=== PATIENT | female | born 1955 | race Caucasian/White ===

== ENCOUNTER 2019-11-19 15:23 | Inpatient (IN) | payer BC, OTHER ==
--- OUTSIDE RECORDS SUMMARY | 2019-11-19 16:09 | XMS REPORT | Continuity of Care Document ---
:1955 Author Organization [facility] Care Team Providers Name Role Phone [facility] Unavailable Un available Problems Problem Status Onset Classification Date Comments Sourc e Date Reported Unilateral primary 04/11/2019 [facility] osteoarthritis, left 019 knee Other enthesopathy of 05/19/2017 [facility] right foot 017 Type 2 diabetes Active Problem 01/11/2019 NE Primary mellitus without Car [facility]oc complications Depressive disorder, Active Problem 01/11/2019 NE Primary not elsewhere Care A ssoc classified Chronic obstructive Active Problem 01/11/2019 NE Primary pulmonary disease, C are Assoc unspecified Female stress Active Problem 01/11/2019 NE Pr imary incontinence Care As soc Anxiety disorder, Active Problem 01/11/2019 N E Primary unspecified Care Ass oc Vitamin D deficiency Active Problem 01/11/2019 NE Primary [facility] Major depressive Active Problem 01/11/2019 NE Primary disorder, single Car e Assoc episode, unspecified Adjustment disorder Active Problem 01/11/2019 NE Primary with depressed mood Care Assoc Morbid (severe) Active Problem 01/11/2019 NE Primary obesity due to excess Care Assoc calories Essential (primary) Active Problem 01/11/2019 NE Primary hypertension Care [facility] Neuropathy Active Problem 01/11/2019 NE Prima ry Care Assoc Esophageal reflux Active Problem 01/11/2019 N E Primary Care [facility] Mixed hyperlipidemia Active Problem 01/11/2019 NE Primary [facility] Hypothyroidism, Active Problem 01/11/2019 NE Primary unspecified Care Ass oc Hypothyroidism Active Problem 01/11/2019 NE P rimary Care Assoc Stress incontinence in Active Problem 01/11/2019 NE Primary female Care Assoc OA (osteoarthritis) Active Problem 01/11/2019 NE Primary [facility] Obesity, unspecified Active Problem 01/11/2019 NE Primary obesity severity, Ca re Assoc unspecified obesity type Morbid obesity due to Active Problem 01/11/2019 NE Primary excess calories Care Assoc Morbid obesity Active Problem 01/11/2019 NE P rimary Care [facility]oc Ischemic heart disease Active Problem 01/11/2019 NE Primary [facility] Type II or unspecified Active Problem 01/11/2019 NE Primary type diabetes mellitus Care Assoc without mention of complication, not stated as uncontrolled Benign essential Active Problem 01/11/2019 NE Primary hypertension Care [facility] Polyosteoarthritis, Active Problem 01/11/2019 NE Primary unspecified Care Ass oc Gastro-esophageal Active Problem 01/11/2019 N E Primary reflux disease without Care Assoc esophagitis Other specified Active Problem 01/11/2019 NE Primary hypothyroidism Care Assoc Constipation, Active Problem 01/11/2019 NE Pr imary unspecified Care Ass oc Other specified Active Problem 01/11/2019 NE Primary diabetes mellitus Ca re Assoc without complications Mixed incontinence Active Problem 01/11/2019 NE Primary urge and stress Care Assoc Age-related Active Problem 01/11/2019 NE Prim rekha osteoporosis without Care Assoc current pathological fracture Anxiety Active Problem 01/11/2019 NE Primar y Care Assoc Chronic obstructive Active Problem 01/11/2019 NE Primary pulmonary disease, C are Assoc unspecified COPD type Chronic constipation Active Problem 01/11/2019 NE Primary [facility] Other chronic pain Active Problem 01/11/2019 NE Primary Care [facility] Simple chronic Active Problem 01/11/2019 NE P rimary bronchitis [facility] As[facility] Allergic rhinitis due Active Problem 01/11/2019 NE Primary to pollen Care Assoc Chronic idiopathic Active Problem 01/11/2019 NE Primary constipation Care As soc Pure Active Problem 01/11/2019 NE Primar y hypercholesterolemia, Care Assoc unspecified Vitamin D deficiency, Active Problem 01/11/2019 NE Primary unspecified Care Ass [facility] Venous insufficiency Active Problem 01/11/2019 NE Primary [facility] Screening for Active Diagnosis 03/18/2017 NE Pr imary osteoporosis Care As soc Breast cancer Active Diagnosis 03/18/2017 NE Pr imary screening Care Assoc Dysuria Active Diagnosis 10/02/2018 NE Primar y Care [facility]oc Osteopenia of spine Active Diagnosis 07/07/2017 NE Primary [facility] Familial Active Problem 01/11/2019 NE Primar y hypercholesterolemia Care Assoc Disorder of bone, Active Diagnosis 03/18/2017 N E Primary unspecified Care Ass oc Osteoarthritis of both Active Problem 01/11/2019 NE Primary knees, unspecified C are Assoc osteoarthritis type Drug-induced Active Diagnosis 10/02/2018 NE Dori roberto constipation Care As [facility] Pain in left knee Active Diagnosis 12/29/2017 N E Primary Care [facility] Right foot pain Active Diagnosis 06/08/2017 NE Primary [facility] Need for shingles Active Diagnosis 05/15/2017 N E Primary vaccine Care Assoc Low back pain Active Diagnosis 05/06/2017 NE Pr imary Care Assoc Coronary artery Active Problem 01/11/2019 NE Primary disease involving Ca re Assoc [place] coronary artery of [place] heart without angina pectoris Slow transit Active Problem 01/11/2019 NE Dori roberto constipation Care [facility] Other secondary Active Diagnosis 11/22/2017 NE Primary osteoarthritis of both Care Assoc knees Osteopenia of lumbar Active Diagnosis 10/02/2018 NE Primary spine Care [facility] Suicide attempt Active Diagnosis 12/08/2017 NE Primary [facility] Aspiration pneumonia Active Diagnosis 11/22/2017 NE Primary due to vomit, Care A ssoc unspecified laterality, unspecified part of lung Adjustment insomnia Active Diagnosis 02/11/2018 NE Primary [facility] Gastroesophageal Active Problem 01/11/2019 NE Primary reflux disease without Care [facility] esophagitis Other constipation Active Diagnosis 11/22/2017 NE Primary [facility] Urge incontinence of Active Problem 01/11/2019 NE Primary urine Care [facility] PAD (peripheral artery Active Problem 01/11/2019 NE Primary disease) Care [facility] Acquired Active Problem 01/11/2019 NE Primar y hypothyroidism Care Assoc Urge incontinence Active Diagnosis 01/11/2019 N E Primary [facility] Pain in right knee Active Diagnosis 12/29/2017 NE Primary [facility] Hand, foot and mouth Active Diagnosis 09/26/2017 NE Primary disease Care Assoc NERY (obstructive sleep Active Problem 01/11/2019 NE Primary apnea) Care Assoc Spondylosis of Active Diagnosis 02/23/2018 NE P rimary lumbosacral region C are Assoc without myelopathy or radiculopathy Unspecified vitamin D Active Problem 06/30/2015 NE Primary deficiency [facility] As[facility] c Mixed hyperlipidemia Active Problem 06/30/2015 NE Primary Care [facility] Unspecified Active Problem 06/30/2015 NE Prim rekha hypothyroidism Care Assoc Depressive disorder, Active Problem 06/30/2015 NE Primary not elsewhere Care A ssoc classified incontinence Female Active Problem 06/30/2015 NE Primary stress Care Assoc Pure Active Problem 06/30/2015 NE Primar y hypercholesterolemia Care Assoc Diabetes mellitus Active Problem 06/30/2015 N E Primary without mention of C are Assoc complication, type II or unspecified type, uncontrolled Diabetes mellitus Active Problem 06/30/2015 N E Primary without mention of C are Assoc complication, type II or unspecified type, not stated as uncontrolled Esophageal reflux Active Problem 06/30/2015 N E Primary Care [facility] Morbid obesity Active Problem 06/30/2015 NE P rimary Care Assoc Hypertension benign Active Problem 06/30/2015 NE Primary [facility] Anxiety state, Active Diagnosis 10/24/2013 NE P rimary unspecified Care Ass oc Unspecified Active Diagnosis 10/24/2013 NE Prim rekha constipation Care As soc Urge incontinence Active Diagnosis 07/24/2014 N E Primary Care [facility] Obesity, unspecified Active Diagnosis 10/24/2013 NE Primary [facility] Other specified Active Diagnosis 02/18/2015 NE Primary acquired Care [facility] hypothyroidism Hypercholesterolemia Active Diagnosis 12/02/2013 NE Primary [facility] Reflux esophagitis Active Diagnosis 12/31/2013 NE Primary [facility] Obesity (BMI Active Diagnosis 01/21/2015 NE Dori mejia 30.0-34.9) Care Asso c Allergic rhinitis due Active Diagnosis 12/31/2013 NE Primary to pollen Care Assoc HTN (hypertension), Active Diagnosis 12/02/2013 NE Primary benign Care [facility]oc Depressed Active Diagnosis 12/31/2013 NE Primar y Care Assoc Depression Active Diagnosis 02/18/2015 NE Prima ry Care [facility]oc Anxiety Active Diagnosis 03/31/2014 NE Primar y Care Assoc Diabetes Active Diagnosis 01/15/2014 NE Primar y Care [facility] Benign hypertension Active Diagnosis 01/15/2014 NE Primary [facility] Cervicalgia Active Diagnosis 01/21/2015 NE Prim rekha Care Assoc GERD (gastroesophageal Active Diagnosis 02/18/2015 NE Primary reflux disease) Care Assoc Osteopenia Active Diagnosis 02/18/2015 NE Prima ry Care [facility]oc Urinary frequency Active Diagnosis 05/23/2014 N E Primary Care [facility]oc Obesity Active Diagnosis 10/10/2014 NE Primar y Care Assoc Immunization Active Diagnosis 03/31/2014 NE Dori mejia counseling Care Asso c Flu vaccine need Active Diagnosis 03/31/2014 NE Primary [facility] COPD (chronic Active Diagnosis 01/21/2015 NE Pr imary obstructive pulmonary Care Ass[facility] disease) Diabetes mellitus Active Diagnosis 02/18/2015 N E Primary Care [facility] Autonomic neuropathy Active Diagnosis 01/21/2015 NE Primary [facility] Bad odor of urine Active Diagnosis 07/24/2014 N E Primary Care [facility] Geniculate herpes Active Diagnosis 10/10/2014 N E Primary zoster infection Car e Assoc Acute bronchitis Active Diagnosis 08/03/2014 NE Primary [facility] Obesity (BMI 30-39.9) Active Diagnosis 02/18/2015 NE Primary [facility] Neuropathy Active Diagnosis 02/18/2015 NE Prima ry Care Assoc Cervicalgia Active Diagnosis 06/30/2015 NE Prim rekha Care Assoc Insomnia Active Diagnosis 06/30/2015 NE Primar y Care Assoc Other disorders of Active Diagnosis 06/30/2015 NE Primary autonomic nervous Ca re Assoc system Disorder of bone Active Diagnosis 03/30/2016 NE Primary density and structure, Care Assoc unspecified Encounter for Active Diagnosis 03/30/2016 NE Pr imary immunization Care As soc Fatigue Active Diagnosis 07/08/2015 NE Primar y Care Assoc Osteopenia Active Diagnosis 07/08/2015 NE Prima ry Care Assoc Breast screening Active Diagnosis 07/08/2015 NE Primary Care [facility] Immunization Active Diagnosis 07/08/2015 NE Dori mejia counseling Care Asso c Shoulder pain, left Active Diagnosis 07/08/2015 NE Primary Care [facility] Left anterior Active Diagnosis 03/23/2016 NE Pr imary fascicular block Car e Assoc Localized edema Active Diagnosis 03/30/2016 NE Primary Care [facility] Stress incontinence Active Diagnosis 03/30/2016 NE Primary (female) (male) Care Assoc Obstructive sleep Active Diagnosis 03/30/2016 N E Primary apnea (adult) Care A ssoc (pediatric) Herpes zoster without Active Diagnosis 05/04/2016 NE Primary complication Care As soc Memory change Active Problem 01/11/2019 NE Pr imary Care Assoc Bipolar 1 disorder Active Problem 01/11/2019 NE Primary Care [facility] Urinary tract Active Diagnosis 05/28/2018 NE Pr imary infection without Ca re Assoc hematuria, site unspecified Encounter for Active Diagnosis 04/13/2018 NE Pr imary gynecological Care A ssoc examination without abnormal finding Breast screening Active Diagnosis 04/13/2018 NE Primary [facility] acid replux Active Problem 09/27/2013 [facility] DIABETES MELLITUS Active Problem 09/27/2013 [facility] right foot pain Active Problem 09/27/2013 [facility] Acid reflux (finding) Active Problem 04/11/2019 [facility] Depressive disorder Active Problem 04/11/2019 [facility] (disorder) [facility] Diabetes mellitus Resolved Problem 04/11/2019 hgb A1c [facility] (disorder) came down and doctors took her off of meds Essential hypertension Active Problem 04/11/2019 [facility] (disorder) [facility] Hyperlipidemia Active Problem 04/11/2019 [facility] (disorder) [facility] Hypothyroidism Active Problem 04/11/2019 [facility] (disorder) [facility] right foot Active Problem 04/11/2019 [facility] pain(Confirmed) Sleep apnea (finding) Active Problem 04/11/2019 [facility] Type B viral hepatitis Active Problem 04/11/2019 [facility] (disorder) Medications Medication Details Route Status Patient Ordering Order Source Instructions Provider Date Cephalexin 500 mg = 2 No Longer caps, Cap, Active 2018 Oral, QID, first dose 04/08/19 21:00:00 CDT, Urinary Tract Infection multivitamin 1 tabs, No Longer with minerals Tab, Oral, Active 2018 Daily, first dose 04/08/19 9:00:00 CDT Vitamin C 500 mg = 1 No Longer tabs, Tab, Active 2018 Oral, Daily, first dose 04/08/19 9:00:00 CDT Xarelto 10 mg = 1 No Longer tabs, Tab, Active 2018 Oral, Daily, first dose 04/08/19 9:00:00 CDT myrbetriq 50 mg, No Longer Misc, Oral, Active 2018 Daily, first dose 04/08/19 9:00:00 CDT, Patient's Own Meds duloxetine 60 mg = 1 No Longer caps, Active 2018 Cap-DR, Oral, Daily, first dose 04/08/19 9:00:00 CDT, Patient's Own Meds rexulti 1 mg, Misc, No Longer Oral, Active 2018 Daily, first dose 04/08/19 9:00:00 CDT, Patient's Own Meds Omeprazole 20 mg = 1 No Longer caps, Active 2019 Cap-EC, Oral, Daily, first dose 04/08/19 9:00:00 CDT Vancomycin MRSA [id number] 10/08/ [facility] colonizatio 2019 n or infection, 1 gm, IV Piggyback, q12hr, infuse over 60 minutes, first dose 04/07/19 22:00:00 CDT, stop date 04/08/19 13:08:00 CDT Pravastatin 20 mg = 1 No Longer tabs, Tab, Active 2019 Oral, qHS, first dose 04/07/19 21:00:00 CDT, Patient's Own Meds Hydroxyzine 25 mg = 1 No Longer tabs, Tab, Active 2019 Oral, qPM PRN for anxiety, first dose 04/07/19 21:00:00 CDT, Patient's Own Meds Lisinopril 20 mg = 1 No Longer tabs, Tab, Active 2018 Oral, BID, first dose 04/07/19 21:00:00 CDT, Patient's Own Meds ferrous sulfate 325 mg = 1 No Longer I tabs, Tab, Active 2018 Oral, BIDPC, first dose 04/07/19 20:00:00 CDT Cefazolin 1 gm, IV [id number] Piggyback, 2019 q8hr, infuse over 30 minutes, first dose 04/07/19 19:00:00 CDT, stop date 04/08/19 13:08:00 CDT, Prophylaxis Buspirone 30 mg, Tab, No Longer Oral, BID, Active 2018 first dose 04/07/19 17:00:00 CDT, Patient's Own Meds Ketorolac 15 mg = 1 No Longer mL, Active 2019 Injection, IV Push, q8hr PRN for breakthroug h pain, first dose 04/07/19 14:47:00 CDT, stop date 04/12/19 14:30:00 CDT Hydroxyzine 25 mg = 1 Inactive tabs, Tab, 2019 Oral, QID PRN for anxiety, first dose 04/07/19 14:47:00 CDT, Patient's Own Meds Acetaminophen Notes: Max No Longer 325 MG / 4gm Active 2019 Hydrocodone acetaminoph Bitartrate 10 en in 24 MG Oral Tablet hours [[place] 325] Acetaminophen Notes: Max No Longer 325 MG / 4gm Active 2018 Hydrocodone acetaminoph Bitartrate 7.5 en in 24 MG Oral Tablet hours [[place] 7.5/325] Naloxone 0.4 mg = 1 No Longer mL, Active 2018 Injection, IV Push, q2min PRN for other (see comment), first dose 04/07/19 14:43:00 CDT Benadryl 25 mg = 0.5 No Longer mL, 2018 Injection, IM, q6hr PRN for itching, first dose 04/07/19 14:43:00 CDT Morphine 30 mL, [employer] Inactive Dose (mg): 2018 1, Lockout Interval (min): 5, Limit Amount (mg): 5, Limit Period (hr): 1, Continuous Rate (mg/hr): 0, Loading Dose (mg): 2, RN Adm Bolus (mg): 1, Bolus Dose Lockout (hr): 1, IV, [employer], start date 04/07/19 14:43:00 CDT Zofran ODT 4 mg = 1 No Longer tabs, Active 2018 Tab-Dis, Oral, q6hr PRN for nausea/vomi ting, first dose 04/07/19 14:43:00 CDT Bisacodyl 10 mg = 1 No Longer supp, Supp, Active 2018 PA, Daily PRN for constipatio n, first dose 04/07/19 14:43:00 CDT promethazine 12.5 mg, IV No Longer IVPB Piggyback, Active 2018 q4hr PRN for nausea/vomi ting, infuse over 15 minutes, first dose 04/07/19 14:43:00 CDT Temazepam 15 mg = 1 No Longer caps, Cap, Active 2018 Oral, Once a day (at bedtime) PRN for sleep, first dose 04/07/19 14:43:00 CDT Fleet Enema 133 mL, No Longer Enema, PA, Active 2018 Once PRN for constipatio n, first dose 04/07/19 14:43:00 CDT Milk of 30 mL, No Longer I Magnesia Susp, Oral, Active 2019 qHS PRN for constipatio n, first dose 04/07/19 14:43:00 CDT Acetaminophen Notes: Max No Longer [facility] 4gm Active 2018 acetaminoph en in 24 hours Saline Lock 10 mL, No Longer I Flush Soln, IV Active 2019 Push, As Indicated, first dose 04/07/19 14:43:00 CDT LR 1,000 mL 1,000 mL, No Longer [facility] IV, 60 Active 2019 mL/hr, start date 04/07/19 14:43:00 CDT, Change rate to 45ml/hr if using [employer] or convert to Saline Lock Demerol HCl 12.5 mg = Inactive [facility] 0.5 mL, 2019 Injection, IV Push, q5min PRN for shivers, order duration: 4 doses, first dose 04/07/19 13:17:00 CDT, stop date Limited # of times Fentanyl 50 mcg = 1 Inactive [facility]2018 Injection, IV Push, q5min PRN for Pain Mild (1-3), order duration: 2 doses, first dose 04/07/19 13:17:00 CDT, stop date Limited # of times promethazine 12.5 mg, IV Inactive [facility] IVPB Piggyback, 2019 Once PRN for nausea/vomi ting, infuse over 15 minutes, first dose 04/07/19 13:17:00 CDT Morphine 1 mg, IV Inactive [facility] Push, q5min 2019 PRN for Pain Moderate (4-6), order duration: 5 doses, first dose 04/07/19 13:17:00 CDT, stop date Limited # of times Misc Medication 900 mL, Inactive [facility] Soln-IV, 2019 IV, Once, first dose 04/07/19 13:06:00 CDT, stop date 04/07/19 13:06:00 CDT neostigmine 3 mg = 3 Inactive [facility] mL, 2019 Injection, IV, Once, first dose 04/07/19 12:38:00 CDT, stop date 04/07/19 12:38:00 CDT glycopyrrolate 0.2 mg = 1 Inactive 04/07/ [facility] mL, 2019 Injection, IV, Once, first dose 04/07/19 12:38:00 CDT, stop date 04/07/19 12:38:00 CDT propofol 50 mg = 5 Inactive 04/07/ [facility] mL, 2018 Emulsion, IV, Once, first dose 04/07/19 12:34:00 CDT, stop date 04/07/19 12:34:00 CDT glycopyrrolate 0.2 mg = 1 Inactive 04/07/ [facility] mL, 2018 Injection, IV, Once, first dose 04/07/19 12:15:00 CDT, stop date 04/07/19 12:15:00 CDT glycopyrrolate 0.2 mg = 1 Inactive [facility] mL, 2018 Injection, IV, Once, first dose 04/07/19 11:43:00 CDT, stop date 04/07/19 11:43:00 CDT vancomycin 1 gm, Inactive [facility] Powder-Inj, 2019 IV, Once, first dose 04/07/19 11:15:00 CDT, stop date 04/07/19 11:15:00 CDT rocuronium 40 mg = 4 Inactive [facility] mL, 2018 Injection, IV, Once, first dose 04/07/19 11:10:00 CDT, stop date 04/07/19 11:10:00 CDT ondansetron 4 mg = 2 Inactive [facility] mL, 2018 Injection, IV, Once, first dose 04/07/19 11:00:00 CDT, stop date 04/07/19 11:00:00 CDT dexamethasone 4 mg = 1 Inactive 04/07/ [facility] mL, 2019 Injection, IV, Once, first dose 04/07/19 11:00:00 CDT, stop date 04/07/19 11:00:00 CDT propofol 150 mg = 15 Inactive [facility] mL, 2018 Emulsion, IV, Once, first dose 04/07/19 10:58:00 CDT, stop date 04/07/19 10:58:00 CDT rocuronium 10 mg = 1 Inactive [facility] mL, 2019 Injection, IV, Once, first dose 04/07/19 10:58:00 CDT, stop date 04/07/19 10:58:00 CDT succinylcholine 100 mg = 5 Inactive [facility] mL, 2018 Injection, IV, Once, first dose 04/07/19 10:58:00 CDT, stop date 04/07/19 10:58:00 CDT fentaNYL 100 mcg = 2 Inactive [facility] mL, 2018 Injection, IV, Once, first dose 04/07/19 10:58:00 CDT, stop date 04/07/19 10:58:00 CDT lidocaine 100 gm = 5 Inactive [facility], 2018 Injection, IV, Once, first dose 04/07/19 10:58:00 CDT, stop date 04/07/19 10:58:00 CDT ceFAZolin 2 gm, Inactive Powder-Inj, 2019 IV, Once, first dose 04/07/19 10:58:00 CDT, stop date 04/07/19 10:58:00 CDT ropivacaine 275 mg = 55 Inactive [facility]2018 Injection, Nerve Block, Once, first dose 04/07/19 10:44:00 CDT, stop date 04/07/19 10:44:00 CDT fentaNYL 100 mcg = 2 Inactive [facility]2018 Injection, IV, Once, first dose 04/07/19 10:31:00 CDT, stop date 04/07/19 10:31:00 CDT midazolam 2 mg = 2 Inactive [facility], 2018 Injection, IV, Once, first dose 04/07/19 10:30:00 CDT, stop date 04/07/19 10:30:00 CDT Ciprofloxacin 500 mg = 1 Active 500 MG Oral tabs, Oral, 2019 Tablet [Cipro] q12hr, 0 Refill(s) Vancomycin Increased Inactive MRSA rate 2019 (facility/p rocedure), 1 gm, IV Piggyback, Once, infuse over 60 minutes, first dose 04/07/19 10:00:00 CDT, stop date 04/07/19 10:00:00 CDT Cefazolin 2 gm, IV Inactive 10/07/ [facility] Piggyback, 2019 Once, infuse over 30 minutes, first dose 04/07/19 10:00:00 CDT, stop date 04/07/19 10:00:00 CDT, Prophylaxis Pain Ease 1 sprays, Inactive topical spray [place], [facility], 2019 Once, first dose 04/07/19 10:00:00 CDT, stop date 04/07/19 10:00:00 CDT, Apply topically for 4 - 10 seconds from a distance of 3 - 7 inches from the procedure site LR 1,000 mL 1,000 mL, Inactive IV, 100 2019 mL/hr, start date 04/07/19 9:18:00 CDT, For Adults Aspirin 81 mg, Active [facility] Oral, 2019 Daily, stopping 03/31, 0 Refill(s) Rexulti 1 mg, Oral, Active I Daily, 0 2019 Refill(s) Prednisone 20 mg, Active [facility] Oral, 2018 Daily, 0 Refill(s) Pravastatin 20 mg, Active [facility] Oral, qHS, 2018 0 Refill(s) Omeprazole 20 mg, Active [facility] Oral, 2019 Daily, 0 Refill(s) Myrbetriq 50 mg, Active [facility] Oral, 2018 Daily, 0 Refill(s) Lisinopril 20 mg, Active [facility] Oral, BID, 2018 0 Refill(s) Linzess 72 mcg, Active [facility] Oral, qHS, 2018 0 Refill(s) Hydroxyzine 25 mg, Active [facility] Oral, BID, 2018 0 Refill(s) duloxetine 60 mg, Active [facility] Oral, BID, 2018 0 Refill(s) Buspirone 30 mg, Active [facility] Oral, BID, 2018 0 Refill(s) Levothyroxine 1 tablet on Orally Active 88 MCG Orally [place] 10/22 Sodium an empty Once a day 2018 Primary stomach in Care the morning Assoc Levaquin 1 tablet Orally Active 500 mg Orally [place] Once a day 2018 Primary [facility] [place] Thyroid 1 tablet on Orally Active 90 MG Orally [place] 10/17 NE an empty Once a day 2019 Primary stomach Care Assoc Levaquin 1 tablet Orally Active 500 mg Orally [place] 07/19/ NE Once a day 2019 Primary Care Assoc Prolia 60mg/ml Subcutane Active 60 MG/ML [place] 07/19/ NE ous Subcutaneous 2019 Primary every 6 months Care Assoc Omeprazole 1 capsule Orally Active 20 mg Orally [place] 07/19/ NE Once a day 2019 Primary Care [facility]oc Gabapentin 2 capsule Orally Active 400 MG Orally [place] 07/12/ NE twice a day 2019 Primary (bid) Care Assoc Macrobid 1 capsule Orally Active 100 mg Orally [place] NE with food every 12 hrs 2019 Primary Care Assoc Cephalexin 1 tablet Orally Active 500 mg Orally [place] 05/20/ NE every 12 hrs 2018 Primary Care [facility] Prolia as directed Subcutane Active 60 MG/ML [place] NE ous Subcutaneous 2018 Primary everry 6 Care months Assoc Lomaira 1 tablet Orally Active 8 MG Orally [place] 02/20/ NE before Three times a 2018 Primary meals day Care Assoc Levaquin 1 tablet Orally Active 500 mg Orally [place] 02/06/ NE Once a day 2018 Primary [facility] Uribel 1 capsule Orally Active 118 MG Orally [place] 01/24/ NE three times a 2018 Primary day (tid) Care Assoc disabled as directed n/a Active n/a n/a daily [place] NE placard 2018 Primary Care [facility] Macrobid 1 capsule Orally Active 100 mg Orally [place] NE with food every 12 hrs 2018 Primary Care [facility] Saxenda 3.0mg Subcutane Active 18 MG/3ML [place] 12/27/ NE ous Subcutaneous 2018 Primary daily Care Assoc NovoFine as directed SQ Active 32G X 6 MM SQ [place] 12/27/ NE daily 2018 Primary [facility] Linzess 1 capsule orally Active 72 mcg orally [place] 11/21/ NE Daily 2018 Primary Care [facility]oc Restoril 1 capsule Orally Active 15 MG Orally [place] 11/21/ NE at bedtime Once a day 2018 Primary as needed Care Assoc Levaquin 1 tablet Orally Active 750 MG Orally [place] 11/21/ NE Once a day 2017 Primary Care [facility] Folic Acid 1 tablet Orally Active 800 MCG Orally [place] 10/16/ NE Once a day 2017 Primary [facility] [employer] Thyroid 1 tablet on Orally Active 120 MG Orally [place] 09/10/ NE an empty Once a day 2017 Primary stomach Care Assoc Lisinopril 1 tablet [facility] twice a day 2017 Primary (bid) Care Assoc [employer] Thyroid 1 tablet on Orally Active 90 MG [facility] E an empty Once a day 2017 Primary stomach Care Assoc Myrbetriq 1 tablet Orally Active 50 mg Orally [place] NE Once a day 2017 Primary Care [facility]oc morphine 1 mg = 0.1 Inactive 05/17/ [facility] mL, 2016 Injection, IV Push, q5min PRN for Pain Moderate (4-6), order duration: 5 doses, first dose 05/17/17 11:30:00 [employer], stop date Limited # of times Demerol HCl 12.5 mg = Inactive 05/17/ [facility] 0.5 mL, 2016 Injection, IV Push, q5min PRN for Pain Mild (1-3), order duration: 4 doses, first dose 05/17/17 11:30:00 ASS[employer], stop date Limited # of times promethazine 12.5 mg, IV Inactive 05/17/ [facility] IVPB Piggyback, 2016 Once PRN for nausea/vomi ting, infuse over 15 minutes, first dose 05/17/17 11:30:00 ASSISTANT PROFESS[employer] Misc Medication 600 mL, Inactive 05/17/ [facility] Soln-IV, 2016 IV, Once, first dose 05/17/17 11:26:00 ASSISTANT PROF[employer], stop date 05/17/17 11:26:00 ASSISTANT PROF[employer] propofol 550 mg = 55 Inactive 05/17/ [facility] mL, 2016 Emulsion, IV, Once, first dose 05/17/17 11:22:00 ASSISTANT PROF[employer] THE[employer], stop date 05/17/17 11:22:00 ASSISTANT PROF[employer] THEATER ondansetron 4 mg = 2 Inactive 05/17/ [facility] mL, 2016 Injection, IV, Once, first dose 05/17/17 10:48:00 ASSISTANT PROF[employer], stop date 05/17/17 10:48:00 ASSISTANT PROF[employer] THEATER ceFAZolin 2 gm, Inactive [facility] Powder-Inj, 2016 IV, Once, first dose 05/17/17 10:42:00 ASSISTANT PROF[employer], stop date 05/17/17 10:42:00 ASSISTANT PROFESSOR [employer] THEATER dexamethasone 4 mg = 1 Inactive [facility] mL, 2016 Injection, IV, Once, first dose 05/17/17 10:37:00 ASSISTANT PROFESS[employer] THE[employer], stop date 05/17/17 10:37:00 ASSISTANT PROFESSOR [employer] THEATER fentaNYL 50 mcg = 1 Inactive [facility] mL, 2016 Injection, IV, Once, first dose 05/17/17 10:37:00 ASSISTANT PROFESSOR [employer] THE[employer], stop date 05/17/17 10:37:00 ASSISTANT PROFESSOR [employer] THEATER fentaNYL 50 mcg = 1 Inactive 05/17/ [facility] mL, 2016 Injection, IV, Once, first dose 05/17/17 10:31:00 ASSISTANT PROFESS[employer] THE[employer], stop date 05/17/17 10:31:00 ASSISTANT PROF[employer]OR [employer] THEATER midazolam 2 mg = 2 Inactive [facility] mL, 2016 Injection, IV, Once, first dose 05/17/17 10:25:00 ASSISTANT PROF[employer] THE[employer], stop date 05/17/17 10:25:00 ASSISTANT PROF[employer] THEATER Cefazolin 2 gm, Inactive [facility] Soln-IV, IV 2016 Piggyback, Once, infuse over 30 minutes, first dose 05/17/17 10:00:00 ASSISTANT PROF[employer]OR [employer], stop date 05/17/17 10:00:00 ASSISTANT PROF[employer], Prophylaxis Pain Ease 1 sprays, Inactive [facility] topical spray [place], TOP, 2016 Once, first dose 05/17/17 10:00:00 ASSISTANT PROFESSOR [employer] THEATER, stop date 05/17/17 10:00:00 ASSISTANT PROFESSOR [employer] THEATER, Apply topically for 4 - 10 seconds from a distance of 3 - 7 inches from the procedure site LR 1,000 mL 1,000 mL, Inactive [facility] IV, 100 2017 mL/hr, start date 05/17/17 9:13:00 ASSISTANT PROFESSOR [employer] THEATER, For Adults Zostavax as directed Subcutane Active Jesus 05/11/ ous UNT/0.65ML 2017 Primary Subcutaneous Care one time Assoc cognium cognium, No Longer [facility] 100mg Active 2016 daily, 0 Refill(s) simvastatin 10 10 mg = 1 Active [facility] mg oral tablet tabs, Oral, 2017 qHS, # 30 tabs, 0 Refill(s) simvastatin 10 10 mg = 1 No Longer mg oral tablet tabs, Oral, Active 2016 qHS, # 30 tabs, 0 Refill(s) Misc Medication min and No Longer multivitami Active 2016 n supplement, 0 Refill(s) 5-HTP 5-HTP, No Longer 100mg Active 2016 daily, 0 Refill(s) allergy relief allergy No Longer relief, Active 2016 25mg daily, 0 Refill(s) Cranberry 1 tab, No Longer Oral, Active 2016 Daily, 0 Refill(s) Vitamin D 1 tabs, No Longer chewable 5000 Oral, BID, 2016 units # 30 tabs, 0 Refill(s) Esomeprazole 20 1 tabs, No Longer MG / Naproxen Oral, BID, 2016 500 MG Enteric # 60 tabs, Coated Tablet 0 Refill(s) [Vimovo 500/20] Symbicort 80 2 puffs, Active mcg-4.5 mcg/inh INH, BID, 2016 inhalation 6.9 gm, 0 aerosol Refill(s) Linzess 145 mcg 145 mcg = 1 Active oral capsule caps, Oral, 2016 Daily, 0 Refill(s) linaclotide 145 mcg = 1 No Longer 0.145 MG Oral caps, Oral, Active 2016 Capsule Daily, 0 [Linzess] Refill(s) azilsartan 40 mg = 1 No Longer medoxomil 40 MG tabs, Oral, Active 2016 Oral Tablet BID, 0 [Edarbi] Refill(s) Alprazolam 0.5 0.5 mg = 1 Active MG Oral Tablet tabs, Oral, 2016 [Xanax] QID, PRN for anxiety, 0 Refill(s) Alprazolam 0.5 0.5 mg = 1 No Longer MG Oral Tablet tabs, Oral, 2016 [Xanax] QID, PRN for anxiety, 0 Refill(s) levothyroxine 125 mcg, Active Oral, 2016 Daily, 0 Refill(s) Levemir FlexPen 35 units, No Longer Subcutaneou Active 2016 s, BID, 0 Refill(s) clopidogrel 75 75 mg = 1 Active [facility] mg oral tablet tabs, Oral, 2017 Daily, # 30 tabs, 0 Refill(s) Thyroxine 88 mcg, Active [facility] Oral, 2016 Daily, 0 Refill(s) clopidogrel 75 75 mg = 1 Active [facility] mg oral tablet tabs, Oral, 2016 qHS, stopping 03/31, # 30 tabs, 0 Refill(s) alendronate 70 70 mg = 1 Active [facility] mg oral tablet tabs, Oral, 2017 qMonday, # 4 tabs, 0 Refill(s) Alendronic acid 70 mg = 1 Active [facility] 70 MG Oral tabs, Oral, 2017 Tablet qMonday, # 4 tabs, 0 Refill(s) Viibryd 1 tablet Orally Active 20 mg Orally [place] [place] with food Once a day 2017 [facility] Viibryd 1 tablet Orally Active 10 mg Orally [place] with food Once a day 2017 [facility] Levaquin 1 tablet Orally Active 500 mg Orally [place] Once a day 2017 [facility] Macrobid 1 capsule Orally Active 100 mg Orally [place] NE with food twice a day 2017 [facility] (bid[facility] Prolia as directed Subcutane Active 60 MG/ML [facility] 02/14/ NE ous Subcutaneous 2017 Primary every 6 months [facility] Prolia as directed Subcutane Active 60 MG/ML [place] 02/14/ NE ous Subcutaneous 2017 Primary every 6 months [facility] Contour Next as directed as Active n/a as [place] Lancets directed directed BID 2017 [facility] Contour Next as directed as Active n/a as [place] [facility] Test Strips directed directed BID 2016 [facility] Trulicity once a week sq Active 0.75mg/0.5ml [place] as directed sq once a week 2017 [facility] Macrobid 1 capsule Orally Active 100 MG Orally [place] // NE with food every 12 hrs 2017 [facility] Bactrim DS 1 tablet Orally Active 800-160 MG [place] 01/31/ NE Orally Twice a 2017 [facility] day [facility] Trulicity once a week sq Active 0.75mg/0.5ml [place] 01/31/ NE as directed sq every 2 wks 2016 [facility] Bactrim DS 1 tablet Orally Active 800-160 MG [place] 01/31/ NE Orally Twice a 2017 [facility] day [facility] Macrobid 1 capsule Orally Active 100 MG Orally [place] 01/31/ NE with food every 12 hrs 2016 [facility] BuPROPion HCl 1 tablet Orally Active 75 MG Orally [place] 09/18/ N E daily 2016 [facility] BuPROPion HCl 1 tablet Orally Active 75 MG Orally [place] 09/18/ N E daily 2016 [facility] [place] as directed SQ Active 31G X 8 MM SQ [facility] 08/16/ NE 5/16" twice a day 2016 [facility] (bid[facility] [place] as directed SQ Active 31G X 8 MM SQ [facility] 08/16/ NE 5/16" twice a day 2016 [facility] ([facility] VESIcare 1 tablet Orally Active 10 MG Orally [place] 06/01/ NE Once a day 2016 [facility] Macrobid 1 capsule Orally Active 100 MG Orally [place] 06/01/ NE with food twice a day 2016 [facility] ([facility] Macrobid 1 capsule Orally Active 100 MG Orally [place] 06/01/ NE with food twice a day 2016 [facility] (bid[facility] VESIcare 1 tablet Orally Active 10 MG Orally [place] 06/01/ NE Once a day 2016 [facility] Vimovo 1 tablet Orally Active 500-20 MG [facility] 03/21/ NE before Orally Twice a 2016 Primary meals day [facility] Edarbi 1 tablet Orally Active 40 MG Orally [place] 03/21/ NE twice a day 2016 [facility] (bid[facility] Edarbi 1 tablet Orally Active 40 mg Orally [place] 03/21/ NE twice a day 2016 [facility] (bid[facility] Vimovo 1 tablet Orally Active 500-20 MG [place] 03/21/ NE before Orally Twice a 2016 Primary meals day [facility] Omeprazole 1 tablet by mouth Active 20MG by mouth [place] once a day 2016 [facility] Omeprazole 1 tablet by mouth Active 20MG by mouth [place] once a day 2016 [facility] Adipex-P 1 tablet Orally Active 37.5 MG Orally [place] NE Once a day 2015 [facility] Adipex-P 1 tablet Orally Active 37.5 MG Orally [place] NE Once a day 2014 [facility] Ultram 1 tablet as Orally Active 50 mg Orally [place] NE needed twice a day 2014 [facility] (bid[facility] Acyclovir 1 tablet Orally Active 400 MG Orally [place] NE Three times a 2015 [facility] Neurontin 1 tablet Orally Active 600 MG Orally [place] NE Three times a 2015 [facility] Ultram 1 tablet as Orally Active 50 mg Orally [place] NE needed twice a day 2015 [facility] (bid[facility] Neurontin 1 tablet Orally Active 600 MG Orally [place] NE Three times a 2014 [facility] day [facility] Acyclovir 1 tablet Orally Active 400 MG Orally [place] NE Three times a 2014 [facility] day [facility] [place] 1 tablet as Orally Active 5-325 MG [facility] NE needed Orally three 2014 Primary times a day Care (tid) Assoc [place] 1 tablet as Orally Active 5-325 MG [place] NE needed Orally three 2014 Primary times a day Care (tid) Assoc Valtrex 1 tablet Orally Active 1 GM Orally [place] NE three times a 2014 Primary day (tid) Care [facility] Neurontin 1 capsule Orally Active 300 MG Orally [place] NE twice a day 2014 [facility] (bid[facility] Symbicort 2 puffs Inhalatio Active 80-4.5 MCG/ACT [facility] NE n Inhalation 2014 Primary Twice a day [facility] Symbicort 2 puffs Inhalatio Active 80-4.5 MCG/ACT [facility] 07/24/ NE n Inhalation 2015 Primary Twice a day [facility] Zithromax Z-Ezequiel 2 tablets Orally Active 250 MG Orally [place] 07/24 NE on the Once a day 2015 Primary first day, Care then 1 Assoc tablet daily for 4 days Levemir as directed subcutane Active 100 unit/ml [place] 07/08/ NE FlexTouch ous subcutaneous 2015 Primary 30u bid Care [facility] Victoza 1.8 Subcutane Active 18 MG/3ML [facility] 06/27/ NE ous Subcutaneous 2014 Primary Once a day [facility] Victoza 0.2 ml Subcutane Active 18 MG/3ML [place] 06/20/ NE ous Subcutaneous 2013 Primary Once a day [facility] Victoza 1.8 Subcutane Active 18 MG/3ML [facility] 06/08/ NE ous Subcutaneous 2014 Primary Once a day [facility] Fosamax 1 tablet Orally Active 70 MG Orally [place] 04/16/ NE weekly 2013 [facility] Macrobid 1 capsule Orally Active 100 mg Orally [place] NE with food twice a day 2013 [facility] (bid[facility] BD Pen as directed SQ Active 31.156 SQ [facility] 01/08/ NE three times a 2013 Primary day (tid) Care [facility] BD Pen as directed SQ Active 31........5.16 [facility] 01/08/ NE SQ three times 2014 Primary a day (tid) Care [facility] BD Pen as directed SQ Active 31.156 SQ [place] 01/08/ NE three times a 2013 Primary day (tid) Care [facility] Medrol (Ezequiel) as directed Orally Active 4 mg Orally as [place] 12/05 NE directed 2013 [facility] Flonase 1 spray in Nasally Active 50 MCG/ACT [place] 12/01/ NE each Nasally twice 2014 Primary nostril a day (bid) Care [facility] Jolie Allergy 1 tablet Orally Active 180 MG Orally [place] 11/28/ NE Once a day 2013 [facility] Nasonex 2 sprays in Nasally Active 50 MCG/ACT [place] 11/28/ NE each Nasally twice 2014 Primary nostril a day (bid) Care [facility]oc Linzess 1 capsule by mouth Active 145 MCG by Jesus NE mouth Once a 2013 [facility] day [facility] Xanax 1 tablet by mouth Active 0.5 MG by Jesus NE mouth four 2013 Primary times a day Care (qid) as Assoc needed (prn) Demerol HCl 12.5 mg = Inactive Abdirahmanoctenzin 0.5 mL, 2013 Surgical Injection, Hospital IV Push, [place] q5min PRN for Pain Mild (1-3), order duration: 4 doses, first dose 09/25/13 9:18:00 CDT, stop date Limited # of times morphine 2 mg = 0.2 Inactive [facility] mL, 2013 Surgical Injection, Hospital IV Push, [place] q5min PRN for pain severe (7-10), order duration: 5 doses, first dose 09/25/13 9:18:00 CDT, stop date Limited # of times promethazine 12.5 mg, IV Inactive [facility] IVPB Piggyback, 2013 Surgical Once PRN [facility] nausea/vomi ting, infuse over 15 minutes, first dose 09/25/13 9:18:00 CDT Misc Medication 250 mL, Inactive Deb Soln-IV, 2013 Surgical IV, Once, Hospital first dose [place] 09/25/13 8:48:00 CDT, stop date 09/25/13 8:48:00 CDT propofol 50 mg = 5 Inactive Deb mL, 2013 Surgical Emulsion, Hospital IV, Once, [place] first dose 09/25/13 8:41:00 CDT, stop date 09/25/13 8:41:00 CDT propofol 50 mg = 5 Inactive [facility], 2013 Surgical Emulsion, Hospital IV, Once, [place] first dose 09/25/13 8:37:00 CDT, stop date 09/25/13 8:37:00 CDT propofol 100 mg = 10 Inactive Deb mL, 2013 Surgical Emulsion, Hospital IV, Once, [place] first dose 09/25/13 8:32:00 CDT, stop date 09/25/13 8:32:00 CDT propofol 50 mg = 5 Inactive Deb mL, 2013 Surgical Emulsion, Hospital IV, Once, [place] first dose 09/25/13 8:28:00 CDT, stop date 09/25/13 8:28:00 CDT propofol 100 mg = 10 Inactive Deb mL, 2013 Surgical Emulsion, Hospital IV, Once, [place] first dose 09/25/13 8:23:00 CDT, stop date 09/25/13 8:23:00 CDT propofol 100 mg = 10 Inactive Deb mL, 2013 Surgical Emulsion, Hospital IV, Once, [place] first dose 09/25/13 8:17:00 CDT, stop date 09/25/13 8:17:00 CDT lidocaine 3 mL, Inactive Deb Injection, 2013 Surgical IV, Once, Hospital first dose [place] 09/25/13 8:15:00 CDT, stop date 09/25/13 8:15:00 CDT fentanyl 100 mcg = 2 Inactive Deb mL, 2013 Surgical Injection, Hospital IV, Once, [place] first dose 09/25/13 8:14:00 CDT, stop date 09/25/13 8:14:00 CDT midazolam 2 mg = 2 Inactive Deb mL, 2013 Surgical Implant, Hospital IV, Once, [place] first dose 09/25/13 8:14:00 CDT, stop date 09/25/13 8:14:00 CDT cefazolin 1 gm, Inactive [place] Soln-IV, IV 2013 Surgical Piggyback, [facility] Once, [place] infuse over 30 minutes, first dose 09/25/13 7:00:00 CDT, stop date 09/25/13 7:00:00 CDT ethyl chloride 1 sprays, Inactive [facility] topical spray [place], TOP, 2014 Surgic al Once, first Hospital dose [place] 09/25/13 7:00:00 CDT, stop date 09/25/13 7:00:00 CDT Sodium Chloride 250 mL, IV, Inactive [facility] 0.9% 250 mL 25 mL/hr, 2013 Surgical start date [facility] 09/25/13 [place] 6:54:00 CDT Naprosyn 1 tablet as by mouth Active 500 mg by Jesus needed mouth twice a 2013 Primary day (bid) [facility] Soma 1 tablet as by mouth Active 350 MG by Jesus needed mouth twice a 2013 Primary day (bid) Care [facility] Xanax 1 tablet by mouth No Longer 0.25 MG by Jesus Active mouth twice a 2013 Primary day (bid) Care [facility]oc clonazepam 0.5 0.25 mg = Active mg oral tablet 0.5 tabs, 2013 Surgica l Oral, BID, Hospital 0 Refill(s) [place] clonazepam 0.5 0.25 mg = No Longer 09/19/ [facility] mg oral tablet 0.5 tabs, Active 2013 Oral, BID, 0 Refill(s) clonazepam 0.5 0.25 mg = No Longer 09/19/ [facility] mg oral tablet 0.5 tabs, Active 2013 Oral, BID, 0 Refill(s) Seroquel 50 mg 50 mg = 1 Active oral tablet tabs, Oral, 2013 Surgical Daily, 0 Hospital Refill(s) [place] Seroquel 50 mg 50 mg = 1 No Longer 09/19/ [facility] oral tablet tabs, Oral, Active 2013 Daily, 0 Refill(s) quetiapine 50 50 mg = 1 No Longer 09/19/ [facility] MG Oral Tablet tabs, Oral, Active 2013 [Seroquel] Daily, 0 Refill(s) Milk Thistle 2, Oral, Active Daily, 0 2013 Surgical Refill(s) [facility] Flintstones 1 tabs, Active with Iron oral Chewed, 2013 Surgical tablet, Daily, 0 Hospital chewable Refill(s) [place] Milk Thistle 2, Oral, No Longer 09/19/ [facility] Daily, 0 Active 2013 Refill(s) Flintstones 1 tabs, No Longer 09/19/ [facility] with Iron oral Chewed, Active 2013 tablet, Daily, 0 chewable Refill(s) lisinopril 40 40 mg = 1 Active mg oral tablet tabs, Oral, 2013 Surgi pooja Daily, 0 Hospital Refill(s) [place] Vitamin D 1 tabs, No Longer 03/21/ [facility] chewable 5000 Oral, Active 2013 Surgical units Daily, # 30 Hospital tabs, 0 [place], Refill(s) [facility] lisinopril 40 40 mg = 1 No Longer 09/19/ [facility] mg oral tablet tabs, Oral, Active 2013 Daily, 0 Refill(s) Victoza 18 mg/3 1.8 mg, Active 09/19/ [facility] mL subcutaneous Subcutaneou 2013 Surg ical solution s, Daily, 0 Hospital Refill(s) [place] lovastatin 40 40 mg = 1 Active 09/19/ [facility] mg oral tablet tabs, Oral, 2013 Surgi pooja Daily, 0 Hospital Refill(s) [place] omeprazole 20 20 mg = 1 Active 09/19/ [facility] mg oral delayed tabs, Oral, 2013 Surg ical release tablet Daily, 0 Hospital Refill(s) [place] 3 ML 1.8 mg, No Longer 09/19/ [facility] liraglutide 6 Subcutaneou Active 2013 MG/ML Prefilled s, Daily, 0 Syringe Refill(s) [Victoza] Lovastatin 40 40 mg = 1 No Longer 09/19/ [facility] MG Oral Tablet tabs, Oral, Active 2013 Daily, 0 Refill(s) Omeprazole 20 20 mg = 1 No Longer 09/19/ [facility] MG Enteric tabs, Oral, 2013 Coated Tablet Daily, 0 Refill(s) Viibryd 40 mg 40 mg = 1 Active 09/19/ [facility] oral tablet tabs, Oral, 2013 Surgical Daily, 0 Hospital Refill(s) [place] Levemir FlexPen 30 units, Active [facility] Subcutaneou 2013 Surgical s, BID, 0 Hospital Refill(s) [place] Sanctura 20 mg 20 mg = 1 Active [facility] oral tablet tabs, Oral, 2013 Surgical BID, 0 Hospital Refill(s) [place] vilazodone 40 mg = 1 No Longer 09/19/ [facility] hydrochloride tabs, Oral, Active 2013 40 MG Oral Daily, 0 Tablet Refill(s) [Viibryd] Levemir FlexPen 30 units, No Longer 09/19/ [facility] Subcutaneou Active 2013 s, BID, 0 Refill(s) trospium 20 mg = 1 No Longer 09/19/ [facility] chloride 20 MG tabs, Oral, Active 2013 Oral Tablet BID, 0 [Sanctura] Refill(s) Sanctura 20 mg 20 mg = 1 No Longer 09/19/ [facility] oral tablet tabs, Oral, Active 2013 BID, 0 Refill(s) [place] 1 tablet by mouth Active 20 mg by mouth [place] Once a day 2013 [facility] [place] 1 tablet by mouth Active 20 mg by mouth [place] NE Once a day 2013 [facility] Sanct[place] 1 tablet by mouth Active 20 mg by mouth [place] Once a day 2013 [facility] Victoza 1.8 mg SQ Active 6MG/ML SQ [place] NE daily [facility] Levemir Flexpen 35 units Subcutane Active 100 UNIT/ML [place] NE ous Subcutaneous Primary twice a day Care (bid) Assoc Fish Oil 1 capsule Orally Active 1000 MG Orally [place] NE Once a day [facility] Potassimin 1 tablet Orally Active 75 MG Orally [place] NE Once a day [facility] Linzess 1 capsule Orally Active 145 MCG Orally [place] NE Once a day [facility] Osteo Bi-Flex not defined Orally Active - Orally [place] Triple Strength [facility] Calcium + D 2 tablet Orally Active 600-200 [place] NE with food MG-UNIT Orally Primary twice a day Care (bid) Assoc Fosamax 1 tablet Orally Active 70 MG Orally [place] NE weekly [facility] Tumeric not defined NA Active [place] [facility] Levothyroxine 1 tablet orally Active 125MCG orally [place] NE Sodium daily [facility] Darifenacin 2 tablet Orally Active 15 MG Orally [place] NE Hydrobromide ER with liquid Once a day [facility] Allergy Relief 1 tablet as Orally Active 25 MG Orally [place] NE needed every 8 hrs [facility] Flintstones 1 tablet Orally Active Multivitamin [place] NE Plus Iron Orally Once a Primary day Care [facility] [place] not defined Orally Active 450 MG Orally [place] NE [facility] Naproxen 1 tablet Orally Active 500MG Orally [place] NE twice a day Primary (bid) [facility] [place] BD ultra as directed intraderm Active 4mm x 32g [place] NE fine pen ally intradermally Primary needles three times a Care day (tid) Assoc Folic Acid 1 tablet Orally Active 800 MCG Orally [place] NE Once a day [facility] Diabetes not defined Orally Active THERAPY PACK [place] NE Support Orally [facility] CoQ-10 1 capsule Orally Active 30 MG Orally [place] NE with a meal Once a day [facility] Multi-betic not defined Orally Active - Orally [place] NE Diabetes [facility] Cinnamon not defined Orally Active 500 MG Orally [place] [facility] Vitamin B-12 1 tablet by mouth Active 1000 MCG by [place] NE mouth Once a Primary day [facility] Acidophilus not defined Orally Active - Orally [place] [facility] Viibryd 1 tablet Orally Active 40MG Orally [place] NE daily [facility] Niacin 1 tablet Orally Active 250 MG Orally [place] NE Once a day [facility] Xanax 1 tablet PO Active 0.5 MG PO four [place] NE times a day Primary (qid) Care [facility] Levemir Flexpen 35 units Subcutane Active 100 UNIT/ML [place] NE ous Subcutaneous Primary twice a day Care (bid) Assoc One Touch use as Active as directed [place] Glucometer with directed bid Primary test strips and Care lancets Assoc Diabetes not defined Orally Active THERAPY PACK [place] NE Support Orally [facility] Acidophilus not defined Orally Active - Orally [place] [facility] Folic Acid 1 tablet Orally Active 800 MCG Orally [place] NE Once a day [facility] Osteo Bi-Flex not defined Orally Active - Orally [place] NE Triple Strength [facility] Nocatee 3 1 capsule Orally Active 1000 MG Orally [place] NE Once a day [facility] Xanax 1 tablet PO Active 0.5 MG PO four [place] NE times a day Primary (qid) Care [facility]oc Multi-betic not defined Orally Active - Orally [place] NE Diabetes [facility] Benadryl 1 tablet as Orally Active 25 MG Orally [place] NE Allergy needed once every Primary night [facility] [place] not defined Orally Active 450 MG Orally [place] [facility] Fish Oil 1 capsule Orally Active 1000 MG Orally [place] NE Once a day [facility] Calcium + D 2 tablet Orally Active 600-200 [place] NE with food MG-UNIT Orally Primary twice a day Care (bid) Assoc Fosamax 1 tablet Orally Active 70 MG Orally [place] NE weekly [facility] Potassimin 1 tablet Orally Active 75 MG Orally [place] NE Once a day [facility] Vitamin B-12 1 tablet by mouth Active 1000 MCG by [place] NE mouth Once a Primary day [facility] Flintstones 1 tablet Orally Active Multivitamin [place] NE Plus Iron Orally Once a Primary day Care [facility] Allergy Relief 1 tablet as Orally Active 25 MG Orally [place] NE needed every 8 hrs [facility] Cinnamon not defined Orally Active 500 MG Orally [place] NE [facility] Clopidogrel 1 tablet Orally Active 75 mg Orally [place] NE Bisulfate Once a day [facility] Linzess 1 capsule Orally Active 145 MCG Orally [place] NE Once a day [facility] Darifenacin 2 tablet Orally Active 15 MG Orally [place] NE Hydrobromide ER with liquid Once a day [facility] Niacin 1 tablet Orally Active 250 MG Orally [place] NE Once a day [facility] Vitamin D 5 tablets Orally Active 2000 UNIT [place] NE Orally Once a Primary day [facility] CoQ-10 1 capsule Orally Active 30 MG Orally [place] NE with a meal Once a day [facility] Benadryl 1 tablet as Orally Active 25 MG Orally [place] NE Allergy needed once every Primary night [facility] Fosfree not defined Orally Active - Orally [place] NE [facility] Pravastatin 1 tablet Orally Active 20 mg Orally [place] NE Sodium once every Primary night [facility] Lisinopril 1 tablet Orally Active 20 mg Orally [place] NE twice a day Primary (bid) Care [facility]oc AZO Bladder not defined Orally Active - Orally [place] NE Control/Go-Less [facility] Cymbalta 1 capsule Orally Active 20 mg Orally [place] NE Once a day [facility] Aspir-81 1 tablet Orally Active 81 MG Orally [place] NE Once a day [facility] Pentazocine-Nal not defined Oral Active 50-0.5 MG Oral [facility] NE oxone HCl [facility] Viibryd 1 tablet Orally Active 10 mg Orally [place] NE with food Once a day [facility] Pravastatin 1 tablet Orally Active 20 mg Orally [place] NE Sodium once every Primary night [facility] Fosfree 2 tablet Orally Active - Orally once [place] NE every night [facility] One A Day Multi as directed by mouth Active by mouth once [place] NE Vitamin a day [facility] Cymbalta 1 capsule Orally Active 60 MG Orally [place] NE Once a day [facility] HydrOXYzine HCl TAKE 1 Oral Active 25 MG Oral [place] NE TABLET BY Primary MOUTH EVERY Care DAY Assoc NEEDED BusPIRone HCl TAKE 1 Oral Active 15 MG Oral [place] NE TABLET BY Primary MOUTH TWICE Care A DAY Assoc Aripiprazole TAKE 1 Oral Active 10 MG Oral [place] NE TABLET BY Primary MOUTH EVERY Care DAY Assoc Cymbalta 1 capsule Orally Active 30 MG Orally [place] NE Once a day [facility] BusPIRone HCl TAKE 1 Orally Active 30 MG Orally [place] NE TABLET BY bid Primary MOUTH TWICE Care A DAY Assoc Viibryd take 1 by mouth Active 40MG by mouth [place] NE tablet once a day Primary daily Care Assoc Vitamin D 1 capsule Orally Active 1000 UNIT [facility] NE [facility] Lovastatin TAKE 1 NA Active 40MG [facility] TABLET [facility] Lisinopril 1 tablet Orally Active 20 mg Orally [place] Once a day [facility] Omeprazole 1 tablet by mouth Active 20MG by mouth [place] once a day [facility] Levothyroxine 1 po qd NA Active 125MCG [place] Sodium [facility] Victoza 1.8 Subcutane Active 18 MG/3ML [place] [facility] ous Subcutaneous Primary [facility] day [facility] Levemir Flexpen inject 30 Subcutane Active 30 mg [place] [facility] E units sq ous Subcutaneous Primary twice a day twice a day Care (bid) [facility] Flonase 1 spray in Nasally Active 50 MCG/ACT [place] each Nasally twice Primary nostril a day (bid) [facility] Naproxen TAKE 1 NA Active 500 MG [facility] TABLET BY Primary MOUTH TWICE Care A DAY [facility] NEEDED Naproxen TAKE 1 NA Active 500 mg [place] TABLET BY Primary MOUTH TWICE Care A DAY [facility] NEEDED Levothyroxine 1 tablet orally Active 125MCG orally [place] Sodium daily [facility] Omeprazole 1 tablet by mouth Active 20MG by mouth [place] once a day [facility] Marycarmen BD ultra as directed intraderm Active 4mm x 32g [place] fine pen ally intradermally Primary needles three times a Care day (tid) Assoc Omeprazole 1 tablet by mouth Active 20MG by mouth [place] once a day [facility] Cephalexin 1 tablet Orally Active 500 mg Orally [place] four times a Primary day (qid) [facility] Lisinopril 1 tablet Orally Active 20 mg Orally [place] twice a day Primary (bid[facility] Sleep Aid 1 tablet at Orally Active 25 MG Orally [place] bedtime as Once a day [facility] needed [facility] Duloxetine HCl 1 capsule Orally Active 30 MG Orally [place] Once a day [facility] Naproxen 1 tablet Orally Active 375 MG Orally [place] with food every 12 hrs Primary or milk as Care needed Assoc Omeprazole 1 capsule Orally Active 20 mg Orally [place] Once a day [facility] Linzess 1 capsule orally Active 72 mcg orally [place] Daily [facility] Meloxicam 1 tablet Orally Active 15 MG Orally [place] Once a day [facility] Cephalexin 1 tablet Orally Active 500 mg Orally [place] four times a Primary day (qid) [facility] Allergies, Adverse Reactions, Alerts Substance Category Reaction Severity Reaction Status Date Comments S ource type Reported sulfa Adverse Info Not Adverse Active NE Reaction Available Reaction 8 [facility] Bactrim Assertion Drug Active [facility] allergy sulfamethoxazo Assertion Drug Active [facility] le allergy sulfa drugs Assertion Drug Active [facility] allergy Immunizations Immunization Date Given Site Status Last Updated Comments [facility] Influenza (use 03/21/2016 completed [facility] rim[facility] Influenza (use 07/05/2015 completed [facility] Pneumococcal 23 07/05/2015 completed [facility] (commerical) [facility] Influenza 03/16/2014 completed NE Primar y (correct) [facility] Results Order Name Results Value Reference Date Interpretation Comments Lily rce Range LABORATORY Anion Gap - 14 6 - 17 04/07 LABORATORY BUN - POC 22 8 - 26 04/07 LABORATORY Creatinine - 0.9 0.6 - 1.3 04/07 LABORATORY Hematocrit - 38 35 - 48 04/07 LABORATORY Hemoglobin - 12.9 12 - 16 04/07 LABORATORY Sodium - POC 142 138 - 144 04/07 LABORATORY TCO2 - POC 29 22 - 32 04/07 LABORATORY Ionized Ca - 1.22 1.12 - 04/07 POC 1.32 LABORATORY Glucose - POC 129 74 - 118 04/07 LABORATORY Chloride - 104 101 - 111 04/07 LABORATORY Potassium - 4.4 3.6 - 5.1 04/07 LABORATORY Basophil # 0.1 0.0 - 0.2 03/26 LABORATORY Eosinophil % 0.2 0.0 - 0.5 03/26 LABORATORY Basophil % 0.7 0.0 - 1.0 03/26 LABORATORY Neutrophil # 5.6 1.5 - 8.1 03/26 LABORATORY Lymphocyte # 1.5 1.0 - 5.5 03/26 LABORATORY Monocyte # 0.8 0.0 - 0.8 03/26 LABORATORY Eosinophil # 1.9 0.0 - 4.0 03/26 LABORATORY Lymphocyte % 18.7 20.0 - 03/26 [facility] 40.0 2019 LAB[facility]ATORY Neutrophil % 68.9 45.0 - 03/26 [facility] 75.0 2019 LAB[facility]ORY Monocyte % 9.8 2.0 - 12.0 03/26 LABORATORY RDW 13.8 11.5 - 03/26 [facility] 14.5 LABORATORY Hematocrit 36.4 36.0 - 03/26I 48.0 LABORATORY MCV 96.8 80.0 - 03/26 [facility] 98.0 /2018 LABORATORY MCH 32.2 27.0 - 03/26 [facility] 31.0 LABORATORY MCHC 33.3 32.0 - 03/26I 36.0 /2018 LABORATORY White Blood 8.2 3.7 - 10.4 03/26 Count /2018 LABORATORY Red Blood 3.76 4.20 - 03/26 Cell Count 5.40 /2018 LABORATORY Hemoglobin 12.1 12.0 - 03/26 16.0 LABORATORY Platelet 210 133 - 450 03/26 LABORATORY MPV 8.4 7.4 - 10.4 03/26 LABORATORY Results Reported 03/26 (03/26/19 12:26 PM) LABORATORY UA Squam Few Few 03/26 Epithelial LABORATORY UA Mucous Few None Seen 03/26 LABORATORY UA Bacteria Occasional None Seen 03/26 LABORATORY UA WBC 52 0 - 5 03/26 LABORATORY UA RBC 4 0 - 2 03/26 LABORATORY UA Hyaline 1 0 - 2 03/26 Casts LABORATORY UA Glucose Negative Negative 03/26 LABORATORY UA Protein Negative Negative 03/26 LABORATORY UA pH 5.0 5.0 - 8.0 03/26 LABORATORY UA Spec Grav 1.019 <=1.030 03/26 LABORATORY UA Nitrite Positive Negative 03/26 LABORATORY UA <=1.0 0.1 - 1.0 03/26 Urobilinogen LABORATORY UA Blood Negative Negative 03/26 LABORATORY UA Bili Negative Negative 03/26 LABORATORY UA Ketones Negative Negative 03/26 LABORATORY UA Leuk Est Moderate Negative 03/26 LABORATORY UA Turbidity Slight Clear 03/26 LABORATORY UA Color Yellow Yellow 03/26 LABORATORY MRSA Nasal Positive 03/26 Result Swab Comment: "Significant Findings called to Macrina Johnson at 03/27/2019 10:32 by bf. Read
Back OK."
Inte rpretive Data: The Merlene LightCycler MRSA assay is a qualitative test for
the direct detection of nasal colonization with methicillin-r esistant
Staphylococcu s aureus (MRSA) to aid in the prevention and control of MRSA
infe ctions in healthcare settings. A positive result does not indicate an
infect ion or require treatment. A negative result does not exclude colonization< br/>or infection.
The polymerase chain reaction (PCR) assay detects a proprietary sequence
indicative of the integration of the SCCmec cassette into the Staphylococcu s
aureus chromosome, indicating the presence of MRSA DNA. The assay utilizes FDA
clear ed IVD reagents. Performance characteristi cs have been verified by the
[facility] within the [facility]. The
[facility] is authorized under the Clinical Laboratory
Improvement Amendment of 1988 (CLIA-88) to perform high complexity testing. LABORATORY Alk Phos 82 39 - 136 03/26 Result Comment: The pediatric reference ranges for this test represent a CLSI-based
transferenc e of the CALIPER database of pediatric reference intervals to the
[employer] [place] analyzer (Clinical Biochemistry 46 (2012): 2583-8067). [facility] has not internally validated these reference<br/ >ranges and therefore they should be used only in the context of a thorough
clinical assessment. LABORATORY Calcium Level 9.1 8.5 - 10.5 03/26 LABORATORY ALT 30 0 - 65 03/26 LABORATORY AST 20 0 - 37 03/26 LABORATORY Bilirubin 0.3 0.2 - 1.3 03/26I LABORATORY eGFR 62 03/26 Result Comment: The eGFR is calculated using the CKD-EPI formula. In most young, healthy
i ndividuals the eGFR will be >90 mL/min/1.73m2 . The eGFR declines with age. An
eGFR of 60-89 may be normal in some populations, particularly the elderly, for
whom the CKD-EPI formula has not been extensively validated. Use of the eGFR is
not recommended in the following populations:< br/>Individua ls with unstable creatinine concentration s, including
patients and those with serious co-morbid conditions.<b r/>Patients with extremes in muscle mass or diet.
The data above are obtained from the National Kidney Disease Education Program
( NKDEP) which additionally recommends that when the eGFR is used in patients<br/& gt;with extremes of body mass index for purposes of drug dosing, the eGFR should
be multiplied by the estimated BMI. LABORATORY Alb/Glob 1.2 0.7 - 1.6 03/26 [facility] Ratio LABORATORY Protein Total 7.1 6.4 - 8.4 03/26 [facility] /2018 LABORATORY Albumin Lvl 3.8 3.5 - 5.0 03/26 [facility] /2018 LABORATORY Globulin 3.3 2.7 - 4.2 03/26 [facility] LABORATORY Glucose Lvl 94 70 - 99 03/26 Result [facility] Comment: Adult reference range values reflect the clinical guidelines
of the [place] [employer]. LABORATORY BUN 25 7 - 22 03/26 [facility] LABORATORY Creatinine 0.97 0.50 - 03/26 [facility] 1.40 LABORATORY AGAP 12.3 10.0 - 03/26 [facility] 20.0 LABORATORY Carbon 30 24 - 32 03/26 [facility] Dioxide Level /2019 LABORATORY Sodium Level 143 135 - 145 03/26 [facility] LABORATORY Chloride 106 95 - 109 03/26 [facility] Level /2019 LABORATORY Potassium 5.3 3.5 - 5.1 03/26 [facility] Level /2019 LABORATORY PTT 28.5 22.9 - 03/26 Result [facility] 35.8 Comment: Heparin Therapeutic Range: 67 - 87 Seconds LABORATORY PT 12.6 12.0 - 03/26 [facility] 14.7 LABORATORY INR 0.96 0.85 - 03/26 Result [facility] 1.17 Comment: RECOMMENDED RANGES FOR PROTIME INR:
2.0-3.0 for most medical and surgical thromboemboli c states.
2.5-3.5 for artificial heart valves and recurrent embolism.<br/ >INR SHOULD BE USED ONLY FOR PATIENTS ON STABLE ANTICOAGULANT THERAPY. LABORATORY PTT 28.6 22.9 - 05/10 Result [facility] 35.8 Comment: Heparin Therapeutic Range: 57 - 92 Seconds LABORATORY eGFR 82 05/10 Result [facility] Comment: The eGFR is calculated using the CKD-EPI formula. In most young, healthy
i ndividuals the eGFR will be >90 mL/min/1.73m2 . The eGFR declines with age. An
eGFR of 60-89 may be normal in some populations, particularly the elderly, for
whom the CKD-EPI formula has not been extensively validated. Use of the eGFR is
not recommended in the following populations:< br/>Individua ls with unstable creatinine concentration s, including
patients and those with serious co-morbid conditions.<b r/>Patients with extremes in muscle mass or diet.
The data above are obtained from the National Kidney Disease Education Program
( NKDEP) which additionally recommends that when the eGFR is used in patients<br/& gt;with extremes of body mass index for purposes of drug dosing, the eGFR should
be multiplied by the estimated BMI. LABORATORY BUN 23 7 - 22 05/10 [facility] /2017 LABORATORY Creatinine 0.78 0.50 - 05/10 [facility] 1.40 /2017 LABORATORY Glucose Lvl 85 70 - 99 05/10 Result [facility] /2017 Comment: Adult reference range values reflect the clinical guidelines
of the [place] [employer]. LABORATORY Chloride 104 95 - 109 05/10 [facility] Level /2017 LABORATORY Potassium 4.8 3.5 - 5.1 05/10 [facility] Level /2017 LABORATORY Sodium Level 140 135 - 145 05/10 [facility] 2017 LABORATORY Calcium Level 9.1 8.5 - 10.5 05/10 [facility] /2017 LABORATORY AGAP 10.8 10.0 - 05/10 [facility] 20.0 2017 LABORATORY Carbon 30 24 - 32 05/10 [facility] Dioxide Level /2017 LABORATORY PT 13.2 12.0 - 05/10 [facility] 14.7 2017 LABORATORY INR 1.00 0.85 - 05/10 Result [facility] 1.17 Comment: RECOMMENDED RANGES FOR PROTIME INR:
2.0-3.0 for most medical and surgical thromboemboli c states.
2.5-3.5 for artificial heart valves and recurrent embolism.<br/ >INR SHOULD BE USED ONLY FOR PATIENTS ON STABLE ANTICOAGULANT THERAPY. LABORATORY Hematocrit 37.8 36.0 - 05/10 [facility] 48.0 /2017 LABORATORY Hemoglobin 12.5 12.0 - 05/10 [facility] 16.0 2017 LABORATORY Magnesium 2.1 1.8 - 2.4 05/10 [facility] 2017 Pathology Reports No Data Provided for This Section Diagnostic Reports No Data Provided for This Section Consultation Notes No Data Provided for This Section Discharge Summaries No Data Provided for This Section History and Physicals No Data Provided for This Section Vital Signs Vital Sign Value Date Comments Source Systolic (mm Hg) 112 04/09/2019 [facility] Diastolic (mm Hg) 75 04/09/2019 [facility] Respitory Rate 18 04/09/2019 [facility] Heart Rate 82 04/09/2019 [facility] Systolic (mm Hg) 153 04/09/2019 [facility] Diastolic (mm Hg) 78 04/09/2019 [facility] Heart Rate 82 04/09/2019 [facility] Respitory Rate 16 04/09/2019 [facility] Heart Rate 89 04/09/2019 [facility] Systolic (mm Hg) 147 04/09/2019 [facility] Diastolic (mm Hg) 67 04/09/2019 [facility] Respitory Rate 16 04/09/2019 [facility] Temperature Oral (F) 37.5 Marjorie 04/09/2019 [facility] Temperature Oral (F) 37.3 Marjorie 04/09/2019 [facility] Temperature Oral (F) 38.0 Marjorie 04/08/2019 [facility] Temperature Oral (F) 36.1 Marjorie 04/07/2019 [facility] Temperature Oral (F) 36.4 Marjorie 04/07/2019 [facility] Peripheral Pulse Rate 74 04/07/2019 [facility] Peripheral Pulse Rate 77 04/07/2019 [facility] Temperature Oral (F) 36.9 Marjorie 04/07/2019 [facility] Weight Measured 127 04/07/2019 [facility] Height 162.54 cm 04/07/2019 [facility] Peripheral Pulse Rate 82 03/26/2019 [facility] Height 162.54 cm 03/26/2019 [facility] Weight Measured 127.5 03/26/2019 [facility] Weight 262.4 10/01/2018 [facility] Height 64 10/01/2018 [facility] Temperature Oral (F) 98.7 F 10/01/2018 NE [facility] Heart Rate 92 10/01/2018 [facility] Diastolic (mm Hg) 73 10/01/2018 [facility] Systolic (mm Hg) 134 10/01/2018 [facility] Weight 260.2 09/24/2018 [facility] Height 64 09/24/2018 [facility] Temperature Oral (F) 98.6 F 09/24/2018 NE [facility] Heart Rate 82 09/24/2018 [facility] Diastolic (mm Hg) 70 09/24/2018 [facility] Systolic (mm Hg) 124 09/24/2018 [facility] Weight 275.0 07/19/2018 [facility] Height 64 07/19/2018 [facility] Temperature Oral (F) 99.1 F 07/19/2018 NE [facility] Heart Rate 90 07/19/2018 [facility] Diastolic (mm Hg) 70 07/19/2018 [facility] Systolic (mm Hg) 118 07/19/2018 [facility] Weight 265.8 07/11/2018 [facility] Height 64 07/11/2018 [facility] Temperature Oral (F) 98.4 F 07/11/2018 NE [facility] Heart Rate 100 07/11/2018 [facility] Diastolic (mm Hg) 80 07/11/2018 [facility] Systolic (mm Hg) 128 07/11/2018 [facility] Weight 259.5 05/20/2018 [facility] Height 64 05/20/2018 [facility] Temperature Oral (F) 98.5 F 05/20/2018 NE [facility] Heart Rate 77 05/20/2018 [facility] Diastolic (mm Hg) 77 05/20/2018 [facility] Systolic (mm Hg) 131 05/20/2018 [facility] Weight 252.0 04/11/2018 [facility] Height 64 04/11/2018 [facility] Temperature Oral (F) 98.2 F 04/11/2018 NE [facility] Heart Rate 98 04/11/2018 [facility] Diastolic (mm Hg) 68 04/11/2018 [facility] Systolic (mm Hg) 100 04/11/2018 [facility] Weight 238 02/20/2018 [facility] Height 64 02/20/2018 [facility] Temperature Oral (F) 98.0 F 02/20/2018 [facility] Heart Rate 93 02/20/2018 [facility] Diastolic (mm Hg) 68 02/20/2018 [facility] Systolic (mm Hg) 108 02/20/2018 [facility] Weight 237 02/06/2018 [facility] Height 64 02/06/2018 [facility] Temperature Oral (F) 98.8 F 02/06/2018 [facility] Heart Rate 83 02/06/2018 [facility] Diastolic (mm Hg) 90 02/06/2018 [facility] Systolic (mm Hg) 107 02/06/2018 [facility] Weight 238.2 01/24/2018 [facility] Height 64 01/24/2018 [facility] Temperature Oral (F) 98.6 F 01/24/2018 [facility] Heart Rate 90 01/24/2018 [facility] Diastolic (mm Hg) 59 01/24/2018 [facility] Systolic (mm Hg) 149 01/24/2018 [facility] Weight 244.0 01/10/2018 [facility] Height 64 01/10/2018 [facility] Temperature Oral (F) 98.0 F 01/10/2018 [facility] Heart Rate 88 01/10/2018 [facility] Diastolic (mm Hg) 50 01/10/2018 [facility] Systolic (mm Hg) 149 01/10/2018 [facility] Weight 251.8 12/27/2017 [facility] Height 64 12/27/2017 [facility] Temperature Oral (F) 98.6 F 12/27/2017 [facility] Heart Rate 85 12/27/2017 [facility] Diastolic (mm Hg) 60 12/27/2017 [facility] Systolic (mm Hg) 122 12/27/2017 [facility] Weight 249.4 12/14/2017 [facility] Height 64 12/14/2017 [facility] Temperature Oral (F) 98.9 F 12/14/2017 [facility] Heart Rate 81 12/14/2017 [facility] Diastolic (mm Hg) 68 12/14/2017 [facility] Systolic (mm Hg) 141 12/14/2017 [facility] Weight 249.0 12/13/2017 [facility] Height 64 12/13/2017 [facility] Temperature Oral (F) 98.7 F 12/13/2017 [facility] Heart Rate 76 12/13/2017 [facility] Diastolic (mm Hg) 53 12/13/2017 [facility] Systolic (mm Hg) 114 12/13/2017 [facility] Weight 251.0 12/06/2017 [facility] Height 64 12/06/2017 [facility] Temperature Oral (F) 87 F 12/06/2017 [facility] Heart Rate 98.1 12/06/2017 [facility] Diastolic (mm Hg) 55 12/06/2017 [facility] Systolic (mm Hg) 102 12/06/2017 [facility] Weight 248.8 11/29/2017 [facility] Height 64 11/29/2017 [facility] Temperature Oral (F) 99.2 F 11/29/2017 [facility] Heart Rate 83 11/29/2017 [facility] Diastolic (mm Hg) 68 11/29/2017 [facility] Systolic (mm Hg) 125 11/29/2017 [facility] Weight 248 11/21/2017 [facility] Height 64 11/21/2017 [facility] Temperature Oral (F) 99.3 F 11/21/2017 [facility] Heart Rate 81 11/21/2017 [facility] Diastolic (mm Hg) 89 11/21/2017 [facility] Systolic (mm Hg) 139 11/21/2017 [facility] Weight 260.4 10/16/2017 [facility] Height 64 10/16/2017 [facility] Temperature Oral (F) 99.0 F 10/16/2017 [facility] Heart Rate 92 10/16/2017 [facility] Diastolic (mm Hg) 62 10/16/2017 [facility] Systolic (mm Hg) 132 10/16/2017 [facility] Weight 263 09/24/2017 [facility] Height 64 09/24/2017 [facility] Temperature Oral (F) 98.9 F 09/24/2017 [facility] Heart Rate 76 09/24/2017 [facility] Diastolic (mm Hg) 56 09/24/2017 [facility] Systolic (mm Hg) 135 09/24/2017 [facility] Weight 269 09/10/2017 [facility] Height 64 09/10/2017 [facility] Temperature Oral (F) 97.5 F 09/10/2017 [facility] Heart Rate 90 09/10/2017 [facility] Diastolic (mm Hg) 93 09/10/2017 [facility] Systolic (mm Hg) 152 09/10/2017 [facility] Weight 265.8 08/17/2017 [facility] Height 64 08/17/2017 [facility] Temperature Oral (F) 98.6 F 08/17/2017 [facility] Heart Rate 75 08/17/2017 [facility] Diastolic (mm Hg) 86 08/17/2017 [facility] Systolic (mm Hg) 134 08/17/2017 [facility] Weight 267.6 07/05/2017 [facility] Height 64 07/05/2017 [facility] Temperature Oral (F) 98.7 F 07/05/2017 [facility] Heart Rate 73 07/05/2017 [facility] Diastolic (mm Hg) 80 07/05/2017 [facility] Systolic (mm Hg) 142 07/05/2017 [facility] Weight 272.6 06/06/2017 [facility] Height 64 06/06/2017 [facility] Temperature Oral (F) 98.3 F 06/06/2017 [facility] Heart Rate 74 06/06/2017 [facility] Diastolic (mm Hg) 73 06/06/2017 [facility] Systolic (mm Hg) 136 06/06/2017 [facility] Systolic (mm Hg) 133 05/17/2017 [facility] Diastolic (mm Hg) 58 05/17/2017 [facility] Heart Rate 69 05/17/2017 [facility] Respitory Rate 12 05/17/2017 [facility] Systolic (mm Hg) 119 05/17/2017 [facility] Diastolic (mm Hg) 62 05/17/2017 [facility] Heart Rate 71 05/17/2017 [facility] Respitory Rate 15 05/17/2017 [facility] Systolic (mm Hg) 133 05/17/2017 [facility] Diastolic (mm Hg) 58 05/17/2017 [facility] Temperature Oral (F) 36.5 Marjorie 05/17/2017 [facility] Heart Rate 72 05/17/2017 [facility] Weight Measured 123.38 05/17/2017 [facility] Height 165.10 cm 05/17/2017 [facility] Peripheral Pulse Rate 71 05/17/2017 [facility] Temperature Oral (F) 36.8 Marjorie 05/17/2017 [facility] Weight 275.4 05/11/2017 [facility] Height 64 05/11/2017 [facility] Temperature Oral (F) 98.5 F 05/11/2017 [facility] Heart Rate 71 05/11/2017 [facility] Diastolic (mm Hg) 81 05/11/2017 [facility] Systolic (mm Hg) 132 05/11/2017 [facility] Temperature Oral (F) 36.7 Marjorie 05/10/2017 [facility] Peripheral Pulse Rate 70 05/10/2017 [facility] Height 165.10 cm 05/10/2017 [facility] Weight Measured 123.7 05/10/2017 [facility] Weight 278.6 05/03/2017 [facility] Height 64 05/03/2017 [facility] Temperature Oral (F) 98.5 F 05/03/2017 [facility] Diastolic (mm Hg) 83 05/03/2017 [facility] Systolic (mm Hg) 150 05/03/2017 [facility] Weight 279.2 04/26/2017 [facility] Height 64 04/26/2017 [facility] Temperature Oral (F) 98.5 F 04/26/2017 [facility] Heart Rate 74 04/26/2017 [facility] Diastolic (mm Hg) 68 04/26/2017 [facility] Systolic (mm Hg) 122 04/26/2017 [facility] Weight 281.0 02/14/2017 [facility] Height 64 02/14/2017 [facility] Temperature Oral (F) 99.4 F 02/14/2017 [facility] Heart Rate 87 02/14/2017 [facility] Diastolic (mm Hg) 96 02/14/2017 [facility] Systolic (mm Hg) 106 02/14/2017 [facility] Weight 281.4 01/31/2017 [facility] Height 64 01/31/2017 [facility] Temperature Oral (F) 98.0 F 01/31/2017 [facility] Heart Rate 81 01/31/2017 [facility] Diastolic (mm Hg) 80 01/31/2017 [facility] Systolic (mm Hg) 108 01/31/2017 [facility] Weight 284.6 11/30/2016 [facility] Height 64 11/30/2016 [facility] Temperature Oral (F) 98.6 F 11/30/2016 [facility] Heart Rate 78 11/30/2016 [facility] Diastolic (mm Hg) 71 11/30/2016 [facility] Systolic (mm Hg) 133 11/30/2016 [facility] Weight 307.6 09/15/2016 [facility] Height 64 09/15/2016 [facility] Temperature Oral (F) 98.5 F 09/15/2016 [facility] Heart Rate 76 09/15/2016 [facility] Diastolic (mm Hg) 55 09/15/2016 [facility] Systolic (mm Hg) 102 09/15/2016 [facility] Weight 312.0 06/01/2016 [facility] Height 64 06/01/2016 [facility] Temperature Oral (F) 98.6 F 06/01/2016 [facility] Heart Rate 90 06/01/2016 [facility] Diastolic (mm Hg) 89 06/01/2016 [facility] Systolic (mm Hg) 122 06/01/2016 [facility] Weight 317.6 04/20/2016 [facility] Height 64 04/20/2016 [facility] Temperature Oral (F) 98.8 F 04/20/2016 [facility] Heart Rate 80 04/20/2016 [facility] Diastolic (mm Hg) 103 04/20/2016 [facility] Systolic (mm Hg) 135 04/20/2016 [facility] Weight 311.4 03/21/2016 [facility] Height 64 03/21/2016 [facility] Temperature Oral (F) 98.8 F 03/21/2016 [facility] Diastolic (mm Hg) 82 03/21/2016 [facility] Systolic (mm Hg) 152 03/21/2016 [facility] Weight 307.8 02/09/2016 [facility] Height 64 02/09/2016 [facility] Temperature Oral (F) 99.0 F 02/09/2016 [facility] Heart Rate 86 02/09/2016 [facility] Diastolic (mm Hg) 84 02/09/2016 [facility] Systolic (mm Hg) 159 02/09/2016 [facility] Weight 295.4 07/05/2015 [facility] Height 64 07/05/2015 [facility] Temperature Oral (F) 98.6 F 07/05/2015 [facility] Heart Rate 102 07/05/2015 [facility] Diastolic (mm Hg) 77 07/05/2015 [facility] Systolic (mm Hg) 118 07/05/2015 [facility] Weight 301.4 06/04/2015 [facility] Height 64 06/04/2015 [facility] Temperature Oral (F) 97.6 F 06/04/2015 [facility] Heart Rate 83 06/04/2015 [facility] Diastolic (mm Hg) 76 06/04/2015 [facility] Systolic (mm Hg) 174 06/04/2015 [facility] Weight 287.4 02/15/2015 [facility] Height 64 02/15/2015 [facility] Temperature Oral (F) 98.7 F 02/15/2015 [facility] [facility] Heart Rate 86 02[facility]15[facility]2015 [facility] Diastolic (mm Hg) 58 02/15/2015 [facility] Systolic (mm Hg) 134 02/15/2015 [facility] Weight 284 01/15/2015 [facility] Height 64 01/15/2015 [facility] Temperature Oral (F) 99.1 F 01/15/2015 [facility] Heart Rate 89 01/15/2015 [facility] Diastolic (mm Hg) 78 01/15/2015 [facility] Systolic (mm Hg) 129 01/15/2015 [facility] Weight 281.0 09/28/2014 [facility] Height 64 09/28/2014 [facility] Temperature Oral (F) 99.0 F 09/28/2014 [facility] Heart Rate 85 09/28/2014 [facility] Diastolic (mm Hg) 60 09/28/2014 [facility] Systolic (mm Hg) 125 09/28/2014 [facility] Weight 278.0 07/24/2014 [facility] Height 64 07/24/2014 [facility] Temperature Oral (F) 99.2 F 07/24/2014 [facility] Heart Rate 74 07/24/2014 [facility] Diastolic (mm Hg) 69 07/24/2014 [facility] Systolic (mm Hg) 111 07/24/2014 [facility] Weight 278.6 07/17/2014 [facility] Height 64 07/17/2014 [facility] Temperature Oral (F) 99.7 F 07/17/2014 [facility] Heart Rate 86 07/17/2014 [facility] Diastolic (mm Hg) 61 07/17/2014 [facility] Systolic (mm Hg) 105 07/17/2014 [facility] Weight 264.6 04/16/2014 [facility] Height 64 04/16/2014 [facility] Temperature Oral (F) 98.0 F 04/16/2014 [facility] Heart Rate 83 04/16/2014 [facility] Diastolic (mm Hg) 54 04/16/2014 [facility] Systolic (mm Hg) 112 04/16/2014 [facility] Weight 260.8 03/16/2014 [facility] Height 64 03/16/2014 [facility] Temperature Oral (F) 98.3 F 03/16/2014 [facility] Heart Rate 81 03/16/2014 [facility] Diastolic (mm Hg) 68 03/16/2014 [facility] Systolic (mm Hg) 121 03/16/2014 [facility] Weight 267.2 12/22/2013 [facility] Height 64 12/22/2013 [facility] Temperature Oral (F) 98.5 F 12/22/2013 [facility] Heart Rate 76 12/22/2013 [facility] Diastolic (mm Hg) 70 12/22/2013 [facility] Systolic (mm Hg) 113 12/22/2013 [facility] Weight 262 12/05/2013 [facility] Height 64 12/05/2013 [facility] Temperature Oral (F) 98.3 F 12/05/2013 [facility] Heart Rate 70 12/05/2013 [facility] Diastolic (mm Hg) 61 12/05/2013 [facility] Systolic (mm Hg) 115 12/05/2013 [facility] Weight 263.2 11/28/2013 [facility] Height 64 11/28/2013 [facility] Temperature Oral (F) 98.1 F 11/28/2013 [facility] Heart Rate 82 11/28/2013 [facility] Diastolic (mm Hg) 59 11/28/2013 [facility] Systolic (mm Hg) 112 11/28/2013 [facility] Weight 272.8 10/15/2013 [facility] Height 64 10/15/2013 [facility] Temperature Oral (F) 98.3 F 10/15/2013 [facility] Heart Rate 85 10/15/2013 [facility] Diastolic (mm Hg) 47 10/15/2013 [facility] Systolic (mm Hg) 105 10/15/2013 [facility] Weight 273.8 10/01/2013 [facility] Temperature Oral (F) 97.9 F 10/01/2013 [facility] Heart Rate 83 10/01/2013 [facility] Diastolic (mm Hg) 42 10/01/2013 [facility] Systolic (mm Hg) 106 10/01/2013 [facility] Diastolic (mm Hg) 81 09/25/2013 [facility] od Respitory Rate 9 09/25/2013 [facility] od Systolic (mm Hg) 119 09/25/2013 [facility] od Heart Rate 72 09/25/2013 [facility] od Diastolic (mm Hg) 87 09/25/2013 [facility] od Respitory Rate 11 09/25/[address] [facility] od Systolic (mm Hg) 129 09/25/[address] [facility] od Heart Rate 71 09/25/[address] [facility] od Respitory Rate 13 09/25/[address] [facility] od Diastolic (mm Hg) 82 09/25/2013 [facility] od Systolic (mm Hg) 123 09/25/[address] [facility] od Heart Rate 74 09/25/[address] [facility] od Heart Rate 77 09/25/[address] [facility] od Temperature Oral (F) 36.9 Marjorie 09/25/2013 [facility] od Temperature Oral (F) 37.0 Marjorie 09/19/2013 [facility] od Weight 122.8 09/19/[address] [facility] od Body Mass Index 46.22 09/19/[address] [facility] od Height 163 cm 09/19/[address] [facility] od Weight 267.2 09/15/2013 [facility] Height 64 09/15/2013 [facility] Temperature Oral (F) 98.4 F 09/15/2013 [facility] Heart Rate 95 09/15/2013 [facility] Diastolic (mm Hg) 82 09/15/2013 [facility] Systolic (mm Hg) 119 09/15/2013 [facility] Encounters Location Location Encounter Encounter Reason Attending ADM DC Stat us Source Details Type Number For Provider Date Date Visit [facility] Unknown [id number] 09/24 09/24 [facility] [id number] /[id number] [place] [facility] [id number] 09/24 09/24 [facility] n67-8i60-8 /2013 [facility] 72a-63b03c [facility] [id number] [facility] [id number] 09/24 09/24 [facility] aa7-4a61-a /2013 [facility] a[facility]-86vklh [facility] [id number] [facility] [id number] 09/24 09/24 [facility] 7bb-40ba-8 /2013 [facility] 57f-8d3cde [facility] [id number] [facility] [id number] 09/24 09/24 [facility] 95d-4e6b-a /2013 [facility] v90-01805r [facility] ce3b3f [facility] [id number] 09/24 09/24 [facility] 785-4ab6-9 /2013 [facility] 5dd-329e37 [facility] [id number] [facility] [id number] 09/24 09/24 [facility] ad9-45a4-b /2013 [facility] 9fd-b11d2f [facility] [id number] [facility] [id number] 09/24 09/24 [facility] y90-7580-v /2013 [facility] 5h8-p879t3 [facility] [id number] [facility] [id number] 09/24 09/24 [facility] bd3-4d7a-b /2013 [facility] 90f-783eae [facility] [id number] [facility] [id number] 09/24 09/24 [facility] 357-4d35-b /2013 [facility] 5f7-4n18dn [facility] [id number] [facility] [id number] 09/24 09/24 [facility] 9eb-41e9-b /2013 [facility] 889-2i028v [facility] [id number] [facility] [id number] 09/24 09/24 [facility] o8t-8492-2 /2013 [facility] 90e-322fd3 [facility] [id number] [facility] [id number] 09/24 09/24 [facility] i07-231p-4 /2013 [facility] [id number] [facility] [id number] [facility] [id number] 09/24 09/24 [facility] 29b-4243-b /2013 [facility] 5m3-96r823 [facility] [id number] [facility] [id number] 09/24 09/24 [facility] 470-4f13-b /2013 [facility] [id number] [facility] [id number] [facility] [id number] 09/24 09/24 [facility] 65c-4966-8 /2013 [facility] [id number] [facility] [id number] [facility] [id number] 09/24 09/24 [facility] 52f-4a58-b /2013 [facility] [id number] [facility] [id number] [facility] [id number] 09/24 09/24 [facility] 92b-43dd-8 /2013 [facility] fc0-461d76 [facility] [id number] [facility] [id number] 09/24 09/24 [facility] o12-6rk2-3 /2013 [facility] 573-b805d2 [facility] [id number] [facility] [id number] 09/24 09/24 [facility] 3r0-47v0-6 /2013 [facility] 042-c4f88d [facility] [id number] [facility] [id number] 09/24 09/24 [facility] 3a1-9f16-e /2013 [facility] p83-80j7mw [facility] acff8c [facility] [id number] 09/24 09/24 [facility] ebf-4739-b /2013 [facility] 7ce-5ac5b5 [facility] [id number] [facility] [id number] 09/24 09/24 [facility] 525-4ae2-b /2013 [facility] l44-g11298 [facility] [id number] [facility] [id number] 09/24 09/24 [facility] h47-8003-6 /2013 [facility] 722-s79357 [facility] [id number] [facility] [id number] 09/24 09/24 [facility] 095-4285-a /2013 [facility] d27-4780q5 [facility] [id number] [facility] [id number] 09/24 09/24 [facility] 9w1-1f55-4 /2013 [facility] 8z8-0k3pfd [facility] [id number] [facility] [id number] 09/24 09/24 [facility] 3fa-46b3-b /2013 [facility] 760-2bb93d [facility] [id number] [facility] [id number] 09/24 09/24 [facility] 482-478a-b /2013 [facility] [id number] [facility] [id number] [facility] [id number] 09/24 09/24 [facility] 5i5-0ky0-l /2013 [facility] 752-34dd63 [facility] [id number] [facility] [id number] 09/24 09/24 [facility] 61e-4ecd-a /2013 [facility] 1db-c21a94 [facility] [id number] [facility] [id number] 09/24 09/24 [facility] cef-491c-b /2013 [facility] 668-a7a3dd [facility] [id number] [facility] [id number] 09/24 09/24 [facility] 584-477d-8 [facility] ba3-6bce1a [facility] 26dfda [facility] [id number] 09/24 09/24 [facility] 3fb-4d24-9 /[address] machine runner-306844 [facility] [id number] [facility] [place] [facility] [id number] 09/24 09/24 [facility] 3m2-3wuv-7 /2013 [facility] dc0-fda08c [facility] [id number] [facility] [id number] 09/24 09/24 [facility] 7b1-2smd-t /2013 [facility] 0ec-0i631n [facility] [id number] [facility] [id number] 09/24 09/24 [facility] j84-52dx-2 /2013 [facility] [id number] [facility] [id number] [place] [place] [facility] [id number] 09/24 09/24 [facility] 410-4b2a-b /2013 [facility] i88-8e4vt9 [facility] [id number] [place] [place] [facility] [id number] 09/24 09/24 [facility] 000-4602-9 /2013 [facility] 188-6th264 [facility] [id number] [place] [place] [facility] Unknown [id number] 09/24 09/24 [facility] a1j-86y9-r /2013 [facility] 7i3-3c4x65 [facility] ccaf18 , [place] [facility] Unknown [id number] 09/24 09/24 [facility] 76d-4efd-9 [facility] 032-da7750 [facility] [id number] [place] [place] [facility] Outpatient [id number] [facility] 09/25 09/25 Discharge [facility] /2013 [facility] Followup 1 [id number] 10/01 10/01 [facility] week 9w1-4uzo-t /2013 [facility] 127-c0f00d [facility] 2x0023 [facility] [place] [facility] Followup 1 [id number] 10/01 10/01 [facility] week 5q9-2k0a-b /2013 [facility] 13e-7dc0c1 [facility] [id number] [place] [facility] [place] [facility] Followup 1 [id number] 10/01 10/01 [facility] week 55e-4ca3-b /2013 [facility] 8df-w90422 [facility] [id number] [place] [place] [facility] Followup 1 [id number] 10/01 10/01 [facility] week 5a7-2348-e /2013 [facility] 7f9-zrl1m1 [facility] 06deef [facility] [place] [facility] Follow[facility] 1 [id number] 10/01 10/01 [facility] week 657-47b6-b /2013 [facility] de2-180026 [facility] [id number] [facility] [place] [facility] Followup 1 [id number] 10/01 10/01 [facility] week 63c-4c7a-8 /2013 [facility] q74-p7r5c0 [facility] [id number] , [facility] Followup 1 [id number] 10/01 10/01 [facility] week 2h5-3s69-8 /2013 [facility] bbf-65w424 [facility] [id number] , [place] [facility] Followup 1 [id number] 10/01 10/01 [facility] week 26f-47ab-a /2013 [facility] 17d-9561c1 [facility] 966cda , [facility] Followup 1 [id number] 10/01 10/01 [facility] aa2-43f6-b /2013 [facility] 610-c92dea [facility] da11aa , [facility] Followup 1 [id number] 10/01 10/01 [facility] e76-7707-5 [facility] 47b-6868f0 [facility] [id number] , [place] [facility] Followup 1 [id number] 10/01 10/01 [facility] ae1-42e9-a /2013 [facility] 007-7af1e9 [facility] [id number] , [place] [facility] Followup 1 [id number] 10/01 10/01 [facility] 996-4ddc-a /2013 [facility] 2fa-e6dbd4 [facility] 4deaa5 , [place] [facility] Followup 1 [id number] 10/01 10/01 [facility] week 26a-40c5-b /2013 [facility] 895-1vh000 [facility] cac1c0 [place] [place] [facility] Followup 1 [id number] 10/01 10/01 [facility] 33b-4c94-a /2013 [facility] 151-25bb67 [facility] 4620aa , [place] [facility] Followup 1 [id number] 10/01 10/01 [facility] dde-49f8-b /2013 [facility] 64c-f18b8f [facility] [id number] [place] [place] [facility] Followup 1 [id number] 10/01 10/01 [facility] v64-64n2-a /2013 [facility] 66e-04727v [facility] [id number] [facility] Followup 1 [id number] 10/01 10/01 [facility] week 48c-4dfa-8 [facility] e3f-92ts9l [facility] 2dbcac [facility] Followup 1 [id number] 10/01 10/01 [facility] week 53f-4ae1-9 [facility] 8dc-xe040p [facility] a89e0d [facility] Followup 1 [id number] 10/01 10/01 [facility] week 8fd-47b7-8 [facility] f42-y7668c [facility] [id number] [facility] Followup 1 [id number] 10/01 10/01 [facility] week fcc-4f2f-b /2013 [facility] h39-c30j8m [facility] [id number] [facility] Followup 1 [id number] 10/01 10/01 [facility] 92b-40d6-9 [facility] k3r-lh478n [facility] [id number] [facility] Followup 1 [id number] 10/01 10/01 [facility] week 515-4810-8 [facility] 536-310fce [facility] ce99d8 [facility] Followup 1 [id number] 10/01 10/01 [facility] week 1t6-6r74-k /2013 [facility] 8w0-19f9dx [facility] [id number] [facility] Followup 1 [id number] 10/01 10/01 [facility] week 857-4347-b /2013 [facility] 4ca-4669a0 [facility] [id number] [facility] Followup 1 [id number] 10/01 10/01 [facility] week 571-4f40-8 [facility] cd7-0d8f3e [facility] ecc7f0 [facility] , [facility] Followup 1 [id number]-j 10/01 10/01 [facility] week 1p9-18v0-z /2013 [facility] 7dc-67560z [facility] [id number] [facility] Followup 1 [id number] 10/01 10/01 [facility] week 6dc-4258-8 /2013 [facility] 621-5n226a [facility] 2760bc [facility] Followup 1 [id number] 10/01 10/01 [facility] week 921-44c2-b /2013 [facility] 86b-991dd9 [facility] ic941w [facility] Followup 1 [id number] 10/01 10/01 [facility] week 3j0-59k7-4 /2013 [facility] ff8-5f4585 [facility] [id number] [place] [place] [facility] Followup 1 [id number] 10/01 10/01 [facility] week 334-4b8f-9 [facility] 5y2-iknj06 [facility] 65f52f [facility]up 1 [id number] 10/01 10/01 [facility] week ba3-4d56-a /2013 [facility] l96-544887 [facility] [id number] [facility] Followup 1 [id number] 10/01 10/01 [facility] week z68-29o0-6 /2013 [facility] 44d-6f2b12 [facility] 4ae4bc [facility] Followup 1 [id number] 10/01 10/01 [facility] week 239-4e49-a /2013 [facility] 345-0u6487 [facility] [id number] [facility] Followup 1 [id number] 10/01 10/01 [facility] week 201-44f3-a /2013 [facility] p8f-y26q0g [facility] [id number] [facility] Followup 1 [id number] 10/01 10/01 [facility] week 1ac-42a0-b /2013 [facility] j2u-y9ven7 [facility] [id number] [facility] Followup 1 [id number] 10/01 10/01 [facility] week 3k1-5qx2-d /2013 [facility] 40e-239eac [facility] [id number] [facility] Followup 1 [id number] 10/01 10/01 [facility] week cb8-493a- [facility] 0q3-1p2h2l [facility] [id number] [facility] Followup 1 [id number] 10/01 10/01 [facility] week bbb-429f- [facility] e[facility]f-79dtnk [facility] cb19ad [facility] Followup 1 [id number] 10/01 10/01 [facility] week 3fc-4654-a /2013 [facility] 21e-5o2520 [facility] 3a6f3a [place] [place] [facility] Follow-Up 2 [id number] 10/15 10/15 [facility] weeks a82-0509-d /2013 [facility] 6s3-x058c0 [facility] [id number] [facility] , [facility] Follow-Up 2 [id number] 10/15 10/15 [facility] weeks m94-325c-z /2013 [facility] 6i4-359l0z [facility] [id number] [facility] , [facility] Follow-Up 2 [id number] 10/15 10/15 [facility] weeks b16-3xad-0 [facility] 811-a60fb6 [facility] 7caa5a [facility] , [facility] Follow-Up 2 [id number] 10/15 10/15 [facility] weeks l40-46c4-b /2013 [facility] 7i1-27qkws [facility] cdb5c3 [facility] , [facility] Follow-Up 2 [id number]-g 10/15 10/15 [facility] weeks 496-4b1d-9 [facility] r3c-32vr94 [facility] [id number] [facility] , [facility] Follow-Up 2 [id number] 10/15 10/15 [facility] weeks z0i-48jy-0 [facility] h0z-855o42 [facility] b7ddb5 [facility] , [facility] Follow-Up 2 [id number] 10/15 10/15 [facility] weeks w5m-3ii1-x /2013 [facility] 135-829777 [facility] fa7d30 [facility] Follow-Up 2 [id number] 10/15 10/15 [facility] weeks 495-4ce8-a /2013 [facility] ccc-eb26aa [facility] [id number] [facility] Follow-Up 2 [id number] 10/15 10/15 [facility] weeks 49e-4281-9 /2013 [facility] 80d-7188f8 [facility] [id number] [facility] Follow-Up 2 [id number]-j 10/15 10/15 [facility] weeks f26-16b6-0 [facility] 63a-64ff9d [facility] [id number] [facility] , [facility] Follow-Up 2 [id number] 10/15 10/15 [facility] weeks 67e-420b-8 [facility] 671-87h601 [facility] ebd07c [facility] , [facility] Follow-Up 2 [id number] 10/15 10/15 [facility] weeks cb8-41b3-a /2013 [facility] 574-yd8502 [facility] [id number] [facility] Follow-Up 2 [id number] 10/15 10/15 [facility] weeks 711-4085-8 /2013 [facility] 89b-54c8a6 [facility] f3cc04 [facility] , [facility] Follow-Up 2 [id number] 10/15 10/15 [facility] weeks n2d-0955-y /2013 [facility] 8cc-fd9c58 [facility] ae2a65 [facility] , [facility] Follow-Up 2 [id number] 10/15 10/15 [facility] weeks 95d-484c-b /2013 [facility] i05-o3ck7i [facility] d9ecee [facility] Follow-Up 2 [id number] 10/15 10/15 [facility] Primary weeks m3x-0725-2 /2013 [facility] 79b-d0572p [facility] cab93f [facility] Follow-Up 2 [id number] 10/15 10/15 [facility] weeks t10-2w67-7 /2013 [facility] [phone] [facility] [id number] [facility] Follow-Up 2 [id number] 10/15 10/15 [facility] Primary weeks bc8-4986-9 /2013 [facility] q28-5gol07 [facility] b814e4 [facility] Follow-Up 2 [id number] 10/15 10/15 [facility] Primary weeks ffb-44a1-a /2013 [facility] u2x-00w32p [facility] 8d83b0 [facility] , [facility] Follow-Up 2 [id number]-q 10/15 10/15 [facility] Primary weeks 264-41e9-b /2013 [facility] 9ef-95fcdf [facility] [id number] [facility] , [facility] Follow-Up 2 [id number] 10/15 10/15 [facility] Primary weeks 747-428e-b /2013 [facility] dd4-403232 [facility] e9a4d3 [facility] , [facility] Follow-Up 2 [id number] 10/15 10/15 [facility] Primary weeks 3ea-4575-a /2013 [facility] 1p5-01b4g4 [facility] 3cf7fe [facility] , [facility] Follow-Up 2 [id number] 10/15 10/15 [facility] Primary weeks 74e-4876-a /2013 [facility] 66a-389135 [facility] [id number] [facility] , [facility] Follow-Up 2 [id number]-u 10/15 10/15 [facility] Primary weeks 33a-4004-b /2013 [facility] ff4-87n840 [facility] [id number] [facility] Follow-Up 2 30x9f8xq-2 10/15 10/15 [facility] weeks 0j1-99tx-d /2013 [facility] b6y-73iazd [facility] c10b93 [facility] Follow-Up 2 [id number]-9 10/15 10/15 [facility] Primary weeks 6ee-4902-a /2013 [facility] 646-4c084s [facility] b64c99 [facility] Follow-Up 2 [id number] 10/15 10/15 [facility] Primary weeks 277-4dd0-9 [facility] l81-t9qp8f [facility] 1bcf97 [facility] Follow-Up 2 e6o7ac45-k 10/15 10/15 [facility] Primary weeks 1y3-8055-5 [facility] 811-15008r [facility] c056be [facility] Follow-Up 2 [id number]-j 10/15 10/15 [facility] Primary weeks y2g-66l2-0 [facility] 8g7-452l22 [facility] [id number] [facility] , [facility] Follow-Up 2 [id number] 10/15 10/15 [facility] Primary weeks p0o-1229-a [facility] 7ad-23h222 [facility] 89f1db [facility] , [facility] Follow-Up 2 [id number]-[id number] 10/15 10/15 [facility] Primary weeks 8dd-42f2-a [facility] 6ee-bd1b16 [facility] ab76f7 [facility] , [facility] Follow-Up 2 ip41a408-g 10/15 10/15 [facility] Primary weeks 9l7-9676-u [facility] eea-o06123 [facility] e091fa [facility] , [facility] Follow-Up 2 [id number] 10/15 10/15 [facility] Primary weeks 8da-403a-a /2013 [facility] 2da-986304 [facility] 7ac2cd [facility] Follow-Up 2 95i519q0-q 10/15 10/15 [facility] Primary weeks a08-9fn4-3 [facility] 185-a0b5a6 [facility] 40b7c1 [facility] Follow-Up 2 [id number] 10/15 10/15 [facility] Primary weeks ca1-4c59-b /2013 [facility] 580-a2aabb [facility] e20a53 [facility] , [facility] Follow-Up 2 [id number] 10/15 10/15 [facility] Primary weeks 78b-486a-b /2013 [facility] c49-3tl46z [facility] [id number] [facility] , [facility] Follow-Up 2 [id number]-z 10/15 10/15 [facility] Primary weeks 3bc-4b7e-b /2013 [facility] fb8-a3a2bc [facility] [id number] [place] [facility] [place] [facility] Follow-Up 2 [id number] 10/15 10/15 [facility] Primary weeks s70-9h14-h /2013 [facility] d18-6x7301 [facility] f49a8f [facility] , [facility] Follow-Up 2 [id number] 10/15 10/15 [facility] Primary weeks 2a0-306v-m /2013 [facility] 4a3-112226 [facility] c0a2f8 [facility] Poss sinus 5s9v5zs7-2 11/28 11/28 [facility] inf 800-4566- [facility] 9c3-9t52e0 [facility] 3fbc42 [facility] , [facility] Poss sinus 47504csr-7 11/28 11/28 [facility] inf s7k-6253-2 [facility] 88d-axb250 [facility] 47ad04 [facility] , [facility] Poss sinus 52l5n67e-d 11/28 11/28 [facility] Primary inf 060-40a3- /2013 [facility] 1v0-8soq85 [facility] [id number] [facility] , [facility] Poss sinus [id number] 11/28 11/28 [facility] inf 726-4aff-a /2013 [facility] 775-163be6 [facility] [id number] [facility] , [facility] Poss sinus [id number] 11/28 11/28 [facility] Primary inf 3h9-538h-h /2013 [facility] 8s0-xk0928 [facility] [id number] [place] , [facility] Poss sinus 3t359otn-e 11/28 11/28 [facility] Primary inf 584-4fae- [facility] 868-prp292 [facility] 97aac1 [place] , [facility] Poss sinus [id number] 11/28 11/28 [facility] inf y65-997n-5 [facility] eb8-d49b38 [facility] 7b014m [facility] , [facility] Poss sinus [id number]-r 11/28 11/28 [facility] inf 78a-455d-8 /2013 [facility] 327-507a34 [facility] [id number] [facility] , [facility] Poss sinus o08np4b2-5 11/28 11/28 [facility] Primary inf k3d-928m-9 /2013 [facility] 085-51l334 [facility] cf1b2b [facility] , [facility] Poss sinus [id number] 11/28 11/28 [facility] [id number] /2013 [facility] [phone] [facility] [id number] [facility] [place] [facility] [id number] 11/28 11/28 [facility] [id number] /2013 [facility] [id number] [facility] [id number] [facility] [place] [facility] [id number] 11/28 11/28 [facility] [id number] /2013 [facility] [phone] [facility] [id number] [facility] [place] [facility] [id number] 11/28 11/28 [facility] [id number] /2013 [facility] [id number] [facility] [id number] [facility] [place] [facility] [id number] 11/28 11/28 [facility] [id number] /2013 [facility] [id number] [facility] [id number] [facility] [place] [facility] [id number] 11/28 11/28 [facility] [id number] /2013 [facility] [phone] [facility] [id number] [facility] [place] [facility] [id number] 11/28 11/28 [facility] [id number] /2013 [facility] [phone] [facility] [id number] [facility] [place] [facility] [id number] 11/28 11/28 [facility] u19-2852-0 /[id number] [place] [facility] 08g22tma-a 11/28 11/28 [facility] 802-4ffd-8 /2013 [facility] 6eb-32f8d7 [facility] 836[facility]06 [facility] 1vj03h41-6 11/28 11/28 [facility] inf 146-49df-8 /2013 [facility] 342-17c82c [facility] [id number] [facility] 205q3qz8-3 11/28 11/28 [facility] inf 54a-4e8a-b /2013 [facility] 3ef-8c0109 [facility] f4a2bc [facility] [place] [facility] 7o0fe538-8 11/28 11/28 [facility] 153-4f32-b /2013 [facility] q63-893fx9 [facility] 25cc62 [facility] [place] [facility] 98224910-v 11/28 11/28 [facility] 6j3-048e-3 /2013 [facility] 45e-4f5195 [facility] 13l066 [facility] [place] [facility] 4kgr1j66-c 11/28 11/28 [facility] 9k9-3rkb-q /2013 [facility] 172-5e3412 [facility] 4cf6fd [facility] z91x1z21-7 11/28 11/28 [facility] ea5-40ad-a /2013 [facility] 0i9-38o135 [facility] f33d94 [facility] 04ke936e-v 11/28 11/28 [facility] c85-16lh-y /2013 [facility] e22-697f5d [facility] 027eb4 [facility] [place] [facility] 42459oc5-a 11/28 11/28 [facility] 8ab-40ce-b /2013 [facility] 1b7-284pi0 [facility] 8ed[facility]c [facility] [place] [facility] 285sqx5k-6 11/28 11/28 [facility] 371-4abf-8 /2013 [facility] b8w-e7k244 [facility] 392e0e [facility] [place] [facility] h9837it7-q 11/28 11/28 [facility] 2g5-7p2h-1 /2013 [facility] 6v4-293c46 [facility] 2f1e4e [facility] [place] [facility] 760240zy-q 11/28 11/28 [facility] 033-4d5f-a /2013 [facility] 904-9o1002 [facility] [id number] [facility] [place] [facility] 85a33m57-3 11/28 11/28 [facility] w44-354a-7 [facility] 3e8-7q2dws [facility] 26bc89 [facility] [place] [facility] oq641f6x-3 11/28 11/28 [facility] ae2-4eb9- [facility] 027-26dd70 [facility] de71d2 [facility] [place] [facility] 3g5u2nxu-t 11/28 11/28 [facility] 105-4877-a /2013 [facility] h0v-75u03s [facility] 763f1d [facility] [place] [facility] h4p7g610-j 11/28 11/28 [facility] dfa-4373-9 [facility] 023-398d4c [facility] 7c2e6a [facility] [place] [facility] 0716qdu3-2 11/28 11/28 [facility] s2n-936o-6 [facility] 2cf-a5a4b1 [facility] adcff3 [facility] [place] [facility] 34904m9j-8 11/28 11/28 [facility] 782-4b11-a /2013 [facility] cc7-z0160b [facility] 473ca5 [facility] [place] [facility] [id number]-j 11/28 11/28 [facility] aa4-492d-8 [facility] 3b6-6236e9 [facility] 1423f0 [facility] [place] [facility] 2yz76n43-7 11/28 11/28 [facility] belle-4e86-9 [facility] q98-0d35k5 [facility] 6ccbc7 [facility] req [id number] 12/01 12/01 [facility] so db8-4f39- [facility] changed to e6g-19859f [facility] 651f42 [facility] Nasonex req [id number] 12/01 12/01 [facility] so 91e-4b4b- [facility] changed to 647-4c1a44 [facility] 08y127 [facility] Nasonex req [id number] 12/01 12/01 [facility] so 7ca-4805- [facility] changed to 3z3-8n6878 [facility] e4fc6c [facility] Nas[facility] req [id number] 12/01 12/01 [facility] so 573-4398- [facility] changed to 7g9-18a757 [facility] 0a7e4d [facility] Nasonex req [id number] 12/01 12/01 [facility] so z46-85ep-x /2013 [facility] changed to 60b-0ef36e [facility] 6bcbe8 [facility] Nasonex req [id number] 12/01 12/01 [facility] so 3ca-44dd- [facility] changed to d2y-9653d1 [facility] 330b80 [facility] Nasonex req [id number] 12/01 12/01 [facility] so 4t3-42n0-4 [facility] changed to t92-6w3909 [facility] 62e5ee [facility] Nas[facility] req [id number] 12/01 12/01 [facility] so v2q-6i27-3 [facility] changed to 79c-d80cd3 [facility] 7q063p [facility] Nas[facility]x req [id number] 12/01 12/01 [facility] so b72-74i8-2 [facility] changed to l59-4jmn68 [facility] 068da4 [facility] [place] [facility] [id number] 12/01 12/01 [facility] so 0c0-29s7-4 [facility] changed to 45b-d53dec [facility] c28bf0 [facility] [place] [facility] req [id number] 12/01 12/01 [facility] so 009-4cfc-b /2013 [facility] changed to 88e-47b59d [facility] 28bd0b [facility] [place] [facility] req [id number] 12/01 12/01 [facility] so v66-8230-q [facility] changed to 6dc-e9bc3c [facility] [id number] [facility] [place] [facility] req [id number] 12/01 12/01 [facility] so 2bd-459d-a [facility] changed to 3p5-04xx33 [facility] [id number] [facility] [place] [facility] req [id number] 12/01 12/01 [facility] so 212-4946- [facility] changed to 39f-8c16fe [facility] 510cce [facility] [place] [facility] req [id number] 12/01 12/01 [facility] so e0w-6zj9-9 [facility] changed to g06-549z29 [facility] [id number] [facility] [place] [facility] req [id number] 12/01 12/01 [facility] so a82-6751-4 [facility] changed to fb0-402c1a [facility] fcde7d [facility] [place] [facility] req [id number] 12/01 12/01 [facility] so baf-45b0-b /2013 [facility] changed to n1a-409f16 [facility] 398c85 [facility] [place] [facility] [id number] 12/01 12/01 [facility] so 830-4203- [facility] changed to 2ab-afad13 [facility] b5db9c [facility] Nas[facility] req [id number] 12/01 12/01 [facility] so 02d-4a10-a /2013 [facility] changed to 94d-bda8d0 [facility] ff25a0 [facility] req [id number] 12/01 12/01 [facility] so 63b-4844- [facility] changed to u8w-3g0233 [facility] [id number] [facility] Nas[facility]x req [id number] 12/01 12/01 [facility] so 7fb-4ca9- [facility] changed to 221-95de7a [facility] 34edc6 [facility] req [id number] 12/01 12/01 [facility] so 1fb-4063-a [facility] changed to w83-171fms [facility] 234d93 [facility] req [id number] 12/01 12/01 [facility] so 6fa-4c0d- [facility] changed to 05b-h3483g [facility] 796af0 [facility] req [id number] 12/01 12/01 [facility] so 30c-45db- [facility] changed to bef-i6744g [facility] a239d3 [facility] [place] [facility] req [id number] 12/01 12/01 [facility] so def-40b0-a [facility] changed to 150-0qf694 [facility] e0s229 [facility] Nasonex req [id number] 12/01 12/01 [facility] so u74-148j-u /2013 [facility] changed to 70f-a0f1ea [facility] 16a9bf [facility] [place] [facility] req [id number] 12/01 12/01 [facility] so q03-63nw-5 [facility] changed to 023-5528fe [facility] 686e90 [facility] [place] [facility] req [id number] 12/01 12/01 [facility] so 96a-4861- [facility] changed to ca8-f7dee9 [facility] 7b3d91 [facility] [place] [facility] req [id number] 12/01 12/01 [facility] so 2db-456e-9 [facility] changed to ee8-y5p429 [facility] 4ef56a [facility] req [id number] 12/01 12/01 [facility] so 4g2-81v8-2 [facility] changed to 250-f109bd [facility] e11f51 [facility] [place] [facility] req [id number] 12/01 12/01 [facility] so k03-6h6j-2 [facility] changed to 714-d650ea [facility] 608c4d [facility] req [id number] 12/01 12/01 [facility] so 68b-456b-b /2013 [facility] changed to 2fb-crh396 [facility] 98bc5c [facility] [place] [facility] req [id number] 12/01 12/01 [facility] so 353-4fd4-b /2013 [facility] changed to w0l-454q82 [facility] 4s979k [facility] [place] [facility] req [id number] 12/01 12/01 [facility] so 8df-4766- [facility] changed to 6u9-3wt129 [facility] fddb56 [facility] req [id number] 12/01 12/01 [facility] so b85-7uyx-o /2013 [facility] changed to a17-7e6884 [facility] ru0189 [facility] req [id number] 12/01 12/01 [facility] so bfe-45f0-b /2013 [facility] changed to 999-9af15f [facility] 63fa01 [facility] , [facility] req [id number] 12/01 12/01 [facility] Primary [facility] so fde-4273-a /2013 [facility] changed to 635-mhg871 [facility] db0df2 [facility] , [facility] allergies mmlc076t-j 12/05 12/05 NE Primary not any 98b-46dc-a /2013 [facility] better from fc7-edafca [facility] visit e82dc5 [facility] , [facility] allergies a2749469-0 12/05 12/05 NE Primary not any 9l9-0m27-5 [facility] better from dc2-28f34b [facility] visit s59325 [facility] , [facility] allergies bp6714ht-7 12/05 12/05 NE Primary not any 796-4de1-b [facility] better from 32c-i0q089 [facility] visit ccc62b [facility] , [facility] allergies u1n0240a-7 12/05 12/05 NE Primary not any 382-4045- [facility] better from 3w7-x05g3n [facility] visit 37f267 [facility] , [facility] allergies 999r5861-1 12/05 12/05 NE Primary not any 343-44b5- [facility] better from l30-2235j6 [facility] visit dbdd12 [facility] , [facility] allergies f80805k8-3 12/05 12/05 NE Primary not any 327-4be4- [facility] better from 489-4w0140 [facility] 32c1b1 [facility] [place] [facility] 9881ukk3-c 12/05 12/05 NE Primary not any fbb-4422-b [facility] better from 0x2-69y3lk [facility] visit a206dd [facility] [place] [facility] 2av75859-d 12/05 12/05 NE Primary not any 01f-4935-b [facility] better from aeb-721e76 [facility] visit a9caef [facility] [place] [facility] z40h8o47-b 12/05 12/05 NE Primary not any 9ec-4370-b /2013 [facility] better from ab9-g1418n [facility] visit d852d5 [facility] [place] [facility] 123138d4-2 12/05 12/05 NE Primary not any f8w-67v9-2 [facility] better from 762-619cb5 [facility] visit [id number] [facility] [place] [facility] p9904yak-5 12/05 12/05 NE Primary not any 774-4dc0- [facility] better from bb6-0g4934 [facility] 8f26ab [facility] [place] [facility] hb336577-2 12/05 12/05 NE Primary not any 49f-4e37- [facility] better from 0w3-6278e1 [facility] visit s9386i [facility] [place] [facility] zw1finut-2 12/05 12/05 NE Primary not any cb5-4fe2- [facility] better from 6fd-94b0b1 [facility] visit [id number] [facility] [place] [facility] 3urq163s-b 12/05 12/05 NE Primary not any 3u0-2k19-b [facility] better from 171-01175p [facility] visit 78e715 [facility] [place] [facility] 7e51x5kf-6 12/05 12/05 NE Primary not any g34-715g-4 [facility] better from 2l6-1m0g5l [facility] visit 122a0f [facility] [place] [facility] 1z4w8g01-c 12/05 12/05 NE Primary not any 56c-4576-b /2013 [facility] better from 8p5-m2m8g3 [facility] visit 79da50 [facility] , [facility] allergies 98679hk2-7 12/05 12/05 NE Primary not any 5c1-438d-4 [facility] better from 05c-19cac5 [facility] visit c7bfe5 [facility] , [facility] allergies 0749c467-8 12/05 12/05 NE Primary not any ac0-439e-a /2013 [facility] better from 0ca-ecbbdd [facility] last visit 73441j [facility] , [facility] allergies bfn7679r-6 12/05 12/05 NE Primary not any u64-5907-7 [facility] better from 493-y0h854 [facility] last visit d5d47a [facility] , [facility] allergies -z 12/05 12/05 NE Primary not any 481-4b59- [facility] better from 982-c1c5fa [facility] visit 3932fa [facility] , [facility] allergies 7426m437-h 12/05 12/05 NE Primary not any edb-4fd9- [facility] better from q15-fvg8v8 [facility] visit [id number] [facility] , [facility] allergies 3z8b3761-4 12/05 12/05 NE Primary not any l67-88j2-p [facility] better from o56-4y5464 [facility] visit c67574 [facility] , [facility] allergies 8nbszu06-k 12/05 12/05 NE Primary not any 5g3-9y99-y [facility] better from 40d-xes312 [facility] visit 6f4cd7 [facility] , [facility] allergies p21s92v4-1 12/05 12/05 NE Primary not any 2g8-1b34-5 [facility] better from 111-b6fd09 [facility] last visit 263b0a [facility] , [facility] allergies 10069030-8 12/05 12/05 NE Primary not any 54d-4255- [facility] better from s9h-1sp420 [facility] visit 3fafa0 [facility] [place] [facility] f3i14048-d 12/05 12/05 NE Primary not any 45c-4cea- [facility] better from 16f-w8e642 [facility] visit f63124 [facility] [place] [facility] 48p8g292-t 12/05 12/05 NE Primary not any u41-794p-0 [facility] better from 382-h8d290 [facility] visit 2o4399 [facility] [place] [facility] p9v2944h-t 12/05 12/05 NE Primary not any c18-6b52-e [facility] better from a70-489c44 [facility] visit 6c8c2c [facility] [place] [facility] metc7u45-u 12/05 12/05 NE Primary not any 1e2-261n-k [facility] better from 15d-h6q225 [facility] visit 2ez088 [facility] [place] [facility] 721i0307-8 12/05 12/05 NE Primary not any de4-4e63- [facility] better from ef4-b90fd0 [facility] visit dd4b60 [facility] [place] [facility] 8j431cae-0 12/05 12/05 NE Primary not any 505-4508- [facility] better from b8p-732b2s [facility] visit 3a91ef [facility] , [place] [facility] 6oi839h1-2 12/05 12/05 NE Primary not any 6bb-4bd2- [facility] better from 876-vas127 [facility] visit 800d01 [facility] [place] [facility] xa79i1uw-4 12/05 12/05 NE Primary not any 4z4-0o78-9 [facility] better from 251-ad1eac [facility] visit 146dc6 [facility] [place] [facility] 51u77a11-4 12/05 12/05 NE Primary not any cc7-4b19-a [facility] better from y73-3lwu34 [facility] visit 0wh939 [facility] [place] [facility] i11un2f6-g 12/05 12/05 NE Primary not any cd0-4163-9 [facility] better from 112-533ecf [facility] last visit 05772t [facility] , [facility] 82ip5e06-g 12/22 12/22 NE Primary med refill 371-45c0-a /2013 [facility]-z18982 [facility] 9on761 [facility] u795a2fh-1 12/22 12/22 [facility] Primary med refill z2t-7360-4 [facility] r4t-va3e98 [facility] a6ee6c [facility] e03lcc1x-5 12/22 12/22 [facility] Primary med refill a6c-54op-a /2013 [facility] 2c6-i8yoa2 [facility] dbf5fc [facility] ku23z615-0 12/22 12/22 [facility] Primary med refill h67-6404-r /2013 [facility] fc8-808074 [facility] 7395d7 [facility] jr62384r-0 12/22 12/22 [facility] Primary med refill 569-455e-b /2013 [facility] 29a-365405 [facility] aadfb2 [facility] f65429fp-4 12/22 12/22 [facility] Primary med refill fe8-4604- [facility] dfe-e36268 [facility] 7d1f83 [facility] n7t099n8-5 12/22 12/22 NE Primary med refill 295-4f89-b /2013 [facility] s8n-nqwym0 [facility] 5a5afb [facility] hrz86jjh-2 12/22 12/22 [facility] Primary med refill 583-4f63-9 [facility] da3-uwu341 [facility] 711fe4 [facility] qeepz5zy-3 12/22 12/22 [facility] Primary med refill 668-4933-8 /2013 [facility] cc3-3366c7 [facility] 744f07 [facility] d52w3538-9 12/22 12/22 NE Primary med refill 009-4126-9 /2013 [facility] fa4-a5ea62 [facility] 00ae78 [facility] 84mjr36k-6 12/22 12/22 [facility] Primary med refill 3i5-2i37-c /2013 [facility] f74-07dy8n [facility] a65ee6 [facility] t6celznc-3 12/22 12/22 [facility] Primary med refill 8ef-44dd-b /2013 [facility] 136-bff5c2 [facility] [id number] [facility] v9b3i31z-2 12/22 12/22 [facility] Primary med refill 143-4305-b /2013 [facility] 87a-7u7892 [facility] 1383eb [facility] e0wc3s6s-3 12/22 12/22 NE Primary med refill p89-7g3b-s /2013 [facility] r96-8038b2 [facility] 1a1dd2 [facility] l4a828i2-d 12/22 12/22 [facility] Primary med refill 6ba-49d9-8 /2013 [facility] 25b-54123r [facility] 3710ef [facility] 308sf7ok-m 12/22 12/22 [facility] Primary med refill 515-40c8-b /2013 [facility] 149-c648b9 [facility] t5z197 [facility] e0p3746z-9 12/22 12/22 [facility] Primary med refill 1fb-49e3-b /2013 [facility] aaf-325ba2 [facility] c4bb9c [facility] 793m6452-7 12/22 12/22 [facility] Primary med refill i23-3328-l /2013 [facility] fa8-c9a6b3 [facility] 61222h [facility] 17ob28ug-o 12/22 12/22 [facility] Primary med refill fe2-48c0-b /2013 [facility] 69e-imp705 [facility] 3a9fc5 [facility] 692s10xi-5 12/22 12/22 NE Primary med refill t0a-1h1d-6 [facility] 972-m6954p [facility] a83b2a [facility] t7472g07-1 12/22 12/22 NE Primary med refill 81a-435c-a /2013 [facility] 8z4-8174y5 [facility] 59e30d [facility] 3qs8rf82-h 12/22 12/22 [facility] Primary med refill 863-4215-9 [facility] l8g-w13no1 [facility] 859f6f [facility] [id number] 12/22 12/22 NE Primary med refill 71c-4879-9 [facility] f91-994379 [facility] b1935r [facility] e73m53k0-0 12/22 12/22 NE Primary med refill d30-74av-a /2013 [facility] 10b-5a5da1 [facility] 7r5299 Asslet[facility] , [place] [facility] 307k62e4-9 12/22 12/22 NE Primary med refill 199-44bb-a /2013 [facility] [id number] [facility] 051f0c [facility] 4406j60g-x 12/22 12/22 [facility] Primary med refill h93-4453-0 /2013 [facility] 332-500c6b [facility] bbf65d [facility] htfv9m3h-3 12/22 12/22 NE Primary med refill 549-43eb-a /2013 [facility] 864-90d2fd [facility] 62b8a2 [facility] 0o6wn5u2-5 12/22 12/22 [facility] Primary med refill fe8-486b- [facility] 196-u4j156 [facility] c8a59c [facility] 335y67h8-1 12/22 12/22 NE Primary med refill c64-0kua-7 [facility] i3o-3166hm [facility] a2f4e7 [facility] , [facility] 29623g05-l 12/22 12/22 NE Primary med refill 17a-498b- [facility] 6v5-tx4983 [facility] 6d8a28 [facility] n300o57a-0 12/22 12/22 NE Primary med refill 4d0-3113-1 [facility] 882-29060j [facility] 92c273 [facility] 7shq0e3t-1 12/22 12/22 NE Primary med refill 51e-46b8- [facility] 459-his411 [facility] c1a1fb [facility] 2632w689-5 12/22 12/22 NE Primary med refill ebd-4ac8- [facility] 15d-21805u [facility] 05c6d6 [facility] must 707837t7-2 12/29 12/29 NE Primary go through 6q5-9368-9 [facility] eef-63c77b [facility] e2cefc [facility] [place] [facility] Ref[facility] must 5972d5fr-3 12/29 12/29 NE Primary go through 38c-4efe- [facility] fb0-db5f9d [facility] f6a49a [facility] [place] [facility] must 24w3se0q-8 12/29 12/29 NE Primary go through ce4-40ef-b [facility] 858-e305b0 [facility] 7d31b6 [facility] [place] [facility] must 4q605p42-2 12/29 12/29 NE Primary go through arlene-443e-a [facility] 5k7-392431 [facility] 6d37e0 [facility] [place] [facility] Ref[facility] must 5f7ns311-1 12/29 12/29 NE Primary go through 1cb-41a0-b [facility] 8j5-rd34b3 [facility] 66be72 [facility] [place] [facility] must 18hk1a6w-s 12/29 12/29 NE Primary go through e8e-9rh7-v [facility] m7x-d505m8 [facility] cac46d [facility] [place] [facility] must [id number] 12/29 12/29 NE Primary go through 207-4ec7-8 [facility] 1u2-583094 [facility] ff55ef [facility] [place] [facility] must b7y650kh-2 12/29 12/29 NE Primary go through 318-4ead-8 [facility] 0q1-9a3v80 [facility] u9f455 [facility] [place] [facility] must 922bzb78-9 12/29 12/29 NE Primary go through a5c-53q7-3 [facility] 491-c76f3b [facility] ae6b49 [facility] , [place] [facility] must [id number]-[id number] 12/29 12/29 NE Primary go through 744-439e-9 [facility] 7m9-181443 [facility] 7959aa [facility] [place] [facility] must 32a4172f-4 12/29 12/29 NE Primary go through 618-441c-b [facility] 06a-nl6924 [facility] qd091b [facility] [place] [facility] must 78xbiz25-4 12/29 12/29 NE Primary go through 2u7-5n6l-e [facility] 837-4f9c6d [facility] 104c0d [facility] [place] [facility] must 80e4801a-p 12/29 12/29 NE Primary go through q5r-0075-d [facility] z25-4k747v [facility] fbf78b [facility] [place] [facility] must 2626wz7o-1 12/29 12/29 NE Primary go through 507-4916-9 [facility] r87-094157 [facility] 14dd0d [facility] [place] [facility] must 566vyz86-0 12/29 12/29 NE Primary go through 603-464b-b /2013 [facility] 3de-q12782 [facility] 2d1ac4 [facility] [place] [facility] must [id number]-z 12/29 12/29 NE Primary go through e70-2qt3-x /2013 [facility] 25e-l8i922 [facility] [id number] [facility] [place] [facility] must 7706p8n6-a 12/29 12/29 NE Primary go through 0j9-9718-3 [facility] 07f-830d2f [facility] 13ae1d [facility] [place] [facility] must 10d05w8w-5 12/29 12/29 NE Primary go through 21b-4e20- [facility] 4ff-8118f6 [facility] 334cff [facility] [place] [facility] must 9bc8m864-1 12/29 12/29 NE Primary go through u7o-379u-8 [facility] [id number] [facility] 5abd1f [facility] must hd7u3577-4 12/29 12/29 NE Primary go through cb8-4c7e-b [facility] b05-ak3wr6 [facility] 8d4ada [facility] must 330w4561-f 12/29 12/29 NE Primary go through 533-4080-8 [facility] b00-8g0238 [facility] c9c0ee [facility] must hxhxih62-0 12/29 12/29 NE Primary go through 9da-4804- [facility] x8d-0y3760 [facility] c3b5d3 [facility] , [facility] must 695m9o39-c 12/29 12/29 [facility] [id number] /2013 [facility] [phone] [id number] [id number] 12/29 12/29 [facility] [id number] /2013 [facility] [id number] [facility] [id number] [facility] [id number] 12/29 12/29 [facility] [id number] [facility] [id number] [facility] [id number] [facility] [id number] 12/29 12/29 [facility] [id number] [facility] [id number] Care [facility] [id number] [place] [facility] [id number] 12/29 12/29 [facility] go through 420-456f-9 [facility] 2dd-4b1f04 [facility] [id number] [facility] [place] [facility] [id number] 12/29 12/29 [facility] go through 2r5-80t7-h /2013 [facility] [id number] [facility] [id number] [facility] [place] [facility] [id number]-f 12/29 12/29 [facility] go through b83-3351-i /2013 [facility] [id number] [facility] [id number] [facility] [place] [facility] 57b1vcz9-h 12/29 12/29 [facility] go through dc9-4e77-a /2013 [facility] [id number] [facility] [id number] [facility] [place] [facility] 3l5d27y6-3 12/29 12/29 [facility] go through 37e-4b4c-a /2013 [facility] [id number] [facility] [id number] [facility] [place] [facility] [id number] 12/29 12/29 [facility] go through 704-4049-b /2013 [facility] [id number]-8zg776 [facility] [id number] [facility] [place] [facility] [id number] 12/29 12/29 [facility] go through 50b-40c2-8 /2013 [facility] [id number] [facility] [id number] [facility] [place] [facility] q32hv81u-6 12/29 12/29 [facility] go through 725-40e7- [facility] 3f6-27bi53 [facility] [id number] [facility] [place] [facility] 589v2847-1 12/29 12/29 [facility] go through 879-443b-9 [facility] 879-f1b62f [facility] [id number] [facility] [place] Pen needles [id number]-z 01/08 01/08 [facility] refill o3e-7007-t /2013 [facility] [id number] [facility] 653d87 [facility] [place] [facility] [id number] 01/08 01/08 [facility] refill 2ea-49b9-b /2013 [facility] [id number]-[id number] [facility] a7cba0 [facility] [place] [facility] [id number]-a 01/08 01/08 [facility] refill 8ab-4795-8 /2013 [facility] [id number] [facility] [id number] [facility] [place] [facility] 3vjq08m1-7 01/08 01/08 [facility] refill q18-9h3t-t /2013 [facility] [phone] [facility] 5ae3e3 [facility] [place] [facility] 9am7p198-w 01/08 01/08 [facility] refill 369-4d85-a /2013 [facility] [id number] [facility] [id number] [facility] [place] [facility] 97wvh760-1 01/08 01/08 [facility] refill 4cb-4a18-b /2013 [facility] [id number] [facility] [id number] [facility] [place] [facility] e272bfn0-3 01/08 01/08 [facility] refill 903-48e6-a /2013 [facility] [id number] [facility] [id number] [facility] [place] [facility] [id number]-u 01/08 01/08 [facility] refill ba3-4c6e-a /2013 [facility] die [id number]-[id number] [facility] c73f7f [facility] [place] [facility] 308o13wk-h 01/08 01/08 [facility] refill 9v5-404t-p /2013 [facility] [id number] [facility] 2ebf2f [facility] [place] [facility] [id number] 01/08 01/08 [facility] refill 66a-487b-b /2013 [facility] [id number] [facility] b33ce2 [facility] [place] [facility] q33bg4dq-9 01/08 01/08 [facility] refill 7fa-4d01-b /2013 [facility] [id number] [facility] [id number] [facility] [place] [facility] [id number] 01/08 01/08 [facility] refill 9m3-4ch0-6 /2013 [facility] [id number]-[id number] [facility] f78d77 [facility] [place] [facility] 85j2xhse-u 01/08 01/08 [facility] refill q13-8h8j-w /2013 [facility] [id number]-36fcf3 [facility] b9k406 [facility] [place] [facility] es5a2i9l-1 01/08 01/08 [facility] refill 847-431e-8 /2013 [facility] [id number] [facility] [id number] [facility] [place] [facility] 5a35k6gl-z 01/08 01/08 [facility] refill 897-461d-b /2013 [facility] [id number] [facility] 463a8b [facility] [place] [facility] [id number]-5 01/08 01/08 [facility] refill 58c-4c89-b /2013 [facility] [id number] [facility] 6d0ff0 [facility] [place] [facility] [id number] 01/08 01/08 [facility] refill 036-4d16-a /2013 [facility] [id number] [facility] 4c8ddf [facility] [place] [facility] [id number] 01/08 01/08 [facility] refill fbe-487c-8 /2013 [facility] [id number]-[id number] [facility] [id number] [facility] [place] [facility] [id number]-v 01/08 01/08 [facility] refill t39-7u06-2 /2013 [facility] [id number] [facility] [id number] [facility] [place] [facility] [id number]-[id number] 01/08 01/08 [facility] refill p5l-3227-2 /2013 [facility] [id number] [facility] [id number] [facility] [place] [facility] [id number]-m 01/08 01/08 [facility] refill m77-6c36-n /2013 [facility] [id number] [facility] 4bc04e [facility] [place] [facility] [id number] 01/08 01/08 [facility] refill q71-644j-l /2013 [facility] [id number] [facility] [id number] [facility] [place] [facility] [id number] 01/08 01/08 [facility] refill 4b9-55tk-d /2013 [facility] [id number] [facility] 5b93c7 [facility] [place] [facility] 21o652nk-r 01/08 01/08 [facility] refill q7x-5699-6 /2013 [facility] [id number] [facility] [id number] [facility] [place] [facility] [id number]-a 01/08 01/08 NE [facility] refill 997-41ab-b /2013 [facility] [id number] [facility] [id number] [facility] [place] [facility] [id number] 01/08 01/08 [facility] refill eb1-4a8e-b /2013 [facility] [id number]-eb0a09 [facility] [id number] [facility] [place] [facility] [id number]-9 01/08 01/08 [facility] refill 3r9-202w-2 /2013 [facility] [id number]-[id number] [facility] [id number] [facility] [place] [facility] [id number]-5 01/08 01/08 [facility] refill 1aa-42a2- /2013 [facility] [id number] [facility] 4b11a6 [facility] [place] [facility] 7038xo9e-n 01/08 01/08 [facility] refill g8k-8539-p /2013 [facility] [id number] [facility] [id number] [facility] [place] [facility] [id number]-w 01/08 01/08 [facility] refill 01e-4c94-b /2013 [facility] [id number]-23bb2d [facility] b55ffb [facility] [place] [facility] [id number] 01/08 01/08 [facility] refill ca5-441e-b /2013 [facility] [id number] [facility] ca92e4 [facility] [place] [facility] 60tv268o-2 01/08 01/08 [facility] refill 53d-48ea- /2013 [facility] [id number] [facility] 5yb669 [facility] [place] [facility] 0537v0is-8 01/08 01/08 [facility] Primary refill 1da-43d2-b /2013 [facility] [id number] [facility] 0f41af [facility] Unknown [id number] 01/08 01/08 NE [facility] eb5-419c-9 /2013 [facility] p0i-97yu26 [facility] [id number] [facility] [place] [facility] Unknown 28099rdw-4 01/08 01/08 [facility] 2ed-40d7-b /2013 [facility] r4g-t10k48 [facility] 1777a3 [facility] [place] [facility] [id number]-6 01/08 01/08 [facility] 1y1-9999-o /2013 [facility] y69-3s4n50 [facility] [id number] [facility] [place] [facility] [id number] 01/08 01/08 [facility] 818-44ce-a /2013 [facility] 68f-a8y400 [facility] [id number] [facility] [place] [facility] [id number] 01/08 01/08 [facility] 6t5-1r16-e /2013 [facility] 719-180c3a [facility] 8ef9db [facility] [place] [facility] [id number] 01/08 01/08 [facility] s3z-1z08-z /2013 [facility] 6s9-fkucdm [facility] 778c7b [facility] [place] [facility] [id number]-5 01/08 01/08 [facility] 010-4a65- [facility] 759-7yg946 [facility] 726c45 [facility] [place] [facility] Unknown 601hyp63-1 01/08 01/08 [facility] 46e-491a- [facility] 853-f05c6c [facility] 90b9ca [facility] [place] [facility] 7zyho991-1 01/08 01/08 [facility] 5ed-472b- [facility] 910-4cc3a1 [facility] e48ec3 [facility] [place] [facility] [id number] 01/08 01/08 [facility] 34a-4f57- [facility] s07-84b16n [facility] 5t216t [facility] [place] [facility] [id number]-5 01/08 01/08 [facility] h02-4s45-0 [facility] b39-f8199x [facility] ae09e3 [facility] [place] [facility] 1g094icj-3 01/08 01/08 [facility] 908-4a87- [facility] 3ab-bqi506 [facility] [id number] [facility] [place] [facility] lnhuf409-p 01/08 01/08 [facility] 54b-43ce-b /2013 [facility] [phone] [facility] [id number] [facility] [place] [facility] [id number]-y 01/08 01/08 [facility] p1p-0rbm-3 /2013 [facility] fb5-065d76 [facility] a365b2 [facility] [place] [facility] Unknown [id number] 01/08 01/08 NE [facility] 002-44fd-8 /2013 [facility] 494-1f68f3 [facility] 338a05 [facility] [place] [facility] alv22di9-l 01/08 01/08 [facility] ae9-4f3c-b /2013 [facility] 15d-5886ea [facility] 3cdb3a [facility] [place] [facility] [id number]-n 01/08 01/08 NE [facility] cc6-4dcf-a /2013 [facility] p9p-3p985s [facility] b7ac2b [facility] [place] [facility] Unknown [id number] 01/08 01/08 NE Primary 557-40b6- [facility] t3k-rpx269 [facility] d8f72e [facility] [place] [facility] Unknown [id number] 01/08 01/08 [facility] p60-3h2h-9 [facility] 3dc-21ae1c [facility] [id number] [facility] [place] [facility] [id number] 01/08 01/08 NE [facility] 19b-4463-9 /2013 [facility] ee2-438c81 [facility] [id number] [facility] [place] [facility] 0051zu4w-5 01/08 01/08 NE Primary 39f-412a- [facility] be0-594da3 [facility] [id number] [facility] [place] [facility] p5p8y27j-l 01/08 01/08 NE Primary 0cb-43f3-b /2013 [facility] 3i7-0r18r9 [facility] 5e81ba [facility] [place] [facility] Unknown [id number]-a 01/08 01/08 NE Primary 030-4708- /2013 [facility] q7j-kc738c [facility] [id number] [facility] [place] [facility] kid7k587-7 01/08 01/08 NE Primary 2bd-42c5-b /2013 [facility] 4a1-d7cq1y [facility] 2c3b73 [facility] [place] [facility] Unknown [id number]-o 01/08 01/08 [facility] 8h3-719r-5 /2013 [facility] 556-9397f9 [facility] cceb44 [facility] [place] [facility] Unknown ab04xg1r-4 01/08 01/08 NE Primary bd3-4e9d- /2013 [facility] 772-6459fe [facility] 546b3b [facility] [place] [facility] Unknown 85668h7p-o 01/08 01/08 NE Primary 6p4-294w-s /2013 [facility] 29f-ca36e7 [facility] 8e3c46 [facility] [place] [facility] [id number]-2 01/08 01/08 NE Primary bd9-4177- /2013 [facility] 6cf-9985fe [facility] 3df0a3 [facility] [place] [facility] Unknown [id number]-p 01/08 01/08 NE Primary 5a1-42oi-7 /2013 [facility] 85f-3e98cd [facility] ed98e5 [facility] [place] [facility] Unknown 7l044t1j-4 01/08 01/08 NE Primary 6d1-3g06-o /2013 [facility] 4p0-11lgry [facility] c427b8 [facility] [place] [facility] Unknown [id number]-9 01/08 01/08 NE Primary l7v-3838-z /2013 [facility] 827-e86dba [facility] 0b19ec [facility] [place] [facility] Unknown [id number] 01/08 01/08 NE Primary 063-4475-a /2013 [facility] ffe-sa434s [facility] u6w835 [facility] [place] [facility] Unknown [id number] 01/08 01/08 NE Primary 876-4cf4-b /2013 [facility] 6n7-685704 [facility] f8bac1 [facility]-Up cd1w002j-k 03/16 03/16 NE Primary medication 34f-4d68-b /2013 [facility] 186-19ad5b [facility] [id number] [facility] [place] [facility]-Up e55fn0hj-3 03/16 03/16 NE Primary medication 759-4ccb-b /2013 [facility] 120-846f89 [facility] [id number] [facility] Follow-Up 97zp9722-6 03/16 03/16 NE Primary medication 045-4d5f- [facility] 6ae-6c4f19 [facility] [id number] [facility] Follow-Up 863f4zv6-d 03/16 03/16 NE Primary medication de0-42d6- [facility] p27-ffis65 [facility] bab6f1 [facility] Follow-Up rk00i513-7 03/16 03/16 NE Primary medication 326-42c3-a /2013 [facility] dcf-9zb333 [facility] [id number] [facility] Follow-Up [id number]-t 03/16 03/16 NE Primary medication 568-49ce- [facility] 316-98c6ad [facility] 027c12 [facility] Follow-Up p6cs3394-w 03/16 03/16 NE Primary medication 562-47c9- [facility] 608-97acb1 [facility] 6h411g [facility] Follow-Up 1yq3czd7-8 03/16 03/16 NE Primary medication 9ff-4005-a /2013 [facility] 43d-c61f9d [facility] 82f24c [facility] Follow-Up 4x7g36s0-i 03/16 03/16 NE Primary medication 68a-4552- [facility] 0bf-079883 [facility] c58e54 [facility] Follow-Up l27ib6w9-6 03/16 03/16 NE Primary medication fb6-4664-a /2013 [facility] ccd-70cd80 [facility] [id number] [facility] Follow-Up p6e871s2-4 03/16 03/16 NE Primary medication 90b-43e1-a /2013 [facility] 8z5-3528v5 [facility] 2f89a9 [facility] Follow-Up p7p3260p-7 03/16 03/16 NE Primary medication 0y3-8a13-i /2013 [facility] 92d-1cl461 [facility] dcd34b [facility] Follow-Up a50zcny5-6 03/16 03/16 NE Primary medication 230-4982-b /2013 [facility] 38e-t0655d [facility] [id number] [facility] Follow-Up 32d546v5-c 03/16 03/16 NE Primary medication 437-47d3-a /2013 [facility] bb2-xk4533 [facility] 8ca86b [facility] Follow-Up e84e3nrr-6 03/16 03/16 NE Primary medication 397-4741-8 /2013 [facility] m75-1x65i8 [facility] d8bedb [facility] Follow-Up iwkm9p86-n 03/16 03/16 NE Primary medication fb6-4797- [facility] 6g0-947r6r [facility] 63bca5 [facility] Follow-Up [id number] 03/16 03/16 NE Primary medication b1s-6y5b-y /2013 [facility] 6db-7945ac [facility] 0c4f03 [facility] Follow-Up 81oni03x-9 03/16 03/16 NE Primary medication 2e0-4f4n-7 [facility] d02-0q8208 [facility] [id number] [facility] Follow-Up h110nxq1-r 03/16 03/16 NE Primary medication c5l-341o-2 [facility] z86-5z6280 [facility] f9de5e [facility] Follow-Up 2f6yymnk-8 03/16 03/16 NE Primary medication b3y-844g-9 [facility] 56e-e817b1 [facility] [id number] [facility] Follow-Up [id number] 03/16 03/16 NE Primary medication 819-4964-a [facility] 2df-6ca27d [facility] 9f1beb [facility] Follow-Up b8jwomt7-7 03/16 03/16 NE Primary medication c8z-27hg-4 /2013 [facility] 01b-020eac [facility] ae3e79 [facility] Follow-Up 76i16w67-m 03/16 03/16 NE Primary medication e27-0a3i-7 [facility] aee-f3ee33 [facility] af7ec6 [facility] Follow-Up 5727nq69-9 03/16 03/16 NE Primary [facility] faa[facility]4da7- [facility]7-8otsk7 [facility] 0dfbba [facility] [place] [facility] Follow-Up 599z3bf2-9 03/16 03/16 NE Primary medication 4dc-4c6b-b [facility] 0a6-nlo7i5 [facility] 93c58f [facility] [place] [facility] Follow-Up 941fq359-2 03/16 03/16 NE Primary medication 07d-4c20- P [facility] j30-694l0q [facility] ua3150 [facility] Follow-Up [id number] 03/16 03/16 NE Primary medication r2k-2ma0-1 [facility] 0[facility]-f2b89b [facility] 29efab [facility] [place] [facility] Follow-Up 6q93xxr2-4 03/16 03/16 NE Primary medication x89-274d-f /2013 [facility] y05-631a77 [facility] r1l489 [facility] Follow-Up [id number]-d 03/16 03/16 NE Primary medication 2p2-9871-x /2013 [facility] 411-3c4013 [facility] 94u173 [facility] Follow-Up 9b137qu3-r 03/16 03/16 NE Primary medication u27-73u3-z /2013 [facility] 117-554c8b [facility] [id number] [facility] [place] ref[place] 1ovcp9m2-b 03/18 03/18 NE Primary Naproxen 1ac-474c-a /2013 [facility] 627-fcf74b [facility] 72d71c [facility] [place] ref[place] 2lpd73e2-o 03/18 03/18 NE Primary Naproxen x82-83tj-g /2013 [facility] 607-0eaf69 [facility] 911c6a [facility] [place] ref[place] on 124v0bt5-5 03/18 03/18 NE Primary Naproxen 615-4cfb-b /2013 [facility] c77-8k604d [facility] d8d2fd [facility] [place] [facility] ref[facility] on 999y697e-l 03/18 03/18 NE Primary Naproxen ded-407f-9 /2013 [facility] 1af-f4b0fb [facility] 4f1b54 [facility] [place] [facility] ref[facility] on 56c5544g-p 03/18 03/18 NE Primary Naproxen 8l1-99no-a /2013 [facility] 95b-e07a22 [facility] 6b6d77 [facility] [place] [facility] ref[facility] on 64614450-3 03/18 03/18 NE Primary Naproxen 444-4561- [facility] 35b-bd3bcf [facility] 61383q [facility] [place] ref[facility] [place] 2b80ar46-8 03/18 03/18 NE Primary Naproxen u74-9a44-w /2013 [facility] 3db-df3da4 [facility] 5d7fad [facility] [place] [facility] ref[facility] on r7x0rim8-k 03/18 03/18 NE Primary Naproxen c65-3978-f /2013 [facility] x2d-e4fh1p [facility] x4293d [facility] [place] ref[facility] on tn6n07a8-5 03/18 03/18 NE Primary Naproxen kalyani-499a-9 /2013 [facility] g95-505z41 [facility] [id number] [facility] [place] ref[place] on 739488pr-8 03/18 03/18 NE Primary Naproxen fb5-4186-a /2013 [facility] db7-5bfa66 [facility] 19d4f1 [facility] [place] [facility] ref[facility] on 6tax729s-6 03/18 03/18 NE Primary Naproxen u79-7296-k /2013 [facility] bf9-585712 [facility] 5031d4 [facility] [place] [facility] ref[facility] on 98o988md-g 03/18 03/18 NE Primary Naproxen p9v-0edz-5 /2013 [facility] 29b-5y904a [facility] 9324e0 [facility] [place] [facility] ref[facility] on 27su95hw-7 03/18 03/18 NE Primary Naproxen 194-4d93-9 [facility] 4aa-6dd8f1 [facility] a6q713 [facility] [place] [facility] ref[facility] on 795090f3-4 03/18 03/18 NE Primary Naproxen 185-41e7-b /2013 [facility] v33-yll97w [facility] 3342a4 [facility] [place] [facility] ref[facility] on 8364b912-h 03/18 03/18 NE Primary Naproxen 0x3-90u5-9 [facility] f3k-65138b [facility] swu346 [facility] [place] [facility] ref[facility] on 2tzt2550-l 03/18 03/18 NE Primary Naproxen 6fc-42ce-b /2013 [facility] 61d-23m480 [facility] d39beb [facility] [place] [facility] ref[facility] on ueu8ti0g-x 03/18 03/18 NE Primary Naproxen 230-4934-a /2013 [facility] 209-c42464 [facility] b21d38 [facility] [place] [facility] ref[facility] on 634359fw-1 03/18 03/18 NE Primary Naproxen 768-4dc6-8 /2013 [facility] 5bc-7a27f1 [facility] 9100c7 [facility] [place] [facility] ref[facility] on goc8u0sf-8 03/18 03/18 NE Primary Naproxen y8m-9zh4-5 /2013 [facility] e86-p8i58s [facility] 2dc11c [facility] [place] [facility] ref[facility] on 2xp4t723-4 03/18 03/18 NE Primary Naproxen 294-4e73-b /2013 [facility] v04-51b74r [facility] 07278e [facility] [place] ref[facility] 84f76xo6-7 03/18 03/18 NE Primary Naproxen 7p0-41x2-8 /2013 [facility] 42a-8o857m [facility] iu6844 [facility] [place] [facility] ref[facility] 3soc6byh-6 03/18 03/18 NE Primary Naproxen 6v5-4cp8-3 /2013 [facility] 1d1-93q685 [facility] 0712bf [facility] [place] [facility] ref[facility] on z9ls7440-5 03/18 03/18 NE Primary Naproxen 64e-4452-b /2013 [facility] r97-55z7um [facility] 1398ca [facility] [place] [facility] ref[facility] [place] 13qen3zx-l 03/18 03/18 NE Primary Naproxen 1ae-44be-8 /2013 [facility] 96a-d22b63 [facility] aebb0d [facility] [place] [facility] ref[facility] c3013s5x-9 03/18 03/18 NE Primary Naproxen m16-77mz-f /2013 [facility] 867-rg1884 [facility] u21466 [facility] [place] [facility] ref[facility] on 7p4885c2-q 03/18 03/18 NE Primary Naproxen ce0-47bc-8 [facility] 729-v8k528 [facility] 3ae9ab [facility] [place] [facility] ref[facility] on 4be0f3g0-6 03/18 03/18 NE Primary Naproxen 0da-4390-9 /2013 [facility] i40-22z37r [facility] ab79d6 [facility] [place] [facility] ref[facility] on 3890tg35-5 03/18 03/18 NE Primary Naproxen 09c-4760-8 /2013 [facility] 689-d9f03e [facility] f22f7d [facility] [place] [facility] on 47810209-1 03/18 03/18 NE Primary Naproxen v0b-1310-4 [facility] 323-9e20a4 [facility] b192fa [facility] [place] [facility] ref[facility] f5k784zs-7 03/18 03/18 NE Primary Naproxen 018-4472-8 /2013 [facility] 9b8-o2d5pa [facility] [id number] [facility] [place] [facility] poss UTI 4390ba2u-3 04/16 04/16 N E Primary 9de-4d11-b /2013 [facility] 684-v7m082 [facility] 3291d0 [facility] [place] [facility] poss UTI 850m4td8-c 04/16 04/16 N E Primary 193-4087-b /2013 [facility] t03-a65d50 [facility] 013b23 [facility] [place] [facility] poss UTI [id number] 04/16 04/16 N E Primary 289-4625- /2013 [facility] 13f-99b51b [facility] 77895q [facility] [place] [facility] poss UTI 8a3xtf24-d 04/16 04/16 N E Primary cf5-47d9-b /2013 [facility] e7k-296814 [facility] b9ad30 [facility] [place] [facility] poss UTI wj5629ji-1 04/16 04/16 N E Primary e59-190y-1 [facility] 84d-31j119 [facility] poss UTI 25ey64z2-3 04/16 04/16 N E Primary 479-4e13- [facility] 521-5q764j [facility] 93684x [facility] [place] [facility] poss UTI qu89rl7g-c 04/16 04/16 N E Primary 7ce-4f95-8 /2013 [facility] w82-74je65 [facility] f72b74 [facility] [place] [facility] poss UTI [id number] 04/16 04/16 N E Primary 2cc-4cb4- [facility] q79-576504 [facility] 91d97a [facility] [place] [facility] poss UTI 5fyeki3n-5 04/16 04/16 N E Primary 933-48b5-b /2013 [facility] 00d-397273 [facility] 223ffb [facility] [place] [facility] poss UTI 5ny985b0-7 04/16 04/16 N E Primary 721-41f4- [facility] 58c-0c38dd [facility] 35f3a5 [facility] [place] [facility] poss UTI 7mg7s4bx-5 04/16 04/16 N E Primary fbd-475f-a /2013 [facility] s00-996337 [facility] c2add7 [facility] [place] [facility] poss UTI 65sge206-e 04/16 04/16 N E Primary 103-43b1-8 /2013 [facility] u51-7339se [facility] 5983c3 [facility] [place] [facility] poss UTI [id number] 04/16 04/16 N E Primary x8q-820l-d /2013 [facility] 921-7f36c7 [facility] 17fd66 [facility] [place] [facility] poss UTI [id number] 04/16 04/16 N E Primary 43b-498e-b /2013 [facility] 2p8-m1e672 [facility] 7a26f6 [facility] [place] [facility] poss UTI [id number] 04/16 04/16 N E Primary 60b-4e2e-a /2013 [facility] bb3-9afa05 [facility] zu393f [facility] poss UTI [id number]-w 04/16 04/16 N E Primary 68a-4783-a /2013 [facility] eb8-450ede [facility] ec05d0 [facility] poss UTI [id number] 04/16 04/16 N E Primary ae3-43a0-a /2013 [facility] 091-66a82d [facility] 914fa2 [facility] poss UTI [id number] 04/16 04/16 N E Primary g64-3096-6 [facility] 53d-58ba65 [facility] 52459g [facility] UTI [id number] 04/16 04/16 N E Primary 645-41f0- [facility] 327-c5ba57 [facility] 0b65ab [facility] [place] [facility] poss UTI [id number]-7 04/16 04/16 N E Primary 354-4fd2- [facility] 569-ym3857 [facility] d4cb0a [facility] poss UTI [id number] 04/16 04/16 N E Primary ff3-421e- [facility] fc6-9k4809 [facility] 299de2 [facility] poss UTI [id number] 04/16 04/16 N E Primary 75b-427b- /2013 [facility] 29f-dc58ad [facility] [id number] [facility] [id number] 04/16 04/16 N [facility] [id number] /2013 [facility] [id number] [facility] [id number] [facility] [id number] 04/16 04/16 N [facility] [id number] /2013 [facility] [id number] [facility] [id number] [facility] [place] [facility] [id number] 04/16 04/16 [facility] [id number]- [facility] [id number] [facility] [id number] [facility] [id number] 04/16 04/16 [facility] 97b-[id number]- [facility] [id number] [facility] [id number] [facility] [id number] 04/16 04/16 [facility] [id number] /2013 [facility] [id number] [facility] [id number] [facility] [id number] 04/16 04/16 N [facility] [id number] /2013 [facility] [id number] [facility] [id number] [place] [facility] [id number] 06/08 06/08 [facility] fosamax 83e-[id number]- [facility] [id number] [facility] [id number] [facility] [id number] 06/08 06/08 [facility] fosamax [id number] [facility] [id number] [facility] [id number] [facility] [id number] 06/08 06/08 [facility] fosamax [id number] [facility] [id number] [facility] [id number] [facility] [id number] 06/08 06/08 [facility] fosamax [id number] /2013 [facility] [id number] [facility] [id number] [facility] [id number] 06/08 06/08 [facility] fosamax [id number] /2013 [facility] [id number] [facility] [id number] [facility] [place] [facility] [id number] 06/08 06/08 [facility] fosamax 58d-4066-a /2013 [facility] [place] [id number] 06/08 06/08 [facility] fosamax 103-416f-a /2013 [facility] 05a-b5c47a [facility] 7bd6a9 [facility] [place] 898750wl-a 06/08 06/08 [facility] fosamax u6w-2t1d-2 /2013 [facility] [id number] [facility] [id number] [facility] [place] [facility] 66hx464q-2 06/08 06/08 [facility] fosamax ae0-4a50-9 /2013 [facility] ce3-90p433 [facility] 562c1a [facility] [place] [facility] 58tjinj9-o 06/08 06/08 [facility] fosamax 8u9-9z67-e /2013 [facility] 2t4-d1p38g [facility] 03b1b2 [facility] [place] [facility] [place] o4vx3150-4 06/08 06/08 [facility] fosamax 3ac-4a0f-a /2013 [facility] u93-693g3m [facility] 98fb0a [facility] [place] [facility] [place] 67obm666-8 06/08 06/08 [facility] fosamax db5-4397-b /2013 [facility] 344-7b4abb [facility] e5j830 [facility] [place] [facility] 1813p5u8-3 06/08 06/08 [facility]osamax 2e7-37p1-f /2013 [facility] 7o5-842jz5 [facility] 3cb38f [facility] [place] [facility] [place] 979jqpd3-d 06/08 06/08 [facility]osam[facility] 2t7-143c-0 /2013 [facility] 527-53122g [facility] a407ee [facility] [place] [facility] [place] 72u455l1-t 06/08 06/08 [facility] fosamax 88e-405c-a /2013 [facility] fc2-5feb40 [facility] 621db8 [facility] [place] [facility] [place] 3a4790hz-c 06/08 06/08 [facility] 329-4978-9 /2013 [facility] 4bd-5gr446 [facility] db30a9 [facility] [place] [facility] [place] 5e632259-2 06/08 06/08 [facility] 8cf-42d1- [facility] 74c-d1e8d9 [facility] 464d0c [facility] [place] [facility] [place] e0v570r8-d 06/08 06/08 [facility] 6r2-52as-6 /2013 [facility] m51-rzk3iq [facility] a5d07d [facility] [place] [facility] [place] by4811ua-2 06/08 06/08 [facility] 8j6-7x43-v /2013 [facility] 32d-9a32a5 [facility] 0363e7 [facility] [place] [facility] 27m07003-p 06/08 06/08 [facility]am[facility] 0u9-3759-1 /2013 [facility] 59f-102ac0 [facility] [id number] [facility] [place] [facility] [place] ws5fx709-1 06/08 06/08 [facility]osamax kalyani-4641-8 /2013 [facility] e74-na452i [facility] d276f3 [facility] [place] [facility] [place] 4m6jb505-g 06/08 06/08 [facility] 26d-410c-b /2013 [facility] z9f-4yl141 [facility] c4f5ec [facility] [place] [facility] [place] 45u1at6w-d 06/08 06/08 [facility] def-4b53-9 /2013 [facility] 3bb-e04dbf [facility] 96fe06 [facility] [place] [facility] no8w0iaq-8 06/08 06/08 [facility] 3x7-317k-b /2013 [facility] u58-det891 [facility] 2ddc0f [facility] [place] [facility] 042l6j6q-0 06/08 06/08 [facility] ef4-4c05-8 /2013 [facility] 89c-4p4154 [facility] [id number] [facility] [place] [facility] ru3760ia-r 06/08 06/08 [facility] ef7-4cdb-a /2013 [facility] 96d-219b46 [facility] r9620l [facility] [place] [facility] 639w044f-8 06/08 06/08 [facility] b04-3r3p-r /2013 [facility] caa-276bde [facility] fff97a [facility] [place] [facility] 83qql63h-q 07/13 07/13 [facility] 4ba-420a-a /2014 [facility] d30-035968 [facility] [id number] [facility] [place] [facility] 417ha5ga-1 07/13 07/13 [facility] 8k2-4hi8-f /2014 [facility] 1g0-cjhh49 [facility] [id number] [facility] [place] [facility] x43x03n8-i 07/13 07/13 [facility] ddd-4370-8 /2014 [facility] 1af-ppw983 [facility] 83e9a2 [facility] [place] [facility] cy34m311-8 07/13 07/13 [facility] 169-4b1c-9 /2014 [facility] k27-r1493d [facility] a913bb [facility] [place] [facility] ho6u7075-4 07/13 07/13 [facility] 815-46df-a /2014 [facility] 6u0-a23gl6 [facility] 7a1c6f [facility] [place] [facility] [id number]-8 07/13 07/13 [facility] 15d-4eac-9 /2014 [facility] 54d-8e50d4 [facility] b08ecd [facility] [place] [facility] 908jyyl9-5 07/13 07/13 [facility] 855-477e-8 [facility] 71f-dyc785 [facility] 9b68df [facility] [place] [facility] k6280j18-[id number] 07/13 07/13 [facility] m72-78p0-n /2014 [facility] 8h6-o45384 [facility] cefe87 [facility] [place] [facility] [id number] 07/13 07/13 [facility] q54-9cn0-e /2014 [facility] 74e-b5ccec [facility] [id number] [facility] [place] [facility] 2i35hb1n-2 07/13 07/13 [facility] x10-0jr9-3 [facility] afb-03q352 [facility] 7m140q [facility] [place] [facility] 74os6f39-d 07/13 07/13 [facility] 4h4-8jj6-5 [facility] s2a-41r099 [facility] c918f9 [facility] [place] [facility] f4xqc11e-r 07/13 07/13 [facility] e75-877o-b /2014 [facility] 636-b74e6f [facility] 29d03a [facility] [place] [facility] 83i84092-8 07/13 07/13 [facility] 325-4720-b /2014 [facility] 04e-fba3e4 [facility] 737287 [facility] [place] [facility] h21t3f71-7 07/13 07/13 [facility] cd0-4179-9 /2014 [facility] 5n6-572737 [facility] 49y499 [facility] [place] [facility] 6wa3df26-b 07/13 07/13 [facility] 2k3-4iy0-t /2014 [facility] cc5-kja936 [facility] d06e84 [facility] [place] [facility] 660i87g6-n 07/13 07/13 [facility] x80-0p8d-4 [facility] 8b4-11eobl [facility] 777125 [facility] [place] [facility] 23jw8p6i-1 07/13 07/13 [facility] eb7-4744-b /2014 [facility] a6p-630k61 [facility] 5bc6b8 [facility] [place] [facility] 92y16res-q 07/13 07/13 [facility] 355-4252-a /2014 [facility] d9y-032574 [facility] 9da6a1 [facility] [place] [facility] g57f1225-7 07/13 07/13 [facility] t36-2dju-r /2014 [facility] 77c-61b8c1 [facility] 0ef7f1 [facility] [place] [facility] 1197j52m-3 07/13 07/13 [facility] 061-48a7-a /2014 [facility] 052-8d5a82 [facility] [id number] [facility] [place] [facility] en5o9355-z 07/13 07/13 [facility] 863-49f5-8 /2014 [facility] 468-0bn787 [facility] 556b15 [facility] [place] Unknown 896493si-7 07/13 07/13 [facility] w30-0078-p /2014 [facility] m80-pfjwxl [facility] d3f9b5 [facility] [place] [facility] z1av2763-5 07/13 07/13 [facility] 6n3-3q62-1 [facility] 96c-b7da7c [facility] oo4824 [facility] [place] [facility] vbav8283-9 07/13 07/13 [facility] t3x-7b39-4 /2014 [facility] p4v-7v4s88 [facility] bf9ded [facility] [place] [facility] 8ygg24i4-m 07/13 07/13 [facility] cdc-47a3-9 /2014 [facility] 4i9-dsp9u3 [facility] 3f7f8a [facility] [place] [facility] 579p2m67-0 07/13 07/13 [facility] r8i-2zi3-v /2014 [facility] 586-558188 [facility] 92n990 [facility] [place] cold 8iyzj4xu-7 07/17 07/17 [facility] 53c-490e-b /2014 [facility] 28f-80b2e1 [facility] 22017o [facility] [place] [facility] cold [id number] 07/17 07/17 [facility] 85b-48aa-8 /2014 [facility] ae5-ae5f99 [facility] 01c50a [facility] [place] [facility] cold cyq07218-2 07/17 07/17 NE [facility] 40b-467e-8 /2014 [facility] r7w-x7099p [facility] fa9a86 [facility] [place] [facility] cold 3k92m9p2-9 07/17 07/17 [facility] s36-685x-0 /2014 [facility] 3o4-72q304 [facility] 9a5eff [facility] [place] [facility] 616f0txm-4 07/17 07/17 NE [facility] 4db-4ca8-9 /2014 [facility] 6dc-7004bb [facility] 08499o [facility] a30km326-z 07/17 07/17 NE Primary 9ec-40dc-b /2014 [facility] 2j7-60x4yv [facility] 81f4ad [facility] v3919206-7 07/17 07/17 NE Primary r52-01g1-5 /2014 [facility] x10-9ma7nr [facility] 18dee1 [facility] [id number] 07/17 07/17 NE [facility] z5f-492d-3 /2014 [facility] 9fd-aa6cd9 [facility] 016e6e [facility] [place] [facility] cold l20l3574-2 07/17 07/17 NE Primary e57-3u06-9 /2014 [facility] 526-38f4b4 [facility] [id number] [facility] [place] [facility] cold 82788v29-4 07/17 07/17 NE Primary 327-40b6-b /2014 [facility] 2x0-348249 [facility] [id number] [facility] [place] [facility] cold 4e08rg0e-k 07/17 07/17 NE Primary 3t5-6827-z /2014 [facility] 050-f393fa [facility] 0d70aa [facility] [place] [facility] j80a2kvp-0 07/17 07/17 NE Primary 504-4a7c-8 /2014 [facility] aab-c179ea [facility] 404a26 [facility] [place] cold 0h68hrnv-l 07/17 07/17 NE Primary 9dc-44cd-a /2014 [facility] 6j0-p43n9z [facility] 970437 [facility] [place] cold 8934x35l-1 07/17 07/17 NE Primary fcc-49bc-a /2014 [facility] 870-43675k [facility] 7414b2 [facility] [place] cold 036qp910-6 07/17 07/17 NE Primary k0z-0ka5-1 /2014 [facility] e60-ah5sjo [facility] [id number] [facility] [place] [facility] cold 8gp3m9n9-9 07/17 07/17 NE Primary w75-9512-p /2014 [facility] 311-f1f48d [facility] [id number] [facility] [place] cold q6m69609-5 07/17 07/17 NE Primary 2df-44c7-8 /2014 [facility] dd1-6jx114 [facility] 9f3c51 [facility] [place] cold j1y990g7-2 07/17 07/17 NE Primary 98d-45d1-a /2014 [facility] 2b8-627723 [facility] 2900b2 [facility] [place] cold mcg270tg-g 07/17 07/17 NE Primary 627-4dfd-b /2014 [facility] 7ec-76c08e [facility] 6n7473 [facility] [place] cold 52j3729s-9 07/17 07/17 NE Primary fe9-43b9-8 /2014 [facility] m68-8e3a74 [facility] [id number] [facility] [place] cold 06465059-8 07/17 07/17 NE Primary w96-6043-4 /2014 [facility] 3dc-679a04 [facility] 2e32c4 [facility] [place] cold 9i48v64u-4 07/17 07/17 NE Primary bcf-4482-9 /2014 [facility] 9ef-m5n471 [facility] e82d86 [facility] [place] cold 531m9dr2-5 07/17 07/17 NE Primary t05-6386-6 /2014 [facility] 4bc-6a34c7 [facility] c92c6b [facility] [place] cold 21951v59-5 07/17 07/17 NE Primary 9s0-264h-w /2014 [facility] m4d-46u9kl [facility] 9fb5ac [facility] [place] cold vci1n8i0-3 07/17 07/17 NE Primary q37-2yzf-i /2014 [facility] 928-4dd39d [facility] 477cbd [facility] [place] cough 6r794b62-n 07/24 07/24 NE Primary j7w-50s4-1 /2014 [facility] 41a-7dfa1b [facility] 2g7772 [facility] [place] cough ddl24364-4 07/24 07/24 [facility] Primary 345-48f7-b /2014 [facility] 8r4-25a56h [facility] 12u957 [facility] [place] cough 1q93v7a2-a 07/24 07/24 NE Primary dc6-42ce-a /2014 [facility] 49a-4w1318 [facility] uj5269 [facility] [place] cough 2p7880pt-4 07/24 07/24 NE Primary 3s1-9093-7 /2014 [facility] i97-l3d05z [facility] 830fca [facility] [place] cough 7d71577p-b 07/24 07/24 NE Primary m14-4524-0 /2014 [facility] 839-8to373 [facility] 9e3a0a [facility] [place] cough v60mxq4s-9 07/24 07/24 NE Primary 811-4402-b /2014 [facility] v8w-nb3147 [facility] f66b30 [facility] [place] cough j3csu3v8-q 07/24 07/24 NE Primary 731-415c-8 /2014 [facility] 9ea-3858bc [facility] 845e6d [facility] [place] cough w631osb7-8 07/24 07/24 NE Primary 75a-45f1-b /2014 [facility] 263-35u463 [facility] 4a7f03 [facility] [place] cough 490agr19-9 07/24 07/24 NE Primary 211-4474-9 /2014 [facility] bf5-53f8fb [facility] 467671 [facility] [place] cough 4tddfr36-l 07/24 07/24 [facility] Primary 780-49eb-9 /2014 [facility] 6g6-18085i [facility] 4b2a18 [facility] [place] cough 1671325s-i 07/24 07/24 [facility] Primary 2g4-178q-0 /2014 [facility] 27c-v9u733 [facility] 29cdb1 [facility] [place] cough x54447p1-5 07/24 07/24 NE Primary 697-41c5-8 /2014 [facility] 237-415349 [facility] ceaea3 [facility] [place] cough vf3879hx-u 07/24 07/24 NE Primary cdb-4286-8 /2014 [facility] 9cd-e569d0 [facility] 41072c [facility] [place] cough 0brr1662-9 07/24 07/24 NE Primary 7fb-412b-8 /2014 [facility] 603-o40051 [facility] bf64fe [facility] [place] cough 150760k4-9 07/24 07/24 NE Primary 236-4729-8 /2014 [facility] a0o-57qq63 [facility] 0e6c93 [facility] [place] cough [id number] 07/24 07/24 NE Primary 79e-40a4-9 /2014 [facility] 88e-6a8d8c [facility] 887c08 [facility] [place] cough q980w34b-4 07/24 07/24 NE Primary j5f-8036-d /2014 [facility] l77-v1098h [facility] 07c219 [facility] [place] cough rb1p2407-9 07/24 07/24 NE Primary 865-48cf-a /2014 [facility] 4x2-0q2hk9 [facility] 387c23 [facility] [place] cough 7totre7m-9 07/24 07/24 NE Primary w42-9bv0-9 /2014 [facility] 237-57cca5 [facility] 8918dd [facility] [place] cough 21h6102v-4 07/24 07/24 NE Primary 7h4-548n-6 /2014 [facility] 526-53d6ee [facility] fca9c0 [facility] [place] cough q1j12v72-0 07/24 07/24 NE Primary 6o1-9t5b-g /2014 [facility] 92d-24f611 [facility] 810458 [facility] [place] cough 8786763p-w 07/24 07/24 NE Primary 0t1-21k8-o /2014 [facility] 670-52e6f9 [facility] d0ec67 [facility] [place] cough 94bcfv46-6 07/24 07/24 NE Primary 23f-4f05-a /2014 [facility] 7fd-5df2ad [facility] bbbc2b [facility] [place] cough uyp36odg-6 07/24 07/24 NE Primary 298-41a9-8 /2014 [facility] 4f1-89683t [facility] 441b85 [facility] [place] 48679qc6-e 08/11 08/11 NE Primary xanax 988-44d1-8 /2014 [facility] 3cb-5c3392 [facility] 9804b4 [facility] [place] [facility] z8913wvc-5 08/11 08/11 NE Primary xanax dd6-4e5d-8 /2014 [facility] bdf-466128 [facility] cf2a80 [facility] [place] [facility] [place] a4j74a33-s 08/11 08/11 NE Primary xanax 2p4-3p65-q /2014 [facility] 8b5-ffr1w8 [facility] 0y6132 [facility] [place] [facility] 5i9hz800-g 08/11 08/11 NE Primary xanax 267-426d-b /2014 [facility] cd5-102b8e [facility] 40092e [facility] [place] ref[place] 47565j96-4 08/11 08/11 NE Primary xanax 08d-409a-9 /2014 [facility] eee-006535 [facility] b13e06 [facility] [place] ref[place] 81773sz3-4 08/11 08/11 NE Primary xanax 1k1-6h42-8 /2014 [facility] afe-ae4c7e [facility] f918b7 [facility] [place] [facility] g0pmvc81-9 08/11 08/11 NE Primary xanax w70-6g71-k /2014 [facility] 80c-f8aa25 [facility] ff4d67 [facility] [place] ref[place] w97zq3jl-9 08/11 08/11 NE Primary xanax dbb-4418-a /2014 [facility] 434-619ab3 [facility] h77124 [facility] [place] [facility] 5u09oc8d-0 08/11 08/11 NE Primary xanax i21-138q-7 /2014 [facility] 1h1-ds0n55 [facility] 286367 [facility] [place] [facility] 4ns7b4f0-7 08/11 08/11 NE Primary xanax 2y2-2o16-o /2014 [facility] 9r1-rn536n [facility] q09877 [facility] [place] [facility] 60r67r5i-4 08/11 08/11 NE Primary xanax 518-44fa-a /2014 [facility] 987-ee57a1 [facility] y6635m [facility] [place] [facility] 375h81fz-5 08/11 08/11 NE Primary xanax 223-41d2-a /2014 [facility] 4a5-1558a7 [facility] 3460bd [facility] [place] [facility] 1gji5146-5 08/11 08/11 NE Primary xanax 974-4e36- /2014 [facility] n67-f28244 [facility] 8c1204 [facility] [place] [facility] ky68l4xd-1 08/11 08/11 NE Primary xanax 45b-445f- /2014 [facility] 8cd-723dfb [facility] f261bf [facility] [place] [facility] n89p325b-8 08/11 08/11 NE Primary xanax 439-418f-9 /2014 [facility] bfb-0e3fde [facility] 1h0366 [facility] [place] [facility] [place] 4b1pss53-8 08/11 08/11 NE Primary xanax ac8-4611-b /2014 [facility] g4a-a7bm0p [facility] b726f3 [facility] [place] [facility] [place] 581l6k58-2 08/11 08/11 NE Primary xanax 0be-4f61-8 /2014 [facility] f3z-c4i41h [facility] pn335i [facility] [place] [facility] [place] i76o1w71-1 08/11 08/11 NE Primary xanax dcd-4a28-b /2014 [facility] f22-k6o7c9 [facility] aee1bb [facility] [place] [facility] 4wdf354m-8 08/11 08/11 NE Primary xanax 723-4d33-a /2014 [facility] h76-29o65v [facility] [id number] [facility] [place] [facility] 8583xmx8-2 08/11 08/11 NE Primary xanax fc3-40ee-b /2014 [facility] 0ac-487151 [facility] 0f801j [facility] [place] [facility] 042az71f-2 08/11 08/11 NE Primary xanax 76a-4a5f-a /2014 [facility] m3x-0k5374 [facility] 9c78e4 [facility] [place] [facility] [place] 5gjo52n2-2 08/11 08/11 NE Primary xanax 6fb-465f-b /2014 [facility] 1db-960f14 [facility] [id number] [facility] [place] [facility] 436c73is-w 08/11 08/11 NE Primary xanax 250-45c7-b /2014 [facility] 70a-346169 [facility] 030ff7 [facility] [place] [facility] 6338d5b8-6 08/28 08/28 NE Primary medications 702-4d33-b /2014 [facility] m56-426bp1 [facility] ef3f63 [facility] [place] ref[facility] 145i8m22-5 08/28 08/28 NE Primary medications a25-84x5-1 /2014 [facility] 4w1-860i36 [facility] c0bddd [facility] [place] [place] ref[facility] 8as678s6-7 08/28 08/28 NE Primary medications q61-87q0-9 /2014 [facility] efa-1c03d8 [facility] [id number] [facility] [place] 945002w0-f 08/28 08/28 NE Primary medications be5-4bb9-8 /2014 [facility] 3b5-k369uc [facility] 882bdd [facility] [place] [place] ref[facility] hqu0w484-5 08/28 08/28 NE Primary medications 593-489c-8 /2014 [facility] 11b-01l903 [facility] 20r378 [facility] [place] [place] [facility] s8kc5l8m-9 08/28 08/28 NE Primary medications 7m1-88m4-2 /2014 [facility] 0a6-yw2249 [facility] [id number] [facility] [place] [facility] rvf941sz-j 08/28 08/28 NE Primary medications ed8-438e-8 /2014 [facility] 65d-24f0b1 [facility] 9650ae [facility] [place] 0c66l9r6-3 08/28 08/28 NE Primary medications 11a-4c22-8 /2014 [facility] db8-545677 [facility] 18b5c8 [facility] [place] ref[facility] b586680m-5 08/28 08/28 NE Primary medications 0fb-43e5-b /2014 [facility] 74b-860545 [facility] 84z799 [facility] [place] 89428278-0 08/28 08/28 NE Primary medications 30e-42b0-9 /2014 [facility] x29-164nu0 [facility] 7694dd [facility] [place] 1965src9-o 08/28 08/28 NE Primary medications 9ed-42ae-9 /2014 [facility] 138-b5e7b8 [facility] fc83c1 [facility] [place] [facility] b328383p-3 08/28 08/28 NE Primary medications 684-44a4-a /2014 [facility] 496-0b1e1c [facility] bri551 [place] [place] [facility] l691b4j7-a 08/28 08/28 NE Primary medications ea7-4e5e-b /2014 [facility] fe7-fc3de1 [facility] 8x9342 [facility] [place] [facility] g1746k6a-9 08/28 08/28 NE Primary medications 2q4-27i4-w /2014 [facility] r88-49i5eo [facility] 568fba [place] [place] [facility] 820d058r-1 08/28 08/28 NE Primary medications w17-7d93-d /2014 [facility] 1t3-670371 [facility] 255a9f [facility] [place] [facility] 27p8g798-2 08/28 08/28 NE Primary medications a4n-3j97-5 /2014 [facility] e91-a1ik49 [facility] 5fed12 [facility] [place] [facility] x26co0p2-5 08/28 08/28 NE Primary medications k78-1ti6-g /2014 [facility] 97f-f95ff0 [facility] 26cbc0 [facility] [place] [facility] i804ieq2-8 08/28 08/28 NE Primary medications z09-5y11-9 /2014 [facility] 26a-1da99a [facility] a328af [facility] [place] [facility] i80a22f2-8 08/28 08/28 NE Primary medications 835-4c1b-9 /2014 [facility] 3p4-2zz1t7 [facility] 76bf03 [facility] [place] [facility] j926mv79-4 08/28 08/28 NE Primary medications 62c-484f-b /2014 [facility] 22b-69df17 [facility] 190eca [place] [facility] [place] [facility] 31136v53-9 08/28 08/28 NE Primary medications 1cb-4d0e-a /2014 [facility] 389-e0n586 [facility] 00c7d9 [facility] [place] [facility] 19el20i5-p 08/28 08/28 NE Primary medications 940-49d6-9 /2014 [facility] b5v-gven07 [facility] 02bed4 [facility] [place] [facility] 47o351g5-k 08/28 08/28 NE Primary medications 5m9-001v-r /2014 [facility] p99-549329 [facility] e465c3 [facility] [place] [facility] [place] 730f890l-1 09/04 09/04 NE [facility] fosamax 43f-4576-9 /2014 [facility] x46-6odm27 [facility] e188f4 [facility] [place] ref[place] on 61668a1k-5 09/04 09/04 NE Primary fosamax 262-463e-a /2014 [facility] 5bd-e780cc [facility] [id number] [facility] [place] [facility] [place] 76r75854-0 09/04 09/04 NE Primary fosamax j3o-874w-v /2014 [facility] 4k7-y30c8g [facility] 632a6f [facility] [place] ref[facility] [place] 057mq9z4-9 09/04 09/04 NE Primary fosamax 0f4-281r-v /2014 [facility] 310-e5d9e7 [facility] [id number] [facility] [place] [facility] [place] 3jx80bsa-3 09/04 09/04 NE Primary fosamax x02-54w3-3 /2014 [facility] 7m8-vx3y97 [facility] 8c6fe5 [facility] [place] ref[place] 20147ki6-6 09/04 09/04 NE Primary fosamax 5f0-0er5-0 /2014 [facility] 780-26402u [facility] a036f7 [facility] [place] [facility] [place] c8h13330-g 09/04 09/04 NE [facility] fosamax n4r-36lx-a /2014 [facility] i13-f420jr [facility] 64012d [facility] [place] [facility] [place] 3s8529r8-8 09/04 09/04 NE Primary fosamax 95a-4b61-b /2014 [facility] 673-030bc0 [facility] [id number] [facility] [place] [facility] [place] 1c7j9878-g 09/04 09/04 NE Primary fosamax 266-488a-9 /2014 [facility] fdb-879303 [facility] 16841w [facility] [place] [facility] [place] 4217v236-z 09/04 09/04 NE Primary fosamax 634-477d-b /2014 [facility] 1v6-a7iuy0 [facility] [id number] [facility] [place] [facility] [place] e247h0ja-2 09/04 09/04 NE Primary fosamax t8q-5q7p-m /2014 [facility] 594-c394fd [facility] 0b96b7 [facility] [place] [facility] [place] 289hy560-r 09/04 09/04 NE Primary fosamax fff-444a-8 /2014 [facility] 003-a9f03e [facility] 70dd7f [facility] [place] [facility] [place] f569059l-1 09/04 09/04 NE Primary fosamax 7fb-461b-b /2014 [facility] af3-38bbba [facility] fc0eea [facility] [place] [facility] [place] 0r017n33-8 09/04 09/04 NE Primary fosamax m26-8n47-6 /2014 [facility] y77-99x07l [facility] cf3efc [facility] [place] [facility] [place] 5be276oa-c 09/04 09/04 NE Primary fosamax aad-4745-9 /2014 [facility] m27-9g93d5 [facility] kd153x [facility] [place] [facility] 8a2o9044-0 09/04 09/04 NE Primary fosamax 7v3-5z24-8 /2014 [facility] 5l8-660ku7 [facility] rcg802 [facility] [place] [facility] 091984y9-m 09/04 09/04 NE [facility] fosamax i97-66ld-g /2014 [facility] 7fd-33s832 [facility] [id number] [facility] [place] [facility] 8y4mbw2b-g 09/04 09/04 NE Primary fosamax ac2-46df-8 /2014 [facility] [id number] [id number] [place] [id number] 09/04 09/04 [facility] fosamax [id number]-i /2014 [facility] [id number] [facility] [id number] [facility] [place] [facility] [place] [id number] 09/04 09/04 [facility]os[facility] [id number]-a /2014 [facility] [id number] [facility] [id number] [facility] [place] [facility] [place] [id number] 09/04 09/04 [facility]os[facility] [id number]-i /2014 [facility] [id number]-[id number] [facility] [id number] [facility] [place] [facility] [place] [id number] 09/04 09/04 [facility]osam[facility] 4df-4db9-b /2014 [facility] [id number] [facility] [id number] [facility] [place] [facility] [place] [id number] 09/04 09/04 [facility]os[facility] [id number]-y /2014 [facility] [id number] [facility] [id number] [facility] [place] [facility] [id number] 09/08 09/08 [facility] [id number]-m /2014 [facility] [id number] [facility] [id number] [facility] [place] [facility] [id number] 09/08 09/08 [facility] ef0-49a7-9 /2014 [facility] [id number] [facility] [id number] [facility] [place] [facility] [id number] 09/08 09/08 [facility] [id number]-4586-a /2014 [facility] [id number] [facility] [id number] [facility] [place] [facility] [id number] 09/08 09/08 [facility] [id number]-a /2014 [facility] [id number] [facility] [id number] [facility] [id number] 03/10 03/10 [facility] 89d-4027-a /2014 [facility] [id number] [facility] [id number] [facility] [id number] 09/08 09/08 [facility] 839-4006-9 /2014 [facility] [id number] [facility] [id number] [facility] [id number] 09/08 09/08 [facility] 220-4cc5-9 /2014 [facility] [id number] [facility] [id number] [id number] 09/08 09/08 [facility] [id number]-l /2014 [facility] [id number] [facility] [id number] [facility] [place] [facility] [id number] 09/08 09/08 [facility] [id number]-k /2014 [facility] [id number] [facility] [id number] [facility] [place] [facility] [id number] 09/08 09/08 [facility] 2i4-30a1-6 /2014 [facility] [id number] [facility] [id number] [facility] [place] [facility] [id number] 09/08 09/08 [facility] [id number]-k /2014 [facility] [id number]-[id number] [facility] [id number] [facility] [id number] 09/08 09/08 [facility] r10-4205-w /2014 [facility] [id number] [facility] [id number] [facility] [place] [facility] [id number] 09/08 09/08 [facility] [id number] /2014 [facility] [id number] [facility] [id number] [facility] [place] [facility] [id number] 09/08 09/08 [facility] 3q1-3354-8 /[facility] [id number] [facility] [place] [facility] [id number] 09/08 09/08 [facility] e9g-3684-l /2014 [facility] 022-0h619f [facility] [id number] [facility] [place] [facility] [id number] 09/08 09/08 [facility] e27-66ne-o /2014 [facility] 435-96634g [facility] b7bb72 [place] [place] [facility] [id number] 09/08 09/08 [facility] 8d8-4875-a /2014 [facility] 8u1-184ed3 [facility] [id number] [place] [facility] [place] [facility] [id number] 09/08 09/08 [facility] t0d-78f5-v /2014 [facility] n06-ya18x0 [facility] 79202p [facility] [place] [facility] [id number]-q 09/08 09/08 [facility] 762-4862-b /2014 [facility] w5n-67i9pu [facility] [id number] [place] [facility] [place] [facility] [id number] 09/08 09/08 [facility] fa6-49d7-9 /2014 [facility] 8fb-aa3b5c [facility] [id number] [facility] [place] [facility] [id number]-9 09/08 09/08 [facility] 00f-4f84-9 /2014 [facility] 223-66ffcb [facility] 4e400p [place] [facility] [place] [facility] [id number] 09/08 09/08 [facility] 386-4acc-8 /2014 [facility] 308-i62326 [facility] 11544h [place] [facility] [place] [facility] [id number] 09/08 09/08 [facility] 82b-4735-9 /2014 [facility] 055-3978c3 [facility] [id number] [facility] [place] poss [id number] 09/28 09/28 [facility] shingles 404-4955-b /2014 [facility] p4t-0wmp22 [facility] 23h362 [facility] [place] poss [id number] 09/28 09/28 [facility] shingles 7ca-4875-8 /2014 [facility] j62-y75734 [facility] 39f3e7 [place] [facility] [place] poss [id number] 09/28 09/28 [facility] shingles 94c-4372-a /2014 [facility] 1l2-64884j [facility] f10d01 [facility] [place] [facility] [id number] 09/28 09/28 [facility] shingles 9m4-4118-2 /2014 [facility] 763-248a82 [facility] 3f98be [place] [facility] [place] poss [id number] 09/28 09/28 [facility] shingles n46-0h50-3 /2014 [facility] m89-42l75h [facility] 3d6e49 [facility] [place] poss [id number] 09/28 09/28 [facility] shingles 53b-456f-8 /2014 [facility] 49c-1x316f [facility] hp762m [facility] [place] [facility] [id number] 09/28 09/28 [facility] sh[facility] m1k-1469-3 /2014 [facility] 079-17eb04 [facility] [id number] [facility] [place] [facility] [id number]-1 09/28 09/28 [facility] shingles x02-2zs5-i /2014 [facility] 2a4-7y6o38 [facility] [id number] [facility] [place] poss [id number] 09/28 09/28 [facility] shingles 8f3-3uf9-9 /2014 [facility] 462-5bfb21 [facility] da15ea [place] [place] [facility] [id number] 09/28 09/28 [facility] shingles 6ee-4fd8-9 /2014 [facility] 807-fc1bfa [facility] 736007 [facility] [place] poss [id number]-[id number] 09/28 09/28 [facility] shingles 19c-4d24-8 /2014 [facility] ff2-745349 [facility] ca9e1e [facility] [place] [facility] [id number] 09/28 09/28 [facility] shingles sánchez-4e6a-a /2014 [facility] 730-8a9960 [facility] [id number] [facility] [place] [facility] [id number] 09/28 09/28 [facility] shingles 731-4c0a-a /2014 [facility] 4u9-5y1a35 [facility] [id number] [facility] [place] [id number] 09/28 09/28 [facility] shingles 26c-4e71-8 /2014 [facility] 9ba-39812r [facility] b1c7b7 [facility] [place] poss [id number] 09/28 09/28 [facility] shingles h9k-6151-1 /2014 [facility] 9fb-58w374 [facility] bdc2e4 [facility] [place] poss [id number] 09/28 09/28 [facility] sh[facility]les l6f-0h80-v /2014 [facility] fe4-d543a9 [facility] 6x260v [facility] [place] poss [id number] 09/28 09/28 [facility] shingles 57f-4d4f-8 /2014 [facility] 722-575757 [facility] [id number] [facility] poss [id number] 09/28 09/28 [facility] Primary shingles 2cd-4023-a /2014 [facility] p13-a3ii9p [facility] f522e9 [facility] [place] poss [id number] 09/28 09/28 [facility] shingles 8fe-41cd-b /2014 [facility] 69a-46w066 [facility] [id number] [facility] [place] [facility] [id number] 09/28 09/28 [facility] shingles ebe-4568-9 /2014 [facility] 42b-49574h [facility] 6l925p [facility] [place] [facility] [id number] 09/28 09/28 [facility] shingles 660-41f2-9 /2014 [facility] [id number] [facility] eba2a3 [facility] [place] [facility] [id number] 09/28 09/28 [facility] shingles 686-47e6-8 /2014 [facility] 38c-28g794 [facility] 00d51f [facility] [place] poss [id number] 09/28 09/28 [facility] shingles 7m1-48pv-1 /2014 [facility] 54b-b2515j [facility] e62a0a [facility] [place] [facility] [id number]-[id number] 10/08 10/08 [facility] 14a-40c6-a /2014 [facility] o3z-828wlf [facility] [id number] [facility] [place] [facility] [id number] 10/08 10/08 [facility] 23c-41af-b /2014 [facility] 56a-9f6d1d [facility] 832d3d [facility] [place] [facility] [id number] 10/08 10/08 [facility] 633-41a3-a /2014 [facility] 7m5-s742ov [facility] 427a14 [facility] [place] [facility] [id number] 10/08 10/08 [facility] 165-4bff-8 /2014 [facility] r51-5buuj1 [facility] [id number] [facility] [place] [facility] [id number] 10/08 10/08 [facility] 043-4af5-9 [facility] x78-eer221 [facility] [id number] [facility] [place] [facility] [id number] 10/08 10/08 [facility] i50-844e-l /2014 [facility] e7o-98z01l [facility] 74c0a0 [facility] [place] [facility] [id number]-6 10/08 10/08 [facility] 394-4ecd-8 /2014 [facility] 7e9-1fp7xl [facility] 12fa90 [facility] [place] [facility] [id number] 10/08 10/08 [facility] 646-4c34-8 /2014 [facility] 327-67db8c [facility] 74d42c [facility] [place] [facility] [id number] 10/08 10/08 [facility] 567-4c7c-9 [facility] 682-198beb [facility] [id number] [facility] [place] [facility] [id number]-l 10/08 10/08 [facility] 6n1-41r2-5 /2014 [facility] x65-9sa3hb [facility] 780d3c [facility] [place] [facility] [id number] 10/08 10/08 [facility] fcb-4b96-9 /2014 [facility] 6o5-yobbj2 [facility] ae6054 [facility] [place] [facility] [id number] 10/08 10/08 [facility] z54-621z-v /2014 [facility] af2-9fad5d [facility] d00dc5 [facility] [place] [facility] [id number] 10/08 10/08 [facility] 7j1-2v35-a /2014 [facility] ef9-91d62b [facility] 3cedac [facility] [place] [facility] [id number] 10/08 10/08 [facility] 514-46ab-9 /2014 [facility] 3g4-0ohv1t [facility] 75d33a [facility] [place] [facility] [id number] 10/08 10/08 [facility] ef4-4ceb-8 /2014 [facility] 45e-8eb8fb [facility] 280a76 [facility] [place] [facility] [id number]-8 10/08 10/08 [facility] 5da-4763-b /2014 [facility] df7-wn5949 [facility] b3680e [facility] [place] [facility] [id number] 10/08 10/08 [facility] 38f-44c5-8 /2014 [facility] t22-2n6jad [facility] 107d53 [facility] [place] [facility] 502bafee-c 10/08 10/08 [facility] ca8-4dda-b /2014 [facility] 19e-95fc82 [facility] c1d1c7 [facility] [place] [facility] [id number] 10/08 10/08 [facility] 63b-4067-b /2014 [facility] 5n5-86967l [facility] b43d30 [facility] [place] [facility] [id number] 10/08 10/08 [facility] 8v3-7a5x-s /2014 [facility] 0f9-mgme33 [facility] [id number] [facility] [place] [facility] [id number] 10/08 10/08 [facility] v97-0n66-d /2014 [facility] 66f-8829fb [facility] zv383t [facility] [place] [facility] [id number] 10/08 10/08 [facility] w20-44n9-6 /2014 [facility] 6e1-q9121a [facility] u30785 [facility] [place] [facility] Unknown [id number] 10/08 10/08 [facility] ab7-4474-a /2014 [facility] cbd-04b0c0 [facility] 7id523 [facility] re-evaluate [id number]-k 10/19 10/19 [facility] u36-2155-i /2014 [facility] bd8-cef5d3 [facility] bf7a50 [facility] re-evaluate [id number]-j 10/19 10/19 [facility] ef3-4afb-9 /2014 [facility] 1d9-80c3yr [facility] 7fe06b [facility] re-evaluate s887o19c-6 10/19 10/19 [facility] 5fe-40ae-b /2014 [facility] i82-5977zx [facility] efbecb [facility] re-evaluate al500980-m 10/19 10/19 [facility] 85f-44db-a /2014 [facility] bd7-e5o510 [facility] [id number] [facility] re-evaluate [id number] 10/19 10/19 [facility] 4ff-4507-a /2014 [facility] dc2-9da2de [facility] c84f01 [facility] re-evaluate [id number] 10/19 10/19 [facility] 0f6-392u-n /2014 [facility] 6cc-t78194 [facility] a1209b [facility] re-evaluate [id number] 10/19 10/19 [facility] 930-4848-9 /2014 [facility] 6s8-5n9q0b [facility] 5932cf [facility] re-evaluate [id number]-t 10/19 10/19 [facility] 239-4f01-a /2014 [facility] 3aa-a3ffcc [facility] 3955eb [facility] re-evaluate tvsen182-1 10/19 10/19 [facility] i00-0961-2 /2014 [facility] af5-1b1ad0 [facility] [id number] [facility] re-evaluate st76af74-n 10/19 10/19 [facility] f3w-2v5e-q /2014 [facility] 358-fm7040 [facility] 4a2cef [facility] re-evaluate 9218a02v-p 10/19 10/19 [facility] 13b-407c-a /2014 [facility] 371-33c61e [facility] e77ce1 [facility] re-evaluate [id number]-6 10/19 10/19 [facility] dff-4eec-9 /2014 [facility] 101-bcaa14 [facility] e62b88 [facility] re-evaluate uvat27ni-w 10/19 10/19 [facility] e5c-7164-h /2014 [facility] alf-c72d76 [facility] f32b71 [facility] re-evaluate bsfykh4u-l 10/19 10/19 [facility] Primary 9fb-4648-b /2014 [facility] ed1-4eb9a8 [facility] 8ba94b [facility] re-evaluate [id number]-q 10/19 10/19 [facility] x6m-1k07-7 /2014 [facility] 8h3-vcrsa2 [facility] b9a5da [facility] re-evaluate 2iwvc7m9-9 10/19 10/19 [facility] 162-4f90-a /2014 [facility] 8w6-6855x9 [facility] 98b7ae [facility] re-evaluate [id number] 10/19 10/19 [facility] t94-1xj1-1 /2014 [facility] l5h-7540lf [facility] 7g4758 [facility] re-evaluate [id number]-q 10/19 10/19 [facility] Primary 51c-4c6c-b /2014 [facility] ae0-4e4e5a [facility] 1bafb6 [facility] re-evaluate [id number] 10/19 10/19 [facility] x6c-493b-8 /2014 [facility] 3fb-12e63a [facility] 8dbab5 [facility] [place] re-evaluate [id number]-b 10/19 10/19 [facility] 991-4607-a /2014 [facility] i3s-8h134y [facility] 01470s [facility] re-evaluate [id number] 10/19 10/19 [facility] 366-46e8-8 /2014 [facility] 454-88dbaf [facility] 2aade5 [facility] re-evaluate [id number]-n 10/19 10/19 [facility] v43-77j4-6 /2014 [facility] d98-1pnl39 [facility] [id number] [facility] [place] [facility] [id number] 11/02 11/02 [facility] i37-0684-6 /2014 [facility] 9h7-014607 [facility] [id number] [facility] [place] [facility] [id number]-4 11/02 11/02 [facility] 94f-4077-b /2014 [facility] 659-3t737s [facility] e53a07 [facility] [place] [facility] 260rl8wq-u 11/02 11/02 [facility] i21-5521-8 /2014 [facility] 9b1-svm43q [facility] e873bd [facility] [place] [facility] [id number]-n 11/02 11/02 [facility] 4fc-4700-a /2014 [facility] q8l-664j6p [facility] ytj740 [facility] [place] [facility] a343io2b-t 11/02 11/02 [facility] 97f-449b-a /2014 [facility] 481-1k0230 [facility] 55460g [facility] [place] [facility] h7si99r8-n 11/02 11/02 [facility] 3dc-4bfc-b /2014 [facility] 578-1faaf7 [facility] 9f8d04 [facility] [place] [facility] 57zhqx04-j 11/02 11/02 [facility] 37a-46c1-9 /2014 [facility] 8db-6847cb [facility] 8v0654 [facility] [place] [facility] 691ue9t2-4 11/02 11/02 [facility] 141-437a-b /2014 [facility] 2o6-de549f [facility] 870818 [facility] [place] [facility] 5se22qj1-b 11/02 11/02 [facility] 070-462b-9 /2014 [facility] 705-c3bdf1 [facility] f3ed1b [facility] [place] [facility] 670kuq56-2 11/02 11/02 [facility] z55-786v-0 /2014 [facility] 4n9-2q9x22 [facility] [id number] [facility] [place] [facility] 5ebkk152-b 11/02 11/02 [facility] 71a-478c-9 /2014 [facility] 765-r4d529 [facility] g5g529 [place] [facility] [place] [facility] [id number]-x 11/02 11/02 [facility] 58f-4489-b /2014 [facility] 1ee-27c91a [facility] e82ddc [facility] [place] [facility] [id number]-i 11/02 11/02 [facility] 446-48cc-9 /2014 [facility] dc5-e1e82a [facility] 0505ac [facility] [place] [facility] 7s4e9flt-9 11/02 11/02 [facility] 768-42df-a /2014 [facility] 63c-e3ff2f [facility] 3t948t [facility] [place] [facility] 5783d53z-1 11/02 11/02 [facility] 724-442a-9 [facility] cf4-90c4b5 [facility] [id number] [facility] [place] [facility] [id number] 11/02 11/02 [facility] e83-3d9h-5 /2014 [facility] 3s1-9z0679 [facility] c83bd2 [facility] [place] [facility] [id number] 11/02 11/02 [facility] ac3-4790-9 /2014 [facility] 5k3-5fbj66 [facility] 91732f [facility] [place] [facility] [id number] 11/02 11/02 [facility] 7j0-367c-o /2014 [facility] 241-438454 [facility] f8f7dd [place] 0m1v9zr2-l 11/02 11/02 [facility] c20-5335-d /2014 [facility] o68-890k02 [facility] 0a5fc3 [place] [facility] [place] [facility] izr5k265-7 11/02 11/02 [facility] 952-44dc-a /2014 [facility] 5q8-07686k [facility] bd28be [place] [facility] [place] [facility] for642s3-u 11/02 11/02 [facility] 674-4e07-8 /2014 [facility] 6v1-9e47sd [facility] 5753c1 [facility] [place] 3l2d76tn-1 11/02 11/02 [facility] 5c2-9j01-h /2014 [facility] 21d-0z9476 [facility] f193ea [place] [facility] [id number] 11/03 11/03 [facility] 185-4d75-b /2014 [facility] d58-40c667 [facility] 9b93b4 [facility] [place] [facility] [id number] 11/03 11/03 [facility] 6x1-46v3-o /2014 [facility] h38-04r52j [facility] 839155 [facility] [place] [facility] [id number] 11/03 11/03 [facility] 6cb-4b72-a /2014 [facility] x27-9170yx [facility] 196a3b [place] [facility] [place] 9uq8nu9n-4 11/03 11/03 [facility] 4b2-2634-n /2014 [facility] u36-ogr97z [facility] [id number] [place] [facility] 7688c06v-4 11/03 11/03 [facility] 3i8-03mc-5 /2014 [facility] ecc-146457 [facility] 145bd1 [facility] [place] [facility] [id number]-c 11/03 11/03 [facility] 6df-4cf1-9 /2014 [facility] 8a7-3303n8 [facility] 761fa1 [facility] [id number] 11/03 11/03 [facility] fd1-4c99-9 /2014 [facility] f66-ym904h [facility] fie492 [place] [facility] [place] [facility] [id number] 11/03 11/03 [facility] 3i6-9392-5 /2014 [facility] c79-2s57i5 [facility] b2f44e [facility] [place] [facility] [id number]-f 11/03 11/03 [facility] aed-4f1c-a /2014 [facility] 3t1-2iu451 [facility] [id number] [facility] [place] [facility] [id number] 11/03 11/03 [facility] Primary be2-44ed-b /2014 [facility] 64c-c9d5be [facility] a141aa [facility] [place] [facility] [id number]-k 11/03 11/03 [facility] 71e-4c19-b /2014 [facility] a73-z1k0vv [facility] beba57 [place] [facility] [place] [facility] [id number]-n 11/03 11/03 [facility] u65-0o13-v /2014 [facility] 3c4-33jy3q [facility] fba58a [place] [facility] [place] [facility] [id number]-5 11/03 11/03 [facility] aa3-46dc-b /2014 [facility] z34-q88394 [facility] j6940z [facility] [id number] 11/03 11/03 [facility] 0bf-440c-8 /2014 [facility] 640-94bc2d [facility] 5q106k [facility] [place] [facility] [id number]-7 11/03 11/03 [facility] w13-2q7b-8 [facility] 224-2a9f82 [facility] 785bd7 [place] [facility] [place] [facility] [id number]-a 11/03 11/03 [facility] 132-4a2d-8 /2014 [facility] g13-qr01g8 [facility] ps2712 [facility] [place] [facility] [id number] 11/03 11/03 [facility] 835-4dec-8 /2014 [facility] 962-b8ad6d [facility] 69o931 [facility] [place] [facility] [id number] 11/03 11/03 [facility] l00-2y13-k /2014 [facility] 734-c4fd5e [facility] 94b1bc [facility] [place] [facility] ei04zx2c-2 11/03 11/03 [facility] 40b-400b-b /2014 [facility] r32-7i3w44 [facility] 9a2db6 [facility] 4139jny7-8 11/03 11/03 [facility] dd6-47a6-b /2014 [facility] cfe-5af22f [facility] 1136f6 [place] [facility] [place] [facility] [id number]-[id number] 11/03 11/03 [facility] 26f-46e2-8 /2014 [facility] u27-1n6q5e [facility] 241de8 [place] [facility] [place] [facility] [id number]-x 11/03 11/03 NE Primary r3g-484j-6 /2014 [facility] 076-f563d2 [facility] 7d6e1e [place] [facility] [place] [facility] on [id number]-l 12/23 12/23 NE [facility] Omeprazole f27-7m25-j /2014 [facility] 3fa-c3e69b [facility] fe08a2 [facility] [place] [facility] 98q57spp-e 12/23 12/23 [facility] Omeprazole 829-4286-9 /2014 [facility] 82a-2ds860 [facility] 185a9f [facility] [place] [facility] on [id number] 12/23 12/23 [facility] Omeprazole 197-4128-8 [facility] j8d-389288 [facility] o7l528 [place] [facility] [place] [facility] [place] 395g7mad-6 12/23 12/23 [facility] Omeprazole 119-49f0-a /2014 [facility] 084-d6b46c [facility] b64076 [facility] [place] [facility] sw7024bp-v 12/23 12/23 [facility] Omeprazole fbf-4319-9 /2014 [facility] 8cb-7q762j [facility] f1bb40 [facility] [place] [facility] hh0475j2-8 12/23 12/23 [facility] Omeprazole j6p-372v-2 [facility] ed0-4491ee [facility] 96e0a8 [facility] [place] [facility] 4hb2s156-1 12/23 12/23 [facility] Omeprazole 496-4bd7- [facility] 1db-bba6cf [facility] ee42c9 [facility] [place] [facility] [place] [id number] 12/23 12/23 [facility] Omeprazole cdd-4c97-9 [facility] ec4-566e0b [facility] 6l7809 [facility] [place] [facility] 38zy8v5v-8 12/23 12/23 [facility] Omeprazole ddb-47dd- [facility] 549-546ceb [facility] aa15f0 [facility] [place] [facility] 8bbj9k3c-5 12/23 12/23 [facility] Omeprazole 95f-43c4- [facility] brodie-0b4fbd [facility] 0839e9 [facility] [place] [facility] ym453at1-p 12/23 12/23 [facility] Omeprazole 017-44d7-8 [facility] 4x8-u26722 [facility] 068d8f [facility] [place] [facility] 8qt285cq-9 12/23 12/23 [facility] Omeprazole a78-55z1-7 [facility] 6bb-8z1225 [facility] 32c7b8 [facility] [place] [facility] q98rg523-6 12/23 12/23 [facility] Omeprazole 869-4797-b /2014 [facility] 37b-2f66cb [facility] 673be3 [facility] [place] [facility] 3lx9i5e4-j 12/23 12/23 [facility] Primary Omeprazole 3s9-4t40-u [facility] 7u4-10108g [facility] 42d03d [facility] [place] [facility] [place] [id number] 12/23 12/23 [facility]ole 59f-4970- [facility]-e89144 [facility] 9c91e5 [facility] [place] [facility] 3s0y67ve-1 12/23 12/23 [facility]razole 602-4ca2- [facility] ec9-68d9c4 [facility] 4f4714 [facility] [place] [facility] 3e96fj20-u 12/23 12/23 NE Primary Omeprazole cca-4c2a-a /2014 [facility] v34-28q392 [facility] c5c78b [facility] [place] [facility] 8g29rm0o-9 12/23 12/23 [facility] Primary Omeprazole h44-00ud-b /2014 [facility] 45f-3f105j [facility] 5f7c21 [facility] [place] [facility] 8rvuttp8-6 12/23 12/23 [facility]ole cb9-465f-9 [facility] de4-073cbd [facility] 364ebb [facility] [place] [facility] [id number]-a 12/23 12/23 [facility] Primary Omeprazole dfe-4703-a /2014 [facility] 15e-539906 [facility] 574eb4 [facility] [place] [id number]-i 12/23 12/23 NE Primary Omeprazole 848-4102-b /2014 [facility] a18-we9n77 [facility] 1158be [facility] [place] [facility] 14ro7a57-2 12/23 12/23 NE Primary Omeprazole 311-4c06-a /2014 [facility] 993-4fc7ac [facility] 9469e5 [facility] [place] [facility] poss 0yn7exa6-5 01/15 01/15 NE Primary shingles x3b-9hiv-o /2014 [place] [facility] u24-zi0220 [facility] 1c1afb [facility] [place] [facility] poss 9i4ila19-6 01/15 01/15 NE Primary shingles 82d-4866-9 /2014 [facility] 212-f81e62 [facility] c411a7 [facility] [place] poss 7xap6zx3-p 01/15 01/15 NE Primary shingles cf5-4908-9 /2014 [facility] n5t-6s68f0 [facility] s02697 [facility] [place] [facility] poss 6ca84l29-4 01/15 01/15 NE Primary shingles 1f4-3244-8 /2014 [facility] cad-803a76 [facility] e87c96 [facility] [place] [facility] poss mo167aq5-u 01/15 01/15 NE Primary shingles 428-4617-a /2014 [facility] 8l2-7c5417 [facility] 95f1bf [facility] [place] poss 06p0iw97-9 01/15 01/15 [facility] Primary shingles 9af-4022-8 /2014 [facility] j57-82v5z9 [facility] 3v876v [facility] [place] [facility] poss 0pfu5386-6 01/15 01/15 NE Primary shingles 9t1-7i5n-9 /2014 [facility] 118-31160y [facility] 290fbe [facility] [place] poss 85us9018-l 01/15 01/15 NE Primary shingles 35d-4f6b-b /2014 [facility] q2c-17s26x [facility] 7z0874 [facility] [place] poss 4c59ax69-3 01/15 01/15 NE Primary shingles ebd-477c-b /2014 [facility] 076-ce8d5f [facility] 05q997 [facility] [place] poss 864ffbcb-7 01/15 01/15 NE Primary shingles e84-222u-5 /2014 [facility] ef3-7364b7 [facility] 7a93a2 [facility] [place] [facility] poss zo3sh76w-4 01/15 01/15 NE Primary shingles 429-42e2- /2014 [facility] 4a2-ujp941 [facility] 34165j [facility] [place] poss 0j76372n-9 01/15 01/15 NE Primary shingles r5w-48ke-6 /2014 [facility] 21a-8c0c22 [facility] 86y978 [facility] [place] poss o896c7o9-4 01/15 01/15 NE Primary shingles 758-46be-b /2014 [facility] 486-832a7f [facility] s74755 [facility] [place] [facility] poss sv5865m8-2 01/15 01/15 NE Primary shingles eea-4beb-a /2014 [facility] 1df-92aec1 [facility] 76167z [facility] [place] [facility] poss u207ut10-1 01/15 01/15 NE Primary shingles 4bd-4e41-b /2014 [facility] x45-11sf4l [facility] 866d4f [facility] [place] [facility] poss x6j5p96j-1 01/15 01/15 NE Primary shingles [id number] /2014 [facility] [id number] [facility] [id number] [facility] [place] [facility] [id number] 01/15 01/15 [facility] Primary shingles [id number] /2014 [facility] [id number] [facility] [id number] [facility] [place] [facility] [id number] 01/15 01/15 [facility] Primary shingles [id number] /2014 [facility] [id number] [facility] [id number] [place] [facility] [id number] 01/15 01/15 [facility] Primary shingles [id number] /2014 [facility] [id number] [facility] [id number] [facility] [place] [facility] [id number] 01/15 01/15 [facility] Primary shingles [id number] /2014 [facility] [id number] [facility] [id number] [facility] [place] [facility] [id number] 01/15 01/15 [facility] Primary shingles [id number] /2014 [facility] [id number] [facility] [id number] [facility] [place] [facility] [id number] 01/15 01/15 [facility] Primary shingles [id number] /2014 [facility] [id number] [id number] [place] [facility] [id number] 01/19 01/19 [facility] Primary meds [id number] /2014 [facility] [id number] [facility] [id number] [facility] [place] [facility] [id number] 01/19 01/19 [facility] [id number]-4788-[id number] /2014 [facility] [id number] [facility] [id number] [facility] [place] [facility] [id number] 01/19 01/19 [facility] Primary [facility] [id number] /2014 [facility] [id number] [facility] [id number] [facility] [place] [facility] [id number] 01/19 01/19 [facility] [id number] /2014 [facility] [id number] [facility] [id number] [facility] [place] [facility] [id number] 01/19 01/19 [facility] [id number] /2014 [facility] [id number] [facility] [id number] [facility] [place] [facility] [id number] 01/19 01/19 [facility] [id number]-[id number] /2014 [facility] [id number] [facility] [id number] [facility] [place] [facility] on [id number] 01/19 01/19 [facility] [id number] /2014 [facility] [id number] [facility] [id number] [facility] [place] [facility] [id number] 01/19 01/19 [facility] [id number] /2014 [facility] [id number] [facility] [id number] [place] [facility] [id number] 01/19 01/19 [facility] [id number] /2014 [facility] [id number] [facility] [id number] [facility] [place] [facility] [id number] 01/19 01/19 [facility] [id number] /[facility] f[facility]-41n597 [id number] [place] [facility] [place] 042wil56-5 01/19 01/19 [facility] y10-7dzn-d /2014 [facility] v41-dc0hcw [facility] e09f47 [facility] 3m67h852-z 01/19 01/19 [facility] 4f2-8cj6-6 /2014 [facility] 518-q4u384 [facility] [id number] [facility] 7f2k0970-1 01/19 01/19 [facility] 0q1-8488-3 /2014 [facility] 17b-g62138 [facility] [id number] [facility] Ref[facility] on 55916912-[id number] 01/19 01/19 [facility] ea7-4153-9 /2014 [facility] 497-0a7679 [facility] [id number] [facility] 03gko0b8-6 01/19 01/19 [facility] 109-4c35-9 /2014 [facility] 04c-5jn339 [facility] 1b07dc [facility] 9l15u3sj-0 01/19 01/19 [facility] aec-4d0c-a /2014 [facility] 49b-bw0780 [facility] df58f2 [facility] Ref[facility] tbg903aq-b 01/19 01/19 [facility] j08-0em1-m /2014 [facility] 504-0n6160 [facility] [id number] [facility] [place] 0pmb7i92-t 01/19 01/19 [facility] 413-4fde-9 /2014 [facility] b67-3yz6um [facility] 51p450 [facility] p8b75jy0-5 01/19 01/19 [facility] 4d0-4534-z /2014 [facility] 96f-56acbc [facility] 00cb2d [facility] [place] 263tx0jg-8 01/19 01/19 [facility] s86-0wf7-8 /2014 [facility] 871-8ab5c3 [facility] [id number] [facility] Ref[facility] [place] 2486b0h6-t 01/19 01/19 [facility] 36d-4244-8 /2014 [facility] e10-5pa614 [facility] yu921p [facility] [place] [facility] Ref[facility] [place] 5f014f5x-5 01/19 01/19 [facility] 595-4fa4-a /2014 [facility] af5-cbef03 [facility] [id number] [facility]-Up 151bs059-0 02/15 02/15 [facility] shingles 9a9-3j9w-c [facility] 359-df87f0 [facility] [id number] [facility] [place] [facility] 13f9p1fd-z 02/15 02/15 [facility] Primary shingles 7c2-4845-i /2014 [facility] 5n3-f563b1 [facility] [id number] [facility] [place] [facility] Follow-Up [id number] 02/15 02/15 [facility] shingles 362-4222-b /2014 [facility] 286-5e39b8 [facility] 8a56c8 [facility] [place] [facility]-Up 85gu5yb5-l 02/15 02/15 [facility] Primary shingles 116-4afd- /2014 [facility] bed-8v844f [facility] [id number] [facility] [place] [facility] xovy00le-d 02/15 02/15 [facility] shingles 575-4eb1-8 /2014 [facility] 759-1vf268 [facility] [id number] [facility] [place] [facility]Up [id number] 02/15 02/15 [facility] sh[facility] r31-0c08-2 /2014 [facility] lia-563f39 [facility] [id number] [facility] [place] [facility] [id number]-v 02/15 02/15 [facility] Primary shingles 385-4505-a /2014 [facility] 7q7-7yt2t0 [facility] se0351 [facility] [place] [facility] 725hq6p2-n 02/15 02/15 [facility] Primary shingles 191-4fbf-b /2014 [facility] 442-34102e [facility] 190c14 [facility] [place] [facility]-Up [id number]-z 02/15 02/15 [facility] Primary shingles 9w8-56q0-2 /2014 [facility] 521-64h760 [facility] [id number] [facility] [place] [facility]-Up s3gw920e-7 02/15 02/15 [facility] shingles 94f-43a2-b /2014 [facility] 5ee-b871be [facility] [id number] [facility] [place] [facility]-Up 6709gj2k-g 02/15 02/15 [facility] Primary shingles 59e-4ca9-a /2014 [facility] g46-5h4753 [facility] [id number] [facility] [place] [facility]-Up p87y8382-1 02/15 02/15 [facility] Primary shingles -4d75-a /2014 [facility] 209-af5c58 [facility] 1fe7ec [facility] [place] [facility]-Up 6u8015sg-r 02/15 02/15 [facility] Primary shingles 922-488e-9 /2014 [facility] 9x8-84637z [facility] 05c9aa [facility] [place] [facility]-Up [id number] 02/15 02/15 [facility] Primary shingles w96-8i0u-1 /2014 [facility] 7eb-b05e1d [facility] 0a37ad [facility] [place] [facility] Follow-Up [id number] 02/15 02/15 [facility] Primary shingles 9ce-429e-9 /2014 [facility] db0-d0ca6e [facility] ce70dc [facility] [place] [facility]-Up -x 02/15 02/15 NE Primary shingles 672-4000-9 [facility] 6y3-62a987 [facility] [id number] [facility] [place] [facility]-Up [id number] 02/15 02/15 [facility] Primary shingles g13-5917-3 /2014 [facility] ff0-7m2457 [facility] [id number] [facility] [place] [facility] 1418o5i5-h 02/15 02/15 [facility] Primary shingles fd9-41f9- /2014 [facility] d13-x1962j [facility] cc4fe5 [facility] [place] [facility] xn5aht49-7 02/15 02/15 [facility] shingles 6aa-4ce4- [facility] fd2-a58231 [facility] 5a357s [facility] [place] [facility] [id number]-o 02/15 02/15 [facility] shingles 380-4ada- [facility] 30c-273d80 [facility] af3e38 [facility] [place] [facility] Ref[facility] 1m03p632-4 03/03 03/03 [facility] Fosamax 24e-400b-8 [facility] fba-6d5b57 [facility] [id number] [facility] [place] Refill [place] 227857p9-p 03/03 03/03 [facility] Fosamax 0q2-54l3-6 [facility] 221-a0e4af [facility] 1bcad8 [facility] [place] Refill [place] 805926n9-9 03/03 03/03 [facility] Fosamax 918-43b7-a /2014 [facility] cde-9c44df [facility] [id number] [facility] [place] [facility] Ref[facility] 75x7o25y-v 03/03 03/03 [facility] Fosamax 7i8-72at-n /2014 [facility] df9-3151a1 [facility] d875cd [facility] [place] [facility] Ref[facility] [place] p8b70f17-4 03/03 03/03 [facility] Fosamax 36b-4d5a-b /2014 [facility] 7cf-89q640 [facility] [id number] [facility] [place] [facility] Ref[facility] [place] 8rg1o295-4 03/03 03/03 [facility] Fosamax 9i0-2661-7 /2014 [facility] 47e-586883 [facility] 284ca7 [facility] [place] [facility] Ref[facility] [place] [id number]-q 03/03 03/03 [facility] Fosamax 170-4264-a /2014 [facility] 4ea-ab3f73 [facility] eaa5c0 [facility] [place] [facility] Ref[facility] [place] 5h82re4p-6 03/03 03/03 [facility] Fosamax j8n-56rp-5 /2014 [facility] ef0-u7e058 [facility] 6d06d1 [facility] [place] [facility] Ref[facility] x33y91f4-0 03/03 03/03 [facility] Fosamax 35f-49d4-9 /2014 [facility] ef6-450889 [facility] [id number] [facility] [place] [facility] Ref[facility] [place] 4qv58912-3 03/03 03/03 [facility] Fosamax f73-4744-a /2014 [facility] 9w3-w2613l [facility] 7b3878 [facility] [place] [facility] Refill [place] [id number]-2 03/03 03/03 [facility] Fosamax ada-4142-a /2014 [facility] 07c-9c8211 [facility] egm122 [facility] [place] [facility] Ref[facility] [place] 063s10d9-p 03/03 03/03 [facility] Fosamax c48-46m8-i /2014 [facility] 685-0d5d12 [facility] [id number] [facility] [place] [facility] Refill [place] 54261l94-5 03/03 03/03 [facility] Fosamax 9r2-93q6-1 /2014 [facility] d56-548l70 [facility] bc7db8 [facility] [place] [facility] Ref[facility] [place] z0808svd-1 03/03 03/03 [facility] Fosamax 688-411f-8 /2014 [facility] aae-a41b88 [facility] [id number] [facility] [place] [facility] Ref[facility] i16h11v5-1 03/03 03/03 [facility] Fosamax 789-4b4d-8 /2014 [facility] 422-13c4f2 [facility] 9637bf [facility] [place] [facility] Ref[facility] 13t1j468-z 03/03 03/03 [facility] Fosamax a7k-7010-b /2014 [facility] 5u6-124937 [facility] e4c5bd [facility] [place] [facility] Ref[facility] [place] 426f91n7-0 03/03 03/03 [facility] Fosamax k2z-057p-8 /2014 [facility] 9dc-u2894t [facility] [id number] [facility] [place] [facility] Ref[facility] l40ou29m-5 03/03 03/03 [facility] Fosamax 4s4-7347-1 /2014 [facility] 554-b90060 [facility] [id number] [facility] [place] [facility] Ref[facility] [place] 9j004rt7-e 03/03 03/03 [facility] Fosamax 00b-49f5-b /2014 [facility] ad4-5ec88b [facility] 1e8f0d [facility] [place] [facility]-Up [id number] 06/04 06/04 [facility] 52f-43fc- [facility] abd-257e8e [facility] [id number] [facility] [place] [facility]-Up cul9w297-2 06/04 06/04 [facility] 2ae-4e15-9 /2014 [facility] 9de-1t228m [facility] 89640s [facility] [place] [facility]-Up [id number]-1 06/04 06/04 [facility] 44f-41ca-a /2014 [facility] 5dc-c79f00 [facility] 3fa40a [facility] [place] [facility]-Up lx1a3m93-1 06/04 06/04 [facility] ab0-4ce2-b /2014 [facility] 16c-4951c0 [facility] [id number] [facility] [place] [facility] Follow-Up [id number] 06/04 06/04 [facility] fc4-4257-b /2014 [facility] 1c4-46j401 [facility] [id number] [facility] [place] [facility]-Up k6gm18d8-t 06/04 06/04 [facility] u93-65j5-5 /2014 [facility] 6r7-k79346 [facility] [id number] [facility] [place] [facility]-Up 6or83mhs-j 06/04 06/04 [facility] fe5-49f4-b /2014 [facility] 0b7-516232 [facility] 6af2bf [facility] [place] [facility] 052506kf-y 06/04 06/04 [facility] j7m-5924-5 /2014 [facility] ec5-6b06a7 [facility] 57dada [facility] [place] [facility] [id number] 06/04 06/04 [facility] 76b-4582-8 /2014 [facility] 37d-05c6fb [facility] yx064j [facility] [place] [facility] 3k134y24-8 06/04 06/04 [facility] 25e-403d-8 /2014 [facility] eae-b990b6 [facility] a37d9b [facility] [place] [facility] [id number] 06/04 06/04 [facility] db1-4ce0-9 /2014 [facility] p34-1571sy [facility] 18ebd7 [facility] [place] [facility] Follow-Up 882qom74-1 06/04 06/04 [facility] 3w0-470e-v /2014 [facility] 609-86w416 [facility] [id number] [facility] [place] [facility] 7p89ol8v-6 06/04 06/04 [facility] af1-44b9-8 /2014 [facility] 0cb-4a36b7 [facility] [id number] [facility] [place] [facility] Follow-Up uf1l092p-6 06/04 06/04 [facility] cf8-4213-8 /2014 [facility] 8ac-81b8ea [facility] e3c4ca [facility] [place] [facility] 5rz3b5ky-1 06/04 06/04 [facility] 7da-4be9-b /2014 [facility] 868-a997e7 [facility] [id number] [facility] [place] [facility] 0943w839-0 06/04 06/04 [facility] n25-36ao-7 /2014 [facility] y51-orj383 [facility] r8200u [facility] [place] [facility] b556za49-z 06/04 06/04 [facility] d10-05gq-c /2014 [facility] 5o0-71403d [facility] [id number] [facility] [place] [facility] 408h8527-3 06/04 06/04 [facility] 8fd-4ed4-b /2014 [facility] 08d-7x8386 [facility] 81f8fd [facility] [place] [facility] Unknown [id number]-l 06/21 06/21 NE Primary 988-4d5f-a /2014 [facility] 7g5-931434 [facility] [id number] [facility] [place] [facility] [id number]-9 06/21 06/21 NE [facility] 2g0-34z8-a /2014 [facility] bd0-56681k [facility] [id number] [facility] [place] [facility] Unknown 6676838z-p 06/21 06/21 NE Primary 709-4701-a /2014 [facility] ee4-0zl178 [facility] 2bff36 [facility] [place] [facility] Unknown [id number] 06/21 06/21 NE Primary 82b-40a4-b /2014 [facility] ad2-38fc24 [facility] [id number] [facility] [place] [facility] Unknown 828a2jl9-2 06/21 06/21 NE Primary 5ec-4182-b /2014 [facility] 271-ad9bc8 [facility] 3beb90 [facility] [place] [facility] Unknown 59682zz9-7 06/21 06/21 [facility] 28f-4391-8 /2014 [facility] e48-33w751 [facility] 3cm665 [facility] [place] [facility] Unknown 5r585p4h-3 06/21 06/21 NE Primary 956-44e7-b /2014 [facility] 513-x60115 [facility] ab02cd [facility] [place] [facility] 708o821t-3 06/21 06/21 NE [facility] 1s8-7823-r /2014 [facility] 136-6a8e88 [facility] 7eaf6c [facility] [place] [facility] [id number]-f 06/21 06/21 NE Primary 507-4960-8 /2014 [facility] fef-2bb7b7 [facility] [id number] [facility] [place] [facility] Unknown 847p2a48-e 06/21 06/21 NE Primary g41-059d-9 /2014 [facility] 8bf-1bec78 [facility] 2bb8ac [facility] [place] [facility] o699v09b-1 06/21 06/21 NE Primary i87-51cz-i /2014 [facility] 81a-c51edb [facility] [id number] [facility] [place] [facility] Unknown usc5g2v4-0 06/21 06/21 NE Primary 44e-4ec2-8 /2014 [facility] 6z6-4jz887 [facility] 6bccdf [facility] [place] [facility] Unknown 8893ql02-1 06/21 06/21 NE Primary 921-4f0a-9 /2014 [facility] 72b-337cb0 [facility] zl1784 [facility] [place] [facility] si4r686k-5 06/21 06/21 NE Primary 5cc-4085-9 /2014 [facility] s12-n6k9j1 [facility] [id number] [facility] [place] [facility] Unknown [id number] 06/21 06/21 NE Primary k70-2gj2-b /2014 [facility] 901-3fab23 [facility] 5c0b8d [facility] [place] [facility] 65lj0o22-e 06/21 06/21 NE Primary t3h-221k-4 /2014 [facility] 80d-o3j777 [facility] 0fff8c [facility] [place] [facility] Unknown [id number]-z 06/21 06/21 NE Primary 947-4216-8 /2014 [facility] 21f-832499 [facility] [id number] [facility] [place] [facility] Unknown m8268zah-8 06/21 06/21 NE Primary d76-3676-m /2014 [facility] 944-q29691 [facility] [id number] [facility] [place] [facility] 1 month 7bgih24k-9 07/05 07/05 NE Primary 7m3-0416-1 /2015 [facility] l9u-y65439 [facility] 61556s [facility] [place] [facility] 1 month 645t17v1-c 07/05 07/05 NE Primary fd4-46fa-b /2015 [facility] 834-429a73 [facility] f279d8 [facility] [place] [facility] 1 month 36l920th-8 07/05 07/05 [facility] Primary 9ec-426d-8 /2015 [facility] 2u7-010x4p [facility] f23d53 [facility] [place] [facility] 1 month [id number] 07/05 07/05 NE Primary ca8-4eb7-b /2015 [facility] aae-38877r [facility] yt4424 [facility] [place] [facility] 1 month 4i5992i3-c 07/05 07/05 NE Primary 740-4f46-8 [facility] i1j-847425 [facility] 0f201e [facility] [place] [facility] 1 month 3327tw90-b 07/05 07/05 [facility] Primary 45b-48c1-9 [facility] 828-25637j [facility] e469da [facility] [place] [facility] 1 month 74383962-[id number] 07/05 07/05 NE Primary u90-2685-8 /2015 [facility] 828-172752 [facility] dc4a44 [facility] [place] [facility] 1 month k5cye163-k 07/05 07/05 NE Primary 044-453f-8 /2015 [facility] 0u9-575c48 [facility] 27d93b [facility] [place] [facility] 1 month k70srxpu-f 07/05 07/05 NE Primary 0be-4312-8 /2015 [facility] 739-hw9140 [facility] 53210h [facility] [place] 1 month yg4k9uh5-4 07/05 07/05 NE Primary 2m2-8yxk-j /2015 [facility] 33b-fb2fe7 [facility] cw8328 [facility] [place] [facility] 1 month 61510u81-j 07/05 07/05 NE Primary 1de-4aef-a /2015 [facility] i03-5ujsx2 [facility] 1d8dc8 [facility] [place] [facility] 1 month 3g32z740-5 07/05 07/05 NE Primary 32b-424a-b /2015 [facility] 0cd-d63ab4 [facility] 6b1e10 [facility] [place] [facility] 1 month 2l137x62-3 07/05 07/05 NE Primary 298-4b46-8 /2015 [facility] n62-2vbpyr [facility] [id number] [facility] [place] [facility] 1 month 9tpu1rw5-3 07/05 07/05 NE Primary n2p-0401-r /2015 [facility] 715-r26743 [facility] 13a3ef [facility] [place] [facility] 1 month r85014i9-4 07/05 07/05 NE Primary 343-4baf-8 /2015 [facility] 891-2717ba [facility] [id number] [facility] [place] [facility] 1 month 06316as5-7 07/05 07/05 NE Primary 9db-4ea9-9 /2015 [facility] 8u6-c5122x [facility] [id number] [facility] [place] [facility] hl92t7m1-1 08/27 08/27 NE Primary Levothyroxin n6x-139u-p /2015 [facility] e 11f-062883 [facility] f32c12 [facility] [place] [facility] ref[facility] 0v49dug5-l 08/27 08/27 NE [facility] Levothyroxin 429-4c44-8 /2015 [facility] e 32c-q59374 [facility] 5d7d75 [place] [place] [facility] ref[facility] [place] k04703e0-3 08/27 08/27 NE Primary Levothyroxin d32-3i49-v /2015 [facility] 9j1-7337v6 [facility] db20b6 [facility] [place] [facility] [place] 1i6276u6-r 08/27 08/27 NE Primary Levothyroxin s88-6018-1 /2015 [facility] e 2o9-o33h06 [facility] 5d2e37 [facility] [place] [facility] ref[facility] [place] j8j20i5a-o 08/27 08/27 NE Primary Levothyroxin 6bf-407a-a /2015 [facility] cbd-57fd30 [facility] [id number] [facility] [place] [facility] [place] a6x7q340-4 08/27 08/27 NE Primary Levothyroxin t27-71n2-j /2015 [facility] u58-606u5v [facility] bfa02e [facility] [place] [facility] ref[facility] [place] nhlt8137-l 08/27 08/27 [facility] Primary Levothyroxin af2-49d5-b /2015 [facility] 0t0-938975 [facility] 09848g [facility] [place] [facility] ref[facility] [place] 0qdl89n6-5 08/27 08/27 [facility] Primary Levothyroxin 0p9-306w-4 /2015 [facility] 20f-bfcb16 [facility] ks150p [facility] [place] ref[facility] [place] 56247r4f-g 08/27 08/27 NE [facility] Levothyroxin s46-71yb-4 /2015 [facility] e 59b-804372 [facility] f3b7d6 [facility] [place] [facility] ref[facility] [place] 67rq426s-4 08/27 08/27 NE Primary Levothyroxin 410-4e27-9 [facility] 76c-fe0e9f [facility] df88fe [facility] [place] ref[facility] [place] vk1g0686-9 08/27 08/27 [facility] Levothyroxin 087-49f7-b /2015 [facility] 987-77031i [facility] 6e3ab3 [facility] [place] [facility] ref[facility] [place] m94sbfh0-n 08/27 08/27 NE Primary Levothyroxin c1e-1238-4 /2015 [facility] u69-226be3 [facility] c175a7 [facility] [place] [facility] ref[facility] [place] c963f7z4-g 08/27 08/27 NE [facility] Levothyroxin o33-2130-b /2015 [facility] 9ce-1be2e6 [facility] 72p615 [facility] [place] [facility] ref[facility] 4s5v2319-u 08/27 08/27 NE Primary Levothyroxin 97c-4304-9 [facility] 0o7-007469 [facility] [id number] [facility] [place] ref[facility] [place] p85mn7i8-1 08/27 08/27 NE [facility] Levothyroxin 90b-4b5d-9 [facility] 944-883752 [facility] [id number] [facility] [place] [facility] Ref[facility] h116s2w5-2 10/26 10/26 NE Primary Viibryd q49-1p8u-v /2015 [facility] k6l-h9d7no [facility] 8d1c5e [facility] [place] [facility] Ref[facility] b8g30267-9 10/26 10/26 NE Primary Viibryd w0m-5kef-d /2015 [facility] 399-bd0fc6 [facility] [id number] [facility] [place] [facility] Ref[facility] u21c2652-n 10/26 10/26 [facility] Primary Viibryd 093-44c1-8 /2015 [facility] t5q-633e2a [facility] 85268o [facility] [place] [facility] Ref[facility] [place] h20097fl-i 10/26 10/26 NE Primary Viibryd 756-4851-a /2015 [facility] p4l-66m71c [facility] d71f91 [facility] [place] [facility] Ref[facility] m9544ix6-9 10/26 10/26 NE Primary Viibryd fce-40be-8 /2015 [facility] 6ee-0bf7b1 [facility] 798c36 [facility] [place] [facility] Ref[facility] f9u6v770-7 10/26 10/26 NE Primary Viibryd 9b9-12f6-0 /2015 [facility] 68a-736f0d [facility] [id number] [facility] [place] [facility] Ref[facility] s480h30h-o 10/26 10/26 NE Primary Viibryd 479-4b5d-b /2015 [facility] 6ff-f499ca [facility] 03ce24 [facility] [place] [facility] Ref[facility] l0b2f6o4-4 10/26 10/26 NE Primary Viibryd r87-9147-9 /2015 [facility] 38d-g95996 [facility] 72e0fb [facility] [place] [facility] Ref[facility] [id number] 10/26 10/26 NE Primary Viibryd 8d3-80h1-s /2015 [facility] x73-ed1k43 [facility] e48cd9 [facility] [place] [facility] Ref[facility] [place] 70480314-r 10/26 10/26 NE Primary Viibryd 134-4a28-8 /2015 [facility] 661-2c01ca [facility] 1ce20a [facility] [place] [facility] Refill [facility] 149sf120-4 10/26 10/26 NE Primary Viibryd l46-504a-b /2015 [facility] 88e-2247da [facility] 6078eb [facility] [place] [facility] Refill [place] nd314645-6 10/26 10/26 NE Primary Viibryd 7e7-2tl0-5 /2015 [facility] 685-12aa48 [facility] [id number] [facility] [place] [facility] Refill [facility] [id number] 10/26 10/26 NE Primary Viibryd 5e5-35h8-2 /2015 [facility] ab7-84fbb8 [facility] d25a84 [facility] [place] [facility] Ref[facility] moe816j2-x 10/26 10/26 NE Primary Viibryd r57-3u5w-2 [facility] g9d-2xy338 [facility] 0fafd4 [facility] [place] [facility] ref[facility] 6go5400g-6 01/06 01/06 NE Primary Xanax p05-0949-8 /2015 [facility] ddc-a36feb [facility] cjg066 [facility] [place] [facility] [place] 9vq3c7lj-t 01/06 01/06 NE Primary Xanax 166-47dd-b /2015 [facility] 8s6-i7x3a8 [facility] 856e64 [facility] [place] ref[facility] [place] f8p9m7p2-o 01/06 01/06 NE Primary Xanax z39-9re3-6 /2015 [facility] 8de-aee1be [facility] 780de5 [facility] [place] [facility] ref[facility] [place] 40a19819-2 01/06 01/06 NE Primary Xanax eaa-4b43-b /2015 [facility] 610-085074 [facility] [id number] [facility] [place] [facility] s9b66h86-9 01/06 01/06 NE Primary Xanax 3f5-845u-y /2015 [facility] 0d7-79t660 [facility] 82e48c [facility] [place] ref[facility] [place] 7k2q13f5-p 01/06 01/06 NE Primary Xanax s12-73z6-9 /2015 [facility] 4ba-be12ab [facility] [id number] [facility] [place] [facility] [place] my01e1fd-5 01/06 01/06 NE Primary Xanax 919-4895-9 /2015 [facility] i2c-5j86cc [facility] 0vg000 [facility] [place] [facility] [place] uu2o984o-7 01/06 01/06 NE Primary Xanax 4r5-40z4-0 /2015 [facility] 005-1aa2d6 [facility] [id number] [facility] [place] [facility] ref[facility] 4e4m07d0-1 01/06 01/06 NE Primary Xanax 6y6-2773-k /2015 [facility] 4h1-uo0761 [facility] 752aa0 [facility] [place] ref[place] 063i16k3-2 01/06 01/06 NE Primary Xanax w42-9179-u /2015 [facility] 2s1-6b77c6 [facility] [id number] [facility] [place] [facility] 4ypup2a9-2 01/06 01/06 NE Primary Xanax 528-46e9-b /2015 [facility] da1-a0af0e [facility] 50c99a [facility] [place] ref[place] on 999214qa-8 01/06 01/06 NE Primary Xanax fde-4395-8 /2015 [facility] aaf-5fd83d [facility] a2fabe [facility] [place] [facility] [place] 49w04eu1-w 01/06 01/06 NE [facility] Xanax e45-648z-1 /2015 [facility] dfe-bc86d4 [facility] 9a21ee [facility] [place] [facility] Ref[facility] 75if09fq-4 01/09 01/09 NE [facility] Omeprazole 1b5-0ttl-d /2015 [facility] 103-eeeace [facility] [id number] [facility] [place] [facility] Ref[facility] mlm25514-r 01/09 01/09 NE Primary Omeprazole p27-67ul-s /2015 [facility] 3i8-78hs7c [facility] [id number] [facility] [place] [facility] Refill [facility] 8217l282-2 01/09 01/09 NE Primary Omeprazole 8f1-194t-p /2015 [facility] 6x4-9eb59v [facility] lor263 [facility] [place] [facility] Ref[facility] 9r489f2c-3 01/09 01/09 NE [facility] Omeprazole 1k2-0282-1 /2015 [facility] 64f-8dabcd [facility] e714a6 [facility] Ref[facility] 5xe21ko2-8 01/09 01/09 NE Primary Omeprazole 900-4518-8 /2015 [facility] v77-jwe95i [facility] 7adc97 [facility] [place] [facility] Refill [facility] 889e4j19-t 01/09 01/09 NE Primary Omeprazole ee4-4553-8 [facility] 481-bd5a4f [facility] e12b96 [facility] [place] [facility] Refill [facility] v9u61448-4 01/09 01/09 NE [facility] Omeprazole 3ed-44e4-b /2015 [facility] 596-232405 [facility] yw1789 [facility] [place] [facility] Ref[facility] 05dnw544-i 01/09 01/09 NE [facility] Omeprazole 96d-4cd4-a /2015 [facility] y5d-934813 [facility] bdbd54 [facility] Ref[facility] 26nov557-8 01/09 01/09 NE Primary Omeprazole 8fc-4844-b /2015 [facility] dd5-a9ac2a [facility] 4sz969 [facility] [place] [facility] Ref[facility] 4hp20tsr-p 01/09 01/09 NE [facility] Omeprazole 18e-[id number] /2015 [facility] [id number] [facility] [id number] [facility] [place] Ref[place] [id number] 01/09 01/09 [facility] Omeprazole [id number]-[id number] /2015 [facility] [id number] [facility] [id number] [facility] [place] Ref[facility] [place] [id number] 01/09 01/09 [facility] Omeprazole [id number] /2015 [facility] [id number] [facility] [id number] [facility] [place] Ref[place]/Denie [id number] 02/01 02/01 [facility] d - Fosamax [id number] /2015 [facility] [id number] [facility] [id number] [facility] [place] [facility]/Denie [id number] 02/01 02/01 [facility] d - Fosamax [id number]-b /2015 [facility] [id number] [facility] [id number] [facility] [place] Ref[facility]/Denie [id number] 02/01 02/01 [facility] d - Fosamax [id number] /2015 [facility] [id number] [facility] [id number] [facility] [place] [facility]/Denie [id number] 02/01 02/01 [facility] d - Fosamax [id number]-a /2015 [facility] [id number] [facility] [id number] [facility] [place] [facility]/Denie [id number] 02/01 02/01 [facility] d - Fosamax [id number] /2015 [facility] [id number] [facility] [id number] [facility] [place] Ref[facility]/Denie [id number] 02/01 02/01 [facility] d - Fosamax [id number]-[id number] /2015 [facility] [id number] [facility] [id number] [facility] [place] [facility]/Denie [id number] 02/01 02/01 [facility] d - Fosamax 761-4845-9 /2015 [facility] [id number] [facility] [id number] [facility] [place] [facility]/Denie [id number] 02/01 02/01 [facility] d - Fosamax 349-4613-9 /2015 [facility] [id number] [facility] [id number] [facility] [place] [facility]/Denie [id number] 02/01 02/01 [facility] d - Fosamax [id number] /2015 [facility] [id number] [facility] [id number] [facility] [place] [facility]/Denie [id number] 02/01 02/01 [facility] d - Fosamax [id number] /2015 [facility] [id number] [facility] [id number] [facility] [place] Ref[place]/Denie [id number] 02/01 02/01 [facility] d - Fosamax [id number]-[id number] /2015 [facility] [id number] [facility] [id number] [facility] [place] [facility] [id number] 02/08 02/08 [facility] [id number] /2015 [facility] [id number] [facility] [id number] [facility] [place] [facility] [id number] 02/08 02/08 [facility] [id number] /2015 [facility] [id number] [facility] [id number] [facility] [place] [facility] [id number] 02/08 02/08 [facility] 86c-46bb- /2015 [facility] [id number] [facility] [id number] [facility] [place] [facility] [id number] 02/08 02/08 [facility] [id number] /2015 [facility] [id number] [id number] [place] [facility] [id number] 02/08 02/08 [facility] 546-4efe-8 /2015 [facility] [id number] [facility] [id number] [facility] [place] [facility] [id number] 02/08 02/08 [facility] u7t-4t40-y /2015 [facility] [phone] [facility] [id number] [facility] [place] [facility] [id number]-p 02/08 02/08 [facility] c3b-2q80-y /2015 [facility] 8y5-9l2r11 [facility] [id number] [facility] [place] [facility] [id number]-c 02/08 02/08 [facility] j89-73gu-4 /2015 [facility] r84-fgu007 [facility] [id number] [facility] [place] [facility] [id number] 02/08 02/08 [facility] 036-42f8-a /2015 [facility] i50-44705s [facility] [id number] [facility] [place] [facility] [id number] 02/08 02/08 [facility] e36-764u-e /2015 [facility] q59-r6p96e [facility] [id number] [facility] [place] [facility] blood [id number] 03/21 03/21 [facility] pressure d49-4viq-0 /2015 [facility] g6r-1ddn52 [facility] [id number] [facility] [place] [facility] [id number]-v 03/21 03/21 [facility] pressure ddc-4565-b /2015 [facility] 982-l1n760 [facility] [id number] [facility] [place] [facility] [id number]-4 03/21 03/21 [facility] pressure k70-2673-4 /2015 [facility] cea-6036d0 [facility] [id number] [facility] [place] [facility] blood 350av93k-7 03/21 03/21 [facility] pressure h54-2959-3 /2015 [facility] 0b6-21m1ed [facility] [id number] [facility] [place] [facility] 75r3if38-l 03/21 03/21 [facility] pressure y26-527i-e /2015 [facility] 7v7-14p7c3 [facility] [id number] [facility] [place] [facility] [id number]-[id number] 03/21 03/21 [facility] pressure ff5-4558-b /2015 [facility] u6e-44hgs9 [facility] [id number] [facility] [place] [facility] blood 88755g04-4 03/21 03/21 [facility] pressure 43c-46f6-9 /2015 [facility] fea-5449da [facility] abd8df [facility] [place] [facility] blood [id number] 03/21 03/21 [facility] pressure x21-6c84-2 /2015 [facility] [id number] [facility] [id number] [facility] [place] [facility] blood [id number]-5 03/21 03/21 [facility] pressure 4ec-4b65-a /2015 [facility] y73-1267sk [facility] [id number] [place] [facility] [place] [facility] 1 [id number] 04/20 04/20 [facility] month 0w2-971x-4 [facility] e3d-x6d138 [facility] [id number] [place] [facility] [place] [facility] 1 [id number]-z 04/20 04/20 [facility] month 928-4338- [facility] 5u3-8h51ao [facility] [id number] [place] [facility] [place] [facility] 1 [id number] 04/20 04/20 [facility] month ceb-4daa- [facility] 27b-59630b [facility] [place] [facility] [place] [facility] Follow-Up 1 [id number] 04/20 04/20 [facility] month 5ab-45c1-9 [facility] ba9-864020 [facility] [id number] [place] [facility] Follow-Up 1 [id number] 04/20 04/20 [facility] month 7ca-42dd-8 [facility] fdb-835163 [facility] f236bf , [place] [facility] Follow-Up 1 [id number] 04/20 04/20 [facility] month o91-35of-n /2015 [facility] 951-20b53c [facility] cb0e34 [place] [facility] Follow-Up 1 7a95fsc5-6 04/20 04/20 [facility] month k16-0064-3 /2015 [facility] 8d3-41001u [facility] [id number] [place] [facility] [place] [facility] 1 [id number] 04/20 04/20 [facility] month j24-342i-w /2015 [facility] 34a-dcd6fc [facility] [id number] [place] [facility] follow up bp 3mw67ocg-r 06/01 06/01 [facility] med[facility] 77e-4909-8 /2015 [facility] y21-750514 [facility] [id number] [facility] [place] [facility] follow [place] bp [id number] 06/01 06/01 [facility] meds 112-4511-b /2015 [facility] g6q-9us486 [facility] [id number] [place] [facility] [place] [facility] follow [place] bp [id number] 06/01 06/01 [facility] med[facility] cca-4704-8 /2015 [facility] 570-175fd3 [facility] [id number] [facility] [place] follow [place] bp [id number] 06/01 06/01 [facility] meds 26c-4123-a /2015 [facility] 2a5-4i00td [facility] 7a2c1e [facility] [place] [facility] [place] bp 1txigb6d-b 06/01 06/01 [facility] med[facility] 4bd-480a-8 /2015 [facility] m95-23j004 [facility] fecd3a [place] [facility] [place] [facility] follow [place] bp [id number]-1 06/01 06/01 [facility] med[facility] 1w7-8382-p /2015 [facility] 474-2337a6 [facility] [id number] [facility] [place] follow [place] bp [id number]-9 06/01 06/01 [facility] med[facility] fb0-4ba1-8 /2015 [facility] 74c-adeffc [facility] [id number] [facility] [place] [facility] - [id number] 06/22 06/22 N E Primary Levothyroxin 7bb-4c51-9 /2015 [facility] e 7s7-p55nnc [facility] [id number] [facility] [place] [facility] - 67u1cmr6-1 06/22 06/22 N [facility] Levothyroxin k01-25sj-i /2015 [facility] g8a-k40801 [facility] [id number] [facility] [place] [facility] - [id number]-5 06/22 06/22 N E Primary Levothyroxin 9g8-289g-w /2015 [facility] 356-8becba [facility] sq703e [facility] [place] [facility] - [id number]-r 06/22 06/22 N [facility] Primary Levothyroxin 6s0-4188-5 /2015 [facility] k20-337240 [facility] ffedea [facility] [place] [facility] - [id number] 06/22 06/22 N E [facility] Levothyroxin z2j-5fxe-5 Primary [facility] e j85-1235qo [facility] [id number] [place] [facility] [place] [facility] Ref[place] - [id number]-o 06/22 06/22 N E [facility] Levothyroxin m7w-7550-6 /2015 [facility] 8ca-n73830 [facility] [id number] [facility] [place] Unknown [id number] 07/19 07/19 [facility] 02b-4206-b /2016 [facility] 5ea-ec45fd [facility] 92cede [place] [facility] [place] [facility] Unknown [id number] 07/19 07/19 [facility] 7ed-4fca-a /2016 [facility] g1n-p65qx0 [facility] [id number] [facility] [place] [facility] Unknown [id number] 07/19 07/19 [facility] 8cd-492b-9 [facility] [phone]-o08310 [facility] [id number] [facility] [place] [facility] Unknown [id number] 07/19 07/19 [facility] o82-5419-9 [facility] h1h-56nee4 [facility] [id number] [facility] [place] [facility] Unknown [id number]-[id number] 07/19 07/19 [facility] 448-4cdb- [facility] 622-mz9978 [facility] [id number] [facility] [place] [facility] - [id number]-f 08/11 08/11 N E Primary Omeprazole 73f-4286-a /2016 [facility] 0cf-4on769 [facility] ae8a6e [place] [facility] [place] [facility] - [id number] 08/11 08/11 N E Primary Omeprazole cf4-4e1a-b /2016 [facility] g92-9vz7kk [facility] [id number] [place] [facility] [place] [facility] Ref[facility] - [id number] 08/11 08/11 N E Primary Omeprazole 165-41c4- P [facility] 58f-2c94bd [facility] 7y722q [facility] [place] [facility] - [id number] 08/11 08/11 N E Primary Omeprazole 6s1-90oz-2 /2016 [facility] 0k6-217n66 [facility] [id number] [facility] [place] [facility] Unknown [id number] 08/16 08/16 [facility] 6u0-11yt-5 /2016 [facility] e66-a346e2 [facility] 68ff8f [facility] [place] [facility] Unknown [id number] 08/16 08/16 [facility] ed3-4e29-a /2016 [facility] h8k-7t7h09 [facility] [id number] [facility] [place] [facility] Unknown [id number]-5 08/16 08/16 [facility] cd3-4f30-b /2016 [facility] 1eb-dbeba2 [facility] 12ef2b [facility] [place] [facility] - [id number]-[id number] 08/18 08/18 N E Primary Edarbi g76-916e-2 /2016 [facility] 21e-8a7b2d [facility] 5da7a2 [facility] [place] [facility] - 27ei8j09-2 08/18 08/18 N E Primary Edarbi y65-16nh-8 /2016 [facility] 0ff-e10fcb [facility] [id number] [facility] [place] [facility] Refill - [id number] 08/29 08/29 N E Primary Edarbi ae2-44d7-a /2016 [facility] [phone] [facility] c5e15c [facility] [place] [facility] Outpatient [id number] Philip 05/17 05/17 Discharge Judson /2016 d Surgical [facility] Outpatient [id number] Philip 05/17 05/17 [facility] Osito Roper /2016 Surgical [facility] Inpatient [id number] Leo 04/07 04/09 Active Ernie /2018 Neto swanson MD [facility] Inpatient [id number] Leo 04/07 04/09 [facility] Osito Klein /[address] [facility] Preadmit [id number] Leo Active Ernie swanson MD [facility] Procedures Procedure Code Date Perfomer Comments Source Excision, 71875 09/25/2013 [facility] neuroma, single, each Joe nagy Fasciotomy 83.14 09/25/2013 [facility] Fasciotomy, foot 30687 09/25/2013 Surgi pooja and/or toe [facility] Other excision or 04.07 09/25/2013 Surg ical 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 Joe nagy Radiologic 60043 09/25/2013 Surgical examination, chest, 2 Hos pital views, frontal and [place] lateral; ACL band replacement S urgical [facility] ankle - right [facility] Appendectomy 47.0 [facility] bunion right foot [facility]urg [facility] [id number] [facility] Hysterectomy [id number] [facility] left total hip [facility] right cataract [facility] Tonsillectomy [id number] [facility] Assessment and Plan No Data Provided for This Section Plan of Care No Data Provided for This Section Social History Social History Date Source Social History ElementQualifiersDate Reported 06/01/2016 [facility] Tobacco Use: . Are you a: former smoker, Age started : 13, Age stopped: 51, Number of packs per day: 3 Jun 01, 2016 Use of recreational / street drugs? . Answer: No Jun 01, 2016 Do you have pets? . Status: No Jun 01, 2016 Marital Status: . Jun 01, 2016 Caffeine intake? . Status: Yes, What type: Coffee, Tea, 1 - 2 cup(s) a day Jun 01, 2016 Do you exercise? . Answer: Yes, Type: walking 15 min 2x day Jun 01, 2016 Do you drink alcohol? . Status: No Jun 01, 2016 Social History TypeResponse 09/19/2013 [facility] Smoking Status Former smoker entered on: 09/19/13 Family History Value Date Source QualifierDescriptionCommentDate Reported 02/18/2015 [facility] Maternal Grandmother Comment not available Feb 15, 2015 Paternal Grandmother Comment not available Feb 15, 2015 Siblings alive stroke, type I diabetes Feb 15, 2015 Maternal Grandfather Comment not available Feb 15, 2015 Children Comment not available Feb 15, 2015 Father heart disease, dementia Feb 15, 2015 Paternal Grandfather Comment not available Feb 15, 2015 Mother alive type II diabetes Feb 15, 2015 Other: Comment not available Feb 15, 2015 QualifierDescriptionCommentDate Reported 08/03/2014 [facility] Father heart disease, dementia Jul 24, 2014 Mother alive type II diabetes Jul 24, 2014 Siblings alive stroke, type I diabetes Jul 24, 2014 Advance Directives No Data Provided for This Section Functional Status No Data Provided for This Section
--- OUTSIDE RECORDS SUMMARY | 2019-11-19 16:10 | XMS REPORT ---
:1955 Author Organization [employer] Care Team Providers Name Role Phone Jesus Lorena Provider Role Unavailable Allergies No Known Allergies Problems Problem Type Condition Code Onset Dates Condition Statu s Problem Benign essential hypertension I10 Active Problem Vitamin D deficiency E55.9 Active Problem Ischemic heart disease I25.9 Activ e Problem Depressive disorder, not elsewhere F32.9 Active classified Problem Type 2 diabetes mellitus without E11.9 Active complications Problem Other specified hypothyroidism E03.8 Active Problem Polyosteoarthritis, 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 Problem Gastro-esophageal reflux disease K21.9 Active without esophagitis Problem Chronic obstructive pulmonary J44.9 Active disease, unspecified Problem Mixed incontinence urge and stress N39.46 Active Problem Anxiety disorder, unspecified F41.9 Active Problem Age-related osteoporosis without M81.0 Active current pathological fracture Problem Major depressive disorder, single F32.9 Active episode, unspecified Problem Anxiety F41.9 Active Problem Chronic obstructive pulmonary J44.9 Active disease, unspecified COPD type Problem Chronic constipation K59.00 Active Problem Other chronic pain G89.29 Active Problem Simple chronic bronchitis J41.0 Ac tive Problem Adjustment disorder with depressed F43.21 Active mood Problem OA (osteoarthritis) M19.90 Active Assessment Other specified diabetes mellitus E13.9 Active without complications Problem Allergic rhinitis due to pollen J30.1 Active Problem Morbid (severe) obesity due to E66.01 Active excess calories Problem Chronic idiopathic constipation K59.04 Active Problem Pure hypercholesterolemia, E78.00 A ctive unspecified Problem Vitamin D deficiency, unspecified E55.9 Active Problem Venous insufficiency I87.2 Active Problem Mixed hyperlipidemia E78.2 Active Problem Obesity, unspecified obesity E66.9 Active severity, unspecified obesity type Problem Hypothyroidism E03.9 Active Problem Neuropathy G62.9 Active Problem Morbid obesity E66.01 Active Problem Stress incontinence in female N39.3 Active Problem Esophageal reflux K21.9 Active Problem Morbid obesity due to excess E66.01 Active calories Problem Female stress incontinence N39.3 A ctive Problem Constipation, unspecified K59.00 Ac tive Problem Type II or unspecified type diabetes E11.9 Active mellitus without mention of complication, not stated as uncontrolled Problem Other specified diabetes mellitus E13.9 Active without complications Problem Essential (primary) hypertension I10 Active Problem Hypothyroidism, unspecified E03.9 Active Medications Medication Code Code Instructions Start End Date Status Dosage System Date [facility] [id number] 100 UNIT/ML Active 35 units Flexpen Subcutaneous twice a day (bid) Results No Known Results Summary Purpose [employer]ClinicalWorks Submission
--- OUTSIDE RECORDS SUMMARY | 2019-11-19 16:10 | XMS REPORT ---
:1955 Author Organization e[employer]Works Care Team Providers Name Role Phone TylermarlenTej cortezah Provider Role Unavailable Allergies, Adverse Reactions, Alerts Substance Reaction Event Type Bactrim Info Not Available Drug Allergy Problems Problem Type Condition Code Onset Dates Condition Statu s Problem Adjustment disorder with depressed F43.21 Active mood Problem OA (osteoarthritis) M19.90 Active Problem Morbid obesity due to excess E66.01 Active calories Problem Stress incontinence in female N39.3 Active Problem Obesity, unspecified obesity E66.9 Active severity, unspecified obesity type Problem Neuropathy G62.9 Active Problem Essential (primary) hypertension I10 Active Problem Hypothyroidism, unspecified E03.9 Active Problem Other specified diabetes mellitus E13.9 Active without complications Problem Constipation, unspecified K59.00 Ac tive Problem Chronic constipation K59.00 Active Assessment Vitamin D deficiency, unspecified E55.9 Active Assessment Urge incontinence N39.41 Active Assessment Familial hypercholesterolemia E78.01 Active Problem Anxiety F41.9 Active Problem Chronic obstructive pulmonary J44.9 Active disease, unspecified COPD type Problem Age-related osteoporosis without M81.0 Active current pathological fracture Problem Venous insufficiency I87.2 Active Problem Simple chronic bronchitis J41.0 Ac tive Problem Mixed incontinence urge and stress N39.46 Active Problem Vitamin D deficiency, unspecified E55.9 Active Problem Familial hypercholesterolemia E78.01 Active Problem Other chronic pain G89.29 Active Problem Pure hypercholesterolemia, E78.00 A ctive unspecified Problem Chronic idiopathic constipation K59.04 Active Assessment Chronic idiopathic constipation K59.04 Active Assessment Osteopenia of lumbar spine M85.88 A ctive Assessment Essential (primary) hypertension I10 Active Assessment Other specified hypothyroidism E03.8 Active Problem Type II or unspecified type diabetes E11.9 Active mellitus without mention of complication, not stated as uncontrolled Problem Female stress incontinence N39.3 A ctive Assessment Morbid (severe) obesity due to E66.01 Active excess calories Assessment Bipolar 1 disorder F31.9 Active Assessment Dysuria R30.0 Active Problem Morbid obesity E66.01 Active Problem Esophageal reflux K21.9 Active Problem Mixed hyperlipidemia E78.2 Active Problem Hypothyroidism E03.9 Active Problem Allergic rhinitis due to pollen J30.1 Active Problem Benign essential hypertension I10 Active Problem Slow transit constipation K59.01 Ac tive Problem Coronary artery disease involving I25.10 Active [place] coronary artery of [place] heart without angina pectoris Problem Acquired hypothyroidism E03.9 Acti ve Problem Urge incontinence N39.41 Active Problem Memory change R41.3 Active Problem NERY (obstructive sleep apnea) G47.33 Active Problem Bipolar 1 disorder F31.9 Active Problem Other specified hypothyroidism E03.8 Active Problem Urge incontinence of urine N39.41 A ctive Problem Type 2 diabetes mellitus without E11.9 Active complications Problem PAD (peripheral artery disease) I73.9 Active Problem Ischemic heart disease I25.9 Activ e Problem Osteoarthritis of both knees, M17.0 Active unspecified osteoarthritis type Problem Depressive disorder, not elsewhere F32.9 Active classified Problem Gastroesophageal reflux disease K21.9 Active without esophagitis Problem Vitamin D deficiency E55.9 Active Problem Gastro-esophageal reflux disease K21.9 Active without esophagitis Problem Chronic obstructive pulmonary J44.9 Active disease, unspecified Problem Morbid (severe) obesity due to E66.01 Active excess calories Problem Polyosteoarthritis, 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 Problem Anxiety disorder, unspecified F41.9 Active Problem Major depressive disorder, single F32.9 Active episode, unspecified Medications Medication Code Code Instructions Start End Status Dosage System Date Date Acidophilus [facility] 59432484989 - Orally Active not defined Levaquin ND 34345200725 500 mg Orally Jul 19, Active 1 tab let Once a day 2018 Flintstones Plus [facility] 36581193167 Multivitamin Active 1 tablet Iron Orally Once a day HydrOXYzine HCl [facility] 17782247536 25 MG Oral Active T MARIAH 1 TABLET BY MOUTH EVERY DAY NEEDED Diabetes Support [facility] 34892776794 THERAPY PACK Active not Orally defined Macrobid [facility] 78948321221 100 mg Orally December Active 1 cap yeimy every 12 hrs , with food 2017 Gabapentin ND 26147592532 400 MG Orally Jul 12, Active 2 c apsule twice a day 2019 (bid) Pentazocine-Nalo [facility] 69173345717 50-0.5 MG Oral Acti ve not xone HCl defined One A Day Multi NDC 0 by mouth once a Active as Vitamin day directed Pen [place] ND 30386517441 31G X 8 MM SQ Aug 16, Active as 11/14" twice a day 2016 directed (bid) Vimovo NDC 13484430524 500-20 MG Orally Sept Active 1 t ablet Twice a day , before 2015 meals Macrobid ND 13783338302 100 MG Orally Jan 31, Active 1 cap yeimy every 12 hrs 2016 with food Bactrim DS ND 68853740331 800-160 MG Jan 31, Active 1 tabl et Orally Twice a 2017 day Tumeric NDC 0 Active not defined Prolia ND 85433833453 60 MG/ML Apr 11, Active as Subcutaneous 2017 directed everry 6 months Viibryd ND 85401334791 20 mg Orally May 03, Active 1 table t Once a day 2016 with food Fosamax ND 65062737744 70 MG Orally Active 1 table t weekly Cephalexin ND 02922253088 500 mg Orally May 20, Active 1 t ablet every 12 hrs 2017 BusPIRone HCl ND 25293833471 30 MG Orally bid Activ e TAKE 1 TABLET BY MOUTH TWICE A DAY Omeprazole ND 46724220387 20 mg Orally Jul 19, Active 1 ca psule Once a day 2019 Niacin ND 71106125265 250 MG Orally Active 1 tabl et Once a day Viibryd ND 37972355074 10 mg Orally Active 1 table t Once a day with food Levaquin ND 90942576263 500 mg Orally Feb 06, Active 1 tab let Once a day 2018 disabled placard NDC 0 n/a n/a daily December Active a s 12, directed 2018 Trulicity ND 28473863066 0.75mg/0.5ml sq Jan 31, Active on ce a every 2 wks 2017 week as directed Cinnamon ND 44699548820 500 MG Or[place] [address]-35 - Orally once Active 2 ta blet every night Potassimin ND 37319959811 75 MG Orally Active 1 ta blet Once a day Sleep Aid ND 10857075910 25 MG Orally Active 1 tab let Once a day at bedtime as needed Clopidogrel ND 21049074014 75 mg Orally Active 1 t ablet Bisulfate Once a day Victoza ND 38144705409 6MG/ML SQ daily Active 1.8 mg VESIcare ND 61747626488 10 MG Orally Jun 01, Active 1 tabl et Once a day 2015 Lisinopril ND 81242324237 20 mg Orally Active 1 ta blet twice a day (bid) One Touch NDC 0 as directed bid Active use Glucometer with test strips and lancets BuPROPion HCl ND 89239063837 75 MG Orally August Active 1 tablet daily 2016 Marycarmen BD ultra NDC 0 4mm x 32g Active as fine pen needles intradermally d irected three times a day (tid) Omeprazole ND 46146363446 20MG by mouth November Active 1 t ablet once a day 2015 Duloxetine HCl ND 18673605435 30 MG Orally Active 1 capsule Once a day Benadryl Allergy ND 85790163365 25 MG Orally Active 1 tablet once every night as need ed Naproxen ND 58674074977 375 MG Orally Active 1 tab let every 12 hrs with food or milk as needed CoQ-10 ND 23926409327 30 MG Orally Active 1 capsu le Once a day with a meal [place] ND 84568837107 15 MG Orally November 21, Active 1 caps ule Once a day 2017 at bedtime as needed [place] ND 05693342050 450 MG Orally Active not defined Acyclovir ND 52368910784 400 MG Orally November 03, Active 1 ta blet Three times a 2014 day Cymbalta ND 61689410730 60 MG Orally Active 1 caps ule Once a day Aripiprazole ND 46372628532 10 MG Oral Active TAKE 1 TABLET BY MOUTH EVERY DAY Naproxen ND 41272045857 500MG Orally Active 1 tabl et twice a day (bid) Sanctura NDC 0 20 mg by mouth Jul 16, Active 1 tablet Once a day 2013 Vitamin B-12 ND 37323277821 1000 MCG by Active 1 t ablet mouth Once a day Fish Oil ND 31228118735 1000 MG Orally Active 1 ca psule Once a day [place] ND 43447441957 5-325 MG Orally September Active 1 ta blet three times a , as needed day (tid) 2014 Myrbetriq ND 70499905703 50 mg Orally Feb 16, Active 1 tab let Once a day 2017 AZO Bladder [facility] 73749552173 - Orally Active not Control/Go-Less defined Uribel [facility] 53157640795 118 MG Orally December Active 1 caps ule three times a , day (tid) 2017 Pravastatin ND 43394970768 20 mg Orally Active 1 t ablet Sodium once every night Ultram ND 29480050619 50 mg Orally November 03, Active 1 table t twice a day 2014 as needed (bid) Allergy Relief ND 55317622153 25 MG Orally Active 1 tablet every 8 hrs as needed Prolia [facility] 18051781606 60 MG/ML Jul 19, Active 60mg/ml Subcutaneous 2018 every 6 months Multi-betic [facility] 21125335077 - Orally Active not Diabetes defined Levothyroxine [facility] 55273694379 125MCG orally Active 1 tablet Sodium daily Neurontin ND 69091404540 600 MG Orally November 03, Active 1 ta blet Three times a 2014 Zostavax [facility] 99721092926 46373 UNT/0.65ML May 11, Active as Subcutaneous one 2016 directe d time Viibryd [facility] 16923333081 40MG Orally Active 1 tablet daily Osteo Bi-Flex [facility] 80052288189 - Orally Active not Triple Strength defined Aspir-81 [facility] 53863776528 81 MG Orally Active 1 tabl et Once a day Symbicort [facility] 38575108053 80-4.5 MCG/ACT Jul 24, Active 2 p uffs Inhalation Twice 2014 day Vitamin D [facility] 52443454960 2000 UNIT Orally Active 5 tablets Once a day Cephalexin [facility] [address]-65 500 mg Orally Active 1 tablet four times a day (qid) NovoFine [facility] 97935066290 32G X 6 MM SQ November Active as daily 28, directed 2017 [place] 3 [facility] 44485107728 1000 MG Orally Active 1 cap yeimy Once a day [employer] Thyroid [facility] 38954915990 90 MG Orally August Active 1 ta blet Once a day 12, on an 2017 empty stomach Saxenda [facility] 13675159802 18 MG/3ML November Active 3.0mg Subcutaneous 28, daily 2017 Lomaira [facility] 76127069120 8 MG Orally Feb 20, Active 1 tablet Three times a 2018 before day meals Linzess [facility] 20656550719 72 mcg orally Active 1 caps ule Daily Calcium + D [facility] 62026803570 600-200 MG-UNIT Active 2 tablet Orally twice a with food day (bid) Vital Signs Date/Time: September 24, 2018 BMI 44.66 Index Weight 260.2 lbs Height 64 in Temperature 98.6 F Cardiac Monitoring Heart Rate 82 /min Blood Pressure Diastolic 70 mm Hg Blood Pressure Systolic 124 mm Hg Results Name Result Date Reference Range Unit Abnormali ty Flag Urinalysis (Urine Dipstick) ----Spec [place] 1.010 20180924 ----Turbidity clear 20180924 ----Glucose neg 20180924 ----Ketones neg 20180924 ----Blood 5-10 20180924 ----Bili neg 20180924 ----Color yellow 20180924 ----pH 5 20180924 ----Leuk Est 15 20180924 ----Nitrite neg 20180924 ----Urobilinogen 0.2 20180924 ----Protein neg [id number] Summary Purpose eClinicalWorks Submission
--- OUTSIDE RECORDS SUMMARY | 2019-11-19 16:10 | XMS REPORT ---
:1955 Author Organization [employer]Works Care Team Providers Name Role Phone TylerceferinoTej dupreeah Provider Role Unavailable Allergies, Adverse Reactions, Alerts Substance Reaction Event Type sulfa Info Not Available Drug Allergy Bactrim Info Not Available Drug Allergy Problems Problem Type Condition Code Onset Dates Condition Statu s Problem Esophageal reflux K21.9 Active Problem Morbid obesity E66.01 Active Problem Hypothyroidism E03.9 Active Problem Mixed hyperlipidemia E78.2 Active Assessment Chronic idiopathic constipation K59.04 Active Problem Vitamin D deficiency E55.9 Active Assessment Simple chronic bronchitis J41.0 Ac tive Problem Ischemic heart disease I25.9 Activ e Assessment Osteopenia of spine M85.88 Active Problem Type 2 diabetes mellitus without E11.9 Active complications Problem Other specified hypothyroidism E03.8 Active Problem Polyosteoarthritis, 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 Problem Other specified diabetes mellitus E13.9 Active without complications Problem Gastro-esophageal reflux disease K21.9 Active without esophagitis Problem Constipation, unspecified K59.00 Ac tive Problem Chronic obstructive pulmonary J44.9 Active disease, unspecified Problem Mixed incontinence urge and stress N39.46 Active Problem Chronic obstructive pulmonary J44.9 Active disease, unspecified COPD type Problem Anxiety F41.9 Active Problem Venous insufficiency I87.2 Active Problem Simple chronic bronchitis J41.0 Ac tive Problem Morbid (severe) obesity due to E66.01 Active excess calories Problem Major depressive disorder, single F32.9 Active episode, unspecified Assessment Morbid (severe) obesity due to E66.01 Active excess calories Problem Vitamin D deficiency, unspecified E55.9 Active Problem Anxiety disorder, unspecified F41.9 Active Assessment Venous insufficiency I87.2 Active Problem Chronic constipation K59.00 Active Assessment Essential (primary) hypertension I10 Active Problem Age-related osteoporosis without M81.0 Active current pathological fracture Assessment Vitamin D deficiency, unspecified E55.9 Active Problem Chronic idiopathic constipation K59.04 Active Assessment Anxiety F41.9 Active Problem Pure hypercholesterolemia, E78.00 A ctive unspecified Problem Depressive disorder, not elsewhere F32.9 Active classified Problem Stress incontinence in female N39.3 Active Problem Benign essential hypertension I10 Active Problem Morbid obesity due to excess E66.01 Active calories Problem Type II or unspecified type diabetes E11.9 Active mellitus without mention of complication, not stated as uncontrolled Problem OA (osteoarthritis) M19.90 Active Problem Female stress incontinence N39.3 A ctive Problem Adjustment disorder with depressed F43.21 Active mood Assessment Other specified diabetes mellitus E13.9 Active without complications Problem Essential (primary) hypertension I10 Active Assessment Dysuria R30.0 Active Problem Hypothyroidism, unspecified E03.9 Active Problem Obesity, unspecified obesity E66.9 Active severity, unspecified obesity type Problem Neuropathy G62.9 Active Medications Medication Code Code Instructions Start End Status Dosage System Date Date Diabetes Support [facility] [id number] THERAPY PACK Active not Orally defined Ultram ND 48568075419 50 mg Orally November 03, Active 1 table t twice a day 2014 as needed (bid) Victoza ND 59089012864 6MG/ML SQ daily Active 1.8 mg Acidophilus ND 99185342438 - Orally Active not defined Symbicort [facility] 69651141345 80-4.5 MCG/ACT Jul 24, Active 2 p uffs Inhalation Twice 2014 Folic Acid ND 36641187530 800 MCG Orally Active 1 tablet Once a day Osteo Bi-Flex [facility] 99834772849 - Orally Active not Triple Strength defined Tumeric ND 0 Active not defined BuPROPion HCl ND 30421185118 75 MG Orally August Active 1 tablet daily 2016 Neurontin ND 52693494081 600 MG Orally November 03, Active 1 ta blet Three times a 2014 day [place] 3 ND 88690093333 1000 MG Orally Active 1 cap yeimy Once a day Trulicity ND 73574118886 0.75mg/0.5ml sq Jan 31, Active on ce a every 2 wks 2016 week as directed Levothyroxine ND 33143454267 125MCG orally Active 1 tablet Sodium daily Levemir Flexpen ND 00940627293 100 UNIT/ML Active 35 units Subcutaneous twice a day (bid) Omeprazole ND 48841021932 20MG by mouth November Active 1 t ablet once a day 2015 Xanax ND 53290567449 0.5 MG PO four Active 1 tab let times a day (qid) Multi-betic ND 18926713215 - Orally Active not [place] [address]-25 25 MG Orally Acti ve 1 tablet once every night as need ed Cayenne [facility] 76302250243 450 MG Orally Active not defined Fish Oil ND 30875793341 1000 MG Orally Active 1 ca psule Once a day Calcium + D ND 78468935405 600-200 MG-UNIT Active 2 tablet Orally twice a with food day (bid) Viibryd [facility] 07293705842 40MG Orally Active 1 tablet daily Bactrim DS ND 01753524686 800-160 MG Jan 31, Active 1 tabl et Orally Twice a 2016 day Macrobid [facility] 59165040977 100 MG Orally Jun 01, Active 1 cap yeimy twice a day 2015 with food (bid) Naproxen ND 36990575793 500MG Orally Active 1 tabl et twice a day (bid) Fosamax ND 75666881968 70 MG Orally Active 1 table t weekly [place] ND 29744746802 5-325 MG Orally September Active 1 ta blet three times a , as needed day (tid) 2014 Edarbi ND 57139971854 40 mg Orally Sept Active 1 table t once a day 2015 Macrobid [facility] 12223817501 100 MG Orally Jan 31, Active 1 cap yeimy every 12 hrs 2016 with food Macrobid [facility] 47426677713 100 mg Orally Apr 26, Active 1 cap yeimy twice a day 2016 with food (bid) Pen [place] ND 44084101705 31G X 8 MM SQ Aug 16, Active as 11/14" twice a day 2016 directed (bid) Potassimin ND 79637088904 75 MG Orally Active 1 ta blet Once a day [place] ND 0 20 mg by mouth Jul 16, Active 1 tablet Once a day 2013 Vitamin B-12 ND 64376538224 1000 MCG by Active 1 t ablet mouth Once a day Flintstones Plus ND 36123831545 Multivitamin Active 1 tablet Iron Orally Once a day Acyclovir ND 54893742730 400 MG Orally November 03, Active 1 ta blet Three times a 2014 day Vimovo ND 00096554305 500-20 MG Orally Sept Active 1 t ablet Twice a day 20, before 2015 meals Allergy Relief ND 28197411707 25 MG Orally Active 1 tablet every 8 hrs as needed Cinnamon ND 33736699735 500 MG Orally Active not defined BD Pen NDC 0 31.156 SQ three December Active as times a day 10, directed (tid) 2013 Clopidogrel ND 71217461336 75 MG Orally Active 1 t ablet Bisulfate Once a day Marycarmen BD ultra NDC 0 4mm x 32g Active as fine pen needles intradermally d irected three times a day (tid) Linzess ND 14671541648 145 MCG Orally Active 1 cap yeimy Once a day Adipex-P ND 65458573967 37.5 MG Orally Jun 04, Active 1 ta blet Once a day 2014 Prolia ND 65031322369 60 MG/ML Feb 14, Active as Subcutaneous 2017 directed every 6 months VESIcare ND 02359998822 10 MG Orally Jun 01, Active 1 tabl et Once a day 2015 Darifenacin ND 36211530687 15 MG Orally Active 2 t ablet Hydrobromide ER Once a day with liquid One Touch NDC 0 as directed bid Active use Glucometer with test strips and lancets Niacin [facility] 29473048883 250 MG Orally Active 1 tabl et Once a day Vitamin D ND 57620721523 2000 UNIT Orally Active 5 tablets Once a day CoQ-10 ND 33705238937 30 MG Orally Active 1 capsu le Once a day with a meal Vital Signs Date/Time: Apr 26, 2017 BMI 47.92 Index Weight 279.2 lbs Height 64 in Temperature 98.5 F Cardiac Monitoring Heart Rate 74 /min Blood Pressure Diastolic 68 mm Hg Blood Pressure Systolic 122 mm Hg Results Name Result Date Reference Range Unit Abnormali ty Flag Urinalysis (Urine Dipstick) ----Spec [place] 1.025 20170426 ----Turbidity clear 20170426 ----Glucose neg 20170426 ----Ketones neg 20170426 ----Blood neg 20170426 ----Bili neg 20170426 ----Color yellow 20170426 ----pH 5 78841400 ----Leuk Est 70 20170426 ----Nitrite ++ 20170426 ----Urobilinogen 0.2 20170426 ----Protein 30 20170426 Hemoglobin A1c ----Hemoglobin A1c 5.5 20170426 Summary Purpose eClinicalWorks Submission
--- OUTSIDE RECORDS SUMMARY | 2019-11-19 16:10 | XMS REPORT ---
:1955 Author Organization e[employer]Works Care Team Providers Name Role Phone Lorena Lee Provider Role Unavailable Allergies No Known Allergies Problems Problem Type Condition Code Onset Dates Condition Statu s Assessment Type 2 diabetes mellitus without E11.9 Active complications Problem Depressive disorder, not elsewhere F32.9 Active classified Problem Chronic obstructive pulmonary J44.9 Active disease, unspecified Problem Female stress incontinence N39.3 A ctive Problem Anxiety disorder, unspecified F41.9 Active Problem Vitamin D deficiency E55.9 Active Problem Major depressive disorder, single F32.9 Active episode, unspecified Problem Adjustment disorder with depressed F43.21 Active mood Problem Morbid (severe) obesity due to E66.01 Active excess calories Problem Essential (primary) hypertension I10 Active Problem Neuropathy G62.9 Active Problem Esophageal reflux K21.9 Active Problem Mixed hyperlipidemia E78.2 Active Problem Hypothyroidism, unspecified E03.9 Active Problem Hypothyroidism E03.9 Active Problem Stress incontinence in female N39.3 Active Problem OA (osteoarthritis) M19.90 Active Problem Obesity, unspecified obesity E66.9 Active severity, unspecified obesity type Problem Morbid obesity due to excess E66.01 Active calories Problem Morbid obesity E66.01 Active Problem Ischemic heart disease I25.9 Activ e Problem Type II or unspecified type diabetes E11.9 Active mellitus without mention of complication, not stated as uncontrolled Problem Benign essential hypertension I10 Active Problem Polyosteoarthritis, 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
--- OUTSIDE RECORDS SUMMARY | 2019-11-19 16:10 | XMS REPORT ---
:1955 Author Organization [employer] Care Team Providers Name Role Phone JesusTejah Provider Role Unavailable Allergies, Adverse Reactions, Alerts Substance Reaction Event Type sulfa Info Not Available Drug Allergy Bactrim Info Not Available Drug Allergy Problems Problem Type Condition Code Onset Dates Condition Statu s Assessment Other specified hypothyroidism E03.8 Active Assessment Other specified diabetes mellitus E13.9 Active without complications Assessment Screening for osteoporosis Z13.820 A ctive Assessment Essential (primary) hypertension I10 Active Assessment Breast cancer screening Z12.31 Acti ve Assessment Dysuria R30.0 Active Problem Depressive disorder, not elsewhere F32.9 Active classified Problem Female stress incontinence N39.3 A ctive Problem Vitamin D deficiency E55.9 Active Problem Major depressive disorder, single F32.9 Active episode, unspecified Problem Hypothyroidism E03.9 Active Problem Morbid (severe) obesity due to E66.01 Active excess calories Problem Mixed hyperlipidemia E78.2 Active Problem Adjustment disorder with depressed F43.21 Active mood Problem Stress incontinence in female N39.3 Active Problem OA (osteoarthritis) M19.90 Active Problem Constipation, unspecified K59.00 Ac tive Problem Hypothyroidism, unspecified E03.9 Active Problem Benign essential hypertension I10 Active Problem Type II or unspecified type E11.9 Active diabetes mellitus without mention of complication, not stated as uncontrolled Problem Other specified diabetes mellitus E13.9 Active without complications Problem Esophageal reflux K21.9 Active Problem Obesity, unspecified obesity E66.9 Active severity, unspecified obesity type Problem Morbid obesity due to excess E66.01 Active calories Problem Essential (primary) hypertension I10 Active Problem Neuropathy G62.9 Active Assessment Anxiety disorder, unspecified F41.9 Active Problem Type 2 diabetes mellitus without E11.9 Active complications Assessment Morbid (severe) obesity due to E66.01 Active excess calories Problem Other specified hypothyroidism E03.8 Active Problem Morbid obesity E66.01 Active Assessment Constipation, unspecified K59.00 Ac tive Problem Ischemic heart disease I25.9 Activ e Problem Chronic obstructive pulmonary J44.9 Active disease, unspecified Problem Anxiety disorder, unspecified F41.9 Active Problem Polyosteoarthritis, 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 Problem Gastro-esophageal reflux disease K21.9 Active without esophagitis Medications Medication Code Code Instructions Start End Status Dosage System Date Date Cassie [facility] 71236481247 6MG/ML SQ daily Active 1.8 mg [place] [facility] [address]-54 5-325 MG Orally September Active 1 tablet three times a 20, as needed day (tid) 2014 Fish Oil [facility] [address]-90 1000 MG Orally Active 1 capsule Once a day Potassimin [facility] [address]-55 75 MG Orally Active 1 tablet Once a day VESIcare [facility] [address]-11 10 MG Orally Jun 01, Active 1 ta blet Once a day 2015 Vimovo [facility] [address]-30 500-20 MG Orally Sept Active 1 tablet Twice a day , before 2015 meals Linzess [facility] [address]-02 145 MCG Orally Active 1 c apsule Once a day Contour Next NDC 0 n/a as directed Jan 31, Active as Lancets BID 2016 directed Osteo Bi-Flex [facility] [address] - Orally Active not Triple Strength defined Contour Next NDC 0 n/a as directed Jan 31, Active as Test Strips BID 2016 directed Ultram [facility] [address]-42 50 mg Orally November 03, Active 1 tab let twice a day 2014 as needed (bid) Calcium + D [facility] [address]-86 600-200 MG-UNIT Active 2 tablet Orally twice a with food day (bid) Fosamax [facility] [address]-16 70 MG Orally Active 1 tab let weekly Tumeric NDC 0 Active not defined BD Pen NDC 0 31.156 SQ december Active as times a day 10, directed (tid) 2013 Levothyroxine [facility] 81551727318 125MCG orally Active 1 tablet Sodium daily Edarbi [facility] [address]-28 40 MG Orally Sept Active 1 tab let twice a day 20, (bid) 2015 Pen [place] [facility] [address]-86 31G X 8 MM SQ Aug 16, Active as 5/16" twice a day 2017 directed (bid) Darifenacin [facility] [address]-83 15 MG Orally Active 2 tablet Hydrobromide ER Once a day with liquid Allergy Relief [facility] [address]-25 25 MG Orally Active 1 tablet every 8 hrs as needed Flintstones Plus [facility] [address]29 Multivitamin Active 1 tablet Iron Orally Once a day Acyclovir [facility] [address]-83 400 MG Orally November 03, Active 1 tablet Three times a 2014 day [place] [facility] 232[address]-97770 450 MG Orally Active not defined Naproxen [facility] 95202661402 500MG Orally Active 1 tabl et twice a day (bid) Marycarmen BD ultra [facility] 0 4mm x 32g Active as fine pen needles intradermally d irected three times a day (tid) Folic Acid [facility] [address]-96 800 MCG Orally Active 1 tablet Once a day Trulicity [facility] 4423-8298-84 0.75mg/0.5ml sq Jan 31, Active o nce a once a week 2016 week as directed Adipex-P [facility] [address]-66 37.5 MG Orally Jun 04, Active 1 tablet Once a day 2014 Diabetes Support [facility] 64[address]05 THERAPY PACK Active not Orally defined CoQ-10 [facility] [address]-85686 30 MG Orally Active 1 capsu le Once a day with a meal Multi-betic [facility] 57553-09185 - Orally Active not Diabetes defined Macrobid [facility] [address]-17 100 MG Orally Jun 01, Active 1 c apsule twice a day 2015 with food (bid) Macrobid [facility] [address]-32 100 MG Orally Jan 31, Active 1 c apsule every 12 hrs 2016 with food Cinnamon [facility] [address]-64 500 MG Orally Active not defined Neurontin [facility] [address]-10 600 MG Orally November 03, Active 1 tablet Three times a 2014 day Vitamin B-12 [facility] 38470-24634 1000 MCG by Active 1 t ablet mouth Once a day Symbicort [facility] [address]-00 80-4.5 MCG/ACT Jul 24, Active 2 puffs Inhalation Twice 2014 a day Acidophilus [facility] [address]-14 - Orally Active not defined BuPROPion HCl [facility] [address]-88 75 MG Orally August Active 1 tablet daily 2016 Viibryd [facility] 39865093284 40MG Orally Active 1 tablet daily Niacin [facility] 77718-24174 250 MG Orally Active 1 tabl et Once a day Xanax [facility] [address]-70 0.5 MG PO four Active 1 t ablet times a day (qid) Bactrim DS [facility] [address]-05 800-160 MG Jan 31, Active 1 ta blet Orally Twice a 2016 day [place] 0 20 mg by mouth Jul 16, Active 1 tablet Once a day 2013 Omeprazole [facility] [address]-43 20MG by mouth November Active 1 tablet once a day 2015 Levemir Flexpen [facility] [address]-06 100 UNIT/ML Active 35 units Subcutaneous twice a day (bid) Vital Signs Date/Time: Jan 31, 2017 BMI 48.30 Index Weight 281.4 lbs Height 64 in Temperature 98.0 F Cardiac Monitoring Heart Rate 81 /min Blood Pressure Diastolic 80 mm Hg Blood Pressure Systolic 108 mm Hg Results No Known Results Summary Purpose eClinicalWorks Submission
--- OUTSIDE RECORDS SUMMARY | 2019-11-19 16:10 | XMS REPORT ---
:1955 Author Organization [employer] Care Team Providers Name Role Phone Lorena Lee Provider Role Unavailable Allergies No Known Allergies Problems Problem Type Condition Code Onset Dates Condition Statu s Problem Depressive disorder, not elsewhere F32.9 Active [...] I10 Active Problem Neuropathy G62.9 Active Problem Type 2 diabetes mellitus without E11.9 Active complications Problem Other specified hypothyroidism E03.8 Active Problem Morbid obesity E66.01 Active Problem Ischemic heart disease I25.9 Activ e Problem Chronic obstructive pulmonary J44.9 Active disease, unspecified Problem Anxiety disorder, unspecified F41.9 Active Problem Polyosteoarthritis, 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
--- OUTSIDE RECORDS SUMMARY | 2019-11-19 16:10 | XMS REPORT ---
[...] Start End Status Dosage System Date Date Contour Next NDC 0 n/a as directed Jan 31, Active as Test Strips BID 2016 directed Naproxen [facility] 58984186293 500MG Orally Active 1 tabl et twice a day (bid) Macrobid [facility] [address]-03 100 MG Orally Jun 01, Active 1 c apsule twice a day 2015 with food (bid) [place] [facility] 11967-93564 450 MG Orally Active not defined Marycarmen BD ultra NDC 0 4mm x 32g Active as fine pen needles intradermally d irected three times a day (tid) Levemir Flexpen [facility] [address]-82 100 UNIT/ML Active 35 units Subcutaneous twice a day (bid) Fish Oil [facility] [address]-66 1000 MG Orally Active 1 capsule Once a day BD Pen NDC 0 31.156 SQ december Active as times a day 10, directed (tid) 2013 Contour Next NDC 0 n/a as directed Jan 31, Active as Lancets BID 2016 directed Ultram [facility] [address]-09 50 mg Orally November 03, Active 1 tab let twice a day 2014 as needed (bid) BuPROPion HCl [facility] [address]-61 75 MG Orally August Active 1 tablet daily 2016 Diabetes Support [facility] 38[address]57000 THERAPY PACK Active not Orally defined Levothyroxine [facility] 16221749091 125MCG orally Active 1 tablet Sodium daily Trulicity [facility] [address]645[address]-72 0.75mg/0.5ml sq Jan 31, Active o nce a once a week 2016 week as directed Calcium + D [facility] [address]-08 600-200 MG-UNIT Active 2 tablet Orally twice a with food day (bid) Flintstones Plus [facility] 38880-31890 Multivitamin Active 1 tablet Iron Orally Once a day Acyclovir [facility] [address]-55 400 MG Orally November 03, Active 1 tablet Three times a 2014 day [place] 0 20 mg by mouth Jul 16, Active 1 tablet Once a day 2013 Vitamin B-12 [facility] 34502-97854 1000 MCG by Active 1 t ablet mouth Once a day Osteo Bi-Flex [facility] 47531-46540 - Orally Active not Triple Strength defined Neurontin [facility] [address]-30 600 MG Orally November 03, Active 1 tablet Three times a 2014 day Victoza [facility] 37443882543 6MG/ML SQ daily Active 1.8 mg Fosamax [facility] [address]-40 70 MG Orally Active 1 tab let weekly Niacin [facility] 70793-06761 250 MG Orally Active 1 tabl et Once a day Bactrim DS [facility] [address]-57 800-160 MG Jan 31, Active 1 ta blet Orally Twice a 2016 day Linzess [facility] [address]-00 145 MCG Orally Active 1 c apsule Once a day Omeprazole [facility] [address]-17 20MG by mouth November Active 1 tablet once a day 2015 One Touch [facility] 0 as directed bid Active use Glucometer with test strips and lancets Allergy Relief [facility] [address]-19 25 MG Orally Active 1 tablet every 8 hrs as needed Edarbi [facility] [address]-14 40 MG Orally Sept Active 1 tab let twice a day , (bid) 2015 Acidophilus [facility] [address]-36 - Orally Active not defined Vimovo [facility] [address]-31 500-20 MG Orally Sept Active 1 tablet Twice a day , before 2015 meals Multi-betic [facility] 40931-31717 - Orally Active not Diabetes defined VESIcare [facility] [address]-71 10 MG Orally Jun 01, Active 1 ta blet Once a day 2015 Symbicort [facility] [address]-89 80-4.5 MCG/ACT Jul 24, Active 2 puffs Inhalation Twice 2014 a day Folic Acid [facility] [address]-32 800 MCG Orally Active 1 tablet Once a day Potassimin [facility] [address]-66 75 MG Orally Active 1 tablet Once a day Darifenacin [facility] [address]-16 15 MG Orally Active 2 tablet Hydrobromide ER Once a day with liquid Tumeric [facility] 0 Active not defined Xanax [facility] [address]-44 0.5 MG PO four Active 1 t ablet times a day (qid) Cinnamon [facility] [address]-91 500 MG Orally Active not defined Pen [place] [facility] [address]-99 31G X 8 MM SQ Aug 16, Active as 5/16" twice a day 2016 directed (bid) CoQ-10 [facility] 19235-40684 30 MG Orally Active 1 capsu le Once a day with a meal Adipex-P [facility] [address]-35 37.5 MG Orally Jun 04, Active 1 tablet Once a day 2014 Viibryd [facility] 82504225994 40MG Orally Active 1 tablet daily Macrobid [facility] [address]-12 100 MG Orally Jan 31, Active 1 c apsule every 12 hrs 2016 with food [place] [facility] [address]-59 5-325 MG Orally September Active 1 tablet three times a 20, as needed day (tid) 2014 Results No Known Results Summary Purpose eClinicalWorks Submission
--- OUTSIDE RECORDS SUMMARY | 2019-11-19 16:10 | XMS REPORT ---
:1955 Author Organization eClinicalWorks Care Team Providers Name Role Phone JesusTejah Provider Role Unavailable Allergies, Adverse Reactions, Alerts Substance Reaction Event Type sulfa Info Not Available Drug Allergy Bactrim Info Not Available Drug Allergy Problems Problem Type Condition Code Onset Dates Condition Statu s Assessment Neuropathy G62.9 Active Assessment Benign essential hypertension I10 Active Assessment Disorder of bone, unspecified M89.9 Active Assessment Hypothyroidism, unspecified E03.9 Active Assessment Gastro-esophageal reflux disease K21.9 Active without esophagitis Assessment Anxiety disorder, unspecified F41.9 Active Assessment Major depressive disorder, single F32.9 Active episode, unspecified Assessment Type 2 diabetes mellitus without E11.9 [...] obesity due to excess E66.01 Active calories Assessment Chronic obstructive pulmonary J44.9 Active disease, unspecified Problem Morbid obesity E66.01 Active Assessment Morbid (severe) obesity due to E66.01 Active excess calories Problem Ischemic heart disease I25.9 Activ e Problem Type II or unspecified type diabetes E11.9 Active mellitus without mention of complication, not stated as uncontrolled Problem Benign essential hypertension I10 Active Problem Polyosteoarthritis, 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 Problem Gastro-esophageal reflux disease K21.9 Active without esophagitis Problem Type 2 diabetes mellitus without E11.9 Active complications Problem Other specified hypothyroidism E03.8 Active Medications Medication Code Code Instructions Start End Status Dosage System Date Date Missael [facility] [address]-49 500-20 MG Orally Sept Active 1 tablet Twice a day , before 2015 meals Viibryd [facility] 01466663515 40MG Orally Active 1 tablet daily Levothyroxine [facility] 33547073852 125MCG orally Active 1 tablet Sodium daily Victoza [facility] 23546274053 6MG/ML SQ daily Active 1.8 mg [place] 0 20 mg by mouth Jul 16, Active 1 tablet Once a day 2013 Fosamax [facility] [address]-16 70 MG Orally Active 1 tab let weekly Edarbi [facility] [address]-06 40 MG Orally Mar Active 1 tab let twice a day , (bid) 2015 Adipex-P [facility] [address]-67 37.5 MG Orally Jun 04, Active 1 tablet Once a day 2014 Naproxen [facility] 17472990129 500MG Orally Active 1 tabl et twice a day (bid) Calcium + D [facility] [address]-04 600-200 MG-UNIT Active 2 tablet Orally twice a with food day (bid) Flintstones Plus [facility] [address] Multivitamin Active 1 tablet Iron Orally Once a day Acyclovir [facility] [address]-71 400 MG Orally November 03, Active 1 tablet Three times a 2014 day BuPROPion HCl [facility] [address]-88 75 MG Orally August Active 1 tablet daily 2016 Symbicort [facility] [address]-61 80-4.5 MCG/ACT Jul 24, Active 2 puffs Inhalation Twice 2014 a day Marycarmen BD ultra [facility] 0 4mm x 32g Active as fine pen needles intradermally d irected three times a day (tid) Levemir Flexpen [facility] [address]-72 100 UNIT/ML Active 35 units Subcutaneous twice a day (bid) VESIcare [facility] [address]-95 10 MG Orally Jun 01, Active 1 ta blet Once a day 2015 Diabetes Support [facility] [address] THERAPY PACK Active not Orally defined Pen [place] [facility] [address]-70 31G X 8 MM SQ Aug 16, Active as 11/14" twice a day 2016 directed (bid) Vitamin B-12 [facility] [address] 1000 MCG by Active 1 t ablet mouth Once a day Omeprazole [facility] [address]-08 20MG by mouth November Active 1 tablet once a day 2015 Macrobid [facility] [address]-49 100 MG Orally Jun 01, Active 1 c apsule twice a day 2015 with food (bid) Darifenacin [facility] [address]-29 15 MG Orally Active 2 tablet Hydrobromide ER Once a day with liquid Potassimin [facility] [address]-99 75 MG Orally Active 1 tablet Once a day Neurontin [facility] [address]-22 600 MG Orally November 03, Active 1 tablet Three times a 2014 day [place] [facility] [address]-98 5-325 MG Orally September Active 1 tablet three times a 20, as needed day (tid) 2014 Xanax [facility] [address]-15 0.5 MG PO four Active 1 t ablet times a day (qid) [place] 0 31.156 SQ december Active as times a day 10, directed (tid) 2013 CoQ-10 [facility] [address]4979 30 MG Orally Active 1 capsu le Once a day with a meal Fish Oil [facility] [address]-27 1000 MG Orally Active 1 capsule Once a day Ultram [facility] [address]-31 50 mg Orally November 03, Active 1 tab let twice a day 2014 as needed (bid) Vital Signs Date/Time: November 30, 2016 BMI 48.85 Index Weight 284.6 lbs Height 64 in Temperature 98.6 F Cardiac Monitoring Heart Rate 78 /min Blood Pressure Diastolic 71 mm Hg Blood Pressure Systolic 133 mm Hg Results No Known Results Summary Purpose eClinicalWorks Submission
--- OUTSIDE RECORDS SUMMARY | 2019-11-19 16:11 | XMS REPORT ---
:1955 Author Organization [employer] Care Team Providers Name Role Phone JesusTejah Provider Role Unavailable Allergies, Adverse Reactions, Alerts Substance Reaction Event Type sulfa Info Not Available Drug Allergy Bactrim Info Not Available Drug Allergy Problems Problem Type Condition Code Onset Dates Condition Statu s Problem Depressive disorder, not elsewhere F32.9 Active classified Problem Benign essential hypertension I10 Active Problem Type 2 diabetes mellitus without E11.9 Active complications Problem Ischemic heart disease I25.9 Activ e Problem Other specified hypothyroidism E03.8 Active Problem Polyosteoarthritis, 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 Problem Gastro-esophageal reflux disease K21.9 Active without esophagitis Problem Chronic obstructive pulmonary J44.9 Active disease, unspecified Problem Anxiety disorder, unspecified F41.9 Active Problem Major depressive disorder, single F32.9 Active episode, unspecified Problem Morbid (severe) obesity due to E66.01 Active excess calories Problem Stress incontinence in female N39.3 Active Problem Adjustment disorder with depressed F43.21 Active mood Problem OA (osteoarthritis) M19.90 Active Problem Neuropathy G62.9 Active Problem Essential (primary) hypertension I10 Active Problem Morbid obesity due to excess E66.01 Active calories Problem Obesity, unspecified obesity E66.9 Active severity, unspecified obesity type Problem Other specified diabetes mellitus E13.9 Active without complications Problem Chronic constipation K59.00 Active Problem Hypothyroidism, unspecified E03.9 Active Problem Constipation, unspecified K59.00 Ac tive Assessment Simple chronic bronchitis J41.0 Ac tive Assessment Drug-induced constipation K59.03 Ac tive Assessment Vitamin D deficiency, unspecified E55.9 Active Assessment Other specified hypothyroidism E03.8 Active Assessment Allergic rhinitis due to pollen J30.1 Active Assessment Osteopenia of spine M85.88 Active Assessment Major depressive disorder, single F32.9 Active episode, unspecified Assessment Essential (primary) hypertension I10 Active Assessment Familial hypercholesterolemia E78.01 Active Problem Chronic obstructive pulmonary J44.9 Active disease, unspecified COPD type Assessment Anxiety F41.9 Active Problem Mixed incontinence urge and stress N39.46 Active Problem Age-related osteoporosis without M81.0 Active current pathological fracture Problem Venous insufficiency I87.2 Active Problem Anxiety F41.9 Active Problem Other chronic pain G89.29 Active Problem Familial hypercholesterolemia E78.01 Active Problem Allergic rhinitis due to pollen J30.1 Active Problem Female stress incontinence N39.3 A ctive Problem Simple chronic bronchitis J41.0 Ac tive Assessment Dysuria R30.0 Active Problem Vitamin D deficiency, unspecified E55.9 Active Assessment Need for shingles vaccine Z23 Ac tive Problem Chronic idiopathic constipation K59.04 Active Assessment Type 2 diabetes mellitus without E11.9 Active complications Problem Pure hypercholesterolemia, E78.00 A ctive unspecified Assessment Morbid (severe) obesity due to E66.01 Active excess calories Problem Hypothyroidism E03.9 Active Problem Vitamin D deficiency E55.9 Active Problem Esophageal reflux K21.9 Active Problem Mixed hyperlipidemia E78.2 Active Problem Type II or unspecified type diabetes E11.9 Active mellitus without mention of complication, not stated as uncontrolled Problem Morbid obesity E66.01 Active Medications Medication Code Code Instructions Start End Status Dosage System Date Date Bactrim DS [facility] 73154670525 800-160 MG Jan 31, Active 1 tabl et Orally Twice a 2016 day BD Pen NDC 0 31.156 SQ three January 08, Active as times a day 2013 directed (tid) Neurontin ND 61996405978 600 MG Orally November 03, Active 1 ta blet Three times a 2014 day Viibryd ND 36281611111 10 mg Orally May 03, Active 1 table t Once a day 2016 with food Trulicity ND 30591181940 0.75mg/0.5ml sq Jan 31, Active on ce a every 2 wks 2016 week as directed Benadryl Allergy ND 92425801249 25 MG Orally Active 1 tablet once every night as need ed Xanax ND 54383207905 0.5 MG PO four Active 1 tab let times a day (qid) Symbicort ND 74428991737 80-4.5 MCG/ACT Jul 24, Active 2 p uffs Inhalation Twice 2014 a day Marycarmen BD ultra NDC 0 4mm x 32g Active as fine pen needles intradermally d irected three times a day (tid) BuPROPion HCl ND 07513910100 75 MG Orally August Active 1 tablet daily 2016 Prolia [facility] 25154833309 60 MG/ML Feb 14, Active as Subcutaneous 2017 directed every 6 months Levothyroxine ND 95401890543 125MCG orally Active 1 tablet Sodium daily Cinnamon ND 68966272831 500 MG Orally Active not defined Vitamin D ND 96650078013 2000 UNIT Orally Active 5 tablets Once a day One Touch ND 0 as directed bid Active use Glucometer with test strips and lancets Tumeric ND 0 Active not defined Clopidogrel ND 51487899839 75 MG Orally Active 1 t ablet Bisulfate Once a day Acidophilus ND 48398094115 - Orally Active not defined Macrobid [facility] 16467850958 100 mg Orally Apr 26, Active 1 cap yeimy twice a day 2016 with food (bid) Jud [facility] 42444539057 5-325 MG Orally September Active 1 ta blet three times a 2014 as needed day (tid) VESIcare [facility] 64316707754 10 MG Orally Jun 01, Active 1 tabl et Once a day 2015 Viibryd [facility] 40184908472 40MG Orally Active 1 tablet daily Diabetes Support [facility] 74539312795 THERAPY PACK Active not Orally defined Macrobid ND 91790517977 100 MG Orally Jun 01, Active 1 cap yeimy twice a day 2016 with food (bid) Victoza [facility] 24679721683 6MG/ML SQ daily Active 1.8 mg Levaquin ND 86612801465 500 mg Orally May 03, Active 1 tab let Once a day 2016 Edarbi [facility] 73385618511 40 mg Orally Mar 21, Active 1 tabl et twice a day 2016 (bid) Fish Oil [facility] 41488544605 1000 MG Orally Active 1 ca psule Once a day Vimovo ND 51027929556 500-20 MG Orally Mar 21, Active 1 tablet Twice a day 2016 before meals Macrobid [facility] 52342564273 100 MG Orally Jan 31, Active 1 cap yeimy every 12 hrs 2016 with food Acyclovir ND 73242327736 400 MG Orally November 03, Active 1 ta blet Three times a 2014 day Zostavax [facility] 44784329774 62799 UNT/0.65ML May 11, Active as Subcutaneous one 2016 directe d time Calcium + D [facility] 88915121234 600-200 MG-UNIT Active 2 tablet Orally twice a with food day (bid) Vitamin B-12 ND 04989241144 1000 MCG by Active 1 t ablet mouth Once a day Ultram ND 34520041552 50 mg Orally November 03, Active 1 table t twice a day 2014 as needed (bid) CoQ-10 ND 10267306194 30 MG Orally Active 1 capsu le Once a day with a meal Potassimin ND 47992664129 75 MG Orally Active 1 ta blet Once a day Cayenne ND 09975764778 450 MG Orally Active not defined Niacin ND 94985158286 250 MG Orally Active 1 tabl et Once a day Pen [place] 42541181621 31G X 8 MM SQ Aug 16, Active as 11/14" twice a day 2017 directed (bid) Sanctura ND 0 20 mg by mouth Jul 16, Active 1 tablet Once a day 2013 Darifenacin ND 17814980586 15 MG Orally Active 2 t ablet Hydrobromide ER Once a day with liquid Omeprazole ND 59796240626 20MG by mouth December 07, Active 1 tablet once a day 2015 Multi-betic ND 37817563381 - Orally Active not Diabetes defined Adipex-P ND 80141585938 37.5 MG Orally Jun 04, Active 1 ta blet Once a day 2014 Folic Acid ND 39870709436 800 MCG Orally Active 1 tablet Once a day Naproxen ND 12605205835 500MG Orally Active 1 tabl et twice a day (bid) Allergy Relief ND 50040665497 25 MG Orally Active 1 tablet every 8 hrs as needed Viibryd ND 11511458820 20 mg Orally May 03, Active 1 table t Once a day 2016 with food Osteo Bi-Flex ND 27322840697 - Orally Active not Triple Strength defined Fosamax ND 16345223857 70 MG Orally Active 1 table t weekly Linzess ND 20255527839 145 MCG Orally Active 1 cap yeimy Once a day Levemir Flexpen ND 09595660633 100 UNIT/ML Active 35 units Subcutaneous twice a day (bid) Ronald 3 ND 40102684667 1000 MG Orally Active 1 cap yeimy Once a day Flintstones Plus ND 14354110433 Multivitamin Active 1 tablet Iron Orally Once a day Vital Signs Date/Time: May 11, 2017 BMI 47.27 Index Weight 275.4 lbs Height 64 in Temperature 98.5 F Cardiac Monitoring Heart Rate 71 /min Blood Pressure Diastolic 81 mm Hg Blood Pressure Systolic 132 mm Hg Results No Known Results Summary Purpose [employer] Submission
--- OUTSIDE RECORDS SUMMARY | 2019-11-19 16:11 | XMS REPORT ---
:1955 Author Organization [employer] Care Team Providers Name Role Phone Jesus Lorena Provider Role Unavailable Allergies, Adverse Reactions, Alerts Substance Reaction Event Type sulfa Info Not Available Drug Allergy Bactrim Info Not Available Drug Allergy Problems Problem Type Condition Code Onset Dates Condition Statu s Problem Depressive disorder, not elsewhere F32.9 Active classified Assessment Dysuria R30.0 Active Problem Vitamin D deficiency E55.9 Active Problem Female stress incontinence N39.3 A ctive Problem Hypothyroidism E03.9 Active Problem Mixed hyperlipidemia E78.2 Active Problem Esophageal reflux K21.9 Active Problem Type II or unspecified type diabetes E11.9 Active mellitus without mention of complication, not stated as uncontrolled Problem Benign essential hypertension I10 Active Problem Morbid obesity due to excess E66.01 Active calories Problem Morbid obesity E66.01 Active Problem Obesity, unspecified obesity E66.9 Active severity, unspecified obesity type Problem Ischemic heart disease I25.9 Activ e Problem Neuropathy G62.9 Active Problem Hypothyroidism, unspecified E03.9 Active Problem Essential (primary) hypertension I10 Active Problem Chronic obstructive pulmonary J44.9 Active disease, unspecified COPD type Problem Chronic constipation K59.00 Active Problem Polyosteoarthritis, 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 Problem Other specified hypothyroidism E03.8 Active Assessment Chronic obstructive pulmonary J44.9 Active disease, unspecified COPD type Problem Age-related osteoporosis without M81.0 Active current pathological fracture Problem Type 2 diabetes mellitus without E11.9 Active complications Assessment Chronic constipation K59.00 Active Problem Other specified diabetes mellitus E13.9 Active without complications Assessment Mixed incontinence urge and stress N39.46 Active Problem Constipation, unspecified K59.00 Ac tive Assessment Anxiety F41.9 Active Problem Mixed incontinence urge and stress N39.46 Active Assessment Osteoarthritis of both knees, M17.0 Active unspecified osteoarthritis type Problem Anxiety F41.9 Active Assessment Age-related osteoporosis without M81.0 Active current pathological fracture Problem Anxiety disorder, unspecified F41.9 Active Assessment Type 2 diabetes mellitus without E11.9 Active complications Problem Major depressive disorder, single F32.9 Active episode, unspecified Assessment Essential (primary) hypertension I10 Active Problem Gastro-esophageal reflux disease K21.9 Active without esophagitis Assessment Other specified hypothyroidism E03.8 Active Problem Chronic obstructive pulmonary J44.9 Active disease, unspecified Assessment Gastro-esophageal reflux disease K21.9 Active without esophagitis Problem OA (osteoarthritis) M19.90 Active Assessment Morbid (severe) obesity due to E66.01 Active excess calories Problem Stress incontinence in female N39.3 Active Problem Morbid (severe) obesity due to E66.01 Active excess calories Problem Adjustment disorder with depressed F43.21 Active mood Medications Medication Code Code Instructions Start End Status Dosage System Date Date Levemir Flexpen [facility] [address]-92 100 UNIT/ML Active 35 units Subcutaneous twice a day (bid) Prolia [facility] [address]-98 60 MG/ML Feb 14, Active as Subcutaneous 2016 directed every 6 months Vimovo [facility] [address]-95 500-20 MG Orally Sept Active 1 tablet Twice a day , before 2015 meals BD Pen NDC 0 31.156 SQ december Active as times a day 10, directed (tid) 2013 Acyclovir [facility] [address]-41 400 MG Orally November 03, Active 1 tablet Three times a 2014 day Naproxen [facility] 96155884707 500MG Orally Active 1 tabl et twice a day (bid) Multi-betic [facility] 84[address]75 - Orally Active not Diabetes defined One Touch NDC 0 as directed bid Active use Glucometer with test strips and lancets Adipex-P [facility] [address]-73 37.5 MG Orally Jun 04, Active 1 tablet Once a day 2014 Diabetes Support [facility] [address] THERAPY PACK Active not Orally defined Sanctura NDC 0 20 mg by mouth Jul 16, Active 1 tablet Once a day 2013 Ultram [facility] [address]-52 50 mg Orally November 03, Active 1 tab let twice a day 2014 as needed (bid) Neurontin [facility] [address]-24 600 MG Orally November 03, Active 1 tablet Three times a 2014 day Calcium + D [facility] [address]-43 600-200 MG-UNIT Active 2 tablet Orally twice a with food day (bid) Tumeric NDC 0 Active not defined Acidophilus [facility] [address]-45 - Orally Active not defined Cinnamon [facility] [address]-43 500 MG Orally Active not defined Allergy Relief [facility] [address]-73 25 MG Orally Active 1 tablet every 8 hrs as needed Cayenne [facility] [address] 450 MG Orally Active not defined Flintstones Plus [facility] [address] Multivitamin Active 1 tablet Iron Orally Once a day Bactrim DS [facility] [address]-74 800-160 MG Jan 31, Active 1 ta blet Orally Twice a 2016 day Vitamin B-12 [facility] [address]12 1000 MCG by Active 1 t ablet mouth Once a day Fish Oil [facility] [address]-37 1000 MG Orally Active 1 capsule Once a day Symbicort [facility] [address]-10 80-4.5 MCG/ACT Jul 24, Active 2 puffs Inhalation Twice 2014 day Viibryd [facility] 41494996521 40MG Orally Active 1 tablet daily Levothyroxine [facility] 98972066345 125MCG orally Active 1 tablet Sodium daily Marycarmen BD ultra [facility] 0 4mm x 32g Active as fine pen needles intradermally d irected three times a day (tid) Darifenacin [facility] [address]-39 15 MG Orally Active 2 tablet Hydrobromide ER Once a day with liquid BuPROPion HCl [facility] [address]-70 75 MG Orally August Active 1 tablet daily 2016 Xanax [facility] [address]-45 0.5 MG PO four Active 1 t ablet times a day (qid) Edarbi [facility] [address]-64 40 MG Orally Sept Active 1 tab let twice a day , (bid) 2015 Linzess [facility] [address]-28 145 MCG Orally Active 1 c apsule Once a day Macrobid [facility] [address]-74 100 MG Orally Jan 31, Active 1 c apsule every 12 hrs 2016 with food CoQ-10 [facility] [address] 30 MG Orally Active 1 capsu le Once a day with a meal Kensal [facility] [address]-04 5-325 MG Orally September Active 1 tablet three times a 20, as needed day (tid) 2014 Niacin [facility] [address] 250 MG Orally Active 1 tabl et Once a day Trulicity [facility] 1534-78[address]-65 0.75mg/0.5ml sq Jan 31, Active o nce a once a week 2016 week as directed Potassimin [facility] [address]-77 75 MG Orally Active 1 tablet Once a day Victoza [facility] 80032050046 6MG/ML SQ daily Active 1.8 mg Omeprazole [facility] [address]-15 20MG by mouth November Active 1 tablet once a day 2015 VESIcare [facility] [address]-72 10 MG Orally Jun 01, Active 1 ta blet Once a day 2015 Folic Acid [facility] [address]-52 800 MCG Orally Active 1 tablet Once a day Pen Taswell [facility] [address]-33 31G X 8 MM SQ Aug 16, Active as 11/14" twice a day 2016 directed (bid) Fosamax [facility] [address]-00 70 MG Orally Active 1 tab let weekly Macrobid [facility] [address]-39 100 MG Orally Jun 01, Active 1 c apsule twice a day 2015 with food (bid) Osteo Bi-Flex [facility] [address] - Orally Active not Triple Strength defined Vital Signs Date/Time: Feb 14, 2017 BMI 48.23 Index Weight 281.0 lbs Height 64 in Temperature 99.4 F Cardiac Monitoring Heart Rate 87 /min Blood Pressure Diastolic 96 mm Hg Blood Pressure Systolic 106 mm Hg Results No Known Results Summary Purpose [employer] Submission
--- OUTSIDE RECORDS SUMMARY | 2019-11-19 16:12 | XMS REPORT ---
:1955 Author Organization [employer] Care Team Providers Name Role Phone TylermarlenLorena cortez Provider Role Unavailable Allergies, Adverse Reactions, Alerts [...] Problem OA (osteoarthritis) M19.90 Active Problem Morbid (severe) obesity due to E66.01 Active excess calories Problem Obesity, unspecified obesity E66.9 Active severity, unspecified obesity type Problem Neuropathy G62.9 Active Problem Stress incontinence in female N39.3 Active Problem Morbid obesity due to excess E66.01 Active calories Problem Constipation, unspecified K59.00 Ac tive Problem Other specified diabetes mellitus E13.9 Active without complications Problem Essential (primary) hypertension I10 Active Problem Hypothyroidism, unspecified E03.9 Active Assessment Other specified hypothyroidism E03.8 Active Assessment Vitamin D deficiency, unspecified E55.9 Active Assessment Allergic rhinitis due to pollen J30.1 Active Assessment Chronic obstructive pulmonary J44.9 Active disease, unspecified COPD type Assessment Other specified diabetes mellitus E13.9 Active without complications Assessment Osteopenia of spine M85.88 Active Assessment Anxiety F41.9 Active Problem Mixed incontinence urge and stress N39.46 Active Assessment Drug-induced constipation K59.03 Ac tive Problem Age-related osteoporosis without M81.0 Active current pathological fracture Problem Anxiety F41.9 Active Problem Chronic obstructive pulmonary J44.9 Active disease, unspecified COPD type Problem Chronic constipation K59.00 Active Problem Other chronic pain G89.29 Active Problem Simple chronic bronchitis J41.0 Ac tive Problem Allergic rhinitis due to pollen J30.1 Active Assessment Essential (primary) hypertension I10 Active Problem Chronic idiopathic constipation K59.04 Active Assessment Dysuria R30.0 Active Problem Pure hypercholesterolemia, E78.00 A ctive unspecified Assessment Low back pain M54.5 Active Problem Vitamin D deficiency, unspecified E55.9 Active Assessment Morbid (severe) obesity due to E66.01 Active excess calories Problem Venous insufficiency I87.2 Active Assessment Major depressive disorder, single F32.9 Active episode, unspecified Problem Mixed hyperlipidemia E78.2 Active Problem Hypothyroidism E03.9 Active Problem Morbid obesity E66.01 Active Problem Esophageal reflux K21.9 Active Problem Female stress incontinence N39.3 A ctive Problem Type II or unspecified type diabetes E11.9 Active mellitus without mention of complication, not stated as uncontrolled Medications Medication Code Code Instructions Start End Status Dosage System Date Date VESIcare [facility] 39805826394 10 MG Orally Jun 01, Active 1 tabl et Once a day 2015 Vitamin D [facility] 24557649445 2000 UNIT Orally Active 5 tablets Once a day Fish Oil [facility] 25661987393 1000 MG Orally Active 1 ca psule Once a day Prolia [facility] 67249196646 60 MG/ML Feb 14, Active as Subcutaneous 2016 directed every 6 months Allergy Relief [facility] 13657934198 25 MG Orally Active 1 tablet every 8 hrs as needed Folic Acid [facility] 10820811311 800 MCG Orally Active 1 tablet Once a day Tumeric NDC 0 Active not defined [place] 3 [facility] 04259229278 1000 MG Orally Active 1 cap yeimy Once a day [place] [facility] 39021918761 5-325 MG Orally September Active 1 ta blet three times a 2014 as needed day (tid) Flintstones Plus [facility] 30115178099 Multivitamin Active 1 tablet Iron Orally Once a day BuPROPion HCl ND 47624319200 75 MG Orally August Active 1 tablet daily 2016 Macrobid [facility] 34283282258 100 mg Orally Apr 26, Active 1 cap yeimy twice a day 2016 with food (bid) Bactrim DS [facility] 26796303527 800-160 MG Jan 31, Active 1 tabl et Orally Twice a 2016 day Trulicity ND 36782053433 0.75mg/0.5ml sq Jan 31, Active on ce a every 2 wks 2016 week as directed Macrobid [facility] 32481307064 100 MG Orally Jun 01, Active 1 cap yeimy twice a day 2015 with food (bid) Acidophilus ND 02656814760 - Orally Active not defined Multi-betic ND 28005934356 - Orally Active not Diabetes defined Victoza ND 90476945643 6MG/ML SQ daily Active 1.8 mg Cayenne ND 78670474508 450 MG Orally Active not defined Fosamax ND 79358794916 70 MG Orally Active 1 table t weekly BD Pen NDC 0 31.156 SQ three January 08, Active as times a day 2013 directed (tid) Sanctura NDC 0 20 mg by mouth Jul 16, Active 1 tablet Once a day 2013 Viibryd ND 91349327092 40MG Orally Active 1 tablet daily Potassimin ND 05444498984 75 MG Orally Active 1 ta blet Once a day CoQ-10 ND 67697913764 30 MG Orally Active 1 capsu le Once a day with a meal One Touch NDC 0 as directed bid Active use Glucometer with test strips and lancets Pen Ulm [facility] 52513408589 31G X 8 MM SQ Aug 16, Active as 516" twice a day 2016 directed (bid) Edarbi ND 32179072209 40 mg Orally Mar 21, Active 1 tabl et twice a day 2015 (bid) Cinnamon ND 17460977655 500 MG Orally Active not defined Naproxen ND 81342816249 500MG Orally Active 1 tabl et twice a day (bid) Levothyroxine ND 99366171503 125MCG orally Active 1 tablet Sodium daily Viibryd ND 52093640813 10 mg Orally May 03, Active 1 table t Once a day 2016 with food Acyclovir ND 16065927389 400 MG Orally November 03, Active 1 ta blet Three times a 2014 day Symbicort ND 95959682255 80-4.5 MCG/ACT Jul 24, Active 2 p uffs Inhalation Twice 2014 a day Benadryl Allergy ND 93043394628 25 MG Orally Active 1 tablet once every night as need ed Xanax ND 03519013014 0.5 MG PO four Active 1 tab let times a day (qid) Levaquin ND 79541486971 500 mg Orally May 03, Active 1 tab let Once a day 2016 Marycarmen BD ultra ND 0 4mm x 32g Active as fine pen needles intradermally d irected three times a day (tid) Macrobid ND 24872383268 100 MG Orally Jan 31, Active 1 cap yeimy every 12 hrs 2016 with food Osteo Bi-Flex ND 34407523637 - Orally Active not Triple Strength defined Linzess ND 06646116360 145 MCG Orally Active 1 cap yeimy Once a day Adipex-P ND 44522738481 37.5 MG Orally Jun 04, Active 1 ta blet Once a day 2014 Calcium + D ND 00192379656 600-200 MG-UNIT Active 2 tablet Orally twice a with food day (bid) Darifenacin ND 29778665095 15 MG Orally Active 2 t ablet Hydrobromide ER Once a day with liquid Ultram [facility] 87790569575 50 mg Orally November 03, Active 1 table t twice a day 2014 as needed (bid) Diabetes Support [facility] 70990877438 THERAPY PACK Active not Orally defined Vitamin B-12 ND 95667127928 1000 MCG by Active 1 t ablet mouth Once a day Neurontin ND 47191099564 600 MG Orally November 03, Active 1 ta blet Three times a 2014 day Vimovo ND 76930519467 500-20 MG Orally Mar 21, Active 1 tablet Twice a day 2015 before meals Omeprazole ND 67843593719 20MG by mouth December 07, Active 1 tablet once a day 2015 Clopidogrel ND 86826313930 75 MG Orally Active 1 t ablet Bisulfate Once a day Viibryd ND 59033858007 20 mg Orally May 03, Active 1 table t Once a day 2016 with food Niacin ND 51160617254 250 MG Orally Active 1 tabl et Once a day Levemir Flexpen ND 56819064829 100 UNIT/ML Active 35 units Subcutaneous twice a day (bid) Vital Signs Date/Time: May 03, 2017 BMI 47.82 Index Weight 278.6 lbs Height 64 in Temperature 98.5 F Blood Pressure Diastolic 83 mm Hg Blood Pressure Systolic 150 mm Hg Results Name Result Date Reference Range Unit Abnormali ty Flag Urinalysis (Urine Dipstick) ----Spec [place] 1.010 20170503 ----Turbidity cloudy 20170503 ----Glucose beg 20170503 ----Ketones neg 20170503 ----Blood neg 20170503 ----Bili neg 20170503 ----Color gene 20170503 ----pH 6.5 20170503 ----Leuk Est 70 20170503 ----Nitrite ++ 20170503 ----Urobilinogen 0.2 20170503 ----Protein 5 [id number] Toradol 60mg Summary Purpose [employer] Submission
--- OUTSIDE RECORDS SUMMARY | 2019-11-19 16:12 | XMS REPORT ---
[...] Problem Anxiety disorder, unspecified F41.9 Active Problem Chronic obstructive pulmonary J44.9 Active disease, unspecified COPD type Problem Major depressive disorder, single F32.9 Active episode, unspecified Problem Mixed incontinence urge and stress N39.46 Active Problem Morbid (severe) obesity due to E66.01 Active excess calories Problem Age-related osteoporosis without M81.0 Active current pathological fracture Problem Venous insufficiency I87.2 Active Problem Anxiety F41.9 Active Problem Other chronic pain G89.29 Active Problem Familial hypercholesterolemia E78.01 Active Problem Stress incontinence in female N39.3 Active Problem Adjustment disorder with depressed F43.21 Active mood Problem Female stress incontinence N39.3 A ctive Problem Allergic rhinitis due to pollen J30.1 Active Problem OA (osteoarthritis) M19.90 Active Assessment Major depressive disorder, single F32.9 Active episode, unspecified Problem Simple chronic bronchitis J41.0 Ac tive Problem Vitamin D deficiency, unspecified E55.9 Active Problem Chronic idiopathic constipation K59.04 Active Problem Pure hypercholesterolemia, E78.00 A ctive unspecified Problem Hypothyroidism E03.9 Active Problem Neuropathy G62.9 Active Problem Vitamin D deficiency E55.9 Active Problem Essential (primary) hypertension I10 Active Problem Esophageal reflux K21.9 Active Problem Morbid obesity due to excess E66.01 Active calories Problem Mixed hyperlipidemia E78.2 Active Problem Obesity, unspecified obesity E66.9 Active severity, unspecified obesity type Problem Type II or unspecified type diabetes E11.9 Active mellitus without mention of complication, not stated as uncontrolled Problem Other specified diabetes mellitus E13.9 Active without complications Problem Morbid obesity E66.01 Active Problem Chronic constipation K59.00 Active Problem Hypothyroidism, unspecified E03.9 Active Problem Constipation, unspecified K59.00 Ac tive Medications Medication Code Code Instructions Start End Status Dosage System Date Date Sanctura NDC 0 20 mg by mouth Jul 16, Active 1 tablet Once a day 2013 Trulicity [facility] 26897405211 0.75mg/0.5ml sq Jan 31, Active on ce a every 2 wks 2016 week as directed Clopidogrel ND 55237723705 75 MG Orally Active 1 t ablet Bisulfate Once a day Naproxen ND 73699598482 500MG Orally Active 1 tabl et twice a day (bid) Neurontin ND 52545444212 600 MG Orally November 03, Active 1 ta blet Three times a 2014 day Bactrim DS [facility] 36934884260 800-160 MG Jan 31, Active 1 tabl et Orally Twice a 2016 day Prolia [facility] 95718365546 60 MG/ML Feb 14, Active as Subcutaneous 2016 directed every 6 months Allergy Relief ND 60722563252 25 MG Orally Active 1 tablet every 8 hrs as needed Zostavax [facility] 55646982375 01818 UNT/0.65ML May 11, Active as Subcutaneous one 2016 directe d time Levemir Flexpen ND 33557761902 100 UNIT/ML Active 35 units Subcutaneous twice a day (bid) Ultram ND 61438433256 50 mg Orally November 03, Active 1 table t twice a day 2014 as needed (bid) Omeprazole ND 28787787541 20MG by mouth December 07, Active 1 tablet once a day 2015 VESIcare ND 02089924168 10 MG Orally Jun 01, Active 1 tabl et Once a day 2015 Darifenacin ND 00250646238 15 MG Orally Active 2 t ablet Hydrobromide ER Once a day with liquid [place] [facility] 79922342370 5-325 MG Orally September Active 1 ta blet three times a 2014 as needed day (tid) Viibryd ND 16070425046 40MG Orally Active 1 tablet daily Macrobid [facility] 75239766493 100 MG Orally Jan 31, Active 1 cap yeimy every 12 hrs 2016 with food Acyclovir ND 32983235710 400 MG Orally November 03, Active 1 ta blet Three times a 2014 day Macrobid ND 58631250271 100 MG Orally Jun 01, Active 1 cap yeimy twice a day 2015 with food (bid) Vitamin D ND 81454143705 2000 UNIT Orally Active 5 tablets Once a day Symbicort ND 30977141965 80-4.5 MCG/ACT Jul 24, Active 2 p uffs Inhalation Twice 2014 a day Linzess ND 65747351657 145 MCG Orally Active 1 cap yeimy Once a day Viibryd ND 51407181256 20 mg Orally May 03, Active 1 table t Once a day 2016 with food Vimovo ND 01205733979 500-20 MG Orally Mar 21, Active 1 tablet Twice a day 2015 before meals [place] 3 ND 03334891251 1000 MG Orally Active 1 cap yeimy Once a day Victoza ND 10298754966 6MG/ML SQ daily Active 1.8 mg Multi-betic ND 04514912148 - Orally Active not Diabetes defined Benadryl Allergy ND 57011841441 25 MG Orally Active 1 tablet once every night as need ed Diabetes Support [facility] 35393515955 THERAPY PACK Active not Orally defined BD Pen NDC 0 31.156 SQ three January 08, Active as times a day 2013 directed (tid) Macrobid [facility] 64808850401 100 mg Orally Apr 26, Active 1 cap yeimy twice a day 2016 with food (bid) Cinnamon ND 18708304342 500 MG Orally Active not defined Xanax ND 78892699051 0.5 MG PO four Active 1 tab let times a day (qid) Niacin ND 33818002694 250 MG Orally Active 1 tabl et Once a day Tumeric NDC 0 Active not defined Viibryd ND 63366037341 10 mg Orally May 03, Active 1 table t Once a day 2016 with food Levaquin ND 35543708291 500 mg Orally May 03, Active 1 tab let Once a day 2016 Fish Oil ND 22165623783 1000 MG Orally Active 1 ca psule Once a day Potassimin ND 64820700269 75 MG Orally Active 1 ta blet Once a day BuPROPion HCl ND 78409925569 75 MG Orally August Active 1 tablet daily 2016 Osteo Bi-Flex [facility] 74187313035 - Orally Active not Triple Strength defined Vitamin B-12 ND 73586239764 1000 MCG by Active 1 t ablet mouth Once a day Pen [place] [facility] 24717053508 31G X 8 MM SQ Aug 16, Active as 11/14" twice a day 2016 directed (bid) Adipex-P [facility] 36691265461 37.5 MG Orally Jun 04, Active 1 ta blet Once a day 2014 Edarbi [facility] 60439111805 40 mg Orally Mar 21, Active 1 tabl et twice a day 2015 (bid) Calcium + D [facility] 15136092124 600-200 MG-UNIT Active 2 tablet Orally twice a with food day (bid) Fosamax [facility] 24572338778 70 MG Orally Active 1 table t weekly Flintstones Plus [facility] 19432848875 Multivitamin Active 1 tablet Iron Orally Once a day Folic Acid [facility] 74517310715 800 MCG Orally Active 1 tablet Once a day CoQ-10 [facility] 64249649404 30 MG Orally Active 1 capsu le Once a day with a meal [place] [facility] 86825440825 450 MG Orally Active not defined One Touch NDC 0 as directed bid Active use Glucometer with test strips and lancets Acidophilus [facility] 01466646449 - Orally Active not defined Marycarmen BD ultra NDC 0 4mm x 32g Active as fine pen needles intradermally d irected three times a day (tid) Levothyroxine [facility] 61969766739 125MCG orally Active 1 tablet Sodium daily Results No Known Results Summary Purpose [employer]Works Submission
--- OUTSIDE RECORDS SUMMARY | 2019-11-19 16:13 | XMS REPORT ---
[...] Problem Constipation, unspecified K59.00 Ac tive Assessment Other specified hypothyroidism E03.8 Active Assessment Simple chronic bronchitis J41.0 Ac tive Assessment Osteopenia of spine M85.88 Active Assessment Type 2 diabetes mellitus without E11.9 Active complications Assessment Essential (primary) hypertension I10 Active Problem Chronic obstructive pulmonary J44.9 Active disease, unspecified COPD type Assessment Drug-induced constipation K59.03 Ac tive Problem Mixed incontinence urge and stress N39.46 Active Problem Age-related osteoporosis without M81.0 Active current pathological fracture Problem Venous insufficiency I87.2 Active Problem Anxiety F41.9 Active Problem Other chronic pain G89.29 Active Problem Familial hypercholesterolemia E78.01 Active Problem Allergic rhinitis due to pollen J30.1 Active Problem Female stress incontinence N39.3 A ctive Problem Simple chronic bronchitis J41.0 Ac tive Assessment Pain in left knee M25.562 Active Problem Vitamin D deficiency, unspecified E55.9 Active Assessment Anxiety F41.9 Active Problem Chronic idiopathic constipation K59.04 Active Assessment Right foot pain M79.671 Active Problem Pure hypercholesterolemia, E78.00 A ctive unspecified Assessment Major depressive disorder, single F32.9 Active episode, unspecified Problem Hypothyroidism E03.9 Active Problem Vitamin D deficiency E55.9 Active Problem Esophageal reflux K21.9 Active Problem Mixed hyperlipidemia E78.2 Active Problem Type II or unspecified type E11.9 Active diabetes mellitus without mention of complication, not stated as uncontrolled Problem Morbid obesity E66.01 Active Medications Medication Code Code Instructions Start End Status Dosage System Date Date Darifenacin [facility] 26415164385 15 MG Orally Active 2 t ablet Hydrobromide ER Once a day with liquid BD Pen NDC 0 31.156 SQ three January 08, Active as times a day 2013 directed (tid) Marycarmen BD ultra NDC 0 4mm x 32g Active as fine pen needles intradermally d irected three times a day (tid) Viibryd ND 84927156866 10 mg Orally May 03, Active 1 table t Once a day 2016 with food Trulicity ND 73086811461 0.75mg/0.5ml sq Jan 31, Active on ce a every 2 wks 2017 week as directed Vitamin D [facility] 64033677627 2000 UNIT Orally Active 5 tablets Once a day Levothyroxine ND 20397201483 125MCG orally Active 1 tablet Sodium daily Linzess ND 90437331021 145 MCG Orally Active 1 cap yeimy Once a day Neurontin ND 83660269058 600 MG Orally November 03, Active 1 ta blet Three times a 2014 day Victoza ND 27068168716 6MG/ML SQ daily Active 1.8 mg One Touch NDC 0 as directed bid Active use Glucometer with test strips and lancets Symbicort ND 19018890400 80-4.5 MCG/ACT Jul 24, Active 2 p uffs Inhalation Twice 2014 a day Multi-betic ND 10656709977 - Orally Active not Diabetes defined Pen [place] ND 12676771797 31G X 8 MM SQ Aug 16, Active as 11/14" twice a day 2016 directed (bid) Acidophilus ND 55093535960 - Orally Active not defined Tumeric ND 0 Active not defined Benadryl Allergy ND 68110118516 25 MG Orally Active 1 tablet once every night as need ed Prolia ND 82929864272 60 MG/ML Feb 14, Active as Subcutaneous 2016 directed every 6 months Levaquin ND 79661745558 500 mg Orally May 03, Active 1 tab let Once a day 2016 CoQ-10 ND 83162955411 30 MG Orally Active 1 capsu le Once a day with a meal Calcium + D [facility] 80631843323 600-200 MG-UNIT Active 2 tablet Orally twice a with food day (bid) Naproxen ND 76237523628 500MG Orally Active 1 tabl et twice a day (bid) Bactrim DS ND 96324723910 800-160 MG Jan 31, Active 1 tabl et Orally Twice a 2016 day Macrobid [facility] 53832875466 100 MG Orally Jun 01, Active 1 cap yeimy twice a day 2015 with food (bid) BuPROPion HCl ND 54143939222 75 MG Orally August Active 1 tablet daily 2016 Macrobid [facility] 76386267055 100 mg Orally Apr 26, Active 1 cap yeimy twice a day 2016 with food (bid) Xanax ND 32444358377 0.5 MG PO four Active 1 tab let times a day (qid) Flintstones Plus [facility] 67073508543 Multivitamin Active 1 tablet Iron Orally Once a day [place] 3 ND 25372104849 1000 MG Orally Active 1 cap yeimy Once a day Macrobid [facility] 23798283393 100 MG Orally Jan 31, Active 1 cap yeimy every 12 hrs 2016 with food Acyclovir ND 37278113209 400 MG Orally November 03, Active 1 ta blet Three times a 2014 day Fosamax ND 49860168757 70 MG Orally Active 1 table t weekly Viibryd [facility] 60314852703 40MG Orally Active 1 tablet daily Vitamin B-12 ND 56492556587 1000 MCG by Active 1 t ablet mouth Once a day Ultram [facility] 54631381507 50 mg Orally November 03, Active 1 table t twice a day 2014 as needed (bid) Fish Oil ND 84304255870 1000 MG Orally Active 1 ca psule Once a day [place] ND 92910524131 5-325 MG Orally September Active 1 ta blet three times a 2014 as needed day (tid) Cayenne ND 46699231177 450 MG Orally Active not defined Niacin ND 41524243816 250 MG Orally Active 1 tabl et Once a day Zostavax [facility] 30948710579 16447 UNT/0.65ML May 11, Active as Subcutaneous one 2016 directe d time Sanctura ND 0 20 mg by mouth Jul 16, Active 1 tablet Once a day 2013 Diabetes Support [facility] 85001149660 THERAPY PACK Active not Orally defined Omeprazole ND 99386777560 20MG by mouth December 07, Active 1 tablet once a day 2015 Cinnamon ND 85808669970 500 MG Orally Active not defined Adipex-P [facility] 70487077363 37.5 MG Orally Jun 04, Active 1 ta blet Once a day 2014 Folic Acid ND 73041996856 800 MCG Orally Active 1 tablet Once a day VESIcare ND 01002132776 10 MG Orally Jun 01, Active 1 tabl et Once a day 2016 Allergy Relief ND 51350278750 25 MG Orally Active 1 tablet every 8 hrs as needed Edarbi ND 78684696224 40 mg Orally Mar 21, Active 1 tabl et twice a day 2015 (bid) Osteo Bi-Flex [facility] 30143162000 - Orally Active not Triple Strength defined Viibryd ND 92089530684 20 mg Orally May 03, Active 1 table t Once a day 2016 with food Vimovo ND 70940140267 500-20 MG Orally Mar 21, Active 1 tablet Twice a day 2016 before meals Levemir Flexpen ND 76521237173 100 UNIT/ML Active 35 units Subcutaneous twice a day (bid) Clopidogrel ND 59020295165 75 MG Orally Active 1 t ablet Bisulfate Once a day Potassimin ND 43407289167 75 MG Orally Active 1 ta blet Once a day Vital Signs Date/Time: Jun 06, 2017 BMI 46.79 Index Weight 272.6 lbs Height 64 in Temperature 98.3 F Cardiac Monitoring Heart Rate 74 /min Blood Pressure Diastolic 73 mm Hg Blood Pressure Systolic 136 mm Hg Results No Known Results Summary Purpose eClinicalWorks Submission
--- OUTSIDE RECORDS SUMMARY | 2019-11-19 16:14 | XMS REPORT ---
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 Problem Other specified hypothyroidism E03.8 Active Problem Gastro-esophageal reflux disease K21.9 Active without esophagitis Problem Chronic obstructive pulmonary J44.9 Active disease, unspecified Problem OA (osteoarthritis) M19.90 Active Problem Adjustment disorder with depressed F43.21 Active mood Problem Stress incontinence in female N39.3 Active Problem Morbid obesity due to excess E66.01 Active calories Problem Obesity, unspecified obesity E66.9 Active severity, unspecified obesity type Problem Hypothyroidism, unspecified E03.9 Active Problem Essential (primary) hypertension I10 Active Problem Neuropathy G62.9 Active Problem Chronic obstructive pulmonary J44.9 Active disease, unspecified COPD type Problem Age-related osteoporosis without M81.0 Active current pathological fracture Problem Other specified diabetes mellitus E13.9 Active without complications Problem Constipation, unspecified K59.00 Ac tive Problem Mixed incontinence urge and stress N39.46 Active Problem Simple chronic bronchitis J41.0 Ac tive Problem Chronic constipation K59.00 Active Problem Anxiety F41.9 Active Assessment PAD (peripheral artery disease) I73.9 Active Assessment Anxiety F41.9 Active Assessment Acquired hypothyroidism E03.9 Acti ve Assessment Other specified diabetes mellitus E13.9 Active without complications Assessment Morbid (severe) obesity due to E66.01 Active excess calories Assessment Osteopenia of lumbar spine M85.88 A ctive Assessment Drug-induced constipation K59.03 Ac tive Assessment Major depressive disorder, single F32.9 Active episode, unspecified Assessment Benign essential hypertension I10 Active Assessment Pain in left knee M25.562 Active Assessment Pain in right knee M25.561 Active Problem Female stress incontinence N39.3 A ctive Problem Venous insufficiency I87.2 Active Assessment Familial hypercholesterolemia E78.01 Active Problem Vitamin D deficiency, unspecified E55.9 Active Problem Pure hypercholesterolemia, E78.00 A ctive unspecified Problem Familial hypercholesterolemia E78.01 Active Problem Chronic idiopathic constipation K59.04 Active Problem Acquired hypothyroidism E03.9 Acti ve Problem Urge incontinence N39.41 Active Problem PAD (peripheral artery disease) I73.9 Active Problem Hypothyroidism E03.9 Active Problem Other chronic pain G89.29 Active Problem Mixed hyperlipidemia E78.2 Active Problem Allergic rhinitis due to pollen J30.1 Active Problem Esophageal reflux K21.9 Active Problem Slow transit constipation K59.01 Ac tive Problem Morbid obesity E66.01 Active Problem Coronary artery disease involving I25.10 Active [place] coronary artery of [place] heart without angina pectoris Problem Type II or unspecified type E11.9 Active diabetes mellitus without mention of complication, not stated as uncontrolled Problem Type 2 diabetes mellitus without E11.9 Active complications Problem Anxiety disorder, unspecified F41.9 Active Problem Benign essential hypertension I10 Active Problem Ischemic heart disease I25.9 Activ e Problem Vitamin D deficiency E55.9 Active Problem Depressive disorder, not elsewhere F32.9 Active classified Medications Medication Code Code Instructions Start End Status Dosage System Date Date Pen [place] [facility] [id number] 31G X 8 MM SQ Aug 16, Active as 5/16" twice a day 2017 directed (bid) Osteo Bi-Flex [facility] 54605008104 - Orally Active not Triple Strength defined Levothyroxine [facility] 67076340180 125MCG orally Active 1 tablet Sodium daily Fish Oil [facility] 55932039268 1000 MG Orally Active 1 ca psule Once a day Flintstones Plus [facility] 65143294950 Multivitamin Active 1 tablet Iron Orally Once a day Viibryd [facility] 24438054247 40MG Orally Active 1 tablet daily Macrobid [facility] 18557304834 100 MG Orally Jun 01, Active 1 cap yeimy twice a day 2015 with food (bid) Naproxen [facility] 59424219354 500MG Orally Active 1 tabl et twice a day (bid) Viibryd [facility] 97672850320 20 mg Orally May 03, Active 1 table t Once a day 2016 with food Symbicort [facility] 43392347056 80-4.5 MCG/ACT Jul 24, Active 2 p uffs Inhalation Twice 2014 a day Viibryd ND 51243111870 10 mg Orally May 03, Active 1 table t Once a day 2016 with food Victoza ND 94876265037 6MG/ML SQ daily Active 1.8 mg BD Pen NDC 0 31.156 SQ three December Active as times a day 10, directed (tid) 2013 Cayenne ND 58506240292 450 MG Orally Active not defined BuPROPion HCl ND 26645305142 75 MG Orally August Active 1 tablet daily 2016 Omeprazole ND 36994477519 20MG by mouth November Active 1 t ablet once a day 2015 Linzess ND 47334183830 145 MCG Orally Active 1 cap yeimy Once a day Acyclovir ND 60950590484 400 MG Orally November 03, Active 1 ta blet Three times a 2014 day VESIcare ND 16873702849 10 MG Orally Jun 01, Active 1 tabl et Once a day 2015 Fosamax ND 72263321025 70 MG Orally Active 1 table t weekly CoQ-10 ND 34169347752 30 MG Orally Active 1 capsu le Once a day with a meal Edarbi ND 28143737694 40 mg Orally Sept Inactive 1 tabl et twice a day , (bid) 2015 Prolia ND 61791144096 60 MG/ML Feb 14, Active as Subcutaneous 2016 directed every 6 months Levaquin ND 35467710018 500 mg Orally May 03, Active 1 tab let Once a day 2016 [place] 3 ND 74613929605 1000 MG Orally Active 1 cap yeimy Once a day Cinnamon ND 93642656865 500 MG Orally Active not defined Fosfree ND 48236126636 - Orally Active not defined Myrbetriq ND 80565596258 50 mg Orally Aug 17, Active 1 tab let Once a day 2017 Vitamin D ND 49876643582 2000 UNIT Orally Active 5 tablets Once a day [place] ND 73843685599 5-325 MG Orally September Active 1 ta blet three times a , as needed day (tid) 2014 Macrobid ND 81265629865 100 MG Orally Jan 31, Active 1 cap yeimy every 12 hrs 2016 with food Tumeric NDC 0 Active not defined Potassimin [facility] 75986779400 75 MG Orally Active 1 ta blet Once a day Benadryl Allergy ND 92945025083 25 MG Orally Active 1 tablet once every night as need ed Niacin ND 75592693892 250 MG Orally Active 1 tabl et Once a day Marycarmen BD ultra NDC 0 4mm x 32g Active as fine pen needles intradermally d irected three times a day (tid) Aspir-81 [facility] 46655028313 81 MG Orally Active 1 tabl et Once a day Multi-betic ND 74254460569 - Orally Active not Diabetes defined Folic Acid ND 09977477385 800 MCG Orally Active 1 tablet Once a day Macrobid [facility] 88572418422 100 mg Orally Apr 26, Active 1 cap yeimy twice a day 2016 with food (bid) Trulicity [facility] 77319842632 0.75mg/0.5ml sq Jan 31, Active on ce a every 2 wks 2016 week as directed Clopidogrel [facility] 43056181008 75 MG Orally Active 1 t ablet Bisulfate Once a day [employer] Thyroid [facility] 81750009483 120 MG Orally August Active 1 t ablet Once a day 12, on an 2018 empty stomach Calcium + D [facility] 16530983015 600-200 MG-UNIT Active 2 tablet Orally twice a with food day (bid) Pravastatin [facility] 51940034060 20 mg Orally Active 1 t ablet Sodium once every night Vimovo [facility] 91996064950 500-20 MG Orally Sept Active 1 t ablet Twice a day 20, before 2016 meals Allergy Relief [facility] 75727940982 25 MG Orally Active 1 tablet every 8 hrs as needed Xanax [facility] 63236058415 0.5 MG PO four Active 1 tab let times a day (qid) Sanctura ND 0 20 mg by mouth Jul 16, Active 1 tablet Once a day 2013 Zostavax [facility] 57114705671 02674 UNT/0.65ML May 11, Active as Subcutaneous one 2016 directe d time Vitamin B-12 ND 20417714497 1000 MCG by Active 1 t ablet mouth Once a day AZO Bladder [facility] 98986344522 - Orally Active not Control/Go-Less defined Levemir Flexpen [facility] 99885447941 100 UNIT/ML Active 35 units Subcutaneous twice a day (bid) Bactrim DS ND 78589183928 800-160 MG Jan 31, Active 1 tabl et Orally Twice a 2016 day Ultram ND 06777527160 50 mg Orally November 03, Active 1 table t twice a day 2014 as needed (bid) Diabetes Support [facility] 31393738038 THERAPY PACK Active not Orally defined Neurontin ND 86484642973 600 MG Orally November 03, Active 1 ta blet Three times a 2014 day Acidophilus ND 74590527364 - Orally Active not defined Darifenacin ND 38209223030 15 MG Orally Active 2 t ablet Hydrobromide ER Once a day with liquid Adipex-P ND 11988364309 37.5 MG Orally Jun 04, Active 1 ta blet Once a day 2014 One Touch ND 0 as directed bid Active use Glucometer with test strips and lancets Lisinopril ND 82116583312 20 mg Orally August Active 1 ta blet twice a day , (bid) 2017 Vital Signs Date/Time: September 10, 2017 BMI 46.17 Index Weight 269 lbs Height 64 in Temperature 97.5 F Cardiac Monitoring Heart Rate 90 /min Blood Pressure Diastolic 93 mm Hg Blood Pressure Systolic 152 mm Hg Results No Known Results Summary Purpose [employer] Submission
--- OUTSIDE RECORDS SUMMARY | 2019-11-19 16:15 | XMS REPORT ---
[...] tive Problem Chronic constipation K59.00 Active Assessment Familial hypercholesterolemia E78.01 Active Assessment Other specified hypothyroidism E03.8 Active Assessment Vitamin D deficiency, unspecified E55.9 Active Problem Anxiety F41.9 Active Problem Chronic [...] Problem Chronic idiopathic constipation K59.04 Active Assessment Morbid (severe) obesity due to E66.01 Active excess calories Assessment Drug-induced constipation K59.03 Ac tive Assessment Osteopenia of lumbar spine M85.88 A ctive Assessment Essential (primary) hypertension I10 Active Problem Type II or unspecified type diabetes E11.9 Active mellitus without mention of complication, not stated as uncontrolled Problem Female stress incontinence N39.3 A ctive Assessment Dysuria R30.0 Active Assessment Bipolar 1 disorder F31.9 Active Assessment NERY (obstructive sleep apnea) G47.33 Active Problem Morbid obesity E66.01 Active Problem Esophageal reflux K21.9 Active Problem Mixed hyperlipidemia E78.2 Active Problem Hypothyroidism E03.9 Active Problem Allergic rhinitis due to pollen J30.1 Active Problem Benign essential hypertension I10 Active Problem Slow transit constipation K59.01 Ac tive Problem Coronary artery disease involving I25.10 Active [place] coronary artery of [place] heart without angina pectoris Problem Acquired hypothyroidism [...] Start End Status Dosage System Date Date [facility] 51562163322 450 MG Orally Active not defined BusPIRone HCl ND 09225587976 30 MG Orally bid Activ e TAKE 1 TABLET BY MOUTH TWICE A DAY Vitamin B-12 ND 37137082475 1000 MCG by Active 1 t ablet mouth Once a day Saxenda ND 90887061250 18 MG/3ML November Active 3.0mg Subcutaneous 28, daily 2017 Marycarmen BD ultra NDC 0 4mm x 32g Active as fine pen needles intradermally d irected three times a day (tid) Omeprazole ND 88726533210 20MG by mouth November Active 1 t ablet once a day 2015 Duloxetine HCl ND 97765611246 30 MG Orally Active 1 capsule Once a day Pentazocine-Nalo [facility] 96500358811 50-0.5 MG Oral Acti ve not xone HCl defined Lomaira ND 00008778784 8 MG Orally Feb 20, Active 1 tablet Three times a 2018 before day meals Prolia ND 23562688935 60 MG/ML Apr 11, Active as Subcutaneous 2018 directed everry 6 months NovoFine ND 27800497412 32G X 6 MM SQ November Active as daily 28, directed 2017 Bactrim DS ND 12729166895 800-160 MG Jan 31, Active 1 tabl et Orally Twice a 2017 day Macrobid ND 85399795210 100 MG Orally Jan 31, Active 1 cap yeimy every 12 hrs 2016 with food Tumeric NDC 0 Active not defined Pen [place] ND 99039108001 31G X 8 MM SQ Aug 16, Active as 11/14" twice a day 2017 directed (bid) Viibryd ND 72042631775 20 mg Orally May 03, Active 1 table t Once a day 2016 with food Linzess ND 78396621779 72 mcg orally Active 1 caps ule Daily Prolia ND 19136805548 60 MG/ML Jul 19, Active 60mg/ml Subcutaneous 2019 every 6 months Pravastatin ND 06820932858 20 mg Orally Active 1 t ablet Sodium once every night Naproxen ND 65659540554 375 MG Orally Active 1 tab let every 12 hrs with food or milk as needed Trulicity ND 20596248605 0.75mg/0.5ml sq Jan 31, Active on ce a every 2 wks 2016 week as directed Macrobid ND 46209564321 100 mg Orally December Active 1 cap yeimy every 12 hrs , with food 2017 One A Day Multi NDC 0 by mouth once a Active as Vitamin day directed Vitamin D ND 97289096638 2000 UNIT Orally Active 5 tablets Once a day Zostavax ND 57970131554 22481 UNT/0.65ML May 11, Active as Subcutaneous one 2016 directe d time Cinnamon ND 59106612673 500 MG Orally Active not defined Aripiprazole ND 20131246220 10 MG Oral Active TAKE 1 TABLET BY MOUTH EVERY DAY CoQ-10 ND 82546367392 30 MG Orally Active 1 capsu le Once a day with a meal Omeprazole ND 23831978213 20 mg Orally Jul 19, Active 1 ca psule Once a day 2018 Myrbetriq ND 99180502873 50 mg Orally Aug 17, Active 1 tab let Once a day 2017 Viibryd ND 82034079438 40MG Orally Active 1 tablet daily Victoza ND 57836894305 6MG/ML SQ daily Active 1.8 mg Benadryl Allergy ND 02174366185 25 MG Orally Active 1 tablet once every night as need ed One Touch NDC 0 as directed bid Active use Glucometer with test strips and lancets BuPROPion HCl ND 20875754860 75 MG Orally August Active 1 tablet daily 2016 Diabetes Support [facility] 12655952541 THERAPY PACK Active not Orally defined Uribel ND 82221741543 118 MG Orally December Active 1 caps ule three times a , day (tid) 2017 HydrOXYzine HCl ND 55802603869 25 MG Oral Active T MARIAH 1 TABLET BY MOUTH EVERY DAY NEEDED Fosfree [facility] [address]-88 - Orally once Active 2 ta blet every night Potassimin ND 39209537556 75 MG Orally Active 1 ta blet Once a day Levaquin ND 72494939919 500 mg Orally Feb 06, Active 1 tab let Once a day 2017 Allergy Relief ND 58268744535 25 MG Orally Active 1 tablet every 8 hrs as needed Sanctura NDC 0 20 mg by mouth Jul 16, Active 1 tablet Once a day 2013 Gabapentin ND 27807585259 400 MG Orally Jul 12, Active 2 c apsule twice a day 2018 (bid) Lisinopril ND 65147042498 20 mg Orally Active 1 ta blet twice a day (bid) VESIcare ND 02494479964 10 MG Orally Jun 01, Active 1 tabl et Once a day 2015 Ultram ND 36048431191 50 mg Orally November 03, Active 1 table t twice a day 2014 as needed (bid) Acyclovir ND 69624258227 400 MG Orally November 03, Active 1 ta blet Three times a 2014 day [place] ND 61282285235 5-325 MG Orally September Active 1 ta blet three times a , as needed day (tid) 2014 Fish Oil ND 70428530882 1000 MG Orally Active 1 ca psule Once a day Niacin ND 34043027851 250 MG Orally Active 1 tabl et Once a day Viibryd [facility] 96317205215 10 mg Orally Active 1 table t Once a day with food Cephalexin ND 58361178734 500 mg Orally May 20, Active 1 t ablet every 12 hrs 2018 Aspir-81 ND 92892330469 81 MG Orally Active 1 tabl et Once a day Flintstones Plus [facility] 30147158815 Multivitamin Active 1 tablet Iron Orally Once a day Multi-betic ND 74536366111 - Orally Active not Diabetes defined Fosamax ND 20318084591 70 MG Orally Active 1 table t weekly Acidophilus ND 52103515592 - Orally Active not defined AZO Bladder ND 14570363339 - Orally Active not Control/Go-Less defined Naproxen ND 97869636907 500MG Orally Active 1 tabl et twice a day (bid) Levothyroxine [facility] 11064338370 125MCG orally Active 1 tablet Sodium daily Neurontin ND 28810840449 600 MG Orally November 03, Active 1 ta blet Three times a 2014 Osteo Bi-Flex [facility] 84672253089 - Orally Active not Triple Strength defined Sleep Aid [facility] 71614223950 25 MG Orally Active 1 tab let Once a day at bedtime as needed Symbicort [facility] 16752930617 80-4.5 MCG/ACT Jul 24, Active 2 p uffs Inhalation Twice 2014 a day LINE INSPECTOR Thyroid [facility] 60657238330 90 MG Orally August Active 1 ta blet Once a day 12, on an 2018 empty stomach [place] 3 ND 94643736963 1000 MG Orally Active 1 cap yeimy Once a day Vimovo ND 51521407564 500-20 MG Orally Sept Active 1 t ablet Twice a day 20, before 2016 meals Clopidogrel ND 70851283080 75 mg Orally Active 1 t ablet Bisulfate Once a day disabled placard ND 0 n/a n/a daily December Active a s 12, directed 2017 Levaquin ND 23356776885 500 mg Orally Jul 19, Active 1 tab let Once a day 2019 [place] ND 39681783519 15 MG Orally November 21, Active 1 caps ule Once a day 2018 at bedtime as needed Cephalexin ND 06690123356 500 mg Orally Active 1 t ablet four times a day (qid) Calcium + D [facility] 82955292709 600-200 MG-UNIT Active 2 tablet Orally twice a with food day (bid) Vital Signs Date/Time: October 01, 2018 BMI 45.04 Index Weight 262.4 lbs Height 64 in Temperature 98.7 F Cardiac Monitoring Heart Rate 92 /min Blood Pressure Diastolic 73 mm Hg Blood Pressure Systolic 134 mm Hg Results Name Result Date Reference Range Unit Abnormali ty Flag Urinalysis (Urine Dipstick) ----Spec Thomas 1.020 20181001 ----Turbidity clear 20181001 ----Glucose neg 20181001 ----Ketones neg 20181001 ----Blood neg 20181001 ----Bili neg 20181001 ----Color yellow 20181001 ----pH 5 20181001 ----Leuk Est neg 20181001 ----Nitrite neg 20181001 ----Urobilinogen 0.2 20181001 ----Protein neg 20181001 Summary Purpose eClinicalWorks Submission
--- OUTSIDE RECORDS SUMMARY | 2019-11-19 16:15 | XMS REPORT ---
[...] Active Problem OA (osteoarthritis) M19.90 Active Assessment Simple chronic bronchitis J41.0 Ac tive Problem Simple chronic bronchitis J41.0 Ac tive [...] Start End Status Dosage System Date Date Levothyroxine [facility] 72454119410 125MCG orally Active 1 tablet Sodium daily Diabetes Support [facility] 74524640156 THERAPY PACK Active not Orally defined Viibryd [facility] 14525651594 10 mg Orally May 03, Active 1 table t Once a day 2016 with food Acyclovir ND 47508999251 400 MG Orally November 03, Active 1 ta blet Three times a 2014 day Sanctura ND 0 20 mg by mouth Jul 16, Active 1 tablet Once a day 2013 Flintstones Plus [facility] 98067612854 Multivitamin Active 1 tablet Iron Orally Once a day Naproxen ND 78791676174 500MG Orally Active 1 tabl et twice a day (bid) Calcium + D [facility] 44756305006 600-200 MG-UNIT Active 2 tablet Orally twice a with food day (bid) Levaquin ND 29512997518 500 mg Orally May 03, Active 1 tab let Once a day 2016 Tumeric NDC 0 Active not defined Zostavax [facility] 76829079856 20731 UNT/0.65ML May 11, Active as Subcutaneous one 2016 directe d time VESIcare [facility] 26457307538 10 MG Orally Jun 01, Active 1 tabl et Once a day 2015 Symbicort [facility] 53797835036 80-4.5 MCG/ACT Jul 24, Active 2 p uffs Inhalation Twice 2014 a day Adipex-P [facility] 25100087723 37.5 MG Orally Jun 04, Active 1 ta blet Once a day 2014 Vitamin D ND 60435876014 2000 UNIT Orally Active 5 tablets Once a day Vitamin B-12 ND 97666189606 1000 MCG by Active 1 t ablet mouth Once a day [employer] [facility] 77170311980 5-325 MG Orally September Active 1 ta blet three times a 2014 as needed day (tid) Viibryd [facility] 09076952749 20 mg Orally May 03, Active 1 table t Once a day 2016 with food Ultram ND 13039096959 50 mg Orally November 03, Active 1 table t twice a day 2014 as needed (bid) Prolia ND 64364293499 60 MG/ML Feb 14, Active as Subcutaneous 2016 directed every 6 months Multi-betic ND 34041842401 - Orally Active not Diabetes defined Cinnamon ND 70450369373 500 MG Orally Active not defined Edarbi ND 14187831021 40 mg Orally Mar 21, Active 1 tabl et twice a day 2015 (bid) Trulicity ND 71628378425 0.75mg/0.5ml sq Jan 31, Active on ce a every 2 wks 2016 week as directed Macrobid ND 02628169071 100 mg Orally Apr 26, Active 1 cap yeimy twice a day 2016 with food (bid) BD Pen NDC 0 31.156 SQ three January 08, Active as times a day 2013 directed (tid) BuPROPion HCl ND 97156059551 75 MG Orally August Active 1 tablet daily 2016 One Touch NDC 0 as directed bid Active use Glucometer with test strips and lancets Fish Oil ND 12813087683 1000 MG Orally Active 1 ca psule Once a day Levemir Flexpen ND 75528589966 100 UNIT/ML Active 35 units Subcutaneous twice a day (bid) Macrobid [facility] 97408043949 100 MG Orally Jan 31, Active 1 cap yeimy every 12 hrs 2016 with food Neurontin ND 67668507352 600 MG Orally November 03, Active 1 ta blet Three times a 2014 day Osteo Bi-Flex [facility] 59171313236 - Orally Active not Triple Strength defined Bactrim DS [facility] 70362998835 800-160 MG Jan 31, Active 1 tabl et Orally Twice a 2016 day Darifenacin ND 22754645367 15 MG Orally Active 2 t ablet Hydrobromide ER Once a day with liquid Allergy Relief ND 52426798212 25 MG Orally Active 1 tablet every 8 hrs as needed [place] ND 84077104259 450 MG Orally Active not defined Xanax ND 88382494800 0.5 MG PO four Active 1 tab let times a day (qid) Clopidogrel ND 49973027503 75 MG Orally Active 1 t ablet Bisulfate Once a day Potassimin ND 58983386527 75 MG Orally Active 1 ta blet Once a day Omeprazole ND 47262695843 20MG by mouth December 07, Active 1 tablet once a day 2015 Fosamax ND 78585625278 70 MG Orally Active 1 table t weekly Linzess ND 50085656718 145 MCG Orally Active 1 cap yeimy Once a day Pen Napavine ND 91010975899 31G X 8 MM SQ Aug 16, Active as 11/14" twice a day 2016 directed (bid) Folic Acid ND 43825031592 800 MCG Orally Active 1 tablet Once a day [place] 3 ND 34355962324 1000 MG Orally Active 1 cap yeimy Once a day Niacin ND 93750625851 250 MG Orally Active 1 tabl et Once a day Benadryl Allergy ND 88749878416 25 MG Orally Active 1 tablet once every night as need ed Macrobid ND 72784749387 100 MG Orally Jun 01, Active 1 cap yeimy twice a day 2015 with food (bid) Vimovo ND 87602773849 500-20 MG Orally Mar 21, Active 1 tablet Twice a day 2015 before meals Marycarmen BD ultra NDC 0 4mm x 32g Active as fine pen needles intradermally d irected three times a day (tid) Viibryd ND 68765674890 40MG Orally Active 1 tablet daily Victoza ND 58488412227 6MG/ML SQ daily Active 1.8 mg CoQ-10 ND 63461788914 30 MG Orally Active 1 capsu le Once a day with a meal Acidophilus ND 49890083179 - Orally Active not defined Results No Known Results Summary Purpose eClinicalWorks Submission
--- OUTSIDE RECORDS SUMMARY | 2019-11-19 16:15 | XMS REPORT ---
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 Problem Other specified hypothyroidism E03.8 Active Problem Gastro-esophageal reflux disease K21.9 Active without esophagitis Problem Chronic obstructive pulmonary J44.9 Active disease, unspecified Problem Anxiety disorder, unspecified F41.9 Active Problem Major depressive disorder, single F32.9 Active episode, unspecified Problem Morbid (severe) obesity due to E66.01 Active excess calories Problem OA (osteoarthritis) M19.90 Active Problem Adjustment disorder with depressed F43.21 Active mood Problem Obesity, unspecified obesity E66.9 Active severity, unspecified obesity type Problem Morbid obesity due to excess E66.01 Active calories Problem Stress incontinence in female N39.3 Active Problem Hypothyroidism, unspecified E03.9 Active Problem Other specified diabetes mellitus E13.9 Active without complications Problem Neuropathy G62.9 Active Problem Essential (primary) hypertension I10 Active Problem Chronic obstructive pulmonary J44.9 Active disease, unspecified COPD type Problem Anxiety F41.9 Active Problem Constipation, unspecified K59.00 Ac tive Problem Chronic constipation K59.00 Active Assessment Coronary artery disease involving I25.10 Active [place] coronary artery of [place] heart without angina pectoris Assessment Osteopenia of spine M85.88 Active Assessment Vitamin D deficiency, unspecified E55.9 Active Assessment Morbid (severe) obesity due to E66.01 Active excess calories Assessment Type 2 diabetes mellitus without E11.9 Active complications Assessment Other specified hypothyroidism E03.8 Active Assessment Slow transit constipation K59.01 Ac tive Problem Mixed incontinence urge and stress N39.46 Active Assessment Simple chronic bronchitis J41.0 Ac tive Problem Age-related osteoporosis without M81.0 Active current pathological fracture Problem Simple chronic bronchitis J41.0 Ac tive Problem Vitamin D deficiency, unspecified E55.9 Active Problem Venous insufficiency I87.2 Active Problem Coronary artery disease involving I25.10 Active [place] coronary artery of [place] heart without angina pectoris Problem Other chronic pain G89.29 Active Problem Slow transit constipation K59.01 Ac tive Problem Morbid obesity E66.01 Active Problem Chronic idiopathic constipation K59.04 Active Problem Type II or unspecified type diabetes E11.9 Active mellitus without mention of complication, not stated as uncontrolled Problem Pure hypercholesterolemia, E78.00 A ctive unspecified Problem Female stress incontinence N39.3 A ctive Problem Allergic rhinitis due to pollen J30.1 Active Assessment Major depressive disorder, single F32.9 Active episode, unspecified Problem Familial hypercholesterolemia E78.01 Active Assessment Anxiety F41.9 Active Problem Benign essential hypertension I10 Active Problem Depressive disorder, not elsewhere F32.9 Active classified Problem Hypothyroidism E03.9 Active Problem Vitamin D deficiency E55.9 Active Problem Esophageal reflux K21.9 Active Problem Mixed hyperlipidemia E78.2 Active Medications Medication Code Code Instructions Start End Status Dosage System Date Date Marycarmen BD ultra NDC 0 4mm x 32g Active as fine pen needles intradermally d irected three times a day (tid) Vitamin B-12 ND 38508391832 1000 MCG by Active 1 t ablet mouth Once a day Vitamin D ND 56196161560 2000 UNIT Orally Active 5 tablets Once a day Acidophilus ND 47690761295 - Orally Active not defined Allergy Relief ND 31602345709 25 MG Orally Active 1 tablet every 8 hrs as needed Folic Acid ND 69622591442 800 MCG Orally Active 1 tablet Once a day Levaquin ND 73321796829 500 mg Orally May 03, Active 1 tab let Once a day 2016 Trulicity [facility] 57439285956 0.75mg/0.5ml sq Jan 31, Active on ce a every 2 wks 2016 week as directed Macrobid [facility] 36049523462 100 MG Orally Jun 01, Active 1 cap yeimy twice a day 2015 with food (bid) Neurontin ND 62868973455 600 MG Orally November 03, Active 1 ta blet Three times a 2014 day Levothyroxine ND 91671444198 125MCG orally Active 1 tablet Sodium daily Fosfree ND 16207057169 - Orally Active not defined One Touch ND 0 as directed bid Active use Glucometer with test strips and lancets Pen [place] [facility] 24773977547 31G X 8 MM SQ Aug 16, Active as 11/14" twice a day 2016 directed (bid) Pravastatin [facility] [address]-44 20 mg Orally Active 1 tablet Sodium once every night Bactrim DS [facility] 41934132968 800-160 MG Jan 31, Active 1 tabl et Orally Twice a 2016 day Multi-betic [facility] 62850599835 - Orally Active not Diabetes defined Niacin [facility] 61394243965 250 MG Orally Active 1 tabl et Once a day Linzess ND 78208995692 145 MCG Orally Active 1 cap yeimy Once a day Cinnamon ND 80474264711 500 MG Orally Active not defined Flintstones Plus [facility] 69280855519 Multivitamin Active 1 tablet Iron Orally Once a day Adipex-P [facility] 50293333690 37.5 MG Orally Jun 04, Active 1 ta blet Once a day 2014 Calcium + D [facility] 60367378059 600-200 MG-UNIT Active 2 tablet Orally twice a with food day (bid) Levemir Flexpen [facility] 36363760150 100 UNIT/ML Active 35 units Subcutaneous twice a day (bid) Victoza ND 71353130734 6MG/ML SQ daily Active 1.8 mg Fosamax [facility] 99030395414 70 MG Orally Active 1 table t weekly Cayenne [facility] 03458645325 450 MG Orally Active not defined Viibryd [facility] 14917343512 20 mg Orally May 03, Active 1 table t Once a day 2016 with food Fish Oil [facility] 63183258788 1000 MG Orally Active 1 ca psule Once a day Osteo Bi-Flex [facility] 81369171744 - Orally Active not Triple Strength defined BuPROPion HCl ND 22512181343 75 MG Orally August Active 1 tablet daily 2016 Sanctura ND 0 20 mg by mouth Jul 16, Active 1 tablet Once a day 2013 Benadryl Allergy ND 26535725870 25 MG Orally Active 1 tablet once every night as need ed Naproxen ND 75867354389 500MG Orally Active 1 tabl et twice a day (bid) Ultram [facility] 40812832147 50 mg Orally November 03, Active 1 table t twice a day 2014 as needed (bid) BD Pen NDC 0 31.156 SQ three December Active as times a day 10, directed (tid) 2013 CoQ-10 [facility] 13983058681 30 MG Orally Active 1 capsu le Once a day with a meal Potassimin ND 70159798335 75 MG Orally Active 1 ta blet Once a day Macrobid ND 53875617248 100 MG Orally Jan 31, Active 1 cap yeimy every 12 hrs 2016 with food Darifenacin ND 99887975172 15 MG Orally Active 2 t ablet Hydrobromide ER Once a day with liquid Macrobid [facility] 06834008198 100 mg Orally Apr 26, Active 1 cap yeimy twice a day 2016 with food (bid) Acyclovir ND 04975365571 400 MG Orally November 03, Active 1 ta blet Three times a 2014 day Clopidogrel ND 62216171308 75 MG Orally Active 1 t ablet Bisulfate Once a day Vimovo [facility] 17447199088 500-20 MG Orally Sept Active 1 t ablet Twice a day , before 2015 meals Symbicort [facility] 50515547028 80-4.5 MCG/ACT Jul 24, Active 2 p uffs Inhalation Twice 2014 a day Prolia [facility] 71163891882 60 MG/ML Feb 14, Active as Subcutaneous 2016 directed every 6 months VESIcare [facility] 22125268889 10 MG Orally Jun 01, Active 1 tabl et Once a day 2015 Xanax ND 27676710857 0.5 MG PO four Active 1 tab let times a day (qid) Viibryd [facility] 70637809726 40MG Orally Active 1 tablet daily Diabetes Support [facility] 11427308453 THERAPY PACK Active not Orally defined Rake 3 ND 81507450056 1000 MG Orally Active 1 cap yeimy Once a day Omeprazole ND 66562865676 20MG by mouth November Active 1 t ablet once a day 2015 Edarbi [facility] 97169925142 40 mg Orally Sept Active 1 table t twice a day , (bid) 2015 Viibryd [facility] 15217121528 10 mg Orally May 03, Active 1 table t Once a day 2017 with food Zostavax [facility] 33772737211 07184 UNT/0.65ML May 11, Active as Subcutaneous one 2016 directe d time Tumeric NDC 0 Active not defined [place] [facility] 03727889049 5-325 MG Orally September Active 1 ta blet three times a 20, as needed day (tid) 2014 Vital Signs Date/Time: Jul 05, 2017 BMI 45.93 Index Weight 267.6 lbs Height 64 in Temperature 98.7 F Cardiac Monitoring Heart Rate 73 /min Blood Pressure Diastolic 80 mm Hg Blood Pressure Systolic 142 mm Hg Results No Known Results Summary Purpose [employer] Submission
--- OUTSIDE RECORDS SUMMARY | 2019-11-19 16:16 | XMS REPORT ---
:1955 Author Organization [employer] Care Team Providers Name Role Phone JesusTejah Provider Role Unavailable Allergies, Adverse Reactions, Alerts Substance Reaction Event Type sulfa Info Not Available Drug Allergy Bactrim Info Not Available Drug Allergy Problems Problem Type Condition Code Onset Dates Condition Statu s Problem Anxiety disorder, unspecified F41.9 Active Problem Chronic obstructive pulmonary J44.9 Active disease, unspecified Problem Morbid (severe) obesity due to E66.01 Active excess calories Problem Major depressive disorder, single F32.9 Active episode, unspecified Problem Other specified hypothyroidism E03.8 Active Problem Adjustment disorder with depressed F43.21 Active mood Problem OA (osteoarthritis) M19.90 Active Problem Stress incontinence in female N39.3 Active Problem Morbid obesity due to excess E66.01 Active calories Problem Obesity, unspecified obesity E66.9 Active severity, unspecified obesity type Problem Neuropathy G62.9 Active Problem Other specified diabetes mellitus E13.9 Active without complications Problem Hypothyroidism, unspecified E03.9 Active Problem Essential (primary) hypertension I10 Active Problem Age-related osteoporosis without M81.0 Active current pathological fracture Problem Chronic constipation K59.00 Active Problem Constipation, unspecified K59.00 Ac tive Problem Chronic obstructive pulmonary J44.9 Active disease, unspecified COPD type Problem Simple chronic bronchitis J41.0 Ac tive Problem Venous insufficiency I87.2 Active Problem Anxiety F41.9 Active Problem Mixed incontinence urge and stress N39.46 Active Assessment Drug-induced constipation K59.03 Ac tive Assessment Other specified diabetes mellitus E13.9 Active without complications Assessment Morbid (severe) obesity due to E66.01 Active excess calories Assessment Vitamin D deficiency, unspecified E55.9 Active Assessment Familial hypercholesterolemia E78.01 Active Assessment Essential (primary) hypertension I10 Active Assessment Urge incontinence of urine N39.41 A ctive Assessment Osteopenia of lumbar spine M85.88 A ctive Assessment Major depressive disorder, single F32.9 Active episode, unspecified Assessment Anxiety F41.9 Active Assessment Colon cancer screening Z12.11 Activ e Assessment Hand, foot and mouth disease B08.4 Active Problem Female stress incontinence N39.3 A ctive Problem Type II or unspecified type diabetes E11.9 Active mellitus without mention of complication, not stated as uncontrolled Problem Vitamin D deficiency, unspecified E55.9 Active Assessment Other specified hypothyroidism E03.8 Active Problem Pure hypercholesterolemia, E78.00 A ctive unspecified Problem Chronic idiopathic constipation K59.04 Active Problem Allergic rhinitis due to pollen J30.1 Active Problem Familial hypercholesterolemia E78.01 Active Problem PAD (peripheral artery disease) I73.9 Active Problem Acquired hypothyroidism E03.9 Acti ve Problem Urge incontinence of urine N39.41 A ctive Problem Hypothyroidism E03.9 Active Problem Coronary artery disease involving I25.10 Active [place] coronary artery of [place] heart without angina pectoris Problem Mixed hyperlipidemia E78.2 Active Problem Other chronic pain G89.29 Active Problem Esophageal reflux K21.9 Active Problem Urge incontinence N39.41 Active Problem Morbid obesity E66.01 Active Problem Slow transit constipation K59.01 Ac tive Problem Benign essential hypertension I10 Active Problem Polyosteoarthritis, 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 Problem Gastro-esophageal reflux disease K21.9 Active without esophagitis Problem Ischemic heart disease I25.9 Activ e Problem Type 2 diabetes mellitus without E11.9 Active complications Problem Vitamin D deficiency E55.9 Active Problem Depressive disorder, not elsewhere F32.9 Active classified Medications Medication Code Code Instructions Start End Status Dosage System Date Date Vitamin D [facility] 80207137101 2000 UNIT Orally Active 5 tablets Once a day Ultram [facility] 41210576836 50 mg Orally November 03, Active 1 table t twice a day 2014 as needed (bid) Marycarmen BD ultra NDC 0 4mm x 32g Active as fine pen needles intradermally d irected three times a day (tid) Viibryd ND 29338508064 10 mg Orally May 03, Active 1 table t Once a day 2016 with food Multi-betic ND 85671350699 - Orally Active not Diabetes defined Osteo Bi-Flex ND 55355985960 - Orally Active not Triple Strength defined Trulicity ND 09161616634 0.75mg/0.5ml sq Jan 31, Active on ce a every 2 wks 2016 week as directed Levaquin ND 92548131831 500 mg Orally May 03, Active 1 tab let Once a day 2016 BuPROPion HCl ND 32265462596 75 MG Orally August Active 1 tablet daily 2016 Victoza ND 11616671160 6MG/ML SQ daily Active 1.8 mg Levemir Flexpen ND 91007690938 100 UNIT/ML Active 35 units Subcutaneous twice a day (bid) Tumeric NDC 0 Active not defined Myrbetriq ND 63311888871 50 mg Orally Aug 17, Active 1 tab let Once a day 2017 Benadryl Allergy ND 49359997249 25 MG Orally Active 1 tablet once every night as need ed Zostavax [facility] 85163089877 73170 UNT/0.65ML May 11, Active as Subcutaneous one 2016 directe d time AZO Bladder [facility] 40467406664 - Orally Active not Control/Go-Less defined Omeprazole [facility] 57208160070 20MG by mouth December 07, Active 1 tablet once a day 2015 Xanax [facility] 96870609557 0.5 MG PO four Active 1 tab let times a day (qid) Niacin [facility] 72535718188 250 MG Orally Active 1 tabl et Once a day Clopidogrel ND 49084238069 75 MG Orally Active 1 t ablet Bisulfate Once a day Folic Acid ND 36315717917 800 MCG Orally Active 1 tablet Once a day Fish Oil ND 87413701194 1000 MG Orally Active 1 ca psule Once a day Fosfree [facility] 23608912630 - Orally Active not defined Viibryd [facility] 92094901662 40MG Orally Active 1 tablet daily VESIcare [facility] 98953716105 10 MG Orally Jun 01, Active 1 tabl et Once a day 2015 Pen Aspen [facility] 03107544406 31G X 8 MM SQ Aug 16, Active as 16" twice a day 2016 directed (bid) Diabetes Support [facility] 23697530627 THERAPY PACK Active not Orally defined Neurontin ND 82374748481 600 MG Orally November 03, Active 1 ta blet Three times a 2014 day Macrobid [facility] 91768966613 100 MG Orally Jun 01, Active 1 cap yeimy twice a day 2016 with food (bid) Acidophilus ND 60832410407 - Orally Active not defined Viibryd [facility] 58584857052 20 mg Orally May 03, Active 1 table t Once a day 2016 with food CoQ-10 ND 27993344210 30 MG Orally Active 1 capsu le Once a day with a meal [employer] Thyroid ND 03472032607 120 MG Orally August Active 1 t ablet Once a day 2017 on an empty stomach Macrobid ND 97150256437 100 MG Orally Jan 31, Active 1 cap yeimy every 12 hrs 2016 with food Acyclovir NDC 53086411405 400 MG Orally November 03, Active 1 ta blet Three times a 2014 day [place] 3 ND 91723839458 1000 MG Orally Active 1 cap yeimy Once a day Calcium + D ND 93116704659 600-200 MG-UNIT Active 2 tablet Orally twice a with food day (bid) Sanctura NDC 0 20 mg by mouth Jul 16, Active 1 tablet Once a day 2013 BD Pen NDC 0 31.156 SQ three January 08, Active as times a day 2013 directed (tid) Potassimin ND 84591971380 75 MG Orally Active 1 ta blet Once a day Flintstones Plus ND 17491209744 Multivitamin Active 1 tablet Iron Orally Once a day One Touch NDC 0 as directed bid Active use Glucometer with test strips and lancets Allergy Relief ND 16538597572 25 MG Orally Active 1 tablet every 8 hrs as needed Lisinopril ND 25160315379 20 mg Orally August Active 1 ta blet twice a day 2017 (bid) Vitamin B-12 ND 33180018484 1000 MCG by Active 1 t ablet mouth Once a day Bactrim DS ND 17290098058 800-160 MG Jan 31, Active 1 tabl et Orally Twice a 2016 day Vimovo ND 70077901264 500-20 MG Orally Mar 21, Active 1 tablet Twice a day 2015 before meals Darifenacin ND 19434081476 15 MG Orally Active 2 t ablet Hydrobromide ER Once a day with liquid [place] ND 46429662362 450 MG Orally Active not defined Naproxen ND 45600389249 500MG Orally Active 1 tabl et twice a day (bid) Linzess ND 27755287625 145 MCG Orally Active 1 cap yeimy Once a day Adipex-P ND 45567144444 37.5 MG Orally Jun 04, Active 1 ta blet Once a day 2014 Prolia [facility] 88584735724 60 MG/ML Feb 14, Active as Subcutaneous 2017 directed every 6 months Cinnamon ND 61268103770 500 MG Orally Active not defined Fosamax ND 48372075279 70 MG Orally Active 1 table t weekly Aspir-81 [facility] 78305129419 81 MG Orally Active 1 tabl et Once a day Macrobid [facility] 21031794186 100 mg Orally Apr 26, Active 1 cap yeimy twice a day 2016 with food (bid) Symbicort [facility] 39957122823 80-4.5 MCG/ACT Jul 24, Active 2 p uffs Inhalation Twice 2014 a day Pravastatin [facility] 58125031302 20 mg Orally Active 1 t ablet Sodium once every night Levothyroxine [facility] 85500422204 125MCG orally Active 1 tablet Sodium daily [place] [facility] 96151316441 5-325 MG Orally September Active 1 ta blet three times a 2014 as needed day (tid) Vital Signs Date/Time: September 24, 2017 BMI 45.14 Index Weight 263 lbs Height 64 in Temperature 98.9 F Cardiac Monitoring Heart Rate 76 /min Blood Pressure Diastolic 56 mm Hg Blood Pressure Systolic 135 mm Hg Results Name Result Date Reference Range Unit Abnormali ty Flag Dexamethasone 1/2cc Summary Purpose [employer]ClinicalWorks Submission
--- OUTSIDE RECORDS SUMMARY | 2019-11-19 16:17 | XMS REPORT ---
[...] to E66.01 Active excess calories Problem Mixed incontinence urge and stress N39.46 Active Problem OA (osteoarthritis) M19.90 Active Problem Age-related osteoporosis without M81.0 Active current pathological fracture Problem Adjustment disorder with depressed F43.21 Active mood Problem Simple chronic bronchitis J41.0 Ac tive Problem Vitamin D deficiency, unspecified E55.9 Active Problem Venous insufficiency I87.2 Active Problem Coronary artery disease involving I25.10 Active [place] coronary artery of [place] heart without angina pectoris Problem Other chronic pain G89.29 Active Problem Obesity, unspecified obesity E66.9 Active severity, unspecified obesity type Problem Morbid obesity due to excess E66.01 Active calories Problem Morbid obesity E66.01 Active Problem Slow transit constipation K59.01 Ac tive Problem Stress incontinence in female N39.3 Active Problem Type II or unspecified type diabetes E11.9 Active mellitus without mention of complication, not stated as uncontrolled Problem Chronic idiopathic constipation K59.04 Active Problem Female stress incontinence N39.3 A ctive Problem Pure hypercholesterolemia, E78.00 A ctive unspecified Assessment Anxiety F41.9 Active Problem Allergic rhinitis due to pollen J30.1 Active Problem Familial hypercholesterolemia E78.01 Active Problem Benign essential hypertension I10 Active Problem Hypothyroidism, unspecified E03.9 Active Problem Depressive disorder, not elsewhere F32.9 Active classified Problem Other specified diabetes mellitus E13.9 Active without complications Problem Hypothyroidism E03.9 Active Problem Neuropathy G62.9 Active Problem Vitamin D deficiency E55.9 Active Problem Essential (primary) hypertension I10 Active Problem Esophageal reflux K21.9 Active Problem Chronic obstructive pulmonary J44.9 Active disease, unspecified COPD type Problem Mixed hyperlipidemia E78.2 Active Problem Anxiety F41.9 Active Problem Constipation, unspecified K59.00 Ac tive Problem Chronic constipation K59.00 Active Medications Medication Code Code Instructions Start End Status Dosage System Date Date Macrobid [facility] 91389562711 100 MG Orally Jan 31, Active 1 cap yeimy every 12 hrs 2016 with food Ultram [facility] 21462469954 50 mg Orally November 03, Active 1 table t twice a day 2014 as needed (bid) Neurontin ND 31919695773 600 MG Orally November 03, Active 1 ta blet Three times a 2014 day Niacin [facility] 07163447298 250 MG Orally Active 1 tabl et Once a day Macrobid [facility] 37089516143 100 mg Orally Apr 26, Active 1 cap yeimy twice a day 2016 with food (bid) Vitamin D [facility] 07939513724 2000 UNIT Orally Active 5 tablets Once a day Viibryd [facility] 67226440069 20 mg Orally May 03, Active 1 table t Once a day 2016 with food Fosfree [facility] 67068744331 - Orally Active not defined Victoza [facility] 97689788350 6MG/ML SQ daily Active 1.8 mg BuPROPion HCl [facility] 83177783482 75 MG Orally August Active 1 tablet daily 2016 One Touch ND 0 as directed bid Active use Glucometer with test strips and lancets Levothyroxine [facility] 37142508541 125MCG orally Active 1 tablet Sodium daily Acidophilus [facility] 55866256077 - Orally Active not defined Vimovo [facility] 55876836940 500-20 MG Orally Sept Active 1 t ablet Twice a day , before 2015 meals Levemir Flexpen [facility] 61401000673 100 UNIT/ML Active 35 units Subcutaneous twice a day (bid) Cayenne [facility] 16752914888 450 MG Orally Active not defined Levaquin [facility] 68454469842 500 mg Orally May 03, Active 1 tab let Once a day 2016 Fosamax [facility] 38334369454 70 MG Orally Active 1 table t weekly Allergy Relief [facility] 70243712933 25 MG Orally Active 1 tablet every 8 hrs as needed Tumeric NDC 0 Active not defined Acyclovir ND 60271775723 400 MG Orally November 03, Active 1 ta blet Three times a 2014 day VESIcare NDC 62450414267 10 MG Orally Jun 01, Active 1 tabl et Once a day 2015 Viibryd ND 06770619973 40MG Orally Active 1 tablet daily Marycarmen BD ultra NDC 0 4mm x 32g Active as fine pen needles intradermally d irected three times a day (tid) Naproxen ND 62888783616 500MG Orally Active 1 tabl et twice a day (bid) Macrobid ND 37565829186 100 MG Orally Jun 01, Active 1 cap yeimy twice a day 2015 with food (bid) Trulicity ND 60766716254 0.75mg/0.5ml sq Jan 31, Active on ce a every 2 wks 2016 week as directed Benadryl Allergy ND 14983270952 25 MG Orally Active 1 tablet once every night as need ed Fish Oil ND 38897706409 1000 MG Orally Active 1 ca psule Once a day Clopidogrel NDC 80041908838 75 MG Orally Active 1 t ablet Bisulfate Once a day Darifenacin ND 30428019653 15 MG Orally Active 2 t ablet Hydrobromide ER Once a day with liquid BD Pen NDC 0 31.156 SQ december Active as times a day 10, directed (tid) 2013 Zostavax ND 49327614373 55822 UNT/0.65ML May 11, Active as Subcutaneous one 2016 directe d time Potassimin ND 51718866094 75 MG Orally Active 1 ta blet Once a day [place] NDC 0 20 mg by mouth Jul 16, Active 1 tablet Once a day 2013 Vitamin B-12 ND 01204603632 1000 MCG by Active 1 t ablet mouth Once a day [place] ND 38956983768 5-325 MG Orally September Active 1 ta blet three times a 20, as needed day (tid) 2014 CoQ-10 ND 91353481650 30 MG Orally Active 1 capsu le Once a day with a meal Omeprazole NDC 33239343593 20MG by mouth November Active 1 t ablet once a day 2015 Cinnamon ND 50561681517 500 MG Orally Active not defined Viibryd ND 69775422390 10 mg Orally May 03, Active 1 table t Once a day 2016 with food Xanax ND 60217886881 0.5 MG PO four Active 1 tab let times a day (qid) Bactrim DS ND 74535368296 800-160 MG Jan 31, Active 1 tabl et Orally Twice a 2016 day Pen [place] ND 80396714688 31G X 8 MM SQ Aug 16, Active as 11/14" twice a day 2016 directed (bid) Diabetes Support [facility] 96214582040 THERAPY PACK Active not Orally defined Osteo Bi-Flex ND 49714529388 - Orally Active not Triple Strength defined Adipex-P [facility] 86166191503 37.5 MG Orally Jun 04, Active 1 ta blet Once a day 2014 Multi-betic ND 57495452561 - Orally Active not Diabetes defined Calcium + D [facility] 05814648248 600-200 MG-UNIT Active 2 tablet Orally twice a with food day (bid) Prolia [facility] 72658870452 60 MG/ML Feb 14, Active as Subcutaneous 2016 directed every 6 months [place] ND 60568758401 40 mg Orally Sept Active 1 table t twice a day , (bid) 2015 Folic Acid [facility] 22002152372 800 MCG Orally Active 1 tablet Once a day Pravastatin [facility] [address]-44 20 mg Orally Active 1 tablet Sodium once every night Linzess [facility] 11220660827 145 MCG Orally Active 1 cap yeimy Once a day [place] 3 ND 98641497737 1000 MG Orally Active 1 cap yeimy Once a day Symbicort [facility] 47042401772 80-4.5 MCG/ACT Jul 24, Active 2 p uffs Inhalation Twice 2014 a day Flintstones Plus [facility] 40878760943 Multivitamin Active 1 tablet Iron Orally Once a day Results No Known Results Summary Purpose eClinicalWorks Submission
--- OUTSIDE RECORDS SUMMARY | 2019-11-19 16:17 | XMS REPORT ---
:1955 Author Organization [employer] Care Team Providers Name Role Phone JesusTejah Provider Role Unavailable Allergies, Adverse Reactions, Alerts Substance Reaction Event Type sulfa Info Not Available Drug Allergy Bactrim Info Not Available Drug Allergy Problems Problem Type Condition Code Onset Dates Condition Statu s Problem Major depressive disorder, single F32.9 Active episode, unspecified Problem Anxiety disorder, unspecified F41.9 Active Problem Other specified hypothyroidism E03.8 Active Problem Morbid (severe) obesity due to E66.01 Active excess calories Problem Adjustment disorder with depressed F43.21 Active mood Problem OA (osteoarthritis) M19.90 Active Problem Stress incontinence in female N39.3 Active Problem Morbid obesity due to excess E66.01 Active calories Problem Obesity, unspecified obesity E66.9 Active severity, unspecified obesity type Problem Neuropathy G62.9 Active Problem Essential (primary) hypertension I10 Active Assessment 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 Assessment Vitamin D deficiency, unspecified E55.9 Active Assessment Osteopenia of lumbar spine M85.88 A ctive Problem Constipation, unspecified K59.00 Ac tive Problem Other specified diabetes mellitus E13.9 Active without complications Problem Hypothyroidism, unspecified E03.9 Active Problem Chronic constipation K59.00 Active Problem Anxiety F41.9 Active Problem Age-related osteoporosis without M81.0 Active current pathological fracture Problem Chronic obstructive pulmonary J44.9 Active disease, unspecified COPD type Problem Venous insufficiency I87.2 Active Problem Vitamin D deficiency, unspecified E55.9 Active Problem Mixed incontinence urge and stress N39.46 Active Problem Simple chronic bronchitis J41.0 Ac tive Assessment Morbid (severe) obesity due to E66.01 Active excess calories Assessment Essential (primary) hypertension I10 Active Assessment Familial hypercholesterolemia E78.01 Active Assessment Other specified hypothyroidism E03.8 Active Assessment Suicide attempt T14.91XA Active Assessment Aspiration pneumonia due to vomit, J69.0 Active unspecified laterality, unspecified part of lung Assessment Adjustment insomnia F51.02 Active Assessment Anxiety F41.9 Active Assessment Gastroesophageal reflux disease K21.9 Active without esophagitis Assessment Other constipation K59.09 Active Assessment Type 2 diabetes mellitus without E11.9 Active complications Problem Type II or unspecified type E11.9 Active diabetes mellitus without mention of complication, not stated as uncontrolled Problem Female stress incontinence N39.3 A ctive Problem Benign essential hypertension I10 Active Problem Pure hypercholesterolemia, E78.00 A ctive unspecified Assessment Dysuria R30.0 Active Problem Chronic idiopathic constipation K59.04 Active Problem Familial hypercholesterolemia E78.01 Active Problem Other chronic pain G89.29 Active Problem Allergic rhinitis due to pollen J30.1 Active Problem Urge incontinence of urine N39.41 A ctive Problem PAD (peripheral artery disease) I73.9 Active Problem Gastroesophageal reflux disease K21.9 Active without esophagitis Problem Vitamin D deficiency E55.9 Active Problem Slow transit constipation K59.01 Ac tive Problem Hypothyroidism E03.9 Active Problem Coronary artery disease involving I25.10 Active [place] coronary artery of [place] heart without angina pectoris Problem Mixed hyperlipidemia E78.2 Active Problem Acquired hypothyroidism E03.9 Acti ve Problem Esophageal reflux K21.9 Active Problem Urge incontinence N39.41 Active Problem Morbid obesity E66.01 Active Problem Gastro-esophageal reflux disease K21.9 Active without esophagitis Problem Chronic obstructive pulmonary J44.9 Active disease, unspecified Problem Type 2 diabetes mellitus without E11.9 Active complications Problem Polyosteoarthritis, 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 Problem Depressive disorder, not elsewhere F32.9 Active classified Problem Ischemic heart disease I25.9 Activ e Medications Medication Code Code Instructions Start End Status Dosage System Date Date Neurontin [facility] 01139706293 600 MG Orally November 03, Active 1 ta blet Three times a 2014 day Lisinopril [facility] 24702354250 20 mg Orally Active 1 ta blet twice a day (bid) Potassimin [facility] 11645229196 75 MG Orally Active 1 ta blet Once a day Multi-betic [facility] 10634790378 - Orally Active not Diabetes defined Niacin [facility] 26039939331 250 MG Orally Active 1 tabl et Once a day Macrobid [facility] 76363079747 100 mg Orally Apr 26, Active 1 cap yeimy twice a day 2016 with food (bid) Viibryd [facility] 55866613857 20 mg Orally May 03, Active 1 table t Once a day 2016 with food AZO Bladder ND 80039030756 - Orally Active not Control/Go-Less defined VESIcare ND 20997621950 10 MG Orally Jun 01, Active 1 tabl et Once a day 2015 Adipex-P ND 66885952452 37.5 MG Orally Jun 04, Active 1 ta blet Once a day 2014 Diabetes Support [facility] 34446813180 THERAPY PACK Active not Orally defined Levothyroxine ND 27272266519 125MCG orally Active 1 tablet Sodium daily Darifenacin ND 06988071295 15 MG Orally Active 2 t ablet Hydrobromide ER Once a day with liquid Fosfree ND 70831759115 - Orally Active not defined Cymbalta ND 38054288320 20 mg Orally Active 1 caps ule Once a day Aspir-81 ND 64422584681 81 MG Orally Active 1 tabl et Once a day Macrobid [facility] 44600402390 100 MG Orally Jan 31, Active 1 cap yeimy every 12 hrs 2016 with food Tumeric NDC 0 Active not defined [place] 3 ND 27962939098 1000 MG Orally Active 1 cap yeimy Once a day Bactrim DS ND 40895945344 800-160 MG Jan 31, Active 1 tabl et Orally Twice a 2016 day Acidophilus ND 48799860023 - Orally Active not defined [place]ura NDC 0 20 mg by mouth Jul 16, Active 1 tablet Once a day 2013 [facility] [employer] Thyroid ND 26978817820 120 MG Orally August Active 1.5 tablet Once a day 12, on an 2017 empty stomach Vitamin D ND 62587678212 2000 UNIT Orally Active 5 tablets Once a day Linzess ND 08141499121 72 mcg orally November 21, Active 1 caps ule Daily 2017 Flintstones Plus ND 38812952593 Multivitamin Active 1 tablet Iron Orally Once a day Fosamax ND 89683567856 70 MG Orally Active 1 table t weekly Viibryd ND 57654629513 40MG Orally Active 1 tablet daily CoQ-10 ND 71779712621 30 MG Orally Active 1 capsu le Once a day with a meal Calcium + D ND 68176370942 600-200 MG-UNIT Active 2 tablet Orally twice a with food day (bid) Osteo Bi-Flex [facility] 70449362221 - Orally Active not Triple Strength defined Pentazocine-Nalo [facility] 01750325142 50-0.5 MG Oral Acti ve not xone HCl defined BD Pen NDC 0 31.156 SQ three December Active as times a day 10, directed (tid) 2013 Symbicort [facility] 45830410193 80-4.5 MCG/ACT Jul 24, Active 2 p uffs Inhalation Twice 2014 a day Naproxen [facility] 06575582149 500MG Orally Active 1 tabl et twice a day (bid) Omeprazole ND 43166574440 20MG by mouth November Active 1 t ablet once a day 2015 Myrbetriq [facility] 00218417661 50 mg Orally Aug 17, Active 1 tab let Once a day 2017 Acyclovir ND 99547479762 400 MG Orally November 03, Active 1 ta blet Three times a 2014 day Levemir Flexpen [facility] 63773500089 100 UNIT/ML Inactive 35 units Subcutaneous twice a day (bid) Xanax [facility] 44999040265 0.5 MG PO four Inactive 1 ta blet times a day (qid) Ultram [facility] 05618697728 50 mg Orally November 03, Active 1 table t twice a day 2014 as needed (bid) Restoril ND 14429458982 15 MG Orally November 21, Active 1 caps ule Once a day 2017 at bedtime as needed Marycarmen BD ultra ND 0 4mm x 32g Active as fine pen needles intradermally d irected three times a day (tid) Cayenne [facility] 81825174032 450 MG Orally Active not defined Zostavax [facility] 33996948009 38785 UNT/0.65ML May 11, Active as Subcutaneous one 2016 directe d time Levaquin [facility] 07638734580 750 MG Orally November 21October Active 1 tab let Once a day 2017 Macrobid [facility] 35827163748 100 MG Orally Jun 01, Active 1 cap yeimy twice a day 2015 with food (bid) Benadryl Allergy [facility] 00987926804 25 MG Orally Active 1 tablet once every night as need ed Victoza [facility] 51842906953 6MG/ML SQ daily Active 1.8 mg Prolia [facility] 33348658825 60 MG/ML Feb 14, Active as Subcutaneous 2017 directed every 6 months [place] [facility] 89469577570 5-325 MG Orally September Active 1 ta blet three times a 20, as needed day (tid) 2014 Allergy Relief [facility] 54364490778 25 MG Orally Active 1 tablet every 8 hrs as needed Fish Oil [facility] 26945070003 1000 MG Orally Active 1 ca psule Once a day BuPROPion HCl ND 55243730088 75 MG Orally August Active 1 tablet daily 2016 Cinnamon [facility] 68845839220 500 MG Orally Active not defined One Touch ND 0 as directed bid Active use Glucometer with test strips and lancets Linzess [facility] 88460992341 145 MCG Orally Active 1 cap yeimy Once a day Viibryd [facility] 34019224796 10 mg Orally Active 1 table t Once a day with food Pravastatin [facility] 64568885210 20 mg Orally Active 1 t ablet Sodium once every night Vimovo [facility] 03199546255 500-20 MG Orally Sept Active 1 t ablet Twice a day , before 2015 meals Clopidogrel [facility] 59268209294 75 MG Orally Active 1 t ablet Bisulfate Once a day Trulicity [facility] 05918922413 0.75mg/0.5ml sq Jan 31, Active on ce a every 2 wks 2016 week as directed Pen [place] [facility] 17184879202 31G X 8 MM SQ Aug 16, Active as 11/14" twice a day 2016 directed (bid) Vitamin B-12 [facility] 68171003122 1000 MCG by Active 1 t ablet mouth Once a day Vital Signs Date/Time: November 21, 2017 BMI 42.56 Index Weight 248 lbs Height 64 in Temperature 99.3 F Cardiac Monitoring Heart Rate 81 /min Blood Pressure Diastolic 89 mm Hg Blood Pressure Systolic 139 mm Hg Results Name Result Date Reference Range Unit Abnormali ty Flag Finger Stick (Glucose) ----Glucose Level 112 [id number] Urinalysis (Urine Dipstick) ----Bili neg [id number] ----Glucose neg [id number] ----Urobilinogen 0.2 20171121 ----Ketones neg [id number] ----Spec [place] 1.010 20171121 ----pH 7 [id number] ----Turbidity clear [id number] ----Protein neg [id number] ----Blood neg [id number] ----Leuk Est neg [id number] ----Nitrite neg [id number] ----Color yellow [id number] Summary Purpose eClinicalWorks Submission
--- OUTSIDE RECORDS SUMMARY | 2019-11-19 16:17 | XMS REPORT ---
[...] Problem Coronary artery disease involving I25.10 Active [place] coronary artery of [place] heart without angina pectoris Problem Other chronic [...] Pure hypercholesterolemia, E78.00 A ctive unspecified Assessment Essential (primary) hypertension I10 Active Problem Allergic rhinitis due to pollen [...] Start End Status Dosage System Date Date Levaquin ND 61279035228 500 mg Orally May 03, Active 1 tab let Once a day 2016 Marycarmen BD ultra NDC 0 4mm x 32g Active as fine pen needles intradermally d irected three times a day (tid) Niacin ND 26460001654 250 MG Orally Active 1 tabl et Once a day [place] 3 ND 81253535627 1000 MG Orally Active 1 cap yeimy Once a day Benadryl Allergy ND 77945509093 25 MG Orally Active 1 tablet once every night as need ed Ultram [facility] 92758420023 50 mg Orally November 03, Active 1 table t twice a day 2014 as needed (bid) [place] ND 10750260784 5-325 MG Orally September Active 1 ta blet three times a , as needed day (tid) 2014 Fish Oil ND 55779712673 1000 MG Orally Active 1 ca psule Once a day Tumeric NDC 0 Active not defined Multi-betic [facility] 40938803864 - Orally Active not Diabetes defined Xanax ND 72993060959 0.5 MG PO four Active 1 tab let times a day (qid) Flintstones Plus [facility] 72908486758 Multivitamin Active 1 tablet Iron Orally Once a day Levothyroxine ND 85952870977 125MCG orally Active 1 tablet Sodium daily Naproxen ND 16932135802 500MG Orally Active 1 tabl et twice a day (bid) Acyclovir ND 97067672958 400 MG Orally November 03, Active 1 ta blet Three times a 2014 day Clopidogrel ND 35642726452 75 MG Orally Active 1 t ablet Bisulfate Once a day Pen Tarzana [facility] 55350903384 31G X 8 MM SQ Aug 16, Active as 16" twice a day 2016 directed (bid) Edarbi ND 24127212754 40 mg Orally Sept Active 1 table t twice a day , (bid) 2015 Vitamin D ND 01173330625 2000 UNIT Orally Active 5 tablets Once a day Zostavax ND 68224369707 65420 UNT/0.65ML May 11, Active as Subcutaneous one 2016 directe d time Macrobid ND 62045103939 100 MG Orally Jan 31, Active 1 cap yeimy every 12 hrs 2016 with food One Touch NDC 0 as directed bid Active use Glucometer with test strips and lancets Acidophilus ND 52336640453 - Orally Active not defined Levemir Flexpen ND 21501098777 100 UNIT/ML Active 35 units Subcutaneous twice a day (bid) Folic Acid ND 90686676948 800 MCG Orally Active 1 tablet Once a day Osteo Bi-Flex ND 97062050586 - Orally Active not Triple Strength defined Vimovo ND 88621506639 500-20 MG Orally Sept Active 1 t ablet Twice a day , before 2015 meals Adipex-P ND 27244193797 37.5 MG Orally Jun 04, Active 1 ta blet Once a day 2014 Bactrim DS ND 77468082539 800-160 MG Jan 31, Active 1 tabl et Orally Twice a 2016 day Vitamin B-12 ND 07536782744 1000 MCG by Active 1 t ablet mouth Once a day Viibryd ND 58141808430 10 mg Orally May 03, Active 1 table t Once a day 2016 with food Diabetes Support [facility] 36760694944 THERAPY PACK Active not Orally defined VESIcare ND 70706671190 10 MG Orally Jun 01, Active 1 tabl et Once a day 2015 Cinnamon ND 49671177194 500 MG Orally Active not defined Victoza ND 19326608104 6MG/ML SQ daily Active 1.8 mg BuPROPion HCl ND 30429177405 75 MG Orally August Active 1 tablet daily 2016 Darifenacin ND 66945358872 15 MG Orally Active 2 t ablet Hydrobromide ER Once a day with liquid Omeprazole ND 11760954299 20MG by mouth November Active 1 t ablet once a day 2015 Symbicort ND 09493195545 80-4.5 MCG/ACT Jul 24, Active 2 p uffs Inhalation Twice 2014 a day Pravastatin [facility] [address]-78 20 mg Orally Active 1 tablet Sodium once every night BD Pen NDC 0 31.156 SQ december Active as times a day 10, directed (tid) 2013 Neurontin ND 39052877730 600 MG Orally November 03, Active 1 ta blet Three times a 2014 day Trulicity ND 90371199893 0.75mg/0.5ml sq Jan 31, Active on ce a every 2 wks 2017 week as directed Macrobid [facility] 97537154066 100 MG Orally Jun 01, Active 1 cap yeimy twice a day 2015 with food (bid) Macrobid ND 22911103157 100 mg Orally Apr 26, Active 1 cap yeimy twice a day 2016 with food (bid) Linzess ND 58273536249 145 MCG Orally Active 1 cap yeimy Once a day Cayenne [facility] 05007368261 450 MG Orally Active not defined Fosfree [facility] 02146365053 - Orally Active not defined Allergy Relief [facility] 32349303241 25 MG Orally Active 1 tablet every 8 hrs as needed Fosamax ND 42192878874 70 MG Orally Active 1 table t weekly Calcium + D [facility] 43515176163 600-200 MG-UNIT Active 2 tablet Orally twice a with food day (bid) Viibryd [facility] 29205913737 20 mg Orally May 03, Active 1 table t Once a day 2016 with food Potassimin ND 09530781651 75 MG Orally Active 1 ta blet Once a day CoQ-[address] [facility] 78906355342 30 MG Orally Active 1 capsu le Once a day with a meal Viibryd [facility] 10008295559 40MG Orally Active 1 tablet daily Sanctura NDC 0 20 mg by mouth Jul 16, Active 1 tablet Once a day [address] [facility] 69890724618 60 MG/ML Feb 14, Active as Subcutaneous 2016 directed every 6 months Results No Known Results Summary Purpose eClinical[employer] Submission
--- OUTSIDE RECORDS SUMMARY | 2019-11-19 16:18 | XMS REPORT ---
:1955 Author Organization [employer] Care Team Providers Name Role Phone TylermarlenTej cortezah Provider Role Unavailable Allergies No Known Allergies [...] mellitus E13.9 Active without complications Problem Chronic obstructive pulmonary J44.9 Active disease, unspecified COPD type Problem Anxiety F41.9 Active Problem Age-related osteoporosis without M81.0 Active current pathological fracture Problem Chronic constipation K59.00 Active Problem Vitamin D deficiency, unspecified E55.9 Active Problem Chronic idiopathic constipation K59.04 Active Problem Mixed incontinence urge and stress N39.46 Active Problem Venous insufficiency I87.2 Active Problem Familial hypercholesterolemia E78.01 Active Problem Other chronic pain G89.29 Active Problem Pure hypercholesterolemia, E78.00 A ctive unspecified Problem Simple chronic bronchitis J41.0 Ac tive Problem Mixed hyperlipidemia E78.2 Active Problem Hypothyroidism E03.9 Active Assessment Urge incontinence N39.41 Active Problem Morbid obesity E66.01 Active Problem Vitamin D deficiency E55.9 Active Problem Depressive disorder, not elsewhere F32.9 Active classified Problem Benign essential hypertension I10 Active Problem Allergic rhinitis due to pollen J30.1 Active Problem Esophageal reflux K21.9 Active Problem Slow transit constipation K59.01 Ac tive Problem Coronary artery disease involving I25.10 Active [place] coronary artery of [place] heart without angina pectoris Problem Acquired hypothyroidism E03.9 Acti ve Problem Urge incontinence N39.41 Active Problem Memory change R41.3 Active Problem NERY (obstructive sleep apnea) G47.33 Active Problem Bipolar 1 disorder F31.9 Active Problem Chronic obstructive pulmonary J44.9 Active disease, unspecified Problem Urge incontinence of urine N39.41 A ctive Problem Type 2 diabetes mellitus without E11.9 Active complications Problem PAD (peripheral artery disease) I73.9 Active Problem Ischemic heart disease I25.9 Activ e Problem Osteoarthritis of both knees, M17.0 Active unspecified osteoarthritis type Problem Female stress incontinence N39.3 A ctive Problem Gastroesophageal reflux disease K21.9 Active without esophagitis Problem Type II or unspecified type diabetes E11.9 Active mellitus without mention of complication, not stated as uncontrolled Problem Anxiety disorder, unspecified F41.9 Active Problem Polyosteoarthritis, 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 66867545320 500 mg Orally Active 1 t ablet four times a day (qid) AZO Bladder [facility] 97633102628 - Orally Active not Control/Go-Less defined Cinnamon [facility] 81919388996 500 MG Orally Active not defined Symbicort [facility] 74509006979 80-4.5 MCG/ACT Jul 24, Active 2 p uffs Inhalation Twice [address] [facility] [address]-42 - Orally once Active 2 ta blet every night Clopidogrel ND 22517062783 75 mg Orally Active 1 t ablet Bisulfate Once a day Levothyroxine [facility] 80223473977 125MCG orally Active 1 tablet Sodium daily disabled placard ND 0 n/a n/a daily December Active a s 12, directed [address] [facility] 11576299815 50 mg Orally November 03, Active 1 table t twice a day 2014 as needed (bid) [place] [facility] 12528373372 5-325 MG Orally September Active 1 ta blet three times a 20, as needed day (tid) 2014 CoQ-[address] [facility] 28804910526 30 MG Orally Active 1 capsu le Once a day with a meal Gabapentin ND 81832460792 400 MG Orally Jul 12, Active 2 c apsule twice a day 2018 (bid) Levaquin ND 10446744245 500 mg Orally Jul 19, Active 1 tab let Once a day 2018 Pravastatin ND 96578505420 20 mg Orally Active 1 t ablet Sodium once every night Potassimin ND 90481278625 75 MG Orally Active 1 ta blet Once a day Levothyroxine ND 96949686520 88 MCG Orally September Active 1 tablet Sodium Once a day , on an 2018 empty stomach in the morning Bactrim DS ND 56139773658 800-160 MG Jan 31, Active 1 tabl et Orally Twice a 2016 day Calcium + D ND 55275070205 600-200 MG-UNIT Active 2 tablet Orally twice a with food day (bid) Osteo Bi-Flex ND 74418862166 - Orally Active not Triple Strength defined Diabetes Support [facility] 98050742577 THERAPY PACK Active not Orally defined BusPIRone HCl ND 54551285858 30 MG Orally bid Activ e TAKE 1 TABLET BY MOUTH TWICE A DAY Myrbetriq ND 43186577131 50 mg Orally Aug 17, Active 1 tab let Once a day 2017 Sanctura NDC 0 20 mg by mouth Jul 16, Active 1 tablet Once a day 2013 Trulicity ND 18935034059 0.75mg/0.5ml sq Jan 31, Active on ce a every 2 wks 2016 week as directed Lisinopril ND 16588917651 20 mg Orally Active 1 ta blet twice a day (bid) Benadryl Allergy ND 87931737389 25 MG Orally Active 1 tablet once every night as need ed Viibryd ND 04366505733 20 mg Orally May 03, Active 1 table t Once a day 2016 with food Lomaira ND 34397510454 8 MG Orally Feb 20, Active 1 tablet Three times a 2017 before day meals Acidophilus ND 55821161075 - Orally Active not defined BuPROPion HCl ND 29983375676 75 MG Orally August Active 1 tablet daily 2016 Vimovo ND 44429251779 500-20 MG Orally Sept Active 1 t ablet Twice a day , before 2015 meals Prolia ND 75809981609 60 MG/ML Apr 11, Active as Subcutaneous 2018 directed everry 6 months One Touch NDC 0 as directed bid Active use Glucometer with test strips and lancets Fosamax ND 02002476156 70 MG Orally Active 1 table t weekly [place] [address] [facility] 24062023959 1000 MG Orally Active 1 cap yeimy Once a day Sleep Aid ND 90695841681 25 MG Orally Active 1 tab let Once a day at bedtime as needed HydrOXYzine HCl [facility] 72962345324 25 MG Oral Active T MARIAH 1 TABLET BY MOUTH EVERY DAY NEEDED Zostavax [facility] 59106642267 62017 UNT/0.65ML May 11, Active as Subcutaneous one 2016 directe d time VESIcare [facility] 77228430852 10 MG Orally Jun 01, Active 1 tabl et Once a day 2016 Restoril ND 81437771476 15 MG Orally November 21, Active 1 caps ule Once a day 2018 at bedtime as needed Vitamin B-[address] [facility] 11183297247 1000 MCG by Active 1 t ablet mouth Once a day Vitamin D [facility] 18513360037 2000 UNIT Orally Active 5 tablets Once a day Uribel [facility] 68252500782 118 MG Orally December Active 1 caps ule three times a , day (tid) 2018 Neurontin ND 30712086490 600 MG Orally November 03, Active 1 ta blet Three times a 2014 Niacin ND 75058331564 250 MG Orally Active 1 tabl et Once a day Pen Monarch [facility] 68573628975 31G X 8 MM SQ Aug 16, Active as /16" twice a day 2017 directed (bid) Viibryd [facility] 49354634959 10 mg Orally Active 1 table t Once a day with food Macrobid [facility] 17628970472 100 mg Orally December Active 1 cap yeimy every 12 hrs , with food 2018 Levaquin ND 66693551649 500 mg Orally Feb 06, Active 1 tab let Once a day 2018 Cephalexin ND 17948350205 500 mg Orally May 20, Active 1 t ablet every 12 hrs 2017 Duloxetine HCl ND 92870355435 30 MG Orally Active 1 capsule Once a day Naproxen ND 19737733961 375 MG Orally Active 1 tab let every 12 hrs with food or milk as needed Acyclovir ND 36252808887 400 MG Orally November 03, Active 1 ta blet Three times a 2014 day Allergy Relief ND 76697839681 25 MG Orally Active 1 tablet every 8 hrs as needed Pentazocine-Nalo ND 60078621535 50-0.5 MG Oral Acti ve not xone HCl defined Omeprazole ND 28579278129 20 mg Orally Active 1 ca psule Once a day Macrobid [facility] 20560798378 100 MG Orally Jan 31, Active 1 cap yeimy every 12 hrs 2016 with food Linzess [facility] 11810730159 72 mcg orally Active 1 caps ule Daily Saxenda [facility] 16540176602 18 MG/3ML November Active 3.0mg Subcutaneous [address] [facility] 05870701403 60 MG/ML Jul 19, Active 60mg/ml Subcutaneous 2018 every 6 months Aspir-81 ND 56659923504 81 MG Orally Active 1 tabl et Once a day NovoFine [facility] 10079639571 32G X 6 MM SQ November Active as daily [address] [facility] 93879651683 10 MG Oral Active TAKE 1 TABLET BY MOUTH EVERY DAY Viibryd [facility] 72245907701 40MG Orally Active 1 tablet daily Levaquin [facility] 10221635753 500 mg Orally September Active 1 tab let Once a day 2018 Tumeric NDC 0 Active not defined Victoza [facility] 66551129971 6MG/ML SQ daily Active 1.8 mg Fish Oil ND 28986051404 1000 MG Orally Active 1 ca psule Once a day Cayenne [facility] 93538213812 450 MG Orally Active not defined Multi-betic [facility] 59303879734 - Orally Active not Diabetes defined Naproxen [facility] 92308220221 500MG Orally Active 1 tabl et twice a day (bid) Flintstones Plus [facility] 23392986173 Multivitamin Active 1 tablet Iron Orally Once a day Marycarmen BD ultra NDC 0 4mm x 32g Active as fine pen needles intradermally d irected three times a day (tid) One A Day Multi NDC 0 by mouth once a Active as Vitamin day directed Results No Known Results Summary Purpose eClinicalWorks Submission
--- OUTSIDE RECORDS SUMMARY | 2019-11-19 16:18 | XMS REPORT ---
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 Problem Type 2 diabetes mellitus without E11.9 Active complications Problem Chronic obstructive pulmonary J44.9 Active disease, unspecified Problem Gastro-esophageal reflux disease K21.9 Active without esophagitis Problem Anxiety disorder, unspecified F41.9 Active Problem Major depressive disorder, single F32.9 Active episode, unspecified Problem Morbid (severe) obesity due to E66.01 Active excess calories Problem Other specified hypothyroidism E03.8 Active Problem Adjustment disorder with depressed F43.21 Active mood Problem OA (osteoarthritis) M19.90 Active Problem Stress incontinence in female N39.3 Active Problem Neuropathy G62.9 Active Problem Obesity, unspecified obesity E66.9 Active severity, unspecified obesity type Problem Morbid obesity due to excess E66.01 Active calories Problem Other specified diabetes mellitus E13.9 Active without complications Problem Constipation, unspecified K59.00 Ac tive Problem Essential (primary) hypertension I10 Active Problem Hypothyroidism, unspecified E03.9 Active Problem Anxiety F41.9 Active Problem Mixed incontinence urge and stress N39.46 Active Problem Chronic constipation K59.00 Active Problem Chronic obstructive pulmonary J44.9 Active disease, unspecified COPD type Assessment Other specified diabetes mellitus E13.9 Active without complications Assessment Familial hypercholesterolemia E78.01 Active Assessment Other specified hypothyroidism E03.8 Active Assessment Vitamin D deficiency, unspecified E55.9 Active Assessment Drug-induced constipation K59.03 Ac tive Assessment Simple chronic bronchitis J41.0 Ac tive Assessment Age-related osteoporosis without M81.0 Active current pathological fracture Assessment Anxiety F41.9 Active Assessment Major depressive disorder, single F32.9 Active episode, unspecified Assessment Venous insufficiency I87.2 Active Assessment Urge incontinence N39.41 Active Problem Age-related osteoporosis without M81.0 Active current pathological fracture Assessment Essential (primary) hypertension I10 Active Problem Simple chronic bronchitis J41.0 Ac tive Problem Venous insufficiency I87.2 Active Problem Pure hypercholesterolemia, E78.00 A ctive unspecified Problem Vitamin D deficiency, unspecified E55.9 Active Problem Slow transit constipation K59.01 Ac tive Problem Coronary artery disease involving I25.10 Active [place] coronary artery of [place] heart without angina pectoris Problem Urge incontinence N39.41 Active Problem Esophageal reflux K21.9 Active Problem Familial hypercholesterolemia E78.01 Active Problem Morbid obesity E66.01 Active Problem Chronic idiopathic constipation K59.04 Active Problem Type II or unspecified type diabetes E11.9 Active mellitus without mention of complication, not stated as uncontrolled Problem Other chronic pain G89.29 Active Problem Female stress incontinence N39.3 A ctive Problem Allergic rhinitis due to pollen J30.1 Active Assessment Dysuria R30.0 Active Problem Benign essential hypertension I10 Active Problem Ischemic heart disease I25.9 Activ e Problem Vitamin D deficiency E55.9 Active Problem Depressive disorder, not elsewhere F32.9 Active classified Problem Mixed hyperlipidemia E78.2 Active Problem Hypothyroidism E03.9 Active Medications Medication Code Code Instructions Start End Status Dosage System Date Date Naproxen [facility] 45711140821 500MG Orally Active 1 tabl et twice a day (bid) Levothyroxine [facility] 54783718995 125MCG orally Active 1 tablet Sodium daily Potassimin [facility] 27661323961 75 MG Orally Active 1 ta blet Once a day Myrbetriq [facility] 84281052372 50 mg Orally Aug 17, Active 1 tab let Once a day 2017 Multi-betic [facility] 34103158317 - Orally Active not Diabetes defined Macrobid [facility] 82295928962 100 mg Orally Apr 26, Active 1 cap yeimy twice a day 2016 with food (bid) Trulicity [facility] 73830164371 0.75mg/0.5ml sq Jan 31, Active on ce a every 2 wks 2016 week as directed Benadryl Allergy [facility] 07138471232 25 MG Orally Active 1 tablet once every night as need ed Calcium + D [facility] 69717433317 600-200 MG-UNIT Active 2 tablet Orally twice a with food day (bid) Adipex-P [facility] 69486998200 37.5 MG Orally Jun 04, Active 1 ta blet Once a day 2014 Diabetes Support [facility] 48021544785 THERAPY PACK Active not Orally defined Viibryd ND 10633121599 10 mg Orally May 03, Active 1 table t Once a day 2016 with food Prolia ND 12020487513 60 MG/ML Feb 14, Active as Subcutaneous 2016 directed every 6 months Fosamax ND 12080660352 70 MG Orally Active 1 table t weekly Levaquin ND 97931173058 500 mg Orally May 03, Active 1 tab let Once a day 2016 Linzess ND 39862272076 145 MCG Orally Active 1 cap yeimy Once a day Marycarmen BD ultra NDC 0 4mm x 32g Active as fine pen needles intradermally d irected three times a day (tid) Cayenne [facility] 58758474458 450 MG Orally Active not defined Niacin ND 03438091673 250 MG Orally Active 1 tabl et Once a day BuPROPion HCl ND 80730042896 75 MG Orally August Active 1 tablet daily 2016 Cinnamon ND 49407792033 500 MG Orally Active not defined BD Pen NDC 0 31.156 SQ three January 08, Active as times a day 2013 directed (tid) Fish Oil ND 61198949246 1000 MG Orally Active 1 ca psule Once a day Flintstones Plus [facility] 16512477963 Multivitamin Active 1 tablet Iron Orally Once a day Victoza ND 76570601049 6MG/ML SQ daily Active 1.8 mg VESIcare ND 01573979701 10 MG Orally Jun 01, Active 1 tabl et Once a day 2015 CoQ-10 ND 17023003276 30 MG Orally Active 1 capsu le Once a day with a meal Acidophilus ND 34860076189 - Orally Active not defined [place] 3 ND 53524950025 1000 MG Orally Active 1 cap yeimy Once a day Clopidogrel ND 02025521229 75 MG Orally Active 1 t ablet Bisulfate Once a day Tumeric NDC 0 Active not defined Macrobid [facility] 14644304923 100 MG Orally Jun 01, Active 1 cap yeimy twice a day 2015 with food (bid) Symbicort ND 15048861961 80-4.5 MCG/ACT Jul 24, Active 2 p uffs Inhalation Twice 2014 a day Vimovo ND 70721802133 500-20 MG Orally Mar 21, Active 1 tablet Twice a day 2015 before meals Ultram ND 23849251313 50 mg Orally November 03, Active 1 table t twice a day 2014 as needed (bid) Edarbi ND 51064359180 40 mg Orally Mar 21, Active 1 tabl et twice a day 2015 (bid) Pravastatin ND 68369475764 20 mg Orally Active 1 t ablet Sodium once every night Vitamin B-12 ND 53423353924 1000 MCG by Active 1 t ablet mouth Once a day Viibryd ND 12831029303 20 mg Orally May 03, Active 1 table t Once a day 2016 with food Macrobid ND 43231851719 100 MG Orally Jan 31, Active 1 cap yeimy every 12 hrs 2016 with food Darifenacin ND 41670299872 15 MG Orally Active 2 t ablet Hydrobromide ER Once a day with liquid Folic Acid ND 06754916864 800 MCG Orally Active 1 tablet Once a day Xanax ND 46644409474 0.5 MG PO four Active 1 tab let times a day (qid) Neurontin ND 97418024068 600 MG Orally November 03, Active 1 ta blet Three times a 2014 day Vitamin D ND 12306826928 2000 UNIT Orally Active 5 tablets Once a day Viibryd ND 29036834872 40MG Orally Active 1 tablet daily One Touch ND 0 as directed bid Active use Glucometer with test strips and lancets [place] [facility] 46357156525 5-325 MG Orally September Active 1 ta blet three times a 2014 as needed day (tid) Omeprazole ND 05393978900 20MG by mouth December 07, Active 1 tablet once a day 2015 Acyclovir ND 36181745066 400 MG Orally November 03, Active 1 ta blet Three times a 2014 day Bactrim DS ND 31730154777 800-160 MG Jan 31, Active 1 tabl et Orally Twice a 2016 day Pen [place] [facility] 18602808569 31G X 8 MM SQ Aug 16, Active as 5/16" twice a day 2017 directed (bid) Allergy Relief ND 77187265288 25 MG Orally Active 1 tablet every 8 hrs as needed Zostavax [facility] 57955867300 69792 UNT/0.65ML May 11, Active as Subcutaneous one 2016 directe d time Fosfree ND 86718373266 - Orally Active not defined Levemir Flexpen ND 78503737419 100 UNIT/ML Active 35 units Subcutaneous twice a day (bid) Osteo Bi-Flex ND 73300773758 - Orally Active not Triple Strength defined Sanctura NDC 0 20 mg by mouth Jul 16, Active 1 tablet Once a day 2013 Vital Signs Date/Time: Aug 17, 2017 BMI 45.62 Index Weight 265.8 lbs Height 64 in Temperature 98.6 F Cardiac Monitoring Heart Rate 75 /min Blood Pressure Diastolic 86 mm Hg Blood Pressure Systolic 134 mm Hg Results Name Result Date Reference Range Unit Abnormali ty Flag Urinalysis (Urine Dipstick) ----Spec [place] 1.015 20170817 ----Turbidity clear 20170817 ----Glucose neg 20170817 ----Ketones neg [id number] ----Blood neg [id number] ----Bili neg [id number] ----Color yellow 20170817 ----pH 5 20170817 ----Leuk Est neg [id number] ----Nitrite neg [id number] ----Urobilinogen 0.2 20170817 ----Protein neg [id number] Summary Purpose [employer]ClinicalWorks Submission
--- OUTSIDE RECORDS SUMMARY | 2019-11-19 16:18 | XMS REPORT ---
[...] Coronary artery disease involving I25.10 Active [place] coronary artery of [place] heart without angina pectoris Problem Other chronic [...] End Status Dosage System Date Date VESIcare [facility] 19851648317 10 MG Orally Jun 01, Active 1 tabl et Once a day 2015 Pravastatin [facility] [address]-44 20 mg Orally Active 1 tablet Sodium once every night Calcium + D [facility] 33874491002 600-200 MG-UNIT Active 2 tablet Orally twice a with food day (bid) Cayenne [facility] 53560240527 450 MG Orally Active not defined One Touch ND 0 as directed bid Active use Glucometer with test strips and lancets Multi-betic [facility] 00411595817 - Orally Active not Diabetes defined Trulicity [facility] 06237417330 0.75mg/0.5ml sq Jan 31, Active on ce a every 2 wks 2016 week as directed Levaquin ND 54500582707 500 mg Orally May 03, Active 1 tab let Once a day 2016 Fish Oil [facility] 52968155064 1000 MG Orally Active 1 ca psule Once a day [place] [facility] 58181175808 5-325 MG Orally September Active 1 ta blet three times a 20, as needed day (tid) 2014 BuPROPion HCl [facility] 68045648130 75 MG Orally August Active 1 tablet daily 2016 Viibryd [facility] 04954709258 10 mg Orally May 03, Active 1 table t Once a day 2016 with food Bactrim DS [facility] 58629445775 800-160 MG Jan 31, Active 1 tabl et Orally Twice a 2017 day Linzess [facility] 77925972384 145 MCG Orally Active 1 cap yeimy Once a day Levemir Flexpen [facility] 84063758261 100 UNIT/ML Active 35 units Subcutaneous twice a day (bid) Victoza [facility] 95746704364 6MG/ML SQ daily Active 1.8 mg Acidophilus [facility] 74854837843 - Orally Active not defined Folic Acid ND 86977526660 800 MCG Orally Active 1 tablet Once a day Marycarmen BD ultra NDC 0 4mm x 32g Active as fine pen needles intradermally d irected three times a day (tid) Allergy Relief ND 03707129441 25 MG Orally Active 1 tablet every 8 hrs as needed Vimovo ND 83528111424 500-20 MG Orally Sept Active 1 t ablet Twice a day , before 2015 meals Sanctura NDC 0 20 mg by mouth Jul 16, Active 1 tablet Once a day 2013 BD Pen NDC 0 31.156 SQ december Active as times a day 10, directed (tid) 2013 Macrobid ND 60258277877 100 MG Orally Jun 01, Active 1 cap yeimy twice a day 2015 with food (bid) Potassimin ND 29276417501 75 MG Orally Active 1 ta blet Once a day CoQ-10 ND 77244542000 30 MG Orally Active 1 capsu le Once a day with a meal Cinnamon ND 40593148365 500 MG Orally Active not defined Vitamin D ND 69362783767 2000 UNIT Orally Active 5 tablets Once a day Pen [place] ND 14499966072 31G X 8 MM SQ Aug 16, Active as 16" twice a day 2016 directed (bid) Osteo Bi-Flex [facility] 96079631700 - Orally Active not Triple Strength defined Naproxen ND 08593409660 500MG Orally Active 1 tabl et twice a day (bid) Benadryl Allergy ND 59061168572 25 MG Orally Active 1 tablet once every night as need ed Fosamax ND 04611903793 70 MG Orally Active 1 table t weekly Acyclovir ND 30497442106 400 MG Orally November 03, Active 1 ta blet Three times a 2014 day Viibryd ND 45427959839 20 mg Orally May 03, Active 1 table t Once a day 2016 with food Fosfree ND 04446735909 - Orally Active not defined Vitamin B-12 ND 04234816922 1000 MCG by Active 1 t ablet mouth Once a day Edarbi ND 91248420906 40 mg Orally Sept Active 1 table t twice a day , (bid) 2015 Diabetes Support ND 55458729195 THERAPY PACK Active not Orally defined Prolia ND 35455827788 60 MG/ML Feb 14, Active as Subcutaneous 2017 directed every 6 months Tumeric NDC 0 Active not defined Zostavax ND 39537188556 02515 UNT/0.65ML May 11, Active as Subcutaneous one 2016 directe d time Viibryd [facility] 06560786000 40MG Orally Active 1 tablet daily Levothyroxine ND 12141352978 125MCG orally Active 1 tablet Sodium daily Adipex-P ND 73056288592 37.5 MG Orally Jun 04, Active 1 ta blet Once a day 2014 Darifenacin ND 29125512719 15 MG Orally Active 2 t ablet Hydrobromide ER Once a day with liquid Flintstones Plus [facility] 44371448784 Multivitamin Active 1 tablet Iron Orally Once a day Omeprazole ND 38437929942 20MG by mouth November Active 1 t ablet once a day 2015 Ultram ND 85471186331 50 mg Orally November 03, Active 1 table t twice a day 2014 as needed (bid) Neurontin ND 88686604757 600 MG Orally November 03, Active 1 ta blet Three times a 2014 day Xanax ND 60083036280 0.5 MG PO four Active 1 tab let times a day (qid) Macrobid ND 65623159278 100 MG Orally Jan 31, Active 1 cap yeimy every 12 hrs 2016 with food Symbicort [facility] 34287330900 80-4.5 MCG/ACT Jul 24, Active 2 p uffs Inhalation Twice 2014 a day Macrobid [facility] 38304807097 100 mg Orally Apr 26, Active 1 cap yeimy twice a day 2016 with food (bid) Clopidogrel ND 78357506256 75 MG Orally Active 1 t ablet Bisulfate Once a day Niacin ND 43996443416 250 MG Orally Active 1 tabl et Once a day [place] 3 ND 45787339291 1000 MG Orally Active 1 cap yeimy Once a day Results No Known Results Summary Purpose [employer]ClinicalWorks Submission
--- OUTSIDE RECORDS SUMMARY | 2019-11-19 16:20 | XMS REPORT ---
[...] Problem Essential (primary) hypertension I10 Active Problem Constipation, unspecified K59.00 Ac tive [...] bronchitis J41.0 Ac tive Assessment Osteopenia of lumbar spine M85.88 A ctive Assessment Essential (primary) hypertension I10 Active Assessment Pure hypercholesterolemia, E78.00 A ctive unspecified Assessment Vitamin D deficiency, unspecified E55.9 Active Assessment Chronic idiopathic constipation K59.04 Active Assessment Urge incontinence of urine N39.41 A ctive Assessment Major depressive disorder, single F32.9 Active episode, unspecified Assessment Other specified hypothyroidism E03.8 Active Problem Type II or unspecified type E11.9 Active diabetes mellitus without mention of complication, not stated as uncontrolled Problem Female stress incontinence N39.3 A ctive Problem Benign essential hypertension I10 Active Problem Pure hypercholesterolemia, E78.00 A ctive unspecified Assessment Suicide attempt T14.91XA Active Problem Chronic idiopathic constipation K59.04 Active [...] Problem Coronary artery disease involving I25.10 Active [place] coronary artery of [place] heart without angina pectoris Problem Mixed hyperlipidemia [...] End Status Dosage System Date Date Neurontin [facility] 33710999976 600 MG Orally November 03, Active 1 ta blet Three times a 2014 day Cymbalta [facility] 54028874933 20 mg Orally Active 1 caps ule Once a day VESIcare [facility] 29285492184 10 MG Orally Jun 01, Active 1 tabl et Once a day 2015 Osteo Bi-Flex [facility] 76234136844 - Orally Active not Triple Strength defined Acidophilus [facility] 99932081550 - Orally Active not defined Symbicort [facility] 17658903174 80-4.5 MCG/ACT Jul 24, Active 2 p uffs Inhalation Twice 2014 a day Viibryd [facility] 39814849666 10 mg Orally Active 1 table t Once a day with food Viibryd [facility] 42828004977 20 mg Orally May 03, Active 1 table t Once a day 2016 with food Calcium + D [facility] 75999638233 600-200 MG-UNIT Active 2 tablet Orally twice a with food day (bid) Adipex-P [facility] 85632455590 37.5 MG Orally Jun 04, Active 1 ta blet Once a day 2014 Macrobid [facility] 30377444063 100 MG Orally Jan 31, Active 1 cap yeimy every 12 hrs 2016 with food AZO Bladder [facility] 07392023070 - Orally Active not Control/Go-Less defined Allergy Relief ND 69065914749 25 MG Orally Active 1 tablet every 8 hrs as needed Cinnamon ND 68660299704 500 MG Orally Active not defined Levothyroxine ND 71869294192 125MCG orally Active 1 tablet Sodium daily Benadryl Allergy ND 01805919347 25 MG Orally Active 1 tablet once every night as need ed BuPROPion HCl ND 52936874891 75 MG Orally August Active 1 tablet daily 2016 Tumeric ND 0 Active not defined [place] 3 [facility] 53348315672 1000 MG Orally Active 1 cap yeimy Once a day Bactrim DS ND 32364179164 800-160 MG Jan 31, Active 1 tabl et Orally Twice a 2016 day Niacin ND 12872921640 250 MG Orally Active 1 tabl et Once a day Pravastatin ND 70197811597 20 mg Orally Active 1 t ablet Sodium once every night Fosfree [facility] [address]-76 - Orally once Active 2 ta blet every night Flintstones Plus [facility] 77253278750 Multivitamin Active 1 tablet Iron Orally Once a day Ultram ND 02527937696 50 mg Orally November 03, Active 1 table t twice a day 2014 as needed (bid) Fosamax ND 60069556334 70 MG Orally Active 1 table t weekly Macrobid [facility] 58518023023 100 MG Orally Jun 01, Active 1 cap yeimy twice a day 2015 with food (bid) CoQ-10 ND 80588897932 30 MG Orally Active 1 capsu le Once a day with a meal Potassimin ND 35168733541 75 MG Orally Active 1 ta blet Once a day Multi-betic [facility] 58604017906 - Orally Active not Diabetes defined Linzess [facility] 24314869405 145 MCG Orally Active 1 cap yeimy Once a day Vitamin B-12 ND 25476980704 1000 MCG by Active 1 t ablet mouth Once a day Macrobid [facility] 27619413156 100 mg Orally Apr 26, Active 1 cap yeimy twice a day 2016 with food (bid) Naproxen ND 37618526996 500MG Orally Active 1 tabl et twice a day (bid) Myrbetriq ND 31868741262 50 mg Orally Aug 17, Active 1 tab let Once a day 2017 Pentazocine-Nalo ND 26966843053 50-0.5 MG Oral Acti ve not xone HCl defined Fish Oil ND 40087276894 1000 MG Orally Active 1 ca psule Once a day Linzess ND 69761269470 72 mcg orally November 21, Active 1 caps ule Daily 2017 Vitamin D ND 54133729017 2000 UNIT Orally Active 5 tablets Once a day Lisinopril ND 19147246853 20 mg Orally Active 1 ta blet twice a day (bid) BD Pen NDC 0 31.156 SQ december Active as times a day 10, directed (tid) 2013 Marycarmen BD ultra NDC 0 4mm x 32g Active as fine pen needles intradermally d irected three times a day (tid) Darifenacin ND 74916973478 15 MG Orally Active 2 t ablet Hydrobromide ER Once a day with liquid Trulicity ND 79923399632 0.75mg/0.5ml sq Jan 31, Active on ce a every 2 wks 2017 week as directed Clopidogrel ND 05310661295 75 MG Orally Active 1 t ablet Bisulfate Once a day Victoza ND 69920999536 6MG/ML SQ daily Active 1.8 mg Aspir-81 ND 25575006550 81 MG Orally Active 1 tabl et Once a day Viibryd ND 83166554071 40MG Orally Active 1 tablet daily One Touch NDC 0 as directed bid Active use Glucometer with test strips and lancets Acyclovir ND 96896191135 400 MG Orally November 03, Active 1 ta blet Three times a 2014 day Prolia ND 87612059220 60 MG/ML Feb 14, Active as Subcutaneous 2017 directed every 6 months [place] ND 48207148935 5-325 MG Orally September Active 1 ta blet three times a 20, as needed day (tid) 2014 Diabetes Support ND 96882697975 THERAPY PACK Active not Orally defined One A Day Multi NDC 0 by mouth once a Active as Vitamin day directed [place] [facility] 99197479416 450 MG Orally Active not defined [place] Thyroid ND 87020259049 120 MG Orally August Active 1 t ablet Once a day , on an 2017 empty stomach Omeprazole ND 41711854966 20MG by mouth November Active 1 t ablet once a day 2015 Pen [place] ND 30709504342 31G X 8 MM SQ Aug 16, Active as /16" twice a day 2016 directed (bid) [place] ND 49266129127 15 MG Orally November 21, Active 1 caps ule Once a day 2017 at bedtime as needed Zostavax [facility] 99640396846 60002 UNT/0.65ML May 11, Active as Subcutaneous one 2016 directe d time Vimovo ND 26107998740 500-20 MG Orally Sept Active 1 t ablet Twice a day , before 2015 meals Sanctura NDC 0 20 mg by mouth Jul 16, Active 1 tablet Once a day 2013 Vital Signs Date/Time: November 29, 2017 BMI 42.70 Index Weight 248.8 lbs Height 64 in Temperature 99.2 F Cardiac Monitoring Heart Rate 83 /min Blood Pressure Diastolic 68 mm Hg Blood Pressure Systolic 125 mm Hg Results No Known Results Summary Purpose eClinicalWorks Submission
--- OUTSIDE RECORDS SUMMARY | 2019-11-19 16:20 | XMS REPORT ---
:1955 Author Organization [employer] Care Team Providers Name Role Phone TylermarlenLorena cortez Provider Role Unavailable Allergies, Adverse Reactions, Alerts Substance Reaction Event Type Bactrim Info Not Available Drug Allergy Problems Problem Type Condition Code Onset Dates Condition Statu s Problem Polyosteoarthritis, 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 Problem Chronic obstructive pulmonary J44.9 Active disease, unspecified Problem Adjustment disorder with depressed F43.21 [...] diabetes mellitus E13.9 Active without complications Assessment Polyosteoarthritis, 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 Assessment Anxiety F41.9 Active Assessment Urge incontinence of urine N39.41 A ctive Assessment Gastro-esophageal reflux disease K21.9 Active without esophagitis Assessment PAD (peripheral artery disease) I73.9 Active Assessment Osteopenia of lumbar spine M85.88 A ctive Problem Age-related osteoporosis without M81.0 Active current pathological fracture Problem Chronic obstructive pulmonary J44.9 Active disease, unspecified COPD type Problem Constipation, unspecified K59.00 Ac tive Problem Mixed incontinence urge and stress N39.46 Active Problem Venous insufficiency I87.2 Active Problem Chronic constipation K59.00 Active Problem Anxiety F41.9 Active Problem Pure hypercholesterolemia, E78.00 A ctive unspecified Problem Chronic idiopathic constipation K59.04 Active Problem Vitamin D deficiency, unspecified E55.9 Active Problem Simple chronic bronchitis J41.0 Ac tive Assessment Essential (primary) hypertension I10 Active Assessment Vitamin D deficiency, unspecified E55.9 Active Assessment Familial hypercholesterolemia E78.01 Active Assessment Drug-induced constipation K59.03 Ac tive Assessment Dysuria R30.0 Active Assessment Major depressive disorder, single F32.9 Active episode, unspecified Assessment Type 2 diabetes mellitus without E11.9 Active complications Assessment Other specified hypothyroidism E03.8 Active Assessment Morbid (severe) obesity due to E66.01 Active excess calories Problem Type II or unspecified type diabetes E11.9 Active mellitus without mention of complication, not stated as uncontrolled Problem Benign essential hypertension I10 Active Problem Morbid obesity E66.01 Active Problem Esophageal reflux K21.9 Active Problem Familial hypercholesterolemia E78.01 Active Problem Female stress incontinence N39.3 A ctive Problem Other chronic pain G89.29 Active Problem Allergic rhinitis due to pollen J30.1 Active Problem Slow transit constipation K59.01 Ac tive Problem Coronary artery disease involving I25.10 Active [place] coronary artery of [place] heart without angina pectoris Problem Osteoarthritis of both knees, M17.0 Active unspecified osteoarthritis type Problem Gastroesophageal reflux disease K21.9 Active without esophagitis Problem NERY (obstructive sleep apnea) G47.33 Active Problem Ischemic heart disease I25.9 Activ e Problem Acquired hypothyroidism E03.9 Acti ve Problem Depressive disorder, not elsewhere F32.9 Active classified Problem Urge incontinence N39.41 Active Problem Vitamin D deficiency E55.9 Active Problem Urge incontinence of urine N39.41 A ctive Problem Hypothyroidism E03.9 Active Problem PAD (peripheral artery disease) I73.9 Active Problem Mixed hyperlipidemia E78.2 Active Problem Other specified hypothyroidism E03.8 Active Problem Gastro-esophageal reflux disease K21.9 Active without esophagitis Problem Major depressive disorder, single F32.9 Active episode, unspecified Problem Morbid (severe) obesity due to E66.01 Active excess calories Problem Type 2 diabetes mellitus without E11.9 Active complications Problem Anxiety disorder, unspecified F41.9 Active Medications Medication Code Code Instructions Start End Status Dosage System Date Date FILLER BLENDER Thyroid [facility] 14806947922 90 MG Orally August Active 1 ta blet Once a day 12, on an 2017 empty stomach Duloxetine HCl ND 14004296604 30 MG Orally Active 1 capsule Once a day Prolia [facility] 35998380922 60 MG/ML Apr 11, Active as Subcutaneous 2018 directed everry 6 months Saxenda ND 73386166439 18 MG/3ML November Active 3.0mg Subcutaneous 28, daily 2017 Neurontin ND 78863353271 600 MG Orally November 03, Active 1 ta blet Three times a 2014 day Viibryd [facility] 86027390200 40MG Orally Active 1 tablet daily Macrobid ND 00601841339 100 MG Orally Jan 31, Active 1 cap yeimy every 12 hrs 2016 with food Acidophilus ND 47141640949 - Orally Active not defined Multi-betic ND 89260451234 - Orally Active not Diabetes defined Gabapentin ND 76956993302 400 MG Orally Jul 12, Active 1 c apsule three times a 2018 day (tid) Vimovo ND 40497355095 500-20 MG Sept Active 1 tablet Orally Twice a 20, before day 2016 meals Flintstones Plus [facility] 48388284929 Multivitamin Active 1 tablet Iron Orally Once a day Allergy Relief ND 66230413581 25 MG Orally Active 1 tablet every 8 hrs as needed CoQ-10 ND 02789177733 30 MG Orally Active 1 capsu le Once a day with a meal Symbicort ND 89536079515 80-4.5 MCG/ACT Jul 24, Active 2 p uffs Inhalation 2014 Twice a day One Touch ND 0 as directed Active use Glucometer with bid test strips and lancets Cephalexin ND 46978193142 500 mg Orally May 20, Active 1 t ablet every 12 hrs 2017 AZO Bladder ND 01338096474 - Orally Active not Control/Go-Less defined Vitamin B-12 ND 21072689635 1000 MCG by Active 1 t ablet mouth Once a day Victoza ND 04042300281 6MG/ML SQ daily Active 1.8 mg Bactrim DS ND 11717629049 800-160 MG Jan 31, Active 1 tabl et Orally Twice a 2016 day Restoril ND 80808118057 15 MG Orally November 21, Active 1 caps ule Once a day 2018 at bedtime as needed Acyclovir ND 34342404256 400 MG Orally November 03, Active 1 ta blet Three times a 2014 day Naproxen ND 06638779630 500MG Orally Active 1 tabl et twice a day (bid) NovoFine [facility] 25121026720 32G X 6 MM SQ November Active as daily , directed 2018 Benadryl Allergy ND 41540657318 25 MG Orally Active 1 tablet once every as needed night Macrobid ND 87869366949 100 mg Orally December Active 1 cap yeimy every 12 hrs 12, with food 2018 Viibryd [facility] 67541652083 10 mg Orally Active 1 table t Once a day with food HydrOXYzine HCl [facility] 74469886086 25 MG Oral Active T MARIAH 1 TABLET BY MOUTH EVERY DAY NEEDED Lisinopril ND 05263064419 20 mg Orally Active 1 ta blet twice a day (bid) Pentazocine-Nalo [facility] 84025936625 50-0.5 MG Oral Acti ve not xone HCl defined Aripiprazole ND 28202329398 10 MG Oral Active TAKE 1 TABLET BY MOUTH EVERY DAY Myrbetriq ND 92198152902 50 mg Orally Aug 17, Active 1 tab let Once a day 2017 Meloxicam ND 09713974543 15 MG Orally Inactive 1 ta blet Once a day VESIcare ND 56005976368 10 MG Orally Jun 01, Active 1 tabl et Once a day 2015 Levaquin ND 43796491219 500 mg Orally Feb 06, Active 1 tab let Once a day 2017 Tumeric NDC 0 Active not defined Fosfree [facility] [address]-24 - Orally once Active 2 ta blet every night BuPROPion HCl [facility] 23266656533 75 MG Orally August Active 1 tablet daily 2016 BusPIRone HCl [facility] 57926134555 30 MG Orally Active T MARIAH 1 bid TABLET BY MOUTH TWICE A DAY Sleep Aid [facility] 82819709329 25 MG Orally Active 1 tab let Once a day at bedtime as needed Zostavax [facility] 58051321963 27623 May 11, Active as UNT/0.65ML 2016 directed Subcutaneous one time One A Day Multi NDC 0 by mouth once Active a s Vitamin a day directed Linzess [facility] 41793597990 72 mcg orally Active 1 caps ule Daily Vitamin D [facility] 94674085648 2000 UNIT Active 5 tablet s Orally Once a day Pen Luverne [facility] 89416439182 31G X 8 MM SQ Aug 16, Active as 5/16" twice a day 2016 directed (bid) disabled placard NDC 0 n/a n/a daily December Active a s 12, directed 2017 Aspir-81 [facility] 43308186215 81 MG Orally Active 1 tabl et Once a day Ultram ND 01493179016 50 mg Orally November 03, Active 1 table t twice a day 2014 as needed (bid) Fish Oil [facility] 75922974007 1000 MG Orally Active 1 ca psule Once a day Diabetes Support [facility] 66354570613 THERAPY PACK Active not Orally defined Omeprazole ND 55876899119 20MG by mouth November Active 1 t ablet once a day 2015 [place] 3 ND 71515266825 1000 MG Orally Active 1 cap yeimy Once a day Cymbalta ND 43943521316 60 MG Orally Active 1 caps ule Once a day Viibryd [facility] 47048006539 20 mg Orally May 03, Active 1 table t Once a day 2016 with food Clopidogrel ND 69104162724 75 mg Orally Active 1 t ablet Bisulfate Once a day Potassimin ND 92960087312 75 MG Orally Active 1 ta blet Once a day Pravastatin ND 48281074694 20 mg Orally Active 1 t ablet Sodium once every night [place] [facility] 95280025934 5-325 MG Orally September Active 1 ta blet three times a , as needed day (tid) 2014 Fosamax [facility] 68580348084 70 MG Orally Active 1 table t weekly Sanctura ND 0 20 mg by mouth Jul 16, Active 1 tablet Once a day 2013 Niacin [facility] 74175273666 250 MG Orally Active 1 tabl et Once a day Calcium + D [facility] 92892391226 600-200 MG-UNIT Active 2 tablet Orally twice a with food day (bid) Lomaira [facility] 77396084905 8 MG Orally Feb 20, Active 1 tablet Three times a 2017 before day meals Trulicity [facility] 26995132516 0.75mg/0.5ml sq Jan 31, Active on ce a every 2 wks 2016 week as directed Cayenne [facility] 73088042120 450 MG Orally Active not defined Uribel ND 26394396488 118 MG Orally December Active 1 caps ule three times a , day (tid) 2017 Cinnamon ND 88626105320 500 MG Orally Active not defined Osteo Bi-Flex [facility] 51906323610 - Orally Active not Triple Strength defined Marycarmen BD ultra ND 0 4mm x 32g Active as fine pen needles intradermally d irected three times a day (tid) Levothyroxine [facility] 83987628638 125MCG orally Active 1 tablet Sodium daily Macrobid [facility] 82418809055 100 mg Orally Jul 11 1 cap yeimy every 12 hrs 2019 with food Vital Signs Date/Time: Jul 11, 2018 BMI 45.62 Index Weight 265.8 lbs Height 64 in Temperature 98.4 F Cardiac Monitoring Heart Rate 100 /min Blood Pressure Diastolic 80 mm Hg Blood Pressure Systolic 128 mm Hg Results Name Result Date Reference Range Unit Abnormali ty Flag Urinalysis (Urine Dipstick) ----Spec [place] 1.020 20180711 ----Turbidity cloudy 20180711 ----Glucose neg 20180711 ----Ketones neg 20180711 ----Blood 5-10 20180711 ----Bili neg 20180711 ----Color gene 20180711 ----pH 5 20180711 ----Leuk Est 125 20180711 ----Nitrite neg 20180711 ----Urobilinogen 0.2 20180711 ----Protein 5 [id number] Summary Purpose [employer]Works Submission
--- OUTSIDE RECORDS SUMMARY | 2019-11-19 16:20 | XMS REPORT ---
[...] incontinence urge and stress N39.46 Active Assessment Vitamin D deficiency, unspecified E55.9 Active Assessment Osteopenia of lumbar spine M85.88 A ctive Assessment PAD (peripheral artery disease) I73.9 Active Assessment Polyosteoarthritis, 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 Assessment Essential (primary) hypertension I10 Active Assessment Anxiety F41.9 Active Assessment Drug-induced constipation K59.03 Ac tive Assessment Major depressive disorder, single F32.9 Active episode, unspecified Assessment Morbid (severe) obesity due to E66.01 Active excess calories Assessment Other specified hypothyroidism E03.8 Active Assessment Type 2 diabetes mellitus without E11.9 Active complications Problem Female stress incontinence N39.3 A ctive Problem Type II or unspecified type diabetes E11.9 Active mellitus without mention of complication, not stated as uncontrolled Problem Vitamin D deficiency, unspecified E55.9 Active Assessment Familial hypercholesterolemia E78.01 Active Problem Pure hypercholesterolemia, E78.00 A ctive unspecified Problem Chronic idiopathic constipation K59.04 Active Problem Allergic rhinitis due to pollen J30.1 Active Problem Familial hypercholesterolemia E78.01 Active Problem PAD (peripheral artery disease) I73.9 Active Problem Acquired hypothyroidism E03.9 Acti ve Problem Urge incontinence of urine N39.41 A ctive Problem Hypothyroidism E03.9 Active Problem Coronary artery disease involving I25.10 Active [place] coronary artery of [place] heart without angina pectoris Problem Mixed hyperlipidemia [...] Start End Status Dosage System Date Date Viibryd [facility] 91227990027 20 mg Orally May 03, Active 1 table t Once a day 2016 with food Levemir Flexpen ND 42229078796 100 UNIT/ML Active 35 units Subcutaneous twice a day (bid) Lisinopril ND 54503332904 20 mg Orally Active 1 ta blet twice a day (bid) Sanctura NDC 0 20 mg by mouth Jul 16, Active 1 tablet Once a day 2013 Ultram ND 70915039929 50 mg Orally November 03, Active 1 table t twice a day 2014 as needed (bid) [place] ND 13929379389 5-325 MG Orally September Active 1 ta blet three times a 2014 as needed day (tid) VESIcare ND 18755898487 10 MG Orally Jun 01, Active 1 tabl et Once a day 2015 Adipex-P ND 59583311136 37.5 MG Orally Jun 04, Active 1 ta blet Once a day [address] [facility] 77113721002 100 mg Orally Apr 26, Active 1 cap yeimy twice a day 2016 with food (bid) Trulicity ND 93057147798 0.75mg/0.5ml sq Jan 31, Active on ce a every 2 wks 2017 week as directed Aspir-81 ND 78327025755 81 MG Orally Active 1 tabl et Once a day Viibryd ND 42651205303 40MG Orally Active 1 tablet daily Benadryl Allergy ND 10650948878 25 MG Orally Active 1 tablet once every night as need ed Prolia ND 11352857452 60 MG/ML Feb 14, Active as Subcutaneous 2016 directed every 6 months Naproxen ND 82466309008 500MG Orally Active 1 tabl et twice a day (bid) Macrobid ND 75639979700 100 MG Orally Jan 31, Active 1 cap yeimy every 12 hrs 2016 with food Myrbetriq ND 57409982615 50 mg Orally Aug 17, Active 1 tab let Once a day 2017 BD Pen NDC 0 31.156 SQ three January 08, Active as times a day 2013 directed (tid) CoQ-10 ND 15655423127 30 MG Orally Active 1 capsu le Once a day with a meal Fosfree ND 12716372941 - Orally Active not defined Flintstones Plus [facility] 08162873598 Multivitamin Active 1 tablet Iron Orally Once a day Folic Acid ND 25782799307 800 MCG Orally September Active 1 tablet Once a day 2017 Bactrim DS ND 97479956981 800-160 MG Jan 31, Active 1 tabl et Orally Twice a 2017 day Tumeric NDC 0 Active not defined Osteo Bi-Flex ND 86083238015 - Orally Active not Triple Strength defined One Touch NDC 0 as directed bid Active use Glucometer with test strips and lancets Zostavax [facility] 39202399403 86951 UNT/0.65ML May 11, Active as Subcutaneous one 2016 directe d time Pravastatin ND 80784513835 20 mg Orally Active 1 t ablet Sodium once every night Levaquin ND 04368242776 500 mg Orally May 03, Active 1 tab let Once a day 2016 Acyclovir ND 99952888856 400 MG Orally November 03, Active 1 ta blet Three times a [address] [facility] 54553735308 THERAPY PACK Active not Orally defined Multi-betic ND 00248171461 - Orally Active not Diabetes defined Fish Oil ND 20495342690 1000 MG Orally Active 1 ca psule Once a day Symbicort ND 64214131313 80-4.5 MCG/ACT Jul 24, Active 2 p uffs Inhalation Twice 2014 Pentazocine-Nalo [facility] 54497610361 50-0.5 MG Oral Acti ve not xone HCl defined Neurontin ND 39054196314 600 MG Orally November 03, Active 1 ta blet Three times a 2014 day Xanax ND 67001152593 0.5 MG PO four Active 1 tab let times a day (qid) Acidophilus [facility] 88314094435 - Orally Active not defined Cayenne [facility] 27359897890 450 MG Orally Active not defined Vitamin D [facility] 64459160769 2000 UNIT Orally Active 5 tablets Once a day Fosamax [facility] 27858660120 70 MG Orally Active 1 table t weekly Cinnamon [facility] 81918864920 500 MG Orally Active not defined Vitamin B-[address] [facility] 03933081785 1000 MCG by Active 1 t ablet mouth Once a day Potassimin [facility] 77869583898 75 MG Orally Active 1 ta blet Once a day Allergy Relief [facility] 50181582832 25 MG Orally Active 1 tablet every 8 hrs as needed [place] [address] [facility] 06276374716 1000 MG Orally Active 1 cap yeimy Once a day Omeprazole ND 61774389720 20MG by mouth December 07, Active 1 tablet once a day [address] [facility] 16348579118 - Orally Active not Control/Go-Less defined Pen Forsan [facility] 27291496583 31G X 8 MM SQ Aug 16, Active as 11/14" twice a day 2016 directed (bid) Niacin [facility] 88107435303 250 MG Orally Active 1 tabl et Once a day [employer] Thyroid ND 99506354188 120 MG Orally August Active 1.5 tablet Once a day 2017 on an empty stomach Viibryd [facility] 86678629154 10 mg Orally Active 1 table t Once a day with food Levothyroxine [facility] 13034081932 125MCG orally Active 1 tablet Sodium daily Victoza [facility] 02411527165 6MG/ML SQ daily Active 1.8 mg Vimovo ND 24838563132 500-20 MG Orally Mar 21, Active 1 tablet Twice a day 2015 before meals Marycarmen BD ultra NDC 0 4mm x 32g Active as fine pen needles intradermally d irected three times a day (tid) Macrobid ND 76597646381 100 MG Orally Jun 01, Active 1 cap yeimy twice a day 2015 with food (bid) Clopidogrel ND 59152767912 75 MG Orally Active 1 t ablet Bisulfate Once a day BuPROPion HCl [facility] 41761093785 75 MG Orally August Active 1 tablet daily 2016 Calcium + D [facility] 55366996778 600-200 MG-UNIT Active 2 tablet Orally twice a with food day (bid) Darifenacin [facility] 47174392672 15 MG Orally Active 2 t ablet Hydrobromide ER Once a day with liquid Linzess [facility] 21828044887 145 MCG Orally Active 1 cap yeimy Once a day Vital Signs Date/Time: October 16, 2017 BMI 44.69 Index Weight 260.4 lbs Height 64 in Temperature 99.0 F Cardiac Monitoring Heart Rate 92 /min Blood Pressure Diastolic 62 mm Hg Blood Pressure Systolic 132 mm Hg Results Name Result Date Reference Range Unit Abnormali ty Flag venipuncture Finger Stick (Glucose) ----Glucose Level 125 [id number] Hemoglobin A1c ----Hemoglobin A1c 5.7 20171016 Summary Purpose eClinicalWorks Submission
--- OUTSIDE RECORDS SUMMARY | 2019-11-19 16:21 | XMS REPORT ---
[...] disorder with depressed F43.21 Active mood Problem Other specified hypothyroidism E03.8 Active Problem OA (osteoarthritis) M19.90 Active Problem Stress incontinence in female N39.3 Active Problem Morbid obesity due to excess E66.01 Active calories Problem Obesity, unspecified obesity E66.9 Active severity, unspecified obesity type Problem Neuropathy G62.9 Active Problem Essential (primary) hypertension I10 Active Problem Hypothyroidism, unspecified E03.9 Active Problem Age-related osteoporosis without M81.0 Active current pathological fracture Problem Constipation, unspecified K59.00 Ac tive Problem Other specified diabetes mellitus E13.9 Active without complications Problem Anxiety F41.9 Active Problem Mixed incontinence urge and stress N39.46 Active Problem Chronic obstructive pulmonary J44.9 Active disease, unspecified COPD type Problem Chronic constipation K59.00 Active Problem Vitamin D deficiency, unspecified E55.9 Active Problem Pure hypercholesterolemia, E78.00 A ctive unspecified Problem Simple chronic bronchitis J41.0 Ac tive Problem Venous insufficiency I87.2 Active Assessment Vitamin D deficiency, unspecified E55.9 Active Assessment Drug-induced constipation K59.03 Ac tive Assessment Osteoarthritis of both knees, M17.0 Active unspecified osteoarthritis type Assessment Urge incontinence of urine N39.41 A ctive Assessment Morbid (severe) obesity due to E66.01 Active excess calories Assessment Essential (primary) hypertension I10 Active Assessment Anxiety F41.9 Active Assessment Major depressive disorder, single F32.9 Active episode, unspecified Assessment Other specified hypothyroidism E03.8 Active Problem Type II or unspecified type diabetes E11.9 Active mellitus without mention of complication, not stated as uncontrolled Problem Female stress incontinence N39.3 A ctive Problem Benign essential hypertension I10 Active Problem Morbid obesity E66.01 Active Problem Chronic idiopathic constipation K59.04 Active Assessment Osteopenia of lumbar spine M85.88 A ctive Problem Familial hypercholesterolemia E78.01 Active Problem Allergic rhinitis due to pollen J30.1 Active Problem Coronary artery disease involving I25.10 Active [place] coronary artery of [place] heart without angina pectoris Problem Other chronic pain G89.29 Active Problem Gastroesophageal reflux disease K21.9 Active without esophagitis Problem Urge incontinence of urine N39.41 A ctive Problem Osteoarthritis of both knees, M17.0 Active unspecified osteoarthritis type Problem Depressive disorder, not elsewhere F32.9 Active classified Problem Urge incontinence N39.41 Active Problem Vitamin D deficiency E55.9 Active Problem Slow transit constipation K59.01 Ac tive Problem Hypothyroidism E03.9 Active Problem PAD (peripheral artery disease) I73.9 Active Problem Mixed hyperlipidemia E78.2 Active Problem Acquired hypothyroidism E03.9 Acti ve Problem Esophageal reflux K21.9 Active Problem Chronic obstructive pulmonary J44.9 Active disease, unspecified Problem Anxiety disorder, unspecified F41.9 Active Problem Polyosteoarthritis, 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 Problem Gastro-esophageal reflux disease K21.9 Active without esophagitis Problem Ischemic heart disease I25.9 Activ e Problem Type 2 diabetes mellitus without E11.9 Active complications Medications Medication Code Code Instructions Start End Status Dosage System Date Date Cinnamon [facility] 29699707688 500 MG Orally Active not defined Osteo Bi-Flex [facility] 44424136661 - Orally Active not Triple Strength defined One A Day Multi NDC 0 by mouth once a Active as Vitamin day directed Vitamin B-12 ND 19322089884 1000 MCG by Active 1 t ablet mouth Once a day Acyclovir ND 54303023081 400 MG Orally November 03, Active 1 ta blet Three times a 2014 day [place] 23202144315 5-325 MG Orally September Active 1 ta blet three times a 20, as needed day (tid) [address] [facility] 45620870745 500MG Orally Active 1 tabl et twice a day (bid) Calcium + D [facility] 88414293582 600-200 MG-UNIT Active 2 tablet Orally twice a with food day (bid) Restoril [facility] 56754577627 15 MG Orally November 21, Active 1 caps ule Once a day 2017 at bedtime as needed Pentazocine-Nalo [facility] 65795575563 50-0.5 MG Oral Acti ve not xone HCl defined Fosfree [facility] [address]-66 - Orally once Active 2 ta blet every night VESIcare ND 42078709811 10 MG Orally Jun 01, Active 1 tabl et Once a day [address] [facility] 71984880771 20 mg Orally Active 1 caps ule Once a day Darifenacin ND 53023083779 15 MG Orally Active 2 t ablet Hydrobromide ER Once a day with liquid Viibryd [facility] 55431310033 40MG Orally Active [address] [facility] 09664363145 100 MG Orally Jan 31, Active 1 cap yeimy every 12 hrs 2016 with food Pen Mehama [facility] 01195736985 31G X 8 MM SQ Aug 16, Active as 11/14" twice a day 2016 directed (bid) BD Pen ND 0 31.156 SQ december Active as times a day 10, directed (tid) [address] [facility] 85813025636 Multivitamin Active 1 tablet Iron Orally Once a day Benadryl Allergy ND 59281697596 25 MG Orally Active 1 tablet once every night as need ed Ultram [facility] 45014046418 50 mg Orally November 03, Active 1 table t twice a day 2014 as needed (bid) Trulicity [facility] 26557767713 0.75mg/0.5ml sq Jan 31, Active on ce a every 2 wks 2017 week as directed Diabetes Support [facility] 68424018262 THERAPY PACK Active not Orally defined [place] 3 [place] 48644535138 1000 MG Orally Active 1 cap yeimy Once a day Symbicort ND 77779694990 80-4.5 MCG/ACT Jul 24, Active 2 p uffs Inhalation Twice [address] [facility] 78174544138 60 MG/ML Feb 14, Active as Subcutaneous 2016 directed every 6 months Linzess ND 00573693521 72 mcg orally November 21, Active 1 caps ule Daily 2017 Viibryd ND 50325722883 10 mg Orally Active 1 table t Once a day with food Omeprazole ND 61818601423 20MG by mouth November Active 1 t ablet once a day 2015 Sanctura ND 0 20 mg by mouth Jul 16, Active 1 tablet Once a day 2013 Marycarmen BD ultra ND 0 4mm x 32g Active as fine pen needles intradermally d irected three times a day (tid) Macrobid [facility] 51918134485 100 mg Orally Apr 26, Active 1 cap yeimy twice a day 2016 with food (bid) Potassimin [facility] 33465003333 75 MG Orally Active 1 ta blet Once a day Pravastatin ND 73154224393 20 mg Orally Active 1 t ablet Sodium once every night Multi-betic [facility] 60909309463 - Orally Active not Diabetes defined Victoza [facility] 91390061982 6MG/ML SQ daily Active 1.[address] [facility] 08784080068 - Orally Active not Control/Go-Less defined Cayenne [facility] 29935934217 450 MG Orally Active not defined Allergy Relief [facility] 77046847107 25 MG Orally Active 1 tablet every 8 hrs as needed Tumeric ND 0 Active not defined Niacin [facility] 47239705032 250 MG Orally Active 1 tabl et Once a day Linzess [facility] 26786719516 145 MCG Orally Active 1 cap yeimy Once a day SHIP MATE Thyroid [facility] 74630791583 120 MG Orally August Active 1 t ablet Once a day , on an 2018 empty stomach Fish Oil [facility] 42615149229 1000 MG Orally Active 1 ca psule Once a day Acidophilus [facility] 44155481506 - Orally Active not defined Aspir-81 [facility] 15002181807 81 MG Orally Active 1 tabl et Once a day Bactrim DS [facility] 45360280959 800-160 MG Jan 31, Active 1 tabl et Orally Twice a 2016 day Clopidogrel ND 98235155607 75 MG Orally Active 1 t ablet Bisulfate Once a day Myrbetriq ND 89583391221 50 mg Orally Aug 17, Active 1 tab let Once a day [address] [facility] 89390102286 125MCG orally Active 1 tablet Sodium daily Lisinopril ND 46492956760 20 mg Orally Active 1 ta blet twice a day (bid) Viibryd [facility] 49850273857 20 mg Orally May 03, Active 1 table t Once a day [address] [facility] 65389060470 500-20 MG Orally Sept Active 1 t ablet Twice a day , before 2015 meals Macrobid ND 73863410696 100 MG Orally Jun 01, Active 1 cap yeimy twice a day 2015 with food (bid) Vitamin D ND 12257170027 2000 UNIT Orally Active 5 tablets Once a day BuPROPion HCl ND 01784268689 75 MG Orally August Active 1 tablet daily 2016 Adipex-P [facility] 25801429596 37.5 MG Orally Jun 04, Active 1 ta blet Once a day 2014 One Touch ND 0 as directed bid Active use Glucometer with test strips and lancets Neurontin ND 75232599618 600 MG Orally November 03, Active 1 ta blet Three times a 2014 day CoQ-10 ND 60086154167 30 MG Orally Active 1 capsu le Once a day with a meal Fosamax ND 65763535327 70 MG Orally Active 1 table t weekly Zostavax [facility] 07222001340 73123 UNT/0.65ML May 11, Active as Subcutaneous one 2016 directe d time Vital Signs Date/Time: December 06, 2017 BMI 43.08 Index Weight 251.0 lbs Height 64 in Temperature 87 F Cardiac Monitoring Heart Rate 98.1 /min Blood Pressure Diastolic 55 mm Hg Blood Pressure Systolic 102 mm Hg Results Name Result Date Reference Range Unit Abnormali ty Flag Urinalysis (Urine Dipstick) ----Spec [place] 1.015 20171206 ----Turbidity clear 20171206 ----Glucose neg 20171206 ----Ketones neg 20171206 ----Blood neg 20171206 ----Bili neg 20171206 ----Color yellow 20171206 ----pH 7 20171206 ----Leuk Est neg 20171206 ----Nitrite neg 20171206 ----Urobilinogen 0.2 20171206 ----Protein neg 20171206 Summary Purpose eClinicalWorks Submission
--- OUTSIDE RECORDS SUMMARY | 2019-11-19 16:21 | XMS REPORT ---
[...] tive Problem Venous insufficiency I87.2 Active Assessment Urge incontinence of urine N39.41 A ctive Assessment Osteopenia of lumbar spine M85.88 A ctive Assessment PAD (peripheral artery disease) I73.9 Active Assessment Major depressive disorder, single F32.9 Active episode, unspecified Assessment Morbid (severe) obesity due to E66.01 Active excess calories Assessment Familial hypercholesterolemia E78.01 Active Assessment Vitamin D deficiency, unspecified E55.9 Active Assessment Adjustment insomnia F51.02 Active Assessment Drug-induced constipation K59.03 Ac tive Problem Type II or unspecified type diabetes E11.9 Active mellitus without mention of complication, not stated as uncontrolled Problem Female stress incontinence N39.3 A ctive Problem Benign essential hypertension I10 Active Problem Morbid obesity E66.01 Active Problem Chronic idiopathic constipation K59.04 Active Assessment Other specified hypothyroidism E03.8 Active Problem Familial hypercholesterolemia E78.01 Active Problem Allergic rhinitis due to pollen J30.1 Active Problem Coronary artery disease involving I25.10 Active [place] coronary artery of [place] heart without angina pectoris Problem Other chronic [...] End Status Dosage System Date Date Neurontin [facility] 36965441589 600 MG Orally November 03, Active 1 ta blet Three times a 2014 day Cymbalta [facility] 72310568594 30 MG Orally Active 1 caps ule Once a day VESIcare [facility] 58453602986 10 MG Orally Jun 01, Active 1 tabl et Once a day 2015 [place] 3 [facility] 87101874055 1000 MG Orally Active 1 cap yeimy Once a day Trulicity [facility] 76533413139 0.75mg/0.5ml sq Jan 31, Active on ce a every 2 wks 2016 week as directed AZO Bladder [facility] 99729522016 - Orally Active not Control/Go-Less defined Vimovo [facility] 35800595597 500-20 MG Orally Mar Active 1 t ablet Twice a day , before 2015 meals Omeprazole [facility] 89896353271 20MG by mouth November Active 1 t ablet once a day 2015 CoQ-10 ND 20349164945 30 MG Orally Active 1 capsu le Once a day with a meal Fish Oil ND 95403297109 1000 MG Orally Active 1 ca psule Once a day Diabetes Support [facility] 23515861838 THERAPY PACK Active not Orally defined Pentazocine-Nalo ND 12039763547 50-0.5 MG Oral Acti ve not xone HCl defined Cayenne [facility] 78101222349 450 MG Orally Active not defined Vitamin D ND 32353145490 2000 UNIT Orally Active 5 tablets Once a day Linzess [facility] 35665374081 145 MCG Orally Active 1 cap yeimy Once a day Linzess [facility] 08324456597 72 mcg orally November 21, Active 1 caps ule Daily 2017 Macrobid [facility] 24277921657 100 MG Orally Jan 31, Active 1 cap yeimy every 12 hrs 2016 with food Niacin ND 55867614974 250 MG Orally Active 1 tabl et Once a day Levothyroxine ND 18425497006 125MCG orally Active 1 tablet Sodium daily Marycarmen BD ultra NDC 0 4mm x 32g Active as fine pen needles intradermally d irected three times a day (tid) Zostavax [facility] 99663103902 41589 UNT/0.65ML May 11, Active as Subcutaneous one 2016 directe d time Vitamin B-12 ND 93554233156 1000 MCG by Active 1 t ablet mouth Once a day Fosfree [facility] [address]-29 - Orally once Active 2 ta blet every night Ultram [facility] 97226933730 50 mg Orally November 03, Active 1 table t twice a day 2014 as needed (bid) Sanctura NDC 0 20 mg by mouth Jul 16, Active 1 tablet Once a day 2013 Restoril ND 52913704767 15 MG Orally November 21, Active 1 caps ule Once a day 2017 at bedtime as needed BuPROPion HCl ND 99626208784 75 MG Orally August Active 1 tablet daily 2016 Calcium + D [facility] 75372543948 600-200 MG-UNIT Active 2 tablet Orally twice a with food day (bid) Potassimin ND 91284219407 75 MG Orally Active 1 ta blet Once a day Tumeric NDC 0 Active not defined Clopidogrel [facility] 42398668546 75 MG Orally Active 1 t ablet Bisulfate Once a day Darifenacin ND 20987791961 15 MG Orally Active 2 t ablet Hydrobromide ER Once a day with liquid Viibryd ND 34878224140 10 mg Orally Active 1 table t Once a day with food Viibryd ND 12941286985 40MG Orally Active 1 tablet daily Pen [place] ND 49655497153 31G X 8 MM SQ Aug 16, Active as 11/14" twice a day 2016 directed (bid) One A Day Multi NDC 0 by mouth once a Active as Vitamin day directed Flintstones Plus ND 67545653449 Multivitamin Active 1 tablet Iron Orally Once a day Adipex-P ND 61833348886 37.5 MG Orally Jun 04, Active 1 ta blet Once a day 2014 LEVI MAKER Thyroid ND 62528346092 120 MG Orally August Active 1 t ablet Once a day , on an 2017 empty stomach Prolia ND 13788784693 60 MG/ML Feb 14, Active as Subcutaneous 2017 directed every 6 months Macrobid [facility] 17064820756 100 mg Orally Apr 26, Active 1 cap yeimy twice a day 2016 with food (bid) Bactrim DS ND 29613621287 800-160 MG Jan 31, Active 1 tabl et Orally Twice a 2016 day Allergy Relief ND 46927326282 25 MG Orally Active 1 tablet every 8 hrs as needed Viibryd ND 08921161153 20 mg Orally May 03, Active 1 table t Once a day 2016 with food BD Pen NDC 0 31.156 SQ december Active as times a day , directed (tid) 2013 Naproxen ND 82909647786 500MG Orally Active 1 tabl et twice a day (bid) Pravastatin ND 52616342638 20 mg Orally Active 1 t ablet Sodium once every night Victoza ND 38031845271 6MG/ML SQ daily Active 1.8 mg Acidophilus ND 98256063540 - Orally Active not defined Acyclovir ND 89044192676 400 MG Orally November 03, Active 1 ta blet Three times a 2014 day Osteo Bi-Flex ND 67897677157 - Orally Active not Triple Strength defined [place] ND 71150795128 5-325 MG Orally September Active 1 ta blet three times a 20, as needed day (tid) 2014 One Touch NDC 0 as directed bid Active use Glucometer with test strips and lancets Myrbetriq [facility] 14622261857 50 mg Orally Aug 17, Active 1 tab let Once a day 2017 Multi-betic [facility] 64872536558 - Orally Active not Diabetes defined Fosamax [facility] 61046364569 70 MG Orally Active 1 table t weekly Lisinopril [facility] 77578635011 20 mg Orally Active 1 ta blet twice a day (bid) Benadryl Allergy [facility] 46897096249 25 MG Orally Active 1 tablet once every night as need ed Cinnamon [facility] 53756034643 500 MG Orally Active not defined Symbicort [facility] 84967801552 80-4.5 MCG/ACT Jul 24, Active 2 p uffs Inhalation Twice 2014 day -81 [facility] 53521551476 81 MG Orally Active 1 tabl et Once a day Macrobid [facility] 14207717664 100 MG Orally Jun 01, Active 1 cap yeimy twice a day 2016 with food (bid) Vital Signs Date/Time: December 14, 2017 BMI 42.80 Index Weight 249.4 lbs Height 64 in Temperature 98.9 F Cardiac Monitoring Heart Rate 81 /min Blood Pressure Diastolic 68 mm Hg Blood Pressure Systolic 141 mm Hg Results No Known Results Summary Purpose eClinicalWorks Submission
--- OUTSIDE RECORDS SUMMARY | 2019-11-19 16:21 | XMS REPORT ---
[...] incontinence of urine N39.41 A ctive Assessment Slow transit constipation K59.01 Ac tive Assessment Familial hypercholesterolemia E78.01 Active Assessment Morbid (severe) obesity due to E66.01 Active excess calories Assessment Other specified hypothyroidism E03.8 Active Assessment Anxiety F41.9 Active Assessment Osteopenia of lumbar spine M85.88 A ctive Assessment Essential (primary) hypertension I10 Active Assessment Vitamin D deficiency, unspecified E55.9 Active Problem Type II or unspecified type diabetes E11.9 Active mellitus without mention of complication, not stated as uncontrolled Problem Female stress incontinence N39.3 A ctive Problem Benign essential hypertension I10 Active Problem Morbid obesity E66.01 Active Problem Chronic idiopathic constipation K59.04 Active Assessment Major depressive disorder, single F32.9 Active episode, unspecified Problem Familial hypercholesterolemia E78.01 Active Problem Allergic rhinitis due to pollen J30.1 Active Problem Coronary artery disease involving I25.10 Active [place] coronary artery of [place] heart without angina pectoris Problem Other chronic [...] Start End Status Dosage System Date Date Pravastatin [facility] 19774824610 20 mg Orally Active 1 t ablet Sodium once every night Allergy Relief [facility] 73153559302 25 MG Orally Active 1 tablet every 8 hrs as needed Viibryd [facility] 73513665753 10 mg Orally Active 1 table t Once a day with food Vitamin B-12 [facility] 76155593217 1000 MCG by Active 1 t ablet mouth Once a day Fosfree [facility] [address]-99 - Orally once Active 2 ta blet every night Flintstones Plus [facility] 57410056910 Multivitamin Active 1 tablet Iron Orally Once a day Calcium + D [facility] 62830734260 600-200 MG-UNIT Active 2 tablet Orally twice a with food day (bid) Potassimin [facility] 66716127353 75 MG Orally Active 1 ta blet Once a day Viibryd [facility] 67281611808 20 mg Orally May 03, Active 1 table t Once a day 2016 with food AZO Bladder [facility] 07567188408 - Orally Active not Control/Go-Less defined Myrbetriq ND 92265432798 50 mg Orally Aug 17, Active 1 tab let Once a day 2017 CoQ-10 ND 59194729014 30 MG Orally Active 1 capsu le Once a day with a meal Cymbalta ND 25761376650 30 MG Orally Active 1 caps ule Once a day Victoza ND 80030892285 6MG/ML SQ daily Active 1.8 mg Dutch John [facility] 21330876373 5-325 MG Orally September Active 1 ta blet three times a , as needed day (tid) 2014 Marycarmen BD ultra ND 0 4mm x 32g Active as fine pen needles intradermally d irected three times a day (tid) Vitamin D [facility] 52534063353 2000 UNIT Orally Active 5 tablets Once a day Pen [place] [facility] 62464724909 31G X 8 MM SQ Aug 16, Active as 5/16" twice a day 2016 directed (bid) Acyclovir [facility] 93860414302 400 MG Orally November 03, Active 1 ta blet Three times a 2014 day Fosamax [facility] 84788870070 70 MG Orally Active 1 table t weekly Aspir-81 ND 35154141188 81 MG Orally Active 1 tabl et Once a day Osteo Bi-Flex [facility] 52909115532 - Orally Active not Triple Strength defined Diabetes Support [facility] 60479709651 THERAPY PACK Active not Orally defined [place] 3 [facility] 73426074744 1000 MG Orally Active 1 cap yeimy Once a day Symbicort [facility] 93314630213 80-4.5 MCG/ACT Jul 24, Active 2 p uffs Inhalation Twice 2014 a day Macrobid [facility] 15575994350 100 MG Orally Jan 31, Active 1 cap yeimy every 12 hrs 2016 with food Linzess ND 76374726749 145 MCG Orally Active 1 cap yeimy Once a day Omeprazole ND 08541277092 20MG by mouth November Active 1 t ablet once a day 2015 Levothyroxine [facility] 21150390810 125MCG orally Active 1 tablet Sodium daily Benadryl Allergy ND 24395728175 25 MG Orally Active 1 tablet once every night as need ed VESIcare [facility] 01951952828 10 MG Orally Jun 01, Active 1 tabl et Once a day 2015 Multi-betic [facility] 23398893373 - Orally Active not Diabetes defined Ultram [facility] 25853898591 50 mg Orally November 03, Active 1 table t twice a day 2014 as needed (bid) Vimovo [facility] 41221671927 500-20 MG Orally Sept Active 1 t ablet Twice a day , before 2015 meals One Touch NDC 0 as directed bid Active use Glucometer with test strips and lancets Viibryd [facility] 36020946447 40MG Orally Active 1 tablet daily Zostavax [facility] 07128827145 51014 UNT/0.65ML May 11, Active as Subcutaneous one 2016 directe d time Prolia [facility] 69174098180 60 MG/ML Feb 14, Active as Subcutaneous 2016 directed every 6 months Darifenacin ND 68516100582 15 MG Orally Active 2 t ablet Hydrobromide ER Once a day with liquid Tumeric ND 0 Active not defined Niacin [facility] 13464920180 250 MG Orally Active 1 tabl et Once a day Linzess [facility] 26522191495 72 mcg orally November 21, Active 1 caps ule Daily 2017 Lisinopril ND 31094893552 20 mg Orally Active 1 ta blet twice a day (bid) Sanctura ND 0 20 mg by mouth Jul 16, Active 1 tablet Once a day 2013 Cayenne [facility] 76259367355 450 MG Orally Active not defined Pentazocine-Nalo [facility] 95277927783 50-0.5 MG Oral Acti ve not xone HCl defined Neurontin ND 86970861006 600 MG Orally November 03, Active 1 ta blet Three times a 2014 day Restoril ND 48639696107 15 MG Orally November 21, Active 1 caps ule Once a day 2017 at bedtime as needed [employer]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 Thyroid ND 92018586901 120 MG Orally August Active 1 t ablet Once a day , on an 2018 empty stomach Macrobid [facility] 35541402646 100 mg Orally Apr 26, Active 1 cap yeimy twice a day 2016 with food (bid) Clopidogrel ND 81572860335 75 MG Orally Active 1 t ablet Bisulfate Once a day Trulicity [facility] 87273641488 0.75mg/0.5ml sq Jan 31, Active on ce a every 2 wks 2016 week as directed One A Day Multi NDC 0 by mouth once a Active as Vitamin day directed Naproxen ND 22918058051 500MG Orally Active 1 tabl et twice a day (bid) Cinnamon ND 36119231340 500 MG Orally Active not defined Adipex-P ND 59975528492 37.5 MG Orally Jun 04, Active 1 ta blet Once a day 2014 Fish Oil ND 32252439377 1000 MG Orally Active 1 ca psule Once a day Bactrim DS ND 77013800770 800-160 MG Jan 31, Active 1 tabl et Orally Twice a 2016 day Macrobid ND 84930856339 100 MG Orally Jun 01, Active 1 cap yeimy twice a day 2015 with food (bid) BD Pen NDC 0 31.156 SQ december Active as times a day 10, directed (tid) 2013 BuPROPion HCl ND 92432940822 75 MG Orally August Active 1 tablet daily 2016 Acidophilus ND 65334419096 - Orally Active not defined Vital Signs Date/Time: December 13, 2017 BMI 42.74 Index Weight 249.0 lbs Height 64 in Temperature 98.7 F Cardiac Monitoring Heart Rate 76 /min Blood Pressure Diastolic 53 mm Hg Blood Pressure Systolic 114 mm Hg Results No Known Results Summary Purpose eClinicalWorks Submission
--- OUTSIDE RECORDS SUMMARY | 2019-11-19 16:22 | XMS REPORT ---
[...] tive Problem Venous insufficiency I87.2 Active Assessment Major depressive disorder, single F32.9 Active episode, unspecified Assessment Urge incontinence of urine N39.41 A ctive Assessment Familial hypercholesterolemia E78.01 Active Assessment Other specified hypothyroidism E03.8 Active Assessment Vitamin D deficiency, unspecified E55.9 Active Assessment Pain in left knee M25.562 Active Assessment Drug-induced constipation K59.03 Ac tive Assessment Osteopenia of lumbar spine M85.88 A ctive Assessment Pain in right knee M25.561 Active Problem Type II or unspecified type E11.9 Active diabetes mellitus without mention of complication, not stated as uncontrolled Problem Female stress incontinence N39.3 A ctive Problem Benign essential hypertension I10 Active Problem Morbid obesity E66.01 Active Problem Chronic idiopathic constipation K59.04 Active Assessment Morbid obesity E66.01 Active Problem Familial hypercholesterolemia E78.01 Active Problem Allergic rhinitis due to pollen J30.1 Active Problem Coronary artery disease involving I25.10 Active [place] coronary artery of [place] heart without angina pectoris Problem Other chronic [...] Start End Status Dosage System Date Date Victoza [facility] 36954808854 6MG/ML SQ daily Active 1.8 mg Linzess [facility] 41097860493 145 MCG Orally Active 1 cap yeimy Once a day Calcium + D [facility] 00134664855 600-200 MG-UNIT Active 2 tablet Orally twice a with food day (bid) [place] 3 [facility] 48755222370 1000 MG Orally Active 1 cap yeimy Once a day Tumeric NDC 0 Active not defined Levothyroxine [facility] 84898255164 125MCG orally Active 1 tablet Sodium daily Omeprazole [facility] 57330849755 20MG by mouth November Active 1 t ablet once a day 2015 Pentazocine-Nalo [facility] 32903904154 50-0.5 MG Oral Acti ve not xone HCl defined Fosamax [facility] 89277844177 70 MG Orally Active 1 table t weekly Vitamin D [facility] 64785174934 2000 UNIT Orally Active 5 tablets Once a day Marycarmen BD ultra NDC 0 4mm x 32g Active as fine pen needles intradermally d irected three times a day (tid) BusPIRone HCl [facility] 84863566013 15 MG Oral Active SAUD E 1 TABLET BY MOUTH TWICE A DAY Acidophilus ND 62497840980 - Orally Active not defined NovoFine [facility] 83566816448 32G X 6 MM SQ November Active as daily , directed 2017 Cinnamon ND 35204368935 500 MG Orally Active not defined Aspir-81 [facility] 66927779197 81 MG Orally Active 1 tabl et Once a day Diabetes Support [facility] 84629278815 THERAPY PACK Active not Orally defined Trulicity [facility] 49802495770 0.75mg/0.5ml sq Jan 31, Active on ce a every 2 wks 2016 week as directed Viibryd [facility] 57033411688 10 mg Orally Active 1 table t Once a day with food Macrobid [facility] 06739705803 100 MG Orally Jan 31, Active 1 cap yeimy every 12 hrs 2016 with food Niacin [facility] 62408489395 250 MG Orally Active 1 tabl et Once a day Fish Oil ND 10612532058 1000 MG Orally Active 1 ca psule Once a day Benadryl Allergy ND 64888018117 25 MG Orally Active 1 tablet once every night as need ed Linzess [facility] 69394726796 72 mcg orally November 21, Active 1 caps ule Daily 2017 Potassimin [facility] 86990362331 75 MG Orally Active 1 ta blet Once a day Pen [place] [facility] 51128300989 31G X 8 MM SQ Aug 16, Active as 5/16" twice a day 2017 directed (bid) DRIP BOX TENDER Thyroid ND 93569936310 90 MG Orally August Active 1 ta blet Once a day 12, on an 2018 empty stomach Viibryd [facility] 34308029559 40MG Orally Active 1 tablet daily VESIcare [facility] 13352286007 10 MG Orally Jun 01, Active 1 tabl et Once a day 2016 Zostavax [facility] 48676527466 67447 UNT/0.65ML May 11, Active as Subcutaneous one 2016 directe d time HydrOXYzine HCl [facility] 75249954832 25 MG Oral Active T MARIAH 1 TABLET BY MOUTH EVERY DAY NEEDED Pravastatin [facility] 77615808568 20 mg Orally Active 1 t ablet Sodium once every night Symbicort ND 13544784891 80-4.5 MCG/ACT Jul 24, Active 2 p uffs Inhalation Twice 2014 a day Naproxen ND 20946346101 500MG Orally Active 1 tabl et twice a day (bid) Vitamin B-12 ND 21867745334 1000 MCG by Active 1 t ablet mouth Once a day Restoril ND 75850486113 15 MG Orally November 21, Active 1 caps ule Once a day 2017 at bedtime as needed CoQ-10 ND 66627722213 30 MG Orally Active 1 capsu le Once a day with a meal Ultram ND 57319651667 50 mg Orally November 03, Active 1 table t twice a day 2014 as needed (bid) Acyclovir ND 07883963357 400 MG Orally November 03, Active 1 ta blet Three times a 2014 day Flintstones Plus [facility] 32110729863 Multivitamin Active 1 tablet Iron Orally Once a day Myrbetriq ND 36954126320 50 mg Orally Aug 17, Active 1 tab let Once a day 2017 One Touch NDC 0 as directed bid Active use Glucometer with test strips and lancets Cay[place] ND 37676213421 450 MG Orally Active not defined AZO Bladder [facility] 36155558375 - Orally Active not Control/Go-Less defined Sanctura ND 0 20 mg by mouth Jul 16, Active 1 tablet Once a day 2013 Neurontin ND 59259449514 600 MG Orally November 03, Active 1 ta blet Three times a 2014 Saxenda ND 88276847742 18 MG/3ML November Active 3.0mg Subcutaneous , daily 2017 BuPROPion HCl ND 74614060949 75 MG Orally August Active 1 tablet daily 2016 Multi-betic ND 31307388556 - Orally Active not Diabetes defined Cymbalta ND 88685034876 60 MG Orally Active 1 caps ule Once a day Allergy Relief ND 34728789624 25 MG Orally Active 1 tablet every 8 hrs as needed Vimovo ND 48476554372 500-20 MG Orally Sept Active 1 t ablet Twice a day , before 2015 meals Bactrim DS [facility] 56027553907 800-160 MG Jan 31, Active 1 tabl et Orally Twice a 2017 day One A Day Multi NDC 0 by mouth once a Active as Vitamin day directed Osteo Bi-Flex [facility] 08098617539 - Orally Active not Triple Strength defined Clopidogrel [facility] 56966340521 75 MG Orally Active 1 t ablet Bisulfate Once a day Aripiprazole [facility] 81654653658 10 MG Oral Active TAKE 1 TABLET BY MOUTH EVERY DAY Lisinopril [facility] 75081073913 20 mg Orally Active 1 ta blet twice a day (bid) Viibryd [facility] 47115159096 20 mg Orally May 03, Active 1 table t Once a day 2016 with food Fosfree [facility] [address]-04 - Orally once Active 2 ta blet every night Marion [facility] 84170042942 5-325 MG Orally September Active 1 ta blet three times a 20, as needed day (tid) 2014 Vital Signs Date/Time: December 27, 2017 BMI 43.22 Index Weight 251.8 lbs Height 64 in Temperature 98.6 F Cardiac Monitoring Heart Rate 85 /min Blood Pressure Diastolic 60 mm Hg Blood Pressure Systolic 122 mm Hg Results No Known Results Summary Purpose eClinicalWorks Submission
--- OUTSIDE RECORDS SUMMARY | 2019-11-19 16:23 | XMS REPORT ---
:1955 Author Organization e[employer]Works Care Team Providers Name Role Phone Zohra Tripp Provider Role Unavailable Allergies, Adverse Reactions, Alerts [...] diabetes mellitus E13.9 Active without complications Problem Age-related osteoporosis without M81.0 Active current [...] Simple chronic bronchitis J41.0 Ac tive Assessment Urinary tract infection without N39.0 Active hematuria, site unspecified Problem Type II or unspecified type diabetes [...] Problem Coronary artery disease involving I25.10 Active [place] coronary artery of [place] heart without angina pectoris Problem Osteoarthritis of [...] Start End Status Dosage System Date Date Lisinopril [facility] 01059091627 20 mg Orally Active 1 ta blet twice a day (bid) Cinnamon ND 93473667975 500 MG Orally Active not defined Meloxicam ND 71030231718 15 MG Orally Active 1 tab let Once a day Cephalexin ND 88647862383 500 mg Orally May 20, Active 1 t ablet every 12 hrs 2017 Sanctura NDC 0 20 mg by mouth Jul 16, Active 1 tablet Once a day 2013 Lipan ND 50401049610 5-325 MG Orally September Active 1 ta blet three times a 20, as needed day (tid) [address] [facility] 03213338812 40MG Orally Active 1 tablet daily VESIcare ND 93181357280 10 MG Orally Jun 01, Active 1 tabl et Once a day 2015 Duloxetine HCl ND 20931783481 30 MG Orally Active 1 capsule Once a day Sleep Aid ND 86544406119 25 MG Orally Active 1 tab let Once a day at bedtime as needed Linzess ND 87866322459 72 mcg orally November 21, Active 1 caps ule Daily 2017 Potassimin ND 53465624076 75 MG Orally Active 1 ta blet Once a day disabled placard ND 0 n/a n/a daily December Active a s 12, directed 2017 One Touch NDC 0 as directed bid Active use Glucometer with test strips and lancets Calcium + D ND 60654966072 600-200 MG-UNIT Active 2 tablet Orally twice a with food day (bid) AZO Bladder [facility] 28476046308 - Orally Active not Control/Go-Less defined Macrobid ND 78549076155 100 MG Orally Jan 31, Active 1 cap yeimy every 12 hrs 2016 with food Cymbalta ND 75906476221 60 MG Orally Active 1 caps ule Once a day Pen [place] ND 81424175011 31G X 8 MM SQ Aug 16, Active as 11/14" twice a day 2016 directed (bid) Flintstones Plus [facility] 33454690991 Multivitamin Active 1 tablet Iron Orally Once a day Symbicort ND 77477161173 80-4.5 MCG/ACT Jul 24, Active 2 p uffs Inhalation Twice 2014 a day 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 Thyroid ND 20513281575 90 MG Orally August Active 1 ta blet Once a day , on an 2017 empty stomach Vitamin B-[address] [facility] 37949738521 1000 MCG by Active 1 t ablet mouth Once a day Restoril ND 64633535755 15 MG Orally November 21, Active 1 caps ule Once a day 2017 at bedtime as needed Osteo Bi-Flex [facility] 98818422241 - Orally Active not Triple Strength defined Allergy Relief ND 65600333785 25 MG Orally Active 1 tablet every 8 hrs as needed One A Day Multi NDC 0 by mouth once a Active as Vitamin day directed Saxenda ND 38569334269 18 MG/3ML November Active 3.0mg Subcutaneous , daily 2018 Tumeric NDC 0 Active not defined Vimovo ND 55491685930 500-20 MG Orally Sept Active 1 t ablet Twice a day , before 2015 meals NovoFine ND 92110407049 32G X 6 MM SQ November Active as daily , directed 2017 [place] 3 ND 19027537715 1000 MG Orally Active 1 cap yeimy Once a day Ultram ND 58115864537 50 mg Orally November 03, Active 1 table t twice a day 2014 as needed (bid) Viibryd ND 97364542441 20 mg Orally May 03, Active 1 table t Once a day 2016 with food Neurontin ND 88500709160 600 MG Orally November 03, Active 1 ta blet Three times a 2014 day Levaquin ND 34702601047 500 mg Orally Feb 06, Active 1 tab let Once a day 2017 Acyclovir ND 28541381959 400 MG Orally November 03, Active 1 ta blet Three times a 2014 Benadryl Allergy ND 40822403853 25 MG Orally Active 1 tablet once every night as need ed Pentazocine-Nalo ND 43475258842 50-0.5 MG Oral Acti ve not xone HCl defined Marycarmen BD ultra NDC 0 4mm x 32g Active as fine pen needles intradermally d irected three times a day (tid) Trulicity ND 72375435902 0.75mg/0.5ml sq Jan 31, Active on ce a every 2 wks 2016 week as directed Myrbetriq ND 31835781971 50 mg Orally Aug 17, Active 1 tab let Once a day [address] [facility] 83499888710 10 mg Orally Active 1 table t Once a day with food Levothyroxine ND 41797123710 125MCG orally Active 1 tablet Sodium daily Uribel ND 43907796043 118 MG Orally December Active 1 caps ule three times a , day (tid) [address] [facility] 88188301900 100 mg Orally December Active 1 cap yeimy every 12 hrs , with food [address] [facility] 41062242245 10 MG Oral Active TAKE 1 TABLET BY MOUTH EVERY DAY Clopidogrel ND 77124113472 75 MG Orally Active 1 t ablet Bisulfate Once a day Fish Oil ND 72035228567 1000 MG Orally Active 1 ca psule Once a day Acidophilus ND 77781829449 - Orally Active not defined Omeprazole ND 03410071730 20MG by mouth November Active 1 t ablet once a day [address] [facility] 70226010247 2000 UNIT Orally Active 5 tablets Once a day Bactrim DS [facility] 43834559970 800-160 MG Jan 31, Active 1 tabl et Orally Twice a 2016 day Pravastatin ND 28446828006 20 mg Orally Active 1 t ablet Sodium once every night HydrOXYzine HCl [facility] 88260507606 25 MG Oral Active T MARIAH 1 TABLET BY MOUTH EVERY DAY NEEDED Prolia [facility] 41095800739 60 MG/ML Oct 11, Active as Subcutaneous 2018 directed everry 6 months Aspir-[address] [facility] 72235184970 81 MG Orally Active 1 tabl et Once a day Fosamax [facility] 03326544357 70 MG Orally Active 1 table t weekly BusPIRone HCl [facility] 73202974840 30 MG Orally bid Activ e TAKE 1 TABLET BY MOUTH TWICE A DAY Victoza [facility] 65452884259 6MG/ML SQ daily Active 1.[address] [facility] [address]-77 - Orally once Active 2 ta blet every night Zostavax [facility] 66206702341 08228 UNT/0.65ML May 11, Active as Subcutaneous one 2016 directe d time Diabetes Support [facility] 27155850966 THERAPY PACK Active not Orally defined Naproxen [facility] 47213247267 500MG Orally Active 1 tabl et twice a day (bid) Multi-betic [facility] 55577024759 - Orally Active not Diabetes defined Niacin [facility] 24068064979 250 MG Orally Active 1 tabl et Once a day BuPROPion HCl [facility] 13130099348 75 MG Orally March Active 1 tablet daily 2016 CoQ-[address] [facility] 86615714970 30 MG Orally Active 1 capsu le Once a day with a meal Cayenne [facility] 15576551742 450 MG Orally Active not defined Lomaira [facility] 52541699254 8 MG Orally Feb 20, Active 1 tablet Three times a 2018 before day meals Vital Signs Date/Time: May 20, 2018 BMI 44.54 Index Weight 259.5 lbs Height 64 in Temperature 98.5 F Cardiac Monitoring Heart Rate 77 /min Blood Pressure Diastolic 77 mm Hg Blood Pressure Systolic 131 mm Hg Results No Known Results Summary Purpose eClinicalWorks Submission
--- OUTSIDE RECORDS SUMMARY | 2019-11-19 16:23 | XMS REPORT ---
[...] complications Assessment Polyosteoarthritis, 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 Assessment Drug-induced constipation K59.03 Ac tive Assessment Adjustment insomnia F51.02 Active Problem Age-related osteoporosis without M81.0 Active [...] Simple chronic bronchitis J41.0 Ac tive Assessment Anxiety F41.9 Active Assessment Familial hypercholesterolemia E78.01 Active Assessment Dysuria R30.0 Active Assessment NERY (obstructive sleep apnea) G47.33 Active Assessment Other specified hypothyroidism E03.8 Active Assessment Morbid (severe) obesity due to E66.01 Active excess calories Assessment Type 2 diabetes mellitus without E11.9 Active complications Assessment Vitamin D deficiency, unspecified E55.9 Active Assessment Major depressive disorder, single F32.9 [...] Problem Coronary artery disease involving I25.10 Active [place] coronary artery of [place] heart without angina pectoris Problem Osteoarthritis of [...] Status Dosage System Date Date Diabetes Support [facility] [id number] THERAPY PACK Active not Orally defined Vitamin D [facility] 35355025333 2000 UNIT Orally Active 5 tablets Once a day Naproxen [facility] 93479457541 500MG Orally Active 1 tabl et twice a day (bid) Viibryd [facility] 38445237368 20 mg Orally May 03, Active 1 table t Once a day 2016 with food Viibryd [facility] 91380499430 10 mg Orally Active 1 table t Once a day with food Cymbalta [facility] 39260603814 60 MG Orally Active 1 caps ule Once a day NovoFine [facility] 95000616974 32G X 6 MM SQ November Active as daily 2017 Aspir-81 [facility] 95368402362 81 MG Orally Active 1 tabl et Once a day Marycarmen BD ultra NDC 0 4mm x 32g Active as fine pen needles intradermally d irected three times a day (tid) BuPROPion HCl ND 51512730216 75 MG Orally August Active 1 tablet daily 2016 Cayenne [facility] 96072902266 450 MG Orally Active not defined One A Day Multi NDC 0 by mouth once a Active as Vitamin day directed [place] 3 ND 39642516947 1000 MG Orally Active 1 cap yeimy Once a day Linzess [facility] 41981637714 72 mcg orally November 21, Active 1 caps ule Daily 2017 Clopidogrel ND 38087546732 75 MG Orally Active 1 t ablet Bisulfate Once a day Vimovo [facility] 55073977174 500-20 MG Orally Sept Active 1 t ablet Twice a day , before 2015 meals Acidophilus [facility] 58353262907 - Orally Active not defined AZO Bladder [facility] 13784121087 - Orally Active not Control/Go-Less defined Pentazocine-Nalo [facility] 45881669183 50-0.5 MG Oral Acti ve not xone HCl defined Niacin [facility] 57848359562 250 MG Orally Active 1 tabl et Once a day Omeprazole ND 23619435740 20MG by mouth November Active 1 t ablet once a day 2015 Fish Oil [facility] 63073099458 1000 MG Orally Active 1 ca psule Once a day Pravastatin ND 44821940636 20 mg Orally Active 1 t ablet Sodium once every night Viibryd [facility] 30632268468 40MG Orally Active 1 tablet daily VESIcare [facility] 28529143315 10 MG Orally Jun 01, Active 1 tabl et Once a day 2015 Sanctura NDC 0 20 mg by mouth Jul 16, Active 1 tablet Once a day 2013 Bactrim DS [facility] 45581478141 800-160 MG Jan 31, Active 1 tabl et Orally Twice a 2016 day Victoza ND 89469199632 6MG/ML SQ daily Active 1.8 mg Neurontin ND 26127353004 600 MG Orally November 03, Active 1 ta blet Three times a 2014 day Levothyroxine ND 08149776008 125MCG orally Active 1 tablet Sodium daily Benadryl Allergy ND 21112810111 25 MG Orally Active 1 tablet once every night as need ed BusPIRone HCl ND 88836444283 15 MG Oral Active SAUD E 1 TABLET BY MOUTH TWICE A DAY Cinnamon ND 87275467594 500 MG Orally Active not defined One Touch [facility] 0 as directed bid Active use Glucometer with test strips and lancets Lisinopril ND 85730339757 20 mg Orally Active 1 ta blet twice a day (bid) Macrobid [facility] 58132663056 100 mg Orally December Active 1 cap yeimy every 12 hrs , with food 2017 Potassimin [facility] 64922388925 75 MG Orally Active 1 ta blet Once a day Ultram ND 65804122573 50 mg Orally November 03, Active 1 table t twice a day 2014 as needed (bid) Acyclovir ND 40847367311 400 MG Orally November 03, Active 1 ta blet Three times a 2014 day Aripiprazole [facility] 56104753160 10 MG Oral Active TAKE 1 TABLET BY MOUTH EVERY DAY [employer] Thyroid [facility] 81272181161 90 MG Orally August Active 1 ta blet Once a day , on an 2018 empty stomach Osteo Bi-Flex [facility] 45240644667 - Orally Active not Triple Strength defined Zostavax [facility] 89669435303 24197 UNT/0.65ML May 11, Active as Subcutaneous one 2016 directe d time Fosamax [facility] 04362325450 70 MG Orally Active 1 table t weekly Flintstones Plus [facility] 18390452076 Multivitamin Active 1 tablet Iron Orally Once a day Allergy Relief [facility] 55300569097 25 MG Orally Active 1 tablet every 8 hrs as needed [place] ND 81262485115 15 MG Orally November 21, Active 1 caps ule Once a day 2018 at bedtime as needed Macrobid [facility] 19474043210 100 MG Orally Jan 31, Active 1 cap yeimy every 12 hrs 2016 with food Symbicort [facility] 40016786560 80-4.5 MCG/ACT Jul 24, Active 2 p uffs Inhalation Twice 2014 a day CoQ-10 [facility] 05485855274 30 MG Orally Active 1 capsu le Once a day with a meal Trulicity [facility] 67940906405 0.75mg/0.5ml sq Jan 31, Active on ce a every 2 wks 2017 week as directed Calcium + D [facility] 47469735392 600-200 MG-UNIT Active 2 tablet Orally twice a with food day (bid) Multi-betic ND 54313625822 - Orally Active not Diabetes defined Fosfree [facility] [address]-67 - Orally once Active 2 ta blet every night Tumeric NDC 0 Active not defined Pen Lizella [facility] 77756227489 31G X 8 MM SQ Aug 16, Active as 11/14" twice a day 2016 directed (bid) Saxenda [facility] 76066029816 18 MG/3ML November Active 3.0mg Subcutaneous , daily 2017 HydrOXYzine HCl [facility] 65998544529 25 MG Oral Active T MARIAH 1 TABLET BY MOUTH EVERY DAY NEEDED disabled placard [place] 0 n/a n/a daily December Active a s , directed 2017 Myrbetriq [facility] 03058623579 50 mg Orally Aug 17, Active 1 tab let Once a day 2017 Vitamin B-12 [facility] 59488085888 1000 MCG by Active 1 t ablet mouth Once a day Kelso [facility] 19064301383 5-325 MG Orally September Active 1 ta blet three times a 20, as needed day (tid) 2014 Vital Signs Date/Time: January 10, 2018 BMI 41.88 Index Weight 244.0 lbs Height 64 in Temperature 98.0 F Cardiac Monitoring Heart Rate 88 /min Blood Pressure Diastolic 50 mm Hg Blood Pressure Systolic 149 mm Hg Results Name Result Date Reference Range Unit Abnormali ty Flag Urinalysis (Urine Dipstick) ----Spec [place] 1.005 20180110 ----Turbidity clear 20180110 ----Glucose neg 20180110 ----Ketones neg 20180110 ----Blood neg 20180110 ----Bili neg 20180110 ----Color gene 20180110 ----pH 6 20180110 ----Leuk Est 70 20180110 ----Nitrite neg 20180110 ----Urobilinogen 0.2 20180110 ----Protein 30 20180110 Summary Purpose eClinicalWorks Submission
--- OUTSIDE RECORDS SUMMARY | 2019-11-19 16:24 | XMS REPORT ---
[...] diabetes mellitus E13.9 Active without complications Assessment Drug-induced constipation K59.03 Ac tive Assessment Adjustment insomnia F51.02 Active Assessment NERY (obstructive sleep apnea) G47.33 Active Assessment Osteopenia of lumbar spine M85.88 [...] Simple chronic bronchitis J41.0 Ac tive Assessment Vitamin D deficiency, unspecified E55.9 Active Assessment Familial hypercholesterolemia E78.01 Active Assessment Spondylosis of lumbosacral region M47.817 Active without myelopathy or radiculopathy Assessment Urge incontinence of urine N39.41 A ctive Assessment Dysuria R30.0 Active Assessment Other specified hypothyroidism E03.8 Active Assessment Essential (primary) hypertension I10 Active Assessment Type 2 diabetes mellitus without E11.9 Active complications Assessment Morbid (severe) obesity due to E66.01 Active excess calories Assessment Major depressive disorder, single F32.9 Active episode, unspecified Problem Type II or unspecified type E11.9 [...] Problem Coronary artery disease involving I25.10 Active [place] coronary artery of [place] heart without angina pectoris Problem Osteoarthritis of [...] Start End Status Dosage System Date Date Myrbetriq [facility] 98103545793 50 mg Orally Aug 17, Active 1 tab let Once a day 2017 [place] NDC 0 20 mg by mouth Jul 16, Active 1 tablet Once a day 2013 [place] ND 98762458392 500-20 MG Orally Sept Active 1 t ablet Twice a day 20, before 2016 meals Osteo Bi-Flex [facility] 25739140068 - Orally Active not Triple Strength defined [employer] Thyroid ND 69703325701 90 MG Orally August Active 1 ta blet Once a day 12, on an 2018 empty stomach Zostavax [facility] 43927270029 66442 UNT/0.65ML May 11, Active as Subcutaneous one 2016 directe d time Omeprazole ND 66734629769 20MG by mouth November Active 1 t ablet once a day 2015 Levaquin ND 18944778069 500 mg Orally Feb 06, Active 1 tab let Once a day 2017 Marycarmen BD ultra NDC 0 4mm x 32g Active as fine pen needles intradermally d irected three times a day (tid) BuPROPion HCl ND 02484584192 75 MG Orally August Active 1 tablet daily 2016 Saxenda ND 43354422879 18 MG/3ML November Active 3.0mg Subcutaneous daily 2017 Levothyroxine ND 45326715640 125MCG orally Active 1 tablet Sodium daily Lisinopril ND 79610548273 20 mg Orally Active 1 ta blet twice a day (bid) NovoFine [facility] 92034477129 32G X 6 MM SQ November Active as daily 2017 Pentazocine-Nalo [facility] 71872929252 50-0.5 MG Oral Acti ve not xone HCl defined One A Day Multi NDC 0 by mouth once a Active as Vitamin day directed Pravastatin [facility] 44600737145 20 mg Orally Active 1 t ablet Sodium once every night Niacin [facility] 04085154602 250 MG Orally Active 1 tabl et Once a day AZO Bladder [facility] 38242341487 - Orally Active not Control/Go-Less defined Vitamin D [facility] 56691786225 2000 UNIT Orally Active 5 tablets Once a day Trulicity [facility] 87158574085 0.75mg/0.5ml sq Jan 31, Active on ce a every 2 wks 2017 week as directed Fish Oil [facility] 88648300361 1000 MG Orally Active 1 ca psule Once a day Aspir-81 [facility] 61510161448 81 MG Orally Active 1 tabl et Once a day disabled placard NDC 0 n/a n/a daily December Active a s directed 2017 Naproxen [facility] 42950293183 500MG Orally Active 1 tabl et twice a day (bid) Viibryd [facility] 11917437340 40MG Orally Active 1 tablet daily Fosfree [facility] [address]-44 - Orally once Active 2 ta blet every night Diabetes Support [facility] 11732363352 THERAPY PACK Active not Orally defined Fosamax ND 23819014045 70 MG Orally Active 1 table t weekly Linzess [facility] 15219990070 72 mcg orally November 21, Active 1 caps ule Daily 2017 Tumeric NDC 0 Active not defined Uribel ND 49097938328 118 MG Orally December Active 1 caps ule three times a 26, day (tid) 2017 CoQ-10 ND 34243902910 30 MG Orally Active 1 capsu le Once a day with a meal [place] 3 [facility] 95041525366 1000 MG Orally Active 1 cap yeimy Once a day [place] ND 16230237707 15 MG Orally November 21, Active 1 caps ule Once a day 2017 at bedtime as needed Ultram ND 62810218334 50 mg Orally November 03, Active 1 table t twice a day 2014 as needed (bid) HydrOXYzine HCl [facility] 13652421662 25 MG Oral Active T MARIAH 1 TABLET BY MOUTH EVERY DAY NEEDED Victoza [facility] 26820845723 6MG/ML SQ daily Active 1.8 mg Flintstones Plus [facility] 12128371275 Multivitamin Active 1 tablet Iron Orally Once a day Vitamin B-12 [facility] 84981003364 1000 MCG by Active 1 t ablet mouth Once a day Potassimin [facility] 12227247732 75 MG Orally Active 1 ta blet Once a day Calcium + D [facility] 53746809017 600-200 MG-UNIT Active 2 tablet Orally twice a with food day (bid) Allergy Relief [facility] 21718681253 25 MG Orally Active 1 tablet every 8 hrs as needed Multi-betic [facility] 69289707105 - Orally Active not Diabetes defined Viibryd [facility] 85121277815 20 mg Orally May 03, Active 1 table t Once a day 2016 with food Acyclovir ND 47769231343 400 MG Orally November 03, Active 1 ta blet Three times a 2014 day Macrobid [facility] 03779486296 100 MG Orally Jan 31, Active 1 cap yeimy every 12 hrs 2016 with food Clopidogrel ND 88399785896 75 MG Orally Active 1 t ablet Bisulfate Once a day Bactrim DS [facility] 26107253519 800-160 MG Jan 31, Active 1 tabl et Orally Twice a 2016 day Cymbalta [facility] 66203922432 60 MG Orally Active 1 caps ule Once a day Neurontin ND 85938248894 600 MG Orally November 03, Active 1 ta blet Three times a 2014 day Acidophilus [facility] 88942778334 - Orally Active not defined VESIcare ND 02170431590 10 MG Orally Jun 01, Active 1 tabl et Once a day 2015 One Touch NDC 0 as directed bid Active use Glucometer with test strips and lancets Macrobid [facility] 82364982406 100 mg Orally December Active 1 cap yeimy every 12 hrs 12, with food 2017 Cayenne [facility] 43619217972 450 MG Orally Active not defined BusPIRone HCl ND 10211532633 30 MG Orally bid Activ e TAKE 1 TABLET BY MOUTH TWICE A DAY Viibryd [facility] 15777090346 10 mg Orally Active 1 table t Once a day with food Pen [place] [facility] 96360261130 31G X 8 MM SQ Aug 16, Active as 11/14" twice a day 2016 directed (bid) Benadryl Allergy [facility] 20388253316 25 MG Orally Active 1 tablet once every night as need ed Cinnamon [facility] 93897430389 500 MG Orally Active not defined Symbicort [facility] 16024611453 80-4.5 MCG/ACT Jul 24, Active 2 p uffs Inhalation Twice 2014 day Aripiprazole [facility] 72573925510 10 MG Oral Active TAKE 1 TABLET BY MOUTH EVERY DAY [place] [facility] 54940709283 5-325 MG Orally September Active 1 ta blet three times a 20, as needed day (tid) 2014 Vital Signs Date/Time: Feb 06, 2018 BMI 40.68 Index Weight 237 lbs Height 64 in Temperature 98.8 F Cardiac Monitoring Heart Rate 83 /min Blood Pressure Diastolic 90 mm Hg Blood Pressure Systolic 107 mm Hg Results Name Result Date Reference Range Unit Abnormali ty Flag Urinalysis (Urine Dipstick) ----Spec [place] 1.005 20180206 ----Turbidity cloudy 20180206 ----Glucose neg 20180206 ----Ketones neg 20180206 ----Blood 5-10 20180206 ----Bili neg 20180206 ----Color gene 20180206 ----pH 6 20180206 ----Leuk Est 125 20180206 ----Nitrite neg [id number] ----Urobilinogen 0.2 20180206 ----Protein 5 [id number] Summary Purpose eClinicalWorks Submission
--- OUTSIDE RECORDS SUMMARY | 2019-11-19 16:24 | XMS REPORT ---
:1955 Author Organization [employer] Care Team Providers Name Role Phone TommyTej dupreeah Provider Role Unavailable Allergies, Adverse Reactions, Alerts Substance Reaction Event Type Bactrim Info Not Available Drug Allergy Problems Problem Type Condition Code Onset Dates Condition Statu s Problem Adjustment disorder with depressed F43.21 Active mood Problem Polyosteoarthritis, 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 Problem Stress incontinence in female N39.3 Active Problem OA (osteoarthritis) M19.90 Active Problem Morbid obesity due to excess E66.01 Active calories Problem Obesity, unspecified obesity E66.9 Active severity, unspecified obesity type Problem Neuropathy G62.9 Active Problem Essential (primary) hypertension I10 Active Problem Hypothyroidism, unspecified E03.9 Active Problem Other specified diabetes mellitus E13.9 Active without complications Problem Constipation, unspecified K59.00 Ac tive Assessment Memory change R41.3 Active Assessment PAD (peripheral artery disease) I73.9 Active Assessment Age-related osteoporosis without M81.0 Active current pathological fracture Assessment Gastroesophageal reflux disease K21.9 Active without esophagitis Problem Chronic constipation K59.00 Active Problem Age-related osteoporosis without M81.0 Active current pathological fracture Problem Chronic obstructive pulmonary J44.9 Active disease, unspecified COPD type Problem Vitamin D deficiency, unspecified E55.9 Active Problem Venous insufficiency I87.2 Active Problem Anxiety F41.9 Active Problem Mixed incontinence urge and stress N39.46 Active Problem Chronic idiopathic constipation K59.04 Active Problem Familial hypercholesterolemia E78.01 Active Problem Simple chronic bronchitis J41.0 Ac tive Problem Pure hypercholesterolemia, E78.00 A ctive unspecified Assessment Type 2 diabetes mellitus without E11.9 Active complications Assessment Essential (primary) hypertension I10 Active Assessment Vitamin D deficiency, unspecified E55.9 Active Assessment Polyosteoarthritis, 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 Problem Female stress incontinence N39.3 A ctive Assessment Morbid (severe) obesity due to E66.01 Active excess calories Assessment Major depressive disorder, single F32.9 Active episode, unspecified Assessment Dysuria R30.0 Active Assessment Other specified hypothyroidism E03.8 Active Problem Benign essential hypertension I10 Active Problem Morbid obesity E66.01 Active Problem Esophageal reflux K21.9 Active Problem Mixed hyperlipidemia E78.2 Active Problem Other chronic pain G89.29 Active Problem Type II or unspecified type diabetes E11.9 Active mellitus without mention of complication, not stated as uncontrolled Problem Allergic rhinitis due to pollen J30.1 Active Problem Coronary artery disease involving I25.10 Active [place] coronary artery of [place] heart without angina pectoris Problem Urge incontinence N39.41 Active Problem Slow transit constipation K59.01 Ac tive Problem NERY (obstructive sleep apnea) G47.33 Active Problem Osteoarthritis of both knees, M17.0 Active unspecified osteoarthritis type Problem Memory change R41.3 Active Problem Type 2 diabetes mellitus without [...] A ctive Problem Hypothyroidism E03.9 Active Problem Chronic obstructive pulmonary J44.9 Active disease, unspecified Problem Other specified hypothyroidism E03.8 Active Problem Morbid (severe) obesity due to E66.01 Active excess calories Problem Gastro-esophageal reflux disease K21.9 Active without esophagitis Problem Anxiety disorder, unspecified F41.9 Active Problem Major depressive disorder, single F32.9 Active episode, unspecified Medications Medication Code Code Instructions Start End Status Dosage System Date Date Macrobid [facility] 11172728879 100 MG Orally Jan 31, Active 1 cap yeimy every 12 hrs 2016 with food Lisinopril [facility] 80415237913 20 mg Orally Active 1 ta blet twice a day (bid) Prolia [facility] 84942229744 60 MG/ML Jul 19, Active 60mg/ml Subcutaneous 2019 every 6 months Pravastatin ND 50999867978 20 mg Orally Active 1 t ablet Sodium once every night Victoza [facility] 16637126282 6MG/ML SQ daily Active 1.[address] [facility] 71086085499 20MG by mouth November Active 1 t ablet once a day [address] [facility] 79812048936 400 MG Orally Jul 12, Active 2 c apsule twice a day 2019 (bid) Cinnamon ND 60869338929 500 MG Orally Active not defined Levaquin ND 38021183354 500 mg Orally Feb 06, Active 1 tab let Once a day 2017 Aripiprazole ND 07691769040 10 MG Oral Active TAKE 1 TABLET BY MOUTH EVERY DAY BusPIRone HCl ND 88554955044 30 MG Orally bid Activ e TAKE 1 TABLET BY MOUTH TWICE A DAY Diabetes Support [facility] 22274667587 THERAPY PACK Active not Orally defined Marycarmen BD ultra NDC 0 4mm x 32g Active as fine pen needles intradermally d irected three times a day (tid) Tumeric NDC 0 Active not defined Restoril ND 59156022587 15 MG Orally November 21, Active 1 caps ule Once a day 2018 at bedtime as needed Viibryd ND 61462322928 20 mg Orally May 03, Active 1 table t Once a day 2016 with food Myrbetriq ND 30043202372 50 mg Orally Aug 17, Active 1 tab let Once a day 2017 [place] ND 63720414232 8 MG Orally Feb 20, Active 1 tablet Three times a 2018 before day meals Fosfree [facility] [address]-69 - Orally once Active 2 ta blet every night Vimovo ND 66047072835 500-20 MG Orally Sept Active 1 t ablet Twice a day , before 2015 meals Osteo Bi-Flex [facility] 40175296625 - Orally Active not Triple Strength defined Levothyroxine ND 90734481800 125MCG orally Active 1 tablet Sodium daily Macrobid [facility] 71792445580 100 mg Orally December Active 1 cap yeimy every 12 hrs 12, with food [address] [facility] 11536319735 70 MG Orally Active 1 table t weekly Acidophilus ND 30494779646 - Orally Active not defined Viibryd ND 81857827200 10 mg Orally Active 1 table t Once a day with food Levaquin ND 27155418459 500 mg Orally Jul 19, Active 1 tab let Once a day [address] [place] [facility] 36704676735 5-325 MG Orally September Active 1 ta blet three times a 20, as needed day (tid) 2014 Duloxetine HCl ND 75485884472 30 MG Orally Active 1 capsule Once a day NovoFine [facility] 76104798791 32G X 6 MM SQ November Active as daily , directed 2017 VESIcare ND 39524801088 10 MG Orally Jun 01, Active 1 tabl et Once a day 2015 Calcium + D ND 13786071287 600-200 MG-UNIT Active 2 tablet Orally twice a with food day (bid) disabled placard NDC 0 n/a n/a daily December Active a s , directed 2017 [place] ND 92683504353 450 MG Orally Active not defined Neurontin ND 15566369373 600 MG Orally November 03, Active 1 ta blet Three times a 2014 day BuPROPion HCl ND 90121680820 75 MG Orally August Active 1 tablet daily 2016 Pentazocine-Nalo ND 71209037043 50-0.5 MG Oral Acti ve not xone HCl defined Linzess ND 29806012159 72 mcg orally Active 1 caps ule Daily Prolia ND 19673691711 60 MG/ML Apr 11, Active as Subcutaneous 2017 directed everry 6 months Fish Oil ND 53801101230 1000 MG Orally Active 1 ca psule Once a day Uribel ND 17683203865 118 MG Orally December Active 1 caps ule three times a , day (tid) 2017 One Touch NDC 0 as directed bid Active use Glucometer with test strips and lancets Vitamin B-12 ND 11596183537 1000 MCG by Active 1 t ablet mouth Once a day One A Day Multi NDC 0 by mouth once a Active as Vitamin day directed HydrOXYzine HCl ND 85425552460 25 MG Oral Active T MARIAH 1 TABLET BY MOUTH EVERY DAY NEEDED Viibryd ND 93072679727 40MG Orally Active 1 tablet daily [place] NDC 0 20 mg by mouth Jul 16, Active 1 tablet Once a day 2013 Ultram ND 25247650667 50 mg Orally November 03, Active 1 table t twice a day 2014 as needed (bid) Acyclovir ND 91605676602 400 MG Orally November 03, Active 1 ta blet Three times a 2014 day Flintstones Plus ND 94918817967 Multivitamin Active 1 tablet Iron Orally Once a day Multi-betic ND 77120469807 - Orally Active not Diabetes defined Trulicity ND 15159914229 0.75mg/0.5ml sq Jan 31, Active on ce a every 2 wks 2016 week as directed Vitamin D [facility] 98763648334 2000 UNIT Orally Active 5 tablets Once a day [place] [address] [facility] 69584351936 1000 MG Orally Active 1 cap yeimy Once a day Omeprazole ND 88294918803 20 mg Orally Jul 19, Active 1 ca psule Once a day 2019 Allergy Relief ND 23954454317 25 MG Orally Active 1 tablet every 8 hrs as needed Clopidogrel ND 05838193678 75 mg Orally Active 1 t ablet Bisulfate Once a day Bactrim DS [facility] 37120825281 800-160 MG Jan 31, Active 1 tabl et Orally Twice a 2016 day AZO Bladder [facility] 11348253220 - Orally Active not Control/Go-Less defined Potassimin [facility] 97904646083 75 MG Orally Active 1 ta blet Once a day Symbicort [facility] 89017582242 80-4.5 MCG/ACT Jul 24, Active 2 p uffs Inhalation Twice [address] [facility] 73701307840 500MG Orally Active 1 tabl et twice a day (bid) Niacin [facility] 13059536563 250 MG Orally Active 1 tabl et Once a day Saxenda [facility] 01138750765 18 MG/3ML November Active 3.0mg Subcutaneous , daily [address] [facility] 52699468635 98366 UNT/0.65ML May 11, Active as Subcutaneous one 2016 directe d time Macrobid [facility] 27709017064 100 mg Orally Jul 11Jul Active 1 cap yeimy every 12 hrs 2018 18, with food 2018 Cephalexin ND 99655146881 500 mg Orally May 20, Active 1 t ablet every 12 hrs [address] [facility] 13549794759 60 MG Orally Active 1 caps ule Once a day Sleep Aid [facility] 44183397246 25 MG Orally Active 1 tab let Once a day at bedtime as needed Benadryl Allergy 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 35509248213 90 MG Orally August Active 1 ta blet Once a day 12, on an 2018 empty stomach Aspir-[address] [facility] 79252293656 81 MG Orally Active 1 tabl et Once a day Pen [place] [facility] 66861308679 31G X 8 MM SQ Aug 16, Active as 11/14" twice a day 2016 directed (bid) CoQ-[address] [facility] 26741960663 30 MG Orally Active 1 capsu le Once a day with a meal Vital Signs Date/Time: Jul 19, 2018 BMI 47.20 Index Weight 275.0 lbs Height 64 in Temperature 99.1 F Cardiac Monitoring Heart Rate 90 /min Blood Pressure Diastolic 70 mm Hg Blood Pressure Systolic 118 mm Hg Results No Known Results Summary Purpose [employer] Submission
--- OUTSIDE RECORDS SUMMARY | 2019-11-19 16:24 | XMS REPORT ---
[...] Simple chronic bronchitis J41.0 Ac tive Assessment Familial hypercholesterolemia E78.01 Active Assessment NERY (obstructive sleep apnea) G47.33 Active Assessment Urge incontinence of urine N39.41 A ctive Assessment Dysuria R30.0 Active Assessment Morbid (severe) obesity due to E66.01 Active excess calories Assessment Essential (primary) hypertension I10 Active Assessment Type 2 diabetes mellitus without E11.9 Active complications Assessment Major depressive disorder, single F32.9 Active [...] Problem Coronary artery disease involving I25.10 Active [place] coronary artery of [place] heart without angina pectoris Problem Osteoarthritis of [...] d irected three times a day (tid) Ultram ND 12895374263 50 mg Orally November 03, Active 1 table t twice a day 2014 as needed (bid) Cymbalta ND 89863407522 60 MG Orally Active 1 caps ule Once a day Saxenda ND 23370336446 18 MG/3ML November Active 3.0mg Subcutaneous , daily 2017 Symbicort ND 93743421913 80-4.5 MCG/ACT Jul 24, Active 2 p uffs Inhalation Twice 2014 a day Viibryd ND 57512809083 10 mg Orally Active 1 table t Once a day with food Linzess ND 17314447503 72 mcg orally November 21, Active 1 caps ule Daily [address] [facility] 82133637339 500-20 MG Orally Sept Active 1 t ablet Twice a day 20, before 2015 meals SOLID [employer]OPELL[employer] PROC[employer]OR Thyroid [facility] 55570169199 90 MG Orally August Active 1 ta blet Once a day 12, on an 2018 empty stomach Lisinopril [facility] 12511979648 20 mg Orally Active 1 ta blet twice a day (bid) Allergy Relief ND 43629944773 25 MG Orally Active 1 tablet every 8 hrs as needed HydrOXYzine HCl [facility] 85104318661 25 MG Oral Active T MARIAH 1 TABLET BY MOUTH EVERY DAY NEEDED Osteo Bi-Flex [facility] 16912881566 - Orally Active not Triple Strength defined Clopidogrel [facility] 34080930971 75 MG Orally Active 1 t ablet Bisulfate Once a day Vitamin D [facility] 28600500529 2000 UNIT Orally Active 5 tablets Once a day Aspir-[address] [facility] 28445249995 81 MG Orally Active 1 tabl et Once a day Multi-betic [facility] 70477822483 - Orally Active not Diabetes defined AZO Bladder [facility] 87298518030 - Orally Active not Control/Go-Less defined Levothyroxine [facility] 77476447223 125MCG orally Active 1 tablet Sodium daily Cayenne [facility] 67059632796 450 MG Orally Active not defined [place] [address] [facility] 87217105504 1000 MG Orally Active 1 cap yeimy Once a day Fish Oil [facility] 44158639800 1000 MG Orally Active 1 ca psule Once a day Benadryl Allergy [facility] 47426882005 25 MG Orally Active 1 tablet once every night as need ed Fosfree [facility] [address]-43 - Orally once Active 2 ta blet every night Pravastatin [facility] 30614334918 20 mg Orally Active 1 t ablet Sodium once every night Viibryd [facility] 51188302213 40MG Orally Active 1 tablet daily Uribel [facility] 33153113929 118 MG Orally December Active 1 caps ule three times a , day (tid) [address] [facility] 87802048430 100 MG Orally Jan 31, Active 1 cap yeimy every 12 hrs 2016 with food Neurontin ND 36529546362 600 MG Orally November 03, Active 1 ta blet Three times a [address] [facility] 94086848718 6MG/ML SQ daily Active 1.[address] [facility] 06829528738 20 mg Orally May 03, Active 1 table t Once a day 2016 with food BusPIRone HCl ND 12737542307 15 MG Oral Active SAUD E 1 TABLET BY MOUTH TWICE A DAY Potassimin ND 70356201427 75 MG Orally Active 1 ta blet Once a day Omeprazole NDC 29134412667 20MG by mouth November Active 1 t ablet once a day 2015 Diabetes Support [facility] 83403163534 THERAPY PACK Active not Orally defined Flintstones Plus ND 32070549286 Multivitamin Active 1 tablet Iron Orally Once a day disabled placard NDC 0 n/a n/a daily December Active a s , directed 2017 VESIcare ND 93083887927 10 MG Orally Jun 01, Active 1 tabl et Once a day 2015 Vitamin B-12 ND 82223086982 1000 MCG by Active 1 t ablet mouth Once a day Acyclovir ND 24064922955 400 MG Orally November 03, Active 1 ta blet Three times a 2014 day CoQ-10 ND 26676730020 30 MG Orally Active 1 capsu le Once a day with a meal [place] ND 83247139289 5-325 MG Orally September Active 1 ta blet three times a , as needed day (tid) 2014 One Touch NDC 0 as directed bid Active use Glucometer with test strips and lancets Niacin ND 86081943283 250 MG Orally Active 1 tabl et Once a day Pentazocine-Nalo ND 79714378149 50-0.5 MG Oral Acti ve not xone HCl defined [place] ND 0 20 mg by mouth Jul 16, Active 1 tablet Once a day 2013 Bactrim DS ND 95799516257 800-160 MG Jan 31, Active 1 tabl et Orally Twice a 2016 day NovoFine ND 91131727824 32G X 6 MM SQ November Active as daily , directed 2017 BuPROPion HCl ND 25048329315 75 MG Orally August Active 1 tablet daily 2016 Zostavax ND 44622260384 04129 UNT/0.65ML May 11, Active as Subcutaneous one 2016 directe d time Myrbetriq ND 98946587229 50 mg Orally Aug 17, Active 1 tab let Once a day 2018 Tumeric NDC 0 Active not defined Naproxen ND 09830782058 500MG Orally Active 1 tabl et twice a day (bid) Acidophilus ND 27110309402 - Orally Active not defined Aripiprazole ND 40895577458 10 MG Oral Active TAKE 1 TABLET BY MOUTH EVERY DAY Trulicity ND 34957046443 0.75mg/0.5ml sq Jan 31, Active on ce a every 2 wks 2016 week as directed Macrobid ND 52358708131 100 mg Orally December Active 1 cap yeimy every 12 hrs , with food 2017 Restoril ND 73381407269 15 MG Orally November 21, Active 1 caps ule Once a day 2017 at bedtime as needed Pen [place] ND 87429898070 31G X 8 MM SQ Aug 16, Active as 11/14" twice a day 2016 directed (bid) Fosamax ND 62239265812 70 MG Orally Active 1 table t weekly Cinnamon ND 01837085991 500 MG Orally Active not defined One A Day Multi ND 0 by mouth once a Active as Vitamin day directed Calcium + D [facility] 60212531503 600-200 MG-UNIT Active 2 tablet Orally twice a with food day (bid) Vital Signs Date/Time: January 24, 2018 BMI 40.88 Index Weight 238.2 lbs Height 64 in Temperature 98.6 F Cardiac Monitoring Heart Rate 90 /min Blood Pressure Diastolic 59 mm Hg Blood Pressure Systolic 149 mm Hg Results Name Result Date Reference Range Unit Abnormali ty Flag Urinalysis (Urine Dipstick) ----Spec [place] 1.010 20180124 ----Turbidity clear 20180124 ----Glucose neg 20180124 ----Ketones neg 20180124 ----Blood neg 20180124 ----Bili neg 20180124 ----Color gene 20180124 ----pH 6.5 20180124 ----Leuk Est 15 20180124 ----Nitrite neg 20180124 ----Urobilinogen 0.2 20180124 ----Protein neg 20180124 Summary Purpose eClinicalWorks Submission
--- OUTSIDE RECORDS SUMMARY | 2019-11-19 16:25 | XMS REPORT ---
[...] M47.817 Active without myelopathy or radiculopathy Assessment Essential (primary) hypertension I10 Active Assessment Dysuria R30.0 Active Assessment Other specified hypothyroidism E03.8 Active Assessment Major depressive disorder, single F32.9 Active episode, unspecified Assessment Allergic rhinitis due to pollen J30.1 Active Assessment Morbid (severe) obesity due to E66.01 Active excess calories Assessment Drug-induced constipation K59.03 Ac tive Problem Type II or unspecified type E11.9 [...] Problem Coronary artery disease involving I25.10 Active [place] coronary artery of [place] heart without angina pectoris Problem Osteoarthritis of [...] Active 1 tablet Once a day 2013 AZO Bladder [facility] 49811836310 - Orally Active not Control/Go-Less defined One A Day Multi NDC 0 by mouth once a Active as Vitamin day directed VESIcare ND 90044835558 10 MG Orally Jun 01, Active 1 tabl et Once a day 2015 Benadryl Allergy ND 58117646066 25 MG Orally Active 1 tablet once every night as need ed Linzess ND 88234239087 72 mcg orally November 21, Active 1 caps ule Daily 2017 Diabetes Support 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 17690131869 5-325 MG Orally September Active 1 ta blet three times a 20, as needed day (tid) 2014 Marycarmen BD ultra NDC 0 4mm x 32g Active as fine pen needles intradermally d irected three times a day (tid) CoQ-10 ND 69099287127 30 MG Orally Active 1 capsu le Once a day with a meal Niacin ND 35786153043 250 MG Orally Active 1 tabl et Once a day BuPROPion HCl ND 65301528570 75 MG Orally August Active 1 tablet daily 2016 Multi-betic [facility] 87509691472 - Orally Active not Diabetes defined Flintstones Plus [facility] 99195801287 Multivitamin Active 1 tablet Iron Orally Once a day BusPIRone HCl ND 87995470159 30 MG Orally bid Activ e TAKE 1 TABLET BY MOUTH TWICE A DAY Cymbalta ND 04230455498 60 MG Orally Active 1 caps ule Once a day Acyclovir ND 57396173216 400 MG Orally November 03, Active 1 ta blet Three times a 2014 day Calcium + D [facility] 74643234935 600-200 MG-UNIT Active 2 tablet Orally twice a with food day (bid) Levaquin ND 89881429913 500 mg Orally Feb 06, Active 1 tab let Once a day [address] [facility] 10398997843 0.75mg/0.5ml sq Jan 31, Active on ce a every 2 wks 2017 week as directed Acidophilus ND 49971321296 - Orally Active not defined Restoril ND 34011373493 15 MG Orally November 21, Active 1 caps ule Once a day 2018 at bedtime as needed disabled placard ND 0 n/a n/a daily December Active a s 12, directed [address] [facility] 80177716508 86615 UNT/0.65ML May 11, Active as Subcutaneous one 2016 directe d time Lomaira ND 19368791976 8 MG Orally Feb 20, Active 1 tablet Three times a 2018 before day meals Fosfree [facility] [address]-11 - Orally once Active 2 ta blet every night Aspir-81 ND 74458850341 81 MG Orally Active 1 tabl et Once a day Aripiprazole ND 52315925068 10 MG Oral Active TAKE 1 TABLET BY MOUTH EVERY DAY One Touch NDC 0 as directed bid Active use Glucometer with test strips and lancets Cinnamon ND 74310904610 500 MG Orally Active not defined Neurontin ND 84885539305 600 MG Orally November 03, Active 1 ta blet Three times a 2014 day Ultram ND 44334030945 50 mg Orally November 03, Active 1 table t twice a day 2014 as needed (bid) Levothyroxine ND 19430451811 125MCG orally Active 1 tablet Sodium daily Macrobid [facility] 55468089458 100 MG Orally Jan 31, Active 1 cap yeimy every 12 hrs 2016 with food Myrbetriq ND 43235790175 50 mg Orally Aug 17, Active 1 tab let Once a day [address] [facility] 84925282059 10 mg Orally Active 1 table t Once a day with food Omeprazole ND 57670979223 20MG by mouth November Active 1 t ablet once a day [address] [facility] 57979183909 100 mg Orally December Active 1 cap yeimy every 12 hrs , with food [address] [facility] 26157638606 70 MG Orally Active 1 table t weekly Lisinopril ND 97051294055 20 mg Orally Active 1 ta blet twice a day (bid) Potassimin ND 56406701436 75 MG Orally Active 1 ta blet Once a day Naproxen ND 38903990440 500MG Orally Active 1 tabl et twice a day (bid) Viibryd [facility] 84088746651 20 mg Orally May 03, Active 1 table t Once a day 2016 with food Pentazocine-Nalo ND 76611329758 50-0.5 MG Oral Acti ve not xone HCl defined Pen O'[place]als [facility] 04189470089 31G X 8 MM SQ Aug 16, Active as 11/14" twice a day 2016 directed (bid) Tumeric NDC 0 Active not defined Vitamin B-12 ND 46898458191 1000 MCG by Active 1 t ablet mouth Once a day Vitamin D [facility] 74749136958 2000 UNIT Orally Active 5 tablets Once a day HydrOXYzine HCl [facility] 56712910427 25 MG Oral Active T MARIAH 1 TABLET BY MOUTH EVERY DAY NEEDED Pravastatin [facility] 36431889447 20 mg Orally Active 1 t ablet Sodium once every night Saxenda [facility] 24972336221 18 MG/3ML November Active 3.0mg Subcutaneous , daily [address] [facility] 63496343249 500-20 MG Orally Sept Active 1 t ablet Twice a day 20, before 2015 meals Cayenne [facility] 59370044081 450 MG Orally Active not defined Fish Oil [facility] 35281245793 1000 MG Orally Active 1 ca psule Once a day Allergy Relief [facility] 72290893284 25 MG Orally Active 1 tablet every 8 hrs as needed Victoza [facility] 86904936480 6MG/ML SQ daily Active 1.8 mg Symbicort [facility] 29147422276 80-4.5 MCG/ACT Jul 24, Active 2 p uffs Inhalation Twice 2014 a day [place] [address] [facility] 62206872427 1000 MG Orally Active 1 cap yeimy Once a day Bactrim DS [facility] 49350414606 800-160 MG Jan 31, Active 1 tabl et Orally Twice a 2016 day Viibryd [facility] 48537939291 40MG Orally Active 1 tablet daily Osteo Bi-Flex [facility] 34171606699 - Orally Active not Triple Strength defined Uribel [facility] 53807689393 118 MG Orally December Active 1 caps ule three times a , day (tid) 2017 Vital Signs Date/Time: Feb 20, 2018 BMI 40.85 Index Weight 238 lbs Height 64 in Temperature 98.0 F Cardiac Monitoring Heart Rate 93 /min Blood Pressure Diastolic 68 mm Hg Blood Pressure Systolic 108 mm Hg Results Name Result Date Reference Range Unit Abnormali ty Flag Urinalysis (Urine Dipstick) ----Spec [place] 1.020 20180220 ----Turbidity clear 20180220 ----Glucose neg 20180220 ----Ketones neg 20180220 ----Blood neg 20180220 ----Bili neg 20180220 ----Color yellow 20180220 ----pH 5 20180220 ----Leuk Est neg 20180220 ----Nitrite neg 20180220 ----Urobilinogen 0.2 20180220 ----Protein 15 [id number] venipuncture Summary Purpose eClinicalWorks Submission
--- OUTSIDE RECORDS SUMMARY | 2019-11-19 16:26 | XMS REPORT ---
:1955 Author Organization eClinicalWorks Care Team Providers Name Role Phone Tylermarlendiego Lorena Provider Role Unavailable Allergies No Known [...] K59.00 Active Problem Anxiety F41.9 Active Problem Chronic [...] Female stress incontinence N39.3 A ctive Assessment Other specified hypothyroidism E03.8 Active Problem Morbid obesity E66.01 Active Problem Esophageal reflux K21.9 Active Problem Mixed hyperlipidemia E78.2 Active Problem Hypothyroidism E03.9 Active Problem Allergic rhinitis due to pollen J30.1 Active Problem Benign essential hypertension I10 Active Problem Slow transit constipation K59.01 Ac tive Problem Coronary artery disease involving I25.10 Active [place] coronary artery of [place] heart without angina pectoris Problem Acquired hypothyroidism [...] Start End Status Dosage System Date Date [place] [facility] 69130298703 450 MG Orally Active not defined Benadryl Allergy ND 91715924793 25 MG Orally Active 1 tablet once every as needed night [employer] Thyroid ND 13220686746 90 MG Orally August Inactive 1 t ablet Once a day 12, on an 2017 empty stomach HydrOXYzine HCl ND 89993009040 25 MG Oral Active T MARIAH 1 TABLET BY MOUTH EVERY DAY NEEDED Victoza ND 46581226727 6MG/ML SQ daily Active 1.8 mg Viibryd ND 82531414560 10 mg Orally Active 1 table t Once a day with food disabled placard NDC 0 n/a n/a daily December Active a s , directed 2017 Omeprazole ND 72427367194 20MG by mouth November Active 1 t ablet once a day 2015 Macrobid ND 94495929071 100 mg Orally December Active 1 cap yeimy every 12 hrs , with food 2017 Cephalexin ND 57240997767 500 mg Orally May 20, Active 1 t ablet every 12 hrs 2017 One A Day Multi NDC 0 by mouth once Active a s Vitamin a day directed BuPROPion HCl ND 73201036656 75 MG Orally August Active 1 tablet daily 2016 Marycarmen BD ultra NDC 0 4mm x 32g Active as fine pen needles intradermally d irected three times a day (tid) Niacin [facility] 47173006490 250 MG Orally Active 1 tabl et Once a day [place] ND 15321120111 31G X 8 MM SQ Aug 16, Active as 11/14" twice a day 2017 directed (bid) Viibryd [facility] 77459455294 20 mg Orally May 03, Active 1 table t Once a day 2016 with food Lisinopril ND 90052620373 20 mg Orally Active 1 ta blet twice a day (bid) Prolia ND 39011360627 60 MG/ML Apr 11, Active as Subcutaneous 2017 directed everry 6 months Aspir-81 ND 50358532187 81 MG Orally Active 1 tabl et Once a day Gabapentin ND 53154623235 400 MG Orally Jul 12, Active 2 c apsule twice a day 2018 (bid) Osteo Bi-Flex [facility] 20647468760 - Orally Active not Triple Strength defined Cinnamon ND 79557118497 500 MG Orally Active not defined Lomaira ND 63975423155 8 MG Orally Feb 20, Active 1 tablet Three times a 2017 before day meals Fosamax ND 71921085522 70 MG Orally Active 1 table t weekly Tumeric NDC 0 Active not defined Levothyroxine ND 26807284739 125MCG orally Active 1 tablet Sodium daily Omeprazole ND 52016816986 20 mg Orally Jul 19, Active 1 ca psule Once a day 2019 Flintstones Plus [facility] 25877536895 Multivitamin Active 1 tablet Iron Orally Once a day Aripiprazole ND 61790314377 10 MG Oral Active TAKE 1 TABLET BY MOUTH EVERY DAY Pravastatin ND 37981070289 20 mg Orally Active 1 t ablet Sodium once every night Viibryd [facility] 48292062653 40MG Orally Active 1 tablet daily Naproxen ND 55268569078 500MG Orally Active 1 tabl et twice a day (bid) Myrbetriq ND 82277301138 50 mg Orally Aug 17, Active 1 tab let Once a day 2018 One Touch NDC 0 as directed Active use Glucometer with bid test strips and lancets Neurontin ND 04946605605 600 MG Orally November 03, Active 1 ta blet Three times a 2014 day Diabetes Support [facility] 66818271639 THERAPY PACK Active not Orally defined Pentazocine-Nalo ND 22980904271 50-0.5 MG Oral Acti ve not xone HCl defined Clopidogrel ND 53053530834 75 mg Orally Active 1 t ablet Bisulfate Once a day Naproxen ND 58868832275 375 MG Orally Active 1 tab let every 12 hrs with food or milk as needed Prolia ND 75256490038 60 MG/ML Jul 19, Active 60mg/ml Subcutaneous 2018 every 6 months Acyclovir ND 99385850176 400 MG Orally November 03, Active 1 ta blet Three times a 2014 day Restoril ND 00988195012 15 MG Orally November 21, Active 1 caps ule Once a day 2017 at bedtime as needed Bactrim DS ND 92850903480 800-160 MG Jan 31, Active 1 tabl et Orally Twice a 2016 day Upperco Thyroid ND 97515455147 90 MG Orally September Active 1 tablet Once a day 18, on an 2018 empty stomach Fosfree [facility] [address]-28 - Orally once Active 2 ta blet every night Cephalexin ND 48574598729 500 mg Orally Active 1 t ablet four times a day (qid) Calcium + D [facility] 06232241486 600-200 MG-UNIT Active 2 tablet Orally twice a with food day (bid) [place] NDC 0 20 mg by mouth Jul 16, Active 1 tablet Once a day 2013 Vitamin B-12 ND 35981364456 1000 MCG by Active 1 t ablet mouth Once a day CoQ-10 ND 80332003766 30 MG Orally Active 1 capsu le Once a day with a meal Fish Oil ND 11682782985 1000 MG Orally Active 1 ca psule Once a day Acidophilus ND 73795031843 - Orally Active not defined AZO Bladder [facility] 85162992051 - Orally Active not Control/Go-Less defined Uribel ND 99919039035 118 MG Orally December Active 1 caps ule three times a , day (tid) 2017 Saxenda ND 81924290111 18 MG/3ML November Active 3.0mg Subcutaneous , daily 2018 Ultram ND 95718863491 50 mg Orally November 03, Active 1 table t twice a day 2014 as needed (bid) Macrobid ND 32006748334 100 MG Orally Jan 31, Active 1 cap yeimy every 12 hrs 2016 with food Levaquin [facility] 89744358845 500 mg Orally Jul 19, Active 1 tab let Once a day 2018 Allergy Relief [facility] 28100363795 25 MG Orally Active 1 tablet every 8 hrs as needed Symbicort [facility] 48182443693 80-4.5 MCG/ACT Jul 24, Active 2 p uffs Inhalation 2014 Twice a day VESIcare [facility] 23942447056 10 MG Orally Jun 01, Active 1 tabl et Once a day 2016 Trulicity [facility] 88675016327 0.75mg/0.5ml sq Jan 31, Active on ce a every 2 wks 2017 week as directed Potassimin [facility] 64038817320 75 MG Orally Active 1 ta blet Once a day Multi-betic [facility] 88788348128 - Orally Active not Diabetes defined [place] 3 [facility] 12277858698 1000 MG Orally Active 1 cap yeimy Once a day Zostavax [facility] 65044378316 36899 May 11, Active as UNT/0.65ML 2016 directed Subcutaneous one time Linzess [facility] 24621957244 72 mcg orally Active 1 caps ule Daily Vimovo [facility] 20081163307 500-20 MG Sept Active 1 tablet Orally Twice a 20, before day 2015 meals NovoFine [facility] 08504931891 32G X 6 MM SQ November Active as daily , directed 2017 Duloxetine HCl [facility] 66101670260 30 MG Orally Active 1 capsule Once a day BusPIRone HCl [facility] 89290992093 30 MG Orally Active T MARIAH 1 bid TABLET BY MOUTH TWICE A DAY Sleep Aid [facility] 49177636669 25 MG Orally Active 1 tab let Once a day at bedtime as needed Levaquin [facility] 40291085475 500 mg Orally Feb 06, Active 1 tab let Once a day 2017 Vitamin D [facility] 61341830166 2000 UNIT Active 5 tablet s Orally Once a day [place] [facility] 47403906201 5-325 MG Orally September Active 1 ta blet three times a 20, as needed day (tid) 2014 Results No Known Results Summary Purpose eClinicalWorks Submission
--- OUTSIDE RECORDS SUMMARY | 2019-11-19 16:26 | XMS REPORT ---
[...] Simple chronic bronchitis J41.0 Ac tive Assessment Encounter for gynecological Z01.419 Active examination without abnormal finding Assessment Age-related osteoporosis without M81.0 Active current pathological fracture Assessment Breast screening Z12.31 Active Assessment Morbid (severe) obesity due to E66.01 Active excess calories Problem Type II or unspecified type E11.9 [...] Problem Coronary artery disease involving I25.10 Active [place] coronary artery of [place] heart without angina pectoris Problem Osteoarthritis of [...] tablet Once a day 2013 Benadryl Allergy [facility] 24544357255 25 MG Orally Active 1 tablet once every night as need ed Fosfree [facility] [address]-17 - Orally once Active 2 ta blet every night Marycarmen BD ultra NDC 0 4mm x 32g Active as fine pen needles intradermally d irected three times a day (tid) Macrobid [facility] 54801778926 100 MG Orally Jan 31, Active 1 cap yeimy every 12 hrs 2016 with food Acidophilus [facility] 48589804157 - Orally Active not defined Trulicity [facility] 08279120625 0.75mg/0.5ml sq Jan 31, Active on ce a every 2 wks 2017 week as directed Tumeric NDC 0 Active not defined Vitamin B-12 [facility] 92215128866 1000 MCG by Active 1 t ablet mouth Once a day Pen [place] [facility] 25228291359 31G X 8 MM SQ Aug 16, Active as 5/16" twice a day 2017 directed (bid) Potassimin [facility] 55635558093 75 MG Orally Active 1 ta blet Once a day Osteo Bi-Flex ND 20830919294 - Orally Active not Triple Strength defined Neurontin ND 91277055835 600 MG Orally November 03, Active 1 ta blet Three times a 2014 day Pentazocine-Nalo ND 83610722651 50-0.5 MG Oral Acti ve not xone HCl defined Niacin ND 39062935484 250 MG Orally Active 1 tabl et Once a day Viibryd [facility] 09701548921 10 mg Orally Active 1 table t Once a day with food CoQ-10 ND 60545083509 30 MG Orally Active 1 capsu le Once a day with a meal BuPROPion HCl ND 60674202108 75 MG Orally August Active 1 tablet daily 2016 Bactrim DS ND 68674507248 800-160 MG Jan 31, Active 1 tabl et Orally Twice a 2016 day Duloxetine HCl ND 04167385620 30 MG Orally Active 1 capsule Once a day Flintstones Plus [facility] 70306984163 Multivitamin Active 1 tablet Iron Orally Once a day Diabetes Support [facility] 37149342344 THERAPY PACK Active not Orally defined HOST/HOSTESS Thyroid ND 75400696597 90 MG Orally August Active 1 ta blet Once a day 12, on an 2017 empty stomach Uribel ND 30353929658 118 MG Orally December Active 1 caps ule three times a , day (tid) 2017 Cinnamon ND 29037461236 500 MG Orally Active not defined disabled placard NDC 0 n/a n/a daily December Active a s 12, directed 2017 HydrOXYzine HCl ND 79473428043 25 MG Oral Active T MARIAH 1 TABLET BY MOUTH EVERY DAY NEEDED Prolia ND 40130603923 60 MG/ML Apr 11, Active as Subcutaneous 2017 directed everry 6 months NovoFine ND 20261395892 32G X 6 MM SQ November Active as daily , directed 2017 One A Day Multi NDC 0 by mouth once a Active as Vitamin day directed Aspir-81 ND 03390798233 81 MG Orally Active 1 tabl et Once a day Victoza ND 45987917364 6MG/ML SQ daily Active 1.8 mg Sleep Aid ND 50008821339 25 MG Orally Active 1 tab let Once a day at bedtime as needed Viibryd [facility] 47129469599 20 mg Orally May 03, Active 1 table t Once a day 2016 with food Linzess ND 04439431974 72 mcg orally November 21, Active 1 caps ule Daily 2018 One Touch ND 0 as directed bid Active use Glucometer with test strips and lancets Acyclovir ND 15381484208 400 MG Orally November 03, Active 1 ta blet Three times a 2014 day Vitamin D [facility] 71503429958 2000 UNIT Orally Active 5 tablets Once a day [place] 3 ND 40762482698 1000 MG Orally Active 1 cap yeimy Once a day Restoril ND 29765312446 15 MG Orally November 21, Active 1 caps ule Once a day 2017 at bedtime as needed Myrbetriq ND 71291383775 50 mg Orally Aug 17, Active 1 tab let Once a day 2017 Pravastatin ND 63248585117 20 mg Orally Active 1 t ablet Sodium once every night Vimovo [facility] 38181291818 500-20 MG Orally Sept Active 1 t ablet Twice a day , before 2015 meals Cymbalta ND 89918919016 60 MG Orally Active 1 caps ule Once a day BusPIRone HCl ND 36888342103 30 MG Orally bid Activ e TAKE 1 TABLET BY MOUTH TWICE A DAY [place] [facility] 97852578159 5-325 MG Orally September Active 1 ta blet three times a 20, as needed day (tid) 2014 Viibryd [facility] 45307602294 40MG Orally Active 1 tablet daily Allergy Relief ND 88939920691 25 MG Orally Active 1 tablet every 8 hrs as needed Levaquin ND 94448010540 500 mg Orally Feb 06, Active 1 tab let Once a day 2017 Lisinopril ND 27218511651 20 mg Orally Active 1 ta blet twice a day (bid) Ultram ND 53420694036 50 mg Orally November 03, Active 1 table t twice a day 2014 as needed (bid) Omeprazole ND 23410277361 20MG by mouth November Active 1 t ablet once a day 2015 Saxenda ND 20115898467 18 MG/3ML November Active 3.0mg Subcutaneous , daily 2017 Naproxen ND 38490286839 500MG Orally Active 1 tabl et twice a day (bid) Clopidogrel NDC 10979070289 75 MG Orally Active 1 t ablet Bisulfate Once a day Calcium + D [facility] 54251871791 600-200 MG-UNIT Active 2 tablet Orally twice a with food day (bid) Lomaira [facility] 53386474813 8 MG Orally Feb 20, Active 1 tablet Three times a 2018 before day meals Fish Oil [facility] 58384807133 1000 MG Orally Active 1 ca psule Once a day AZO Bladder [facility] 10089944869 - Orally Active not Control/Go-Less defined VESIcare [facility] 22437543952 10 MG Orally Jun 01, Active 1 tabl et Once a day 2015 Meloxicam [facility] 53862110187 15 MG Orally Active 1 tab let Once a day Symbicort [facility] 35697698006 80-4.5 MCG/ACT Jul 24, Active 2 p uffs Inhalation Twice 2014 a day Multi-betic [facility] 90499715083 - Orally Active not Diabetes defined Macrobid [facility] 45376957994 100 mg Orally December Active 1 cap yeimy every 12 hrs , with food 2017 Fosamax [facility] 73839862293 70 MG Orally Active 1 table t weekly Zostavax [facility] 24238321542 16668 UNT/0.65ML May 11, Active as Subcutaneous one 2016 directe d time Cayenne [facility] 27118631787 450 MG Orally Active not defined Levothyroxine [facility] 47444027613 125MCG orally Active 1 tablet Sodium daily Aripiprazole [facility] 66170542192 10 MG Oral Active TAKE 1 TABLET BY MOUTH EVERY DAY Vital Signs Date/Time: Apr 11, 2018 BMI 43.25 Index Weight 252.0 lbs Height 64 in Temperature 98.2 F Cardiac Monitoring Heart Rate 98 /min Blood Pressure Diastolic 68 mm Hg Blood Pressure Systolic 100 mm Hg Results No Known Results Summary Purpose eClinicalWorks Submission
--- OUTSIDE RECORDS SUMMARY | 2019-11-19 16:27 | XMS REPORT ---
:1955 Author Organization eClinicalWorks Care Team Providers Name Role Phone Lorena Lee Provider Role Unavailable Allergies, Adverse Reactions, Alerts Substance Reaction Event Type sulfa Info Not Available Drug Allergy Bactrim Info Not Available Drug Allergy Encounters Encounter Location Date Unknown [facility] 2013 Followup 1 week [facility] 2013 Follow-Up 2 weeks [facility] 2013 Problems Problem Type Condition ICD-9 Code Onset Dates Condition Statu s Problem Unspecified vitamin D deficiency 268.9 Active Problem Mixed hyperlipidemia 272.2 Active Problem Unspecified hypothyroidism 244.9 A ctive Problem Pure hypercholesterolemia 272.0 Ac tive Assessment Unspecified hypothyroidism 244.9 A ctive Problem Mixed hyperlipidemia 272.2 Active Problem Diabetes mellitus without 250.02 Ac tive mention of complication, type II or unspecified type, uncontrolled Problem Diabetes mellitus without 250.00 Ac tive mention of complication, type II or unspecified type, not stated as uncontrolled Problem Esophageal reflux 530.81 Active Problem Morbid obesity 278.01 Active Problem Hypertension benign 401.1 Active Assessment Pure hypercholesterolemia 272.0 Ac tive Assessment Hypertension benign 401.1 Active Assessment Diabetes mellitus without 250.00 Ac tive mention of complication, type II or unspecified type, not stated as uncontrolled Assessment Urge incontinence 788.31 Active Assessment Anxiety state, unspecified 300.00 A ctive Assessment Depressive disorder, not 311 Act maximo elsewhere classified Assessment Obesity, unspecified 278.00 Active Problem Depressive disorder, not 311 Act maximo elsewhere classified Assessment Esophageal reflux 530.81 Active Problem incontinence Female stress 625.6 A ctive Medications Medication Code System Code Instructions Start End Date Status Dos age Date Soma MEDISPAN 17624-8 350 MG by mouth August Active 1 table t 001-01 twice a day 2013 as needed (bid) Xanax MEDISPAN 07920-9 0.5 MG by mouth September Active 1 table t 055-01 twice a day 2013 (bid) Xanax MEDISPAN 17587-5 0.25 MG by August Inactive 1 tablet 029-01 mouth twice a 2013 day (bid) Victoza MEDISPAN 91677-5 18 MG/3ML Active 0.2 ml 060-12 Subcutaneous Once a day Vitamin B-12 MEDISPAN 19841-5 1000 MCG by Active 1 tabl et 9661 mouth Once a day Omeprazole MEDISPAN 00393-5 20MG Active TAKE 1 070-03 CAPSULE DAILY Lisinopril MEDISPAN 69951-4 20 mg Orally Active 1 table t 268-01 Once a day Flintstones Plus MEDISPAN 99660-0 Multivitamin Active 1 tablet Iron 7905 Orally Once a day Lovastatin MEDISPAN 21069-7 40MG Active TAKE 1 928-06 TABLET DAILY Levothyroxine MEDISPAN 26619-6 125MCG Active 1 po qd Sodium 649-07 Levemir Flexpen MEDISPAN 74987-2 100U Active INJECT 10 439-10 UNITS SQ TWICE A DAY Vitamin D MEDISPAN 05795-4 1000 UNIT Active 1 capsule 7630 Orally Once a day Naprosyn MEDISPAN 32671-0 500 mg by mouth AugustDecember 23, Active 1 tab let 316-01 twice a day 2013 as needed (bid) Sanctura MEDISPAN 60286-6 20 mg by mouth Jul 16, Active 1 table t 513-60 Once a day 2013 Viibryd MEDISPAN 02606-4 40MG Active TAKE 1 100-31 TABLET DAILY Social History Social History Element Qualifiers Date Reported Tobacco Use: . Are you a: former smoker, Age September [birth year] started: 13, Age stopped: 51, Number of packs per day: 3 Use of recreational / street drugs? . Answer: No 2013 Do you have pets? . Status: No October 15, 2013 Marital Status: . October 15, 2013 Caffeine intake? . Status: Yes, What type: Coffee, October 15, 2013 Tea, 1 - 2 cup(s) a day Do you exercise? . Answer: Yes, Type: walking September 302013 min 2x day Do you drink alcohol? . Status: No October 15, 2013 Vital Signs Date/Time: October 01, 2013 Weight 273.8 lbs Temperature 97.9 F Cardiac Monitoring Heart Rate 83 /min Blood Pressure Diastolic 42 mm Hg Blood Pressure Systolic 106 mm Hg Summary Purpose eClinicalWorks Submission
--- OUTSIDE RECORDS SUMMARY | 2019-11-19 16:27 | XMS REPORT ---
[...] Simple chronic bronchitis J41.0 Ac tive Assessment Urge incontinence of urine N39.41 A ctive Problem Type II or unspecified [...] Problem Coronary artery disease involving I25.10 Active [place] coronary artery of [place] heart without angina pectoris Problem Osteoarthritis of [...] Start End Status Dosage System Date Date Calcium + D [facility] 30646837587 600-200 MG-UNIT Active 2 tablet Orally twice a with food day (bid) Aripiprazole [facility] 78005994836 10 MG Oral Active TAKE 1 TABLET BY MOUTH EVERY DAY Ultram ND 95093155841 50 mg Orally November 03, Active 1 table t twice a day 2014 as needed (bid) Osteo Bi-Flex [facility] 77128594944 - Orally Active not Triple Strength defined Niacin ND 10958575246 250 MG Orally Active 1 tabl et Once a day Viibryd [facility] 35479833570 20 mg Orally May 03, Active 1 table t Once a day 2016 with food Omeprazole ND 03520404921 20MG by mouth November Active 1 t ablet once a day 2015 Pentazocine-Nalo ND 86438758054 50-0.5 MG Oral Acti ve not xone HCl defined [place] ND 83275508827 5-325 MG Orally September Active 1 ta blet three times a 20, as needed day (tid) 2014 Flintstones Plus [facility] 94922827700 Multivitamin Active 1 tablet Iron Orally Once a day BuPROPion HCl ND 86628067238 75 MG Orally August Active 1 tablet daily 2016 Viibryd [facility] 81840461910 10 mg Orally Active 1 table t Once a day with food Allergy Relief ND 62894847847 25 MG Orally Active 1 tablet every 8 hrs as needed Fosamax ND 93741967665 70 MG Orally Active 1 table t weekly Levothyroxine ND 55971436022 125MCG orally Active 1 tablet Sodium daily Lomaira ND 36242068465 8 MG Orally Feb 20, Active 1 tablet Three times a 2017 before day meals Marycarmen BD ultra NDC 0 4mm x 32g Active as fine pen needles intradermally d irected three times a day (tid) Cayenne [facility] 77040168462 450 MG Orally Active not defined Tumeric NDC 0 Active not defined Vitamin D ND 03580980490 2000 UNIT Orally Active 5 tablets Once a day Naproxen ND 49285668696 500MG Orally Active 1 tabl et twice a day (bid) Multi-betic ND 37115358595 - Orally Active not Diabetes defined [employer] Thyroid ND 26273433465 90 MG Orally August Active 1 ta blet Once a day 12, on an 2017 empty stomach Meloxicam ND 41884053463 15 MG Orally Active 1 tab let Once a day NovoFine ND 51380642250 32G X 6 MM SQ November Active as daily , directed 2017 Pen Keiser ND 58485637116 31G X 8 MM SQ Aug 16, Active as 16" twice a day 2016 directed (bid) Sanctura ND 0 20 mg by mouth Jul 16, Active 1 tablet Once a day 2013 Sleep Aid ND 63742618141 25 MG Orally Active 1 tab let Once a day at bedtime as needed VESIcare ND 86967808071 10 MG Orally Jun 01, Active 1 tabl et Once a day 2015 Fish Oil ND 28406432754 1000 MG Orally Active 1 ca psule Once a day Acyclovir ND 24057557975 400 MG Orally November 03, Active 1 ta blet Three times a 2014 day Acidophilus ND 77398100933 - Orally Active not defined Vimovo ND 66981651350 500-20 MG Orally Sept Active 1 t ablet Twice a day , before 2015 meals Uribel ND 65844935461 118 MG Orally December Active 1 caps ule three times a , day (tid) 2018 Aspir-81 ND 41508644581 81 MG Orally Active 1 tabl et Once a day Symbicort ND 02274459552 80-4.5 MCG/ACT Jul 24, Active 2 p uffs Inhalation Twice 2014 a day Viibryd ND 98701443960 40MG Orally Active 1 tablet daily BusPIRone HCl ND 73623731789 30 MG Orally bid Activ e TAKE 1 TABLET BY MOUTH TWICE A DAY Restoril ND 07097810005 15 MG Orally November 21, Active 1 caps ule Once a day 2018 at bedtime as needed Lisinopril [facility] 44073391097 20 mg Orally Active 1 ta blet twice a day (bid) Vitamin B-12 ND 00531487545 1000 MCG by Active 1 t ablet mouth Once a day Cymbalta [facility] 77579500434 60 MG Orally Active 1 caps ule Once a day Linzess [facility] 39413596417 72 mcg orally November 21, Active 1 caps ule Daily 2017 disabled placard ND 0 n/a n/a daily December Active a s 12, directed 2018 Clopidogrel ND 76427861601 75 MG Orally Active 1 t ablet Bisulfate Once a day Victoza ND 36226561652 6MG/ML SQ daily Active 1.8 mg Macrobid [facility] 43588522455 100 MG Orally Jan 31, Active 1 cap yeimy every 12 hrs 2016 with food Zostavax [facility] 93933533788 74734 UNT/0.65ML May 11, Active as Subcutaneous one 2017 directe d time Duloxetine HCl ND 38752069771 30 MG Orally Active 1 capsule Once a day Benadryl Allergy ND 51276206920 25 MG Orally Active 1 tablet once every night as need ed Potassimin [facility] 68940677164 75 MG Orally Active 1 ta blet Once a day Prolia [facility] 14987658620 60 MG/ML Apr 11, Active as Subcutaneous 2018 directed everry 6 months CoQ-10 ND 87493607540 30 MG Orally Active 1 capsu le Once a day with a meal Bactrim DS [facility] 24516317221 800-160 MG Jan 31, Active 1 tabl et Orally Twice a 2017 day Myrbetriq ND 94756483948 50 mg Orally Aug 17, Active 1 tab let Once a day 2018 Diabetes Support [facility] 67950705502 THERAPY PACK Active not Orally defined Fosfree [facility] [address]-27 - Orally once Active 2 ta blet every night Neurontin ND 95618116373 600 MG Orally November 03, Active 1 ta blet Three times a 2014 day Macrobid [facility] 31022419907 100 mg Orally December Active 1 cap yeimy every 12 hrs 12, with food 2017 One Touch NDC 0 as directed bid Active use Glucometer with test strips and lancets Pravastatin ND 98055850327 20 mg Orally Active 1 t ablet Sodium once every night Levaquin ND 57099903754 500 mg Orally Feb 06, Active 1 tab let Once a day 2017 AZO Bladder [facility] 36231964029 - Orally Active not Control/Go-Less defined Saxenda [facility] 87615463472 18 MG/3ML November Active 3.0mg Subcutaneous , daily 2017 Wisdom 3 [facility] 01435667779 1000 MG Orally Active 1 cap yeimy Once a day Cinnamon ND 29368217988 500 MG Orally Active not defined Trulicity [facility] 53986038750 0.75mg/0.5ml sq Jan 31, Active on ce a every 2 wks 2016 week as directed One A Day Multi NDC 0 by mouth once a Active as Vitamin day directed HydrOXYzine HCl [facility] 61307233404 25 MG Oral Active T MARIAH 1 TABLET BY MOUTH EVERY DAY NEEDED Results No Known Results Summary Purpose eClinicalWorks Submission
--- OUTSIDE RECORDS SUMMARY | 2019-11-19 16:27 | XMS REPORT ---
:1955 Author Organization eClinicalWorks Care Team Providers Name Role Phone Lorena Lee Provider Role Unavailable Allergies, Adverse Reactions, Alerts Substance Reaction Event Type sulfa Info Not Available Drug Allergy Bactrim Info Not Available Drug Allergy Encounters Encounter Location Date Unknown [facility] 2013 Followup 1 week [facility] 2013 Follow-Up 2 weeks [facility] 2013 Problems Problem Type Condition ICD-9 Code Onset Dates Condition Statu s Problem Unspecified vitamin D deficiency 268.9 Active Problem Mixed hyperlipidemia 272.2 Active Problem Unspecified hypothyroidism 244.9 A ctive Problem Pure hypercholesterolemia 272.0 Ac tive Problem Mixed hyperlipidemia 272.2 Active Problem Diabetes mellitus without 250.02 Ac tive mention of complication, type II or unspecified type, uncontrolled Problem Diabetes mellitus without 250.00 Ac tive mention of complication, type II or unspecified type, not stated as uncontrolled Problem Esophageal reflux 530.81 Active Problem Morbid obesity 278.01 Active Problem Hypertension benign 401.1 Active Assessment Depressive disorder, not 311 Act maximo elsewhere classified Assessment Anxiety state, unspecified 300.00 A ctive Assessment Unspecified constipation 564.00 Act maximo Assessment Diabetes mellitus without 250.00 Ac tive mention of complication, type II or unspecified type, not stated as uncontrolled Problem Depressive disorder, not 311 Act maximo elsewhere classified Assessment incontinence Female stress 625.6 A ctive Problem incontinence Female stress 625.6 A ctive Medications Medication Code System Code Instructions Start End Status Dosa ge Date Date [facility]d [facility] 64110-20 40MG Active TAKE 1 00-31 TABLET DAILY Vitamin D [facility] 30552-85 1000 UNIT Orally Active 1 c apsule 630 Once a day [facility] 94259[facility]14 40MG Active TAKE 1 28-06 TABLET DAILY Lisinopril [facility] 06462-52 20 mg Orally Active 1 tabl et 68-01 Once a day Omeprazole [facility] 25733-56 20MG Active TAKE 1 70-03 CAPSULE DAILY Sanctura [facility] 82456-84 20 mg by mouth Jul 16, Active 1 tabl et 13-60 Once a day 2013 Linzess MEDISPAN 09218-88 145 MCG by mouth September Active 1 cap yeimy 01-30 Once a day 2013 Flintstones [facility] 69160-16 Multivitamin Active 1 tablet Iron 905 Orally Once a day Vitamin B-12 MEDISPAN 21073-78 1000 MCG by Active 1 tab let 661 mouth Once a day Levothyroxine MEDISPAN 74977-16 125MCG Active 1 po qd Sodium 49-07 Xanax MEDISPAN 95498-64 0.5 MG by mouth September Active 1 tabl et 55-01 twice a day 2013 (bid) Naprosyn MEDISPAN 16525-84 500 mg by mouth August Active 1 tab let 16-01 twice a day 2013 24, as needed (bid) 2013 Victoza MEDISPAN 26131-16 18 MG/3ML Active 0.2 ml 60-12 Subcutaneous Once a day Levemir Flexpen MEDISPAN 93524-91 30 mg Active INJECT 10 39-10 Subcutaneous UNITS SQ once a day TWICE A DAY Social History Social History Element Qualifiers Date [...] October 15, 2013 Vital Signs Date/Time: October 15, 2013 Weight 272.8 lbs Height 64 in Temperature 98.3 F Cardiac Monitoring Heart Rate 85 /min Blood Pressure Diastolic 47 mm Hg Blood Pressure Systolic 105 mm Hg Results Finger Stick (Glucose) Glucose Level(- ) 110 Summary Purpose eClinicalWorks Submission
--- OUTSIDE RECORDS SUMMARY | 2019-11-19 16:27 | XMS REPORT ---
:1955 Author Organization eClinicalWorks Care Team Providers Name Role Phone Lorena Lee Provider Role Unavailable Encounters Encounter Location Date Nasonex req PA so changed to [facility], December 01, 2013 Flonase PA Poss sinus inf [facility], November 012013 PA allergies not any better from last [facility], December 05, 2013 visit PA [facility] must go [facility], December 29, 2013 scripts PA Unknown [facility], September 24, 2013 PA Followup 1 week [facility], October 01, 2013 PA Follow-Up 2 weeks [facility], October 15, 2013 PA Problems Problem Type Condition ICD-9 Code Onset Dates Condition Statu s Problem Unspecified vitamin D deficiency 268.9 Active Problem Mixed hyperlipidemia 272.2 Active Problem Unspecified hypothyroidism 244.9 A ctive Problem Depressive disorder, not 311 Act maximo elsewhere classified Problem incontinence Female stress 625.6 A ctive Problem Pure hypercholesterolemia 272.0 Ac tive Problem Mixed hyperlipidemia 272.2 Active Problem Diabetes mellitus without 250.02 Ac tive mention of complication, type II or unspecified type, uncontrolled Problem Diabetes mellitus without 250.00 Ac tive mention of complication, type II or unspecified type, not stated as uncontrolled Problem Esophageal reflux 530.81 Active Problem Morbid obesity 278.01 Active Problem Hypertension benign 401.1 Active Medications Medication Code System Code Instructions Start End Date Status Dos age Date Viibryd MEDISPAN 48938-50 40MG by mouth Active take 1 00-31 once a day tablet daily Levemir Flexpen MEDISPAN 60640-25 30 mg Active inject 30 39-10 Subcutaneous units sq twice a day twice a (bid) day Victoza MEDISPAN 14527-25 18 MG/3ML Jun 27, Active 1.8 60-12 Subcutaneous 2014 Once a day Omeprazole MEDISPAN 03539-71 20MG by mouth Active 1 tab let 70-03 once a day Social History Social History Element Qualifiers Date Reported Tobacco Use: . Are you a: former smoker, Age November started: 13, Age stopped: 51, Number of packs per day: 3 Use of recreational / street drugs? . Answer: No December 22, 2013 Do you have pets? . Status: No December 22, 2013 Marital Status: . December 22, 2013 Caffeine intake? . Status: Yes, What type: Coffee, December 22, 2013 Tea, 1 - 2 cup(s) a day Do you exercise? . Answer: Yes, Type: walking 15 November min 2x day Do you drink alcohol? . Status: No December 22, 2013 Summary Purpose eClinicalWorks Submission
--- OUTSIDE RECORDS SUMMARY | 2019-11-19 16:27 | XMS REPORT ---
:1955 Author Organization eClinicalWorks Care Team Providers Name Role Phone Lorena Lee Provider Role Unavailable Encounters Encounter Location Date Nasonex remyron [place] so changed to [facility] , December 01, 2013 Terri PA Poss sinus inf [facility], November 012013 PA Unknown [facility], September 24, 2013 PA Followup 1 week [facility], October 01, 2013 PA Follow-Up 2 weeks [facility], October 15, 2013 PA Problems Problem Type [...] Start End Status Dosa ge Date Date Lovastatin MEDISPAN 98562-81 40MG Active TAKE 1 28-06 TABLET DAILY Vitamin B-12 MEDISPAN 10325-90 1000 MCG by Active 1 tab let 661 mouth Once a day Linzess MEDISPAN 02027-93 145 MCG by mouth September Active 1 cap yeimy -30 Once a day 2013 Calcium + D MEDISPAN 40931-31 600-200 MG-UNIT Active 2 tablet 56-52 Orally twice a with food day (bid) Victoza MEDISPAN 53605-12 18 MG/3ML Active 0.2 ml 60-12 Subcutaneous Once a day Xanax MEDISPAN 30160-98 0.5 MG by mouth September Active 1 tabl et 55-01 twice a day 2013 (bid) Lisinopril MEDISPAN 73585-73 20 mg Orally Active 1 tabl et 68-01 Once a day Naprosyn MEDISPAN 31758-39 500 mg by mouth August Active 1 tab let 16-01 twice a day 2013 24, as needed (bid) 2013 Sanctura MEDISPAN 25381-97 20 mg by mouth Jul 16, Active 1 tabl et 13-60 Once a day 2013 Jolie Allergy MEDISPAN 01803-90 180 MG Orally November 28, Feb 26, Active 1 tablet 20-00 Once a day 2013 2013 Nasonex MEDISPAN 00915-46 50 MCG/ACT November 28, Active 2 sprays Nasally twice a 2013 in each day (bid) nostril Levemir Flexpen MEDISPAN 75613-89 30 mg Active INJECT 30 39-10 Subcutaneous UNITS SQ once a day TWICE A DAY Viibryd MEDISPAN 72207-62 40MG Active TAKE 1 00-31 TABLET DAILY Flonase MEDISPAN 41999-57 50 MCG/ACT Active 1 spray in Nasally twice a each day (bid) nostril [facility] 94711-10 20MG Active TAKE 1 70-03 CAPSULE DAILY Levothyroxine MEDISPAN 54700-56 125MCG Active 1 po qd Sodium 49-07 Flintstones Plus MEDISPAN 42709-06 Multivitamin Active 1 tablet Iron 905 Orally Once a day Flonase MEDISPAN 08645-53 50 MCG/ACT December 01, Active 1 spray in Nasally twice a 2013 each day (bid) nostril Social History Social History Element Qualifiers Date Reported Tobacco Use: . Are you a: former smoker, Age November 28, 2013 started: 13, Age stopped: 51, Number of packs per day: 3 Use of recreational / street drugs? . Answer: No November 28, 2013 Do you have pets? . Status: No November 28, 2013 Marital Status: . November 28, 2013 Caffeine intake? . Status: Yes, What type: Coffee, November 012013 Tea, 1 - 2 cup(s) a day Do you exercise? . Answer: Yes, Type: walking November 28, 2013 min 2x day Do you drink alcohol? . Status: No November 28, 2013 Summary Purpose eClinicalWorks Submission
--- OUTSIDE RECORDS SUMMARY | 2019-11-19 16:27 | XMS REPORT ---
:1955 Author Organization eClinicalWorks Care Team Providers Name Role Phone Lorena Lee Provider Role Unavailable Allergies, Adverse Reactions, Alerts Substance Reaction Event Type sulfa Info Not Available Drug Allergy Bactrim Info Not Available Drug Allergy Encounters Encounter Location Date Nasonex req PA so changed to [facility], December 01, 2013 Flonase PA Poss sinus inf [facility], November 012013 PA Unknown [facility], September 24, 2013 PA Followup 1 week [facility], October 01, 2013 PA Follow-Up 2 weeks [facility], October 15, 2013 PA Problems Problem Type [...] Active Problem Hypertension benign 401.1 Active Assessment Other specified acquired 244.8 Act maximo hypothyroidism Assessment Hypercholesterolemia 272.0 Active Assessment Reflux esophagitis 530.11 Active Assessment Obesity (BMI 30.0-34.9) 278.00 Acti ve Assessment Allergic rhinitis due to pollen 477.0 Active Assessment HTN (hypertension), benign 401.1 A ctive Problem Depressive disorder, not 311 Act maximo elsewhere classified Assessment incontinence Female stress 625.6 A ctive Problem incontinence Female stress 625.6 A ctive Medications Medication Code System Code Instructions Start End Status Dosa ge Date Date Omeprazole MEDISPAN 54416-34 20MG Active TAKE 1 70-03 CAPSULE DAILY Jolie Allergy MEDISPAN 09361-85 180 MG Orally November 28Feb 26, Active 1 tablet 20-00 Once a day 2013 2013 Lisinopril MEDISPAN 78815-64 20 mg Orally Active 1 tabl et 68-01 Once a day [facility]ine [facility] 00728-37 125MCG Active 1 po qd Sodium 49-07 Vitamin D MEDISPAN 20648-27 1000 UNIT Orally Active 1 c apsule 630 Once a day Viibryd MEDISPAN 95037-38 40MG Active TAKE 1 00-31 TABLET DAILY Flintstones Plus [facility] 34234-22 Multivitamin Active 1 tablet Iron 905 Orally Once a day Calcium + D MEDISPAN 07969-20 600-200 MG-UNIT Active 2 tablet 56-52 Orally twice a with food day (bid) Lovastatin MEDISPAN 57189-79 40MG Active TAKE 1 28-[address] [facility] 58680-01 50 MCG/ACT November 28 Active 2 sprays Nasally twice a 2013 in each day (bid) nostril Sanctura [facility] 04002-58 20 mg by mouth Jul 16, Active 1 tabl et 13-60 Once a day 2013 Xanax MEDISPAN 32781-69 0.5 MG by mouth September Active 1 tabl et 55-01 twice a day 2013 (bid) Levemir Flexpen [facility] 72068-56 30 mg Active INJECT 30 39-10 Subcutaneous UNITS SQ once a day TWICE A DAY Vitamin B-[facility] 76974-32 1000 MCG by Active 1 tab let 661 mouth Once a day Naprosyn MEDISPAN 14251-09 500 mg by mouth August Active 1 tab let 16-01 twice a day 2013 24, as needed (bid) 2013 Linzess MEDISPAN 87150-16 145 MCG by mouth September Active 1 cap yeimy -30 Once a day [address] [facility] 81830-78 18 MG/3ML Active 0.2 ml 60-12 Subcutaneous Once a day Social History Social History Element [...] . Answer: Yes, Type: walking 15 November 28, 2013 min 2x day Do you drink alcohol? . Status: No November 28, 2013 Vital Signs Date/Time: November 28, 2013 Weight 263.2 lbs Height 64 in Temperature 98.1 F Cardiac Monitoring Heart Rate 82 /min Blood Pressure Diastolic 59 mm Hg Blood Pressure Systolic 112 mm Hg Summary Purpose eClinicalWorks Submission
--- OUTSIDE RECORDS SUMMARY | 2019-11-19 16:27 | XMS REPORT ---
:1955 Author Organization eClinicalWorks Care Team Providers Name Role Phone Lorena Lee Provider Role Unavailable Encounters Encounter Location Date Nasonex req PA so changed to [facility] , December 01, 2013 Flonase PA Poss sinus inf [facility], November 012013 PA allergies not any better from last [facility], December 05, 2013 visit [facility] December [facility], 2013 scripts PA Unknown [facility], September 24, 2013 PA Followup 1 week [facility], October 01, 2013 PA Follow-Up 2 weeks [facility], October 15, 2013 PA Unknown [facility], January 08, 2014 PA Follow-Up med refill [facility], Nov PA Pen needles refill request [facility] , January 08, 2014 PA Problems Problem Type Condition ICD-9 Code [...] Active Problem Hypertension benign 401.1 Active Assessment Diabetes mellitus without 250.00 Ac tive mention of complication, type II or unspecified type, not stated as uncontrolled Problem Depressive disorder, not 311 Act maximo elsewhere classified Problem incontinence Female stress 625.6 A ctive Medications Medication Code System Code Instructions Start End Status Dosa ge Date Date Linzess MED[facility] [address]-73 145 MCG by September Active 1 caps ule mouth Once a 16, 15, day 2013 2013 Flintstones Plus [facility] 01071-29922 Multivitamin Activ e 1 tablet Iron Orally Once a day Naproxen [facility] 45273311363 500 MG Active TAKE 1 TABLET BY MOUTH TWICE A DAY NEEDED Flonase [facility] [address]-29 50 MCG/ACT November Active 1 spra y in Nasally twice 02, each a day (bid) 2013 nostril Sanctura [facility] [address]-44 20 mg by mouth Jul 16, Active 1 tablet Once a day 2013 Vitamin B-12 [facility] 42728-54397 1000 MCG by Active 1 tablet mouth Once a day Victoza [facility] [address]-13 18 MG/3ML Dec Active 1.8 Subcutaneous 27, Once a day 2013 Levemir Flexpen [facility] [address]-47 30 mg Active i nject 30 Subcutaneous units sq twice a day twice a (bid) day Xanax [facility] [address]-63 0.5 MG by September Active 1 table t mouth twice a 02, day (bid) 2013 Jolie Allergy [facility] [address]-07 180 MG Orally November 28Jan Act maximo 1 tablet Once a day 2013 BD Pen [facility] 8290-306683 31........5.16 December Active as SQ three times 10, directed a day (tid) 2013 Viibryd [facility] [address]-36 40MG by mouth Active charissa e 1 once a day tablet daily Levothyroxine [facility] [address]-69 125MCG Active 1 p o qd Sodium Calcium + D [facility] [address]-80 600-200 Active 2 tab let MG-UNIT Orally with food twice a day (bid) Omeprazole [facility] [address]-35 20MG by mouth Active 1 tablet once a day Social History Social History [...] exercise? . Answer: Yes, Type: walking November min 2x day Do you drink alcohol? . Status: No December 22, 2013 Summary Purpose eClinicalWorks Submission
--- OUTSIDE RECORDS SUMMARY | 2019-11-19 16:27 | XMS REPORT ---
:1955 Author Organization eClinicalWorks Care Team Providers Name Role Phone Lorena Lee Provider Role Unavailable Encounters Encounter Location Date [facility] 2013 Problems Problem Type Condition ICD-9 Code [...] 278.01 Active Problem Hypertension benign 401.1 Active Social History Social History Element Qualifiers Date Reported Tobacco Use: . Are you a: former smoker, Age August [birth year]2013 started: 13, Age stopped: 51, Number of packs per day: 3 Use of recreational / street drugs? . Answer: No Sami 2013 Do you have pets? . Status: No September 15, 2013 Marital Status: . September 15, 2013 Caffeine intake? . Status: Yes, What type: Coffee, September 15, 2013 Tea, 1 - 2 cup(s) a day Do you exercise? . Answer: Yes, Type: walking August 302013 min 2x day Do you drink alcohol? . Status: No September 15, 2013 Vital Signs Date/Time: September 15, 2013 Weight 267.2 lbs Height 64 inches Temperature 98.4 F Cardiac Monitoring Heart Rate 95 Beats per Minute Blood Pressure Diastolic 82 mm Hg Blood Pressure Systolic 119 mm Hg Summary Purpose eClinicalWorks Submission
--- OUTSIDE RECORDS SUMMARY | 2019-11-19 16:28 | XMS REPORT ---
:1955 Author Organization eClinicalWorks Care Team Providers Name Role Phone Lorena Lee Provider Role Unavailable Encounters Encounter Location Date Nasonex req PA so changed to [facility], December 01, 2013 Flonase PA Poss sinus inf [facility], November 012013 PA allergies not any better from last [facility], December 05, 2013 visit PA [facility], December 29, 2013 scripts PA Unknown [facility], September 24, 2013 PA Followup 1 week [facility], October 01, 2013 PA Follow-Up 2 weeks [facility], October 15, 2013 PA Unknown [facility], January 08, 2014 PA Follow-Up med refill [facility], Nov PA Pen needles refill request [facility] , January 08, 2014 PA Problems Problem [...] Start End Date Status Dos age Date BD Pen MEDISPAN 6722-6206 31........5.16 SQ January 08, Active as directed 04 three times a day 2013 (tid) Social History Social History Element Qualifiers Date [...]
--- OUTSIDE RECORDS SUMMARY | 2019-11-19 16:28 | XMS REPORT ---
:1955 Author Organization eClinicalWorks Care Team Providers Name Role Phone Lorena Lee Provider Role Unavailable Allergies, Adverse Reactions, Alerts Substance Reaction Event Type sulfa Info Not Available Drug Allergy Bactrim Info Not Available Drug Allergy Encounters Encounter Location Date Nasonex req PA so changed to Flonase [facility], December 01, 2013 PA Poss sinus inf [facility], November 012013 PA allergies not any better from last [facility], December 05, 2013 visit PA Refills must go through [facility], December 29, 2013 scripts PA Unknown [facility], September 24, 2013 PA Followup 1 week [facility], October 01, 2013 PA Follow-Up 2 weeks [facility], October 15, 2013 PA Unknown [facility], January 08, 2014 PA Follow-Up med refill [facility], Nov PA Pen needles refill request [facility] , January 08, 2014 PA poss UTI [facility], Apr 012013 PA refill on Naproxen [facility], Mar 18, 2014 PA Follow-Up medication [facility], Mar 16, 2014 PA Problems Problem Type Condition ICD-9 [...] Active Problem Hypertension benign 401.1 Active Assessment Cervicalgia 723.1 Active Assessment Diabetes mellitus without 250.00 Ac tive mention of complication, type II or unspecified type, not stated as uncontrolled Assessment GERD (gastroesophageal reflux 530.81 Active disease) Assessment Osteopenia 733.90 Active Assessment Depression 311 Active Assessment Urinary frequency 788.41 Active Assessment Other specified acquired 244.8 Act maximo hypothyroidism Problem Depressive disorder, not 311 Act maximo elsewhere classified Assessment Obesity 278.00 Active Problem incontinence Female stress 625.6 A ctive Medications Medication Code System Code Instructions Start End Status Dosa ge Date Date Levemir Flexpen [facility] [address]-80 30 mg Active i nject 30 Subcutaneous units sq twice a day twice a (bid) day Xanax [facility] [address]-37 0.5 MG by September Active 1 table t mouth four 02, times a day 2013 (qid) as needed (prn) Flintstones Plus [facility] 86[address] Multivitamin Activ e 1 tablet Iron Orally Once a day Naproxen [facility] [address]-50 500 mg Active TAKE 1 TABLET BY MOUTH TWICE A DAY NEEDED Victoza [facility] [address]-20 18 MG/3ML Dec Active 1.8 Subcutaneous 27, Once a day 2013 Levothyroxine [facility] 05169857271 125MCG Active 1 po qd Sodium Fosamax [facility] [address]-76 70 MG Orally Apr 16, Active 1 ta blet weekly 2013 Calcium + D [facility] [address]-12 600-200 Active 2 tab let MG-UNIT Orally with food twice a day (bid) Macrobid [facility] [address]-95 100 mg Orally Apr 16, Active 1 capsule twice a day 2013 with food (bid) Vitamin B-12 [facility] 20[address]152 1000 MCG by Active 1 tablet mouth Once a day BD Pen Unknown 0 31.156 SQ December Active as three times a 10, day (tid) 2013 Viibryd [facility] [address]-43 40MG by mouth Active charissa e 1 once a day tablet daily Omeprazole Unknown 0 20MG by mouth Active 1 table t once a day Sanctura [facility] [address]-82 20 mg by mouth Jul 16, Active 1 tablet Once a day 2013 Social History Social History Element Qualifiers Date Reported Tobacco Use: . Are you a: former smoker, Age Apr 16, 2014 started: 13, Age stopped: 51, Number of packs per day: 3 Use of recreational / street drugs? . Answer: No Apr 16, 2014 Do you have pets? . Status: No Apr 16, 2014 Marital Status: . Apr 16, 2014 Caffeine intake? . Status: Yes, What type: Coffee, Apr 012013 Tea, 1 - 2 cup(s) a day Do you exercise? . Answer: Yes, Type: walking 15 Apr 16, 2014 min 2x day Do you drink alcohol? . Status: No Apr 16, 2014 Vital Signs Date/Time: Apr 16, 2014 Weight 264.6 lbs Height 64 in Temperature 98.0 F Cardiac Monitoring Heart Rate 83 /min Blood Pressure Diastolic 54 mm Hg Blood Pressure Systolic 112 mm Hg Summary Purpose eClinicalWorks Submission
--- OUTSIDE RECORDS SUMMARY | 2019-11-19 16:28 | XMS REPORT ---
:1955 Author Organization eClinicalWorks Care Team Providers Name Role Phone Lorena Lee Provider Role Unavailable Encounters Encounter Location Date Nasonex req PA so changed to Flonase [facility], December 01, 2013 PA Poss sinus inf [facility], November 012013 PA allergies not any better from last [facility], December 05, 2013 visit [facility], December 29, [address] [facility], September 24, 2013 PA refill on Naproxen [facility], Mar 18, 2014 PA Followup [address] [facility], October 01, 2013 PA Follow-Up medication [facility], Mar 16, 2014 PA Follow-Up [address] [facility], October 15, [address] [facility], January 08, 2014 PA Follow-Up med refill [facility], Nov PA Pen needles refill request [facility] , January 08, 2014 PA Problems Problem [...] Instructions Start Date End Date Status Dosage Naproxen [facility] [address] 500 mg Active TAKE 1 -01 TABLET BY MOUTH TWICE A DAY NEEDED Social History Social History Element Qualifiers Date Reported Tobacco Use: . Are you a: former smoker, Age Mar started: 13, Age stopped: 51, Number of packs per day: 3 Use of recreational / street drugs? . Answer: No Mar 16, 2014 Do you have pets? . Status: No Mar 16, 2014 Marital Status: . Mar 16, 2014 Caffeine intake? . Status: Yes, What type: Coffee, Mar 16, 2014 Tea, 1 - 2 cup(s) a day Do you exercise? . Answer: Yes, Type: walking Mar min 2x day Do you drink alcohol? . Status: No Mar 16, 2014 Summary Purpose eClinicalWorks Submission
--- OUTSIDE RECORDS SUMMARY | 2019-11-19 16:28 | XMS REPORT ---
:1955 Author Organization eClinicalWorks Care Team Providers Name Role Phone Lorena Lee Provider Role Unavailable Allergies, Adverse Reactions, Alerts Substance Reaction Event Type sulfa Info Not Available Drug Allergy Bactrim Info Not Available Drug Allergy Encounters Encounter Location Date Nasonex req PA so changed to [facility], December 01, 2013 Flonase PA Poss sinus inf [facility], November 012013 PA allergies not any better from last [facility], December 05, 2013 visit PA Refills must [facility], December 29, 2013 scripts PA Unknown [facility], September 24, 2013 PA Followup 1 week [facility], October 01, 2013 PA Follow-Up 2 weeks [facility], October 15, 2013 PA Unknown [facility], January 08, 2014 PA Follow-Up med refill [facility], Nov PA Pen needles refill request [facility] , January 08, 2014 PA [...] Active Problem Hypertension benign 401.1 Active Assessment Depression 311 Active Assessment Urge incontinence 788.31 Active Assessment Anxiety 300.00 Active Assessment Diabetes 250.00 Active Assessment Benign hypertension 401.1 Active Assessment Other specified acquired 244.8 Act maximo hypothyroidism Problem Depressive disorder, not 311 Act maximo elsewhere classified Assessment Esophageal reflux 530.81 Active Problem incontinence Female stress 625.6 A ctive Medications Medication Code System Code Instructions Start End Status Dosa ge Date Date Victoza [facility] [address]-52 18 MG/3ML Dec Active 0.2 ml Subcutaneous 20, Once a day 2013 Jolie Allergy [facility] [address]-19 180 MG Orally November 28Jan Act maximo 1 tablet Once a day 2013 Lisinopril [facility] [address]-55 20 mg Orally Active 1 tablet Once a day Sanctura [facility] [address]-11 20 mg by mouth Jul 16, Active 1 tablet Once a day 2013 Xanax [facility] [address]-93 0.5 MG by mouth September Active 1 tablet twice a day , (bid) 2013 Omeprazole [facility] [address]-40 20MG by mouth Active 1 tablet once a day Flintstones Plus [facility] 65066-[address]21 Multivitamin Activ e 1 tablet Iron Orally Once a day Vitamin B-12 [facility] 87038-65752 1000 MCG by Active 1 tablet mouth Once a day Linzess [facility] [address]-48 145 MCG by September Active 1 caps ule mouth Once a , , 2013 Naproxen [facility] 01998141182 500 MG Active TAKE 1 TABLET BY MOUTH TWICE A DAY NEEDED Calcium + D [facility] [address]-46 600-200 MG-UNIT Activ e 2 tablet Orally twice a with food day (bid) Levemir Flexpen [facility] [address]-24 30 mg Active i nject 30 Subcutaneous units sq once a day twice a day Lovastatin [facility] [address]-32 40MG Active TAKE 1 TABLET DAILY Viibryd [facility] [address]-71 40MG by mouth Active charissa e 1 once a day tablet daily Flonase [facility] [address]-91 50 MCG/ACT November Active 1 spra y Nasally twice a 02, in each day (bid) 2013 nostril Levothyroxine [facility] [address]-36 125MCG Active 1 p o qd Sodium Social History Social History Element Qualifiers Date [...] alcohol? . Status: No December 22, 2013 Vital Signs Date/Time: December 22, 2013 Weight 267.2 lbs Height 64 in Temperature 98.5 F Cardiac Monitoring Heart Rate 76 /min Blood Pressure Diastolic 70 mm Hg Blood Pressure Systolic 113 mm Hg Summary Purpose eClinicalWorks Submission
--- OUTSIDE RECORDS SUMMARY | 2019-11-19 16:28 | XMS REPORT ---
:1955 Author Organization eClinicalWorks Care Team Providers Name Role Phone Lorena Lee Provider Role Unavailable Allergies, Adverse Reactions, Alerts Substance Reaction Event Type sulfa Info Not Available Drug Allergy Bactrim Info Not Available Drug Allergy Encounters Encounter Location Date Unknown [facility], January 08, 2014 PA cough [facility], Jul 032014 PA refill on xanax [facility], Aug 022014 PA Unknown [facility], Jul 022014 PA cold [facility], Jul 022014 PA poss UTI [facility], Apr 012013 PA refill on fosamax [facility], Jun PA refill on Naproxen [facility], Mar 18, 2014 PA Follow-Up medication [facility], Mar 16, 2014 PA refill medications [facility], Aug 032014 PA Nasonex req PA so changed to Flonase [facility], December 01, 2013 PA Poss sinus inf [facility], November 012013 PA allergies not any better from last [facility], December 05, 2013 visit PA [facility] December [facility], 2013 scripts PA Unknown [facility], September 24, 2013 PA Followup 1 week [facility], October 01, 2013 PA Follow-Up 2 weeks [facility], October 15, 2013 PA Unknown [facility], September 08, 2014 PA refill on fosamax [facility], September 04, 2014 PA Follow-Up med refill [facility], Nov PA Pen needles refill request [facility] , January 08, 2014 PA med refills [facility], October PA refill on Omeprazole [facility], December 23, 2014 PA Refill on meds [facility], January 19, 2015 PA poss shingles [facility], January 15, 2015 PA Unknown [facility], October 08, 2014 NAEEM mckeon [facility], September 28, 2014 PA Unknown [facility], October PA re-evaluate [facility], October 19, 2014 PA Problems Problem Type Condition ICD-9 Code Onset Dates Condition Statu s Problem Unspecified vitamin D deficiency 268.9 Active Problem Mixed hyperlipidemia 272.2 Active Problem Unspecified hypothyroidism 244.9 A ctive Problem Pure hypercholesterolemia 272.0 Ac tive Assessment Other specified acquired 244.8 Act maximo hypothyroidism Problem Mixed hyperlipidemia 272.2 Active Problem Diabetes mellitus without 250.02 Ac tive mention of complication, type II or unspecified type, uncontrolled Problem Diabetes mellitus without 250.00 Ac tive mention of complication, type II or unspecified type, not stated as uncontrolled Problem Esophageal reflux 530.81 Active Problem Morbid obesity 278.01 Active Problem Hypertension benign 401.1 Active Assessment Obesity (BMI 30.0-34.9) 278.00 Acti ve Assessment GERD (gastroesophageal reflux 530.81 Active disease) Assessment Osteopenia 733.90 Active Assessment COPD (chronic obstructive 496 Ac tive pulmonary disease) Assessment Diabetes mellitus 250.00 Active Assessment Cervicalgia 723.1 Active Assessment Autonomic neuropathy 337.9 Active Problem Depressive disorder, not 311 Act maximo elsewhere classified Assessment Depression 311 Active Problem incontinence Female stress 625.6 A ctive Medications Medication Code System Code Instructions Start End Status Dosa ge Date Date Naproxen [facility] [address]-02 500 mg Active TAKE 1 TABLET BY MOUTH TWICE A DAY NEEDED Marycarmen BD ultra Unknown 0 4mm x 32g Active Unknown fine pen needles intradermally Ultram [facility] [address]-67 50 mg Orally November 03, Active 1 ta blet twice a day 2014 as needed (bid) Rittman [facility] [address]-93 5-325 MG Orally September Active 1 tablet three times a 20, as needed day (tid) 2014 Vitamin B-12 [facility] [address]16-[address] 1000 MCG by Active 1 tablet mouth Once a day Levemir Flexpen [facility] [address]-69 100 UNIT/ML Activ e 30 units Subcutaneous twice a day (bid) Levothyroxine [facility] 04611039286 125MCG Active TAKE 1 Sodium TABLET DAILY Xanax [facility] [address]-86 0.5 MG by mouth September Active 1 tablet four times a 02, day (qid) as 2014 needed (prn) Symbicort [facility] [address]-99 80-4.5 MCG/ACT Jul 24, Active 2 puffs Inhalation 2014 Twice a day [facility]ax [facility] [address]-94 70 MG Orally Apr 16, Active 1 ta blet weekly 2013 Sanctura Unknown 0 20 mg by mouth Jul 16, Active 1 tablet Once a day 2013 BD Pen Unknown 0 31.156 SQ december Active as times a day 10, directed (tid) 2013 Flintstones Plus [facility] 88534-[address] Multivitamin Activ e 1 tablet Iron Orally Once a day Calcium + D [facility] [address]-53 600-200 MG-UNIT Activ e 2 tablet Orally twice a with food day (bid) Neurontin [facility] [address]-05 600 MG Orally November 03, Active 1 tablet Three times a 2014 day Omeprazole [facility] [address]-06 20MG by mouth Active 1 tablet once a day Victoza [facility] 51620542349 18 MG/3ML Active 1.8 Subcutaneous Once a day Acyclovir [facility] [address]-73 400 MG Orally November 03, Active 1 tablet Three times a 2014 day Viibryd [facility] 84948780174 40MG as Active TAKE 1 directed daily TABLET DAILY Social History Social History Element Qualifiers Date Reported Tobacco Use: . Are you a: former smoker, Age December started: 13, Age stopped: 51, Number of packs per day: 3 Use of recreational / street drugs? . Answer: No January 15, 2015 Do you have pets? . Status: No January 15, 2015 Marital Status: . January 15, 2015 Caffeine intake? . Status: Yes, What type: Coffee, January 15, 2015 Tea, 1 - 2 cup(s) a day Do you exercise? . Answer: Yes, Type: walking December min 2x day Do you drink alcohol? . Status: No January 15, 2015 Vital Signs Date/Time: January 15, 2015 Weight 284 lbs Height 64 in Temperature 99.1 F Cardiac Monitoring Heart Rate 89 /min Blood Pressure Diastolic 78 mm Hg Blood Pressure Systolic 129 mm Hg Results Hemoglobin A1c Hemoglobin A1c(- ) 6.4 Toradol 30mg Summary Purpose eClinicalWorks Submission
--- OUTSIDE RECORDS SUMMARY | 2019-11-19 16:28 | XMS REPORT ---
:1955 Author Organization eClinicalWorks Care Team Providers Name Role Phone Lorena Lee Provider Role Unavailable Encounters Encounter Location Date Unknown [facility], January 08, 2014 PA cough [facility], Jul 032014 PA refill on xanax [facility], Aug 022014 PA Unknown [facility], Jul 022014 PA cold [facility], Jul 022014 PA poss UTI [facility], Apr 012013 PA refill on fosamax [facility], Jun PA refill on Naproxen [facility], Mar 18, 2014 PA Follow-Up medication [facility], Mar 16, 2014 PA refill medications [facility], Aug 032014 PA Nasonex req PA so changed to Flonase [facility], December 01, 2013 PA Poss sinus inf [facility], November 012013 PA allergies not any better from last [facility], December 05, 2013 visit PA Refills must [facility], December 29, 2013 scripts PA Unknown [facility], September 24, 2013 PA Followup 1 week [facility], October 01, 2013 PA Follow-Up 2 weeks [facility], October 15, 2013 PA Unknown [facility], September 08, 2014 PA refill on fosamax [facility], September 04, 2014 PA Follow-Up med refill [facility], Nov PA Pen needles refill request [facility] , January 08, 2014 PA med refills [facility], October PA refill on Omeprazole [facility], December 23, 2014 PA Refill on meds [facility], January 19, 2015 PA poss shingles [facility], January 15, 2015 PA Unknown [facility], October 08, 2014 PA poss shingles [facility], September 28, 2014 PA Unknown [facility], October PA re-evaluate [facility], October 19, 2014 PA [...] Start End Status Dosa ge Date Date Levothyroxine MEDISPAN 14083225580 125MCG Active TAKE 1 Sodium TABLET DAILY Victoza [facility] [address]-05 18 MG/3ML Active 1.8 Subcutaneous Once a day Social History Social [...] alcohol? . Status: No January 15, 2015 Summary Purpose eClinicalWorks Submission
--- OUTSIDE RECORDS SUMMARY | 2019-11-19 16:28 | XMS REPORT ---
:1955 Author Organization eClinicalWorks Care Team Providers Name Role Phone Lorena Lee Provider Role Unavailable Allergies, Adverse Reactions, Alerts Substance Reaction Event Type sulfa Info Not Available Drug Allergy Bactrim Info Not Available Drug Allergy Encounters Encounter Location Date Nasonex req PA so changed to [facility], December 01, 2013 Flonase PA Poss sinus inf [facility], November 012013 PA allergies not any better from last [facility], December 05, 2013 visit PA Refills [facility], December 29, 2013 scripts PA Unknown [facility], September 24, 2013 PA Followup 1 week [facility], October 01, 2013 PA Follow-Up 2 weeks [facility], October 15, 2013 PA Problems Problem Type [...] Active Problem Hypertension benign 401.1 Active Assessment Depressed 311 Active Assessment Diabetes mellitus without 250.00 Ac tive mention of complication, type II or unspecified type, not stated as uncontrolled Assessment Other specified acquired 244.8 Act maximo hypothyroidism Assessment Allergic rhinitis due to pollen 477.0 Active Assessment Reflux esophagitis 530.11 Active Problem Depressive disorder, not 311 Act maximo elsewhere classified Assessment Obesity (BMI 30.0-34.9) 278.00 Acti ve Problem incontinence Female stress 625.6 A ctive Medications Medication Code System Code Instructions Start End Status Dosa ge Date Date Xanax MEDISPAN 21015-58 0.5 MG by mouth September Active 1 tabl et 55-01 twice a day 2013 (bid) Flonase MEDISPAN 07771-75 50 MCG/ACT December 01, Active 1 spray in 53-01 Nasally twice a 2013 each day (bid) nostril Lovastatin MEDISPAN 92265-12 40MG Active TAKE 1 28-06 TABLET DAILY Linzess MEDISPAN 47749-17 145 MCG by September Active 1 capsule 01-30 mouth Once a 2013, day 2013 [facility] 05691-37 125MCG Active 1 po qd Sodium 49-07 Jolie Allergy MEDISPAN 90125-70 180 MG Orally November 28, Feb 26, Active 1 tablet 20-00 Once a day 2013 2013 Flintstones Plus [facility] 80074-14 Multivitamin Active 1 tablet Iron 905 Orally Once a day Levemir Flexpen MEDISPAN 64105-79 30 mg Active INJECT 30 39-10 Subcutaneous UNITS SQ once a day TWICE A DAY Viibryd MED[facility] 26284-60 40MG Active TAKE 1 00-31 TABLET DAILY Omeprazole [facility] 03543-54 20MG Active TAKE 1 70-03 CAPSULE DAILY Calcium + D MEDISPAN 37051-81 600-200 MG-UNIT Active 2 tablet 56-52 Orally twice a with food day (bid) Lisinopril MEDISPAN 01691-57 20 mg Orally Active 1 tabl et 68-01 Once a day Naprosyn MEDISPAN 35450-64 500 mg by mouth August Active 1 tab let as 16-01 twice a day 2013 24, needed (bid) 2013 Vitamin B-12 MEDISPAN 48707-33 1000 MCG by Active 1 tab let 661 mouth Once a day Sanctura MEDISPAN 88333-77 20 mg by mouth Jul 16, Active 1 tabl et 13-60 Once a day 2013 Medrol (Ezequiel) MEDISPAN 40811-51 4 mg Orally as December 05November Active a s directed 56-04 directed 2013 Victoza MEDISPAN 64432-45 18 MG/3ML Active 0.2 ml 60-12 Subcutaneous [...] December 22, 2013 Vital Signs Date/Time: December 05, 2013 Weight 262 lbs Height 64 in Temperature 98.3 F Cardiac Monitoring Heart Rate 70 /min Blood Pressure Diastolic 61 mm Hg Blood Pressure Systolic 115 mm Hg Summary Purpose eClinicalWorks Submission
--- OUTSIDE RECORDS SUMMARY | 2019-11-19 16:29 | XMS REPORT ---
:1955 Author Organization eClinicalWorks Care Team Providers Name Role Phone Lorena Lee Provider Role Unavailable Allergies, Adverse Reactions, Alerts Substance Reaction Event Type sulfa Info Not Available Drug Allergy Bactrim Info Not Available Drug Allergy Encounters Encounter Location Date Nasonex req PA so changed to Flonase [facility], December 01, 2013 PA Poss sinus inf [facility], November 012013 PA allergies not any better from last [facility], December 05, 2013 visit PA Refills must go through [facility], December 29, 2013 scripts PA Unknown [facility], September 24, 2013 PA Followup 1 week [facility], October 01, 2013 PA Follow-Up 2 weeks [facility], October 15, 2013 PA Unknown [facility], January 08, 2014 PA Follow-Up med refill [facility], Nov PA Pen needles refill request [facility] , January 08, 2014 PA Unknown [facility], Jul 022014 PA cold [facility], Jul 022014 PA poss UTI [facility], Apr 012013 PA refill on fosamax [facility], Jun PA refill on Naproxen [facility], Mar 18, 2014 PA Follow-Up medication [facility], Mar 16, 2014 PA Problems Problem [...] Active Problem Hypertension benign 401.1 Active Assessment Urge incontinence 788.31 Active Assessment Other specified acquired 244.8 Act maximo hypothyroidism Assessment GERD (gastroesophageal reflux 530.81 Active disease) Assessment Bad odor of urine 791.9 Active Assessment Depression 311 Active Problem Depressive disorder, not 311 Act maximo elsewhere classified Assessment Diabetes mellitus 250.00 Active Problem incontinence Female stress 625.6 A ctive Medications Medication Code System Code Instructions Start End Status Dosa ge Date Date Vitamin B-12 [place] [address]34 1000 MCG by Active 1 tablet mouth Once a day Levothyroxine [place] 25593595098 125MCG Active 1 po qd Sodium Fosamax [place] [address]-33 70 MG Orally Apr 16, Active 1 ta blet weekly 2013 Victoza [place] [address]-32 18 MG/3ML Jun 08, Active 1.8 Subcutaneous 2014 Once a day Macrobid [place] [address]-98 100 mg Orally Apr 16, Active 1 capsule twice a day 2013 with food (bid) Levemir Flexpen [place] [address]-87 30 mg Active i nject 30 Subcutaneous units sq twice a day twice a (bid) day Xanax [place] [address]-62 0.5 MG by September Active 1 table t mouth four 02, times a day 2013 (qid) as needed (prn) Naproxen [place] [address]-23 500 mg Active TAKE 1 TABLET BY MOUTH TWICE A DAY NEEDED Flintstones Plus [place] [address]25 Multivitamin Activ e 1 tablet Iron Orally Once a day Calcium + D [place] [address]-17 600-200 Active 2 tab let MG-UNIT Orally with food twice a day (bid) Omeprazole [place] [address]-77 20MG by mouth Active 1 tablet once a day Levemir Unknown 0 100 unit/ml Jul 08, Active as FlexTouch subcutaneous 2014 directed 30u bid [place]ura Unknown 0 20 mg by mouth Jul 16, Active 1 tablet Once a day 2013 BD Pen Unknown 0 31.156 SQ December Active as three times a 10, directed day (tid) 2013 Viibryd [place] 39363317301 40MG Active TAKE 1 TABLET DAILY Social History Social History Element Qualifiers Date Reported Tobacco Use: . Are you a: former smoker, Age Jul 17, 2014 started: 13, Age stopped: 51, Number of packs per day: 3 Use of recreational / street drugs? . Answer: No Jul 17, 2014 Do you have pets? . Status: No Jul 17, 2014 Marital Status: . Jul 17, 2014 Caffeine intake? . Status: Yes, What type: Coffee, Jul 022014 Tea, 1 - 2 cup(s) a day Do you exercise? . Answer: Yes, Type: walking Jul 17, 2014 min 2x day Do you drink alcohol? . Status: No Jul 17, 2014 Vital Signs Date/Time: Jul 17, 2014 Weight 278.6 lbs Height 64 in Temperature 99.7 F Cardiac Monitoring Heart Rate 86 /min Blood Pressure Diastolic 61 mm Hg Blood Pressure Systolic 105 mm Hg Summary Purpose eClinicalWorks Submission
--- OUTSIDE RECORDS SUMMARY | 2019-11-19 16:29 | XMS REPORT ---
:1955 Author Organization eClinicalWorks Care Team Providers Name Role Phone Lorena Lee Provider Role Unavailable Allergies, Adverse Reactions, Alerts Substance Reaction Event Type sulfa Info Not Available Drug Allergy Bactrim Info Not Available Drug Allergy Encounters Encounter Location Date Nasonex req PA so changed to Flonase [facility], December 01, 2013 PA Poss sinus inf [facility], November 012013 PA allergies not any better from last [facility], December 05, 2013 visit PA Refills must go through [facility], December 29, [address] [facility], September 24, 2013 PA refill on Naproxen [facility], Mar 18, 2014 PA Followup [address] [facility], October 01, 2013 PA Follow-Up medication [facility], Mar 16, 2014 PA Follow-Up [address] [facility], October 15, [address] [facility], January 08, 2014 PA Follow-Up med refill [facility], Nov PA Pen needles refill request [facility] , January 08, 2014 PA Problems Problem Type Condition ICD-9 Code Onset Dates Condition Statu s Problem Unspecified vitamin D deficiency 268.9 Active Problem Mixed hyperlipidemia 272.2 Active Problem Unspecified hypothyroidism 244.9 A ctive Problem Pure hypercholesterolemia 272.0 Ac tive Assessment incontinence Female stress 625.6 A ctive Problem Mixed hyperlipidemia 272.2 Active Assessment Morbid obesity 278.01 Active Problem Diabetes mellitus without 250.02 Ac tive mention of complication, type II or unspecified type, uncontrolled Problem Diabetes mellitus without 250.00 Ac tive mention of complication, type II or unspecified type, not stated as uncontrolled Problem Esophageal reflux 530.81 Active Problem Morbid obesity 278.01 Active Problem Hypertension benign 401.1 Active Assessment Depression 311 Active Assessment GERD (gastroesophageal reflux 530.81 Active disease) Assessment Anxiety 300.00 Active Assessment Immunization counseling V65.49 Acti ve Assessment Cervicalgia 723.1 Active Assessment Diabetes mellitus without 250.00 Ac tive mention of complication, type II or unspecified type, not stated as uncontrolled Assessment Flu vaccine need V04.81 Active Problem Depressive disorder, not 311 Act maximo elsewhere classified Assessment Other specified acquired 244.8 Act maximo hypothyroidism Problem incontinence Female stress 625.6 A ctive Medications Medication Code System Code Instructions Start End Status Dosa ge Date Date Levothyroxine [facility] 15264776791 125MCG Active 1 po qd Sodium Flintstones Plus [facility] [address] Multivitamin Activ e 1 tablet Iron Orally Once a day Viibryd [facility] [address]-79 40MG by mouth Active charissa e 1 once a day tablet daily Calcium + D [facility] [address]-23 600-200 Active 2 tab let MG-UNIT Orally with food twice a day (bid) BD Pen Unknown 0 31.156 SQ December Active as three times a 10, directed day (tid) 2013 Vitamin B-12 [facility] [address] 1000 MCG by Active 1 tablet mouth Once a day Flonase [facility] [address]-51 50 MCG/ACT November Active 1 spra y in Nasally twice 02, each a day (bid) 2013 nostril Victoza [facility] [address]-23 18 MG/3ML Jun Active 1.8 Subcutaneous 27, Once a day 2013 Levemir Flexpen [facility] [address]-93 30 mg Active i nject 30 Subcutaneous units sq twice a day twice a (bid) day Sanctura [facility] [address]-09 20 mg by mouth Jul 16, Active 1 tablet Once a day 2013 Xanax [facility] [address]-42 0.5 MG by September Active 1 table t mouth four 02, times a day 2013 (qid) as needed (prn) Omeprazole Unknown 0 20MG by mouth Active 1 table t once a day Naproxen [facility] 49494616613 500 MG Active TAKE 1 TABLET BY [...] alcohol? . Status: No Mar 16, 2014 Vital Signs Date/Time: Mar 16, 2014 Weight 260.8 lbs Height 64 in Temperature 98.3 F Cardiac Monitoring Heart Rate 81 /min Blood Pressure Diastolic 68 mm Hg Blood Pressure Systolic 121 mm Hg Immunizations Vaccine Administration Date Influenza (correct) Mar 16, 2014 Summary Purpose eClinicalWorks Submission
--- OUTSIDE RECORDS SUMMARY | 2019-11-19 16:29 | XMS REPORT ---
:1955 Author Organization eClinicalWorks Care Team Providers Name Role Phone Lorena Lee Provider Role Unavailable Encounters Encounter Location Date Nasonex req PA so changed to Flonase [facility], December 01, 2013 PA Poss sinus inf [facility], November 012013 PA allergies not any better from last [facility], December 05, 2013 visit [facility], December 29, 2013 scripts PA Unknown [facility], September 24, 2013 PA Followup 1 week [facility], October 01, 2013 PA Follow-Up 2 weeks [facility], October 15, 2013 PA Unknown [facility], January 08, 2014 PA Follow-Up med refill [facility], Nov PA Pen needles refill request [facility] , January 08, 2014 PA poss UTI [facility], Apr 012013 PA refill on fosamax [facility], Jun PA refill on Naproxen [facility], Mar 18, 2014 PA Follow-Up medication [facility], Mar 16, 2014 PA Problems Problem [...] Instructions Start Date End Date Status Dosage Fosamax [facility] [address] 70 MG Orally Apr 16 1 table t -21 weekly 2013 Social History Social History Element Qualifiers [...] you exercise? . Answer: Yes, Type: walking Apr 16, 2014 min 2x day Do you drink alcohol? . Status: No Apr 16, 2014 Summary Purpose eClinicalWorks Submission
--- OUTSIDE RECORDS SUMMARY | 2019-11-19 16:29 | XMS REPORT ---
:1955 Author Organization eClinicalWorks Care Team Providers Name Role Phone Lorena Lee Provider Role Unavailable Encounters Encounter Location Date Nasonex req PA so changed to Flonase [facility], December 01, 2013 PA Poss sinus inf [facility], November 012013 PA allergies not any better from last [facility], December 05, 2013 visit [facility] December [facility], 2013 scripts PA Unknown [facility], September 24, 2013 PA Followup 1 week [facility], October 01, 2013 PA Follow-Up 2 weeks [facility], October 15, 2013 PA Unknown [facility], January 08, 2014 PA Follow-Up med refill [facility], Nov PA Pen needles refill request [facility] , January 08, 2014 PA Unknown [facility], Jul 022014 PA poss UTI [facility], Apr 012013 PA refill on fosamax [facility], Jun PA refill on Naproxen [facility], Mar 18, 2014 PA Follow-Up medication [facility], Mar 16, 2014 PA Problems Problem Type Condition ICD-9 Code Onset Dates Condition Statu s Assessment Esophageal reflux 530.81 Active Social History Social History Element Qualifiers [...]
--- OUTSIDE RECORDS SUMMARY | 2019-11-19 16:29 | XMS REPORT ---
:1955 Author Organization eClinicalWorks Care Team Providers Name Role Phone Lorena Lee Provider Role Unavailable Allergies, Adverse Reactions, Alerts Substance Reaction Event Type sulfa Info Not Available Drug Allergy Bactrim Info Not Available Drug Allergy Encounters Encounter Location Date Nasonex req PA so changed to Flonase [facility], December 01, 2013 PA Poss sinus inf [facility], November 012013 PA allergies not any better from last [facility], December 05, 2013 visit [facility], December 29, 2013 scripts PA Unknown [facility], September 24, 2013 PA Followup 1 week [facility], October 01, 2013 PA Follow-Up 2 weeks [facility], October 15, 2013 PA Unknown [facility], January 08, 2014 PA Follow-Up med refill [facility], Nov PA Pen needles refill request [facility] , January 08, 2014 PA cough [facility], Jul 032014 PA Unknown [facility], Jul 022014 PA cold [facility], Jul 022014 PA poss UTI [facility], Apr 012013 PA refill on fosamax [facility], Jun PA refill on Naproxen [facility], Mar 18, 2014 PA Follow-Up medication [facility], Mar 16, 2014 PA Problems Problem [...] Problem Hypertension benign 401.1 Active Assessment Obesity 278.00 Active Assessment Acute bronchitis 466.0 Active Assessment Diabetes mellitus 250.00 Active Problem Depressive disorder, not 311 Act maximo elsewhere classified Assessment Other specified acquired 244.8 Act maximo hypothyroidism Problem incontinence Female stress 625.6 A ctive Medications Medication Code System Code Instructions Start End Status Dosa ge Date Date Victoza [facility] [address]-35 18 MG/3ML Jun 08, Active 1.8 Subcutaneous 2013 Once a day Fosamax [facility] [address]-93 70 MG Orally Apr 16, Active 1 ta blet weekly 2013 Sanctura Unknown 0 20 mg by mouth Jul 16, Active 1 tablet Once a day 2013 BD Pen Unknown 0 31.156 SQ three December Active as times a day 10, directed (tid) 2013 Symbicort [facility] [address]-06 80-4.5 MCG/ACT Jul 24, Active 2 puffs Inhalation 2014 Twice a day Vitamin B-12 [facility] 36[address]3510 1000 MCG by Active 1 tablet mouth Once a day Levemir Unknown 0 100 unit/ml Jul 08, Active as FlexTouch subcutaneous 2014 directed 30u bid Calcium + D [facility] [address]-93 600-200 MG-UNIT Activ e 2 tablet Orally twice a with food day (bid) Flintstones Plus [facility] [address]98 Multivitamin Activ e 1 tablet Iron Orally Once a day Levothyroxine [facility] 81339582481 125MCG Active 1 po qd Sodium Levemir Flexpen [facility] [address]-89 30 mg Active i nject 30 Subcutaneous units sq twice a day twice a (bid) day Zithromax Z-Ezequiel [facility] [address]-22 250 MG Orally Jul 24, Act maximo 2 tablets Once a day 2014 on the first day, then 1 tablet daily for 4 days Omeprazole [facility] [address]-08 20MG by mouth Active 1 tablet once a day Naproxen [facility] [address]-62 500 mg Active TAKE 1 TABLET BY MOUTH TWICE A DAY NEEDED Marycarmen BD ultra Unknown 0 4mm x 32g Active Unknown fine pen needles intradermally [facility]robid [facility] [address]-36 100 mg Orally Apr 16, Active 1 capsule twice a day 2013 with food (bid) Viibryd [facility] 78140186190 40MG Active TAKE 1 TABLET DAILY Xanax [facility] [address]-78 0.5 MG by mouth September Active 1 tablet four times a 02, day (qid) as 2014 needed (prn) Social History Social History Element Qualifiers Date Reported Tobacco Use: . Are you a: former smoker, Age Jul 24, 2014 started: 13, Age stopped: 51, Number of packs per day: 3 Use of recreational / street drugs? . Answer: No Jul 24, 2014 Do you have pets? . Status: No Jul 24, 2014 Marital Status: . Jul 24, 2014 Caffeine intake? . Status: Yes, What type: Coffee, Jul 032014 Tea, 1 - 2 cup(s) a day Do you exercise? . Answer: Yes, Type: walking 15 Jul 24, 2014 min 2x day Do you drink alcohol? . Status: No Jul 24, 2014 Family history Qualifier Description Comment Date Reported Father heart disease, dementia Jul 24, 2014 Mother alive type II diabetes Jul 24, 2014 Siblings alive stroke, type I diabetes Jul 24, 2014 Vital Signs Date/Time: Jul 24, 2014 Weight 278.0 lbs Height 64 in Temperature 99.2 F Cardiac Monitoring Heart Rate 74 /min Blood Pressure Diastolic 69 mm Hg Blood Pressure Systolic 111 mm Hg Summary Purpose eClinicalWorks Submission
--- OUTSIDE RECORDS SUMMARY | 2019-11-19 16:30 | XMS REPORT ---
:1955 Author Organization eClinicalWorks Care Team Providers Name Role Phone Lorena Lee Provider Role Unavailable Allergies, Adverse Reactions, Alerts Substance Reaction Event Type sulfa Info Not Available Drug Allergy Bactrim Info Not Available Drug Allergy Encounters Encounter Location Date Nasonex req PA so changed to Flonase [facility], December 01, 2013 PA Poss sinus inf [facility], November 012013 PA allergies not any better from last [facility], December 05, 2013 visit PA [facility] December [facility], 2013 scripts PA Unknown [facility], September 24, 2013 PA Followup 1 week [facility], October 01, 2013 PA Follow-Up 2 weeks [facility], October 15, 2013 PA Unknown [facility], January 08, 2014 PA Unknown [facility], September 08, 2014 PA refill on fosamax [facility], September 04, 2014 PA Follow-Up med refill [facility], Nov PA Pen needles refill request [facility] , January 08, 2014 PA cough [facility], Jul 032014 PA refill on xanax [facility], Aug 022014 PA Unknown [facility], Jul 022014 PA cold [facility], Jul 022014 PA Unknown [facility], October 08, 2014 PA poss UTI [facility], Apr 012013 PA poss shingles [facility], September 28, 2014 PA refill on fosamax [facility], Jun PA refill on Naproxen [facility], Mar 18, 2014 PA Follow-Up medication [facility], Mar 16, 2014 PA refill medications [facility], Aug 032014 PA Problems Problem Type Condition ICD-9 Code [...] Active Problem Hypertension benign 401.1 Active Assessment Osteopenia 733.90 Active Assessment Depression 311 Active Assessment Obesity 278.00 Active Assessment Colon cancer screening V76.51 Activ e Assessment Other specified acquired 244.8 Act maximo hypothyroidism Assessment 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 Assessment Diabetes mellitus 250.00 Active Problem Depressive disorder, not 311 Act maximo elsewhere classified Assessment GERD (gastroesophageal reflux 530.81 Active disease) Problem incontinence Female stress 625.6 A ctive Medications Medication Code System Code Instructions Start End Status Dosa ge Date Date Levemir Flexpen [facility] [address]-40 100 UNIT/ML Activ e 30 units Subcutaneous twice a day (bid) Marycarmen BD ultra Unknown 0 4mm x 32g Active Unknown fine pen needles intradermally Valtrex [facility] [address]-81 1 GM Orally August Active 1 tab let three times a 30, day (tid) 2014 Vitamin B-[facility] [address] 1000 MCG by Active 1 tablet mouth Once a day Neurontin [facility] [address]-78 300 MG Orally August Active 1 capsule twice a day 30, (bid) 2014 Calcium + D [facility] [address]-79 600-200 MG-UNIT Activ e 2 tablet Orally twice a with food day (bid) Symbicort [facility] [address]-33 80-4.5 MCG/ACT Jul 24, Active 2 puffs Inhalation 2014 Twice a day Xanax [facility] [address]-14 0.5 MG by mouth September Active 1 tablet four times a 02, day (qid) as 2014 needed (prn) BD Pen Unknown 0 31.156 SQ three December Active as times a day 10, directed (tid) 2013 Sanctura Unknown 0 20 mg by mouth Jul 16, Active 1 tablet Once a day 2013 Omeprazole [facility] [address]-66 20MG by mouth Active 1 tablet once a day Levothyroxine [facility] 61543053771 125MCG Active TAKE 1 Sodium TABLET DAILY Fosamax [facility] [address]-14 70 MG Orally Oct 16, Active 1 ta blet weekly 2013 Viibryd [facility] 01456562064 40MG as Active TAKE 1 directed daily TABLET DAILY Flintstones Plus [facility] 30754-[address]66 Multivitamin Activ e 1 tablet Iron Orally Once a day Naproxen [facility] [address]-85 500 mg Active TAKE 1 TABLET BY MOUTH TWICE A DAY NEEDED Victoza [facility] 95910034661 18 MG/3ML Active 1.8 Subcutaneous Once a day Social History Social History Element Qualifiers Date Reported Tobacco Use: . Are you a: former smoker, Age September 012014 started: 13, Age stopped: 51, Number of packs per day: 3 Use of recreational / street drugs? . Answer: No Sami 2014 Do you have pets? . Status: No September 28, 2014 Marital Status: . September 28, 2014 Caffeine intake? . Status: Yes, What type: Coffee, September 28, 2014 Tea, 1 - 2 cup(s) a day Do you exercise? . Answer: Yes, Type: walking September 012014 min 2x day Do you drink alcohol? . Status: No September 28, 2014 Vital Signs Date/Time: September 28, 2014 Weight 281.0 lbs Height 64 in Temperature 99.0 F Cardiac Monitoring Heart Rate 85 /min Blood Pressure Diastolic 60 mm Hg Blood Pressure Systolic 125 mm Hg Summary Purpose eClinicalWorks Submission
--- OUTSIDE RECORDS SUMMARY | 2019-11-19 16:30 | XMS REPORT ---
:1955 Author Organization eClinicalWorks Care Team Providers Name Role Phone Lorena Lee Provider Role Unavailable Allergies, Adverse Reactions, Alerts Substance Reaction Event Type sulfa Info Not Available Drug Allergy Bactrim Info Not Available Drug Allergy Encounters Encounter Location Date Unknown [facility], January 08, 2014 PA Follow-Up shingles [facility], Jan [address] [facility] [address] [facility], Jul 032014 PA refill on xanax [facility], Aug [address] [facility], Jul [address] [facility], Jul [address] [facility], Apr 012013 PA refill on fosamax [facility], Jun PA refill on Naproxen [facility], Mar 18, 2014 PA Follow-Up medication [facility], Mar 16, [address] [facility], Aug 032014 PA Nasonex req PA so changed to Flonase [facility], December 01, 2013 PA Poss sinus inf [facility], November 012013 PA allergies not any better from last [facility], December 05, 2013 visit PA [facility], December 29, [address] [facility], September 24, 2013 PA Followup [address] [facility], October 01, 2013 PA Follow-Up [address] [facility], October 15, [address] [facility], September 08, 2014 PA refill on fosamax [facility], September 04, 2014 PA Follow-Up med refill [facility], Nov PA Pen needles refill request [facility] , January 08, [address] [facility], October PA refill on Omeprazole [facility], December 23, 2014 PA Refill on meds [facility], January 19, [address] [facility], January 15, 2015 PA Unknown [facility], October 08, 2014 PA dixie mckeon [facility], September 28, 2014 PA Unknown [facility], October PA re-evaluate [facility], October 19, 2014 PA Problems Problem Type [...] 401.1 Active Assessment Depression 311 Active Assessment Osteopenia 733.90 Active Assessment Obesity (BMI 30-39.9) 278.00 Active Assessment Diabetes mellitus 250.00 Active Assessment Neuropathy 355.9 Active Assessment Other specified acquired 244.8 Act maximo hypothyroidism Problem Depressive disorder, not 311 Act maximo elsewhere classified Assessment GERD (gastroesophageal reflux 530.81 Active disease) Problem incontinence Female stress 625.6 A ctive Medications Medication Code System Code Instructions Start End Status Dosa ge Date Date Calcium + D [facility] [address]-79 600-200 MG-UNIT Activ e 2 tablet Orally twice a with food day (bid) Xanax [facility] [address]-51 0.5 MG by mouth September Active 1 tablet four times a 02, day (qid) as 2014 needed (prn) Potassimin [facility] [address]-48 75 MG Orally Active 1 tablet Once a day BD Pen Unknown 0 31.156 SQ three December Active as times a day 10, directed (tid) 2013 CoQ-10 [facility] [address] 30 MG Orally Active 1 caps ule Once a day with a meal [place] [facility] [address]-76 5-325 MG Orally September Active 1 tablet three times a 20, as needed day (tid) 2014 Levothyroxine [facility] 69114392639 125MCG Active TAKE 1 Sodium TABLET DAILY Flintstones Plus [facility] [address] Multivitamin Activ e 1 tablet Iron Orally Once a day Marycarmen BD ultra Unknown 0 4mm x 32g Active Unknown fine pen needles intradermally Levemir Flexpen [facility] [address]-83 100 UNIT/ML Activ e 30 units Subcutaneous twice a day (bid) Fish Oil [facility] [address]-69 1000 MG Orally Active 1 capsule Once a day Viibryd [facility] 23769660364 40MG as Active TAKE 1 directed daily TABLET DAILY Symbicort [facility] [address]-10 80-4.5 MCG/ACT Jul 24, Active 2 puffs Inhalation 2014 Twice a day Neurontin [facility] [address]-42 600 MG Orally November 03, Active 1 tablet Three times a 2014 day Victoza [facility] [address]-59 18 MG/3ML Active 1.8 Subcutaneous Once a day Ultram [facility] [address]-76 50 mg Orally November 03, Active 1 ta blet twice a day 2014 as needed (bid) Acyclovir [facility] [address]-95 400 MG Orally November 03, Active 1 tablet Three times a 2014 day Omeprazole [facility] [address]-27 20MG by mouth Active 1 tablet once a day Naproxen [facility] [address]-51 500 mg Active TAKE 1 TABLET BY MOUTH TWICE A DAY NEEDED Sanctura Unknown 0 20 mg by mouth Jul 16, Active 1 tablet Once a day 2013 Vitamin B-12 [facility] 96906-66993 1000 MCG by Active 1 tablet mouth Once a day Fosamax [facility] [address]-93 70 MG Orally Apr 16, Active 1 ta blet weekly 2013 Social History Social History Element Qualifiers Date Reported Tobacco Use: . Are you a: former smoker, Age Feb 15, 2015 started: 13, Age stopped: 51, Number of packs per day: 3 Use of recreational / street drugs? . Answer: No Feb 15, 2015 Do you have pets? . Status: No Feb 15, 2015 Marital Status: . Feb 15, 2015 Caffeine intake? . Status: Yes, What type: Coffee, Jan 302014 Tea, 1 - 2 cup(s) a day Do you exercise? . Answer: Yes, Type: walking Feb 15, 2015 min 2x day Do you drink alcohol? . Status: No Feb 15, 2015 Family history Qualifier Description Comment Date Reported Maternal Grandmother Comment not available Jan 302014 Paternal Grandmother Comment not available Jan 302014 Siblings alive stroke, type I diabetes Feb 15, 2015 Maternal Grandfather Comment not available Jan 302014 Children Comment not available Feb 15 Father heart disease, dementia Feb 15, 2015 Paternal Grandfather Comment not available Jan 302014 Mother alive type II diabetes Feb 15, 2015 Other: Comment not available Feb 15 Vital Signs Date/Time: Feb 15, 2015 Weight 287.4 lbs Height 64 in Temperature 98.7 F Cardiac Monitoring Heart Rate 86 /min Blood Pressure Diastolic 58 mm Hg Blood Pressure Systolic 134 mm Hg Results Dexamethasone 1/2cc Summary Purpose eClinicalWorks Submission
--- OUTSIDE RECORDS SUMMARY | 2019-11-19 16:31 | XMS REPORT ---
:1955 Author Organization eClinicalWorks Care Team Providers Name Role Phone Lorena Lee Provider Role Unavailable Allergies, Adverse Reactions, Alerts Substance Reaction Event Type sulfa Info Not Available Drug Allergy Bactrim Info Not Available Drug Allergy Encounters Encounter Location Date Unknown [facility], January 08, 2014 PA Follow-Up meds [facility], Jun PA Refill on Fosamax [facility], Mar 03, 2015 PA Follow-Up shingles [facility], Jan 302014 PA cough [facility], Jul 032014 PA refill on xanax [facility], Aug 022014 PA Unknown [facility], Jul 022014 PA cold [facility], Jul 022014 PA poss UTI [facility], Apr 012013 PA refill on fosamax [facility], Jun PA refill on Naproxen [facility], Mar 18, 2014 PA Follow-Up medication [facility], Mar 16, 2014 PA refill medications [facility], Aug 032014 PA Nasonex req PA so changed to Flonase [facility], December 01, 2013 PA Poss sinus inf [facility], November 012013 PA allergies not any better from last [facility], December 05, 2013 visit PA [facility], December 29, 2013 scripts PA Unknown [facility], September 24, 2013 PA Followup 1 week [facility], October 01, 2013 PA Follow-Up 2 weeks [facility], October 15, 2013 PA Unknown [facility], September 08, 2014 PA refill on fosamax [facility], September 04, 2014 PA Follow-Up med refill [facility], Nov PA Pen needles refill request [facility] , January 08, 2014 PA med refills [facility], October PA refill on Omeprazole [facility], December 23, 2014 PA Refill on meds [facility], January 19, 2015 PA dixie mckeon [facility], January 15, 2015 PA Unknown [facility], October 08, 2014 PA dixie mckeon [facility], September 28, 2014 PA Unknown [facility], October PA re-evaluate [facility], October 19, 2014 PA Problems Problem Type Condition ICD-9 Code Onset Dates Condition Statu s Problem Unspecified vitamin D deficiency 268.9 Active Problem Mixed hyperlipidemia 272.2 Active Problem Unspecified hypothyroidism 244.9 A ctive Problem Pure hypercholesterolemia 272.0 Ac tive Assessment Hypothyroidism, unspecified E03.9 Active Problem Mixed hyperlipidemia 272.2 Active Assessment Cervicalgia M54.2 Active Problem Diabetes mellitus without 250.02 Ac tive mention of complication, type II or unspecified type, uncontrolled Problem Diabetes mellitus without 250.00 Ac tive mention of complication, type II or unspecified type, not stated as uncontrolled Problem Esophageal reflux 530.81 Active Problem Morbid obesity 278.01 Active Problem Hypertension benign 401.1 Active Assessment Insomnia G47.00 Active Assessment Morbid (severe) obesity due to E66.01 Active excess calories Assessment Other disorders of autonomic G90.8 Active nervous system Assessment Anxiety disorder, unspecified F41.9 Active Assessment Gastro-esophageal reflux disease K21.9 Active without esophagitis Assessment Type 2 diabetes mellitus without E11.9 Active complications Assessment Disorder of bone density and M85.9 Active structure, unspecified Problem Depressive disorder, not 311 Act maximo elsewhere classified Assessment Major depressive disorder, F32.9 A ctive single episode, unspecified Problem incontinence Female stress 625.6 A ctive Medications Medication Code System Code Instructions Start End Status Dosa ge Date Date Adipex-P [facility] [address]-81 37.5 MG Orally Jun 04, Active 1 tablet Once a day 2014 Neurontin [facility] [address]-81 600 MG Orally November 03, Active 1 tablet Three times a 2014 day Fish Oil [facility] [address]-31 1000 MG Orally Active 1 capsule Once a day Symbicort [facility] [address]-54 80-4.5 MCG/ACT Jul 24, Active 2 puffs Inhalation 2014 Twice a day [place] [facility] [address]-71 5-325 MG Orally September Active 1 tablet three times a 20, as needed day (tid) 2014 Omeprazole [facility] [address]-32 20MG by mouth Active 1 tablet once a day Marycarmen BD ultra Unknown 0 4mm x 32g Active as fine pen needles intradermally d irected three times a day (tid) Calcium + D [facility] [address]-04 600-200 MG-UNIT Activ e 2 tablet Orally twice a with food day (bid) CoQ-10 [facility] [address]607 30 MG Orally Active 1 caps ule Once a day with a meal Viibryd [facility] 63656312761 40MG Orally Active 1 table t daily Flintstones Plus [facility] [address] Multivitamin Activ e 1 tablet Iron Orally Once a day Levothyroxine [facility] 85465147411 125MCG orally Active 1 tablet Sodium daily Naproxen [facility] 05818290029 500MG Orally Active 1 tab let twice a day (bid) Levemir Flexpen [facility] [address]-45 100 UNIT/ML Activ e 30 units Subcutaneous twice a day (bid) Victoza [facility] 02376513477 6MG/ML SQ daily Active 1.8 mg Fosamax [facility] [address]-51 70 MG Orally Apr 16, Active 1 ta blet weekly 2013 Xanax [facility] [address]-77 0.5 MG Orally Active 1 t ablet four times a day (qid) BD Pen Unknown 0 31.156 SQ december Active as times a day 10, directed (tid) 2013 Vitamin B-12 [facility] [address]782 1000 MCG by Active 1 tablet mouth Once a day Acyclovir [facility] [address]-55 400 MG Orally November 03, Active 1 tablet Three times a 2014 day Potassimin [facility] [address]-81 75 MG Orally Active 1 tablet Once a day Ultram [facility] [address]-90 50 mg Orally November 03, Active 1 ta blet twice a day 2014 as needed (bid) Sanctura Unknown 0 20 mg by mouth Jul 16, Active 1 tablet Once a day 2013 Social History Social History Element Qualifiers Date Reported Tobacco Use: . Are you a: former smoker, Age Jun 04, 2015 started: 13, Age stopped: 51, Number of packs per day: 3 Use of recreational / street drugs? . Answer: No Jun 04, 2015 Do you have pets? . Status: No Jun 04, 2015 Marital Status: . Jun 04, 2015 Caffeine intake? . Status: Yes, What type: Coffee, Jun Tea, 1 - 2 cup(s) a day Do you exercise? . Answer: Yes, Type: walking 15 Jun 04, 2015 min 2x day Do you drink alcohol? . Status: No Jun 04, 2015 Vital Signs Date/Time: Jun 04, 2015 Weight 301.4 lbs Height 64 in Temperature 97.6 F Cardiac Monitoring Heart Rate 83 /min Blood Pressure Diastolic 76 mm Hg Blood Pressure Systolic 174 mm Hg Results Hemoglobin A1c Summary Purpose eClinicalWorks Submission
--- OUTSIDE RECORDS SUMMARY | 2019-11-19 16:31 | XMS REPORT ---
:1955 Author Organization eClinicalWorks Care Team Providers Name Role Phone Lorena Lee Provider Role Unavailable Allergies, Adverse Reactions, Alerts Substance Reaction Event Type sulfa Info Not Available Drug Allergy Bactrim Info Not Available Drug Allergy Encounters Encounter Location Date Unknown [facility], January 08, 2014 PA Unknown [facility], Jun 022014 PA Refill on Fosamax [facility], Mar 03, 2015 PA Follow-Up shingles [facility], Jan 302014 PA cough [facility], Jul 032014 PA refill on xanax [facility], Aug 022014 PA Follow-Up meds [facility], Jun PA Unknown [facility], Jul 022014 PA 1 month [facility], Jul PA cold [facility], Jul 022014 PA poss UTI [facility], Apr 012013 PA refill on fosamax [facility], Jun PA refill on Naproxen [facility], Mar 18, 2014 PA Follow-Up medication [facility], Mar 16, 2014 PA refill medications [facility], Aug 032014 PA Nasonex req PA so changed to Flonase [facility], December 01, 2013 PA Poss sinus inf [facility], November 012013 PA allergies not any better from last [facility], December 05, 2013 visit PA [facility] scripts PA Unknown [facility], September 24, 2013 PA Followup 1 week [facility], October 01, 2013 PA Follow-Up 2 weeks [facility], October 15, 2013 PA Unknown [facility], September 08, 2014 PA refill on fosamax [facility], September 04, 2014 PA Follow-Up med refill [facility], Nov PA Pen needles refill request [facility] , January 08, 2014 PA med refills [facility], October PA refill on Omeprazole [facility], December 23, 2014 PA Refill on meds [facility], January 19, 2015 PA dixie mckeon [facility], January 15, 2015 PA Unknown [facility], October 08, 2014 PA dixie mckeon [facility], September 28, 2014 PA Unknown [facility], October PA re-evaluate [facility], October 19, 2014 PA Problems Problem Type Condition ICD-9 Code Onset Dates Condition Statu s Assessment Gastro-esophageal reflux disease K21.9 Active without esophagitis Problem Female stress incontinence N39.3 A ctive Problem Depressive disorder, not F32.9 Act maximo elsewhere classified Problem Benign essential hypertension I10 Active Assessment Encounter for immunization Z23 A ctive Problem Type II or unspecified type E11.9 Active diabetes mellitus without mention of complication, not stated as uncontrolled Problem Morbid obesity E66.01 Active Problem Hypothyroidism E03.9 Active Problem Vitamin D deficiency E55.9 Active Problem Esophageal reflux K21.9 Active Problem Mixed hyperlipidemia E78.2 Active Assessment Morbid (severe) obesity due to E66.01 Active excess calories Assessment Fatigue R53.83 Active Assessment Osteopenia M85.80 Active Assessment Breast screening Z12.39 Active Assessment Immunization counseling Z71.89 Acti ve Assessment Other specified hypothyroidism E03.8 Active Assessment Shoulder pain, left M25.512 Active Assessment Type 2 diabetes mellitus without E11.9 Active complications Assessment Colon cancer screening Z12.11 Activ e Assessment Major depressive disorder, F32.9 A ctive single episode, unspecified Medications Medication Code System Code Instructions Start End Status Dosa ge Date Date Neurontin [facility] [address]-39 600 MG Orally November 03, Active 1 tablet Three times a 2014 day Naproxen [facility] 97567413711 500MG Orally Active 1 tab let twice a day (bid) Calcium + D [facility] [address]-35 600-200 MG-UNIT Activ e 2 tablet Orally twice a with food day (bid) CoQ-10 [facility] 25495-15583 30 MG Orally Active 1 caps ule Once a day with a meal Fish Oil [facility] [address]-87 1000 MG Orally Active 1 capsule Once a day Victoza [facility] 74473116875 6MG/ML SQ daily Active 1.8 mg Flintstones Plus [facility] 23758-11744 Multivitamin Activ e 1 tablet Iron Orally Once a day Fosamax [facility] [address]-01 70 MG Orally Apr 16, Active 1 ta blet weekly 2013 Adipex-P [facility] [address]-96 37.5 MG Orally Jun 04, Active 1 tablet Once a day 2014 Levemir Flexpen [facility] [address]-66 100 UNIT/ML Activ e 30 units Subcutaneous twice a day (bid) Symbicort [facility] [address]-15 80-4.5 MCG/ACT Jul 24, Active 2 puffs Inhalation 2014 Twice a day Viibryd [facility] 20317857942 40MG Orally Active 1 table t daily Vitamin B-12 [facility] 62421-20079 1000 MCG by Active 1 tablet mouth Once a day BD Pen Unknown 0 31.156 SQ december Active as times a day 10, directed (tid) 2013 Sanctura Unknown 0 20 mg by mouth Jul 16, Active 1 tablet Once a day 2013 Marycarmen BD ultra Unknown 0 4mm x 32g Active as fine pen needles intradermally d irected three times a day (tid) Xanax [facility] [address]-81 0.5 MG Orally Active 1 t ablet four times a day (qid) Acyclovir [facility] [address]-10 400 MG Orally November 03, Active 1 tablet Three times a 2014 day Omeprazole [facility] [address]-64 20MG by mouth Active 1 tablet once a day Potassimin [facility] [address]-85 75 MG Orally Active 1 tablet Once a day Levothyroxine [facility] 63676952867 125MCG orally Active 1 tablet Sodium daily [place] [facility] [address]-91 5-325 MG Orally September Active 1 tablet three times a 20, as needed day (tid) 2014 Ultram [facility] [address]-10 50 mg Orally November 03, Active 1 ta blet twice a day 2014 as needed (bid) Social History Social History Element Qualifiers Date Reported Tobacco Use: . Are you a: former smoker, Age Jul 05, 2015 started: 13, Age stopped: 51, Number of packs per day: 3 Use of recreational / street drugs? . Answer: No Jul 05, 2015 Do you have pets? . Status: No Jul 05, 2015 Marital Status: . Jul 05, 2015 Caffeine intake? . Status: Yes, What type: Coffee, Jul Tea, 1 - 2 cup(s) a day Do you exercise? . Answer: Yes, Type: walking 15 Jul 05, 2015 min 2x day Do you drink alcohol? . Status: No Jul 05, 2015 Vital Signs Date/Time: Jul 05, 2015 Weight 295.4 lbs Height 64 in Temperature 98.6 F Cardiac Monitoring Heart Rate 102 /min Blood Pressure Diastolic 77 mm Hg Blood Pressure Systolic 118 mm Hg Results B12 Immunizations Vaccine Administration Date Influenza (use this) Jul 05, 2015 Pneumococcal 23 (commerical) Jul 05, 2015 Summary Purpose eClinicalWorks Submission
--- OUTSIDE RECORDS SUMMARY | 2019-11-19 16:31 | XMS REPORT ---
:1955 Author Organization eClinicalWorks Care Team Providers Name Role Phone Lorena Lee Provider Role Unavailable Allergies, Adverse Reactions, Alerts Substance Reaction Event Type sulfa Info Not Available Drug Allergy Bactrim Info Not Available Drug Allergy Encounters Encounter Location Date Unknown [facility], January 08, 2014 PA Unknown [facility], Jun 022014 PA Refill on Fosamax [facility], Mar 03, 2015 PA Follow-Up shingles [facility], Jan 302014 PA cough [facility], Jul 032014 PA refill on xanax [facility], Aug 022014 PA Follow-Up meds [facility], Jun PA Unknown [facility], Jul 022014 PA cold [facility], Jul 022014 PA poss UTI [facility], Apr 012013 PA refill on fosamax [facility], Jun PA refill on Naproxen [facility], Mar 18, 2014 PA Follow-Up medication [facility], Mar 16, 2014 PA refill medications [facility], Aug 032014 PA Nasonex req PA so changed to Flonase [facility], December 01, 2013 PA Poss sinus inf [facility], November 012013 PA allergies not any better from last [facility], December 05, 2013 visit PA [facility] 2013 scripts PA Unknown [facility], September 24, 2013 PA Followup 1 week [facility], October 01, 2013 PA Follow-Up 2 weeks [facility], October 15, 2013 PA Unknown [facility], September 08, 2014 PA refill on fosamax [facility], September 04, 2014 PA Follow-Up med refill [facility], Nov PA Pen needles refill request [facility] , January 08, 2014 PA med refills [facility], October PA refill on Omeprazole [facility], December 23, 2014 PA Refill on meds [facility], January 19, 2015 PA dixie mckeon [facility], January 15, 2015 PA Unknown [facility], October 08, 2014 PA dixie mckeon [facility], September 28, 2014 PA Unknown [facility], October PA re-evaluate [facility], October 19, 2014 PA Problems [...] End Status Dosa ge Date Date Adipex-P [facility] [address]-91 37.5 MG Orally Jun 04, Active 1 tablet Once a day 2014 Neurontin [facility] [address]-94 600 MG Orally November 03, Active 1 tablet Three times a 2014 day [facility] [address]-73 1000 MG Orally Active 1 capsule Once a day [facility]ymbicort [facility] [address]-27 80-4.5 MCG/ACT Jul 24, Active 2 puffs Inhalation 2014 Twice a day Antoine [facility] [address]-27 5-325 MG Orally September Active 1 tablet three times a 20, as needed day (tid) 2014 Omeprazole [facility] [address]-34 20MG by mouth Active 1 tablet once a day Marycarmen BD ultra Unknown 0 4mm x 32g Active as fine pen needles intradermally d irected three times a day (tid) Calcium + D [facility] [address]-88 600-200 MG-UNIT Activ e 2 tablet Orally twice a with food day (bid) CoQ-10 [facility] 07678-48964 30 MG Orally Active 1 caps ule Once a day with a meal Viibryd [facility] 96183674357 40MG Orally Active 1 table t daily Flintstones Plus [facility] [address]-93400 Multivitamin Activ e 1 tablet Iron Orally Once a day Levothyroxine [facility] 69725002726 125MCG orally Active 1 tablet Sodium daily Naproxen [facility] 16855197862 500MG Orally Active 1 tab let twice a day (bid) Levemir Flexpen [facility] [address]-11 100 UNIT/ML Activ e 30 units Subcutaneous twice a day (bid) Victoza [facility] 71760036491 6MG/ML SQ daily Active 1.8 mg Fosamax [facility] [address]-86 70 MG Orally Apr 16, Active 1 ta blet weekly 2013 Xanax [facility] [address]-68 0.5 MG Orally Active 1 t ablet four times a day (qid) BD Pen Unknown 0 31.156 SQ three December Active as times a day 10, directed (tid) 2013 Vitamin B-12 [facility] 57434-34030 1000 MCG by Active 1 tablet mouth Once a day Acyclovir [facility] [address]-34 400 MG Orally November 03, Active 1 tablet Three times a 2014 day Potassimin [facility] [address]-46 75 MG Orally Active 1 tablet Once a day Ultram [facility] [address]-85 50 mg Orally November 03, Active 1 ta blet twice a day 2015 as needed (bid) [place] Unknown 0 20 [...]
--- OUTSIDE RECORDS SUMMARY | 2019-11-19 16:31 | XMS REPORT ---
:1955 Author Organization eClinicalWorks Care Team Providers Name Role Phone Lorena Lee Provider Role Unavailable Encounters Encounter Location Date Unknown [facility] January 08, [address] [facility] Jun 21, 2015 NAEEM Jacobs Refill on Fosamax [facility] Mar 03, 2015 NAEEM Jacobs Follow-Up shingles [facility] Feb 15, 2015 NAEEM Jacobs refill on Levothyroxine [facility] Aug 27, [address] [facility] Jul 24, 2014 NAEEM Jacobs Refill on Viibryd [facility] October 27, 2015 NAEEM Jacobs refill on xanax [facility] Aug 11, 2014 NAEEM Jacobs Follow-Up meds [facility] Jun 04, [address] [facility] Jul 13, 2014 NAEEM Jacobs [address] [facility] Jul 05, [address] [facility] Jul 17, 2014 NAEEM Jacobs poss UTI [facility] Apr 16, 2014 NAEEM Jacobs refill on fosamax [facility] Jun 08, 2014 NAEEM Jacobs refill on Naproxen [facility] Mar 18, 2014 NAEEM Jacobs Follow-Up medication [facility] Mar 16, 2014 NAEEM Jacobs refill medications [facility] Aug 28, 2014 NAEEM Jacobs Nasonex req PA so changed to Flonase [facility] December 01, 2013 NAEEM Jacobs Poss sinus inf [facility] November 28, 2013 NAEEM Jacobs allergies not any better from last [facility] 2013 visit NAEEM Jacobs Refills must go through [facility] December 29, 2013 scripts NAEEM Jacobs Unknown [facility] September 24, 2013 NAEEM Jacobs Followup [address] [facility] October 01, 2013 NAEEM Jacobs Follow-Up [address] [facility] October 15, [address] [facility] September 08, 2014 NAEEM Jacobs refill on fosamax [facility] September 04, 2014 NAEEM Jacobs Follow-Up med refill [facility] December 22, 2013 NAEEM Jacobs Pen needles refill request [facility] January 08, 2 014 NAEEM Jacobs med refills [facility] November 03, 2014 NAEEM Jacbos refill on Omeprazole [facility] December 23, 2014 NAEEM Jacobs Refill on meds [facility] January 19, [address] [facility] January 15, [address] [facility] October 08, 2014 NAEEM Jacobs [facility] September 28, [address] [facility] November 02, 2014 NAEEM Jacobs re-evaluate [facility] October 19, 2014 NAEEM Jacobs Problems Problem Type Condition ICD-9 Code Onset Dates Condition Statu s Problem Female stress incontinence N39.3 A ctive [...] Mixed hyperlipidemia E78.2 Active Medications Medication Code System Code Instructions Start End Date Status Dos age Date [facility] 724[facility] 40MG Orally daily Active 1 tablet Social History Social History Element Qualifiers Date [...] exercise? . Answer: Yes, Type: walking Jul 05, 2015 min 2x day Do you drink alcohol? . Status: No Jul 05, 2015 Summary Purpose eClinicalWorks Submission
--- OUTSIDE RECORDS SUMMARY | 2019-11-19 16:31 | XMS REPORT ---
:1955 Author Organization eClinicalWorks Care Team Providers Name Role Phone Lorena Lee Provider Role Unavailable Encounters Encounter Location Date Unknown [facility], January 08, 2014 PA Unknown [facility], Jun 022014 PA Refill on Fosamax [facility], Mar 03, 2015 PA Follow-Up shingles [facility], Jan 302014 PA cough [facility], Jul 032014 PA refill on xanax [facility] Aug 022014 PA Unknown [facility] Jul 022014 PA cold [facility], Jul 022014 PA poss UTI [facility], Apr 012013 PA refill on fosamax [facility], Jun PA refill on Naproxen [facility], Mar 18, 2014 PA Follow-Up medication [facility], Mar 16, 2014 PA refill medications [facility], Aug 032014 PA Nasonex req PA so changed to Flonase [facility], December 01, 2013 PA Poss sinus inf [facility], November 012013 PA allergies not any better from last [facility], December 05, 2013 visit PA Refills must [facility] through [facility], December 29, 2013 scripts PA Unknown [facility], September 24, 2013 PA Followup 1 week [facility], October 01, 2013 PA Follow-Up 2 weeks [facility], October 15, 2013 PA Unknown [facility], September 08, 2014 PA refill on fosamax [facility], September 04, 2014 PA Follow-Up med refill [facility], Nov PA Pen needles refill request [facility] , January 08, 2014 PA med refills [facility], October PA refill on Omeprazole [facility], December 23, 2014 PA Refill on meds [facility], January 19, 2015 PA poss shingles [facility], January 15, 2015 PA Unknown [facility], October 08, 2014 PA dixie mckeon [facility], September 28, 2014 PA Unknown [facility], October PA re-evaluate [facility], October 19, 2014 PA [...] Start End Status Dosa ge Date Date [facility] [address]-60 70 MG Orally Apr 16, Active 1 ta blet weekly 2013 [facility]d [facility] 02837524884 40MG Orally Active 1 table t daily Levothyroxine [facility] 39215820077 125MCG orally Active 1 tablet Sodium daily Naproxen [facility] 82016374911 500MG Orally Active 1 tab let twice a day (bid) Adipex-P [facility] [address]-52 37.5 MG Orally Jun 04, Active 1 tablet Once a day 2014 Ultram [facility] [address]-21 50 mg Orally November 03, Active 1 ta blet twice a day 2014 as needed (bid) [place] [facility] [address]-82 5-325 MG Orally September Active 1 tablet three times a 20, as needed day (tid) 2014 Neurontin [facility] [address]-08 600 MG Orally November 03, Active 1 tablet Three times a 2014 day Marycarmen BD ultra Unknown 0 4mm x 32g Active as fine pen needles intradermally d irected three times a day (tid) BD Pen Unknown 0 31.156 SQ three December Active as times a day 10, directed (tid) 2013 Calcium + D [facility] [address]-60 600-200 MG-UNIT Activ e 2 tablet Orally twice a with food day (bid) Vitamin B-12 [facility] 47[address]-19518 1000 MCG by Active 1 tablet mouth Once a day [place]ura Unknown 0 20 mg by mouth Jul 16, Active 1 tablet Once a day 2013 Flintstones Plus [facility] 26[address]63 Multivitamin Activ e 1 tablet Iron Orally Once a day Acyclovir [facility] [address]-48 400 MG Orally November 03, Active 1 tablet Three times a 2014 day Victoza [facility] 17453831718 6MG/ML SQ daily Active 1.8 mg Levemir Flexpen [facility] [address]-12 100 UNIT/ML Activ e 30 units Subcutaneous twice a day (bid) Symbicort [facility] [address]-04 80-4.5 MCG/ACT Jul 24, Active 2 puffs Inhalation 2014 Twice a day Omeprazole [facility] [address]-51 20MG by mouth Active 1 tablet once a day CoQ-10 [facility] 89418-52828 30 MG Orally Active 1 caps ule Once a day with a meal Xanax [facility] [address]-64 0.5 MG Orally Active 1 t ablet four times a day (qid) Potassimin [facility] [address]-11 75 MG Orally Active 1 tablet Once a day Fish Oil [facility] [address]-13 1000 MG Orally Active 1 capsule Once a day Social History Social History [...] you exercise? . Answer: Yes, Type: walking Jun 04, 2015 min 2x day Do you drink alcohol? . Status: No Jun 04, 2015 Summary Purpose eClinicalWorks Submission
--- OUTSIDE RECORDS SUMMARY | 2019-11-19 16:31 | XMS REPORT ---
:1955 Author Organization eClinicalWorks Care Team Providers Name Role Phone Lorena Lee Provider Role Unavailable Encounters Encounter Location Date Unknown [facility] January 08, 2014 NAEEM Jacobs Unknown [facility] Jun 21, 2015 NAEEM Jacobs Refill on Fosamax [facility] Mar 03, 2015 NAEEM Jacobs Follow-Up shingles [facility] Feb 15, 2015 NAEEM Jacobs refill on Levothyroxine [facility] Aug 27, 2015 NAEEM Jacobs cough [facility] Jul 24, 2014 NAEEM Jacobs refill on xanax [facility] Aug 11, 2014 NAEEM Jacobs Follow-Up meds [facility] Jun 04, 2015 NAEEM Jacobs Unknown [facility] Jul 13, 2014 NAEEM Jacobs 1 month [facility] Jul 05, 2015 NAEEM Jacobs cold [facility] Jul 17, 2014 NAEEM Jacobs poss UTI [facility] Apr 16, 2014 NAEEM Jacobs refill on fosamax [facility] Jun 08, 2014 NAEEM Jacobs refill on Naproxen [facility] Mar 18, 2014 NAEEM Jacobs Follow-Up medication [facility] Mar 16, 2014 NAEEM Jacobs refill medications [facility] Aug 28, 2014 NAEEM Jacobs Nasonex req PA so changed to Flonase [facility] December 01, 2013 NAEEM Jacobs Poss sinus inf [facility] November 28, 2013 NAEEM Jacobs allergies not any better from last [facility] Ju 2013 visit NAEEM Jacobs Refills must go through [facility] December 29, 2013 scripts NAEEM Jacobs Unknown [facility] September 24, 2013 NAEEM Jacobs Followup 1 week [facility] October 01, 2013 NAEEM Jacobs Follow-Up 2 weeks [facility] October 15, 2013 NAEEM Jacobs Unknown [facility] September 08, 2014 NAEEM Jacobs refill on fosamax [facility] September 04, 2014 NAEEM Jacobs Follow-Up med refill [facility] December 22, 2013 NAEEM Jacobs Pen needles refill request [facility] January 08, 014 NAEEM Jacobs med refills [facility] November 03, 2014 NAEEM Jacobs refill on Omeprazole [facility] December 23, 2014 NAEEM Jacobs Refill on meds [facility] January 19, 2015 NAEEM Jacobs [facility] January 15, 2015 NAEEM Jacobs Unknown [facility] October 08, 2014 NAEEM Jacobs [facility] September 28, 2014 NAEEM Jacobs Unknown [facility] November 02, 2014 NAEEM Jacobs re-evaluate [facility] October 19, 2014 NAEEM Jacobs Problems Problem [...] Status Dosa ge Date Date Levothyroxine MEDISPAN 72305216483 125MCG orally Active 1 tablet Sodium daily Social History Social History Element Qualifiers Date [...]
--- OUTSIDE RECORDS SUMMARY | 2019-11-19 16:32 | XMS REPORT ---
:1955 Author Organization e[employer]Works Care Team Providers Name Role Phone Lorena Lee Provider Role Unavailable Allergies, Adverse Reactions, Alerts Substance Reaction Event Type sulfa Info Not Available Drug Allergy Bactrim Info Not Available Drug Allergy Encounters Encounter Location Date Unknown [facility] January 08, 2014 NAEEM Jacobs Unknown [facility] Jun 21, 2015 NAEEM Jacobs Refill on Fosamax [facility] Mar 03, 2015 NAEEM Jacobs Follow-Up shingles [facility] Feb 15, 2015 NAEEM Jacobs refill on Levothyroxine [facility] Aug 27, 2015 NAEEM Jacobs cough [facility] Jul 24, 2014 NAEEM Jacobs Refill on Viibryd [facility] October 27, 2015 NAEEM Jacobs refill on xanax [facility] Aug 11, 2014 NAEEM Jacobs Follow-Up meds [facility] Jun 04, 2015 NAEEM Jacobs Unknown [facility] Jul 13, 2014 NAEEM Jacobs 1 month [facility] Jul 05, 2015 NAEEM Jacobs cold [facility] Jul 17, 2014 NAEEM Jacobs Refill/Denied - Fosamax [facility] Feb 02, 2016 NAEEM Jacobs poss UTI [facility] Apr 16, 2014 NAEEM Jacobs refill on fosamax [facility] Jun 08, 2014 NAEEM Jacobs refill on Xanax [facility] January 07, 2016 NAEEM Jacobs refill on Naproxen [facility] Mar 18, 2014 NAEEM Jacobs Refill on Omeprazole [facility] January 10, 2016 NAEEM Jacobs Follow-Up medication [facility] Mar 16, 2014 NAEEM Jacobs refill medications [facility] Aug 28, 2014 NAEEM Jacobs Nasonex req PA so changed to Flonase [facility] December 01, 2013 NAEEM Jacobs Poss sinus inf [facility] November 28, 2013 NAEEM Jacobs allergies not any better from last [facility] Ju 2013 visit NAEEM Jacobs Refills must go through [facility] December 29, 2013 scripts NAEEM Jacobs Unknown [facility] September 24, 2013 NAEEM Jacobs Followup 1 week [facility] October 01, 2013 NAEEM Jacobs Follow-Up 2 weeks [facility] October 15, 2013 NAEEM Jacobs Unknown [facility] September 08, 2014 NAEEM Jacobs refill on fosamax [facility] September 04, 2014 NAEEM Jacobs blood pressure [facility] Mar 21, 2016 NAEEM Jacobs Follow-Up med refill [facility] December 22, 2013 NAEEM Jacobs refill meds [facility] Feb 09, 2016 NAEEM Jacobs Pen needles refill request [facility] January 08 014 NAEEM Jacobs med refills [facility] November 03, 2014 NAEEM Jacobs refill on Omeprazole [facility] December 23, 2014 NAEEM Jacobs Refill on meds [facility] January 19, 2015 NAEEM Jacobs poss shingles [facility] January 15, 2015 NAEEM Jacobs Unknown [facility] October 08, 2014 NAEEM Jacobs shingles [facility] September 28, 2014 NAEEM Jacobs Unknown [facility] November 02, 2014 NAEEM Jacobs re-evaluate [facility] October 19, 2014 NAEEM Jacobs Problems Problem Type Condition ICD-9 Code Onset Dates Condition Statu s Problem Female stress incontinence N39.3 A ctive Problem Hypothyroidism E03.9 Active Problem Vitamin D deficiency E55.9 Active Problem Ischemic heart disease I25.9 Activ e Assessment Chronic obstructive pulmonary J44.9 Active disease, unspecified Problem Morbid obesity E66.01 Active Assessment Pain in left knee M25.562 Active Assessment Encounter for immunization Z23 A ctive Problem Type 2 diabetes mellitus without E11.9 Active complications Problem Esophageal reflux K21.9 Active Problem Mixed hyperlipidemia E78.2 Active Problem Benign essential hypertension I10 Active Problem Type II or unspecified type E11.9 Active diabetes mellitus without mention of complication, not stated as uncontrolled Assessment Gastro-esophageal reflux disease K21.9 Active without esophagitis Assessment Localized edema R60.0 Active Assessment Anxiety disorder, unspecified F41.9 Active Assessment Other specified hypothyroidism E03.8 Active Assessment Stress incontinence (female) N39.3 Active (male) Assessment Disorder of bone density and M85.9 Active structure, unspecified Assessment Obstructive sleep apnea (adult) G47.33 Active (pediatric) Assessment Essential (primary) hypertension I10 Active Assessment Type 2 diabetes mellitus without E11.9 Active complications Problem Depressive disorder, not F32.9 Act maximo elsewhere classified Medications Medication Code System Code Instructions Start End Status Dosa ge Date Date Neurontin MEDISPAN [address]-08 600 MG Orally November 03, Active 1 tablet Three times a 2014 day Levemir Flexpen [facility] [address]-09 100 UNIT/ML Activ e 35 units Subcutaneous twice a day (bid) Marycarmen BD ultra Unknown 0 4mm x 32g Active as fine pen needles intradermally d irected three times a day (tid) [facility] [address]-91 0.5 MG PO four Active 1 tablet times a day (qid) Ultram [facility] [address]-44 50 mg Orally November 03, Active 1 ta blet twice a day 2014 as needed (bid) Omeprazole [facility] [address]-89 20MG by mouth November Active 1 tablet once a day 2015 Vitamin B-12 [facility] 56106-15949 1000 MCG by Active 1 tablet mouth Once a day Adipex-P [facility] [address]-15 37.5 MG Orally Jun 04, Active 1 tablet Once a day 2014 Viibryd [facility] 63963482272 40MG Orally Active 1 table t daily Potassimin [facility] [address]-18 75 MG Orally Active 1 tablet Once a day Sanctura Unknown 0 20 mg by mouth Jul 16, Active 1 tablet Once a day 2013 BD Pen Unknown 0 31.156 SQ december Active as times a day 10, directed (tid) 2013 Vimovo [facility] [address]-63 500-20 MG Mar Active 1 table t Orally Twice a , before day 2015 meals Edarbi [facility] [address]-54 40 mg Orally Mar Active 1 ta blet Once a day 2015 Victoza [facility] 06573601282 6MG/ML SQ daily Active 1.8 mg Naproxen [facility] 67279175608 500MG Orally Active 1 tab let twice a day (bid) Fosamax [facility] [address]-41 70 MG Orally Active 1 ta blet weekly Symbicort [facility] [address]-61 80-4.5 MCG/ACT Jul 24, Active 2 puffs Inhalation 2014 Twice a day Levothyroxine [facility] 51207790697 125MCG orally Active 1 tablet Sodium daily [place] [facility] [address]-81 5-325 MG Orally September Active 1 tablet three times a 20, as needed day (tid) 2014 Calcium + D [facility] [address]-27 600-200 MG-UNIT Activ e 2 tablet Orally twice a with food day (bid) Acyclovir [facility] [address]-93 400 MG Orally November 03, Active 1 tablet Three times a 2014 day CoQ-10 [facility] 33213-[address]264 30 MG Orally Active 1 caps ule Once a day with a meal Fish Oil [facility] [address]-07 1000 MG Orally Active 1 capsule Once a day Flintstones Plus [facility] 46474-93563 Multivitamin Activ e 1 tablet Iron Orally Once a day Social History Social History Element Qualifiers Date Reported Tobacco Use: . Are you a: former smoker, Age Mar started: 13, Age stopped: 51, Number of packs per day: 3 Use of recreational / street drugs? . Answer: No Mar 21, 2016 Do you have pets? . Status: No Mar 21, 2016 Marital Status: . Mar 21, 2016 Caffeine intake? . Status: Yes, What type: Coffee, Mar 21, 2016 Tea, 1 - 2 cup(s) a day Do you exercise? . Answer: Yes, Type: walking 15 Mar min 2x day Do you drink alcohol? . Status: No Mar 21, 2016 Vital Signs Date/Time: Mar 21, 2016 Weight 311.4 lbs Height 64 in Temperature 98.8 F Blood Pressure Diastolic 82 mm Hg Blood Pressure Systolic 152 mm Hg Results Hemoglobin A1c Immunizations Vaccine Administration Date Influenza (use this) Mar 21, 2016 Summary Purpose eClinicalWorks Submission
--- OUTSIDE RECORDS SUMMARY | 2019-11-19 16:32 | XMS REPORT ---
:1955 Author Organization eClinicalWorks Care Team Providers Name Role Phone Lorena Lee Provider Role Unavailable Encounters Encounter Location Date Unknown [facility] January 08, 2014 NAEEM Jacobs Unknown [facility] Jun 21, 2015 NAEEM Jacobs Refill on Fosamax [facility] Mar 03, 2015 NAEEM Jacobs Follow-Up shingles [facility] Feb 15, 2015 NAEEM Jacobs refill on Levothyroxine [facility] Aug 27, 2015 NAEEM Jacobs cough [facility] Jul 24, 2014 NAEEM Jacobs Refill on Viibryd [facility] October 27, 2015 NAEEM Jacobs refill on xanax [facility] Aug 11, 2014 NAEEM Jacobs Follow-Up meds [facility] Jun 04, 2015 NAEEM Jacobs Unknown [facility] Jul 13, 2014 NAEEM Jacobs 1 month [facility] Jul 05, 2015 NAEEM Jacobs cold [facility] Jul 17, 2014 NAEEM Jacobs poss UTI [facility] Apr 16, 2014 NAEEM Jacobs refill on fosamax [facility] Jun 08, 2014 NAEEM Jacobs refill on Xanax [facility] January 07, 2016 NAEEM Jacobs refill on Naproxen [facility] Mar 18, 2014 NAEEM Jacobs Follow-Up medication [facility] Mar 16, 2014 NAEEM Jacobs refill medications [facility] Aug 28, 2014 NAEEM Jacobs Nasonex req PA so changed to Flonase [facility] December 01, 2013 NAEEM Jacobs Poss sinus inf [facility] November 28, 2013 NAEEM Jacobs allergies not any better from last [facility] Ju 2013 visit NAEEM Jacobs Refills must go through [facility] December 29, 2013 scripts NAEEM Jacobs Unknown [facility] September 24, 2013 NAEEM Jacobs Followup 1 week [facility] October 01, 2013 NAEEM Jacobs Follow-Up 2 weeks [facility] October 15, 2013 NAEEM Jacobs Unknown [facility] September 08, 2014 NAEEM Jacobs refill on fosamax [facility] September 04, 2014 NAEEM Jacobs Follow-Up med refill [facility] December 22, 2013 NAEEM Jacobs Pen needles refill request [facility] January 08, 014 NAEEM Jacobs med refills [facility] November 03, 2014 NAEEM Jacobs refill on Omeprazole [facility] December 23, 2014 NAEEM Jacobs Refill on meds [facility] January 19, 2015 NAEEM Jacobs shingles [facility] January 15, 2015 NAEEM Jacobs Unknown [facility] October 08, 2014 NAEEM Jacobs [facility] September 28, 2014 NAEEM Jacobs Unknown [facility] November 02, 2014 NAEEM Jacobs re-evaluate [facility] October 19, 2014 NAEEM Jacobs Problems [...] Instructions Start Date End Date Status Dosage Xanax MEDISPAN [address] 0.5 MG PO four Active 1 tab let -01 times a day (qid) Social History Social History Element Qualifiers Date [...]
--- OUTSIDE RECORDS SUMMARY | 2019-11-19 16:32 | XMS REPORT ---
:1955 Author Organization eClinicalWorks Care Team Providers Name Role Phone Lorena Lee Provider Role Unavailable Encounters Encounter Location Date Unknown [facility] January 08, [address] [facility] Jun 21, 2015 NAEEM Jacobs Refill on Fosamax [facility] Mar 03, 2015 NAEEM Jacobs Follow-Up shingles [facility] Feb 15, 2015 NAEEM Jacobs refill on Levothyroxine [facility] Aug 27, 2015 NAEEM Jacobs cough [facility] Jul 24, 2014 NAEEM Jacobs Refill on Viibryd [facility] October 27, 2015 NAEEM Jacobs refill on xanax [facility] Aug 11, 2014 NAEEM Jacobs Follow-Up meds [facility] Jun 04, [address] [facility] Jul 13, 2014 NAEEM Jacobs [address] [facility] Jul 05, 2015 NAEEM Jacobs cold [facility] Jul 17, 2014 NAEEM Jacobs poss UTI [facility] Apr 16, 2014 NAEEM Jacobs refill on fosamax [facility] Jun 08, 2014 NAEEM Jacobs refill on Xanax [facility] January 07, 2016 NAEEM Jacobs refill on Naproxen [facility] Mar 18, 2014 NAEEM Jacobs Refill on Omeprazole [facility] January 10, 2016 NAEEM Jacobs Follow-Up medication [facility] Mar 16, 2014 NAEEM Jacobs refill medications [facility] Aug 28, 2014 NAEEM Jacobs Nasonex req PA so changed to Flonase [facility] December 01, 2013 NAEEM Jacobs Poss sinus inf [facility] November 28, 2013 NAEEM Jacobs allergies not any better from last [facility] Ju 2013 visit NAEEM Jacobs Refills must go through [facility] December 29, 2013 scripts NAEEM Jacobs Unknown [facility] September 24, 2013 NAEEM Jacobs Followup [address] [facility] October 01, 2013 NAEEM Jacobs Follow-Up [address] [facility] October 15, [address] [facility] September 08, 2014 NAEEM Jacobs refill on fosamax [facility] September 04, 2014 NAEEM Jacobs Follow-Up med refill [facility] December 22, 2013 NAEEM Jacobs Pen needles refill request [facility] January 08 014 NAEEM Jacobs med refills [facility] November 03, 2014 NAEEM Jacobs refill on Omeprazole [facility] December 23, 2014 NAEEM Jacobs Refill on meds [facility] January 19, 2015 NAEEM Jacobs [facility] January 15, [address] [facility] October 08, 2014 NAEEM Jacobs [facility] September 28, 2014 NAEEM Jacobs Unknown [facility] November 02, 2014 NAEEM Jacobs re-evaluate [facility] October 19, 2014 NAEEM Jacobs Problems Problem [...] Start End Status Dosa ge Date Date Acyclovir [facility] [address]-21 400 MG Orally November 03, Active 1 tablet Three times a 2014 day Omeprazole [facility] [address]-62 20MG by mouth November Active 1 tablet once a day 2015 [facility] 04852182803 70 MG Orally Active 1 tabl et weekly Xanax [facility] [address]-32 0.5 MG PO four Active 1 tablet times a day (qid) Neurontin MEDISPAN [address]-78 600 MG Orally November 03, Active 1 tablet Three times a 2014 day Fish Oil [facility] [address]-83 1000 MG Orally Active 1 capsule Once a day Naproxen [facility] 59505990986 500MG Orally Active 1 tab let twice a day (bid) Ultram MEDISPAN [address]-28 50 mg Orally November 03, Active 1 ta blet twice a day 2014 as needed (bid) Sanctura Unknown 0 20 mg by mouth Jul 16, Active 1 tablet Once a day 2013 Flintstones Plus [facility] [address] Multivitamin Activ e 1 tablet Iron Orally Once a day Levothyroxine [facility] 15819093407 125MCG orally Active 1 tablet Sodium daily Schlater [facility] [address]-17 5-325 MG Orally September Active 1 tablet three times a 20, as needed day (tid) 2014 CoQ-10 [facility] 29170-78940 30 MG Orally Active 1 caps ule Once a day with a meal Adipex-P [facility] [address]-38 37.5 MG Orally Jun 04, Active 1 tablet Once a day 2014 Marycarmen BD ultra Unknown 0 4mm x 32g Active as fine pen needles intradermally d irected three times a day (tid) Viibryd [facility] 83534623589 40MG Orally Active 1 table t daily Vitamin B-12 [facility] 32978-[address]288 1000 MCG by Active 1 tablet mouth Once a day Potassimin [facility] [address]-93 75 MG Orally Active 1 tablet Once a day Symbicort [facility] [address]-47 80-4.5 MCG/ACT Jul 24, Active 2 puffs Inhalation 2014 Twice a day Levemir Flexpen [facility] [address]-51 100 UNIT/ML Activ e 30 units Subcutaneous twice a day (bid) BD Pen Unknown 0 31.156 SQ december Active as times a day 10, directed (tid) 2013 Victoza [facility] 41690076910 6MG/ML SQ daily Active 1.8 mg Calcium + D [facility] [address]-94 600-200 MG-UNIT Activ e 2 tablet Orally twice a with food day (bid) Social History Social History Element Qualifiers [...]
--- OUTSIDE RECORDS SUMMARY | 2019-11-19 16:32 | XMS REPORT ---
:1955 Author Organization eClinicalWorks Care Team Providers Name Role Phone Lorena Lee Provider Role Unavailable Encounters Encounter Location Date Unknown [facility] January 08, 2014 NAEEM Jacobs Unknown [facility] Jun 21, 2015 NAEEM Jacobs Refill on Fosamax [facility] Mar 03, 2015 NAEEM Jacobs Follow-Up shingles [facility] Feb 15, 2015 NAEEM Jacobs refill on Levothyroxine [facility] Aug 27, 2015 NAEEM Jacobs cough [facility] Jul 24, 2014 NAEEM Jacobs Refill on Viibryd [facility] October 27, 2015 NAEEM Jacobs refill on xanax [facility] Aug 11, 2014 NAEEM Jacobs Follow-Up meds [facility] Jun 04, 2015 NAEEM Jacobs Unknown [facility] Jul 13, 2014 NAEEM Jacobs 1 month [facility] Jul 05, 2015 NAEEM Jacobs cold [facility] Jul 17, 2014 NAEEM Jacobs Refill/Denied - Fosamax [facility] Feb 02, 2016 NAEEM Jacobs poss UTI [facility] Apr 16, 2014 NAEEM Jacobs refill on fosamax [facility] Jun 08, 2014 NAEEM Jacobs refill on Xanax [facility] January 07, 2016 NAEEM Jacobs refill on Naproxen [facility] Mar 18, 2014 NAEEM Jacobs Refill on Omeprazole [facility] January 10, 2016 NAEEM Jacobs Follow-Up medication [facility] Mar 16, 2014 NAEEM Jacobs refill medications [facility] Aug 28, 2014 NAEEM Jacobs Nasonex req PA so changed to Flonase [facility] December 01, 2013 NAEEM Jacobs Poss sinus inf [facility] November 28, 2013 NAEEM Jacobs allergies not any better from last [facility] Ju 2013 visit NAEEM Jacobs Refills must go through [facility] December 29, 2013 scripts NAEEM Jacobs Unknown [facility] September 24, 2013 NAEEM Jacobs Followup 1 week [facility] October 01, 2013 NAEEM Jacobs Follow-Up 2 weeks [facility] October 15, 2013 NAEEM Jacobs Unknown [facility] September 08, 2014 NAEEM Jacobs refill on fosamax [facility] September 04, 2014 NAEEM Jacobs Follow-Up med refill [facility] December 22, 2013 NAEEM Jacobs Pen needles refill request [facility] January 08 014 NAEEM Jacobs med refills [facility] November 03, 2014 NAEEM Jacobs refill on Omeprazole [facility] December 23, 2014 NAEEM Jacobs Refill on meds [facility] January 19, 2015 NAEEM Jacobs shingles [facility] January 15, 2015 NAEEM Jacobs Unknown [facility] October 08, 2014 NAEEM Jacobs shingles [facility] September 28, 2014 NAEEM Jacobs Unknown [facility] November 02, 2014 NAEEM Jacobs re-evaluate [facility] October 19, 2014 NAEEM Jacobs Problems [...] Start End Status Dosa ge Date Date Ultram MEDISPAN [address]-94 50 mg Orally November 03, Active 1 ta blet twice a day 2014 as needed (bid) Fosamax [facility] [address]-13 70 MG Orally Active 1 ta blet weekly [facility] [address]-62 20MG by mouth November Active 1 tablet once a day 2015 Levemir Flexpen [facility] [address]-84 100 UNIT/ML Activ e 30 units Subcutaneous twice a day (bid) Neurontin [facility] [address]-08 600 MG Orally November 03, Active 1 tablet Three times a 2014 day [place] MEDISPAN [address]-14 5-325 MG Orally September Active 1 tablet three times a 20, as needed day (tid) 2014 Naproxen [facility] 09978908683 500MG Orally Active 1 tab let twice a day (bid) BD Pen Unknown 0 31.156 SQ december Active as times a day 10, directed (tid) 2013 Vitamin B-12 [facility] 26451-[address]24 1000 MCG by Active 1 tablet mouth Once a day Fish Oil [facility] [address]-86 1000 MG Orally Active 1 capsule Once a day Victoza [facility] 99645289224 6MG/ML SQ daily Active 1.8 mg Acyclovir [facility] [address]-54 400 MG Orally November 03, Active 1 tablet Three times a 2014 day Symbicort [facility] [address]-62 80-4.5 MCG/ACT Jul 24, Active 2 puffs Inhalation 2014 Twice a day Adipex-P [facility] [address]-86 37.5 MG Orally Jun 04, Active 1 tablet Once a day 2014 CoQ-10 [facility] [address]124 30 MG Orally Active 1 caps ule Once a day with a meal Levothyroxine [facility] 97422832512 125MCG orally Active 1 tablet Sodium daily Viibryd [facility] 20127705793 40MG Orally Active 1 table t daily Potassimin [facility] [address]-43 75 MG Orally Active 1 tablet Once a day Flintstones Plus [facility] 10[address]12 Multivitamin Activ e 1 tablet Iron Orally Once a day Xanax [facility] [address]-90 0.5 MG PO four Active 1 tablet times a day (qid) Sanctura Unknown 0 20 mg by mouth Jul 16, Active 1 tablet Once a day 2013 Marycarmen BD ultra Unknown 0 4mm x 32g Active as fine pen needles intradermally d irected three times a day (tid) Calcium + D [facility] [address]-27 600-200 MG-UNIT Activ e 2 tablet Orally [...]
--- OUTSIDE RECORDS SUMMARY | 2019-11-19 16:32 | XMS REPORT ---
:1955 Author Organization eClinicalWorks Care Team Providers Name Role Phone Lorena Lee Provider Role Unavailable Allergies, Adverse Reactions, Alerts Substance Reaction Event Type sulfa Info Not Available Drug Allergy Bactrim Info Not Available Drug Allergy Encounters Encounter Location Date Unknown [facility] January 08, 2014 NAEEM Jacobs Unknown [facility] Jun 21, 2015 NAEEM Jacobs Refill on Fosamax [facility] Mar 03, 2015 NAEEM Jacobs Follow-Up shingles [facility] Feb 15, 2015 NAEEM Jacobs refill on Levothyroxine [facility] Aug 27, 2015 NAEEM Jacobs cough [facility] Jul 24, 2014 NAEEM Jacobs Refill on Viibryd [facility] October 27, 2015 NAEEM Jacobs refill on xanax [facility] Aug 11, 2014 NAEEM Jacobs Follow-Up meds [facility] Jun 04, 2015 NAEEM Jacobs Unknown [facility] Jul 13, 2014 NAEEM Jacobs 1 month [facility] Jul 05, 2015 NAEEM Jacobs cold [facility] Jul 17, 2014 NAEEM Jacobs Refill/Denied - Fosamax [facility] Feb 02, 2016 NAEEM Jacobs poss UTI [facility] Apr 16, 2014 NAEEM Jacobs refill on fosamax [facility] Jun 08, 2014 NAEEM Jacobs refill on Xanax [facility] January 07, 2016 NAEEM Jacobs refill on Naproxen [facility] Mar 18, 2014 NAEEM Jacobs Refill on Omeprazole [facility] January 10, 2016 NAEEM Jacobs Follow-Up medication [facility] Mar 16, 2014 NAEEM Jacobs refill medications [facility] Aug 28, 2014 NAEEM Jacobs Nasonex req PA so changed to Flonase [facility] December 01, 2013 NAEEM Jacobs Poss sinus inf [facility] November 28, 2013 NAEEM Jacobs allergies not any better from last [facility] Ju 2013 visit NAEEM Jacobs Refills must go through [facility] December 29, 2013 scripts NAEEM Jacobs Unknown [facility] September 24, 2013 NAEEM Jacobs Followup 1 week [facility] October 01, 2013 NAEEM Jacobs Follow-Up 2 weeks [facility] October 15, 2013 NAEEM Jacobs Unknown [facility] September 08, 2014 NAEEM Jacobs refill on fosamax [facility] September 04, 2014 NAEEM Jacobs Follow-Up med refill [facility] December 22, 2013 NAEEM Jacobs refill meds [facility] Feb 09, 2016 NAEEM Jacobs Pen needles refill request [facility] January 08 014 NAEEM Jacobs med refills [facility] November 03, 2014 NAEEM Jacobs refill on Omeprazole [facility] December 23, 2014 NAEEM Jacobs Refill on meds [facility] January 19, 2015 NAEEM Jacobs shingles [facility] January 15, 2015 NAEEM Jacobs Unknown [facility] October 08, 2014 NAEEM Jacobs shingles [facility] September 28, 2014 NAEEM Jacobs Unknown [facility] November 02, 2014 NAEEM Jacobs re-evaluate [facility] October 19, 2014 NAEEM Jacobs Problems Problem Type Condition ICD-9 Code Onset Dates Condition Statu s Problem Depressive disorder, not F32.9 Act maximo elsewhere classified Problem Vitamin D deficiency E55.9 Active Problem Female stress incontinence N39.3 A ctive Problem Morbid obesity E66.01 Active Assessment Chronic obstructive pulmonary J44.9 Active disease, unspecified Problem Benign essential hypertension I10 Active Problem Ischemic heart disease I25.9 Activ e Problem Mixed hyperlipidemia E78.2 Active Problem Hypothyroidism E03.9 Active Problem Type II or unspecified type E11.9 Active diabetes mellitus without mention of complication, not stated as uncontrolled Problem Esophageal reflux K21.9 Active Assessment Morbid (severe) obesity due to E66.01 Active excess calories Assessment Dysuria R30.0 Active Assessment Disorder of bone density and M85.9 Active structure, unspecified Assessment Major depressive disorder, F32.9 A ctive single episode, unspecified Assessment Hypothyroidism E03.9 Active Assessment Esophageal reflux K21.9 Active Assessment Ischemic heart disease I25.9 Activ e Assessment Anxiety disorder, unspecified F41.9 Active Assessment Left anterior fascicular block I44.4 Active Assessment Type II or unspecified type E11.9 Active diabetes mellitus without mention of complication, not stated as uncontrolled Medications Medication Code System Code Instructions Start End Status Dosa ge Date Date Fosamax MEDISPAN [address]-23 70 MG Orally Active 1 ta blet weekly Naproxen MEDISPAN 75359528763 500MG Orally Active 1 tab let twice a day (bid) Potassimin [facility] [address]-99 75 MG Orally Active 1 tablet Once a day Levemir Flexpen [facility] [address]-89 100 UNIT/ML Activ e 30 units Subcutaneous twice a day (bid) Fish Oil [facility] [address]-13 1000 MG Orally Active 1 capsule Once a day Viibryd [facility] 33143506110 40MG Orally Active 1 table t daily Marycarmen BD ultra Unknown 0 4mm x 32g Active as fine pen needles intradermally d irected three times a day (tid) [facility] [address]-34 600 MG Orally November 03, Active 1 tablet Three times a 2014 day Calcium + D [facility] [address]-13 600-200 MG-UNIT Activ e 2 tablet Orally twice a with food day (bid) Ultram [facility] [address]-26 50 mg Orally November 03, Active 1 ta blet twice a day 2014 as needed (bid) CoQ-10 [facility] [address]341 30 MG Orally Active 1 caps ule Once a day with a meal BD Pen Unknown 0 31.156 SQ december Active as times a day 10, directed (tid) 2013 Sanctura Unknown 0 20 mg by mouth Jul 16, Active 1 tablet Once a day 2013 Acyclovir [facility] [address]-36 400 MG Orally November 03, Active 1 tablet Three times a 2014 day Flintstones Plus [facility] 66[address]43 Multivitamin Activ e 1 tablet Iron Orally Once a day Adipex-P [facility] [address]-82 37.5 MG Orally Jun 04, Active 1 tablet Once a day 2014 Xanax [facility] [address]-35 0.5 MG PO four Active 1 tablet times a day (qid) Omeprazole [facility] [address]-45 20MG by mouth November Active 1 tablet once a day 2015 Vitamin B-12 [facility] 74954-[address]45 1000 MCG by Active 1 tablet mouth Once a day Victoza [facility] 86925076482 6MG/ML SQ daily Active 1.8 mg Symbicort [facility] [address]-47 80-4.5 MCG/ACT Michael 23, Active 2 puffs Inhalation 2014 Twice a day [facility] [address]-27 5-325 MG Orally September Active 1 tablet three times a 20, as needed day (tid) 2014 Levothyroxine [facility] 22344949944 125MCG orally Active 1 tablet Sodium daily [...] No Mar 21, 2016 Vital Signs Date/Time: Feb 09, 2016 Weight 307.8 lbs Height 64 in Temperature 99.0 F Cardiac Monitoring Heart Rate 86 /min Blood Pressure Diastolic 84 mm Hg Blood Pressure Systolic 159 mm Hg Results T3 [facility] Summary Purpose eClinicalWorks Submission
--- OUTSIDE RECORDS SUMMARY | 2019-11-19 16:33 | XMS REPORT ---
:1955 Author Organization eClinicalWorks Care Team Providers Name Role Phone Lorena Lee Provider Role Unavailable Allergies, Adverse Reactions, Alerts Substance Reaction Event Type sulfa Info Not Available Drug Allergy Bactrim Info Not Available Drug Allergy Encounters Encounter Location Date Unknown [facility] January 08, 2014 NAEEM Jacobs Unknown [facility] Jun 21, 2015 NAEEM Jacobs Refill on Fosamax [facility] Mar 03, 2015 NAEEM Jacobs Follow-Up shingles [facility] Feb 15, 2015 NAEEM Jacobs refill on Levothyroxine [facility] Aug 27, 2015 NAEEM Jacobs cough [facility] Jul 24, 2014 NAEEM Jacobs Refill on Viibryd [facility] October 27, 2015 NAEEM Jacobs refill on xanax [facility] Aug 11, 2014 NAEEM Jacobs Follow-Up meds [facility] Jun 04, 2015 NAEEM Jacobs Unknown [facility] Jul 13, 2014 NAEEM Jacobs 1 month [facility] Jul 05, 2015 NAEEM Jacobs cold [facility] Jul 17, 2014 NAEEM Jacobs Refill/Denied - Fosamax [facility] Feb 02, 2016 NAEEM Jacobs poss UTI [facility] Apr 16, 2014 NAEEM Jacobs refill on fosamax [facility] Jun 08, 2014 NAEEM Jacobs refill on Xanax [facility] January 07, 2016 NAEEM Jacobs refill on Naproxen [facility] Mar 18, 2014 NAEEM Jacobs Refill on Omeprazole [facility] January 10, 2016 NAEEM Jacobs Follow-Up medication [facility] Mar 16, 2014 NAEEM Jacobs refill medications [facility] Aug 28, 2014 NAEEM Jacobs Nasonex req PA so changed to Flonase [facility] December 01, 2013 NAEEM Jacobs Poss sinus inf [facility] November 28, 2013 NAEEM Jacobs allergies not any better from last [facility] Ju 2013 visit NAEEM Jacobs Refills must go through [facility] December 29, 2013 scripts NAEEM Jacobs Unknown [facility] September 24, 2013 NAEEM Jacobs Followup 1 week [facility] October 01, 2013 NAEEM Jacobs Follow-Up 2 weeks [facility] October 15, 2013 NAEEM Jacobs Unknown [facility] September 08, 2014 NAEEM Jacobs refill on fosamax [facility] September 04, 2014 NAEEM Jacobs blood pressure [facility] Mar 21, 2016 NAEEM Jacobs Follow-Up med refill [facility] December 22, 2013 NAEEM Jacobs refill meds [facility] Feb 09, 2016 NAEEM Jacobs Pen needles refill request [facility] January 08, 014 NAEEM Jacobs Follow-Up 1 month [facility] Apr 20, 2016 NAEEM Jacobs med refills [facility] November 03, 2014 NAEEM Jacobs refill on Omeprazole [facility] December 23, 2014 NAEEM Jacobs Refill on meds [facility] January 19, 2015 NAEEM Jacobs poss shingles [facility] January 15, 2015 NAEEM Jacobs Unknown [facility] October 08, 2014 NAEEM Jacobs shingles [facility] September 28, 2014 NAEEM Jacobs Unknown [facility] November 02, 2014 NAEEM Jacobs re-evaluate [facility] October 19, 2014 NAEEM Jacobs Problems Problem Type Condition ICD-9 Code Onset Dates Condition Statu s Assessment Herpes zoster without B02.9 Active complication Assessment Disorder of bone, unspecified M89.9 Active Assessment Other specified hypothyroidism E03.8 Active Problem Type II or unspecified type E11.9 Active diabetes mellitus without mention of complication, not stated as uncontrolled Assessment Polyosteoarthritis, 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 Problem Benign essential hypertension I10 Active Assessment Type 2 diabetes mellitus without E11.9 Active complications Problem Morbid obesity E66.01 Active Problem Type 2 diabetes mellitus without E11.9 Active complications Problem Ischemic heart disease I25.9 Activ e Problem Major depressive disorder, F32.9 A ctive single episode, unspecified Problem Anxiety disorder, unspecified F41.9 Active Assessment Anxiety disorder, unspecified F41.9 Active Assessment Morbid (severe) obesity due to E66.01 Active excess calories Problem Morbid (severe) obesity due to E66.01 Active excess calories Assessment Gastro-esophageal reflux disease K21.9 Active without esophagitis Problem Polyosteoarthritis, 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 Problem Other specified hypothyroidism E03.8 Active Problem Chronic obstructive pulmonary J44.9 Active disease, unspecified Problem Gastro-esophageal reflux disease K21.9 Active without esophagitis Problem Depressive disorder, not F32.9 Act maximo elsewhere classified Problem Female stress incontinence N39.3 A ctive Assessment Major depressive disorder, F32.9 A ctive single episode, unspecified Assessment Chronic obstructive pulmonary J44.9 Active disease, unspecified Problem Mixed hyperlipidemia E78.2 Active Problem Esophageal reflux K21.9 Active Problem Vitamin D deficiency E55.9 Active Problem Hypothyroidism E03.9 Active Medications Medication Code System Code Instructions Start End Status Dosa ge Date Date BD Pen Unknown 0 31.156 SQ three December Active as times a day 10, directed (tid) 2013 [facility] [address]-34 400 MG Orally November 03, Active 1 tablet Three times a 2014 day [facility]ipex-P [facility] [address]-04 37.5 MG Orally Jun 04, Active 1 tablet Once a day 2014 Potassimin [facility] [address]-76 75 MG Orally Active 1 tablet Once a day Victoza [facility] 22343025274 6MG/ML SQ daily Active 1.8 mg Fosamax [facility] [address]-26 70 MG Orally Active 1 ta blet weekly Mraycarmen BD ultra Unknown 0 4mm x 32g Active as fine pen needles intradermally d irected three times a day (tid) Flintstones Plus [facility] [address] Multivitamin Activ e 1 tablet Iron Orally Once a day Calcium + D [facility] [address]-18 600-200 MG-UNIT Activ e 2 tablet Orally twice a with food day (bid) Edarbi [facility] [address]-84 40 mg Orally Sept Active 1 ta blet Once a day 2015 Xanax [facility] [address]-28 0.5 MG PO four Active 1 tablet times a day (qid) Symbicort [facility] [address]-39 80-4.5 MCG/ACT Jul 24, Active 2 puffs Inhalation 2014 Twice a day Neurontin [facility] [address]-14 600 MG Orally November 03, Active 1 tablet Three times a 2014 day Naproxen [facility] 57476729565 500MG Orally Active 1 tab let twice a day (bid) Ultram [facility] [address]-44 50 mg Orally November 03, Active 1 ta blet twice a day 2014 as needed (bid) [place] [facility] [address]-07 5-325 MG Orally September Active 1 tablet three times a 20, as needed day (tid) 2014 Levothyroxine [facility] 13676471156 125MCG orally Active 1 tablet Sodium daily Fish Oil [facility] [address]-22 1000 MG Orally Active 1 capsule Once a day CoQ-10 [facility] 56829-97888 30 MG Orally Active 1 caps ule Once a day with a meal Viibryd [facility] 94309176419 40MG Orally Active 1 table t daily Vimovo [facility] [address]-20 500-20 MG Sept Active 1 table t Orally Twice a 20, before day 2015 meals Levemir Flexpen [facility] [address]-73 100 UNIT/ML Activ e 35 units Subcutaneous twice a day (bid) Sanctura Unknown 0 20 mg by mouth Jul 16, Active 1 tablet Once a day 2013 Vitamin B-12 [facility] 13304-85497 1000 MCG by Active 1 tablet mouth Once a day Omeprazole [facility] [address]-22 20MG by mouth November Active 1 tablet once a day 2015 Social History Social History Element Qualifiers Date Reported Tobacco Use: . Are you a: former smoker, Age Apr 20, 2016 started: 13, Age stopped: 51, Number of packs per day: 3 Use of recreational / street drugs? . Answer: No Apr 20, 2016 Do you have pets? . Status: No Apr 20, 2016 Marital Status: . Apr 20, 2016 Caffeine intake? . Status: Yes, What type: Coffee, Apr 022015 Tea, 1 - 2 cup(s) a day Do you exercise? . Answer: Yes, Type: walking Apr 20, 2016 min 2x day Do you drink alcohol? . Status: No Apr 20, 2016 Vital Signs Date/Time: Apr 20, 2016 Weight 317.6 lbs Height 64 in Temperature 98.8 F Cardiac Monitoring Heart Rate 80 /min Blood Pressure Diastolic 103 mm Hg Blood Pressure Systolic 135 mm Hg Summary Purpose eClinicalWorks Submission
--- OUTSIDE RECORDS SUMMARY | 2019-11-19 16:34 | XMS REPORT ---
:1955 Author Organization eClinicalWorks Care Team Providers Name Role Phone Lorena Lee Provider Role Unavailable Encounters Encounter Location Date Unknown [facility] January 08, 2014 NAEEM Jacobs Unknown [facility] Jun 21, 2015 NAEEM Jacobs Refill on Fosamax [facility] Mar 03, 2015 NAEEM Jacobs Follow-Up shingles [facility] Feb 15, 2015 NAEEM Jacobs refill on Levothyroxine [facility] Aug 27, [address] [facility] Jul 24, 2014 NAEEM Jacobs Refill on Viibryd [facility] October 27, 2015 NAEEM Jacobs refill on xanax [facility] Aug 11, 2014 NAEEM Jacobs Follow-Up meds [facility] Jun 04, 2015 NAEEM Jacobs Unknown [facility] Jul 13, 2014 NAEEM Jacobs 1 month [facility] Jul 05, [address] [facility] Jul 17, 2014 NAEEM Jacobs Refill/Denied - Fosamax [facility] Feb 02, 2016 NAEEM Jacobs poss UTI [facility] Apr 16, 2014 NAEEM Jacobs refill on fosamax [facility] Jun 08, 2014 NAEEM Jacobs refill on Xanax [facility] January 07, 2016 NAEEM Jacobs refill on Naproxen [facility] Mar 18, 2014 NAEEM Jacobs Refill on Omeprazole [facility] January 10, 2016 NAEEM Jacobs Follow-Up medication [facility] Mar 16, 2014 NAEEM Jacobs refill medications [facility] Aug 28, 2014 NAEEM Jacobs Nasonex req PA so changed to Flonase [facility] December 01, 2013 NAEEM Jacobs Poss sinus inf [facility] November 28, 2013 NAEEM Jacobs allergies not any better from last [facility] Ju 2013 visit NAEEM Jacobs Refills must go through [facility] December 29, 2013 scripts NAEEM Jacobs Unknown [facility] September 24, 2013 NAEEM Jacobs Followup 1 week [facility] October 01, 2013 NAEEM Jacobs Follow-Up 2 weeks [facility] October 15, 2013 NAEEM Jacobs Unknown [facility] September 08, 2014 NAEEM Jacobs refill on fosamax [facility] September 04, [address] blood pressure [facility] Mar 21, 2016 NAEEM Jacobs Follow-Up med refill [facility] December 22, 2013 NAEEM Jacobs refill meds [facility] Feb 09, 2016 NAEEM Jacobs Pen needles refill request [facility] January 08 014 NAEEM Jacobs follow up bp meds [facility] Jun 01, 2016 NAEEM Jacobs Follow-Up 1 month [facility] Apr 20, 2016 NAEEM Jacobs Refill - Levothyroxine [facility] Jun 22, 2016 NAEEM [address] med refills [facility] November 03, 2014 NAEEM Jacobs refill on Omeprazole [facility] December 23, 2014 NAEEM Jacobs Refill on meds [facility] January 19, 2015 NAEEM Jacobs poss shingles [facility] January 15, [address] [facility] October 08, [address] [facility] September 28, [address] [facility] November 02, 2014 NAEEM Jacobs re-evaluate [facility] October 19, 2014 NAEEM Jacobs Problems Problem Type Condition ICD-9 Code Onset Dates Condition Statu s Problem Gastro-esophageal reflux disease K21.9 Active without esophagitis Problem Anxiety disorder, unspecified F41.9 Active Problem Chronic obstructive pulmonary J44.9 Active disease, unspecified Problem Morbid obesity due to excess E66.01 Active calories Problem Vitamin D deficiency E55.9 Active Problem Stress incontinence in female N39.3 Active Problem Female stress incontinence N39.3 A ctive Problem Depressive disorder, not F32.9 Act maximo elsewhere classified Problem Obesity, unspecified obesity E66.9 Active severity, unspecified obesity type Problem Morbid (severe) obesity due to E66.01 Active excess calories Problem Major depressive disorder, F32.9 A ctive single episode, unspecified Problem OA (osteoarthritis) M19.90 Active Problem Adjustment disorder with F43.21 Act maximo depressed mood Problem Esophageal reflux K21.9 Active Problem Type II or unspecified type E11.9 Active diabetes mellitus without mention of complication, not stated as uncontrolled Problem Hypothyroidism E03.9 Active Problem Mixed hyperlipidemia E78.2 Active Problem Ischemic heart disease I25.9 Activ e Problem Type 2 diabetes mellitus without E11.9 Active complications Problem Benign essential hypertension I10 Active Problem Other specified hypothyroidism E03.8 Active Assessment Other specified hypothyroidism E03.8 Active Problem Morbid obesity E66.01 Active Problem Polyosteoarthritis, 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 Medications Medication Code System Code Instructions Start End Status Dosa ge Date Date Levothyroxine MEDISPAN 89922032984 125MCG orally Active 1 tablet Sodium daily Social History Social History Element Qualifiers Date Reported Tobacco Use: . Are you a: former smoker, Age Jun 01, 2016 started: 13, Age stopped: 51, Number [...] . Answer: Yes, Type: walking 15 Jun 01, 2016 min 2x day Do you drink alcohol? . Status: No Jun 01, 2016 Summary Purpose eClinicalWorks Submission
--- OUTSIDE RECORDS SUMMARY | 2019-11-19 16:34 | XMS REPORT ---
:1955 Author Organization eClinicalWorks Care Team Providers Name Role Phone Lorena Lee Provider Role Unavailable Encounters Encounter Location Date Unknown [facility] January 08, 2014 NAEEM Jacobs Unknown [facility] Jun 21, 2015 NAEEM Jacobs Refill on Fosamax [facility] Mar 03, 2015 NAEEM Jacobs Follow-Up shingles [facility] Feb 15, 2015 NAEEM Jacobs refill on Levothyroxine [facility] Aug 27, 2015 NAEEM Jacobs cough [facility] Jul 24, 2014 NAEEM Jacobs Refill on Viibryd [facility] October 27, 2015 NAEEM Jacobs refill on xanax [facility] Aug 11, 2014 NAEEM Jacobs Follow-Up meds [facility] Jun 04, 2015 NAEEM Jacobs Unknown [facility] Jul 13, 2014 NAEEM Jacobs 1 month [facility] Jul 05, 2015 NAEEM Jacobs cold [facility] Jul 17, 2014 NAEEM Jacobs Refill/Denied - Fosamax [facility] Feb 02, 2016 NAEEM Jacobs poss UTI [facility] Apr 16, 2014 NAEEM Jacobs refill on fosamax [facility] Jun 08, 2014 NAEEM Jacobs refill on Xanax [facility] January 07, 2016 NAEEM Jacobs refill on Naproxen [facility] Mar 18, 2014 NAEEM Jacobs Refill on Omeprazole [facility] January 10, 2016 NAEEM Jacobs Follow-Up medication [facility] Mar 16, 2014 NAEEM Jacobs refill medications [facility] Aug 28, 2014 NAEEM Jacobs Nasonex req PA so changed to Flonase [facility] December 01, 2013 NAEEM Jacobs Poss sinus inf [facility] November 28, 2013 NAEEM Jacobs allergies not any better from last [facility] Ju 2013 visit NAEEM Jacobs Refills must go through [facility] December 29, 2013 scripts NAEEM Jacobs Unknown [facility] September 24, 2013 NAEEM Jacobs Followup 1 week [facility] October 01, 2013 NAEEM Jacobs Follow-Up 2 weeks [facility] October 15, 2013 NAEEM Jacobs Unknown [facility] September 08, 2014 NAEEM Jacobs refill on fosamax [facility] September 04, 2014 NAEEM Jacobs blood pressure [facility] Mar 21, 2016 NAEEM Jacobs Follow-Up med refill [facility] December 22, 2013 NAEEM Jacobs refill meds [facility] Feb 09, 2016 NAEEM Jacobs Pen needles refill request [facility] January 08 014 NAEEM Jacobs follow up bp meds [facility] Jun 01, 2016 NAEEM Jacobs Follow-Up 1 month [facility] Apr 20, 2016 NAEEM Jacobs Refill - Levothyroxine [facility] Jun 22, 2016 NAEEM Jacobs med refills [facility] November 03, 2014 NAEEM Jacobs Unknown [facility] Jul 19, 2016 NAEEM Jacobs refill on Omeprazole [facility] December 23, 2014 NAEEM Jacobs Refill on meds [facility] January 19, 2015 NAEEM Jacobs poss shingles [facility] January 15, 2015 NAEEM Jacobs Unknown [facility] October 08, 2014 NAEEM Jacobs shingles [facility] September 28, 2014 NAEEM Jacobs Unknown [facility] November 02, 2014 NAEEM Jacobs re-evaluate [facility] October 19, 2014 NAEEM Jacobs Problems [...] Problem Other specified hypothyroidism E03.8 Active Assessment Type 2 diabetes mellitus without E11.9 Active complications Problem Morbid obesity E66.01 Active Problem Polyosteoarthritis, 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 Medications Medication Code System Code Instructions Start End Status Dosa ge Date Date Symbicort [facility] [address]-89 80-4.5 MCG/ACT Jul 24, Active 2 puffs Inhalation 2014 Twice a day Omeprazole [facility] [address]-97 20MG by mouth November Active 1 tablet once a day 2015 Vimovo [facility] [address]-07 500-20 MG Mar Active 1 table t Orally Twice a , before day 2015 meals VESIcare [facility] [address]-67 10 MG Orally Jun 01, Active 1 t ablet Once a day 2015 [place] [facility] [address]-37 5-325 MG Orally September Active 1 tablet three times a , as needed day (tid) 2014 Sanctura Unknown 0 20 mg by mouth Jul 16, Active 1 tablet Once a day 2013 BD Pen Unknown 0 31.156 SQ december Active as times a day 10, directed (tid) 2013 Naproxen [facility] 49655854316 500MG Orally Active 1 tab let twice a day (bid) Neurontin [facility] [address]-75 600 MG Orally November 03, Active 1 tablet Three times a 2014 day Adipex-P [facility] [address]-81 37.5 MG Orally Jun 04, Active 1 tablet Once a day 2014 Acyclovir [facility] [address]-69 400 MG Orally November 03, Active 1 tablet Three times a 2014 day Flintstones Plus [facility] [address] Multivitamin Activ e 1 tablet Iron Orally Once a day Ultram [facility] [address]-16 50 mg Orally November 03, Active 1 ta blet twice a day 2014 as needed (bid) Vitamin B-12 [facility] [address] 1000 MCG by Active 1 tablet mouth Once a day Xanax [facility] [address]-87 0.5 MG PO four Active 1 tablet times a day (qid) Levemir Flexpen [facility] [address]-69 100 UNIT/ML Activ e 35 units Subcutaneous twice a day (bid) Marycarmen BD ultra Unknown 0 4mm x 32g Active as fine pen needles intradermally d irected three times a day (tid) Victoza [facility] 81797563347 6MG/ML SQ daily Active 1.8 mg Macrobid [facility] [address]-80 100 MG Orally Jun 01, Active 1 capsule twice a day 2015 with food (bid) Edarbi [facility] [address]-54 40 MG Orally Sept Active 1 ta blet Once a day 2015 Viibryd [facility] 93434294013 40MG Orally Active 1 table t daily Calcium + D [facility] [address]-51 600-200 MG-UNIT Activ e 2 tablet Orally twice a with food day (bid) Levothyroxine [facility] 75233025174 125MCG orally Active 1 tablet Sodium daily Fish Oil [facility] [address]-56 1000 MG Orally Active 1 capsule Once a day Fosamax [facility] [address]-31 70 MG Orally Active 1 ta blet weekly Potassimin [facility] [address]-33 75 MG Orally Active 1 tablet Once a day CoQ-10 [facility] [address]323 30 MG Orally Active 1 caps ule Once a day with a meal Social History Social History Element Qualifiers Date [...] exercise? . Answer: Yes, Type: walking Jun 01, 2016 min 2x day Do you drink alcohol? . Status: No Jun 01, 2016 Summary Purpose eClinicalWorks Submission
--- OUTSIDE RECORDS SUMMARY | 2019-11-19 16:34 | XMS REPORT ---
:1955 Author Organization eClinicalWorks Care Team Providers Name Role Phone Lorena Lee Provider Role Unavailable Allergies, Adverse Reactions, Alerts Substance Reaction Event Type sulfa Info Not Available Drug Allergy Bactrim Info Not Available Drug Allergy Encounters Encounter Location Date Unknown [facility] January 08, 2014 NAEEM Jacobs Unknown [facility] Jun 21, 2015 NAEEM Jacobs Refill on Fosamax [facility] Mar 03, 2015 NAEEM Jacobs Follow-Up shingles [facility] Feb 15, 2015 NAEEM Jacobs refill on Levothyroxine [facility] Aug 27, 2015 NAEEM Jacobs cough [facility] Jul 24, 2014 NAEEM Jacobs Refill on Viibryd [facility] October 27, 2015 NAEEM Jacobs refill on xanax [facility] Aug 11, 2014 NAEEM Jacobs Follow-Up meds [facility] Jun 04, 2015 NAEEM Jacobs Unknown [facility] Jul 13, 2014 NAEEM Jacobs 1 month [facility] Jul 05, 2015 NAEEM Jacobs cold [facility] Jul 17, 2014 NAEEM Jacobs Refill/Denied - Fosamax [facility] Feb 02, 2016 NAEEM Jacobs poss UTI [facility] Apr 16, 2014 NAEEM Jacobs refill on fosamax [facility] Jun 08, 2014 NAEEM Jacobs refill on Xanax [facility] January 07, 2016 NAEEM Jacobs refill on Naproxen [facility] Mar 18, 2014 NAEEM Jacobs Refill on Omeprazole [facility] January 10, 2016 NAEEM Jacobs Follow-Up medication [facility] Mar 16, 2014 NAEEM Jacobs refill medications [facility] Aug 28, 2014 NAEEM Jacobs Nasonex req PA so changed to Flonase [facility] December 01, 2013 NAEEM Jacobs Poss sinus inf [facility] November 28, 2013 NAEEM Jacobs allergies not any better from last [facility] Ju 2013 visit NAEEM Jacobs Refills must go through [facility] December 29, 2013 scripts NAEEM Jacobs Unknown [facility] September 24, 2013 NAEEM Jacobs Followup 1 week [facility] October 01, 2013 NAEEM Jacobs Follow-Up 2 weeks [facility] October 15, 2013 NAEEM Jacobs Unknown [facility] September 08, 2014 NAEEM Jacobs refill on fosamax [facility] September 04, 2014 NAEEM Jacobs blood pressure [facility] Mar 21, 2016 NAEEM Jacobs Follow-Up med refill [facility] December 22, 2013 NAEEM Jacobs refill meds [facility] Feb 09, 2016 NAEEM Jacobs Pen needles refill request [facility] January 08 014 NAEEM Jacobs follow up bp meds [facility] Jun 01, 2016 NAEEM Jacobs Follow-Up 1 month [facility] Apr 20, 2016 NAEEM Jacobs med refills [facility] November 03, 2014 NAEEM Jacobs refill on Omeprazole [facility] December 23, 2014 NAEEM Jacobs Refill on meds [facility] January 19, 2015 NAEEM Jacobs poss shingles [facility] January 15, 2015 NAEEM Jacobs Unknown [facility] October 08, 2014 NAEEM Jacobs poss shingles [facility] September 28, 2014 NAEEM Jacobs Unknown [facility] November 02, 2014 NAEEM Jacobs re-evaluate [facility] October 19, 2014 NAEEM Jacobs Problems Problem Type Condition ICD-9 Code Onset Dates Condition Statu s Assessment Other specified hypothyroidism E03.8 Active Assessment Anxiety disorder, unspecified F41.9 Active Assessment Major depressive disorder, F32.9 A ctive single episode, unspecified Assessment Chronic obstructive pulmonary J44.9 Active disease, unspecified Assessment Gastro-esophageal reflux disease K21.9 Active without esophagitis Assessment Adjustment disorder with F43.21 Act maximo depressed mood Assessment OA (osteoarthritis) M19.90 Active Assessment Type 2 diabetes mellitus without E11.9 Active complications Problem Ischemic heart disease I25.9 Activ e Assessment Morbid (severe) obesity due to E66.01 Active excess calories Problem Type 2 diabetes mellitus without E11.9 Active complications Assessment Benign essential hypertension I10 Active Problem Other specified hypothyroidism E03.8 Active Problem Gastro-esophageal reflux disease K21.9 Active without esophagitis Problem Polyosteoarthritis, 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 Problem OA (osteoarthritis) M19.90 Active Problem Adjustment disorder with F43.21 Act maximo depressed mood Problem Depressive disorder, not F32.9 Act maximo elsewhere classified Assessment Dysuria R30.0 Active Problem Stress incontinence in female N39.3 Active Assessment Stress incontinence in female N39.3 Active Problem Anxiety disorder, unspecified F41.9 Active Problem Chronic obstructive pulmonary J44.9 Active disease, unspecified Problem Morbid (severe) obesity due to E66.01 Active excess calories Problem Major depressive disorder, F32.9 A ctive single episode, unspecified Problem Hypothyroidism E03.9 Active Problem Mixed hyperlipidemia E78.2 Active Problem Female stress incontinence N39.3 A ctive Problem Vitamin D deficiency E55.9 Active Problem Benign essential hypertension I10 Active Problem Morbid obesity E66.01 Active Problem Esophageal reflux K21.9 Active Problem Type II or unspecified type E11.9 Active diabetes mellitus without mention of complication, not stated as uncontrolled Medications Medication Code System Code Instructions Start End Status Dosa ge Date Date Levothyroxine [facility] 77130993709 125MCG orally Active 1 tablet Sodium daily Fosamax [facility] [address]-72 70 MG Orally Active 1 ta blet weekly Marycarmen BD ultra Unknown 0 4mm x 32g Active as fine pen needles intradermally d irected three times a day (tid) Viibryd [facility] 04581693011 40MG Orally Active 1 table t daily [facility] Unknown 0 20 mg by mouth Jul 16, Active 1 tablet Once a day 2013 Naproxen [facility] 83870952688 500MG Orally Active 1 tab let twice a day (bid) Levemir Flexpen [facility] [address]-62 100 UNIT/ML Activ e 35 units Subcutaneous twice a day (bid) Potassimin [facility] [address]-73 75 MG Orally Active 1 tablet Once a day Xanax [facility] [address]-77 0.5 MG PO four Active 1 tablet times a day (qid) CoQ-10 [facility] [address] 30 MG Orally Active 1 caps ule Once a day with a meal Edarbi [facility] [address]-58 40 MG Orally Sept Active 1 ta blet Once a day 2015 Vitamin B-12 [facility] [address] 1000 MCG by Active 1 tablet mouth Once a day Victoza [facility] 42680298155 6MG/ML SQ daily Active 1.8 mg Neurontin [facility] [address]-77 600 MG Orally November 03, Active 1 tablet Three times a 2014 day Calcium + D [facility] [address]-10 600-200 MG-UNIT Activ e 2 tablet Orally twice a with food day (bid) Adipex-P [facility] [address]-04 37.5 MG Orally Jun 04, Active 1 tablet Once a day 2014 Omeprazole [facility] [address]-81 20MG by mouth November Active 1 tablet once a day 2015 [facility] [address]-63 500-20 MG Sept Active 1 table t Orally Twice a 20, before day 2015 meals Macrobid [facility] [address]-98 100 MG Orally Jun 01, Active 1 capsule twice a day 2015 with food (bid) VESIcare [facility] [address]-19 10 MG Orally Jun 01, Active 1 t ablet Once a day 2015 Fish Oil [facility] [address]-03 1000 MG Orally Active 1 capsule Once a day Acyclovir [facility] [address]-26 400 MG Orally November 03, Active 1 tablet Three times a 2014 day Symbicort [facility] [address]-30 80-4.5 MCG/ACT Jul 24, Active 2 puffs Inhalation 2014 Twice a day BD Pen Unknown 0 31.156 SQ three December Active as times a day 10, directed (tid) 2013 Valyermo [facility] [address]-91 5-325 MG Orally September Active 1 tablet three times a 20, as needed day (tid) 2014 Flintstones Plus [facility] [address] Multivitamin Activ e 1 tablet Iron Orally Once a day Ultram [facility] [address]-04 50 mg Orally November 03, Active 1 [...] alcohol? . Status: No Jun 01, 2016 Vital Signs Date/Time: Jun 01, 2016 Weight 312.0 lbs Height 64 in Temperature 98.6 F Cardiac Monitoring Heart Rate 90 /min Blood Pressure Diastolic 89 mm Hg Blood Pressure Systolic 122 mm Hg Results Urinalysis (Urine Dipstick) Summary Purpose eClinicalWorks Submission
--- OUTSIDE RECORDS SUMMARY | 2019-11-19 16:35 | XMS REPORT ---
:1955 Author Organization e[employer] Care Team Providers Name Role Phone Lorena Lee Provider Role Unavailable Encounters Encounter Location Date Unknown [facility] January 08, 2014 NAEEM Jacobs Unknown [facility] Jun 21, 2015 NAEEM Jacobs Refill on Fosamax [facility] Mar 03, 2015 NAEEM Jacobs Follow-Up shingles [facility] Feb 15, 2015 NAEEM Jacobs refill on Levothyroxine [facility] [place] Aug 27, 2015 NAEEM Jacobs cough [facility] Jul 24, 2014 NAEEM Jacobs Refill on Viibryd [facility] October 27, 2015 NAEEM Jacobs refill on xanax [facility] Aug 11, 2014 NAEEM Jacobs Follow-Up meds [facility] Jun 04, 2015 NAEEM Jacobs Unknown [facility] Jul 13, 2014 NAEEM Jacobs 1 month [facility] Jul 05, 2015 NAEEM Jacobs cold [facility] [place] Jul 17, 2014 NAEEM aJcobs Refill/Denied - Fosamax [facility] [place] Feb 02, 2016 NAEEM Jacobs poss UTI [facility] Apr 16, 2014 NAEEM Jacobs refill on fosamax [facility] Jun 08, 2014 NAEEM Jcaobs refill on Xanax [facility] January 07, 2016 NAEEM Jacobs refill on Naproxen [facility] Mar 18, 2014 NAEEM Jacobs Refill on Omeprazole [facility] January 10, 2016 NAEEM Jacobs Follow-Up medication [facility] Mar 16, 2014 NAEEM Jacobs refill medications [facility] Aug 28, 2014 NAEEM Jacobs Nasonex req PA so changed to Flonase [facility] December 01, 2013 NAEEM Jacobs Poss sinus inf [facility] November 28, 2013 NAEEM Jacobs allergies not any better from last [facility] Ju 2013 visit NAEEM Jacobs Refills must go through [facility] December 29, 2013 scripts NAEEM Jacobs Unknown [facility] September 24, 2013 NAEEM Jacobs Followup 1 week [facility] October 01, 2013 NAEEM Jacobs Follow-Up 2 weeks [facility] October 15, 2013 NAEEM Jacobs Unknown [facility] September 08, 2014 NAEEM Jacobs refill on fosamax [facility] [place] September 04, 2014 NAEEM Jacobs blood pressure [facility] [place] Mar 21, 2016 NAEEM Jacobs Follow-Up med refill [facility] [place] December 22, 2013 NAEEM Jacobs refill meds [facility] [place] Feb 09, 2016 NAEEM Jacobs Pen needles refill request [facility] January 08 014 NAEEM Jacobs follow up bp meds [facility] Jun 01, 2016 NAEEM Jacobs Follow-Up 1 month [facility] Apr 20, 2016 NAEEM Jacobs Refill - Levothyroxine [facility] [place] Jun 22, 2016 NAEEM Jacobs med refills [facility] [place] November 03, 2014 NAEEM Jacobs Unknown [facility] Jul 19, 2016 NAEEM Jacobs refill on Omeprazole [facility] December 23, 2014 NAEEM Jacobs Refill - Omeprazole [facility] [place] Aug 11, 2016 NAEEM Jacobs Refill on meds [facility] January 19, 2015 NAEEM Jacobs Unknown [facility] Aug 16, 2016 NAEEM Jacobs poss shingles [facility] January 15, 2015 NAEEM Jacobs Unknown [facility] October 08, 2014 NAEEM Jacobs poss shingles [facility] September 28, 2014 NAEEM Jacobs Unknown [facility] November 02, 2014 NAEEM Jacobs re-evaluate [facility] October 19, 2014 NAEEM Jacobs Problems Problem [...] End Status Dosa ge Date Date Symbicort [facility] [address]-67 80-4.5 MCG/ACT Jul 24, Active 2 puffs Inhalation 2014 Twice a day Naproxen [facility] 90914929968 500MG Orally Active 1 tab let twice a day (bid) Macrobid [facility] [address]-10 100 MG Orally Jun 01, Active 1 capsule twice a day 2015 with food (bid) Vimovo [facility] [address]-74 500-20 MG Sept Active 1 table t Orally Twice a 20, before day 2015 meals CoQ-10 [facility] 93185-17432 30 MG Orally Active 1 caps ule Once a day with a meal BD Pen Unknown 0 31.156 SQ december Active as times a day 10, directed (tid) 2013 Ultram [facility] [address]-32 50 mg Orally November 03, Active 1 ta blet twice a day 2014 as needed (bid) Xanax [facility] [address]-99 0.5 MG PO four Active 1 tablet times a day (qid) Levothyroxine [facility] 75034207272 125MCG orally Active 1 tablet Sodium daily Potassimin [facility] [address]-20 75 MG Orally Active 1 tablet Once a day Flintstones Plus [facility] 37[address]-59708 Multivitamin Activ e 1 tablet Iron Orally Once a day Acyclovir [facility] [address]-36 400 MG Orally November 03, Active 1 tablet Three times a 2014 day [place] Unknown 0 20 mg by mouth Jul 16, Active 1 tablet Once a day 2013 Vitamin B-12 [facility] 33667-21480 1000 MCG by Active 1 tablet mouth Once a day Edarbi [facility] [address]-13 40 MG Orally Sept Active 1 ta blet Once a day 2015 VESIcare [facility] [address]-91 10 MG Orally Jun 01, Active 1 t ablet Once a day 2015 Omeprazole [facility] [address]-99 20MG by mouth November Active 1 tablet once a day 2015 Pen Delight [facility] [address]-77 31G X 8 MM SQ Aug 16, Active as 5/16" twice a day 2017 directed (bid) Marycarmen BD ultra Unknown 0 4mm x 32g Active as fine pen needles intradermally d irected three times a day (tid) Neurontin [facility] [address]-98 600 MG Orally November 03, Active 1 tablet Three times a 2014 day Levemir Flexpen [facility] [address]-00 100 UNIT/ML Activ e 35 units Subcutaneous twice a day (bid) Fosamax [facility] [address]-22 70 MG Orally Active 1 ta blet weekly Viibryd [facility] 16370489896 40MG Orally Active 1 table t daily Victoza [facility] 89353856350 6MG/ML SQ daily Active 1.8 mg [employer] [facility] [address]-14 5-325 MG Orally September Active 1 tablet three times a 20, as needed day (tid) 2014 Adipex-P [facility] [address]-04 37.5 MG Orally Jun 04, Active 1 tablet Once a day 2014 Calcium + D [facility] [address]-49 600-200 MG-UNIT Activ e 2 tablet Orally twice a with food day (bid) Fish Oil [facility] [address]-23 1000 MG Orally Active 1 capsule Once [...]
--- OUTSIDE RECORDS SUMMARY | 2019-11-19 16:35 | XMS REPORT ---
:1955 Author Organization e[employer]Works Care Team Providers Name Role Phone Lorena Lee Provider Role Unavailable Encounters Encounter Location Date Unknown [facility] January 08, 2014 NAEEM Jacobs cough [facility] Jul 24, 2014 NAEEM Jacobs refill on xanax [facility] Aug 11, 2014 NAEEM Jacobs Unknown [facility] Jul 13, 2014 NAEEM Jacobs cold [facility] Jul 17, 2014 NAEEM Jacobs poss UTI [facility] Apr 16, 2014 NAEEM Jacobs refill on fosamax [facility] Jun 08, 2014 NAEEM Jacobs refill on Naproxen [facility] Mar 18, 2014 NAEEM Jacobs Follow-Up medication [facility] Mar 16, 2014 NAEEM Jacobs refill medications [facility] Aug 28, 2014 NAEEM Jacobs Nasonex req PA so changed to Flonase [facility] December 01, 2013 NAEEM Jacobs sinus inf [facility] November 28, 2013 NAEEM Jacobs allergies not any better from last [facility] Ju 2013 visit NAEEM Jacobs Refills must go through [facility] December 29, 2013 scripts NAEEM Jacobs Unknown [facility] September 24, 2013 NAEEM Jacobs Followup 1 week [facility] October 01, 2013 NAEEM Jacobs Follow-Up 2 weeks [facility] October 15, 2013 NAEEM Jacobs Unknown [facility] September 08, 2014 NAEEM Jacobs refill on fosamax [facility] September 04, 2014 NAEEM Jacobs Follow-Up med refill [facility] December 22, 2013 NAEEM Jacobs Pen needles refill request [facility] January 08, 014 NAEEM Jacobs med refills [facility] November 03, 2014 NAEEM Jacobs refill on Omeprazole [facility] December 23, 2014 NAEEM Jacobs Refill on meds [facility] January 19, 2015 NAEEM Jacobs shingles [facility] January 15, 2015 NAEEM Jacobs Unknown [facility] October 08, 2014 NAEEM Jacobs shingles [facility] September 28, 2014 NAEEM Jacobs Unknown [facility] November 02, 2014 NAEEM Jacobs re-evaluate [facility] October 19, [place] [facility] Jun 21, 2015 [place] Refill on Fosamax [facility] Mar 03, 2015 [place] Follow-Up shingles [facility] Feb 15[place] 2015 [place] refill on Levothyroxine [facility] Aug 27, 2015 [place] Refill on Viibryd [facility] October 27, 2015 [place] Follow-Up meds [facility] Jun 04, 2015 [place] 1 month [facility] Jul 05, 2015 [place] Refill/Denied - Fosamax [facility] Feb 02, 2016 [place] refill on Xanax [facility] January 07, 2016 [place] [place] Refill on Omeprazole [facility] January 10, 2016 NAEEM Jacobs blood pressure [facility] Mar 21, 2016 [place] refill meds [facility] Feb 09, 2016 [place] follow up bp meds [facility] Jun 01, 2016 [place] Follow-Up 1 month [facility] Apr 20, 2016 [place] Refill - Levothyroxine [facility] Jun 22, 2016 [place] Unknown [facility] Jul 19, 2016 [place] Refill - Omeprazole [facility] Aug 11, 2016 [place] Unknown [facility] Aug 16, 2016 [place] Refill - Edarbi [facility] Aug 18, 2016 [place] Refill - Edarbi [facility] Aug 29, 2016 [place] Problems Problem Type Condition ICD-9 Code [...] Problem Other specified hypothyroidism E03.8 Active Assessment Benign essential hypertension I10 Active Problem Morbid obesity E66.01 Active Problem Polyosteoarthritis, 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 Medications Medication Code System Code Instructions Start Date End Date Status Dosage Edarbi [facility] [address] 40 MG Orally Once Mar 21, Active 1 tablet -30 a day 2015 Social History Social History [...]
--- OUTSIDE RECORDS SUMMARY | 2019-11-19 16:35 | XMS REPORT ---
:1955 Author Organization eClinicalWorks Care Team Providers Name Role Phone Lorena Lee Provider Role Unavailable Encounters Encounter Location Date Unknown [facility] January 08, [address] [facility] Jun 21, 2015 NAEEM Jacobs Refill on Fosamax [facility] Mar 03, 2015 NAEEM Jacobs Follow-Up shingles [facility] Feb 15, 2015 NAEEM Jacobs refill on Levothyroxine [facility] [place] Aug 27, 2015 NAEEM Jacobs cough [facility] Jul 24, 2014 NAEEM Jacobs Refill on Viibryd [facility] October 27, 2015 NAEEM Jacobs refill on xanax [facility] Aug 11, 2014 NAEEM Jacobs Follow-Up meds [facility] Jun 04, [address] [facility] Jul 13, 2014 [address] [facility] Jul 05, 2015 NAEEM Jacobs cold [facility] [place] Jul 17, 2014 NAEEM Jacobs Refill/Denied - Fosamax [facility] [place] Feb 02, 2016 NAEEM Jacobs poss UTI [facility] Apr 16, 2014 NAEEM Jacobs refill on fosamax [facility] Jun 08, 2014 NAEEM Jacobs refill on Xanax [facility] January 07, 2016 NAEEM Jacobs refill on Naproxen [facility] Mar 18, 2014 NAEEM Jacobs Refill on Omeprazole [facility] January 10, 2016 NAEEM Jacobs Follow-Up medication [facility] Mar 16, 2014 NAEEM Jacobs refill medications [facility] Aug 28, 2014 NAEEM Jacobs Nasonex req PA so changed to Flonase [facility] December 01, 2013 NAEEM Jacosb Poss sinus inf [facility] November 28, 2013 NAEEM Jacobs allergies not any better from last [facility] Ju 2013 visit NAEEM Jacobs Refills must go through [facility] December 29, 2013 scripts NAEEM Jacobs Unknown [facility] September 24, 2013 NAEEM Jcaobs Followup [address] [facility] October 01, 2013 NAEEM Jacobs Follow-Up [address] [facility] October 15, [address] [facility] September 08, 2014 NAEEM Jacobs refill on fosamax [facility] September 04, 2014 NAEEM Jacobs blood pressure [facility] Mar 21, 2016 NAEEM Jacobs Follow-Up med refill [facility] December 22, 2013 NAEEM Jacobs refill meds [facility] Feb 09, 2016 NAEEM Jacobs Pen needles refill request [facility] January 08 014 NAEEM Jacobs follow up bp meds [facility] Jun 01, 2016 NAEEM Jacobs Follow-Up [address] [facility] Apr 20, 2016 NAEEM Jacobs Refill - Levothyroxine [facility] Jun 22, 2016 NAEEM Jacobs med refills [facility] November 03, 2014 NAEEM Jacobs Unknown [facility] Jul 19, 2016 NAEEM Jacobs refill on Omeprazole [facility] December 23, 2014 NAEEM Jacobs Refill - Omeprazole [facility] Aug 11, 2016 NAEEM Jacobs Refill on meds [facility] January 19, 2015 NAEEM Jacobs Unknown [facility] Aug 16, 2016 NAEEM Jacobs shingles [facility] January 15, 2015 NAEEM Jacobs Refill - Edarbi [facility] Aug 18, 2016 NAEEM Jacobs Unknown [facility] October 08, 2014 NAEEM Jacobs poss shingles [facility] September 28, 2014 NAEEM Jacobs Unknown [facility] November 02, 2014 NAEEM Jacobs re-evaluate [facility] October 19, 2014 NAEEM Jacobs [...] Date End Date Status Dosage Edarbi MEDISPAN [address] 40 MG Orally Once Mar 21, Active [...]
--- OUTSIDE RECORDS SUMMARY | 2019-11-19 16:35 | XMS REPORT ---
:1955 Author Organization eClinicalWorks Care Team Providers Name Role Phone Lorena Lee Provider Role Unavailable Encounters Encounter Location Date Unknown [facility] January 08, 2014 NAEEM Jacobs Unknown [facility] Jun 21, 2015 NAEEM Jacobs Refill on Fosamax [facility] Mar 03, 2015 NAEEM Jacobs Follow-Up shingles [facility] Feb 15, 2015 NAEEM Jacobs refill on Levothyroxine [facility] Aug 27, 2015 NAEEM Jacobs cough [facility] Jul 24, 2014 NAEEM Jacobs Refill on Viibryd [facility] October 27, 2015 NAEEM Jacobs refill on xanax [facility] Aug 11, 2014 NAEEM Jacobs Follow-Up meds [facility] Jun 04, 2015 NAEEM Jacobs Unknown [facility] Jul 13, 2014 NAEEM Jacobs 1 month [facility] Jul 05, 2015 NAEEM Jacobs cold [facility] Jul 17, 2014 NAEEM Jacobs Refill/Denied - Fosamax [facility] Feb 02, 2016 NAEEM Jacobs poss UTI [facility] Apr 16, 2014 NAEEM Jacobs refill on fosamax [facility] Jun 08, 2014 NAEEM Jacobs refill on Xanax [facility] January 07, 2016 NAEEM Jacobs refill on Naproxen [facility] Mar 18, 2014 NAEEM Jacobs Refill on Omeprazole [facility] January 10, 2016 NAEEM Jacobs Follow-Up medication [facility] Mar 16, 2014 NAEEM Jacobs refill medications [facility] Aug 28, 2014 NAEEM Jacobs Nasonex req PA so changed to Flonase [facility] December 01, 2013 NAEEM Jacobs Poss sinus inf [facility] November 28, 2013 NAEEM Jacobs allergies not any better from last [facility] Ju 2013 visit NAEEM Jacobs Refills must go through [facility] December 29, 2013 scripts NAEEM Jacobs Unknown [facility] September 24, 2013 NAEEM Jacobs Followup 1 week [facility] October 01, 2013 NAEEM Jacobs Follow-Up 2 weeks [facility] October 15, 2013 NAEEM Jacobs Unknown [facility] September 08, 2014 NAEEM Jacobs refill on fosamax [facility] September 04, 2014 NAEEM Jacobs blood pressure [facility] Mar 21, 2016 NAEEM Jacobs Follow-Up med refill [facility] December 22, 2013 NAEEM Jacobs refill meds [facility] Feb 09, 2016 NAEEM Jacobs Pen needles refill request [facility] January 08 014 NAEEM Jacobs follow up bp meds [facility] Jun 01, 2016 NAEEM Jacobs Follow-Up 1 month [facility] Apr 20, 2016 NAEEM Jacobs Refill - Levothyroxine [facility] Jun 22, 2016 NAEEM Jacobs med refills [facility] November 03, 2014 NAEEM Jacobs Unknown [facility] Jul 19, 2016 NAEEM Jacobs refill on Omeprazole [facility] December 23, 2014 NAEEM Jacobs Refill - Omeprazole [facility] Aug 11, 2016 NAEEM Jacobs Refill on meds [facility] January 19, 2015 NAEEM Jacobs shingles [facility] January 15, 2015 NAEEM Jacobs Unknown [facility] October 08, 2014 NAEEM Jacobs shingles [facility] September 28, 2014 NAEEM Jacobs Unknown [facility] November 02, 2014 NAEEM Jacobs re-evaluate [facility] October 19, 2014 NAEEM Jacobs Problems Problem Type Condition ICD-9 Code Onset Dates Condition Statu s Problem Other specified hypothyroidism E03.8 Active Assessment Type 2 diabetes mellitus without E11.9 Active complications Problem Polyosteoarthritis, 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 Assessment Gastro-esophageal reflux disease K21.9 Active without esophagitis Problem Gastro-esophageal reflux disease K21.9 Active without esophagitis Problem Anxiety disorder, unspecified F41.9 Active Problem Chronic obstructive pulmonary J44.9 Active disease, unspecified Problem Morbid obesity due to excess E66.01 Active calories Problem Stress incontinence in female N39.3 Active Problem Vitamin D deficiency E55.9 Active Problem Female stress incontinence N39.3 A ctive Problem Obesity, unspecified obesity E66.9 Active severity, unspecified obesity type Problem Depressive disorder, not F32.9 Act maximo elsewhere classified Problem Morbid (severe) obesity due to E66.01 [...] I10 Active Problem Morbid obesity E66.01 Active Medications Medication Code System Code Instructions Start End Date Status Dos age Date Levemir Flexpen [facility] [address] 100 UNIT/ML Active 3 5 units 8-10 Subcutaneous twice a day (bid) Omeprazole [facility] 28388-762 20MG by mouth December 07, Active 1 t ablet 1-10 once a day 2015 Social History Social [...]
--- OUTSIDE RECORDS SUMMARY | 2019-11-19 16:36 | XMS REPORT ---
:1955 Author Organization [employer] Care Team Providers Name Role Phone TylermarlenTej cortezah Provider Role Unavailable Allergies, Adverse Reactions, Alerts Substance Reaction Event Type sulfa Info Not Available Drug Allergy Bactrim Info Not Available Drug Allergy Problems Problem Type Condition Code Onset Dates Condition Statu s Assessment Vitamin D deficiency E55.9 Active Assessment OA (osteoarthritis) M19.90 Active Assessment Anxiety disorder, unspecified F41.9 Active Assessment Mixed hyperlipidemia E78.2 Active Assessment Type 2 diabetes mellitus without E11.9 Active complications Assessment Essential (primary) hypertension I10 Active Assessment Gastro-esophageal reflux disease K21.9 Active without esophagitis Assessment Other specified hypothyroidism E03.8 Active Assessment Major depressive disorder, single F32.9 Active episode, unspecified Problem Gastro-esophageal reflux disease K21.9 Active without esophagitis Problem Depressive disorder, not elsewhere F32.9 Active classified Problem Chronic obstructive pulmonary J44.9 Active disease, unspecified Problem Female stress incontinence N39.3 A ctive Problem Anxiety disorder, unspecified F41.9 Active Problem Morbid (severe) obesity due to E66.01 Active excess calories Problem Major depressive disorder, single F32.9 Active episode, unspecified Problem Neuropathy G62.9 Active Problem Obesity, unspecified obesity E66.9 Active severity, unspecified obesity type Problem Mixed hyperlipidemia E78.2 Active Problem Hypothyroidism E03.9 Active Problem Essential (primary) hypertension I10 Active Problem Vitamin D deficiency E55.9 Active Problem OA (osteoarthritis) M19.90 Active Problem Adjustment disorder with depressed F43.21 Active mood Problem Morbid obesity due to excess E66.01 Active calories Problem Stress incontinence in female N39.3 Active Assessment Neuropathy G62.9 Active Problem Benign essential hypertension I10 Active Assessment Chronic obstructive pulmonary J44.9 Active disease, unspecified Problem Morbid obesity E66.01 Active Problem Esophageal reflux K21.9 Active Assessment Morbid (severe) obesity due to E66.01 Active excess calories Problem Type II or unspecified type diabetes E11.9 Active mellitus without mention of complication, not stated as uncontrolled Problem Other specified hypothyroidism E03.8 Active Problem Polyosteoarthritis, 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 Problem Ischemic heart disease I25.9 Activ e Problem Type 2 diabetes mellitus without E11.9 Active complications Medications Medication Code Code Instructions Start End Status Dosage System Date Date Fish Oil [facility] [address]-50 1000 MG Orally Active 1 capsule Once a day Vimovo [facility] [address]-49 500-20 MG Orally Sept Active 1 tablet Twice a day , before 2015 meals VESIcare [facility] [address]-86 10 MG Orally Jun 01, Active 1 ta blet Once a day 2015 Calcium + D [facility] [address]-15 600-200 MG-UNIT Active 2 tablet Orally twice a with food day (bid) BD Pen ND 0 31.156 SQ december Active as times a day , directed (tid) 2013 Omeprazole [facility] [address]-70 20MG by mouth November Active 1 tablet once a day 2015 Levothyroxine [facility] 94072021764 125MCG orally Active 1 tablet Sodium daily Potassimin [facility] [address]-65 75 MG Orally Active 1 tablet Once a day Pen [place] [facility] [address]-51 31G X 8 MM SQ Aug 16, Active as 11/14" twice a day 2016 directed (bid) Neurontin [facility] [address]-65 600 MG Orally November 03, Active 1 tablet Three times a 2014 day Symbicort [facility] [address]-54 80-4.5 MCG/ACT Jul 24, Active 2 puffs Inhalation Twice 2014 a day BuPROPion HCl [facility] [address]-53 75 MG Orally August Active 1 tablet daily 2016 Vitamin B-12 [facility] 25602-38516 1000 MCG by Active 1 t ablet mouth Once a day Xanax [facility] [address]-81 0.5 MG PO four Active 1 t ablet times a day (qid) CoQ-10 [facility] 06390-72347 30 MG Orally Active 1 capsu le Once a day with a meal Edarbi [facility] [address]-28 40 MG Orally Sept Active 1 tab let Once a day 2015 Macrobid [facility] [address]-27 100 MG Orally Jun 01, Active 1 c apsule twice a day 2015 with food (bid) Sanctura NDC 0 20 mg by mouth Jul 16, Active 1 tablet Once a day 2013 Fosamax [facility] [address]-43 70 MG Orally Active 1 tab let weekly Adipex-P [facility] [address]-60 37.5 MG Orally Jun 04, Active 1 tablet Once a day 2014 Marycarmen BD ultra NDC 0 4mm x 32g Active as fine pen needles intradermally d irected three times a day (tid) Flintstones Plus [facility] 25157-[address]80 Multivitamin Active 1 tablet Iron Orally Once a day Viibryd [facility] 98989420849 40MG Orally Active 1 tablet daily Chipley [facility] [address]-63 5-325 MG Orally September Active 1 tablet three times a 20, as needed day (tid) 2014 Naproxen [facility] 95341868103 500MG Orally Active 1 tabl et twice a day (bid) Acyclovir [facility] [address]-86 400 MG Orally November 03, Active 1 tablet Three times a 2014 Victoza [facility] 34454268390 6MG/ML SQ daily Active 1.8 mg Levemir Flexpen [facility] [address]-75 100 UNIT/ML Active 35 units Subcutaneous twice a day (bid) Ultram [facility] [address]-59 50 mg Orally November 03, Active 1 tab let twice a day 2014 as needed (bid) Vital Signs Date/Time: September 15, 2016 BMI 52.79 Index Weight 307.6 lbs Height 64 in Temperature 98.5 F Cardiac Monitoring Heart Rate 76 /min Blood Pressure Diastolic 55 mm Hg Blood Pressure Systolic 102 mm Hg Results Name Result Date Reference Range Unit Abnormali ty Flag COMPREHENSIVE METABOLIC PANEL ----CALCIUM 9.3 20160915 8.6-10.4 mg/dL N ----CARBON DIOXIDE 28 20160915 20-31 mmol/L N ----ALT 23 20160915 6-29 U/L N ----CREATININE 0.80 20160915 0.50-0.99 mg/dL N ----AST 28 20160915 10-35 U/L N ----eGFR NON-AFR. 79 20160915 > OR = 60 mL/min/1.7 N HONDURAN 3m2 ----ALKALINE 89 20160915 33-130 U/L N PHOSPHATASE ----eGFR 92 20160915 > OR = 60 mL/min/1.7 N HONDURAN 3m2 ----BILIRUBIN, 0.4 21279494 0.2-1.2 mg/dL N TOTAL ----BUN/CREATININE NOT APPLICABLE 57898975 6-22 (calc) RATIO ----ALBUMIN/GLOBULI 1.3 [id number] 1.0-2.5 (calc) N N RATIO ----SODIUM 142 62242665 135-146 mmol/L N ----GLOBULIN 3.0 [id number] 1.9-3.7 g/dL N (calc) ----POTASSIUM 5.7 44324084 3.5-5.3 mmol/L H ----GLUCOSE 116 34299363 65-99 mg/dL H ----CHLORIDE 105 [id number] 98-110 mmol/L N ----ALBUMIN 3.9 [id number] 3.6-5.1 g/dL N ----UREA NITROGEN 20 68972635 7-25 mg/dL N (BUN) ----PROTEIN, TOTAL 6.9 [id number] 6.1-8.1 g/dL N CBC With Differential/Platel et Hemoglobin A1c ----Hemoglobin A1c 6.5% [id number] T3 UPTAKE ----T3 UPTAKE 30 20160915 22-35 % N VITAMIN D, 25-HYDROXY, LC/MS/MS ----VITAMIN D, 45 [id number] 30-100 ng/mL N 25-OH, TOTAL TSH ----TSH 2.42 [id number] 0.40-4.50 mIU/L N CBC (INCLUDES DIFF/PLT) ----WHITE BLOOD 10.7 [id number] 3.8-10.8 Thousand/u N CELL COUNT L ----RED BLOOD CELL 3.81 96672720 3.80-5.10 Million/uL N COUNT ----HEMOGLOBIN 12.6 70268678 11.7-15.5 g/dL N ----RDW 16.0 [id number] 11.0-15.0 % H ----PLATELET COUNT 182 94551841 140-400 Thousand/u N L ----EOSINOPHILS 3.1 87959940 % N ----MONOCYTES 7.0 15625758 % N ----HEMATOCRIT 38.3 91578327 35.0-45.0 % N ----LYMPHOCYTES 16.0 23785147 % N ----MCV 100.7 66851371 80.0-100.0 fL H ----NEUTROPHILS 73.4 92396756 % N ----MCH 33.0 [id number] 27.0-33.0 pg N ----ABSOLUTE 54 66364362 0-200 cells/uL N BASOPHILS ----MCHC 32.8 59000378 32.0-36.0 g/dL N ----MPV 9.8 48376222 7.5-12.5 fL N ----BASOPHILS 0.5 91065461 % N ----ABSOLUTE 7854 11134679 2129-0741 cells/uL H NEUTROPHILS ----ABSOLUTE 1712 60994300 850-3900 cells/uL N LYMPHOCYTES ----ABSOLUTE 749 88207545 200-950 cells/uL N MONOCYTES ----ABSOLUTE 332 96521149 15-500 cells/uL N EOSINOPHILS LIPID PANEL ----NON HDL 117 26994185 mg/dL N CHOLESTEROL (calc) ----CHOL/HDLC RATIO 3.4 02162487 < OR = 5.0 (calc) N ----LDL-CHOLESTEROL 93 57624450 <130 mg/dL N (calc) ----TRIGLYCERIDES 121 97680199 <150 mg/dL N ----HDL CHOLESTEROL 49 54216258 > OR = 46 mg/dL N ----CHOLESTEROL, 166 54561336 125-200 mg/dL N TOTAL T4 (THYROXINE), TOTAL ----FREE T4 INDEX 2.0 [id number] 1.4-3.8 N (T7) ----T4 (THYROXINE), 6.7 [id number] 4.5-12.0 mcg/dL N TOTAL Summary Purpose [employer]ClinicalWorks Submission
--- OUTSIDE RECORDS SUMMARY | 2019-11-19 16:36 | XMS REPORT | Summary of Care ---
:1955 Author Organization [facility] Address [address] [place] [address] Encounter FIN [facility] [id number] Date(s): 05/17/17 - 05/17/[address] [address] Discharge Diagnosis: Other enthesopathy of right foot Discharge Disposition: Discharged to Home or Self Care Attending Physician: Philip Roper DPM Admitting Physician: Philip Roper DPM Vital Signs Most recent to oldest 1 2 3 [Reference Range]: Temperature Oral [35.8-37.3 36.7 DegC DegC] (05/10/17 7:36 AM) Temperature Temporal Artery 36.5 DegC 36.8 DegC [36.3-37.8 DegC] (05/17/17 11:20 AM) (05/17/17 8:47 AM) Temperature Temporal 97.7 Fahrenheit (05/17/17 11:20 AM) Peripheral Pulse Rate 71 bpm 70 bpm [55-105 bpm] (05/17/17 8:47 AM) (05/10/17 7:36 AM) Heart Rate Monitored 69 bpm 71 bpm 72 bpm [60-100 bpm] (05/17/17 11:35 AM) (05/17/17 11:25 AM) ( 7 11:20 AM) Respiratory Rate [12-20] 12 15 (05/17/17 11:25 AM) (05/17/17 11:20 AM) SpO2 [90-100 %] 98 % 96 % 95 % (05/17/17 11:35 AM) (05/17/17 11:25 AM) ( 7 11:20 AM) Blood Pressure 133/58 mmHg 119/62 mmHg 133/58 mmHg [110-120/65-85 mmHg] *HI* (05/17/17 11:25 AM) *HI* (05/17/17 11:35 AM) (05/17/17 11 :20 AM) Mean Arterial Pressure, 83 mmHg 81 mmHg 83 mmHg Cuff (05/17/17 11:35 AM) (05/17/17 11:25 AM) ( 11:20 AM) Height 165.10 cm 165.10 cm (05/17/17 8:47 AM) (05/10/17 7:36 AM) Height/Length Dosing 165.1 cm 165.1 cm (05/17/17 8:47 AM) (05/10/17 7:36 AM) Height Inches 65 in 65 in (05/17/17 8:47 AM) (05/10/17 7:36 AM) Weight 123.38 kg 123.7 kg (05/17/17 8:47 AM) (05/10/17 7:36 AM) Weight Dosing 123.38 kg 123.7 kg (05/17/17 8:47 AM) (05/10/17 7:36 AM) Weight Pounds 271 lb 272 lb (05/17/17 8:47 AM) (05/10/17 7:36 AM) Body Mass Index 45.26 kg/m2 45.38 kg/m2 (05/17/17 8:47 AM) (05/10/17 7:36 AM) Problem List Condition Effective Dates Status Health Status Informant Acid reflux(Confirmed) Active Depression(Confirmed) Active DIABETES MELLITUS(Confirmed) Active HTN [Hypertension](Confirmed) Active Hyperlipidemia(Confirmed) Active Hypothyroidism(Confirmed) Active right foot pain(Confirmed) Active Sleep apnea(Confirmed) Active Allergies, Adverse Reactions, Alerts Substance Reaction Severity Status Bactrim Active sulfamethoxazole Active Medications 5-HTP 5-HTP, 100mg daily, 0 Refill(s) Start Date: 05/10/17 Status: Orderedalendronate 70 mg oral tablet 70 mg = 1 tabs, Oral, qMonday, # 4 tabs, 0 Refill(s) Start Date: 05/10/17 Stop Date: 05/24/17 Status: Orderedallergy relief allergy relief, 25mg daily, 0 Refill(s) Start Date: 05/10/17 Status: OrderedceFAZolin 2 gm, Soln-IV, IV Piggyback, Once, infuse over 30 minutes, first dose 05/17/17 10:00:00 BALLING MACHINE OPERATOR, stop date 05/17/17 10:00:00 BALLING MACHINE OPERATOR, Prophylaxis Start Date: 05/17/17 Stop Date: 05/17/17 Status: CompletedceFAZolin 2 gm, Powder-Inj, IV, Once, first dose 05/17/17 10:42:00 BALLING MACHINE OPERATOR, stop date 05/17/17 10:42:00 BALLING MACHINE OPERATOR Start Date: 05/17/17 Stop Date: 05/17/17 Status: Completedclonazepam 0.5 mg oral tablet 0.25 mg = 0.5 tabs, Oral, BID, 0 Refill(s) Start Date: 09/19/13 Stop Date: 05/10/17 Status: Discontinuedclopidogrel 75 mg oral tablet 75 mg = 1 tabs, Oral, Daily, # 30 tabs, 0 Refill(s) Start Date: 05/10/17 Stop Date: 05/24/17 Status: Orderedcognium cognium, 100mg daily, 0 Refill(s) Start Date: 05/10/17 Status: OrderedCranberry 1 tab, Oral, Daily, 0 Refill(s) Start Date: 05/10/17 Stop Date: 05/24/17 Status: OrderedDemerol HCl 12.5 mg = 0.5 mL, Injection, IV Push, q5min PRN for Pain Mild (1-3), order duration: 4 doses, first dose 05/17/17 11:30:00 BALLING MACHINE OPERATOR, stop date Limited # of times Start Date: 05/17/17 Stop Date: 05/17/17 Status: Discontinueddexamethasone 4 mg = 1 mL, Injection, IV, Once, first dose 05/17/17 10:37:00 BALLING MACHINE OPERATOR, stop date 05/17/17 10:37:00 BALLING MACHINE OPERATOR Start Date: 05/17/17 Stop Date: 05/17/17 Status: CompletedEdarbi 40 mg oral tablet 40 mg = 1 tabs, Oral, BID, 0 Refill(s) Start Date: 05/10/17 Stop Date: 05/24/17 Status: OrderedfentaNYL 50 mcg = 1 mL, Injection, IV, Once, first dose 05/17/17 10:37:00 BALLING MACHINE OPERATOR, stop date 05/17/17 10:37:00 BALLING MACHINE OPERATOR Start Date: 05/17/17 Stop Date: 05/17/17 Status: CompletedfentaNYL 50 mcg = 1 mL, Injection, IV, Once, first dose 05/17/17 10:31:00 BALLING MACHINE OPERATOR, stop date 05/17/17 10:31:00 BALLING MACHINE OPERATOR Start Date: 05/17/17 Stop Date: 05/17/17 Status: CompletedFlintstones with Iron oral tablet, chewable 1 tabs, Chewed, Daily, 0 Refill(s) Start Date: 09/19/13 Stop Date: 05/10/17 Status: DiscontinuedLevemir FlexPen 35 units, Subcutaneous, BID, 0 Refill(s) Start Date: 05/10/17 Stop Date: 05/24/17 Status: OrderedLevemir FlexPen 30 units, Subcutaneous, BID, 0 Refill(s) Start Date: 09/19/13 Stop Date: 05/10/17 Status: Discontinuedlevothyroxine 125 mcg, Oral, Daily, 0 Refill(s) Start Date: 05/10/17 Stop Date: 05/24/17 Status: OrderedLinzess 145 mcg oral capsule 145 mcg = 1 caps, Oral, Daily, 0 Refill(s) Start Date: 05/10/17 Stop Date: 05/24/17 Status: Orderedlisinopril 40 mg oral tablet 40 mg = 1 tabs, Oral, Daily, 0 Refill(s) Start Date: 09/19/13 Stop Date: 05/10/17 Status: Discontinuedlovastatin 40 mg oral tablet 40 mg = 1 tabs, Oral, Daily, 0 Refill(s) Start Date: 09/19/13 Stop Date: 05/10/17 Status: DiscontinuedLR 1,000 mL 1,000 mL, IV, 100 mL/hr, start date 05/17/17 9:13:00 BALLING MACHINE OPERATOR, For Adults Start Date: 05/17/17 Stop Date: 05/17/17 Status: Discontinuedmidazolam 2 mg = 2 mL, Injection, IV, Once, first dose 05/17/17 10:25:00 BALLING MACHINE OPERATOR, stop date 05/17/17 10:25:00 BALLING MACHINE OPERATOR Start Date: 05/17/17 Stop Date: 05/17/17 Status: CompletedMilk Thistle 2, Oral, Daily, 0 Refill(s) Start Date: 09/19/13 Stop Date: 05/10/17 Status: DiscontinuedMisc Medication 600 mL, Soln-IV, IV, Once, first dose 05/17/17 11:26:00 BALLING MACHINE OPERATOR, stop date 05/17/17 11:26:00 BALLING MACHINE OPERATOR Start Date: 05/17/17 Stop Date: 05/17/17 Status: CompletedMisc Medication min and multivitamin supplement, 0 Refill(s) Start Date: 05/10/17 Status: Orderedmorphine 1 mg = 0.1 mL, Injection, IV Push, q5min PRN for Pain Moderate (4-6), order duration: 5 doses, firstdose 05/17/17 11:30:00 BALLING MACHINE OPERATOR, stop date Limited # of times Start Date: 05/17/17 Stop Date: 05/17/17 Status: Discontinuedmorphine 2 mg = 0.2 mL, Injection, IV Push, q5min PRN for pain severe (7-10), order duration: 5 doses, first dose 05/17/17 11:30:00 BALLING MACHINE OPERATOR, stop date Limited # of times Start Date: 05/17/17 Stop Date: 05/17/17 Status: Discontinuedomeprazole 20 mg oral delayed release tablet 20 mg = 1 tabs, Oral, Daily, 0 Refill(s) Start Date: 09/19/13 Stop Date: 05/10/17 Status: Discontinuedondansetron 4 mg = 2 mL, Injection, IV, Once, first dose 05/17/17 10:48:00 BALLING MACHINE OPERATOR, stop date 05/17/17 10:48:00 BALLING MACHINE OPERATOR Start Date: 05/17/17 Stop Date: 05/17/17 Status: CompletedPain Ease topical spray 1 sprays, [place], TOP, Once, first dose 05/17/17 10:00:00 BALLING MACHINE OPERATOR, stop date 05/17/17 10:00:00 BALLING MACHINE OPERATOR, Applytopically for 4 - 10 seconds from a distance of 3 - 7 inches from the procedure site Start Date: 05/17/17 Stop Date: 05/17/17 Status: Completedpromethazine IVPB 12.5 mg, IV Piggyback, Once PRN for nausea/vomiting, infuse over 15 minutes, first dose 05/17/17 11:30:00 BALLING MACHINE OPERATOR Start Date: 05/17/17 Stop Date: 05/17/17 Status: Discontinuedpropofol 550 mg = 55 mL, Emulsion, IV, Once, first dose 05/17/17 11:22:00 BALLING MACHINE OPERATOR, stop date 05/17/17 11:22:00 BALLING MACHINE OPERATOR Start Date: 05/17/17 Stop Date: 05/17/17 Status: CompletedSanctura 20 mg oral tablet 20 mg = 1 tabs, Oral, BID, 0 Refill(s) Start Date: 09/19/13 Stop Date: 05/10/17 Status: DiscontinuedSeroquel 50 mg oral tablet 50 mg = 1 tabs, Oral, Daily, 0 Refill(s) Start Date: 09/19/13 Stop Date: 05/10/17 Status: Discontinuedsimvastatin 10 mg oral tablet 10 mg = 1 tabs, Oral, qHS, # 30 tabs, 0 Refill(s) Start Date: 05/10/17 Stop Date: 05/24/17 Status: OrderedSymbicort 80 mcg-4.5 mcg/inh inhalation aerosol 2 puffs, INH, BID, # 6.9 gm, 0 Refill(s) Start Date: 05/10/17 Stop Date: 05/24/17 Status: OrderedVictoza 18 mg/3 mL subcutaneous solution 1.8 mg, Subcutaneous, Daily, 0 Refill(s) Start Date: 09/19/13 Stop Date: 05/10/17 Status: DiscontinuedViibryd 40 mg oral tablet 40 mg = 1 tabs, Oral, Daily, 0 Refill(s) Start Date: 09/19/13 Stop Date: 05/10/17 Status: DiscontinuedVimovo 500 mg-20 mg oral delayed release tablet 1 tabs, Oral, BID, # 60 tabs, 0 Refill(s) Start Date: 05/10/17 Stop Date: 05/24/17 Status: OrderedVitamin D chewable 5000 units 1 tabs, Oral, BID, # 30 tabs, 0 Refill(s) Start Date: 05/10/17 Stop Date: 05/24/17 Status: OrderedVitamin D chewable 5000 units 1 tabs, Oral, Daily, # 30 tabs, 0 Refill(s) Start Date: 09/19/13 Stop Date: 05/10/17 Status: DiscontinuedXanax 0.5 mg oral tablet 0.5 mg = 1 tabs, Oral, QID, PRN for anxiety, 0 Refill(s) Start Date: 05/10/17 Stop Date: 05/24/17 Status: Ordered Results LABORATORY Most recent to oldest [Reference Range]: 1 Hemoglobin [12.0-16.0 gm/dL] 12.5 gm/dL *NA* (05/10/17 8:56 AM) Hematocrit [36.0-48.0 %] 37.8 % *NA* (05/10/17 8:56 AM) PT [12.0-14.7 seconds] 13.2 seconds *NA* (05/10/17 8:56 AM) INR [0.85-1.17] 1.00 1 *NA* (05/10/17 8:56 AM) PTT [22.9-35.8 seconds] 28.6 seconds 2 *NA* (05/10/17 8:56 AM) Sodium Level [135-145 mEq/L] 140 mEq/L *NA* (05/10/17 8:56 AM) Potassium Level [3.5-5.1 mEq/L] 4.8 mEq/L *NA* (05/10/17 8:56 AM) Chloride Level [95-109 mEq/L] 104 mEq/L *NA* (05/10/17 8:56 AM) Total Carbon Dioxide Level [24-32 mEq/L] 30 mEq/L *NA* (05/10/17 8:56 AM) AGAP [10.0-20.0 mEq/L] 10.8 mEq/L *NA* (05/10/17 8:56 AM) BUN [7-22 mg/dL] 23 mg/dL *HI* (05/10/17 8:56 AM) Creatinine [0.50-1.40 mg/dL] 0.78 mg/dL *NA* (05/10/17 8:56 AM) Glucose Lvl [70-99 mg/dL] 85 mg/dL 3 *NA* (05/10/17 8:56 AM) Calcium Level [8.5-10.5 mg/dL] 9.1 mg/dL *NA* (05/10/17 8:56 AM) eGFR 82 mL/min/1.73m2 4 *NA* (05/10/17 8:56 AM) Magnesium Level [1.8-2.4 mg/dL] 2.1 mg/dL *NA* (05/10/17 8:56 AM) 1Result Comment: RECOMMENDED RANGES FOR PROTIME INR: 2.0-3.0 for most medical and surgical thromboembolic states. 2.5-3.5 for artificial heart valves and recurrent embolism. INR SHOULD BE USED ONLY FOR PATIENTS ON STABLE ANTICOAGULANT THERAPY.2Result Comment: Heparin Therapeutic Range: 57 - 92 [id number] Comment: Adult reference range values reflect the clinical guidelines of the [place] [employer].4Result Comment: The eGFR is calculated using the CKD-EPI formula. In most young, healthy individuals the eGFR will be >90 mL/min/1.73m2. The eGFR declines with age. An eGFR of 60-89 may be normal in some populations, particularly the elderly, for whom the CKD-EPI formula has not been extensively validated. Use of the eGFR is not recommended in the following populations: Individuals with unstable creatinine concentrations, including patients and those with serious co-morbid conditions. Patients with extremes in muscle mass or diet. The data above are obtained from the National Kidney Disease Education Program (NKDEP) which additionally recommends that when the eGFR is used in patients with extremes of body mass index for purposes of drug dosing, the eGFR should be multiplied by the estimated BMI. Immunizations No data available for this section Procedures No data available for this section Social History Social History Type Response Smoking Status Former smoker Assessment and Plan No data available for this section
--- OUTSIDE RECORDS SUMMARY | 2019-11-19 16:37 | XMS REPORT | Summary of Care ---
:1955 Author Organization [facility] Address [address] [place] [address] Encounter FIN [facility] [address] Date(s): 04/07/19 - 04/09/[address] [address]- Encounter Diagnosis Unilateral primary osteoarthritis, left knee (Discharge Diagnosis) - 04/07/19 Discharge Disposition: Discharged to Home or Self Care Attending Physician: Leo Klein MD Admitting Physician: Leo Klein MD Vital Signs Most recent to oldest 1 2 3 [Reference Range]: Temperature Oral [35.8-37.3 37.5 DegC 37.3 DegC 38.0 DegC DegC] *HI* (04/08/19 7:00 PM) *HI* (04/09/19 4:00 AM) (04/08/19 4:00 PM) Temperature Temporal Artery 36.1 DegC 36.4 DegC 36.9 DegC [36.3-37.8 DegC] *LOW* (04/07/19 1:10 PM) (04/07/19 9:27 AM) (04/07/19 2:00 PM) Temperature Farenheit 99.5 DegF 99.14 DegF 100.4 DegF (04/09/19 4:00 AM) (04/08/19 7:00 PM) (04/08/19 4:0 0 PM) Temperature Temporal 96.98 97.52 Fahrenheit (04/07/19 2:00 PM) (04/07/19 1:10 PM) Peripheral Pulse Rate 74 bpm 77 bpm 82 bpm [55-105 bpm] (04/07/19 10:56 AM) (04/07/19 9:27 AM) (03/26/19 11 :14 AM) Heart Rate Monitored [60-100 82 bpm 82 bpm 89 bpm bpm] (04/09/19 4:00 PM) (04/09/19 6:00 AM) (04/09/19 4:0 0 AM) Respiratory Rate [12-20] 18 16 16 (04/09/19 4:00 PM) (04/09/19 6:00 AM) (04/09/19 4:0 0 AM) SpO2 [90-100 %] 93 % 92 % 93 % (04/09/19 4:00 PM) (04/09/19 6:00 AM) (04/09/19 4:0 0 AM) Blood Pressure 112/75 mmHg 153/78 mmHg 147/67 mmHg [110-120/65-85 mmHg] (04/09/19 4:00 PM) *HI* *HI* (04/09/19 6:00 AM) (04/09/19 4:00 AM) Mean Arterial Pressure, Cuff 87.3 mmHg 103 mmHg 93. 7 mmHg (04/09/19 4:00 PM) (04/09/19 6:00 AM) (04/09/19 4:0 0 AM) Height 162.54 cm 162.54 cm (04/07/19 9:27 AM) (03/26/19 11:14 AM) Height/Length Dosing 162.54 cm 162.54 cm (04/07/19 9:27 AM) (03/26/19 11:14 AM) Height Inches 64 in 64 in (04/07/19:27 AM) (03/26/19 11:14 AM) Weight 127 kg 127.5 kg (04/07/19 9:27 AM) (03/26/19 11:14 AM) Weight Dosing 127 kg 127.5 kg (04/07/19 9:27 AM) (03/26/19 11:14 AM) Weight Pounds 279 lb 281 lb (04/07/19 9:27 AM) (03/26/19 11:14 AM) Body Mass Index 48.07 kg/m2 48.26 kg/m2 (04/07/19:27 AM) (03/26/19 11:14 AM) Problem List Condition Effective Dates Status Health Status Informant Acid reflux(Confirmed) Active Depression(Confirmed) Active DIABETES MELLITUS(Confirmed)1 Resolved Hepatitis B(Confirmed) Active HTN [Hypertension](Confirmed) Active Hyperlipidemia(Confirmed) Active Hypothyroidism(Confirmed) Active right foot pain(Confirmed) Active Sleep apnea(Confirmed) Active 1hgb A1c came down and doctors took her off of meds Allergies, Adverse Reactions, Alerts Substance Reaction Severity Status sulfa drugs Active Bactrim Active Medications 5-HTP 5-HTP, 100mg daily, 0 Refill(s) Start Date: 05/10/17 Stop Date: 03/26/19 Status: Discontinuedacetaminophen 1,000 mg = 2 tabs, Tab, Oral, q6hr PRN for fever, first dose 04/07/19 14:43:00 CDT Notes: Max 4gm acetaminophen in 24 hours Start Date: 04/07/19 Stop Date: 04/09/19 Status: Discontinuedacetaminophen 650 mg = 2 supp, Supp, [place], q6hr PRN for fever, first dose 04/07/19 14:43:00 CDT Notes: Max 4gm acetaminophen in 24 hours Start Date: 04/07/19 Stop Date: 04/09/19 Status: Discontinuedalendronate 70 mg oral tablet 70 mg = 1 tabs, Oral, qMonday, # 4 tabs, 0 Refill(s) Start Date: 05/10/17 Stop Date: 05/24/17 Status: Orderedallergy relief allergy relief, 25mg daily, 0 Refill(s) Start Date: 05/10/17 Stop Date: 03/26/19 Status: Discontinuedaspirin 81 mg, Oral, Daily, stopping 03/31, 0 Refill(s) Start Date: 03/26/19 Stop Date: 04/09/19 Status: OrderedBenadryl 25 mg = 0.5 mL, Injection, IM, q6hr PRN for itching, first dose 04/07/19 14:43:00 CDT Start Date: 04/07/19 Stop Date: 04/09/19 Status: DiscontinuedBenadryl 25 mg = 0.5 mL, Injection, IM, q6hr PRN for itching, first dose 04/07/19 14:43:00 CDT Start Date: 04/07/19 Stop Date: 04/07/19 Status: Discontinuedbisacodyl 10 mg = 1 supp, Supp, WA, Daily PRN for constipation, first dose 04/07/19 14:43:00 CDT Start Date: 04/07/19 Stop Date: 04/09/19 Status: DiscontinuedbusPIRone 30 mg, Oral, BID, 0 Refill(s) Start Date: 03/26/19 Stop Date: 04/09/19 Status: OrderedbusPIRone 30 mg, Tab, Oral, BID, first dose 04/07/19 17:00:00 CDT, Patient's Own Meds Start Date: 04/07/19 Stop Date: 04/09/19 Status: DiscontinuedceFAZolin 2 gm, IV Piggyback, Once, infuse over 30 minutes, first dose 04/07/19 10:00:00 CDT, stop date 04/07/19 10:00:00 CDT, Prophylaxis Start Date: 04/07/19 Stop Date: 04/07/19 Status: CompletedceFAZolin 2 gm, Powder-Inj, IV, Once, first dose 04/07/19 10:58:00 CDT, stop date 04/07/19 10:58:00 CDT Start Date: 04/07/19 Stop Date: 04/07/19 Status: CompletedceFAZolin 1 gm, IV Piggyback, q8hr, infuse over 30 minutes, first dose 04/07/19 19:00:00 CDT, stop date 04/08/19 13:08:00 CDT, Prophylaxis Start Date: 04/07/19 Stop Date: 04/08/19 Status: Completedcephalexin 500 mg = 2 caps, Cap, Oral, QID, first dose 04/08/19 21:00:00 CDT, Urinary Tract Infection Start Date: 04/08/19 Stop Date: 04/09/19 Status: DiscontinuedCipro 500 mg oral tablet 500 mg = 1 tabs, Oral, q12hr, 0 Refill(s) Start Date: 04/07/19 Stop Date: 04/21/19 Status: Orderedclonazepam 0.5 mg oral tablet 0.25 mg = 0.5 tabs, Oral, BID, 0 Refill(s) Start Date: 09/19/13 Stop Date: 05/10/17 Status: Discontinuedclopidogrel 75 mg oral tablet 75 mg = 1 tabs, Oral, qHS, stopping 03/31, # 30 tabs, 0 Refill(s) Start Date: 05/10/17 Stop Date: 05/24/17 Status: Orderedcognium cognium, 100mg daily, 0 Refill(s) Start Date: 05/10/17 Stop Date: 03/26/19 Status: DiscontinuedCranberry 1 tab, Oral, Daily, 0 Refill(s) Start Date: 05/10/17 Stop Date: 04/07/19 Status: DiscontinuedDemerol HCl 12.5 mg = 0.5 mL, Injection, IV Push, q5min PRN for shivers, order duration: 4 doses, first dose 04/07/19 13:17:00 CDT, stop date Limited # of times Start Date: 04/07/19 Stop Date: 04/07/19 Status: Discontinueddexamethasone 4 mg = 1 mL, Injection, IV, Once, first dose 04/07/19 11:00:00 CDT, stop date 04/07/19 11:00:00 CDT Start Date: 04/07/19 Stop Date: 04/07/19 Status: CompletedDULoxetine 60 mg = 1 caps, Cap-DR, Oral, Daily, first dose 04/08/19 9:00:00 CDT, Patient's Own Meds Start Date: 04/08/19 Stop Date: 04/09/19 Status: DiscontinuedDULoxetine 60 mg, Oral, BID, 0 Refill(s) Start Date: 03/26/19 Stop Date: 04/09/19 Status: OrderedEdarbi 40 mg oral tablet 40 mg = 1 tabs, Oral, BID, 0 Refill(s) Start Date: 05/10/17 Stop Date: 03/26/19 Status: DiscontinuedfentaNYL 50 mcg = 1 mL, Injection, IV Push, q5min PRN for Pain Mild (1-3), order duration: 2 doses, first dose 04/07/19 13:17:00 CDT, stop date Limited # of times Start Date: 04/07/19 Stop Date: 04/07/19 Status: DiscontinuedfentaNYL 100 mcg = 2 mL, Injection, IV, Once, first dose 04/07/19 10:31:00 CDT, stop date 04/07/19 10:31:00 CDT Start Date: 04/07/19 Stop Date: 04/07/19 Status: CompletedfentaNYL 100 mcg = 2 mL, Injection, IV, Once, first dose 04/07/19 10:58:00 CDT, stop date 04/07/19 10:58:00 CDT Start Date: 04/07/19 Stop Date: 04/07/19 Status: Completedferrous sulfate 325 mg = 1 tabs, Tab, Oral, BIDPC, first dose 04/07/19 20:00:00 CDT Start Date: 04/07/19 Stop Date: 04/09/19 Status: DiscontinuedFleet Enema 133 mL, Enema, [place], Once PRN for constipation, first dose 04/07/19 14:43:00 CDT Start Date: 04/07/19 Stop Date: 04/09/19 Status: DiscontinuedFlintstones with Iron oral tablet, chewable 1 tabs, Chewed, Daily, 0 Refill(s) Start Date: 09/19/13 Stop Date: 05/10/17 Status: Discontinuedglycopyrrolate 0.2 mg = 1 mL, Injection, IV, Once, first dose 04/07/19 11:43:00 CDT, stop date 04/07/19 11:43:00 CDT Start Date: 04/07/19 Stop Date: 04/07/19 Status: Completedglycopyrrolate 0.2 mg = 1 mL, Injection, IV, Once, first dose 04/07/19 12:15:00 CDT, stop date 04/07/19 12:15:00 CDT Start Date: 04/07/19 Stop Date: 04/07/19 Status: Completedglycopyrrolate 0.2 mg = 1 mL, Injection, IV, Once, first dose 04/07/19 12:38:00 CDT, stop date 04/07/19 12:38:00 CDT Start Date: 04/07/19 Stop Date: 04/07/19 Status: CompletedhydrOXYzine 25 mg = 1 tabs, Tab, Oral, QID PRN for anxiety, first dose 04/07/19 14:47:00 CDT, Patient's Own Meds Start Date: 04/07/19 Stop Date: 04/07/19 Status: DiscontinuedhydrOXYzine 25 mg, Oral, BID, 0 Refill(s) Start Date: 03/26/19 Stop Date: 04/09/19 Status: OrderedhydrOXYzine 25 mg = 1 tabs, Tab, Oral, qPM PRN for anxiety, first dose 04/07/19 21:00:00 CDT, Patient's Own Meds Start Date: 04/07/19 Stop Date: 04/09/19 Status: Discontinuedketorolac 15 mg = 1 mL, Injection, IV Push, q8hr PRN for breakthrough pain, first dose 04/07/19 14:47:00 CDT, stop date 04/12/19 14:30:00 CDT Start Date: 04/07/19 Stop Date: 04/09/19 Status: DiscontinuedLevemir FlexPen 35 units, Subcutaneous, BID, 0 Refill(s) Start Date: 05/10/17 Stop Date: 03/26/19 Status: DiscontinuedLevemir FlexPen 30 units, Subcutaneous, BID, 0 Refill(s) Start Date: 09/19/13 Stop Date: 05/10/17 Status: Discontinuedlevothyroxine 88 mcg, Oral, Daily, 0 Refill(s) Start Date: 05/10/17 Stop Date: 05/24/17 Status: Orderedlidocaine 100 gm = 5 mL, Injection, IV, Once, first dose 04/07/19 10:58:00 CDT, stop date 04/07/19 10:58:00 CDT Start Date: 04/07/19 Stop Date: 04/07/19 Status: CompletedLinzess 72 mcg, Oral, qHS, 0 Refill(s) Start Date: 03/26/19 Stop Date: 04/09/19 Status: OrderedLinzess 145 mcg oral capsule 145 mcg = 1 caps, Oral, Daily, 0 Refill(s) Start Date: 05/10/17 Stop Date: 03/26/19 Status: Discontinuedlisinopril 20 mg, Oral, BID, 0 Refill(s) Start Date: 03/26/19 Stop Date: 04/09/19 Status: Orderedlisinopril 20 mg = 1 tabs, Tab, Oral, BID, first dose 04/07/19 21:00:00 CDT, Patient's Own Meds Start Date: 04/07/19 Stop Date: 04/09/19 Status: Discontinuedlisinopril 40 mg oral tablet 40 mg = 1 tabs, Oral, Daily, 0 Refill(s) Start Date: 09/19/13 Stop Date: 05/10/17 Status: Discontinuedlovastatin 40 mg oral tablet 40 mg = 1 tabs, Oral, Daily, 0 Refill(s) Start Date: 09/19/13 Stop Date: 05/10/17 Status: DiscontinuedLR 1,000 mL 1,000 mL, IV, 60 mL/hr, start date 04/07/19 14:43:00 CDT, Change rate to 45ml/hr if using MANAGER FLEET or convert to Saline Lock Start Date: 04/07/19 Stop Date: 04/09/19 Status: DiscontinuedLR 1,000 mL 1,000 mL, IV, 100 mL/hr, start date 04/07/19 9:18:00 CDT, For Adults Start Date: 04/07/19 Stop Date: 04/07/19 Status: Discontinuedmidazolam 2 mg = 2 mL, Injection, IV, Once, first dose 04/07/19 10:30:00 CDT, stop date 04/07/19 10:30:00 CDT Start Date: 04/07/19 Stop Date: 04/07/19 Status: CompletedMilk of Magnesia 30 mL, Susp, Oral, qHS PRN for constipation, first dose 04/07/19 14:43:00 CDT Start Date: 04/07/19 Stop Date: 04/09/19 Status: DiscontinuedMilk Thistle 2, Oral, Daily, 0 Refill(s) Start Date: 09/19/13 Stop Date: 05/10/17 Status: DiscontinuedMisc Medication 900 mL, Soln-IV, IV, Once, first dose 04/07/19 13:06:00 CDT, stop date 04/07/19 13:06:00 CDT Start Date: 04/07/19 Stop Date: 04/07/19 Status: CompletedMisc Medication min and multivitamin supplement, 0 Refill(s) Start Date: 05/10/17 Stop Date: 03/26/19 Status: Discontinuedmorphine 1 mg, IV Push, q5min PRN for Pain Moderate (4-6), order duration: 5 doses, first dose 04/07/19 13:17:00 CDT, stop date Limited # of times Start Date: 04/07/19 Stop Date: 04/07/19 Status: Discontinuedmorphine 2 mg, IV Push, q5min PRN for pain severe (7-10), order duration: 5 doses, first dose 04/07/19 13:17:00 CDT, stop date Limited # of times Start Date: 04/07/19 Stop Date: 04/07/19 Status: Discontinuedmorphine MANAGER FLEET 1 mg/mL 30 mg 30 mL, MANAGER FLEET Dose (mg): 1, Lockout Interval (min): 5, Limit Amount (mg): 5, Limit Period (hr): 1, Continuous Rate (mg/hr): 0, Loading Dose (mg): 2, RN Adm Bolus (mg): 1, Bolus Dose Lockout (hr): 1, IV, MANAGER FLEET, start date 04/07/19 14:43:00 CDT Start Date: 04/07/19 Stop Date: 04/07/19 Status: Discontinuedmultivitamin with minerals 1 tabs, Tab, Oral, Daily, first dose 04/08/19 9:00:00 CDT Start Date: 04/08/19 Stop Date: 04/09/19 Status: Discontinuedmyrbetriq 50 mg, Misc, Oral, Daily, first dose 04/08/19 9:00:00 CDT, Patient's Own Meds Start Date: 04/08/19 Stop Date: 04/09/19 Status: DiscontinuedMyrbetriq 50 mg, Oral, Daily, 0 Refill(s) Start Date: 03/26/19 Stop Date: 04/09/19 Status: Orderednaloxone 0.4 mg = 1 mL, Injection, IV Push, q2min PRN for other (see comment), first dose 04/07/19 14:43:00 CDT Start Date: 04/07/19 Stop Date: 04/09/19 Status: Discontinuedneostigmine 3 mg = 3 mL, Injection, IV, Once, first dose 04/07/19 12:38:00 CDT, stop date 04/07/19 12:38:00 CDT Start Date: 04/07/19 Stop Date: 04/07/19 Status: CompletedNorco 10 mg-325 mg oral tablet 1 tabs, Tab, Oral, q4hr PRN for Pain Moderate (4-6), first dose 04/07/19 14:47:00 CDT Notes: Max 4gm acetaminophen in 24 hours Start Date: 04/07/19 Stop Date: 04/09/19 Status: DiscontinuedNorco 10 mg-325 mg oral tablet 2 tabs, Tab, Oral, q4hr PRN for pain severe (7-10), first dose 04/07/19 14:47:00 CDT Notes: Max 4gm acetaminophen in 24 hours Start Date: 04/07/19 Stop Date: 04/09/19 Status: DiscontinuedNorco 7.5 mg-325 mg oral tablet 1 tabs, Tab, Oral, q4hr PRN for Pain Mild (1-3), first dose 04/07/19 14:47:00 CDT Notes: Max 4gm acetaminophen in 24 hours Start Date: 04/07/19 Stop Date: 04/09/19 Status: Discontinuedomeprazole 20 mg, Oral, Daily, 0 Refill(s) Start Date: 03/26/19 Stop Date: 04/09/19 Status: Orderedomeprazole 20 mg = 1 caps, Cap-EC, Oral, Daily, first dose 04/08/19 9:00:00 CDT Start Date: 04/08/19 Stop Date: 04/09/19 Status: Discontinuedomeprazole 20 mg oral delayed release tablet 20 mg = 1 tabs, Oral, Daily, 0 Refill(s) Start Date: 09/19/13 Stop Date: 05/10/17 Status: Discontinuedondansetron 4 mg = 2 mL, Injection, IV, Once, first dose 04/07/19 11:00:00 CDT, stop date 04/07/19 11:00:00 CDT Start Date: 04/07/19 Stop Date: 04/07/19 Status: CompletedPain Ease topical spray 1 sprays, [place], TOP, Once, first dose 04/07/19 10:00:00 CDT, stop date 04/07/19 10:00:00 CDT, Applytopically for 4 - 10 seconds from a distance of 3 - 7 inches from the procedure site Start Date: 04/07/19 Stop Date: 04/07/19 Status: Completedpravastatin 20 mg = 1 tabs, Tab, Oral, qHS, first dose 04/07/19 21:00:00 CDT, Patient's Own Meds Start Date: 04/07/19 Stop Date: 04/09/19 Status: Discontinuedpravastatin 20 mg, Oral, qHS, 0 Refill(s) Start Date: 03/26/19 Stop Date: 04/09/19 Status: OrderedpredniSONE 20 mg, Oral, Daily, 0 Refill(s) Start Date: 03/26/19 Stop Date: 04/09/19 Status: Orderedpromethazine IVPB 12.5 mg, IV Piggyback, Once PRN for nausea/vomiting, infuse over 15 minutes, first dose 04/07/19 13:17:00 CDT Start Date: 04/07/19 Stop Date: 04/07/19 Status: Discontinuedpromethazine IVPB 12.5 mg, IV Piggyback, q4hr PRN for nausea/vomiting, infuse over 15 minutes, first dose 04/07/19 14:43:00 CDT Start Date: 04/07/19 Stop Date: 04/09/19 Status: Discontinuedpropofol 150 mg = 15 mL, Emulsion, IV, Once, first dose 04/07/19 10:58:00 CDT, stop date 04/07/19 10:58:00 CDT Start Date: 04/07/19 Stop Date: 04/07/19 Status: Completedpropofol 50 mg = 5 mL, Emulsion, IV, Once, first dose 04/07/19 12:34:00 CDT, stop date 04/07/19 12:34:00 CDT Start Date: 04/07/19 Stop Date: 04/07/19 Status: CompletedRexulti 1 mg, Oral, Daily, 0 Refill(s) Start Date: 03/26/19 Stop Date: 04/09/19 Status: Orderedrexulti 1 mg, Misc, Oral, Daily, first dose 04/08/19 9:00:00 CDT, Patient's Own Meds Start Date: 04/08/19 Stop Date: 04/09/19 Status: Discontinuedrocuronium 10 mg = 1 mL, Injection, IV, Once, first dose 04/07/19 10:58:00 CDT, stop date 04/07/19 10:58:00 CDT Start Date: 04/07/19 Stop Date: 04/07/19 Status: Completedrocuronium 40 mg = 4 mL, Injection, IV, Once, first dose 04/07/19 11:10:00 CDT, stop date 04/07/19 11:10:00 CDT Start Date: 04/07/19 Stop Date: 04/07/19 Status: Completedropivacaine 275 mg = 55 mL, Injection, Nerve Block, Once, first dose 04/07/19 10:44:00 CDT, stop date 04/07/19 10:44:00 CDT Start Date: 04/07/19 Stop Date: 04/07/19 Status: CompletedSaline Lock Flush 10 mL, Soln, IV Push, As Indicated, first dose 04/07/19 14:43:00 CDT Start Date: 04/07/19 Stop Date: 04/09/19 Status: DiscontinuedSanctura 20 mg oral tablet 20 mg = 1 tabs, Oral, BID, 0 Refill(s) Start Date: 09/19/13 Stop Date: 05/10/17 Status: DiscontinuedSeroquel 50 mg oral tablet 50 mg = 1 tabs, Oral, Daily, 0 Refill(s) Start Date: 09/19/13 Stop Date: 05/10/17 Status: Discontinuedsimvastatin 10 mg oral tablet 10 mg = 1 tabs, Oral, qHS, # 30 tabs, 0 Refill(s) Start Date: 05/10/17 Stop Date: 03/26/19 Status: Discontinuedsuccinylcholine 100 mg = 5 mL, Injection, IV, Once, first dose 04/07/19 10:58:00 CDT, stop date 04/07/19 10:58:00 CDT Start Date: 04/07/19 Stop Date: 04/07/19 Status: CompletedSymbicort 80 mcg-4.5 mcg/inh inhalation aerosol 2 puffs, INH, BID, # 6.9 gm, 0 Refill(s) Start Date: 05/10/17 Stop Date: 05/24/17 Status: Orderedtemazepam 15 mg = 1 caps, Cap, Oral, Once a day (at bedtime) PRN for sleep, first dose 04/07/19 14:43:00 CDT Start Date: 04/07/19 Stop Date: 04/09/19 Status: Discontinuedvancomycin Increased MRSA rate (facility/procedure), 1 gm, IV Piggyback, Once, infuse over 60 minutes, first dose 04/07/19 10:00:00 CDT, stop date 04/07/19 10:00:00 CDT Start Date: 04/07/19 Stop Date: 04/07/19 Status: Completedvancomycin 1 gm, Powder-Inj, IV, Once, first dose 04/07/19 11:15:00 CDT, stop date 04/07/19 11:15:00 CDT Start Date: 04/07/19 Stop Date: 04/07/19 Status: Completedvancomycin MRSA colonization or infection, 1 gm, IV Piggyback, q12hr, infuse over 60 minutes, first dose 04/07/19 22:00:00 CDT, stop date 04/08/19 13:08:00 CDT Start Date: 04/07/19 Stop Date: 04/08/19 Status: CompletedVictoza 18 mg/3 mL subcutaneous solution 1.8 mg, Subcutaneous, Daily, 0 Refill(s) Start Date: 09/19/13 Stop Date: 05/10/17 Status: DiscontinuedViibryd 40 mg oral tablet 40 mg = 1 tabs, Oral, Daily, 0 Refill(s) Start Date: 09/19/13 Stop Date: 05/10/17 Status: DiscontinuedVimovo 500 mg-20 mg oral delayed release tablet 1 tabs, Oral, BID, # 60 tabs, 0 Refill(s) Start Date: 05/10/17 Stop Date: 03/26/19 Status: DiscontinuedVitamin C 500 mg = 1 tabs, Tab, Oral, Daily, first dose 04/08/19 9:00:00 CDT Start Date: 04/08/19 Stop Date: 04/09/19 Status: DiscontinuedVitamin D chewable 5000 units 1 tabs, Oral, BID, # 30 tabs, 0 Refill(s) Start Date: 05/10/17 Stop Date: 04/07/19 Status: DiscontinuedVitamin D chewable 5000 units 1 tabs, Oral, Daily, # 30 tabs, 0 Refill(s) Start Date: 09/19/13 Stop Date: 05/10/17 Status: DiscontinuedXanax 0.5 mg oral tablet 0.5 mg = 1 tabs, Oral, QID, PRN for anxiety, 0 Refill(s) Start Date: 05/10/17 Stop Date: 03/26/19 Status: DiscontinuedXarelto 10 mg = 1 tabs, Tab, Oral, Daily, first dose 04/08/19 9:00:00 CDT Start Date: 04/08/19 Stop Date: 04/09/19 Status: DiscontinuedZofran ODT 4 mg = 1 tabs, Tab-Dis, Oral, q6hr PRN for nausea/vomiting, first dose 04/07/19 14:43:00 CDT Start Date: 04/07/19 Stop Date: 04/09/19 Status: Discontinued Results LABORATORY Most recent to oldest [Reference Range]: 1 Results Reported (03/26/19 12:26 PM) White Blood Count [3.7-10.4 K/CMM] 8.2 K/CMM *NA* (03/26/19 12:26 PM) Red Blood Cell Count [4.20-5.40 M/CMM] 3.76 M/CMM *LOW* (03/26/19 12:26 PM) Hemoglobin [12.0-16.0 gm/dL] 12.1 gm/dL *NA* (03/26/19 12:26 PM) Hematocrit [36.0-48.0 %] 36.4 % *NA* (03/26/19 12:26 PM) Platelet [133-450 K/CMM] 210 K/CMM *NA* (03/26/19 12:26 PM) MCV [80.0-98.0 fL] 96.8 fL *NA* (03/26/19 12:26 PM) MCH [27.0-31.0 pg] 32.2 pg *HI* (03/26/19 12:26 PM) MCHC [32.0-36.0 gm/dL] 33.3 gm/dL *NA* (03/26/19 12:26 PM) RDW [11.5-14.5 %] 13.8 % *NA* (03/26/19 12:26 PM) MPV [7.4-10.4 fL] 8.4 fL *NA* (03/26/19 12:26 PM) Neutrophil % [45.0-75.0 %] 68.9 % *NA* (03/26/19 12:26 PM) Lymphocyte % [20.0-40.0 %] 18.7 % *LOW* (03/26/19 12:26 PM) Monocyte % [2.0-12.0 %] 9.8 % *NA* (03/26/19 12:26 PM) Eosinophil % [0.0-0.5 K/CMM] 0.2 K/CMM *NA* (03/26/19 12:26 PM) Basophil % [0.0-1.0 %] 0.7 % *NA* (03/26/19 12:26 PM) Neutrophil # [1.5-8.1 K/CMM] 5.6 K/CMM *NA* (03/26/19 12:26 PM) Lymphocyte # [1.0-5.5 K/CMM] 1.5 K/CMM *NA* (03/26/19 12:26 PM) Monocyte # [0.0-0.8 K/CMM] 0.8 K/CMM *NA* (03/26/19 12:26 PM) Eosinophil # [0.0-4.0 %] 1.9 % *NA* (03/26/19 12:26 PM) Basophil # [0.0-0.2 K/CMM] 0.1 K/CMM *NA* (03/26/19 12:26 PM) PT [12.0-14.7 seconds] 12.6 seconds *NA* (03/26/19 12:26 PM) INR [0.85-1.17] 0.96 1 *NA* (03/26/19 12:26 PM) PTT [22.9-35.8 seconds] 28.5 seconds 2 *NA* (03/26/19 12:26 PM) UA Color [Yellow] Yellow *NA* (03/26/19 12:26 PM) UA Spec Grav [<=1.030] 1.019 *NA* (03/26/19 12:26 PM) UA Bili [Negative] Negative *NA* (03/26/19 12:26 PM) UA pH [5.0-8.0] 5.0 *NA* (03/26/19 12:26 PM) UA Urobilinogen [0.1-1.0 mg/dL] <=1.0 mg/dL *NA* (03/26/19 12:26 PM) UA Blood [Negative] Negative *NA* (03/26/19 12: PM) UA Glucose [Negative] Negative *NA* (03/26/19 12: PM) UA Ketones [Negative] Negative *NA* (03/26/19 12: PM) UA Protein [Negative] Negative *NA* (03/26/19 12: PM) UA Nitrite [Negative] Positive *NA* (03/26/19 12: PM) UA Leuk Est [Negative] Moderate *NA* (03/26/19 12: PM) UA WBC [0-5 /HPF] 52 /HPF *HI* (03/26/19 12: PM) UA RBC [0-2 /HPF] 4 /HPF *HI* (03/26/19 12: PM) UA Mucous [None Seen] Few *NA* (03/26/19 12: PM) UA Bacteria [None Seen] Occasional *NA* (03/26/19 12: PM) UA Squam Epithelial [Few] Few *NA* (03/26/19 12:26 PM) UA Hyaline Casts [0-2 /LPF] 1 /LPF *NA* (03/26/19 12:26 PM) UA Turbidity [Clear] Slight *NA* (03/26/19 12:26 PM) Sodium Level [135-145 mEq/L] 143 mEq/L *NA* (03/26/19 12: PM) Potassium Level [3.5-5.1 mEq/L] 5.3 mEq/L *HI* (03/26/19 12: PM) Chloride Level [95-109 mEq/L] 106 mEq/L *NA* (03/26/19 12: PM) Total Carbon Dioxide Level [24-32 mEq/L] 30 mEq/L *NA* (03/26/19 12: PM) AGAP [10.0-20.0 mEq/L] 12.3 mEq/L *NA* (03/26/19 12:26 PM) BUN [7-22 mg/dL] 25 mg/dL *HI* (03/26/19 12:26 PM) Creatinine [0.50-1.40 mg/dL] 0.97 mg/dL *NA* (03/26/19 12:26 PM) Glucose Lvl [70-99 mg/dL] 94 mg/dL 3 *NA* (03/26/19 12:26 PM) Calcium Level [8.5-10.5 mg/dL] 9.1 mg/dL *NA* (03/26/19 12: PM) Albumin Lvl [3.5-5.0 gm/dL] 3.8 gm/dL *NA* (03/26/19 12: PM) Protein Total [6.4-8.4 gm/dL] 7.1 gm/dL *NA* (03/26/19 12: PM) Alk Phos [39-136 unit/L] 82 unit/L 4 *NA* (03/26/19 12:26 PM) AST [0-37 unit/L] 20 unit/L *NA* (03/26/19 12: PM) ALT [0-65 unit/L] 30 unit/L *NA* (03/26/19 12:26 PM) Bilirubin Total [0.2-1.3 mg/dL] 0.3 mg/dL *NA* (03/26/19 12:26 PM) eGFR 62 mL/min/1.73m2 5 *NA* (03/26/19 12:26 PM) Globulin [2.7-4.2 gm/dL] 3.3 gm/dL *NA* (03/26/19 12:26 PM) Alb/Glob Ratio [0.7-1.6] 1.2 *NA* (03/26/19 12: PM) MRSA Nasal Swab Positive 6 *NA* (03/26/19 12:26 PM) Sodium - POC [138-144 mmol/L] 142 mmol/L (04/07/19 10:04 AM) Potassium - POC [3.6-5.1 mmol/L] 4.4 mmol/L (04/07/19 10:04 AM) Chloride - POC [101-111 mmol/L] 104 mmol/L (04/07/19 10:04 AM) Ionized Ca - POC [1.12-1.32 mmol/L] 1.22 mmol/L (04/07/19 10:04 AM) TCO2 - POC [22-32 mmol/L] 29 mmol/L (04/07/19 10:04 AM) Glucose - POC [74-118 mg/dL] 129 mg/dL *HI* (04/07/19 10:04 AM) BUN - POC [8-26 mg/dL] 22 mg/dL (04/07/19 10:04 AM) Creatinine - POC [0.6-1.3 mg/dL] 0.9 mg/dL (04/07/19 10:04 AM) Hematocrit - POC [35-48 %] 38 % (04/07/19 10:04 AM) Hemoglobin - POC [12-16 G/DL(%)] 12.9 G/DL(%) (04/07/19 10:04 AM) Anion Gap - POC [6-17 mmol/L] 14 mmol/L (04/07/19 10:04 AM) 1Result Comment: RECOMMENDED RANGES FOR PROTIME INR: 2.0-3.0 for most medical and surgical thromboembolic states. 2.5-3.5 for artificial heart valves and recurrent embolism. INR SHOULD BE USED ONLY FOR PATIENTS ON STABLE ANTICOAGULANT THERAPY.2Result Comment: Heparin Therapeutic Range: 67 - 87 [id number] Comment: Adult reference range values reflect the clinical guidelines of the [place] [employer].4Result Comment: The pediatric reference ranges for this test represent a CLSI-based transference of the CALIPER database of pediatric reference intervals to the Siemens [place] analyzer (Clinical Biochemistry 46 (2013): 2764-2356). [facility] [employer] [facility] has not internally validated these reference ranges and therefore they should be used only in the context of a thorough clinical assessment.5Result Comment: The eGFR is calculated using the [...] eGFR should be multiplied by the estimated BMI.6Result Comment: "Significant Findings called to Macrina Johnson at 03/27/2019 10:32 by [email or web address]. Read Back OK." Interpretive Data: The [employer] MRSA assay is a qualitative test for the direct detection of nasal colonization with methicillin-resistant Staphylococcus aureus (MRSA) to aid in the prevention and control of MRSA infections in healthcare settings. A positive result does not indicate an infection or require treatment. A negative result does not exclude colonization or infection. The polymerase chain reaction (PCR) assay detects a proprietary sequence indicative of the integration of the SCCmec cassette into the Staphylococcus aureus chromosome, indicating the presence of MRSA DNA. The assay utilizes FDA cleared IVD reagents. Performance characteristics have been verified by the [facility] within the [facility]. The [facility] is authorized under the Clinical Laboratory Improvement Amendment of 1988 (CLIA-88) to perform high complexity testing. Immunizations No data available for this section Procedures No data available for this section Social History Social History Type Response Smoking Status Former smoker entered on: 09/19/13 Assessment and Plan No data available for this section
--- OUTSIDE RECORDS SUMMARY | 2019-11-19 16:37 | XMS REPORT | CCD ---
:1955 [address] [facility] Care Team Providers Name Role Phone Philip Roper Consulting Provider [phone] Allergies, Adverse Reactions, Alerts Substance Reaction Status Bactrim Active sulfamethoxazole Active Problem List Condition Effective Dates Status acid replux Active Depression Active DIABETES MELLITUS Active HTN [Hypertension] Active Hyperlipidemia Active Hypothyroidism Active right foot pain Active Medications Medication Instructions Start Date End Date Status fentanyl 100 mcg = 2 mL, 09/25/2013 09/25/2013 Completed Injection, IV, Once, first dose 09/25/13 8:14:00 CDT, stop date 09/25/13 8:14:00 CDT midazolam 2 mg = 2 mL, Implant, IV, 09/25/2013 09/25/2013 Co mpleted Once, first dose 09/25/13 8:14:00 CDT, stop date 09/25/13 8:14:00 CDT cefazolin 1 gm, Soln-IV, IV 09/25/2013 09/25/2013 Completed Piggyback, Once, infuse over 30 minutes, first dose 09/25/13 7:00:00 CDT, stop date 09/25/13 7:00:00 CDT clonazepam 0.5 mg oral 0.25 mg = 0.5 tabs, Oral, 09/19/201310/03 Ordered tablet BID, 0 Refill(s) Seroquel 50 mg oral 50 mg = 1 tabs, Oral, 09/19/2013 10/03/2013 Ordered tablet Daily, 0 Refill(s) Milk Thistle 2, Oral, Daily, 0 09/19/2013 10/03/2013 Ordered Refill(s) Flintstones with Iron 1 tabs, Chewed, Daily, 0 09/19/2013 014 Ordered oral tablet, chewable Refill(s) Vitamin D chewable 5000 1 tabs, Oral, Daily, # 30 09/19/201309/2013 Ordered units tabs, 0 Refill(s) lisinopril 40 mg oral 40 mg = 1 tabs, Oral, 09/19/2013 10/03/2013 Ordered tablet Daily, 0 Refill(s) Victoza 18 mg/3 mL 1.8 mg, Subcutaneous, 09/19/2013 10/03/2013 Ordered subcutaneous solution Daily, 0 Refill(s) lovastatin 40 mg oral 40 mg = 1 tabs, Oral, 09/19/2013 10/03/2013 Ordered tablet Daily, 0 Refill(s) omeprazole 20 mg oral 20 mg = 1 tabs, Oral, 09/19/2013 10/03/2013 Ordered delayed release tablet Daily, 0 Refill(s) Viibryd 40 mg oral tablet 40 mg = 1 tabs, Oral, 09/19/20132013 Ordered Daily, 0 Refill(s) Levemir FlexPen 30 units, Subcutaneous, 09/19/2013 10/03/2013 O rdered BID, 0 Refill(s) Sanctura 20 mg oral 20 mg = 1 tabs, Oral, 09/19/2013 10/03/2013 Ordered tablet BID, 0 Refill(s) propofol 100 mg = 10 mL, Emulsion, 09/25/2013 09/25/2013 Co mpleted IV, Once, first dose 09/25/13 8:17:00 CDT, stop date 09/25/13 8:17:00 CDT lidocaine 3 mL, Injection, IV, 09/25/2013 09/25/2013 Complet ed Once, first dose 09/25/13 8:15:00 CDT, stop date 09/25/13 8:15:00 CDT propofol 50 mg = 5 mL, Emulsion, 09/25/2013 09/25/2013 Comp leted IV, Once, first dose 09/25/13 8:28:00 CDT, stop date 09/25/13 8:28:00 CDT propofol 50 mg = 5 mL, Emulsion, 09/25/2013 09/25/2013 Comp leted IV, Once, first dose 09/25/13 8:37:00 CDT, stop date 09/25/13 8:37:00 CDT propofol 100 mg = 10 mL, Emulsion, 09/25/2013 09/25/2013 Co mpleted IV, Once, first dose 09/25/13 8:32:00 CDT, stop date 09/25/13 8:32:00 CDT Misc Medication 250 mL, Soln-IV, IV, 09/25/2013 09/25/2013 Comp leted Once, first dose 09/25/13 8:48:00 CDT, stop date 09/25/13 8:48:00 CDT propofol 50 mg = 5 mL, Emulsion, 09/25/2013 09/25/2013 Comp leted IV, Once, first dose 09/25/13 8:41:00 CDT, stop date 09/25/13 8:41:00 CDT propofol 100 mg = 10 mL, Emulsion, 09/25/2013 09/25/2013 Co mpleted IV, Once, first dose 09/25/13 8:23:00 CDT, stop date 09/25/13 8:23:00 CDT Sodium Chloride 0.9% 250 250 mL, IV, 25 mL/hr, 09/25/2013 014 Discontinued mL start date 09/25/13 6:54:00 CDT ethyl chloride topical 1 sprays, [place], TOP, 09/25/2013 4 Completed spray Once, first dose 09/25/13 7:00:00 CDT, stop date 09/25/13 7:00:00 CDT Demerol HCl 12.5 mg = 0.5 mL, 09/25/2013 09/25/2013 Discontinu ed Injection, IV Push, q5min PRN for Pain Mild (1-3), order duration: 4 doses, first dose 09/25/13 9:18:00 CDT, stop date Limited # of times morphine 2 mg = 0.2 mL, Injection, 09/25/2013 09/25/2013 Di scontinued IV Push, q5min PRN for pain severe (7-10), order duration: 5 doses, first dose 09/25/13 9:18:00 CDT, stop date Limited # of times promethazine IVPB 12.5 mg, IV Piggyback, 09/25/2013 09/25/2013 Discontinued Once PRN for nausea/vomiting, infuse over 15 minutes, first dose 09/25/13 9:18:00 CDT Vital Signs Most recent to oldest 1 2 3 [Reference Range]: Temperature Oral [35.8-37.3 36.9 DegC 37.0 DegC DegC] (09/25/2013 07:13:00) (09/19/2013 13:09:00) Apical Heart Rate [55-105 76 bpm bpm] (09/19/2013 13:09:00) Peripheral Pulse Rate 77 bpm [55-105 bpm] (09/25/2013 07:13:00) Heart Rate Monitored 72 bpm 71 bpm 74 bpm [60-100 bpm] (09/25/2013 09:15:00) (09/25/2013 09:10:00) ( 09:05:00) Respiratory Rate [12-20] 9 11 13 *LOW* *LOW* (09/25/2013 09:0 5:00) (09/25/2013 09:15:00) (09/25/2013 09:10:00) SpO2 [90-100 %] 97 % 97 % 98 % (09/25/2013 09:15:00) (09/25/2013 09:10:00) ( 09:05:00) Systolic Blood Pressure 119 mmHg 129 mmHg 123 mmHg [110-120 mmHg] (09/25/2013 09:15:00) *HI* *HI* (09/25/2013 09:10:00) ( 4 09:05:00) Diastolic Blood Pressure 81 mmHg 87 mmHg 82 mmHg [65-85 mmHg] (09/25/2013 09:15:00) *HI* ( 4 09:05:00) (09/25/2013 09:10:00) Mean Arterial Pressure, 93.7 mmHg 101 mmHg 95.7 mmH g Cuff (09/25/2013 09:15:00) (09/25/2013 09:10:00) ( 09:05:00) Height 163 cm (09/19/2013 13:09:00) Height/Length Dosing 163 cm (09/19/2013 13:09:00) Height Inches 64 in (09/19/2013 13:09:00) Weight 122.8 kg (09/19/2013 13:09:00) Weight Dosing 122.8 kg (09/19/2013 13:09:00) Weight Pounds 270 lb (09/19/2013 13:09:00) Body Mass Index 46.22 kg/m2 (09/19/2013 13:09:00) Procedures Procedures Date Related Diagnosis ACL band replacement ankle - right Appendectomy bunion right foot Cholecystectomy Excision, interdigital (Barton) neuroma, 09/25/2013 00:00:00 single, each Excision, interdigital (Barton) neuroma, 09/25/2013 00:00:00 single, each Fasciotomy 09/25/2013 00:00:00 Fasciotomy, foot and/or toe 09/25/2013 00:00:00 gastro sleeve Hysterectomy left total hip Other excision or avulsion of cranial and 09/25/2013 00:00:0 0 peripheral nerves Radiologic examination, chest, 2 views, frontal 09/25/2013 0 0:00:00 and lateral; right cataract surgery Tonsillectomy
[2019-11-19] MEDS ORDERED: NA CHLORIDE 0.9% 1,000 ML ONE (16:39)
--- OUTSIDE RECORDS SUMMARY | 2019-11-19 16:39 | XMS REPORT | Summary of Care ---
:1955 Author Name ANDREA BULL M.D. Address Unavailable Unavailable , Care Team Providers Name Role Phone ANDREA BULL M.D. Unavailable Unavailable DIANNE MACKEY, DINH Blake Unavailable Unavailable ANDREA BULL MD Unavailable Unavailable Unavailable Unavailable Unavailable Functional Status Name Dates Details Functional status health issues are not documented Status: Name Dates Details Cognitive status health issues are not documented Status: Problems Name Dates Details Acute pain of both shoulders (719.41, M25.511) Status: Active Primary osteoarthritis of both shoulders (715.11, M19.011) Status: Active Hip pain, bilateral (719.45, M25.551) St atus: Active Primary osteoarthritis of left hip (715.15, M16.12) Status: Active Arthritis of right hip (716.95, M16.11) Status: Active Primary osteoarthritis of both knees (715.16, M17.0) Status: Active 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, 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) Status: A ctive Arthritis of knee, left (716.96, M17.12) Status: Active Status post total left knee replacement (V43.65, Z96.652) Status: Active Contusion of left knee, initial encounter (924.11, S80.02XA) Status: Active Medications Name Dates Details Alendronate Sodium 70 MG Oral Tablet Refills: 0 Active Plavix 75 MG Oral Tablet Refills: 0 Active Levemir SOLN Refills: 0 Active Levo-T 125 MCG Oral Tablet Refills: 0 Active Xanax 0.5 MG Oral Tablet Refills: 0 Active Linzess 145 MCG Oral Capsule Refills: 0 Active Symbicort 80-4.5 MCG/ACT Inhalation Aerosol Refills: 0 Active Vimovo 500-20 MG Oral Tablet Delayed Release Refills: 0 Active Pentazocine-Naloxone HCl - 50-0.5 MG Oral Tablet TAKE 1 TABLET EVERY 4 TO 6 HOURS NEEDED FOR PAIN. Quantity: 30 Refills: 0 ANDREA BULL M.D. Start : 17-Sep-2017 Active Diclofenac Sodium 1 % Transdermal Gel APPLY TO LOWER EXTREMITIES, 4 GM OF GEL TO AFFECTED AREA 4 TIMES DAILY. DO NOT APPLY MORE THAN 16 GM DAILY TO ANY ONE AFFECTED JOINT. Quantity: 1 Refills: 2 ANDREA BULL M.D. Start : 17-Sep-2017 Active 100 GM Tube Cyclobenzaprine HCl - 10 MG Oral Tablet TAKE 1 TABLET BY MOUTH THREE TIMES A DAY NEEDED Quantity: 30 Refills: 0 ANDREA BULL M.D. Start : 15-Oct-2017 Active Meloxicam 15 MG Oral Tablet TAKE 1 TABLET DAILY NEEDED. Quantity: 30 Refills: 2 ANDREA BULL M.D. Start : 06-Feb-2018 Active Acetaminophen-Codeine 300-60 MG Oral Tablet TAKE 1 TABLET EVERY 6 TO 8 HOURS NEEDED FOR PAIN. Quantity: 30 Refills: 0 ANDREA BULL M.D. Start : 15-Oct-2017 Active Mupirocin 2 % External Ointment APPLY SPARINGLY TO AFFECTED AREA(S) 3 TIMES A DAY Quantity: 1 Refills: 0 ANDREA BULL M.D. Start : 02-Apr-2019 Active 15 GM Tube Cephalexin 500 MG Oral Capsule TAKE 1 CAPSULE 4 TIMES DAILY. Quantity: 40 Refills: 0 ANDREA BULL M.D. Start : 02-Apr-2019 Active Xarelto 10 MG Oral Tablet TAKE 1 TABLET DAILY Quantity: 14 Refills: 0 ANDREA BULL M.D. Start : 07-Apr-2019 Active Ondansetron HCl - 4 MG Oral Tablet TAKE 1 TABLET EVERY 8 HOURS Quantity: 20 Refills: 0 ANDREA BULL M.D. Start : 07-Apr-2019 Active tiZANidine HCl - 4 MG Oral Capsule TAKE 1 CAPSULE BY MOUTH THREE TIMES A DAY Quantity: 30 Refills: 0 ANDREA BULL M.D. Start : 14-Apr-2019 Active tiZANidine HCl - 4 MG Oral Tablet TAKE 1 TABLET 3 TIMES DAILY. Quantity: 30 Refills: 0 ANDREA BULL M.D. Start : 27-May-2019 Active traMADol HCl - 50 MG Oral Tablet TAKE 1 TABLET 3 TIMES DAILY NEEDED. Quantity: 28 Refills: 0 ANDREA BULL M.D. Start : 27-May-2019 Active Acetaminophen-Codeine #4 300-60 MG Oral Tablet TAKE 1 TABLET EVERY 6 TO 8 HOURS NEEDED FOR PAIN. Quantity: 30 Refills: 0 ANDREA BULL M.D. Start : 15-May-2018 Active Allergies and Adverse Reactions Name Dates Details Bactrim (Allergy) Status: Active sulfa (Allergy) Status: Active Past Medical History Name Dates Details History of arthritis (V13.4, Z87.39) Sta tus: Resolved History of asthma (V12.69, Z87.09) Statu s: Resolved History of back pain (V13.59, Z87.39) St atus: Resolved History of depression (V11.8, Z86.59) St atus: Resolved History of diabetes insipidus (V12.29, Z86.39) Status: Resolved History of hepatitis (V12.09, Z86.19) St atus: Resolved History of hypertension (V12.59, Z86.79) Status: Resolved History of thyroid disease (V12.29, Z86.39) Status: Resolved Procedures Procedure Dates Details History of No history of surgery Complet ed Immunization Name Dates Details Immunizations not documented Family History Name Dates Details Family history of diabetes insipidus (V18.19, Z83.49) Status: Active Social History Name Dates Details - Status: Name Dates Details Unknown if ever smoked Vital Signs Date Test Result Details No Known Vitals to report Results Date Description Value Details [id number] [U] XRAY KNEE 1 OR 2 VWS LEFT [id number] XR KNEE 1 OR 2 VWS LEFT Images acquired, not reported on this accession number. Plan of Care Name Dates Details Planned Observations Planned Goals not documented Interventions Provided Medication ChangesAcetaminophen-Codeine 300-60 MG Oral Tablet - Renew Cyclobenzaprine HCl - 10 MG Oral Tablet - RenewLabs/Procedures/Imaging[U] XRAY KNEE 1 OR 2 VWS LEFT [id number]; Done: 14 Jul 2019Follow-ups/ReferralsPhysical Therapy Referral; Done: 14 Jul 2019PlanPatient Education/Instructions: Patient education and reassurance was provided for better understanding of the diagnosis and treatment plan. An opportunity to ask questions was provided. Patient/caregiver was instructed to contact the office or emergency room for worsening pain, swelling, and/or any concerns. Understanding was acknowledged. Instructions to keep site iced and elevated were explained in detail. Instructions to contact the office or emergency room for worsening pain, swelling, and/or any concerns were provided. Understanding was acknowledged. X- ray images/reports were reviewed. Findings were discussed in detail. Orders: Physical Therapy Instructions Name Dates Details Instructions not documented Encounters Appointment; ANDREA BULL M.D. On: 13-Sep-2017 15 :20 Encounter Diagnosis: Problem not documented Appointment; ANDREA BULL M.D. On: 17-Sep-2017 15 :45 Encounter Diagnosis: Problem not documented Appointment; ANDREA BULL M.D. On: 15-Oct-2017 15 :45 Encounter Diagnosis: Problem not documented Appointment; ANDREA BULL M.D. On: 05-Nov-2017 16: 10 Encounter Diagnosis: Problem not documented Appointment; ANDREA BULL M.D. On: 10-Dec-2017 15 :00 Encounter Diagnosis: Problem not documented Appointment; ANDREA BULL M.D. On: 11-Jan-2018 10 :50 Encounter Diagnosis: Problem not documented Appointment; ANDREA BULL M.D. On: 06-Feb-2018 14: 10 Encounter Diagnosis: Problem not documented Appointment; ANDREA BULL M.D. On: 19-Mar-2018 14 :40 Encounter Diagnosis: Problem not documented Appointment; ANDREA BULL M.D. On: 15-May-2018 13 :55 Encounter Diagnosis: Problem not documented Appointment; ANDREA BULL M.D. On: 11-Dec-2018 14 :45 Encounter Diagnosis: Problem not documented Appointment; ANDREA BULL M.D. On: 20-Jan-2019 15 :55 Encounter Diagnosis: Problem not documented Appointment; ANDREA BULL M.D. On: 13-Mar-2019 15 :30 Encounter Diagnosis: Problem not documented Appointment; ANDREA BULL M.D. On: 07-Apr-2019 8:0 0 Encounter Diagnosis: Problem not documented Appointment; ANDREA BULL M.D. On: 14-Apr-2019 14 :10 Encounter Diagnosis: Problem not documented Appointment; ANDREA BULL M.D. On: 12-May-2019 13 :50 Encounter Diagnosis: Problem not documented Appointment; ANDREA BULL M.D. On: 12-May-2019 15 :05 Encounter Diagnosis: Problem not documented Appointment; ANDREA BULL M.D. On: 27-May-2019 10 :50 Encounter Diagnosis: Problem not documented Appointment; ANDREA BULL M.D. On: 14-Jul-2019 13 :25 Encounter Diagnosis: Problem not documented
--- OUTSIDE RECORDS SUMMARY | 2019-11-19 16:39 | XMS REPORT ---
:1955 Author Organization [facility] t Address [address] [place] [address] Care Team Providers Name Role Phone JORGITO Attending Clinician Unavailable Jorgito MACKEY Attending Clinician Judson Attending Clinician Jorgito MACKEY Admitting Clinician Judson Admitting Clinician Problems Condition Condition Condition Status Onset Resolution Last Treating Co mments Source Name Details Category Date Date Treatment Clinician Date History of History of Problem Resolve [facility] arthritis arthritis d [facility] of [place] [facility] ans History of History of Problem [facility]olve [facility] asthma asthma d [facility] [place] [facility] ans History of History of Problem Resolve [facility] back pain back pain d [facility] of [place] [facility] History of History of Problem Resolve [facility] depression depression d it y of [place] [facility] ans History of History of Problem Resolve [facility] diabetes diabetes d [place]y of [place] History of History of Problem Resolve [facility] hepatitis hepatitis d [facility]y of [place] [facility] ans History of History of Problem Resolve Univers hypertensi hypertensi d it y of on on [place] [facility] ans History of History of Problem Resolve [facility] thyroid thyroid d ity of disease disease [place] [facility] ans Arthritis Arthritis Problem Active Uni vers of knee, of knee, ity of left left [place] [facility] ans Acute pain Acute pain Problem Active U nivers of both of both [place] shoulders [place] Primary Primary Problem Active Univers osteoarthr osteoarthr it y of itis of itis [facility] both both Physici shoulders shoulders ans Hip pain, Hip pain, Problem Active Uni vers bilateral bilateral ity of [place] [facility] ans Arthritis Arthritis Problem Active Uni vers of right of right ity of hip hip [place] [facility] ans Primary Primary Problem Active Univers osteoarthr osteoarthr it y of itis of itis [facility] both knees both knees Ph ysici ans Primary Primary Problem Active Univers osteoarthr osteoarthr it y of itis of itis of [place] left hip left hip Physic i ans 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 ity of [place] [facility] ans Status Status Problem Active Univers post total post total it y of left knee left knee [place] replacemen replacemen Ph ysici t t ans Contusion Contusion Problem Active Uni vers of left of left ity of knee, knee, [place] initial initial Physici encounter encounter ans Allergies, Adverse Reactions, Alerts Allergy Allergy Status Severity Reaction(s) Onset Inactive Treating Comm ents Source Name Type Date Date Clinician Bactrim drug Active Univers allergy [facility] [place] [facility] sulfa drug Active [facility] allergy [facility] of [place] [facility] ans Family History Family Member Diagnosis Comments Start Date Stop Date Source Sister Family history of Univers ity of [place] diabetes insipidus Physic ians Medications Ordered Filled Start Stop Current Ordering Indication Dosage Frequency Signature Comments Components Source Medication Medication Date Date Medication? Clinician (SIG) Name Name traMADol traMADol 2018-07 Yes LEO Q0.3333D TAKE 1 Univers HCl - 50 MG HCl - 50 MG 1-26 [place] TABLET 3 ity of Oral Tablet Oral Tablet 00:00: M.D. TIMES [place] 00 DAILY Physici NEEDED. ans tiZANidine tiZANidine 2018-07 Yes LEO Q0.3333D TAKE 1 Univers HCl - 4 MG HCl - 4 MG 1-26 [place] TABLET 3 ity of Oral Tablet Oral Tablet 00:00: M.D. TIMES [place] 00 DAILY. Physici ans tiZANidine tiZANidine 2018-07 Yes LEO 1 Q0.3333D TAKE 1 Univers HCl - 4 MG HCl - 4 MG 0-14 [place] CAPSULE BY ity of Oral Oral 00:00: M.D. MOUTH [place] Capsule Capsule 00 THREE Physici TIMES A ans DAY Xarelto 10 Xarelto 10 2018-07 Yes LEO 1 QD TAKE 1 Univers MG Oral MG Oral 0-07 [place] TABLET it y of Tablet Tablet 00:00: M.D. DAILY [place] 00 Physici ans Ondansetron Ondansetron 2018-07 Yes LEO 1 Q8H TAKE 1 Univers HCl - 4 MG HCl - 4 MG 0-07 [place] TABLET ity of Oral Tablet Oral Tablet 00:00: M.D. EVERY 8 [place] 00 HOURS Physici ans Cephalexin Cephalexin 2018-07 Yes LEO Q0.25D TAKE 1 Univers 500 MG Oral 500 MG Oral 0-02 [place] CAPSULE 4 ity of Capsule Capsule 00:00: M.D. TIMES [place] 00 DAILY. Physici ans Mupirocin 2 Mupirocin 2 2018-07 Yes LEO Q0.3333D APPLY Univers % External % External 0-02 [place] SPARINGLY ity of Ointment Ointment 00:00: M.D. TO [place] 00 AFFECTED Physici AREA(S) 3 ans TIMES A DAY Acetaminoph Acetaminoph 2017-07 Yes LEO TAKE 1 Univers en-Codeine en-Codeine 1-14 [place] TABLET ity of #4 300-60 #4 300-60 00:00: M.D. EVERY 6 TO [place] MG Oral MG Oral 00 8 HOURS Phy sici Tablet Tablet NEEDED FOR ans PAIN. Meloxicam Meloxicam Yes LEO 1 TAKE 1 Univers 15 MG Oral 15 MG Oral 8-08 [place] TABLET ity of Tablet Tablet 00:00: M.D. DAILY [place] 00 NEEDED. Physici ans Cyclobenzap Cyclobenzap Yes LEO Q0.3333D TAKE 1 Univers rine HCl - rine HCl - 4-16 [place] TABLET BY ity of 10 MG Oral 10 MG Oral 00:00: M.D. MOUTH [place] Tablet Tablet 00 THREE Physici TIMES A ans DAY NEEDED Acetaminoph Acetaminoph Yes LEO TAKE 1 Univers en-Codeine en-Codeine 4-16 [place] TABLET ity of 300-60 MG 300-60 MG 00:00: M.D. EVERY 6 TO [place] Oral Tablet Oral Tablet 00 8 HOURS Physici NEEDED FOR ans PAIN. Pentazocine Pentazocine Yes LEO TAKE 1 Univers -Naloxone -Naloxone 3-19 [place] TABLET ity of HCl - HCl - 00:00: M.D. EVERY 4 TO [place] 50-0.5 MG 50-0.5 MG 00 6 HOURS Physici Oral Tablet Oral Tablet NEEDED FOR ans PAIN. Diclofenac Diclofenac Yes LEO QD APPLY TO Univers Sodium 1 % Sodium 1 % 3-19 [place] LOWER ity of Transdermal Transdermal 00:00: M.D. EXTREMITIE [place] Gel Gel 00 S, 4 GM OF Physici GEL TO ans AFFECTED AREA 4 TIMES DAILY. DO NOT APPLY MORE THAN 16 GM DAILY TO ANY ONE AFFECTED JOINT. Alendronate Alendronate Yes U nivers Sodium 70 Sodium 70 ity o f MG Oral MG Oral [place] Tablet Tablet Physici ans Plavix 75 Plavix 75 Yes Unive rs MG Oral MG Oral ity of Tablet Tablet [place] Physici ans Levo-T 125 Levo-T 125 Yes Uni vers MCG Oral MCG Oral ity of Tablet Tablet [place] Physici ans Xanax 0.5 Xanax 0.5 Yes Unive rs MG Oral MG Oral ity of Tablet Tablet [place] Physici ans Linzess 145 Linzess 145 Yes U nivers MCG Oral MCG Oral ity of Capsule Capsule [place] [facility]ici ans Symbicort Symbicort Yes Unive rs 80-4.5 80-4.5 ity of MCG/ACT MCG/ACT [place] Inhalation Inhalation Phy sici Aerosol Aerosol ans Vimovo Vimovo Yes Univers 500-20 MG 500-20 MG ity o f Oral Tablet Oral Tablet [place] Delayed Delayed Physici Release Release ans Levemir Levemir Yes Univers SOLN SOLN ity of [place] [facility] ans Vital Signs Vital Name Observation Time Observation Value Comments Source Height 2018-02-06 14:07:00 64 [in_us] Universi ty [facility] Physicians Weight 2018-02-06 14:07:00 269 [facility] Body Mass Index 2018-02-06 14:07:00 46.17 kg/m2 [facility] Calculated Physicians Height 2018-01-11 10:38:00 64 [in_us] Universi ty [facility] Physicians Weight 2018-01-11 10:38:00 269 [lb_av] [facility] Phys[facility] Body Mass Index 2018-01-11 10:38:00 46.17 kg/m2 [facility] Calculated Physicians Height 2017-12-10 10:53:00 64 [in_us] Universi ty [facility] Physicians Weight 2017-12-10 10:53:00 269 [lb_av] [facility] ty [facility] Physicians Body Mass Index 2017-12-10 10:53:00 46.17 kg/m2 [facility] Calculated Physicians Height 2017-10-15 16:02:00 64 [in_us] Universi ty [facility] Physicians Weight 2017-10-15 16:02:00 269 [lb_av] [facility] Physicians Body Mass Index 2017-10-15 16:02:00 46.17 kg/m2 [facility] Calculated Physicians Height 2017-09-13 16:14:00 64 [in_us] [facility] Weight 2017-09-13 16:14:00 269 [lb_av] [facility] Physicians Body Mass Index 2017-09-13 16:14:00 46.17 kg/m2 [facility] Calculated Physicians Procedures Procedure Date / Time Performed Performing Clinician Sourc e Post Op Promis 29 2019-04-11 00:00:00 [facility] Survey Physicians [U] XR KNEE 1 OR 2 2018-05-15 00:00:00 [facility] BILATERAL Physicians [U] XRAY SHOULDER MIN 2018-01-11 00:00:00 [facility] 2 [facility] RIGHT [id number] Physicians [U] XRAY KNEE 1 OR 2 2017-09-13 00:00:00 [facility] RIGHT [id number] Physicians History of no history University [facility] of surgery Physicians Encounters Start End Encounter Admission Attending Care Care Encounter Source Date/Time Date/Time Type Type Clinicians Facility Department ID 2019-07-14 2019-07-14 [facility] [id number] Univers 13:25:00 13:25:00 t; Tamir MENDEZ [place], [place] Tai MENDEZ M.D. ans 2019-05-27 2019-05-27 AppointTAMIKA [facility] [id number] Univers 10:50:00 10:50:00 t; [facility] ans 2019-05-12 2019-05-12 [facility] [id number] Univers 15:05:00 15:05:00 t; Tamir MENDEZ - [place], [place] Tai MENDEZ M.D. ans 2019-05-12 2019-05-12 AppointTAMIKA Donovan [facility] [id number] Univers 13:50:00 13:50:00 t; Tamir MENDEZ it y of [place], [place] Tai MENDEZ M.D. ans 2019-04-14 2019-04-14 Appointmen [facility]A [facility] [id number] Univers 14:10:00 14:10:00 t; Tamir MENDEZ - [facility] [place] of [facility] Tai MENDEZ M.D. ans 2019-04-07 2019-04-09 Outpatient [place], [id number] Mem[facility] 08:19:56 17:00:00 [facility] [place] [facility] d 2019-04-07 2019-04-07 Appointmen [facility]A [facility] [id number] Univers 08:00:00 08:00:00 t; Tamir MENDEZ [place], [place] Tai MENDEZ M.D. ans 2019-03-13 2019-03-13 AppointTAMIKA [facility] [id number] Univers 15:30:00 15:30:00 t; Tamir MENDEZ [place], [place] Tai MENDEZ M.D. ans 2019-01-20 2019-01-20 AppointTAMIKA [facility] [id number] Univers 15:55:00 15:55:00 t; Tamir MENDEZ - [place] BULL [facility] Tai MENDEZ M.D. ans 2019-01-10 2019-01-10 Outpatient [facility] [id number] [facility] 11:02:00 11:02:[address] [facility] NAEEM Godinez PA 2018-12-11 2018-12-11 Appointmen [facility]A [facility] [id number] Univers 14:45:00 14:45:00 t; Tamir MENDEZ [place], [place] Tai MENDEZ M.D. ans 2018-10-17 2018-10-17 Outpatient [facility] [id number] [place] 16:59:00 16:59:[address] [facility], NAEEM Godinez PA 2018-10-01 2018-10-01 Outpatient [facility] [id number] [place] 14:45:00 14:45:[address] [facility], Ca re s, PA PA Associa artemio, PA 2018-09-24 2018-09-24 Outpatient [facility] [id number] [place] 10:00:00 10:00:[address] [facility], Ca re s, PA PA Associa artemio, PA 2018-07-19 2018-07-19 Outpatient [facility] [id number] [place] 10:15:00 10:15:[address] [facility], Ca re s, PA PA Associa artemio, PA 2018-07-11 2018-07-11 Outpatient [facility] [id number] [place] 15:30:00 15:30:[address] [facility], Ca re s, PA PA Associa artemio, PA 2018-05-20 2018-05-20 Outpatient [facility] [id number] [place] 10:30:00 10:30:[address] [facility], Ca re s, PA PA Associa artemio, PA 2018-05-15 2018-05-15 Appointmen [place], [facility] UTP [id number] [facility] 13:55:00 13:55:00 t; Tamir MENDEZ Orthopedic ity of [place], Surgery - Andrés as Papo MENDEZ M.D. ans 2018-04-24 2018-04-24 Outpatient [facility] [id number] [place] 11:43:00 11:43:[address] [facility] Ca re s, PA PA Associa artemio, PA 2018-04-11 2018-04-11 Outpatient [facility] [id number] [place] 15:00:00 15:00:[address] [facility] Ca re s, PA PA Associa artemio, PA 2018-03-19 2018-03-19 Appointmen TAMIKA BULL [facility] [id number] Univers 14:40:00 14:40:00 t; Tamir MENDEZ Orthopedic ity of [place], Surgery - Andrés as Papo MENDEZ M.D. ans 2018-02-20 2018-02-20 Outpatient [facility] [id number] [place] 16:00:00 16:00:[address] [facility], Ca re s, PA PA Associa artemio, PA 2018-02-06 2018-02-06 Outpatient [facility] [id number] [place] 15:30:00 15:30:[address] [facility], Ca re s, PA PA Associa artemio, PA 2018-02-06 2018-02-06 Appointmen [place], [facility]TP [id number] Univers 14:10:00 14:10:00 t; Tamir MENDEZ Orthopedic [place] of [place], Surgery - Andrés as Papo MENDEZ M.D. ans 2018-01-24 2018-01-24 Outpatient [facility] [id number] [facility] 14:30:00 14:30:[address] [facility], Ca re s, PA PA Associa artemio, PA 2018-01-11 2018-01-11 Appointmajor BULL, UTP UTP [id number] Univers 10:50:00 10:50:00 t; Tamir MENDEZ Orthopedic ity of [place], Surgery - Andrés as Papo MENDEZ M.D. ans 2018-01-10 2018-01-10 Outpatient [facility] [id number] [place] 14:30:00 14:30:[address] [facility] Ca re s, PA PA Associa artemio, PA 2017-12-27 2017-12-27 Outpatient [facility] [id number] [place] 14:30:00 14:30:[address] [facility] Ca re s, PA PA Associa artemio, PA 2017-12-14 2017-12-14 Outpatient [facility] [id number] [place] 11:00:00 11:00:[address] [facility], Ca re s, PA PA Associa artemio, PA 2017-12-13 2017-12-13 Outpatient [facility] [id number] [place] 15:45:00 15:45:[address] [facility], Ca re s, PA PA Associa artemio, PA 2017-12-10 2017-12-10 Appointmajor BULL, [facility]TP [id number] Univers 15:00:00 15:00:00 t; Tamir MENDEZ Orthopedic ity of [place], Surgery - Andrés as Tomas MENDEZ M.D. ans 2017-12-06 2017-12-06 Outpatient [facility] [id number] [place] 15:15:00 15:15:[address] [facility], Ca re s, PA PA Associa artemio, PA 2017-11-29 2017-11-29 Outpatient [facility] [id number] [place] 15:30:00 15:30:[address] [facility], Ca re s, PA PA Associa artemio, PA 2017-11-21 2017-11-21 Outpatient [facility] [id number] [place] 15:00:00 15:00:[address] [facility] Ca re s, PA PA Associa artemio, PA 2017-11-05 2017-11-05 Appointmajor BULL, [facility]TP [id number] Univers 16:10:00 16:10:00 t; Tamir MENDEZ Orthopedic ity of [place], Surgery - Andrés as Papo MENDEZ M.D. ans 2017-10-16 2017-10-16 Outpatient [facility] [id number] [facility] 10:45:00 10:45:[address] [facility] Car e s PA PA Associa artemio, PA 2017-10-15 2017-10-15 Appointmen [place], TAMIKA UTP [id number] Univers 15:45:00 15:45:00 t; Tamir MENDEZ Orthopedic ity of [place], Surgery - Andrés as Papo MENDEZ M.D. ans 2017-09-24 2017-09-24 Outpatient [facility] [id number] [facility] 13:30:00 13:30:[address] [facility] Car e s PA PA Associa artemio, PA 2017-09-17 2017-09-17 AppointTAMIKA Donovan [facility] [id number] Univers 15:45:00 15:45:00 t; Tamir MENDEZ Orthopedic ity of [place], Surgery - Andrés as Papo MENDEZ M.D. ans 2017-09-13 2017-09-13 AppointTAMIKA Donovan [facility] [id number] Univers 15:20:00 15:20:00 t; Tamir MENDEZ Orthopedic ity of [place], Surgery - Andrés as Papo MENDEZ M.D. ans 2017-09-10 2017-09-10 Outpatient [facility] [id number] [place] 13:45:00 13:45:[address] [facility] Car e s PA PA Associa artemio, PA 2017-08-17 2017-08-17 Outpatient [facility] [id number] [place] 09:30:00 09:30:[address] [facility] Car e s PA PA Associa artemio, PA 2017-08-15 2017-08-15 Outpatient [facility] [id number] [place] 13:31:00 13:31:[address] [facility] Car e s PA PA Associa artemio, PA 2017-08-14 2017-08-14 Outpatient [facility] [id number] [place] 14:22:00 14:22:[address] [facility] Car e s PA PA Associa artemio, PA 2017-07-19 2017-07-19 Outpatient [facility] [id number] [place] 15:10:00 15:10:[address] [facility] Car e s PA PA Associa artemio, PA 2017-07-05 2017-07-05 Outpatient [facility] [id number] [place] 10:45:00 10:45:[address] [facility] Car e s PA PA Associa artemio, PA 2017-06-19 2017-06-19 Outpatient [facility] [id number] [place] 17:01:00 17:01:[address] [facility] Car e s PA PA Associa artemio, PA 2017-06-06 2017-06-06 Outpatient [facility] [id number] [place] 11:00:00 11:00:[address] [facility] Car e s PA PA Associa artemio, PA 2017-05-30 2017-05-30 Outpatient [facility] [id number] [place] 10:53:00 10:53:[address] [facility] Car e s PA PA Associa artemio, PA 2017-05-17 2017-05-17 Outpatient [place], [id number] [facility] 08:07:10 11:54:00 Philip English [facility] Alysonoo ramin 2017-05-11 2017-05-11 Outpatient [facility] [id number] [place] 09:45:00 09:45:[address] [facility] Car e s PA PA Associa artemio, PA 2017-05-08 2017-05-08 Outpatient [facility] [id number] [place] 08:40:00 08:40:[address] [facility] Car e s PA PA Associa artemio, PA 2017-05-03 2017-05-03 Outpatient [facility] [id number] [place] 15:15:00 15:15:[address] [facility] Car e s PA PA Associa artemio, PA 2017-04-26 2017-04-26 Outpatient [facility] [id number] [place] 09:45:00 09:45:[address] [facility] Car e s PA PA Associa artemio, PA 2017-02-14 2017-02-14 Outpatient [facility] [id number] [place] 15:15:00 15:15:[address] [facility] Car e s PA PA Associa artemio, PA 2017-02-06 2017-02-06 Outpatient [facility] [id number] [place] 14:54:00 14:54:[address] [facility] Car e s PA PA Associa artemio, PA 2017-02-06 2017-02-06 Outpatient [facility] [id number] [place] 14:47:00 14:47:[address] [facility] Car e s PA PA Associa artemio, PA 2017-01-31 2017-01-31 Outpatient [facility] [id number] [place] 10:45:00 10:45:[address] [facility] Car e s PA PA Associa artemio, PA 2017-01-30 2017-01-30 Outpatient [facility] [id number] [place] 09:37:00 09:37:[address] [facility] Car e s PA PA Associa artemio, PA 2016-11-30 2016-11-30 Outpatient [facility] [id number] [place] 09:15:00 09:15:[address] [facility] Car e s PA PA Associa artemio, PA 2016-09-15 2016-09-15 Outpatient [facility] [id number] [place] 09:30:00 09:30:[address] [facility] Car e s PA PA Associa artemio, PA 2016-08-29 2016-08-29 Outpatient [facility] [id number] [place] 11:29:00 11:29:[address] [facility], Ca re s, PA PA Associa artemio, PA 2016-08-18 2016-08-18 Outpatient [facility] [id number] [place] 10:41:00 10:41:[address] [facility], Ca re s, PA PA Associa artemio, PA 2016-08-16 2016-08-16 Outpatient [facility] [id number] [place] 08:29:00 08:29:[address] [facility], Ca re s, PA PA Associa artemio, PA 2016-08-11 2016-08-11 Outpatient [facility] [id number] [place] 10:39:00 10:39:[address] [facility], Ca re s, PA PA Associa artemio, PA 2016-07-19 2016-07-19 Outpatient [facility] [id number] [place] 10:07:00 10:07:[address] [facility], Ca re s, PA PA Associa artemio, PA 2016-06-22 2016-06-22 Outpatient [facility] [id number] [place] 11:32:00 11:32:[address] [facility], Ca re s, PA PA Associa artemio, PA 2016-06-01 2016-06-01 Outpatient [facility] [id number] [place] 14:45:00 14:45:[address] [facility], Ca re s, PA PA Associa artemio, PA 2016-04-20 2016-04-20 Outpatient [facility] [id number] [place] 14:30:00 14:30:[address] [facility], Ca re s, PA PA Associa artemio, PA 2016-03-21 2016-03-21 Outpatient [facility] [id number] [place] 14:30:00 14:30:[address] [facility], Ca re s, PA PA Associa artemio, PA 2016-02-09 2016-02-09 Outpatient [facility] [id number] [place] 08:45:00 08:45:[address] [facility], Ca re s, PA PA Associa artemio, PA 2016-02-02 2016-02-02 Outpatient [facility] [id number] [place] 11:04:00 11:04:[address] [facility], Ca re s, PA PA Associa artemio, PA 2016-01-10 2016-01-10 Outpatient [facility] [id number] [place] 09:18:00 09:18:[address] [facility], Ca re s, PA PA Associa artemio, PA 2016-01-07 2016-01-07 Outpatient [facility] [id number] [place] 09:39:00 09:39:[address] [facility], Ca re s, PA PA Associa artemio, PA 2015-10-27 2015-10-27 Outpatient [facility] [id number] [place] 15:45:00 15:45:[address] [facility], Ca re s, PA PA Associa artemio, PA 2015-08-27 2015-08-27 Outpatient [facility] [id number] [place] 08:12:00 08:12:[address] [facility], Ca re s, PA PA Associa artemio, PA 2015-07-05 2015-07-05 Outpatient [facility] [id number] [place] 11:15:00 11:15:[address] [facility], Ca re s, PA PA Associa artemio, PA 2015-06-21 2015-06-21 Outpatient [facility] [id number] [place] 11:24:00 11:24:[address] [facility], Ca re s, PA PA Associa artemio, PA 2015-06-04 2015-06-04 Outpatient [facility] [id number] [place] 10:45:00 10:45:[address] [facility] 2015-06-04 2015-06-04 Outpatient [facility] [id number] [place] 10:45:00 10:45:[address] [facility] 2015-02-15 2015-02-15 Outpatient [facility] [id number] [place] 14:30:00 14:30:[address] [facility], PA 2015-01-19 2015-01-19 Outpatient [facility] [id number] [place] 15:37:00 15:37:[address] [facility], PA 2015-01-15 2015-01-15 Outpatient [facility] [id number] [place] 11:00:00 11:00:[address] [facility], PA 2014-09-28 2014-09-28 Outpatient [facility] [id number] [place] 14:00:00 14:00:[address] [facility], PA 2014-07-24 2014-07-24 Outpatient [facility] [id number] [place] 12:45:00 12:45:[address] [facility], PA 2014-07-17 2014-07-17 Outpatient [facility] [id number] [place] 11:30:00 11:30:[address] [facility], PA 2014-07-13 2014-07-13 Outpatient [facility] [id number] [place] 16:14:00 16:14:[address] [facility] PA [facility], PA 2014-06-08 2014-06-08 Outpatient [facility] [id number] [place] 16:00:00 16:00:[address] [facility], PA 2014-04-16 2014-04-16 Outpatient [facility] [id number] [place] 09:15:00 09:15:[address] [facility], PA 2014-03-18 2014-03-18 Outpatient [facility] [id number] [place] 15:16:00 15:16:[address] [facility] PA PA [facility], PA 2014-03-16 2014-03-16 Outpatient [facility] [id number] [place] 10:15:00 10:15:[address] [facility] PA PA [facility], PA 2014-01-08 2014-01-08 Outpatient [facility] [id number] [place] 16:42:00 16:42:[address] [facility], PA 2014-01-08 2014-01-08 Outpatient [facility] [id number] [place] 14:59:00 14:59:[address] [facility] PA PA [facility], PA 2013-12-29 2013-12-29 Outpatient [facility] [id number] [place] 15:03:00 15:03:[address] [facility], PA PA [facility], PA 2013-12-22 2013-12-22 Outpatient [facility] [id number] [place] 16:00:00 16:00:[address] [facility], PA PA [facility], PA 2013-12-05 2013-12-05 Outpatient [facility] [id number] [place] 12:00:00 12:00:[address] [facility], PA PA [facility], PA 2013-12-01 2013-12-01 Outpatient [facility] [id number] [place] 11:02:00 11:02:[address] [facility], PA PA [facility], PA 2013-11-28 2013-11-28 Outpatient [facility] [id number] [place] 10:00:00 10:00:[address] [facility], PA PA [facility], PA 2013-10-15 2013-10-15 Outpatient [facility] [id number] [place] 15:30:00 15:30:[address] [facility], PA PA [facility], PA 2013-10-01 2013-10-01 Outpatient [facility] [id number] [facility] 14:45:00 14:45:[address] [facility], PA PA [facility], PA 2013-09-25 2013-09-25 Outpatient [facility] [id number] [place] 06:26:43 09:30:00 [facility] 2013-09-24 2013-09-24 Outpatient [facility] [id number] [facility] 12:23:00 12:23:[address] [facility], PA PA [facility] art[facility], PA Results Test Description Test Time Test Comments Results Result Sour e Comments [U] XRAY KNEE 1 2019-07-02 Images acquired, not [facility] [place] 2 VWS LEFT 3 reported on this [place] [id number] 13:10:00 accession number. Tai ans [U] XRAY KNEE 1 2019-05-03 Images acquired, [place] [facility] [place] 2 VWS LEFT 6 reported on this [place] [id number] 10:53:00 accession number. Physici ans SURGICAL 2019-04-01 SPECIMENS 5 10:42:00 RUN DATE: 04/15/19 [facility] PAGE 1 RUN TIME: 1042 Specimen Inquiry RUN USER: INTERFACE PATIENT: CANDACE DUPREE LOC: [id number].[id number] U #: [id number] AGE/SX: 63/F ROOM: RE04/08/19REG DR: Leo Bull : 54 BED: DIS: STATUS: REG REF TLOC: SPEC #: [id number] RECD: 04/07/19 STATUS: GLENNA REKendra #: [id number] SATINDER: 04/07/19-[address]: Leo Bull MD ENTERED: 04/08/19 SP TYPE: SURG OTHR DR: ORDERED: PATHGM4, DECAL, PATH SPEC, H E STAIN TISSUES: A. BONE NOT FRACTURE - Left knee bone CLINICAL HISTORY Diagnosis/Clinical Data: Left knee osteoarthritis Operative Procedure: Left total knee arthroplasty FINAL DIAGNOSIS Left knee, Bone, total arthroplasty: Degenerative joint disease Electronically signed by: Seng Leung MD GROSS DESCRIPTION The laboratory receives, in a partially formalin-filled container labeled "left knee bone", multiple pieces of yellow-rueda firm bone and yellow-rueda fibrofatty tissue measuring 8.5 x 7.5 x 4.5 cm in aggregate. The articular surface ranges from yellow-rueda and smooth and glistening to rueda-brown and granular; there are foci of pale, rueda-pink eburnation. Sections show yellow-rueda to firm cut-surfaces with no area or softening. Non Destructive Evaluation Manager decalcified sections are submitted by the PA in cassette A1. LS 04/08/2019 10:00 AM MICROSCOPIC DESCRIPTION The histologic section includes the articular surface. Prominent eburnation is present. 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 Underlying intratrabecular fibrosis is noted. Areas of new cartilage and new bone formation are present. Some the intratrabecular bone shows hematopoietic elements. There is no malignancy.--------- --- Signed SIGNATURE ON FILE Jason Leung 04/15/19 1042 END OF REPORT [U] XR KNEE 1 [place] 2018-05-02 Images acquired, not [facility] 2 VWS BILATERAL 4 reported on this [place] 13:50:00 accession number. Physici ans [U] XRAY HIPS Images acquired, not [facility] of BILATERAL MIN 2 8 reported on this [place] VWS AND AP 14:08:00 accession number. Physici ans PELVIS [id number] [U] XRAY 2017-12-30 Images acquired, not Univ ersity of SHOULDER MIN 2 3 [place] [id number] 10:43:00 accession number. Ph ysicians [U] XRAY 2017-12-30 Images acquired, not Univ ersity of SHOULDER MIN 2 3 reported [place] this [place] VWS LEFT [id number] 10:42:00 accession number. Phy sicians [U] XRAY KNEE 1 2017-08-30 Images acquired, not [facility] [place] 2 VWS LEFT 5 reported on this [place] [id number] 16:26:00 accession number. Physici ans Tobacco Use Screening 2017-09-13 15:20:00 Test Item Value Reference Range Interpretation Comme nts Completed (test code = Completed) DONE [facility]
--- NOTE | 2019-11-19 16:42 | RAD REPORT ---
EXAM DESCRIPTION: Rey Single View11/19/2019 4:35 pm CLINICAL HISTORY: sob COMPARISON: none FINDINGS: The lungs appear clear of acute infiltrate. The heart is normal size IMPRESSION: No acute abnormalities displayed
--- NOTE | 2019-11-19 17:06 | RAD REPORT ---
EXAM DESCRIPTION: CT - Head Brain Wo Cont - 11/19/2019 4:51 pm CLINICAL HISTORY: Alteration of awareness/confusion COMPARISON: None TECHNIQUE: Computed axial tomography of the head was obtained. IV contrast was not requested. All CT scans are performed using dose optimization technique as appropriate and may include automated exposure control or mA/KV adjustment according to patient size. FINDINGS: An intracranial bleed is not seen . The ventricles are normal in caliber. No extra-axial fluid collection is noted. Moderate to marked low-density areas within periventricular, deep and subcortical white matter. Fluid within the sinuses/ mastoids is not seen. IMPRESSION: Moderate to marked low-density areas within periventricular, deep and subcortical white matter may be secondary to ischemic changes secondary to small vessel disease. A demyelinating proces s can also result in this appearance
[2019-11-19 17:48] LABS: Absolute Lymphocytes (CBC) 1.4 K/uL (0.7-4.9); Basophils % 0.4 % (0-1.3); Hematocrit 39.1 % (36.0-45.0); Lymphocytes % 11.1 % (15.3-44.8); RBC Red Blood Cell Count 4.22 M/uL (3.86-4.86)
[2019-11-19 17:51] LABS: Protime INR 1.06
[2019-11-19 18:03] LABS: ALT/SGPT 28 U/L (12-78); AST/SGOT 21 U/L (15-37); Albumin 3.2 g/dL (3.4-5.0); Alkaline Phosphatase 88 U/L (45-117); BUN Blood Urea Nitrogen 17 mg/dL (7-18); Bicarbonate 30 mmol/L (21-32); Bilirubin Direct < 0.1 mg/dL (0-0.2); Bilirubin Total 0.5 mg/dL (0.2-1.0); CKMB Creatine Kinase MB 1.9 ng/mL (0.3-3.6); Creatine Phosphokinase 30 U/L (26-192); Glucose Level 126 mg/dL (74-106); Lipase 75 U/L (73-393); Potassium 4.7 mmol/L (3.5-5.1); Protein, Total 7.3 g/dL (6.4-8.2); Sodium Level 140 mmol/L (136-145); Troponin (Emerg Dept Use Only) < 0.02 ng/mL (0.0-0.045)
[2019-11-19 18:17] LABS: Barbiturates NEGATIVE (NEGATIVE); Benzodiazepines NEGATIVE (NEGATIVE); Cocaine NEGATIVE (NEGATIVE); METHAMPHETAM NEGATIVE (NEGATIVE); Methadone NEGATIVE (NEGATIVE); Opiates NEGATIVE (NEGATIVE); Phencyclidine NEGATIVE (NEGATIVE); THC Cannibis NEGATIVE (NEGATIVE)
[2019-11-19 18:18] LABS: Urine Blood NEGATIVE (NEG); Urine Glucose NEGATIVE (NEG); Urine Protein TRACE (NEG); Urine pH 7.5 (5.0-7.0)
[2019-11-19 19:27] LABS: Urine Bacteria LOADED /HPF (<20); Urine Culture Reflex Order REFLEXED; Urine RBC <5 /HPF (NONE SEEN)
--- NOTE | 2019-11-19 19:32 | EDPHYS ---
Physician Documentation [facility] Name: Guerline Castellanos Age: 64 yrs Sex: Female : 1955 Arrival Date: 11/19/2019 Time: 15:31 Bed 3 Private MD: ED Physician Camron Felix HPI: 11/18 19:37 This 64 yrs old Female presents to ER via EMS with complaints of fever/AMS. jr8 19:37 The patient presents with confusion. Onset: The symptoms/episode began/occurred jr8 acutely, today. Possible causes: unknown. Associated signs and symptoms: Pertinent positives: fever. Current symptoms: In the emergency department the patient's symptoms are unchanged from the initial presentation. Patient's baseline: Neuro: alert and fully oriented, Motor: no deficits, Ambulation: walks without assistance, Speech: normal. The patient has not experienced similar symptoms in the past. The patient has not recently seen a physician. Patient stated that she feels confused and is slow to respond. EMS was called after family noticed this. Running low grade fever here. Has had headache and nausea as well. - Immunization history:: Adult Immunizations unknown. - Social history:: Smoking status: unknown. ROS: 19:37 Eyes: Negative for injury, pain, redness, and discharge, ENT: Negative for injury, jr8 pain, and discharge, Neck: Negative for injury, pain, and swelling, Cardiovascular: Negative for chest pain, palpitations, and edema, Respiratory: Negative for shortness of breath, cough, wheezing, and pleuritic chest pain, Back: Negative for injury and pain, MS/Extremity: Negative for injury and deformity, Skin: Negative for injury, rash, and discoloration. 19:37 Constitutional: Positive for fever, malaise. 19:37 Abdomen/GI: Positive for nausea, Negative for abdominal pain, vomiting, diarrhea. 19:37 Neuro: Positive for altered mental status, headache. Exam: 19:37 Eyes: Pupils equal round and reactive to light, extra-ocular motions intact. Lids and jr8 lashes normal. Conjunctiva and sclera are non-icteric and not injected. Cornea within normal limits. Periorbital areas with no swelling, redness, or edema. ENT: Nares patent. No nasal discharge, no septal abnormalities noted. Tympanic membranes are normal and external auditory canals are clear. Oropharynx with no redness, swelling, or masses, exudates, or evidence of obstruction, uvula midline. Mucous membranes moist. Neck: Trachea midline, no thyromegaly or masses palpated, and no cervical lymphadenopathy. Supple, full range of motion without nuchal rigidity, or vertebral point tenderness. No Meningismus. Cardiovascular: Regular rate and rhythm with a normal S1 and S2. No gallops, murmurs, or rubs. Normal PMI, no JVD. No pulse deficits. Respiratory: Lungs have equal breath sounds bilaterally, clear to auscultation and percussion. No rales, rhonchi or wheezes noted. No increased work of breathing, no retractions or nasal flaring. Abdomen/GI: Soft, non-tender, with normal bowel sounds. No distension or tympany. No guarding or rebound. No evidence of tenderness throughout. Back: No spinal tenderness. No costovertebral tenderness. Full range of motion. Skin: Warm, dry with normal turgor. Normal color with no rashes, no lesions, and no evidence of cellulitis. MS/ Extremity: Pulses equal, no cyanosis. Neurovascular intact. Full, normal range of motion. 19:37 ECG was reviewed by the Attending Physician. 19:37 Neuro: Orientation: to person, place \T\ time. Mentation: able to follow commands, slow to respond, Memory: immediate memory is intact, remote memory is intact. recent memory is intact, Cranial nerves: CN I not tested, CN II- XII are normal as tested, visual mansfield are intact. extraocular movements are intact, Facial palsy and sensory deficits are absent. Speech is clear and appropriate. Tongue strength is normal, Motor: moves all fours, Sensation: no obvious gross deficits, Gait: not tested. seizure activity, is not displayed by the patient, Abnormal movements: there are no abnormal movements. Vital Signs: 15:32 BP 127 / 81; Pulse 84; Resp 18; Temp 99.6(O); Pulse Ox 91% on R/A; Pain 0/10; ph 16:30 BP 126 / 78; Pulse 64; Resp 20; Pulse Ox 93% on R/A; ph 17:58 BP 119 / 88; Pulse 62; Resp 18; Pulse Ox 92% on R/A; ph 19:12 BP 131 / 72; Pulse 66; Resp 18; Pulse Ox 92% on R/A; ph 20:35 BP 122 / 68; Pulse 65; Resp 16; Pulse Ox 92% on 2 lpm NC; ea 21:30 BP 162 / 93; Pulse 81; Resp 18; Pulse Ox 100% ; ea 22:07 BP 142 / 87; Pulse 77; Resp 18; Pulse Ox 100% on R/A; ea 22:30 BP 125 / 70; Pulse 66; Resp 18; Temp 98.9; Pulse Ox 95% on R/A; ea 23:00 BP 119 / 68; Pulse 64; Resp 18; Pulse Ox 95% on R/A; ea MDM: 15:31 Patient medically screened. 8 19:44 Data reviewed: vital signs, nurses notes, lab test result(s), EKG, radiologic studies, [facility] CT scan, plain films. Data interpreted: Pulse oximetry: on room air is 92 %. Interpretation: acceptable. Counseling: I had a detailed discussion with the patient and/or guardian regarding: the historical points, exam findings, and any diagnostic results supporting the discharge/admit diagnosis, lab results, radiology results, the need for further work-up and treatment in the hospital. Physician consultation: Thee Gray MD was called at 19:45, was contacted at 19:45, regarding admission, to the telemetry unit. consult, patient's condition, and will see patient. 11/18 15:53 Order name: Ckmb; Complete Time: 18:13 11/18 15:53 Order name: Fibrinogen; Complete Time: 18:14 [facility] 11/18 15:53 Order name: C-Reactive Protein; Complete Time: 18:13 11/18 15:53 Order name: Basic Metabolic Panel; Complete Time: 18:13 11/18 15:53 Order name: Blood Culture Adult (2) [facility] 11/18 15:53 Order name: CBC with Diff; Complete Time: 18:13 [facility] 11/18 15:53 Order name: CPK; Complete Time: 18:13 11/18 15:53 Order name: Lactate; Complete Time: 18:13 [facility] 11/18 15:53 Order name: LFT's; Complete Time: 18:13 [facility] 11/18 15:53 Order name: Lipase; Complete Time: 18:13 jr11/18 15:53 Order name: Procalcitonin; Complete Time: 18:28 [facility] 11/18 15:53 Order name: Protime (+inr); Complete Time: 18:13 [facility] 11/18 15:53 Order name: Ptt, Activated; Complete Time: 18:13 [facility] 11/18 15:53 Order name: Troponin (emerg Dept Use Only); Complete Time: 18:13 [facility] 11/18 15:53 Order name: Urine Microscopic Only; Complete Time: 19:28 [facility] 11/18 15:53 Order name: Chest Single View XRAY; Complete Time: 17:00 [facility] 11/18 15:54 Order name: AMMONIA; Complete Time: 18:13 [facility] 11/18 15:54 Order name: UDS; Complete Time: 18:28 [facility] 11/18 15:54 Order name: CT Head Brain wo Cont; Complete Time: 17:17 [facility] 11/18 16:07 Order name: COVID-19 [facility] 11/18 17:30 Order name: Influenza Screen (a \T\ B); Complete Time: 18:28 [facility] 11/18 18:01 Order name: Urine Dipstick--Ancillary (enter results); Complete Time: 18:28 em1 11/18 19:28 Order name: Urine Culture EDNE 11/18 21:58 Order name: CBC with Automated Diff EDMS 11/18 21:58 Order name: CBC with Automated Diff EDMS 11/18 21:58 Order name: Comprehensive Metabolic Panel EDMS 11/18 21:58 Order name: Comprehensive Metabolic Panel EDMS 11/18 21:58 Order name: Brain Wo Cont EDMS 11/18 21:58 Order name: Brain Wo Cont EDMS 11/18 15:53 Order name: Cath; Complete Time: 17:57 [facility] 11/18 15:53 Order name: Accucheck; Complete Time: 17:57 [facility] 11/18 15:53 Order name: Cardiac monitoring; Complete Time: 16:37 [facility] 11/18 15:53 Order name: EKG - Nurse/Tech; Complete Time: 17:57 [facility] 11/18 15:53 Order name: IV Saline Lock - Large Bore; Complete Time: 17:57 [facility] 11/18 15:53 Order name: Labs collected and sent; Complete Time: 17:57 [facility] 11/18 15:53 Order name: O2 Per Protocol; Complete Time: 16:37 jr8 11/18 15:53 Order name: O2 Sat Monitoring; Complete Time: 16:37 jr8 11/18 15:53 Order name: Urine Dipstick-Ancillary (obtain specimen); Complete Time: 17:57 jr8 11/18 21:58 Order name: CONS Pharmacy Consult EDMS 11/18 21:58 Order name: Regular EDNE EC:37 Rate is 68 beats/min. Rhythm is regular, Normal Sinus Rhythm. Left axis deviation jr8 noted. AK interval is normal at 164 msec. QRS interval is prolonged at 140 msec. QT interval is prolonged at 487 msec. No Q waves. T waves are Inverted in leads II, III, aVF, V1, V2, V3, V4, V5. No ST changes noted. Clinical impression: RBBB with non specific t wave inversion . Interpreted by me. Reviewed by me. Administered Medications: 17:56 Drug: NS 0.9% 1000 ml Route: IV; Rate: 1000 ml; Site: right forearm; ph 19:17 Follow up: Response: No adverse reaction; IV Status: Completed infusion; IV Intake: ph 1000ml 19:48 Drug: Rocephin 2 grams Route: IV; Rate: calculated rate; Site: right antecubital; ea 22:31 Follow up: Response: No adverse reaction; IV Status: Completed infusion; IV Intake: 10mlea 20:08 Drug: Zofran (Ondansetron) 4 mg Route: IVP; Site: right forearm; ea 22:31 Follow up: Response: No adverse reaction ea Disposition: 11/19 09:11 Co-signature as Attending Physician, Camron Felix MD I agree with the assessment and kdr plan of care. Disposition: 11/19/19 19:31 Hospitalization ordered by Thee Gray for Inpatient Admission. Preliminary diagnosis are Other specified sepsis, Urinary tract infection, site not specified, Altered mental status, unspecified. - Bed requested for Telemetry/MedSurg (Inpatient). - Status is Inpatient Admission. ea - Condition is Fair. - Problem is new. - Symptoms have improved. Signatures: Dispatcher [employer] EDNE Zeenat Doty RN RN kl Rittger, Kevin, MD MD kdr Roszak, Josh, PA PA jr8 Carmen Arora RN RN Georgiana Gibson RN RN ea Corrections: (The following items were deleted from the chart) 11/18 22:02 19:31 Hospitalization Ordered by Thee Gray MD for Inpatient Admission. Preliminary kl diagnosis is Other specified sepsis; Urinary tract infection, site not specified; Altered mental status, unspecified. Bed requested for Telemetry/MedSurg (Inpatient). Status is Inpatient Admission. Condition is Fair. Problem is new. Symptoms have improved. jr8 23:09 22:02 11/19/2019 19:31 Hospitalization Ordered by Thee Gray MD for Inpatient ea Admission. Preliminary diagnosis is Other specified sepsis; Urinary tract infection, site not specified; Altered mental status, unspecified. Bed requested for Telemetry/MedSurg (Inpatient). Status is Inpatient Admission. Condition is Fair. Problem is new. Symptoms have improved. kl
--- NOTE | 2019-11-19 19:32 | ER ---
Nurse's Notes [facility] Name: Guerline Castellanos Age: 64 yrs Sex: Female : 1955 Arrival Date: 11/19/2019 Time: 15:31 Bed 3 Private MD: Diagnosis: Other specified sepsis;Urinary tract infection, site not specified;Altered mental status, unspecified Presentation: 11/18 15:32 Chief complaint: EMS states: Pt c/o confusion, fever and nausea, Spo2 88-90% RA upon EMS arrival, improved w/ 2L NC to 97%, also reports mild SOB, hx of COPD, 4 mg Zofran IVP given, temp 99.9. Coronavirus screen: Surgical mask placed on patient. Patient moved to private room, placed in contact and droplet isolation with eye protection until further assessment. Patient denies a cough. Patient reports shortness of breath or difficulty breathing. Patient reports a measured and/or subjective temperature greater than 100.4F. Patient denies travel on a cruise ship or to a country the [facility] currently lists as an affected area. Patient denies contact with known and/or suspected case of COVID-19. Ebola Screen: No symptoms or risks identified at this time. Initial Sepsis Screen: Does the patient meet any 2 criteria? Altered Mental Status. Does the patient have a suspected source of infection? No. Patient's initial sepsis screen is negative. Risk Assessment: Do you want to hurt yourself or someone else? Patient reports no desire to harm self or others. Onset of symptoms was November 19, 2019. 15:32 Method Of Arrival: EMS: [facility] 15:32 Acuity: ABIODUN 2 ph - Immunization history:: Adult Immunizations unknown. - Social history:: Smoking status: unknown. Screenin:39 Abuse screen: Denies threats or abuse. Denies injuries from another. Nutritional ph screening: No deficits noted. Tuberculosis screening: No symptoms or risk factors identified. Fall Risk No fall in past 12 months (0 pts). No secondary diagnosis (0 pts). IV access (20 points). Ambulatory Aid- None/Bed Rest/Nurse Assist (0 pts). Gait- Weak (10 pts.). Mental Status- Overestimates/Forgets Limitations (15 pts.). Total Cerrato Fall Scale indicates High Risk Score (45 or more points). Fall prevention measures have been instituted. Side Rails Up X 2 Placed Close to Nursing Station Frequent Obs/Assessments Occuring As available patient and family educated on Fall Prevention Program and Strategies. Assessment: 15:48 General: Appears in no apparent distress. comfortable, obese, Behavior is calm, ph cooperative, appropriate for age, Reports fever for 12-24 hours. Pain: Denies pain. Neuro: Level of Consciousness is awake, alert, obeys commands, Oriented to person, place, situation, Moves all extremities. Full function Speech is normal, Facial symmetry appears normal, Pupils are PERRLA, Reports headache weakness. Cardiovascular: Reports fatigue, lightheadedness, nausea, shortness of breath, Denies chest pain, Capillary refill < 3 seconds in bilateral fingers Patient's skin is warm and dry. Rhythm is sinus rhythm. Respiratory: Reports shortness of breath at rest cough that is non-productive, Airway is patent Respiratory effort is even, unlabored, Respiratory pattern is regular, symmetrical. GI: Reports diarrhea, nausea, Patient currently denies abdominal pain, vomiting. Derm: Skin is intact, Skin is pink, warm \T\ dry. Musculoskeletal: Circulation, motion, and sensation intact. Range of motion: intact in all extremities. 16:45 Reassessment: Patient appears in no apparent distress at this time. No changes from previously documented assessment. 17:59 Reassessment: Patient appears in no apparent distress at this time. Patient and/or ph family updated on plan of care and expected duration. Pain level reassessed. Patient is alert, oriented x 3, equal unlabored respirations, skin warm/dry/pink. Patient denies pain at this time. 19:14 Reassessment: Patient appears in no apparent distress at this time. Patient and/or ph family updated on plan of care and expected duration. Pain level reassessed. Patient is alert, oriented x 3, equal unlabored respirations, skin warm/dry/pink. 19:27 Reassessment: Son Agustín Fowler [phone]. ea 19:38 General: Appears in no apparent distress. comfortable, Behavior is appropriate for age. ea Pain: Denies pain. Neuro: Level of Consciousness is awake, alert, obeys commands, Oriented to person, place, situation, Speech is normal, Facial symmetry appears normal. Cardiovascular: Patient's skin is warm and dry. Rhythm is sinus rhythm. Respiratory: Airway is patent Respiratory effort is even, unlabored, Respiratory pattern is regular, symmetrical. Derm: Skin is pink, warm \T\ dry. 20:34 Reassessment: Patient and/or family updated on plan of care and expected duration. Pain ea level reassessed. Patient is alert, oriented x 3, equal unlabored respirations, skin warm/dry/pink. Patient states feeling better. 21:00 Reassessment: Patient and/or family updated on plan of care and expected duration. Pain ea level reassessed. Pt resting with eyes closed, respirations even and unlabored. Vital Signs: 15:32 BP 127 / 81; Pulse 84; Resp 18; Temp 99.6(O); Pulse Ox 91% on R/A; Pain 0/10; ph 16:30 BP 126 / 78; Pulse 64; Resp 20; Pulse Ox 93% on R/A; ph 17:58 BP 119 / 88; Pulse 62; Resp 18; Pulse Ox 92% on R/A; ph 19:12 BP 131 / 72; Pulse 66; Resp 18; Pulse Ox 92% on R/A; ph 20:35 BP 122 / 68; Pulse 65; Resp 16; Pulse Ox 92% on 2 lpm NC; ea 21:30 BP 162 / 93; Pulse 81; Resp 18; Pulse Ox 100% ; ea 22:07 BP 142 / 87; Pulse 77; Resp 18; Pulse Ox 100% on R/A; ea 22:30 BP 125 / 70; Pulse 66; Resp 18; Temp 98.9; Pulse Ox 95% on R/A; ea 23:00 BP 119 / 68; Pulse 64; Resp 18; Pulse Ox 95% on R/A; ea ED Course: 15:31 Patient arrived in ED. em1 15:31 Brandon Plaza PA is PHCP. jr8 15:31 Camron Felix MD is Attending Physician. jr8 15:31 Carmen Arora RN is Primary Nurse. ph 15:37 Triage completed. ph 15:39 Patient has correct armband on for positive identification. Placed in gown. Bed in low ph position. Call light in reach. Side rails up X2. acquisitions assistant on. Pulse ox on. NIBP on. Door closed. Noise minimized. Warm blanket given. 15:50 Arm band placed on Patient placed in an exam room, on a stretcher. ph 16:35 Chest Single View XRAY In Process Unspecified. EDMS 16:51 CT Head Brain wo Cont In Process Unspecified. EDMS 17:45 Straight cath inserted, using sterile technique, 16 Fr. Returned gene urine. Patient ph tolerated well. 18:00 No provider procedures requiring assistance completed. Maintain EMS IV. Dressing ph intact. Good blood return noted. Site clean \T\ dry. Gauge \T\ site: 20 RFA. 19:30 Thee Gray MD is Hospitalizing Provider. jr8 19:40 Patient admitted, IV remains in place. ea 21:03 Primary Nurse role handed off by Carmen Arora RN sg 22:06 Georgiana Gibson RN is Primary Nurse. ea Administered Medications: 17:56 Drug: NS 0.9% 1000 ml Route: IV; Rate: 1000 ml; Site: right forearm; ph 19:17 Follow up: Response: No adverse reaction; IV Status: Completed infusion; IV Intake: ph 1000ml 19:48 Drug: Rocephin 2 grams Route: IV; Rate: calculated rate; Site: right antecubital; ea 22:31 Follow up: Response: No adverse reaction; IV Status: Completed infusion; IV Intake: 10mlea 20:08 Drug: Zofran (Ondansetron) 4 mg Route: IVP; Site: right forearm; ea 22:31 Follow up: Response: No adverse reaction ea Intake: 19:17 IV: 1000ml; Total: 1000ml. ph 22:31 IV: 10ml; Total: 1010ml. ea Outcome: 19:31 Decision to Hospitalize by Provider. jr8 19:39 Instructed on the need for admit, Demonstrated understanding of instructions. ea 22:28 Condition: stable ea 23:01 Admitted to Med/surg accompanied by tech, room 415, Report called to Receiving nurse ea on fourth floor 23:09 Patient left the ED. ea Signatures: Dispatcher [employer] EDMS Alec Bernal, RN RN Bishop Rios em1 Brandon Plaza PA PA jr8 Carmen Arora, DESMOND RN Georgiana Gibson RN RN ea Corrections: (The following items were deleted from the chart) 15:39 15:32 Coronavirus screen: Patient denies a cough. Patient reports shortness of breath ph or difficulty breathing. Patient reports a measured and/or subjective temperature greater than 100.4F. Patient denies travel on a cruise ship or to a country the [facility] currently lists as an affected area. Patient denies contact with known and/or suspected case of COVID-19. ph
[2019-11-19] MEDS ORDERED: CEFTRIAXONE/SWI 1gm 2 GM/20 ML SYR ONE (19:50)
[2019-11-19] MEDS ORDERED: ONDANSETRON 4 MG/2 ML VIAL ONE (20:12)
[2019-11-19] MEDS ORDERED: MORPHINE 2 MG/ML SYR IV PRN (21:54)
[2019-11-19] MEDS ORDERED: ONDANSETRON 4 MG/2 ML VIAL IV PRN (21:54)
[2019-11-19 23:47] VITALS: BMI 43.0
--- NOTE | 2019-11-20 02:47 | P.HP ---
Certification for Inpatient Patient admitted to: Inpatient With expected LOS: >2 Midnights Patient will require the following post-hospital care: None Practitioner: I am a practitioner with admitting privileges, knowledge of patient current condition, hospital course, and medical plan of care. Services: Services provided to patient in accordance with Admission requirements found in Title 42 Section 412.3 of the Code of Federal Regulations Patient History Date of Service: 11/19/19 Reason for admission: Altered mental status; fever; UTI; toxic encephalopathy History of Present Illness: Patient is 64-year-old female came to the hospital with altered mentation. Patient has been feeling confused and has been really not been feeling like herself. In the emergency room when patient arrived patient had a fever as well as nausea but no vomiting. Patient oxygen saturations were about 88%. Patient was placed on 2 L of oxygen and sats went up 97%. Patient does have a history of COPD from prior tobacco use. Patient was given nebs as well. Patient will be admitted to the hospital for further treatment of urinary tract infection. Patient will be given IV hydration and IV antibiotics. Patient was also COVID- 19 tested. Results are pending at this time. Allergies Sulfa (Sulfonamide Antibiotics) Allergy (Verified 11/19/19 23:58) Shortness of breath sulfamethoxazole [From Bactrim] Allergy (Verified 11/19/19 23:58) Shortness of breath trimethoprim [From Bactrim] Allergy (Verified 11/19/19 23:58) Shortness of breath Home Medications: Clopidogrel Bisulfate [Plavix] 75 mg PO DAILY 11/20/19 Duloxetine HCl 2 tab PO DAILY 11/20/19 Omeprazole 20 mg PO DAILY 11/20/19 - Past Medical/Surgical History -: COPD Past Surgical History: Patient denies surgical history - Family History Father Family History: Reviewed- Non-Contributory - Social History Smoking Status: Former smoker CD- Drugs: No Caffeine use: No Review of Systems 10-point ROS is otherwise unremarkable Physical Examination - Vital Signs Temperature: 98.9 F Blood Pressure: 114/69 Pulse: 64 Respirations: 16 Pulse Ox (%): 95 - Physical Exam General: Alert, In no apparent distress, Oriented x3 HEENT: Atraumatic, PERRLA, Mucous membr. moist/pink, EOMI, Sclerae nonicteric Neck: Supple, 2+ carotid pulse no bruit, No LAD, Without JVD or thyroid abnormality Respiratory: Diminished, Expiratory wheezes Cardiovascular: Regular rate/rhythm, Normal S1 S2, Systolic murmur Gastrointestinal: Normal bowel sounds, Soft and benign, Non-distended, No tenderness Musculoskeletal: No clubbing, No swelling, No tenderness Integumentary: No rashes Neurological: Normal gait, Normal speech, Normal strength at 5/5 x4 extr, Normal tone, Sensation intact, Cranial nerves 3-12 intact, Normal affect Lymphatics: No axilla or inguinal lymphadenopathy - Studies Laboratory Data (last 24 hrs) 11/19/19 17:30: PT 12.5, INR 1.06, APTT 23.3 L 11/19/19 17:30: WBC 13.0 H, Hgb 12.7, Hct 39.1, Plt Count 218 11/19/19 17:30: Sodium 140, Potassium 4.7, BUN 17, Creatinine 0.82, Glucose 126 H, Total Bilirubin 0.5, AST 21, ALT 28, Alkaline Phosphatase 88, Lipase 75 Microbiology Data (last 24 hrs): 11/19/19 17:35 Nasopharnyx Influenza Type A Antigen Screen - Final 11/19/19 17:35 Nasopharnyx Influenza Type B Antigen Screen - Final Assessment & Plan - Problems (Diagnosis) (1) Altered mental status Current Visit: Yes Status: Acute (2) Urinary tract infection Current Visit: Yes Status: Acute (3) Toxic encephalopathy Current Visit: Yes Status: Acute (4) Leukocytosis Current Visit: Yes Status: Acute - Plan Plan: 1. IV hydration 2. IV antibiotics 3. Neurochecks q.4 hr x3 4. Monitor labs closely 5. Will start nebs as needed 6. Anti emetics 7. Monitor renal function closely 8. GI and DVT prophylaxis Discharge Plan: Home Plan to discharge in: 24 Hours - Advance Directives Does patient have a Living Will: No Does patient have a Durable POA for Healthcare: No - Code Status/Comfort Care Code Status Assessed: Yes Code Status: Full Code Critical Care: No Time Spent Managing PTS Care (In Minutes): 35
[2019-11-20] MEDS: NA CHLORIDE 0.9% 1,000 ML IV SCH ×3 (02:53→17:27)
[2019-11-20 04:05] LABS: Absolute Lymphocytes (CBC) 2.4 K/uL (0.7-4.9); Basophils % 0.2 % (0-1.3); Lymphocytes % 20.2 % (15.3-44.8); MPV 8.7 fL (7.6-11.3); RBC Red Blood Cell Count 3.71 M/uL (3.86-4.86)
[2019-11-20 04:07] LABS: Albumin 2.8 g/dL (3.4-5.0); Bilirubin Total 0.3 mg/dL (0.2-1.0); Potassium 3.8 mmol/L (3.5-5.1); Protein, Total 6.3 g/dL (6.4-8.2)
--- NOTE | 2019-11-20 08:04 | P.PN ---
Subjective Date of Service: 11/20/19 Subjective: No new changes, No C/O voiced, Improving Review of Systems 10-point ROS is otherwise unremarkable Physical Examination - Vital Signs Temperature: 98.9 F Blood Pressure: 114/69 Pulse: 64 Respirations: 16 Pulse Ox (%): 95 - Physical Exam General: Alert, In no apparent distress, Oriented x3 Respiratory: Clear to auscultation bilaterally, Normal air movement Cardiovascular: Regular rate/rhythm, Normal S1 S2 Gastrointestinal: Normal bowel sounds, Soft and benign, Non-distended, No tenderness, No rebound, No guarding Musculoskeletal: No clubbing, No swelling, No tenderness Neurological: Normal tone, Sensation intact, Cranial nerves 3-12 intact - Studies Laboratory Data (last 24 hrs) 11/19/19 17:30: PT 12.5, INR 1.06, APTT 23.3 L 11/19/19 17:30: WBC 13.0 H, Hgb 12.7, Hct 39.1, Plt Count 218 11/19/19 17:30: Sodium 140, Potassium 4.7, BUN 17, Creatinine 0.82, Glucose 126 H, Total Bilirubin 0.5, AST 21, ALT 28, Alkaline Phosphatase 88, Lipase 75 Microbiology Data (last 24 hrs): 11/19/19 16:07 Nasopharnyx Coronavirus COVID-19 PCR - Final 11/19/19 17:35 Nasopharnyx Influenza Type A Antigen Screen - Final 11/19/19 17:35 Nasopharnyx Influenza Type B Antigen Screen - Final Medications List Reviewed: Yes Assessment & Plan - Problems (Diagnosis) (1) Altered mental status Current Visit: Yes Status: Acute (2) Urinary tract infection Current Visit: Yes Status: Acute (3) Toxic encephalopathy Current Visit: Yes Status: Acute (4) Leukocytosis Current Visit: Yes Status: Acute - Plan Plan: Continue with current plan of care at this time 1. Continue with gentle IV hydration 2. Continue with IV antibiotics 3. Monitor neuro status closely 4. Monitor labs closely 5. Will start nebs as needed 6. Antiemetics 7. Monitor renal function closely 8. GI and DVT prophylaxis Discharge Plan: Home Plan to discharge in: 24 Hours - Advance Directives Does patient have a Living Will: No Does patient have a Durable POA for Healthcare: No - Code Status/Comfort Care Code Status: Full Code Critical Care: No Time Spent Managing PTS Care (In Minutes): 30
[2019-11-20] MEDS: CEFTRIAXONE/SWI 1gm 1 GM/10 ML SYR IV SCH ×2 (08:09→21:06)
[2019-11-20] MEDS: ASPIRIN EC 81 MG TAB PO SCH (08:10)
--- NOTE | 2019-11-20 10:08 | RAD REPORT ---
EXAM DESCRIPTION: MRI - Brain Wo Cont - 11/20/2019 9:43 am CLINICAL HISTORY: AMS; Acute infarct COMPARISON: Head Brain Wo Cont dated 11/19/2019 TECHNIQUE: Sagittal T1-weighted images were obtained along with axial PD, heavily T2-weighted and T2 -FLAIR images. Axial DWI and ADC mapping sequences were also obtained along with coronal heavily T2-w eighted images. FINDINGS: No intracranial hemorrhage, mass or acute infarction. There is no edema or shift of midlin e structures. No extra-axial fluid collections. Ricci-matter/white matter junction is preserved. Signa l voids are seen as a normal finding in the major intracranial vessels. Patient does have moderate atrophy appearing advanced for age. There is also extensive T2/IR white ma tter hyperintensities throughout both cerebral hemispheres extending into the basal ganglia, thalamus and brainstem tissues. This is a typical appearance for advanced for age chronic ischemic change. Mastoid air cells and paranasal sinuses are clear. No sella or supra sella abnormality. IMPRESSION: No acute infarction. No mass, hemorrhage or acute intracranial finding. Advanced for age atrophy and chronic ischemic change.
[2019-11-20] MEDS: ENOXAPARIN 40 MG/0.4 ML SQ SCH (16:38)
[2019-11-20] MEDS: ATORVASTATIN 20 MG TAB PO SCH (21:06)
[2019-11-21] MEDS: NA CHLORIDE 0.9% 1,000 ML IV SCH ×3 (00:40→09:29)
--- NOTE | 2019-11-21 06:26 | EKG ---
Test Date: 2019-11-19 Test Time: 17:27:05 Local Truck Driver: ODETTE MEASUREMENT RESULTS: Intervals: Rate: 68 ME: 164 QRSD: 140 QT: 458 QTc: 487 [place]: P: 69 ME: 164 QRS: -72 T: -28 INTERPRETIVE STATEMENTS: Normal sinus rhythm Right bundle branch block Left anterior fascicular block Bifascicular block Moderate voltage criteria for LVH, may be normal variant T wave abnormality, consider lateral ischemia Abnormal ECG No previous ECG available for comparison Electronically Signed On 11-21-19 06:24:14 CDT by Osbaldo Duran
[2019-11-21 07:02] LABS: Absolute Lymphocytes (CBC) 2.3 K/uL (0.7-4.9); Basophils % 0.4 % (0-1.3); Hematocrit 38.6 % (36.0-45.0); Lymphocytes % 21.4 % (15.3-44.8); RBC Red Blood Cell Count 4.05 M/uL (3.86-4.86)
[2019-11-21 08:08] LABS: Potassium 4.5 mmol/L (3.5-5.1)
[2019-11-21] MEDS: ASPIRIN EC 81 MG TAB PO SCH (09:21)
[2019-11-21] MEDS: CEFTRIAXONE/SWI 1gm 1 GM/10 ML SYR IV SCH ×2 (09:21→21:19)
[2019-11-21] MEDS: ACETAMINOPHEN 500 MG TAB PO PRN (09:28)
--- NOTE | 2019-11-21 09:56 | P.PN ---
Subjective Date of Service: 11/21/19 Patient is doing better. She lives at home alone. At this time, she is not able to care for herself. Continue with physical therapy. Social work consultation for possible placement Review of Systems 10-point ROS is otherwise unremarkable Physical Examination - Vital Signs Temperature: 97.0 F Blood Pressure: 169/77 Pulse: 61 Respirations: 16 Pulse Ox (%): 92 - Physical Exam General: Alert, In no apparent distress, Oriented x2 Respiratory: Clear to auscultation bilaterally, Normal air movement Cardiovascular: Regular rate/rhythm, Normal S1 S2, Systolic murmur Gastrointestinal: Normal bowel sounds, Soft and benign, Non-distended, No tenderness, No masses Musculoskeletal: No clubbing, No swelling Neurological: Normal gait, Normal tone, Sensation intact, Cranial nerves 3-12 intact, Abnormal strength - Studies Microbiology Data (last 24 hrs): 11/19/19 17:45 Clean Catch Urine [place] Count - Final >100,000 CFU/ML. 11/19/19 17:45 Clean Catch Urine - Final Escherichia Coli 11/19/19 16:07 Nasopharnyx Coronavirus COVID-19 PCR - Final Medications List Reviewed: Yes Assessment & Plan - Problems (Diagnosis) (1) Altered mental status Current Visit: Yes Status: Acute (2) Urinary tract infection Current Visit: Yes Status: Acute (3) Toxic encephalopathy Current Visit: Yes Status: Acute (4) Leukocytosis Current Visit: Yes Status: Acute - Plan Plan: Continue with current plan of care at this time 1. Continue with gentle IV hydration 2. Continue with IV antibiotics 3. Monitor neuro status closely; patient with persistent weakness; patient lives at home alone. May need to go to a alf facility for time being. 4. Monitor labs closely 5. Will start nebs as needed 6. Antiemetics 7. Monitor renal function closely 8. GI and DVT prophylaxis Discharge Plan: Home Plan to discharge in: Greater than 2 days - Advance Directives Does patient have a Living Will: No Does patient have a Durable POA for Healthcare: No - Code Status/Comfort Care Code Status: Full Code Critical Care: No Time Spent Managing PTS Care (In Minutes): 35
[2019-11-21] MEDS: ENOXAPARIN 40 MG/0.4 ML SQ SCH (16:00)
[2019-11-21] MEDS: ATORVASTATIN 20 MG TAB PO SCH (21:19)
[2019-11-21] MEDS ORDERED: DULOXETINE 30 MG CAP PO SCH (21:31)
[2019-11-21] MEDS: BUSPIRONE HCL 5 MG TABLET PO SCH (22:22)
[2019-11-21] MEDS: DULOXETINE 30 MG CAP PO SCH (22:22)
[2019-11-22] MEDS: NA CHLORIDE 0.9% 1,000 ML IV SCH ×5 (02:33→23:38)
--- NOTE | 2019-11-22 03:15 | P.PN ---
Subjective Date of Service: 11/22/19 Subjective: No new changes, No C/O voiced, Improving Spoke to patient's son who states he is unable to stay with her 22/01. They do not have any family members who were going to be able to stay with patient either. Patient would prefer for rehab placement. Will discuss with case man agement for long-term facility placement. Review of Systems 10-point ROS is otherwise unremarkable Physical Examination - Vital Signs Temperature: 97.0 F Blood Pressure: 169/77 Pulse: 61 Respirations: 16 Pulse Ox (%): 92 - Physical Exam General: Alert, In no apparent distress, Oriented x3 Respiratory: Clear to auscultation bilaterally, Normal air movement Cardiovascular: Regular rate/rhythm, Normal S1 S2, No murmurs Gastrointestinal: Normal bowel sounds, Soft and benign, Non-distended, No tenderness Musculoskeletal: No clubbing, No swelling, No tenderness Neurological: Normal tone, Sensation intact, Cranial nerves 3-12 intact, Ab normal strength - Studies Microbiology Data (last 24 hrs): 11/19/19 17:45 Clean Catch Urine [place] Count - Final >100,000 CFU/ML. 11/19/19 17:45 Clean Catch Urine - Final Escherichia Coli Medications List Reviewed: Yes Assessment & Plan - Problems (Diagnosis) (1) Altered mental status Current Visit: Yes Status: Acute (2) Urinary tract infection Current Visit: Yes Status: Acute (3) Toxic encephalopathy Current Visit: Yes Status: Acute (4) Leukocytosis Current Visit: Yes Status: Acute (5) Generalized weakness Current Visit: Yes Status: Acute - Plan Plan: Continue with current plan of care at this time 1. Hep-Lock IV 2. Oral antibiotic therapy 3. Arrange for long-term facility placement 4. Monitor labs closely 5. Will start nebs as needed 6. Antiemetics 7. Monitor renal function closely 8. GI and DVT prophylaxis Discharge Plan: Retirement Plan to discharge in: Greater than 2 days - Advance Directives Does patient have a Living Will: No Does patient have a Durable POA for Healthcare: No - Code Status/Comfort Care Code Status: Full Code Critical Care: No Time Spent Managing PTS Care (In Minutes): 25
[2019-11-22] MEDS: LOSARTAN POTASSIUM 50 MG TABLET PO SCH (06:02)
[2019-11-22] MEDS: DULOXETINE 30 MG CAP PO SCH (08:04)
[2019-11-22] MEDS: ASPIRIN EC 81 MG TAB PO SCH (08:04)
[2019-11-22] MEDS: CEFTRIAXONE/SWI 1gm 1 GM/10 ML SYR IV SCH ×2 (08:04→20:32)
[2019-11-22] MEDS: BUSPIRONE HCL 5 MG TABLET PO SCH ×2 (08:04→20:32)
[2019-11-22] MEDS: ENOXAPARIN 40 MG/0.4 ML SQ SCH (16:55)
[2019-11-22] MEDS: ATORVASTATIN 20 MG TAB PO SCH (20:31)
[2019-11-22] MEDS: ACETAMINOPHEN 500 MG TAB PO PRN (20:39)
[2019-11-23] MEDS: ASPIRIN EC 81 MG TAB PO SCH (08:20)
[2019-11-23] MEDS: LOSARTAN POTASSIUM 50 MG TABLET PO SCH (08:20)
[2019-11-23] MEDS: CEFTRIAXONE/SWI 1gm 1 GM/10 ML SYR IV SCH ×2 (08:20→21:03)
[2019-11-23] MEDS: DULOXETINE 30 MG CAP PO SCH (08:20)
[2019-11-23] MEDS: BUSPIRONE HCL 5 MG TABLET PO SCH ×2 (08:37→21:02)
[2019-11-23] MEDS: NA CHLORIDE 0.9% 1,000 ML IV SCH ×2 (08:37→22:36)
[2019-11-23] MEDS: ENOXAPARIN 40 MG/0.4 ML SQ SCH (16:07)
[2019-11-23] MEDS: ATORVASTATIN 20 MG TAB PO SCH (20:59)
--- NOTE | 2019-11-24 04:48 | P.PN ---
Subjective Date of Service: 11/23/19 Patient doing well with no new complaints. Awaiting fpc facility placement Review of Systems 10-point ROS is otherwise unremarkable Physical Examination - Vital Signs Temperature: 97.2 F Blood Pressure: 140/72 Pulse: 69 Respirations: 18 Pulse Ox (%): 96 - Physical Exam General: Alert, In no apparent distress, Oriented x3 Respiratory: Clear to auscultation bilaterally, Normal air movement Cardiovascular: Regular rate/rhythm, Normal S1 S2, No murmurs Gastrointestinal: Normal bowel sounds, Soft and benign, Non-distended, No tenderness Musculoskeletal: No clubbing, No swelling, No tenderness Integumentary: No rashes Neurological: Normal tone, Sensation intact, Cranial nerves 3-12 intact - Studies Medications List Reviewed: Yes Assessment & Plan - Problems (Diagnosis) (1) Altered mental status Current Visit: Yes Status: Acute (2) Urinary tract infection Current Visit: Yes Status: Acute (3) Toxic encephalopathy Current Visit: Yes Status: Acute (4) Leukocytosis Current Visit: Yes Status: Acute (5) Generalized weakness Current Visit: Yes Status: Acute - Plan Plan: Continue with current plan of care at this time 1. Hep-Lock IV 2. Will change antibiotics to p.o. 3. Arrange for fpc facility placement 4. Monitor labs closely 5. Will start nebs as needed 6. Antiemetics 7. Monitor renal function closely 8. GI and DVT prophylaxis Discharge Plan: Home Plan to discharge in: Greater than 2 days - Advance Directives Does patient have a Living Will: No Does patient have a Durable POA for Healthcare: No - Code Status/Comfort Care Code Status: Full Code Critical Care: No Time Spent Managing PTS Care (In Minutes): 30
--- NOTE | 2019-11-24 04:54 | P.PN ---
Subjective Date of Service: 11/24/19 Spoke to patient's son who states he is unable to stay with her 22/01. They do not have any family members who were going to be able to stay with patient either. Patient would prefer for rehab placement. Will discuss with case management for shelter facility placement. Review of Systems 10-point ROS is otherwise unremarkable Physical Examination - Vital Signs Temperature: 97.0 F Blood Pressure: 169/77 Pulse: 61 Respirations: 16 Pulse Ox (%): 92 - Physical Exam General: Alert, In no apparent distress, Oriented x3 Respiratory: Clear to auscultation bilaterally, Normal air movement Cardiovascular: Regular rate/rhythm, Normal S1 S2, No murmurs Gastrointestinal: Normal bowel sounds, Soft and benign, Non-distended, No tenderness Musculoskeletal: No clubbing, No swelling Neurological: Normal strength at 5/5 x4 extr, Sensation intact, Cranial nerves 3-12 intact, Normal reflexes 2+ - Studies Medications List Reviewed: Yes Assessment & Plan - Problems (Diagnosis) (1) Altered mental status Current Visit: Yes Status: Acute (2) Urinary tract infection Current Visit: Yes Status: Acute (3) Toxic encephalopathy Current Visit: Yes Status: Acute (4) Leukocytosis Current Visit: Yes Status: Acute (5) Generalized weakness Current Visit: Yes Status: Acute - Plan Plan: Continue with current plan of care at this time 1. Hep-Lock IV 2. Oral antibiotic therapy 3. Arrange for shelter facility placement 4. Monitor labs closely 5. Will start nebs as needed 6. Antiemetics 7. Monitor renal function closely 8. GI and DVT prophylaxis - Advance Directives Does patient have a Living Will: No Does patient have a Durable POA for Healthcare: No - Code Status/Comfort Care Code Status: Full Code
[2019-11-24] MEDS: ASPIRIN EC 81 MG TAB PO SCH (08:03)
[2019-11-24] MEDS: DULOXETINE 30 MG CAP PO SCH (08:03)
[2019-11-24] MEDS: LOSARTAN POTASSIUM 50 MG TABLET PO SCH (08:04)
[2019-11-24] MEDS: CEFTRIAXONE/SWI 1gm 1 GM/10 ML SYR IV SCH ×2 (08:04→20:47)
[2019-11-24] MEDS: BUSPIRONE HCL 5 MG TABLET PO SCH ×2 (08:04→20:46)
[2019-11-24] MEDS: ENOXAPARIN 40 MG/0.4 ML SQ SCH (16:43)
[2019-11-24] MEDS: ATORVASTATIN 20 MG TAB PO SCH (20:46)
[2019-11-24] MEDS: ACETAMINOPHEN 500 MG TAB PO PRN (20:46)
[2019-11-25] MEDS: BUSPIRONE HCL 5 MG TABLET PO SCH (09:00)
[2019-11-25] MEDS: BUSPIRONE HCL 15 MG TABLET PO SCH ×2 (09:00→20:35)
[2019-11-25] MEDS: ASPIRIN EC 81 MG TAB PO SCH (09:00)
[2019-11-25] MEDS: CEFTRIAXONE/SWI 1gm 1 GM/10 ML SYR IV SCH (09:02)
[2019-11-25] MEDS: DULOXETINE 30 MG CAP PO SCH (09:02)
[2019-11-25] MEDS: LOSARTAN POTASSIUM 50 MG TABLET PO SCH (09:02)
[2019-11-25] MEDS: ACETAMINOPHEN 500 MG TAB PO PRN (13:00)
[2019-11-25] MEDS: ENOXAPARIN 40 MG/0.4 ML SQ SCH (16:44)
[2019-11-25 16:47] VITALS: O2SAT 95
--- NOTE | 2019-11-25 19:52 | PN ---
Date of Progress Note: 11/25/2019 History Of Present Illness: Patient seen and examined. Chart reviewed and case discussed with RN. Medications list reviewed. Code status is full. Patient overall is doing well. No new complaints. No acute events overnight. Physical Examination: Vital Signs: Temperature 97.4, heart rate 74, blood pressure 135/73, respirations 18, O2 96% on room air. General: Awake, alert, oriented x3. Does not appear to be in any acute distress. CV: S1, S2. Regular rate and rhythm. Peripheral pulses present. Respiratory: Moving air well bilaterally. No wheezing or stridor. Gastrointestinal: Abdomen is soft, nontender, nondistended. Positive bowel sounds. Extremities: No clubbing, cyanosis, or edema. Neurologic: Nonfocal. Cranial nerves 2 through 12 intact grossly. Laboratory Data: Pending microbiology. Urine culture growing out E coli from the . Blood cultures negative. COVID, influenza also negative. Assessment: A 64-year-old female with: 1. Acute metabolic encephalopathy, likely related to urinary tract infection, improved. The patient back to baseline. No acute events overnight. 2. Acute cystitis without hematuria secondary to Escherichia coli treated with IV antibiotics. Treatment has been completed. We will check CBC in a.m. 3. Generalized weakness. Continue with physical therapy. 4. Morbid obesity. BMI 43. 5. Chronic obstructive pulmonary disease, chronic with chronic bronchitis. We will continue with nebulizer treatments as needed. Plan: 1. DVT prophylaxis. Patient is on Lovenox. 2. Discharge patient to alf facility. Discharge once accepted to [facility]. Patient is medically stable. /RAMIRO Voice ID: [id number] Report ID: [id number]
[2019-11-25] MEDS: ATORVASTATIN 20 MG TAB PO SCH (20:35)
[2019-11-26 06:32] LABS: Potassium 4.3 mmol/L (3.5-5.1)
[2019-11-26 07:10] LABS: Basophils % 0.4 % (0-1.3); Hematocrit 33.6 % (36.0-45.0); Lymphocytes % 29.7 % (15.3-44.8); RBC Red Blood Cell Count 3.57 M/uL (3.86-4.86)
[2019-11-26] MEDS: LOSARTAN POTASSIUM 50 MG TABLET PO SCH (08:41)
[2019-11-26] MEDS: BUSPIRONE HCL 15 MG TABLET PO SCH (08:41)
[2019-11-26] MEDS: ASPIRIN EC 81 MG TAB PO SCH (08:41)
[2019-11-26] MEDS: DULOXETINE 30 MG CAP PO SCH (08:41)
[2019-11-26] MEDS: ACETAMINOPHEN 500 MG TAB PO PRN (08:41)
[2019-11-26 08:49] VITALS: TEMP 97.7
[2019-11-26 12:28] VITALS: BP 137/73
--- NOTE | 2019-11-26 13:52 | PN ---
Date of Progress Note: 11/26/2019 Patient seen and examined. Chart reviewed and case discussed with RN. Patient is doing well. Await ing transfer to acceptance to [facility]. Medication list reviewed. Physical Examination: Vital Signs: Temperature 97.7, heart rate 73, blood pressure 137/73, respirations 18, O2 94% on room air. General: Awake, alert, oriented x3, not in any acute distress. CV: S1, S2. No murmurs. Respiratory: Moving air well bilaterally. No wheezing. Gastrointestinal: Abdomen is soft, nontender, nondistended. Positive bowel sounds. Extremities: No clubbing, cyanosis, or edema. Neuro: Nonfocal. Speech is normal. Laboratory Data: Sodium 145, potassium 4.3, chloride 108, CO2 is 32, BUN 9, creatinine 0.7, glucose 95, calcium 8.6. WBC 6.6, H and H 11.1 and 33.6, platelets 170. Urine culture growing out E coli. Assessment And Plan: 64-year-old female with: 1.Acute metabolic encephalopathy related to urinary tract infection, resolved, back to baseline. 2.Acute cystitis without hematuria secondary to Escherichia coli. Treatment completed with intraven ous antibiotics. WBC count normal. No signs of sepsis. 3.Generalized weakness, improving. Continue with physical therapy. 4.Chronic obstructive pulmonary disease and chronic bronchitis. Continue with albuterol p.r.n. 5.Morbid obesity. BMI 43. 6.Plan: Discharge to [facility] once accepted. /RAMIRO Voice ID: [id number] Report ID: [id number]
[2019-11-26] MEDS: ENOXAPARIN 40 MG/0.4 ML SQ SCH (16:54)
--- NOTE | 2019-11-27 00:50 | DS ---
Date of Discharge: 11/26/2019 Admitting Diagnoses: 1.Acute metabolic encephalopathy. 2.Acute cystitis without hematuria. 3.Morbid obesity, BMI 43. 4.Chronic obstructive pulmonary disease, chronic bronchitis. Discharge Diagnoses: 1.Acute metabolic encephalopathy secondary to urinary tract infection, resolved, back to baseline. 2.Acute cystitis without hematuria secondary to Escherichia coli, treatment completed with IV antibi otics. 3.Generalized weakness, improving. 4.Chronic obstructive pulmonary disease, chronic bronchitis. 5.Morbid obesity, BMI of 43. Hospital Course: Patient is a 64-year-old female with past medical history of COPD, comes in with al tered mental status. Patient found to be somewhat hypoxic. Patient was started on nebulizers tested for COVID, which was negative. Her white blood cell count improved. She was started on nebulizer t reatments. Patient was also found to have UTI and urine culture grew out E coli. Patient was treate d with Rocephin and treatment was completed during the hospital stay. Her blood type blood cultures were negative. Influenza screen was also negative. Head CT scan initially did not show any acute ch anges, did show moderate to marked low-density areas of periventricular, deep and subcortical white m atter secondary to ischemic changes secondary to small vessel disease, also had possible demyelinatin g process. Therefore, MRI of the brain was done, which showed no acute infarction, mass, hemorrhage or acute intracranial finding, advanced for age, atrophy and chronic ischemic change. Patient's fami ly requested penitentiary placement as they were unable to take care of the patient. Patient's condi tion improved. She was stable. She was then referred to [facility] and was accepted. Patient was then discharged to [facility] after being accepted. She will finish off course of antibiotics. Followup: Follow up with primary care physician in 1-2 weeks. Follow up with Cardiology and neurolo gy in 1-2 weeks. Return to the ER for any for worsening symptoms. Diet: Regular. Activity: Fall precautions. Physical Examination: For physical exam findings please see progress note dictated on day of discharge. Total time spent discharging patient was 33 minutes. /RAMIRO Voice ID: [id number] Report ID: [id number]
== END 2019-11-26 17:00 | disposition home or self-care (01) | DRG 689 ==
LOC: ER 15:23 → ERHOLD 22:05 → OBSVTOIN 22:05 → 4TH 22:45 → 2ND 11-20 11:23
PROVIDERS: ADMIT Hospitalist; ATTEND Family Medicine
DX: N30.00 Acute cystitis without hematuria (principal); G92 Toxic encephalopathy; Z68.41 Body mass index [BMI] 40.0-44.9, adult; R50.9 Fever, unspecified; J44.9 Chronic obstructive pulmonary disease, unspecified; Z20.828 Contact with and (suspected) exposure to other viral communicable diseases; Z88.1 Allergy status to other antibiotic agents; Z79.02 Long term (current) use of antithrombotics/antiplatelets; Z79.899 Other long term (current) drug therapy; Z87.891 Personal history of nicotine dependence; D72.829 Elevated white blood cell count, unspecified; Z60.2 Problems related to living alone; B96.20 Unspecified Escherichia coli [E. coli] as the cause of diseases classified elsewhere; E66.01 Morbid (severe) obesity due to excess calories
CPT/HCPCS: 36415; 51702; 70450; 70551; 71045; 80048; 80053; 80061; 80076; 80307; 81003; 81015; 82140; 82550; 82553; 83605; 83690; 84145; 84484; 85025; 85384; 85610; 85730; 86140; 87040; 87077; 87086; 87088; 87186; 87804; 93005; 96361; 96365; 96366; 96375; 97116; 97161; 97530; 99285; J0696; J1650; J2405; J7030; U0002

== ENCOUNTER 2020-07-05 10:03 | Emergency (ER) | payer BC ==
--- OUTSIDE RECORDS SUMMARY | 2020-07-05 10:30 | XMS REPORT | Continuity of Care Document ---
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 Diabetes mellitus Resolved Problem 04/11/2019 hgb A1c [facility] (disorder) came down and doctors took her off of meds Essential hypertension Active Problem 04/11/2019 (disorder) [facility] Hyperlipidemia Active Problem 04/11/2019 [facility] (disorder) [facility] Hypothyroidism Active Problem 04/11/2019 (disorder) [facility] right foot Active Problem 04/11/2019 [facility] pain(Confirmed) Sleep apnea (finding) Active Problem 04/11/2019 [facility] Type B viral hepatitis Active Problem 04/11/2019 [facility] (disorder) Type 2 diabetes Active Problem 01/11/2019 NE [...] type Drug-induced Active Diagnosis 10/02/2018 NE D[facility] mejia constipation [facility] Pain in left knee Active Diagnosis 12/29/2017 [facility] Right foot pain Active Diagnosis 06/08/2017 [facility] Need for shingles Active Diagnosis 05/15/2017 N E [facility] vaccine [facility] Low back pain Active Diagnosis 05/06/2017 [facility] Coronary artery Active Problem 01/11/2019 NE Primary disease involving Ca re Assoc [place] coronary artery of [place] heart without angina pectoris Slow transit Active Problem 01/11/2019 [facility] D[facility] mejia constipation [facility] Other secondary Active [...] Obesity (BMI Active Diagnosis 01/21/2015 NE Dori roberto 30.0-34.9) [facility] Allergic rhinitis due [...] Active Diagnosis 04/13/2018 [facility] Medications Medication Details Route Status Patient Ordering [...] = 1 No Longer caps, Active 2019 Cap-DR, Oral, Daily, first dose 04/08/19 9:00:00 CDT, Patient's Own Meds rexulti 1 mg, Misc, No Longer I Oral, Active 2019 Daily, first dose 04/08/19 9:00:00 CDT, Patient's Own Meds Omeprazole 20 mg = 1 No Longer I caps, Active 2019 Cap-EC, Oral, Daily, first dose 04/08/19 9:00:00 CDT Vancomycin MRSA [id number] colonizatio 2019 n or infection, 1 gm, [...] No Longer tabs, Tab, Active 2019 Oral, BID, first dose 04/07/19 21:00:00 CDT, Patient's Own Meds ferrous sulfate 325 mg = 1 No Longer I tabs, Tab, Active 2018 Oral, BIDPC, first dose 04/07/19 20:00:00 CDT Cefazolin 1 gm, IV [id number] Piggyback, 2019 q8hr, infuse over 30 minutes, [...] en in 24 MG Oral Tablet hours [[place] 10/325] Acetaminophen Notes: Max No Longer 325 MG / 4gm Active 2018 Hydrocodone acetaminoph Bitartrate 7.5 en in 24 MG Oral Tablet hours [[place] 7.5/325] Naloxone 0.4 mg = 1 No Longer mL, Active 2018 Injection, IV Push, q2min PRN for other (see comment), first dose 04/07/19 14:43:00 CDT Benadryl 25 mg = 0.5 No Longer mL, 2018 Injection, IM, q6hr PRN for itching, first dose 04/07/19 14:43:00 CDT Morphine 30 mL, MERCHANDISE MANAGER Inactive Dose (mg): 2018 1, Lockout Interval (min): 5, Limit Amount (mg): 5, Limit Period (hr): 1, Continuous Rate (mg/hr): 0, Loading Dose (mg): 2, RN Adm Bolus (mg): 1, Bolus Dose Lockout (hr): 1, IV, MERCHANDISE MANAGER, start date 04/07/19 14:43:00 CDT Zofran ODT 4 mg = 1 No Longer tabs, Active 2018 Tab-Dis, Oral, q6hr PRN for nausea/vomi ting, first dose 04/07/19 14:43:00 CDT Bisacodyl 10 mg = 1 No Longer supp, Supp, Active 2018 MN, Daily PRN for constipatio n, first dose [...] Fleet Enema 133 mL, No Longer Enema, MN, Active 2018 Once PRN for constipatio n, first dose 04/07/19 14:43:00 CDT Milk of 30 mL, No Longer [facility] Magnesia Susp, Oral, Active 2019 qHS PRN for constipatio n, first dose 04/07/19 14:43:00 CDT Acetaminophen Notes: Max No Longer [facility] 4gm Active 2018 acetaminoph en in 24 hours Saline Lock 10 mL, No Longer [facility] Flush Soln, IV Active 2019 Push, As Indicated, first dose 04/07/19 14:43:00 CDT LR 1,000 mL 1,000 mL, No Longer [facility] IV, 60 Active 2019 mL/hr, start date 04/07/19 14:43:00 CDT, Change rate to 45ml/hr if using MERCHANDISE MANAGER or convert to Saline Lock Demerol HCl [...] CDT propofol 50 mg = 5 Inactive [facility] mL, 2018 Emulsion, IV, Once, [...] CDT rocuronium 10 mg = 1 Inactive USP2018 Injection, IV, Once, first dose 04/07/19 10:58:00 CDT, stop date 04/07/19 10:58:00 CDT succinylcholine 100 mg = 5 Inactive 2018 Injection, IV, Once, first dose 04/07/19 10:58:00 CDT, stop date 04/07/19 10:58:00 CDT fentaNYL 100 mcg = 2 Inactive , 2018 Injection, IV, Once, first dose 04/07/19 10:58:00 CDT, stop date 04/07/19 10:58:00 CDT lidocaine 100 gm = 5 Inactive 2018 Injection, IV, Once, first dose 04/07/19 10:58:00 CDT, stop date 04/07/19 10:58:00 CDT ceFAZolin 2 gm, Inactive Powder-Inj, 2018 IV, Once, first dose 04/07/19 10:58:00 CDT, stop date 04/07/19 10:58:00 CDT ropivacaine 275 mg = 55 Inactive 2018 Injection, Nerve Block, Once, first dose 04/07/19 10:44:00 CDT, stop date 04/07/19 10:44:00 CDT fentaNYL 100 mcg = 2 Inactive 2018 Injection, IV, Once, first dose 04/07/19 10:31:00 CDT, stop date 04/07/19 10:31:00 CDT midazolam 2 mg = 2 Inactive 2018 Injection, IV, Once, first dose 04/07/19 10:30:00 CDT, stop date 04/07/19 10:30:00 CDT Ciprofloxacin 500 mg = 1 Active 500 MG Oral tabs, Oral, 2019 Tablet [Cipro] q12hr, 0 Refill(s) Vancomycin Increased Inactive MRSA rate 2019 (facility/p rocedure), 1 gm, IV Piggyback, Once, infuse over 60 minutes, first dose 04/07/19 10:00:00 CDT, stop date 04/07/19 10:00:00 CDT Cefazolin 2 gm, IV Inactive Piggyback, 2019 Once, infuse over 30 minutes, first dose 04/07/19 10:00:00 CDT, stop date 04/07/19 10:00:00 CDT, Prophylaxis Pain Ease 1 sprays, Inactive topical spray Norman, [facility], 2019 Once, first dose 04/07/19 10:00:00 CDT, stop date 04/07/19 10:00:00 CDT, Apply topically for 4 - 10 seconds from a distance of 3 - 7 inches from the procedure site LR 1,000 mL 1,000 mL, Inactive IV, 100 2019 mL/hr, start date 04/07/19 9:18:00 CDT, For Adults Aspirin 81 mg, Active [facility] Oral, 2018 Daily, stopping 03/31, 0 Refill(s) Rexulti 1 mg, Oral, Active Daily, 0 2019 Refill(s) Prednisone 20 mg, [...] tablet on Orally Active 88 MCG Orally Jesus 10/22 Sodium an empty Once a day 2018 Primary stomach in Care the morning Assoc Levaquin 1 tablet Orally Active 500 mg Orally Jesus Once a day 2019 [facility] Alliance Thyroid 1 tablet on Orally Active 90 MG Orally [place]umgarner 10/17 / NE an empty Once a day 2019 [...] as directed Subcutane Active 60 MG/ML Baumgarner 04/11/ NE ous Subcutaneous 2018 Primary everry 6 [...] directed n/a Active n/a n/a daily Baumgarner 01/10/ NE placard 2018 [facility] Macrobid [...] 1 tablet Orally Active 750 MG Orally Bagarner 11/21/ NE Once a day 2017 [facility] Folic Acid 1 tablet Orally Active 800 MCG Orally garner 10/16/ NE Once a day 2017 [facility] [employer] Thyroid 1 tablet on Orally Active 120 MG Orally umgarner NE an empty Once a day 2017 Primary stomach [facility] Lisinopril 1 tablet Orally Active 20 mg Orally garner NE twice a day 2017 Primary (bid) Care [facility] [employer] Thyroid 1 tablet on Orally Active 90 MG Orally garner 09/10/ N E an empty Once a day 2017 Primary stomach [facility] Myrbetriq 1 tablet Orally Active 50 mg Orally garner NE Once a day 2017 [facility] morphine 1 mg = 0.1 Inactive 05/17/ [facility] mL, 2016 Injection, IV Push, q5min PRN for Pain Moderate (4-6), order duration: 5 doses, first dose 05/17/17 11:30:00 CANNONEER, stop date Limited # of times Demerol HCl 12.5 mg = Inactive 05/17/ [facility] 0.5 mL, 2016 Injection, IV Push, q5min PRN for Pain Mild (1-3), order duration: 4 doses, first dose 05/17/17 11:30:00 CANNONEER, stop date Limited # of times promethazine 12.5 mg, IV Inactive 05/17/ [facility] IVPB Piggyback, 2016 Once PRN for nausea/vomi ting, infuse over 15 minutes, first dose 05/17/17 11:30:00 CANNONEER Misc Medication 600 mL, Inactive 05/17/ [facility] Soln-IV, 2016 IV, Once, first dose 05/17/17 11:26:00 CANNONEER, stop date 05/17/17 11:26:00 CANNONEER propofol 550 mg = 55 Inactive 05/17/ [facility] mL, 2016 Emulsion, IV, Once, first dose 05/17/17 11:22:00 CANNONEER, stop date 05/17/17 11:22:00 CANNONEER ondansetron 4 mg = 2 Inactive 05/17/ [facility] mL, 2016 Injection, IV, Once, first dose 05/17/17 10:48:00 CANNONEER, stop date 05/17/17 10:48:00 CANNONEER ceFAZolin 2 gm, Inactive [facility] Powder-Inj, 2016 IV, Once, first dose 05/17/17 10:42:00 CANNONEER, stop date 05/17/17 10:42:00 CANNONEER dexamethasone 4 mg = 1 Inactive 05/17/ [facility] mL, 2016 Injection, IV, Once, first dose 05/17/17 10:37:00 CANNONEER, stop date 05/17/17 10:37:00 CANNONEER fentaNYL 50 mcg = 1 Inactive 05/17/ [facility] mL, 2016 Injection, IV, Once, first dose 05/17/17 10:37:00 CANNONEER, stop date 05/17/17 10:37:00 CANNONEER fentaNYL 50 mcg = 1 Inactive 05/17/ [facility] mL, 2016 Injection, IV, Once, first dose 05/17/17 10:31:00 CANNONEER, stop date 05/17/17 10:31:00 CANNONEER midazolam 2 mg = 2 Inactive 05/17/ [facility] mL, 2016 Injection, IV, Once, first dose 05/17/17 10:25:00 CANNONEER, stop date 05/17/17 10:25:00 CANNONEER Cefazolin 2 gm, Inactive [facility] Soln-IV, IV 2016 Piggyback, Once, infuse over 30 minutes, first dose 05/17/17 10:00:00 CANNONEER, stop date 05/17/17 10:00:00 CANNONEER, Prophylaxis Pain Ease 1 sprays, Inactive [facility] topical spray Norman, TOP, 2016 Once, first dose 05/17/17 10:00:00 CANNONEER, stop date 05/17/17 10:00:00 CANNONEER, Apply topically for 4 - 10 seconds from a distance of 3 - 7 inches from the procedure site LR 1,000 mL 1,000 mL, Inactive [facility] IV, 100 2016 mL/hr, start date 05/17/17 9:13:00 CANNONEER, For Adults Zostavax as directed Subcutane Active Jesus ous UNT/0.65ML 2017 Primary Subcutaneous Care one time Assoc cognium cognium, No Longer [facility] 100mg Active 2017 daily, 0 Refill(s) simvastatin 10 10 mg [...] tabs, No Longer chewable 5000 Oral, BID, Active 2016 units # 30 tabs, 0 Refill(s) Esomeprazole 20 1 tabs, No Longer MG / Naproxen Oral, BID, Active 2016 500 MG Enteric # 60 tabs, [...] No Longer MG Oral Tablet tabs, Oral, Active 2016 [Xanax] QID, PRN for anxiety, 0 Refill(s) levothyroxine 125 mcg, Active [facility] Oral, 2017 Daily, 0 Refill(s) Levemir FlexPen 35 units, No Longer Subcutaneou Active 2016 s, BID, 0 Refill(s) clopidogrel 75 75 mg = 1 Active [facility] mg oral tablet tabs, Oral, 2017 Daily, # 30 tabs, 0 Refill(s) Thyroxine 88 mcg, Active [facility] Oral, 2016 Daily, 0 Refill(s) clopidogrel 75 75 mg = 1 Active [facility] mg oral tablet tabs, Oral, 2017 qHS, stopping 03/31, # 30 tabs, 0 Refill(s) alendronate 70 70 mg = 1 Active 05/10/ [facility] mg oral tablet tabs, Oral, 2017 [...] // NE with food every 12 hrs 2016 [facility] Bactrim DS 1 tablet Orally Active 800-160 MG Baumgarner 01/31/ NE Orally Twice a 2016 [facility] Trulicity once a week sq Active 0.75mg/0.5ml Baumgarner 01/31/ NE as directed sq every 2 wks 2016 [facility] Bactrim DS 1 tablet Orally Active 800-160 MG Baumgarner 01/31/ NE Orally Twice a 2016 [facility] Macrobid 1 capsule Orally Active 100 MG Orally Baumgarner 01/31/ NE with food every 12 hrs 2016 [facility] BuPROPion HCl 1 tablet Orally Active 75 MG Orally Baumgarner 09/18/ N E daily 2016 [facility] BuPROPion HCl 1 tablet Orally Active 75 MG Orally Baumgarner 09/18/ N E daily 2016 [facility] Pen [place] as directed SQ Active 31G X 8 MM SQ Baumgarner 08/16/ NE 5/16" twice a day 2016 Primary (bid) [facility] Pen [place] as directed SQ Active 31G X 8 MM SQ Baumgarner 08/16/ NE 5/16" twice a day 2016 Primary (bid) [facility] VESIcare 1 tablet Orally Active 10 MG Orally Baumgarner 06/01/ NE Once a day 2015 [facility] Macrobid 1 capsule Orally [...] by mouth Active 20MG by mouth Baumgarner 12/07/ NE once a day 2016 [facility] Adipex-P 1 tablet Orally Active 37.5 MG Orally Baumgarner NE Once a day 2015 [facility] Adipex-P 1 tablet Orally Active 37.5 MG Orally Baumgarner NE Once a day 2015 [facility] Ultram 1 tablet as Orally Active 50 mg Orally Baumgarner NE needed twice a day 2015 Primary (bid) [facility] Acyclovir 1 tablet [...] times a 2015 [facility] Acyclovir 1 tablet Orally Active 400 MG Orally Baumgarner NE Three times a 2014 [facility] [place] 1 tablet as Orally Active 5-325 MG Baumgarner 10/19/ NE needed Orally three 2014 Primary times a day Care (tid) Assoc [place] 1 tablet as Orally Active 5-325 MG Baumgarner NE needed Orally three 2014 Primary times a day Care (tid) Assoc Valtrex 1 tablet Orally Active 1 GM Orally Baumgarner NE three times a 2014 Primary day (tid) Care Assoc Neurontin 1 capsule Orally Active 300 MG Orally Baumgarner NE twice a day 2015 Primary (bid) [facility] Symbicort 2 puffs Inhalatio Active 80-4.5 MCG/ACT Baumgarner NE n Inhalation 2015 Primary Twice a day Care [facility] Symbicort 2 puffs Inhalatio Active 80-4.5 MCG/ACT Baumgarner 07/24/ NE n Inhalation 2015 Primary Twice a day Care [facility] Zithromax Z-Ezequiel 2 tablets Orally Active 250 MG Orally Baumgarner 07/24 NE on the Once a day 2015 Primary first day, Care then 1 Assoc tablet daily for 4 days Levemir as directed subcutane Active 100 unit/ml Baumgarner NE FlexTouch ous subcutaneous 2014 Primary 30u bid Care [facility] Victoza 1.8 Subcutane Active 18 MG/3ML Baumgarner 06/27/ NE ous Subcutaneous 2013 Primary Once a day [facility] Victoza 0.2 ml Subcutane Active 18 MG/3ML Baumgarner 06/20/ NE ous Subcutaneous 2013 Primary Once a day [facility] Victoza 1.8 Subcutane Active 18 MG/3ML Baumgarner 06/08/ NE ous Subcutaneous 2013 Primary Once a day [facility] Fosamax [...] Active 4 mg Orally as Baumgarner 12/05 / NE directed 2013 [facility] Flonase 1 spray in Nasally Active 50 MCG/ACT Baumgarner 12/01/ NE each Nasally twice 2013 Primary nostril a day (bid) Care Assoc Jolie Allergy 1 tablet Orally Active 180 MG Orally Baumgarner 11/28/ NE Once a day 2013 [facility] Nasonex 2 sprays in Nasally Active 50 MCG/ACT Baumgarner 11/28/ NE each Nasally twice 2013 Primary nostril a day (bid) Care [facility]oc Linzess 1 capsule by mouth Active 145 MCG by Jesus 10/15/ NE mouth Once a 2013 [facility] day [facility] Xanax 1 tablet by mouth Active 0.5 MG by Jesus 10/01/ NE mouth four 2013 Primary times a day Care (qid) as Assoc needed (prn) Demerol HCl 12.5 mg = Inactive Abdirahmanoctenzin 0.5 mL, 2013 Surgical Injection, Hospital IV Push, [place] q5min PRN for Pain Mild (1-3), order duration: 4 doses, first dose 09/25/13 9:18:00 CDT, stop date Limited # of times morphine 2 mg = 0.2 Inactive Bull mL, 2013 Surgical Injection, Hospital IV Push, [place] q5min PRN for pain severe (7-10), order duration: 5 doses, first dose 09/25/13 9:18:00 CDT, stop date Limited # of times promethazine 12.5 mg, IV Inactive Bull IVPB Piggyback, 2013 Surgical Once PRN [facility] nausea/vomi ting, infuse over 15 minutes, first dose 09/25/13 9:18:00 CDT Misc Medication 250 mL, Inactive Deb Soln-IV, 2013 Surgical IV, Once, Hospital first dose [place] 09/25/13 8:48:00 CDT, stop date 09/25/13 8:48:00 CDT propofol 50 mg = 5 Inactive Deb mL, 2013 Surgical Emulsion, Hospital IV, Once, [place] first dose 09/25/13 8:41:00 CDT, stop date 09/25/13 8:41:00 CDT propofol 50 mg = 5 Inactive Deb mL, 2013 Surgical Emulsion, Hospital IV, Once, [place] first dose 09/25/13 8:37:00 CDT, stop date 09/25/13 8:37:00 CDT propofol 100 mg = 10 Inactive Deb mL, 2013 Surgical Emulsion, Hospital IV, Once, [place] first dose 09/25/13 8:32:00 CDT, stop date 09/25/13 8:32:00 CDT propofol 50 mg = 5 Inactive Deb mL, 2013 Surgical Emulsion, Hospital IV, Once, [place] first dose 09/25/13 8:28:00 CDT, stop date 09/25/13 8:28:00 CDT propofol 100 mg = 10 Inactive Deb mL, 2013 Surgical Emulsion, Hospital IV, Once, [place] first dose 09/25/13 8:23:00 CDT, stop date 09/25/13 8:23:00 CDT propofol 100 mg = 10 Inactive Deb mL, 2013 Surgical Emulsion, Hospital IV, Once, [place] first dose 09/25/13 8:17:00 CDT, stop date 09/25/13 8:17:00 CDT lidocaine 3 mL, Inactive Deb Injection, 2013 Surgical IV, Once, [facility] first dose [place] 09/25/13 8:15:00 CDT, stop date 09/25/13 8:15:00 CDT fentanyl 100 mcg = 2 Inactive Deb mL, 2013 Surgical Injection, Hospital IV, Once, [place] first dose 09/25/13 8:14:00 CDT, stop date 09/25/13 8:14:00 CDT midazolam 2 mg = 2 Inactive Deb mL, 2013 Surgical Implant, Hospital IV, Once, [place] first dose 09/25/13 8:14:00 CDT, stop date 09/25/13 8:14:00 CDT cefazolin 1 gm, Inactive [place] Soln-IV, IV 2013 Surgical Piggyback, Hospital Once, [place] infuse over 30 minutes, first dose 09/25/13 7:00:00 CDT, stop date 09/25/13 7:00:00 CDT ethyl chloride 1 sprays, Inactive Bull topical spray Norman, TOP, 2013 Surgic al Once, first Hospital dose [place] 09/25/13 7:00:00 CDT, stop date 09/25/13 7:00:00 CDT Sodium Chloride 250 mL, IV, Inactive Bull 0.9% 250 mL 25 mL/hr, 2013 Surgical start date [facility] 09/25/13 [place] 6:54:00 CDT Naprosyn 1 tablet as by [...] Surgica l Oral, BID, Hospital 0 Refill(s) [place] clonazepam 0.5 0.25 mg = No Longer 09/19/ [facility] mg oral tablet 0.5 tabs, Active 2013 Oral, BID, 0 Refill(s) clonazepam 0.5 0.25 mg = No Longer 09/19/ [facility] mg oral tablet 0.5 tabs, Active 2013 Oral, BID, 0 Refill(s) Seroquel 50 mg 50 mg = 1 Active oral tablet tabs, Oral, 2013 Surgical Daily, 0 Hospital Refill(s) [place] Seroquel 50 mg 50 mg = 1 No Longer 09/19/ [facility] oral tablet tabs, Oral, Active 2013 Daily, 0 Refill(s) quetiapine 50 50 mg = 1 No Longer 09/19/ [facility] MG Oral Tablet tabs, Oral, Active 2013 [Seroquel] Daily, 0 Refill(s) Milk Thistle 2, Oral, Active Daily, 0 2013 Surgical Refill(s) [facility] Flintstones 1 tabs, Active with Iron oral Chewed, 2013 Surgical tablet, Daily, 0 Hospital chewable Refill(s) [place] Milk Thistle 2, Oral, No Longer 09/19/ [facility] Daily, 0 Active 2013 Refill(s) Flintstones 1 tabs, No Longer 09/19/ [facility] with Iron oral Chewed, Active 2013 tablet, Daily, 0 chewable Refill(s) lisinopril 40 40 mg = 1 Active mg oral tablet tabs, Oral, 2013 Surgi pooja Daily, 0 Hospital Refill(s) [place] Vitamin D 1 tabs, No Longer chewable 5000 Oral, Active 2013 Surgical units Daily, # 30 Hospital tabs, 0 [place], Refill(s) [facility] lisinopril 40 40 mg = 1 No Longer 09/19/ [facility] mg oral tablet tabs, Oral, Active 2013 Daily, 0 Refill(s) Victoza 18 mg/3 1.8 mg, Active [facility] mL subcutaneous Subcutaneou 2013 Surg ical solution s, Daily, 0 Hospital Refill(s) [place] lovastatin 40 40 mg = 1 Active 09/19/ [facility] mg oral tablet tabs, Oral, 2013 Surgi pooja Daily, 0 Hospital Refill(s) [place] omeprazole 20 20 mg = 1 Active 09/19/ mg oral delayed tabs, Oral, 2013 Surg ical release tablet Daily, 0 Hospital Refill(s) [place] 3 ML 1.8 mg, No Longer 09/19/ [facility] liraglutide 6 Subcutaneou Active 2013 MG/ML Prefilled s, Daily, 0 Syringe Refill(s) [Victoza] Lovastatin 40 40 mg = 1 No Longer 09/19/ [facility] MG Oral Tablet tabs, Oral, 2013 Daily, 0 Refill(s) Omeprazole 20 20 mg = 1 No Longer 09/19/ [facility] MG Enteric tabs, Oral, 2013 Coated Tablet Daily, 0 Refill(s) Viibryd 40 mg 40 mg = 1 Active oral tablet tabs, Oral, 2013 Surgical Daily, 0 Hospital Refill(s) [place] Levemir FlexPen 30 units, Active Subcutaneou 2013 Surgical s, BID, 0 Hospital Refill(s) [place] 20 mg 20 mg = 1 Active oral tablet tabs, Oral, 2013 Surgical BID, 0 Hospital Refill(s) [place] vilazodone 40 mg = 1 No Longer [...] ER with liquid Once a day [facility] Allergy Relief 1 tablet as [...] Baumgarner NE Triple Strength [facility] [place] 3 1 capsule Orally Active 1000 MG [...] Hydrobromide ER with liquid Once a day [facility] Niacin 1 tablet Orally Active [...] rce Influenza (use 03/21/2016 completed NE P desire this) Care [facility] Influenza (use 07/05/2015 completed NE P desire this) [facility] Pneumococcal 23 07/05/2015 completed [...] % 18.7 20.0 - 03/26 [facility] 40.0 /2019 LABORATORY Neutrophil % 68.9 45.0 - 03/26 [facility] 75.0 2019 LABORATORY Monocyte % 9.8 2.0 - 12.0 03/26 LABORATORY RDW 13.8 11.5 - 03/26I 14.5 LABORATORY Hematocrit 36.4 36.0 - 03/26I 48.0 2019 LABORATORY MCV 96.8 80.0 - 03/26 [facility] 98.0 LABORATORY MCH 32.2 27.0 - 03/26 [facility] 31.0 /2019 LABORATORY MCHC 33.3 32.0 - 03/26I 36.0 /2018 LABORATORY White Blood 8.2 3.7 - 10.4 03/26 Count /2018 LABORATORY Red Blood 3.76 4.20 - 03/26 Cell Count 5.40 LABORATORY Hemoglobin 12.1 12.0 - 03/26 16.0 [...] characteristi cs have been verified by the
[facility] within the [facility]. The
[facility] is authorized under the Clinical Laboratory
Improvement Amendment of 1988 (CLIA-88) to perform high complexity testing. LABORATORY Alk Phos 82 39 - 136 03/26 Result Comment: The pediatric reference ranges for this test represent a CLSI-based
transferenc e of the CALIPER database of pediatric reference intervals to the
[employer] [place] analyzer (Clinical Biochemistry 46 (2012): 8164-8857). [facility] has not internally validated these reference<br/ >ranges and therefore they should be used only in the context of a thorough
clinical assessment. LABORATORY Calcium Level 9.1 8.5 - 10.5 03/26 LABORATORY ALT 30 0 - 65 03/26 LABORATORY AST 20 0 - 37 03/26 LABORATORY Bilirubin 0.3 0.2 - 1.3 03/26 LABORATORY eGFR 62 03/26 Result Comment: The [...] values reflect the clinical guidelines
of the [place] [employer]. LABORATORY BUN 25 7 - [...] values reflect the clinical guidelines
of the [place] [employer]. LABORATORY Chloride 104 95 - 109 05/10 [facility] Level /2017 LABORATORY Potassium 4.8 3.5 - 5.1 05/10 [facility] Level /2017 LABORATORY Sodium Level 140 135 - 145 05/10 [facility] /2017 LABORATORY Calcium Level 9.1 8.5 - 10.5 [...] Hemoglobin 12.5 12.0 - 05/10 [facility] 16.0 /2017 LABORATORY Magnesium 2.1 1.8 - 2.4 05/10 [facility] Level /2017 Pathology Reports No Data Provided for This [...] Oral (F) 98.5 F 05/11/2017 NE [facility] Heart Rate 71 05/11/2017 NE [...] Care Assoc Diastolic (mm Hg) 81 09/25/2013 [facility] od Respitory Rate 9 09/25/2013 Surgical [facility] od Systolic (mm Hg) 119 09/25/2013 Surgical [facility] od Heart Rate 72 09/25/2013 Surgical [facility] od Diastolic (mm Hg) 87 09/25/2013 [facility] od Respitory Rate 11 09/25/2013 [facility] od Systolic (mm Hg) 129 09/25/2013 [facility] od Heart Rate 71 09/25/2013 [facility] od Respitory Rate 13 09/25/2013 [facility] od Diastolic (mm Hg) 82 09/25/2013 [facility] od Systolic (mm Hg) 123 09/25/2013 [facility] od Heart Rate 74 09/25/2013 [facility] od Heart Rate 77 09/25/2013 [facility] od Temperature Oral (F) 36.9 Marjorie 09/25/2013 Surg [facility] od Temperature Oral (F) 37.0 Marjorie 09/19/2013 [facility] od Weight 122.8 09/19/2013 [facility] od Body Mass Index 46.22 09/19/2013 [facility] od Height 163 cm 09/19/2013 [facility] od Weight 267.2 09/15/2013 [facility] Primary Care [...] For Provider Date Date Visit [place] Unknown [id number] 09/24 09/24 NE Primary [id number] /2013 [id number] [id number] [facility] , [place] [facility] Unknown [id number] 09/24 09/24 NE Primary [id number] /2013 [facility] [id number] Care [facility] [id number] [facility] [place] [facility] [id number] 09/24 09/24 [facility] Primary aa7-4a61-a /[facility] f[facility]-71utdf [facility] [id number] [facility] [id number] 09/24 09/24 NE Primary 7bb-40ba-8 /2013 [facility] 57f-8d3cde [facility] [id number] [facility] [place] [facility] [id number] 09/24 09/24 NE Primary 95d-4e6b-a /2013 [facility] e09-59918a [facility] ce3b3f [facility] [place] [facility] [id number] 09/24 09/24 NE Primary 785-4ab6-9 /2013 [facility] 5dd-329e37 [facility] c693ed [facility] [place] [facility] [id number]-y 09/24 09/24 NE Primary ad9-45a4-b /2013 [facility] 9fd-b11d2f [facility] dl568f [facility] [place] [facility] 2c53h8w3-2 09/24 09/24 NE Primary o64-0826-n /2013 [facility] 8u1-q948l0 [facility] c6a1d5 [facility] [place] [facility] k7cl8jnu-w 09/24 09/24 NE Primary bd3-4d7a-b /2013 [facility] 90f-783eae [facility] d95f2d [facility] [place] [facility] 7xa56f3l-4 09/24 09/24 NE Primary 357-4d35-b /2013 [facility] 9h2-6c20dl [facility] a81d3b [facility] [place] [facility] [id number] 09/24 09/24 NE Primary 9eb-41e9-b /2013 [facility] 889-4m033a [facility] c59c19 [facility] [place] [facility] [id number] 09/24 09/24 NE Primary w8s-4713-1 /2013 [facility] 90e-322fd3 [facility] 581dc3 [facility] [place] [facility] [id number] 09/24 09/24 NE Primary w93-598u-6 /2013 [facility] 109-287845 [facility] 58d4db [facility] [place] [facility] 70a3l9i2-r 09/24 09/24 NE Primary 29b-4243-b /2013 [facility] 3d4-89v075 [facility] u9p400 [facility] [place] [facility] 8ns6e146-1 09/24 09/24 NE Primary 470-4f13-b /2013 [facility] 666-3s0259 [facility] 70p505 [facility] [place] [facility] [id number] 09/24 09/24 NE Primary 65c-4966-8 /2013 [facility] 086-0x9515 [facility] 9b73c7 [facility] [place] [facility] 8kn6d8p6-9 09/24 09/24 NE Primary 52f-4a58-b /2013 [facility] 033-034a26 [facility] [id number] [facility] [place] [facility] [id number] 09/24 09/24 NE Primary 92b-43dd-8 /2013 [facility] fc0-461d76 [facility] 098a14 [facility] [place] [facility] [id number]-p 09/24 09/24 NE Primary s50-3hj7-5 /2013 [facility] 573-b805d2 [facility] dd9b59 [facility] [place] [facility] [id number]-7 09/24 09/24 NE Primary 1p9-16k0-1 /2013 [facility] 042-c4f88d [facility] xcq873 [facility] [place] [facility] 2i6xv960-4 09/24 09/24 NE Primary 1q2-2p56-y /2013 [facility] i24-02z8dh [facility] acff8c [facility] [place] [facility] 2f77g664-w 09/24 09/24 NE Primary ebf-4739-b /2013 [facility] 7ce-5ac5b5 [facility] [id number] [facility] [place] [facility] [id number] 09/24 09/24 NE Primary 525-4ae2-b /2013 [facility] k34-p74511 [facility] a35c39 [facility] [place] [facility] 77v095g9-5 09/24 09/24 NE Primary a21-0225-9 /2013 [facility] 722-q33895 [facility] [id number] [facility] [place] [facility] [id number] 09/24 09/24 NE Primary 095-4285-a /2013 [facility] y50-5594y0 [facility] f69f1d [facility] [place] [facility] [id number]-3 09/24 09/24 NE Primary 7j1-3h81-2 /2013 [facility] 4e0-0n0gbo [facility] [id number] [facility] [place] [facility] nrxv70i4-1 09/24 09/24 NE Primary 3fa-46b3-b /2013 [facility] 760-2bb93d [facility] dc93c0 [facility] [place] [facility] 54dk53vl-7 09/24 09/24 NE Primary 482-478a-b /2013 [facility] [phone] [facility] 0f0e01 [facility] [place] [facility] [id number]-x 09/24 09/24 NE Primary 2v6-1mf1-e /2013 [facility] 752-34dd63 [facility] 60ea4e [facility] [place] [facility] [id number]-m 09/24 09/24 NE Primary 61e-4ecd-a /2013 [facility] 1db-c21a94 [facility] 8bb7e1 [facility] [place] [facility] [id number] 09/24 09/24 NE Primary cef-491c-b /2013 [facility] 668-a7a3dd [facility] 596ba7 [facility] [place] [facility] [id number] 09/24 09/24 NE Primary 584-477d-8 [facility] ba3-6bce1a [facility] 26dfda [facility] [place] [facility] [id number]-8 09/24 09/24 NE Primary 3fb-4d24-9 /2013 [facility] 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-314167 [facility] [id number] [facility] [place] [facility] [id number] 09/24 09/24 NE Primary 8f0-0woi-2 /2013 [facility] dc0-fda08c [facility] [id number] [facility] [place] [facility] [id number]-n 09/24 09/24 NE Primary 3t5-4jnz-j /2013 [facility] 0ec-2d319c [facility] 8cfc56 [facility] [place] [facility] 8jb24kv5-6 09/24 09/24 NE Primary y84-27iv-2 /2013 [facility] k98-413945 [facility] 93861q [facility] [place] [facility] Unknown hgrw311i-m 09/24 09/24 NE Primary 410-4b2a-b /2013 [facility] o23-3p6ur8 [facility] [id number] [facility] [place] [facility] Unknown [id number] 09/24 09/24 NE Primary 000-4602-9 /2013 [facility] 188-6gu656 [facility] [id number] [facility] , [place] [facility] Unknown [id number]-1 09/24 09/24 NE Primary e9r-77h8-b /2013 [facility] 1g8-8f2c20 [facility] ccaf18 [facility] [place] [facility] Unknown cupru25j-f 09/24 09/24 NE Primary 76d-4efd- [facility] 032-ve8149 [facility] [id number] [facility] [place] [facility] Outpatient [id number] [facility] 09/25 09/25 Discharge [facility] /[address] [facility] Followup 1 [id number]-e 10/01 10/01 NE Primary week 6g2-6ela-e /2013 [facility] 127-c0f00d [facility] [id number] , [place] [facility] Followup 1 [id number]-u 10/01 10/01 NE Primary week 1q0-2t1d-a /2013 [facility] 13e-7dc0c1 [facility] [id number] , [place] Followup 1 9yt94sxz-p 10/01 10/01 NE Primary week 55e-4ca3-b /2013 [facility] 8df-z21412 [facility] 832b0d [facility] [place] [facility] Followup 1 [id number]-q 10/01 10/01 NE Primary week 3o3-2652-n /2013 [facility] 7n6-uht4i2 [facility] 06deef , [place] [facility] Followup 1 [id number] 10/01 10/01 NE Primary week 657-47b6-b /2013 [facility] de2-155014 [facility] 0bfdb2 , [place] [facility] Followup 1 77byp724-4 10/01 10/01 NE Primary week 63c-4c7a-8 /2013 [facility] a49-w9o0n8 [facility] c8b4d9 , [place] [facility] Followup 1 [id number] 10/01 10/01 NE Primary week 7w2-7l04-1 /2013 [facility] bbf-66a075 [facility] [id number] , [place] [facility] Followup 1 udq907w9-8 10/01 10/01 NE Primary week 26f-47ab-a /2013 [facility] 17d-9561c1 [facility] 966cda , [place] [facility] Followup 1 p80e39d9-9 10/01 10/01 NE Primary week aa2-43f6-b /2013 [facility] 610-c92dea [facility] da11aa , [place] [facility] Followup 1 [id number] 10/01 10/01 NE Primary week h96-7871-8 /2013 [facility] 47b-6868f0 [facility] 06601v , [place] [facility] Followup 1 [id number] 10/01 10/01 NE Primary week ae1-42e9-a /2013 [facility] 007-7af1e9 [facility] [id number] , [place] [facility] Followup 1 [id number] 10/01 10/01 NE Primary week 996-4ddc-a /2013 [facility] 2fa-e6dbd4 [facility] 4deaa5 , [place] [facility] Followup 1 [id number] 10/01 10/01 NE Primary week 26a-40c5-b /2013 [facility] 895-9au832 [facility] cac1c0 , [place] [facility] Followup 1 20l45nd0-m 10/01 10/01 NE Primary week 33b-4c94-a /2013 [facility] 151-25bb67 [facility] 4620aa , [place] [facility] Followup 1 [id number] 10/01 10/01 NE Primary week dde-49f8-b /2013 [facility] 64c-f18b8f [facility] 82815m , [place] [facility] Followup 1 [id number]-m 10/01 10/01 NE Primary week t58-64r1-l /2013 [facility] 66e-36092x [facility] [id number] [facility] [place] [facility] Followup 1 [id number]-v 10/01 10/01 NE Primary week 48c-4dfa-8 /2013 [facility] d3c-19za2e [facility] 2dbcac , [place] [facility] Followup 1 91d8p189-l 10/01 10/01 NE Primary week 53f-4ae1-9 [facility] 8dc-dj768x [facility] a89e0d [facility] [place] [facility] Followup 1 75099l19-q 10/01 10/01 NE Primary week 8fd-47b7-8 [facility] p69-f8553k [facility] z6h186 [facility] [place] [facility] Followup 1 meqk4z71-9 10/01 10/01 NE Primary week fcc-4f2f-b /2013 [facility] h84-q28z4a [facility] [id number] [facility] [place] [facility] Followup 1 [id number] 10/01 10/01 NE Primary week 92b-40d6-9 [facility] n5x-zw140f [facility] [id number] [facility] [place] [facility] Followup 1 805bp481-c 10/01 10/01 NE Primary week 515-4810-8 [facility] 536-310fce [facility] ce99d8 [facility] [place] [facility] Followup 1 [id number] 10/01 10/01 NE Primary week 4h4-3y20-g /2013 [facility] 0d0-76r4gj [facility] 010a8b [facility] [place] [facility] Followup 1 [id number]-[id number] 10/01 10/01 NE Primary week 857-4347-b /2013 [facility] 4ca-4669a0 [facility] [id number] [facility] [place] [facility] Followup 1 [id number] 10/01 10/01 NE Primary week 571-4f40-8 [facility] cd7-0d8f3e [facility] ecc7f0 [facility] [place] [facility] Followup 1 sk6wjsa7-k 10/01 10/01 NE Primary week 0f4-35v0-z /2013 [facility] 7dc-93230u [facility] 95838d [facility] [place] [facility] Followup 1 77cm7315-f 10/01 10/01 NE Primary week 6dc-4258-8 /2013 [facility] 621-8b330i [facility] 2760bc [facility] [place] [facility] Followup 1 y1ev93z6-f 10/01 10/01 NE Primary week 921-44c2-b /2013 [facility] 86b-991dd9 [facility] ab625q [facility] [place] [facility] Followup 1 7qbtri82-7 10/01 10/01 NE Primary week 9e9-67c0-9 /2013 [facility] ff8-8v0094 [facility] 0ad8f5 , [place] [facility] Followup 1 9k52ev1m-y 10/01 10/01 NE Primary week 334-4b8f-9 [facility] 7j2-ciho40 [facility] 65f52f [facility] [place] [facility] Followup 1 [id number] 10/01 10/01 NE Primary week ba3-4d56-a /2013 [facility] h56-674845 [facility] [id number] [facility] [place] [facility] Followup 1 ic384o99-5 10/01 10/01 NE Primary week v20-04n6-3 /2013 [facility] 44d-6f2b12 [facility] 4ae4bc [facility] [place] [facility] Followup 1 [id number] 10/01 10/01 NE Primary week 239-4e49-a /2013 [facility] 345-8a3116 [facility] [id number] [facility] [place] [facility] Followup 1 52wz70xe-8 10/01 10/01 NE Primary week 201-44f3-a /2013 [facility] c3n-h81v5c [facility] b44140 [facility] [place] [facility] Followup 1 [id number] 10/01 10/01 NE Primary week 1ac-42a0-b /2013 [facility] o2t-o6byn8 [facility] [id number] [facility] [place] [facility] Followup 1 cm41nq33-1 10/01 10/01 NE Primary week 1c0-9cy4-q /2013 [facility] 40e-239eac [facility] [id number] [facility] [place] [facility] Followup 1 1g09q36w-6 10/01 10/01 NE Primary week cb8-493a-9 [facility] 6w7-2q4u9r [facility] 14193g [facility] [place] [facility] Followup 1 np0u1wqy-8 10/01 10/01 NE Primary week bbb-429f-8 [facility] b8w-70hbhg [facility] cb19ad [facility] [place] [facility] Followup 1 00ribj19-y 10/01 10/01 NE Primary week 3fc-4654-a /2013 [facility] 21e-5s0612 [facility] 3a6f3a [facility] [place] [facility] Follow-Up 2 ap86t417-7 10/15 10/15 NE Primary weeks q24-6560-o /2013 [facility] 3g6-f110s5 [facility] 04cb71 [facility] [place] [facility] Follow-Up 2 3jah66ds-5 10/15 10/15 NE Primary weeks r39-878x-s /2013 [facility] 8z8-406o3r [facility] 05943z [facility] Follow-Up 2 n0w39k71-6 10/15 10/15 NE Primary weeks k60-6eln-5 [facility] 811-a60fb6 [facility] 7caa5a [facility] [place] [facility] Follow-Up 2 ff34s436-7 10/15 10/15 NE Primary weeks o07-20q9-q /2013 [facility] 0g7-56lvue [facility] cdb5c3 [facility] Follow-Up 2 7v41c8c4-s 10/15 10/15 NE Primary weeks 496-4b1d-9 [facility] h0g-46xd25 [facility] [id number] [facility] Follow-Up 2 x4m86a95-1 10/15 10/15 NE Primary weeks j4f-14jk-5 [facility] g3t-071q19 [facility] b7ddb5 [facility] Follow-Up 2 420u9e46-7 10/15 10/15 NE Primary weeks s8k-4pv2-v /2013 [facility] 135-820016 [facility] fa7d30 [facility] [place] [facility] Follow-Up 2 0l59t9y7-y 10/15 10/15 NE Primary weeks 495-4ce8-a /2013 [facility] ccc-eb26aa [facility] [id number] [facility] [place] [facility] Follow-Up 2 [id number] 10/15 10/15 NE Primary weeks 49e-4281-9 /2013 [facility] 80d-7188f8 [facility] [id number] [facility] [place] [facility] Follow-Up 2 a4l37j5a-b 10/15 10/15 NE Primary weeks n18-75t7-6 /2013 [facility] 63a-64ff9d [facility] 1i669e [facility] Follow-Up 2 o6bts596-u 10/15 10/15 NE Primary weeks 67e-420b-8 [facility] 671-39e775 [facility] ebd07c [facility] [place] [facility] Follow-Up 2 2cab071t-1 10/15 10/15 NE Primary weeks cb8-41b3-a /2013 [facility] 574-jl1004 [facility] [id number] [facility] Follow-Up 2 e01pwit0-7 10/15 10/15 NE Primary weeks 711-4085-8 /2013 [facility] 89b-54c8a6 [facility] f3cc04 [facility] [place] [facility] Follow-Up 2 5933h5r6-5 10/15 10/15 NE Primary weeks m7p-4075-z /2013 [facility] 8cc-fd9c58 [facility] ae2a65 [facility] [place] [facility] Follow-Up 2 8h3502gr-1 10/15 10/15 NE Primary weeks 95d-484c-b /2013 [facility] u85-j7ue0c [facility] d9ecee [facility] [place] [facility] Follow-Up 2 v0d224g0-9 10/15 10/15 NE Primary weeks o4b-7556-4 /2013 [facility] 79b-j2182p [facility] cab93f [facility] [place] [facility] Follow-Up 2 0ef19207-9 10/15 10/15 NE Primary weeks w05-6r52-0 /2013 [facility] 878-256824 [facility] 4900e5 [facility] [place] [facility] Follow-Up 2 2jn0354f-3 10/15 10/15 NE Primary weeks bc8-4986-9 /2013 [facility] d59-6zyh32 [facility] b814e4 [facility] [place] [facility] Follow-Up 2 y1svn703-0 10/15 10/15 NE Primary weeks ffb-44a1-a /2013 [facility] z6h-31j69r [facility] 8d83b0 [facility] Follow-Up 2 20mz625a-y 10/15 10/15 NE Primary weeks 264-41e9-b /2013 [facility] 9ef-95fcdf [facility] 59i198 [facility] Follow-Up 2 [id number]-8 10/15 10/15 NE Primary weeks 747-428e-b /2013 [facility] dd4-246078 [facility] e9a4d3 [facility] Follow-Up 2 680rm9b7-0 10/15 10/15 NE Primary weeks 3ea-4575-a /2013 [facility] 7z6-20i7f5 [facility] 3cf7fe [facility] Follow-Up 2 [id number] 10/15 10/15 NE Primary weeks 74e-4876-a /2013 [facility] 66a-197910 [facility] 31ba93 [facility] Follow-Up 2 zfnt469j-j 10/15 10/15 NE Primary weeks 33a-4004-b /2013 [facility] ff4-38j927 [facility] 01ba11 [facility] [place] [facility] Follow-Up 2 82s2e2ku-0 10/15 10/15 NE Primary weeks 7y2-16eq-y /2013 [facility] c9t-37izkv [facility] c10b93 [facility] [place] [facility] Follow-Up 2 j605i9va-6 10/15 10/15 NE Primary weeks 6ee-4902-a /2013 [facility] 646-3q502z [facility] b64c99 [facility] [place] [facility] Follow-Up 2 z55m2799-s 10/15 10/15 NE Primary weeks 277-4dd0-9 [facility] y78-x1mg5a [facility] 1bcf97 [facility] [place] [facility] Follow-Up 2 b5a7py48-j 10/15 10/15 NE Primary weeks 8n7-3599-7 [facility] 811-63512f [facility] c056be [facility] [place] [facility] Follow-Up 2 21t5nqs8-t 10/15 10/15 NE Primary weeks q5a-31g7-9 [facility] 5m8-435t02 [facility] 738356 [facility] [place] [facility] Follow-Up 2 [id number] 10/15 10/15 NE Primary weeks i7i-0137-n /2013 [facility] 7ad-50q470 [facility] 89f1db [facility] [place] [facility] Follow-Up 2 9jc973kk-9 10/15 10/15 NE Primary weeks 8dd-42f2-a [facility] 6ee-bd1b16 [facility] ab76f7 [facility] [place] [facility] Follow-Up 2 oo73g950-n 10/15 10/15 NE Primary weeks 7r1-2979-g /2013 [facility] eea-f27087 [facility] e091fa [facility] [place] [facility] Follow-Up 2 68797yv3-d 10/15 10/15 NE Primary weeks 8da-403a-a /2013 [facility] 2da-550422 [facility] 7ac2cd [facility] [place] [facility] Follow-Up 2 19c403y5-b 10/15 10/15 NE Primary weeks f16-0qu0-2 [facility] 185-a0b5a6 [facility] 40b7c1 [facility] [place] [facility] Follow-Up 2 gm041471-c 10/15 10/15 NE Primary weeks ca1-4c59-b /2013 [facility] 580-a2aabb [facility] e20a53 [facility] [place] [facility] Follow-Up 2 6826aafd-d 10/15 10/15 NE Primary weeks 78b-486a-b /2013 [facility] s85-8qb11f [facility] 96e1fa [facility] Follow-Up 2 1y9as893-e 10/15 10/15 NE Primary weeks 3bc-4b7e-b /2013 [facility] fb8-a3a2bc [facility] 9wk563 [facility] Follow-Up 2 f8760rx3-v 10/15 10/15 NE Primary weeks b91-9c14-s /2013 [facility] q89-0b8983 [facility] f49a8f [facility] Follow-Up 2 13117owo-2 10/15 10/15 NE Primary weeks 0t4-620g-i /2013 [facility] 4c4-337951 [facility] c0a2f8 [facility] [place] [facility] Poss sinus 3z2m9vp2-8 11/28 11/28 NE Primary inf 800-4566- [facility] 2l2-8y62t0 [facility] 3fbc42 [facility] [place] [facility] Poss sinus 90011pjy-6 11/28 11/28 NE Primary inf j5k-9501-4 [facility] 88d-dtm773 [facility] 47ad04 [facility] [place] [facility] Poss sinus 81j5i12n-r 11/28 11/28 NE Primary inf 060-40a3-8 /2013 [facility] 6a9-6kym52 [facility] 23da03 [facility] [place] [facility] Poss sinus 1t1316zg-9 11/28 11/28 NE Primary inf 726-4aff-a /2013 [facility] 775-163be6 [facility] 432c33 [facility] [place] [facility] Poss sinus y6095123-1 11/28 11/28 NE Primary inf 7m5-602p-k /2013 [facility] 8i1-ll2200 [facility] [id number] [facility] [place] [facility] Poss sinus 1p385jii-g 11/28 11/28 NE Primary inf 584-4fae- [facility] 868-qie590 [facility] 97aac1 [facility] [place] [facility] Poss sinus 38332409-a 11/28 11/28 NE Primary inf w92-525x-5 [facility] eb8-d49b38 [facility] 3g369j [facility] [place] [facility] Poss sinus 957503uz-u 11/28 11/28 NE Primary inf 78a-455d-8 /2013 [facility] 327-507a34 [facility] 2039e6 [facility] [place] [facility] Poss sinus e50vo1o8-1 11/28 11/28 NE Primary inf e1j-092q-5 /2013 [facility] 085-94o289 [facility] cf1b2b [facility] [place] [facility] Poss sinus 3evi18c7-2 11/28 11/28 NE Primary inf q37-8oi8-r /2013 [facility] 650-1428dc [facility] [id number] [facility] [place] [facility] Poss sinus 20230736-9 11/28 11/28 NE Primary inf q86-699d-t /2013 [facility] 5ed-2c7899 [facility] 69fe55 [facility] [place] [facility] Poss sinus gpq8kxg0-a 11/28 11/28 NE Primary inf 982-4bbb-9 /2013 [facility] 237-9ddf61 [facility] 7bac63 [facility] [place] [facility] Poss sinus w3b68627-q 11/28 11/28 NE Primary inf 6y7-4963-3 /2013 [facility] 8y0-d0282u [facility] mb6596 [facility] [place] [facility] Poss sinus 3709103l-1 11/28 11/28 NE Primary inf 9k4-7a92-9 [facility] 1db-dbcb7a [facility] 554107 [facility] [place] [facility] Poss sinus 02t1u373-8 11/28 11/28 NE Primary inf b34-9779-p /2013 [facility] 950-933af0 [facility] [id number] [facility] [place] [facility] Poss sinus 7084n7i5-7 11/28 11/28 NE Primary inf 2n6-74e6-n /2013 [facility] 420-4e6fb1 [facility] 74eeb7 [facility] [place] [facility] Poss sinus 3o7x3rza-v 11/28 11/28 NE Primary inf k23-2111-9 /2013 [facility] fdb-75245t [facility] 574346 [facility] [place] [facility] Poss sinus 08w31ljv-w 11/28 11/28 NE Primary inf 802-4ffd-8 /2013 [facility] 6eb-32f8d7 [facility] 836f06 [facility] [place] [facility] Poss sinus 2ct75q44-6 11/28 11/28 NE Primary inf 146-49df-8 /2013 [facility] 342-17c82c [facility] [id number] [facility] [place] [facility] Poss sinus 516w6so5-6 11/28 11/28 NE Primary inf 54a-4e8a-b /2013 [facility] 3ef-3q4279 [facility] f4a2bc [facility] [place] [facility] sinus 9q6bx065-0 11/28 11/28 NE Primary inf 153-4f32-b /2013 [facility] c74-938qk4 [facility] 25cc62 [facility] [place] [facility] Poss sinus 72181331-c 11/28 11/28 NE Primary inf 9c7-605r-4 /2013 [facility] 45e-4o4492 [facility] 70v755 [facility] [place] [facility] sinus 0qtb0d39-o 11/28 11/28 NE Primary inf 7y7-9pja-s /2013 [facility] 172-7k3479 [facility] 4cf6fd [facility] [place] [facility] sinus j00t7q32-9 11/28 11/28 NE Primary inf ea5-40ad-a /2013 [facility] 9k9-86i277 [facility] f33d94 [facility] [place] [facility] Poss sinus 15oe898a-n 11/28 11/28 NE Primary inf u19-43oj-w /2013 [facility] q83-349q9g [facility] 027eb4 [facility] [place] [facility] Poss sinus 20819oy6-d 11/28 11/28 NE Primary inf 8ab-40ce-b /2013 [facility] 8f6-215uh7 [facility] 8ed42c [facility] [place] [facility] sinus 342pnd4k-1 11/28 11/28 NE Primary inf 371-4abf-8 /2013 [facility] u7a-f3g665 [facility] 392e0e [facility] [place] [facility] sinus a2651sx3-u 11/28 11/28 NE Primary inf 6h5-4z7m-1 /2013 [facility] 3s5-726e25 [facility] 2f1e4e [facility] [place] [facility] sinus 579514uz-f 11/28 11/28 NE Primary inf 033-4d5f-a /2013 [facility] 904-1v1102 [facility] ap8882 [facility] [place] [facility] sinus 38x81g39-1 11/28 11/28 NE Primary inf m93-316g-6 [facility] 3e6-5e1xce [facility] 26bc89 [facility] [place] [facility] up691r8y-7 11/28 11/28 NE Primary inf ae2-4eb9- [facility] 027-26dd70 [facility] de71d2 [facility] [place] [facility] sinus 7c6q4mvx-x 11/28 11/28 NE Primary inf 105-4877-a /2013 [facility] o0a-46m92s [facility] 763f1d [facility] [place] [facility] x7a4e913-i 11/28 11/28 NE Primary inf dfa-4373-9 /2013 [facility] 023-398d4c [facility] 7c2e6a [facility] [place] [facility] sinus 3834ubg2-3 11/28 11/28 NE Primary inf z1b-923a-9 [facility] 2cf-a5a4b1 [facility] adcff3 [facility] [place] [facility] sinus 12874f3y-5 11/28 11/28 NE Primary inf 782-4b11-a /2013 [facility] cc7-m0873c [facility] 473ca5 [facility] [place] [facility] sinus q9bg5535-c 11/28 11/28 NE Primary inf aa4-492d-8 [facility] 3i6-6597k2 [facility] 1423f0 [facility] [place] [facility] sinus 5sz38u70-4 11/28 11/28 NE Primary inf belle-4e86-9 /2013 [facility] y24-0j01e3 [facility] 6ccbc7 [facility] Nas[facility]x req [id number] 12/01 12/01 NE Primary PA so db8-4f39- [facility] changed to y4d-26490a [facility] 651f42 [facility] , [facility] Nasonex req [id number] 12/01 12/01 NE Primary PA so 91e-4b4b- [facility] changed to 647-4c1a44 [facility] [id number] [facility] , [facility] Nasonex req [id number] 12/01 12/01 NE Primary PA so 7ca-4805- [facility] changed to 9k2-4t8717 [facility] e4fc6c [facility] , [facility] Nasonex req [id number] 12/01 12/01 NE Primary PA so 573-4398- [facility] changed to 0w4-66e873 [facility] 0a7e4d [facility] , [facility] Nasonex req [id number] 12/01 12/01 NE Primary PA so h60-43qh-k /2013 [facility] changed to 60b-0ef36e [facility] 6bcbe8 [facility] , [facility] Nasonex req [id number] 12/01 12/01 NE Primary PA so 3ca-44dd- [facility] changed to t5l-9577w4 [facility] 330b80 [facility] Nasonex req [id number] 12/01 12/01 NE [facility] so [id number] [facility] changed to [id number] [facility] [id number] [facility] req [id number] 12/01 12/01 [facility] [id number] [facility] changed to [id number] [facility] [id number] [facility] Nasonex req [id number] 12/01 12/01 [facility] [id number] [facility] changed to [id number] [facility] [id number] [facility] req [id number] 12/01 12/01 [facility] [id number] [facility] changed to [id number] [facility] [id number] [facility] req [id number] 12/01 12/01 [facility] [id number] /2013 [facility] changed to [id number] [facility] [id number] [facility] req [id number] 12/01 12/01 [facility] [id number] /2013 [facility] changed to [id number] [facility] [id number] [facility] req [id number] 12/01 12/01 [facility] [id number] [facility] changed to [id number] [facility] [id number] [facility] req [id number] 12/01 12/01 [facility] so [id number]- [facility] changed to [id number] [facility] [id number] [facility] req [id number] 12/01 12/01 [facility] [id number] [facility] changed to [id number] [facility] [id number] [facility] req [id number] 12/01 12/01 [facility] [id number] [facility] changed to [id number] [facility] [id number] [facility] req [id number] 12/01 12/01 [facility] [id number] /2013 [facility] changed to [id number] [facility] [id number] [facility] req [id number] 12/01 12/01 [facility] so [id number] [facility] changed to [id number] [facility] [id number] [facility] Nasonex req [id number] 12/01 12/01 [facility] so [id number] /2013 [facility] changed to [id number] [facility] [id number] [facility] Nasonex req [id number] 12/01 12/01 [facility] so [id number]- [facility] changed to [id number] [facility] [id number] [facility] [facility] req [id number] 12/01 12/01 [facility] Primary PA so 7fb-4ca9- [facility] Care changed to [phone] [facility] [id number] [facility] , [facility] req [id number] 12/01 12/01 NE Primary PA so 1fb-4063-a [facility]ima [facility] Care changed to n35-626uxq [facility] [id number] [facility] , [facility] req [id number] 12/01 12/01 [facility] Primary PA so 6fa-4c0d- Prima [facility] Care changed to 05b-b4227d [facility] 796af0 [facility] , [facility] req [id number] 12/01 12/01 [facility] Primary PA so 30c-45db-9 Prima [facility] Care changed to bef-t3010s [facility] a239d3 [facility] req [id number] 12/01 12/01 [facility] Primary PA so def-40b0-a Prima [facility] Care changed to 150-3fs341 [facility] [id number] Assoc , [facility] req [id number] 12/01 12/01 [facility] PA so p35-302b-s /2013 Prima [facility] Care changed to 70f-a0f1ea [facility] 16a9bf [facility] , [facility] req [id number] 12/01 12/01 NE Primary PA so n66-63ah-0 Prima ry Care changed to [id number] [facility] 686e90 [facility] , [facility] req [id number] 12/01 12/01 NE Primary PA so 96a-4861- Prima ry Care changed to ca8-f7dee9 [facility] 7b3d91 [facility] , [facility] req [id number] 12/01 12/01 [facility] Primary PA so 2db-456e-9 Prima ry Care changed to ee8-e3c524 [facility] 4ef56a [facility] , [facility] req [id number] 12/01 12/01 [facility] PA so 7y3-67c8-9 Prima [facility] Care changed to 250-f109bd [facility] e11f51 [facility] , [facility] req [id number] 12/01 12/01 [facility] Primary PA so s40-1k7a-5 Prima ry Care changed to 714-d650ea [facility] 608c4d [facility] , [facility] req [id number] 12/01 12/01 [facility] PA so 68b-456b-b /2013 Prima [facility] Care changed to 2fb-fld540 [facility] 98bc5c [facility] req [id number] 12/01 12/01 [facility] PA so 353-4fd4-b Prima [facility] Care changed to g1u-356e69 [facility] [id number] [facility] , [facility] req [id number] 12/01 12/01 [facility] Primary PA so 8df-4766- Prima ry Care changed to 8b0-3cj325 [facility] fddb56 [facility] , [facility] req [id number] 12/01 12/01 [facility] Primary PA so t62-4jyh-e /2013 Prima [facility] Care changed to q46-0b2775 [facility] [id number] [facility] , [facility] req [id number] 12/01 12/01 [facility] Primary PA so bfe-45f0-b /2013 Prima ry Care changed to 999-9af15f [facility] [id number] [facility] , [facility] req [id number] 12/01 12/01 [facility] Primary PA so fde-4273-a /2013 Prima ry Care changed to 635-eus376 [facility] db0df2 [facility] , [facility] allergies otob682n-z 12/05 12/05 NE Primary not any 98b-46dc-a /2013 Prim rekha Care better from fc7-edafca [facility] last visit e82dc5 As soc , [facility] allergies [id number] 12/05 12/05 NE Primary not any 7j4-1y09-5 Prim rekha Care better from dc2-28f34b [facility] last visit [id number] As soc , [facility] allergies rw5385wv-4 12/05 12/05 NE Primary not any 796-4de1- Prim rekha Care better from 32c-z7q309 [facility] last visit ccc62b As soc , [facility] allergies e0l2901i-4 12/05 12/05 NE Primary not any 382-4045- Prim rekha Care better from 4q0-f03z4a [facility] last visit [id number] As soc , [facility] allergies 848o1858-9 12/05 12/05 NE Primary not any 343-44b5- Prim rekha Care better from y70-3510y5 [facility] last visit dbdd12 As soc , [facility] allergies e01131n2-6 12/05 12/05 NE Primary not any 327-4be4- Prim rekha Care better from 489-4h4880 [facility] last visit 32c1b1 [facility] , [place] [facility] allergies 3184qiv6-g 12/05 12/05 NE Primary not any fbb-4422-b /2013 Prim rekha Care better from 2a9-99x9db [facility] last visit a206dd [facility] , [place] [facility] allergies 2uq19689-p 12/05 12/05 NE Primary not any 01f-4935-b /2013 Prim rekha Care better from aeb-721e76 [facility] last visit a9caef [facility] , [place] [facility] allergies y30r7v53-z 12/05 12/05 NE Primary not any 9ec-4370-b /2013 Prim rekha Care better from ab9-c9849l [facility] last visit d852d5 [facility] , [place] [facility] allergies 231745m3-9 12/05 12/05 NE Primary not any x7o-31g0-2 Prim rekha Care better from 762-619cb5 [facility] last visit [id number] [facility] , [place] [facility] allergies j1199nnq-2 12/05 12/05 NE Primary not any 774-4dc0- Prim rekha Care better from bb6-9x8532 [facility] last visit 8f26ab [facility] , [place] [facility] allergies zg889275-7 12/05 12/05 NE Primary not any 49f-4e37- Prim rekha Care better from 5s9-7528v1 [facility] last visit k1623a [facility] , [place] [facility] allergies qc3gvran-9 12/05 12/05 NE Primary not any cb5-4fe2- Prim rekha Care better from 6fd-94b0b1 [facility] last visit [id number] [facility] , [place] [facility] allergies 9ivv195e-c 12/05 12/05 NE Primary not any 1f8-8s74-z Prim rekha Care better from 171-60273c [facility] last visit 69w037 [facility] , [place] [facility] allergies 3g31c9oi-2 12/05 12/05 NE Primary not any g31-782d-2 Prim rekha Care better from 1l8-2p7r8i [facility] last visit 122a0f [facility] , [place] [facility] allergies 6j0i0o30-a 12/05 12/05 NE Primary not any 56c-4576-b /2013 Prim rekha Care better from 0n3-s2f9m7 [facility] last visit 79da50 As soc , [facility] allergies 23554cn9-8 12/05 12/05 NE Primary not any 4m2-405q-4 Prim rekha Care better from 05c-19cac5 [facility] last visit c7bfe5 [facility] , [place] [facility] allergies 1619r352-6 12/05 12/05 NE Primary not any ac0-439e-a /2013 Prim rekha Care better from 0ca-ecbbdd [facility] last visit 38176d As soc , [facility] allergies hgo1491u-4 12/05 12/05 NE Primary not any u19-4234-8 Prim rekha Care better from 493-l9j538 [facility] last visit d5d47a As soc , [facility] allergies rulyb258-c 12/05 12/05 NE Primary not any 481-4b59- Prim rekha Care better from 982-c1c5fa [facility] last visit 3932fa As soc , [facility] allergies 5902x674-z 12/05 12/05 NE Primary not any edb-4fd9- Prim rekha Care better from y98-edc4a9 [facility] last visit [id number] As soc , [facility] allergies 6c8o8563-8 12/05 12/05 NE Primary not any i56-63s6-i /2013 Prim rekha Care better from g09-7b5268 [facility] last visit i34511 As soc , [facility] allergies 1swfrm47-o 12/05 12/05 NE Primary not any 9u3-2y14-h Prim rekha Care better from 40d-agw980 [facility] last visit 6f4cd7 As soc , [facility] allergies t19u31d4-7 12/05 12/05 NE Primary not any 4n6-1j94-0 Prim rekha Care better from 111-b6fd09 [facility] last visit 263b0a As soc , [facility] allergies 59027362-7 12/05 12/05 NE Primary not any 54d-4255- Prim rekha Care better from j3q-1gg697 [facility] last visit 3fafa0 [facility] , [place] [facility] allergies v7i59126-l 12/05 12/05 NE Primary not any 45c-4cea- Prim rekha Care better from 16f-g8q105 [facility] last visit [id number] [facility] , [place] [facility] allergies 23a2k161-r 12/05 12/05 NE Primary not any o63-513r-3 Prim rekha Care better from 382-e1e651 [facility] last visit 5g8195 As soc , [facility] allergies b7r0468z-f 12/05 12/05 NE Primary not any q99-8g79-r Prim rekha Care better from l45-491u79 [facility] last visit 6c8c2c As soc , [facility] allergies jedy0p08-p 12/05 12/05 NE Primary not any 9e1-943m-y Prim rekha Care better from 15d-e8d873 [facility] last visit 8ht797 As soc , [facility] allergies 128j0184-6 12/05 12/05 NE Primary not any de4-4e63- Prim rekha Care better from ef4-b90fd0 [facility] last visit dd4b60 As soc , [facility] allergies 2n011icj-1 12/05 12/05 NE Primary not any 505-4508- Prim rekha Care better from e2t-299q2x [facility] last visit 3a91ef [facility] , [place] [facility] allergies 7me347c5-4 12/05 12/05 NE Primary not any 6bb-4bd2- Prim rekha Care better from 876-jgg481 [facility] last visit 800d01 [facility] , [place] [facility] allergies xq05k5sq-1 12/05 12/05 NE Primary not any 8o1-1n80-5 Prim rekha Care better from 251-ad1eac [facility] last visit 146dc6 [facility] , [place] [facility] allergies 65u12b64-9 12/05 12/05 NE Primary not any cc7-4b19-a Prim rekha Care better from i40-4eya38 [facility] last visit 1ei682 [facility] , [place] [facility] allergies t94bh4x7-o 12/05 12/05 NE Primary not any cd0-4163- /2013 Prim rekha Care better from 112-533ecf [facility] last visit 21562c As soc , [facility] 39vf0v76-b 12/22 12/22 NE Primary med refill 371-45c0-a /2013 P [facility] Care 73a-f72244 [facility] 1lu479 [facility] , [facility] l058r0iu-6 12/22 12/22 NE Primary med refill w8z-0754-8 P [facility] Care e2p-qz2y93 [facility] a6ee6c [facility] , [facility] n23efu4g-2 12/22 12/22 NE Primary med refill q1v-07os-i /2013 P [facility] 7u2-r1kwo9 [facility] dbf5fc [facility] , [facility] vq46y666-4 12/22 12/22 NE Primary med refill a32-0990-y /2013 P [facility] fc8-909498 [facility] 7395d7 [facility] , [facility] rg31997l-7 12/22 12/22 NE Primary med refill 569-455e-b /2013 P [facility] 29a-543389 [facility] aadfb2 [facility] , [facility] o02761vc-7 12/22 12/22 NE Primary med refill fe8-4604- P [facility] dfe-t51418 [facility] 7d1f83 [facility] , [facility] b7b559k8-6 12/22 12/22 NE Primary med refill 295-4f89-b /2013 [facility] l2r- [facility] 5a5afb [facility] , [facility] kci15kmt-0 12/22 12/22 NE Primary med refill 583-4f63- P [facility] da3-ubm136 [facility] 711fe4 [facility] , [facility] egpou1sh-0 12/22 12/22 NE Primary med refill 668-4933-8 /2013 P [facility] cc3-3366c7 [facility] 744f07 [facility] , [facility] e38s6474-1 12/22 12/22 NE Primary med refill 009-4126-9 /2013 P [facility] fa4-a5ea62 [facility] 00ae78 [facility] , [facility] 73sto00z-7 12/22 12/22 NE Primary med refill 9p5-2z69-l /2013 P [facility] t90-76nb7o [facility] a65ee6 [facility] , [facility] q5pohzif-6 12/22 12/22 NE Primary med refill 8ef-44dd-b /2013 P [facility] 136-bff5c2 [facility] [id number] [facility] , [facility] c1i6c86j-3 12/22 12/22 NE Primary med refill 143-4305-b /2013 P [facility] 87a-8x1702 [facility] 1383eb [facility] , [facility] z7op1w5u-1 12/22 12/22 NE Primary med refill f64-9s5n-n /2013 P [facility] h89-5560o7 [facility] 1a1dd2 [facility] , [facility] a1o811h9-v 12/22 12/22 NE Primary med refill 6ba-49d9-8 /2013 P [facility] 25b-25857d [facility] 3710ef [facility] , [facility] 926wf0jp-t 12/22 12/22 NE Primary med refill 515-40c8-b /2013 P [facility] 149-c648b9 [facility] a9z375 [facility] , [facility] b7n0036f-3 12/22 12/22 NE Primary med refill 1fb-49e3-b /2013 [facility] aaf-325ba2 [facility] c4bb9c [facility] , [facility] 721b3682-2 12/22 12/22 NE Primary med refill q92-1435-k /2013 [facility] fa8-c9a6b3 [facility] 35324i [place] , [place] [facility] 02dn34tm-z 12/22 12/22 NE Primary med refill fe2-48c0-b /2013 [facility] 69e-yfe415 [facility] 3a9fc5 [place] , [place] [facility] 880e86uf-8 12/22 12/22 NE Primary med refill i2j-2l0t-4 /2013 [facility] 972-c5471j [facility] a83b2a [place] , [place] [facility] q9013e28-9 12/22 12/22 NE Primary med refill 81a-435c-a /2013 [facility] 4d1-5408n4 [facility] 59e30d [place] , [place] [facility] 6vw7nv17-t 12/22 12/22 NE Primary med refill 863-4215-9 P [facility] z3t-x47os5 [facility] 859f6f [place] , [place] [facility] 79907512-6 12/22 12/22 NE Primary med refill 71c-4879-9 /2013 P [facility] j84-753241 [facility] t1111y [place] , [place] [facility] n69t77a5-7 12/22 12/22 NE Primary med refill a18-22vr-a /2013 [facility] 10b-5a5da1 [facility] [id number] [place] , [place] [facility] 644t84y5-6 12/22 12/22 NE Primary med refill 199-44bb-a /2013 [facility] [id number] [facility] 051f0c [facility] , [facility] 0202i22k-d 12/22 12/22 NE Primary med refill f86-5146-5 /2013 [facility] 332-500c6b [facility] bbf65d [place] , [place] [facility] yxim5e4m-4 12/22 12/22 NE Primary med refill 549-43eb-a /2013 [facility] 864-90d2fd [facility] 62b8a2 [place] , [place] [facility] 7l8dj9v0-0 12/22 12/22 NE Primary med refill fe8-486b- P [facility] 196-p6d018 [facility] c8a59c [facility] , [facility] 515k53k8-6 12/22 12/22 NE Primary med refill j18-6qjw-7 [facility] o6x-9510lo [facility] a2f4e7 [facility] , [facility] 69642f68-e 12/22 12/22 NE Primary med refill 17a-498b- P [facility] 6u6-ji1242 [facility] 6d8a28 [facility] , [facility] s051g83j-7 12/22 12/22 NE Primary med refill 3k0-4621-2 P [facility] 882-19896h [facility] [id number] [facility] , [facility] 6bll7u2n-6 12/22 12/22 NE Primary med refill 51e-46b8- P [facility] 459-bip799 [facility] c1a1fb [facility] , [facility] 2464n904-0 12/22 12/22 NE Primary med refill ebd-4ac8- P [facility] 15d-59878h [facility] 05c6d6 [facility] , [place] [facility] Refills must 333128c5-0 12/29 12/29 NE Primary go through 5e9-7049-2 [facility] eef-63c77b [facility] scripts e2cefc [facility] , [place] [facility] Refills must 7899r1vz-0 12/29 12/29 NE Primary go through 38c-4efe- [facility] fb0-db5f9d [facility] f6a49a [facility] , [place] [facility] Refills must 49v2nc9z-0 12/29 12/29 NE Primary go through ce4-40ef-b [facility] 858-e305b0 [facility] scripts 7d31b6 [facility] , [place] [facility] Refills must 2e302c15-7 12/29 12/29 NE Primary go through arlene-443e-a /2013 [facility] 9k8-943868 [facility] scripts 6d37e0 [facility] , [place] [facility] Refills must 3z6sk759-6 12/29 12/29 NE Primary go through 1cb-41a0-b [facility] 2h1-on76j7 [facility] 66be72 [facility] , [place] [facility] Refills must 79kx0t6k-n 12/29 12/29 NE Primary go through m0c-1ot3-k [facility] s7c-h827b0 [facility] cac46d [facility] , [place] [facility] Refills must 7u571585-0 12/29 12/29 NE Primary go through 207-4ec7-8 [facility] 6n0-436857 [facility] ff55ef [facility] , [place] [facility] Refills must o3b552qj-7 12/29 12/29 NE Primary go through 318-4ead-8 [facility] 3y0-3v2z06 [facility] [id number] [facility] , [place] [facility] Refills must 077iiu67-1 12/29 12/29 NE Primary go through i1g-30y0-0 [facility] 491-c76f3b [facility] ae6b49 [facility] , [place] [facility] Refills must 175p7775-c 12/29 12/29 NE Primary go through 744-439e-9 [facility] 6n7-524422 [facility] [id number] [facility] , [place] [facility] Refills must 05d2512f-8 12/29 12/29 NE Primary go through 618-441c-b [facility] 06a-px3259 [facility] ra764j [facility] , [place] [facility] Refills must 50iwdj39-6 12/29 12/29 NE Primary go through 9k4-4w8p-q [facility] 837-4f9c6d [facility] 104c0d [facility] , [place] [facility] Refills must 79h9568a-d 12/29 12/29 NE Primary go through h5g-0187-y [facility] i58-2o755u [facility] fbf78b [facility] , [place] [facility] Refills must 9875fe0o-7 12/29 12/29 NE Primary go through 507-4916-9 [facility] x86-812415 [facility] 14dd0d [facility] , [place] [facility] Refills must 628frv43-3 12/29 12/29 NE Primary go through 603-464b-b [facility] 3de-z96948 [facility] 2d1ac4 [facility] , [place] [facility] Refills must 506bk840-p 12/29 12/29 NE Primary go through i65-2lv1-g [facility] 25e-b4v846 [facility] [id number] [facility] , [place] [facility] Refills must 7467c4u4-s 12/29 12/29 NE Primary go through 9j6-1814-5 [facility] 07f-830d2f [facility] 13ae1d [facility] , [place] [facility] Refills must 54h20m9d-5 12/29 12/29 NE Primary go through 21b-4e20- [facility] 4ff-8118f6 [facility] 334cff [facility] , [place] [facility] Refills must 7ry1z315-9 12/29 12/29 NE Primary go through v8v-333j-5 [facility] z40-458320 [facility] 5abd1f [facility] , [place] [facility] Refills must xi6y6423-8 12/29 12/29 NE Primary go through cb8-4c7e-b [facility] b17-wm1ft4 [facility] [id number] [facility] , [place] [facility] Refills must 936r8763-k 12/29 12/29 NE Primary go through 533-4080-8 [facility] s58-8e8348 [facility] c9c0ee [facility] , [place] [facility] Refills must -6 12/29 12/29 NE Primary go through 9da-4804- [facility] n9o-9i1705 [facility] c3b5d3 [facility] , [facility] Refills must 768a6v70-v 12/29 12/29 NE Primary go through 8da-44e5-9 [facility] 038-738ede [facility] 6dd9ca [facility] , [facility] Refills must 05y24u89-o 12/29 12/29 NE Primary go through 808-4a9f-b /2013 [facility] 9e4-24r2v9 [facility] f5fff9 [facility] , [place] [facility] Refills must 430577uc-7 12/29 12/29 NE Primary go through 4s1-8781-5 [facility] 759-cb11c9 [facility] [id number] [facility] , [place] [facility] Refills must 58r1fp67-7 12/29 12/29 NE Primary go through 1k7-2x39-8 [facility] 4bc-7fbf3b [facility] 1107ba [facility] , [place] [facility] Refills must 411a3995-7 12/29 12/29 NE Primary go through 420-456f- [facility] 2dd-4b1f04 [facility] ee4f1a [facility] , [place] [facility] Refills must 029o4855-7 12/29 12/29 NE Primary go through 2g6-14d7-n /2013 [facility] 9x6-8in482 [facility] [id number] [facility] , [facility] Refills must p82wh913-g 12/29 12/29 NE Primary go through q72-2877-i /2013 [facility] 676-82144o [facility] [id number] [facility] , [place] [facility] Refills must 36g4ygj1-x 12/29 12/29 NE Primary go through dc9-4e77-a /2013 [facility] z5v-293405 [facility] c70eec [facility] , [place] [facility] Ref[facility] must 8o2e87r9-3 12/29 12/29 NE Primary go through 37e-4b4c-a /2013 [facility] bc6-67m373 [facility] 8a62a6 [facility] , [facility] Refills must 1gv498c2-1 12/29 12/29 NE Primary go through 704-4049-b /2013 [facility] 92c-9nk188 [facility] 44c1f7 [facility] , [place] [facility] Refills must [id number]-a 12/29 12/29 NE Primary go through 50b-40c2-8 /2013 [facility] cb9-5305cd [facility] c76d4a [facility] , [place] [facility] Refills must g00vi89v-0 12/29 12/29 NE Primary go through 725-40e7- [facility] 2l5-81gp33 [facility] [id number] [facility] , [facility] Refills must 317s5482-7 12/29 12/29 NE Primary go through 879-443b- [facility] 879-f1b62f [facility] b47e00 [facility] Pen needles 1j2e32ia-b 01/08 01/08 NE Primary refill o0j-9924-q /2013 Prima [facility] Care request [id number] [facility] [id number] [facility] 469u1203-3 01/08 01/08 NE Primary refill 2ea-49b9-b /2013 Pr[facility] Care request [id number]-dc2a7e [facility] a7cba0 [facility] , [place] [facility] 9407befa-a 01/08 01/08 NE Primary refill 8ab-4795-8 /2013 Pr[facility] Care request 950-4a090g [facility] [id number] [facility] 2jdr76z5-7 01/08 01/08 NE Primary refill f72-3h0n-j /2013 Pr[facility] Care request [id number] [facility] 5ae3e3 [facility] 0ws6w290-c 01/08 01/08 NE Primary refill 369-4d85-a /2013 Prima [facility] Care request [id number] [facility] [id number] [facility] 79pjb212-5 01/08 01/08 NE Primary refill 4cb-4a18-b /2013 Pr[facility] Care request [id number] [facility] b627f7 [facility] g571ucd0-5 01/08 01/08 NE Primary refill 903-48e6-a /2013 Pr[facility] Care request 4n5-81y76p [facility] f293d0 [facility] c8iza159-s 01/08 01/08 NE Primary refill ba3-4c6e-a /2013 Prima [facility] Care 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 [facility] c73f7f [facility] 024a84mf-n 01/08 01/08 NE Primary refill 1n4-940s-y /2013 Pr[facility] Care request [id number] [facility] 2ebf2f [facility] [id number] 01/08 01/08 NE Primary refill 66a-487b-b /2013 Pr[facility] Care request [id number] [facility] b33ce2 [facility] y92fq1kr-5 01/08 01/08 NE Primary refill 7fa-4d01-b /2013 Pr[facility] Care request [id number] [facility] [id number] [facility] h0v03l71-2 01/08 01/08 NE Primary refill 4q4-8fb2-9 /2013 Pr[facility] Care request [id number] [facility] f78d77 [facility] 09p0wmod-q 01/08 01/08 NE Primary refill s44-2q5s-f /2013 Pr[facility] Care request [id number]-36fcf3 [facility] e8p205 [facility] zp1p0s6c-8 01/08 01/08 NE Primary refill 847-431e-8 /2013 Pr[facility] Care request z32-[id number] [facility] 701e0a [facility] 5g54j4bn-m 01/08 01/08 NE Primary refill 897-461d-b /2013 Pr[facility] Care request [id number] [facility] 463a8b [facility] qf42585c-4 01/08 01/08 NE Primary refill 58c-4c89-b /2013 [facility] Care request [id number] [facility] 6d0ff0 [facility] q89y7zg0-2 01/08 01/08 NE Primary refill 036-4d16-a /2013 [facility] Care request [id number]-[id number] [facility] 4c8ddf [facility] 70887y45-6 01/08 01/08 NE Primary refill fbe-487c-8 /2013 [facility] Care request fda-dd90f1 [facility] [id number] [facility] [id number]-o 01/08 01/08 NE Primary refill j07-9j38-4 /2013 Pr[facility] Care request [id number] [facility] [id number] [facility] q5h790ee-x 01/08 01/08 NE Primary refill k8d-8279-5 /2013 Pr[facility] Care request [id number] [facility] [id number] [facility] g528x4f7-d 01/08 01/08 NE Primary refill c77-2w09-y /2013 Pr[facility] Care request [id number] [facility] 4bc04e [facility] [id number] 01/08 01/08 NE Primary refill k45-528m-v /2013 [facility] Care request [id number] [facility] 61ea1e [facility] [id number] 01/08 01/08 NE Primary refill 6m7-76hi-g /2013 Pr[facility] Care request [id number]-[id number] [facility] 5b93c7 [facility] 19j495wy-h 01/08 01/08 NE Primary refill c6t-4571-7 /2013 [facility] Care request [id number] [facility] 49e92c [facility] 3x330a9o-x 01/08 01/08 NE Primary refill 997-41ab-b /2013 Pr[facility] Care request [id number] [facility] [id number] [facility] zylt50k8-0 01/08 01/08 NE Primary refill eb1-4a8e-b /2013 Pr[facility] Care request [id number] [facility] [id number] [facility] [id number]-9 01/08 01/08 NE Primary refill 9f5-664g-5 /2013 Pr[facility] Care request [id number]-w03ji6 [facility] [id number] [facility] 6e7961yh-5 01/08 01/08 NE Primary refill 1aa-42a2-9 /2013 [facility] Care request [id number] [facility] 4b11a6 [facility] 3322aj3q-f 01/08 01/08 NE Primary refill [id number] /2013 [facility] [id number] [facility] [id number] [id number] 01/08 01/08 [facility] refill [id number] /2013 [facility] [id number] [facility] [id number] [facility] [id number] 01/08 01/08 [facility] refill [id number] /2013 [facility] [id number] [facility] [id number] [facility] [id number] 01/08 01/08 [facility] refill [id number] /2013 [facility] [id number] [facility] [id number] [facility] [id number] 01/08 01/08 [facility] refill [id number] /2013 [facility] [id number] [facility] [facility] [id number] [facility] [place] [facility] [id number] 01/08 01/08 NE Primary eb5-419c- /2013 [facility] r[facility]m-86bm60 [facility] 6es300 [facility] [place] [facility] [id number] 01/08 01/08 [facility] 2ed-40d7-b /2013 [facility] r5a-g11q91 [facility] 1777a3 [facility] [place] [facility] [id number] 01/08 01/08 [facility] 3s7-3651-o /2013 [facility] w47-3z0h81 [facility] 9a49f4 [facility] [place] [facility] [id number] 01/08 01/08 NE [facility] 818-44ce-a /2013 [facility] 68f-q6g438 [facility] [id number] [facility] [place] [facility] [id number] 01/08 01/08 NE [facility] 5g2-4x42-o /2013 [facility] 719-180c3a [facility] 8ef9db [facility] [place] [facility] [id number] 01/08 01/08 NE [facility] d4u-9x00-m /2013 [facility] 3f8-dvplod [facility] 778c7b [facility] [place] [facility] 05s93p2m-2 01/08 01/08 [facility] 010-4a65- [facility] 759-2nu748 [facility] 726c45 [facility] [place] [facility] [id number] 01/08 01/08 [facility] 46e-491a- [facility] 853-f05c6c [facility] 90b9ca [facility] [place] [facility] [id number] 01/08 01/08 NE [facility] 5ed-472b- [facility] 910-4cc3a1 [facility] e48ec3 [facility] [place] [facility] [id number] 01/08 01/08 NE [facility] 34a-4f57-8 [facility] z76-79f42x [facility] 6u981o [facility] [place] [facility] 3c0my75w-6 01/08 01/08 NE [facility] t14-5j07-6 /2013 [facility] c04-p3470c [facility] ae09e3 [facility] [place] [facility] [id number]-1 01/08 01/08 NE [facility] 908-4a87- [facility] 3ab-mkb663 [facility] [id number] [facility] [place] [facility] [id number] 01/08 01/08 NE Primary 54b-43ce-b /2013 [facility] [id number] [facility] 4224a9 [facility] [place] [facility] [id number] 01/08 01/08 NE [facility] y8f-8nsk-9 /2013 [facility] fb5-065d76 [facility] a365b2 [facility] [place] [facility] [id number] 01/08 01/08 NE [facility] 002-44fd-8 /2013 [facility] 494-1f68f3 [facility] 338a05 [facility] [place] [facility] [id number]-g 01/08 01/08 NE [facility] ae9-4f3c-b /2013 [facility] 15d-5886ea [facility] 3cdb3a [facility] [place] [facility] [id number] 01/08 01/08 NE Primary cc6-4dcf-a /2013 [facility] t8i-5f767k [facility] b7ac2b [facility] [place] [facility] [id number] 01/08 01/08 NE [facility] 557-40b6- [facility] e3v-hxk293 [facility] d8f72e [facility] [place] [facility] [id number] 01/08 01/08 NE [facility] d03-9e1x-2 [facility] 3dc-21ae1c [facility] [id number] [facility] [place] [facility] [id number] 01/08 01/08 NE Primary 19b-4463- [facility] ee2-438c81 [facility] 67654e [facility] [place] [facility] [id number] 01/08 01/08 NE Primary 39f-412a- [facility] be0-594da3 [facility] [id number] [facility] [place] [facility] [id number]-[id number] 01/08 01/08 NE Primary 0cb-43f3-b /2013 [facility] 5e0-8f66b9 [facility] 5e81ba [facility] [place] [facility] [id number] 01/08 01/08 NE Primary 030-4708-8 /2013 [facility] z8y-di665d [facility] 74fb46 [facility] [place] [facility] [id number] 01/08 01/08 NE Primary 2bd-42c5-b /2013 [facility] 4p2-i9vb9j [facility] 2c3b73 [facility] [place] [facility] [id number] 01/08 01/08 NE Primary 8u1-478m-5 /2013 [facility] 556-9397f9 [facility] cceb44 [facility] [place] [facility] [id number]-[id number] 01/08 01/08 NE Primary bd3-4e9d-8 /2013 [facility] 772-6459fe [facility] 546b3b [facility] [place] [facility] [id number] 01/08 01/08 NE Primary 7k8-470u-r /2013 [facility] 29f-ca36e7 [facility] 8e3c46 [facility] [place] [facility] [id number] 01/08 01/08 NE Primary bd9-4177- /2013 [facility] 6cf-9985fe [facility] 3df0a3 [facility] [place] [facility] 1qyg92x3-[id number] 01/08 01/08 NE Primary 9a9-71mi-9 /2013 [facility] 85f-3e98cd [facility] ed98e5 [facility] [place] [facility] [id number]-9 01/08 01/08 NE Primary 6z5-1k38-v /2013 [facility] 5h6-07elah [facility] c427b8 [facility] [place] [facility] [id number]-8 01/08 01/08 NE Primary c8z-9442-m /2013 [facility] 827-e86dba [facility] 0b19ec [facility] [place] [facility] [id number] 01/08 01/08 NE Primary 063-4475-a /2013 [facility] ffe-oq441p [facility] [id number] [facility] [place] [facility] [id number] 01/08 01/08 NE Primary 876-4cf4-b /2013 [facility] 0j7-088898 [facility] f8bac1 [facility] [id number]-x 03/16 03/16 NE Primary medication 34f-4d68-b /2013 [facility] 186-19ad5b [facility] [id number] [facility] [place] [facility] b36ve3xh-7 03/16 03/16 NE Primary medication 759-4ccb-b /2013 [facility] 120-846f89 [facility] [id number] [facility] [place] [facility] 79to0033-9 03/16 03/16 NE Primary medication 045-4d5f- [facility] 6ae-6c4f19 [facility] 9kw716 [facility]-Up 481b4es1-q 03/16 03/16 NE Primary medication de0-42d6- [facility] c97-uihu00 [facility] bab6f1 [facility]-Up [id number] 03/16 03/16 NE Primary medication 326-42c3-a /2013 [facility] dcf-7vc200 [facility] [id number] [facility]Up [id number]-c 03/16 03/16 NE Primary medication 568-49ce- [facility] 316-98c6ad [facility] 027c12 [facility]-Up [id number]-r 03/16 03/16 NE Primary medication 562-47c9- [facility] 608-97acb1 [facility] 6d913o [facility]-Up 3lo9iqt3-9 03/16 03/16 NE Primary medication 9ff-4005-a /2013 [facility] 43d-c61f9d [facility] 82f24c [facility]-Up 4i9s36e9-g 03/16 03/16 NE Primary medication 68a-4552- [facility] 0bf-571964 [facility] c58e54 [facility]-Up d06pv9i5-9 03/16 03/16 NE Primary medication fb6-4664-a /2013 [facility] ccd-70cd80 [facility] [id number] [facility] [place] [facility] d5j789p8-1 03/16 03/16 NE Primary medication 90b-43e1-a /2013 [facility] 5b9-1109q4 [facility] 2f89a9 [facility]-Up [id number]-6 03/16 03/16 NE Primary medication 0c3-3o48-h /2013 [facility] 92d-0zu309 [facility] dcd34b [facility]-Up c07ubsg3-1 03/16 03/16 NE Primary medication 230-4982-b /2013 [facility] 38e-k8586j [facility] 57da96 [facility]-Up 04g484m4-g 03/16 03/16 NE Primary medication 437-47d3-a /2013 [facility] bb2-oz8183 [facility] 8ca86b [facility]-Up v02u1bvk-7 03/16 03/16 NE Primary medication 397-4741-8 [facility] d18-7m40o2 [facility] d8bedb [facility]-Up mcip5n46-c 03/16 03/16 NE Primary medication fb6-4797- [facility] 0e7-944a9c [facility] 63bca5 [facility]-Up [id number] 03/16 03/16 NE Primary medication r3r-6q1q-n /2013 [facility] 6db-7945ac [facility] 0c4f03 [facility]-Up 77quc06o-9 03/16 03/16 NE Primary medication 7e4-6g3a-9 [facility] x46-4t9277 [facility] [id number] [facility] [place] [facility]-Up a366zbg4-h 03/16 03/16 NE Primary medication d3u-511t-1 [facility] q02-0h9697 [facility] f9de5e [facility]-Up 8d8xmmni-5 03/16 03/16 NE Primary medication t9t-672v-5 [facility] 56e-e817b1 [facility] [id number] [facility]-Up [id number] 03/16 03/16 NE Primary medication 819-4964-a /2013 [facility] 2df-6ca27d [facility] 9f1beb [facility]-Up q2llqag4-7 03/16 03/16 NE Primary medication n0j-10gx-3 /2013 [facility] 01b-020eac [facility] ae3e79 [facility]-Up 83a30f91-u 03/16 03/16 NE Primary medication k01-9p2z-8 [facility] aee-f3ee33 [facility] af7ec6 [facility]-Up 5904aq07-7 03/16 03/16 NE Primary medication faa-4da7- [facility] 3f6-8ucyl3 [facility] 0dfbba [facility] , [place] [facility]-Up 590h0co9-6 03/16 03/16 NE Primary medication 4dc-4c6b-b /2013 [facility] 8q7-lsa0s4 [facility] 93c58f [facility]-Up 367kh567-6 03/16 03/16 NE Primary medication 07d-4c20- [facility] j42-651e1o [facility] dy0178 [facility]-Up [id number] 03/16 03/16 NE Primary medication h2u-7ss6-2 [facility] 013-f2b89b [facility] 29efab [facility]-Up 2v28amo9-5 03/16 03/16 NE Primary medication g83-607i-t /2013 [facility] n55-385r69 [facility] u9c736 [facility]-Up [id number]-p 03/16 03/16 NE Primary medication 7i0-5161-w /2013 [facility] 411-8d4006 [facility] 52d236 [facility]-Up 0p984jm3-d 03/16 03/16 NE Primary medication x36-86u0-t /2013 [facility] 117-554c8b [facility] [id number] [facility] [place] [facility] 7foaf8e3-v 03/18 03/18 NE Primary Naproxen 1ac-474c-a /2013 [facility] 627-fcf74b [facility] 72d71c [facility] [place] [facility] on 0fiw26g8-x 03/18 03/18 NE Primary Naproxen m71-46ug-p /2013 [facility] 607-0eaf69 [facility] 911c6a [facility] [place] ref[facility] on 323w3uq5-5 03/18 03/18 NE Primary Naproxen 615-4cfb-b /2013 [facility] t79-1g132d [facility] d8d2fd [facility] [place] ref[facility] [place] 258t654w-o 03/18 03/18 NE Primary Naproxen ded-407f-9 /2013 [facility] 1af-f4b0fb [facility] 4f1b54 [facility] [place] [facility] ref[facility] [place] 18i3858a-h 03/18 03/18 NE Primary Naproxen 6x3-48vj-f /2013 [facility] 95b-e07a22 [facility] 6b6d77 [facility] [place] [facility] ref[place] on 72444206-0 03/18 03/18 NE Primary Naproxen 444-4561-9 [facility] 35b-bd3bcf [facility] 72891b [facility] [place] ref[facility] [place] 9r37vo16-2 03/18 03/18 NE Primary Naproxen t21-0h58-t /2013 [facility] 3db-df3da4 [facility] 5d7fad [facility] [place] [facility] [place] e7b1oer2-k 03/18 03/18 NE Primary Naproxen f51-1929-r /2013 [facility] s3r-i8ba4l [facility] i7995l [facility] [place] [facility] [place] jh8y06y5-6 03/18 03/18 NE Primary Naproxen kalyani-499a-9 /2013 [facility] r98-483j56 [facility] [id number] [facility] [place] ref[place] on 993078tc-4 03/18 03/18 NE Primary Naproxen fb5-4186-a /2013 [facility] db7-5bfa66 [facility] 19d4f1 [facility] [place] [facility] [place] 4rxh059n-3 03/18 03/18 NE Primary Naproxen n19-7846-u /2013 [facility] bf9-924086 [facility] 5031d4 [facility] [place] [facility] [place] 46w375za-u 03/18 03/18 NE Primary Naproxen j8f-7iix-2 /2013 [facility] 29b-3m222t [facility] 9324e0 [facility] [place] [facility] [place] 23uw72ox-5 03/18 03/18 NE Primary Naproxen 194-4d93-9 [facility] 4aa-6dd8f1 [facility] g1q809 [facility] [place] [facility] ref[place] on 545210q4-2 03/18 03/18 NE Primary Naproxen 185-41e7-b /2013 [facility] j40-aux81t [facility] 3342a4 [facility] [place] [facility] on 3355q057-x 03/18 03/18 NE Primary Naproxen 9t2-05f5-7 [facility] z1t-94063y [facility] jng898 [facility] [place] ref[facility] [place] 8oaz8611-y 03/18 03/18 NE Primary Naproxen 6fc-42ce-b /2013 [facility] 61d-76s761 [facility] d39beb [facility] [place] ref[facility] [place] jym4gh2i-a 03/18 03/18 NE Primary Naproxen 230-4934-a /2013 [facility] 209-f20215 [facility] b21d38 [facility] [place] ref[place] on 140599no-7 03/18 03/18 NE Primary Naproxen 768-4dc6-8 /2013 [facility] 5bc-7a27f1 [facility] 9100c7 [facility] [place] ref[facility] [place] byk5l4em-1 03/18 03/18 NE Primary Naproxen g1e-3yb2-8 /2013 [facility] v14-e3j20u [facility] 2dc11c [facility] [place] [facility] [place] 2jf8d810-8 03/18 03/18 NE Primary Naproxen 294-4e73-b /2013 [facility] k03-50o03n [facility] 27701w [facility] [place] [facility] [place] 44g49uu1-7 03/18 03/18 NE Primary Naproxen 0e7-20k1-4 /2013 [facility] 42a-9z411m [facility] er3145 [facility] [place] [facility] [place] 9oho7gfl-3 03/18 03/18 NE Primary Naproxen 9b8-4cu5-9 /2013 [facility] 4n6-16e778 [facility] 0712bf [facility] [place] [facility] [place] m9fz7537-0 03/18 03/18 NE Primary Naproxen 64e-4452-b /2013 [facility] x21-60x8ec [facility] 1398ca [facility] [place] [facility] [place] 21jas9lb-d 03/18 03/18 NE Primary Naproxen 1ae-44be-8 /2013 [facility] 96a-d22b63 [facility] aebb0d [facility] [place] ref[facility] [place] i8644u1q-5 03/18 03/18 NE Primary Naproxen m61-38mf-c /2013 [facility] 867-ex2137 [facility] [id number] [facility] [place] ref[place] 5p2843f3-k 03/18 03/18 NE Primary Naproxen ce0-47bc-8 [facility] 729-a9m931 [facility] 3ae9ab [facility] [place] ref[facility] [place] 9ws0w3a0-5 03/18 03/18 NE Primary Naproxen 0da-4390-9 [facility] f92-64k57r [facility] ab79d6 [facility] [place] ref[facility] [place] 3763ui48-4 03/18 03/18 NE Primary Naproxen 09c-4760-8 /2013 [facility] 689-d9f03e [facility] f22f7d [facility] [place] [facility] on [id number] 03/18 03/18 NE Primary Naproxen x5m-6329-6 /2013 [facility] 323-9e20a4 [facility] b192fa [facility] [place] [facility] [place] s4t771gj-1 03/18 03/18 NE Primary Naproxen 018-4472-8 /2013 [facility] 3a5-i7s9me [facility] [id number] [facility] [place] poss UTI 5847yk2i-5 04/16 04/16 N E Primary 9de-4d11-b /2013 [facility] 684-g9u230 [facility] 3291d0 [facility] [place] poss UTI 345g6sd4-b 04/16 04/16 N E Primary 193-4087-b /2013 [facility] o54-u31y39 [facility] 013b23 [facility] [place] poss UTI f936rf76-c 04/16 04/16 N E Primary 289-4625- /2013 [facility] 13f-99b51b [facility] 66629w [facility] [place] poss UTI 6t7pqd22-y 04/16 04/16 N E Primary cf5-47d9-b /2013 [facility] a5t-521550 [facility] b9ad30 [facility] [place] [facility] UTI tm9449fg-3 04/16 04/16 N E Primary t94-601b-0 [facility] 84d-12y181 [facility] [place] [facility] UTI 18lz34s1-1 04/16 04/16 N E Primary 479-4e13- [facility] 521-7k192p [facility] 52421c [facility] [place] poss UTI qp01ef1c-o 04/16 04/16 N E Primary 7ce-4f95-8 /2013 [facility] t79-44ap09 [facility] f72b74 [facility] [place] poss UTI [id number] 04/16 04/16 N E Primary 2cc-4cb4- [facility] j47-358512 [facility] 91d97a [facility] [place] poss UTI 7uaicq0k-8 04/16 04/16 N E Primary 933-48b5-b /2013 [facility] 00d-961089 [facility] 223ffb [facility] [place] poss UTI 1xq696v6-4 04/16 04/16 N E Primary 721-41f4-9 /2013 [facility] 58c-0c38dd [facility] 35f3a5 [facility] [place] poss UTI 5ar0o4at-1 04/16 04/16 N E Primary fbd-475f-a /2013 [facility] w29-780358 [facility] c2add7 [facility] poss UTI 88iyn782-l 04/16 04/16 N E Primary 103-43b1-8 /2013 [facility] o81-0787ub [facility] 5983c3 [facility] poss UTI [id number] 04/16 04/16 N E Primary g7z-672z-n /2013 [facility] 921-7f36c7 [facility] 17fd66 [facility] [place] [facility] UTI 017c46f6-0 04/16 04/16 N E Primary 43b-498e-b /2013 [facility] 4s4-p2o739 [facility] 7a26f6 [facility] poss UTI [id number] 04/16 04/16 N E Primary 60b-4e2e-a /2013 [facility] bb3-9afa05 [facility] qs702g [facility] poss UTI q0106j6r-q 04/16 04/16 N E Primary 68a-4783-a /2013 [facility] eb8-450ede [facility] ec05d0 [facility] poss UTI [id number] 04/16 04/16 N E Primary ae3-43a0-a /2013 [facility] 091-66a82d [facility] 914fa2 [facility] poss UTI [id number]-e 04/16 04/16 N E Primary z26-2897-1 [facility] 53d-58ba65 [facility] 79663x [facility] poss UTI r1z9n21u-2 04/16 04/16 N E Primary 645-41f0- [facility] 327-c5ba57 [facility] 0b65ab [facility] poss UTI [id number] 04/16 04/16 N E Primary 354-4fd2- [facility] 569-ie7220 [facility] d4cb0a [facility] poss UTI [id number] 04/16 04/16 N E Primary ff3-421e- [facility] fc6-2j8456 [facility] 299de2 [facility] [place] [facility] [id number] 04/16 04/16 N E Primary 75b-427b- /2013 [facility] 29f-dc58ad [facility] 8a17b2 [facility] [place] poss UTI [id number] 04/16 04/16 N E Primary 12c-4df6-b /2013 [facility] l30-ydt92k [facility] 9a643z [facility] [place] poss UTI [id number] 04/16 04/16 N E Primary 5b7-15b6-4 /2013 [facility] 06f-adc7e5 [facility] [id number] [facility] [place] poss UTI [id number] 04/16 04/16 N E Primary ab5-4fac- [facility] 1de-5881d8 [facility] 6efba5 [facility] [place] poss UTI [id number]-d 04/16 04/16 N E Primary 97b-45d5- [facility] 7b6-985g59 [facility] ea6a54 [facility] [place] [facility] poss UTI [id number] 04/16 04/16 N E Primary s47-23cx-s /2013 [facility] 5u3-ym0366 [facility] 52fa59 [facility] [place] poss UTI 247r0i90-g 04/16 04/16 N E Primary x6m-9q37-l /2013 [facility] v0a-6f6k1b [facility] 385257 [facility] [place] [facility] b971r5qh-h 06/08 06/08 NE Primary fosamax 83e-40d2- [facility] 994-2596cf [facility] 591f94 [facility] [place] [facility] ref[facility] [place] [id number]-c 06/08 06/08 NE Primary fosamax 7y8-910f-8 [facility] v38-27r0t0 [facility] 0e9718 [facility] [place] [facility] ref[facility] [place] k5m35339-k 06/08 06/08 NE Primary fosamax 8o5-9v99-d [facility] af1-dcc05a [facility] 7ea4e3 [facility] [place] [facility] ref[facility] [place] 6m66cgs3-6 06/08 06/08 NE Primary fosamax 56d-4cd2-b /2013 [facility] 07f-431fa0 [facility] k3g672 [facility] [place] ref[facility] [place] 8o35gpl6-0 06/08 06/08 NE Primary fosamax q59-26j6-7 /2013 [facility] bab-bf21cc [facility] 1ecc68 [facility] [place] ref[facility] [place] 5b57a9t3-9 06/08 06/08 NE Primary fosamax 58d-4066-a /2013 [facility] w40-562dnt [facility] 30h393 [facility] [place] [facility] [place] h3685501-5 06/08 06/08 NE Primary fosamax 103-416f-a /2013 [facility] 05a-b5c47a [facility] 7bd6a9 [facility] [place] [facility] ref[facility] [place] 400770iy-n 06/08 06/08 NE Primary fosamax t9x-6o6m-0 /2013 [facility] 087-799215 [facility] 460952 [facility] [place] ref[facility] [place] 82zo984a-2 06/08 06/08 NE Primary fosamax ae0-4a50-9 /2013 [facility] ce3-40k252 [facility] 562c1a [facility] [place] ref[facility] [place] 39srzfg4-o 06/08 06/08 NE Primary fosamax 3y3-7u22-j /2013 [facility] 5d8-f5z26t [facility] 03b1b2 [facility] [place] [facility] ref[facility] [place] n8wv7660-9 06/08 06/08 NE Primary fosamax 3ac-4a0f-a /2013 [facility] o10-398r7m [facility] 98fb0a [facility] [place] [facility] ref[facility] [place] 92wsn225-4 06/08 06/08 NE Primary fosamax db5-4397-b /2013 [facility] 344-7b4abb [facility] p4k279 [facility] [place] ref[place] 7407f0c0-9 06/08 06/08 NE Primary fosamax 5c1-07c9-j /2013 [facility] 4x7-292pa0 [facility] 3cb38f [facility] [place] ref[facility] [place] 435maau3-e 06/08 06/08 NE Primary fosamax 4p1-221i-9 /2013 [facility] 527-98333t [facility] a407ee [facility] [place] [facility] [place] 00m178g9-e 06/08 06/08 NE Primary fosamax 88e-405c-a /2013 [facility] fc2-5feb40 [facility] 621db8 [facility] [place] [facility] ref[facility] [place] 4y1438vi-m 06/08 06/08 NE Primary fosamax 329-4978-9 /2013 [facility] 4bd-0qb476 [facility] db30a9 [facility] [place] [facility] ref[facility] [place] 0m172000-0 06/08 06/08 NE Primary fosamax 8cf-42d1-8 /2013 [facility] 74c-d1e8d9 [facility] 464d0c [facility] [place] [facility] ref[facility] f0q516i6-l 06/08 06/08 NE Primary fosamax 2o9-87rq-8 /2013 [facility] t98-mvf1yj [facility] a5d07d [facility] [place] [facility] ref[facility] [place] jb4113qp-7 06/08 06/08 NE Primary fosamax 9m8-9q87-m /2013 [facility] 32d-9a32a5 [facility] 0363e7 [facility] [place] [facility] ref[facility] [place] 95p90484-m 06/08 06/08 NE Primary fosamax 5n1-5657-1 /2013 [facility] 59f-102ac0 [facility] 960459 [facility] [place] [facility] rf5tk570-5 06/08 06/08 NE Primary fosamax kalyani-4641-8 /2013 [facility] w59-if580t [facility] d276f3 [facility] [place] [facility] [place] 8k7xq895-c 06/08 06/08 NE Primary fosamax 26d-410c-b /2013 [facility] n4h-9nc125 [facility] c4f5ec [facility] [place] [facility] 64s1iu9g-q 06/08 06/08 NE Primary fosamax def-4b53-9 /2013 [facility] 3bb-e04dbf [facility] 96fe06 [facility] [place] [facility] xw8i3etu-7 06/08 06/08 NE Primary fosamax 5h8-150g-i /2013 [facility] k39-mcr215 [facility] 2ddc0f [facility] [place] [facility] [place] 605n6o2q-7 06/08 06/08 NE Primary fosamax ef4-4c05-8 /2013 [facility] 89c-5u6621 [facility] [id number] [facility] [place] [facility] [place] wu2070fk-t 06/08 06/08 NE Primary fosamax ef7-4cdb-a /2013 [facility] 96d-219b46 [facility] p5240g [facility] [place] [facility] [place] 895e911w-6 06/08 06/08 NE Primary fosamax h92-3a1d-s /2013 [facility] caa-276bde [facility] fff97a [facility] [place] [facility] 29vad24f-h 07/13 07/13 NE Primary 4ba-420a-a /2014 [facility] o63-026547 [facility] [id number] [facility] [place] [facility] 502ep4ii-8 07/13 07/13 NE Primary 3x5-9rs7-a /2014 [facility] 5g5-gkjf71 [facility] 7043f8 [facility] [place] [facility] l92i37e6-s 07/13 07/13 NE Primary ddd-4370-8 /2014 [facility] 1af-eun660 [facility] 83e9a2 [facility] [place] [facility] bn42o011-3 07/13 07/13 NE Primary 169-4b1c-9 /2014 [facility] g25-b7191a [facility] a913bb [facility] [place] [facility] [id number] 07/13 07/13 NE Primary 815-46df-a /2014 [facility] 5r0-s01vg5 [facility] 7a1c6f [facility] [place] [facility] 71g6626l-0 07/13 07/13 NE Primary 15d-4eac-9 /2014 [facility] 54d-8e50d4 [facility] b08ecd [facility] [place] [facility] 533myfm8-7 07/13 07/13 NE Primary 855-477e-8 /2014 [facility] 71f-inp482 [facility] 9b68df [facility] [place] [facility] [id number] 07/13 07/13 NE Primary i19-90j6-f /2014 [facility] 9x7-b11018 [facility] cefe87 [facility] [place] [facility] [id number] 07/13 07/13 NE Primary [id number] /2014 [facility] [id number] [facility] [id number] [facility] [place] [facility] [id number] 07/13 07/13 [facility] [id number] /2014 [facility] [id number] [facility] [id number] [facility] [place] [facility] [id number] 07/13 07/13 [facility] [id number] /2014 [facility] [id number] [facility] [id number] [facility] [place] [facility] [id number] 07/13 07/13 [facility] [id number] /2014 [facility] [id number] [facility] [id number] [facility] [place] [facility] [id number] 07/13 07/13 [facility] [id number]-b /2014 [facility] [id number] [facility] [id number] [facility] [place] [facility] [id number] 07/13 07/13 [facility] [id number] /2014 [facility] [id number] [facility] [id number] [facility] [place] [facility] [id number] 07/13 07/13 [facility] [id number] /2014 [facility] [id number] [facility] [id number] [facility] [place] [facility] [id number] 07/13 07/13 [facility] [id number] [facility] [id number] [facility] [id number] [facility] [place] [facility] [id number] 07/13 07/13 [facility] [id number]-b /2014 [facility] [id number] [facility] [id number] [facility] [place] [facility] [id number] 07/13 07/13 [facility] [id number] /2014 [facility] [id number] [facility] [id number] [facility] [place] [facility] [id number] 07/13 07/13 [facility] [id number]-m /2014 [facility] [id number] [facility] [id number] [facility] [place] [facility] [id number] 07/13 07/13 [facility] [id number] /2014 [facility] [id number] [facility] [id number] [facility] [place] [facility] [id number] 07/13 07/13 [facility] [id number] /2014 [facility] [id number] [facility] [id number] [facility] [place] [facility] [id number] 07/13 07/13 [facility] [id number]-[id number] /2014 [facility] [id number]-trdbuh [facility] [id number] [facility] [place] [facility] [id number] 07/13 07/13 [facility] [id number] /2014 [facility] [id number] [facility] [id number] [facility] [place] [facility] [id number] 07/13 07/13 [facility] [id number] /2014 [facility] [id number] [facility] bf9ded [facility] [place] [facility] [id number] 07/13 07/13 [facility] cdc-[id number] /2014 [facility] [id number]-[id number] [facility] [id number] [facility] [place] [facility] [id number] 07/13 07/13 [facility] [id number]-[id number] /2014 [facility] [id number] [facility] [id number] [facility] [place] cold [id number] 07/17 07/17 [facility] [id number]-[id number]-b /2014 [facility] [id number]-[id number] [facility] [facility] [id number] [facility] , [facility] cold [id number] 07/17 07/17 NE Primary 85b-48aa-8 /2014 [facility] ae5-ae5f99 [facility] 01c50a [facility] , [facility] cold [id number] 07/17 07/17 NE Primary 40b-467e-8 /2014 [facility] m4x-h7952s [facility] fa9a86 [facility] , [facility] 2s51o1p7-4 07/17 07/17 NE Primary q64-560p-5 /2014 [facility] 9f8-18q612 [facility] 9a5eff [facility] , [facility] 572u6epp-2 07/17 07/17 NE Primary 4db-4ca8-9 /2014 [facility] 6dc-7004bb [facility] [id number] [facility] s94px796-o 07/17 07/17 NE Primary 9ec-40dc-b /2014 [facility] 8d8-44q3vc [facility] [id number] [facility] [id number] 07/17 07/17 NE Primary g08-87l2-6 /2014 [facility] h22-5mn8dx [facility] 18dee1 [facility] , [facility] [id number] 07/17 07/17 NE Primary y4i-150u-8 /2014 [facility] 9fd-aa6cd9 [facility] 016e6e [facility] , [facility] m13f1726-1 07/17 07/17 NE Primary j55-1h65-8 /2014 [facility] 526-38f4b4 [facility] [id number] [facility] , [facility] cold 30625q88-3 07/17 07/17 NE Primary 327-40b6-b /2014 [facility] 8k8-219775 [facility] [id number] [facility] , [facility] cold 4a59hj1s-u 07/17 07/17 NE Primary 0u4-1867-k /2014 [facility] 050-f393fa [facility] 0d70aa [facility] [place] [facility] t20z4fix-1 07/17 07/17 NE Primary 504-4a7c-8 /2014 [facility] aab-c179ea [facility] 404a26 [facility] [place] [facility] 6i39wwgq-j 07/17 07/17 NE Primary 9dc-44cd-a /2014 [facility] 3i1-m17n6n [facility] [id number] [facility] [place] [facility] 1715g15e-1 07/17 07/17 NE Primary fcc-49bc-a /2014 [facility] 870-02318z [facility] 7414b2 [facility] [place] [facility] 388rw038-2 07/17 07/17 NE Primary i6r-7gy9-3 /2014 [facility] f63-tr6qeh [facility] 894202 [facility] [place] [facility] 9to9q1i1-1 07/17 07/17 NE Primary t32-9773-a /2014 [facility] 311-f1f48d [facility] [id number] [facility] [place] [facility] w8f49078-6 07/17 07/17 NE Primary 2df-44c7-8 /2014 [facility] dd1-2rs617 [facility] 9f3c51 [facility] [place] [facility] o2x196t2-1 07/17 07/17 NE Primary 98d-45d1-a /2014 [facility] 2a1-739671 [facility] 2900b2 [facility] [place] [facility] drm689vx-q 07/17 07/17 NE Primary 627-4dfd-b /2014 [facility] 7ec-76c08e [facility] [id number] [facility] [place] [facility] 97r2727x-7 07/17 07/17 NE Primary fe9-43b9-8 /2014 [facility] g98-3a7u37 [facility] 7j0640 [facility] [place] [facility] 61813183-7 07/17 07/17 NE Primary g38-3703-9 /2014 [facility] 3dc-679a04 [facility] 2e32c4 [facility] [place] [facility] 5j34f84q-2 07/17 07/17 NE Primary bcf-4482-9 /2014 [facility] 9ef-w8a167 [facility] e82d86 [facility] [place] [facility] 314t8yp5-9 07/17 07/17 NE Primary j11-2008-7 /2014 [facility] 4bc-6a34c7 [facility] c92c6b [facility] [place] [facility] 20337q08-8 07/17 07/17 NE Primary 3v9-304r-y /2014 [facility] o3s-77a2wv [facility] 9fb5ac [facility] [place] [facility] ibm4r4f7-3 07/17 07/17 NE Primary a80-8jif-r /2014 [facility] 928-4dd39d [facility] 477cbd [facility] [place] [facility] 1q425h97-a 07/24 07/24 NE Primary j0u-02c0-1 /2014 [facility] 41a-7dfa1b [facility] [id number] [facility] [place] [facility] yfl41514-8 07/24 07/24 NE Primary 345-48f7-b /2014 [facility] 9h1-15m80p [facility] 91k032 [facility] [place] [facility] 8e98d3v2-e 07/24 07/24 NE Primary dc6-42ce-a /2014 [facility] 49a-0s9210 [facility] ak4765 [facility] [place] [facility] 4n4829pq-0 07/24 07/24 NE Primary 2z5-1038-4 /2014 [facility] o72-n5u59p [facility] 830fca [facility] [place] [facility] 3x53061r-w 07/24 07/24 NE Primary h42-8326-8 /2014 [facility] 839-9qm467 [facility] 9e3a0a [facility] [place] [facility] e46qxa2t-0 07/24 07/24 NE Primary 811-4402-b /2014 [facility] f8s-bf8639 [facility] f66b30 [facility] [place] [facility] h1zup3p7-z 07/24 07/24 NE Primary 731-415c-8 /2014 [facility] 9ea-3858bc [facility] 845e6d [facility] [place] [facility] a180foz6-0 07/24 07/24 NE Primary 75a-45f1-b /2014 [facility] 263-80a526 [facility] 4a7f03 [facility] [place] [facility] 485vjy44-4 07/24 07/24 NE Primary 211-4474-9 /2014 [facility] bf5-53f8fb [facility] 144113 [facility] [place] [facility] 7hrwkb02-a 07/24 07/24 NE Primary 780-49eb-9 /2014 [facility] 0a5-35616m [facility] 4b2a18 [facility] [place] [facility] 0948142a-g 07/24 07/24 NE Primary 4p3-834h-1 /2014 [facility] 27c-k1b203 [facility] 29cdb1 [facility] [place] [facility] z09217a7-0 07/24 07/24 NE Primary 697-41c5-8 /2014 [facility] 237-736380 [facility] ceaea3 [facility] [place] [facility] we4424dr-x 07/24 07/24 NE Primary cdb-4286-8 /2014 [facility] 9cd-e569d0 [facility] 93628a [facility] [place] [facility] 1utj1509-5 07/24 07/24 NE Primary 7fb-412b-8 /2014 [facility] 603-k47931 [facility] bf64fe [facility] [place] [facility] 788308p0-0 07/24 07/24 NE Primary 236-4729-8 /2014 [facility] f7n-63qm22 [facility] 0e6c93 [facility] [place] [facility] [id number] 07/24 07/24 NE Primary 79e-40a4-9 /2014 [facility] 88e-6a8d8c [facility] 887c08 [facility] [place] [facility] w441q52y-6 07/24 07/24 NE Primary q6v-5642-b /2014 [facility] m59-q9328h [facility] [id number] [facility] [place] [facility] tz3n2682-3 07/24 07/24 NE Primary 865-48cf-a /2014 [facility] 2g4-2e3wz5 [facility] 387c23 [facility] [place] [facility] 5zlgcn7k-9 07/24 07/24 NE Primary s54-8ev9-3 /2014 [facility] 237-57cca5 [facility] 8918dd [facility] [place] [facility] 36w3750e-3 07/24 07/24 NE Primary 1z1-366l-3 /2014 [facility] 526-53d6ee [facility] fca9c0 [facility] [place] [facility] m1l84g46-1 07/24 07/24 NE Primary 8v4-8u1s-l /2014 [facility] 92d-48d563 [facility] 804215 [facility] [place] [facility] 6151432b-b 07/24 07/24 NE Primary 8n2-59t3-x /2014 [facility] 670-52e6f9 [facility] d0ec67 [facility] [place] [facility] 90gscm33-7 07/24 07/24 NE Primary 23f-4f05-a /2014 [facility] 7fd-5df2ad [facility] bbbc2b [facility] [place] [facility] sxc05zgb-8 07/24 07/24 NE Primary 298-41a9-8 /2014 [facility] 4a2-26634s [facility] 441b85 [facility] [place] [facility] ref[place] on 80277tv0-u 08/11 08/11 NE Primary xanax 988-44d1-8 /2014 [facility] 3cb-9a9829 [facility] 9804b4 [facility] [place] [facility] on x8402xmf-2 08/11 08/11 NE Primary xanax dd6-4e5d-8 /2014 [facility] bdf-230186 [facility] cf2a80 [facility] [place] [facility] on x1x32s25-y 08/11 08/11 NE Primary xanax 6c7-3l00-n /2014 [facility] 8h9-lsd6g1 [facility] 9g6894 [facility] [place] [facility] on 0f6wp486-h 08/11 08/11 NE Primary xanax 267-426d-b /2014 [facility] cd5-102b8e [facility] 06714n [facility] , [place] [facility] ref[place] on 17724u15-9 08/11 08/11 NE Primary xanax 08d-409a-9 /2014 [facility] eee-942854 [facility] b13e06 [facility] , [place] ref[place] 54164qv7-3 08/11 08/11 NE Primary xanax 4q2-6x42-3 /2014 [facility] afe-ae4c7e [facility] f918b7 [facility] [place] [facility] q0cmiy65-7 08/11 08/11 NE Primary xanax m83-0w34-j /2014 [facility] 80c-f8aa25 [facility] ff4d67 [facility] [place] [facility] h51oj6in-5 08/11 08/11 NE Primary xanax dbb-4418-a /2014 [facility] 434-619ab3 [facility] [id number] [facility] [place] [facility] 2l53ms2p-9 08/11 08/11 NE Primary xanax f56-665c-5 /2014 [facility] 2p4-yg3f36 [facility] [id number] [facility] [place] [facility] 4bn7i4x2-4 08/11 08/11 NE Primary xanax 5r5-4j64-y /2014 [facility] 5j7-yc138l [facility] [id number] [facility] [place] [facility] [place] 55x11v5r-1 08/11 08/11 NE Primary xanax 518-44fa-a /2014 [facility] 987-ee57a1 [facility] x0920m [facility] [place] [facility] on 305v37ew-9 08/11 08/11 NE Primary xanax 223-41d2-a /2014 [facility] 0l7-1600v4 [facility] 3460bd [facility] [place] [facility] [place] 2xmm4205-5 08/11 08/11 NE Primary xanax 974-4e36-9 /2014 [facility] w72-g26318 [facility] 9k4313 [facility] [place] [facility] lw54u9pn-0 08/11 08/11 NE Primary xanax 45b-445f-9 /2014 [facility] 8cd-723dfb [facility] f261bf [facility] [place] [facility] [place] e38i313j-9 08/11 08/11 NE Primary xanax 439-418f-9 /2014 [facility] bfb-0e3fde [facility] 2r0906 [facility] [place] [facility] 2i7uwl88-3 08/11 08/11 NE Primary xanax ac8-4611-b /2014 [facility] j5a-m3cd0r [facility] b726f3 [facility] [place] [facility] [place] 168h5x14-0 08/11 08/11 NE Primary xanax 0be-4f61-8 /2014 [facility] e8j-o8d06v [facility] ix665t [facility] [place] [facility] [place] l53p6k48-7 08/11 08/11 NE Primary xanax dcd-4a28-b /2014 [facility] b53-i7f9q4 [facility] aee1bb [facility] [place] [facility] 5qxd677p-6 08/11 08/11 NE Primary xanax 723-4d33-a /2014 [facility] d74-18x39j [facility] [id number] [facility] [place] [facility] [place] 7978sti9-7 08/11 08/11 NE Primary xanax fc3-40ee-b /2014 [facility] 0ac-359993 [facility] 1h970r [facility] [place] [facility] [place] 896gk56t-1 08/11 08/11 NE Primary xanax 76a-4a5f-a /2014 [facility] v3k-0y0006 [facility] 9c78e4 [facility] [place] [facility] [place] 5wpj35w9-0 08/11 08/11 NE Primary xanax 6fb-465f-b /2014 [facility] 1db-960f14 [facility] 848003 [facility] [place] [facility] [place] 174k30ya-s 08/11 08/11 NE Primary xanax 250-45c7-b /2014 [facility] 70a-766225 [facility] 030ff7 [facility] [place] [facility] 3737i1a7-9 08/28 08/28 NE Primary medications 702-4d33-b /2014 [facility] Care o47-120ld3 [facility] ef3f63 [facility] [place] ref[facility] 393s3k71-6 08/28 08/28 NE Primary medications z34-22m8-5 /2014 Primary Care 7w7-091c65 [facility] c0bddd [facility] [place] 3lf189x7-3 08/28 08/28 NE Primary medications a86-65j1-4 /2014 Primary Care efa-1c03d8 [facility] 815656 [facility] [place] 793635d1-b 08/28 08/28 NE Primary medications be5-4bb9-8 /2014 Primary Care 3k4-r663rd [facility] 882bdd [facility] [place] rgt0l340-8 08/28 08/28 NE Primary medications 593-489c-8 /2014 Primary Care 11b-09u569 [facility] [id number] [facility] [place] ref[facility] u4ec8y9e-7 08/28 08/28 NE Primary medications 6y5-64q2-2 /2014 Primary Care 1q7-bc7745 [facility] l95226 [facility] [place] ref[facility] ikg990qs-m 08/28 08/28 NE Primary medications ed8-438e-8 /2014 Primary Care 65d-24f0b1 [facility] 9650ae [facility] [place] ref[facility] 5r25l6c5-4 08/28 08/28 NE Primary medications 11a-4c22-8 /2014 [facility] Care db8-595187 [facility] 18b5c8 [facility] [place] u664913t-6 08/28 08/28 NE Primary medications 0fb-43e5-b /2014 [facility] Care 74b-856145 [facility] 71q477 [facility] [place] ref[facility] 21353855-8 08/28 08/28 NE Primary medications 30e-42b0-9 /2014 Primary Care f44-633uy1 [facility] 7694dd [facility] [place] [place] refill 5277crr0-t 08/28 08/28 NE Primary medications 9ed-42ae-9 /2014 Primary Care 138-b5e7b8 [facility] fc83c1 [facility] [place] [facility] y292482b-3 08/28 08/28 NE Primary medications 684-44a4-a /2014 Primary Care 496-0b1e1c [facility] apu244 [place] , [place] [facility] g575j6w1-p 08/28 08/28 NE Primary medications ea7-4e5e-b /2014 [facility] Care fe7-fc3de1 [facility] 2o4611 [facility] [place] [facility] d2762u1e-3 08/28 08/28 NE Primary medications 7b7-29d7-l /2014 Primary Care r29-87m8ry [facility] 568fba [place] [place] [facility] 824f535c-4 08/28 08/28 NE Primary medications x19-4w39-z /2014 Primary Care 4s3-229936 [facility] 255a9f [place] [facility] [place] [facility] 75d2u914-3 08/28 08/28 NE Primary medications t7x-0d10-1 /2014 [facility] Care q22-h4kl00 [facility] 5fed12 [facility] [place] [facility] l06ha1q1-5 08/28 08/28 NE Primary medications m44-9vk6-a /2014 [facility] Care 97f-f95ff0 [facility] 26cbc0 [place] [place] [facility] ref[facility] v613rwg1-4 08/28 08/28 NE Primary medications q95-7j72-3 /2014 [facility] Care 26a-1da99a [facility] a328af [facility] [place] [facility] o95l03m4-1 08/28 08/28 NE Primary medications 835-4c1b-9 /2014 Primary Care 4y2-2jo0g6 [facility] 76bf03 [facility] [place] [facility] c559kh93-6 08/28 08/28 NE Primary medications 62c-484f-b /2014 [facility] 22b-69df17 [facility] 190eca [place] , [place] ref[facility] 73022a56-5 08/28 08/28 NE Primary medications 1cb-4d0e-a /2014 Primary Care 389-z0e707 [facility] 00c7d9 [facility] [place] [facility] ref[facility] 75tr55p5-e 08/28 08/28 NE Primary medications 940-49d6-9 /2014 Primary Care i9o-hjco16 [facility] 02bed4 [facility] [place] [facility] 15r732h5-v 08/28 08/28 NE Primary medications 2x5-060a-i /2014 [facility] Care c81-332989 [facility] e465c3 [facility] [place] [facility] [place] 100k517a-0 09/04 09/04 NE Primary fosamax 43f-4576-9 /2014 [facility] g96-3yjx06 [facility] e188f4 [facility] , [place] ref[place] 51470r5f-7 09/04 09/04 NE Primary fosamax 262-463e-a /2014 [facility] 5bd-e780cc [facility] 695606 [facility] , [place] ref[place] on 99b91033-8 09/04 09/04 NE Primary fosamax q5o-540d-p /2014 [facility] 1g7-p45e7s [facility] 632a6f [facility] , [place] ref[facility] on 999nt8k9-4 09/04 09/04 NE Primary fosamax 9g1-883w-s /2014 [facility] 310-e5d9e7 [facility] c74029 [facility] [place] ref[facility] [place] 2zz93rqa-4 09/04 09/04 NE Primary fosamax o76-25a8-8 /2014 [facility] 8o3-un8i86 [facility] 8c6fe5 [facility] , [place] refill on 75996ma6-4 09/04 09/04 NE Primary fosamax 0v7-1it7-0 /2014 [facility] 780-53044y [facility] a036f7 [facility] [place] [facility] ref[facility] on s7w96415-q 09/04 09/04 NE Primary fosamax d4k-61gr-o /2014 [facility] z17-r701cz [facility] 85144w [facility] [place] ref[facility] on 2x5406o9-3 09/04 09/04 NE Primary fosamax 95a-4b61-b /2014 [facility] 673-030bc0 [facility] [id number] [facility] , [place] [facility] ref[facility] on 0t1y8299-g 09/04 09/04 NE Primary fosamax 266-488a-9 /2014 [facility] fdb-247666 [facility] 79406x [facility] [place] [facility] ref[facility] [place] 1748c288-r 09/04 09/04 NE Primary fosamax 634-477d-b /2014 [facility] 7b9-d6cih3 [facility] 748655 [facility] , [place] ref[facility] [place] z246k9fs-5 09/04 09/04 NE Primary fosamax s0g-2y9e-d /2014 [facility] 594-c394fd [facility] 0b96b7 [facility] , [place] [facility] ref[facility] on 483nl900-g 09/04 09/04 NE Primary fosamax fff-444a-8 /2014 [facility] 003-a9f03e [facility] 70dd7f [facility] [place] [facility] ref[facility] [place] [id number]-5 09/04 09/04 NE Primary fosamax 7fb-461b-b /2014 [facility] af3-38bbba [facility] fc0eea [facility] [place] [facility] [place] 1c521r17-4 09/04 09/04 NE Primary fosamax q19-6r39-1 /2014 [facility] i78-33z22f [facility] cf3efc [facility] [place] [facility] on 0uf146nt-y 09/04 09/04 NE Primary fosamax aad-4745-9 /2014 [facility] v94-8d25u6 [facility] mz270j [facility] [place] [facility] ref[facility] [place] 6c6q3030-6 09/04 09/04 NE Primary fosamax 2y1-3n69-4 /2014 [facility] 5e5-227ju1 [facility] kzu365 [facility] , [place] [facility] [place] 350117t2-g 09/04 09/04 NE Primary fosamax j05-25rw-o /2014 [facility] 7fd-73x046 [facility] [id number] [facility] , [place] ref[facility] [place] 1f0eue3d-s 09/04 09/04 NE Primary fosamax ac2-46df-8 /2014 [facility] 636-984b5c [facility] 833edc [facility] , [place] [facility] ref[place] on 77125454-4 09/04 09/04 NE Primary fosamax 3l9-1y80-l /2014 [facility] 771-q42563 [facility] d55b41 [facility] [place] [facility] [place] m09nw445-6 09/04 09/04 NE Primary fosamax df1-4d46-a /2014 [facility] afa-6a81e2 [facility] d50cb6 [facility] [place] ref[facility] [place] 05iq6atx-0 09/04 09/04 NE Primary fosamax m80-846x-f /2014 [facility] 52a-91b0d3 [facility] 8a70a1 [facility] [place] ref[facility] on dj3lpp08-7 09/04 09/04 NE Primary fosamax 4df-4db9-b /2014 [facility] x58-uf1049 [facility] [id number] [facility] [place] [facility] on n51n0001-4 09/04 09/04 NE Primary fosamax g83-5gqu-m /2014 [facility] e7t-8e16m8 [facility] e170ea [facility] [place] [facility] d1599k59-z 09/08 09/08 NE Primary 5w5-936p-y /2014 [facility] ad1-408814 [facility] 2zd473 [facility] [place] [facility] Unknown 6w4n6doq-6 09/08 09/08 NE Primary ef0-49a7-9 /2014 [facility] q55-c8903p [facility] 40h060 [facility] [place] [facility] j0o557q9-7 09/08 09/08 NE Primary 00f-4586-a /2014 [facility] 398-zaf067 [facility] a01fda [facility] [place] [facility] 1169i2eh-9 09/08 09/08 NE Primary 197-48be-a /2014 [facility] 81b-c5e9ff [facility] 73f3c1 [facility] [place] [facility] 16r8g449-1 09/08 09/08 NE Primary 89d-4027-a /2014 [facility] o6d-841q6s [facility] [id number] [facility] [place] [facility] Unknown 0ua905mi-x 09/08 09/08 NE Primary 839-4006-9 /2014 [facility] 5m3-689f6h [facility] [id number] [facility] [place] [facility] 0o1sn959-0 09/08 09/08 NE Primary 220-4cc5- /2014 [facility] 7ba-76410z [facility] [id number] [facility] [place] Unknown b61318yl-[id number] 09/08 09/08 NE Primary n32-2i9g-n /2014 [facility] 677-6d4a00 [facility] r7w823 [facility] [place] Unknown 9270u696-e 09/08 09/08 NE Primary 3i4-6zv6-j /2014 [facility] eaf-0f6eb0 [facility] 9a8a8d [facility] [place] Unknown 7i975k6w-6 09/08 09/08 NE Primary 2y1-68t3-3 /2014 [facility] 779-xk9340 [facility] 3r176o [facility] [place] [facility] 3537v9wy-4 09/08 09/08 NE Primary 7a7-60gp-z /2014 [facility] 6y3-kav3z1 [facility] 2e3f3d [facility] [place] [facility] [id number] 09/08 09/08 NE Primary q14-2702-l /2014 [facility] 325-45493u [facility] e1n860 [facility] [place] Unknown 4290121z-[id number] 09/08 09/08 NE Primary 308-4e44-9 /2014 [facility] ad7-4e7f3a [facility] 9dc18f [facility] [place] Unknown rwmnc46x-e 09/08 09/08 NE Primary 9s8-4345-5 /2014 [facility] fca-56756k [facility] d88dc3 [facility] [place] [facility] nz21pr73-7 09/08 09/08 NE Primary n7l-3909-o /2014 [facility] 022-5x877g [facility] 524eaa [facility] [place] Unknown 9nl1j2x9-8 09/08 09/08 NE Primary s54-79as-d /2014 [facility] 435-97284p [facility] b7bb72 [place] [facility] [place] Unknown [id number] 09/08 09/08 NE Primary 3y2-1811-u /2014 [facility] 7s5-772bf3 [facility] 143378 , [place] Unknown 12a1254y-3 09/08 09/08 NE Primary d4a-26z0-c /2014 [facility] g60-ug93t0 [facility] 33792d [facility] [place] Unknown uyjl374k-d 09/08 09/08 NE Primary 762-4862-b /2014 [facility] z8w-20m2cw [facility] [id number] , [place] Unknown 3u8s49r7-8 09/08 09/08 NE Primary fa6-49d7- /2014 [facility] 8fb-aa3b5c [facility] 99fd11 [place] [facility] [place] Unknown q32tjjmn-2 09/08 09/08 NE Primary 00f-4f84-9 /2014 [facility] 223-66ffcb [facility] 4q938n [place] [facility] [place] Unknown 53u21663-l 09/08 09/08 NE Primary 386-4acc-8 /2014 [facility] 308-u29231 [facility] [id number] [facility] [place] Unknown 071487e7-3 09/08 09/08 NE Primary 82b-4735-9 /2014 [facility] 055-3978c3 [facility] 98a359 [place] [facility] [place] poss [id number] 09/28 09/28 NE Primary shingles 404-4955-b /2014 [facility] v6t-8adq12 [facility] 23s380 [place] [facility] [place] poss [id number] 09/28 09/28 NE Primary shingles 7ca-4875-8 /2014 [facility] j32-v58148 [facility] 39f3e7 [place] [place] poss 0xy33zm9-1 09/28 09/28 NE Primary shingles 94c-4372-a /2014 [facility] 4q3-39966b [facility] f10d01 [facility] [place] poss d996mt89-0 09/28 09/28 NE Primary shingles 6o8-9991-2 /2014 [facility] 763-248a82 [facility] 3f98be [facility] [place] poss [id number] 09/28 09/28 NE Primary shingles q12-7f54-0 /2014 [facility] k32-56j87f [facility] 3d6e49 [facility] [place] poss [id number] 09/28 09/28 NE Primary shingles 53b-456f-8 /2014 [facility] 49c-4q262h [facility] ub608p [facility] [place] poss tf8826qu-q 09/28 09/28 NE Primary shingles w5m-8693-7 /2014 [facility] 079-17eb04 [facility] g57919 [facility] [place] poss d1u6n06h-3 09/28 09/28 NE Primary shingles o33-6mm9-d /2014 [facility] 3t4-3f5o15 [facility] 318c9b [facility] [place] poss [id number]-g 09/28 09/28 NE Primary shingles 9z0-0pa7-0 /2014 [facility] 462-5bfb21 [facility] da15ea [place] [facility] [place] poss i5xn2hz1-6 09/28 09/28 NE Primary shingles 6ee-4fd8-9 /2014 [facility] 807-fc1bfa [facility] [id number] [facility] [place] poss [id number]-8 09/28 09/28 NE Primary shingles 19c-4d24-8 /2014 [facility] ff2-917610 [facility] ca9e1e [facility] [place] poss d4v0v18x-x 09/28 09/28 NE Primary shingles sánchez-4e6a-a /2014 [facility] 730-7e3376 [facility] [id number] [facility] [place] poss [id number] 09/28 09/28 NE Primary shingles 731-4c0a-a /2014 [facility] 8c7-2o8f21 [facility] 1c3ee8 [facility] [place] poss m004gw59-x 09/28 09/28 NE Primary shingles 26c-4e71-8 /2014 [facility] 9ba-87358l [facility] b1c7b7 [facility] [place] poss [id number] 09/28 09/28 NE Primary shingles b0s-3121-2 /2014 [facility] 9fb-32y644 [facility] bdc2e4 [facility] [place] poss [id number] 09/28 09/28 NE Primary shingles u3d-1z98-u /2014 [facility] fe4-d543a9 [facility] 7w519j [facility] [place] poss [id number] 09/28 09/28 NE Primary shingles 57f-4d4f-8 /2014 [facility] 722-161932 [facility] [id number] [facility] [place] poss 6rqms123-6 09/28 09/28 NE Primary shingles 2cd-4023-a /2014 [facility] i54-k8rb9m [facility] f522e9 [facility] [place] poss [id number] 09/28 09/28 NE Primary shingles 8fe-41cd-b /2014 [facility] 69a-85w994 [facility] 2b8be7 [facility] [place] poss ke1184t6-m 09/28 09/28 NE Primary shingles ebe-4568-9 /2014 [facility] 42b-26596k [facility] 7x233m [facility] [place] poss [id number] 09/28 09/28 NE Primary shingles [id number] /2014 [facility] [id number] [facility] [id number] [facility] [place] [facility] [id number] 09/28 09/28 [facility] Primary shingles [id number] /2014 [facility] [id number] [facility] [id number] [facility] [id number] 09/28 09/28 [facility] Primary shingles [id number]-9 /2014 [facility] [id number] [facility] [id number] [facility] [id number] 10/08 10/08 [facility] Primary 14a-[id number]-a /2014 [facility] [id number] [facility] [id number] [facility] [id number] 10/08 10/08 [facility] Primary [id number]-[id number]-b /2014 [facility] [id number] [facility] [id number] [facility] [id number] 10/08 10/08 [facility] Primary [id number]-a /2014 [facility] [id number] [facility] [id number] [facility] [id number] 10/08 10/08 [facility] Primary [id number]-8 /2014 [facility] [id number] [facility] [id number] [facility] [id number] 10/08 10/08 [facility] 043-4af5- [facility] [id number] [facility] [id number] [facility] [id number] 10/08 10/08 [facility] [id number] /2014 [facility] [id number] [facility] [id number] [facility] [id number] 10/08 10/08 [facility] Primary [id number]-8 /2014 [facility] [id number] [facility] [id number] [facility] [id number] 10/08 10/08 [facility] [id number] /2014 [facility] [id number] [facility] [id number] [facility] [id number] 10/08 10/08 [facility] 567-4c7c- [facility] [id number] [facility] [id number] [facility] [id number] 10/08 10/08 [facility] [id number] [facility] [id number] [facility] [id number] [facility] [id number] 10/08 10/08 [facility] Primary [id number] /2014 [facility] [id number] [facility] [id number] [facility] [id number] 10/08 10/08 [facility] Primary [id number] /2014 [facility] [id number] [facility] [id number] [facility] [id number] 10/08 10/08 [facility] Primary [id number] /2014 [facility] [id number] [facility] 3cedac [facility] [id number] 10/08 10/08 [facility] Primary [id number]-9 /2014 [facility] [id number] [facility] [id number] [facility] [id number] 10/08 10/08 [facility] Primary [id number] /2014 [facility] [id number] [facility] [id number] [facility] [id number] 10/08 10/08 [facility] Primary [id number]-4763-[id number] /2014 [facility] [id number] [facility] [id number] [facility] [facility] [id number] 10/08 10/08 [facility] 38f-44c5-8 /[facility] [id number] [facility] [place] [facility] [id number] 10/08 10/08 [facility] ca8-4dda-b /2014 [facility] 19e-95fc82 [facility] c1d1c7 [facility] [id number] 10/08 10/08 [facility] 63b-4067-b /2014 [facility] 9n0-40852u [facility] b43d30 [facility] [id number] 10/08 10/08 [facility] 4z2-0k2r-q /2014 [facility] 4l8-ytjb02 [facility] [id number] [facility] [place] [facility] [id number] 10/08 10/08 [facility] f35-0l77-j /2014 [facility] 66f-8829fb [facility] tw305i [facility] [place] [facility] [id number] 10/08 10/08 [facility] x83-81m7-0 /2014 [facility] 3l5-q0386m [facility] [id number] [facility] Unknown [id number] 10/08 10/08 [facility] ab7-4474-a /2014 [facility] cbd-04b0c0 [facility] [id number] [facility] re-evaluate [id number]-p 10/19 10/19 [facility] Primary z56-3371-i /2014 [facility] bd8-cef5d3 [facility] bf7a50 [facility] re-evaluate [id number]-h 10/19 10/19 [facility] Primary ef3-4afb-9 /2014 [facility] 6h9-75t8wp [facility] 7fe06b [facility] re-evaluate [id number]-1 10/19 10/19 [facility] Primary 5fe-40ae-b /2014 [facility] x92-7369kx [facility] efbecb [facility] re-evaluate [id number] 10/19 10/19 [facility] Primary 85f-44db-a /2014 [facility] bd7-j2b299 [facility] [id number] [facility] re-evaluate [id number] 10/19 10/19 [facility] Primary 4ff-4507-a /2014 [facility] dc2-9da2de [facility] c84f01 [facility] re-evaluate [id number] 10/19 10/19 [facility] 6f7-947i-y /2014 [facility] 6cc-h85530 [facility] [id number] [facility] re-evaluate 37p6x218-6 10/19 10/19 [facility] 930-4848-9 /2014 [facility] 8y3-0u5n7j [facility] 5932cf [facility] re-evaluate [id number]-v 10/19 10/19 [facility] 239-4f01-a /2014 [facility] 3aa-a3ffcc [facility] [id number] [facility] re-evaluate oisdg623-3 10/19 10/19 [facility] v89-0977-1 /2014 [facility] af5-1b1ad0 [facility] [id number] [facility] re-evaluate fr74yk49-d 10/19 10/19 [facility] y7t-4a0u-j /2014 [facility] 358-op4158 [facility] 4a2cef [facility] re-evaluate 1515v64m-j 10/19 10/19 [facility] 13b-407c-a /2014 [facility] 371-33c61e [facility] e77ce1 [facility] re-evaluate u6v493dr-8 10/19 10/19 [facility] dff-4eec-9 /2014 [facility] 101-bcaa14 [facility] e62b88 [facility] re-evaluate ykfr12xt-u 10/19 10/19 [facility] y4n-4434-y /2014 [facility] fci-c72d76 [facility] f32b71 [facility] re-evaluate cqtsjm2y-h 10/19 10/19 [facility] 9fb-4648-b /2014 [facility] ed1-4eb9a8 [facility] 8ba94b [facility] re-evaluate [id number] 10/19 10/19 [facility] p6q-2a61-8 /2014 [facility] 0w3-wyvzm0 [facility] b9a5da [facility] re-evaluate 6rqox8l7-7 10/19 10/19 [facility] 162-4f90-a /2014 [facility] 8g6-9649p3 [facility] [id number] [facility] re-evaluate [id number] 10/19 10/19 [facility] p52-3wu3-7 /2014 [facility] l0a-0271pl [facility] [id number] [facility] re-evaluate 45gd91kw-e 10/19 10/19 [facility] 51c-4c6c-b /2014 [facility] ae0-4e4e5a [facility] 1bafb6 [facility] re-evaluate [id number] 10/19 10/19 [facility] y9k-679q-9 /2014 [facility] 3fb-12e63a [facility] 8dbab5 [facility] re-evaluate [id number]-e 10/19 10/19 [facility] 991-4607-a /2014 [facility] h5c-3z441x [facility] 98503a [facility] re-evaluate p225w399-9 10/19 10/19 [facility] 366-46e8-8 /2014 [facility] 454-88dbaf [facility] 2aade5 [facility] re-evaluate [id number]-z 10/19 10/19 [facility] v50-78x1-3 /2014 [facility] i34-7sib36 [facility] 45i626 [facility] [place] [facility] [id number]-m 11/02 11/02 [facility] r08-4751-2 [facility] 7g9-156207 [facility] [id number] [facility] [place] [facility] o815f28j-8 11/02 11/02 [facility] 94f-4077-b /2014 [facility] 659-8w420f [facility] e53a07 [facility] [place] [facility] 638rz4zp-k 11/02 11/02 [facility] t13-5157-4 /2014 [facility] 8m0-zld93m [facility] e873bd [facility] [place] [facility] 56wxu054-v 11/02 11/02 [facility] 4fc-4700-a /2014 [facility] c6s-531f5n [facility] nfh133 [facility] [place] [facility] t333ta8w-q 11/02 11/02 [facility] 97f-449b-a /2014 [facility] 481-9x0043 [facility] 42516l [facility] [place] [facility] t1ts45i3-n 11/02 11/02 [facility] 3dc-4bfc-b /2014 [facility] 578-1faaf7 [facility] 9f8d04 [facility] [place] [facility] 87gsih93-r 11/02 11/02 [facility] 37a-46c1-9 /2014 [facility] 8db-6847cb [facility] [id number] [facility] [place] [facility] 874cs3t2-0 11/02 11/02 [facility] 141-437a-b /2014 [facility] 3m8-wl933w [facility] [id number] [facility] [place] [facility] 8yn82ys2-w 11/02 11/02 [facility] 070-462b-9 [facility] 705-c3bdf1 [facility] f3ed1b [facility] [place] [facility] [id number] 11/02 11/02 [facility] d47-702a-5 /2014 [facility] 0v5-3u6h91 [facility] [id number] [facility] [place] [facility] 0bpvk478-e 11/02 11/02 [facility] 71a-478c-9 [facility] 765-w8j223 [facility] c9c172 [facility] [place] [facility] [id number]-n 11/02 11/02 [facility] 58f-4489-b /2014 [facility] 1ee-27c91a [facility] e82ddc [facility] [place] [facility] 9gu1566u-r 11/02 11/02 [facility] 446-48cc-9 /2014 [facility] dc5-e1e82a [facility] 0505ac [facility] [place] [facility] 7z2t9iww-7 11/02 11/02 [facility] 768-42df-a /2014 [facility] 63c-e3ff2f [facility] 9b401s [facility] [place] [facility] 7494v53l-4 11/02 11/02 [facility] 724-442a-9 [facility] cf4-90c4b5 [facility] [id number] [facility] [place] [facility] [id number] 11/02 11/02 [facility] t19-3r3b-8 /2014 [facility] 8x2-2d8639 [facility] c83bd2 [facility] [place] [facility] z39c4kg1-4 11/02 11/02 [facility] ac3-4790-9 /2014 [facility] 6e5-0isi82 [facility] 14925p [facility] [place] [facility] 86z2aqt1-8 11/02 11/02 [facility] 0l8-219p-l /2014 [facility] 241-710787 [facility] f8f7dd [place] [facility] [place] [facility] 2r6x1dn0-y 11/02 11/02 [facility] h39-6497-y /2014 [facility] i30-955b19 [facility] 0a5fc3 [place] [facility] [id number] 11/02 11/02 [facility] 952-44dc-a /2014 [facility] 5y9-46866c [facility] bd28be [place] [facility] [place] [facility] saz337j1-x 11/02 11/02 [facility] 674-4e07-8 /2014 [facility] 0d1-7t36ej [facility] [id number] [place] [facility] [place] [facility] 3z8x36xd-1 11/02 11/02 [facility] 4j3-8p46-y /2014 [facility] 21d-2c3512 [facility] f193ea [place] [facility] [id number] 11/03 11/03 [facility] 185-4d75-b /2014 [facility] b12-10t127 [facility] 9b93b4 [place] [facility] 7518uwq7-0 11/03 11/03 [facility] 6k9-20z7-k /2014 [facility] w97-28h36b [facility] [id number] [place] [facility] [id number] 11/03 11/03 [facility] 6cb-4b72-a /2014 [facility] z81-7525tw [facility] 196a3b [facility] [place] [facility] 5nk9km4o-9 11/03 11/03 [facility] 0i4-3556-p /2014 [facility] i58-yel76v [facility] [id number] [place] [facility] 6687y99c-6 11/03 11/03 [facility] 3n8-99os-1 /2014 [facility] ecc-742560 [facility] 145bd1 [facility] [place] [facility] 34ou350h-l 11/03 11/03 [facility] 6df-4cf1-9 /2014 [facility] 9z5-7894v2 [facility] 761fa1 [place] [facility] [place] [facility] [id number] 11/03 11/03 [facility] fd1-4c99-9 /2014 [facility] p65-jf778k [facility] asj502 [place] [facility] [place] [facility] [id number]-o 11/03 11/03 [facility] 2m7-2997-1 /2014 [facility] o71-5d39k8 [facility] b2f44e [facility] [place] [facility] [id number]-w 11/03 11/03 [facility] aed-4f1c-a /2014 [facility] 9v0-6gn773 [facility] [id number] [place] [facility] [place] [facility] [id number]-4 11/03 11/03 [facility] be2-44ed-b /2014 [facility] 64c-c9d5be [facility] a141aa [place] [facility] [place] [facility] m6so70qz-y 11/03 11/03 [facility] 71e-4c19-b /2014 [facility] m34-y4t9cm [facility] beba57 [place] [facility] [place] [facility] [id number]-i 11/03 11/03 [facility] j36-9q57-o /2014 [facility] 6v3-14ga7w [facility] fba58a [place] [facility] [place] [facility] [id number]-6 11/03 11/03 [facility] aa3-46dc-b /2014 [facility] b63-p94056 [facility] [id number] [facility] [place] [facility] [id number] 11/03 11/03 [facility] 0bf-440c-8 /2014 [facility] 640-94bc2d [facility] [id number] [place] [facility] [place] [facility] [id number]-9 11/03 11/03 [facility] d27-1t2f-9 [facility] 224-2a9f82 [facility] 785bd7 [place] [facility] [place] [facility] 024yaxb0-e 11/03 11/03 [facility] 132-4a2d-8 /2014 [facility] z66-tf43v2 [facility] [id number] [facility] [place] [facility] [id number] 11/03 11/03 [facility] 835-4dec-8 /2014 [facility] 962-b8ad6d [facility] [id number] [facility] [place] [facility] [id number] 11/03 11/03 [facility] f00-1e52-h /2014 [facility] 734-c4fd5e [facility] 94b1bc [facility] [place] [facility] xp24gd1i-4 11/03 11/03 [facility] 40b-400b-b /2014 [facility] g17-6l7q01 [facility] 9a2db6 [facility] [place] [facility] [id number] 11/03 11/03 [facility] dd6-47a6-b /2014 [facility] cfe-5af22f [facility] [id number] [facility] [place] [facility] [id number] 11/03 11/03 [facility] 26f-46e2-8 /2014 [facility] q22-3x0s1s [facility] [id number] [place] [facility] [place] [facility] 0y9d2w65-y 11/03 11/03 [facility] n5s-549x-5 /2014 [facility] 076-f563d2 [facility] 7d6e1e [facility] [place] [facility] [place] [id number]-z 12/23 12/23 [facility] Omeprazole g71-5e98-m /2014 [facility] 3fa-c3e69b [facility] fe08a2 [facility] [place] [facility] [place] 29b17eyq-z 12/23 12/23 [facility] Omeprazole 829-4286-9 [facility] 82a-4xm783 [facility] 185a9f [facility] [place] ref[place] on 22386x47-5 12/23 12/23 [facility] Omeprazole 197-4128- [facility] a0h-538802 [facility] n6r701 [facility] [place] [facility] [place] 117f1ijx-2 12/23 12/23 [facility] Omeprazole 119-49f0-a /2014 [facility] 084-d6b46c [facility] [id number] [facility] [place] [facility] mk3454kc-r 12/23 12/23 [facility] Omeprazole fbf-4319-9 /2014 [facility] 8cb-7l105y [facility] f1bb40 [facility] [place] [facility] [place] ba5643j7-9 12/23 12/23 [facility] Omeprazole n3u-905a-9 [facility] ed0-4491ee [facility] 96e0a8 [facility] [place] [facility] [place] 8ft0l093-2 12/23 12/23 [facility] Omeprazole 496-4bd7-8 /2014 [facility] 1db-bba6cf [facility] ee42c9 [facility] [place] ref[place] on 903211n1-6 12/23 12/23 [facility] Omeprazole cdd-4c97-9 [facility] ec4-566e0b [facility] [id number] [facility] [place] [facility] [place] 97rk7z7p-0 12/23 12/23 [facility] Omeprazole ddb-47dd- [facility] 549-546ceb [facility] aa15f0 [facility] [place] [facility] [place] 2atf3z5d-5 12/23 12/23 [facility] Omeprazole 95f-43c4- [facility] brodie-0b4fbd [facility] 0839e9 [facility] [place] [facility] [place] zd491hp4-w 12/23 12/23 [facility] Omeprazole 017-44d7-8 /2014 [facility] 1z9-v40329 [facility] 068d8f [facility] [place] [facility] [place] 9qb764aw-0 12/23 12/23 [facility] Omeprazole q96-66p6-1 /2014 [facility] 6bb-9y6512 [facility] 32c7b8 [facility] [place] [facility] [place] p13uj739-0 12/23 12/23 [facility] Omeprazole 869-4797-b /2014 [facility] 37b-2f66cb [facility] [id number] [facility] [place] [facility] [place] 2df4d1t9-j 12/23 12/23 [facility] Omeprazole 4l3-7l55-i /2014 [facility] 0f4-63071c [facility] 42d03d [facility] [place] [facility] [place] l223654j-2 12/23 12/23 [facility] Omeprazole 59f-4970-9 /2014 [facility] 6r9-n75785 [facility] 9c91e5 [place] [facility] [place] ref[facility] [place] 0o8u83zt-2 12/23 12/23 [facility] Omeprazole 602-4ca2-8 /2014 [facility] ec9-68d9c4 [facility] [id number] [facility] [place] [facility] [place] 4z32ur77-l 12/23 12/23 [facility] Omeprazole cca-4c2a-a /2014 [facility] y97-56q161 [facility] c5c78b [place] [facility] [place] 0z24xb6c-7 12/23 12/23 [facility] Omeprazole h21-41vp-j /2014 [facility] 45f-9c639u [facility] 5f7c21 [place] [facility] 5pdfuug1-4 12/23 12/23 [facility] Omeprazole cb9-465f-9 /2014 [facility] de4-073cbd [facility] 364ebb [facility] [place] [facility] [place] [id number]-u 12/23 12/23 [facility] Omeprazole dfe-4703-a /2014 [facility] 15e-478717 [facility] 574eb4 [place] [facility] [place] ref[place] on 767940s1-q 12/23 12/23 [facility] Omeprazole 848-4102-b /2014 [facility] u26-ro1d65 [facility] 1158be [facility] [place] [facility] 61xh5k20-2 12/23 12/23 [facility] Omeprazole 311-4c06-a /2014 [facility] 993-4fc7ac [facility] [id number] [place] poss 3kr8ddi1-9 01/15 01/15 [facility] Primary shingles w4s-7ejw-u /2014 [facility] k01-td6743 [facility] 1c1afb [facility] [place] poss 7m6usx36-4 01/15 01/15 [facility] Primary shingles 82d-4866-9 /2014 [facility] 212-f81e62 [facility] c411a7 [facility] [place] poss 3irk0jr0-m 01/15 01/15 [facility] Primary shingles cf5-4908-9 /2014 [facility] g4x-1x65a0 [facility] [id number] [facility] [place] poss 7hn51t23-9 01/15 01/15 [facility] Primary shingles 0m1-3594-5 /2014 [facility] cad-803a76 [facility] e87c96 [facility] [place] poss ix709ed8-v 01/15 01/15 [facility] Primary shingles 428-4617-a /2014 [facility] 0p6-2g9883 [facility] 95f1bf [facility] [place] poss 41u3lq50-1 01/15 01/15 [facility] Primary shingles 9af-4022-8 /2014 [facility] q64-87r4p5 [facility] 7v729u [facility] [place] poss 2cag3745-7 01/15 01/15 [facility] Primary shingles 2o9-2q0x-5 /2014 [facility] 118-58188m [facility] 290fbe [facility] [place] poss 20uc0616-c 01/15 01/15 [facility] Primary shingles 35d-4f6b-b /2014 [facility] p2g-36v45f [facility] 6l2019 [facility] [place] poss 2y90ec66-0 01/15 01/15 [facility] Primary shingles ebd-477c-b /2014 [facility] 076-ce8d5f [facility] [id number] [facility] [place] poss 864ffbcb-7 01/15 01/15 [facility] Primary shingles a64-515f-3 /2014 [facility] ef3-7364b7 [facility] 7a93a2 [facility] [place] poss qy3iw56e-8 01/15 01/15 [facility] Primary shingles 429-42e2-8 /2014 [facility] 9n5-qzk489 [facility] 77887m [facility] [place] poss 8j63113r-2 01/15 01/15 [facility] Primary shingles m4l-59tj-6 /2014 [facility] 21a-8c0c22 [facility] [id number] [facility] [place] poss p296l2h2-0 01/15 01/15 [facility] Primary shingles 758-46be-b /2014 [facility] 486-832a7f [facility] [id number] [facility] [place] poss gl3445s1-4 01/15 01/15 [facility] Primary shingles eea-4beb-a /2014 [facility] 1df-92aec1 [facility] 89077u [facility] [place] poss m900da82-6 01/15 01/15 [facility] Primary shingles 4bd-4e41-b /2014 [facility] k10-72ad5b [facility] 866d4f [facility] [place] poss x9c6z00l-7 01/15 01/15 [facility] Primary shingles 9o6-50h7-2 /2014 [facility] e96-5736au [facility] 3ccdaa [facility] [place] poss v066498s-1 01/15 01/15 [facility] Primary shingles 2z7-0c6t-o /2014 [facility] 63c-30687r [facility] eecf67 [facility] [place] poss 50ry58h9-7 01/15 01/15 [facility] Primary shingles 248-4d28-b /2014 [facility] o07-4w5291 [facility] 82108a [facility] [place] poss 30ta1e0g-0 01/15 01/15 [facility] Primary shingles 2g7-98h6-7 /2014 [facility] 93b-4864ed [facility] 6ac4a3 [facility] [place] poss 59823o5v-h 01/15 01/15 [facility] Primary shingles 108-49e6-9 /2014 [facility] 306-f41a7b [facility] 378ad7 [facility] [place] poss 84ht928o-9 01/15 01/15 [facility] Primary shingles e4t-3234-c /2014 [facility] u97-7fxyu1 [facility] [id number] [facility] [place] poss 01h5351h-l 01/15 01/15 [facility] Primary shingles g05-3g3r-z /2014 [facility] 460-095af3 [facility] 383b7f [facility] [place] [facility] Refill on 24ju86jo-3 01/19 01/19 [facility] Primary meds cb0-43cc-a /2014 [facility] 163-3065a0 [facility] [id number] [facility] [place] [facility] Ref[facility] e687y092-s 01/19 01/19 [facility] Primary meds 87d-4788-b /2014 [facility] fcb-02bdc1 [facility] 5213a0 [facility] [place] [facility] Ref[facility] 54m6d743-3 01/19 01/19 [facility] Primary meds l00-5164-p /2014 [facility] 6ec-5y182s [facility] 6ee53a [facility] [place] [facility] Ref[facility] cm9f0l7f-7 01/19 01/19 [facility] Primary meds r77-53y7-8 /2014 [facility] eca-9b4dc4 [facility] e1471j [facility] [place] [facility] Ref[facility] 7d587x03-c 01/19 01/19 [facility] Primary meds 7o4-59s4-k /2014 [facility] 8ed-c85d50 [facility] 136b3d [facility] [place] [facility] Ref[facility] 4a4e608m-3 01/19 01/19 [facility] Primary meds e0u-762b-3 /2014 [facility] 596-c9d42b [facility] df9f64 [facility] [place] [facility] Ref[facility] on 70140068-1 01/19 01/19 [facility] meds 4u1-895r-y /2014 [facility] 131-14806f [facility] cv3072 [facility] [place] [facility] Ref[facility] 97qy1h6f-1 01/19 01/19 [facility] meds ac6-4bde-b /2014 [facility] 3bc-7d7cfe [facility] [id number] [facility] [place] [facility] Ref[facility] 4f8v01m8-n 01/19 01/19 [facility] Primary meds 090-4068-b /2014 [facility] 251-0ms434 [facility] ef0ae8 [facility] [place] [facility] Ref[facility] 592p3ub5-2 01/19 01/19 [facility] Primary meds 39c-48c3-a /2014 [facility] fdd-85r662 [facility] xv404w [facility] [place] [facility] Ref[facility] 783oat47-1 01/19 01/19 [facility] meds t80-6xwg-c /2014 [facility] t08-sb3tkl [facility] e09f47 [facility] [place] [facility] Ref[facility] [id number]-v 01/19 01/19 [facility] meds 2t3-7og4-9 /2014 [facility] 518-h7b980 [facility] 75q167 [facility] [place] [facility] 8d6h7078-3 01/19 01/19 [facility] meds 2w0-9171-2 /2014 [facility] 17b-i53884 [facility] cky871 [facility] [place] Ref[place] 53864304-m 01/19 01/19 [facility] Primary meds ea7-4153-9 /2014 [facility] 497-6h3038 [facility] [id number] [facility] [place] Ref[facility] 75fwj0q9-6 01/19 01/19 [facility] meds 109-4c35-9 /2014 [facility] 04c-1cp864 [facility] 1b07dc [facility] [place] Ref[facility] 0j07c7hf-5 01/19 01/19 [facility] meds aec-4d0c-a /2014 [facility] 49b-uo9133 [facility] df58f2 [facility] [place] Ref[facility] txr400xz-j 01/19 01/19 [facility] meds a38-9rq2-d /2014 [facility] 504-4d9311 [facility] f8cd46 [facility] [place] Ref[facility] 7ijd9m95-x 01/19 01/19 [facility] meds 413-4fde-9 /2014 [facility] q69-1hr7or [facility] [id number] [facility] [place] Ref[facility] j9h50zk0-0 01/19 01/19 [facility] Primary meds 1o9-2661-d /2014 [facility] 96f-56acbc [facility] 00cb2d [facility] [place] [facility] 229sf3em-2 01/19 01/19 [facility] Primary meds p43-8vr8-5 /2014 [facility] 871-8ab5c3 [facility] b49e26 [facility] [place] [facility] 5153k9z3-v 01/19 01/19 [facility] meds 36d-4244-8 /2014 [facility] n49-1wv726 [facility] bz290f [facility] [place] [facility] 8k287z6g-1 01/19 01/19 [facility] Primary meds 595-4fa4-a /2014 [facility] af5-cbef03 [facility] 9698c1 [facility] [place] [facility] Follow-Up 215ie371-1 02/15 02/15 NE Primary shingles 5l1-1r5x-c /2014 [facility] 359-df87f0 [facility] e92d4b [place] [facility] [place] Follow-Up 17b5o2hd-p 02/15 02/15 NE Primary shingles 8l9-1745-z /2014 [facility] 2w6-n781c8 [facility] [id number] [facility] Follow-Up 83t56899-3 02/15 02/15 [facility] Primary shingles 362-4222-b /2014 [facility] 286-5e39b8 [facility] 8a56c8 [place] [facility] Follow-Up 26hf2cs2-v 02/15 02/15 [facility] Primary shingles 116-4afd-9 [facility] bed-2l561h [facility] 067ad8 [facility] [place] Follow-Up uucn08px-h 02/15 02/15 [facility] Primary shingles 575-4eb1-8 /2014 [facility] 759-5rw674 [facility] [id number] [facility] [place] Follow-Up 95655792-[id number] 02/15 02/15 [facility] Primary shingles a63-8f49-6 /2014 [facility] lia-563f39 [facility] [id number] [place] [facility] [place] Follow-Up jlb724j7-l 02/15 02/15 [facility] Primary shingles 385-4505-a /2014 [facility] 7g5-5hk7i8 [facility] [id number] [facility] [place] Follow-Up 954uw6t7-l 02/15 02/15 [facility] Primary shingles 191-4fbf-b /2014 [facility] 442-84955t [facility] 190c14 [facility] [place] [facility] Follow-Up 118v8039-h 02/15 02/15 [facility] Primary shingles 2a6-81q0-1 /2014 [facility] 521-69n710 [facility] [id number] [facility] [place] [facility] Follow-Up e0yp096i-5 02/15 02/15 [facility] Primary shingles 94f-43a2-b /2014 [facility] 5ee-b871be [facility] 69g999 [facility] [place] [facility] Follow-Up 0132jn8m-r 02/15 02/15 [facility] Primary shingles 59e-4ca9-a /2014 [facility] x59-5c7301 [facility] 9627d3 [facility] [place] [facility] Follow-Up [id number] 02/15 02/15 [facility] Primary shingles -4d75-a /2014 [facility] 209-af5c58 [facility] [id number] [facility] [place] [facility] Follow-Up [id number]-z 02/15 02/15 [facility] Primary shingles 922-488e-9 [facility] 1s0-47789v [facility] [id number] [place] [facility] Follow-Up [id number] 02/15 02/15 [facility] Primary shingles y67-4l0y-7 [facility] 7eb-b05e1d [facility] 0a37ad [facility] [place] [facility] Follow-Up [id number] 02/15 02/15 [facility] Primary shingles 9ce-429e- [facility] db0-d0ca6e [facility] ce70dc [facility] [place] [facility] Follow-Up zkljo321-k 02/15 02/15 [facility] Primary shingles 672-4000-9 /2014 [facility] 4y9-20f833 [facility] [id number] [facility] [place] [facility] Follow-Up [id number] 02/15 02/15 [facility] Primary shingles m11-3670-1 /2014 [facility] ff0-9n1478 [facility] [id number] [place] [facility] [place] [facility] Follow-Up [id number] 02/15 02/15 [place] Primary shingles [id number] /2014 [facility] [id number] [facility] [id number] , [place] [facility] [id number] 02/15 02/15 [place] Primary shingles [id number] /2014 [facility] [id number] [facility] [id number] [facility] [place] [facility] [id number] 02/15 02/15 [place] Primary shingles 380-4ada- [facility] [id number] [facility] [id number] [place] [facility] [place] [facility] [id number] 03/03 03/03 [place] Primary Fosamax 24e-[id number]-8 /2014 [facility] [id number] [facility] [id number] [facility] [place] [facility] [place] [id number] 03/03 03/03 [place] Primary Fosamax [id number] [facility] [id number] [facility] [id number] [place] [facility] [place] [facility] [place] [id number] 03/03 03/03 [place] Primary Fosamax [id number] /2014 [facility] [id number] [facility] [id number] [place] [place] [facility] [id number] 03/03 03/03 [place] Primary Fosamax [id number] /2014 [facility] [id number] [facility] [id number] [facility] [place] [facility] [id number] 03/03 03/03 [place] Primary Fosamax [id number] /2014 [facility] [id number] [facility] [id number] [facility] [place] [facility] [id number] 03/03 03/03 [place] Primary Fosamax [id number] /2014 [facility] [id number] [facility] [id number] [facility] [place] [facility] [id number] 03/03 03/03 [place] Primary Fosamax [phone]-[id number] /2014 [facility] [id number] [facility] [id number] [facility] [place] [facility] [id number] 03/03 03/03 [place] Primary Fosamax [id number]-[id number] /2014 [facility] [id number] [facility] [id number] [facility] [place] [facility] [id number] 03/03 03/03 [place] Primary Fosamax [id number]-[id number] /2014 [facility] [id number] [facility] [id number] [facility] [place] [facility] [id number] 03/03 03/03 [place] Primary Fosamax [id number]-[id number] /2014 [facility] [id number] [facility] [id number] [facility] [place] [facility] [place] [id number] 03/03 03/03 [place] Primary Fosamax [id number] /2014 [facility] [id number] [facility] [id number] [facility] [place] [facility] [id number] 03/03 03/03 [place] Primary Fosamax [id number] /2014 [facility] [id number] [facility] [id number] [facility] [place] [facility] [id number] 03/03 03/03 [place] Primary Fosamax [id number] /2014 [facility] [id number] [facility] [id number] [facility] [place] [facility] [id number] 03/03 03/03 [place] Primary Fosamax [id number]-[phone] /2014 [facility] [id number] [facility] [id number] [facility] [place] [facility] [id number] 03/03 03/03 [facility] Primary Fosamax 789-4b4d-8 /2014 [facility]c4f2 [id number] [place] [facility] 84q4q342-j 03/03 03/03 NE Primary Fosamax e1v-5242-r /2014 [facility] 3d9-863536 [facility] e4c5bd [facility] [place] Ref[facility] [place] 007t39a6-3 03/03 03/03 NE Primary Fosamax n4f-538m-8 /2014 [facility] 9dc-z7558p [facility] [id number] [facility] [place] Ref[facility] [place] b51fm60w-0 03/03 03/03 NE Primary Fosamax 3d9-6801-4 /2014 [facility] 554-l03685 [facility] [id number] [facility] [place] [facility] [place] 9e045mf0-w 03/03 03/03 NE Primary Fosamax 00b-49f5-b /2014 [facility] ad4-5ec88b [facility] 1e8f0d [facility] , [place] [facility] Follow-Up [id number] 06/04 06/04 NE Primary meds 52f-43fc- /2014 [facility] abd-257e8e [facility] [id number] , [place] [facility] Follow-Up koz1v074-5 06/04 06/04 NE Primary meds 2ae-4e15-9 /2014 [facility] 9de-8s063e [facility] [id number] [facility] [place] [facility] Follow-Up [id number] 06/04 06/04 NE Primary meds 44f-41ca-a /2014 [facility] 5dc-c79f00 [facility] 3fa40a , [place] [facility] Follow-Up mv5e6x28-7 06/04 06/04 NE Primary meds ab0-4ce2-b /2014 [facility] 16c-4951c0 [facility] [id number] [facility] , [place] [facility] Follow-Up [id number] 06/04 06/04 NE Primary meds fc4-4257-b /2014 [facility] 9t3-22h681 [facility] [id number] [place] [facility] Follow-Up m2nl68t9-j 06/04 06/04 NE Primary meds z82-03b9-3 /2014 [facility] 3o3-p95417 [facility] [id number] [place] [place] [facility] Follow-Up 8np31tvn-p 06/04 06/04 NE Primary meds fe5-49f4-b /2014 [facility] 7x1-900506 [facility] 6af2bf [facility] [place] [facility] 755641ch-w 06/04 06/04 NE Primary meds h2z-7647-4 /2014 [facility] ec5-6b06a7 [facility] 57dada [facility] [place] [facility] 0370e275-3 06/04 06/04 NE Primary meds 76b-4582-8 /2014 [facility] 37d-05c6fb [facility] gj740x [facility] [place] [facility] 6x370u51-5 06/04 06/04 NE Primary meds 25e-403d-8 /2014 [facility] eae-b990b6 [facility] a37d9b [facility] [place] [facility] [id number] 06/04 06/04 NE Primary meds db1-4ce0-9 /2014 [facility] r42-0260at [facility] 18ebd7 [facility] [place] [facility] Follow-Up 434lip57-7 06/04 06/04 NE Primary meds 8t0-781u-z /2014 [facility] 609-74b212 [facility] [id number] [facility] [place] [facility] 9p73uk9c-5 06/04 06/04 NE Primary meds af1-44b9-8 /2014 [facility] 0cb-4a36b7 [facility] [id number] [facility] [place] [facility] ts4p643r-5 06/04 06/04 NE Primary meds cf8-4213-8 /2014 [facility] 8ac-81b8ea [facility] e3c4ca [facility] [place] [facility] 8ov4y6at-8 06/04 06/04 NE Primary meds 7da-4be9-b /2014 [facility] 868-a997e7 [facility] [id number] [facility] [place] [facility] 4711f699-8 06/04 06/04 NE Primary meds p64-94js-0 /2014 [facility] l13-fmf030 [facility] s6774c [facility] [place] [facility] t035lf79-d 06/04 06/04 NE Primary meds i71-08ea-f /2014 [facility] 6y8-56735t [facility] [id number] [facility] [place] [facility] 499l1219-0 06/04 06/04 NE Primary meds 8fd-4ed4-b /2014 [facility] 08d-5a6616 [facility] 81f8fd [facility] [place] Unknown [id number] 06/21 06/21 NE Primary 988-4d5f-a /2014 [facility] 3q1-189626 [facility] [id number] [facility] [place] Unknown j1142m3o-1 06/21 06/21 NE Primary 4k7-63u3-r /2014 [facility] bd0-63277i [facility] 5l3778 [facility] [place] Unknown [id number]-o 06/21 06/21 NE Primary 709-4701-a /2014 [facility] ee4-6yl294 [facility] 2bff36 [facility] [place] Unknown [id number] 06/21 06/21 NE Primary 82b-40a4-b /2014 [facility] ad2-38fc24 [facility] [id number] [facility] [place] Unknown [id number] 06/21 06/21 NE Primary 5ec-4182-b /2014 [facility] 271-ad9bc8 [facility] 3beb90 [facility] [place] Unknown [id number] 06/21 06/21 NE Primary 28f-4391-8 /2014 [facility] f58-50m365 [facility] [id number] [facility] [place] Unknown 2s547t2p-0 06/21 06/21 NE Primary 956-44e7-b /2014 [facility] 513-x75974 [facility] ab02cd [facility] [place] Unknown [id number]-5 06/21 06/21 NE Primary 2o1-1021-v /2014 [facility] 136-6a8e88 [facility] 7eaf6c [facility] [place] [facility] v2b5b807-w 06/21 06/21 NE Primary 507-4960-8 /2014 [facility] fef-2bb7b7 [facility] [id number] [facility] [place] Unknown 028m2x59-e 06/21 06/21 NE Primary m75-077j-6 /2014 [facility] 8bf-1bec78 [facility] 2bb8ac [facility] [place] [facility] n574y61b-4 06/21 06/21 NE Primary s96-29zz-s /2014 [facility] 81a-c51edb [facility] [id number] [facility] [place] Unknown scc9r1j9-8 06/21 06/21 NE Primary 44e-4ec2-8 /2014 [facility] 2u8-1sn884 [facility] 6bccdf [facility] [place] Unknown [id number] 06/21 06/21 NE Primary 921-4f0a-9 /2014 [facility] 72b-337cb0 [facility] [id number] [facility] [place] Unknown jr1x350y-0 06/21 06/21 NE Primary 5cc-4085-9 /2014 [facility] l72-z8p6g1 [facility] 938ec5 [facility] [place] Unknown [id number] 06/21 06/21 NE Primary k22-1rc8-g /2014 [facility] 901-3fab23 [facility] 5c0b8d [facility] [place] Unknown 45zw3g97-x 06/21 06/21 NE Primary j2z-642d-7 /2014 [facility] 80d-i9n380 [facility] 0fff8c [facility] [place] Unknown [id number]-r 06/21 06/21 NE Primary 947-4216-8 /2014 [facility] 21f-737184 [facility] [id number] [facility] [place] Unknown w8272qju-4 06/21 06/21 NE Primary e06-4834-e /2014 [facility] 944-m59178 [facility] u2505g [facility] [place] 1 month 6nxcq00a-5 07/05 07/05 NE Primary 6l7-2727-8 /2015 [facility] p3z-k83341 [facility] 78514e [facility] [place] 1 month 766a68k2-l 07/05 07/05 NE Primary fd4-46fa-b /2015 [facility] 834-429a73 [facility] f279d8 [facility] [place] 1 month 59f260bg-0 07/05 07/05 NE Primary 9ec-426d-8 /2015 [facility] 9v8-863h4g [facility] f23d53 [facility] [place] 1 month [id number] 07/05 07/05 NE Primary ca8-4eb7-b /2015 [facility] aae-65540n [facility] [id number] [facility] [place] 1 month [id number]-a 07/05 07/05 NE Primary 740-4f46-8 /2015 [facility] u7r-704805 [facility] 4q950s [facility] [place] 1 month 8060mc26-s 07/05 07/05 NE Primary 45b-48c1-9 /2015 [facility] 828-19836q [facility] e469da [facility] [place] 1 month [id number] 07/05 07/05 NE Primary s31-7666-6 /2015 [facility] 828-678910 [facility] dc4a44 [facility] [place] 1 month e0qwl797-i 07/05 07/05 NE Primary 044-453f-8 /2015 [facility] 5p7-198n92 [facility] 27d93b [facility] [place] 1 month g98cydve-a 07/05 07/05 NE Primary 0be-4312-8 /2015 [facility] 739-da2679 [facility] 67007z [facility] [place] 1 month xq2x9yt2-3 07/05 07/05 NE Primary 5c7-4ibt-k /2015 [facility] 33b-fb2fe7 [facility] zf5570 [facility] [place] 1 month [id number]-f 07/05 07/05 NE Primary 1de-4aef-a /2015 [facility] e86-9svup5 [facility] 1d8dc8 [facility] [place] 1 month [id number] 07/05 07/05 NE Primary 32b-424a-b /2015 [facility] 0cd-d63ab4 [facility] 6b1e10 [facility] [place] 1 month 3m358f25-3 07/05 07/05 NE Primary 298-4b46-8 /2015 [facility] c88-6aesgm [facility] [id number] [place] [place] 1 month 3kct2ac5-1 07/05 07/05 NE Primary k4p-3654-y /2015 [facility] 715-c85759 [facility] 13a3ef [place] [facility] [place] 1 month [id number] 07/05 07/05 NE Primary 343-4baf-8 /2015 [facility] 891-2717ba [facility] [id number] [facility] [place] 1 month 80488xh5-2 07/05 07/05 NE Primary 9db-4ea9-9 /2015 [facility] 3c8-d6999l [facility] [id number] [place] [facility] [place] refill on ps07u4u2-2 08/27 08/27 NE Primary Levothyroxin t3q-975a-s /2015 Primary Care e 11f-169868 [facility] f32c12 [facility] [place] ref[place] 7v84nar1-q 08/27 08/27 NE Primary Levothyroxin 429-4c44-8 /2015 Primary Care e 32c-u73382 [facility] 5d7d75 [place] [facility] [place] refill on w84441i3-3 08/27 08/27 NE Primary Levothyroxin h79-2d05-d /2015 Primary Care e 4m5-8406m3 [facility] db20b6 [facility] [place] ref[place] 6p9020u6-y 08/27 08/27 NE Primary Levothyroxin x49-8550-9 /2015 Primary Care e 6k5-a72v66 [facility] 5d2e37 [facility] [place] ref[place] w4a27v6x-l 08/27 08/27 NE Primary Levothyroxin 6bf-407a-a /2015 Primary Care e cbd-57fd30 [facility] [id number] [facility] [place] ref[place] x2e6j809-8 08/27 08/27 NE Primary Levothyroxin k87-65g7-d /2015 Primary Care e s67-334v5v [facility] bfa02e [place] [facility] [place] refill [place] uwcf2294-w 08/27 08/27 NE Primary Levothyroxin af2-49d5-b /2015 Primary Care e 8k5-430190 [facility] 06314n [place] ref[place] 0pqb78p0-9 08/27 08/27 NE Primary Levothyroxin 4n0-222j-6 /2015 Primary Care e 20f-bfcb16 [facility] ti958u [place] [facility] [place] refill [place] 06206t4x-e 08/27 08/27 NE Primary Levothyroxin m87-13yy-9 /2015 Primary Care e 59b-659354 [facility] f3b7d6 [place] refill on 16ae416q-1 08/27 08/27 NE Primary Levothyroxin 410-4e27-9 Primary Care e 76c-fe0e9f [facility] df88fe [place] [facility] [place] refill [place] on0g1459-1 08/27 08/27 NE Primary Levothyroxin 087-49f7-b /2015 Primary Care e 987-06280u [facility] 6e3ab3 [place] [facility] [place] refill [place] d72gypp5-c 08/27 08/27 NE Primary Levothyroxin q7y-5228-7 /2015 Primary Care e h50-594jj9 [facility] c175a7 [facility] [place] refill [place] y720j0y8-d 08/27 08/27 NE Primary Levothyroxin m90-8322-f /2015 Primary Care e 9ce-1be2e6 [facility] [id number] [facility] [place] refill [place] 3b6j0087-t 08/27 08/27 NE Primary Levothyroxin 97c-4304-9 Primary Care e 4y9-313105 [facility] [id number] [place] [facility] [place] refill [place] q19zw4k4-6 08/27 08/27 NE Primary Levothyroxin 90b-4b5d-9 Primary Care e [phone] [facility] 6au415 [facility] [place] Refill [place] p240h1d8-7 10/26 10/26 NE Primary Viibryd q28-1r3v-x /2015 [facility] a9c-v6h5ph [facility] 8d1c5e [facility] [place] Refill [place] [id number] 10/26 10/26 NE Primary Viibryd u7y-4lrw-q /2015 [facility] 399-bd0fc6 [facility] [id number] [facility] [place] Refill [place] p28r6015-s 10/26 10/26 NE Primary Viibryd 093-44c1-8 /2015 [facility] v9z-436g6a [facility] 05972m [facility] [place] Refill [place] h04002ah-o 10/26 10/26 NE Primary Viibryd 756-4851-a /2015 [facility] t4o-99b10i [facility] d71f91 [facility] [place] Refill [place] n9986dg5-3 10/26 10/26 NE Primary Viibryd fce-40be-8 /2015 [facility] 6ee-0bf7b1 [facility] 798c36 [facility] [place] Refill [place] q8b9i750-7 10/26 10/26 NE Primary Viibryd 0c6-79j8-8 /2015 [facility] 68a-736f0d [facility] [id number] [facility] [place] Refill [place] q659f01e-x 10/26 10/26 NE Primary Viibryd 479-4b5d-b /2015 [facility] 6ff-f499ca [facility] 03ce24 [facility] [place] Refill [place] g1f6r2r7-3 10/26 10/26 NE Primary Viibryd k40-1732-8 /2015 [facility] 38d-f26677 [facility] 72e0fb [facility] [place] Refill [place] [id number] 10/26 10/26 NE Primary Viibryd 6e3-01g1-c /2015 [facility] i13-vy9g89 [facility] e48cd9 [facility] [place] Refill [place] 05858877-o 10/26 10/26 NE Primary Viibryd 134-4a28-8 /2015 [facility] 661-2c01ca [facility] 1ce20a [facility] [place] Refill on 524rf963-9 10/26 10/26 NE Primary Viibryd n43-781s-m /2015 [facility] 88e-2247da [facility] 6078eb [facility] [place] Refill [place] be802584-7 10/26 10/26 NE Primary Viibryd 1y0-2of9-4 /2015 [facility] 685-12aa48 [facility] [id number] [facility] [place] Refill [place] [id number] 10/26 10/26 NE Primary Viibryd 3l9-97x1-6 /2015 [facility] ab7-84fbb8 [facility] d25a84 [facility] [place] Refill [place] nuh099u4-q 10/26 10/26 NE Primary Viibryd s03-4a4s-3 /2015 [facility] e8g-9or057 [facility] 0fafd4 [facility] [place] ref[place] 1kq6487s-6 01/06 01/06 NE Primary Xanax g28-9712-6 /2015 [facility] ddc-a36feb [facility] hfv569 [facility] [place] ref[place] 6sw6b3vt-e 01/06 01/06 NE Primary Xanax 166-47dd-b /2015 [facility] 7u6-u6z5q6 [facility] 856e64 [facility] [place] refill [place] i6h4l9n2-m 01/06 01/06 NE Primary Xanax e81-7mh3-2 /2015 [facility] 8de-aee1be [facility] 780de5 [facility] [place] refill [place] [id number] 01/06 01/06 NE Primary Xanax eaa-4b43-b /2015 [facility] 610-838173 [facility] [id number] [facility] [place] refill [place] v4g64f47-6 01/06 01/06 NE Primary Xanax 2z4-393l-j /2015 [facility] 9l2-67v529 [facility] 82e48c [facility] [place] refill [place] 4s2c55g6-y 01/06 01/06 NE Primary Xanax g24-33l7-9 /2015 [facility] 4ba-be12ab [facility] [id number] [facility] [place] refill [place] yp54a6rw-1 01/06 01/06 NE Primary Xanax 919-4895-9 /2015 [facility] h6w-7k46zv [facility] [id number] [facility] [place] refill [place] pq5f367a-4 01/06 01/06 NE Primary Xanax 5r6-86l7-4 /2015 [facility] 005-1aa2d6 [facility] [id number] [facility] [place] refill [place] 1t5e37k3-5 01/06 01/06 NE Primary Xanax 0m9-7486-q /2015 [facility] 1u1-qp0719 [facility] 752aa0 [facility] [place] refill [place] 267q06u0-9 01/06 01/06 NE Primary Xanax b95-8384-p /2015 [facility] 7a5-7k31i9 [facility] [id number] [facility] [place] refill [place] 3bwqb9m9-9 01/06 01/06 NE Primary Xanax 528-46e9-b /2015 [facility] da1-a0af0e [facility] 50c99a [facility] [place] refill [place] 098630na-0 01/06 01/06 NE Primary Xanax fde-4395-8 /2015 [facility] aaf-5fd83d [facility] a2fabe [facility] [place] refill [place] 91c91zv1-y 01/06 01/06 NE Primary Xanax f86-051c-8 /2015 [facility] dfe-bc86d4 [facility] 9a21ee [facility] [place] Refill [place] 00gh69nz-1 01/09 01/09 NE Primary Omeprazole 2q3-0faj-l /2015 [facility] 103-eeeace [facility] [id number] [facility] [place] Refill [place] jsi78733-t 01/09 01/09 NE Primary Omeprazole x81-89qs-b /2015 [facility] 8k4-07wi1l [facility] [id number] [facility] [place] Refill [place] 4802v122-1 01/09 01/09 NE Primary Omeprazole 4m4-834y-c /2015 [facility] 0l3-7go93h [facility] btm751 [facility] [place] Refill [place] 2n017h4m-9 01/09 01/09 NE Primary Omeprazole 6u4-8632-3 /2015 [facility] 64f-8dabcd [facility] e714a6 [facility] [place] Refill [facility] 5xv05et5-8 01/09 01/09 NE Primary Omeprazole 900-4518-8 /2015 [facility] h84-drb55a [facility] 7adc97 [facility] [place] Refill [facility] 791b0j84-m 01/09 01/09 NE Primary Omeprazole ee4-4553-8 /2015 [facility] 481-bd5a4f [facility] e12b96 [facility] [place] Refill [facility] i8c28772-6 01/09 01/09 NE Primary Omeprazole 3ed-44e4-b /2015 [facility] 596-786055 [facility] pq9757 [facility] [place] Refill [facility] 49wqw125-y 01/09 01/09 NE Primary Omeprazole 96d-4cd4-a /2015 [facility] g5u-680402 [facility] bdbd54 [facility] [place] Refill [place] 33akg733-9 01/09 01/09 NE Primary Omeprazole 8fc-4844-b /2015 [facility] dd5-a9ac2a [facility] [id number] [facility] [place] Refill [place] 6db30ngn-b 01/09 01/09 NE Primary Omeprazole 18e-4744-8 /2015 [facility] 701-72c3dd [facility] 754dbe [facility] [place] Refill [place] 00498t3f-3 01/09 01/09 NE Primary Omeprazole 44f-4859-b /2015 [facility] 3ed-8a0681 [facility] [id number] [facility] [place] Refill [place] 1237f34d-d 01/09 01/09 NE Primary Omeprazole z3b-6l38-i /2015 P [facility] Care 038-e31e46 [facility] b52bff [facility] [place] Refill/Denie 38i6ku2e-9 02/01 02/01 NE Primary d - Fosamax m0j-3z65-j /2015 [facility] 33e-05255w [facility] 6949db [facility] [place] Ref[place]/Denie f4d96e39-c 02/01 02/01 NE Primary d - Fosamax 92a-4eba-b /2015 [facility] a3g-963wt3 [facility] 7db36a [facility] [place] Refill/Denie 22dm3uz6-5 02/01 02/01 NE Primary d - Fosamax 6cd-452d-9 /2015 [facility] 0e4-86sk0u [facility] 99m869 [facility] [place] Ref[place]/Denie 6w77v7x2-8 02/01 02/01 NE Primary d - Fosamax 235-4d36-a /2015 [facility] 188-9x115f [facility] f0e2f8 [facility] [place] Ref[place]/Denie q8633k91-f 02/01 02/01 NE Primary d - Fosamax c39-18u2-m /2015 [facility] 79b-g6730w [facility] [id number] [facility] [place] Ref[place]/Denie 81r9ys0z-8 02/01 02/01 NE Primary d - Fosamax h1y-0503-2 /2015 [facility] 4k9-y9000u [facility] a39f8f [facility] [place] Ref[place]/Denie dg9w856m-4 02/01 02/01 NE Primary d - Fosamax 761-4845-9 /2015 [facility] 29c-5e8d85 [facility] cc2c2c [facility] [place] Ref[place]/Denie obr21790-8 02/01 02/01 NE Primary d - Fosamax 349-4613-9 /2015 [facility] o1v-qk5la6 [facility] ent665 [facility] [place] Ref[place]/Denie 9x02ja42-1 02/01 02/01 NE Primary d - Fosamax x78-7221-p /2015 [facility] 335-6c8409 [facility] af3a0d [facility] [place] Ref[place]/Denie 8h809042-8 02/01 02/01 NE Primary d - Fosamax 0f1-81e1-4 /2015 [facility] y99-48k946 [facility] b38d6b [facility] [place] Refill/Denie 201647jv-6 02/01 02/01 NE Primary d - Fosamax 4db-4eb4-b /2015 [facility] 81c-4v905j [facility] 94fc67 [facility] [place] refill meds 3392797w-d 02/08 02/08 NE Primary 258-4462-9 /2015 [facility] 85b-f65584 [facility] 302a6c [place] [facility] [place] refill meds s0euhg96-1 02/08 02/08 NE Primary 1r1-3y5j-6 /2015 [facility] 3p7-35c1p0 [facility] a91e86 [facility] [place] refill meds 843vl006-2 02/08 02/08 NE Primary 86c-46bb-8 /2015 [facility] 3df-8d4bb3 [facility] f42da9 [facility] [place] refill meds o18u8d2s-3 02/08 02/08 NE Primary 973-4bff-b /2015 [facility] a9n-11e707 [facility] d637db [place] [facility] [place] refill meds 14163705-0 02/08 02/08 NE Primary 546-4efe-8 /2015 [facility] 734-8cf5b3 [facility] f2e9e9 [facility] [place] refill meds 797a3f04-h 02/08 02/08 NE Primary i4k-4p75-u /2015 [facility] 085-635864 [facility] 71fc11 [place] [facility] [place] refill [facility]s 3ut6g4x5-f 02/08 02/08 NE Primary j0b-4t81-t /2015 [facility] 7v0-5x2k66 [facility] [id number] [place] [facility] [place] refill [facility]s i7iiy84h-e 02/08 02/08 NE Primary q58-85wo-4 /2015 [facility] z96-szh987 [facility] aa5f39 [facility] [place] refill meds g1170461-t 02/08 02/08 NE Primary 036-42f8-a /2015 [facility] j24-79431l [facility] [id number] [facility] [place] refill meds 4t362373-9 02/08 02/08 NE Primary h29-368i-h /2015 [facility] h23-h6j49o [facility] a8v959 [facility] [place] blood 00722d8o-6 03/21 03/21 NE Primary pressure j40-0qxd-9 /2015 [facility] o7r-9qgb48 [facility] 1d3e65 [facility] [place] blood 28kx1v60-e 03/21 03/21 NE Primary pressure ddc-4565-b /2015 [facility] 982-x0k663 [facility] 8669fb [facility] [place] blood 4i6e640m-6 03/21 03/21 NE Primary pressure v01-5642-5 /2015 Doir [facility] cea-6036d0 [facility] 6p5795 [facility] [place] blood 610cp28w-4 03/21 03/21 NE Primary pressure g96-1529-8 /2015 [facility] 4o2-37v3ot [facility] b6c5f7 [facility] [place] blood 42x6bg76-z 03/21 03/21 NE Primary pressure h40-035z-r /2015 [facility] 6u6-17o2e5 [facility] dd2cb6 [facility] [place] blood 0v137t68-v 03/21 03/21 NE Primary pressure ff5-4558-b /2015 [facility] h1b-15afc5 [facility] 4q3855 [facility] [place] blood 71738y63-7 03/21 03/21 NE Primary pressure 43c-46f6-9 /2015 [facility] fea-5449da [facility] abd8df [facility] [place] blood 7708ko91-3 03/21 03/21 NE Primary pressure q44-3k50-3 /2015 [facility] 310-047d73 [facility] yb7309 [place] [facility] [place] blood 064qi90t-3 03/21 03/21 NE Primary pressure 4ec-4b65-a /2015 [facility] a36-2784ng [facility] aa35a6 [place] Follow-Up 1 pa1949q5-o 04/20 04/20 NE Primary month 9u2-391c-7 [facility] j2q-p7o440 [facility] 8bf82e [place] [facility] [place] Follow-Up 1 q1zd9g12-y 04/20 04/20 NE Primary month 928-4338-8 [facility] 7p5-7r36hr [facility] [id number] [place] Follow-Up 1 40c2x0m8-g 04/20 04/20 NE Primary month ceb-4daa- [facility] 27b-35460s [facility] fabfee [facility] Follow-Up 1 0ow7582u-7 04/20 04/20 NE Primary month 5ab-45c1-9 [facility] ba9-294026 [facility] 6e6d99 [place] Follow-Up 1 l8t90116-6 04/20 04/20 NE Primary month 7ca-42dd- [facility] fdb-352527 [facility] f236bf [facility] Follow-Up 1 410333x9-1 04/20 04/20 NE Primary month t01-25ps-o /2015 [facility] 951-20b53c [facility] cb0e34 [facility] [place] Follow-Up 1 1f06ihq0-7 04/20 04/20 NE Primary month n84-6904-2 /2015 [facility] 8o0-78665w [facility] bh7171 [place] Follow-Up 1 l288419g-8 04/20 04/20 NE Primary month a52-305s-f /2015 [facility] 34a-dcd6fc [facility] a6ef77 [place] [facility] follow up bp 6sx86nvb-n 06/01 06/01 NE Primary meds 77e-4909- [facility] r41-638128 [facility] 1e62b1 [facility] [place] follow up bp [id number] 06/01 06/01 NE Primary meds 112-4511-b /2015 [facility] c3z-5tl419 [facility] 5c54ef [place] follow up bp 50s98295-6 06/01 06/01 NE Primary meds cca-4704-8 /2015 [facility] 570-175fd3 [facility] 9d8a38 [facility] [place] follow [place] bp 53518xb1-6 06/01 06/01 NE Primary meds 26c-4123-a /2015 [facility] 7w3-4v58bg [facility] 7a2c1e [place] follow up bp 9wlfto1m-i 06/01 06/01 NE Primary meds 4bd-480a-8 /2015 [facility] y51-98b376 [facility] fecd3a [place] follow up bp 9o0930sw-8 06/01 06/01 NE Primary meds 8d3-9319-b /2015 [facility] 474-2337a6 [facility] [id number] [place] follow [place] 2874qx7h-6 06/01 06/01 NE Primary meds fb0-4ba1-8 /2015 [facility] [id number] [facility] [id number] [place] Refill - [id number] 06/22 06/22 N E Primary Levothyroxin 7bb-[id number] /2015 [facility] [id number] [facility] [id number] [facility] [place] - [id number] 06/22 06/22 N E Primary Levothyroxin [id number]-r /2015 [facility] [id number] [facility] [id number] [facility] [place] - [id number] 06/22 06/22 N E Primary Levothyroxin [id number]-u /2015 [facility] [id number] [facility] [id number] [facility] [place] [facility] - [id number] 06/22 06/22 N E Primary Levothyroxin 6z9-4396-5 /2015 [facility] [id number] [facility] [id number] [facility] [place] [facility] - [id number] 06/22 06/22 N E Primary Levothyroxin l8v-7fkc-8 /2015 [facility] [id number] [facility] [id number] [facility] [place] [facility] - [id number] 06/22 06/22 N E Primary Levothyroxin s1j-6124-7 /2015 [facility] [id number] [facility] [id number] [facility] [place] Unknown [id number] 07/19 07/19 NE Primary 02b-4206-b /2016 [facility] [id number] [facility] [id number] [place] Unknown [id number] 07/19 07/19 NE Primary 7ed-4fca-a /2016 [facility] [id number] [facility] [id number] [facility] [place] Unknown [id number] 07/19 07/19 [facility] 8cd-492b- [facility] [id number] [facility] [id number] [facility] [place] Unknown [id number] 07/19 07/19 NE [facility] i70-0332-2 [facility] [id number] [facility] [id number] [facility] [place] Unknown [id number] 07/19 07/19 [facility] 448-4cdb- [facility] [id number] [facility] [id number] [facility] [place] [facility] - [id number] 08/11 08/11 N E Primary Omeprazole 73f-4286-a /2016 [facility] [id number] [facility] [id number] [facility] [place] [facility] - [id number] 08/11 08/11 N E Primary Omeprazole [id number]-b /2016 [facility] [id number] [facility] [id number] [facility] [place] [facility] - [id number] 08/11 08/11 N E Primary Omeprazole [id number]- [facility] [id number] [facility] [id number] [facility] [place] [facility] - [id number] 08/11 08/11 N E Primary Omeprazole [id number]-1 [facility] [id number] [facility] [id number] [facility] [place] Unknown [id number] 08/16 08/16 NE Primary 5m3-14ty-2 /2016 [facility] [id number] [facility] [id number] [facility] [place] Unknown [id number] 08/16 08/16 NE Primary ed3-4e29-a /2016 [facility] [id number] [facility] [id number] [facility] [place] Unknown [id number] 08/16 08/16 NE Primary cd3-4f30-b /2016 [facility] [id number]-[id number] [facility] [id number] [facility] [place] - [id number] 08/18 08/18 N E Primary Edarbi x21-539m-8 /2016 [facility] [id number] [facility] [id number] [facility] [place] Refill - [id number] 08/18 08/18 N E Primary Edarbi [id number] /2016 [id number] [id number] [facility] [place] Refill - [id number] 08/29 08/29 N E Primary Edarbi [id number] /2016 [facility] [phone] [facility] [id number] [facility] , [place] [facility] Outpatient [id number] Philip 05/17 05/17 Discharge BETHANY Roper /2016 d Surgical [facility] Outpatient [id number] Philip 05/17 05/17 [facility] Osito Roper /2016 Surgical [facility] Inpatient [id number] Leo 04/07 04/09 Active Ernie /2018 Neto swanson MD [facility] Inpatient [id number] Leo 04/07 04/09 [facility] Osito Klein /2018 Surgical [facility] Preadmit [id number] Leo Active Ernie swanson MD [facility] Procedures Procedure Code Date Perfomer Comments Source Excision, 36731 09/25/2013 [facility] interdigital ([facility] neuroma, single, each Joe nagy Fasciotomy 83.14 09/25/2013 [facility] Fasciotomy, foot 66630 09/25/2013 Surgi pooja and/or toe [facility] Other excision or 04.07 09/25/2013 Surg ica 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 [facility] 89668 09/25/2013 Surgical examination, chest, 2 Hos pital views, frontal and [place] lateral; ACL band replacement S urgical [facility] ankle - right [facility] Appendectomy 47.0 [facility] bunion right foot Surg [facility] Ch[facility]cystectomy [id number] [facility] gastro sleeve [facility] Hysterectomy [id number] [facility] left total hip [facility] right cataract [facility] Tonsillectomy [id number] [facility] Assessment and Plan No Data Provided for [...]
[2020-07-05] MEDS ORDERED: LIDOCAINE 1% W/EPI 1:100,000 MDV 50 ML VIAL ONE (10:35)
--- OUTSIDE RECORDS SUMMARY | 2020-07-05 10:35 | XMS REPORT | Continuity of Care Document ---
:1955 Author Organization [facility] t Address [address] [place] [address] Care Team Providers Name Role Phone JORGITO [...] osteoarthr it y of itis of itis [facility] both both Physici shoulders shoulders ans Hip pain, Hip pain, Problem Active Uni vers bilateral bilateral ity of [place] Physici ans Arthritis Arthritis Problem Active Uni vers of right of right ity of hip hip [place] Physici ans Primary Primary Problem Active Univers osteoarthr osteoarthr it y of itis of itis [facility] both knees both knees Ph ysici ans Primary Primary Problem Active Univers osteoarthr osteoarthr it y of itis of [facility]is [facility] [place] left hip left hip Physic i ans 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 ity of [place] Physici ans Status 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 DIABETES Problem Active 2013-09-27 Mem oria MELLITUS 04:01:41 l DIABETES [place] MELLITUS Active Problem 09/27/[address] [facility] right foot Problem Active 2013-09-27 M emoria pain 04:01:41 l right [place] foot pain Active Problem 09/27/[address] [facility] Acid Problem Active 2019-04-11 Memor ia reflux 04:00:46 l (finding) Acid [place] reflux (finding) Active Problem 04/11/2019 [facility] Depressive Problem Active 2019-04-11 M emoria disorder 04:00:46 l (disorder) [place] Depressive disorder (disorder) Active Problem 04/11/2019 [facility] SPI Essential Problem Active 2019-04-11 Dc moria hypertensi 04:00:46 l on [place] (disorder) Essential hypertensi on (disorder) Active Problem 04/11/2019 [facility] SPI Hyperlipid Problem Active 2019-04-11 M emoria emia 04:00:46 l (disorder) [place] Hyperlipid emia (disorder) Active Problem 04/11/2019 [facility] Hypothyroi Problem Active 2019-04-11 M emoria dism 04:00:46 l (disorder) [place] Hypothyroi dism (disorder) Active Problem 04/11/2019 [facility] SPI right foot Problem Active 2019-04-11 M emoria pain(Confi 04:00:46 l rmed) right [place] foot pain(Confi rmed) Active Problem 04/11/2019 [facility] Sleep Problem Active 2019-04-11 Memor ia apnea 04:00:46 l (finding) Sleep [place] apnea (finding) Active Problem 04/11/2019 [facility] Type B Problem Active 2019-04-11 Memor ia viral 04:00:46 l hepatitis Type B [place] nn (disorder) viral hepatitis (disorder) Active Problem 04/11/2019 [facility] Type 2 Problem Active 2019-01-11 Memor ia diabetes 02:45:02 l mellitus Type 2 [place] without diabetes complicati mellitus ons without complicati ons Active Problem 01/11/2019 [facility] Depressive Problem Active 2019-01-11 M emoria disorder, 02:45:02 l not [place] elsewhere Depressive classified disorder, not elsewhere classified Active Problem 01/11/2019 [facility] Chronic Problem Active 2019-01-11 Bart julian obstructiv 02:45:02 l e Chronic [place] pulmonary obstructiv disease, e unspecifie pulmonary d disease, unspecifie d Active Problem 01/11/2019 [facility] Female Problem Active 2019-01-11 Memor ia stress 02:45:02 l incontinen Female Herm danilo ce stress incontinen ce Active Problem 9 [facility] Anxiety Problem Active 2019-01-11 Bart julian disorder, 02:45:02 l unspecifie Anxiety Her matthews d disorder, unspecifie d Active Problem 01/11/2019 [facility] Vitamin D Problem Active 2019-01-11 Me moria deficiency 02:45:02 l Vitamin [place] D deficiency Active Problem 01/11/2019 [facility] Adjustment Problem Active 2019-01-11 M emoria disorder 02:45:02 l with [place] depressed Adjustment mood disorder with depressed mood Active Problem 01/11/2019 [facility] Morbid Problem Active 2019-01-11 Memor ia (severe) 02:45:02 l obesity Morbid [place] due to (severe) excess obesity calories due to excess calories Active Problem 01/11/2019 [facility] Essential Problem Active 2019-01-11 Me moria (primary) 02:45:02 l hypertensi [place] on Essential (primary) hypertensi on Active Problem 9 [facility] Neuropathy Problem Active 2019-01-11 M emoria 02:45:02 l [place] Neuropathy Active Problem 01/11/2019 [facility] Esophageal Problem Active 2019-01-11 M emoria reflux 02:45:02 l [place] Esophageal reflux Active Problem 01/11/2019 [facility] Mixed Problem Active 2019-01-11 Memor ia hyperlipid 02:45:02 l emia Mixed [place] hyperlipid emia Active Problem 01/11/2019 [facility] Hypothyroi Problem Active 2019-01-11 M emoria dism, 02:45:02 l unspecifie [place] d Hypothyroi dism, unspecifie d Active Problem 01/11/2019 [facility] OA Problem Active 2019-01-11 Memor ia (osteoarth 02:45:02 l ritis) OA [place] (osteoarth ritis) Active Problem 01/11/2019 [facility] Obesity, Problem Active 2019-01-11 Mem oria unspecifie 02:45:02 l d obesity Obesity, Her matthews severity, unspecifie unspecifie d obesity d obesity severity, type unspecifie d obesity type Active Problem 01/11/2019 [facility] Ischemic Problem Active 2019-01-11 Mem oria heart 02:45:02 l disease Ischemic [place] heart disease Active Problem 01/11/2019 [facility] 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, 02:45:02 l unspecifie [place] d Polyosteoa rthritis, unspecifie d Active Problem 01/11/2019 [facility] Other Problem Active 2019-01-11 Memor ia specified 02:45:02 l hypothyroi Other [place] nn dism specified hypothyroi dism Active Problem 01/11/2019 [facility] Constipati Problem Active 2019-01-11 M emoria on, 02:45:02 l unspecifie [place] d Constipati on, unspecifie d Active Problem 01/11/2019 [facility] Other Problem Active 2019-01-11 Memor ia specified 02:45:02 l diabetes Other [place] mellitus specified without diabetes complicati mellitus ons without complicati ons Active Problem 01/11/2019 [facility] Mixed Problem Active 2019-01-11 Memor ia incontinen 02:45:02 l ce urge Mixed [place] and stress incontinen ce urge and stress Active Problem 01/11/2019 [facility] Age-relate Problem Active 2019-01-11 M emoria d 02:45:02 l osteoporos [place] is without Age-relate current d pathologic osteoporos al is without fracture current pathologic al fracture Active Problem 01/11/2019 [facility] Other Problem Active 2019-01-11 Memor ia chronic 02:45:02 l pain Other [place] chronic pain Active Problem 01/11/2019 [facility] Simple Problem Active 2019-01-11 Memor ia chronic 02:45:02 l bronchitis Simple Herm danilo chronic bronchitis Active Problem 01/11/2019 [facility] Allergic Problem Active 2019-01-11 Mem oria rhinitis 02:45:02 l due to Allergic [place] pollen rhinitis due to pollen Active Problem 01/11/2019 [facility] Chronic Problem Active 2019-01-11 Bart julian idiopathic 02:45:02 l constipati Chronic Her matthews on idiopathic constipati on Active Problem 9 [facility] 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:45:02 l sterolemia Pure [place] , hyperchole unspecifie sterolemia d , unspecifie d Active Problem 01/11/2019 [facility] Venous Problem Active 2019-01-11 Memor ia insufficie 02:45:02 l ncy Venous [place] insufficie ncy Active Problem 01/11/2019 [facility] Screening Diagnosis Active 2017-03-18 Memoria for 03:01:40 l osteoporos [place] is Screening for osteoporos is Active Diagnosis 03/18/2017 [facility] Dysuria Diagnosis Active 2018-10-02 Me moria 02:46:01 l Dysuria [place] Active Diagnosis 10/02/2018 [facility] 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 02:45:02 l sterolemia 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 Active Problem 01/11/2019 [facility] Disorder Diagnosis Active 2017-03-18 M emoria of bone, 02:52:18 l unspecifie Disorder He rmann d of bone, unspecifie d Active Diagnosis 03/18/2017 [facility] Osteoarthr Problem Active 2019-01-11 M emoria itis of 02:45:02 l both [place] knees, Osteoarthr unspecifie itis of d both osteoarthr knees, itis type unspecifie d osteoarthr itis type Active Problem 01/11/2019 [facility] Drug-induc Diagnosis Active 2018-10-02 Memoria ed 02:46:01 l constipati [place] on Drug-induc ed constipati on Active Diagnosis 10/02/2018 [facility] Pain in Diagnosis Active 2017-12-29 Me moria left knee 02:47:22 l Pain in [place] left knee Active Diagnosis 12/29/2017 [facility] Right foot Diagnosis Active 2017-06-08 Memoria pain 03:45:39 l Right [place] foot pain Active Diagnosis 06/08/2017 [facility] Need for Diagnosis Active 2017-05-15 M emoria shingles 03:45:33 l vaccine Need for [place] shingles vaccine Active Diagnosis 05/15/2017 [facility] Low back Diagnosis Active 2017-05-06 M emoria pain 02:45:32 l Low back [place] pain Active Diagnosis 05/06/2017 [facility] Coronary Problem Active 2019-01-11 Mem oria artery 02:45:02 l disease Coronary [place] involving artery [place] disease coronary involving artery of [place] coronary heart artery of without [place] angina heart pectoris without angina pectoris Active Problem 01/11/2019 [facility] Slow Problem Active 2019-01-11 Memor ia transit 02:45:02 l constipati Slow [place] on transit constipati on Active Problem 9 [facility] Other Diagnosis Active 2017-11-22 Mem oria secondary 02:47:28 l osteoarthr Other [place] nn itis of secondary both knees osteoarthr itis of both knees Active Diagnosis 11/22/2017 [facility] Osteopenia Diagnosis Active 2018-10-02 Memoria of lumbar 02:46:01 l spine [place] Osteopenia of lumbar spine Active Diagnosis 10/02/2018 [facility] Suicide Diagnosis Active 2017-12-08 Me moria attempt 02:46:44 l Suicide [place] attempt Active Diagnosis 12/08/2017 [facility] Aspiration Diagnosis Active 2017-11-22 Memoria pneumonia 02:47:28 l due to [place] vomit, Aspiration unspecifie pneumonia d due to laterality vomit, , unspecifie unspecifie d d part of laterality lung , unspecifie d part of lung Active Diagnosis 11/22/2017 [facility] Adjustment Diagnosis Active 2018-02-11 Memoria insomnia 02:45:25 l [place] Adjustment insomnia Active Diagnosis 02/11/2018 [facility] Other Diagnosis Active 2017-11-22 Mem oria constipati 02:47:28 l on Other [place] constipati on Active Diagnosis 11/22/2017 [facility] Urge Problem Active 2019-01-11 Memor ia incontinen 02:45:02 l ce of Urge [place] urine incontinen ce of urine Active Problem 01/11/2019 [facility] PAD Problem Active 2019-01-11 Memor ia (periphera 02:45:02 l l artery PAD [place] disease) (periphera l artery disease) Active Problem 01/11/2019 [facility] Pain in Diagnosis Active 2017-12-29 Me moria right knee 02:47:22 l Pain in [place] right knee Active Diagnosis 12/29/2017 [facility] Hand, foot Diagnosis Active 2017-09-26 Memoria and mouth 02:46:16 l disease Hand, [place] foot and mouth disease Active Diagnosis 09/26/2017 [facility] NERY Problem Active 2019-01-11 Memor ia (obstructi 02:45:02 l ve sleep NERY [place] apnea) (obstructi ve sleep apnea) Active Problem 01/11/2019 [facility] Spondylosi Diagnosis Active 2018-02-23 Memoria s of 02:46:15 l lumbosacra [place] l region Spondylosi without s of myelopathy lumbosacra or l region radiculopa without thy myelopathy or radiculopa thy Active Diagnosis 02/23/2018 [facility] Unspecifie Problem Active 2015-06-30 M emoria d vitamin 04:04:16 l D [place] deficiency Unspecifie d vitamin D deficiency Active Problem 06/30/2015 [facility] Mixed Problem Active 2015-06-30 Memor ia hyperlipid 04:04:16 l emia Mixed [place] hyperlipid emia Active Problem 06/30/2015 [facility] Unspecifie Problem Active 2015-06-30 M emoria d 04:04:16 l hypothyroi [place] dism Unspecifie d hypothyroi dism Active Problem 06/30/2015 [facility] Depressive Problem Active 2015-06-30 M emoria disorder, 04:04:16 l not [place] elsewhere Depressive classified disorder, not elsewhere classified Active Problem 06/30/2015 [facility] incontinen Problem Active 2015-06-30 M emoria ce Female 04:04:16 l stress [place] incontinen ce Female stress Active Problem 06/30/2015 [facility] Pure Problem Active 2015-06-30 Memor ia hyperchole 04:04:16 l sterolemia Pure [place] hyperchole sterolemia Active Problem 06/30/2015 [facility] Diabetes Problem Active 2015-06-30 Mem oria mellitus 04:04:16 l without Diabetes Nica nn mention of mellitus complicati without on, type mention of II or complicati unspecifie on, type d type, II or uncontroll unspecifie ed d type, uncontroll ed Active Problem 5 [facility] Diabetes Problem Active 2015-06-30 Mem oria mellitus 04:04:16 l without Diabetes Nica nn mention of mellitus complicati without on, type mention of II or complicati unspecifie on, type d type, II or not stated unspecifie as d type, uncontroll not stated ed as uncontroll ed Active Problem 5 [facility] Esophageal Problem Active 2015-06-30 M emoria reflux 04:04:16 l [place] Esophageal reflux Active Problem 06/30/2015 [facility] Morbid Problem Active 2015-06-30 Memor ia obesity 04:04:16 l Morbid [place] obesity Active Problem 06/30/2015 [facility] Hypertensi Problem Active 2015-06-30 M emoria on benign 04:04:16 l [place] Hypertensi on benign Active Problem 06/30/2015 [facility] Unspecifie Diagnosis Active 2013-10-24 Memoria d 04:15:42 l constipati [place] on Unspecifie d constipati on Active Diagnosis 10/24/2013 [facility] Urge Diagnosis Active 2014-07-24 Mem oria incontinen 04:01:08 l ce Urge [place] incontinen ce Active Diagnosis 07/24/2014 [facility] Other Diagnosis Active 2015-02-18 Mem oria specified 02:58:16 l acquired Other [place] hypothyroi specified dism acquired hypothyroi dism Active Diagnosis 02/18/2015 [facility] Reflux Diagnosis Active 2013-12-31 Mem oria esophagiti 02:49:38 l s Reflux [place] esophagiti s Active Diagnosis 12/31/2013 [facility] Allergic Diagnosis Active 2013-12-31 M emoria rhinitis 02:49:38 l due to Allergic [place] pollen rhinitis due to pollen Active Diagnosis 12/31/2013 [facility] Anxiety Diagnosis Active 2014-03-31 Me moria 02:52:54 l Anxiety [place] Active Diagnosis 03/31/2014 [facility] Cervicalgi Diagnosis Active 2015-01-21 Memoria a 03:03:01 l [place] Cervicalgi a Active Diagnosis 01/21/2015 [facility] Osteopenia Diagnosis Active 2015-02-18 Memoria 02:58:16 l [place] Osteopenia Active Diagnosis 02/18/2015 [facility] Urinary Diagnosis Active 2014-05-23 Me moria frequency 04:03:32 l Urinary [place] frequency Active Diagnosis 05/23/2014 [facility] Immunizati Diagnosis Active 2014-03-31 Memoria on 02:52:54 l counseling [place] Immunizati on counseling Active Diagnosis 03/31/2014 [facility] Flu Diagnosis Active 2014-03-31 Mem oria vaccine 02:52:54 l need Flu [place] vaccine need Active Diagnosis 03/31/2014 [facility] COPD Diagnosis Active 2015-01-21 Mem oria (chronic 03:03:01 l obstructiv COPD [place] e (chronic pulmonary obstructiv disease) e pulmonary disease) Active Diagnosis 01/21/2015 [facility] Autonomic Diagnosis Active 2015-01-21 Memoria neuropathy 03:03:01 l [place] Autonomic neuropathy Active Diagnosis 01/21/2015 [facility] Bad odor Diagnosis Active 2014-07-24 M emoria of urine 04:01:08 l Bad odor [place] of urine Active Diagnosis 07/24/2014 [facility] Geniculate Diagnosis Active 2014-10-10 Memoria herpes 02:57:43 l zoster [place] infection Geniculate herpes zoster infection Active Diagnosis 10/10/2014 [facility] Acute Diagnosis Active 2014-08-03 Mem oria bronchitis 03:49:49 l Acute [place] bronchitis Active Diagnosis 08/03/2014 [facility] Obesity Diagnosis Active 2015-02-18 Me moria (BMI 02:58:16 l 30-39.9) Obesity Nica nn (BMI 30-39.9) Active Diagnosis 02/18/2015 [facility] Neuropathy Diagnosis Active 2015-02-18 Memoria 02:58:16 l [place] Neuropathy Active Diagnosis 02/18/2015 [facility] Cervicalgi Diagnosis Active 2015-06-30 Memoria a 04:04:16 l [place] Cervicalgi a Active Diagnosis 06/30/2015 [facility] Insomnia Diagnosis Active 2015-06-30 M emoria 04:04:16 l Insomnia [place] Active Diagnosis 06/30/2015 [facility] Other Diagnosis Active 2015-06-30 Mem oria disorders 04:04:16 l of Other [place] autonomic disorders nervous of system autonomic nervous system Active Diagnosis 06/30/2015 [facility] Disorder Diagnosis Active 2016-03-30 M emoria of bone 03:00:45 l density Disorder Nica nn and of bone structure, density unspecifie and d structure, unspecifie d Active Diagnosis 03/30/2016 [facility] Encounter Diagnosis Active 2016-03-30 Memoria for 03:00:45 l immunizati [place] on Encounter for immunizati on Active Diagnosis 03/30/2016 [facility] Fatigue Diagnosis Active 2015-07-08 Me moria 04:01:47 l Fatigue [place] Active Diagnosis 07/08/2015 [facility] Osteopenia Diagnosis Active 2015-07-08 Memoria 04:01:47 l [place] Osteopenia Active Diagnosis 07/08/2015 [facility] Breast Diagnosis Active 2015-07-08 Mem oria screening 04:01:47 l Breast [place] screening Active Diagnosis 07/08/2015 [facility] Immunizati Diagnosis Active 2015-07-08 Memoria on 04:01:47 l counseling [place] Immunizati on counseling Active Diagnosis 07/08/2015 [facility] Shoulder Diagnosis Active 2015-07-08 M emoria pain, left 04:01:47 l Shoulder [place] pain, left Active Diagnosis 07/08/2015 [facility] Left Diagnosis Active 2016-03-23 Mem oria anterior 03:04:36 l fascicular Left [place] block anterior fascicular block Active Diagnosis 03/23/2016 [facility] Localized Diagnosis Active 2016-03-30 Memoria edema 03:00:45 l [place] Localized edema Active Diagnosis 03/30/2016 [facility] Stress Diagnosis Active 2016-03-30 Mem oria incontinen 03:00:45 l ce Stress [place] (female) incontinen (male) ce (female) (male) Active Diagnosis 03/30/2016 [facility] Obstructiv Diagnosis Active 2016-03-30 Memoria e sleep 03:00:45 l apnea [place] (adult) Obstructiv (pediatric e sleep ) apnea (adult) (pediatric ) Active Diagnosis 03/30/2016 [facility] Herpes Diagnosis Active 2016-05-04 Mem oria zoster 03:05:19 l without Herpes [place] complicati zoster on without complicati on Active Diagnosis 05/04/2016 [facility] Memory Problem Active 2019-01-11 Memor ia change 02:45:02 l Memory [place] change Active Problem 01/11/2019 [facility] Bipolar 1 Problem Active 2019-01-11 Me moria disorder 02:45:02 l Bipolar [place] 1 disorder Active Problem 01/11/2019 [facility] Urinary Diagnosis Active 2018-05-28 Me moria tract 03:46:26 l infection Urinary Herm danilo without tract hematuria, infection site without unspecifie hematuria, d site unspecifie d Active Diagnosis 05/28/2018 [facility] Encounter Diagnosis Active 2018-04-13 Memoria for 02:46:48 l gynecologi [place] po[place]ja Encounter examinatio for n without gynecologi abnormal pooja finding examinatio n without abnormal finding Active Diagnosis 04/13/2018 [facility] Breast Diagnosis Active 2018-04-13 Mem oria screening 02:46:48 l Breast [place] screening Active Diagnosis 04/13/2018 [facility] Unilateral Problem 2019-2019-04-11 2019-04-11 Memoria primary 0-07 04:00:46 04:00:46 l osteoarthr 05:00: [place] itis, left Unilateral 00 knee primary osteoarthr itis, left knee 04/07/2019 04/11/2019 [facility] Other Problem 2016-2017-05-19 2017-05-19 M emoria enthesopat 07-17 05:01:44 05:01:44 l hy of Other 06:00: [place] right foot enthesopat 00 hy of right foot 05/17/2017 05/19/2017 [facility] Allergies, Adverse Reactions, Alerts Allergy Allergy Status Severity Reaction(s) Onset Inactive Treating Comm ents Source Name Type Date Date Clinician sulfa sulfa Active Info Not 2017-07 Memoria Available 0-11 l 00:00: [place] 00 Bactrim drug Active [facility] allergy [facility] [place] [facility] ans sulfa drug Active [facility] [place] [facility] Bactrim Bactrim Active Memoria l [place] sulfamet sulfamet Active Memori a hoxazole hoxazole l [place] sulfa sulfa Active Memoria drugs drugs l [place] Family History Family Member Diagnosis Comments Start Date Stop Date Source Sister Family history of Univers ity of diabetes [place] Physicia ns insipidus Unknown Family Family History 2014-08-03 2014-08-03 Memori al [place] Member 03:49:49 03:49:49 Social History Social Habit Start Date Stop Date Quantity Comments Source TobaccoUse: 2016-06-01 00:00:00 2016-06-01 Bart Mcneill 00:00:00 Smoking Status Start Date Stop Date Source Social History 2013-09-19 18:23:40 2013-09-19 18:23:40 [facility] Medications Ordered Filled Start Stop Current Ordering [...] [place] 00 DAILY. Physici ans tiZANidine tiZANidine 2018- Yes LEO 1 Q0.3333D TAKE 1 Univers HCl - 4 MG HCl - 4 MG 0-14 JORGITO CAPSULE BY ity of Oral Oral 00:00: M.D. MOUTH [place] Capsule Capsule 00 THREE Physici TIMES A ans DAY Cephalexin 2018-07 No 500 mg = 2 M emoria 0-09 caps, Cap, l 02:00: Oral, QID, first dose 04/08/19 21:00:00 CDT, Urinary Tract Infection multivitami 2018-07 No 1 tabs, Mem oria n with 0-08 Tab, Oral, l minerals 14:00: Daily, first dose 04/08/19 9:00:00 CDT Vitamin C 2018-07 No 500 mg = 1 Me moria 0-08 tabs, Tab, l 14:00: Oral, Daily, first dose 04/08/19 9:00:00 CDT Xarelto 2018- No 10 mg = 1 Memor ia 0-08 tabs, Tab, l 14:00: Oral, Daily, first dose 04/08/19 9:00:00 CDT myrbetriq 2018-07 No 50 mg, Memori a 0-08 Misc, l 14:00: Oral, Daily, first dose 04/08/19 9:00:00 CDT, Patient's Own Meds duloxetine 2018- No 60 mg = 1 Me moria 0-08 caps, l 14:00: Cap-DR, [place] Oral, Daily, first dose 04/08/19 9:00:00 CDT, Patient's Own Meds rexulti 2018- No 1 mg, Memoria 0-08 Misc, l 14:00: Oral, Daily, first dose 04/08/19 9:00:00 CDT, Patient's Own Meds Omeprazole 2018- No 20 mg = 1 Me moria 0-08 caps, l 14:00: Cap-EC, [place] 00 Oral, Daily, first dose 04/08/19 9:00:00 CDT Vancomycin 2018- No MRSA Memoria 0-08 colonizati l 03:00: on or infection, 1 gm, IV Piggyback, q12hr, infuse over 60 minutes, first dose 04/07/19 22:00:00 CDT, stop date 04/08/19 13:08:00 CDT Pravastatin 2018- No 20 mg = 1 M emoria 0-08 tabs, Tab, l 02:00: Oral, qHS, first dose 04/07/19 21:00:00 CDT, Patient's Own Meds Hydroxyzine 2018-07 No 25 mg = 1 M emoria 0-08 tabs, Tab, l 02:00: Oral, qPM PRN for anxiety, first dose 04/07/19 21:00:00 CDT, Patient's Own Meds Lisinopril 2018-07 No 20 mg = 1 Me moria 0-08 tabs, Tab, l 02:00: Oral, BID, first dose 04/07/19 21:00:00 CDT, Patient's Own Meds ferrous 2018-07 No 325 mg = 1 Bart julian sulfate 0-08 tabs, Tab, l 01:00: Oral, BIDPC, first dose 04/07/19 20:00:00 CDT Cefazolin 2018-07 No 1 gm, IV Bart julian 0-08 Piggyback, l 00:00: q8hr, infuse over 30 minutes, first dose 04/07/19 19:00:00 CDT, stop date 04/08/19 13:08:00 CDT, Prophylaxi s Buspirone 2018-07 No 30 mg, Memori a 0-07 Tab, Oral, l 22:00: BID, first dose 04/07/19 17:00:00 CDT, Patient's Own Meds Ketorolac 2018-07 No 15 mg = 1 Mem oria 0-07 mL, l 19:47: Injection, IV Push, q8hr PRN for breakthrou gh pain, first dose 04/07/19 14:47:00 CDT, stop date 04/12/19 14:30:00 CDT Hydroxyzine 2018-07 No 25 mg = 1 M emoria 0-07 tabs, Tab, l 19:47: Oral, QID [place] 00 PRN for anxiety, first dose 04/07/19 14:47:00 CDT, Patient's Own Meds Acetaminoph 2018-07 No Notes: Max Memoria en 325 MG / 0-07 4gm l Hydrocodone 19:47: acetaminop [place] Bitartrate 00 hen in 24 10 MG Oral hours Tablet [[place] 10/325] Acetaminoph 2018-07 No Notes: Max Memoria en 325 MG / 0-07 4gm l Hydrocodone 19:47: acetaminop [place] Bitartrate 00 hen in 24 7.5 MG Oral hours Tablet [[place] 7.5/325] Naloxone 2018-07 No 0.4 mg = 1 Mem oria 0-07 mL, l 19:43: Injection, [place] 00 IV Push, q2min PRN for other (see comment), first dose 04/07/19 14:43:00 CDT Benadryl 2018-07 No 25 mg = Memori a 0-07 0.5 mL, l 19:43: Injection, [place] 00 IM, q6hr PRN for itching, first dose 04/07/19 14:43:00 CDT Morphine 2018-07 No 30 mL, POULTRYMAN Mem oria 0-07 Dose (mg): l 19:43: 1, Lockout [place] 00 Interval (min): 5, Limit Amount (mg): 5, Limit Period (hr): 1, Continuous Rate (mg/hr): 0, Loading Dose (mg): 2, RN Adm Bolus (mg): 1, Bolus Dose Lockout (hr): 1, IV, POULTRYMAN, start date 04/07/19 14:43:00 CDT Zofran ODT 2018-07 No 4 mg = 1 Mem oria 0-07 tabs, l 19:43: Tab-Dis, [place] 00 Oral, q6hr PRN for nausea/vom iting, first dose 04/07/19 14:43:00 CDT Bisacodyl 2018-07 No 10 mg = 1 Mem oria 0-07 supp, l 19:43: Supp, [place], [place] 00 Daily PRN for constipati on, first dose 04/07/19 14:43:00 CDT promethazin 2018-07 No 12.5 mg, Me moria e IVPB 0-07 IV l 19:43: Piggyback, [place] 00 q4hr PRN for nausea/vom iting, infuse over 15 minutes, first dose 04/07/19 14:43:00 CDT Temazepam 2018-07 No 15 mg = 1 Mem oria 0-07 caps, Cap, l 19:43: Oral, Once a day (at bedtime) PRN for sleep, first dose 04/07/19 14:43:00 CDT [place] Enema 2018-07 No 133 mL, Mem oria 0-07 Enema, [place], l 19:43: Once PRN [place] 00 for constipati on, first dose 04/07/19 14:43:00 CDT Milk of 2018-07 No 30 mL, Memoria Magnesia 0-07 Susp, l 19:43: Oral, qHS [place] 00 PRN for constipati on, first dose 04/07/19 14:43:00 CDT Acetaminoph 2018-07 No Notes: Max Memoria en 0-07 4gm l 19:43: acetaminop hen in 24 hours Saline Lock 2018-07 No 10 mL, Bart julian Flush 0-07 Soln, IV l 19:43: Push, As Indicated, first dose 04/07/19 14:43:00 CDT LR 1,000 mL 2018-07 No 1,000 mL, M emoria 0-07 IV, 60 l 19:43: mL/hr, start date 04/07/19 14:43:00 CDT, Change rate to 45ml/hr if using POULTRYMAN or convert to [place] Demerol HCl 2018-07 No 12.5 mg = M emoria 0-07 0.5 mL, l 18:17: Injection, IV Push, q5min PRN for shivers, order duration: 4 doses, first dose 04/07/19 13:17:00 CDT, stop date Limited # of times Fentanyl 2018-07 No 50 mcg = 1 Mem oria 0-07 mL, l 18:17: Injection, IV Push, q5min PRN for Pain Mild (1-3), order duration: 2 doses, first dose 04/07/19 13:17:00 CDT, stop date Limited # of times promethazin 2018- No 12.5 mg, Me moria e IVPB 0-07 IV l 18:17: Piggyback, [place] Once PRN for nausea/vom iting, infuse over 15 minutes, first dose 04/07/19 13:17:00 CDT Morphine 2018- No 1 mg, IV Memor ia 0-07 Push, l 18:17: q5min PRN for Pain Moderate (4-6), order duration: 5 doses, first dose 04/07/19 13:17:00 CDT, stop date Limited # of times Misc 2018-07 No 900 mL, Memoria Medication 0-07 Soln-IV, l 18:06: IV, Once, first dose 04/07/19 13:06:00 CDT, stop date 04/07/19 13:06:00 CDT neostigmine 2018- No 3 mg = 3 Me moria 0-07 mL, l 17:38: Injection, [place] 00 IV, Once, first dose 04/07/19 12:38:00 CDT, stop date 04/07/19 12:38:00 CDT glycopyrrol 2018-07 No 0.2 mg = 1 Memoria ate 0-07 mL, l 17:38: Injection, [place] 00 IV, Once, first dose 04/07/19 12:38:00 CDT, stop date 04/07/19 12:38:00 CDT propofol 2018- No 50 mg = 5 Bart julian 0-07 mL, l 17:34: Emulsion, [place] 00 IV, Once, first dose 04/07/19 12:34:00 CDT, stop date 04/07/19 12:34:00 CDT glycopyrrol 2018- No 0.2 mg = 1 Memoria ate 0-07 mL, l 17:15: Injection, [place] 00 IV, Once, first dose 04/07/19 12:15:00 CDT, stop date 04/07/19 12:15:00 CDT glycopyrrol 2018-07 No 0.2 mg = 1 Memoria ate 0-07 mL, l 16:43: Injection, [place] 00 IV, Once, first dose 04/07/19 11:43:00 CDT, stop date 04/07/19 11:43:00 CDT vancomycin 2019- No 1 gm, Memori a 0-07 Powder-Inj l 16:15: , IV, [place] 00 Once, first dose 04/07/19 11:15:00 CDT, stop date 04/07/19 11:15:00 CDT rocuronium 2019- No 40 mg = 4 Me moria 0-07 mL, l 16:10: Injection, [place] 00 IV, Once, first dose 04/07/19 11:10:00 CDT, stop date 04/07/19 11:10:00 CDT ondansetron 2018- No 4 mg = 2 Me moria 0-07 mL, l 16:00: Injection, [place] 00 IV, Once, first dose 04/07/19 11:00:00 CDT, stop date 04/07/19 11:00:00 CDT dexamethaso 2018- No 4 mg = 1 Me moria ne 0-07 mL, l 16:00: Injection, [place] 00 IV, Once, first dose 04/07/19 11:00:00 CDT, stop date 04/07/19 11:00:00 CDT propofol 2018- No 150 mg = Memor ia 0-07 15 mL, l 15:58: Emulsion, [place] 00 IV, Once, first dose 04/07/19 10:58:00 CDT, stop date 04/07/19 10:58:00 CDT rocuronium 2018- No 10 mg = 1 Me moria 0-07 mL, l 15:58: Injection, [place] 00 IV, Once, first dose 04/07/19 10:58:00 CDT, stop date 04/07/19 10:58:00 CDT succinylcho 2019- No 100 mg = 5 Memoria line 0-07 mL, l 15:58: Injection, [place] 00 IV, Once, first dose 04/07/19 10:58:00 CDT, stop date 04/07/19 10:58:00 CDT fentaNYL 2018- No 100 mcg = Bart julian 0-07 2 mL, l 15:58: Injection, [place] 00 IV, Once, first dose 04/07/19 10:58:00 CDT, stop date 04/07/19 10:58:00 CDT lidocaine 2019- No 100 gm = 5 Me moria 0-07 mL, l 15:58: Injection, IV, Once, first dose 04/07/19 10:58:00 CDT, stop date 04/07/19 10:58:00 CDT ceFAZolin 2019- No 2 gm, Memoria 0-07 Powder-Inj l 15:58: , IV, Once, first dose 04/07/19 10:58:00 CDT, stop date 04/07/19 10:58:00 CDT ropivacaine 2019- No 275 mg = Me moria 0-07 55 mL, l 15:44: Injection, Nerve Block, Once, first dose 04/07/19 10:44:00 CDT, stop date 04/07/19 10:44:00 CDT fentaNYL 2018- No 100 mcg = Bart julian 0-07 2 mL, l 15:31: Injection, IV, Once, first dose 04/07/19 10:31:00 CDT, stop date 04/07/19 10:31:00 CDT midazolam 2019- No 2 mg = 2 Bart julian 0-07 mL, l 15:30: Injection, IV, Once, first dose 04/07/19 10:30:00 CDT, stop date 04/07/19 10:30:00 CDT Ciprofloxac 2019- Yes 500 mg = 1 Memoria in 500 MG 0-07 tabs, l Oral Tablet 15:07: Oral, Nica nn [Cipro] 00 q12hr, 0 Refill(s) Vancomycin 2018- No Increased Me moria 0-07 MRSA rate l 15:00: (facility/ procedure) , 1 gm, IV Piggyback, Once, infuse over 60 minutes, first dose 04/07/19 10:00:00 CDT, stop date 04/07/19 10:00:00 CDT Cefazolin 2019- No 2 gm, IV Bart julian 0-07 Piggyback, l 15:00: Once, infuse over 30 minutes, first dose 04/07/19 10:00:00 CDT, stop date 04/07/19 10:00:00 CDT, Prophylaxi s Pain Ease 2018-07 No 1 sprays, Mem oria topical 0-07 [place], l spray 15:00: TOP, Once, [place] first dose 04/07/19 10:00:00 CDT, stop date 04/07/19 10:00:00 CDT, Apply topically for 4 - 10 seconds from a distance of 3 - 7 inches from the procedure site LR 1,000 mL 2018-07 No 1,000 mL, M emoria 0-07 IV, 100 l 14:18: mL/hr, [place] 00 start date 04/07/19 9:18:00 CDT, For Adults Xarelto 10 Xarelto 10 2018-07 Yes LEO 1 QD TAKE 1 [facility] MG Oral MG Oral 0-07 [place] TABLET it y of Tablet Tablet 00:00: M.D. DAILY Physici ans Ondansetron Ondansetron 2018-07 Yes LEO [...] ity of Ointment Ointment 00:00: M.D. TO 00 AFFECTED Physici AREA(S) 3 ans TIMES A DAY Aspirin 2019-0 Yes 81 mg, Memoria 9-25 Oral, l 16:33: Daily, [place] 00 stopping 03/31, 0 Refill(s) Rexulti 2019-0 Yes 1 mg, Memoria 9-25 Oral, l 16:33: Daily, 0 [place] 00 Refill(s) Prednisone 2019-0 Yes 20 mg, Memor ia 9-25 Oral, l 16:33: Daily, 0 [place] 00 Refill(s) Pravastatin 2019-0 Yes 20 mg, Bart julian 9-25 Oral, qHS, l 16:33: 0 [place] 00 Refill(s) Omeprazole 2019-0 Yes 20 mg, Memor ia 9-25 Oral, l 16:33: Daily, 0 [place] 00 Refill(s) Myrbetriq 2019-0 Yes 50 mg, Memori a 9-25 Oral, l 16:32: Daily, 0 [place] 00 Refill(s) Lisinopril 2018-0 Yes 20 mg, Memor ia 9-25 Oral, BID, l 16:32: 0 [place] 00 Refill(s) Linzess 0 Yes 72 mcg, Memoria 9-25 Oral, qHS, l 16:32: 0 [place] 00 Refill(s) Hydroxyzine 2019-0 Yes 25 mg, Bart julian 9-25 Oral, BID, l 16:31: 0 [place] 00 Refill(s) duloxetine 0 Yes 60 mg, Memor ia 9-25 Oral, BID, l 16:31: 0 [place] 00 Refill(s) Buspirone 0 Yes 30 mg, Memori a 9-25 Oral, BID, l 16:31: 0 [place] 00 Refill(s) Victoza Yes [place] 1.8 mg Memor ia 7-13 [place] l 02:45: [place] Tumeric Yes [place] not Memoria 7-13 [place] defined l 02:45: [place] 02 Levothyroxi 2018- Yes [place] 1 tablet Memoria ne Sodium 7-13 [place] l 02:45: [place] Naproxen 2018- Yes [place] 1 tablet Me moria 7-13 [place] l 02:45: [place] 02 Marycarmen BD 2018- Yes [place] as [facility]oria ultra fine 7-13 [place] directed l pen needles 02:45: [place] 02 Viibryd 2018- Yes [place] 1 tablet Mem oria 7-13 [place] l 02:45: [place] One Touch 2018- Yes [place] use Memor ia Glucometer 7-13 [place] l with test 02:45: [place] and 02 lancets Diabetes Yes [place] not Memori a Support 7-13 [place] defined l 02:45: [place] Acidophilus 2019-0 Yes [place] not Mem oria 7-13 [place] defined l 02:45: [place] Osteo 2019-0 Yes [place] not Memoria Bi-Flex 01-11 [place] defined l Triple 02:45: [place] Hensley 3 2019-0 Yes [place] 1 capsule Me moria 7- [place] l 02:45: [place] Multi-betic 2019-0 Yes [place] not Mem oria Diabetes 01-11 [place] defined l 02:45: [place] Cayenne 2019-0 Yes [place] not Memoria 01-11 [place] defined l 02:45: [place] Fish Oil 2019-0 Yes [place] 1 capsule M emoria 01-11 [place] l 02:45: [place] Calcium + D 2019-0 Yes [place] 2 tablet Memoria 01-11 [place] with food l 02:45: [place] Fosamax 2019-0 Yes [place] 1 tablet Mem oria 01-11 [place] l 02:45: [place] Potassimin 2019-0 Yes [place] 1 tablet Memoria 01-11 [place] l 02:45: [place] Vitamin 2019-0 Yes [place] 1 tablet Mem oria B-12 01-11 [place] l 02:45: [place] Flintstones 2019-0 Yes [place] 1 tablet [facility] Plus Iron 01-11 [place] l 02:45: [place] Allergy 2019-0 Yes [place] 1 tablet Mem oria Relief 01-11 [place] as needed l 02:45: [place] Cinnamon 2019-0 Yes [place] not Memori a 01-11 [place] defined l 02:45: [place] Clopidogrel 2019-0 Yes [place] 1 tablet Memoria Bisulfate - [place] l 02:45: [place] Niacin 2019-0 Yes [place] 1 tablet Bart julian 01-11 [place] l 02:45: [place] Vitamin D 2019-0 Yes [place] 5 tablets Memoria 713 [place] l 02:45: [place] CoQ-10 2019-0 Yes [place] 1 capsule Mem oria 7-13 [place] with a l 02:45: meal [place] Benadryl 2019-0 Yes [place] 1 tablet Me moria Allergy 7-13 [place] as needed l 02:45: [place] AZO Bladder 2019-0 Yes [place] not Mem oria Control/Go- 7-13 [place] defined l Less 02:45: [place] Aspir-81 2019-0 Yes [place] 1 tablet Me moria 7-13 [place] l 02:45: [place] Pentazocine 2019-0 Yes [place] not Mem oria -Naloxone 7-13 [place] defined l HCl 02:45: [place] Viibryd 2019-0 Yes [place] 1 tablet Mem oria 7-13 [place] with food l 02:45: [place] Pravastatin 2019-0 Yes [place] 1 tablet Memoria Sodium 7-13 [place] l 02:45: [place] Fosfree 2019-0 Yes [place] 2 tablet Mem oria 7-13 [place] l 02:45: [place] One A Day 2018-0 Yes [place] as Memor ia Multi 7-13 [place] directed l Vitamin 02:45: [place] HydrOXYzine 2019-0 Yes [place] TAKE 1 M emoria HCl 7-13 [place] TABLET BY l 02:45: MOUTH [place] EVERY DAY NEEDED Aripiprazol 2019-0 Yes [place] TAKE 1 M emoria e 7-13 [place] TABLET BY l 02:45: MOUTH [place] EVERY DAY BusPIRone 2019-0 Yes [place] TAKE 1 Mem oria HCl 7-13 [place] TABLET BY l 02:45: MOUTH [place] TWICE A DAY Cephalexin 2019-0 Yes [place] 1 tablet Memoria 7-13 [place] l 02:45: [place] Lisinopril 2019-0 Yes [place] 1 tablet Memoria 7-13 [place] l 02:45: [place] Sleep Aid 2019-0 Yes [place] 1 tablet M emoria 7-13 [place] at bedtime l 02:45: as needed [place] Duloxetine 2019-0 Yes [place] 1 capsule Memoria HCl 7-13 [place] l 02:45: Naproxen 2019-0 Yes [place] 1 tablet Me moria 7-13 [place] with food l 02:45: or milk as needed Omeprazole 2019-0 Yes [place] 1 capsule Memoria 7-13 [place] l 02:45: Linzess 2019-0 Yes [place] 1 capsule Me moria 7-13 [place] l 02:45: Levothyroxi 2019-0 Yes [place] 1 tablet Memoria ne Sodium 4-23 [place] on an l 00:00: empty stomach in the morning Levaquin 2019-0 Yes [place] 1 tablet Me moria 4-23 [place] l 00:00: Industry 2019-0 Yes [place] 1 tablet Bart julian Thyroid 4-18 [place] on an l 00:00: empty stomach Cymbalta 2019-0 Yes [place] 1 capsule M emoria 3-28 [place] l 02:45: Cephalexin 2019-0 Yes [place] 1 tablet Memoria 3-28 [place] l 02:45: Levaquin 2019-0 Yes [place] 1 tablet Me moria 1-18 [place] l 00:00: Prolia 2019-0 Yes [place] 60mg/ml Memor ia 1-18 [place] l 00:00: Omeprazole 2019-0 Yes [place] 1 capsule Memoria 1-18 [place] l 00:00: Meloxicam 2019-0 Yes [place] 1 tablet M emoria 1-12 [place] l 03:45: 45 Gabapentin 2019-0 Yes [place] 2 capsule Memoria 1-11 [place] l 00:00: Macrobid 2019-0 Yes [place] 1 capsule M emoria 1-10 [place] with food l 00:00: Cephalexin 2018-1 Yes [place] 1 tablet Memoria 1-19 [place] l 00:00: Acetaminoph Acetaminoph 2018-1 Yes LEO TAKE 1 [facility] en-Codeine en-Codeine 1-14 [place] TABLET ity of #4 300-60 #4 300-60 00:00: M.D. EVERY 6 TO [place] MG Oral MG Oral 00 8 HOURS Phy sici Tablet Tablet NEEDED FOR ans PAIN. Prolia 2017-07 Yes [place] as Memoria 0-11 [place] directed l 00:00: Lisinopril 2017-0 Yes [place] 1 tablet Memoria 8-25 [place] l 02:46: 15 L[place]a 0 Yes [place] 1 tablet Mem oria 8-22 [place] before l 00:00: meals Meloxicam Meloxicam Yes LEO 1 TAKE 1 [facility] 15 MG Oral 15 MG Oral 8-08 [place] TABLET ity of Tablet Tablet 00:00: M.D. DAILY [place] 00 NEEDED. Physici ans Levaquin Yes [place] 1 tablet Me moria 8-08 [place] l 00:00: BusPIRone 0 Yes [place] TAKE 1 Mem oria HCl 7-30 [place] TABLET BY l 02:45: MOUTH 22 TWICE A DAY Uribel 0 Yes [place] 1 capsule Mem oria 7-26 [place] l 00:00: disabled 0 Yes [place] as Memori a placard 7-12 [place] directed l 00:00: Macrobid 0 Yes [place] 1 capsule M emoria 7-12 [place] with food l 00:00: Linzess 0 Yes [place] 1 capsule Me moria 6-30 [place] l 02:47: Saxenda 0 Yes [place] 3.0mg Memori a 6-28 [place] l 00:00: NovoFine 0 Yes [place] as Memori a 6-28 [place] directed l 00:00: Darifenacin 0 Yes [place] 2 tablet [facility]oria Hydrobromid 6-16 [place] with l e ER 02:46: liquid 18 Cymbalta 0 Yes [place] 1 capsule M emoria 6-16 [place] l 02:46: [place] 18 Cymbalta Yes [place] 1 capsule M emoria 6-10 [place] l 02:45: 39 Levemir Yes [place] 35 units Mem oria Flexpen 5-24 [place] l 02:47: Xanax Yes [place] 1 tablet Memor ia 5-24 [place] l 02:47: Fosfree Yes [place] not Memoria 5-24 [place] defined l 02:47: Linzess Yes Zohra Tripp 1 capsule Memoria 5-23 l 00:00: Restoril Yes [place] 1 capsule M emoria 5-23 [place] at bedtime l 00:00: as needed Levaquin Yes [place] 1 tablet Me moria 5-23 [place] l 00:00: Folic Acid Yes [place] 1 tablet Memoria 4-17 [place] l 00:00: Cyclobenzap Cyclobenzap Yes LEO Q0.3333D TAKE 1 [...] 8 HOURS Physici NEEDED FOR ans PAIN. Folic Acid Yes [place] 1 tablet Memoria -28 [place] l 02:46: Pentazocine Pentazocine Yes [place]O TAKE 1 [facility] -Naloxone -Naloxone 3-19 [place] TABLET ity of HCl - HCl - 00:00: M.D. EVERY 4 TO [place] 50-0.5 MG 50-0.5 MG 00 6 HOURS Physici Oral Tablet Oral Tablet NEEDED FOR ans PAIN. Diclofenac Diclofenac Yes [place] QD APPLY TO [facility] Sodium 1 % Sodium 1 % 3-19 [place] LOWER ity of Transdermal Transdermal 00:00: Tamir OROZCO [place] Gel Gel 00 S, 4 GM OF Physici GEL TO ans AFFECTED AREA 4 TIMES DAILY. DO NOT APPLY MORE THAN 16 GM DAILY TO ANY ONE AFFECTED JOINT. SUB MASTER Thyroid 2017-0 Yes [place] 1 tablet [facility]oria 3-12 [place] on an l 00:00: empty [place] 00 stomach Lisinopril 0 Yes [place] 1 tablet Memoria 3-12 [place] l 00:00: [place] 00 SUB MASTER Thyroid 2017-0 Yes [place] 1 tablet Memoria 3-12 [place] on an l 00:00: empty stomach Myrbetriq 0 Yes [place] 1 tablet M emoria 2-16 [place] l 00:00: [place] 00 Pravastatin 2017-0 Yes [place] 1 tablet Memoria Sodium 2-15 [place] l 03:46: [place] 48 morphine 2016-07 No 1 mg = 0.1 Mem oria 1-16 mL, l 17:30: Injection, 00 IV Push, q5min PRN for Pain Moderate (4-6), order duration: 5 doses, first dose 05/17/17 11:30:00 MACHINE SKIVER, stop date Limited # of times Demerol HCl 2016-07 No 12.5 mg = M emoria 1-16 0.5 mL, l 17:30: Injection, 00 IV Push, q5min PRN for Pain Mild (1-3), order duration: 4 doses, first dose 05/17/17 11:30:00 MACHINE SKIVER, stop date Limited # of times promethazin 2016-07 No 12.5 mg, Me moria e IVPB -16 IV l 17:30: Piggyback, Once PRN for nausea/vom iting, infuse over 15 minutes, first dose 05/17/17 11:30:00 MACHINE SKIVER Misc 2016-07 No 600 mL, Memoria Medication 1-16 Soln-IV, l 17:26: IV, Once, first dose 05/17/17 11:26:00 MACHINE SKIVER, stop date 05/17/17 11:26:00 MACHINE SKIVER propofol 2016-07 No 550 mg = Memor ia 1-16 55 mL, l 17:22: Emulsion, [place] 00 IV, Once, first dose 05/17/17 11:22:00 MACHINE SKIVER, stop date 05/17/17 11:22:00 MACHINE SKIVER ondansetron 2016-07 No 4 mg = 2 Me moria 1-16 mL, l 16:48: Injection, [place] 00 IV, Once, first dose 05/17/17 10:48:00 MACHINE SKIVER, stop date 05/17/17 10:48:00 MACHINE SKIVER ceFAZolin 2016-07 No 2 gm, Memoria 1-16 Powder-Inj l 16:42: , IV, [place] 00 Once, first dose 05/17/17 10:42:00 MACHINE SKIVER, stop date 05/17/17 10:42:00 MACHINE SKIVER dexamethaso 2016-07 No 4 mg = 1 Me moria ne 1-16 mL, l 16:37: Injection, [place] 00 IV, Once, first dose 05/17/17 10:37:00 MACHINE SKIVER, stop date 05/17/17 10:37:00 MACHINE SKIVER fentaNYL 2016-07 No 50 mcg = 1 Mem oria 1-16 mL, l 16:37: Injection, [place] 00 IV, Once, first dose 05/17/17 10:37:00 MACHINE SKIVER, stop date 05/17/17 10:37:00 MACHINE SKIVER fentaNYL 2016-07 No 50 mcg = 1 Mem oria 1-16 mL, l 16:31: Injection, [place] 00 IV, Once, first dose 05/17/17 10:31:00 MACHINE SKIVER, stop date 05/17/17 10:31:00 MACHINE SKIVER midazolam 2016-07 No 2 mg = 2 Bart julian 1-16 mL, l 16:25: Injection, [place] 00 IV, Once, first dose 05/17/17 10:25:00 MACHINE SKIVER, stop date 05/17/17 10:25:00 MACHINE SKIVER Cefazolin 2016-07 No 2 gm, Memoria 1-16 Soln-IV, l 16:00: IV [place] 00 Piggyback, Once, infuse over 30 minutes, first dose 05/17/17 10:00:00 MACHINE SKIVER, stop date 05/17/17 10:00:00 MACHINE SKIVER, Prophylaxi s Pain Ease 2016-07 No 1 sprays, Mem oria topical 1-16 [place], l spray 16:00: TOP, Once, [place] 00 first dose 05/17/17 10:00:00 MACHINE SKIVER, stop date 05/17/17 10:00:00 MACHINE SKIVER, Apply topically for 4 - 10 seconds from a distance of 3 - 7 inches from the procedure site LR 1,000 mL 2016-07 No 1,000 mL, M emoria -16 IV, 100 l 15:13: mL/hr, start date 05/17/17 9:13:00 MACHINE SKIVER, For Adults Zostavax 2016-07 Yes [place] as Memori a -10 [place] directed l 00:00: [place] 00 cognium 2016-07 No cognium, Memori a 07-10 100mg l 13:53: daily, 0 [place] 00 Refill(s) simvastatin 2016-07 Yes 10 mg = 1 M emoria 10 mg oral 07-10 tabs, l tablet 13:52: Oral, qHS, Nica nn 00 # 30 tabs, 0 Refill(s) simvastatin 2016-07 No 10 mg = 1 M emoria 10 mg oral 07-10 tabs, l tablet 13:52: Oral, qHS, Nica nn 00 # 30 tabs, 0 Refill(s) Misc 2016-07 No min and Memoria Medication 07-10 multivitam l 13:50: in supplement , 0 Refill(s) 5-HTP 2016-07 No 5-HTP, Memoria 07-10 100mg l 13:49: daily, 0 [place] 00 Refill(s) allergy 2016-07 No allergy Memoria relief 07-10 relief, l 13:49: 25mg [place] 00 daily, 0 Refill(s) Cranberry 2016-07 No 1 tab, Memori a 07-10 Oral, l 13:48: Daily, 0 [place] 00 Refill(s) Vitamin D 2016-07 No 1 tabs, Memor ia chewable 07-10 Oral, BID, l 5000 units 13:48: # 30 tabs, H ermann 00 0 Refill(s) Esomeprazol 2016-07 No 1 tabs, Mem oria e 20 MG / 07-10 Oral, BID, l Naproxen 13:48: # 60 tabs, Her matthews 500 MG 00 0 Enteric Refill(s) Coated Tablet [Vimovo 500/20] Symbicort 2016-07 Yes 2 puffs, Bart julian 80 mcg-4.5 07-10 INH, BID, l mcg/inh 13:48: # 6.9 gm, Nica nn inhalation 00 0 aerosol Refill(s) Linzess 145 2016-07 Yes 145 mcg = M emoria mcg oral 07-10 1 caps, l capsule 13:48: Oral, [place] 00 Daily, 0 Refill(s) linaclotide 2016-07 No 145 mcg = M emoria 0.145 MG 07-10 1 caps, l Oral 13:48: Oral, [place] Capsule 00 Daily, 0 [Linzess] Refill(s) azilsartan 2016-07 No 40 mg = 1 Me moria medoxomil 07-10 tabs, l 40 MG Oral 13:47: Oral, BID, H ermann Tablet 00 0 [Edarbi] Refill(s) Alprazolam 2016-07 Yes 0.5 mg = 1 M emoria 0.5 MG Oral 07-10 tabs, l Tablet 13:47: Oral, QID, Nica nn [Xanax] 00 PRN for anxiety, 0 Refill(s) Alprazolam 2016-07 No 0.5 mg = 1 M emoria 0.5 MG Oral 07-10 tabs, l Tablet 13:47: Oral, QID, Nica nn [Xanax] 00 PRN for anxiety, 0 Refill(s) levothyroxi 2016-07 Yes 125 mcg, Dc moria ne 07-10 Oral, l 13:46: Daily, 0 [place] 00 Refill(s) Levemir 2016-07 No 35 units, Memor ia FlexPen 07-10 Subcutaneo l 13:46: us, BID, 0 [place] 00 Refill(s) clopidogrel 2016-07 Yes 75 mg = 1 M emoria 75 mg oral 07-10 tabs, l tablet 13:46: Oral, [place] 00 Daily, # 30 tabs, 0 Refill(s) Thyroxine 2016-07 Yes 88 mcg, Memor ia 07-10 Oral, l 13:46: Daily, 0 [place] 00 Refill(s) clopidogrel 2016-07 Yes 75 mg = 1 M emoria 75 mg oral 07-10 tabs, l tablet 13:46: Oral, qHS, Nica nn 00 stopping 03/31, # 30 tabs, 0 Refill(s) alendronate 2016-07 Yes 70 mg = 1 M emoria 70 mg oral 1-09 tabs, l tablet 13:45: Oral, [place] 00 qMonday, # 4 tabs, 0 Refill(s) Alendronic 2016-07 Yes 70 mg = 1 Me moria acid 70 MG 1-09 tabs, l Oral Tablet 13:45: Oral, Nica nn 00 qMonday, # 4 tabs, 0 Refill(s) Viibryd 2016-07 Yes [place] 1 tablet Mem oria 1-02 [place] with food l 00:00: Viibryd 2016-07 Yes [place] 1 tablet Mem oria 1-02 [place] with food l 00:00: Levaquin 2016-07 Yes [place] 1 tablet Me moria 1-02 [place] l 00:00: Benadryl 2016-07 Yes [place] 1 tablet Me moria Allergy 0-28 [place] as needed l 02:45: 36 Macrobid 2016-07 Yes [place] 1 capsule M emoria 0-26 [place] with food l 00:00: Fish Oil Yes [place] 1 capsule M emoria 9-17 [place] l 03:04: Potassimin Yes [place] 1 tablet Memoria 9-17 [place] l 03:04: Linzess Yes [place] 1 capsule Me moria 9-17 [place] l 03:04: Osteo Yes [place] not Memoria Bi-Flex -17 [place] defined l Triple 03:04: 17 Calcium + D Yes [place] 2 tablet Memoria 9-17 [place] with food l 03:04: Fosamax Yes [place] 1 tablet Mem oria 9-17 [place] l 03:04: Darifenacin Yes [place] 2 tablet Memoria Hydrobromid 17 [place] with l e ER 03:04: liquid Allergy 2016-0 Yes [place] 1 tablet Mem oria Relief 03-18 [place] as needed l 03:04: Flintstones Yes [place] 1 tablet Memoria Plus Iron 03-18 Jesus l 03:04: [place] 17 [place] Yes [place] not Memoria 03-18 Jesus defined l 03:04: Folic Acid Yes [place] 1 tablet Memoria 03-18 Valentíngarleia l 03:04: Diabetes Yes [place] not Memori a Support 03-18 Jesus defined l 03:04: [place] 17 CoQ-10 Yes [place] 1 capsule Mem oria 03-18 [place] with a l 03:04: meal Multi-betic Yes [place] not Mem oria Diabetes 03-18 Jesus defined l 03:04: [place] 17 Cinnamon Yes [place] not Memori a 03-18 Jesus defined l 03:04: Vitamin Yes [place] 1 tablet Mem oria B-12 03-18 Jesus l 03:04: Acidophilus Yes [place] not Mem oria 03-18 Jesus defined l 03:04: Niacin Yes [place] 1 tablet Bart julian 03-18 Jesus l 03:04: Xanax Yes [place] 1 tablet Memor ia 03-18 Jesus l 03:04: Levemir Yes [place] 35 units Mem oria Flexpen 03-18 Jesus l 03:04: Prolia Yes [place] as Memoria 02-14 Jesus directed l 00:00: Prolia Yes [place] as Memoria 02-14 [place]um[place] directed l 00:00: Contour Yes [place] as Memoria Next 01-31 Jesus directed l Lancets 00:00: Contour Yes [place] as [facility] Next Test 01-31 [place] directed l Strips 00:00: [place] 00 Trulicity 2017 Yes [place] once a Mem oria 01-31 [place] week as l 00:00: directed [place] 00 Macrobid Yes [place] 1 capsule M emoria 01-31 [place] with food l 00:00: [place] 00 Bactrim DS Yes [place] 1 tablet Memoria 01-31 [place] l 00:00: [place] 00 Trulicity Yes [place] once a Mem oria 01-31 [place] week as l 00:00: directed Bactrim DS Yes [place] 1 tablet Memoria 01-31 [place] l 00:00: [place] 00 Macrobid Yes [place] 1 capsule M emoria 01-31 [place] with food l 00:00: BuPROPion [id number] Yes [place] 1 tablet M emoria HCl 3-20 [place] l 00:00: BuPROPion 0 Yes [place] 1 tablet M emoria HCl 3-20 [place] l 00:00: Marycarmen BD 0 Yes [place] as Memoria ultra fine 2-16 [place] directed l pen needles 03:45: [place] n Pen [place] 0 Yes [place] as Mem oria 5/16" 2-15 [place] directed l 00:00: Pen [place] 0 Yes [place] as Mem oria 5/16" 2-15 [place] directed l 00:00: [place] 00 VESIcare 2015-07 Yes [place] 1 tablet Me moria 2-01 [facility] l 00:00: [place] 00 Macrobid 2015-07 Yes [place] 1 capsule M emoria 2- [place] with food l 00:00: [place] 00 Macrobid 2015-07 Yes [place] 1 capsule M emoria 2-01 [place] with food l 00:00: [place] 00 VESIcare 2015-07 Yes [place] 1 tablet Me moria 2-01 [place] l 00:00: [place] 00 Vimovo 2016-0 Yes [place] 1 tablet Bart julian 9-20 [place] before l 00:00: meals Edarbi 2016-0 Yes [place] 1 tablet Bart julian 9-20 [place] l 00:00: Edarbi 2016-0 Yes [place] 1 tablet Bart julian 9-20 [place] l 00:00: Vimovo 2016-0 Yes [place] 1 tablet Bart julian 9-20 [place] before l 00:00: meals Omeprazole 2016-0 Yes [place] 1 tablet Memoria 6-08 [place] l 00:00: Omeprazole 2015-0 Yes [place] 1 tablet [facility] 6-08 [place] l 00:00: Levothyroxi 0 Yes [place] 1 tablet Memoria ne Sodium 2-27 [place] l 03:53: 39 Omeprazole 2015-0 Yes [place] 1 tablet [facility]oria 1-07 [place] l 04:01: 47 Adipex-P 2015-1 Yes [place] 1 tablet Me moria 2-04 [place] l 00:00: Adipex-P 2015-1 Yes [place] 1 tablet Me moria 2-04 [place] l 00:00: Victoza 2015-0 Yes [place] 1.8 Memoria 8-20 [place] l 02:58: [place] 16 Naproxen 2015-0 Yes [place] TAKE 1 Bart julian 8-20 [place] TABLET BY l 02:58: MOUTH [place] 16 TWICE A DAY NEEDED Ultram 2014-0 Yes [place] 1 tablet Bart julian 5-05 [place] as needed l 00:00: Acyclovir 2015-0 Yes [place] 1 tablet M emoria 5-05 [place] l 00:00: Neurontin 2015-0 Yes [place] 1 tablet M emoria 5-05 [place] l 00:00: Ultram 2014-0 Yes [place] 1 tablet Bart julian 5-05 [place] as needed l 00:00: Neurontin 2015-0 Yes [place] 1 tablet M emoria 5-05 [place] l 00:00: [place] 00 Acyclovir 2015-0 Yes [place] 1 tablet M emoria 5-05 [place] l 00:00: [place] 00 Findlay 2015-0 Yes [place] 1 tablet Memor ia 4-20 [place] as needed l 00:00: [place] 00 Findlay 2015-0 Yes [place] 1 tablet Memor ia 4-20 [place] as needed l 00:00: Valtrex 2015-0 Yes [place] 1 tablet Mem oria 3-30 [place] l 00:00: [place] 00 Neurontin 2015-0 Yes [place] 1 capsule Memoria 3-30 [facility] l 00:00: Levemir 2015-0 Yes [place] inject 30 Me moria Flexpen 2-02 [place] units sq l 03:49: twice a [place] 49 day Symbicort 2015-0 Yes [place] 2 puffs Me moria 1-23 [place] l 00:00: [place] 00 Symbicort 2015-0 Yes [place] 2 puffs Me moria 1-23 [place] l 00:00: Zithromax 2015-0 Yes [place] 2 tablets Memoria Z-Ezequiel 1-23 [place] on the l 00:00: first day, then 1 tablet daily for 4 days Levemir 2015-0 Yes [place] as Memoria FlexTouch 1-07 [place] directed l 00:00: [place] 00 Victoza 2013- Yes [place] 1.8 Memoria 2-27 [facility] l 00:00: Victoza 2013-07 Yes [place] 0.2 ml Memor ia 2-20 [place] l 00:00: Victoza 2013- Yes [place] 1.8 Memoria 2-08 [place] l 00:00: [place] 00 Viibryd 2013-07 Yes [place] take 1 Memor ia 1-22 [place] tablet l 04:03: daily [place] 32 Omeprazole 2013-07 Yes [place] 1 tablet Memoria 1-22 [place] l 04:03: [place] 32 Fosamax 2013-07 Yes [place] 1 tablet Mem oria 0-16 [place] l 00:00: [place] 00 Macrobid 2013-07 Yes [place] 1 capsule M emoria 0-16 [place] with food l 00:00: [place] 00 Naproxen Yes [place] TAKE 1 Bart julian 9-30 [place] TABLET BY l 02:52: MOUTH [place] 54 TWICE A DAY NEEDED Omeprazole Yes [place] 1 tablet Memoria 7-17 [place] l 02:49: [place] 19 Levothyroxi Yes [place] 1 po qd Memoria ne Sodium 7-17 [place] l 02:49: [place] 19 Lovastatin Yes [place] TAKE 1 Me moria 7-17 [place] TABLET l 02:47: DAILY [place] 07 Lisinopril Yes [place] 1 tablet Memoria 7-17 [place] l 02:47: [place] 07 BD Pen Yes [place] as [facility]oria 7-10 [place] directed l 00:00: [place] 00 BD Pen Yes [place] as [facility] 7-10 [place] directed l 00:00: [place] 00 BD Pen Yes [place] as [facility] 7-10 [place] directed l 00:00: [place] 00 Medrol Yes [place] as [facility] (Ezequiel) 6-06 [place] directed l 00:00: [place] 00 Vitamin D Yes [place] 1 capsule Memoria 6-03 [place] l 02:52: [place] 15 Flonase Yes [place] 1 spray in M emoria 6-03 [place] each l 02:52: nostril 13 Flonase Yes [place] 1 spray in M emoria 6-02 [place] each l 00:00: nostril [place] 00 Jolie Yes [place] 1 tablet Mem oria Allergy 5-30 [place] l 00:00: [place] 00 Nasonex Yes [place] 2 sprays Mem oria 5-30 [place] in each l 00:00: nostril Linzess Yes [place] 1 capsule Me moria 4-16 [place] l 00:00: Xanax Yes [place] 1 tablet Memor ia 4-02 [place] l 00:00: Demerol HCl No Mahin M 12.5 mg = Memoria 3-27 Lastoczy 0.5 mL, l 14:18: Injection, [place] 00 IV Push, q5min PRN for Pain Mild (1-3), order duration: 4 doses, first dose 09/25/13 9:18:00 CDT, stop date Limited # of times morphine No Mahin M 2 mg = 0.2 Memoria 3-27 Lastoczy mL, l 14:18: Injection, [place] 00 IV Push, q5min PRN for pain severe (7-10), order duration: 5 doses, first dose 09/25/13 9:18:00 CDT, stop date Limited # of times promethazin No Mahin M 12.5 mg, Memoria e IVPB 3-27 Lastoczy IV l 14:18: Piggyback, Once PRN for nausea/vom iting, infuse over 15 minutes, first dose 09/25/13 9:18:00 CDT Misc No Philip Boyd 250 mL, Bart julian Medication 3-27 Soln-IV, l 13:48: IV, Once, first dose 09/25/13 8:48:00 CDT, stop date 09/25/13 8:48:00 CDT propofol No Philip Boyd 50 mg = 5 Memoria 3-27 mL, l 13:41: Emulsion, [place] 00 IV, Once, first dose 09/25/13 8:41:00 CDT, stop date 09/25/13 8:41:00 CDT propofol No Philip Boyd 50 mg = 5 Memoria 3-27 mL, l 13:37: Emulsion, [place] 00 IV, Once, first dose 09/25/13 8:37:00 CDT, stop date 09/25/13 8:37:00 CDT propofol No Philip Boyd 100 mg = Memoria 3-27 10 mL, l 13:32: Emulsion, [place] 00 IV, Once, first dose 09/25/13 8:32:00 CDT, stop date 09/25/13 8:32:00 CDT propofol Gertrudis Boyd 50 mg = 5 Memoria 3-27 mL, l 13:28: Emulsion, [place] 00 IV, Once, first dose 09/25/13 8:28:00 CDT, stop date 09/25/13 8:28:00 CDT propofol Gertrudis Boyd 100 mg = Memoria 3-27 10 mL, l 13:23: Emulsion, [place] 00 IV, Once, first dose 09/25/13 8:23:00 CDT, stop date 09/25/13 8:23:00 CDT propofol Gertrudis Boyd 100 mg = Memoria 3-27 10 mL, l 13:17: Emulsion, [place] 00 IV, Once, first dose 09/25/13 8:17:00 CDT, stop date 09/25/13 8:17:00 CDT lidocaine Gertrudis Boyd 3 mL, M emoria 3-27 Injection, l 13:15: IV, Once, [place] 00 first dose 09/25/13 8:15:00 CDT, stop date 09/25/13 8:15:00 CDT fentanyl Gertrudis Boyd 100 mcg = Memoria 3-27 2 mL, l 13:14: Injection, [place] 00 IV, Once, first dose 09/25/13 8:14:00 CDT, stop date 09/25/13 8:14:00 CDT midazolam Gertrudis Boyd 2 mg = 2 Memoria 3-27 mL, l 13:14: Implant, [place] 00 IV, Once, first dose 09/25/13 8:14:00 CDT, stop date 09/25/13 8:14:00 CDT cefazolin Gertrudis Palacios 1 gm, Memori a 3-27 [facility] Soln-IV, l 12:00: IV [place] 00 Piggyback, Once, infuse over 30 minutes, first dose 09/25/13 7:00:00 CDT, stop date 09/25/13 7:00:00 CDT ethyl No Mahin M 1 sprays, Bart julian chloride 3-27 Lastoczy [place], l topical 12:00: TOP, Once, Herm danilo spray 00 first dose 09/25/13 7:00:00 CDT, stop date 09/25/13 7:00:00 CDT Sodium No Mahin M 250 mL, Memor ia Chloride 3-27 Lastoczy IV, 25 l 0.9% 250 mL 11:54: mL/hr, Herm danilo 00 start date 09/25/13 6:54:00 CDT Naprosyn Yes [place] 1 tablet Me moria 3-26 [place] as needed l 00:00: [place] Soma Yes [place] 1 tablet Memori a 3-26 [place] as needed l 00:00: [place] Xanax No [place] 1 tablet Memor ia 3-26 [place] l 00:00: [place] 00 clonazepam Yes 0.25 mg = Me moria 0.5 mg oral 3-21 0.5 tabs, l tablet 18:23: Oral, BID, Nica nn 00 0 Refill(s) clonazepam No 0.25 mg = Me moria 0.5 mg oral 3-21 0.5 tabs, l tablet 18:23: Oral, BID, Nica nn 00 0 Refill(s) clonazepam No 0.25 mg = Me moria 0.5 mg oral 3-21 0.5 tabs, l tablet 18:23: Oral, BID, Nica nn 00 0 Refill(s) Seroquel 50 Yes 50 mg = 1 M emoria mg oral 3-21 tabs, l tablet 18:22: Oral, [place] 00 Daily, 0 Refill(s) Seroquel 50 No 50 mg = 1 M emoria mg oral 3-21 tabs, l tablet 18:22: Oral, [place] 00 Daily, 0 Refill(s) quetiapine No 50 mg = 1 Me moria 50 MG Oral 3-21 tabs, l Tablet 18:22: Oral, [place] [Seroquel] 00 Daily, 0 Refill(s) Milk Yes 2, Oral, Memoria Thistle 3-21 Daily, 0 l 18:19: Refill(s) [place] 00 Flintstones Yes 1 tabs, Mem oria with Iron 3-21 Chewed, l oral 18:19: Daily, 0 [place] tablet, 00 Refill(s) chewable Milk No 2, Oral, Memoria Thistle 3-21 Daily, 0 l 18:19: Refill(s) [place] 00 Flintstones No 1 tabs, Mem oria with Iron 3-21 Chewed, l oral 18:19: Daily, 0 [place] tablet, 00 Refill(s) chewable lisinopril Yes 40 mg = 1 Me moria 40 mg oral 3-21 tabs, l tablet 18:18: Oral, [place] 00 Daily, 0 Refill(s) Vitamin D No 1 tabs, Memor ia chewable 3-21 Oral, l 5000 units 18:18: Daily, # Her matthews 00 30 tabs, 0 Refill(s) lisinopril No 40 mg = 1 Me moria 40 mg oral 3-21 tabs, l tablet 18:18: Oral, [place] 00 Daily, 0 Refill(s) Victoza 18 Yes 1.8 mg, Bart julian mg/3 mL 3-21 Subcutaneo l subcutaneou 18:16: us, Daily, [place] s solution 00 0 Refill(s) lovastatin Yes 40 mg = 1 Me moria 40 mg oral 3-21 tabs, l tablet 18:16: Oral, [place] 00 Daily, 0 Refill(s) omeprazole Yes 20 mg = 1 Me moria 20 mg oral 3-21 tabs, l delayed 18:16: Oral, [place] release 00 Daily, 0 tablet Refill(s) 3 ML No 1.8 mg, Memoria liraglutide 3-21 Subcutaneo l 6 MG/ML 18:16: us, Daily, Herm danilo Prefilled 00 0 Syringe Refill(s) [Victoza] Lovastatin No 40 mg = 1 Me moria 40 MG Oral 3-21 tabs, l Tablet 18:16: Oral, [place] 00 Daily, 0 Refill(s) Omeprazole No 20 mg = 1 Me moria 20 MG 3-21 tabs, l Enteric 18:16: Oral, [place] Coated 00 Daily, 0 Tablet Refill(s) Viibryd 40 Yes 40 mg = 1 Me moria mg oral 3-21 tabs, l tablet 18:15: Oral, [place] 00 Daily, 0 Refill(s) Levemir Yes 30 units, Memor ia FlexPen 3-21 Subcutaneo l 18:15: us, BID, 0 [place] 00 Refill(s) Sanctura 20 Yes 20 mg = 1 M emoria mg oral 3-21 tabs, l tablet 18:15: Oral, BID, Nica nn 00 0 Refill(s) vilazodone No 40 mg = 1 Me moria hydrochlori 3-21 tabs, l de 40 MG 18:15: Oral, [place] Oral Tablet 00 Daily, 0 [Viibryd] Refill(s) Levemir No 30 units, Memor ia FlexPen 3-21 Subcutaneo l 18:15: us, BID, 0 [place] 00 Refill(s) trospium No 20 mg = 1 Bart julian chloride 20 3-21 tabs, l MG Oral 18:15: Oral, BID, Herm danilo Tablet 00 0 [Sanctura] Refill(s) [place] 20 No 20 mg = 1 M emoria mg oral 3-21 tabs, l tablet 18:15: Oral, BID, Nica nn 00 0 Refill(s) Sanctura Yes [place] 1 tablet Me moria 1-15 [place] l 00:00: [place] 00 Sanctura Yes [place] 1 tablet Me moria 1-15 [place] l 00:00: [place] 00 Sanctura Yes [place] 1 tablet Me moria 1-15 [place] l 00:00: [place] 00 Alendronate Alendronate Yes U nivers Sodium 70 Sodium 70 ity o f MG Oral MG Oral [place] Tablet Tablet Physici ans Plavix 75 Plavix 75 Yes Unive rs MG Oral MG Oral ity of Tablet Tablet [place] [facility] ans Levo-T 125 Levo-T 125 Yes Uni vers MCG Oral MCG Oral ity of Tablet Tablet [place] [facility] ans Xanax 0.5 Xanax 0.5 Yes Unive rs MG Oral MG Oral ity of Tablet Tablet [place] [facility] ans Linzess 145 Linzess 145 Yes U nivers MCG Oral MCG Oral ity of Capsule Capsule [place] [facility] ans Symbicort Symbicort Yes Unive rs 80-4.5 80-4.5 ity of MCG/ACT MCG/ACT [place] Inhalation Inhalation Phy sici Aerosol Aerosol ans Vimovo Vimovo Yes Univers 500-20 MG 500-20 MG ity o f Oral Tablet Oral Tablet [place] Delayed Delayed Physici Release Release ans Levemir Levemir Yes Univers SOLN SOLN ity of [place] [facility] ans Vital Signs Vital Name Observation Time Observation Value Comments Source Systolic (mm Hg) 2019-04-09 21:00:00 Bart rial [place] Diastolic (mm Hg) 2019-04-09 21:00:00 Mem orial [place] Respitory Rate 2019-04-09 21:00:00 Memori al [place] Heart Rate 2019-04-09 21:00:00 [facility] [place] Systolic (mm Hg) 2019-04-09 11:00:00 Bart rial [place] Diastolic (mm Hg) 2019-04-09 11:00:00 Mem orial [place] Heart Rate 2019-04-09 11:00:00 [facility] [place] Respitory Rate 2019-04-09 11:00:00 Memori al [place] Heart Rate 2019-04-09 09:00:00 [facility] [place] Systolic (mm Hg) 2019-04-09 09:00:00 Bart rial [place] Diastolic (mm Hg) 2019-04-09 09:00:00 Mem orial [place] Respitory Rate 2019-04-09 09:00:00 Memori al [place] Temperature Oral (F) 2019-04-09 09:00:00 37.5 Marjorie [facility] [place] Temperature Oral (F) 2019-04-09 00:00:00 37.3 Marjorie [facility] [place] Temperature Oral (F) 2019-04-08 21:00:00 38.0 Marjorie [facility] [place] Temperature Oral (F) 2019-04-07 19:00:00 36.1 Marjorie [facility] [place] Temperature Oral (F) 2019-04-07 18:10:00 36.4 Marjorie [facility] [place] Temperature Oral (F) 2019-04-07 14:27:00 36.9 Marjorie [facility] [place] Height 2019-04-07 14:27:00 162.54 cm [facility] [place] Height 2019-03-26 16:14:00 162.54 cm [facility] [place] Weight 2018-10-01 19:45:00 [facility] [place] Height 2018-10-01 19:45:00 [facility] [place] Temperature Oral (F) 2018-10-01 19:45:00 98.7 F [facility] [place] Heart Rate 2018-10-01 19:45:00 [facility] [place] Diastolic (mm Hg) 2018-10-01 19:45:00 Mem orial [place] Systolic (mm Hg) 2018-10-01 19:45:00 Bart rial [place] Weight 2018-09-24 15:00:00 [facility] [place] Height 2018-09-24 15:00:00 [facility] [place] Temperature Oral (F) 2018-09-24 15:00:00 98.6 F [facility] [place] Heart Rate 2018-09-24 15:00:00 [facility] [place] Diastolic (mm Hg) 2018-09-24 15:00:00 Mem orial [place] Systolic (mm Hg) 2018-09-24 15:00:00 Bart rial [place] Weight 2018-07-19 16:15:00 [facility] [place] Height 2018-07-19 16:15:00 [facility] [place] Temperature Oral (F) 2018-07-19 16:15:00 99.1 F [facility] [place] Heart Rate 2018-07-19 16:15:00 [facility] [place] Diastolic (mm Hg) 2018-07-19 16:15:00 Mem orial [place] Systolic (mm Hg) 2018-07-19 16:15:00 Bart rial [place] Weight 2018-07-11 21:30:00 [facility] [place] Height 2018-07-11 21:30:00 [facility] [place] Temperature Oral (F) 2018-07-11 21:30:00 98.4 F [facility] [place] Heart Rate 2018-07-11 21:30:00 [facility] [place] Diastolic (mm Hg) 2018-07-11 21:30:00 Mem orial [place] Systolic (mm Hg) 2018-07-11 21:30:00 Bart rial [place] Weight 2018-05-20 16:30:00 [facility] [place] Height 2018-05-20 16:30:00 [facility] [place] Temperature Oral (F) 2018-05-20 16:30:00 98.5 F [facility] [place] Heart Rate 2018-05-20 16:30:00 [facility] [place] Diastolic (mm Hg) 2018-05-20 16:30:00 Mem orial [place] Systolic (mm Hg) 2018-05-20 16:30:00 Bart rial [place] Weight 2018-04-11 20:00:00 [facility] [place] Height 2018-04-11 20:00:00 [facility] [place] Temperature Oral (F) 2018-04-11 20:00:00 98.2 F [facility] [place] Heart Rate 2018-04-11 20:00:00 [facility] [place] Diastolic (mm Hg) 2018-04-11 20:00:00 Mem orial [place] Systolic (mm Hg) 2018-04-11 20:00:00 Bart rial [place] Weight 2018-02-20 21:00:00 [facility] [place] Height 2018-02-20 21:00:00 [facility] [place] Temperature Oral (F) 2018-02-20 21:00:00 98.0 F [facility] [place] Heart Rate 2018-02-20 21:00:00 [facility] [place] Diastolic (mm Hg) 2018-02-20 21:00:00 Mem orial [place] Systolic (mm Hg) 2018-02-20 21:00:00 Bart rial [place] Weight 2018-02-06 20:30:00 [facility] [place] Height 2018-02-06 20:30:00 [facility] [place] Temperature Oral (F) 2018-02-06 20:30:00 98.8 F [facility] [place] Heart Rate 2018-02-06 20:30:00 [facility] [place] Diastolic (mm Hg) 2018-02-06 20:30:00 Mem orial [place] Systolic (mm Hg) 2018-02-06 20:30:00 [facility] [place] Height 2018-02-06 14:07:00 64 [in_us] [facility] Physician s Weight 2018-02-06 14:07:00 269 [facility] 2018-02-06 14:07:00 46.17 kg/m2 Unive rsity of Calculated [place] Physician s Weight 2018-01-24 19:30:00 [facility] [place] Height 2018-01-24 19:30:00 [facility] [place] Temperature Oral (F) 2018-01-24 19:30:00 98.6 F [facility] [place] Heart Rate 2018-01-24 19:30:00 [facility] [place] Diastolic (mm Hg) 2018-01-24 19:30:00 Mem orial [place] Systolic (mm Hg) 2018-01-24 19:30:00 Bart rial [place] Height 2018-01-11 10:38:00 64 [in_us] Universi [facility] Physician s Weight 2018-01-11 10:38:00 269 [lb_av] [facility] Physician s Body Mass Index 2018-01-11 10:38:00 46.17 kg/m2 Unive rsity of Calculated [place] Physician s Weight 2018-01-10 19:30:00 [facility] [place] Height 2018-01-10 19:30:00 [facility] [place] Temperature Oral (F) 2018-01-10 19:30:00 98.0 F [facility] [place] Heart Rate 2018-01-10 19:30:00 [facility] [place] Diastolic (mm Hg) 2018-01-10 19:30:00 Mem orial [place] Systolic (mm Hg) 2018-01-10 19:30:00 Bart rial [place] Weight 2017-12-27 19:30:00 [facility] [place] Height 2017-12-27 19:30:00 [facility] [place] Temperature Oral (F) 2017-12-27 19:30:00 98.6 F [facility] [place] Heart Rate 2017-12-27 19:30:00 [facility] [place] Diastolic (mm Hg) 2017-12-27 19:30:00 Mem orial [place] Systolic (mm Hg) 2017-12-27 19:30:00 Bart rial [place] Weight 2017-12-14 16:00:00 [facility] [place] Height 2017-12-14 16:00:00 [facility] [place] Temperature Oral (F) 2017-12-14 16:00:00 98.9 F [facility] [place] Heart Rate 2017-12-14 16:00:00 [facility] [place] Diastolic (mm Hg) 2017-12-14 16:00:00 Mem orial [place] Systolic (mm Hg) 2017-12-14 16:00:00 Bart rial [place] Weight 2017-12-13 20:45:00 [facility] [place] Height 2017-12-13 20:45:00 [facility] [place] Temperature Oral (F) 2017-12-13 20:45:00 98.7 F [facility] [place] Heart Rate 2017-12-13 20:45:00 [facility] [place] Diastolic (mm Hg) 2017-12-13 20:45:00 Mem orial [place] Systolic (mm Hg) 2017-12-13 20:45:00 Bart rial [place] Height 2017-12-10 10:53:00 64 [in_us] Univers[facility] Physician s Weight 2017-12-10 10:53:00 269 [lb_av] [facility] Physician s Body Mass Index 2017-12-10 10:53:00 46.17 kg/m2 Unive rsity of Calculated [place] Physician s Weight 2017-12-06 20:15:00 [facility] [place] Height 2017-12-06 20:15:00 [facility] [place] Temperature Oral (F) 2017-12-06 20:15:00 87 F [facility] [place] Heart Rate 2017-12-06 20:15:00 [facility] [place] Diastolic (mm Hg) 2017-12-06 20:15:00 Mem orial [place] Systolic (mm Hg) 2017-12-06 20:15:00 Bart rial [place] Weight 2017-11-29 20:30:00 [facility] [place] Height 2017-11-29 20:30:00 [facility] [place] Temperature Oral (F) 2017-11-29 20:30:00 99.2 F [facility] [place] Heart Rate 2017-11-29 20:30:00 [facility] [place] Diastolic (mm Hg) 2017-11-29 20:30:00 Mem orial [place] Systolic (mm Hg) 2017-11-29 20:30:00 Bart rial [place] Weight 2017-11-21 20:00:00 [facility] [place] Height 2017-11-21 20:00:00 [facility] [place] Temperature Oral (F) 2017-11-21 20:00:00 99.3 F [facility] [place] Heart Rate 2017-11-21 20:00:00 [facility] [place] Diastolic (mm Hg) 2017-11-21 20:00:00 Mem orial [place] Systolic (mm Hg) 2017-11-21 20:00:00 Bart rial [place] Weight 2017-10-16 15:45:00 [facility] [place] Height 2017-10-16 15:45:00 [facility] [place] Temperature Oral (F) 2017-10-16 15:45:00 99.0 F [facility] [place] Heart Rate 2017-10-16 15:45:00 [facility] [place] Diastolic (mm Hg) 2017-10-16 15:45:00 Mem orial [place] Systolic (mm Hg) 2017-10-16 15:45:00 Bart rial [place] Height 2017-10-15 16:02:00 64 [in_us] [facility] [place] [facility] Weight 2017-10-15 16:02:00 269 [lb_av] [facility] Physician s Body Mass Index 2017-10-15 16:02:00 46.17 kg/m2 Unive rsity of Calculated [place] Physician s Weight 2017-09-24 18:30:00 [facility] [place] Height 2017-09-24 18:30:00 [facility] [place] Temperature Oral (F) 2017-09-24 18:30:00 98.9 F [facility] [place] Heart Rate 2017-09-24 18:30:00 [facility] [place] Diastolic (mm Hg) 2017-09-24 18:30:00 Mem orial [place] Systolic (mm Hg) 2017-09-24 18:30:00 Bart rial [place] Height 2017-09-13 16:14:00 64 [in_us] [facility] [place] [facility] Weight 2017-09-13 16:14:00 269 [lb_av] [facility] Physician s Body Mass Index 2017-09-13 16:14:00 46.17 kg/m2 Unive rsity of Calculated [place] Physician s Weight 2017-09-10 18:45:00 [facility] [place] Height 2017-09-10 18:45:00 [facility] [place] Temperature Oral (F) 2017-09-10 18:45:00 97.5 F [facility] [place] Heart Rate 2017-09-10 18:45:00 [facility] [place] Diastolic (mm Hg) 2017-09-10 18:45:00 Mem orial [place] Systolic (mm Hg) 2017-09-10 18:45:00 Bart rial [place] Weight 2017-08-17 15:30:00 [facility] [place] Height 2017-08-17 15:30:00 [facility] [place] Temperature Oral (F) 2017-08-17 15:30:00 98.6 F [facility] [place] Heart Rate 2017-08-17 15:30:00 [facility] [place] Diastolic (mm Hg) 2017-08-17 15:30:00 Mem orial [place] Systolic (mm Hg) 2017-08-17 15:30:00 Bart rial [place] Weight 2017-07-05 16:45:00 [facility] [place] Height 2017-07-05 16:45:00 [facility] [place] Temperature Oral (F) 2017-07-05 16:45:00 98.7 F [facility] [place] Heart Rate 2017-07-05 16:45:00 [facility] [place] Diastolic (mm Hg) 2017-07-05 16:45:00 Mem orial [place] Systolic (mm Hg) 2017-07-05 16:45:00 Bart rial [place] Weight 2017-06-06 17:00:00 [facility] [place] Height 2017-06-06 17:00:00 [facility] [place] Temperature Oral (F) 2017-06-06 17:00:00 98.3 F [facility] [place] Heart Rate 2017-06-06 17:00:00 [facility] [place] Diastolic (mm Hg) 2017-06-06 17:00:00 Mem orial [place] Systolic (mm Hg) 2017-06-06 17:00:00 Bart rial [place] Systolic (mm Hg) 2017-05-17 17:35:00 Bart rial [place] Diastolic (mm Hg) 2017-05-17 17:35:00 Mem orial [place] Heart Rate 2017-05-17 17:35:00 [facility] [place] Respitory Rate 2017-05-17 17:25:00 Memori al [place] Systolic (mm Hg) 2017-05-17 17:25:00 Bart rial [place] Diastolic (mm Hg) 2017-05-17 17:25:00 Mem orial [place] Heart Rate 2017-05-17 17:25:00 [facility] [place] Respitory Rate 2017-05-17 17:20:00 Memori al [place] Systolic (mm Hg) 2017-05-17 17:20:00 Bart rial [place] Diastolic (mm Hg) 2017-05-17 17:20:00 Mem orial [place] Temperature Oral (F) 2017-05-17 17:20:00 36.5 Marjorie [facility] [place] Heart Rate 2017-05-17 17:20:00 [facility] [place] Height 2017-05-17 14:47:00 165.10 cm [facility] [place] Temperature Oral (F) 2017-05-17 14:47:00 36.8 Marjorie [facility] [place] Weight 2017-05-11 15:45:00 [facility] [place] Height 2017-05-11 15:45:00 [facility] [place] Temperature Oral (F) 2017-05-11 15:45:00 98.5 F [facility] [place] Heart Rate 2017-05-11 15:45:00 [facility] [place] Diastolic (mm Hg) 2017-05-11 15:45:00 Mem orial [place] Systolic (mm Hg) 2017-05-11 15:45:00 Bart rial [place] Temperature Oral (F) 2017-05-10 13:36:00 36.7 Marjorie [facility] [place] Height 2017-05-10 13:36:00 165.10 cm [facility] [place] Weight 2017-05-03 20:15:00 [facility] [place] Height 2017-05-03 20:15:00 [facility] [place] Temperature Oral (F) 2017-05-03 20:15:00 98.5 F [facility] [place] Diastolic (mm Hg) 2017-05-03 20:15:00 Mem orial [place] Systolic (mm Hg) 2017-05-03 20:15:00 Bart rial [place] Weight 2017-04-26 14:45:00 [facility] [place] Height 2017-04-26 14:45:00 [facility] [place] Temperature Oral (F) 2017-04-26 14:45:00 98.5 F [facility] [place] Heart Rate 2017-04-26 14:45:00 [facility] [place] Diastolic (mm Hg) 2017-04-26 14:45:00 Mem orial [place] Systolic (mm Hg) 2017-04-26 14:45:00 Bart rial [place] Weight 2017-02-14 20:15:00 [facility] [place] Height 2017-02-14 20:15:00 [facility] [place] Temperature Oral (F) 2017-02-14 20:15:00 99.4 F [facility] [place] Heart Rate 2017-02-14 20:15:00 [facility] [place] Diastolic (mm Hg) 2017-02-14 20:15:00 Mem orial [place] Systolic (mm Hg) 2017-02-14 20:15:00 [facility] [place] Weight 2017-01-31 15:45:00 [facility] Height 2017-01-31 15:45:00 [facility] [place] Temperature Oral (F) 2017-01-31 15:45:00 98.0 F [facility] Heart Rate 2017-01-31 15:45:00 [facility] Diastolic (mm Hg) 2017-01-31 15:45:00 [facility] [place] Systolic (mm Hg) 2017-01-31 15:45:00 [facility] [place] Weight 2016-11-30 14:15:00 [facility] Height 2016-11-30 14:15:00 [facility] [place] Temperature Oral (F) 2016-11-30 14:15:00 98.6 F [facility] Heart Rate 2016-11-30 14:15:00 [facility] Diastolic (mm Hg) 2016-11-30 14:15:00 [facility] [place] Systolic (mm Hg) 2016-11-30 14:15:00 [facility] [place] Weight 2016-09-15 14:30:00 [facility] Height 2016-09-15 14:30:00 [facility] Temperature Oral (F) 2016-09-15 14:30:00 98.5 F [facility] [place] Heart Rate 2016-09-15 14:30:00 [facility] Diastolic (mm Hg) 2016-09-15 14:30:00 [facility] [place] Systolic (mm Hg) 2016-09-15 14:30:00 [facility] [place] Weight 2016-06-01 20:45:00 [facility] Height 2016-06-01 20:45:00 [facility] Temperature Oral (F) 2016-06-01 20:45:00 98.6 F [facility] [place] Heart Rate 2016-06-01 20:45:00 [facility] Diastolic (mm Hg) 2016-06-01 20:45:00 [facility] [place] Systolic (mm Hg) 2016-06-01 20:45:00 [facility] [place] Weight 2016-04-20 19:30:00 [facility] Height 2016-04-20 19:30:00 [facility] Temperature Oral (F) 2016-04-20 19:30:00 98.8 F [facility] Heart Rate 2016-04-20 19:30:00 [facility] Diastolic (mm Hg) 2016-04-20 19:30:00 [facility] [place] Systolic (mm Hg) 2016-04-20 19:30:00 [facility] [place] Weight 2016-03-21 19:30:00 [facility] Height 2016-03-21 19:30:00 [facility] [place] Temperature Oral (F) 2016-03-21 19:30:00 98.8 F [facility] Diastolic (mm Hg) 2016-03-21 19:30:00 [facility] [place] Systolic (mm Hg) 2016-03-21 19:30:00 [facility] [place] Weight 2016-02-09 13:45:00 [facility] Height 2016-02-09 13:45:00 [facility] [place] Temperature Oral (F) 2016-02-09 13:45:00 99.0 F [facility] [place] Heart Rate 2016-02-09 13:45:00 [facility] Diastolic (mm Hg) 2016-02-09 13:45:00 [facility] [place] Systolic (mm Hg) 2016-02-09 13:45:00 [facility] [place] Weight 2015-07-05 17:15:00 [facility] Height 2015-07-05 17:15:00 [facility] Temperature Oral (F) 2015-07-05 17:15:00 98.6 F [facility] Heart Rate 2015-07-05 17:15:00 [facility] Diastolic (mm Hg) 2015-07-05 17:15:00 [facility] [place] Systolic (mm Hg) 2015-07-05 17:15:00 [facility] [place] Weight 2015-06-04 16:45:00 [facility] Height 2015-06-04 16:45:00 [facility] [place] Temperature Oral (F) 2015-06-04 16:45:00 97.6 F [facility] [place] Heart Rate 2015-06-04 16:45:00 [facility] Diastolic (mm Hg) 2015-06-04 16:45:00 [facility] [place] Systolic (mm Hg) 2015-06-04 16:45:00 [facility] [place] Weight 2015-02-15 19:30:00 [facility] Height 2015-02-15 19:30:00 [facility] [place] Temperature Oral (F) 2015-02-15 19:30:00 98.7 F [facility] Heart Rate 2015-02-15 19:30:00 [facility] Diastolic (mm Hg) 2015-02-15 19:30:00 [facility] [place] Systolic (mm Hg) 2015-02-15 19:30:00 [facility] [place] Weight 2015-01-15 16:00:00 [facility] Height 2015-01-15 16:00:00 [facility] Temperature Oral (F) 2015-01-15 16:00:00 99.1 F [facility] Heart Rate 2015-01-15 16:00:00 [facility] [place] Diastolic (mm Hg) 2015-01-15 16:00:00 [facility] [place] Systolic (mm Hg) 2015-01-15 16:00:00 [facility] [place] Weight 2014-09-28 19:00:00 [facility] [place] Height 2014-09-28 19:00:00 [facility] [place] Temperature Oral (F) 2014-09-28 19:00:00 99.0 F [facility] Heart Rate 2014-09-28 19:00:00 [facility] Diastolic (mm Hg) 2014-09-28 19:00:00 [facility] [place] Systolic (mm Hg) 2014-09-28 19:00:00 [facility] [place] Weight 2014-07-24 18:45:00 [facility] [place] Height 2014-07-24 18:45:00 [facility] [place] Temperature Oral (F) 2014-07-24 18:45:00 99.2 F [facility] Heart Rate 2014-07-24 18:45:00 [facility] [place] Diastolic (mm Hg) 2014-07-24 18:45:00 [facility] [place] Systolic (mm Hg) 2014-07-24 18:45:00 [facility] [place] Weight 2014-07-17 17:30:00 [facility] Height 2014-07-17 17:30:00 [facility] Temperature Oral (F) 2014-07-17 17:30:00 99.7 F [facility] Heart Rate 2014-07-17 17:30:00 [facility] [place] Diastolic (mm Hg) 2014-07-17 17:30:00 [facility] [place] Systolic (mm Hg) 2014-07-17 17:30:00 [facility] [place] Weight 2014-04-16 15:15:00 [facility] [place] Height 2014-04-16 15:15:00 [facility] Temperature Oral (F) 2014-04-16 15:15:00 98.0 F [facility] Heart Rate 2014-04-16 15:15:00 [facility] Diastolic (mm Hg) 2014-04-16 15:15:00 [facility] [place] Systolic (mm Hg) 2014-04-16 15:15:00 [facility] [place] Weight 2014-03-16 15:15:00 [facility] Height 2014-03-16 15:15:00 [facility] [place] Temperature Oral (F) 2014-03-16 15:15:00 98.3 F [facility] [place] Heart Rate 2014-03-16 15:15:00 [facility] Diastolic (mm Hg) 2014-03-16 15:15:00 [facility] [place] Systolic (mm Hg) 2014-03-16 15:15:00 [facility] [place] Weight 2013-12-22 21:00:00 [facility] Height 2013-12-22 21:00:00 [facility] Temperature Oral (F) 2013-12-22 21:00:00 98.5 F [facility] Heart Rate 2013-12-22 21:00:00 [facility] Diastolic (mm Hg) 2013-12-22 21:00:00 [facility] [place] Systolic (mm Hg) 2013-12-22 21:00:00 [facility] [place] Weight 2013-12-05 17:00:00 [facility] [place] Height 2013-12-05 17:00:00 [facility] Temperature Oral (F) 2013-12-05 17:00:00 98.3 F [facility] Heart Rate 2013-12-05 17:00:00 [facility] [place] Diastolic (mm Hg) 2013-12-05 17:00:00 [facility] [place] Systolic (mm Hg) 2013-12-05 17:00:00 [facility] [place] Weight 2013-11-28 15:00:00 [facility] Height 2013-11-28 15:00:00 [facility] Temperature Oral (F) 2013-11-28 15:00:00 98.1 F [facility] Heart Rate 2013-11-28 15:00:00 [facility] Diastolic (mm Hg) 2013-11-28 15:00:00 [facility] [place] Systolic (mm Hg) 2013-11-28 15:00:00 [facility] [place] Weight 2013-10-15 20:30:00 [facility] Height 2013-10-15 20:30:00 [facility] [place] Temperature Oral (F) 2013-10-15 20:30:00 98.3 F [facility] [place] Heart Rate 2013-10-15 20:30:00 [facility] [place] Diastolic (mm Hg) 2013-10-15 20:30:00 [facility] [place] Systolic (mm Hg) 2013-10-15 20:30:00 [facility] [place] Weight 2013-10-01 19:45:00 [facility] [place] Temperature Oral (F) 2013-10-01 19:45:00 97.9 F [facility] [place] Heart Rate 2013-10-01 19:45:00 [facility] [place] Diastolic (mm Hg) 2013-10-01 19:45:00 [facility] [place] Systolic (mm Hg) 2013-10-01 19:45:00 [facility] [place] Diastolic (mm Hg) 2013-09-25 14:15:00 [facility] [place] Respitory Rate 2013-09-25 14:15:00 [facility] [place] Systolic (mm Hg) 2013-09-25 14:15:00 [facility] [place] Heart Rate 2013-09-25 14:15:00 [facility] Diastolic (mm Hg) 2013-09-25 14:10:00 [facility] [place] Respitory Rate 2013-09-25 14:10:00 [facility] [place] Systolic (mm Hg) 2013-09-25 14:10:00 [facility] [place] Heart Rate 2013-09-25 14:10:00 [facility] [place] Respitory Rate 2013-09-25 14:05:00 [facility] [place] Diastolic (mm Hg) 2013-09-25 14:05:00 [facility] [place] Systolic (mm Hg) 2013-09-25 14:05:00 [facility] [place] Heart Rate 2013-09-25 14:05:00 [facility] [place] Heart Rate 2013-09-25 12:13:00 [facility] [place] Temperature Oral (F) 2013-09-25 12:13:00 36.9 Marjorie [facility] [place] Temperature Oral (F) 2013-09-19 18:09:00 37.0 Marjorie [facility] [place] Weight 2013-09-19 18:09:00 [facility] [place] Height 2013-09-19 18:09:00 163 cm [facility] [place] Weight 2013-09-15 19:45:00 [facility] Height 2013-09-15 19:45:00 [facility] [place] Temperature Oral (F) 2013-09-15 19:45:00 98.4 F [facility] [place] Heart Rate 2013-09-15 19:45:00 [facility] [place] Diastolic (mm Hg) 2013-09-15 19:45:00 [facility] [place] Systolic (mm Hg) 2013-09-15 19:45:00 [facility] Procedures Procedure Date / Time Performing Clinician Source Performed Post Op Promis 29 Survey 2019-04-11 [facility] 1 OR 2 S 2018-05-15 00:00[facility]] XRAY SHOULDER MIN 2 2018-01-11 [id number] XRAY KNEE 1 OR 2 S 2017-09-13 00:00:00 Uni [facility] RIGHT [id number] Physicians Excision, interdigital 2013-09-25 05:00:00 Lyndon Worley) neuroma, single, each Fasciotomy 2013-09-25 05:00:00 Jerilyn matthews Fasciotomy, foot and/or 2013-09-25 05:00:00 Bart Mcneill toe Other excision or avulsion 2013-09-25 05:00:00 Gibson Mcneill of cranial and peripheral nerves Radiologic examination, 2013-09-25 05:00:00 Bart Mcneill chest, 2 views, frontal and lateral; History of no history of Univers [facility] surgery Physicians ACL band replacement [facility] rmann ankle - right [facility] [place] Appendectomy [facility] [place] bunion right foot [facility] gastro sleeve [facility] Hy[facility] [place] left total hip [facility] right cataract surgery [facility] [place] Tonsillectomy [facility] Encounters Start End Encounter Admission Attending Care Care Encounter Source Date/Time Date/Time Type Type Clinicians Facility Department ID 2019-07-14 2019-07-14 Appointmen TAMIKA BULL Orthopedics [id number] [facility] 13:25:00 13:25:00 t; Tamir MENDEZ [facility] Tai Rossi M.D. ans 2019-05-27 2019-05-27 [facility] Orthopedics [id number] Univers 10:50:00 10:50:00 t; Tamir MENDEZ - [place] [facility] [place] BULL Physici M.D. ans 2019-05-12 2019-05-12 [facility] Orthopedics [id number] Univers 15:05:00 15:05:00 t; Tamir MENDEZ of [place], [place] Tai MENDEZ M.D. ans 2019-05-12 2019-05-12 [id number] Univers 13:50:00 13:50:00 t; [place] MEN[place] M.D. ans 2019-04-14 2019-04-14 [facility] Orthopedics [id number] Univers 14:10:00 14:10:00 t; Tamir MENDEZ - Tomas arnold y [place] Tai MENDEZ M.D. ans 2019-04-07 2019-04-09 Outpatient [facility] [id number] 08:19:56 17:00:00 Leo 8 2019-04-07 2019-04-07 [facility] Orthopedics [id number] Univers 08:00:00 08:00:00 t; Tamir MENDEZ [place], [place] Tai EMNDEZ M.D. ans 2019-03-13 2019-03-13 [facility] Orthopedics [id number] Univers 15:30:00 15:30:00 t; Tamir MENDEZ [place], [place] Tai MENDEZ M.D. ans 2019-01-20 2019[facility]20 [facility] Orthopedics [id number] Univers 15:55:00 15:55:00 t; Tamir MENDEZ - [place] [facility] [place] [facility] Physici M.D. ans 2019-01-10 2019-01-10 Outpatient [facility] [id number] eClinic 11:02:00 11:02:00 Primary Primary alWork s Care [facility] Teachermarylu Winn, PA PA 2018-12-11 2018-12-11 AppointTAMIKA Donovan Orthopedics [id number] Univers 14:45:00 14:45:00 t; Tamir MENDEZ - Papo denise of [place], [place] Tai MENDEZ M.D. ans 2018-10-17 2018-10-17 Outpatient [facility] [id number] eClinic 16:59:00 16:59:00 Primary Primary alWork s Care [facility] marylu Jacobs, PA PA 2018-10-01 2018-10-01 Outpatient [facility] [id number] eClinic 14:45:00 14:45:00 Primary Primary alWork s Care [facility] Teachermarylu Winn, PA PA 2018-09-24 2018-09-24 Outpatient [facility] [id number] eClinic 10:00:00 10:00:00 Primary Primary alWork s Care [facility] Teacher[facility] Winn, PA PA 2018-07-19 2018-07-19 Outpatient [facility] [id number] eClinic 10:15:00 10:15:00 Primary Primary alWork s Care [facility] Teacher[facility]lu Winn, PA PA 2018-07-11 2018-07-11 Outpatient [facility] [id number] eClinic 15:30:00 15:30:00 Primary Primary alWork s Care [facility] Teacher[facility] Winn, PA PA 2018-05-20 2018-05-20 Outpatient [facility] [id number] eClinic 10:30:00 10:30:00 Primary Primary alWork s Care [facility] Teachermarylu Winn, PA PA 2018-05-15 2018-05-15 TAMIKA Atkins [facility] [id number] [facility] 13:55:00 13:55:00 t; Tamir MENDEZ Orthopedic ity [facility] - [place] as Papo MENDEZ M.D. ans 2018-04-24 2018-04-24 Outpatient [facility] [id number] eClinic 11:43:00 11:43:00 Primary Primary alWork s Care [facility] [employer] marylu Jacobs, PA PA 2018-04-11 2018-04-11 Outpatient [facility] [id number] eClinic 15:00:00 15:00:00 Primary Primary alWork s Care [facility] Teachermarylu Winn, PA PA 2018-03-19 2018-03-19 TAMIKA Atkins [facility] [id number] Univers 14:40:00 14:40:00 t; Tamir MENDEZ [facility]opedic [facility] [place], Surgery - [place] as Papo MENDEZ M.D. ans 2018-02-20 2018-02-20 Outpatient [facility] [id number] eClinic 16:00:00 16:00:00 Primary Primary alWork s Care [facility] Arlene s, PA PA 2018-02-06 2018-02-06 Outpatient [facility] [id number] eClinic 15:30:00 15:30:00 Primary Primary alWork s Care [facility] [employer] marylu Jacobs, PA PA 2018-02-06 2018-02-06 AppointTAMIKA Donovan [facility] [id number] Univers 14:10:00 14:10:00 t; Tamir MENDEZ [facility] [place], Surgery - [place] as Papo MENDEZ M.D. ans 2018-01-24 2018-01-24 Outpatient [facility] [id number] eClinic 14:30:00 14:30:00 Primary Primary alWork s Care [facility] marylu Jacobs, PA PA 2018-01-11 2018-01-11 TAMIKA Atkins [facility] [id number] Univers 10:50:00 10:50:00 t; Tamir MENDEZ [facility] [place], Surgery - [place] as Papo MENDEZ M.D. ans 2018-01-10 2018-01-10 Outpatient [facility] [id number] eClinic 14:30:00 14:30:00 Primary Primary alWork s Care [facility] Arlene s, PA PA 2017-12-27 2017-12-27 Outpatient [facility] [id number] eClinic 14:30:00 14:30:00 Primary Primary alWork s Care [facility] Arlene s, PA PA 2017-12-14 2017-12-14 Outpatient [facility] [id number] eClinic 11:00:00 11:00:00 Primary Primary alWork s Care [facility] Arlene s, PA PA 2017-12-13 2017-12-13 Outpatient [facility] [id number] eClinic 15:45:00 15:45:00 Primary Primary alWork s Care [facility] Arlene s, PA PA 2017-12-10 2017-12-10 AppointTAMIKA Donovan [facility] [id number] Univers 15:00:00 15:00:00 t; Tamir MENDEZ [facility] [place], Surgery - Andrés as Tomas MENDEZ M.D. ans 2017-12-06 2017-12-06 Outpatient [facility] [id number] eClinic 15:15:00 15:15:00 Primary Primary alWork s Care [facility], s, PA PA 2017-11-29 2017-11-29 Outpatient [facility] [id number] eClinic 15:30:00 15:30:00 Primary Primary alWork s Care [facility] s, PA PA 2017-11-21 2017-11-21 Outpatient [facility] [id number] eClinic 15:00:00 15:00:00 Primary Primary alWork s Care [facility] s, PA PA 2017-11-05 2017-11-05 TAMIKA Atkins [facility] [id number] Univers 16:10:00 16:10:00 t; Tamir MENDEZ [facility] [place], Surgery - And[place] as Papo MENDEZ M.D. ans 2017-10-16 2017-10-16 Outpatient [facility] [id number] eClinic 10:45:00 10:45:00 Primary Primary alWork s Care [facility] s PA PA 2017-10-15 2017-10-15 TAMIKA Atkins [facility] [id number] Univers 15:45:00 15:45:00 t; Tamir MENDEZ [facility] [place], Surgery - [place] as Papo MENDEZ M.D. ans 2017-09-24 2017-09-24 Outpatient [facility] [id number] eClinic 13:30:00 13:30:00 Primary Primary alWork s Care [facility] Arlene valero PA PA 2017-09-17 2017-09-17 TAMIKA Atkins [facility] [id number] Univers 15:45:00 15:45:00 t; Tamir MENDEZ [facility] [place], Surgery - Andr[place] as Papo MENDEZ M.D. ans 2017-09-13 2017-09-13 TAMIKA Atkins [facility] [id number] Univers 15:20:00 15:20:00 t; Tamir MENDEZ [facility] [place], Surgery - Andr[place] as Papo MENDEZ M.D. 2017-09-10 2017-09-10 Outpatient [facility] [id number] eClinic 13:45:00 13:45:00 Primary Primary alWork s Care [facility] s PA PA 2017-08-17 2017-08-17 Outpatient [facility] [id number] eClinic 09:30:00 09:30:00 Primary Primary alWork s Care [facility] PA PA 2017-08-15 2017-08-15 Outpatient [facility] [id number] eClinic 13:31:00 13:31:00 Primary Primary alWork s Care [facility] PA PA 2017-08-14 2017-08-14 Outpatient [facility] [id number] eClinic 14:22:00 14:22:00 Primary Primary alWork s Care [facility] PA PA 2017-07-19 2017-07-19 Outpatient [facility] [id number] eClinic 15:10:00 15:10:00 Primary Primary alWork s Care [facility] PA PA 2017-07-05 2017-07-05 Outpatient [facility] [id number] eClinic 10:45:00 10:45:00 Primary Primary alWork s Care [facility] PA PA 2017-06-19 2017-06-19 Outpatient [facility] [id number] eClinic 17:01:00 17:01:00 Primary Primary alWork s Care [facility] PA PA 2017-06-06 2017-06-06 Outpatient [facility] [id number] eClinic 11:00:00 11:00:00 Primary Primary alWork s Care [facility] PA PA 2017-05-30 2017-05-30 Outpatient [facility] [id number] eClinic 10:53:00 10:53:00 Primary Primary alWork s Care [facility] PA PA 2017-05-17 2017-05-17 Outpatient [place], [id number] 08:07:10 11:54:00 Philip English 2017-05-11 2017-05-11 Outpatient [facility] [id number] eClinic 09:45:00 09:45:00 Primary Primary alWork s Care [facility] PA PA 2017-05-08 2017-05-08 Outpatient [facility] [id number] eClinic 08:40:00 08:40:00 Primary Primary alWork s Care [facility] PA PA 2017-05-03 2017-05-03 Outpatient [facility] [id number] eClinic 15:15:00 15:15:00 Primary Primary alWork s Care [facility] PA PA 2017-04-26 2017-04-26 Outpatient [facility] [id number] eClinic 09:45:00 09:45:00 Primary Primary alWork s Care [facility] PA PA 2017-02-14 2017-02-14 Outpatient [facility] [id number] eClinic 15:15:00 15:15:00 Primary Primary alWork s Care [facility] PA PA 2017-02-06 2017-02-06 Outpatient [facility] [id number] eClinic 14:54:00 14:54:00 Primary Primary alWork s Care [facility] PA PA 2017-02-06 2017-02-06 Outpatient [facility] [id number] eClinic 14:47:00 14:47:00 Primary Primary alWork s Care [facility] PA PA 2017-01-31 2017-01-31 Outpatient [facility] [id number] eClinic 10:45:00 10:45:00 Primary Primary alWork s Care [facility] PA PA 2017-01-30 2017-01-30 Outpatient [facility] [id number] eClinic 09:37:00 09:37:00 Primary Primary alWork s Care [facility] PA PA 2016-11-30 2016-11-30 Outpatient [facility] [id number] eClinic 09:15:00 09:15:00 Primary Primary alWork s Care [facility] PA PA 2016-09-15 2016-09-15 Outpatient [facility] [id number] eClinic 09:30:00 09:30:00 Primary Primary alWork s Care [facility] PA PA 2016-08-29 2016-08-29 Outpatient [facility] [id number] eClinic 11:29:00 11:29:00 Primary Primary alWork s Care [facility], PA PA 2016-08-18 2016-08-18 Outpatient [facility] [id number] eClinic 10:41:00 10:41:00 Primary Primary alWork s Care [facility] Arlene s, PA PA 2016-08-16 2016-08-16 Outpatient [facility] [id number] eClinic 08:29:00 08:29:00 Primary Primary alWork s Care [facility], PA PA 2016-08-11 2016-08-11 Outpatient [facility] [id number] eClinic 10:39:00 10:39:00 Primary Primary alWork s Care [facility], PA PA 2016-07-19 2016-07-19 Outpatient [facility] [id number] eClinic 10:07:00 10:07:00 Primary Primary alWork s Care [facility] Arlene s, PA PA 2016-06-22 2016-06-22 Outpatient [facility] [id number] eClinic 11:32:00 11:32:00 Primary Primary alWork s Care [facility] Arlene s, PA PA 2016-06-01 2016-06-01 Outpatient [facility] [id number] eClinic 14:45:00 14:45:00 Primary Primary alWork s Care [facility] Arlene s, PA PA 2016-04-20 2016-04-20 Outpatient [facility] [id number] eClinic 14:30:00 14:30:00 Primary Primary alWork s Care [facility] Arlene s, PA PA 2016-03-21 2016-03-21 Outpatient [facility] [id number] eClinic 14:30:00 14:30:00 Primary Primary alWork s Care [facility] Arlene s, PA PA 2016-02-09 2016-02-09 Outpatient [facility] [id number] eClinic 08:45:00 08:45:00 Primary Primary alWork s Care [facility] Arlene s, PA PA 2016-02-02 2016-02-02 Outpatient [facility] [id number] eClinic 11:04:00 11:04:00 Primary Primary alWork s Care [facility] Arlene s, PA PA 2016-01-10 2016-01-10 Outpatient [facility] [id number] eClinic 09:18:00 09:18:00 Primary Primary alWork s Care [facility] Arlene s, PA PA 2016-01-07 2016-01-07 Outpatient [facility] [id number] eClinic 09:39:00 09:39:00 Primary Primary alWork s Care [facility] Arlene s, PA PA 2015-10-27 2015-10-27 Outpatient [facility] [id number] eClinic 15:45:00 15:45:00 Primary Primary alWork s Care [facility] Arlene s, PA PA 2015-08-27 2015-08-27 Outpatient [facility] [id number] eClinic 08:12:00 08:12:00 Primary Primary alWork s Care [facility] Arlene s, PA PA 2015-07-05 2015-07-05 Outpatient [facility] [id number] eClinic 11:15:00 11:15:00 Primary Primary alWork s Care [facility], s, PA PA 2015-06-21 2015-06-21 Outpatient [facility] [id number] eClinic 11:24:00 11:24:00 Primary Primary alWork s Care [facility] Arlene s, PA PA 2015-06-04 2015-06-04 Outpatient [facility] [id number] eClinic 10:45:00 10:45:00 Primary Primary alWork s Care [facility] Arlene s, PA PA 2015-06-04 2015-06-04 Outpatient [facility] [id number] eClinic 10:45:00 10:45:00 Primary Primary alWork s Care [facility] Arlene s, PA PA 2015-02-15 2015-02-15 Outpatient [facility] [id number] eClinic 14:30:00 14:30:00 Primary Primary alWork s Care [facility] Arlene s, PA PA 2015-01-19 2015-01-19 Outpatient [facility] [id number] eClinic 15:37:00 15:37:00 Primary Primary alWork s Care [facility] [employer] Arlene s, PA PA 2015-01-15 2015-01-15 Outpatient [facility] [id number] eClinic 11:00:00 11:00:00 Primary Primary alWork s Care [facility] Arlnee s, PA PA 2014-09-28 2014-09-28 Outpatient [facility] [id number] eClinic 14:00:00 14:00:00 Primary Primary alWork s Care [facility] [employer] Arlene s, PA PA 2014-07-24 2014-07-24 Outpatient [facility] [id number] eClinic 12:45:00 12:45:00 Primary Primary alWork s Care [facility] [employer] Arlene s, PA PA 2014-07-17 2014-07-17 Outpatient [facility] [id number] eClinic 11:30:00 11:30:00 Primary Primary alWork s Care [facility] [employer] Arlene s, PA PA 2014-07-13 2014-07-13 Outpatient [facility] [id number] eClinic 16:14:00 16:14:00 Primary Primary alWork s Care [facility] [employer] Arlene s, PA PA 2014-06-08 2014-06-08 Outpatient [facility] [id number] eClinic 16:00:00 16:00:00 Primary Primary alWork s Care [facility] [employer] Arlene s, PA PA 2014-04-16 2014-04-16 Outpatient [facility] [id number] eClinic 09:15:00 09:15:00 Primary Primary alWork s Care [facility] [employer] Arlene s, PA PA 2014-03-18 2014-03-18 Outpatient [facility] [id number] eClinic 15:16:00 15:16:00 Primary Primary alWork s Care [facility] Teacher marylu Jacobs, PA PA 2014-03-16 2014-03-16 Outpatient [facility] [id number] eClinic 10:15:00 10:15:00 Primary Primary alWork s Care [facility] TeacherAssociate Jacobs s, PA PA 2014-01-08 2014-01-08 Outpatient [facility] [id number] eClinic 16:42:00 16:42:00 Primary Primary alWork s Care [facility] [employer] Arlene s, PA PA 2014-01-08 2014-01-08 Outpatient [facility] [id number] eClinic 14:59:00 14:59:00 Primary Primary alWork s Care [facility] [employer] Arlene s, PA PA 2013-12-29 2013-12-29 Outpatient [facility] [id number] eClinic 15:03:00 15:03:00 Primary Primary alWork s Care [facility] Teacher[employer] Jacobs s, PA PA 2013-12-22 2013-12-22 Outpatient [facility] [id number] eClinic 16:00:00 16:00:00 Primary Primary alWork s Care [facility] [employer] Arlene s, PA PA 2013-12-05 2013-12-05 Outpatient [facility] [id number] eClinic 12:00:00 12:00:00 Primary Primary alWork s Care [facility] [employer] Arlene s, PA PA 2013-12-01 2013-12-01 Outpatient [facility] [id number] eClinic 11:02:00 11:02:00 Primary Primary alWork s Care [facility] Teacher[employer] Jacobs s, PA PA 2013-11-28 2013-11-28 Outpatient [facility] [id number] eClinic 10:00:00 10:00:00 Primary Primary alWork s Care [facility] Teacher[employer] Jacobs s, PA PA 2013-10-15 2013-10-15 Outpatient [facility] [id number] eClinic 15:30:00 15:30:00 Primary Primary alWork s Care [facility], [facility] PA 2013-10-01 2013-10-01 Outpatient [facility] [id number] eClinic 14:45:00 14:45:00 Primary Primary alWork s Care [facility] [facility], [facility] PA 2013-09-25 2013-09-25 Outpatient MHIE MHIE [id number] [facility] 06:26:43 09:30:00 [facility] [place] [facility] 2013-09-24 2013-09-24 Outpatient [facility] [id number] eClinic 12:23:00 12:23:00 Primary Primary alWork s Care [facility], sNAEEM Results Test Description Test Time Test Comments Results Result Sourc parag Comments [U] XRAY KNEE 1 2019-07-02 Images acquired, not [facility] [place] 2 VWS LEFT 3 reported on this [place] [id number] 13:10:00 accession number. Tai johnson [U] XRAY KNEE 1 2019-05-03 Images acquired, [place] [facility] [place] 2 VWS LEFT 6 reported on this [place] [id number] 10:53:00 accession number. Tai johnson SURGICAL 2019-04-01 SPECIMENS 5 10:42:00 RUN DATE: 04/15/19 [facility] - LAB PAGE 1 RUN TIME: 1042 Specimen Inquiry RUN USER: INTERFACE PATIENT: CANDACE DUPREE LOC: [id number].MHSHKNG U #: [id number] AGE/SX: 63/F ROOM: RE04/08/19REG DR: Leo Bull : 53 BED: DIS: STATUS: REG REF TLOC: SPEC #: [id number] RECD: 04/07/19 STATUS: GLENNA ANGELES #: [id number] SATINDER: 04/07/19-[address]: Leo Bull MD ENTERED: 04/08/19 TYPE: SURG OTHR DR: ORDERED: PATHGM4, DECAL, [...] firm cut-surfaces with no area or softening. Tubing Machine Operator decalcified sections are submitted by the NAEEM in cassette A1. LS 04/08/2019 10:00 AM [...] Jason Leung 04/15/19 1042 END OF REPORT LABORATORY 14 [facility] [place] 15:04:00 LABORATORY 22 [facility] [place] 15:04:00 LABORATORY 0.9 [facility] [place] 15:04:00 LABORATORY 38 [facility] [place] 15:04:00 LABORATORY 12.9 [facility] [place] 15:04:00 LABORATORY 142 [facility] [place] 15:04:00 LABORATORY 29 [facility] [place] 15:04:00 LABORATORY 1.22 [facility] [place] 15:04:00 LABORATORY 129 [facility] [place] 15:04:00 LABORATORY 104 [facility] [place] 15:04:00 LABORATORY 4.4 [facility] [place] 15:04:00 LABORATORY 2019-03-03 0.1 [facility] 5 [place] 17:26:00 LABORATORY 2019-03-03 0.2 [facility] [place] 17:26:00 LABORATORY 2019-03-03 0.7 [facility] [place] 17:26:00 LABORATORY 2019-03-03 5.6 [facility] [place] 17:26:00 LABORATORY 2019-03-03 1.5 [facility] 5 [place] 17:26:00 LABORATORY 2019-03-03 0.8 [facility] 5 [place] 17:26:00 LABORATORY 2019-03-03 1.9 [facility] [place] 17:26:00 LABORATORY 2019-03-03 18.7 [facility] 5 [place] 17:26:00 LABORATORY 2019-03-03 68.9 [facility] 5 [place] 17:26:00 LABORATORY 2019-03-03 9.8 [facility] [place] 17:26:00 LABORATORY 2019-03-03 13.8 [facility] [place] 17:26:00 LABORATORY 2019-03-03 36.4 [facility] [place] 17:26:00 LABORATORY 2019-03-03 96.8 [facility] [place] 17:26:00 LABORATORY 2019-03-26 17:26:00 Test Item Value Reference Range Interpretation Comme nts MCH (test code = MCH) 32.2 pg 27.0-31.0 [facility]icsImbmmawWODWLCERDV0897-64-70 17:26:0033.3[facility] 2019-03-26 17:26:008.2[facility] AcsglyqWVPDLHLXQG1717-57-25 17:26:003.76[facility] PwrndubLRXXAXEUDO1781-98-46 17:26:0012.1[facility] PgmphhoNVWGOJJRWK4947-75-56 17:26:88310YjidwdgtEast [facility] ClinicsHwkolhhGVULTNJDUC2779-69-40 17:26:008.4[facility]2019-09-25 17:26:00Reported (03/26/19 12:26 PM)[facility]2019-09-25 17:26:0052[facility]oriEast [facility] ClinicsFkgbchtXEDJYMNEFT8049-06-62 17:26:004 [facility]icsKhqhvgeIWFTTRBAHR8284-35-72 17:26:001[facility] 2019-03-26 17:26:00 Test Item Value Reference Range Interpretation Comments UA pH (test code = UA pH) 5.0 1 5.0-8.0 [facility]icsWvtucxgXEJKUKTDAY7456-47-50 17:26:00 Test Item Value Reference Range Interpretation Comments UA Spec Grav (test code = UA Spec 1.019 1 Grav) [facility]icsVdtjbjfURVLDUZCQF1104-81-79 17:26:00<=1.0[facility] 2019-03-26 17:26:0082[facility] DejcstfQUXZRSBDAI9471-70-07 17:26:009.1MB[facility] GrapevineOqpbdsmXGMYRDCADN2450-73-58 17:26:0030[facility] QsvwnheTFIEFRNGSN5768-87-40 17:26:0020[facility]oriTexas [facility] WoodlandsLjgscxmWAVBVDBFPL8233-07-45 17:26:000.3[facility]2019-09-25 17:26:0062[facility]oriTexas [facility] WoodlandsNhguwnqCMEZZHMSAA2928-65-68 17:26:00 Test Item Value Reference Range Interpretation Comments Alb/Glob Ratio (test code = Alb/Glob 1.2 1 0.7-1.6 Ratio) [facility] CenterYtwrydlRXOACJSCAV4502-20-17 17:26:007.1[facility]ann[facility] 2019-03-26 17:26:003.8[facility] QszfzocIKLXYRTALF2900-30-57 17:26:003.3MMedical Center HospitalXztzariCENUALKKKA7371-41-10 17:26:0094[facility] MdihlnhTUXWOHCDPD6358-34-84 17:26:0025Meohrial KceazftQRYXZJKDZG0030-19-69 17:26:000.97Me[facility]rial [place] HRHPZIJXHA0458-57-22 17:26:0012.3MMedical Center HospitalGjfueeoKKLXRLMNOI6583-19-90 17:26:0030 [facility] CenterNyipankPCHMWXPWYC2460-12-38 17:26:08332Cquomndj [facility]annLAB[facility] 2019-03-26 17:26:54928Tokknyya KqixakzEDBZBIADLV8861-12-96 17:26:005.3MMedical Center HospitalSucjdlxFPFVZHAHNW9246-59-72 17:26:00 Test Item Value Reference Range Interpretation Comments PTT (test code = PTT) 28.5 s 22.9-35.8 [facility]icsOgshmtfZKEWAFHANO6957-01-29 17:26:00 Test Item Value Reference Range Interpretation Comments PT (test code = PT) 12.6 s 12.0-14.7 [facility] ClinicsDujubrhQBEIMVBFMF3061-14-68 17:26:00 Test Item Value Reference Range Interpretation Comments INR (test code = INR) 0.96 1 0.85-1.17 [facility][U] XR KNEE 1 OR 2 VWS [id number] 13:50:00Images acquired, not reported on this accession number.[facility] [U] XRAY HIPS BILATERAL MIN 2 VWS AND AP PELVIS [id number] 14:08:00Images acquired, not reported on this accession number.[facility] [U] XRAY SHOULDER MIN 2 VWS RIGHT [id number] 10:43:00Images acquired, not reported on this accession number.[facility][U] XRAY SHOULDER MIN 2 VWS LEFT [id number] 10:42:00Images acquired, not reported on this accession number.[facility][U] XRAY KNEE 1 OR 2 VWS LEFT [id number] 16:26:00Images acquired, not reported on this accession number.[facility] PhysiciansTobacco Use [id number] 15:20:00 Test Item Value Reference Range Interpretation Comments Completed (test code = Completed) DONE [facility] KmpfdtzsfkQUAWZUNZEN1658-62-19 14:56:00 Test Item Value Reference Range Interpretation Comments PTT (test code = PTT) 28.6 s 22.9-35.8 [facility] VkrwysdYBMDUXWWNC3638-00-31 14:56:0082[facility] 2017-05-10 14:56:0023Mem[facility] HvutsrwFQHUUHHUTY9608-95-61 14:56:000.78[facility] VmfwdykFCXWCIENAS5443-27-47 14:56:0085[facility] BpglydtPWHJIOOGRA8004-80-13 14:56:71189Dlioahws LoxlzvwBJCLVIRKMJ1379-22-14 14:56:004.8[facility] [place] UZSHOUOZJU2270-84-71 14:56:91255Pmddxlgw LinurmuRGQCTKHXLE3318-55-47 14:56:009.1 [facility] ZthmftyAIVIEOAOCQ3831-40-32 14:56:0010.8[facility] 2017-05-10 14:56:0030[facility] LymrbdhVOQOOOWUKB8709-11-42 14:56:00 Test Item Value Reference Range Interpretation Comments PT (test code = PT) 13.2 s 12.0-14.7 [facility] DjpdmwkLKPZKPYXRJ1209-51-30 14:56:001.00[facility] 2017-05-10 14:56:0037.8[facility] ErfculdKHCFOKLVED7773-25-61 14:56:0012.5[facility] DyxogtkTFZGHDSQMB5344-14-76 14:56:002.1[facility] [place]
--- NOTE | 2020-07-05 10:51 | RAD REPORT ---
EXAM DESCRIPTION: CT - CTHCSPWOC - 07/05/2020 10:25 am CLINICAL HISTORY: Trauma, head and neck injury. PAIN COMPARISON: No comparisons TECHNIQUE: Axial 5 mm thick images of the head were obtained. Axial 2 mm thick images of the cervical spine were obtained with sagittal and coronal reconstruction images generated and reviewed. All CT scans are performed using dose optimization technique as appropriate and may include automated exposure control or mA/KV adjustment according to patient size. FINDINGS: CT HEAD WITHOUT CONTRAST: No acute hemorrhage, hydrocephalus or extra-axial collection is identified.Moderate generalized brain atrophy is present with moderate periventricular and deep white matter chronic microvascular ischemi c changes.No areas of brain edema or midline shift. The paranasal sinuses and mastoids are clear.The calvarium is intact. CT CERVICAL SPINE WITHOUT CONTRAST: No fracture or subluxation.3 mm degenerative anterolisthesis of C2 on 3 is noted. Multilevel mid and lower cervical spondylosis with disc thinning, vacuum disc degeneration and posterior osteophytes pre sent.No prevertebral soft tissues swelling is identified. IMPRESSION: No acute intracranial or cervical spine findings. Moderately severe multilevel cervical spondylosis.
--- NOTE | 2020-07-05 11:17 | RAD REPORT ---
EXAM DESCRIPTION: RAD - Foot Right 3 View - 07/05/2020 11:05 am CLINICAL HISTORY: PAIN COMPARISON: No comparisons FINDINGS: Single screw is present in the distal first metatarsal. Soft tissue swelling is seen along the anterior aspect of the forefoot. Prominent degenerative changes noted involving the intertarsal and tarsal-metatarsal joints. An acute fracture is not seen. Small plantar calcaneal spur.
--- NOTE | 2020-07-05 11:49 | ER ---
Nurse's Notes [facility] Name: Guerline Castellanos Age: 64 yrs Sex: Female : 1955 Arrival Date: 07/05/2020 Time: 10:04 Bed 5 Private MD: Diagnosis: Fall due to bumping against object;Laceration without foreign body of other part of head-forehead;Contusion of right foot Presentation: 07/05 10:04 Care prior to arrival: Bleeding of injury controlled. Injury dressed. 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 Coronavirus screen: Client denies travel out of the [place] in the last 14 days. At this time, the client does not indicate any symptoms associated with coronavirus-19. Ebola Screen: No symptoms or risks identified at this time. Initial Sepsis Screen: Does the patient meet any 2 criteria? No. Patient's initial sepsis screen is negative. Does the patient have a suspected source of infection? No. Patient's initial sepsis screen is negative. Risk Assessment: Do you want to hurt yourself or someone else? Patient reports no desire to harm self or others. Onset of symptoms was July 05, 2020. Care prior to arrival: Bleeding of injury controlled. Injury dressed. Transition of care: patient was not received from another setting of care. 10:05 Method Of Arrival: EMS: [facility] 10:05 Acuity: ABIODUN 2 [facility] 10:14 Mechanism of Injury: Fall from standing position. Trauma event details: Injury occurred jl7 in the [facility], Injury occurred: in a recreational area. Injury occurred: July 05, 2020 Injury occurred at: 08:30. Trauma Activation: Consult Physician: ED Physician; Name: ; Notified At: ; Arrived At: Physician: General Surgeon; Name: ; Notified At: ; Arrived At: Physician: Radiology; Name: ; Notified At: ; Arrived At: Physician: Respiratory; Name: ; Notified At: ; Arrived At: Physician: Lab; Name: ; Notified At: ; Arrived At: Historical: - Allergies: 10:13 Sulfa (Sulfonamide Antibiotics); jl7 - Home Meds: 10:13 clopidogrel 75 mg oral tab once daily [Active]; Levemir 100 unit/mL subcutaneous soln jl7 [Active]; alendronate 70 mg oral tab once wkly [Active]; Symbicort 80-4.5 mcg/actuation inhalation HFAA 2 puffs 2 times per day [Active]; Vimovo 500-20 mg oral TbID 1 tab 2 times per day [Active]; aspirin 81 mg Oral TbEC 1 tab once daily [Active]; pravastatin 20 mg oral tab 1 tab once daily [Active]; lisinopril 20 mg Oral tab [Active]; Myrbetriq 50 mg oral Tb24 [Active]; - PMHx: 10:13 Hyperlipidemia; Hypertension; COPD; Diabetes - IDDM; jl7 - PSHx: 10:13 Knee surgery; jl7 10:14 Appendectomy; Tonsillectomy; Hysterectomy; Cholecystectomy; jl7 - Immunization history:: Adult Immunizations unknown. - Social history:: Smoking status: Patient denies any tobacco usage or history of. - Immunization history: Last tetanus immunization: unknown. Screenin:04 Abuse screen: Denies threats or abuse. Denies injuries from another. Tuberculosis jl7 screening: No symptoms or risk factors identified. 10:04 Nutritional screening: No deficits noted. Fall Risk Fall in past 12 months (25 points). jl7 Mental Status- Oriented to own ability (0 pts). Total Cerrato Fall Scale indicates Low Risk Score (25-44 pts). Fall prevention measures have been instituted. Side Rails Up X 2 Placed close to Nursing Station Frequent Obs/Assesments occuring As available Patient and Family Educated on Fall Prevention Program and strategies. Primary Survey: 10:04 NO uncontrolled hemorrhage observed. A: Airway: patent. Breathing/Chest: Respiratory jl7 pattern: regular, Respiratory effort: spontaneous, unlabored, Chest inspection: symmetrical rise and fall of the chest. Circulation: Skin color: pink, Skin temperature: warm. Disability Alert. Exposure/Environment: There is no evidence of uncontrolled external bleeding. Obvious injury(ies) are noted at this time: laceration noted to right side of forehead, abrasion noted to right knee A warming method has been applied: A warm blanket has been provided to the patient. 11:00 Reassessment Airway Airway Patent Oxygen No O2 Breathing/Chest Respiratory pattern bp Regular Respiratory effort Spontaneous Unlabored Circulation Color [place] Temperature Warm Dry Disability Alert. Assessment: 10:15 General: SEE TRAUMA TAB. bp 10:15 General: Appears in no apparent distress. comfortable, obese, Behavior is calm, bp cooperative, appropriate for age. Pain: Complains of pain in forehead. 11:15 Reassessment: Patient appears in no apparent distress at this time. Patient and/or bp family updated on plan of care and expected duration. Pain level reassessed. Patient is alert, oriented x 3, equal unlabored respirations, skin warm/dry/pink. LAC REPAIR PENDING. 11:45 Reassessment: LAC REPAIR COMPLETE. bp Vital Signs: 10:04 Temp 98.6(TE); jl7 10:05 BP 144 / 102; Pulse 70; Resp 20; Pulse Ox 96% ; Weight 124.74 kg; Height 4 ft. 11 in. jl7 (149.86 cm); 10:45 BP 145 / 105; Pulse 69; Resp 19; Pulse Ox 96% ; Pain 5/10; bp 11:44 BP 154 / 84; Pulse 69; Resp 16; Pulse Ox 99% ; bp 10:05 Body Mass Index 55.54 (124.74 kg, 149.86 cm) jl7 Darian Coma Score: 10:04 Eye Response: spontaneous(4). Verbal Response: oriented(5). Motor Response: obeys jl7 commands(6). Total: 15. 10:45 Eye Response: spontaneous(4). Verbal Response: oriented(5). Motor Response: obeys jl7 commands(6). Total: 15. 11:44 Eye Response: spontaneous(4). Verbal Response: oriented(5). Motor Response: obeys jl7 commands(6). Total: 15. Trauma Score (Adult): 10:04 Eye Response: spontaneous(1); Verbal Response: oriented(1); Motor Response: obeys jl7 commands(2); Systolic BP: > 89 mm Hg(4); Respiratory Rate: 10 to 29 per min(4); Darian Score: 15; Trauma Score: 12 ED Course: 10:04 Patient arrived in ED. jl7 10:04 Florinda Trujillo RN is Primary Nurse. jl7 10:04 Bed in low position. Call light in reach. Side rails up X2. jl7 10:04 Arm band placed on right wrist. jl7 10:04 Patient maintains SpO2 saturation greater than 95% on room air. Thermoregulation: warm jl7 blanket given to patient. 10:07 Triage completed. jl7 10:08 Heath Meza MD is Attending Physician[facility] 10[facility] CT Head C Spine In Process Unspecified. EDMS 11:05 Foot Right 3 View XRAY In Process Unspecified. EDMS 12:00 Assist provider with laceration repair on forehead that was between 2.6 to 7.5 cm using ariadne sutures. Set up tray. Performed by Heath Meza MD Dressed with band aid, Patient tolerated well. Patient did not have IV access during this emergency room visit. Administered Medications: 10:23 Drug: Lidocaine-Epinephrine -1%: (1:100,000) 10 ml {Note: Administered by Dr. 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 Exp: jl7 10/21/2021. Lot #: [id number]. } Route: IM; Site: left deltoid; 11:45 Follow up: Response: No adverse reaction jl7 12:00 Drug: KeFLEX 500 mg Route: PO; jl7 12:18 Follow up: Response: Medication administered at discharge. jl7 12:00 Drug: Neosporin Ointment 1 application Route: Topical; Site: forehead; jl7 12:18 Follow up: Response: Medication administered at discharge. jl7 Intake: 12:22 PO: 0ml; IV: 0ml; Tubes: 0ml (); Total: 0ml. jl7 Output: 12:22 Urine: 0ml; Gastric: 0ml; Stool: 0; EBL: 0ml; Drainage: 0ml; Other: 0; Total: 0ml. jl7 Outcome: 11:49 [facility] 12[facility] Discharged to home via wheelchair, with family. jl7 12:00 Condition: stable 12:00 Discharge instructions given to patient, family, Instructed on discharge instructions, follow up and referral plans. medication usage, Demonstrated understanding of instructions, follow-up care, medications, Prescriptions given X 1. 12:22 Patient's length of stay was not longer than 2 hours. jl7 12:22 Patient left the ED. jl7 Signatures: Dispatcher [employer] EDHeath Enrique MD MD cha Leal, Jahala RN RN jl7 Ezra Loyola, RN RN bp Corrections: (The following items were deleted from the chart) 10:18 10:05 Acuity: ABIODUN 4 jl7 jl7 11:30 10:14 Trauma event details: Injury occurred in the [facility], Injury occurred: jl7 in a recreational area. Injury occurred: July 05, 2020 Injury occurred at: 09:30 jl7 11:44 10:45 BP 145 / 105; Pulse 69bpm; Resp 19bpm; Pulse Ox 70%; Pain 5/10; jl7 bp
--- NOTE | 2020-07-05 11:49 | EDPHYS ---
Physician Documentation [facility] Name: Guerline Castellanos Age: 64 yrs Sex: Female : 1955 Arrival Date: 07/05/2020 Time: 10:04 Bed 5 Private MD: ED Physician Heath Meza HPI: 07/05 11:40 This 64 yrs old Female presents to ER via EMS with complaints of Fall Injury. sade 11:40 Details of fall: The patient fell from an upright position, while walking. Onset: The sade symptoms/episode began/occurred this morning. Associated injuries: The patient sustained injury to the head. Severity of symptoms: At their worst the symptoms were mild, in the emergency department the symptoms are unchanged. The patient has not experienced similar symptoms in the past. Historical: - Allergies: 10:13 Sulfa (Sulfonamide Antibiotics); jl7 - Home Meds: 10:13 clopidogrel 75 mg oral tab once daily [Active]; Levemir 100 unit/mL subcutaneous soln jl7 [Active]; alendronate 70 mg oral tab once wkly [Active]; Symbicort 80-4.5 mcg/actuation inhalation HFAA 2 puffs 2 times per day [Active]; Vimovo 500-20 mg oral TbID 1 tab 2 times per day [Active]; aspirin 81 mg Oral TbEC 1 tab once daily [Active]; pravastatin 20 mg oral tab 1 tab once daily [Active]; lisinopril 20 mg Oral tab [Active]; Myrbetriq 50 mg oral Tb24 [Active]; - PMHx: 10:13 Hyperlipidemia; Hypertension; COPD; Diabetes - IDDM; jl7 - PSHx: 10:13 Knee surgery; jl7 10:14 Appendectomy; Tonsillectomy; Hysterectomy; Cholecystectomy; jl7 - Immunization history:: Adult Immunizations unknown. - Social history:: Smoking status: Patient denies any tobacco usage or history of. - Immunization history: Last tetanus immunization: unknown. ROS: 11:41 Constitutional: Negative for fever, chills, and weight loss, Eyes: Negative for injury, sade pain, redness, and discharge, ENT: Negative for injury, pain, and discharge, Neck: Negative for injury, pain, and swelling, Cardiovascular: Negative for chest pain, palpitations, and edema, Respiratory: Negative for shortness of breath, cough, wheezing, and pleuritic chest pain, Abdomen/GI: Negative for abdominal pain, nausea, vomiting, diarrhea, and constipation, Back: Negative for injury and pain, : Negative for injury, bleeding, discharge, and swelling, MS/Extremity: Negative for injury and deformity, Neuro: Negative for headache, weakness, numbness, tingling, and seizure, Psych: Negative for depression, anxiety, suicide ideation, homicidal ideation, and hallucinations, Allergy/Immunology: Negative for hives, rash, and allergies, Endocrine: Negative for neck swelling, polydipsia, polyuria, polyphagia, and marked weight changes, Hematologic/Lymphatic: Negative for swollen nodes, abnormal bleeding, and unusual bruising. 11:41 Skin: Positive for laceration(s). Exam: 11:41 Constitutional: This is a well developed, well nourished patient who is awake, alert, sade and in no acute distress. Eyes: Pupils equal round and reactive to light, extra-ocular motions intact. Lids and lashes normal. Conjunctiva and sclera are non-icteric and not injected. Cornea within normal limits. Periorbital areas with no swelling, redness, or edema. ENT: Nares patent. No nasal discharge, no septal abnormalities noted. Tympanic membranes are normal and external auditory canals are clear. Oropharynx with no redness, swelling, or masses, exudates, or evidence of obstruction, uvula midline. Mucous membranes moist. Neck: Trachea midline, no thyromegaly or masses palpated, and no cervical lymphadenopathy. Supple, full range of motion without nuchal rigidity, or vertebral point tenderness. No Meningismus. Chest/axilla: Normal chest wall appearance and motion. Nontender with no deformity. No lesions are appreciated. Cardiovascular: Regular rate and rhythm with a normal S1 and S2. No gallops, murmurs, or rubs. Normal PMI, no JVD. No pulse deficits. Respiratory: Lungs have equal breath sounds bilaterally, clear to auscultation and percussion. No rales, rhonchi or wheezes noted. No increased work of breathing, no retractions or nasal flaring. Abdomen/GI: Soft, non-tender, with normal bowel sounds. No distension or tympany. No guarding or rebound. No evidence of tenderness throughout. Back: No spinal tenderness. No costovertebral tenderness. Full range of motion. Skin: Warm, dry with normal turgor. Normal color with no rashes, no lesions, and no evidence of cellulitis. MS/ Extremity: Pulses equal, no cyanosis. Neurovascular intact. Full, normal range of motion. Neuro: Awake and alert, GCS 15, oriented to person, place, time, and situation. Cranial nerves II-XII grossly intact. Motor strength 5/5 in all extremities. Sensory grossly intact. Cerebellar exam normal. Normal gait. Psych: Awake, alert, with orientation to person, place and time. Behavior, mood, and affect are within normal limits. 11:41 Head/face: Noted is a laceration(s), that is deep, 3 cm(s), of the forehead. Vital Signs: 10:04 Temp 98.6(TE); jl7 10:05 BP 144 / 102; Pulse 70; Resp 20; Pulse Ox 96% ; Weight 124.74 kg; Height 4 ft. 11 in. jl7 (149.86 cm); 10:45 BP 145 / 105; Pulse 69; Resp 19; Pulse Ox 96% ; Pain 5/10; bp 11:44 BP 154 / 84; Pulse 69; Resp 16; Pulse Ox 99% ; bp 10:05 Body Mass Index 55.54 (124.74 kg, 149.86 cm) jl7 Darian Coma Score: 10:04 Eye Response: spontaneous(4). Verbal Response: oriented(5). Motor Response: obeys jl7 commands(6). Total: 15. 10:45 Eye Response: spontaneous(4). Verbal Response: oriented(5). Motor Response: obeys jl7 commands(6). Total: 15. 11:44 Eye Response: spontaneous(4). Verbal Response: oriented(5). Motor Response: obeys jl7 commands(6). Total: 15. Trauma Score (Adult): 10:04 Eye Response: spontaneous(1); Verbal Response: oriented(1); Motor Response: obeys jl7 commands(2); Systolic BP: > 89 mm Hg(4); Respiratory Rate: 10 to 29 per min(4); Darian Score: 15; Trauma Score: 12 Laceration: 11:44 Wound Repair of 3cm ( 1.2in ) subcutaneous laceration to forehead. Linear shaped.. sade Distal neuro/vascular/tendon intact. Anesthesia: Local anesthetic administered with 8 mls of 1% lidocaine w/ Epi. Wound prep: Moderate cleansing by me, Copious irrigation. Skin closed with 2 5-0 Vicryl using interrupted sutures and sterile technique. Subcutaneous tissue closed with 3 5-0 Prolene using interrupted sutures and sterile technique. Dressed with Neosporin. Patient tolerated well. MDM: 10:09 Patient medically screened. sade 11:41 Differential diagnosis: superficial laceration, vascular injury. Differential sade diagnosis: closed head injury, contusion, fracture, laceration. Data reviewed: vital signs, nurses notes, radiologic studies, CT scan. Data interpreted: quality assurance monitor final: rate is 69 beats/min, rhythm is normal sinus rhythm, Pulse oximetry:. 07/05 10:10 Order name: CT Head C Spine; Complete Time: 11:47 [facility] 07/05 10:12 Order name: Foot Right 3 View XRAY; Complete Time: 11:47 [facility] 07/05 10:10 Order name: Prolene, Sutures; Complete Time: 10:25 [facility] 07/05 10:10 Order name: Dressing - Wound; Complete Time: 12:19 [facility] 07/05 10:10 Order name: Gloves, Sterile; Complete Time: 10:25 [facility] 07/05 10:10 Order name: Setup Suture Tray; Complete Time: 10:25 [facility] 07/05 11:32 Order name: Post-op shoe; Complete Time: 11:33 [facility] Administered Medications: 10:23 Drug: Lidocaine-Epinephrine -1%: (1:100,000) 10 ml {Note: Administered by Dr. ariadne Meza.} Volume: 20 ml; Route: Infiltration; 11:25 Drug: Tetanus-Diphtheria Toxoid Adult 0.5 ml {Hospice Nurse: Cactus. Exp: jlJesse 10/21/2021. Lot #: [id number]. } Route: IM; Site: left deltoid; 11:45 Follow up: Response: No adverse reaction [facility] 12:00 Drug: KeFLEX 500 mg Route: PO; 12:18 Follow up: Response: Medication administered at discharge. [facility] 12:00 Drug: Neosporin Ointment 1 application Route: Topical; Site: forehead; ariadne 12:18 Follow up: Response: Medication administered at discharge. [facility] Disposition: 07/05/20 11:49 Discharged to Home. Impression: Fall due to bumping against object, Laceration without foreign body of other part of head - forehead, Contusion of right foot. - Condition is Stable. - Discharge Instructions: Head Injury, Adult, Facial Laceration, Facial Laceration, [id number], Fall Prevention in the Home, [id number], Head Injury, Adult, [id number]. - Prescriptions for Keflex 500 mg Oral Capsule - take 1 capsule by ORAL route every 6 hours for 7 days; 28 capsule. - Medication Reconciliation Form, Thank You Letter, Antibiotic Education, Prescription Opioid Use form. - Follow up: Private Physician; When: 2 - 3 days; Reason: Recheck today's complaints, Continuance of care, Re-evaluation by your physician. - Problem is new. - Symptoms have improved. Signatures: Dispatcher [employer] EDHeath Enrique MD MD cha Leal, Jahala RN RN jl7 Corrections: (The following items were deleted from the chart) 12:22 11:49 07/05/2020 11:49 Discharged to Home. Impression: Fall due to bumping against jl7 object; Laceration without foreign body of other part of head - forehead; Contusion of right foot. Condition is Stable. Forms are Medication Reconciliation Form, Thank You Letter, Antibiotic Education, Prescription Opioid Use. Follow up: Private Physician; When: 2 - 3 days; Reason: Recheck today's complaints, Continuance of care, Re-evaluation by your physician. Problem is new. Symptoms have improved. sade
[2020-07-05] MEDS ORDERED: CEPHALEXIN 250 MG CAP ONE (12:13)
[2020-07-05 12:37] VITALS: TEMP 98.6
[2020-07-05 12:59] VITALS: BP 154/84; O2SAT 99
== END 2020-07-05 12:22 | disposition home or self-care (01) ==
LOC: ER 10:03
PROC: 0JQ10ZZ Repair Face Subcutaneous Tissue and Fascia, Open Approach (ICD-10-PCS; principal; 2020-07-05)
DX: S01.81XA Laceration without foreign body of other part of head, initial encounter (principal); S90.31XA Contusion of right foot, initial encounter; W18.00XA Striking against unspecified object with subsequent fall, initial encounter; Y93.01 Activity, walking, marching and hiking; Y92.9 Unspecified place or not applicable; Z23 Encounter for immunization; I10 Essential (primary) hypertension; E78.5 Hyperlipidemia, unspecified; E11.9 Type 2 diabetes mellitus without complications; J44.9 Chronic obstructive pulmonary disease, unspecified; Z79.4 Long term (current) use of insulin; Z79.82 Long term (current) use of aspirin; Z88.2 Allergy status to sulfonamides
CPT/HCPCS: 70450; 72125; 90471; 99284

== ENCOUNTER 2020-07-15 15:25 | Emergency (ER) | payer BC, OTHER ==
--- OUTSIDE RECORDS SUMMARY | 2020-07-15 15:35 | XMS REPORT | Continuity of Care Document ---
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 Diabetes mellitus Resolved Problem 04/11/2019 hgb A1c [facility] (disorder) came down and doctors took her off of meds Essential hypertension Active Problem 04/11/2019 (disorder) [facility] Hyperlipidemia Active Problem 04/11/2019 [facility] (disorder) [facility] Hypothyroidism Active Problem 04/11/2019 (disorder) 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, 1 gm, [...] 04/07/19 20:00:00 CDT Cefazolin 1 gm, IV [id number] Piggyback, 2019 q8hr, infuse over 30 minutes, [...] en in 24 MG Oral Tablet hours [[place] 10/325] Acetaminophen Notes: Max No Longer 325 MG / 4gm Active 2018 Hydrocodone acetaminoph Bitartrate 7.5 en in 24 MG Oral Tablet hours [[place] 7.5/325] Naloxone 0.4 mg = 1 No Longer mL, Active 2018 Injection, IV Push, q2min PRN for other (see comment), first dose 04/07/19 14:43:00 CDT Benadryl 25 mg = 0.5 No Longer mL, 2018 Injection, IM, q6hr PRN for itching, first dose 04/07/19 14:43:00 CDT Morphine 30 mL, AIRPORT CONTROL OPERATOR Inactive Dose (mg): 2018 1, Lockout Interval (min): 5, Limit Amount (mg): 5, Limit Period (hr): 1, Continuous Rate (mg/hr): 0, Loading Dose (mg): 2, RN Adm Bolus (mg): 1, Bolus Dose Lockout (hr): 1, IV, AIRPORT CONTROL OPERATOR, start date 04/07/19 14:43:00 CDT Zofran ODT 4 mg = 1 No Longer tabs, Active 2018 Tab-Dis, Oral, q6hr PRN for nausea/vomi ting, first dose 04/07/19 14:43:00 CDT Bisacodyl 10 mg = 1 No Longer supp, Supp, Active 2018 IN, Daily PRN for constipatio n, first dose [...] Fleet Enema 133 mL, No Longer Enema, IN, Active 2018 Once PRN for constipatio n, [...] CDT, Change rate to 45ml/hr if using AIRPORT CONTROL OPERATOR or convert to Saline Lock Demerol HCl [...] Pain Ease 1 sprays, Inactive topical spray Armona, [facility], 2019 Once, first dose 04/07/19 10:00:00 [...] Once a day 2019 [facility] [place] Thyroid 1 tablet on Orally Active 90 [...] Once a day 2017 [facility] 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 Thyroid 1 tablet on Orally Active 120 MG Orally [place] an empty Once a day 2017 [facility] Lisinopril 1 tablet Orally Active 20 mg Orally garner [place] twice a day 2017 [facility]bid[facility] 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 Thyroid 1 tablet on Orally Active 90 [...] duration: 5 doses, first dose 05/17/17 11:30:00 FINISHING LAB TECHNICIAN, stop date Limited # of times Demerol HCl 12.5 mg = Inactive 05/17/ [facility] 0.5 mL, 2016 Injection, IV Push, q5min PRN for Pain Mild (1-3), order duration: 4 doses, first dose 05/17/17 11:30:00 FINISHING LAB TECHNICIAN, stop date Limited # of times promethazine 12.5 mg, IV Inactive 05/17/ [facility] IVPB Piggyback, 2016 Once PRN for nausea/vomi ting, infuse over 15 minutes, first dose 05/17/17 11:30:00 FINISHING LAB TECHNICIAN Misc Medication 600 mL, Inactive 05/17/ [facility] Soln-IV, 2016 IV, Once, first dose 05/17/17 11:26:00 FINISHING LAB TECHNICIAN, stop date 05/17/17 11:26:00 FINISHING LAB TECHNICIAN propofol 550 mg = 55 Inactive 05/17/ [facility] mL, 2016 Emulsion, IV, Once, first dose 05/17/17 11:22:00 FINISHING LAB TECHNICIAN, stop date 05/17/17 11:22:00 FINISHING LAB TECHNICIAN ondansetron 4 mg = 2 Inactive 05/17/ [facility] mL, 2016 Injection, IV, Once, first dose 05/17/17 10:48:00 FINISHING LAB TECHNICIAN, stop date 05/17/17 10:48:00 FINISHING LAB TECHNICIAN ceFAZolin 2 gm, Inactive [facility] Powder-Inj, 2016 IV, Once, first dose 05/17/17 10:42:00 FINISHING LAB TECHNICIAN, stop date 05/17/17 10:42:00 FINISHING LAB TECHNICIAN dexamethasone 4 mg = 1 Inactive 05/17/ [facility] mL, 2016 Injection, IV, Once, first dose 05/17/17 10:37:00 FINISHING LAB TECHNICIAN, stop date 05/17/17 10:37:00 FINISHING LAB TECHNICIAN fentaNYL 50 mcg = 1 Inactive 05/17/ [facility] mL, 2016 Injection, IV, Once, first dose 05/17/17 10:37:00 FINISHING LAB TECHNICIAN, stop date 05/17/17 10:37:00 FINISHING LAB TECHNICIAN fentaNYL 50 mcg = 1 Inactive 05/17/ [facility] mL, 2016 Injection, IV, Once, first dose 05/17/17 10:31:00 FINISHING LAB TECHNICIAN, stop date 05/17/17 10:31:00 FINISHING LAB TECHNICIAN midazolam 2 mg = 2 Inactive 05/17/ [facility] mL, 2016 Injection, IV, Once, first dose 05/17/17 10:25:00 FINISHING LAB TECHNICIAN, stop date 05/17/17 10:25:00 FINISHING LAB TECHNICIAN Cefazolin 2 gm, Inactive [facility] Soln-IV, IV 2016 Piggyback, Once, infuse over 30 minutes, first dose 05/17/17 10:00:00 FINISHING LAB TECHNICIAN, stop date 05/17/17 10:00:00 FINISHING LAB TECHNICIAN, Prophylaxis Pain Ease 1 sprays, Inactive [facility] topical spray Armona, TOP, 2016 Once, first dose 05/17/17 10:00:00 FINISHING LAB TECHNICIAN, stop date 05/17/17 10:00:00 FINISHING LAB TECHNICIAN, Apply topically for 4 - 10 seconds from a distance of 3 - 7 inches from the procedure site LR 1,000 mL 1,000 mL, Inactive [facility] IV, 100 2016 mL/hr, start date 05/17/17 9:13:00 FINISHING LAB TECHNICIAN, For Adults Zostavax as directed Subcutane Active [...] E daily 2016 [facility] [place] as directed SQ Active 31G X 8 MM SQ [place] 08/16/ NE 5/16" twice a day 2016 [facility]bid[facility] [place] as directed SQ Active 31G X 8 [...] times a 2014 [facility] [place] 1 tablet as Orally Active 5-325 MG [place] 10/19/ NE needed Orally three 2014 Primary times a day Care (tid) [facility] [place] 1 tablet as Orally Active 5-325 MG [...] mL, 2013 Surgical Injection, Hospital IV Push, [place] q5min PRN for Pain Mild (1-3), order duration: 4 doses, first dose 09/25/13 9:18:00 CDT, stop date Limited # of times morphine 2 mg = 0.2 Inactive [facility] mL, 2013 Surgical Injection, Hospital IV Push, [place] q5min PRN for pain severe (7-10), order duration: 5 doses, first dose 09/25/13 9:18:00 CDT, stop date Limited # of times promethazine 12.5 mg, IV Inactive [facility] IVPB Piggyback, 2013 Surgical Once PRN [facility] nausea/vomi ting, infuse over 15 minutes, first dose 09/25/13 9:18:00 CDT Misc Medication 250 mL, Inactive Deb Soln-IV, 2013 Surgical IV, Once, Hospital first dose [place] 09/25/13 8:48:00 CDT, stop date 09/25/13 8:48:00 CDT propofol 50 mg = 5 Inactive Deb mL, 2013 Surgical Emulsion, Hospital IV, Once, [place] first dose 09/25/13 8:41:00 CDT, stop date 09/25/13 8:41:00 CDT propofol 50 mg = 5 Inactive Deb mL, 2013 Surgical Emulsion, Hospital IV, Once, [place] first dose 09/25/13 8:37:00 CDT, stop date 09/25/13 8:37:00 CDT propofol 100 mg = 10 Inactive Deb mL, 2013 Surgical Emulsion, Hospital IV, Once, [place] first dose 09/25/13 8:32:00 CDT, stop date 09/25/13 8:32:00 CDT propofol 50 mg = 5 Inactive Deb mL, 2013 Surgical Emulsion, Hospital IV, Once, [place] first dose 09/25/13 8:28:00 CDT, stop date 09/25/13 8:28:00 CDT propofol 100 mg = 10 Inactive Deb mL, 2013 Surgical Emulsion, Hospital IV, Once, [place] first dose 09/25/13 8:23:00 CDT, stop date 09/25/13 8:23:00 CDT propofol 100 mg = 10 Inactive Deb mL, 2013 Surgical Emulsion, Hospital IV, Once, [place] first dose 09/25/13 8:17:00 CDT, stop date 09/25/13 8:17:00 CDT lidocaine 3 mL, Inactive Deb Injection, 2013 Surgical IV, Once, [facility] first dose [place] 09/25/13 8:15:00 CDT, stop date 09/25/13 8:15:00 CDT fentanyl 100 mcg = 2 Inactive Deb mL, 2013 Surgical Injection, Hospital IV, Once, [place] first dose 09/25/13 8:14:00 CDT, stop date 09/25/13 8:14:00 CDT midazolam 2 mg = 2 Inactive Deb mL, 2013 Surgical Implant, Hospital IV, Once, [place] first dose 09/25/13 8:14:00 CDT, stop date 09/25/13 8:14:00 CDT cefazolin 1 gm, Inactive [place] Soln-IV, IV 2013 Surgical Piggyback, Hospital Once, [place] infuse over 30 minutes, first dose 09/25/13 7:00:00 CDT, stop date 09/25/13 7:00:00 CDT ethyl chloride 1 sprays, Inactive [place] topical spray Armona, TOP, 2013 Surgic al Once, first Hospital dose [place] 09/25/13 7:00:00 CDT, stop date 09/25/13 7:00:00 CDT Sodium Chloride 250 mL, IV, Inactive [place] 0.9% 250 mL 25 mL/hr, 2013 Surgical start date [facility] 09/25/13 [place] 6:54:00 CDT Naprosyn 1 tablet as by [...] Surgica l Oral, BID, Hospital 0 Refill(s) [place] clonazepam 0.5 0.25 mg = No Longer 09/19/ [facility] mg oral tablet 0.5 tabs, Active 2013 Oral, BID, 0 Refill(s) clonazepam 0.5 0.25 mg = No Longer 09/19/ [facility] mg oral tablet 0.5 tabs, Active 2013 Oral, BID, 0 Refill(s) Seroquel 50 mg 50 mg = 1 Active oral tablet tabs, Oral, 2013 Surgical Daily, 0 Hospital Refill(s) [place] Seroquel 50 mg 50 mg = 1 No Longer 09/19/ [facility] oral tablet tabs, Oral, Active 2013 Daily, 0 Refill(s) quetiapine 50 50 mg = 1 No Longer 09/19/ [facility] MG Oral Tablet tabs, Oral, Active 2013 [Seroquel] Daily, 0 Refill(s) Milk Thistle 2, Oral, Active Daily, 0 2013 Surgical Refill(s) [facility] Flintstones 1 tabs, Active with Iron oral Chewed, 2013 Surgical tablet, Daily, 0 Hospital chewable Refill(s) [place] Milk Thistle 2, Oral, No Longer 09/19/ [facility] Daily, 0 Active 2013 Refill(s) Flintstones 1 tabs, No Longer 09/19/ [facility] with Iron oral Chewed, Active 2013 tablet, Daily, 0 chewable Refill(s) lisinopril 40 40 mg = 1 Active mg oral tablet tabs, Oral, 2013 Surgi pooja Daily, 0 Hospital Refill(s) [place] Vitamin D 1 tabs, No Longer chewable 5000 Oral, Active 2013 Surgical units Daily, # 30 Hospital tabs, 0 [place], Refill(s) [facility] lisinopril 40 40 mg = 1 No Longer 09/19/ [facility] mg oral tablet tabs, Oral, Active 2013 Daily, 0 Refill(s) Victoza 18 mg/3 1.8 mg, Active [facility] mL subcutaneous Subcutaneou 2013 Surg ical solution s, Daily, 0 Hospital Refill(s) [place] lovastatin 40 40 mg = 1 Active 09/19/ [facility] mg oral tablet tabs, Oral, 2013 Surgi pooja Daily, 0 Hospital Refill(s) [place] omeprazole 20 20 mg = 1 Active 09/19/ mg oral delayed tabs, Oral, 2013 Surg ical release tablet Daily, 0 Hospital Refill(s) [place] 3 ML 1.8 mg, No Longer 09/19/ [...] Oral, 2013 Surgical Daily, 0 Hospital Refill(s) [place] Levemir FlexPen 30 units, Active Subcutaneou 2013 Surgical s, BID, 0 Hospital Refill(s) [place] Sanctura 20 mg 20 mg = 1 Active oral tablet tabs, Oral, 2013 Surgical BID, 0 Hospital Refill(s) [place] vilazodone 40 mg = 1 No Longer [...] ER with liquid Once a day [facility] Allergy Relief 1 tablet as [...] [place] Triple Strength [facility] [place] 3 1 capsule Orally Active 1000 MG [...] Hydrobromide ER with liquid Once a day [facility] Niacin 1 tablet Orally [...] characteristi cs have been verified by the
[facility] within the [facility]. The
[facility] is authorized under the Clinical Laboratory
Improvement Amendment of 1988 (CLIA-88) to perform high complexity testing. LABORATORY Alk Phos 82 39 - 136 03/26 Result Comment: The pediatric reference ranges for this test represent a CLSI-based
transferenc e of the CALIPER database of pediatric reference intervals to the
Simparel [place] analyzer (Clinical Biochemistry 46 (2012): 8488-4395). [facility] has not internally validated these [...] values reflect the clinical guidelines
of the [place] [employer]. LABORATORY BUN 25 7 - [...] values reflect the clinical guidelines
of the [place] [employer]. LABORATORY Chloride 104 95 - [...] Oral (F) 99.3 F 11/21/2017 [facility] Heart Rate 81 11/21/2017 NE [...] Care [facility]oc Diastolic (mm Hg) 81 09/25/2013 [facility] od Respitory Rate 9 09/25/2013 [facility] od Systolic (mm Hg) 119 09/25/2013 [facility] od Heart Rate 72 09/25/2013 [facility] od Diastolic (mm Hg) 87 09/25/2013 [facility] od Respitory Rate 11 09/25/2013 [facility] od Systolic (mm Hg) 129 09/25/2013 [facility] od Heart Rate 71 09/25/2013 [facility] od Respitory Rate 13 09/25/2013 [facility] od Diastolic (mm Hg) 82 09/25/2013 [facility] od Systolic (mm Hg) 123 09/25/2013 [facility] od Heart Rate 74 09/25/2013 [facility] od Heart Rate 77 09/25/2013 [facility] od Temperature Oral (F) 36.9 Marjorie 09/25/2013 [facility] od Temperature Oral (F) 37.0 Marjorie 09/19/2013 [facility] od Weight 122.8 09/19/2013 [facility] od Body Mass Index 46.22 09/19/2013 [facility] od Height 163 cm 09/19/2013 [facility] od Weight 267.2 09/15/2013 [facility] [...] For Provider Date Date Visit [place] Unknown [id number] 09/24 09/24 NE Primary [id number]-[id number] /2013 [id number] [facility] [id number] [facility] , [place] [facility] Unknown [id number] 09/24 09/24 NE Primary [id number] /2013 [facility] 72a-[id number] [facility] [id number] [facility] , [place] [facility] Unknown [id number] 09/24 09/24 NE Primary [id number] /2013 [facility] [id number] [facility] [id number] [facility]oc , [facility] Unknown [id number] 09/24 09/24 NE Primary 7bb-[id number] /2013 [facility] 57f-[id number] [facility] [id number] [facility] , [place] [facility] Unknown [id number] 09/24 09/24 NE Primary 95d-[id number]-a /2013 [facility] [id number] [facility] [id number] [facility] , [place] [facility] Unknown [id number] 09/24 09/24 NE Primary [id number] /2013 [facility] 5dd-329e37 [facility] [id number] [facility] , [place] [facility] Unknown [id number] 09/24 09/24 NE Primary ad9-45a4-b /2013 [facility] 9fd-b11d2f [facility] [id number] [facility] , [facility] Unknown [id number] 09/24 09/24 NE Primary [id number] /2013 [facility] [id number]-[id number] [facility] [id number] [facility]oc , [facility] Unknown [id number] 09/24 09/24 NE Primary [id number]-b /2013 [facility] 90f-783eae [facility] [id number] [facility] , [place] [facility] Unknown [id number] 09/24 09/24 NE Primary [id number]-[id number] /2013 [facility] [id number] [facility] [id number] [facility] , [place] [facility] Unknown [id number] 09/24 09/24 NE Primary 9eb-[id number]-b /2013 [facility] [id number] [facility] [id number] [facility] , [place] [facility] Unknown [id number] 09/24 09/24 NE Primary [id number]-[id number] /2013 [facility] 90e-322fd3 [facility] [id number] [facility] , [facility] Unknown [id number] 09/24 09/24 NE Primary [id number] /2013 [facility] [id number] [facility] [id number] [facility] , [facility] Unknown [id number] 09/24 09/24 NE Primary 29b-4243-b /2013 [facility] 3p7-60o692 [facility] [id number] [facility]oc , [facility] Unknown [id number] 09/24 09/24 NE Primary [id number]-b /2013 [facility] [id number] [facility] [id number] [facility] , [facility] Unknown [id number] 09/24 09/24 NE Primary 65c-4966-8 /2013 [facility] [id number] [facility] [id number] [facility] , [facility] Unknown [id number] 09/24 09/24 NE Primary 52f-4a58-b /2013 [facility] [id number] [facility] [id number] [facility] , [place] [facility] Unknown [id number] 09/24 09/24 NE Primary 92b-43dd-8 /2013 [facility] fc0-461d76 [facility] [id number] [facility] , [facility] Unknown [id number] 09/24 09/24 NE Primary [id number] /2013 [facility] [id number] [facility] [id number] [facility] , [facility] Unknown [id number] 09/24 09/24 NE Primary [id number] /2013 [facility] 042-c4f88d [facility] [id number] [facility]oc , [facility] Unknown [id number] 09/24 09/24 NE Primary [id number]-d /2013 [facility] [id number] [facility] [id number] [facility] , [facility] Unknown [id number] 09/24 09/24 NE Primary ebf-4739-b /2013 [facility] [id number]-[id number] [facility] [id number] [facility] , [facility] Unknown [id number] 09/24 09/24 NE Primary [id number]-b /2013 [facility] p30-[id number] [facility] [id number] [facility] , [facility] Unknown [id number] 09/24 09/24 NE Primary j59-7373-0 /2013 [facility] [id number] [facility] [id number] [facility] , [facility] Unknown [id number] 09/24 09/24 NE Primary 095-4285-a /2013 [facility] c18-0508y1 [facility] [id number] [facility] , [facility] Unknown [id number] 09/24 09/24 NE Primary 8v3-6h65-9 /2013 [facility] [id number] [facility] [id number] [facility] , [facility] Unknown [id number] 09/24 09/24 NE Primary 3fa-46b3-b /2013 [facility] [id number] [facility] [id number] [facility] , [facility] Unknown [id number] 09/24 09/24 NE Primary [id number]-b /2013 [facility] [id number] [facility] [id number] [facility]oc , [facility] Unknown [id number] 09/24 09/24 NE Primary [id number]-h /2013 [facility] [id number] [facility] [id number] [facility] , [facility] Unknown [id number] 09/24 09/24 NE Primary 61e-4ecd-a /2013 [facility] 1db-c21a94 [facility] [id number] [facility] , [facility] Unknown [id number] 09/24 09/24 NE Primary cef-491c-b /2013 [facility] 668-[id number] [facility] [id number] [facility] , [facility] Unknown [id number] 09/24 09/24 NE Primary [id number] [facility] [id number] [facility] [id number] [facility] , [facility] Unknown [id number] 09/24 09/24 NE Primary 3fb-[id number] /2013 [facility] 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 [facility] [id number] [facility] , [facility] Unknown [id number] 09/24 09/24 NE Primary 8t9-5ivq-8 /2013 [facility] dc0-fda08c [facility] [id number] [facility] , [facility] Unknown [id number] 09/24 09/24 NE Primary 3e6-7mnv-i /2013 [facility] [id number] [facility] [id number] [facility] , [facility] Unknown [id number] 09/24 09/24 NE Primary x00-28mx-6 /2013 [facility] [id number] [facility] [id number] [facility] , [place] [facility] Unknown [id number] 09/24 09/24 NE Primary [id number]-b /2013 [facility] [id number] [facility] [id number] [facility]oc , [place] [facility] Unknown [id number] 09/24 09/24 NE Primary [id number] /2013 [facility] [id number] [facility] [id number] [place] , [place] [facility] Unknown [id number] 09/24 09/24 NE Primary [id number]-[id number] /2013 [facility] [id number] [facility] [id number] [place] , [place] [facility] Unknown [id number] 09/24 09/24 NE Primary 76d-4efd- [facility] [id number] [facility] [id number] [place] , [place] [facility] Outpatient [id number] [facility] 09/25 09/25 Discharge [facility] /2013 d [facility] Followup 1 [id number] 10/01 10/01 NE Primary week 7v3-9gjc-m /2013 [facility] 127-[id number] [facility] [id number] , [place] [facility] Followup 1 [id number] 10/01 10/01 NE Primary week 1p5-3b5s-j /2013 [facility] [id number]-7dc0c1 [facility] [id number] , [facility] Followup 1 [id number] 10/01 10/01 NE Primary week 55e-4ca3-b /2013 [facility] [id number]-s68107 [facility] [id number] [place] , [place] [facility] Followup 1 [id number] 10/01 10/01 NE Primary week 7a5-3007-g /2013 [facility] [id number]-gwq6l7 [facility] 06deef , [facility] Followup 1 [id number] 10/01 10/01 NE Primary week 657-47b6-b /2013 [facility] de2-227114 [facility] [id number] , [facility] Followup 1 [id number] 10/01 10/01 NE Primary week 63c-4c7a-8 /2013 [facility] h77-[id number] [facility] [id number] , [facility] Followup 1 [id number] 10/01 10/01 NE Primary week 8t0-0m66-0 /2013 [facility] bbf-22z692 [facility] 28922s , [facility] Followup 1 [id number] 10/01 10/01 NE Primary week 26f-47ab-a /2013 [facility] [id number]-9561c1 [facility] 966cda , [facility] Followup 1 [id number] 10/01 10/01 NE Primary week aa2-43f6-b /2013 [facility] 610-[id number] [facility] da11aa , [facility] Followup 1 [id number] 10/01 10/01 NE Primary week [id number] /2013 [facility] 47b-6868f0 [facility] [id number] , [facility] Followup 1 [id number] 10/01 10/01 NE Primary week ae1-42e9-a /2013 [facility] [id number] [facility] [id number] , [facility] Followup 1 [id number] 10/01 10/01 NE Primary week [id number]-a /2013 [facility] [id number]-e6dbd4 [facility] 4deaa5 , [place] [facility] Followup 1 [id number] 10/01 10/01 NE Primary week 26a-40c5-b /2013 [facility] [id number] [facility] cac1c0 , [place] [facility] Followup 1 [id number] 10/01 10/01 NE Primary week 33b-4c94-a /2013 [facility] [id number] [facility] [id number] , [place] [facility] Followup 1 [id number] 10/01 10/01 NE Primary week dde-49f8-b /2013 [facility] 64c-f18b8f [facility] [id number] , [facility] Followup 1 [id number] 10/01 10/01 NE Primary week x98-13q8-m /2013 [facility] 66e-34505x [facility] [id number] [facility] , [facility] Followup 1 [id number] 10/01 10/01 NE Primary week 48c-4dfa-8 /2013 [facility] q6e-46ra9n [facility] 2dbcac , [facility] Followup 1 [id number] 10/01 10/01 NE Primary week 53f-4ae1-9 [facility] 8dc-wz075m [facility] [id number] [facility] , [facility] Followup 1 [id number] 10/01 10/01 NE Primary week 8fd-47b7-8 [facility] t03-u5805g [facility] [id number] [facility] , [facility] Followup 1 [id number] 10/01 10/01 NE Primary week fcc-4f2f-b /2013 [facility] j52-h69q9k [facility] [id number] [facility] , [facility] Followup 1 [id number] 10/01 10/01 NE Primary week 92b-40d6-9 [facility] i1d-lh472b [facility] [id number] [facility] , [place] [facility] Followup 1 [id number] 10/01 10/01 NE Primary week 515-4810-8 [facility] 536-310fce [facility] ce99d8 [facility] , [facility] Followup 1 [id number] 10/01 10/01 NE Primary week 8d7-4n65-c /2013 [facility] 4z7-73d6dd [facility] [id number] [facility] , [facility] Followup 1 [id number] 10/01 10/01 NE Primary week 857-4347-b /2013 [facility] 4ca-4669a0 [facility] [id number] [facility] , [facility] Followup 1 [id number] 10/01 10/01 NE Primary week 571-4f40-8 [facility] cd7-0d8f3e [facility] [id number] [facility]oc , [facility] Followup 1 [id number] 10/01 10/01 NE Primary week 4u1-05f5-o /2013 [facility] 7dc-73347s [facility] [id number] [facility] , [facility] Followup 1 [id number] 10/01 10/01 NE Primary week 6dc-4258-8 /2013 [facility] 621-2z015s [facility] [id number] [facility] , [facility] Followup 1 [id number] 10/01 10/01 NE Primary week 921-44c2-b /2013 [facility] 86b-991dd9 [facility] [id number] [facility] , [facility] Followup 1 [id number] 10/01 10/01 NE Primary week 1f7-68c1-6 /2013 [facility] [id number] [facility] [id number] , [facility] Followup 1 [id number] 10/01 10/01 NE Primary week [id number]-9 [facility] [id number]-ehth61 [facility] [id number] [facility] , [facility] Followup 1 [id number] 10/01 10/01 NE Primary week ba3-4d56-a /2013 [facility] [id number] [facility] [id number] [facility] , [facility] Followup 1 [id number] 10/01 10/01 NE Primary week z31-28o0-0 /2013 [facility] 44d-[id number] [facility] [id number] [facility] , [facility] Followup 1 [id number] 10/01 10/01 NE Primary week 239-4e49-a /2013 [facility] [id number] [facility] [id number] [facility] , [facility] Followup 1 [id number] 10/01 10/01 NE Primary week 201-44f3-a /2013 [facility] a2b-s15l7o [facility] [id number] [place] , [place] [facility] Followup 1 [id number] 10/01 10/01 NE Primary week 1ac-42a0-b /2013 [facility] [id number] [facility] [id number] [facility] , [facility] Followup 1 [id number] 10/01 10/01 NE Primary week 7p2-7wk3-p /2013 [facility] 40e-239eac [facility] [id number] Assoc , [facility] [id number] 10/01 10/01 [facility] Primary week cb8-493a-9 [id number] mr0e7pwh-5 10/01 10/01 NE Primary week bbb-429f-8 [facility] k[facility]q-50qcuy [facility] cb19ad [facility] 48xpsh61-q 10/01 10/01 NE Primary week 3fc-4654-a /2013 [facility] 21e-8s4832 [facility] 3a6f3a [facility] Follow-Up 2 [id number] 10/15 10/15 NE Primary weeks o72-8840-i /2013 [facility] 3v6-y879l1 [facility] [id number] [facility] Follow-Up 2 5qpf38xl-3 10/15 10/15 NE Primary weeks m62-993t-x /2013 [facility] 2d6-436p6y [facility] [id number] [facility] Follow-Up 2 [id number] 10/15 10/15 NE Primary weeks v80-2xbh-8 [facility] 811-a60fb6 [facility] 7caa5a [facility] Follow-Up 2 [id number] 10/15 10/15 NE Primary weeks y37-41s5-o /2013 [facility] 6e4-58dhin [facility] cdb5c3 [facility] Follow-Up 2 8r87w9w0-h 10/15 10/15 NE Primary weeks 496-4b1d-9 [facility] a2y-57ok34 [facility] 7kx772 [facility] Follow-Up 2 [id number] 10/15 10/15 NE Primary weeks n5d-84hk-2 [facility] s8k-354g61 [facility] b7ddb5 [facility] Follow-Up 2 [id number] 10/15 10/15 NE Primary weeks a1i-0hb0-w /2013 [facility] [id number] [facility] fa7d30 [facility] 2 0i54m5b0-s 10/15 10/15 NE Primary weeks 495-4ce8-a /2013 [facility] ccc-eb26aa [facility] [id number] [facility] 2 [id number] 10/15 10/15 NE Primary weeks 49e-4281-9 /2013 [facility] 80d-7188f8 [facility] [id number] [facility] 2 f7c25r9u-z 10/15 10/15 NE Primary weeks c95-92w6-1 /2013 [facility] 63a-64ff9d [facility] 2v079i [facility] Follow-Up 2 k9wzt623-h 10/15 10/15 NE Primary weeks 67e-420b-8 [facility] [phone] [facility] ebd07c [facility] Follow-Up 2 [id number] 10/15 10/15 NE Primary weeks cb8-41b3-a /2013 [facility] 574-rv7325 [facility] [id number] [facility] Follow-Up 2 [id number] 10/15 10/15 NE Primary weeks 711-4085-8 /2013 [facility] 89b-54c8a6 [facility] f3cc04 [facility] 2 8967m1o0-1 10/15 10/15 NE Primary weeks n2f-4650-n /2013 [facility] 8cc-fd9c58 [facility] ae2a65 [facility] 2 [id number] 10/15 10/15 NE Primary weeks 95d-484c-b /2013 [facility] j83-u8af3x [facility] d9ecee [facility] 2 [id number] 10/15 10/15 NE Primary weeks x3i-4076-8 /2013 [facility] 79b-i0037i [facility] cab93f [facility] 2 [id number] 10/15 10/15 NE Primary weeks y76-9x06-3 /2013 [facility] [phone] [facility] [id number] [facility] 2 [id number]-4 10/15 10/15 NE Primary weeks bc8-4986-9 /2013 [facility] m73-9xtp84 [facility] b814e4 [facility] 2 i9qrr738-5 10/15 10/15 NE Primary weeks ffb-44a1-a /2013 [facility] k3q-24j00z [facility] 8d83b0 [facility] Follow-Up 2 13ra018q-l 10/15 10/15 NE Primary weeks 264-41e9-b /2013 [facility] 9ef-95fcdf [facility] [id number] [facility] Follow-Up 2 [id number]-3 10/15 10/15 NE Primary weeks 747-428e-b /2013 [facility] dd4-207544 [facility] e9a4d3 [facility] , [facility] Follow-Up 2 [id number] 10/15 10/15 NE Primary weeks 3ea-4575-a /2013 [facility] 8l5-71c3z2 [facility] 3cf7fe [facility] Follow-Up 2 [id number] 10/15 10/15 NE Primary weeks 74e-4876-a /2013 [facility] 66a-829819 [facility] [id number] [facility] Follow-Up 2 dfnf734j-u 10/15 10/15 NE Primary weeks 33a-4004-b /2013 [facility] ff4-05x402 [facility] [id number] [facility] 2 83w3g8xa-9 10/15 10/15 NE Primary weeks 8f6-15oz-b /2013 [facility] u2t-58ymfz [facility] c10b93 [facility] 2 i737o8fa-3 10/15 10/15 NE Primary weeks 6ee-4902-a /2013 [facility] 646-2c901h [facility] b64c99 [facility] 2 [id number]-q 10/15 10/15 NE Primary weeks 277-4dd0-9 [facility] h67-q8td3v [facility] 1bcf97 [facility] 2 w3f0nj17-n 10/15 10/15 NE Primary weeks 8u7-5696-7 [facility] [phone] [facility] c056be [facility] 2 06p6rrz8-u 10/15 10/15 NE Primary weeks s0m-76n9-7 [facility] 6n7-657e72 [facility] [id number] [facility] 2 [id number] 10/15 10/15 NE Primary weeks w3n-9531-l /2013 [facility] 7ad-14h478 [facility] 89f1db [facility] 2 8us637vo-5 10/15 10/15 NE Primary weeks 8dd-42f2-a [facility] 6ee-bd1b16 [facility] ab76f7 [facility] 2 go09c697-p 10/15 10/15 NE Primary weeks 9o1-8332-k /2013 [facility] eea-t69246 [facility] e091fa [facility] 2 [id number]-j 10/15 10/15 NE Primary weeks 8da-403a-a /2013 [facility] 2da-864165 [facility] 7ac2cd [facility] 2 06c807d6-l 10/15 10/15 NE Primary weeks u83-0du8-8 [facility] 185-a0b5a6 [facility] 40b7c1 [facility] 2 [id number] 10/15 10/15 NE Primary weeks ca1-4c59-b /2013 [facility] 580-a2aabb [facility] e20a53 [facility] 2 6826aafd-d 10/15 10/15 NE Primary weeks 78b-486a-b /2013 [facility] w22-5pe49v [facility] 96e1fa [facility] Follow-Up 2 [id number]-h 10/15 10/15 NE Primary weeks 3bc-4b7e-b /2013 [facility] fb8-a3a2bc [facility] [id number] [facility] Follow-Up 2 o5915cf5-m 10/15 10/15 NE Primary weeks q31-0b91-n /2013 [facility] a62-9q9436 [facility] f49a8f [facility] Follow-Up 2 58583tvh-5 10/15 10/15 NE Primary weeks 2h1-011d-g /2013 [facility] 9r0-741828 [facility] c0a2f8 [facility] sinus 2m1l4dk2-3 11/28 11/28 [facility] Primary inf 800-4566- [facility] 1z5-0x00b2 [facility] 3fbc42 [facility] sinus 70707pyj-6 11/28 11/28 [facility] Primary inf v4q-9603-7 [facility] 88d-cft523 [facility] [id number] [facility] 76f6g75i-p 11/28 11/28 [facility] Primary inf 060-40a3-8 /2013 [facility] 4p2-0gjj41 [facility] [id number] [facility] 2g4358td-1 11/28 11/28 [facility] Primary inf 726-4aff-a /2013 [facility] [phone] [facility] [id number] [facility] sinus [id number] 11/28 11/28 [facility] Primary inf 6k2-964l-i /2013 [facility] 4k3-hj5437 [facility] [id number] [facility] 5c752vrz-t 11/28 11/28 [facility] Primary inf 584-4fae- [facility] 868-znb560 [facility] 97aac1 [facility] sinus 12420763-n 11/28 11/28 [facility] Primary inf x11-379n-0 [facility] eb8-d49b38 [facility] 6v311x [facility] sinus 339831sc-y 11/28 11/28 [facility] Primary inf 78a-455d-8 /2013 [facility] 327-507a34 [facility] [id number] [facility] r76sb1o8-1 11/28 11/28 NE Primary inf p0f-747j-1 /2013 [facility] 085-19l224 [facility] cf1b2b [facility] 0aoe60d0-1 11/28 11/28 [facility] Primary inf f41-8jv0-m /2013 [facility] 650-1428dc [facility] [id number] [facility] sinus 01353405-7 11/28 11/28 [facility] Primary inf w59-001v-f /2013 [facility] 5ed-6t8243 [facility] [id number] [facility] sinus njw1zwl0-m 11/28 11/28 [facility] inf 982-4bbb-9 /2013 [facility] 237-9ddf61 [facility] 7bac63 [facility] e0r87750-a 11/28 11/28 [facility] Primary inf 5e2-4575-9 /2013 [facility] 8m2-z7779z [facility] qc1991 [facility] sinus 9619371f-1 11/28 11/28 [facility] Primary inf 0g8-2p30-8 [facility] 1db-dbcb7a [facility] [id number] [facility] 51i3u015-5 11/28 11/28 [facility] Primary inf r15-8339-a /2013 [facility] 950-933af0 [facility] [id number] [facility] sinus 7827q6d3-0 11/28 11/28 [facility] Primary inf 2w0-81s9-c /2013 [facility] 420-4e6fb1 [facility] 74eeb7 [facility] 4q9b2bbc-i 11/28 11/28 [facility] Primary inf f68-8261-3 /2013 [facility] fdb-25252f [facility] [id number] [facility] sinus 48c40zgg-d 11/28 11/28 NE Primary inf 802-4ffd-8 /2013 [facility] 6eb-32f8d7 [facility] 836f06 [facility] 3fl17i64-9 11/28 11/28 NE Primary inf 146-49df-8 /2013 [facility] 342-17c82c [facility] [id number] [facility] sinus 273g7tx8-0 11/28 11/28 NE Primary inf 54a-4e8a-b /2013 [facility] 3ef-5j1602 [facility] f4a2bc [facility] 4m8hv383-4 11/28 11/28 NE Primary inf 153-4f32-b /2013 [facility] s49-380wi7 [facility] 25cc62 [facility] sinus 53372370-t 11/28 11/28 [facility] Primary inf 5f0-123a-2 /2013 [facility] 45e-4d6465 [facility] 10m726 [facility] sinus 8nhe3w23-y 11/28 11/28 NE Primary inf 2m8-1nhb-f /2013 [facility] 172-2z1254 [facility] 4cf6fd [facility] sinus x26q5h71-1 11/28 11/28 NE Primary inf ea5-40ad-a /2013 [facility] 9d1-20r048 [facility] f33d94 [facility] sinus 80mf892t-f 11/28 11/28 NE Primary inf x38-23vu-k /2013 [facility] u63-771k5i [facility] [id number] [facility] sinus 01389le1-d 11/28 11/28 NE Primary inf 8ab-40ce-b /2013 [facility] 2a6-541db2 [facility] 8ed42c [facility] sinus 402xgl2i-1 11/28 11/28 [facility] Primary inf 371-4abf-8 /2013 [facility] a2w-x5n841 [facility] [id number] [facility] m9401fm8-d 11/28 11/28 NE Primary inf 3a7-2k4e-4 /2013 [facility] 7d2-718p81 [facility] 2f1e4e [facility] sinus 051526wv-z 11/28 11/28 [facility] Primary inf 033-4d5f-a /2013 [facility] 904-8q5762 [facility] [id number] [facility] sinus 11n70x21-4 11/28 11/28 [facility] Primary inf j19-380w-0 [facility] 9m4-8x1yoa [facility] 26bc89 [facility] fl749z5x-3 11/28 11/28 [facility] Primary inf ae2-4eb9- [facility] 027-26dd70 [facility] de71d2 [facility] 2b2m3xsv-u 11/28 11/28 [facility] Primary inf 105-4877-a /2013 [facility] v4p-16t05j [facility] 763f1d [facility] e4i1t755-v 11/28 11/28 NE Primary inf dfa-4373-9 /2013 [facility] 023-398d4c [facility] 7c2e6a [facility] , [facility] 6011ukr9-6 11/28 11/28 [facility] Primary inf w6k-668j-3 [facility] 2cf-a5a4b1 [facility] adcff3 [facility] sinus 17026u6s-1 11/28 11/28 NE Primary inf 782-4b11-a /2013 [facility] cc7-z2788r [facility] 473ca5 [facility] sinus d8gu1253-s 11/28 11/28 NE Primary inf aa4-492d-8 [facility] 1n0-0472b2 [facility] [id number] [facility] sinus 8fb95s57-7 11/28 11/28 NE Primary inf belle-4e86-9 /2013 [facility] a23-9f72t9 [facility] 6ccbc7 [facility] req [id number] 12/01 12/01 NE Primary PA so db8-4f39- [facility] changed to v2d-82902w [facility] [id number] [facility] , [facility] Nasonex req [id number] 12/01 12/01 NE Primary PA so 91e-4b4b- [facility] changed to 647-4c1a44 [facility] 96f580 [facility] , [facility] Nasonex req [id number] 12/01 12/01 NE Primary PA so 7ca-4805- [facility] changed to 8q9-9w9306 [facility] e4fc6c [facility] , [facility] Nasonex req [id number] 12/01 12/01 NE Primary PA so 573-4398- [facility] changed to 6k8-01d544 [facility] 0a7e4d [facility] , [facility] Nasonex req [id number] 12/01 12/01 NE Primary PA so p53-57cc-y /2013 [facility] changed to 60b-0ef36e [facility] 6bcbe8 [facility] , [facility] Nasonex req [id number] 12/01 12/01 NE Primary PA so 3ca-44dd- [facility] changed to k5d-0339a9 [facility] 330b80 [facility] , [facility] Nasonex req [id number] 12/01 12/01 NE Primary PA so 6n6-20t4-1 [facility] changed to g17-8t2405 [facility] [id number] [facility] req [id number] 12/01 12/01 NE Primary PA so l0s-9m87-0 [facility] changed to 79c-d80cd3 [facility] 1e190u [facility] , [facility] Nasonex req [id number] 12/01 12/01 NE Primary PA so o50-65i8-3 [facility] changed to k28-4bkh97 [facility] 068da4 [facility] , [facility] req [id number] 12/01 12/01 NE Primary PA so 4y2-12r8-6 [facility] changed to 45b-d53dec [facility] c28bf0 [facility] , [facility] req [id number] 12/01 12/01 NE Primary PA so 009-4cfc-b /2013 [facility] changed to 88e-47b59d [facility] 28bd0b [facility] req [id number] 12/01 12/01 NE Primary PA so c28-9875-f /2013 [facility] changed to 6dc-e9bc3c [facility] [id number] [facility] , [facility] req [id number] 12/01 12/01 NE Primary PA so 2bd-459d-a [facility] changed to 4k2-82lm05 [facility] [id number] [facility] , [facility] req [id number] 12/01 12/01 NE Primary PA so 212-4946- [facility] changed to 39f-8c16fe [facility] 510cce [facility] , [facility] req [id number] 12/01 12/01 NE Primary PA so l6p-8jc0-0 [facility] changed to s88-165h44 [facility] [id number] [facility] , [facility] req [id number] 12/01 12/01 NE Primary PA so i10-8523-1 [facility] changed to fb0-402c1a [facility] fcde7d [facility] req [id number] 12/01 12/01 NE Primary PA so baf-45b0-b /2013 [facility] changed to k3j-852i65 [facility] [id number] [facility] req [id number] 12/01 12/01 NE Primary PA so 830-4203- [facility] changed to 2ab-afad13 [facility] b5db9c [facility] , [facility] Nasonex req [id number] 12/01 12/01 NE Primary PA so 02d-4a10-a /2013 [facility] changed to 94d-bda8d0 [facility] ff25a0 [facility] , [facility] Nasonex req [id number] 12/01 12/01 NE Primary PA so 63b-4844- [facility] changed to t0o-9x6071 [facility] [id number] [facility] , [facility] Nasonex req [id number] 12/01 12/01 NE Primary PA so 7fb-4ca9- [facility] changed to 221-95de7a [facility] 34edc6 [facility] , [facility] Nasonex req [id number] 12/01 12/01 NE Primary PA so 1fb-4063-a [facility] changed to k44-785qac [facility] [id number] [facility] , [facility] Nasonex req [id number] 12/01 12/01 NE Primary PA so 6fa-4c0d- [facility] changed to 05b-c8103y [facility] 796af0 [facility] , [facility] Nasonex req [id number] 12/01 12/01 NE Primary PA so 30c-45db-9 [facility] changed to bef-l7408c [facility] a239d3 [facility] , [facility] req [id number] 12/01 12/01 NE Primary PA so def-40b0-a [facility] changed to 150-8mf165 [facility] [id number] [facility] , [facility] Nasonex req [id number] 12/01 12/01 NE Primary PA so z34-323t-u /2013 [facility] changed to 70f-a0f1ea [facility] 16a9bf [facility] , [facility] Nasonex req [id number] 12/01 12/01 NE Primary PA so b63-70hq-6 [facility] changed to 023-5528fe [facility] 686e90 [facility] , [facility] Nasonex req [id number] 12/01 12/01 NE Primary PA so 96a-4861- [facility] changed to ca8-f7dee9 [facility] [id number] [facility] , [facility] Nasonex req [id number] 12/01 12/01 NE Primary PA so 2db-456e-9 [facility] changed to ee8-c1d425 [facility] 4ef56a [facility] , [facility] Nasonex req [id number] 12/01 12/01 NE Primary PA so 9r8-87o9-2 [facility] changed to 250-f109bd [facility] e11f51 [facility] , [facility] Nasonex req [id number] 12/01 12/01 NE Primary PA so b97-5f0p-6 [facility] changed to 714-d650ea [facility] 608c4d [facility] , [facility] Nasonex req [id number] 12/01 12/01 NE Primary PA so 68b-456b-b /2013 [facility] changed to 2fb-jrk006 [facility] 98bc5c [facility] , [facility] req [id number] 12/01 12/01 NE Primary PA so 353-4fd4-b [facility] changed to u4a-008n94 [facility] 9j931t [facility] , [facility]x req [id number] 12/01 12/01 NE Primary PA so 8df-4766- [facility] changed to 2c9-5th026 [facility] fddb56 [facility] , [facility] Nasonex req [id number] 12/01 12/01 NE Primary PA so e35-3ygf-q /2013 [facility] changed to w53-3d8619 [facility] [id number] [facility] , [facility] Nasonex req [id number] 12/01 12/01 NE Primary PA so bfe-45f0-b /2013 [facility] changed to 999-9af15f [facility] 63fa01 [facility] , [facility] Nasonex req [id number] 12/01 12/01 NE Primary PA so fde-4273-a /2013 [facility] changed to 635-jog544 [facility] db0df2 [facility] , [facility] allergies dlxi742g-o 12/05 12/05 NE Primary not any 98b-46dc-a /2013 [facility] better from fc7-edafca [facility] last visit e82dc5 As [facility] , [facility] allergies [id number] 12/05 12/05 NE Primary not any 1a2-3c05-5 [facility] better from dc2-28f34b [facility] last visit [id number] [facility] , [facility] allergies ss9274bp-7 12/05 12/05 NE Primary not any 796-4de1- [facility] better from 32c-n3o097 [facility] last visit ccc62b [facility] , [facility] allergies l2f0651r-9 12/05 12/05 NE Primary not any 382-4045- [facility] better from 7l5-z24i8k [facility] last visit 85e754 [facility] , [facility] allergies 632p1109-8 12/05 12/05 NE Primary not any 343-44b5- [facility] better from n12-1490w4 [facility] last visit dbdd12 As [facility] , [facility] allergies [id number] 12/05 12/05 NE Primary not any 327-4be4- [facility] better from 489-2z5788 [facility] visit 32c1b1 [facility] , [facility] [id number]-r 12/05 12/05 NE Primary not any fbb-4422-b /2013 [facility] better from 2e0-10f1im [facility] last visit a206dd [facility] , [facility] allergies 8gc08178-a 12/05 12/05 NE Primary not any 01f-4935-b /2013 [facility] better from aeb-721e76 [facility] visit a9caef [facility] , [facility] allergies n19q9p95-z 12/05 12/05 NE Primary not any 9ec-4370-b /2013 [facility] better from ab9-p4194q [facility] visit d852d5 [facility] , [facility] allergies 884877g9-7 12/05 12/05 NE Primary not any s4j-60i1-2 [facility] better from 762-619cb5 [facility] last visit [id number] [facility] , [facility] allergies p7867awi-5 12/05 12/05 NE Primary not any 774-4dc0- [facility] better from bb6-6t6719 [facility] last visit 8f26ab [facility] , [facility] allergies fs388206-6 12/05 12/05 NE Primary not any 49f-4e37- [facility] better from 8b0-6998k2 [facility] visit e4617t [facility] , [facility] mj6gqsam-7 12/05 12/05 NE Primary not any cb5-4fe2- [facility] better from 6fd-94b0b1 [facility] visit [id number] [facility] , [facility] allergies 6tvy388z-h 12/05 12/05 NE Primary not any 4i7-3s50-w [facility] better from 171-84727o [facility] visit 72q222 [facility] , [facility] allergies 5a31r2wg-0 12/05 12/05 NE Primary not any b25-568h-2 [facility] better from 8f9-6q0u0p [facility] last visit 122a0f [facility] , [facility] allergies 0o7l4c77-r 12/05 12/05 NE Primary not any 56c-4576-b /2013 [facility] better from 7h3-w7u1k1 [facility] visit 79da50 [facility] , [facility] allergies 79396sl9-9 12/05 12/05 NE Primary not any 0s7-393j-8 [facility] better from 05c-19cac5 [facility] visit c7bfe5 [facility] , [facility] allergies 3713c858-0 12/05 12/05 NE Primary not any ac0-439e-a /2013 [facility] better from 0ca-ecbbdd [facility] last visit 39546s [facility] , [facility] allergies hmk4624j-7 12/05 12/05 NE Primary not any b36-4742-6 [facility] better from 493-s4t882 [facility] last visit d5d47a [facility] , [facility] allergies chmev456-t 12/05 12/05 NE Primary not any 481-4b59- [facility] better from 982-c1c5fa [facility] visit 3932fa [facility] , [facility] allergies 4495p116-f 12/05 12/05 NE Primary not any edb-4fd9- [facility] better from a68-gfv4b9 [facility] last visit [id number] [facility] , [facility] allergies 0n7s8412-5 12/05 12/05 NE Primary not any z17-99x9-v /2013 [facility] better from f28-0b3679 [facility] last visit [id number] [facility] , [facility] allergies 1mudvd36-u 12/05 12/05 NE Primary not any 7s9-2m29-p [facility] better from 40d-dnr077 [facility] last visit 6f4cd7 As [facility] , [facility] allergies u89w39n3-4 12/05 12/05 NE Primary not any 1t8-8v19-8 [facility] better from 111-b6fd09 [facility] last visit 263b0a [facility] , [facility] allergies 89063451-2 12/05 12/05 NE Primary not any 54d-4255- [facility] better from l0w-5nc296 [facility] visit 3fafa0 [facility] , [facility] z6u83420-c 12/05 12/05 NE Primary not any 45c-4cea- [facility] better from 16f-b1f963 [facility] visit [id number] [facility] , [facility] allergies 56t2c389-w 12/05 12/05 NE Primary not any l53-859m-9 [facility] Care better from 382-m2t184 [facility] last visit 6c1436 [facility] , [facility] allergies w7h6322x-z 12/05 12/05 NE Primary not any g67-1g06-w [facility] better from a63-285z11 [facility] last visit 6c8c2c As [facility] , [facility] allergies tkpe5e60-c 12/05 12/05 NE Primary not any 3g2-607o-b [facility] better from 15d-q4x912 [facility] last visit 9kt976 [facility] , [facility] allergies 689c2986-4 12/05 12/05 NE Primary not any de4-4e63- [facility] Care better from ef4-b90fd0 [facility] last visit dd4b60 [facility] , [facility] allergies 0x893afi-6 12/05 12/05 NE Primary not any 505-4508- [facility]ha Care better from [id number] [facility] visit [id number] [facility] , [place] [facility] [id number] 12/05 12/05 NE Primary not any [id number]- Prim rekha Care better from [id number] [facility] last visit [id number] [facility] , [place] [facility] [id number] 12/05 12/05 NE Primary not any [id number] Prim rekha Care better from [id number] [facility] last visit [id number] [facility] , [place] [facility] [id number] 12/05 12/05 NE Primary not any [id number] Prim rekha Care better from [id number] [facility] visit [id number] [facility] , [place] [facility] [id number] 12/05 12/05 NE Primary not any cd0-4163- /2013 [facility] better from [id number] [facility] last visit [id number] As soc , [place] [facility] Follow-Up [id number] 12/22 12/22 NE Primary med refill 371-45c0-a /2013 [facility] 73a-v70920 [facility] 3zp915 [facility] , [facility] Follow-Up [id number] 12/22 12/22 NE Primary med refill t2z-7989-9 [facility] k1l-ox6l38 [facility] a6ee6c [facility] , [place] [facility] Follow-Up i75xwz8n-6 12/22 12/22 NE Primary med refill t5i-56pt-e /2013 [facility] 0i2-i4kol6 [facility] dbf5fc [facility] , [place] [facility] Follow-Up [id number] 12/22 12/22 NE Primary med refill y64-6729-f /2013 [facility] fc8-034225 [facility] [id number] [facility] , [place] [facility] Follow-Up [id number] 12/22 12/22 NE Primary med refill 569-455e-b /2013 [facility] 29a-226942 [facility] aadfb2 [facility] , [place] [facility] Follow-Up [id number] 12/22 12/22 NE Primary med refill fe8-4604- [facility] dfe-s57628 [facility] [id number] [facility] , [place] [facility] Follow-Up [id number] 12/22 12/22 NE Primary med refill 295-4f89-b /2013 [facility] r6r-xdyuk8 [facility] 5a5afb [facility] , [place] [facility] Follow-Up [id number]-9 12/22 12/22 NE Primary med refill 583-4f63- [facility] da3-ocf772 [facility] [id number] [facility] [place] [facility] hatxq5od-0 12/22 12/22 NE Primary med refill 668-4933-8 /2013 [facility] cc3-3366c7 [facility] 744f07 [facility] , [place] [facility] Follow-Up [id number] 12/22 12/22 NE Primary med refill 009-4126-9 /2013 [facility] fa4-a5ea62 [facility] [id number] [facility] , [place] [facility] Follow-Up 35srm24p-3 12/22 12/22 NE Primary med refill 6k6-5a13-f /2013 [facility] x27-07uk9j [facility] a65ee6 [facility] , [facility] Follow-Up [id number]-0 12/22 12/22 NE Primary med refill 8ef-44dd-b /2013 [facility] 136-bff5c2 [facility] [id number] [facility] , [place] [facility] Follow-Up [id number] 12/22 12/22 NE Primary med refill 143-4305-b /2013 [facility] 87a-0v6490 [facility] 1383eb [facility] , [place] [facility] Follow-Up [id number]-5 12/22 12/22 NE Primary med refill q28-3l6g-x /2013 [facility] j57-9965i4 [facility] 1a1dd2 [facility] , [place] [facility] Follow-Up [id number] 12/22 12/22 NE Primary med refill 6ba-49d9-8 /2013 [facility] 25b-80941a [facility] 3710ef [facility] , [place] [facility] Follow-Up [id number]-v 12/22 12/22 NE Primary med refill 515-40c8-b /2013 [facility] 149-c648b9 [facility] [id number] [facility] , [facility] Follow-Up [id number] 12/22 12/22 NE Primary med refill 1fb-49e3-b /2013 [facility] aaf-325ba2 [facility] c4bb9c [facility] , [facility] Follow-Up [id number] 12/22 12/22 NE Primary med refill m30-3621-w /2013 [facility] fa8-c9a6b3 [facility] 50448e Ass[facility] , [place] [facility] Follow-Up 96nn90td-a 12/22 12/22 NE Primary med refill fe2-48c0-b /2013 [facility] 69e-tdq257 [facility] 3a9fc5 [facility] , [place] [facility] Follow-Up [id number]-1 12/22 12/22 NE Primary med refill v6q-5w4v-0 /2013 [facility] 972-y8861f [facility] a83b2a [place] , [place] [facility] Follow-Up [id number] 12/22 12/22 NE Primary med refill 81a-435c-a /2013 [facility] 6w6-3318u0 [facility] 59e30d [place] , [place] [facility] Follow-Up 3dg9qq48-w 12/22 12/22 NE Primary med refill 863-4215-9 [facility] s3j-n19rt7 [facility] 859f6f [place] , [place] [facility] Follow-Up [id number] 12/22 12/22 NE Primary med refill 71c-4879-9 /2013 [facility] [id number] [facility] t1302k [place] , [place] [facility] Follow-Up [id number] 12/22 12/22 NE Primary med refill u69-56ho-q /2013 [facility] 10b-5a5da1 [facility] [id number] [place] , [place] [facility] Follow-Up [id number] 12/22 12/22 NE Primary med refill 199-44bb-a /2013 [facility] [id number] [facility] 051f0c [facility] , [facility] Follow-Up [id number]-y 12/22 12/22 NE Primary med refill b46-6614-9 /2013 [facility] 332-500c6b [facility] bbf65d [place] , [place] [facility] Follow-Up [id number]-1 12/22 12/22 NE Primary med refill 549-43eb-a /2013 [facility] 864-90d2fd [facility] 62b8a2 [place] , [place] [facility] Follow-Up [id number] 12/22 12/22 NE Primary med refill fe8-486b- [facility] 196-g4d667 [facility] c8a59c Ass[facility] , [place] [facility] Follow-Up [id number] 12/22 12/22 NE Primary med refill d05-5jyd-1 [facility] o1f-5768pm [facility] a2f4e7 [facility] , [place] [facility] Follow-Up [id number] 12/22 12/22 NE Primary med refill 17a-498b- [facility] 2s3-rq1233 [facility] 6d8a28 [facility] , [place] [facility] Follow-Up [id number]-4 12/22 12/22 NE Primary med refill 2o0-7725-6 [facility] 882-74515h [facility] [id number] [facility] , [place] [facility] Follow-Up [id number] 12/22 12/22 NE Primary med refill 51e-46b8- [facility] 459-qjn139 [facility] c1a1fb [facility] , [place] [facility] Follow-Up [id number] 12/22 12/22 NE Primary med refill ebd-4ac8- [facility] 15d-38832w [facility] 05c6d6 [facility] , [place] [facility] Refills must 668856q5-7 12/29 12/29 NE Primary go through 2s0-6993-3 [facility] eef-63c77b [facility] scripts e2cefc [facility] , [place] [facility] Refills must 3468g8qv-5 12/29 12/29 NE Primary go through 38c-4efe- [facility] fb0-db5f9d [facility] scripts f6a49a [facility] , [place] [facility] Refills must 93r0pf6e-6 12/29 12/29 NE Primary go through ce4-40ef-b [facility] 858-e305b0 [facility] scripts 7d31b6 [facility] , [place] [facility] Refills must [id number] 12/29 12/29 NE Primary go through arlene-443e-a /2013 [facility] [id number] [facility] scripts 6d37e0 [facility] , [place] [facility] Refills must [id number] 12/29 12/29 NE Primary go through 1cb-41a0-b [facility] 6b0-jn01t8 [facility] scripts [id number] [facility] , [place] [facility] Refills must 68oa0n6n-g 12/29 12/29 NE Primary go through i2o-6ec8-w [facility] f6u-b913b7 [facility] cac46d [facility] , [place] [facility] Refills must [id number] 12/29 12/29 NE Primary go through 207-4ec7-8 [facility] 5s0-170946 [facility] [id number] [facility] , [place] [facility] Refills must q4f897ra-3 12/29 12/29 NE Primary go through 318-4ead-8 [facility] 8r0-6b4d23 [facility] [id number] [facility] , [place] [facility] Refills must 446csg69-2 12/29 12/29 NE Primary go through l1g-85q2-2 [facility] 491-c76f3b [facility] ae6b49 [facility] , [place] [facility] Refills must 334p8379-b 12/29 12/29 NE Primary go through 744-439e-9 [facility] 5f2-826633 [facility] [id number] [facility] , [place] [facility] Refills must [id number]-3 12/29 12/29 NE Primary go through 618-441c-b [facility] 06a-po8784 [facility] [id number] [facility] , [place] [facility] Refills must 95eqfi55-7 12/29 12/29 NE Primary go through 0y4-7v1s-u [facility] 837-4f9c6d [facility] scripts [id number] [facility] , [place] [facility] Refills must [id number]-a 12/29 12/29 NE Primary go through u5r-2408-d [facility] w59-8q136g [facility] fbf78b [facility] , [place] [facility] Refills must 9493fx9j-7 12/29 12/29 NE Primary go through 507-4916-9 [facility] [id number] [facility] 14dd0d [facility] , [place] [facility] Refills must 845zmd29-0 12/29 12/29 NE Primary go through 603-464b-b [facility] 3de-z62481 [facility] [id number] [facility] , [place] [facility] Refills must 165wu084-b 12/29 12/29 NE Primary go through s61-0il1-d [facility] 25e-p6s797 [facility] [id number] [facility] , [place] [facility] Refills must 1403h3q7-a 12/29 12/29 NE Primary go through 2u4-4244-1 [facility] 07f-830d2f [facility] 13ae1d [facility] , [place] [facility] Refills must 14c70f1b-9 12/29 12/29 NE Primary go through 21b-4e20- [facility] 4ff-8118f6 [facility] [id number] [facility] , [place] [facility] Refills must 3bw0d848-9 12/29 12/29 NE Primary go through c3a-217o-9 [facility] d71-661127 [facility] 5abd1f [facility] , [place] [facility] Refills must oh1l8835-6 12/29 12/29 NE Primary go through cb8-4c7e-b [facility] l34-fr3vp6 [facility] [id number] [facility] , [place] [facility] Refills must 813u2637-o 12/29 12/29 NE Primary go through 533-4080-8 [facility] i23-5s2352 [facility] c9c0ee [facility] , [place] [facility] Refills must hfehfc54-1 12/29 12/29 NE Primary go through 9da-4804- [facility] b8v-2a1325 [facility] [id number] [facility] , [place] [facility] Refills must 407f3a69-b 12/29 12/29 NE Primary go through 8da-44e5-9 [facility] 038-738ede [facility] [id number] [facility] , [place] [facility] Refills must 53f39t86-h 12/29 12/29 NE Primary go through 808-4a9f-b /2013 [facility] 1u3-31n0e4 [facility] f5fff9 [facility] , [place] [facility] Refills must 452144db-3 12/29 12/29 NE Primary go through 2q7-8378-0 [facility] 759-cb11c9 [facility] [id number] [facility] , [place] [facility] Refills must 85j6uo77-7 12/29 12/29 NE Primary go through 1v0-6v51-9 [facility] 4bc-7fbf3b [facility] [id number] [facility] , [place] [facility] Refills must 842u5501-3 12/29 12/29 NE Primary go through 420-456f- [facility] 2dd-4b1f04 [facility] ee4f1a [facility] , [place] [facility] Refills must 794b9010-5 12/29 12/29 NE Primary go through 5t4-90b0-d /2013 [facility] 3h8-9pm645 [facility] [id number] [facility] , [place] [facility] Refills must p03ky598-d 12/29 12/29 NE Primary go through t87-1295-a /2013 [facility] [id number] [facility] [id number] [facility] , [place] [facility] Refills must 93m3xne5-w 12/29 12/29 NE Primary go through dc9-4e77-a /2013 [facility] d4k-015123 [facility] c70eec [facility] , [place] [facility] Refills must 2q7h04r3-5 12/29 12/29 NE Primary go through 37e-4b4c-a /2013 [facility] bc6-09n422 [facility] 8a62a6 [facility] , [place] [facility] Refills must [id number] 12/29 12/29 NE Primary go through 704-4049-b /2013 [facility] 92c-8cx450 [facility] [id number] [facility] , [place] [facility] Refills must [id number] 12/29 12/29 NE Primary go through 50b-40c2-8 /2013 [facility] cb9-5305cd [facility] c76d4a [facility] , [place] [facility] Refills must t18fj26m-6 12/29 12/29 NE Primary go through 725-40e7- [facility] 3z7-85je82 [facility] [id number] [facility] , [place] [facility] Refills must 373j1348-9 12/29 12/29 NE Primary go through 879-443b- [facility] 879-f1b62f [facility] b47e00 [facility] , [place] [facility] Pen needles [id number]-n 01/08 01/08 NE Primary refill q7c-6437-w /2013 [facility] request [id number] [facility] 653d87 [facility] , [place] [facility] 814m7270-7 01/08 01/08 NE Primary refill 2ea-49b9-b /2013 [facility] request 1ed-dc2a7e [facility] a7cba0 [facility] , [place] [facility] 9407befa-a 01/08 01/08 NE Primary refill 8ab-4795-8 /2013 [facility] [id number] [facility] [id number] [facility] , [place] [facility] [id number] 01/08 01/08 NE Primary refill u00-0d4h-z /2013 [facility] [id number] [facility] 5ae3e3 [facility] , [place] [facility] [id number]-k 01/08 01/08 NE Primary refill 369-4d85-a /2013 [facility] [id number] [facility] [id number] [facility] , [place] [facility] 28ysg212-7 01/08 01/08 NE Primary refill 4cb-4a18-b /2013 [facility] [id number]-117713 [facility] b627f7 [facility] , [place] [facility] [id number] 01/08 01/08 NE Primary refill 903-48e6-a /2013 [facility] [id number] [facility] [id number] [facility] , [place] [facility] [id number]-[id number] 01/08 01/08 NE Primary refill ba3-4c6e-a /2013 [facility] request emergency management specialist-r00986 [facility] c73f7f [facility] , [facility] 125c85uw-f 01/08 01/08 NE Primary refill 1i1-085m-a /2013 [facility] [id number]-d91e97 [facility] 2ebf2f [facility] , [place] [facility] [id number] 01/08 01/08 NE Primary refill 66a-487b-b /2013 [facility] [id number]-[id number] [facility] b33ce2 [facility] , [place] [facility] x84wz5td-3 01/08 01/08 NE Primary refill 7fa-4d01-b /2013 [facility] ee6-5660eb [facility] [id number] [facility] [place] [facility] [id number] 01/08 01/08 NE Primary refill 0h3-7bd7-4 /2013 [facility] d6k-9b2gf4 [facility] f78d77 [facility] [place] [facility] 04f0bpyo-f 01/08 01/08 NE Primary refill x42-4o4u-t /2013 [facility] 21f-36fcf3 [facility] o7r326 [facility] [place] [facility] [id number]-4 01/08 01/08 NE Primary refill 847-431e-8 /2013 [facility] g35-jx5j68 [facility] [id number] [facility] [place] [facility] [id number]-s 01/08 01/08 NE Primary refill 897-461d-b /2013 [facility] [id number] [facility] [id number] [facility] [place] [facility] [id number] 01/08 01/08 NE Primary refill 58c-4c89-b /2013 [facility] [id number] [facility] 6d0ff0 [facility] , [facility] [id number] 01/08 01/08 NE Primary refill 036-4d16-a /2013 [facility] cdf-92h279 [facility] 4c8ddf [facility] , [facility] [id number] 01/08 01/08 NE Primary refill fbe-487c-8 /2013 [facility] fda-dd90f1 [facility] [id number] [facility] [id number]-m 01/08 01/08 NE Primary refill f64-0w58-9 /2013 [facility] f35-7bqg4l [facility] [id number] [facility] [place] [facility] [id number]-f 01/08 01/08 NE Primary refill f5p-9018-6 /2013 [facility] [id number] [facility] [id number] [facility] , [facility] [id number]-u 01/08 01/08 NE Primary refill g14-0q06-l /2013 [facility] [id number] [facility] [id number] [facility] [place] [facility] [id number] 01/08 01/08 NE Primary refill r63-629m-z /2013 [facility] fe9-13ec33 [facility] [id number] [facility] [place] [facility] [id number] 01/08 01/08 NE Primary refill 3h8-00yr-z /2013 [facility] o7j-724lr5 [facility] 5b93c7 [facility] [place] [facility] 20f080xu-t 01/08 01/08 NE Primary refill k1t-6419-8 /2013 [facility] [id number] [facility] [id number] [facility] [place] [facility] [id number]-z 01/08 01/08 NE Primary refill 997-41ab-b /2013 [facility] [id number]-uk0432 [facility] [id number] [facility] [place] [facility] sufi21n3-3 01/08 01/08 NE Primary refill eb1-4a8e-b /2013 [facility] 96d-eb0a09 [facility] [id number] [facility] [place] [facility] [id number]-1 01/08 01/08 NE Primary refill 8j6-282x-9 /2013 [facility] [id number]-h34ch8 [facility] [id number] [facility] [id number]-1 01/08 01/08 NE Primary refill 1aa-42a2-9 /2013 [facility] [id number]-79812h [facility] 4b11a6 [facility] 0734mc3s-p 01/08 01/08 NE Primary refill q0z-8630-c /2013 [facility] [id number]-y6k007 [facility] [id number] [facility] [id number]-i 01/08 01/08 NE Primary refill 01e-4c94-b /2013 [facility] 47c-23bb2d [facility] b55ffb [facility] [id number] 01/08 01/08 NE Primary refill ca5-441e-b /2013 [facility] [id number]-[id number] [facility] ca92e4 [facility] [id number]-5 01/08 01/08 NE Primary refill 53d-48ea- /2013 [facility] [id number] [facility] [id number] [facility] , [facility] [id number]-7 01/08 01/08 NE Primary refill 1da-43d2-b /2013 [facility] [id number]-71646j [facility] 0f41af [facility] ca85y414-7 01/08 01/08 NE Primary eb5-419c- /2013 [facility] n8d-15ci53 [facility] [id number] [facility] [id number] 01/08 01/08 NE Primary 2ed-40d7-b /2013 [facility] x6r-h19w19 [facility] 1777a3 [facility] [id number] 01/08 01/08 NE Primary 6e0-6689-r /2013 [facility] r98-2e8s61 [facility] 9a49f4 [facility] , [facility] [id number] 01/08 01/08 NE Primary 818-44ce-a /2013 [facility] 68f-r4h029 [facility] [id number] [facility] [id number] 01/08 01/08 NE Primary 2r5-3e90-t /2013 [facility] 719-180c3a [facility] 8ef9db [facility] [id number] 01/08 01/08 NE Primary v8p-1i24-c /2013 [facility] 0p6-wgqcpc [facility] 778c7b [facility] [id number] 01/08 01/08 NE Primary 010-4a65- [facility] 759-4or948 [facility] 726c45 [facility] , [facility] [id number] 01/08 01/08 NE Primary 46e-491a- [facility] 853-f05c6c [facility] 90b9ca [facility] 4oclu887-9 01/08 01/08 NE Primary 5ed-472b- [facility] 910-4cc3a1 [facility] e48ec3 [facility] [id number] 01/08 01/08 NE Primary 34a-4f57-8 [facility] d67-13a24n [facility] 9c000p [facility] [id number]-[id number] 01/08 01/08 NE Primary k82-2z88-0 /2013 [facility] p52-m9463y [facility] ae09e3 [facility] [id number]-9 01/08 01/08 NE Primary 908-4a87- [facility] 3ab-ybl594 [facility] [id number] [facility] arogw340-k 01/08 01/08 NE Primary 54b-43ce-b /2013 [facility] [phone] [facility] [id number] [facility] [id number]-j 01/08 01/08 NE Primary z9k-2cua-2 /2013 [facility] fb5-065d76 [facility] a365b2 [facility] [id number] 01/08 01/08 NE Primary 002-44fd-8 /2013 [facility] 494-1f68f3 [facility] [id number] [facility] [id number]-g 01/08 01/08 NE Primary ae9-4f3c-b /2013 [facility] 15d-5886ea [facility] 3cdb3a [facility] [id number] 01/08 01/08 NE Primary cc6-4dcf-a /2013 [facility] f2o-4p845y [facility] b7ac2b [facility] [id number] 01/08 01/08 NE Primary 557-40b6- [facility] t2j-xex899 [facility] d8f72e [facility] [id number] 01/08 01/08 NE Primary m29-8x6n-9 [facility] 3dc-21ae1c [facility] [id number] [facility] , [facility] [id number] 01/08 01/08 NE Primary 19b-4463- [facility] ee2-438c81 [facility] [id number] [facility] 5088vr5o-7 01/08 01/08 NE Primary 39f-412a- [facility] be0-594da3 [facility] [id number] [facility] [id number]-k 01/08 01/08 NE Primary 0cb-43f3-b /2013 [facility] 9z6-3j03g5 [facility] [id number] [facility] [id number] 01/08 01/08 NE Primary 030-4708-8 /2013 [facility] m6q-ic204d [facility] [id number] [facility] [id number] 01/08 01/08 NE Primary 2bd-42c5-b /2013 [facility] 0t4-u9fh9t [facility] 2c3b73 [facility] [id number]-[id number] 01/08 01/08 NE Primary 3j1-154z-3 /2013 [facility] 556-9397f9 [facility] cceb44 [facility] [id number] 01/08 01/08 NE Primary bd3-4e9d-8 /2013 [facility] 772-6459fe [facility] 546b3b [facility] [id number]-t 01/08 01/08 NE Primary 0n2-084r-r /2013 [facility] 29f-ca36e7 [facility] 8e3c46 [facility] [id number]-8 01/08 01/08 NE Primary bd9-4177- /2013 [facility] 6cf-9985fe [facility] 3df0a3 [facility] [id number] 01/08 01/08 NE Primary 5l2-53ye-8 /2013 [facility] 85f-3e98cd [facility] ed98e5 [facility] [id number]-6 01/08 01/08 NE Primary 7p2-7i85-w /2013 [facility] 9e9-53wmti [facility] c427b8 [facility] [id number]-8 01/08 01/08 NE Primary e0f-7475-p /2013 [facility] 827-e86dba [facility] 0b19ec [facility] [id number] 01/08 01/08 NE Primary 063-4475-a /2013 [facility] ffe-sn502x [facility] g4l602 [facility] [id number] 01/08 01/08 NE Primary 876-4cf4-b /2013 [facility] 9c7-193548 [facility] f8bac1 [facility] [id number]-j 03/16 03/16 NE Primary medication 34f-4d68-b /2013 [facility] 186-19ad5b [facility] [id number] [facility] [id number]-[id number] 03/16 03/16 NE Primary medication 759-4ccb-b /2013 [facility] 120-846f89 [facility] [id number] [facility] [id number] 03/16 03/16 NE Primary medication 045-4d5f- [facility] 6ae-6c4f19 [facility] 8dt260 [facility] , [place] [facility] Follow-Up [id number]-[id number] 03/16 03/16 NE Primary medication de0-42d6- [facility] g00-ravw32 [facility] bab6f1 [facility] , [place] [facility] Follow-Up [id number] 03/16 03/16 NE Primary medication 326-42c3-a /2013 [facility] dcf-8ex318 [facility] [id number] [facility] , [place] [facility] Follow-Up [id number]-[id number] 03/16 03/16 NE Primary medication 568-49ce- [facility] 316-98c6ad [facility] 027c12 [facility] , [place] [facility] Follow-Up [id number] 03/16 03/16 NE Primary medication 562-47c9- [facility] 608-97acb1 [facility] 4n609p [facility] , [place] [facility] Follow-Up [id number] 03/16 03/16 NE Primary medication 9ff-4005-a /2013 [facility] 43d-c61f9d [facility] 82f24c [facility] , [place] [facility] Follow-Up [id number] 03/16 03/16 NE Primary medication 68a-4552- [facility] [id number]-909212 [facility] c58e54 [facility] , [place] [facility] Follow-Up [id number] 03/16 03/16 NE Primary medication fb6-4664-a /2013 [facility] ccd-70cd80 [facility] [id number] [facility] [id number] 03/16 03/16 NE Primary medication 90b-43e1-a /2013 [facility] 1t6-4761b0 [facility] 2f89a9 [facility] , [place] [facility] Follow-Up [id number] 03/16 03/16 NE Primary medication 9h2-5c76-w /2013 [facility] 92d-7uu114 [facility] dcd34b [facility] , [facility] Follow-Up [id number] 03/16 03/16 NE Primary medication 230-4982-b /2013 [facility] 38e-k6914j [facility] [id number] [facility] , [place] [facility] Follow-Up [id number] 03/16 03/16 NE Primary medication 437-47d3-a /2013 [facility] bb2-dn5678 [facility] 8ca86b [facility] , [place] [facility] Follow-Up [id number]-5 03/16 03/16 NE Primary medication 397-4741-8 [facility] s82-1u84i8 [facility] d8bedb [facility] , [place] [facility] Follow-Up [id number] 03/16 03/16 NE Primary medication fb6-4797- [facility] 5i8-576z0c [facility] 63bca5 [facility] , [facility] Follow-Up [id number] 03/16 03/16 NE Primary medication o1x-8i9v-u /2013 [facility] 6db-7945ac [facility] [id number] [facility] , [place] [facility] Follow-Up 16asm28k-[id number] 03/16 03/16 NE Primary medication 2j6-3y5c-0 [facility] x00-9p2049 [facility] [id number] [facility] , [place] [facility] Follow-Up [id number]-s 03/16 03/16 NE Primary medication e5x-[id number] [facility] [id number] [id number] [facility] [place] [facility] Follow-Up [id number] 03/16 03/16 [place] Primary medication [id number] [id number] [facility] [id number] [facility] [place] [facility] Follow-Up [id number] 03/16 03/16 NE Primary medication [id number] /2013 [facility] [id number] [facility] [id number] [facility] [place] [facility] Follow-Up [id number] 03/16 03/16 NE Primary medication [id number] /2013 [facility] [id number] [facility] [facility] [id number] [facility] , [facility] Follow-Up [id number]-[id number] 03/16 03/16 NE Primary medication e92-8c3j-2 [facility] aee-f3ee33 [facility] af7ec6 [facility] , [facility] Follow-Up [id number] 03/16 03/16 NE Primary medication faa-4da7- P [facility] 4a3-3mygi9 [facility] 0dfbba Asslet[facility] , [place] [facility] Follow-Up 823x0cx0-7 03/16 03/16 NE Primary medication 4dc-4c6b-b /2013 [facility] 8f[facility]-bki3h4 [facility] 93c58f [facility] , [facility] Follow-Up 299qz563-3 03/16 03/16 NE Primary medication 07d-4c20- [facility] d67-063f9i [facility] [id number] [facility] , [facility] Follow-Up [id number] 03/16 03/16 NE Primary medication m6y-3ur3-6 [facility] 013-f2b89b [facility] 29efab [facility] , [facility] Follow-Up 9y37boq3-9 03/16 03/16 NE Primary medication l50-349u-g /2013 [facility] a34-170r05 [facility] [id number] [facility] , [facility] Follow-Up [id number] 03/16 03/16 NE Primary medication 1m4-4498-a /2013 [facility] 411-5e7437 [facility] 16n721 [facility] , [facility] Follow-Up 7q954dw6-e 03/16 03/16 NE Primary medication y74-97t2-z /2013 [facility] 117-554c8b [facility] [id number] [facility] [place] [facility] 7rsbx6i1-g 03/18 03/18 NE Primary Naproxen 1ac-474c-a /2013 [facility] 627-fcf74b [facility] 72d71c [facility] , [place] [facility] ref[facility] 0ohp67p3-j 03/18 03/18 NE Primary Naproxen y50-79ir-d /2013 [facility] 607-0eaf69 [facility] 911c6a [facility] , [place] [facility] ref[facility] 782j9af2-9 03/18 03/18 NE Primary Naproxen 615-4cfb-b /2013 [facility] a09-6u177z [facility] d8d2fd [facility] [place] [facility] ref[facility] 531t238z-y 03/18 03/18 NE Primary Naproxen ded-407f-9 /2013 [facility] 1af-f4b0fb [facility] 4f1b54 [facility] [place] [facility] ref[facility] 37i4847e-v 03/18 03/18 NE Primary Naproxen 5t8-07lf-z /2013 [facility] 95b-e07a22 [facility] 6b6d77 [facility] [place] [facility] ref[facility] on 65021652-0 03/18 03/18 NE Primary Naproxen 444-4561-9 [facility] 35b-bd3bcf [facility] 64332t [facility] [place] [facility] ref[facility] 4q04pj52-7 03/18 03/18 NE Primary Naproxen x19-0u97-r /2013 [facility] 3db-df3da4 [facility] 5d7fad [facility] [place] [facility] ref[facility] s9v2ckx7-g 03/18 03/18 NE Primary Naproxen j73-0287-g /2013 [facility] j1a-d0sd7e [facility] x5003n [facility] [place] [facility] ref[facility] sq9g39s7-7 03/18 03/18 NE Primary Naproxen kalyani-499a-9 /2013 [facility] z45-316o75 [facility] [id number] [facility] [place] [facility] ref[facility] on 943376fy-7 03/18 03/18 NE Primary Naproxen fb5-4186-a /2013 [facility] db7-5bfa66 [facility] 19d4f1 [facility] [place] [facility] ref[facility] 2bjp432x-8 03/18 03/18 NE Primary Naproxen t31-2367-u /2013 [facility] bf9-642656 [facility] 5031d4 [facility] [place] [facility] ref[facility] 34y043bs-h 03/18 03/18 NE Primary Naproxen m2u-3swr-2 /2013 [facility] 29b-4f650x [facility] 9324e0 [facility] , [place] [facility] ref[facility] 21tf41pk-6 03/18 03/18 NE Primary Naproxen 194-4d93-9 [facility] 4aa-6dd8f1 [facility] [id number] [facility] , [place] [facility] ref[facility] on 953269s5-5 03/18 03/18 NE Primary Naproxen 185-41e7-b /2013 [facility] w48-cvi86a [facility] 3342a4 [facility] [place] [facility] ref[facility] on 7487q234-b 03/18 03/18 NE Primary Naproxen 8a7-76o1-5 [facility] b8r-27203a [facility] fal255 [facility] [place] [facility] ref[facility] on 0tnh1376-r 03/18 03/18 NE Primary Naproxen 6fc-42ce-b /2013 [facility] 61d-97t027 [facility] d39beb [facility] [place] [facility] ref[facility] ozj1nj4h-p 03/18 03/18 NE Primary Naproxen 230-4934-a /2013 [facility] 209-p78149 [facility] b21d38 [facility] , [place] [facility] ref[facility] on 261670pl-6 03/18 03/18 NE Primary Naproxen 768-4dc6-8 /2013 [facility] 5bc-7a27f1 [facility] 9100c7 [facility] , [place] [facility] ref[facility] vjl3e5ie-9 03/18 03/18 NE Primary Naproxen o8r-7ub2-1 /2013 [facility] s97-q5z16r [facility] 2dc11c [facility] [place] [facility] ref[facility] 6ou7k880-1 03/18 03/18 NE Primary Naproxen 294-4e73-b /2013 [facility] z69-13x70n [facility] 32371l [facility] [place] [facility] ref[facility] 21r28ik7-6 03/18 03/18 NE Primary Naproxen 1s1-46x2-2 /2013 [facility] 42a-6y497i [facility] rl2539 [facility] , [place] [facility] ref[facility] 5ryt9tqg-1 03/18 03/18 NE Primary Naproxen 6b3-9vh1-4 /2013 [facility] 1d8-93o146 [facility] 0712bf [facility] [place] [facility] ref[facility] t3rg9083-2 03/18 03/18 NE Primary Naproxen 64e-4452-b /2013 [facility] k02-24e0mn [facility] 1398ca [facility] [place] [facility] ref[facility] 34gyz3ew-w 03/18 03/18 NE Primary Naproxen 1ae-44be-8 /2013 [facility] 96a-d22b63 [facility] aebb0d [facility] [place] [facility] ref[facility] u7301k2c-0 03/18 03/18 NE Primary Naproxen b55-35jp-f /2013 [facility] Care 867-cn5445 [facility] [id number] [facility] , [place] [facility] ref[facility] 3j8804p6-x 03/18 03/18 NE Primary Naproxen ce0-47bc-8 [facility] 729-e5f492 [facility] 3ae9ab [facility] , [place] [facility] ref[facility] 3us3c2d5-7 03/18 03/18 NE Primary Naproxen 0da-4390-9 [facility] c89-52t67c [facility] ab79d6 [facility] , [place] [facility] ref[facility] 1152di13-7 03/18 03/18 NE Primary Naproxen 09c-4760-8 /2013 [facility] Care 689-d9f03e [facility] f22f7d [facility] , [place] [facility] on 91362892-9 03/18 03/18 NE Primary Naproxen i8t-8256-1 /2013 [facility] 323-9e20a4 [facility] b192fa [facility] [place] [facility] ref[facility] d8f089jr-4 03/18 03/18 NE Primary Naproxen 018-4472-8 /2013 [facility] Care 4k2-z5c6dv [facility] [id number] [facility] [place] [facility] UTI 6876wc5d-1 04/16 04/16 N E Primary 9de-4d11-b /2013 [facility] 684-k2h579 [facility] [id number] [facility] [place] [facility] UTI 806c6nr4-u 04/16 04/16 N E Primary 193-4087-b /2013 [facility] j66-b08x96 [facility] 013b23 [facility] [place] [facility] UTI q669ws46-v 04/16 04/16 N E Primary 289-4625- /2013 [facility] 13f-99b51b [facility] 73626y [facility] [place] [facility] UTI 7y8azg25-j 04/16 04/16 N E Primary cf5-47d9-b /2013 [facility] m0m-248721 [facility] b9ad30 [facility] [place] [facility] ql4247pv-1 04/16 04/16 N E Primary e13-581g-2 [facility] 84d-78p717 [facility] UTI 59qp36m7-3 04/16 04/16 N E Primary 479-4e13- [facility] 521-0z730s [facility] 03454u [facility] [place] [facility] UTI ov87yu0i-u 04/16 04/16 N E Primary 7ce-4f95-8 /2013 [facility] q39-91vv63 [facility] f72b74 [facility] [place] [facility] poss UTI [id number] 04/16 04/16 N E Primary 2cc-4cb4- [facility] u49-481004 [facility] 91d97a [facility] [place] [facility] UTI 5pkevb5p-2 04/16 04/16 N E Primary 933-48b5-b /2013 [facility] 00d-011130 [facility] 223ffb [facility] [place] [facility] UTI 6dh425x3-9 04/16 04/16 N E Primary 721-41f4-9 /2013 [facility] 58c-0c38dd [facility] 35f3a5 [facility] [place] [facility] UTI 7tf9f6ea-1 04/16 04/16 N E Primary fbd-475f-a /2013 [facility] v77-781574 [facility] c2add7 [facility] , [place] [facility] poss UTI 96add061-q 04/16 04/16 N E Primary 103-43b1-8 /2013 [facility] i60-8607ao [facility] 5983c3 [facility] , [place] [facility] poss UTI [id number] 04/16 04/16 N E Primary i8m-776l-j /2013 [facility] 921-7f36c7 [facility] 17fd66 [facility]TI 931f36l2-2 04/16 04/16 N E Primary 43b-498e-b /2013 [facility] 4o8-h5y565 [facility] 7a26f6 [facility] , [place] [facility] poss UTI [id number] 04/16 04/16 N E Primary 60b-4e2e-a /2013 [facility] bb3-9afa05 [facility] kt341z [facility] , [facility] poss UTI [id number] 04/16 04/16 N E Primary 68a-4783-a /2013 [facility] eb8-450ede [facility] ec05d0 [facility] , [place] [facility] poss UTI [id number] 04/16 04/16 N E Primary ae3-43a0-a /2013 [facility] 091-66a82d [facility] 914fa2 [facility] , [place] [facility] poss UTI [id number]-v 04/16 04/16 N E Primary a92-1129-6 [facility] 53d-58ba65 [facility] 03007p [facility] , [place] [facility] poss UTI d5w1n26u-2 04/16 04/16 N E Primary 645-41f0- [facility] 327-c5ba57 [facility] 0b65ab [facility] , [place] [facility] poss UTI [id number] 04/16 04/16 N E Primary 354-4fd2- [facility] 569-gb9337 [facility] d4cb0a [facility] , [place] [facility] poss UTI [id number] 04/16 04/16 N E Primary ff3-421e- [facility] fc6-3x7486 [facility] 299de2 [facility] [place] [facility] [id number] 04/16 04/16 N E Primary 75b-427b- /2013 [facility] 29f-dc58ad [facility] 8a17b2 [facility] [place] [facility] UTI [id number] 04/16 04/16 N E Primary 12c-4df6-b /2013 [facility] l19-tpu06i [facility] 9h935l [facility] [place] [facility] poss UTI [id number] 04/16 04/16 N E Primary 8f9-66u9-9 /2013 [facility] 06f-adc7e5 [facility] [id number] [facility] [place] [facility] poss UTI [id number] 04/16 04/16 N E Primary ab5-4fac- [facility] 1de-5881d8 [facility] 6efba5 [facility] [place] [facility] poss UTI [id number]-j 04/16 04/16 N E Primary 97b-45d5- [facility] 2p5-195s99 [facility] ea6a54 [facility] [place] [facility] poss UTI [id number] 04/16 04/16 N E Primary d79-60mc-x /2013 [facility] 4t4-rg9826 [facility] 52fa59 [facility] [place] [facility] poss UTI [id number]-m 04/16 04/16 N E Primary d7o-4c70-z /2013 [facility] m4a-8m6z7i [facility] 137773 [facility] , [place] [facility] ref[facility] z380v5da-h 06/08 06/08 NE Primary fosamax 83e-40d2- Prim rekha Care 994-2596cf [facility] 591f94 [facility] , [place] [facility] ref[facility] 3v995405-h 06/08 06/08 NE Primary fosamax 0g2-592t-6 Prim re[facility] f11-19f8f9 [facility] [id number] [facility] , [place] [facility] ref[facility] p5y46614-k 06/08 06/08 NE Primary fosamax 2a7-8k78-u [facility] af1-dcc05a [facility] 7ea4e3 [facility] , [place] [facility] ref[facility] 5i04kfc9-1 06/08 06/08 NE Primary fosamax 56d-4cd2-b /2013 [facility] 07f-431fa0 [facility] s2o445 [facility] , [place] [facility] ref[facility] 8h15zwy2-2 06/08 06/08 NE Primary fosamax y72-58k5-3 /2013 [facility] bab-bf21cc [facility] 1ecc68 [facility] , [place] [facility] ref[facility] 4v78d8s0-4 06/08 06/08 NE Primary fosamax 58d-4066-a /2013 [facility] u02-824lqc [facility] 50n375 [facility] , [place] [facility] ref[facility] [place] v6825096-4 06/08 06/08 NE Primary fosamax 103-416f-a /2013 [facility] 05a-b5c47a [facility] 7bd6a9 [facility] , [place] [facility] refill [place] 636978gu-c 06/08 06/08 NE Primary fosamax y7a-1f0n-0 /2013 [facility] 087-389229 [facility] [id number] [facility] , [place] [facility] refill [facility] 12ez832t-8 06/08 06/08 NE Primary fosamax ae0-4a50-9 /2013 [facility] ce3-04y557 [facility] 562c1a [facility] , [place] [facility] ref[facility] 99fzoks6-x 06/08 06/08 NE Primary fosamax 9e8-3b95-k /2013 [facility] 8d6-g4t41j [facility] 03b1b2 [facility] , [place] [facility] refill [facility] n9bx6894-8 06/08 06/08 NE Primary fosamax 3ac-4a0f-a /2013 [facility] h22-716h1j [facility] 98fb0a [facility] , [place] [facility] refill [facility] 79ros666-2 06/08 06/08 NE Primary fosamax db5-4397-b /2013 [facility] 344-7b4abb [facility] x3a780 [facility] , [place] [facility] ref[facility] [place] 3082s7d0-4 06/08 06/08 NE Primary fosamax 2m6-35q5-g /2013 [facility] 9k5-762in3 [facility] 3cb38f [facility] , [place] [facility] ref[facility] 070fpgg9-e 06/08 06/08 NE Primary fosamax 4g5-592h-8 /2013 [facility] 527-29001k [facility] a407ee [facility] , [place] [facility] ref[facility] 19e283s6-e 06/08 06/08 NE Primary fosamax 88e-405c-a /2013 [facility] fc2-5feb40 [facility] 621db8 [facility] , [place] [facility] refill [facility] 9u3105zc-g 06/08 06/08 NE Primary fosamax 329-4978-9 /2013 [facility] 4bd-8la193 [facility] db30a9 [facility] , [place] [facility] ref[facility] on 8l640689-9 06/08 06/08 NE Primary fosamax 8cf-42d1-8 /2013 [facility] 74c-d1e8d9 [facility] 464d0c [facility] , [place] [facility] ref[facility] p4a707w2-o 06/08 06/08 NE Primary fosamax 9x4-49kd-1 /2013 [facility] b52-jyg4sa [facility] a5d07d [facility] , [place] [facility] ref[facility] kg9649oq-7 06/08 06/08 NE Primary fosamax 7f0-9u28-e /2013 [facility] 32d-9a32a5 [facility] 0363e7 [facility] , [place] [facility] ref[facility] on 39x61980-j 06/08 06/08 NE Primary fosamax 0v3-9951-9 /2013 [facility] 59f-102ac0 [facility] [id number] [facility] , [place] [facility] ref[facility] kb4fz368-8 06/08 06/08 NE Primary fosamax kalyani-4641-8 /2013 [facility] o03-wx663x [facility] d276f3 [facility] , [place] [facility] ref[facility] 8q9xs838-g 06/08 06/08 NE Primary fosamax 26d-410c-b /2013 [facility] a1k-4ar035 [facility] c4f5ec [facility] , [place] [facility] ref[facility] 58s0sw8x-d 06/08 06/08 NE Primary fosamax def-4b53-9 /2013 [facility] 3bb-e04dbf [facility] 96fe06 [facility] , [place] [facility] ref[facility] tg6x7cpi-2 06/08 06/08 NE Primary fosamax 3e1-688c-b /2013 [facility] l33-noy230 [facility] 2ddc0f [facility] , [place] [facility] refill [facility] 996h6r6s-8 06/08 06/08 NE Primary fosamax ef4-4c05-8 /2013 [facility] 89c-3t4528 [facility] [id number] [facility] , [place] [facility] refill [facility] ed4566hj-g 06/08 06/08 NE Primary fosamax ef7-4cdb-a /2013 [facility] 96d-219b46 [facility] u2191z [facility] , [place] [facility] ref[facility] 199p951r-2 06/08 06/08 NE Primary fosamax a46-2f1t-j /2013 [facility] caa-276bde [facility] fff97a [facility] [place] [facility] 25ith79e-x 07/13 07/13 NE Primary 4ba-420a-a /2014 [facility] h20-927228 [facility] 896201 [facility] [place] [facility] 227kx1hi-4 07/13 07/13 NE Primary 4p1-4sn0-x /2014 [facility] 6x9-pxqw05 [facility] 7043f8 [facility] [place] [facility] x24u87o0-g 07/13 07/13 NE Primary ddd-4370-8 /2014 [facility] 1af-nnj006 [facility] 83e9a2 [facility] , [place] [facility] ba68z357-6 07/13 07/13 NE Primary 169-4b1c-9 /2014 [facility] u09-q6782h [facility] a913bb [facility] [place] [facility] yv9y4124-1 07/13 07/13 NE Primary 815-46df-a /2014 [facility] 3t2-s24tq1 [facility] 7a1c6f [facility] , [facility] 41p0081o-8 07/13 07/13 NE Primary 15d-4eac-9 /2014 [facility] 54d-8e50d4 [facility] b08ecd [facility] [place] [facility] 878tlbw8-6 07/13 07/13 NE Primary 855-477e-8 /2014 [facility] 71f-zhy504 [facility] 9b68df [facility] r0818j58-n 07/13 07/13 NE Primary x10-58f3-p /2014 [facility] 0p0-b47514 [facility] cefe87 [facility] [id number] 07/13 07/13 NE Primary i49-4cq1-k /2014 [facility] 74e-b5ccec [facility] h47037 [facility] [place] [facility] 9f04tk0f-3 07/13 07/13 NE Primary v69-7gq1-0 /2014 [facility] afb-58g239 [facility] 8q572m [facility] [place] [facility] 49ih2y60-q 07/13 07/13 NE Primary 9g4-5uv6-5 /2014 [facility] n7s-62w570 [facility] c918f9 [facility] [place] [facility] s6xbw85o-d 07/13 07/13 NE Primary x33-659s-x /2014 [facility] 636-b74e6f [facility] 29d03a [facility] [place] [facility] 46z10943-9 07/13 07/13 NE Primary 325-4720-b /2014 [facility] 04e-fba3e4 [facility] 975498 [facility] [place] [facility] u81a5b97-3 07/13 07/13 NE Primary cd0-4179-9 /2014 [facility] 9n9-209094 [facility] 08j523 [facility] [place] [facility] 1db8ep65-w 07/13 07/13 NE Primary 4a4-6ov4-l /2014 [facility] cc5-ikn473 [facility] d06e84 [facility] 272w84l6-r 07/13 07/13 NE Primary e22-5w3p-7 [facility] 5n0-67rhxz [facility] 949405 [facility] [place] [facility] 63wt1d6v-9 07/13 07/13 NE Primary eb7-4744-b /2014 [facility] d7q-224n12 [facility] 5bc6b8 [facility] 61x11mxj-p 07/13 07/13 NE Primary 355-4252-a /2014 [facility] n6l-132816 [facility] 9da6a1 [facility] v42k7554-3 07/13 07/13 NE Primary t93-9ccw-o /2014 [facility] 77c-61b8c1 [facility] 0ef7f1 [facility] [place] [facility] 6204n54m-5 07/13 07/13 NE Primary 061-48a7-a /2014 [facility] 052-8d5a82 [facility] 9a6606 [facility] wp2d5088-u 07/13 07/13 NE Primary 863-49f5-8 /2014 [facility] 468-4iv676 [facility] 556b15 [facility] [place] [facility] 656399lg-7 07/13 07/13 NE Primary w62-6533-n /2014 [facility] a25-opaazp [facility] d3f9b5 [facility] [place] [facility] n7rc9250-4 07/13 07/13 NE Primary 6n2-5v46-4 /2014 [facility] 96c-b7da7c [facility] op2322 [facility] cqke7850-0 07/13 07/13 NE Primary c5d-2n93-2 /2014 [facility] j7p-6k8n07 [facility] bf9ded [facility] 6vtj54n1-v 07/13 07/13 NE Primary cdc-47a3-9 /2014 [facility] 7f7-irk5v8 [facility] 3f7f8a [facility] 045s8n23-4 07/13 07/13 NE Primary p2i-3fn0-l /2014 [facility] 586-684309 [facility] 60g153 [facility] [place] [facility] 7bqde0ss-1 07/17 07/17 NE Primary 53c-490e-b /2014 [facility] 28f-80b2e1 [facility] 44703m [facility] , [facility] cold [id number] 07/17 07/17 NE Primary 85b-48aa-8 /2014 [facility] ae5-ae5f99 [facility] 01c50a [facility] , [facility] cold eww81259-8 07/17 07/17 NE Primary 40b-467e-8 /2014 [facility] u2p-k8498j [facility] fa9a86 [facility] [place] [facility] 6o90g7m6-1 07/17 07/17 NE Primary a11-840r-3 /2014 [facility] 6t7-55t353 [facility] 9a5eff [facility] , [facility] 058i5enw-5 07/17 07/17 NE Primary 4db-4ca8-9 /2014 [facility] 6dc-7004bb [facility] 36003k [facility] b70bn491-i 07/17 07/17 NE Primary 9ec-40dc-b /2014 [facility] 2j6-78i5hn [facility] 81f4ad [facility] [id number] 07/17 07/17 NE Primary r61-70r3-1 /2014 [facility] s34-0sh7te [facility] 18dee1 [facility] , [facility] [id number] 07/17 07/17 NE Primary t4b-279e-2 /2014 [facility] 9fd-aa6cd9 [facility] 016e6e [facility] , [facility] x55l3883-2 07/17 07/17 NE Primary m17-7g96-3 /2014 [facility] 526-38f4b4 [facility] 037307 [facility] , [facility] cold 40662y74-4 07/17 07/17 NE Primary 327-40b6-b /2014 [facility] 1n7-984119 [facility] 215e8b [facility] , [facility] cold 5f34ud0o-d 07/17 07/17 NE Primary 5b5-9386-v /2014 [facility] 050-f393fa [facility] 0d70aa [facility] q88p6ara-3 07/17 07/17 NE Primary 504-4a7c-8 /2014 [facility] aab-c179ea [facility] 404a26 [facility] 6w45brgm-f 07/17 07/17 NE Primary 9dc-44cd-a /2014 [facility] 6c6-g09q5v [facility] 492538 [facility] 1340a65b-0 07/17 07/17 NE Primary fcc-49bc-a /2014 [facility] 870-85219i [facility] 7414b2 [facility] 915ij402-3 07/17 07/17 NE Primary l5y-8vp7-0 /2014 [facility] v09-ws5lvu [facility] [id number] [facility] [place] [facility] 2cb1t8s2-4 07/17 07/17 NE Primary p90-3457-n /2014 [facility] 311-f1f48d [facility] 868428 [facility] [place] [facility] m0i18048-0 07/17 07/17 NE Primary 2df-44c7-8 /2014 [facility] dd1-4of038 [facility] 9f3c51 [facility] [place] [facility] j7s760b5-2 07/17 07/17 NE Primary 98d-45d1-a /2014 [facility] 5o9-623172 [facility] 2900b2 [facility] xdb102df-f 07/17 07/17 NE Primary 627-4dfd-b /2014 [facility] 7ec-76c08e [facility] 5m5760 [facility] 72d6767s-5 07/17 07/17 NE Primary fe9-43b9-8 /2014 [facility] l76-1c3t38 [facility] 7f5480 [facility] 52753686-4 07/17 07/17 NE Primary u78-0863-9 /2014 [facility] 3dc-679a04 [facility] 2e32c4 [facility] [place] [facility] 6f18q22k-0 07/17 07/17 NE Primary bcf-4482-9 /2014 [facility] 9ef-f5y705 [facility] e82d86 [facility] 565o5ae8-5 07/17 07/17 NE Primary k64-9126-8 /2014 [facility] 4bc-6a34c7 [facility] c92c6b [facility] 53520m26-9 07/17 07/17 NE Primary 6t0-251m-k /2014 [facility] b4d-56a9tl [facility] 9fb5ac [facility] xni0l8m0-8 07/17 07/17 NE Primary w06-1vzr-g /2014 [facility] 928-4dd39d [facility] 477cbd [facility] 1r814y59-f 07/24 07/24 NE Primary h8f-47z0-3 /2014 [facility] 41a-7dfa1b [facility] 6u5680 [facility] cough ugo32473-0 07/24 07/24 NE Primary 345-48f7-b /2014 [facility] 2z5-31d52r [facility] 72m970 [facility] 7i08h1b6-y 07/24 07/24 NE Primary dc6-42ce-a /2014 [facility] 49a-4i0231 [facility] fl4761 [facility] 1z5756gy-3 07/24 07/24 NE Primary 0q3-7500-8 /2014 [facility] s75-z6i45w [facility] 830fca [facility] cough 8d31645d-m 07/24 07/24 NE Primary y88-2555-2 /2014 [facility] 839-7fq756 [facility] 9e3a0a [facility] l26ybg9t-5 07/24 07/24 NE Primary 811-4402-b /2014 [facility] h6g-zo5745 [facility] f66b30 [facility] k0dku2z0-z 07/24 07/24 NE Primary 731-415c-8 /2014 [facility] 9ea-3858bc [facility] 845e6d [facility] cough c659hkd3-9 07/24 07/24 NE Primary 75a-45f1-b /2014 [facility] 263-17z220 [facility] 4a7f03 [facility] cough 682hwj31-9 07/24 07/24 NE Primary 211-4474-9 /2014 [facility] bf5-53f8fb [facility] 632990 [facility] cough 0tfcrr10-h 07/24 07/24 NE Primary 780-49eb-9 /2014 [facility] 3w5-70961p [facility] 4b2a18 [facility] cough 1216770p-c 07/24 07/24 NE Primary 0w0-757f-6 /2014 [facility] 27c-a4c106 [facility] 29cdb1 [facility] f08469x2-5 07/24 07/24 NE Primary 697-41c5-8 /2014 [facility] 237-293701 [facility] ceaea3 [facility] av4404jk-k 07/24 07/24 NE Primary cdb-4286-8 /2014 [facility] [id number] [facility] [id number] [facility] [place] [facility] [id number] 07/24 07/24 [facility] [id number]-[id number] /2014 [facility] [id number] [facility] [id number] [facility] [id number] 07/24 07/24 [facility] 236-4729-8 /2014 [facility] [id number] [facility] [id number] [facility] [id number] 07/24 07/24 [facility] [id number]-[id number] /2014 [facility] [id number] [facility] [id number] [facility] [id number] 07/24 07/24 [facility] [id number] /2014 [facility] [id number] [facility] [id number] [facility] [place] [facility] [id number] 07/24 07/24 [facility] [id number]-a /2014 [facility] [id number] [facility] [id number] [facility] [place] [facility] [id number] 07/24 07/24 [facility] [id number] /2014 [facility] [id number] [facility] [id number] [facility] [place] [facility] [id number] 07/24 07/24 [facility] [id number] /2014 [facility] [id number] [facility] [id number] [facility] [id number] 07/24 07/24 [facility] [id number] /2014 [facility] [id number] [facility] [id number] [id number] 07/24 07/24 [facility] [id number] /2014 [facility] [id number] [facility] [id number] [facility] [id number] 07/24 07/24 [facility] [id number] /2014 [facility] [id number] [facility] [id number] [facility] [id number] 07/24 07/24 [facility] [id number] /2014 [facility] [id number] [facility] [id number] [facility] [place] [id number] 08/11 08/11 [facility] xanax [id number] /2014 [facility] [id number] [facility] [id number] [facility] [place] [facility] [id number] 08/11 08/11 [facility] x[facility] [id number] /2014 [facility] [id number] [facility] [id number] [facility] [id number] 08/11 08/11 [facility] x[facility] [id number]-[id number] /2014 [facility] [id number] [facility] [id number] [facility] [id number] 08/11 08/11 [facility] x[facility] 267-426d-b /2014 [facility] [id number] [facility] [id number] [facility] [place] [id number] 08/11 08/11 [facility] x[facility] 08d-[id number]-9 /2014 [facility] [id number] [facility] [id number] [facility] [place] [id number] 08/11 08/11 [facility] x[facility] [id number] /2014 [facility] [id number] [facility] [id number] [facility] c5zsxd50-7 08/11 08/11 [facility] z58-4m51-x /[facility]f8aa25 [facility] ff4d67 [facility] d70ft8pr-2 08/11 08/11 [facility] x[facility] dbb-4418-a /2014 [facility] 434-619ab3 [facility] [id number] [facility] 9r68cd5v-4 08/11 08/11 [facility] x[facility] w30-846r-4 /2014 [facility] 1h7-mc7m36 [facility] [id number] [facility] 1vx3l3f7-1 08/11 08/11 [facility] x[facility] 8v3-6b99-u /2014 [facility] 3h8-py553w [facility] [id number] [facility] [place] 15n71d9d-6 08/11 08/11 [facility] x[facility]ax 518-44fa-a /2014 [facility] 987-ee57a1 [facility] [id number] [facility] [place] 471r79ls-0 08/11 08/11 [facility] x[facility] 223-41d2-a /2014 [facility] 0c6-6885i2 [facility] 3460bd [facility] [place] 3nnz0546-4 08/11 08/11 [facility] x[facility] 974-4e36-9 /2014 [facility] k93-m74363 [facility] [id number] [facility] lf24a7ef-5 08/11 08/11 [facility] x[facility] 45b-445f-9 /2014 [facility] 8cd-723dfb [facility] f261bf [facility] s02e164n-8 08/11 08/11 [facility] 439-418f-9 /2014 [facility] bfb-0e3fde [facility] [id number] [facility] [place] 8a6hmw53-6 08/11 08/11 [facility] x[facility] ac8-4611-b /2014 [facility] x7n-p7ud1v [facility] b726f3 [facility] [place] 090z7p18-2 08/11 08/11 [facility] 0be-4f61-8 /2014 [facility] p2a-z8c58z [facility] ll767l [facility] l84w7e89-3 08/11 08/11 [facility] dcd-4a28-b /2014 [facility] d96-x5c2x6 [facility] aee1bb [facility] [place] 8zmy131l-0 08/11 08/11 [facility] x[facility] 723-4d33-a /2014 [facility] k14-72d08d [facility] [id number] [facility] [place] 1482cli4-0 08/11 08/11 [facility] fc3-40ee-b /2014 [facility] 0ac-901123 [facility] [id number] [facility] [place] 774xg98b-8 08/11 08/11 [facility] 76a-4a5f-a /2014 [facility] z2j-3o8047 [facility] 9c78e4 [facility] 7srr38p5-8 08/11 08/11 [facility] x[facility] 6fb-465f-b /2014 [facility] 1db-960f14 [facility] [id number] [facility] [place] 277h26et-q 08/11 08/11 [facility] 250-45c7-b /2014 [facility] 70a-334994 [facility] 030ff7 [facility] 8260c3h7-1 08/28 08/28 [facility] medications 702-4d33-b /2014 [facility] n48-676lc7 [facility] ef3f63 [facility] 864j9d69-4 08/28 08/28 [facility] medications x90-13r2-6 /2014 [facility] 2w5-229d04 [facility] c0bddd [facility] [id number] 08/28 08/28 [facility] medications q32-55r3-9 /2014 [facility] efa-1c03d8 [facility] [id number] [facility] [id number] 08/28 08/28 [facility] medications be5-4bb9-8 /2014 [facility] 0l6-f214ct [facility] 882bdd [facility] yiz6t623-6 08/28 08/28 [facility] medications 593-489c-8 /2014 [facility] 11b-05w576 [facility] [id number] [facility] u8vn5m7u-2 08/28 08/28 [facility] medications 8e9-17v1-4 /2014 [facility] 8k4-wg1930 [facility] [id number] [facility] mxn484gt-m 08/28 08/28 [facility] medications ed8-438e-8 /2014 [facility] 65d-24f0b1 [facility] 9650ae [facility] 6u75i4g2-1 08/28 08/28 [facility] 11a-4c22-8 /2014 [facility] db8-859767 [facility] [id number] [facility] [id number] 08/28 08/28 [facility] medications 0fb-43e5-b /2014 [facility] 74b-813690 [facility] 56r655 [facility] [id number] 08/28 08/28 [facility] medications 30e-42b0-9 /2014 [facility] p08-394cq1 [facility] 7694dd [facility] 5262ixt3-v 08/28 08/28 [facility] medications 9ed-42ae-9 /2014 [facility] 138-b5e7b8 [facility] fc83c1 [facility] [id number] 08/28 08/28 [facility] medications 684-44a4-a /2014 [facility] 496-0b1e1c [facility] uuh163 [place] [place] [facility] s601u5c3-u 08/28 08/28 [facility] medications ea7-4e5e-b /2014 [facility] fe7-fc3de1 [facility] [id number] [facility] [id number]-6 08/28 08/28 [facility] medications 2a3-46v9-r /2014 [facility] b90-37v4pa [facility] 568fba [place] [facility] [place] [facility] 726s356y-9 08/28 08/28 [facility] medications e76-4x19-t /2014 [facility] 0i2-355887 [facility] 255a9f [place] [facility] [place] [facility] 25v2o223-9 08/28 08/28 [facility] medications z7y-3u09-9 /2014 [facility] s67-r5ei67 [facility] 5fed12 [facility] q91nl2b6-1 08/28 08/28 [facility] medications i02-8fh2-b /2014 [facility] 97f-f95ff0 [facility] 26cbc0 [place] [place] [facility] m878tqb2-1 08/28 08/28 [facility] t34-6t15-3 /2014 [facility] 26a-1da99a [facility] a328af [facility] e70x02g1-3 08/28 08/28 [facility] medications 835-4c1b-9 /2014 [facility] 2u7-5oe7u8 [facility] [id number] [facility] u072sq00-3 08/28 08/28 [facility] medications 62c-484f-b /2014 [facility] 22b-69df17 [facility] 190eca [place] [facility] [place] [facility] 02822d67-7 08/28 08/28 [facility] medications 1cb-4d0e-a /2014 [facility] 389-o1z213 [facility] 00c7d9 [facility] 07ip36x1-b 08/28 08/28 [facility] 940-49d6-9 /2014 [facility] i5e-wcsl83 [facility] 02bed4 [facility] [id number] 08/28 08/28 [facility] 7c0-650y-p /2014 [facility] r83-424936 [facility] e465c3 [facility] [place] 911h237u-4 09/04 09/04 [facility] fosamax 43f-4576-9 /2014 [facility] y41-4eza21 [facility] e188f4 [facility] [place] [facility] on 51586j2e-7 09/04 09/04 [facility] fosamax 262-463e-a /2014 [facility] 5bd-e780cc [facility] [id number] [facility] [place] 11y60666-9 09/04 09/04 [facility] fos[facility]ax c0b-326g-h /2014 [facility] 8l8-k90t5k [facility] 632a6f [facility] [place] 207ks3t2-5 09/04 09/04 [facility]osamax 3g0-821t-g /2014 [facility] 310-e5d9e7 [facility] [id number] [facility] 3oj73bhi-8 09/04 09/04 [facility] fosamax a42-68x4-5 /2014 [facility] 5l7-kl6e56 [facility] 8c6fe5 [facility] on 15186ry3-5 09/04 09/04 [facility] fosamax 7x7-1jy1-4 /2014 [facility] 780-96810n [facility] a036f7 [facility] [place] r6v13105-t 09/04 09/04 [facility] fosam[facility] i4v-72cc-m /2014 [facility] g16-j396ew [facility] 41291k [facility] [place] 4b8872z0-7 09/04 09/04 [facility] fosamax 95a-4b61-b /2014 [facility] 673-030bc0 [facility] [id number] [facility] 3l9r0052-u 09/04 09/04 [facility] fos[facility]ax 266-488a-9 /2014 [facility] fdb-933339 [facility] 96400q [facility] [place] 6450x657-u 09/04 09/04 [facility] fosamax 634-477d-b /2014 [facility] 8e7-p9qhg3 [facility] [id number] [facility] t235o0ho-2 09/04 09/04 [facility]os[facility] p4n-7o9u-q /2014 [facility] 594-c394fd [facility] 0b96b7 [facility] on 419ku193-x 09/04 09/04 [facility] fosamax fff-444a-8 /2014 [facility] 003-a9f03e [facility] 70dd7f [facility] [place] k774019n-8 09/04 09/04 [facility] fosamax 7fb-461b-b /2014 [facility] af3-38bbba [facility] fc0eea [facility] [place] 2k144d17-1 09/04 09/04 [facility]os[facility] u24-0o93-9 /2014 [facility] q35-42o66b [facility] cf3efc [facility] 4ko142ts-c 09/04 09/04 [facility] fos[facility] aad-4745-9 /2014 [facility] b80-2e23p2 [facility] wi956k [facility] 1b2z3214-8 09/04 09/04 [facility] 4m2-9c54-7 /2014 [facility] 1y7-764bj5 [facility] edr836 [facility] [place] 729075k7-k 09/04 09/04 [facility]os[facility] h75-14gj-m /2014 [facility] 7fd-35b631 [facility] [id number] [facility] 7j4jec3e-y 09/04 09/04 [facility] fosamax ac2-46df-8 /2014 [facility] 636-984b5c [facility] 833edc [facility] on 50013566-1 09/04 09/04 [facility]os[facility]ax 6u6-8x94-r /2014 [facility] 771-z24363 [facility] d55b41 [facility] [place] e12di277-0 09/04 09/04 [facility] fosam[facility] df1-4d46-a /2014 [facility] afa-6a81e2 [facility] d50cb6 [facility] 89tu4vra-7 09/04 09/04 [facility] fosamax o76-733n-c /2014 [facility] 52a-91b0d3 [facility] 8a70a1 [facility] bk0ydi57-4 09/04 09/04 [facility] fosamax 4df-4db9-b /2014 [facility] l71-hp4592 [facility] c74031 [facility] h56u6660-0 09/04 09/04 [facility] fosam[facility] i54-4trc-b /2014 [facility] p2a-5n04f0 [facility] e170ea [facility] Unknown i4349c71-u 09/08 09/08 [facility] 5o8-869l-k /2014 [facility] ad1-488096 [facility] 6dj135 [facility] [place] [facility] 3r8v0zjv-5 09/08 09/08 [facility] ef0-49a7-9 /2014 [facility] d83-k8609j [facility] 83f092 [facility] Unknown [id number] 09/08 09/08 [facility] 00f-4586-a /2014 [facility] 398-gmk519 [facility] a01fda [facility] Unknown 0797p3es-2 09/08 09/08 [facility] 197-48be-a /2014 [facility] 81b-c5e9ff [facility] 73f3c1 [facility] 67m5p296-3 09/08 09/08 [facility] 89d-4027-a /2014 [facility] s4l-449s4z [facility] [id number] [facility] 5cz529ud-e 09/08 09/08 [facility] 839-4006-9 /2014 [facility] 3a5-339q4h [facility] [id number] [facility] [id number] 09/08 09/08 [facility] 220-4cc5- /2014 [facility] 7ba-91387a [facility] [id number] [facility] [place] [facility] [id number] 09/08 09/08 [facility] h09-6z8p-v /2014 [facility] 677-6d4a00 [facility] f0g652 [facility] Unknown 5188g784-v 09/08 09/08 [facility] 8z1-6op1-t /2014 [facility] eaf-0f6eb0 [facility] 9a8a8d [facility] [place] [facility] [id number]-3 09/08 09/08 [facility] 6x8-72n8-4 /2014 [facility] 779-qc9963 [facility] 7y753e [facility] [place] [facility] Unknown [id number]-[id number] 09/08 09/08 [facility] 2f5-06ha-n /2014 [facility] 0n3-gnv5r6 [facility] 2e3f3d [facility] Unknown [id number] 09/08 09/08 [facility] k19-3705-e /2014 [facility] 325-64749n [facility] [id number] [facility] [place] [facility] Unknown [id number] 09/08 09/08 [facility] 308-4e44-9 /2014 [facility] ad7-4e7f3a [facility] 9dc18f [facility] tydmz75z-x 09/08 09/08 [facility] 3c8-2540-0 /2014 [facility] fca-66403c [facility] d88dc3 [facility] [id number] 09/08 09/08 [facility] k3r-4758-a /2014 [facility] 022-8k739w [facility] [id number] [facility] [place] [facility] [id number] 09/08 09/08 [facility] p28-40jp-w /2014 [facility] 435-75058a [facility] [id number] [place] [facility] [place] [facility] Unknown [id number] 09/08 09/08 [facility] 8m7-5604-a /2014 [facility] 3f8-640xw4 [facility] [id number] [facility] [place] [facility] [id number] 09/08 09/08 [facility] s5y-22g5-l /2014 [facility] z73-rd59t8 [facility] [id number] [facility] [place] [facility] bfwo391h-y 09/08 09/08 [facility] 762-4862-b /2014 [facility] c8g-98w0et [facility] [id number] [facility] [place] [facility] [id number] 09/08 09/08 [facility] fa6-49d7- /2014 [facility] 8fb-aa3b5c [facility] [id number] [place] [facility] [place] [facility] t76zrbsf-8 09/08 09/08 [facility] 00f-4f84-9 /2014 [facility] 223-66ffcb [facility] 1h992x [place] [facility] [place] [facility] Unknown [id number] 09/08 09/08 [facility] 386-4acc-8 /2014 [facility] 308-r57243 [facility] [id number] [place] [facility] [place] [facility] Unknown [id number] 09/08 09/08 [facility] 82b-4735-9 /2014 [facility] 055-3978c3 [facility] [id number] [place] [facility] [place] [facility] poss [id number] 09/28 09/28 [facility] shingles 404-4955-b /2014 [facility] o8t-2jzt46 [facility] 29k013 [place] [facility] [place] [facility] poss [id number] 09/28 09/28 [facility] shingles 7ca-4875-8 /2014 [facility] c41-k58909 [facility] 39f3e7 [place] poss 0ci62ja4-4 09/28 09/28 [facility] shingles 94c-4372-a /2014 [facility] 6n7-07219i [facility] f10d01 [facility] poss r915gj53-1 09/28 09/28 [facility] shingles 2u2-7475-3 /2014 [facility] 763-248a82 [facility] 3f98be [facility] [place] [facility] poss [id number] 09/28 09/28 [facility] shingles k97-4o17-4 /2014 [facility] j13-01q23t [facility] [id number] [facility] [place] [facility] poss [id number] 09/28 09/28 [facility] shingles 53b-456f-8 /2014 [facility] 49c-3l331w [facility] ec444a [facility] poss [id number] 09/28 09/28 [facility] shingles f7l-1027-4 /2014 [facility] 079-17eb04 [facility] [id number] [facility] poss [id number]-4 09/28 09/28 [facility] shingles z67-3pr0-n /2014 [facility] 4v9-9t3y11 [facility] 318c9b [facility] [place] [facility] poss [id number] 09/28 09/28 [facility] shingles 6d9-3ek0-1 /2014 [facility] 462-5bfb21 [facility] da15ea [place] [facility] [place] [facility] poss [id number] 09/28 09/28 [facility] shingles 6ee-4fd8-9 /2014 [facility] 807-fc1bfa [facility] [id number] [facility] poss [id number]-1 09/28 09/28 [facility] shingles 19c-4d24-8 /2014 [facility] ff2-631414 [facility] ca9e1e [facility] poss o5r8v26t-m 09/28 09/28 NE [facility] shingles sánchez-4e6a-a /2014 [facility] 730-1d8357 [facility] [id number] [facility] poss [id number] 09/28 09/28 [facility] shingles 731-4c0a-a /2014 [facility] 2d9-3i7o44 [facility] 1c3ee8 [facility] [place] [facility] poss m116bm55-[id number] 09/28 09/28 [facility] shingles 26c-4e71-8 /2014 [facility] 9ba-04136m [facility] b1c7b7 [facility] [place] [facility] poss [id number] 09/28 09/28 [facility] shingles k0e-9409-8 /2014 [facility] 9fb-99w304 [facility] bdc2e4 [facility] [place] [facility] poss [id number] 09/28 09/28 [facility] sh[facility]les l9n-9b69-z /2014 [facility] fe4-d543a9 [facility] 5u614z [facility] poss [id number] 09/28 09/28 [facility] sh[facility]les 57f-4d4f-8 /2014 [facility] 722-349076 [facility] [id number] [facility] [place] [facility] poss [id number] 09/28 09/28 [facility] shingles 2cd-4023-a /2014 [facility] r53-h2nk1b [facility] f522e9 [facility] [place] [facility] poss [id number] 09/28 09/28 [facility] shingles 8fe-41cd-b /2014 [facility] 69a-47q383 [facility] 2b8be7 [facility] [place] [facility] poss [id number]-q 09/28 09/28 [facility] sh[facility]les ebe-4568-9 /2014 [facility] 42b-32132z [facility] 2h144x [facility] [place] [facility] poss [id number] 09/28 09/28 [facility] shingles 660-41f2-9 /2014 [facility] 886-316780 [facility] eba2a3 [facility] poss [id number] 09/28 09/28 [facility] shingles 686-47e6-8 /2014 [facility] 38c-36x371 [facility] 00d51f [facility] [place] [facility] poss [id number] 09/28 09/28 [facility] shingles 5l4-26cf-7 /2014 [facility] 54b-s2809q [facility] e62a0a [facility] Unknown 7583bcfb-6 10/08 10/08 [facility] 14a-40c6-a /2014 [facility] w2l-282bwr [facility] ud617s [facility] [place] [facility] Unknown [id number] 10/08 10/08 [facility] 23c-41af-b /2014 [facility] 56a-9f6d1d [facility] 832d3d [facility] Unknown [id number] 10/08 10/08 [facility] 633-41a3-a /2014 [facility] 4u1-r989yo [facility] 427a14 [facility] [place] [facility] Unknown [id number] 10/08 10/08 [facility] 165-4bff-8 /2014 [facility] u43-9kyjt9 [facility] [id number] [facility] Unknown [id number] 10/08 10/08 [facility] 043-4af5- [facility] j23-sdf083 [facility] [id number] [facility] Unknown [id number] 10/08 10/08 [facility] o73-978e-q /2014 [facility] i0u-67a16v [facility] 74c0a0 [facility] Unknown [id number]-9 10/08 10/08 [facility] 394-4ecd-8 /2014 [facility] 5y0-1ic8tx [facility] 12fa90 [facility] [place] [facility] Unknown 1917l2j6-4 10/08 10/08 [facility] 646-4c34-8 /2014 [facility] 327-67db8c [facility] 74d42c [facility] Unknown [id number] 10/08 10/08 [facility] 567-4c7c- [facility] 682-198beb [facility] [id number] [facility] Unknown [id number]-w 10/08 10/08 [facility] 0b1-80g6-8 [facility] e04-8gb7ga [facility] 780d3c [facility] [place] [facility] Unknown [id number] 10/08 10/08 [facility] fcb-4b96-9 /2014 [facility] 6m1-dywaw8 [facility] oa7375 [facility] Unknown [id number] 10/08 10/08 [facility] l73-666k-y /2014 [facility] af2-9fad5d [facility] d00dc5 [facility] Unknown [id number] 10/08 10/08 [facility] 5a7-3v91-v /2014 [facility] ef9-91d62b [facility] 3cedac [facility] Unknown [id number] 10/08 10/08 [facility] 514-46ab-9 /2014 [facility] 7i1-0iia9k [facility] 75d33a [facility] Unknown h34z0r76-g 10/08 10/08 [facility] ef4-4ceb-8 /2014 [facility] 45e-8eb8fb [facility] 280a76 [facility] Unknown [id number] 10/08 10/08 [facility] 5da-4763-b /2014 [facility] df7-ll4172 [facility] r7147o [facility] Unknown [id number] 10/08 10/08 [facility] 38f-44c5-8 /2014 [facility] v85-9n3bva [facility] [id number] [facility] Unknown 502bafee-c 10/08 10/08 [facility] ca8-4dda-b /2014 [facility] 19e-95fc82 [facility] c1d1c7 [facility] [place] [facility] Unknown [id number] 10/08 10/08 [facility] 63b-4067-b /2014 [facility] 8l0-55604b [facility] b43d30 [facility] Unknown i46497pf-6 10/08 10/08 [facility] 2d0-3t9b-p /2014 [facility] 0p4-ppzu59 [facility] [id number] [facility] Unknown [id number] 10/08 10/08 [facility] n07-0c76-a /2014 [facility] 66f-8829fb [facility] on969h [facility] [id number] 10/08 10/08 [facility] f26-16d9-8 /2014 [facility] 5l1-d7868d [facility] [id number] [facility] Unknown [id number] 10/08 10/08 NE Primary ab7-4474-a /2014 [facility] cbd-04b0c0 [facility] [id number] [facility] re-evaluate [id number]-l 10/19 10/19 NE Primary c77-7318-n /2014 [facility] bd8-cef5d3 [facility] bf7a50 [facility] re-evaluate [id number] 10/19 10/19 [facility] Primary ef3-4afb-9 /2014 [facility] 1z8-82y9cg [facility] 7fe06b [facility] re-evaluate [id number]-0 10/19 10/19 NE Primary 5fe-40ae-b /2014 [facility] n18-5853jy [facility] efbecb [facility] [place] [facility] re-evaluate [id number] 10/19 10/19 NE Primary 85f-44db-a /2014 [facility] bd7-e4e419 [facility] [id number] [facility] re-evaluate [id number] 10/19 10/19 NE Primary 4ff-4507-a /2014 [facility] dc2-9da2de [facility] c84f01 [facility] re-evaluate [id number] 10/19 10/19 NE Primary 2z6-575n-e /2014 [facility] 6cc-u69398 [facility] u6901k [facility] re-evaluate [id number] 10/19 10/19 NE Primary 930-4848-9 /2014 [facility] 7m9-5i9c6d [facility] 5932cf [facility] re-evaluate 9rxqt617-s 10/19 10/19 NE Primary 239-4f01-a /2014 [facility] 3aa-a3ffcc [facility] 3955eb [facility] re-evaluate eryho801-8 10/19 10/19 NE Primary j70-1361-8 /2014 [facility] af5-1b1ad0 [facility] [id number] [facility] [place] [facility] re-evaluate [id number]-k 10/19 10/19 NE Primary a2h-9d6u-q /2014 [facility] 358-oa4247 [facility] 4a2cef [facility] re-evaluate [id number]-c 10/19 10/19 NE Primary 13b-407c-a /2014 [facility] 371-33c61e [facility] e77ce1 [facility] re-evaluate [id number]-8 10/19 10/19 NE Primary dff-4eec-9 /2014 [facility] 101-bcaa14 [facility] e62b88 [facility] re-evaluate [id number]-e 10/19 10/19 NE Primary n7n-7572-j /2014 [facility] alf-c72d76 [facility] f32b71 [facility] re-evaluate qxwrgs5j-m 10/19 10/19 NE Primary 9fb-4648-b /2014 [facility] ed1-4eb9a8 [facility] 8ba94b [facility] re-evaluate [id number] 10/19 10/19 NE [facility] i1v-7f13-9 /2014 [facility] 6q3-yguyl4 [facility] b9a5da [facility] re-evaluate 2fxtm2y3-7 10/19 10/19 NE Primary 162-4f90-a /2014 [facility] 9x8-1164h9 [facility] 98b7ae [facility] re-evaluate [id number] 10/19 10/19 [facility] m49-0kv9-7 /2014 [facility] y4b-0267qe [facility] [id number] [facility] re-evaluate 92cw60ly-b 10/19 10/19 NE Primary 51c-4c6c-b /2014 [facility] ae0-4e4e5a [facility] 1bafb6 [facility] re-evaluate [id number] 10/19 10/19 NE Primary c0y-036u-3 /2014 [facility] 3fb-12e63a [facility] 8dbab5 [facility] re-evaluate [id number]-f 10/19 10/19 NE Primary 991-4607-a /2014 [facility] o8x-3s312c [facility] 26968u [facility] re-evaluate [id number] 10/19 10/19 NE Primary 366-46e8-8 /2014 [facility] 454-88dbaf [facility] 2aade5 [facility] re-evaluate [id number] 10/19 10/19 NE Primary t26-77v1-6 /2014 [facility] l70-9ezt24 [facility] 07e403 [facility] [id number] 11/02 11/02 [facility] f63-5167-1 [facility] 2m2-672321 [facility] [id number] [facility] [id number]-6 11/02 11/02 NE Primary 94f-4077-b /2014 [facility] 659-2p785g [facility] e53a07 [facility] [id number]-f 11/02 11/02 [facility] y79-1781-6 /2014 [facility] 8a5-jjf07q [facility] e873bd [facility] [id number]-[id number] 11/02 11/02 NE Primary 4fc-4700-a /2014 [facility] y0i-264k3i [facility] pja062 [facility] [place] [facility] [id number] 11/02 11/02 [facility] [id number] /2014 [facility] [id number] [facility] [id number] [facility] [place] [facility] [id number] 11/02 11/02 [facility] [id number] /2014 [facility] [id number] [facility] [id number] [facility] [place] [facility] [id number] 11/02 11/02 [facility] [id number] /2014 [facility] [id number] [facility] [id number] [facility] [place] [facility] [id number] 11/02 11/02 [facility] [id number] /2014 [facility] [id number] [facility] [id number] [facility] [place] [facility] [id number] 11/02 11/02 [facility] [id number] [facility] [id number] [facility] [id number] [facility] [place] [facility] [id number] 11/02 11/02 [facility] [id number] /2014 [facility] [id number] [facility] [id number] [facility] [place] [facility] [id number] 11/02 11/02 [facility] [id number]-9 [facility] [id number] [facility] [id number] [facility] [place] [facility] [id number] 11/02 11/02 [facility] [id number] /2014 [facility] [id number] [facility] [id number] [facility] [place] [facility] [id number] 11/02 11/02 [facility] [id number] /2014 [facility] [id number] [facility] [id number] [facility] [place] [facility] [id number] 11/02 11/02 [facility] [id number] /2014 [facility] [id number] [facility] [id number] [facility] [place] [facility] [id number] 11/02 11/02 [facility] [id number] [facility] [id number] [facility] [id number] [facility] [place] [facility] [id number] 11/02 11/02 [facility] [id number] /2014 [facility] [id number] [facility] [id number] [facility] [place] [facility] [id number] 11/02 11/02 [facility] [id number] /2014 [facility] [id number] [facility] [id number] [facility] [place] [facility] [id number] 11/02 11/02 [facility] [id number] /2014 [facility] [id number] [facility] [id number] [facility] [place] [facility] [id number] 11/02 11/02 [facility] [id number] /2014 [facility] [id number] [facility] [id number] [facility] [place] [id number] 11/02 11/02 [facility] 952-44dc-a /[facility]-37850m [facility] [id number] [place] [id number] 11/02 11/02 [facility] 674-4e07-8 /2014 [facility] 6s8-7x18xj [facility] [id number] [place] 6s0v07if-9 11/02 11/02 [facility] 4e7-8z67-d /2014 [facility] 21d-9q1945 [facility] [id number] [place] [facility] [place] [id number]-[id number] 11/03 11/03 [facility] Primary 185-4d75-b /2014 [facility] q33-79f525 [facility] [id number] [place] [facility] [place] [id number] 11/03 11/03 [facility] 3f8-96j5-e /2014 [facility] e63-59x02i [facility] [id number] [place] [facility] [place] [id number] 11/03 11/03 [facility] 6cb-4b72-a /2014 [facility] o20-9723rf [facility] [id number] [facility] [place] [facility] [place] 8zu4sg6c-8 11/03 11/03 [facility] 3o0-0706-m /2014 [facility] x76-jdy40x [facility] [id number] [place] [facility] [place] 8743d51l-7 11/03 11/03 [facility] 1d3-52ek-1 /2014 [facility] ecc-023917 [facility] [id number] [facility] [place] [facility] [place] [id number]-b 11/03 11/03 [facility] 6df-4cf1-9 /2014 [facility] 3a8-9564e8 [facility] [id number] [place] [facility] [id number]-[id number] 11/03 11/03 [facility] fd1-4c99-9 /2014 [facility] w47-rz300u [facility] [id number] [place] [facility] [id number]-q 11/03 11/03 [facility] 3b9-9500-4 /2014 [facility] n75-4u62e7 [facility] [id number] [facility] [place] [facility] [id number]-[id number] 11/03 11/03 [facility] aed-4f1c-a /2014 [facility] 8r5-4wx080 [facility] [id number] [place] [facility] [id number]-[id number] 11/03 11/03 [facility] be2-44ed-b /2014 [facility] 64c-c9d5be [facility] [id number] [place] [facility] [id number]-w 11/03 11/03 [facility] 71e-4c19-b /2014 [facility] z75-u5s6vt [facility] beba57 [place] [facility] [id number]-e 11/03 11/03 [facility] j36-8x37-g /2014 [facility] 7q3-20il1b [facility] fba58a [place] [facility] [id number]-[id number] 11/03 11/03 [facility] aa3-46dc-b /2014 [facility] h97-v75631 [facility] [id number] [facility] [place] [facility] [id number] 11/03 11/03 [facility] 0bf-440c-8 /2014 [facility] 640-94bc2d [facility] [id number] [place] [facility] [id number] 11/03 11/03 [facility] y12-9c8a-1 [facility] 224-2a9f82 [facility] [id number] [place] [facility] 059cmyn4-s 11/03 11/03 [facility] 132-4a2d-8 /2014 [facility] t15-su00s7 [facility] [id number] [facility] [place] [facility] [id number] 11/03 11/03 [facility] 835-4dec-8 /2014 [facility] 962-b8ad6d [facility] [id number] [facility] [place] [facility] [id number] 11/03 11/03 [facility] c15-1v88-p /2014 [facility] 734-c4fd5e [facility] 94b1bc [facility] [place] [facility] fq34pn5f-9 11/03 11/03 [facility] 40b-400b-b /2014 [facility] l31-0r5m81 [facility] [id number] [facility] [place] [facility] 4077hsn7-6 11/03 11/03 [facility] dd6-47a6-b /2014 [facility] cfe-5af22f [facility] [id number] [facility] [place] [facility] [id number]-r 11/03 11/03 [facility] 26f-46e2-8 /2014 [facility] t81-7x6t7z [facility] [id number] [place] [facility] 4z6r5y53-m 11/03 11/03 [facility] m3e-236u-5 /2014 [facility] 076-f563d2 [facility] 7d6e1e [facility] [place] [facility] 7f862014-i 12/23 12/23 [facility] Omeprazole p79-8u36-m /2014 [facility] 3fa-c3e69b [facility] fe08a2 [facility] [place] [facility] 72e43kws-c 12/23 12/23 [facility] Omeprazole 829-4286-9 [facility] 82a-6qv320 [facility] 185a9f [facility] [place] 74316r91-1 12/23 12/23 [facility] Omeprazole 197-4128- [facility] s4z-513647 [facility] [id number] [facility] [place] [facility] [place] 300v1zeu-3 12/23 12/23 [facility] Omeprazole 119-49f0-a /2014 [facility] 084-d6b46c [facility] [id number] [facility] [place] [facility] [place] bl8152sl-p 12/23 12/23 [facility] Omeprazole fbf-4319-9 /2014 [facility] 8cb-3k334q [facility] [id number] [facility] [place] [facility] [place] ft3035p0-6 12/23 12/23 [facility] Omeprazole p5m-463q-6 [facility] ed0-4491ee [facility] 96e0a8 [facility] [place] [facility] [place] 7uf3p119-9 12/23 12/23 [facility] Omeprazole 496-4bd7-8 /2014 [facility] 1db-bba6cf [facility] ee42c9 [facility] [place] [facility] 058650t1-1 12/23 12/23 [facility] Omeprazole cdd-4c97-9 [facility] ec4-566e0b [facility] [id number] [facility] [place] [facility] 83jg7e2e-9 12/23 12/23 [facility] Omeprazole ddb-47dd- [facility] 549-546ceb [facility] [id number] [facility] [place] [facility] 4rss9c7d-3 12/23 12/23 [facility] Omeprazole 95f-43c4- [facility] brodie-0b4fbd [facility] 0839e9 [facility] [place] [facility] lx328lz0-k 12/23 12/23 [facility] Omeprazole 017-44d7-8 /2014 [facility] 1t4-e58079 [facility] [id number] [facility] [place] [facility] 0cl214ha-2 12/23 12/23 [facility] Omeprazole n29-49p2-8 /2014 [facility] 6bb-3f0243 [facility] [id number] [facility] [place] [facility] j59wf518-8 12/23 12/23 [facility] Omeprazole 869-4797-b /2014 [facility] 37b-2f66cb [facility] [id number] [facility] [place] [facility] 0ec1d6x2-t 12/23 12/23 [facility] Omeprazole 0f6-1u58-s /2014 [facility] 8g0-60429p [facility] 42d03d [facility] [place] [facility] [id number] 12/23 12/23 [facility] Omeprazole 59f-4970-9 /2014 [facility] 3x3-f12147 [facility] 9c91e5 [place] [facility] 0l8z84po-9 12/23 12/23 [facility] Omeprazole 602-4ca2-8 /2014 [facility] ec9-68d9c4 [facility] [id number] [facility] [place] [facility] 9s17fb40-q 12/23 12/23 [facility] Omeprazole cca-4c2a-a /2014 [facility] x71-40y478 [facility] c5c78b [place] [facility] 7m45jg3m-3 12/23 12/23 [facility] Omeprazole x24-82al-c /2014 [facility] 45f-7e421y [facility] [id number] [place] [facility] 1efhtge5-4 12/23 12/23 [facility] Omeprazole cb9-465f-9 /2014 [facility] de4-073cbd [facility] 364ebb [facility] [place] [facility] [id number]-p 12/23 12/23 [facility] Omeprazole dfe-4703-a /2014 [facility] 15e-505043 [facility] [id number] [place] 733312m0-t 12/23 12/23 [facility] Omeprazole 848-4102-b /2014 [facility] v32-ma9a96 [facility] [id number] [facility] [place] [facility] 06og4t18-4 12/23 12/23 [facility] Omeprazole 311-4c06-a /2014 [facility] 993-4fc7ac [facility] [id number] [place] poss 6or3ynb1-7 01/15 01/15 [facility] shingles b8c-8fay-g /2014 [facility] t99-nt5158 [facility] 1c1afb [facility] [place] [id number] 01/15 01/15 [facility] shingles 82d-4866-9 /2014 [facility] 212-f81e62 [facility] [id number] [facility] [place] poss 2cxk8bu5-y 01/15 01/15 [facility] Primary shingles cf5-4908-9 /2014 [facility] t2k-9w75j7 [facility] [id number] [facility] [place] poss 0td37v66-4 01/15 01/15 [facility] Primary shingles 4t7-9979-2 /2014 [facility] cad-803a76 [facility] e87c96 [facility] [place] poss ct581jk6-q 01/15 01/15 [facility] Primary shingles 428-4617-a /2014 [facility] 7w9-4o9974 [facility] 95f1bf [facility] [place] poss [id number] 01/15 01/15 [facility] Primary shingles 9af-4022-8 /2014 [facility] z51-01k2u9 [facility] [id number] [facility] [place] poss 7ekp1138-6 01/15 01/15 [facility] shingles 7g6-9s2j-6 /2014 [facility] 118-24708m [facility] 290fbe [facility] [place] poss 75px1804-p 01/15 01/15 [facility] shingles 35d-4f6b-b /2014 [facility] z8r-46o28x [facility] [id number] [facility] [place] poss 3w49sg99-5 01/15 01/15 [facility] shingles ebd-477c-b /2014 [facility] 076-ce8d5f [facility] 00p970 [facility] [place] poss 864ffbcb-7 01/15 01/15 [facility] shingles h08-268p-8 /2014 [facility] ef3-7364b7 [facility] 7a93a2 [facility] [place] poss cp1kk84l-6 01/15 01/15 [facility] Primary shingles 429-42e2-8 /2014 [facility] 8g2-esn139 [facility] 95383j [facility] [place] poss 7i85161m-2 01/15 01/15 [facility] Primary shingles g1o-61co-8 /2014 [facility] 21a-8c0c22 [facility] 88p979 [facility] [place] poss k942i2a9-1 01/15 01/15 [facility] Primary shingles 758-46be-b /2014 [facility] 486-832a7f [facility] [id number] [facility] [place] poss vy0816i6-8 01/15 01/15 [facility] Primary shingles eea-4beb-a /2014 [facility] 1df-92aec1 [facility] 27983y [facility] [place] poss f984tn74-5 01/15 01/15 [facility] Primary shingles 4bd-4e41-b /2014 [facility] z16-20yi5e [facility] 866d4f [facility] [place] poss t6e2n98w-2 01/15 01/15 [facility] Primary shingles 8b5-78w4-4 /2014 [facility] i65-2536wc [facility] 3ccdaa [facility] [place] poss b049974n-7 01/15 01/15 [facility] Primary shingles 0r3-2c0v-h /2014 [facility] 63c-96310u [facility] eecf67 [facility] [place] poss 86na58j7-4 01/15 01/15 [facility] Primary shingles 248-4d28-b /2014 [facility] q62-7s6285 [facility] 92319a [facility] [place] poss 52ap8h8b-2 01/15 01/15 [facility] Primary shingles 0o0-77n1-9 /2014 [facility] 93b-4864ed [facility] [id number] [facility] [place] poss 26869q7x-g 01/15 01/15 [facility] Primary shingles 108-49e6-9 /2014 [facility] 306-f41a7b [facility] 378ad7 [facility] [place] poss 94et342q-3 01/15 01/15 [facility] Primary shingles m0g-6784-z /2014 [facility] a33-2oaev2 [facility] 86080p [facility] [place] poss 35s0213l-s 01/15 01/15 [facility] Primary shingles s61-2x6b-n /2014 [facility] 460-095af3 [facility] [id number] [facility] [place] Ref[place] 36pt99mr-8 01/19 01/19 [facility] meds cb0-43cc-a /2014 [facility] 163-3065a0 [facility] [id number] [facility] [place] Ref[place] f812k575-r 01/19 01/19 [facility] Primary meds 87d-4788-b /2014 [facility] fcb-02bdc1 [facility] [id number] [facility] [place] [facility] 50x1e413-8 01/19 01/19 [facility] meds v14-8699-i /2014 [facility] 6ec-5w649i [facility] 6ee53a [facility] [place] Ref[place] uj9s7g8q-7 01/19 01/19 [facility] Primary meds v67-60f4-3 /2014 [facility] eca-9b4dc4 [facility] [id number] [facility] [place] Ref[facility] [place] 8i433a56-j 01/19 01/19 [facility] meds 6p8-30p1-j /2014 [facility] 8ed-c85d50 [facility] 136b3d [facility] [place] Ref[facility] [place] 9t3k524e-4 01/19 01/19 [facility] meds y5i-534z-4 /2014 [facility] 596-c9d42b [facility] df9f64 [facility] [place] Ref[place] 06085413-9 01/19 01/19 [facility] meds 6l8-582o-k /2014 [facility] 131-87603o [facility] [id number] [facility] [place] [facility] [place] 64tn2m5z-3 01/19 01/19 [facility] Primary meds ac6-4bde-b /2014 [facility] 3bc-7d7cfe [facility] [id number] [facility] [place] Ref[place] 6l2j05u9-i 01/19 01/19 [facility] Primary meds 090-4068-b /2014 [facility] 251-3zc091 [facility] ef0ae8 [facility] [place] Ref[place] 453d7ow6-6 01/19 01/19 [facility] Primary meds 39c-48c3-a /2014 [facility] fdd-66n753 [facility] sq382i [facility] [place] Ref[place] 990evg32-7 01/19 01/19 [facility] Primary meds o21-4cqx-u /2014 [facility] d03-jh5xtx [facility] e09f47 [facility] [place] Ref[place] 5t82v585-l 01/19 01/19 [facility] Primary meds 4x1-7bt0-9 /2014 [facility] 518-w0f162 [facility] 96m561 [facility] [place] Ref[place] 6f3r6928-2 01/19 01/19 [facility] Primary meds 3z8-1891-2 /2014 [facility] 17b-u67941 [facility] [id number] [facility] [place] Ref[place] [id number] 01/19 01/19 [facility] Primary meds ea7-4153-9 /2014 [facility] 497-7j8847 [facility] [id number] [facility] [place] Ref[place] 05pmc2x9-5 01/19 01/19 [facility] Primary meds 109-4c35-9 /2014 [facility] 04c-6kk362 [facility] 1b07dc [facility] [place] Ref[place] 3e16f6fq-4 01/19 01/19 [facility] Primary meds aec-4d0c-a /2014 [facility] 49b-ty3096 [facility] df58f2 [facility] [place] Ref[place] hof266rt-f 01/19 01/19 [facility] Primary meds m13-1uw8-v /2014 [facility] 504-2h3100 [facility] [id number] [facility] [place] [facility] 6zkw8n03-q 01/19 01/19 NE Primary meds 413-4fde-9 /2014 [facility] w71-1ci2kv [facility] [id number] [facility] [place] Ref[place] d8f37dd3-4 01/19 01/19 NE Primary meds 3q9-8177-t /2014 [facility] 96f-56acbc [facility] 00cb2d [facility] [place] [facility] 277rz4go-7 01/19 01/19 [facility] Primary meds a17-2qg4-6 /2014 [facility] 871-8ab5c3 [facility] [id number] [facility] [place] [facility] 5724c5l8-v 01/19 01/19 [facility] Primary meds 36d-4244-8 /2014 [facility] j43-1wi878 [facility] te663z [facility] [place] Ref[place] 0a643g2u-4 01/19 01/19 NE Primary meds 595-4fa4-a /2014 [facility] af5-cbef03 [facility] [id number] [facility] [place] Follow-Up 810kw695-1 02/15 02/15 NE Primary shingles 8h2-5e6o-q /2014 [facility] 359-df87f0 [facility] e92d4b [place] Follow-Up 29t1n6iu-h 02/15 02/15 NE Primary shingles 1h8-6139-f /2014 [facility] 1y9-y215l2 [facility] [id number] [facility] [place] [facility] Follow-Up [id number] 02/15 02/15 NE Primary shingles 362-4222-b /2014 [facility] 286-5e39b8 [facility] 8a56c8 [place] [facility] Follow-Up 87sl1zn2-u 02/15 02/15 [facility] Primary shingles 116-4afd-9 [facility] bed-0q950q [facility] 067ad8 [facility] [place] Follow[facility]Up vulv98dd-b 02/15 02/15 [facility] Primary shingles 575-4eb1-8 /2014 [facility] 759-9dm509 [facility] [id number] [facility] [place] Follow-Up [id number] 02/15 02/15 NE Primary shingles k62-3v63-0 /2014 [facility] lia-563f39 [facility] [id number] [place] Follow-Up udh278b3-t 02/15 02/15 NE Primary shingles 385-4505-a /2014 [facility] 6y2-0kg7g0 [facility] [id number] [facility] [place] Follow-Up 213zl7e2-c 02/15 02/15 NE Primary shingles 191-4fbf-b /2014 [facility] 442-64606v [facility] 190c14 [facility] [place] [facility] Follow-Up [id number] 02/15 02/15 [facility] Primary shingles 9f8-22z5-9 /2014 [facility] 521-47z576 [facility] 7fp210 [facility] [place] [facility] Follow-Up [id number]-7 02/15 02/15 NE Primary shingles 94f-43a2-b /2014 [facility] 5ee-b871be [facility] [id number] [facility] [place] [facility] Follow-Up 5432nv4i-c 02/15 02/15 NE Primary shingles 59e-4ca9-a /2014 [facility] m27-5v4387 [facility] [id number] [facility] [place] [facility] Follow-Up y18m9675-6 02/15 02/15 [facility] Primary shingles -4d75-a /2014 [facility] 209-af5c58 [facility] [id number] [facility] [place] [facility] Follow-Up [id number]-r 02/15 02/15 [facility] Primary shingles 922-488e-9 [facility] 8k5-88866z [facility] [id number] [place] [facility] Follow-Up [id number] 02/15 02/15 [facility] Primary shingles v87-1r6x-3 [facility] 7eb-b05e1d [facility] 0a37ad [facility] [place] [facility] Follow-Up 59515f15-8 02/15 02/15 [place] Primary shingles 9ce-429e- [facility] db0-d0ca6e [facility] ce70dc [facility] [place] [facility] Follow-Up kzivr601-d 02/15 02/15 NE Primary shingles 672-4000-9 /2014 [facility] 4u1-75m615 [facility] [id number] [facility] [place] [facility] Follow-Up [id number] 02/15 02/15 NE Primary shingles o35-6546-4 /2014 [facility] ff0-6m3823 [facility] [id number] [place] Follow-Up 9687k1m3-b 02/15 02/15 [facility] Primary shingles fd9-41f9-8 /2014 [facility] v00-b7025r [facility] cc4fe5 [facility] [place] Follow[place]Up nx3anf36-1 02/15 02/15 NE Primary shingles 6aa-4ce4-8 /2014 [facility] fd2-x86543 [facility] 1e728p [facility] [place] Follow-Up [id number]-z 02/15 02/15 NE Primary shingles 380-4ada- [facility] 30c-273d80 [facility] af3e38 [place] Refill [place] [id number] 03/03 03/03 NE Primary Fosamax 24e-400b-8 /2014 [facility] fba-6d5b57 [facility] [id number] [facility] [place] Refill [place] 607812l4-h 03/03 03/03 [facility] Primary Fosamax 5v0-96g2-8 [facility] 221-a0e4af [facility] 1bcad8 [place] Refill [place] 210428n7-0 03/03 03/03 [facility] Primary Fosamax 918-43b7-a /2014 [facility] cde-9c44df [facility] [id number] [place] Ref[place] 97x7a72y-u 03/03 03/03 [facility] Primary Fosamax 6p7-58mg-j /2014 [facility] df9-3151a1 [facility] d875cd [facility] [place] Refill [facility] w3k04c62-1 03/03 03/03 [facility] Fosamax 36b-4d5a-b /2014 [facility] 7cf-27m097 [facility] [id number] [facility] [place] Ref[facility] [place] 5ta0i924-5 03/03 03/03 [facility] Fosamax 3u1-9084-4 /2014 [facility] 47e-721378 [facility] 284ca7 [facility] [place] Ref[place] [id number] 03/03 03/03 [facility] Fosamax 170-4264-a /2014 [facility] 4ea-ab3f73 [facility] eaa5c0 [facility] [place] Ref[facility] 7j75oi3r-4 03/03 03/03 [facility] Fosamax q1j-12zn-1 /2014 [facility] ef0-a4u918 [facility] 6d06d1 [facility] [place] Ref[facility] s24n12f9-1 03/03 03/03 [facility] Fosamax 35f-49d4-9 /2014 [facility] ef6-939920 [facility] [id number] [facility] [place] Ref[place] 0me11867-7 03/03 03/03 [facility] Fosamax y76-3258-k /2014 [facility] 6d1-i8819r [facility] [id number] [facility] [place] Ref[place] 3836599l-2 03/03 03/03 [facility] Fosamax ada-4142-a /2014 [facility] 07c-7y2071 [facility] [id number] [facility] [place] Ref[facility] 803w08s6-t 03/03 03/03 [facility] Fosamax y21-60u5-w /2014 [facility] 685-0d5d12 [facility] [id number] [facility] [place] Ref[place] 97440q71-4 03/03 03/03 [facility] Primary Fosamax 9y5-74m2-2 /2014 [facility] x23-722m74 [facility] bc7db8 [facility] [place] Ref[facility] o2747dki-2 03/03 03/03 [facility] Primary Fosamax 688-411f-8 /2014 [facility] aae-a41b88 [facility] o9501f [facility] [place] Ref[facility] g84f08s7-0 03/03 03/03 [facility] Primary Fosamax 789-4b4d-8 /2014 [facility] 422-13c4f2 [facility] 9637bf [facility] [place] Ref[facility] 66a0r939-c 03/03 03/03 NE Primary Fosamax b6m-0617-z /2014 [facility] 7f0-005620 [facility] e4c5bd [facility] [place] Ref[facility] 856m99c6-9 03/03 03/03 NE Primary Fosamax r3n-212u-7 /2014 [facility] 9dc-e6088e [facility] d4ac6b [facility] [place] Ref[facility] z80hs74v-1 03/03 03/03 [facility] Primary Fosamax 2b9-4284-5 /2014 [facility] 554-n80111 [facility] [id number] [facility] [place] Ref[facility] 1a484nk0-r 03/03 03/03 [facility] Primary Fosamax 00b-49f5-b /2014 [facility] ad4-5ec88b [facility] 1e8f0d [facility] [place] [facility] Follow-Up [id number]-4 06/04 06/04 NE Primary meds 52f-43fc- /2014 [facility] abd-257e8e [facility] [id number] [place] [facility] Follow-Up cpz6b070-5 06/04 06/04 NE Primary meds 2ae-4e15-9 /2014 [facility] 9de-8a089j [facility] 90757h [facility] [place] [facility] Follow-Up [id number] 06/04 06/04 NE Primary meds 44f-41ca-a /2014 [facility] 5dc-c79f00 [facility] 3fa40a [facility] [place] [facility] Follow-Up as7u2i87-3 06/04 06/04 NE Primary meds ab0-4ce2-b /2014 [facility] 16c-4951c0 [facility] [id number] [facility] [place] [facility] Follow-Up [id number] 06/04 06/04 NE Primary meds fc4-4257-b /2014 [facility] 9h9-25u575 [facility] [id number] [place] [facility] Follow-Up h1ex03d1-h 06/04 06/04 NE Primary meds y93-68q9-9 /2014 [facility] 4p1-k08155 [facility] [id number] [place] [facility] Follow-Up 4lq74pqb-t 06/04 06/04 NE Primary meds fe5-49f4-b /2014 [facility] 5f2-894162 [facility] 6af2bf [facility] [place] [facility] [id number] 06/04 06/04 [facility] Primary meds s9m-0338-6 /2014 [facility] ec5-6b06a7 [facility] [id number] [facility] [place] [facility] [id number] 06/04 06/04 [facility] Primary meds 76b-4582-8 /2014 [facility] 37d-05c6fb [facility] pv973o [facility] [place] [facility] [id number] 06/04 06/04 [facility] Primary meds 25e-403d-8 /2014 [facility] eae-b990b6 [facility] a37d9b [facility] [place] [facility] [id number] 06/04 06/04 [facility] Primary meds db1-4ce0-9 /2014 [facility] r13-9505qf [facility] 18ebd7 [facility] [place] [facility] Follow-Up 753msd71-9 06/04 06/04 NE Primary meds 8p8-457x-b /2014 [facility] 609-92n392 [facility] [id number] [facility] [place] [facility] 9f85ol3w-4 06/04 06/04 [facility] Primary meds af1-44b9-8 /2014 [facility] 0cb-4a36b7 [facility] [id number] [facility] [place] [facility] to2o015k-2 06/04 06/04 [facility] Primary meds cf8-4213-8 /2014 [facility] 8ac-81b8ea [facility] e3c4ca [facility] [place] [facility] 3sy2g1ak-6 06/04 06/04 [facility] Primary meds 7da-4be9-b /2014 [facility] 868-a997e7 [facility] [id number] [facility] [place] [facility] 1520q867-3 06/04 06/04 [facility] Primary meds g22-88on-7 /2014 [facility] k88-oyj300 [facility] e8257r [facility] [place] [facility] b567rf92-n 06/04 06/04 [facility] Primary meds e41-20jn-i /2014 [facility] 9w5-58493c [facility] [id number] [facility] [place] [facility] [id number] 06/04 06/04 [facility] Primary meds 8fd-4ed4-b /2014 [facility] 08d-7c1543 [facility] 81f8fd [facility] [place] Unknown [id number] 06/21 06/21 [facility] Primary 988-4d5f-a /2014 [facility] 1j4-477991 [facility] [id number] [facility] [place] [facility] [id number]-1 06/21 06/21 [facility] Primary 3s9-79j4-v /2014 [facility] bd0-20637z [facility] [id number] [facility] [place] [facility] [id number] 06/21 06/21 [facility] Primary 709-4701-a /2014 [facility] ee4-7bd054 [facility] 2bff36 [facility] [place] [facility] [id number] 06/21 06/21 [facility] Primary 82b-40a4-b /2014 [facility] ad2-38fc24 [facility] [id number] [facility] [place] [facility] [id number] 06/21 06/21 NE Primary 5ec-4182-b /2014 [facility] 271-[id number] [facility] [id number] [facility] [id number] 06/21 06/21 [facility] [id number] /2014 [facility] [id number] [facility] [id number] [facility] [id number] 06/21 06/21 [facility] [id number] /2014 [facility] [id number] [facility] [id number] [facility] [id number] 06/21 06/21 [facility] [id number] /2014 [facility] [id number] [facility] [id number] [facility] [id number] 06/21 06/21 [facility] [id number] /2014 [facility] [id number] [facility] [id number] [facility] [id number] 06/21 06/21 [facility] [id number] /2014 [facility] [id number] [facility] [id number] [id number] 06/21 06/21 [facility] [id number] /2014 [facility] [id number] [facility] [id number] [facility] [id number] 06/21 06/21 [facility] [id number] /2014 [facility] [id number] [facility] [id number] [facility] [id number] 06/21 06/21 [facility] [id number] /2014 [facility] [id number] [facility] [id number] [facility] [id number] 06/21 06/21 [facility] [id number] /2014 [facility] [id number] [facility] [id number] [facility] [id number] 06/21 06/21 [facility] [id number] /2014 [facility] [id number] [facility] [id number] [facility] [id number] 06/21 06/21 [facility] [id number] /2014 [facility] [id number] [facility] [id number] [facility] [id number] 06/21 06/21 [facility] [id number] /2014 [facility] [id number] [facility] [id number] [facility] [id number] 06/21 06/21 [facility] [id number] /2014 [facility] [id number] [facility] [id number] [facility] 1 month [id number] 07/05 07/05 [facility] [id number] /2015 [facility] [id number] [facility] [id number] [facility] 1 month [id number] 07/05 07/05 [facility] [id number] /2015 [facility] [id number] [facility] [id number] [facility] 1 month [id number] 07/05 07/05 [facility] [id number] /2015 [facility] [id number] [facility] [id number] [facility] 1 month [id number] 07/05 07/05 [facility] [id number] /2015 [facility] [id number] [facility] [id number] [facility] 1 month [id number] 07/05 07/05 [facility] [id number] /2015 [facility] [id number] [facility] [id number] [facility] [place] 1 month [id number] 07/05 07/05 [facility] 45b-48c1-9 /2015 [id number] [place] 1 [place] [id number] 07/05 07/05 [facility] Primary q53-2567-6 /2015 [facility] [phone] [facility] dc4a44 [facility] [place] 1 month g1rmv729-y 07/05 07/05 [facility] Primary 044-453f-8 /2015 [facility] 9a4-981h27 [facility] 27d93b [facility] [place] 1 month u54bncrw-m 07/05 07/05 NE Primary 0be-4312-8 /2015 [facility] 739-cx3515 [facility] [id number] [facility] [place] 1 month yd7v3ru3-7 07/05 07/05 NE Primary 3p0-7pae-h /2015 [facility] 33b-fb2fe7 [facility] [id number] [facility] [place] 1 month 95795o17-[id number] 07/05 07/05 NE Primary 1de-4aef-a /2015 [facility] g45-3xxob4 [facility] [id number] [facility] [place] 1 month 5y80v704-1 07/05 07/05 NE Primary 32b-424a-b /2015 [facility] 0cd-d63ab4 [facility] 6b1e10 [facility] [place] 1 month 8d314t19-4 07/05 07/05 NE Primary 298-4b46-8 /2015 [facility] u07-8eepqn [facility] [id number] [place] 1 month 5dvy4me4-6 07/05 07/05 NE Primary e3p-7276-p /2015 [facility] 715-f72252 [facility] [id number] [place] 1 month [id number] 07/05 07/05 NE Primary 343-4baf-8 /2015 [facility] 891-2717ba [facility] [id number] [facility] [place] 1 month 85375gv2-3 07/05 07/05 NE Primary 9db-4ea9-9 /2015 [facility] 7s8-q3959v [facility] [id number] [place] ref[facility] on zf21n6e6-6 08/27 08/27 NE [facility] Levothyroxin c2k-792p-j /2015 [facility] e 11f-890728 [facility] f32c12 [facility] [place] ref[place] on 3r31kyo1-k 08/27 08/27 NE [facility] Levothyroxin 429-4c44-8 /2015 [facility] e 32c-b39030 [facility] [id number] [place] ref[place] d88461o1-1 08/27 08/27 NE [facility] Levothyroxin y31-9t00-p /2015 [facility] e 5r8-9368p1 [facility] [id number] [facility] [place] ref[place] [id number]-i 08/27 08/27 NE [facility] Levothyroxin s80-1213-8 /2015 [facility] e 1x3-i34s08 [facility] 5d2e37 [facility] [place] ref[place] a8c58t5k-y 08/27 08/27 NE [facility] Levothyroxin 6bf-407a-a /2015 [facility] cbd-57fd30 [facility] [id number] [facility] [place] ref[facility] [place] r7b0j169-1 08/27 08/27 NE [facility] Levothyroxin p29-83y7-a /2015 [facility] e h82-786z1q [facility] bfa02e [place] ref[place] fzai6997-a 08/27 08/27 NE [facility] Levothyroxin af2-49d5-b /2015 [facility] e 0x3-734036 [facility] 72232y [place] ref[place] 8cxv05b9-8 08/27 08/27 NE [facility] Levothyroxin 9p2-333n-8 /2015 [facility] e 20f-bfcb16 [facility] tp074v [place] refill on 64012a6h-u 08/27 08/27 NE [facility] Levothyroxin e45-83qt-8 /2015 [facility] e 59b-047164 [facility] [id number] [place] refill on 20ob746w-2 08/27 08/27 NE [facility] Levothyroxin 410-4e27-9 [facility] e 76c-fe0e9f [facility] df88fe [place] [facility] [place] ref[place] ha6k2199-7 08/27 08/27 NE [facility] Levothyroxin 087-49f7-b /2015 [facility] e [phone] [facility] [id number] [place] refill [place] f58qkhy7-p 08/27 08/27 NE Primary Levothyroxin k8e-6106-0 /2015 [facility] b05-319af6 [facility] [id number] [facility] [place] refill [place] p592a2d6-o 08/27 08/27 NE [facility] Levothyroxin u99-1052-s /2015 [facility] e 9ce-1be2e6 [facility] [id number] [facility] [place] ref[place] on 7t8w9658-m 08/27 08/27 NE [facility] Levothyroxin 97c-4304-9 [facility] 3c9-466934 [facility] [id number] [place] [facility] [place] ref[facility] [place] k41br7r6-5 08/27 08/27 NE [facility] Levothyroxin 90b-4b5d-9 [facility] [phone] [facility] [id number] [facility] [place] Refill on m411d6q8-7 10/26 10/26 NE [facility] Viibryd k71-9j8d-k /2015 [facility] o5p-f4z6vo [facility] 8d1c5e [facility] [place] Refill [place] l0g91236-0 10/26 10/26 NE Primary Viibryd s8l-4qph-k /2015 [facility] 399-bd0fc6 [facility] g8c014 [facility] [place] Refill on q04i5991-l 10/26 10/26 NE Primary Viibryd 093-44c1-8 /2015 [facility] x9n-135r9u [facility] [id number] [facility] [place] Refill [place] t59824ir-l 10/26 10/26 NE Primary Viibryd 756-4851-a /2015 [facility] e7e-47i87c [facility] [id number] [facility] [place] Refill on b3188rm2-7 10/26 10/26 NE Primary Viibryd fce-40be-8 /2015 [facility] 6ee-0bf7b1 [facility] 798c36 [facility] [place] Refill on v0w2g109-1 10/26 10/26 NE Primary Viibryd 0p9-46e8-4 /2015 [facility] 68a-736f0d [facility] [id number] [facility] [place] Refill on l784k31m-u 10/26 10/26 NE Primary Viibryd 479-4b5d-b /2015 [facility] 6ff-f499ca [facility] [id number] [facility] [place] Refill on t1r6h3d5-7 10/26 10/26 NE [facility] Viibryd u28-0403-1 /2015 [facility] 38d-x87355 [facility] [id number] [facility] [place] Refill on 7q212539-8 10/26 10/26 NE Primary Viibryd 0d9-88b4-v /2015 [facility] s95-as6h67 [facility] e48cd9 [facility] [place] Refill on 78667513-s 10/26 10/26 NE Primary Viibryd 134-4a28-8 /2015 [facility] 661-2c01ca [facility] 1ce20a [facility] [place] Refill on 005qw938-8 10/26 10/26 NE Primary Viibryd e06-100u-y /2015 [facility] 88e-2247da [facility] [id number] [facility] [place] Refill [place] ye401084-8 10/26 10/26 NE [facility] Viibryd 2a1-2tk1-2 /2015 [facility] 685-12aa48 [facility] [id number] [facility] [place] Refill on [id number] 10/26 10/26 NE Primary Viibryd 9m7-64a1-8 /2015 [facility] ab7-84fbb8 [facility] d25a84 [facility] [place] Refill on ahb788b6-j 10/26 10/26 NE Primary Viibryd f56-9l7w-7 /2015 [facility] q6o-6dl090 [facility] 0fafd4 [facility] [place] ref[facility] [place] 8vj2149k-5 01/06 01/06 [facility] Xanax z08-1654-0 /2015 [facility] ddc-a36feb [facility] [id number] [facility] [place] ref[place] on 8kd2n6lh-c 01/06 01/06 [facility] Xanax 166-47dd-b /2015 [facility] 0c4-d5e6g6 [facility] 856e64 [facility] [place] ref[place] c3h1r7l5-w 01/06 01/06 [facility] Xanax g36-9xz0-6 /2015 [facility] 8de-aee1be [facility] 780de5 [facility] [place] ref[place] on 24v81747-4 01/06 01/06 NE Primary Xanax eaa-4b43-b /2015 [facility] 610-668055 [facility] [id number] [facility] [place] ref[facility] [place] t0c42s27-4 01/06 01/06 [facility] Xanax 4c4-184l-z /2015 [facility] 4n9-17h262 [facility] 82e48c [facility] [place] refill on 0m9o81e3-r 01/06 01/06 NE [facility] Xanax y92-33d5-9 /2015 [facility] 4ba-be12ab [facility] [id number] [facility] [place] ref[place] bz51f5rc-1 01/06 01/06 [facility] Xanax 919-4895-9 /2015 [facility] k3k-1j34zi [facility] 0qb579 [facility] [place] ref[place] uw5h441k-5 01/06 01/06 [facility] Xanax 0p1-14n1-8 /2015 [facility] 005-1aa2d6 [facility] [id number] [facility] [place] ref[place] 8h9r87h5-3 01/06 01/06 [facility] Xanax 1l3-8988-m /2015 [facility] 9a7-em1403 [facility] 752aa0 [facility] [place] ref[place] on 697f19v1-8 01/06 01/06 [facility] Xanax w93-4673-t /2015 [facility] 5o6-0a72h3 [facility] [id number] [facility] [place] ref[place] on 6bhht9a4-4 01/06 01/06 [facility] Xanax 528-46e9-b /2015 [facility] da1-a0af0e [facility] 50c99a [facility] [place] refill on 890655jb-3 01/06 01/06 [facility] Xanax fde-4395-8 /2015 [facility] aaf-5fd83d [facility] a2fabe [facility] [place] ref[place] on 38s53ud6-y 01/06 01/06 [facility] Xanax x41-948z-2 /2015 [facility] dfe-bc86d4 [facility] 9a21ee [facility] [place] Refill on 10cd01te-8 01/09 01/09 [facility] Omeprazole 4h3-2jpb-y /2015 [facility] 103-eeeace [facility] [id number] [facility] [place] Ref[place] skk71922-e 01/09 01/09 [facility] Omeprazole q45-48uv-i /2015 [facility] 4u8-27iy3a [facility] [id number] [facility] [place] Ref[place] on 7155t652-9 01/09 01/09 NE Primary Omeprazole 4g8-945x-q /2015 [facility] 5x1-7qv67q [facility] pjg794 [facility] [place] Ref[facility] on 7w834e1d-0 01/09 01/09 [facility] Omeprazole 3z3-1228-1 /2015 [facility] 64f-8dabcd [facility] e714a6 [facility] [place] Refill on 6qk65fi7-4 01/09 01/09 NE Primary Omeprazole 900-4518-8 /2015 [facility] o80-eks15p [facility] 7adc97 [facility] [place] Refill on 206f7h34-q 01/09 01/09 NE Primary Omeprazole ee4-4553-8 /2015 [facility] 481-bd5a4f [facility] e12b96 [facility] [place] Refill on u6a91308-2 01/09 01/09 NE Primary Omeprazole 3ed-44e4-b /2015 [facility] 596-666427 [facility] qv0244 [facility] [place] Refill on 10bmq500-a 01/09 01/09 NE Primary Omeprazole 96d-4cd4-a /2015 [facility] s2m-936632 [facility] bdbd54 [facility] [place] Refill on 64fsv164-9 01/09 01/09 NE Primary Omeprazole 8fc-4844-b /2015 [facility] dd5-a9ac2a [facility] [id number] [facility] [place] Refill on 7hl53nhh-l 01/09 01/09 NE Primary Omeprazole 18e-4744-8 /2015 [facility] 701-72c3dd [facility] 754dbe [facility] [place] Refill on 58856j2j-1 01/09 01/09 NE Primary Omeprazole 44f-4859-b /2015 [facility] 3ed-5u3859 [facility] 0c5500 [facility] [place] Refill on 6248s03p-g 01/09 01/09 NE Primary Omeprazole z5t-0a81-u /2015 P [facility] 038-e31e46 [facility] b52bff [facility] [place] Refill/Denie 63v9hy2x-2 02/01 02/01 NE Primary d - Fosamax x8w-3x85-y /2015 [facility] 33e-73752c [facility] 6949db [facility] [place] Refill/Denie c2l84x32-f 02/01 02/01 NE Primary d - Fosamax 92a-4eba-b /2015 [facility] h3m-053am4 [facility] 7db36a [facility] [place] Refill/Denie 79yb1ns3-6 02/01 02/01 NE Primary d - Fosamax 6cd-452d-9 /2015 [facility] 2a2-41cq9p [facility] [id number] [facility] [place] Refill/Denie 6z66e1i6-2 02/01 02/01 NE Primary d - Fosamax 235-4d36-a /2015 [facility] 188-1m298b [facility] f0e2f8 [facility] [place] Refill/Denie w3566d12-v 02/01 02/01 NE Primary d - Fosamax q48-03l9-m /2015 [facility] 79b-n1233b [facility] [id number] [facility] [place] Refill/Denie 92g8mm8j-3 02/01 02/01 NE Primary d - Fosamax l2f-4828-9 /2015 [facility] 1u3-v5737m [facility] a39f8f [facility] [place] Refill/Denie iy1k629e-1 02/01 02/01 NE Primary d - Fosamax 761-4845-9 /2015 [facility] 29c-5e8d85 [facility] cc2c2c [facility] [place] Refill/Denie uvy22370-3 02/01 02/01 NE Primary d - Fosamax 349-4613-9 /2015 [facility] a5l-co1yh4 [facility] ssi583 [facility] [place] Refill/Denie 0p06nv63-2 02/01 02/01 NE Primary d - Fosamax v06-5503-v /2015 [facility] 335-1k0375 [facility] af3a0d [facility] [place] Refill/Denie 9a411804-0 02/01 02/01 NE Primary d - Fosamax 1k6-81f5-3 /2015 [facility] q64-22n124 [facility] b38d6b [facility] [place] Refill/Denie 836439kk-5 02/01 02/01 NE Primary d - Fosamax 4db-4eb4-b /2015 [facility] 81c-2l828u [facility] [id number] [facility] [place] refill meds 8736089n-t 02/08 02/08 NE Primary 258-4462-9 /2015 [facility] 85b-y15030 [facility] 302a6c [place] ref[place] [facility] v0bsig32-7 02/08 02/08 NE Primary 6a3-9j2o-4 /2015 [facility] 3l8-26x3s7 [facility] a91e86 [facility] [place] refill meds 417wd602-1 02/08 02/08 NE Primary 86c-46bb-8 /2015 [facility] 3df-8d4bb3 [facility] f42da9 [facility] [place] ref[place] [facility]s p00j6a4y-9 02/08 02/08 NE Primary 973-4bff-b /2015 [facility] f3v-44p345 [facility] d637db [place] refill meds 93248663-0 02/08 02/08 NE Primary 546-4efe-8 /2015 [facility] 734-8cf5b3 [facility] f2e9e9 [facility] [place] ref[place] meds 408h5t10-f 02/08 02/08 NE Primary y3s-2i64-r /2015 [facility] [phone] [facility] [id number] [place] ref[place] [facility]s 1qm4a0e0-c 02/08 02/08 NE Primary i8q-3t94-u /2015 [facility] 6l9-6l6p07 [facility] [id number] [place] ref[place] [facility]s g2kzv53a-d 02/08 02/08 NE Primary k83-23su-4 /2015 [facility] e14-keb020 [facility] aa5f39 [facility] [place] refill [place]s u1790242-k 02/08 02/08 NE Primary 036-42f8-a /2015 [facility] l08-28698r [facility] [id number] [facility] [place] refill [facility]s 4m659904-6 02/08 02/08 NE Primary t31-163k-e /2015 [facility] o12-d0c05g [facility] g2k458 [facility] [place] blood 45288z2w-2 03/21 03/21 NE Primary pressure v92-6urp-2 /2015 [facility] w6x-8yxr07 [facility] 1d3e65 [facility] [place] blood 77eh8h02-i 03/21 03/21 NE Primary pressure ddc-4565-b /2015 [facility] 982-w1k223 [facility] 8669fb [facility] [place] blood 5g9m713x-2 03/21 03/21 NE Primary pressure j00-2288-5 /2015 [facility] cea-6036d0 [facility] 6u6715 [facility] [place] blood 859fn41g-6 03/21 03/21 NE Primary pressure d28-6808-7 /2015 [facility] 4z1-44o0ok [facility] b6c5f7 [facility] [place] blood 38w0xu11-v 03/21 03/21 NE Primary pressure j83-758l-l /2015 [facility] 8s9-20q9n5 [facility] dd2cb6 [facility] [place] blood 1u416p04-f 03/21 03/21 NE Primary pressure ff5-4558-b /2015 [facility] a6o-28kbj0 [facility] 4m5798 [facility] [place] blood 97437j22-5 03/21 03/21 NE Primary pressure 43c-46f6-9 /2015 [facility] fea-5449da [facility] abd8df [facility] [place] blood 8656xc41-9 03/21 03/21 NE Primary pressure e71-7p46-9 /2015 [facility] 310-047d73 [facility] dq1229 [place] [facility] [place] blood 266ml39y-8 03/21 03/21 NE Primary pressure 4ec-4b65-a /2015 [facility] a90-0954jx [facility] aa35a6 [place] Follow-Up 1 fr9095t4-r 04/20 04/20 NE Primary month 8x7-993m-0 [facility] t2f-l1y760 [facility] 8bf82e [place] [facility] [place] Follow-Up 1 i7hl5p85-a 04/20 04/20 NE Primary month 928-4338-8 [facility] 1z4-2p85ii [facility] [id number] [place] Follow-Up 1 92h4h7o7-m 04/20 04/20 NE Primary month ceb-4daa- [facility] 27b-11936v [facility] fabfee [facility] Follow-Up 1 9ox1589t-2 04/20 04/20 NE Primary month 5ab-45c1-9 [facility] ba9-898499 [facility] [id number] [place] Follow-Up 1 l6c05994-7 04/20 04/20 NE Primary month 7ca-42dd- [facility] fdb-697445 [facility] f236bf [facility] Follow-Up 1 514027n3-2 04/20 04/20 NE Primary month a55-57rk-r /2015 [facility] 951-20b53c [facility] cb0e34 [facility] [place] Follow-Up 1 1z17zsx9-4 04/20 04/20 NE Primary month d43-1119-0 /2015 [facility] 5f5-14591t [facility] [id number] [place] Follow-Up 1 k537610g-3 04/20 04/20 NE Primary month f47-205w-i /2015 [facility] 34a-dcd6fc [facility] a6ef77 [place] [facility] follow up bp 3ja57gof-t 06/01 06/01 NE Primary meds 77e-4909- [facility] x94-043695 [facility] 1e62b1 [facility] [place] follow up bp 64019329-6 06/01 06/01 NE Primary meds 112-4511-b /2015 [facility] k0b-9em566 [facility] 5c54ef [place] follow up bp 17s72368-0 06/01 06/01 NE Primary meds cca-4704-8 /2015 [facility] 570-175fd3 [facility] 9d8a38 [facility] [place] follow [place] bp 94929iz5-3 06/01 06/01 NE Primary meds 26c-4123-a /2015 [facility] 5m2-4k42ox [facility] 7a2c1e [place] follow [place] bp 0gdzcg6h-e 06/01 06/01 NE Primary meds 4bd-480a-8 /2015 [facility] u48-14n156 [facility] fecd3a [place] follow up bp 2x7067pp-7 06/01 06/01 NE Primary meds 1p3-5211-j /2015 [facility] 474-2337a6 [facility] [id number] [place] follow up bp 2842tj7w-6 06/01 06/01 NE Primary meds fb0-4ba1-8 /2015 [facility] 74c-adeffc [facility] [id number] [place] Refill - 2k54c482-4 06/22 06/22 N E Primary Levothyroxin 7bb-4c51-9 /2015 Primary Care e 8t9-v51dze [facility] [id number] [facility] [place] Refill - 66n9cfc3-2 06/22 06/22 N E Primary Levothyroxin q45-02to-t /2015 Primary Care e h7v-o59523 [facility] f213e7 [facility] [place] Refill - m538148l-1 06/22 06/22 N E Primary Levothyroxin 8v5-075x-r /2015 Primary Care e 356-8becba [facility] hv026p [facility] [place] Refill - u3956p6r-c 06/22 06/22 N E Primary Levothyroxin 4q2-6579-3 /2015 Primary [facility] e p89-438581 [facility] ffedea [facility] [place] Refill - t466k6u6-1 06/22 06/22 N E Primary Levothyroxin t5j-5gjj-8 /2015 Primary Care e j15-6401bh [facility] [id number] [facility] [place] Refill - u3kl67s1-h 06/22 06/22 N E Primary Levothyroxin s8r-9518-3 /2015 Primary Care e 8ca-x56655 [facility] 008e32 [facility] [place] Unknown 85wcfsa2-3 07/19 07/19 NE Primary 02b-4206-b /2016 [facility] 5ea-ec45fd [facility] 92cede [place] Unknown 0o68871g-4 07/19 07/19 NE Primary 7ed-4fca-a /2016 [facility] n2i-c40jz0 [facility] 24f85d [facility] [place] Unknown 4h4b4484-6 07/19 07/19 NE Primary 8cd-492b- [facility] 853-p97603 [facility] 81abf6 [facility] [place] Unknown 1hq9im41-y 07/19 07/19 NE Primary l46-7442-1 [facility] b7r-74kob2 [facility] 2a12ac [facility] [place] Unknown 6f89ocyh-k 07/19 07/19 NE Primary 448-4cdb- [facility] 622-kb6902 [facility] 7376da [facility] [place] Refill - k2bv052g-g 08/11 08/11 N E Primary Omeprazole 73f-4286-a /2016 [facility] 0cf-5zp136 [facility] ae8a6e [facility] [place] Refill - 8852d166-9 08/11 08/11 N E Primary Omeprazole cf4-4e1a-b /2016 [facility] m89-8ps1th [facility] [id number] [facility] [place] Refill - a05f9753-9 08/11 08/11 N E Primary Omeprazole 165-41c4- [facility] 58f-2c94bd [facility] 6t390r [facility] [place] Refill - 189ls258-9 08/11 08/11 N E Primary Omeprazole 2e4-84bx-7 [facility] 3q5-505d15 [facility] 7o1037 [facility] [place] Unknown op84829n-7 08/16 08/16 NE Primary 2s4-28be-0 /2016 [facility] e83-j035u9 [facility] 68ff8f [facility] [place] Unknown 627255pd-l 08/16 08/16 NE Primary ed3-4e29-a /2016 [facility] v3s-7a0b69 [facility] [id number] [facility] [place] Unknown 05qsn65o-0 08/16 08/16 NE Primary cd3-4f30-b /2016 [facility] 1eb-dbeba2 [facility] 12ef2b [facility] [place] Refill - 795818mb-7 08/18 08/18 N E Primary Edarbi b31-982n-2 /2016 [facility] 21e-8a7b2d [facility] 5da7a2 [facility] [place] Refill - 21ao9k67-5 08/18 08/18 N E Primary Edarbi g22-75vx-3 /2016 [facility] 0ff-e10fcb [facility] [id number] [facility] [place] Refill - i605459y-8 08/29 08/29 N E Primary Edarbi ae2-44d7-a /2016 [facility] [phone] [facility] c5e15c [facility] , [place] [facility] Outpatient [id number] Philip 05/17 05/17 Discharge BETHANY Roper /2016 d Surgical [facility] Outpatient [id number] Philip 05/17 05/17 [facility] Osito Roper /2016 Surgical [facility] Inpatient [id number] Leo 04/07 04/09 Active Ernie /2018 Neto swanson MD [facility] Inpatient [id number] Leo 04/07 04/09 [facility] Osito Klein /2018 Surgical [facility] Preadmit [id number] Leo Active Ernie swanson MD [facility] Procedures Procedure Code Date Perfomer Comments Source Excision, [id number] 09/25/2013 [facility] neuroma, single, each Joe nagy Fasciotomy 83.14 09/25/2013 [facility] Fasciotomy, foot 42573 09/25/2013 Surgi pooja and/or toe [facility] Other excision or 04.07 09/25/2013 Surg ica 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 [facility] 28543 09/25/2013 Surgical examination, chest, 2 Hos pital views, frontal and [place] od lateral; ACL band replacement S urgical [facility] ankle - right [facility] Appendectomy 47.0 [facility] bunion right foot Surg [facility] Cholecystectomy [id number] [facility] gastro sleeve [facility] Hysterectomy [id number] [facility] left total hip [facility] right cataract [facility] Tonsillectomy [id number] [facility] Assessment and Plan No Data Provided [...]
--- OUTSIDE RECORDS SUMMARY | 2020-07-15 15:38 | XMS REPORT | Continuity of Care Document ---
:1955 Author Organization [facility] t Address [address] [place] [address] Care Team Providers Name Role Phone JORGITO [...] osteoarthr it y of itis of itis [facility] both both Physici shoulders shoulders ans Hip pain, Hip pain, Problem Active Uni vers bilateral bilateral ity of [place] [facility] ans Arthritis Arthritis Problem Active Uni vers of right of right ity of hip hip [place] Physici ans Primary Primary Problem Active Univers osteoarthr osteoarthr it y of itis of itis [facility] both knees both knees Ph ysici ans Primary Primary Problem Active Univers osteoarthr osteoarthr it y of itis of [facility] [place] left hip left hip Physic i ans 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 [facility]y of [place] Physici ans Status Status Problem Active Univers [...] 2013-09-27 Memor ia replux 04:01:41 l acid [place] replux Active Problem 09/27/2013 [facility] DIABETES Problem Active 2013-09-27 Mem oria MELLITUS 04:01:41 l DIABETES [place] MELLITUS Active Problem 09/27/2013 [facility] right foot Problem Active 2013-09-27 M emoria pain 04:01:41 l right [place] foot pain Active Problem 09/27/2013 [facility] Acid Problem Active 2019-04-11 Memor ia reflux 04:00:46 l (finding) Acid [place] reflux (finding) Active Problem 04/11/2019 [facility] Depressive Problem Active 2019-04-11 M emoria disorder 04:00:46 l (disorder) [place] Depressive disorder (disorder) Active Problem 04/11/2019 [facility] Essential Problem Active 2019-04-11 Va moria hypertensi 04:00:46 l on [place] (disorder) Essential hypertensi on (disorder) Active Problem 04/11/2019 [facility] Hyperlipid Problem Active 2019-04-11 M emoria emia 04:00:46 l (disorder) [place] Hyperlipid emia (disorder) Active Problem 04/11/2019 [facility] Hypothyroi Problem Active 2019-04-11 M emoria dism 04:00:46 l (disorder) [place] Hypothyroi dism (disorder) Active Problem 04/11/2019 [facility] SPI right foot Problem Active 2019-04-11 M emoria pain(Confi 04:00:46 l rmed) right [place] foot pain(Confi rmed) Active Problem 04/11/2019 [facility] [...] 2019-01-11 Me moria deficiency 02:45:02 l Vitamin [place] D deficiency Active Problem 01/11/2019 [facility] Adjustment Problem Active 2019-01-11 M emoria disorder 02:45:02 l with [place] depressed Adjustment mood disorder with depressed mood Active Problem 01/11/2019 [facility] Morbid Problem Active 2019-01-11 Memor ia (severe) 02:45:02 l obesity Morbid [place] due to (severe) excess obesity calories due [...] Active 2019-01-11 M emoria reflux 02:45:02 l [place] Esophageal reflux Active Problem [facility]2019 [facility] Memor ia (osteoarth 02:45:02 l ritis) OA [place] (osteoarth ritis) Active Problem 01/11/2019 [facility] Memor ia specified 02:45:02 l diabetes Other [place] mellitus specified without diabetes complicati mellitus ons [...] Memor ia chronic 02:45:02 l pain Other [place] chronic pain Active Problem [facility]11/2019 [facility] Memor ia insufficie 02:45:02 l ncy Venous [place] insufficie ncy Active Problem 01/11/2019 [facility] Screening Diagnosis Active 2017-03-18 Memoria for 03:01:40 l osteoporos [place] is Screening for osteoporos is Active Diagnosis 03/18/2017 [facility] Dysuria Diagnosis Active 2018-10-02 Me moria 02:46:01 l Dysuria [place] Active Diagnosis 10/02/2018 [facility] [...] M emoria itis of 02:45:02 l both [place] knees, Osteoarthr unspecifie itis of d both osteoarthr knees, itis type unspecifie d osteoarthr itis type Active Problem 01/11/2019 [facility] Drug-induc Diagnosis Active 2018-10-02 Memoria ed 02:46:01 l constipati [place] on Drug-induc ed constipati on Active Diagnosis 10/02/2018 [facility] Pain in Diagnosis Active 2017-12-29 Me moria left knee 02:47:22 l Pain in [place] left knee Active Diagnosis 12/29/2017 [facility] l disease 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 angina pectoris Active [...] 2018-10-02 Memoria of lumbar 02:46:01 l spine [place] Osteopenia of lumbar spine Active Diagnosis 10/02/2018 [facility] Suicide Diagnosis Active 2017-12-08 Me moria attempt 02:46:44 l Suicide [place] attempt Active Diagnosis 12/08/2017 [facility] Aspiration Diagnosis Active 2017-11-22 Memoria pneumonia 02:47:28 l due to [place] vomit, Aspiration unspecifie pneumonia d due to laterality vomit, , unspecifie unspecifie d d part of laterality lung , unspecifie d part of lung Active Diagnosis 11/22/2017 [facility] Adjustment Diagnosis Active 2018-02-11 Memoria insomnia 02:45:25 l [place] Adjustment insomnia Active Diagnosis 02/11/2018 [facility] Other Diagnosis Active 2017-11-22 Mem oria constipati 02:47:28 l on Other [place] constipati on Active Diagnosis 11/22/2017 [facility] Urge Problem Active 2019-01-11 Memor ia incontinen 02:45:02 l ce of Urge [place] urine incontinen ce of urine Active Problem 01/11/2019 [facility] PAD Problem Active 2019-01-11 Memor ia (periphera 02:45:02 l l artery PAD [place] disease) (periphera l artery disease) Active Problem 01/11/2019 [facility] Pain in Diagnosis Active 2017-12-29 Me moria right knee 02:47:22 l Pain in [place] right knee Active Diagnosis 12/29/2017 [facility] Hand, foot Diagnosis Active 2017-09-26 Memoria and mouth 02:46:16 l disease Hand, [place] foot and mouth disease Active Diagnosis 09/26/2017 [facility] NERY Problem Active 2019-01-11 Memor ia (obstructi 02:45:02 l ve sleep NERY [place] apnea) (obstructi ve sleep apnea) Active Problem 01/11/2019 [facility] Spondylosi Diagnosis Active 2018-02-23 Memoria s of 02:46:15 l lumbosacra [place] l region Spondylosi without s of myelopathy lumbosacra or l region radiculopa without thy myelopathy or radiculopa thy Active Diagnosis 02/23/2018 [facility] Unspecifie Problem Active 2015-06-30 M emoria d vitamin 04:04:16 l D [place] deficiency Unspecifie d vitamin D deficiency Active Problem 06/30/2015 [facility] Mixed Problem Active 2015-06-30 Memor ia hyperlipid 04:04:16 l emia Mixed [place] hyperlipid emia Active Problem 06/30/2015 [facility] M emoria ce Female 04:04:16 l stress [place] incontinen ce Female stress Active Problem 06/30/2015 [...] 2015-06-30 Memor ia obesity 04:04:16 l Morbid [place] obesity Active Problem 06/30/2015 [facility] Hypertensi Problem Active 2015-06-30 M emoria on benign 04:04:16 l [place] Hypertensi on benign Active Problem 06/30/2015 NE [...] Mem oria esophagiti 02:49:38 l s Reflux [place] esophagiti s Active Diagnosis 12/31/2013 [facility] Allergic Diagnosis Active 2013-12-31 M emoria rhinitis 02:49:38 l due to Allergic [place] pollen rhinitis due to pollen Active Diagnosis 12/31/2013 [facility] Anxiety Diagnosis Active 2014-03-31 Me moria 02:52:54 l Anxiety [place] Active Diagnosis 03/31/2014 [facility] Cervicalgi Diagnosis Active 2015-01-21 Memoria a 03:03:01 l [place] Cervicalgi a Active Diagnosis 01/21/2015 [facility] Osteopenia Diagnosis Active 2015-02-18 Memoria 02:58:16 l [place] Osteopenia Active Diagnosis 02/18/2015 [facility] Urinary Diagnosis Active 2014-05-23 Me moria frequency 04:03:32 l Urinary [place] frequency Active Diagnosis 05/23/2014 [facility] Immunizati Diagnosis Active 2014-03-31 Memoria on 02:52:54 l counseling [place] Immunizati on counseling Active Diagnosis 03/31/2014 [facility] Flu Diagnosis Active 2014-03-31 Mem oria vaccine 02:52:54 l need Flu [place] vaccine need Active Diagnosis 03/31/2014 [facility] [...] Active 2014-10-10 Memoria herpes 02:57:43 l zoster [place] infection Geniculate herpes zoster infection Active Diagnosis 10/10/2014 [facility] Acute Diagnosis Active 2014-08-03 Mem oria bronchitis 03:49:49 l Acute [place] bronchitis Active Diagnosis 08/03/2014 [facility] Mem oria disorders 04:04:16 l of Other [place] autonomic disorders nervous of system autonomic nervous [...] Active 2015-07-08 Me moria 04:01:47 l Fatigue [place] Active Diagnosis 07/08/2015 [facility] [...] Diagnosis Active 2016-03-30 Memoria edema 03:00:45 l [place] Localized edema Active Diagnosis 03/30/2016 [facility] Stress Diagnosis Active 2016-03-30 Mem oria incontinen 03:00:45 l ce Stress [place] (female) incontinen (male) ce (female) (male) Active Diagnosis 03/30/2016 [facility] Obstructiv Diagnosis Active 2016-03-30 Memoria e sleep 03:00:45 l apnea [place] (adult) Obstructiv (pediatric e sleep ) apnea (adult) (pediatric ) Active Diagnosis 03/30/2016 [facility] Herpes Diagnosis Active 2016-05-04 Mem oria zoster 03:05:19 l without Herpes [place] complicati zoster on without complicati on Active [...] 2018-04-13 Mem oria screening 02:46:48 l Breast [place] screening Active Diagnosis 04/13/2018 [facility] Unilateral Problem 2019-2019-04-11 2019-04-11 Memoria primary 0-07 04:00:46 04:00:46 l osteoarthr 05:00: [place] itis, left Unilateral 00 knee primary osteoarthr itis, left knee 04/07/2019 04/11/2019 [facility] Other Problem 2016-2017-05-19 2017-05-19 M emoria enthesopat 07-17 05:01:44 05:01:44 l hy of Other 06:00: [place] right foot enthesopat 00 hy of right foot 05/17/2017 05/19/2017 [facility] Allergies, Adverse Reactions, Alerts Allergy Allergy Status Severity Reaction(s) Onset Inactive Treating Comm ents Source Name Type Date Date Clinician sulfa sulfa Active Info Not 2017-07 Memoria Available 0-11 l 00:00: [place] 00 Bactrim drug Active [facility] allergy [facility] [place] [facility] sulfa drug Active [facility] [place] [facility] Bactrim Bactrim Active Memoria l [place] sulfamet sulfamet Active Memori a hoxazole hoxazole l [place] sulfa sulfa Active Memoria drugs drugs l [place] Family History Family Member Diagnosis Comments Start [...] Source Social History 2013-09-19 18:23:40 2013-09-19 18:23:40 [facility] Medications Ordered Filled Start Stop Current Ordering [...] Me moria 0-08 caps, l 14:00: Cap-EC, [place] 00 Oral, Daily, first dose 04/08/19 9:00:00 [...] 0-07 tabs, Tab, l 19:47: Oral, QID [place] 00 PRN for anxiety, first dose 04/07/19 14:47:00 CDT, Patient's Own Meds Acetaminoph 2018-07 No Notes: Max Memoria en 325 MG / 0-07 4gm l Hydrocodone 19:47: acetaminop [place] Bitartrate 00 hen in 24 10 MG Oral hours Tablet [[place] 10/325] Acetaminoph 2018-07 No Notes: Max Memoria en 325 MG / 0-07 4gm l Hydrocodone 19:47: acetaminop [place] Bitartrate 00 hen in 24 7.5 MG Oral hours Tablet [[place] 7.5/325] Naloxone 2018-07 No 0.4 mg = 1 Mem oria 0-07 mL, l 19:43: Injection, [place] 00 IV Push, q2min PRN for other (see comment), first dose 04/07/19 14:43:00 CDT Benadryl 2018-07 No 25 mg = Memori a 0-07 0.5 mL, l 19:43: Injection, [place] 00 IM, q6hr PRN for itching, first dose 04/07/19 14:43:00 CDT Morphine 2018-07 No 30 mL, TOUR AGENT Mem oria 0-07 Dose (mg): l 19:43: 1, Lockout [place] 00 Interval (min): 5, Limit Amount (mg): 5, Limit Period (hr): 1, Continuous Rate (mg/hr): 0, Loading Dose (mg): 2, RN Adm Bolus (mg): 1, Bolus Dose Lockout (hr): 1, IV, TOUR AGENT, start date 04/07/19 14:43:00 CDT Zofran ODT 2018-07 No 4 mg = 1 Mem oria 0-07 tabs, l 19:43: Tab-Dis, [place] 00 Oral, q6hr PRN for nausea/vom iting, first dose 04/07/19 14:43:00 CDT Bisacodyl 2018-07 No 10 mg = 1 Mem oria 0-07 supp, l 19:43: Supp, [place], [place] 00 Daily PRN for constipati on, first dose 04/07/19 14:43:00 CDT promethazin 2018-07 No 12.5 mg, Me moria e IVPB 0-07 IV l 19:43: Piggyback, [place] 00 q4hr PRN for nausea/vom iting, infuse over 15 minutes, first dose 04/07/19 14:43:00 CDT Temazepam 2018-07 No 15 mg = 1 Mem oria 0-07 caps, Cap, l 19:43: Oral, Once a day (at bedtime) PRN for sleep, first dose 04/07/19 14:43:00 CDT Fleet Enema 2018-07 No 133 mL, Mem oria 0-07 Enema, [place], l 19:43: Once PRN [place] 00 for constipati on, first dose 04/07/19 14:43:00 CDT Milk of 2018-07 No 30 mL, Memoria Magnesia 0-07 Susp, l 19:43: Oral, qHS [place] 00 PRN for constipati on, first dose [...] CDT, Change rate to 45ml/hr if using TOUR AGENT or convert to Saline Lock Demerol HCl [...] e IVPB 0-07 IV l 18:17: Piggyback, [place] Once PRN for nausea/vom iting, infuse over [...] Me moria 0-07 mL, l 17:38: Injection, [place] 00 IV, Once, first dose 04/07/19 12:38:00 CDT, stop date 04/07/19 12:38:00 CDT glycopyrrol 2018-07 No 0.2 mg = 1 Memoria ate 0-07 mL, l 17:38: Injection, [place] 00 IV, Once, first dose 04/07/19 12:38:00 CDT, stop date 04/07/19 12:38:00 CDT propofol 2018- No 50 mg = 5 Bart julian 0-07 mL, l 17:34: Emulsion, [place] 00 IV, Once, first dose 04/07/19 12:34:00 CDT, stop date 04/07/19 12:34:00 CDT glycopyrrol 2018- No 0.2 mg = 1 Memoria ate 0-07 mL, l 17:15: Injection, [place] 00 IV, Once, first dose 04/07/19 12:15:00 CDT, stop date 04/07/19 12:15:00 CDT glycopyrrol 2018-07 No 0.2 mg = 1 Memoria ate 0-07 mL, l 16:43: Injection, [place] 00 IV, Once, first dose 04/07/19 11:43:00 CDT, stop date 04/07/19 11:43:00 CDT vancomycin 2019- No 1 gm, Memori a 0-07 Powder-Inj l 16:15: , IV, [place] 00 Once, first dose 04/07/19 11:15:00 CDT, stop date 04/07/19 11:15:00 CDT rocuronium 2019- No 40 mg = 4 Me moria 0-07 mL, l 16:10: Injection, [place] 00 IV, Once, first dose 04/07/19 11:10:00 CDT, stop date 04/07/19 11:10:00 CDT ondansetron 2018- No 4 mg = 2 Me moria 0-07 mL, l 16:00: Injection, [place] 00 IV, Once, first dose 04/07/19 11:00:00 CDT, stop date 04/07/19 11:00:00 CDT dexamethaso 2018- No 4 mg = 1 Me moria ne 0-07 mL, l 16:00: Injection, [place] 00 IV, Once, first dose 04/07/19 11:00:00 CDT, stop date 04/07/19 11:00:00 CDT propofol 2018- No 150 mg = Memor ia 0-07 15 mL, l 15:58: Emulsion, [place] 00 IV, Once, first dose 04/07/19 10:58:00 CDT, stop date 04/07/19 10:58:00 CDT rocuronium 2018- No 10 mg = 1 Me moria 0-07 mL, l 15:58: Injection, [place] 00 IV, Once, first dose 04/07/19 10:58:00 CDT, stop date 04/07/19 10:58:00 CDT succinylcho 2019- No 100 mg = 5 Memoria line 0-07 mL, l 15:58: Injection, [place] 00 IV, Once, first dose 04/07/19 10:58:00 CDT, stop date 04/07/19 10:58:00 CDT fentaNYL 2018- No 100 mcg = Bart julian 0-07 2 mL, l 15:58: Injection, [place] 00 IV, Once, first dose 04/07/19 10:58:00 [...] No 1 sprays, Mem oria topical 0-07 [place], l spray 15:00: TOP, Once, [place] first dose 04/07/19 10:00:00 CDT, stop date 04/07/19 10:00:00 CDT, Apply topically for 4 - 10 seconds from a distance of 3 - 7 inches from the procedure site LR 1,000 mL 2018-07 No 1,000 mL, M emoria 0-07 IV, 100 l 14:18: mL/hr, [place] 00 start date 04/07/19 9:18:00 CDT, For [...] Memoria 9-25 Oral, l 16:33: Daily, 0 [place] 00 Refill(s) Prednisone 2019-0 Yes 20 mg, Memor ia 9-25 Oral, l 16:33: Daily, 0 [place] 00 Refill(s) Pravastatin 2019-0 Yes 20 mg, Bart julian 9-25 Oral, qHS, l 16:33: 0 [place] 00 Refill(s) Omeprazole 2019-0 Yes 20 mg, Memor ia 9-25 Oral, l 16:33: Daily, 0 [place] 00 Refill(s) Myrbetriq 2019-0 Yes 50 mg, Memori a 9-25 Oral, l 16:32: Daily, 0 [place] 00 Refill(s) Lisinopril 2018-0 Yes 20 mg, Memor ia 9-25 Oral, BID, l 16:32: 0 [place] 00 Refill(s) Linzess 0 Yes 72 mcg, Memoria 9-25 Oral, qHS, l 16:32: 0 [place] 00 Refill(s) Hydroxyzine 2019-0 Yes 25 mg, Bart julian 9-25 Oral, BID, l 16:31: 0 [place] 00 Refill(s) duloxetine 0 Yes 60 mg, Memor ia 9-25 Oral, BID, l 16:31: 0 [place] 00 Refill(s) Buspirone 0 Yes 30 mg, Memori a 9-25 Oral, BID, l 16:31: 0 [place] 00 Refill(s) Victoza Yes [place] 1.8 mg Memor ia 7-13 [place] l 02:45: [place] Tumeric Yes [place] not Memoria 7-13 [place] defined l 02:45: [place] 02 Levothyroxi 2018- Yes [place] 1 tablet Memoria ne Sodium 7-13 [place] l 02:45: [place] Naproxen 2018- Yes [place] 1 tablet Me moria 7-13 [place] l 02:45: [place] 02 Marycarmen BD 2018- Yes [place] as [...] 01-11 [place] defined l Triple 02:45: [place] 3 2019-0 Yes [place] 1 capsule Me moria 7- [place] l 02:45: [place] Multi-betic 2019-0 Yes [place] not Mem oria Diabetes 01-11 [place] defined l 02:45: [place] 2019-0 Yes L[place] not Memoria 01-11 [place] defined l 02:45: [...] tablet Me moria 4-23 [place] l 00:00: [place] 2019-0 Yes [place] 1 tablet Bart julian Thyroid 4-18 [place] on an l 00:00: empty stomach Cymbalta 2019-0 Yes [place] 1 capsule M emoria 3-28 [place]ner l [...] capsule M emoria 6-16 [place] l 02:46: [place] 18 Cymbalta Yes [place] 1 capsule M [...] GM DAILY TO ANY ONE AFFECTED JOINT. [employer]ORDINATOR [employer]OTELS Thyroid 2017-0 Yes [place] 1 tablet Memoria 3-12 [place] on an l 00:00: empty [place] 00 stomach Lisinopril 0 Yes [place] 1 tablet Memoria 3-12 [place] l 00:00: [place] 00 COORDINATOR [employer]EL[employer] Thyroid 2017-0 Yes [place] 1 tablet Memoria 3-12 [place] on an l 00:00: empty stomach Myrbetriq 0 Yes [place] 1 tablet M emoria 2-16 [place] l 00:00: [place] 00 Pravastatin 2017-0 Yes [place] 1 tablet Memoria Sodium 2-15 [place] l 03:46: [place] 48 morphine 2016-07 No 1 mg = 0.1 Mem oria 1-16 mL, l 17:30: Injection, 00 IV Push, q5min PRN for Pain Moderate (4-6), order duration: 5 doses, first dose 05/17/17 11:30:00 [employer]EP [employer], stop date Limited # of times Demerol HCl 2016-07 No 12.5 mg = M emoria 1-16 0.5 mL, l 17:30: Injection, 00 IV Push, q5min PRN for Pain Mild (1-3), order duration: 4 doses, first dose 05/17/17 11:30:00 SHEEP F[employer] MA[employer]GER, stop date Limited # of times promethazin 2016-07 No 12.5 mg, Me moria e IVPB -16 IV l 17:30: Piggyback, Once PRN for nausea/vom iting, infuse over 15 minutes, first dose 05/17/17 11:30:00 SHEEP FARM MANAGER Misc 2016-07 No 600 mL, Memoria Medication 1-16 Soln-IV, l 17:26: IV, Once, first dose 05/17/17 11:26:00 SHEEP FARM MANAGER, stop date 05/17/17 11:26:00 SHEEP FARM MANAGER propofol 2016-07 No 550 mg = Memor ia 1-16 55 mL, l 17:22: Emulsion, [place] 00 IV, Once, first dose 05/17/17 11:22:00 SHEEP FARM MANAGER, stop date 05/17/17 11:22:00 SHEEP FARM MANAGER ondansetron 2016-07 No 4 mg = 2 Me moria 1-16 mL, l 16:48: Injection, [place] 00 IV, Once, first dose 05/17/17 10:48:00 SHEEP FARM MANAGER, stop date 05/17/17 10:48:00 SHEEP F[employer] MA[employer] ceFAZolin 2016-07 No 2 gm, Memoria 1-16 Powder-Inj l 16:42: , IV, [place] 00 Once, first dose 05/17/17 10:42:00 SHEEP FARM MANAGER, stop date 05/17/17 10:42:00 SHEEP FARM MANAGER dexamethaso 2016-07 No 4 mg = 1 Me moria ne 1-16 mL, l 16:37: Injection, [place] 00 IV, Once, first dose 05/17/17 10:37:00 SHEEP FARM MANAGER, stop date 05/17/17 10:37:00 SHEEP FARM MANAGER fentaNYL 2016-07 No 50 mcg = 1 Mem oria 1-16 mL, l 16:37: Injection, [place] 00 IV, Once, first dose 05/17/17 10:37:00 SHEEP FARM MANAGER, stop date 05/17/17 10:37:00 SHEEP FARM MANAGER fentaNYL 2016-07 No 50 mcg = 1 Mem oria 1-16 mL, l 16:31: Injection, [place] 00 IV, Once, first dose 05/17/17 10:31:00 SHEEP FARM MANAGER, stop date 05/17/17 10:31:00 SHEEP FARM MANAGER midazolam 2016-07 No 2 mg = 2 Bart julian 1-16 mL, l 16:25: Injection, [place] 00 IV, Once, first dose 05/17/17 10:25:00 SHEEP FARM MANAGER, stop date 05/17/17 10:25:00 SHEEP FARM MANAGER Cefazolin 2016-07 No 2 gm, Memoria 1-16 Soln-IV, l 16:00: IV [place] 00 Piggyback, Once, infuse over 30 minutes, first dose 05/17/17 10:00:00 SHEEP FARM MANAGER, stop date 05/17/17 10:00:00 SHEEP FARM MANAGER, Prophylaxi s Pain Ease 2016-07 No 1 sprays, Mem oria topical 1-16 [place], l spray 16:00: TOP, Once, [place] 00 first dose 05/17/17 10:00:00 SHEEP FARM MANAGER, stop date 05/17/17 10:00:00 SHEEP FARM MANAGER, Apply topically for 4 - 10 seconds from a distance of 3 - 7 inches from the procedure site LR 1,000 mL 2016-07 No 1,000 mL, M emoria -16 IV, 100 l 15:13: mL/hr, start date 05/17/17 9:13:00 SHEEP FARM MANAGER, For Adults Zostavax 2016-07 Yes [place] as Memori a -10 [place] directed l 00:00: [place] 00 cognium 2016-07 No cognium, Memori a 07-10 100mg l 13:53: daily, 0 [place] 00 Refill(s) simvastatin 2016-07 Yes 10 mg [...] Memoria 07-10 100mg l 13:49: daily, 0 [place] 00 Refill(s) allergy 2016-07 No allergy Memoria relief 07-10 relief, l 13:49: 25mg [place] 00 daily, 0 Refill(s) Cranberry 2016-07 No 1 tab, Memori a 07-10 Oral, l 13:48: Daily, 0 [place] 00 Refill(s) Vitamin D 2016-07 No 1 [...] 07-10 1 caps, l capsule 13:48: Oral, [place] 00 Daily, 0 Refill(s) linaclotide 2016-07 No [...] 0 Refill(s) levothyroxi 2016-07 Yes 125 mcg, Va moria ne 07-10 Oral, l 13:46: Daily, 0 [place] 00 Refill(s) Levemir 2016-07 No 35 units, Memor ia FlexPen 07-10 Subcutaneo l 13:46: us, BID, 0 [place] 00 Refill(s) clopidogrel 2016-07 Yes 75 mg = 1 M emoria 75 mg oral 07-10 tabs, l tablet 13:46: Oral, [place] 00 Daily, # 30 tabs, 0 Refill(s) Thyroxine 2016-07 Yes 88 mcg, Memor ia 07-10 Oral, l 13:46: Daily, 0 [place] 00 Refill(s) clopidogrel 2016-07 Yes 75 mg = 1 M emoria 75 mg oral 07-10 tabs, l tablet 13:46: Oral, qHS, [place] nn 00 stopping 03/31, # 30 tabs, 0 Refill(s) alendronate 2016-07 Yes 70 mg = 1 M emoria 70 mg oral 1-09 tabs, l tablet 13:45: Oral, [place] 00 qMonday, # 4 tabs, 0 Refill(s) [...] Memoria Plus Iron 03-18 Jesus l 03:04: [place] 17 [place] Yes [place] not Memoria 03-18 Jesus defined l 03:04: Folic Acid Yes [place] 1 tablet Memoria 03-18 Valentíngarleia l 03:04: Diabetes Yes [place] not Memori a Support 03-18 Jesus defined l 03:04: [place] 17 CoQ-10 Yes [place] 1 capsule Mem [...] 01-31 [place]umgarner week as l 00:00: directed [place] 00 Macrobid Yes [place] 1 capsule M emoria 01-31 [place] with food l 00:00: [place] 00 Bactrim DS Yes [place] 1 tablet Memoria 01-31 [place] l 00:00: [place] 00 Trulicity Yes [place] once a Mem [...] l pen needles 03:45: [place] Pen [place] 0 Yes [place] as Mem oria 5/16" 2-15 [place] directed l 00:00: Pen [place] 0 Yes [place] as Mem oria 5/16" 2-15 [place] directed l 00:00: [place] 00 VESIcare 2015-07 Yes [place] 1 tablet Me moria 2-01 [place] l 00:00: [place] 00 Macrobid 2015-07 Yes [place] 1 capsule M emoria 2- [place]um[place] with food l 00:00: [place] 00 Macrobid 2015-07 Yes [place] 1 capsule M emoria 2-01 [place] with food l 00:00: [place] 00 VESIcare 2015-07 Yes [place] 1 tablet [...] [place] 1.8 Memoria 8-20 [place] l 02:58: [place] 16 Naproxen 2015-0 Yes [place] TAKE 1 Bart julian 8-20 [place] TABLET BY l 02:58: MOUTH [place] 16 TWICE A DAY NEEDED Ultram 2014-0 [...] tablet M emoria 5-05 [place] l 00:00: [place] 00 Acyclovir 2015-0 Yes [place] 1 tablet M emoria 5-05 [place] l 00:00: [place] 00 [place] 2015-0 Yes [place] 1 tablet Memor ia 4-20 [place]um[place] as needed l 00:00: [place] 00 [place] 2015-0 Yes [place] 1 tablet Memor ia 4-20 [place] as needed l 00:00: Valtrex 2015-0 Yes [place] 1 tablet Mem oria 3-30 [place] l 00:00: [place] 00 Neurontin 2015-0 Yes [place] 1 capsule Memoria 3-30 [place] l 00:00: Levemir 2015-0 Yes [place] inject 30 Me moria Flexpen 2-02 [place] units sq l 03:49: twice a [place] 49 day Symbicort 2015-0 Yes [place] 2 puffs Me moria 1-23 [place] l 00:00: [place] 00 Symbicort 2015-0 Yes [place] 2 puffs Me moria 1-23 [place] l 00:00: Zithromax 2015-0 Yes [place] 2 tablets Memoria Z-Ezequiel 1-23 [place]um[place]ner on the l 00:00: first day, then 1 tablet daily for 4 days Levemir 2015-0 Yes [place] as Memoria FlexTouch 1-07 [place] directed l 00:00: [place] 00 Victoza 2013- Yes [place] 1.8 Memoria 2-27 [place] l 00:00: Victoza 2013-07 Yes [place] 0.2 ml Memor ia 2-20 [place] l 00:00: Victoza 2013- Yes [place] 1.8 Memoria 2-08 [place]um[place] l 00:00: [place] 00 Viibryd 2013-07 Yes [place] take 1 Memor ia 1-22 [place] tablet l 04:03: daily [place] 32 Omeprazole 2013-07 Yes [place] 1 tablet Memoria 1-22 [place] l 04:03: [place] 32 Fosamax 2013-07 Yes Lorena 1 tablet Mem oria 0-16 [place] l 00:00: [place] 00 Macrobid 2013-07 Yes Lorena 1 capsule M emoria 0-16 [place] with food l 00:00: [place] 00 Naproxen Yes [place]na TAKE 1 Bart julian 9-30 [place] TABLET BY l 02:52: MOUTH [place] 54 TWICE A DAY NEEDED Omeprazole Yes [place]orena 1 tablet Memoria 7-17 [place] l 02:49: [place] 19 Levothyroxi Yes [place] 1 po qd Memoria ne Sodium 7-17 [place] l 02:49: [place] 19 Lovastatin Yes [place] TAKE 1 Me moria 7-17 [place] TABLET l 02:47: DAILY [place] 07 Lisinopril Yes [place] 1 tablet Memoria 7-17 [place] l 02:47: [place] 07 BD Pen Yes [place]na as [facility]oria 7-10 [place] directed l 00:00: [place] 00 BD Pen Yes [place]na as [facility] 7-10 [place] directed l 00:00: [place] 00 BD Pen Yes [place]orena as [facility] 7-10 [place] directed l 00:00: [place] 00 Medrol Yes [place]na as [facility] (Ezequiel) 6-06 [place] directed l 00:00: [place] 00 Vitamin D Yes Lorena 1 capsule Memoria 6-03 [place] l 02:52: [place] 15 Flonase Yes [place] 1 spray in M emoria 6-03 [place] each l 02:52: nostril 13 Flonase Yes [place] 1 spray in M emoria 6-02 [place] each l 00:00: nostril [place] 00 Jolie Yes Lorena 1 tablet Mem [...] 3-27 Lastoczy 0.5 mL, l 14:18: Injection, [place] 00 IV Push, q5min PRN for Pain Mild (1-3), order duration: 4 doses, first dose 09/25/13 9:18:00 CDT, stop date Limited # of times morphine No Mahin M 2 mg = 0.2 Memoria 3-27 Lastoczy mL, l 14:18: Injection, [place] 00 IV Push, q5min PRN for pain [...] 5 Memoria 3-27 mL, l 13:41: Emulsion, [place] 00 IV, Once, first dose 09/25/13 8:41:00 CDT, stop date 09/25/13 8:41:00 CDT propofol No Philip Boyd 50 mg = 5 Memoria 3-27 mL, l 13:37: Emulsion, [place] 00 IV, Once, first dose 09/25/13 8:37:00 CDT, stop date 09/25/13 8:37:00 CDT propofol No Philip Boyd 100 mg = Memoria 3-27 10 mL, l 13:32: Emulsion, [place] 00 IV, Once, first dose 09/25/13 8:32:00 CDT, stop date 09/25/13 8:32:00 CDT propofol Gertrudis Boyd 50 mg = 5 Memoria 3-27 mL, l 13:28: Emulsion, [place] 00 IV, Once, first dose 09/25/13 8:28:00 CDT, stop date 09/25/13 8:28:00 CDT propofol Gertrudis Boyd 100 mg = Memoria 3-27 10 mL, l 13:23: Emulsion, [place] 00 IV, Once, first dose 09/25/13 8:23:00 CDT, stop date 09/25/13 8:23:00 CDT propofol Gertrudis Boyd 100 mg = Memoria 3-27 10 mL, l 13:17: Emulsion, [place] 00 IV, Once, first dose 09/25/13 8:17:00 CDT, stop date 09/25/13 8:17:00 CDT lidocaine Gertrudis Boyd 3 mL, M emoria 3-27 Injection, l 13:15: IV, Once, [place] 00 first dose 09/25/13 8:15:00 CDT, stop date 09/25/13 8:15:00 CDT fentanyl Gertrudis Boyd 100 mcg = Memoria 3-27 2 mL, l 13:14: Injection, [place] 00 IV, Once, first dose 09/25/13 8:14:00 CDT, stop date 09/25/13 8:14:00 CDT midazolam Gertrudis Boyd 2 mg = 2 Memoria 3-27 mL, l 13:14: Implant, [place] 00 IV, Once, first dose 09/25/13 8:14:00 CDT, stop date 09/25/13 8:14:00 CDT cefazolin Gertrudis Palacios 1 gm, Memori a 3-27 [employer]-IV, l 12:00: IV [place] 00 Piggyback, Once, infuse over 30 minutes, first dose 09/25/13 7:00:00 CDT, stop date 09/25/13 7:00:00 CDT ethyl No Mahin M 1 sprays, Bart julian chloride 3-27 Lastoczy [place], l topical 12:00: TOP, Once, Herm danilo spray 00 first dose 09/25/13 7:00:00 CDT, stop date 09/25/13 7:00:00 CDT Sodium No Mahin M 250 mL, Memor ia Chloride 3-27 Lastoczy IV, 25 l 0.9% 250 mL 11:54: mL/hr, Herm danilo 00 start date 09/25/13 6:54:00 CDT Naprosyn Yes [place] 1 tablet Me moria 3-26 [place] as needed l 00:00: [place] Soma Yes Lorena 1 tablet Memori a 3-26 [place] as needed l 00:00: [place] Xanax No [place]orena 1 tablet Memor ia 3-26 [place] l 00:00: [place] 00 clonazepam Yes 0.25 mg = Me [...] oral 3-21 tabs, l tablet 18:22: Oral, [place] 00 Daily, 0 Refill(s) Seroquel 50 No 50 mg = 1 M emoria mg oral 3-21 tabs, l tablet 18:22: Oral, [place] 00 Daily, 0 Refill(s) quetiapine No 50 mg = 1 Me moria 50 MG Oral 3-21 tabs, l Tablet 18:22: Oral, [place] [Seroquel] 00 Daily, 0 Refill(s) Milk Yes 2, Oral, Memoria Thistle 3-21 Daily, 0 l 18:19: Refill(s) [place] 00 Flintstones Yes 1 tabs, Mem oria with Iron 3-21 Chewed, l oral 18:19: Daily, 0 [place] tablet, 00 Refill(s) chewable Milk No 2, Oral, Mem[facility] Thistle 3-21 Daily, 0 l 18:19: Refill(s) [place] 00 Flintstones No 1 tabs, Mem oria with Iron 3-21 Chewed, l oral 18:19: Daily, 0 [place] tablet, 00 Refill(s) chewable lisinopril Yes 40 mg = 1 Me moria 40 mg oral 3-21 tabs, l tablet 18:18: Oral, [place] 00 Daily, 0 Refill(s) Vitamin D No 1 tabs, Memor ia chewable 3-21 Oral, l 5000 units 18:18: Daily, # Her matthews 00 30 tabs, 0 Refill(s) lisinopril No 40 mg = 1 Me moria 40 mg oral 3-21 tabs, l tablet 18:18: Oral, [place] 00 Daily, 0 Refill(s) Victoza 18 Yes 1.8 mg, Bart julian mg/3 mL 3-21 Subcutaneo l subcutaneou 18:16: us, Daily, [place] s solution 00 0 Refill(s) lovastatin Yes 40 mg = 1 Me moria 40 mg oral 3-21 tabs, l tablet 18:16: Oral, [place] 00 Daily, 0 Refill(s) omeprazole Yes 20 mg = 1 Me moria 20 mg oral 3-21 tabs, l delayed 18:16: Oral, [place] release 00 Daily, 0 tablet Refill(s) 3 ML No 1.8 mg, Memoria liraglutide 3-21 Subcutaneo l 6 MG/ML 18:16: us, Daily, Herm danilo Prefilled 00 0 Syringe Refill(s) [Victoza] Lovastatin No 40 mg = 1 Me moria 40 MG Oral 3-21 tabs, l Tablet 18:16: Oral, [place] 00 Daily, 0 Refill(s) Omeprazole No 20 mg = 1 Me moria 20 MG 3-21 tabs, l Enteric 18:16: Oral, [place] Coated 00 Daily, 0 Tablet Refill(s) Viibryd 40 Yes 40 mg = 1 Me moria mg oral 3-21 tabs, l tablet 18:15: Oral, [place] 00 Daily, 0 Refill(s) Levemir Yes 30 units, Memor ia FlexPen 3-21 Subcutaneo l 18:15: us, BID, 0 [place] 00 Refill(s) Sanctura 20 Yes 20 mg = 1 M emoria mg oral 3-21 tabs, l tablet 18:15: Oral, BID, Nica nn 00 0 Refill(s) vilazodone No 40 mg = 1 Me moria hydrochlori 3-21 tabs, l de 40 MG 18:15: Oral, [place] Oral Tablet 00 Daily, 0 [Viibryd] Refill(s) [...] tablet Me moria 1-15 [place] l 00:00: [place] 00 Sanctura Yes Lorena 1 tablet Me moria 1-15 [place] l 00:00: [place] 00 Sanctura Yes [place]na 1 tablet Me moria 1-15 [place] l 00:00: [place] 00 Alendronate Alendronate Yes U nivers Sodium 70 Sodium 70 ity o f MG Oral MG Oral [place] Tablet Tablet Physici ans Plavix 75 Plavix 75 Yes Unive rs MG Oral MG Oral ity of Tablet Tablet [place] [facility] ans Levo-T 125 Levo-T 125 Yes Uni vers MCG Oral MCG Oral ity of Tablet Tablet [place] [facility] ans Xanax 0.5 Xanax 0.5 Yes Unive rs MG Oral MG Oral ity of Tablet Tablet [place] [facility] ans Linzess 145 Linzess 145 Yes U nivers MCG Oral MCG Oral ity of Capsule Capsule [place] [facility] ans Symbicort Symbicort Yes Unive rs 80-4.5 80-4.5 ity of MCG/ACT MCG/ACT [place] Inhalation Inhalation Phy sici Aerosol Aerosol ans Vimovo Vimovo Yes Univers 500-20 MG 500-20 MG ity o f Oral Tablet Oral Tablet [place] Delayed Delayed Physici Release Release ans Levemir Levemir Yes Univers SOLN SOLN [facility]y of [place] [facility] ans Vital Signs Vital Name Observation Time Observation Value Comments Source Systolic (mm Hg) 2019-04-09 21:00:00 Bart rial [place] Diastolic (mm Hg) 2019-04-09 21:00:00 Mem orial [place] Respitory Rate 2019-04-09 21:00:00 Memori al [place] Heart Rate 2019-04-09 21:00:00 [facility] [place] Systolic (mm Hg) 2019-04-09 11:00:00 Bart rial [place] Diastolic (mm Hg) 2019-04-09 11:00:00 Mem orial [place] Heart Rate 2019-04-09 11:00:00 [facility] [place] Respitory Rate 2019-04-09 11:00:00 Memori al [place] Heart Rate 2019-04-09 09:00:00 [facility] [place] Systolic (mm Hg) 2019-04-09 09:00:00 Bart rial [place] Diastolic (mm Hg) 2019-04-09 09:00:00 Mem orial [place] Respitory Rate 2019-04-09 09:00:00 Memori al [place] Temperature Oral (F) 2019-04-09 09:00:00 37.5 Marjorie [facility] [place] Temperature Oral (F) 2019-04-09 00:00:00 37.3 Marjorie [facility] [place] Temperature Oral (F) 2019-04-08 21:00:00 38.0 Marjorie [facility] [place] Temperature Oral (F) 2019-04-07 19:00:00 36.1 Marjorie [facility] [place] Temperature Oral (F) 2019-04-07 18:10:00 36.4 Marjorie [facility] [place] Temperature Oral (F) 2019-04-07 14:27:00 36.9 Marjorie [facility] [place] Height 2019-04-07 14:27:00 162.54 cm [facility] [place] Height 2019-03-26 16:14:00 162.54 cm [facility] [place] Weight 2018-10-01 19:45:00 [facility] [place] Height 2018-10-01 19:45:00 [facility] [place] Temperature Oral (F) 2018-10-01 19:45:00 98.7 F [facility] [place] Heart Rate 2018-10-01 19:45:00 [facility] [place] Diastolic (mm Hg) 2018-10-01 19:45:00 Mem orial [place] Systolic (mm Hg) 2018-10-01 19:45:00 Bart rial [place] Weight 2018-09-24 15:00:00 [facility] [place] Height 2018-09-24 15:00:00 [facility] [place] Temperature Oral (F) 2018-09-24 15:00:00 98.6 F [facility] [place] Heart Rate 2018-09-24 15:00:00 [facility] [place] Diastolic (mm Hg) 2018-09-24 15:00:00 Mem orial [place] Systolic (mm Hg) 2018-09-24 15:00:00 Bart rial [place] Weight 2018-07-19 16:15:00 [facility] [place] Height 2018-07-19 16:15:00 [facility] [place] Temperature Oral (F) 2018-07-19 16:15:00 99.1 F [facility] [place] Heart Rate 2018-07-19 16:15:00 [facility] [place] Diastolic (mm Hg) 2018-07-19 16:15:00 Mem orial [place] Systolic (mm Hg) 2018-07-19 16:15:00 Bart rial [place] Weight 2018-07-11 21:30:00 [facility] [place] Height 2018-07-11 21:30:00 [facility] [place] Temperature Oral (F) 2018-07-11 21:30:00 98.4 F [facility] [place] Heart Rate 2018-07-11 21:30:00 [facility] [place] Diastolic (mm Hg) 2018-07-11 21:30:00 Mem orial [place] Systolic (mm Hg) 2018-07-11 21:30:00 Bart rial [place] Weight 2018-05-20 16:30:00 [facility] [place] Height 2018-05-20 16:30:00 [facility] [place] Temperature Oral (F) 2018-05-20 16:30:00 98.5 F [facility] [place] Heart Rate 2018-05-20 16:30:00 [facility] [place] Diastolic (mm Hg) 2018-05-20 16:30:00 Mem orial [place] Systolic (mm Hg) 2018-05-20 16:30:00 Bart rial [place] Weight 2018-04-11 20:00:00 [facility] [place] Height 2018-04-11 20:00:00 [facility] [place] Temperature Oral (F) 2018-04-11 20:00:00 98.2 F [facility] [place] Heart Rate 2018-04-11 20:00:00 [facility] [place] Diastolic (mm Hg) 2018-04-11 20:00:00 Mem orial [place] Systolic (mm Hg) 2018-04-11 20:00:00 Bart rial [place] Weight 2018-02-20 21:00:00 [facility] [place] Height 2018-02-20 21:00:00 [facility] [place] Temperature Oral (F) 2018-02-20 21:00:00 98.0 F [facility] [place] Heart Rate 2018-02-20 21:00:00 [facility] [place] Diastolic (mm Hg) 2018-02-20 21:00:00 Mem orial [place] Systolic (mm Hg) 2018-02-20 21:00:00 Bart rial [place] Weight 2018-02-06 20:30:00 [facility] [place] Height 2018-02-06 20:30:00 [facility] [place] Temperature Oral (F) 2018-02-06 20:30:00 98.8 F [facility] [place] Heart Rate 2018-02-06 20:30:00 [facility] [place] Diastolic (mm Hg) 2018-02-06 20:30:00 Mem orial [place] Systolic (mm Hg) 2018-02-06 20:30:00 [facility] [place] Height 2018-02-06 14:07:00 64 [in_us] [facility] Physician s Weight 2018-02-06 14:07:00 269 [facility]_av[facility] Body [facility] Index 2018-02-06 14:07:00 46.17 kg/m2 Unive rsity of Calculated [place] Physician s Weight 2018-01-24 19:30:00 [facility] [place] Height 2018-01-24 19:30:00 [facility] [place] Temperature Oral (F) 2018-01-24 19:30:00 98.6 F [facility] [place] Heart Rate 2018-01-24 19:30:00 [facility] [place] Diastolic (mm Hg) 2018-01-24 19:30:00 Mem orial [place] Systolic (mm Hg) 2018-01-24 19:30:00 Bart rial [place] Height 2018-01-11 10:38:00 64 [in_us] Universi [facility] Physician s Weight 2018-01-11 10:38:00 269 [lb_av] [facility] Physician s Body Mass Index 2018-01-11 10:38:00 46.17 kg/m2 Unive rsity of Calculated [place] Physician s Weight 2018-01-10 19:30:00 [facility] [place] Height 2018-01-10 19:30:00 [facility] [place] Temperature Oral (F) 2018-01-10 19:30:00 98.0 F [facility] [place] Heart Rate 2018-01-10 19:30:00 [facility] [place] Diastolic (mm Hg) 2018-01-10 19:30:00 Mem orial [place] Systolic (mm Hg) 2018-01-10 19:30:00 Bart rial [place] Weight 2017-12-27 19:30:00 [facility] [place] Height 2017-12-27 19:30:00 [facility] [place] Temperature Oral (F) 2017-12-27 19:30:00 98.6 F [facility] [place] Heart Rate 2017-12-27 19:30:00 [facility] [place] Diastolic (mm Hg) 2017-12-27 19:30:00 Mem orial [place] Systolic (mm Hg) 2017-12-27 19:30:00 Bart rial [place] Weight 2017-12-14 16:00:00 [facility] [place] Height 2017-12-14 16:00:00 [facility] [place] Temperature Oral (F) 2017-12-14 16:00:00 98.9 F [facility] [place] Heart Rate 2017-12-14 16:00:00 [facility] [place] Diastolic (mm Hg) 2017-12-14 16:00:00 Mem orial [place] Systolic (mm Hg) 2017-12-14 16:00:00 Bart rial [place] Weight 2017-12-13 20:45:00 [facility] [place] Height 2017-12-13 20:45:00 [facility] [place] Temperature Oral (F) 2017-12-13 20:45:00 98.7 F [facility] [place] Heart Rate 2017-12-13 20:45:00 [facility] [place] Diastolic (mm Hg) 2017-12-13 20:45:00 Mem orial [place] Systolic (mm Hg) 2017-12-13 20:45:00 Bart rial [place] Height 2017-12-10 10:53:00 64 [in_us] Universi [facility] Physician s Weight 2017-12-10 10:53:00 269 [lb_av] [facility] Physician s Body Mass Index 2017-12-10 10:53:00 46.17 kg/m2 Unive rsity of Calculated [place] Physician s Weight 2017-12-06 20:15:00 [facility] [place] Height 2017-12-06 20:15:00 [facility] [place] Temperature Oral (F) 2017-12-06 20:15:00 87 F [facility] [place] Heart Rate 2017-12-06 20:15:00 [facility] [place] Diastolic (mm Hg) 2017-12-06 20:15:00 Mem orial [place] Systolic (mm Hg) 2017-12-06 20:15:00 Bart rial [place] Weight 2017-11-29 20:30:00 [facility] [place] Height 2017-11-29 20:30:00 [facility] [place] Temperature Oral (F) 2017-11-29 20:30:00 99.2 F [facility] [place] Heart Rate 2017-11-29 20:30:00 [facility] [place] Diastolic (mm Hg) 2017-11-29 20:30:00 Mem orial [place] Systolic (mm Hg) 2017-11-29 20:30:00 Bart rial [place] Weight 2017-11-21 20:00:00 [facility] [place] Height 2017-11-21 20:00:00 [facility] [place] Temperature Oral (F) 2017-11-21 20:00:00 99.3 F [facility] [place] Heart Rate 2017-11-21 20:00:00 [facility] [place] Diastolic (mm Hg) 2017-11-21 20:00:00 Mem orial [place] Systolic (mm Hg) 2017-11-21 20:00:00 Bart rial [place] Weight 2017-10-16 15:45:00 [facility] [place] Height 2017-10-16 15:45:00 [facility] [place] Temperature Oral (F) 2017-10-16 15:45:00 99.0 F [facility] [place] Heart Rate 2017-10-16 15:45:00 [facility] [place] Diastolic (mm Hg) 2017-10-16 15:45:00 Mem orial [place] Systolic (mm Hg) 2017-10-16 15:45:00 Bart rial [place] Height 2017-10-15 16:02:00 64 [in_us] [facility] [place] [facility] Weight 2017-10-15 16:02:00 269 [lb_av] [facility] Physician s Body Mass Index 2017-10-15 16:02:00 46.17 kg/m2 Unive rsity of Calculated [place] Physician s Weight 2017-09-24 18:30:00 [facility] [place] Height 2017-09-24 18:30:00 [facility] [place] Temperature Oral (F) 2017-09-24 18:30:00 98.9 F [facility] [place] Heart Rate 2017-09-24 18:30:00 [facility] [place] Diastolic (mm Hg) 2017-09-24 18:30:00 Mem orial [place] Systolic (mm Hg) 2017-09-24 18:30:00 Bart rial [place] Height 2017-09-13 16:14:00 64 [in_us] [facility] [place] Physician [facility] Weight 2017-09-13 16:14:00 269 [lb_av] [facility]i [facility] Physician s Body Mass Index 2017-09-13 16:14:00 46.17 kg/m2 Unive rsity of Calculated [place] Physician s Weight 2017-09-10 18:45:00 [facility] [place] Height 2017-09-10 18:45:00 [facility] [place] Temperature Oral (F) 2017-09-10 18:45:00 97.5 F [facility] [place] Heart Rate 2017-09-10 18:45:00 [facility] [place] Diastolic (mm Hg) 2017-09-10 18:45:00 Mem orial [place] Systolic (mm Hg) 2017-09-10 18:45:00 Bart rial [place] Weight 2017-08-17 15:30:00 [facility] [place] Height 2017-08-17 15:30:00 [facility] [place] Temperature Oral (F) 2017-08-17 15:30:00 98.6 F [facility] [place] Heart Rate 2017-08-17 15:30:00 [facility] [place] Diastolic (mm Hg) 2017-08-17 15:30:00 Mem orial [place] Systolic (mm Hg) 2017-08-17 15:30:00 Bart rial [place] Weight 2017-07-05 16:45:00 [facility] [place] Height 2017-07-05 16:45:00 [facility] [place] Temperature Oral (F) 2017-07-05 16:45:00 98.7 F [facility] [place] Heart Rate 2017-07-05 16:45:00 [facility] [place] Diastolic (mm Hg) 2017-07-05 16:45:00 Mem orial [place] Systolic (mm Hg) 2017-07-05 16:45:00 Bart rial [place] Weight 2017-06-06 17:00:00 [facility] [place] Height 2017-06-06 17:00:00 [facility] [place] Temperature Oral (F) 2017-06-06 17:00:00 98.3 F [facility] [place] Heart Rate 2017-06-06 17:00:00 [facility] [place] Diastolic (mm Hg) 2017-06-06 17:00:00 Mem orial [place] Systolic (mm Hg) 2017-06-06 17:00:00 Bart rial [place] Systolic (mm Hg) 2017-05-17 17:35:00 Bart rial [place] Diastolic (mm Hg) 2017-05-17 17:35:00 Mem orial [place] Heart Rate 2017-05-17 17:35:00 [facility] [place] Respitory Rate 2017-05-17 17:25:00 Memori al [place] Systolic (mm Hg) 2017-05-17 17:25:00 Bart rial [place] Diastolic (mm Hg) 2017-05-17 17:25:00 Mem orial [place] Heart Rate 2017-05-17 17:25:00 [facility] [place] Respitory Rate 2017-05-17 17:20:00 Memori al [place] Systolic (mm Hg) 2017-05-17 17:20:00 Bart rial [place] Diastolic (mm Hg) 2017-05-17 17:20:00 Mem orial [place] Temperature Oral (F) 2017-05-17 17:20:00 36.5 Marjorie [facility] [place] Heart Rate 2017-05-17 17:20:00 [facility] [place] Height 2017-05-17 14:47:00 165.10 cm [facility] [place] Temperature Oral (F) 2017-05-17 14:47:00 36.8 Marjorie [facility] [place] Weight 2017-05-11 15:45:00 [facility] [place] Height 2017-05-11 15:45:00 [facility] [place] Temperature Oral (F) 2017-05-11 15:45:00 98.5 F [facility] [place] Heart Rate 2017-05-11 15:45:00 [facility] [place] Diastolic (mm Hg) 2017-05-11 15:45:00 Mem orial [place] Systolic (mm Hg) 2017-05-11 15:45:00 Bart rial [place] Temperature Oral (F) 2017-05-10 13:36:00 36.7 Marjorie [facility] [place] Height 2017-05-10 13:36:00 165.10 cm [facility] [place] Weight 2017-05-03 20:15:00 [facility] [place] Height 2017-05-03 20:15:00 [facility] [place] Temperature Oral (F) 2017-05-03 20:15:00 98.5 F [facility] [place] Diastolic (mm Hg) 2017-05-03 20:15:00 Mem orial [place] Systolic (mm Hg) 2017-05-03 20:15:00 Bart rial [place] Weight 2017-04-26 14:45:00 [facility] [place] Height 2017-04-26 14:45:00 [facility] [place] Temperature Oral (F) 2017-04-26 14:45:00 98.5 F [facility] [place] Heart Rate 2017-04-26 14:45:00 [facility] [place] Diastolic (mm Hg) 2017-04-26 14:45:00 Mem orial [place] Systolic (mm Hg) 2017-04-26 14:45:00 Bart rial [place] Weight 2017-02-14 20:15:00 [facility] [place] Height 2017-02-14 20:15:00 [facility] [place] Temperature Oral (F) 2017-02-14 20:15:00 99.4 F [facility] [place] Heart Rate 2017-02-14 20:15:00 [facility] [place] Diastolic (mm Hg) 2017-02-14 20:15:00 Mem orial [place] Systolic (mm Hg) 2017-02-14 20:15:00 Bart rial [place] Weight 2017-01-31 15:45:00 [facility] [place] Height 2017-01-31 15:45:00 [facility] [place] Temperature Oral (F) 2017-01-31 15:45:00 98.0 F [facility] [place] Heart Rate 2017-01-31 15:45:00 [facility] [place] Diastolic (mm Hg) 2017-01-31 15:45:00 Mem orial [place] Systolic (mm Hg) 2017-01-31 15:45:00 Bart rial [place] Weight 2016-11-30 14:15:00 [facility] [place] Height 2016-11-30 14:15:00 [facility] [place] Temperature Oral (F) 2016-11-30 14:15:00 98.6 F [facility] [place] Heart Rate 2016-11-30 14:15:00 [facility] [place] Diastolic (mm Hg) 2016-11-30 14:15:00 Mem orial [place] Systolic (mm Hg) 2016-11-30 14:15:00 Bart rial [place] Weight 2016-09-15 14:30:00 [facility] [place] Height 2016-09-15 14:30:00 [facility] [place] Temperature Oral (F) 2016-09-15 14:30:00 98.5 F [facility] [place] Heart Rate 2016-09-15 14:30:00 [facility] [place] Diastolic (mm Hg) 2016-09-15 14:30:00 Mem orial [place] Systolic (mm Hg) 2016-09-15 14:30:00 Bart rial [place] Weight 2016-06-01 20:45:00 [facility] [place] Height 2016-06-01 20:45:00 [facility] [place] Temperature Oral (F) 2016-06-01 20:45:00 98.6 F [facility] [place] Heart Rate 2016-06-01 20:45:00 [facility] [place] Diastolic (mm Hg) 2016-06-01 20:45:00 Mem orial [place] Systolic (mm Hg) 2016-06-01 20:45:00 Bart rial [place] Weight 2016-04-20 19:30:00 [facility] [place] Height 2016-04-20 19:30:00 [facility] [place] Temperature Oral (F) 2016-04-20 19:30:00 98.8 F [facility] [place] Heart Rate 2016-04-20 19:30:00 [facility] [place] Diastolic (mm Hg) 2016-04-20 19:30:00 Mem orial [place] Systolic (mm Hg) 2016-04-20 19:30:00 Bart rial [place] Weight 2016-03-21 19:30:00 [facility] [place] Height 2016-03-21 19:30:00 [facility] [place] Temperature Oral (F) 2016-03-21 19:30:00 98.8 F [facility] [place] Diastolic (mm Hg) 2016-03-21 19:30:00 Mem orial [place] Systolic (mm Hg) 2016-03-21 19:30:00 Bart rial [place] Weight 2016-02-09 13:45:00 [facility] [place] Height 2016-02-09 13:45:00 [facility] [place] Temperature Oral (F) 2016-02-09 13:45:00 99.0 F [facility] [place] Heart Rate 2016-02-09 13:45:00 [facility] [place] Diastolic (mm Hg) 2016-02-09 13:45:00 Mem orial [place] Systolic (mm Hg) 2016-02-09 13:45:00 Bart rial [place] Weight 2015-07-05 17:15:00 [facility] [place] Height 2015-07-05 17:15:00 [facility] [place] Temperature Oral (F) 2015-07-05 17:15:00 98.6 F [facility] [place] Heart Rate 2015-07-05 17:15:00 [facility] [place] Diastolic (mm Hg) 2015-07-05 17:15:00 Mem orial [place] Systolic (mm Hg) 2015-07-05 17:15:00 Bart julianl [place] Weight 2015-06-04 16:45:00 [facility] [place] Height 2015-06-04 16:45:00 [facility] [place] Temperature Oral (F) 2015-06-04 16:45:00 97.6 F [facility] [place] Heart Rate 2015-06-04 16:45:00 [facility] [place] Diastolic (mm Hg) 2015-06-04 16:45:00 Mem orial [place] Systolic (mm Hg) 2015-06-04 16:45:00 Bart rial [place] Weight 2015-02-15 19:30:00 [facility] [place] Height 2015-02-15 19:30:00 [facility] [place] Temperature Oral (F) 2015-02-15 19:30:00 98.7 F [facility] [place] Heart Rate 2015-02-15 19:30:00 [facility] [place] Diastolic (mm Hg) 2015-02-15 19:30:00 Mem orial [place] Systolic (mm Hg) 2015-02-15 19:30:00 Bart rial [place] Weight 2015-01-15 16:00:00 [facility] [place] Height 2015-01-15 16:00:00 [facility] [place] Temperature Oral (F) 2015-01-15 16:00:00 99.1 F [facility] [place] Heart Rate 2015-01-15 16:00:00 [facility] [place] Diastolic (mm Hg) 2015-01-15 16:00:00 Mem orial [place] Systolic (mm Hg) 2015-01-15 16:00:00 Bart rial [place] Weight 2014-09-28 19:00:00 [facility] [place] Height 2014-09-28 19:00:00 [facility] [place] Temperature Oral (F) 2014-09-28 19:00:00 99.0 F [facility] [place] Heart Rate 2014-09-28 19:00:00 [facility] [place] Diastolic (mm Hg) 2014-09-28 19:00:00 Mem orial [place] Systolic (mm Hg) 2014-09-28 19:00:00 Bart rial [place] Weight 2014-07-24 18:45:00 [facility] [place] Height 2014-07-24 18:45:00 [facility] [place] Temperature Oral (F) 2014-07-24 18:45:00 99.2 F [facility] [place] Heart Rate 2014-07-24 18:45:00 [facility] [place] Diastolic (mm Hg) 2014-07-24 18:45:00 Mem orial [place] Systolic (mm Hg) 2014-07-24 18:45:00 Bart rial [place] Weight 2014-07-17 17:30:00 [facility] [place] Height 2014-07-17 17:30:00 [facility] [place] Temperature Oral (F) 2014-07-17 17:30:00 99.7 F [facility] [place] Heart Rate 2014-07-17 17:30:00 [facility] [place] Diastolic (mm Hg) 2014-07-17 17:30:00 Mem orial [place] Systolic (mm Hg) 2014-07-17 17:30:00 Bart rial [place] Weight 2014-04-16 15:15:00 [facility] [place] Height 2014-04-16 15:15:00 [facility] [place] Temperature Oral (F) 2014-04-16 15:15:00 98.0 F [facility] [place] Heart Rate 2014-04-16 15:15:00 [facility] [place] Diastolic (mm Hg) 2014-04-16 15:15:00 Mem orial [place] Systolic (mm Hg) 2014-04-16 15:15:00 Bart rial [place] Weight 2014-03-16 15:15:00 [facility] [place] Height 2014-03-16 15:15:00 [facility] [place] Temperature Oral (F) 2014-03-16 15:15:00 98.3 F [facility] [place] Heart Rate 2014-03-16 15:15:00 [facility] [place] Diastolic (mm Hg) 2014-03-16 15:15:00 Mem orial [place] Systolic (mm Hg) 2014-03-16 15:15:00 Bart rial [place] Weight 2013-12-22 21:00:00 [facility] [place] Height 2013-12-22 21:00:00 [facility] [place] Temperature Oral (F) 2013-12-22 21:00:00 98.5 F [facility] [place] Heart Rate 2013-12-22 21:00:00 [facility] [place] Diastolic (mm Hg) 2013-12-22 21:00:00 [facility] [place] Systolic (mm Hg) 2013-12-22 21:00:00 Bart [facility] [place] Weight 2013-12-05 17:00:00 [facility] [place] Height 2013-12-05 17:00:00 [facility] [place] Temperature Oral (F) 2013-12-05 17:00:00 98.3 F [facility] [place] Heart Rate 2013-12-05 17:00:00 [facility] [place] Diastolic (mm Hg) 2013-12-05 17:00:00 [facility] [place] Systolic (mm Hg) 2013-12-05 17:00:00 Bart rial [place] Weight 2013-11-28 15:00:00 [facility] [place] Height 2013-11-28 15:00:00 [facility] [place] Temperature Oral (F) 2013-11-28 15:00:00 98.1 F [facility] [place] Heart Rate 2013-11-28 15:00:00 [facility] [place] Diastolic (mm Hg) 2013-11-28 15:00:00 [facility] [place] Systolic (mm Hg) 2013-11-28 15:00:00 Bart [facility] [place] Weight 2013-10-15 20:30:00 [facility] [place] Height 2013-10-15 20:30:00 [facility] [place] Temperature Oral (F) 2013-10-15 20:30:00 98.3 F [facility] [place] Heart Rate 2013-10-15 20:30:00 [facility] [place] Diastolic (mm Hg) 2013-10-15 20:30:00 [facility] [place] Systolic (mm Hg) 2013-10-15 20:30:00 Bart rial [place] Weight 2013-10-01 19:45:00 [facility] [place] Temperature Oral (F) 2013-10-01 19:45:00 97.9 F [facility] [place] Heart Rate 2013-10-01 19:45:00 [facility] [place] Diastolic (mm Hg) 2013-10-01 19:45:00 Mem [facility] [place] Systolic (mm Hg) 2013-10-01 19:45:00 Bart rial [place] Diastolic (mm Hg) 2013-09-25 14:15:00 [facility] [place] Respitory Rate 2013-09-25 14:15:00 Memori al [place] Systolic (mm Hg) 2013-09-25 14:15:00 Bart [facility] [place] Heart Rate 2013-09-25 14:15:00 [facility] [place] Diastolic (mm Hg) 2013-09-25 14:10:00 Mem [facility] [place] Respitory Rate 2013-09-25 14:10:00 Mem[facility] [place] Systolic (mm Hg) 2013-09-25 14:10:00 Bart rial [place] Heart Rate 2013-09-25 14:10:00 [facility] [place] Respitory Rate 2013-09-25 14:05:00 [facility] [place] Diastolic (mm Hg) 2013-09-25 14:05:00 [facility] [place] Systolic (mm Hg) 2013-09-25 14:05:00 Bart [facility] [place] Heart Rate 2013-09-25 14:05:00 [facility] [place] Heart Rate 2013-09-25 12:13:00 [facility] [place] Temperature Oral (F) 2013-09-25 12:13:00 36.9 Marjorie [facility] [place] Temperature Oral (F) 2013-09-19 18:09:00 37.0 Marjorie [facility] [place] Weight 2013-09-19 18:09:00 [facility] [place] Height 2013-09-19 18:09:00 163 cm [facility] [place] Weight 2013-09-15 19:45:00 [facility] [place] Height 2013-09-15 19:45:00 [facility] [place] Temperature Oral (F) 2013-09-15 19:45:00 98.4 F [facility] [place] Heart Rate 2013-09-15 19:45:00 [facility] [place] Diastolic (mm Hg) 2013-09-15 19:45:00 Mem [facility] [place] Systolic (mm Hg) 2013-09-15 19:45:00 Bart rial [place] Procedures Procedure Date / Time Performing Clinician Source Performed Post Op Promis 29 Survey 2019-04-11 00:00[facility] KNEE 1 OR 2 S 2018-05-15 00:00[facility] [U] XRAY SHOULDER MIN 2 2018-01-11 00:00[id number] [U] XRAY KNEE 1 OR 2 S 2017-09-13 00:00:00 Uni [facility] RIGHT [id number] Physicians Excision, interdigital 2013-09-25 05:00:00 Lyndon Worley) neuroma, single, each Fasciotomy 2013-09-25 05:00:00 Jerilyn matthews Fasciotomy, foot and/or 2013-09-25 05:00:00 Bart Mcneill toe Other excision or avulsion 2013-09-25 05:00:00 Gibson Mcneill of cranial and peripheral nerves Radiologic examination, 2013-09-25 05:00:00 Bart Mcneill chest, 2 views, frontal and lateral; History of no history of Univers [facility] surgery Physicians ACL band replacement [facility] rmann ankle - right [facility] [place] Appendectomy [facility] [place] bunion right foot [facility] Cholecyst[facility] [place] gastro sleeve [facility] [place] Hysterectomy [facility] [place] left total hip [facility] [place] right cataract surgery [facility] [place] Tonsillectomy [facility] [place] Encounters Start End Encounter Admission Attending Care Care Encounter Source Date/Time Date/Time Type Type Clinicians Facility Department ID 2019-07-14 2019-07-14 Appointmen TAMIKA BULL Orthopedics [id number] [facility] 13:25:00 13:25:00 t; Tamir MENDEZ [facility] Tai Rossi M.D. ans 2019-05-27 2019-05[facility] [id number] Univers 10:50:00 10:50:00 t; Tamir MENDEZ - [place] of [place] BULL Physici M.D. ans 2019-05-12 2019-05-12 [facility] [id number] Univers 15:05:00 15:05:00 t; Tamir MENDEZ of [place], [place] Tai MENDEZ M.D. ans 2019-05-12 2019-05-[facility] [id number] Univers 13:50:00 13:50:00 t; [place] Tai MENDEZ M.D. ans 2019-04-14 2019-04-14 [facility] [id number] Univers 14:10:00 14:10:00 t; Tamir MENDEZ - Tomas arnold y of [place] Tai MENDEZ M.D. ans 2019-04-07 2019-04-09 Outpatient [facility] [id number] 08:19:56 17:00:00 Leo 8 2019-04-07 2019-04-07 [facility] [id number] Univers 08:00:00 08:00:00 t; Tamir MENDEZ [place], [place] Tai MENDEZ M.D. ans 2019-03-13 2019-03-[facility] [id number] Univers 15:30:00 15:30:00 t; Tamir MENDEZ [place], [place] Tai MENDEZ M.D. ans 2019-01-20 2019[facility] Orthopedics [id number] Univers 15:55:00 15:55:00 t; Tamir MENDEZ - [place] BULL Physici M.D. ans 2019-01-10 2019-01-10 Outpatient [facility] [id number] eClinic 11:02:00 11:02:00 Primary Primary alWork s Care Information Security Architectmarylu Winn, PA PA 2018-12-11 2018-12-11 AppointTAMIKA Donovan Orthopedics [id number] Univers 14:45:00 14:45:00 t; Tamir MENDEZ - Papo denise of [place], [place] Tai MENDEZ M.D. ans 2018-10-17 2018-10-17 Outpatient [facility] [id number] eClinic 16:59:00 16:59:00 Primary Primary alWork s Care Information Security Architect marylu Jacobs, PA PA 2018-10-01 2018-10-01 Outpatient [facility] [id number] eClinic 14:45:00 14:45:00 Primary Primary alWork s Care Information Security Architectmarylu Winn, PA PA 2018-09-24 2018-09-24 Outpatient [facility] [id number] eClinic 10:00:00 10:00:00 Primary Primary alWork s Care Information Security Architectmarylu Winn, PA PA 2018-07-19 2018-07-19 Outpatient [facility] [id number] eClinic 10:15:00 10:15:00 Primary Primary alWork s Care Information Security Architectmarylu Winn, PA PA 2018-07-11 2018-07-11 Outpatient [facility] [id number] eClinic 15:30:00 15:30:00 Primary Primary alWork s Care Information Security Architectmarylu Winn, PA PA 2018-05-20 2018-05-20 Outpatient [facility] [id number] eClinic 10:30:00 10:30:00 Primary Primary alWork s Care Information Security Architectmarylu Winn, PA PA 2018-05-15 2018-05-[address] [facility] [id number] [facility] 13:55:00 13:55:00 t; Tamir MENDEZ Orthopedic [facility] [place] as Papo MENDEZ M.D. ans 2018-04-24 2018-04-24 Outpatient [facility] [id number] eClinic 11:43:00 11:43:00 Primary Primary alWork s Care Information Security Architect marylu Jacobs, PA PA 2018-04-11 2018-04-11 Outpatient [facility] [id number] eClinic 15:00:00 15:00:00 Primary Primary alWork s Care Information Security Architectmarylu Winn, PA PA 2018-03-19 2018-03-19 TAMIKA Atkins [facility] [id number] Univers 14:40:00 14:40:00 t; Tamir MENDEZ Orthopedic [facility]y [place], Surgery - Andrés as Papo MENDEZ M.D. ans 2018-02-20 2018-02-20 Outpatient [facility] [id number] eClinic 16:00:00 16:00:00 Primary Primary alWork s Care Information Security Architect Arlene s, PA PA 2018-02-06 2018-02-06 Outpatient [facility] [id number] eClinic 15:30:00 15:30:00 Primary Primary alWork s Care Information Security Architect marylu Jacobs, PA PA 2018-02-06 2018-02-06 AppointTAMIKA Donovan [facility] [id number] Univers 14:10:00 14:10:00 t; Tamir MENDEZ [facility]opedic [facility]y [place], Surgery - Andr[place] as Papo MENDEZ M.D. ans 2018-01-24 2018-01-24 Outpatient [facility] [id number] eClinic 14:30:00 14:30:00 Primary Primary alWork s Care Information Security Architect marylu Jacobs, PA PA 2018-01-11 2018-01-11 TAMIKA Atkins [facility] [id number] Univers 10:50:00 10:50:00 t; Tamir MENDEZ Orthopedic [facility]y [place], Surgery - Andrés as Papo MENDEZ M.D. ans 2018-01-10 2018-01-10 Outpatient [facility] [id number] eClinic 14:30:00 14:30:00 Primary Primary alWork s Care Information Security Architect Arlene s, PA PA 2017-12-27 2017-12-27 Outpatient [facility] [id number] eClinic 14:30:00 14:30:00 Primary Primary alWork s Care Information Security Architect Arlene s, PA PA 2017-12-14 2017-12-14 Outpatient [facility] [id number] eClinic 11:00:00 11:00:00 Primary Primary alWork s Care Information Security Architect Arlene s, PA PA 2017-12-13 2017-12-13 Outpatient [facility] [id number] eClinic 15:45:00 15:45:00 Primary Primary alWork s Care Information Security Architect Arlene s, PA PA 2017-12-10 2017-12-10 AppointTAMIKA Donovan [facility] [id number] Univers 15:00:00 15:00:00 t; Tamir MENDEZ [facility]opedic [facility] [place], Surgery - Andrés as Tomas MENDEZ M.D. ans 2017-12-06 2017-12-06 Outpatient [facility] [id number] eClinic 15:15:00 15:15:00 Primary Primary alWork s Care Information Security [employer], s, PA PA 2017-11-29 2017-11-29 Outpatient [facility] [id number] eClinic 15:30:00 15:30:00 Primary Primary alWork s Care [employer], s, PA PA 2017-11-21 2017-11-21 Outpatient [facility] [id number] eClinic 15:00:00 15:00:00 Primary Primary alWork s Care Information [employer], s, PA PA 2017-11-05 2017-11-05 TAMIKA Atkins [facility] [id number] Univers 16:10:00 16:10:00 t; Tamir MENDEZ [facility]opedic [facility]y [place], Surgery - Andrés as Papo MENDEZ M.D. ans 2017-10-16 2017-10-16 Outpatient [facility] [id number] eClinic 10:45:00 10:45:00 Primary Primary alWork s Care Information Security Architect [employer] s PA PA 2017-10-15 2017-10-15 TAMIKA Atkins [facility] [id number] Univers 15:45:00 15:45:00 t; Tamir MENDEZ [facility]opedic [facility]y [place], Surgery - Andrés as Papo MENDEZ M.D. ans 2017-09-24 2017-09-24 Outpatient [facility] [id number] eClinic 13:30:00 13:30:00 Primary Primary alWork s Care Information Security Architect Arlene valero PA PA 2017-09-17 2017-09-17 TAMIKA Atkins [facility] [id number] Univers 15:45:00 15:45:00 t; Tamir MENDEZ [facility] [place], Surgery - Andrés as Papo MENDEZ M.D. ans 2017-09-13 2017-09-13 TAMIKA Atkins [facility] [id number] Univers 15:20:00 15:20:00 t; Tamir MENDEZ [facility] [place], Surgery - Andrés as Papo MENDEZ M.D. 2017-09-10 2017-09-10 Outpatient [facility] [id number] eClinic 13:45:00 13:45:00 Primary Primary alWork s Care Information Security Architect [employer] s PA PA 2017-08-17 2017-08-17 Outpatient [facility] [id number] eClinic 09:30:00 09:30:00 Primary Primary alWork s Care Information Security [employer] s PA PA 2017-08-15 2017-08-15 Outpatient [facility] [id number] eClinic 13:31:00 13:31:00 Primary Primary alWork s Care Information Security Architect [employer] s PA PA 2017-08-14 2017-08-14 Outpatient [facility] [id number] eClinic 14:22:00 14:22:00 Primary Primary alWork s Care Information Security Architect [employer] s PA PA 2017-07-19 2017-07-19 Outpatient [facility] [id number] eClinic 15:10:00 15:10:00 Primary Primary alWork s Care Information Security [employer] s PA PA 2017-07-05 2017-07-05 Outpatient [facility] [id number] eClinic 10:45:00 10:45:00 Primary Primary alWork s Care Information Security [employer] s PA PA 2017-06-19 2017-06-19 Outpatient [facility] [id number] eClinic 17:01:00 17:01:00 Primary Primary alWork s Care Information Security [employer] s PA PA 2017-06-06 2017-06-06 Outpatient [facility] [id number] eClinic 11:00:00 11:00:00 Primary Primary alWork s Care Information Security [employer] s PA PA 2017-05-30 2017-05-30 Outpatient [facility] [id number] eClinic 10:53:00 10:53:00 Primary Primary alWork s Care Information Security [employer] s PA PA 2017-05-17 2017-05-17 Outpatient [place], [id number] 08:07:10 11:54:00 Philip English 2017-05-11 2017-05-11 Outpatient [facility] [id number] eClinic 09:45:00 09:45:00 Primary Primary alWork s Care Information Security [employer] s PA PA 2017-05-08 2017-05-08 Outpatient [facility] [id number] eClinic 08:40:00 08:40:00 Primary Primary alWork s Care Information Security [employer] s PA PA 2017-05-03 2017-05-03 Outpatient [facility] [id number] eClinic 15:15:00 15:15:00 Primary Primary alWork s Care Information Security [employer] s PA PA 2017-04-26 2017-04-26 Outpatient [facility] [id number] eClinic 09:45:00 09:45:00 Primary Primary alWork s Care Information Security [employer] s PA PA 2017-02-14 2017-02-14 Outpatient [facility] [id number] eClinic 15:15:00 15:15:00 Primary Primary alWork s Care Information Security [employer] s PA PA 2017-02-06 2017-02-06 Outpatient [facility] [id number] eClinic 14:54:00 14:54:00 Primary Primary alWork s Care Information Security [employer] s PA PA 2017-02-06 2017-02-06 Outpatient [facility] [id number] eClinic 14:47:00 14:47:00 Primary Primary alWork s Care Information Security Architect [employer] s PA PA 2017-01-31 2017-01-31 Outpatient [facility] [id number] eClinic 10:45:00 10:45:00 Primary Primary alWork s Care Information Security [employer] s PA PA 2017-01-30 2017-01-30 Outpatient [facility] [id number] eClinic 09:37:00 09:37:00 Primary Primary alWork s Care Information Security [employer] s PA PA 2016-11-30 2016-11-30 Outpatient [facility] [id number] eClinic 09:15:00 09:15:00 Primary Primary alWork s Care Information Security [employer] s PA PA 2016-09-15 2016-09-15 Outpatient [facility] [id number] eClinic 09:30:00 09:30:00 Primary Primary alWork s Care Information Security [employer] s PA PA 2016-08-29 2016-08-29 Outpatient [facility] [id number] eClinic 11:29:00 11:29:00 Primary Primary alWork s Care Information Security [employer] s, PA PA 2016-08-18 2016-08-18 Outpatient [facility] [id number] eClinic 10:41:00 10:41:00 Primary Primary alWork s Care Information Security Architect Arlene s, PA PA 2016-08-16 2016-08-16 Outpatient [facility] [id number] eClinic 08:29:00 08:29:00 Primary Primary alWork s Care Information [employer] s, PA PA 2016-08-11 2016-08-11 Outpatient [facility] [id number] eClinic 10:39:00 10:39:00 Primary Primary alWork s Care Information Security [employer] s, PA PA 2016-07-19 2016-07-19 Outpatient [facility] [id number] eClinic 10:07:00 10:07:00 Primary Primary alWork s Care Information Security Architect Arlene s, PA PA 2016-06-22 2016-06-22 Outpatient [facility] [id number] eClinic 11:32:00 11:32:00 Primary Primary alWork s Care Information Security Architect Arlene s, PA PA 2016-06-01 2016-06-01 Outpatient [facility] [id number] eClinic 14:45:00 14:45:00 Primary Primary alWork s Care Information Security Architect Arlene s, PA PA 2016-04-20 2016-04-20 Outpatient [facility] [id number] eClinic 14:30:00 14:30:00 Primary Primary alWork s Care Information Security Architect Arlene s, PA PA 2016-03-21 2016-03-21 Outpatient [facility] [id number] eClinic 14:30:00 14:30:00 Primary Primary alWork s Care Information Security Architect Arlene s, PA PA 2016-02-09 2016-02-09 Outpatient [facility] [id number] eClinic 08:45:00 08:45:00 Primary Primary alWork s Care Information Security Architect Arlene s, PA PA 2016-02-02 2016-02-02 Outpatient [facility] [id number] eClinic 11:04:00 11:04:00 Primary Primary alWork s Care Information Security Architect Arlene s, PA PA 2016-01-10 2016-01-10 Outpatient [facility] [id number] eClinic 09:18:00 09:18:00 Primary Primary alWork s Care Information Security Architect Arlene s, PA PA 2016-01-07 2016-01-07 Outpatient [facility] [id number] eClinic 09:39:00 09:39:00 Primary Primary alWork s Care Information Security Architect Arlene s, PA PA 2015-10-27 2015-10-27 Outpatient [facility] [id number] eClinic 15:45:00 15:45:00 Primary Primary alWork s Care Information Security Architect Arlene s, PA PA 2015-08-27 2015-08-27 Outpatient [facility] [id number] eClinic 08:12:00 08:12:00 Primary Primary alWork s Care Information Security Architect Arlene s, PA PA 2015-07-05 2015-07-05 Outpatient [facility] [id number] eClinic 11:15:00 11:15:00 Primary Primary alWork s Care Information Security [employer], s, PA PA 2015-06-21 2015-06-21 Outpatient [facility] [id number] eClinic 11:24:00 11:24:00 Primary Primary alWork s Care Information Security Architect Arlene s, PA PA 2015-06-04 2015-06-04 Outpatient [facility] [id number] eClinic 10:45:00 10:45:00 Primary Primary alWork s Care Information Security Architect Arlene s, PA PA 2015-06-04 2015-06-04 Outpatient [facility] [id number] eClinic 10:45:00 10:45:00 Primary Primary alWork s Care Information Security Architect Arlene s, PA PA 2015-02-15 2015-02-15 Outpatient [facility] [id number] eClinic 14:30:00 14:30:00 Primary Primary alWork s Care Information Security Architect Arlene s, PA PA 2015-01-19 2015-01-19 Outpatient [facility] [id number] eClinic 15:37:00 15:37:00 Primary Primary alWork s Care Information Security Architect Arlene s, PA PA 2015-01-15 2015-01-15 Outpatient [facility] [id number] eClinic 11:00:00 11:00:00 Primary Primary alWork s Care Information Security Architect Arlene s, PA PA 2014-09-28 2014-09-28 Outpatient [facility] [id number] eClinic 14:00:00 14:00:00 Primary Primary alWork s Care Information Security Architect Arlene s, PA PA 2014-07-24 2014-07-24 Outpatient [facility] [id number] eClinic 12:45:00 12:45:00 Primary Primary alWork s Care Information Security Architect Arlene s, PA PA 2014-07-17 2014-07-17 Outpatient [facility] [id number] eClinic 11:30:00 11:30:00 Primary Primary alWork s Care Information Security Architect Arlene s, PA PA 2014-07-13 2014-07-13 Outpatient [facility] [id number] eClinic 16:14:00 16:14:00 Primary Primary alWork s Care Information Security Architect Arlene s, PA PA 2014-06-08 2014-06-08 Outpatient [facility] [id number] eClinic 16:00:00 16:00:00 Primary Primary alWork s Care Information Security Architect Arlene s, PA PA 2014-04-16 2014-04-16 Outpatient [facility] [id number] eClinic 09:15:00 09:15:00 Primary Primary alWork s Care Information Security Architect Arlene s, PA PA 2014-03-18 2014-03-18 Outpatient [facility] [id number] eClinic 15:16:00 15:16:00 Primary Primary alWork s Care Information Security Architect marylu Jacobs, PA PA 2014-03-16 2014-03-16 Outpatient [facility] [id number] eClinic 10:15:00 10:15:00 Primary Primary alWork s Care Information Security ArchitectAssociate Jacobs s, PA PA 2014-01-08 2014-01-08 Outpatient [facility] [id number] eClinic 16:42:00 16:42:00 Primary Primary alWork s Care Information Security Architect Arlene s, PA PA 2014-01-08 2014-01-08 Outpatient [facility] [id number] eClinic 14:59:00 14:59:00 Primary Primary alWork s Care Information Security Architect Arlene s, PA PA 2013-12-29 2013-12-29 Outpatient [facility] [id number] eClinic 15:03:00 15:03:00 Primary Primary alWork s Care Information Security ArchitectAssociate Jacobs s, PA PA 2013-12-22 2013-12-22 Outpatient [facility] [id number] eClinic 16:00:00 16:00:00 Primary Primary alWork s Care Information Security Architect Arlene s, PA PA 2013-12-05 2013-12-05 Outpatient [facility] [id number] eClinic 12:00:00 12:00:00 Primary Primary alWork s Care Information Security Architect Arlene s, PA PA 2013-12-01 2013-12-01 Outpatient [facility] [id number] eClinic 11:02:00 11:02:00 Primary Primary alWork s Care Information Security ArchitectAssociate Jacobs s, PA PA 2013-11-28 2013-11-28 Outpatient [facility] [id number] eClinic 10:00:00 10:00:00 Primary Primary alWork s Care Information Security ArchitectAssociate Jacobs s, PA PA 2013-10-15 2013-10-15 Outpatient [facility] [id number] eClinic 15:30:00 15:30:00 Primary Primary alWork s Care Information Security ArchitectAssociate Jacobs s, PA PA 2013-10-01 2013-10-01 Outpatient [facility] [id number] eClinic 14:45:00 14:45:00 Primary Primary alWork s Care Information Security ArchitectAssociate Jacobs s, PA PA 2013-09-25 2013-09-25 Outpatient [facility] [id number] [facility] 06:26:43 09:30:00 [facility] 2013-09-24 2013-09-24 Outpatient [facility] [id number] eClinic 12:23:00 12:23:00 Primary Primary alWork s Care Information Security Architect [employer], sNAEEM Results Test Description Test Time Test Comments Results Result Sourc parag Comments [U] XRAY KNEE 1 2019-07-02 Images acquired, not [facility] [place] 2 VWS LEFT 3 reported on this [place] [id number] 13:10:00 accession number. Tai johnson [U] XRAY KNEE 1 2019-05-03 Images acquired, not [facility] [place] 2 VWS LEFT 6 reported on this [place] [id number] 10:53:00 accession number. Tai johnson SURGICAL 2019-04-01 SPECIMENS 5 10:42:00 RUN DATE: 04/15/19 [facility] - LAB PAGE 1 RUN TIME: 1042 Specimen Inquiry RUN USER: INTERFACE PATIENT: CANDACE DUPREE LOC: [id number] U #: [id number] AGE/SX: 63/F ROOM: RE04/08/19REG DR: Leo Bull : 53 BED: DIS: STATUS: REG REF TLOC: SPEC #: [id number] RECD: 04/07/19 STATUS: GLENNA ANGELES #: [id number] SATINDER: 04/07/19-[address]: Leo Bull MD [...] in aggregate. The articular surface ranges from yellow-ruead and smooth and glistening to rueda-brown and granular; there are foci of pale, rueda-pink eburnation. Sections show yellow-rudea to firm cut-surfaces with no area or softening. Tree Feller decalcified sections are submitted by the NAEEM [...] 7 [place] 15:04:00 LABORATORY 22 [facility] [place] 15:04:00 LABORATORY 0.9 [facility] [place] 15:04:00 LABORATORY 38 [facility] [place] 15:04:00 LABORATORY 12.9 [facility] [place] 15:04:00 LABORATORY 142 [facility] [place] 15:04:00 LABORATORY 29 [facility] [place] 15:04:00 LABORATORY 1.22 [facility] [place] 15:04:00 LABORATORY 129 [facility] [place] 15:04:00 LABORATORY 104 [facility] [place] 15:04:00 LABORATORY 4.4 [facility] 7 [place] 15:04:00 LABORATORY 2019-03-03 0.1 [facility] [place] 17:26:00 LABORATORY 2019-03-03 0.2 [facility] 5 [place] 17:26:00 LABORATORY 2019-03-03 0.7 [facility] 5 [place] 17:26:00 LABORATORY 2019-03-03 5.6 [facility] [place] 17:26:00 LABORATORY 2019-03-03 1.5 [facility] 5 [place] 17:26:00 LABORATORY 2019-03-03 0.8 [facility] 5 [place] 17:26:00 LABORATORY 2019-03-03 1.9 [facility] 5 [place] 17:26:00 LABORATORY 2019-03-03 18.7 [facility] 5 [place] 17:26:00 LABORATORY 2019-03-03 68.9 [facility] [place] 17:26:00 LABORATORY 2019-03-03 9.8 [facility] [place] 17:26:00 LABORATORY 2019-03-03 13.8 [facility] [place] 17:26:00 LABORATORY 2019-03-03 36.4 [facility] [place] 17:26:00 LABORATORY 2019-03-03 96.8 [facility] [place] 17:26:00 LABORATORY 2019-03-26 17:26:00 Test Item Value Reference Range Interpretation Comme nts MCH (test code = MCH) 32.2 pg 27.0-31.0 [facility] CenterLewfnqkSSFBHRFHEG9743-34-66 17:26:0033.3[facility] 2019-03-26 17:26:008.2[facility] EaevompOGGDRWZCFX9158-23-24 17:26:003.76[facility] PjfpznlAJPVAHQBLA0663-43-69 17:26:0012.1[facility] MgnubytTYUCJRUMAY4141-69-12 17:26:74132WuzvaxxtNorth [facility] CampusNiuzafhRUIQYRJUGQ8301-24-02 17:26:008.4[facility]2019-09-25 17:26:00Reported (03/26/19 12:26 PM)[facility]2019-09-25 17:26:0052[facility]ori[facility] CampusNjfwnayAKEUHXAJSL6790-99-02 17:26:004 [facility] CenterWofzmvpTDGSYBXKHE1166-92-72 17:26:001[facility] 2019-03-26 17:26:00 Test Item Value Reference Range Interpretation Comments UA pH (test code = UA pH) 5.0 1 5.0-8.0 [facility] CenterHtrgrwpPQGJPWHCWW4793-83-52 17:26:00 Test Item Value Reference Range Interpretation Comments UA Spec Grav (test code = UA Spec 1.019 1 Grav) [facility] CenterGcsnkruSKOHVBQRKT4432-08-47 17:26:00<=1.0[facility]LAB[facility] 2019-03-26 17:26:0082[facility] QxiktiuPFOZNLQBMO1944-22-75 17:26:009.1[facility] HendersonJmfhsulNAFIOGAISC8824-16-64 17:26:0030[facility] LhbhirbSZWGADWPGG4023-54-82 17:26:0020[facility]oriB[facility] Mar[facility] FallsVfwtbovUBOXMFSMTD9985-02-29 17:26:000.3[facility] 17:26:0062[facility]oriB[facility] Mar[facility] FallsBspadurJZBLCVONSQ7663-04-01 17:26:00 Test Item Value Reference Range Interpretation Comments Alb/Glob Ratio (test code = Alb/Glob 1.2 1 0.7-1.6 Ratio) [facility] CenterQezuhzeDBSROCGRCS2355-47-90 17:26:007.1[facility] HermannLABORATORY 2019-03-26 17:26:003.8[facility] OjrlaxmSAVQUHMIAN1580-34-54 17:26:003.3MWood[facility] Heights Medical CenterRwtfchlFCPRGSWJDB2915-18-88 17:26:0094[facility] AvsuxcuXWEQSHYBER1476-56-70 17:26:0025Mescrial IbpwoifONRKOUQMOE5892-69-28 17:26:000.97Mescrial [place] JVHQBQOAWB2797-52-32 17:26:0012.3MWoodland Heights Medical CenterOokwvgwZKSKCVSWTV4449-68-68 17:26:0030 [facility] CenterGjmhowoSNGCNFALTV0769-23-13 17:26:20551Drkwzpaz [facility]annLABORANORTHSH[facility] 2019-03-26 17:26:12125Ethzghyb XnkkraxDNCGKQRMZZ0586-21-80 17:26:005.3MWoodland Heights Medical CenterFrupbkwPQTZPFRORU5607-38-79 17:26:00 Test Item Value Reference Range Interpretation Comments PTT (test code = PTT) 28.5 s 22.9-35.8 [facility] CenterVwyrmzrQMJFNTPOBN0661-49-14 17:26:00 Test Item Value Reference Range Interpretation Comments PT (test code = PT) 12.6 s 12.0-14.7 [facility] CenterPexrguwWDCBRJKTDX3748-40-49 17:26:00 Test Item Value Reference Range Interpretation Comments INR (test code = INR) 0.96 1 0.85-1.17 [facility][U] XR KNEE 1 OR 2 VWS [id number] 13:50:00Images acquired, not reported on this accession number.[facility] [U] XRAY HIPS BILATERAL MIN 2 VWS AND AP PELVIS [id number] 14:08:00Images acquired, not reported on this accession number.[facility] [U] XRAY SHOULDER MIN 2 VWS RIGHT [id number] 10:43:00Images acquired, not reported on this accession number.[facility][U] XRAY SHOULDER MIN 2 VWS LEFT [id number] 10:42:00Images acquired, not reported on this accession number.[facility][U] XRAY KNEE 1 OR 2 VWS LEFT [id number] 16:26:00Images acquired, not reported on this accession number.[facility] PhysiciansTobacco Use Buouupnvz2856-60-10 15:20:00 Test Item Value Reference Range Interpretation Comments Completed (test code = Completed) DONE [facility] XhvwgfehxhMUNQKJBGYI3454-49-83 14:56:00 Test Item Value Reference Range Interpretation Comments PTT (test code = PTT) 28.6 s 22.9-35.8 [facility] SoqmgvzYKDOUHFIZV6992-69-87 14:56:0082[facility] HermannLABORATORY 2017-05-10 14:56:0023[facility] IdhsmqfCTUQHCEGEP6317-34-14 14:56:000.78[facility] UxqtckkWRAOBKFBPY0371-32-73 14:56:0085[facility] WzauwufKHYCOFYTVQ5377-97-62 14:56:51509Jxaieuya ToatdpwMYFIIDGPBH9506-34-12 14:56:004.8[facility] [place] HXUVAKSRAO8430-52-28 14:56:51437Eudmjhsd SyziuciXJMKQSXTVI5620-59-55 14:56:009.1 [facility] ChktspnUPLIRCTRXC9517-60-62 14:56:0010.8[facility] HermannLABORATORY 2017-05-10 14:56:0030[facility] XnopncyWZXHGTDHLM2552-02-95 14:56:00 Test Item Value Reference Range Interpretation Comments PT (test code = PT) 13.2 s 12.0-14.7 [facility] DfjpytfFMKRLNBMVC2279-90-69 14:56:001.00[facility] HermannLABORATORY 2017-05-10 14:56:0037.8[facility] UftllkuFBYJOXSLRA9912-64-23 14:56:0012.5[facility] VboxhscRRUCGFIJSK2613-04-24 14:56:002.1[facility] [place]
[2020-07-15 17:08] LABS: Urine Blood NEGATIVE (NEG); Urine Glucose NEGATIVE (NEG); Urine Protein NEGATIVE (NEG); Urine Specific Gravity 1.025 (1.005-1.030); Urine pH 6.5 (5.0-7.0)
[2020-07-15 17:29] LABS: Urine Bacteria >50 /HPF (<20); Urine Mucus 1+ /HPF (NONE SEEN); Urine RBC <5 /HPF (NONE SEEN)
[2020-07-15 17:33] LABS: Potassium 4.4 mmol/L (3.5-5.1)
[2020-07-15 17:41] LABS: Absolute Lymphocytes (CBC) 1.3 K/uL (0.7-4.9); Basophils % 0.7 % (0-1.3); Hematocrit 30.2 % (36.0-45.0); Lymphocytes % 16.1 % (15.3-44.8); MPV 8.5 fL (7.6-11.3); RBC Red Blood Cell Count 3.31 M/uL (3.86-4.86)
[2020-07-15] MEDS ORDERED: CEFTRIAXONE 1000 MG/VIAL ONE (18:49)
--- NOTE | 2020-07-15 18:55 | ER ---
Nurse's Notes [facility] Name: Guerline Castellanos Age: 64 yrs Sex: Female : 1955 Arrival Date: 07/15/2020 Time: 15:28 Bed 25 Private MD: Ino Trujillo Diagnosis: Urinary tract infection, site not specified;Altered mental status, unspecified Presentation: 07/15 15:36 Chief complaint: Patient's son or daughter states: Son: we were on our way to the [facility] urologist and when I came to pick her up on our way she asked me where we were going 3x. She is licking her lips too much like she is dehydrated. Alert and Oriented to person and place. Also, I laid out her meds for the day, morning and evening and I check today, the meds she's supposed to take tonight are gone but I don't know if she took them today or yesterday cause it was good for 2 days. This happened before and it was a UTI. She has been not herself for the last few days, and kind of progressing. Denies weakness. VAN negative. Coronavirus screen: Client denies travel out of the [place] in the last 14 days. At this time, the client does not indicate any symptoms associated with coronavirus-19. Ebola Screen: Patient negative for fever greater than or equal to 101.5 degrees Fahrenheit, and additional compatible Ebola Virus Disease symptoms Patient denies exposure to infectious person. Patient denies travel to an Ebola-affected area in the 21 days before illness onset. No symptoms or risks identified at this time. Initial Sepsis Screen: Does the patient meet any 2 criteria? No. Patient's initial sepsis screen is negative. Does the patient have a suspected source of infection? No. Patient's initial sepsis screen is negative. Risk Assessment: Do you want to hurt yourself or someone else? Patient reports no desire to harm self or others. Onset of symptoms was July 15, 2020. 15:36 Method Of Arrival: Wheelchair ca1 15:36 Acuity: ABIODUN 2 ca1 Historical: - Allergies: 15:44 Sulfa (Sulfonamide Antibiotics); ca1 15:44 Bactrim; ca1 - Home Meds: 15:44 alendronate 70 mg Oral tab once wkly [Active]; aspirin 81 mg Oral TbEC 1 tab once daily ca1 [Active]; clopidogrel 75 mg Oral tab once daily [Active]; Levemir 100 unit/mL subcutaneous tab [Active]; lisinopril 20 mg Oral tab [Active]; Myrbetriq 50 mg Oral Tb24 [Active]; pravastatin 20 mg Oral tab 1 tab once daily [Active]; Symbicort 80-4.5 mcg/actuation inhalation HFAA 2 puffs 2 times per day [Active]; Vimovo 500-20 mg Oral TbID 1 tab 2 times per day [Active]; - PMHx: 15:44 COPD; Diabetes - IDDM; Hyperlipidemia; Hypertension; ca1 - PSHx: 15:44 Knee surgery; Appendectomy; Tonsillectomy; Hysterectomy; Cholecystectomy; ca1 - Immunization history:: Pneumococcal vaccine is up to date, Flu vaccine is up to date. - Social history:: Smoking status: Patient/guardian denies using tobacco, the patient reports quitting approximately 2 years ago. Screenin:30 Abuse screen: Denies threats or abuse. Nutritional screening: No deficits noted. jd3 Tuberculosis screening: No symptoms or risk factors identified. Fall Risk Ambulatory Aid- None/Bed Rest/Nurse Assist (0 pts). Gait- Normal/Bed Rest/Wheelchair (0 pts) Mental Status- Oriented to own ability (0 pts). Total Cerrato Fall Scale indicates No Risk (0-24 pts). Assessment: 16:26 General: Appears in no apparent distress. comfortable, Behavior is calm, cooperative, jd3 appropriate for age. Pain: Denies pain. Neuro: Level of Consciousness is awake, alert, obeys commands, confused, Oriented to person, place, Moves all extremities. Full function Gait is steady, Speech is normal, Facial symmetry appears normal, Pupils are PERRLA. Cardiovascular: Denies chest pain, Heart tones S1 S2 present Capillary refill < 3 seconds Patient's skin is warm and dry. Respiratory: Airway is patent Respiratory effort is even, unlabored, Respiratory pattern is regular, symmetrical, Breath sounds are clear bilaterally. Denies cough, shortness of breath. GI: No signs and/or symptoms were reported involving the gastrointestinal system. Abdomen is round non-distended, Bowel sounds present X 4 quads. Abd is soft and non tender X 4 quads. Patient currently denies abdominal pain, constipation, diarrhea, nausea, vomiting. :. EENT: Parent/caregiver reports the patient having "last time this happened when she got confused, it was a UTI.". Derm: Skin is intact, Skin is dry, Skin is normal, Skin temperature is warm. Musculoskeletal: Circulation, motion, and sensation intact. Range of motion: intact in all extremities. 17:13 Reassessment: Patient appears in no apparent distress at this time. No changes from jd3 previously documented assessment. Patient and/or family updated on plan of care and expected duration. Pain level reassessed. Patient denies pain at this time. 18:35 Reassessment: Patient appears in no apparent distress at this time. No changes from jd3 previously documented assessment. Patient and/or family updated on plan of care and expected duration. Pain level reassessed. pt resting in bed, denies any pain or discomfort at this time. updated on plan of care Patient denies pain at this time. 19:05 Reassessment: Patient appears in no apparent distress at this time. Patient and/or jd3 family updated on plan of care and expected duration. Pain level reassessed. family called and notified of discharge, family reported they were on the way. pt with even and unlabored respirations, A\\T\\O X [address] pt denies pain or discomfort at this time. Vital Signs: 15:36 Pulse 73; Resp 18 S; Temp 97.5(TE); Pulse Ox 94% on R/A; Weight 123.38 kg (R); Height 5 ca1 ft. 4 in. (162.56 cm) (R); Pain 0/10; 15:46 BP 129 / 78; ca1 17:13 BP 145 / 76; Pulse 73; Resp 18 S; Pulse Ox 99% on R/A; jd3 18:36 BP 135 / 80; Pulse 72; Resp 16 S; Pulse Ox 100% on R/A; jd3 19:06 BP 128 / 96; Pulse 73; Resp 17 S; Pulse Ox 98% on R/A; jd3 15:36 Body Mass Index 46.69 (123.38 kg, 162.56 cm) ca1 ED Course: 15:28 Patient arrived in ED. ag5 15:28 Ino Trujillo MD is Private Physician. ag5 15:37 Camron Felix MD is Attending Physician. kdr 15:43 Triage completed. ca1 15:44 Arm band placed on right wrist. EKG completed in triage. Results shown to MD. EKG ca1 completed in triage. Results shown to MD. 16:25 Theron Whitaker RN is Primary Nurse. jd3 16:30 Patient has correct armband on for positive identification. Placed in gown. Bed in low jd3 position. Call light in reach. Side rails up X2. Pulse ox on. NIBP on. 17:13 Chem 7 Sent. jd3 17:13 CBC with Diff Sent. jd3 17:13 Missed attempt(s): 20 gauge in right antecubital area. Bleeding controlled, band aid jd3 applied, catheter tip intact. 18:35 Straight cath inserted, using sterile technique, 16 Fr. Specimen obtained. Returned jd3 cloudy urine. Patient tolerated well. 18:54 Ino Trujillo MD is Referral Physician. kdr 19:06 No provider procedures requiring assistance completed. Patient did not have IV access jd3 during this emergency room visit. Administered Medications: 18:42 Not Given (Physician Discretion): Rocephin 1 grams IV at calculated rate once; Given jd3 slow IV push per pharmacy instructions 18:43 Drug: Rocephin (cefTRIAXone) 1 grams Route: IM; Site: right gluteus; jd3 19:07 Follow up: Response: No adverse reaction jd3 Outcome: 18:54 Discharge ordered by . kdr 19:40 Patient left the ED. sg Signatures: Alec Bernal RN RN sg Rittger, Kevin, MD MD kdr Davies, Jonathon, RN RN jd3 Acob, Cheryl, RN RN [facility] [place] Lester ag5 Corrections: (The following items were deleted from the chart) 16:08 15:36 Chief complaint: Patient's son or daughter states: Son: we were on our way to the ca1 urologist and when I came to pick her up on our way she asked me where we were going 3x. She is licking her lips too much like she is dehydrated. Alert and Oriented to person and place. Also, I laid out her meds for the day, morning and evening and I check today, the meds she's supposed to take tonight are gone but I don't know if she took them today or yesterday cause it was good for 2 days. This happened before and it was a UTI. She has been not herself for the last few days, and kind of progressing. ca1
--- NOTE | 2020-07-15 18:55 | EDPHYS ---
Physician Documentation [facility] Name: Guerline Castellanos Age: 64 yrs Sex: Female : 1955 Arrival Date: 07/15/2020 Time: 15:28 Bed 25 Private MD: Ino Trujillo ED Physician Camron Felix HPI: 07/15 16:38 This 64 yrs old Female presents to ER via Wheelchair with complaints of kdr Altered Mental Status. 16:38 The patient presents with confusion. Onset: The symptoms/episode began/occurred at an kdr unknown time. 17:14 Possible causes: UTI. Associated signs and symptoms: Pertinent positives: confusion, kdr Pertinent negatives: abdominal pain, agitation, chest pain, combativeness, diaphoresis, dizziness, headache, lightheadedness, numbness, seizure, vomiting, weakness. Current symptoms: In the emergency department the patient's symptoms are unchanged from the initial presentation. Patient's baseline: Neuro: alert and fully oriented, Motor: no deficits, Ambulation: walks without assistance, Speech: normal, normal for age. It is unknown whether or not the patient has had similar symptoms in the past. It is unknown whether or not the patient has recently seen a physician. Son brought her for confusion and possible UTI as she has had in the past. Historical: - Allergies: 15:44 Sulfa (Sulfonamide Antibiotics); ca1 15:44 Bactrim; ca1 - Home Meds: 15:44 alendronate 70 mg Oral tab once wkly [Active]; aspirin 81 mg Oral TbEC 1 tab once daily ca1 [Active]; clopidogrel 75 mg Oral tab once daily [Active]; Levemir 100 unit/mL subcutaneous tab [Active]; lisinopril 20 mg Oral tab [Active]; Myrbetriq 50 mg Oral Tb24 [Active]; pravastatin 20 mg Oral tab 1 tab once daily [Active]; Symbicort 80-4.5 mcg/actuation inhalation HFAA 2 puffs 2 times per day [Active]; Vimovo 500-20 mg Oral TbID 1 tab 2 times per day [Active]; - PMHx: 15:44 COPD; Diabetes - IDDM; Hyperlipidemia; Hypertension; ca1 - PSHx: 15:44 Knee surgery; Appendectomy; Tonsillectomy; Hysterectomy; Cholecystectomy; ca1 - Immunization history:: Pneumococcal vaccine is up to date, Flu vaccine is up to date. - Social history:: Smoking status: Patient/guardian denies using tobacco, the patient reports quitting approximately 2 years ago. ROS: 17:14 Constitutional: Negative for fever, chills, and weight loss, Eyes: Negative for injury, kdr pain, redness, and discharge, ENT: Negative for injury, pain, and discharge, Neck: Negative for injury, pain, and swelling, Cardiovascular: Negative for chest pain, palpitations, and edema, Respiratory: Negative for shortness of breath, cough, wheezing, and pleuritic chest pain, Abdomen/GI: Negative for abdominal pain, nausea, vomiting, diarrhea, and constipation, Back: Negative for injury and pain, : Negative for injury, bleeding, discharge, and swelling, MS/Extremity: Negative for injury and deformity, Skin: Negative for injury, rash, and discoloration, Neuro: Negative for headache, weakness, numbness, tingling, and seizure activity. Psych: Negative for depression, anxiety, suicide ideation, homicidal ideation, and hallucinations, Allergy/Immunology: Negative for hives, rash, and allergies, Endocrine: Negative for neck swelling, polydipsia, polyuria, polyphagia, and marked weight changes, Hematologic/Lymphatic: Negative for swollen nodes, abnormal bleeding, and unusual bruising. Exam: 17:14 Constitutional: This is a well developed, well nourished patient who is awake, alert, kdr and in no acute distress. Head/Face: Normocephalic, atraumatic. Eyes: Pupils equal round and reactive to light, extra-ocular motions intact. Lids and lashes normal. Conjunctiva and sclera are non-icteric and not injected. Cornea within normal limits. Periorbital areas with no swelling, redness, or edema. Neck: Trachea midline, no thyromegaly or masses palpated, and no cervical lymphadenopathy. Supple, full range of motion without nuchal rigidity, or vertebral point tenderness. No Meningismus. Chest/axilla: Normal chest wall appearance and motion. Nontender with no deformity. No lesions are appreciated. Cardiovascular: Regular rate and rhythm with a normal S1 and S2. No gallops, murmurs, or rubs. Normal PMI, no JVD. No pulse deficits. Respiratory: Lungs have equal breath sounds bilaterally, clear to auscultation and percussion. No rales, rhonchi or wheezes noted. No increased work of breathing, no retractions or nasal flaring. Abdomen/GI: Soft, non-tender, with normal bowel sounds. No distension or tympany. No guarding or rebound. No evidence of tenderness throughout. Back: No spinal tenderness. No costovertebral tenderness. Full range of motion. Skin: Warm, dry with normal turgor. Normal color with no rashes, no lesions, and no evidence of cellulitis. MS/ Extremity: Pulses equal, no cyanosis. Neurovascular intact. Full, normal range of motion. Psych: Awake, alert, with orientation to person, place and time. Behavior, mood, and affect are within normal limits. 17:14 Psych: Behavior/mood is pleasant, cooperative, Affect is flat. Vital Signs: 15:36 Pulse 73; Resp 18 S; Temp 97.5(TE); Pulse Ox 94% on R/A; Weight 123.38 kg (R); Height 5 ca1 ft. 4 in. (162.56 cm) (R); Pain 0/10; 15:46 BP 129 / 78; ca1 17:13 BP 145 / 76; Pulse 73; Resp 18 S; Pulse Ox 99% on R/A; jd3 18:36 BP 135 / 80; Pulse 72; Resp 16 S; Pulse Ox 100% on R/A; jd3 19:06 BP 128 / 96; Pulse 73; Resp 17 S; Pulse Ox 98% on R/A; jd3 15:36 Body Mass Index 46.69 (123.38 kg, 162.56 cm) ca1 MDM: 17:14 Data reviewed: vital signs, nurses notes, lab test result(s), radiologic studies. kdr Counseling: I had a detailed discussion with the patient and/or guardian regarding: the historical points, exam findings, and any diagnostic results supporting the discharge/admit diagnosis, lab results, the need for outpatient follow up. 18:54 Patient medically screened. kdr 07/15 16:35 Order name: Urine Microscopic Only; Complete Time: 18:54 jd3 07/15 16:37 Order name: CBC with Diff; Complete Time: 18:54 kdr 07/15 16:37 Order name: Chem 7; Complete Time: 18:54 kdr 07/15 16:38 Order name: Urine Culture kdr 07/15 16:39 Order name: Urine Dipstick--Ancillary (enter results); Complete Time: 17:14 em1 07/15 16:35 Order name: Urine Dipstick-Ancillary (obtain specimen); Complete Time: 16:35 jd3 07/15 16:38 Order name: Urine Dipstick-Ancillary (obtain specimen): cath; Complete Time: 16:39 kdr 07/15 18:35 Order name: Cath; Complete Time: 18:35 jd3 Administered Medications: 18:42 Not Given (Physician Discretion): Rocephin 1 grams IV at calculated rate once; Given jd3 slow IV push per pharmacy instructions 18:43 Drug: Rocephin (cefTRIAXone) 1 grams Route: IM; Site: right gluteus; jd3 19:07 Follow up: Response: No adverse reaction jd3 Disposition: 07/15/20 18:54 Discharged to Home. Impression: Urinary tract infection, site not specified, Altered mental status, unspecified. - Condition is Stable. - Discharge Instructions: Confusion, Urinary Tract Infection, Adult, Twyi-nr-Sjae. - Prescriptions for Macrobid 100 mg Oral Capsule - take 1 capsule by ORAL route every 12 hours for 10 days; 20 capsule. - Medication Reconciliation Form, Thank You Letter, Antibiotic Education form. - Follow up: Ino Trujillo MD; When: 2 - 3 days; Reason: If symptoms return, Further diagnostic work-up, Recheck today's complaints, Continuance of care, Re-evaluation by your physician. - Problem is new. - Symptoms have improved. Signatures: Dispatcher [employer] [facility] Alec Bernal RN RN sg Camron Felix MD MD kdr Davies, Jonathon, RN RN jd3 Kristyn Cummings RN RN ca1 Corrections: (The following items were deleted from the chart) 18:12 16:39 Urine Culture+BA.LAB.BRZ ordered. [facility] 19:40 18:54 07/15/2020 18:54 Discharged to Home. Impression: Urinary tract infection, site sg not specified; Altered mental status, unspecified. Condition is Stable. Forms are Medication Reconciliation Form, Thank You Letter, Antibiotic Education, Prescription Opioid Use. Follow up: Ino Trujillo; When: 2 - 3 days; Reason: If symptoms return, Further diagnostic work-up, Recheck today's complaints, Continuance of care, Re-evaluation by your physician. Problem is new. Symptoms have improved. kdr
[2020-07-15 19:44] VITALS: TEMP 97.5
[2020-07-15 19:49] VITALS: BP 128/96; O2SAT 98
== END 2020-07-15 19:40 | disposition home or self-care (01) ==
LOC: ER 15:25
DX: N39.0 Urinary tract infection, site not specified (principal); I10 Essential (primary) hypertension; E78.5 Hyperlipidemia, unspecified; E11.9 Type 2 diabetes mellitus without complications; J44.9 Chronic obstructive pulmonary disease, unspecified; Z79.82 Long term (current) use of aspirin; Z79.4 Long term (current) use of insulin; Z88.1 Allergy status to other antibiotic agents; Z88.2 Allergy status to sulfonamides; Z87.891 Personal history of nicotine dependence
CPT/HCPCS: 36415; 51702; 80048; 81003; 81015; 85025; 87077; 87086; 87088; 87186; 96372; 99283

== ENCOUNTER 2021-11-10 17:51 | Emergency (ER) | payer OTHER ==
[2021-11-10 21:02] LABS: Urine Blood Negative (Negative); Urine Glucose Negative (Negative); Urine Protein Negative (Negative); Urine pH 5.5 (5.0-7.0)
--- NOTE | 2021-11-10 21:12 | ER ---
Nurse's Notes [facility] Name: Guerline Castellanos Age: 66 yrs Sex: Female : 1955 Arrival Date: 11/10/2021 Time: 17:58 Bed 14 Private MD: Diagnosis: UTI/ Urinary tract infection, site not specified;Pressure ulcer of buttock Presentation: 11/10 19:15 Chief complaint: Patient states: "I have three boils on my butt." Pt first noticed them iw yesterday. Coronavirus screen: At this time, the client does not indicate any symptoms associated with coronavirus-19. Ebola Screen: No symptoms or risks identified at this time. Initial Sepsis Screen: Does the patient meet any 2 criteria? No. Patient's initial sepsis screen is negative. Does the patient have a suspected source of infection? No. Patient's initial sepsis screen is negative. Risk Assessment: Do you want to hurt yourself or someone else? Patient reports no desire to harm self or others. Onset of symptoms was November 10, 2021. 19:15 Method Of Arrival: Wheelchair iw 19:15 Acuity: ABIODUN 3 iw Triage Assessment: 19:16 General: Appears in no apparent distress. comfortable, Behavior is calm, cooperative, iw appropriate for age. Pain: Denies pain. EENT: No signs and/or symptoms were reported regarding the EENT system. Neuro: Level of Consciousness is awake, alert, obeys commands, Oriented to person, place, time, situation. Cardiovascular: Capillary refill < 3 seconds Patient's skin is warm and dry. Respiratory: Airway is patent Respiratory effort is even, unlabored. Derm: Abscess located on buttocks. Historical: - Allergies: 19:16 Bactrim; iw 19:16 Sulfa (Sulfonamide Antibiotics); iw - PMHx: 19:16 COPD; Hyperlipidemia; Hypertension; Diabetes - IDDM; iw - Immunization history:: Adult Immunizations up to date, Client reports receiving the 2nd dose of the Covid vaccine. - Social history:: Smoking status: Patient denies any tobacco usage or history of. Patient/guardian denies using alcohol. Screenin:58 Abuse screen: Denies threats or abuse. Denies injuries from another. Nutritional sm5 screening: No deficits noted. Tuberculosis screening: No symptoms or risk factors identified. Fall Risk Ambulatory Aid- Crutches/Cane/Walker (15 pts). Total Cerrato Fall Scale indicates No Risk (0-24 pts). Assessment: 21:00 General: Appears uncomfortable, Behavior is cooperative. Pain: Complains of pain in sm5 buttocks. Neuro: No deficits noted. Level of Consciousness is awake, alert, obeys commands, Oriented to person, place, time, situation. Cardiovascular: No deficits noted. Capillary refill < 3 seconds Patient's skin is warm and dry. Derm: Skin skin breakdown. 21:42 Reassessment: Patient appears in no apparent distress at this time. Patient is alert, ld1 oriented x 3, equal unlabored respirations, skin warm/dry/pink. Patient assisted getting dressed, reports readiness for discharge; Aware of monitoring after administration of IM injection. Vital Signs: 19:15 BP 123 / 82; Pulse 79; Resp 18; Temp 98.3(TE); Pulse Ox 100% on R/A; Weight 136.08 kg; iw Height 5 ft. 4 in. (162.56 cm); Pain 0/10; 21:58 BP 129 / 71; Pulse 77; Resp 19; Pulse Ox 97% on R/A; sm5 19:15 Body Mass Index 51.50 (136.08 kg, 162.56 cm) iw ED Course: 17:58 Patient arrived in ED. mr 18:14 Heath Shi PA is PHCP. cp 18:14 Gutierrez Sesay DO is Attending Physician. cp 19:16 Triage completed. iw 19:16 Arm band placed on right wrist. iw 19:42 Carmen Arora, RN is Primary Nurse. ph 19:44 Emilia Mendez, DESMOND is Primary Nurse. sm5 21:00 Urine Microscopic Only Sent. sm5 21:02 Straight cath inserted, using sterile technique, Specimen obtained. Returned gene zm urine. Patient tolerated well. 21:58 Patient did not have IV access during this emergency room visit. Wound care: to skin sm5 breakdown located on buttocks was dressed with Neosporin, ABD pads, Patient tolerated well. 22:00 Patient has correct armband on for positive identification. Placed in gown. Bed in low sm5 position. Call light in reach. Side rails up X2. 22:00 No provider procedures requiring assistance completed. sm5 Administered Medications: 21:30 Drug: Rocephin (cefTRIAXone) 1 grams Route: IM; Site: right gluteus; ld1 22:00 Follow up: Response: No adverse reaction 5 Medication: 22:00 VIS not applicable for this client. 5 Outcome: 21:10 Discharge ordered by . mckenzie 22:00 Discharged to home via wheelchair. sm5 22:00 Condition: stable 22:00 Discharge instructions given to patient, Instructed on discharge instructions, follow up and referral plans. medication usage, wound care, Demonstrated understanding of instructions, follow-up care, medications, wound care. 22:00 Patient left the ED. 5 Signatures: Tiki Zuniga mr Tiara Villa, RN RN iw Carmen Arora RN RN ph Heath Shi PA PA Yamilet Munguia RN RN ld1 Emilia Mendez RN RN sm5 Sarah Downs Corrections: (The following items were deleted from the chart) 19:18 19:15 Pulse 79bpm; Resp 18bpm; Pulse Ox 100% RA; Temp 98.3F Temporal; 136.08 kg; Height iw 5 ft. 4 in.; BMI: 51.4; Pain 0/10; iw
--- NOTE | 2021-11-10 21:12 | EDPHYS ---
Physician Documentation [facility] Name: Guerline Castellanos Age: 66 yrs Sex: Female : 1955 Arrival Date: 11/10/2021 Time: 17:58 Bed 14 Private MD: ED Physician Gutierrez Sesay HPI: 11/10 20:15 This 66 yrs old Female presents to ER via Wheelchair with complaints of Skin Sore(s). cp 20:15 skin sores to buttocks. cp 20:15 Description: painful. cp 20:15 Onset: The symptoms/episode began/occurred yesterday. cp 20:15 Possible cause(s): unknown. Associated signs and symptoms: Pertinent negatives: cp discharge, drainage, fever. Severity of symptoms: in the emergency department the symptoms are unchanged, despite home interventions. Historical: - Allergies: 19:16 Bactrim; iw 19:16 Sulfa (Sulfonamide Antibiotics); iw - PMHx: 19:16 COPD; Hyperlipidemia; Hypertension; Diabetes - IDDM; iw - Immunization history:: Adult Immunizations up to date, Client reports receiving the 2nd dose of the Covid vaccine. - Social history:: Smoking status: Patient denies any tobacco usage or history of. Patient/guardian denies using alcohol. ROS: 20:20 Skin: Positive for of the buttocks, skin sores. cp 20:20 Constitutional: Negative for body aches, chills, fever, poor PO intake. cp 20:20 Cardiovascular: Negative for chest pain, palpitations. 20:20 Respiratory: Negative for cough, shortness of breath, wheezing. 20:20 Abdomen/GI: Negative for abdominal pain, nausea, vomiting, and diarrhea. 20:20 All other systems are negative. Exam: 20:25 Constitutional: The patient appears in no acute distress, alert, awake, non-toxic, well cp developed, well nourished, obese. 20:25 Cardiovascular: Rate: normal. cp 20:25 Respiratory: the patient does not display signs of respiratory distress, Respirations: normal, no use of accessory muscles, no retractions, labored breathing, is not present. 20:25 Abdomen/GI: Inspection: abdomen appears normal, Palpation: abdomen is soft and non-tender, in all quadrants. 20:25 Back: CVA tenderness, is absent. 20:25 Skin: multiple areas of superficial skin erosions noted to buttocks and posterior right upper leg, with minimal erythema and no drainage noted from areas. Vital Signs: 19:15 BP 123 / 82; Pulse 79; Resp 18; Temp 98.3(TE); Pulse Ox 100% on R/A; Weight 136.08 kg; iw Height 5 ft. 4 in. (162.56 cm); Pain 0/10; 21:58 BP 129 / 71; Pulse 77; Resp 19; Pulse Ox 97% on R/A; sm5 19:15 Body Mass Index 51.50 (136.08 kg, 162.56 cm) iw MDM: 19:42 Patient medically screened. cp 21:00 Differential diagnosis: abscess, cellulitis. cp 21:10 Data reviewed: vital signs, nurses notes. cp 21:10 Counseling: I had a detailed discussion with the patient and/or guardian regarding: the cp historical points, exam findings, and any diagnostic results supporting the discharge/admit diagnosis, the need for outpatient follow up, a family practitioner, to return to the emergency department if symptoms worsen or persist or if there are any questions or concerns that arise at home. Response to treatment: the patient's symptoms have mildly improved after treatment, and as a result, I will discharge patient. 11/10 20:25 Order name: Urine Microscopic Only 11/10 21:02 Order name: Urine Dipstick-Ancillary; Complete Time: 21:07 [facility] 11/10 21:08 Interpretation: Normal except: U NIT Positive; UESTR Trace. 11/10 20:25 Order name: Cath; Complete Time: 21:00 11/10 20:25 Order name: Urine Dipstick-Ancillary (obtain specimen); Complete Time: 21:00 cp 11/10 21:38 Order name: Urine Culture EDNE 11/10 20:50 Order name: Dressing - Wound; Complete Time: 21:00 cp Administered Medications: 21:30 Drug: Rocephin (cefTRIAXone) 1 grams Route: IM; Site: right gluteus; ld1 22:00 Follow up: Response: No adverse reaction sm5 Disposition: 22:20 Co-signature as Attending Physician, Gutierrez MENG was immediately available on-site ms3 in the Emergency Department for consultation in the care of the patient.. Disposition Summary: 11/10/21 21:10 Discharge Ordered Location: Home cp Problem: new cp Symptoms: have improved cp Condition: Stable cp Diagnosis - UTI/ Urinary tract infection, site not specified cp - Pressure ulcer of buttock cp Followup: cp - With: Private Physician - When: 1 - 2 days - Reason: Wound Recheck Discharge Instructions: - Discharge Summary Sheet cp - Preventing Pressure Injuries cp - Pressure Injury cp - Urinary Tract Infection, Adult cp Forms: - Medication Reconciliation Form cp - Thank You Letter cp - Antibiotic Education cp - Prescription Opioid Use cp Prescriptions: - Augmentin 875-125 mg Oral Tablet - take 1 tablet by ORAL route every 12 hours for 7 days; 14 tablet; Refills: 0, cp Product Selection Permitted - mupirocin 2 % Topical ointment - apply 1 application by TOPICAL route 3 times per day for 8-10 days; 45 gram; cp Refills: 0, Product Selection Permitted Signatures: Dispatcher [employer] Tiara Wagner RN RN iw Heath Shi PA PA cp Gutierrez Sesay DO DO ms3 Yamilet De La Fuente RN RN ld1 Emilia Mendez RN sm5 Corrections: (The following items were deleted from the chart) 21:15 21:10 Other specified disorders of the skin and subcutaneous tissue cp cp
[2021-11-10] MEDS ORDERED: CEFTRIAXONE 1000 MG/VIAL ONE (21:33)
[2021-11-10] MEDS ORDERED: WATER FOR INJ,STERILE 10 ML ONE (21:33)
[2021-11-10 21:36] LABS: Urine Bacteria >50 /HPF (<20); Urine RBC NONE SEEN /HPF (NONE SEEN)
[2021-11-11 01:52] VITALS: TEMP 98.3
[2021-11-11 01:53] VITALS: BP 129/71; O2SAT 97
== END 2021-11-10 22:00 | disposition home or self-care (01) ==
LOC: ER 17:51
DX: L89.319 Pressure ulcer of right buttock, unspecified stage (principal); N39.0 Urinary tract infection, site not specified; E11.9 Type 2 diabetes mellitus without complications; I10 Essential (primary) hypertension; J44.9 Chronic obstructive pulmonary disease, unspecified; Z88.1 Allergy status to other antibiotic agents; Z88.2 Allergy status to sulfonamides
CPT/HCPCS: 51702; 81003; 81015; 87077; 87086; 87088; 87186; 96372; 99283

== ENCOUNTER 2021-11-22 11:18 | Inpatient (IN) | payer OTHER ==
--- OUTSIDE RECORDS SUMMARY | 2021-11-22 11:23 | XMS REPORT | Continuity of Care Document ---
:1955 Author Organization [facility] t Address [address] [place] [address] Care Team Providers Name Role Phone PCP, DOES NOT HAVE A Primary Care Physician Unavailable BOZENA GUNN Attending Clinician Unavailable Lab, Fam Pob I Attending Clinician Unavailable Mario COYNE Attending Clinician MARIO Attending Clinician Unavailable Doctor Unassigned, Name Attending Clinician Unavailable Gibson FIERRO Attending Clinician Unavailable Mary Mckenzie Attending Clinician Zane MACKEY Attending Clinician Clayton MACKEY Attending Clinician MARY REYES Attending Clinician Unavailable JORGITO Attending Clinician Unavailable Clayton MACKEY Admitting Clinician Payers Payer Name Policy Type Policy Number Effective Date Expiration Date S ource Problems Condition Condition Condition Status Onset Resolution Last Treating Co mments Source Name Details Category Date Date Treatment Clinician Date CHF CHF Disease Active Univers (congestiv (congestiv 2-02 it y of e heart e heart 00:00: [place] failure), failure), [facility] NYHA class NYHA class Br anch I, acute I, acute on on chronic, chronic, combined combined Obesity Obesity Disease Active Univers (BMI (BMI 1-31 ity of 30-39.9) 30-39.9) 00:00: [place] 00 Medical Branch Acute Acute Disease Active Univers diastolic diastolic 1-31 ity of congestive congestive [place] heart heart Medical failure failure Branch Snores Snores Disease Active Univers 1-31 ity of 00:00: [place] [facility] Essential Essential Disease Active Uni vers hypertensi hypertensi 1-31 it y of on on 00:00: [place] 00 Medical Branch Type 2 Type 2 Disease Active Univers diabetes diabetes 1-31 ity of mellitus mellitus 00:00: [place] without without 00 Medical complicati complicati Br anch on, with on, with long-term long-term current current use of use of insulin insulin NERY NERY Disease Active Univers (obstructi (obstructi 08-01 it y of ve sleep ve sleep 00:00: [place] apnea) apnea) 00 Medical Branch Morbid Morbid Disease Active Univers obesity obesity 1 ity of 00:00: [place] 00 Medical Branch Leg edema Leg edema Disease Active Uni vers 1-30 ity of 00:00: [place] 00 Medical Branch History of History of Problem Resolve [facility] arthritis arthritis d Phys ici ans History of History of Problem Resolve [facility] asthma asthma d Physici ans History of History of Problem Resolve [facility] back pain back pain d Phys ici ans History of History of Problem Resolve [facility] depression depression d Ph ysici ans History of History of Problem Resolve [facility] 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 History of History of Problem Resolve [facility] hepatitis hepatitis d Phys ici ans History of History of Problem Resolve UT hypertensi hypertensi d Ph ysici on on ans History of History of Problem Resolve [facility] thyroid thyroid d Physici disease disease ans Arthritis Arthritis Problem Active UT of knee, of knee, Physic i left left ans Acute pain Acute pain Problem Active U T of both of both Physici shoulders shoulders ans Primary Primary Problem Active UT osteoarthr osteoarthr Ph ysici itis of itis of ans both both shoulders shoulders Hip pain, Hip pain, Problem Active [facility] bilateral bilateral Phys ici ans Arthritis Arthritis Problem Active [facility] of right of right Physic i hip hip ans Primary Primary Problem Active [facility] osteoarthr osteoarthr Ph ysici itis of itis of ans both knees both knees Primary Primary Problem Active UT osteoarthr osteoarthr Ph ysici itis of itis of ans left hip left hip 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 Physici ans Status Status Problem Active UT post total post total Ph ysici left knee left knee ans replacemen replacemen t t Contusion Contusion Problem Active [facility] of left of left Physici knee, knee, ans initial initial encounter encounter Allergies, Adverse Reactions, Alerts Allergy Allergy Status Severity Reaction(s) Onset Inactive Treating Comm ents Source Name Type Date Date Clinician SULFA Drug Active Hives Univers (SULFONA Class 1-30 ity of MIDE 00:00: [place] ANTIBIOT 00 Medical ICS) Branch Sulfa Propensi Active Hives Univers (Sulfona ty to 1-30 ity of mide adverse 00:00: [place] Antibiot reaction 00 Medica l ics) s Branch Bactrim drug Active [facility] allergy Physici ans sulfa drug Active [facility] allergy Physici ans Family History Family Member Diagnosis Comments Start Date Stop Date Source Sister Family history of diabetes [facility] Physicians insipidus Social History Social Habit Start Date Stop Date Quantity Comments Source Exposure to Not sure [place] of SARS-CoV-2 [place] Medical (event) Branch History SDOH 2020-08-01 2020-08-01 2 University o f Financial 00:00:00 00:00:00 [place] [facility] History SDOH Food 2020-08-01 2020-08-01 3 Univers ity of Worry 00:00:00 00:00:00 [place] [facility] History SDOH Food 2020-08-01 2020-08-01 3 Univers ity of Scarcity 00:00:00 00:00:00 [place] [facility] History SDOH 2020-08-01 2020-08-01 1 University o f Transport Med 00:00:00 00:00:00 [place] Medic al Branch History SDOH 2020-08-01 2020-08-01 1 University o f Transport Non-Med 00:00:00 00:00:00 [facility] [place] Tobacco use and 2020-08-01 2020-08-01 Never used Universit y of exposure 00:00:00 00:00:00 [facility] Branch Alcohol intake 2020-08-01 2020-08-01 Ex-drinker University 00:00:00 00:00:00 (finding) [facility] Sex Ass[birth year] Universit y of 00:00:00 00:00:00 [facility] Smoking Status Start Date Stop Date Source Former smoker 2020-08-01 00:00:00 2020-08-01 00:00:00 Universi ty of [facility] Medications Ordered Filled Start Stop Current Ordering Indication Dosage Frequency Signature Comments Components Source Medication Medication Date Date Medication? Clinician (SIG) Name Name furosemide Yes 40mg 40 mg, Unive rs (LASIX) 2-06 Slow IV ity of injection 02:00: Push, [place] 40 mg 00 Q12H, Medical First dose Branch on Sun08/06/20 at 2000, Until Discontinu ed, Routine furosemide Yes [id number] 40mg Take 1 U nivers 40 mg 2-06 tablet by ity of tablet 00:00: mouth [place] 00 daily. Medical Branch furosemide Yes [id number] 40mg Take 1 U nivers 40 mg 2-06 tablet by ity of tablet 00:00: mouth [place] 00 daily. Medical Branch furosemide Yes [id number] 40mg Take 1 U nivers 40 mg 2-06 tablet by ity of tablet 00:00: mouth [place] 00 daily. Medical Branch furosemide Yes [id number] 40mg Take 1 U nivers 40 mg 2-06 tablet by ity of tablet 00:00: mouth [place] 00 daily. Medical Branch furosemide Yes [id number] 40mg Take 1 U nivers 40 mg 2-06 tablet by ity of tablet 00:00: mouth [place] 00 daily. Medical Branch furosemide Yes [id number] 40mg Take 1 U nivers 40 mg 2-06 tablet by ity of tablet 00:00: mouth [place] 00 daily. Medical Branch alendronate Yes 70mg Take 70 mg Univers 70 mg 2-05 by mouth ity of tablet 23:09: weekly. [place] 30 Every Medical Sunday Branch clopidogreL 0 Yes 75mg Take 75 mg Univers 75 mg 2-05 by mouth ity of tablet 23:09: daily. [place] 30 Medical Branch insulin Yes 35U inject 35 Unive rs detemir 2-05 Units ity of U-100 100 23:09: under the [place] unit/mL 30 skin 2 Medical injection (two) Branch times daily. linaCLOtide Yes 145ug Take 145 U nivers (LINZESS) 2-05 mcg by ity of 145 mcg 23:09: mouth [place] capsule 30 daily. Medical Branch budesonide- Yes 2{puff} Inhale 2 Univers formoteroL 2-05 Puffs ity of (SYMBICORT) 23:09: daily. [place] 80-4.5 30 Medical mcg/actuati Branch on inhaler Naproxen-Es Yes 1{tbl} Take 1 Un daniel omeprazole 2-05 tablet by ity of Mag 23:09: mouth 2 [place] (VIMOVO) 30 (two) Medical 500-20 mg times Branch per tablet daily. diphenhydrA 0 Yes 25mg Take 25 mg Univers MINE 2-05 by mouth ity of (ALLERGY 23:09: daily. [place] RELIEF,DIPH 30 Medical ENHYDRAMIN, Branch ) 25 mg tablet Cholecalcif Yes 2{tbl} Take 2 Un daniel sandra, 2-05 tablets by ity of Vitamin D3, 23:09: mouth 2 [place] (VITAMIN 30 (two) Medical D3) 125 mcg times Branch (5,000 daily. unit) tablet 5-Hydroxytr Yes 1{capsu Take 1 U nivers yptophan 2-05 le} capsule by ity o f (5-HTP) 100 23:09: mouth [place] mg Cap 30 daily. Medical Branch aspirin 0 Yes 81mg Take 81 mg Univ ers (CHRISTA 2-05 by mouth ity of CHEWABLE 23:09: daily with [place] ASPIRIN) 81 30 breakfast. Me dical mg chewable Branch tablet thyroid (GERIATRICS PHYSICIAN 0 Yes 60mg Take 60 mg Univers THYROID) 60 2-05 by mouth ity of mg tablet 23:09: every [place] 30 morning. Medical Branch pravastatin 0 Yes 20mg Take 20 mg Univers 20 mg 2-05 by mouth ity of tablet 23:09: at [place] 30 bedtime. Medical Branch lisinopriL 0 Yes 20mg Take 20 mg U nivers 20 mg 2-05 by mouth 2 ity of tablet 23:09: (two) [place] 30 times Medical daily. Branch alendronate 0 Yes 70mg Take 70 mg Univers 70 mg 2-05 by mouth ity of tablet 23:09: weekly. [place] 30 Every Medical Sunday Branch clopidogreL 2020-0 Yes 75mg Take 75 mg Univers 75 mg 2-05 by mouth ity of tablet 23:09: daily. 30 Medical Branch insulin 2020-0 Yes 35U inject 35 Unive rs detemir 2-05 Units ity of U-100 100 23:09: under the [place] unit/mL 30 skin 2 Medical injection (two) Branch times daily. linaCLOtide Yes 145ug Take 145 U nivers (LINZESS) 2-05 mcg by ity of 145 mcg 23:09: mouth [place] capsule 30 daily. Medical Branch budesonide- Yes 2{puff} Inhale 2 Univers formoteroL 2-05 Puffs ity of (SYMBICORT) 23:09: daily. [place] 80-4.5 30 Medical mcg/actuati Branch on inhaler Naproxen-Es Yes 1{tbl} Take 1 Un daniel omeprazole 2-05 tablet by ity of Mag 23:09: mouth 2 [place] (VIMOVO) 30 (two) Medical 500-20 mg times Branch per tablet daily. diphenhydrA Yes 25mg Take 25 mg Univers MINE 2-05 by mouth ity of (ALLERGY 23:09: daily. [place] RELIEF,DIPH 30 Medical ENHYDRAMIN, Branch ) 25 mg tablet Cholecalcif Yes 2{tbl} Take 2 Un daniel sandra, 2-05 tablets by ity of Vitamin D3, 23:09: mouth 2 [place] (VITAMIN 30 (two) Medical D3) 125 mcg times Branch (5,000 daily. unit) tablet 5-Hydroxytr Yes 1{capsu Take 1 U nivers yptophan 2-05 le} capsule by ity o f (5-HTP) 100 23:09: mouth [place] mg Cap 30 daily. Medical Branch aspirin Yes 81mg Take 81 mg Univ ers (CHRISTA 2-05 by mouth ity of CHEWABLE 23:09: daily with [place] ASPIRIN) 81 30 breakfast. Me dical mg chewable Branch tablet thyroid (GERIATRICS PHYSICIAN Yes 60mg Take 60 mg Univers THYROID) 60 2-05 by mouth ity of mg tablet 23:09: every [place] 30 morning. Medical Branch pravastatin Yes 20mg Take 20 mg Univers 20 mg 2-05 by mouth ity of tablet 23:09: at [place] 30 bedtime. Medical Branch lisinopriL Yes 20mg Take 20 mg U nivers 20 mg 2-05 by mouth 2 ity of tablet 23:09: (two) [place] 30 times Medical daily. Branch alendronate Yes 70mg Take 70 mg Univers 70 mg 2-05 by mouth ity of tablet 23:09: weekly. [place] 30 Every Medical Sunday Branch clopidogreL Yes 75mg Take 75 mg Univers 75 mg 2-05 by mouth ity of tablet 23:09: daily. [place] 30 Medical Branch insulin Yes 35U inject 35 Unive rs detemir 2-05 Units ity of U-100 100 23:09: under the [place] unit/mL 30 skin 2 Medical injection (two) Branch times daily. linaCLOtide Yes 145ug Take 145 U nivers (LINZESS) 2-05 mcg by ity of 145 mcg 23:09: mouth [place] capsule 30 daily. Medical Branch budesonide- Yes 2{puff} Inhale 2 Univers formoteroL 2-05 Puffs ity of (SYMBICORT) 23:09: daily. [place] 80-4.5 30 Medical mcg/actuati Branch on inhaler Naproxen-Es Yes 1{tbl} Take 1 Un daniel omeprazole 2-05 tablet by ity of Mag 23:09: mouth 2 [place] (VIMOVO) 30 (two) Medical 500-20 mg times Branch per tablet daily. diphenhydrA Yes 25mg Take 25 mg Univers MINE 2-05 by mouth ity of (ALLERGY 23:09: daily. [place] RELIEF,DIPH 30 Medical ENHYDRAMIN, Branch ) 25 mg tablet Cholecalcif Yes 2{tbl} Take 2 Un daniel sandra, 2-05 tablets by ity of Vitamin D3, 23:09: mouth 2 [place] (VITAMIN 30 (two) Medical D3) 125 mcg times Branch (5,000 daily. unit) tablet 5-Hydroxytr Yes 1{capsu Take 1 U nivers yptophan 2-05 le} capsule by ity o f (5-HTP) 100 23:09: mouth [place] mg Cap 30 daily. Medical Branch aspirin Yes 81mg Take 81 mg Univ ers (CHRISTA 2-05 by mouth ity of CHEWABLE 23:09: daily with [place] ASPIRIN) 81 30 breakfast. Me dical mg chewable Branch tablet thyroid (GERIATRICS PHYSICIAN Yes 60mg Take 60 mg Univers THYROID) 60 2-05 by mouth ity of mg tablet 23:09: every [place] 30 morning. Medical Branch pravastatin Yes 20mg Take 20 mg Univers 20 mg 2-05 by mouth ity of tablet 23:09: at [place] 30 bedtime. Medical Branch lisinopriL Yes 20mg Take 20 mg U nivers 20 mg 2-05 by mouth 2 ity of tablet 23:09: (two) [place] 30 times Medical daily. Branch alendronate Yes 70mg Take 70 mg Univers 70 mg 2-05 by mouth ity of tablet 23:09: weekly. [place] [address] Every Medical Sunday Branch clopidogreL Yes 75mg Take 75 mg Univers 75 mg 2-05 by mouth ity of tablet 23:09: daily. [place] [address] Medical Branch insulin Yes 35U inject 35 Unive rs detemir 2-05 Units ity of U-100 100 23:09: under the [place] unit/mL 30 skin 2 Medical injection (two) Branch times daily. linaCLOtide Yes 145ug Take 145 U nivers (LINZESS) 2-05 mcg by ity of 145 mcg 23:09: mouth [place] capsule 30 daily. Medical Branch budesonide- Yes 2{puff} Inhale 2 Univers formoteroL 2-05 Puffs ity of (SYMBICORT) 23:09: daily. [place] 80-4.5 30 Medical mcg/actuati Branch on inhaler Naproxen-Es Yes 1{tbl} Take 1 Un daniel omeprazole 2-05 tablet by ity of Mag 23:09: mouth 2 [place] (VIMOVO) 30 (two) Medical 500-20 mg times Branch per tablet daily. diphenhydrA Yes 25mg Take 25 mg Univers MINE 2-05 by mouth ity of (ALLERGY 23:09: daily. [place] RELIEF,DIPH 30 Medical ENHYDRAMIN, Branch ) 25 mg tablet Cholecalcif Yes 2{tbl} Take 2 Un daniel sandra, 2-05 tablets by ity of Vitamin D3, 23:09: mouth 2 [place] (VITAMIN 30 (two) Medical D3) 125 mcg times Branch (5,000 daily. unit) tablet 5-Hydroxytr Yes 1{capsu Take 1 U nivers yptophan 2-05 le} capsule by ity o f (5-HTP) 100 23:09: mouth [place] mg Cap 30 daily. Medical Branch aspirin Yes 81mg Take 81 mg Univ ers (CHRISTA 2-05 by mouth ity of CHEWABLE 23:09: daily with [place] ASPIRIN) 81 30 breakfast. Me dical mg chewable Branch tablet thyroid (GERIATRICS PHYSICIAN Yes 60mg Take 60 mg Univers THYROID) 60 2-05 by mouth ity of mg tablet 23:09: every [place] 30 morning. Medical Branch pravastatin Yes 20mg Take 20 mg Univers 20 mg 2-05 by mouth ity of tablet 23:09: at [place] 30 bedtime. Medical Branch lisinopriL Yes 20mg Take 20 mg U nivers 20 mg 2-05 by mouth 2 ity of tablet 23:09: (two) [place] 30 times Medical daily. Branch alendronate Yes 70mg Take 70 mg Univers 70 mg 2-05 by mouth ity of tablet 23:09: weekly. [place] 30 Every Medical Sunday Branch clopidogreL Yes 75mg Take 75 mg Univers 75 mg 2-05 by mouth ity of tablet 23:09: daily. [place] 30 Medical Branch insulin Yes 35U inject 35 Unive rs detemir 2-05 Units ity of U-100 100 23:09: under the [place] unit/mL 30 skin 2 Medical injection (two) Branch times daily. linaCLOtide Yes 145ug Take 145 U nivers (LINZESS) 2-05 mcg by ity of 145 mcg 23:09: mouth [place] capsule 30 daily. Medical Branch budesonide- Yes 2{puff} Inhale 2 Univers formoteroL 2-05 Puffs ity of (SYMBICORT) 23:09: daily. [place] 80-4.5 30 Medical mcg/actuati Branch on inhaler Naproxen-Es Yes 1{tbl} Take 1 Un daniel omeprazole 2-05 tablet by ity of Mag 23:09: mouth 2 [place] (VIMOVO) 30 (two) Medical 500-20 mg times Branch per tablet daily. diphenhydrA Yes 25mg Take 25 mg Univers MINE 2-05 by mouth ity of (ALLERGY 23:09: daily. [place] RELIEF,DIPH 30 Medical ENHYDRAMIN, [place] ) 25 mg tablet Cholecalcif Yes 2{tbl} Take 2 Un daniel sandra, 2-05 tablets by ity of Vitamin D3, 23:09: mouth 2 [place] (VITAMIN 30 (two) Medical D3) 125 mcg times Branch (5,000 daily. unit) tablet 5-Hydroxytr Yes 1{capsu Take 1 U nivers yptophan 2-05 le} capsule by ity o f (5-HTP) 100 23:09: mouth [place] mg Cap 30 daily. Medical Branch aspirin Yes 81mg Take 81 mg Univ ers (CHRISTA 2-05 by mouth ity of CHEWABLE 23:09: daily with [place] ASPIRIN) 81 30 breakfast. Me dical mg chewable Branch tablet thyroid (GERIATRICS PHYSICIAN Yes 60mg Take 60 mg Univers THYROID) 60 2-05 by mouth ity of mg tablet 23:09: every [place] 30 morning. Medical Branch pravastatin Yes 20mg Take 20 mg Univers 20 mg 2-05 by mouth ity of tablet 23:09: at [place] 30 bedtime. Medical Branch lisinopriL Yes 20mg Take 20 mg U nivers 20 mg 2-05 by mouth 2 ity of tablet 23:09: (two) [place] 30 times Medical daily. Branch alendronate Yes 70mg Take 70 mg Univers 70 mg 2-05 by mouth ity of tablet 23:09: weekly. [place] 30 Every Medical Sunday Branch clopidogreL Yes 75mg Take 75 mg Univers 75 mg 2-05 by mouth ity of tablet 23:09: daily. [place] 30 Medical Branch insulin Yes 35U inject 35 Unive rs detemir 2-05 Units ity of U-100 100 23:09: under the [place] unit/mL 30 skin 2 Medical injection (two) Branch times daily. linaCLOtide Yes 145ug Take 145 U nivers (LINZESS) 2-05 mcg by ity of 145 mcg 23:09: mouth [place] capsule 30 daily. Medical Branch budesonide- Yes 2{puff} Inhale 2 Univers formoteroL 2-05 Puffs ity of (SYMBICORT) 23:09: daily. [place] 80-4.5 30 Medical mcg/actuati Branch on inhaler Naproxen-Es Yes 1{tbl} Take 1 Un daniel omeprazole 2-05 tablet by ity of Mag 23:09: mouth 2 [place] (VIMOVO) 30 (two) Medical 500-20 mg times Branch per tablet daily. diphenhydrA 0 Yes 25mg Take 25 mg Univers MINE 2-05 by mouth ity of (ALLERGY 23:09: daily. [place] RELIEF,DIPH 30 Medical ENHYDRAMIN, Branch ) 25 mg tablet Cholecalcif Yes 2{tbl} Take 2 Un daniel sandra, 2-05 tablets by ity of Vitamin D3, 23:09: mouth 2 [place] (VITAMIN 30 (two) Medical D3) 125 mcg times Branch (5,000 daily. unit) tablet 5-Hydroxytr Yes 1{capsu Take 1 U nivers yptophan 2-05 le} capsule by ity o f (5-HTP) 100 23:09: mouth [place] mg Cap 30 daily. Medical Branch aspirin 0 Yes 81mg Take 81 mg Univ ers (CHRISTA 2-05 by mouth ity of CHEWABLE 23:09: daily with [place] ASPIRIN) 81 30 breakfast. Me dical mg chewable Branch tablet thyroid (GERIATRICS PHYSICIAN 0 Yes 60mg Take 60 mg Univers THYROID) 60 2-05 by mouth ity of mg tablet 23:09: every [place] 30 morning. Medical Branch pravastatin Yes 20mg Take 20 mg Univers 20 mg 2-05 by mouth ity of tablet 23:09: at [place] 30 bedtime. Medical Branch lisinopriL 0 Yes 20mg Take 20 mg U nivers 20 mg 2-05 by mouth 2 ity of tablet 23:09: (two) [place] 30 times Medical daily. Branch atropine 2020-0 Yes .5mg 0.5 mg, IV Uni vers injection 2-05 Push, ity of 0.5 mg 11:20: Q5MIN PRN, [place] 18 Starting Medical 08/06/20 Branch at 0520, Until Discontinu ed, Routine, Symptomati c Bradycardi a, Please keep at bedside. Do not administer without house MD being notified. Polyethylen Yes [id number] 17g Take 1 Univers e Glycol 2-05 Packet by ity of 3350 17 00:00: mouth 2 [place] gram powder 00 (two) Medical times Branch daily. Polyethylen 2020-0 Yes [id number] 17g Take 1 Univers e Glycol 2-05 Packet by ity of 3350 17 00:00: mouth 2 [place] gram powder 00 (two) Medical times Branch daily. Polyethylen 2020-0 Yes [id number] 17g Take 1 Univers e Glycol 2-05 Packet by ity of 3350 17 00:00: mouth 2 [place] gram powder 00 (two) Medical times Branch daily. Polyethylen 2020-0 Yes [id number] 17g Take 1 Univers e Glycol 2-05 Packet by ity of 3350 17 00:00: mouth 2 [place] gram powder 00 (two) Medical times Branch daily. Polyethylen 2020- Yes [id number] 17g Take 1 Univers e Glycol 2-05 Packet by ity of 3350 17 00:00: mouth 2 [place] gram powder 00 (two) Medical times Branch daily. Polyethylen 2020- Yes [id number] 17g Take 1 Univers e Glycol 2-05 Packet by ity of 3350 17 00:00: mouth 2 [place] gram powder 00 (two) Medical times Branch daily. furosemide 2020- No 40mg 40 mg, Univ ers (LASIX) 205 Oral, ity of tablet 40 15:00: 19:27 DAILY, [place] mg 00 :48 First dose Medical (after Branch last modificati on) on Sun08/04/20 at 0900, Until Discontinu ed, Routine furosemide 2020- No 40mg 40 mg, Univ ers (LASIX) 2- Oral, BID, ity o f tablet 40 16:45: 19:22 First dose [place] mg 00 :57 on Sun Medical 08/03/20 at Branch 1045, Until Discontinu ed, Routine acetaminoph Yes 650mg 650 mg, Un daniel en 08-03 Oral, ity of (TYLENOL) 02:27: TIDPRN, [place] tablet 650 58 Starting Medic al mg 08/02/20 Branch at 2027, Until Discontinu ed, Routine, Pain (scale 1-3) traMADoL Yes 50mg 50 mg, Univers (ULTRAM) 08-02 Oral, ity of tablet 50 05:20: BIDPRN, [place] mg 48 Starting Medical [facility] 08/01/20 at 2320, Until Discontinu ed, Routine, Pain (scale 4-6) pravastatin Yes 20mg 20 mg, [facility] ers (PRAVACHOL) 08-02 Oral, QHS, it y of tablet 20 03:00: First dose [place] mg 00 on [facility] 08/01/20 at Branch 2100, Until Discontinu ed, Routine enoxaparin No 40mg 40 mg, [facility] ers (LOVENOX) 08-01 0203 Subcutaneo ity of injection 23:00: 16:29 us, DAILY, [place] 40 mg 00 :54 First dose Medical on [facility] 08/01/20 at 1700, Until Discontinu ed, Routine Polyethylen Yes 17g 17 g, [facility] Glycol 08-01 Oral, ity of 3350 15:00: DAILY, [place] (MIRALAX) 00 First dose Medi pooja powder 17 g on [facility] 08/01/20 at 0900, Until Discontinu ed, Routine clopidogreL Yes 75mg 75 mg, [facility] ers (PLAVIX) 08-01 Oral, ity of tablet 75 15:00: DAILY, [place] mg 00 First dose Medical on [facility] 08/01/20 at 0900, Until Discontinu ed, Routine budesonide- Yes 2{puff} 2 Puff, Univers formoteroL 08-01 Inhalation ity of (SYMBICORT) 15:00: , DAILY, [place] 80-4.5 00 First dose Medical mcg/actuati on [facility] on inhaler 08/01/20 at 2 Puff 0900, Until Discontinu ed, Routine insulin Yes 35U 35 Units, [facility] detemir 08-01 Subcutaneo ity of U-100 14:00: us, BID, [place] (LEVEMIR 00 First dose Medic al U-100 on [facility] INSULIN) 08/01/20 at injection 0800, 35 Units Until Discontinu ed, Routine Sliding Yes Subcutaneo Univ ers Scale 08-01 us, TID ity of Insulin - 14:00: MEALS+HS, [place] Lispro 00 First dose Medical (HumaLOG) + on [place] Branch [facility] 08/01/20 at Testing 0800, Until Discontinu ed, Routine furosemide 2020- No 40mg 40 mg, IV U nivers (LASIX) 08-01 0202 Push, BID, ity o f injection 14:00: 16:42 First dose [place] 40 mg 00 :14 (after Medical last Branch reorder) on [place] 08/01/20 at 0800, Until Discontinu ed, Routine thyroid Yes 60mg 60 mg, Univers (ARMOUR 08-01 Oral, ity of THYROID) 12:00: QAM-0600, [place] tablet 60 00 First dose Medi pooja mg on [place] Branch 08/01/20 at 0600, Until Discontinu ed, Routine sennosides Yes 8.6mg 8.6 mg, Uni vers (SENOKOT) 08-01 Oral, BID, ity of tablet 8.6 08:45: First dose [place] mg 00 on [facility] 08/01/20 at Branch 0245, Until Discontinu ed, Routine aspirin Yes 81mg 81 mg, Univers chewable 08-01 Oral, QAM ity of tablet 81 08:45: WITH [place] mg 00 BREAKFAST, Medical First dose Branch on [place] 08/01/20 at 0245, Until Discontinu ed, Routine docusate Yes 100mg 100 mg, Unive rs (COLACE) 08-01 Oral, BID, ity o f capsule 100 08:45: First dose [place] mg 00 on [facility] 08/01/20 at Branch 0245, Until Discontinu ed, Routine ALPRAZolam 2020- No .5mg Take 0.5 Un daniel (XANAX) 0.5 08-01 mg by ity of mg tablet 08:38: 00:00 mouth 4 [place] 26 :00 (four) Medical times Branch daily. ondansetron Yes 4mg 4 mg, Slow Univers (ZOFRAN 08-01 IV Push, ity of (PF)) 08:33: Q6HPRN, [place] injection 4 47 Starting Medi pooja mg [facility] 08/01/20 at 0233, Until Discontinu ed, Routine, Nausea and Vomiting (N/V) glucagon Yes 1mg 1 mg, Univers (GLUCAGEN 08-01 Intramuscu ity of DIAGNOSTIC 08:30: [place], PRN, [place] KIT) 22 Starting Medical injection 1 Sun Branch mg 08/01/20 at 0230, Until Discontinu ed, JENNIFER, Blood Glucose < or = 70 mg/dL and patient is unable to swallow or has mental changes. dextrose 50 Yes 25mL 25 mL, Univ ers % in water 08-01 Slow IV ity of (D50W) 08:30: Push, PRN, [place] injection 22 Starting Medica l 25 mL [facility] 08/01/20 at 0230, Until Discontinu ed, JENNIFER, Blood Glucose < or = 70 mg/dL and patient is unable to swallow or has mental status changes. furosemide No 40mg 40 mg, IV U nivers (LASIX) 07-3130 [place], ity of injection 23:15: 22:27 ONCE, 1 [place] 40 mg 00 :00 dose, Sat Medical 07/31/20 at Branch 1715, JENNIFER traMADol traMADol 2018-07 Yes LEO Q0.3333D TAKE 1 [place] HCl - 50 MG HCl - 50 MG 1-26 JORGITO TABLET 3 Physici Oral Tablet Oral Tablet 00:00: M.D. TIMES ans 00 DAILY NEEDED. tiZANidine tiZANidine 2018-07 Yes LEO Q0.3333D TAKE 1 UT HCl - 4 MG HCl - 4 MG 1-26 J[facility]O TABLET 3 [facility] Oral Tablet Oral Tablet 00:00: M.D. TIMES ans 00 DAILY. tiZANidine tiZANidine 2018-07 Yes LEO 1 Q0.3333D TAKE 1 UT HCl - 4 MG HCl - 4 MG 0-14 [facility] CAPSULE BY [facility] Oral Oral 00:00: M.D. MOUTH ans Capsule Capsule 00 THREE TIMES A DAY Xarelto 10 Xarelto 10 2018-07 Yes LEO 1 QD TAKE 1 UT MG Oral MG Oral 0-07 J[facility] TABLET Ph ysici Tablet Tablet 00:00: M.D. DAILY ans 00 Ondansetron Ondansetron 2018-07 Yes LEO 1 Q8H TAKE 1 UT HCl - 4 MG HCl - 4 MG 0-07 J[facility] TABLET [facility] Oral Tablet Oral Tablet 00:00: M.D. EVERY 8 ans 00 HOURS Cephalexin Cephalexin 2018-07 Yes LEO Q0.25D TAKE 1 UT 500 MG Oral 500 MG Oral 0-02 J[facility] CAPSULE 4 [facility] Capsule Capsule 00:00: M.D. TIMES ans 00 DAILY. Mupirocin 2 Mupirocin 2 2018-07 Yes LEO Q0.3333D APPLY UT % External % External 0-02 J[facility]GITO SPARINGLY [facility] Ointment Ointment 00:00: M.D. TO ans 00 AFFECTED AREA(S) 3 TIMES A DAY Acetaminoph Acetaminoph 2017-07 Yes LEO TAKE 1 UT en-Codeine en-Codeine 1-14 J[facility]O TABLET [facility] #4 300-60 #4 300-60 00:00: M.D. EVERY 6 TO ans MG Oral MG Oral 00 8 HOURS Tablet Tablet NEEDED FOR PAIN. Meloxicam Meloxicam Yes LEO 1 TAKE 1 UT 15 MG Oral 15 MG Oral 8-08 J[facility]O TABLET [facility] Tablet Tablet 00:00: M.D. DAILY ans 00 NEEDED. Cyclobenzap Cyclobenzap Yes LEO Q0.3333D TAKE 1 UT rine HCl - rine HCl - 4-16 J[facility]G[place]O TABLET BY [facility] 10 MG Oral 10 MG Oral 00:00: M.D. MOUTH ans Tablet Tablet 00 THREE TIMES A DAY NEEDED Acetaminoph Acetaminoph Ying LEO TAKE 1 UT en-Codeine en-Codeine 4-16 J[facility]O TABLET [facility] 300-60 MG 300-60 MG 00:00: M.D. EVERY 6 TO ans Oral Tablet Oral Tablet 00 8 HOURS NEEDED FOR PAIN. Pentazocine Pentazocine Yes LEO TAKE 1 UT -Naloxone -Naloxone 3-19 J[facility]O TABLET [facility] HCl - HCl - 00:00: M.D. EVERY 4 TO ans 50-0.5 MG 50-0.5 MG 00 6 HOURS Oral Tablet Oral Tablet NEEDED FOR PAIN. Diclofenac Diclofenac Ying MENDEZ QD APPLY TO UT Sodium 1 % Sodium 1 % 3-19 J[facility]GITO LOWER [facility] Transdermal Transdermal 00:00: M.DBarbara OROZCO ans Gel Gel 00 S, 4 GM OF GEL TO AFFECTED AREA 4 TIMES DAILY. DO NOT APPLY MORE THAN 16 GM DAILY TO ANY ONE AFFECTED JOINT. Alendronate Alendronate Yes U T Sodium 70 Sodium 70 Physi ci MG Oral MG Oral ans Tablet Tablet Plavix 75 Plavix 75 Yes UT MG Oral MG Oral [facility] Tablet Tablet ans Levo-T 125 Levo-T 125 Yes UT MCG Oral MCG Oral [facility] Tablet Tablet ans Xanax 0.5 Xanax 0.5 Yes UT MG Oral MG Oral [facility] Tablet Tablet ans Linzess 145 Linzess 145 Yes U T MCG Oral MCG Oral [facility] Capsule Capsule ans Symbicort Symbicort Yes UT 80-4.5 80-4.5 Physici MCG/ACT MCG/ACT ans Inhalation Inhalation Aerosol Aerosol Vimovo Vimovo Yes UT 500-20 MG 500-20 MG Physi ci Oral Tablet Oral Tablet a ns Delayed Delayed Release Release Levemir Levemir Yes UT SOLN SOLN [facility] ans Immunizations Ordered Filled Immunization Date Status Comments Sour e Immunization Name Name SARS-COV-2 COVID-19 2020-10-14 Completed Unive rsity of PFIZER VACCINE 00:00:00 [facility] SARS-COV-2 COVID-19 2020-10-14 Completed Unive rsity of PFIZER VACCINE 00:00:00 [facility] SARS-COV-2 COVID-19 2020-10-14 Completed Unive rsity of PFIZER VACCINE 00:00:00 [facility] SARS-COV-2 COVID-19 2020-10-14 Completed Unive rsity of PFIZER VACCINE 00:00:00 [facility] SARS-COV-2 COVID-19 2020-10-14 Completed Unive rsity of PFIZER VACCINE 00:00:00 [facility] SARS-COV-2 COVID-19 2020-09-23 Completed Unive rsity of PFIZER VACCINE 00:00:00 [facility] SARS-COV-2 COVID-19 2020-09-23 Completed Unive rsity of PFIZER VACCINE 00:00:00 [facility] SARS-COV-2 COVID-19 2020-09-23 Completed Unive rsity of PFIZER VACCINE 00:00:00 [facility] SARS-COV-2 COVID-19 2020-09-23 Completed Unive rsity of PFIZER VACCINE 00:00:00 [facility] SARS-COV-2 COVID-19 2020-09-23 Completed Unive rsity of PFIZER VACCINE 00:00:00 [facility] Vital Signs Vital Name Observation Time Observation Value Comments Source Systolic blood 2020-08-06 17:38:00 117 mm[Hg] Univer sity of pressure [facility] Diastolic blood 2020-08-06 17:38:00 70 mm[Hg] Unive rsity of pressure [facility] Heart rate 2020-08-06 17:38:00 88 /min [facility] Body temperature 2020-08-06 17:38:00 37.11 Marjorie [facility] Respiratory rate 2020-08-06 17:38:00 20 /min [facility] Oxygen saturation in 2020-08-06 17:38:00 94 /min [facility] Arterial blood by [facility] Pulse oximetry [place] Body weight 2020-08-06 10:45:00 115.214 kg [facility] BMI 2020-08-06 10:45:00 46.46 kg/m2 [facility] Body height 2020-08-02 05:38:00 157.5 cm [facility] Height 2018-02-06 14:07:00 64 [in_us] [facility] Weight 2018-02-06 14:07:00 269 [lb_av] [facility] Body Mass Index 2018-02-06 14:07:00 46.17 kg/m2 [facility] Calculated Height 2018-01-11 10:38:00 64 [in_us] [facility] Weight 2018-01-11 10:38:00 269 [lb_av] [facility] Body Mass Index 2018-01-11 10:38:00 46.17 kg/m2 [facility] Cal[facility] Height 2017-12-10 10:53:00 64 [in_us] [facility] Weight 2017-12-10 10:53:00 269 [lb_av] [facility] Body Mass Index 2017-12-10 10:53:00 46.17 kg/m2 [facility] Calculated Height 2017-10-15 16:02:00 64 [in_us] [facility] Weight 2017-10-15 16:02:00 269 [lb_av] [facility] Body Mass Index 2017-10-15 16:02:00 46.17 kg/m2 [facility] Calculated Height 2017-09-13 16:14:00 64 [in_us] [facility] Weight 2017-09-13 16:14:00 269 [lb_av] [facility] Body Mass Index 2017-09-13 16:14:00 46.17 kg/m2 [facility] Calculated Procedures Procedure Date / Time Performing Clinician Source Performed ASSIGNMENT OF BENEFITS 2021-02-13 22:28:58 Doctor Unassigned, Un [facility] [place] [facility] POCT GLUCOSE (AUTOMATED) 2020-08-06 22:06:00 Karena Degroot [facility] POCT GLUCOSE (AUTOMATED) 2020-08-06 17:36:00 Karena Degroot [facility] POCT GLUCOSE (AUTOMATED) 2020-08-06 13:37:00 Karena Degroot [facility] POCT GLUCOSE (AUTOMATED) 2020-08-06 03:24:00 Karena Degroot [facility] POCT GLUCOSE (AUTOMATED) 2020 22:44:00 Karena Degroot [facility] POCT GLUCOSE (AUTOMATED) 2020 17:58:00 Karena Degroot [facility] POCT GLUCOSE (AUTOMATED) 2020 13:55:00 Karena Degroot vers[facility] CBC WITH DIFF 2020 10:45:00 Karena Degroot [facility] POCT GLUCOSE (AUTOMATED) 2020 02:57:00 Karena Degroot [facility] POCT GLUCOSE (AUTOMATED) 2020-08-04 22:41:00 Karena Degroot [facility] POCT GLUCOSE (AUTOMATED) 2020-08-04 17:57:00 Karena Degroot [facility] POCT GLUCOSE (AUTOMATED) 2020-08-04 14:07:[address] [facility] CBC WITH DIFF 2020-08-04 09:46:00 Karena Degroot [facility] POCT GLUCOSE (AUTOMATED) 2020-08-04 02:13:[address] [facility] POCT GLUCOSE (AUTOMATED) 2020-08-03 23:32:[address] [facility] POCT GLUCOSE (AUTOMATED) 2020-08-03 17:39:[address] [facility] POCT GLUCOSE (AUTOMATED) 2020-08-03 13:52:[address] [facility] COMP. METABOLIC PANEL 2020-08-03 11:11:00 Karena Degroot [facility] ([id number]) [facility] CBC WITH DIFF 2020-08-03 11:11:00 Karena Degroot [facility] N-TERMINAL PRO-BNP 2020-08-03 11:11:00 Karena Degroot [facility] POCT GLUCOSE (AUTOMATED) 2020-08-03 01:42:[address] [facility] POCT GLUCOSE (AUTOMATED) 2020-08-02 23:38:[address] [facility] POCT GLUCOSE (AUTOMATED) 2020-08-02 22:49:[address] [facility] POCT GLUCOSE (AUTOMATED) 2020-08-02 17:56:[address] [facility] ECHO ROUTINE W/DOPPLER 2020-08-02 16:03:10 Karena Degroot [facility] POCT GLUCOSE (AUTOMATED) 2020-08-02 13:41:[address] [facility] MAGNESIUM 2020-08-02 11:02:00 Karena Degroot [facility] COMP. METABOLIC PANEL 2020-08-02 11:02:00 Karena Degroot [facility] ([id number]) [facility] CBC WITH DIFF 2020-08-02 11:02:00 Karena Degroot [facility] N-TERMINAL PRO-BNP 2020-08-02 11:02:00 Zane ella [facility] POCT GLUCOSE (AUTOMATED) 2020-08-02 01:47:[address] [facility] ACUTE CARE ARTERIAL BLOOD 2020-08-02 00:27:00 [facility] TROPONIN I 2020-08-01 23:39:00 Zane ella [facility] POCT GLUCOSE (AUTOMATED) 2020-08-01 22:41:[address] [facility] POCT GLUCOSE (AUTOMATED) 2020-08-01 17:30:[address] [facility] POCT GLUCOSE (AUTOMATED) 2020-08-01 13:45:[address] [facility] MAGNESIUM 2020-08-01 10:29:00 Karena Degroot [facility] VITAMIN B12, LEVEL 2020-08-01 10:29:00 Zane ella [facility] TROPONIN I 2020-08-01 10:29:00 Zane ella [facility] COMP. METABOLIC PANEL 2020-08-01 10:29:00 Karena Degroot [facility] ([id number]) [facility] IRON PANEL 2020-08-01 10:29:00 Karena Degroot [facility] SEDIMENTATION RATE 2020-08-01 10:29:00 Karena Degroot [facility] CBC WITH DIFF 2020-08-01 10:29:00 Zane ella [facility] PROTHROMBIN TIME / INR 2020-08-01 10:29:00 Karena Degroot [facility] N-TERMINAL PRO-BNP 2020-08-01 10:29:00 Zane ella [facility] VITAMIN D, 25-OH 2020-08-01 10:29:00 Karena Degroot [facility] PROCALCITONIN 2020-08-01 10:29:00 Zane ella [facility] POCT GLUCOSE (AUTOMATED) 2020-08-01 03:33:00 Som Reyes [facility] PHOSPHORUS 2020-08-01 01:06:00 [facility] CREATINE KINASE 2020-08-01 01:06:00 [facility] URIC ACID 2020-08-01 01:06:00 [facility] FERRITIN SERUM 2020-08-01 01:06:00 [facility] TROPONIN I 2020-08-01 01:06:00 Som Reyes [facility] THYROID STIMULATING 2020-08-01 01:06:00 Zane [facility] HORMONE [facility] LIPID PANEL ([id number])(TOTAL 2020-08-01 01:06:00 Karena Degroot [facility] CHOLESTEROL, [facility] TRIGLYCERIDES, HDL) COVID-19 (ID NOW RAPID 2020-08-01 00:30:00 Som Reyes [facility] TESTING) Medical Branch LAB ONLY COVID 2020-08-01 00:30:00 Som Reyes [facility] HEAD WO CONTRAST 2020-08-01 00:09:57 Som Reyes [facility] XR CHEST 1 VW 2020-08-01 00:02:17 Som Reyes [facility] URINALYSIS 2020-07-31 23:33:00 Som Reyes [facility] HB ECG ROUTINE & RHYTHM 2020-07-31 21:34:20 Som Reyes [facility] STRIP [facility] LIPASE 2020-07-31 21:32:00 Som Reyes [facility] MAGNESIUM 2020-07-31 21:32:00 Som Reyes [facility] TROPONIN I 2020-07-31 21:32:00 Som Reyes [facility] COMP. METABOLIC PANEL 2020-07-31 21:32:00 Som Reyes [facility] ([id number]) [facility] CBC WITH DIFF 2020-07-31 21:32:00 Som Reyes [facility] [place] GLYCOSYLATED HEMOGLOBIN 2020-07-31 21:32:00 Karena Degroot [facility] (A1C) [facility] N-TERMINAL PRO-BNP 2020-07-31 21:32:00 Som Reyes [facility] EMERGENCY DEPARTMENT 2020-07-31 06:01:00 Doctor Unassigned, [facility] DOCUMENTS [place] [facility] Post Op Promis 29 Survey 2019-04-11 00:00:00 [facility] [U] XR KNEE 1 OR 2 VWS 2018-05-15 00:00:00 [facility] BILATERAL [U] XRAY SHOULDER MIN 2 2018-01-11 00:00:00 [facility] VWS RIGHT [id number] [U] XRAY KNEE 1 OR 2 VWS 2017-09-13 00:00:00 [facility] RIGHT [id number] History of no history of [facility] surgery Encounters Start End Encounter Admission Attending Care Care Encounter Source Date/Time Date/Time Type Type Clinicians Facility Department ID 2021-07-04 2021-07-04 Outpatient ORQUIDEA GUNN [id number] Orquidea 16:30:00 16:30:00 CALVIN faustin 2021-02-13 2021-02-13 Laboratory Lab, Adc Fam Pob I [facility] 1.2. [id number] Univers 17:31:25 17:51:25 Only [employer] [id number] [facility] [id number] Andrés as Profteio [id number] [place] [address] Branch Office [address] One 2021-02-13 2021-02-13 Outpatient R [facility] [id number] Univers 17:20:00 17:20:00 [facility] 2021-02-13 2021-02-13 Orders Doctor BASURTO [id number] Univers 00:00:00 00:00:00 Only Unassigned, OFE 350.1.13.10 [facility] [place] [facility] 4.2.7.2.686 Andrés as [id number] [facility] 009 Branch 2021-02-13 2021-02-13 Letter Doctor SB [id number] Univers 00:00:00 00:00:00 (Out) Unassigned, OFE 350.1.13.10 [facility] [place] [facility] 4.2.7.2.686 Andrés as [id number] [facility] 044 Branch 2021-02-13 2021-02-13 Letter Doctor SB [id number] Univers 00:00:00 00:00:00 (Out) Unassigned, OFE 350.1.13.10 [facility] [place] [facility] 4.2.7.2.686 Andrés as [id number] [facility] 044 [place] 2020-10-14 2020-10-14 Outpatient Chuy [facility] [id number] Univers 15:00:00 11:14:36 KAL ity [facility] 2020-09-23 2020-09-23 Outpatient Chuy [facility] [id number] Univers 15:30:00 15:00:05 KAL ity [facility] 2020-07-31 2020-08-06 [facility] Som Reyes [facility] [id number] Univers 14:36:00 17:08:00 Encounter Karena Degroot [id number] ity of [place] 4.2.7.2.686 [facility] [id number] [facility] 081 [place] 2020-07-31 2020-07-31 Emergency X Som REYES [facility] ERT [id number] Univers 14:36:00 14:36:00 ity of [facility] 2019-07-14 2019-07-14 [facility] [id number] [place] 13:25:00 13:25:00 tYarely MENDEZ M.D. [place] M[place] 2019-05-27 2019-05-27 [facility] [id number] [place] 10:50:00 10:50:00 t; Tamir MENDEZ - Monique Wang M.D. 2019-05-12 2019-05-12 [facility] [id number] [place] 15:05:00 15:05:00 t; Tamir MENDEZ - elizabeth Sánchez M.D. 2019-05-12 2019-05-12 [facility] [id number] [place] 13:50:00 13:50:00 t; Tamir MENDEZ Ph elizabeth Willoughby M.D. 2019-04-14 2019-04-14 [facility] [id number] [place] 14:10:00 14:10:00 t; Tamir MENDEZ - [facility] Ph Mark Anthony Willoughby M.D. 2019-04-07 2019-04-07 [facility] [id number] [place] 08:00:00 08:00:00 t; Tamir MENDEZ - elizabeth Sánchez M.D. 2019-03-13 2019-03-13 [facility] [id number] [place] 15:30:00 15:30:00 t; Tamir MENDEZ - elizabeth Sánchez M.D. 2019-01-20 2019-01-20 [facility] [id number] [place] 15:55:00 15:55:00 t; Tamir MENDEZ - Monique Wang M.D. 2018-12-11 2018-12-11 [facility] [id number] [place] 14:45:00 14:45:00 t; Tamir MENDEZ ans SCOTT, M.D. 2018-05-15 2018-05-15 Appointmen JORGITO, UTP UTP [id number] [place] 13:55:00 13:55:00 t; Tamir MENDEZ Orthopedic Physicelaine BULL, Surgery - ans Papo MENDEZ M.D. 2018-03-19 2018-03-19 Appointmen JORGITO, UTP UTP [id number] [place] 14:40:00 14:40:00 t; Tamir MENDEZ Orthopedic Physicelaine BULL, Surgery - ans Papo MENDEZ M.D. 2018-02-06 2018-02-06 Appointmen JORGITO, UTP UTP [id number] [place] 14:10:00 14:10:00 t; Tamir MENDEZ Orthopedic Physicelaine BULL Surgery - ans Papo MENDEZ M.D. 2018-01-11 2018-01-11 Appointmen JORGITO, UTP UTP [id number] [place] 10:50:00 10:50:00 t; Tamir MENDEZ Orthopedic Physicelaine BULL Surgery - ans Papo MENDEZ M.D. 2017-12-10 2017-12-10 Appointmen JORGITO, UTP UTP [id number] [place] 15:00:00 15:00:00 t; Tamir MENDEZ Orthopedic Tai BULL Surgery - ans Tomas MENDEZ M.D. 2017-11-05 2017-11-05 Appointmen JORGITO, UTP UTP [id number] [place] 16:10:00 16:10:00 t; Tamir MENDEZ Orthopedic Physicelaine BULL Surgery - ans Papo MENDEZ M.D. 2017-10-15 2017-10-15 Appointmen JORGITO, UTP UTP [id number] [place] 15:45:00 15:45:00 t; Tamir MENDEZ Orthopedic Physicelaine BULL Surgery - ans Papo MENDEZ M.D. 2017-09-17 2017-09-17 Appointmen JORGITO, UTP UTP [id number] [place] 15:45:00 15:45:00 t; Tamir MENDEZ Orthopedic Physicelaine BULL Surgery - ans Papo MENDEZ M.D. 2017-09-13 2017-09-13 Appointmen JORGITO, UTP UTP [id number] [place] 15:20:00 15:20:00 lawanda MENDEZ M.D. Orthopedic Physici Luis Felipe BULL - ans Papo MENDEZ M.D. Results Test Description Test Time Test Comments Results Result Comments Source POCT GLUCOSE (AUTOMATED) 2020-08-06 22:21:00 Test Item Value Reference Range Interpretation Comme nts POCT GLU (test code = 2324467946) 116 mg/dL 70-110 H Lab Interpretation (test code = 92765-1) Abnormal [facility] GLUCOSE (AUTOMATED)2020-08-06 17:45:00 Test Item Value Reference Range Interpretation Comments POCT GLU (test code = 4558296519) 126 mg/dL 70-110 H Lab Interpretation (test code = Abnormal 41864-2) [facility] GLUCOSE (AUTOMATED)2020-08-06 13:52:00 Test Item Value Reference Range Interpretation Comments POCT GLU (test code = 5538224462) 124 mg/dL 70-110 H Lab Interpretation (test code = Abnormal 77357-4) [facility] GLUCOSE (AUTOMATED)2020-08-06 03:31:00 Test Item Value Reference Range Interpretation Comments POCT GLU (test code = 9178347079) 106 mg/dL 70-110 Lab Interpretation (test code = Normal 46697-9) [facility] GLUCOSE (AUTOMATED)2020 22:56:00 Test Item Value Reference Range Interpretation Comments POCT GLU (test code = 8505766254) 128 mg/dL 70-110 H Lab Interpretation (test code = Abnormal 18881-6) [facility] GLUCOSE (AUTOMATED)2020 18:27:00 Test Item Value Reference Range Interpretation Comments POCT GLU (test code = 7871042782) 136 mg/dL 70-110 H Lab Interpretation (test code = Abnormal 93536-8) [facility] GLUCOSE (AUTOMATED)2020 14:14:00 Test Item Value Reference Range Interpretation Comments POCT GLU (test code = 9779582548) 142 mg/dL 70-110 H Lab Interpretation (test code = Abnormal 91111-5) [facility] WITH [id number] 12:26:00 Test Item Value Reference Range Interpretation Comments WBC (test code = See_Comment [Automated 6690-2) message] The sy stem which generated this result transmitted reference range : 4.30 - 11.10 10*3/?L. The reference range was not used to interpret this result as normal/abnormal . RBC (test code = See_Comment L [Automated 789-8) message] The sy stem which generated this result transmitted reference range : 3.93 - 5.25 10*6/?L. The reference range was not used to interpret this result as normal/abnormal . HGB (test code = 10.5 g/dL 11.6-15 L 718-7) HCT (test code = 32.9 % 35.7-45.2 L 4544-3) MCV (test code = 93.5 fL 80.6-95.5 787-2) MCH (test code = 29.8 pg 25.9-32.8 785-6) MCHC (test code = 31.9 g/dL 31.6-35.1 786-4) RDW-SD (test code = 47.7 fL 39-49.9 81733-6) RDW-CV (test code = 14.0 % 12-15.5 788-0) PLT (test code = See_Comment [Automated 777-3) message] The sy stem which generated this result transmitted reference range : 166 - 358 10*3/ ?L. The reference r olamide was not used to interpret this result as normal/abnormal . MPV (test code = 10.5 fL 9.5-12.9 51820-6) NRBC/100 WBC (test See_Comment [Automat ed code = 4912827212) message] The system which generated this result transmitted reference range : 0.0 - 10.0 /100 WBCs. The refer ence range was not u sed to interpret th is result as normal/abnormal . NRBC x10^3 (test code <0.01 See_Comment [Auto mated = 1143401037) message] The s ystem which generated this result transmitted reference range : 10*3/?L. The reference range was not used to interpret this result as normal/abnormal . GRAN MAT (NEUT) % 62.0 % (test code = 770-8) IMM GRAN % (test code 0.60 % = 6911358718) LYMPH % (test code = 22.5 % 736-9) MONO % (test code = 11.7 % 5905-5) EOS % (test code = 2.8 % 713-8) BASO % (test code = 0.4 % 706-2) GRAN MAT x10^3(ANC) 6.26 10*3/uL 1.88-7.09 (test code = 2637736962) IMM GRAN x10^3 (test 0.06 10*3/uL 0-0.06 code = 1567924793) LYMPH x10^3 (test code 2.27 10*3/uL 1.32-3.29 = 731-0) MONO x10^3 (test code 1.18 10*3/uL 0.33-0.92 H = 742-7) EOS x10^3 (test code = 0.28 10*3/uL 0.03-0.39 711-2) BASO x10^3 (test code 0.04 10*3/uL 0.01-0.07 = 704-7) Lab Interpretation Abnormal (test code = 16686-9) [facility] GLUCOSE (AUTOMATED)2020 03:04:00 Test Item Value Reference Range Interpretation Comments POCT GLU (test code = 5054278812) 127 mg/dL 70-110 H Lab Interpretation (test code = Abnormal 91308-6) [facility] GLUCOSE (AUTOMATED)2020-08-04 22:49:00 Test Item Value Reference Range Interpretation Comments POCT GLU (test code = 2273173575) 122 mg/dL 70-110 H Lab Interpretation (test code = Abnormal 41909-6) [facility] GLUCOSE (AUTOMATED)2020-08-04 18:00:00 Test Item Value Reference Range Interpretation Comments POCT GLU (test code = 5955915471) 131 mg/dL 70-110 H Lab Interpretation (test code = Abnormal 51360-6) [facility] GLUCOSE (AUTOMATED)2020-08-04 14:12:00 Test Item Value Reference Range Interpretation Comments POCT GLU (test code = 5421553603) 124 mg/dL 70-110 H Lab Interpretation (test code = Abnormal 39642-3) [facility] WITH [id number] 10:09:00 Test Item Value Reference Range Interpretation Comments WBC (test code = See_Comment [Automated 6690-2) message] The sy stem which generated this result transmitted reference range : 4.30 - 11.10 10*3/?L. The reference range was not used to interpret this result as normal/abnormal . RBC (test code = See_Comment L [Automated 789-8) message] The sy stem which generated this result transmitted reference range : 3.93 - 5.25 10*6/?L. The reference range was not used to interpret this result as normal/abnormal . HGB (test code = 10.3 g/dL 11.6-15 L 718-7) HCT (test code = 32.5 % 35.7-45.2 L 4544-3) MCV (test code = 93.1 fL 80.6-95.5 787-2) MCH (test code = 29.5 pg 25.9-32.8 785-6) MCHC (test code = 31.7 g/dL 31.6-35.1 786-4) RDW-SD (test code = 47.0 fL 39-49.9 64568-0) RDW-CV (test code = 13.8 % 12-15.5 788-0) PLT (test code = See_Comment [Automated 777-3) message] The sy stem which generated this result transmitted reference range : 166 - 358 10*3/ ?L. The reference r olamide was not used to interpret this result as normal/abnormal . MPV (test code = 10.1 fL 9.5-12.9 93918-0) NRBC/100 WBC (test See_Comment [Automat ed code = [id number]) message] The system which generated this result transmitted reference range : 0.0 - 10.0 /100 WBCs. The refer ence range was not u sed to interpret th is result as normal/abnormal . NRBC x10^3 (test code <0.01 See_Comment [Auto mated = [id number]) message] The s ystem which generated this result transmitted reference range : 10*3/?L. The reference range was not used to interpret this result as normal/abnormal . GRAN MAT (NEUT) % 62.1 % (test code = 770-8) IMM GRAN % (test code 0.40 % = 3180688743) LYMPH % (test code = 22.8 % 736-9) MONO % (test code = 11.8 % 5905-5) EOS % (test code = 2.4 % 713-8) BASO % (test code = 0.5 % 706-2) GRAN MAT x10^3(ANC) 6.06 10*3/uL 1.88-7.09 (test code = 8043825926) IMM GRAN x10^3 (test 0.04 10*3/uL 0-0.06 code = 4232419511) LYMPH x10^3 (test code 2.23 10*3/uL 1.32-3.29 = 731-0) MONO x10^3 (test code 1.15 10*3/uL 0.33-0.92 H = 742-7) EOS x10^3 (test code = 0.23 10*3/uL 0.03-0.39 711-2) BASO x10^3 (test code 0.05 10*3/uL 0.01-0.07 = 704-7) Lab Interpretation Abnormal (test code = 33126-6) [facility] [id number] 02:44:00COVID DMT InterpretationInterpretation/Recommendations: Molecular NAAT Tests for Active Infection with the SARS-CoV-2 Virus: This result indicates that the patient has tested negative on one occasion for the SARS-CoV-2 virus that causes COVID-19 illness. This most likely indicates that the patient does not have an active infection with the SARS-CoV-2 virus. However, infection is not completely ruled out as the false negative rate for molecular NAAT testing using a nasopharyngeal sample can be up to 30%, mostly dependent on the timing of sample collection in relation to illness onset and any deficiencies in sampling techniques. If the patient has symptoms concerning for COVID-19 illness, a repeat NAAT test (PCR, Rapid ID Now, etc.) should be performed, at which time the SARS-CoV-2 virus - if present - may have reached a detectable viral load (usually peaking by the end of the first week of symptoms). Tests for IgM and/or IgG Antibodies to SARS-CoV-2 Virus: Testing for IgM and IgG antibodies 1-3weeks after illness onset will indicate whether the patient has produced antibodies to the virus. Atthis time, it is not known if the production of antibodies - specifically IgG antibodies - indicateswhether the patient is immune to future infections with the SARS-CoV-2 virus. Interpretation Result Comments:These interpretation comments are based upon all COVID-19 testing the patient has had at [facility], including molecular NAAT testing (more commonly known as PCR testing and Rapid ID Now testing) and antibody testing. It does not take into account any testing that a patient has had outside of the [facility] medical record. [facility] LABORATORY SERVICESCOVID ItgiayfAPQQ-RfW-7 Rapid ID NOW (no units) ? ? Date ? Value ? 07/31/2020 ? Not Detected ? [facility]2020-08-04 02:21:00 Test Item Value Reference Range Interpretation Comments POCT GLU (test code = 4165192109) 128 mg/dL 70-110 H Lab Interpretation (test code = Abnormal 53079-2) [facility] GLUCOSE (AUTOMATED)2020-08-03 23:35:00 Test Item Value Reference Range Interpretation Comments POCT GLU (test code = 9684275060) 121 mg/dL 70-110 H Lab Interpretation (test code = Abnormal 52985-1) [facility] GLUCOSE (AUTOMATED)2020-08-03 17:42:00 Test Item Value Reference Range Interpretation Comments POCT GLU (test code = 6445071513) 154 mg/dL 70-110 H Lab Interpretation (test code = Abnormal 27799-8) [facility] GLUCOSE (AUTOMATED)2020-08-03 13:54:00 Test Item Value Reference Range Interpretation Comments POCT GLU (test code = 6266653114) 138 mg/dL 70-110 H Lab Interpretation (test code = Abnormal 70594-0) [facility] [id number] 13:09:00 Test Item Value Reference Range Interpretation Comments NT-proBNP (test code 197 pg/mL See_Comment H [Autom ated = 5949949247) message] The system which generated this result transmitted reference range : <=125. The reference range was not used to interpret this result as normal/abnormal . RACHEL (test code = RACHEL) Biotin has been reported to cause a negative bias, interpret results relative to patient's use of biotin. Lab Interpretation Abnormal (test code = 57028-8) [facility] CampusCOMP. METABOLIC PANEL (32438)2020-08-03 13:00:00 Test Item Value Reference Range Interpretation Comments NA (test code = 139 mmol/L 135-145 6186124998) K (test code = 3.8 mmol/L 3.5-5 0779166548) CL (test code = 96 mmol/L 98-108 L 6816399021) CO2 TOTAL (test code = 36 mmol/L 23-31 H 6274671875) AGAP (test code = 2-16 6926231019) BUN (test code = 22 mg/dL 7-23 9219189221) GLUCOSE (test code = 129 mg/dL 70-110 H 4675736780) CREATININE (test code = 0.78 mg/dL 0.5-1.04 0505514505) TOTAL BILI (test code = 0.6 mg/dL 0.1-1.2 1021302192) CALCIUM (test code = 8.9 mg/dL 8.6-10.6 1932684894) T PROTEIN (test code = 7.3 g/dL 6.3-8.2 8242533896) ALBUMIN (test code = 4.2 g/dL 3.5-5 4796978053) ALK PHOS (test code = 91 U/L 34-122 9150446778) ALTv (test code = 16 U/L 5-35 1742-6) AST(SGOT) (test code = 23 U/L 13-40 2192606840) eGFR Calculation mL/min/1.73m2 (Non-) (test code = 1474243494) eGFR Calculation mL/min/1.73m2 () (test code = 8772370400) RACHEL (test code = RACHEL) Association of Glomerular Filtration Rate (GFR) and Staging of Kidney Disease* + --+ --+ ------+| GFR (mL/min/1.73 m2) ?| With Kidney Damage ?| ?Without Kidney Damage+ --------+ --------+ +| ?>90 ?| ?Stage one ?| ? Normal ?+ ---+ ---+ -------+| ?60-89 ?| ?Stage two ?| ? Decreased GFR ? + --+ --+ ------+| ?30-59 ?| ?Stage three ?| ? Stage three ? + --+ --+ ------+| ?15-29 ?| ?Stage four ? | ? Stage four ?+ ---+ ---+ -------+| ?<15 (or dialysis) ? ?| ?Stage five ? | ? Stage five ?+ ---+ ---+ -------+ *Each stage assumes the associated GFR level has been in effect for at least three months. ?Stages 1 to 5, with or without kidney disease, indicate chronic kidney disease. Notes: Determination of stages one and two (with eGFR >59mL/min/1.73 m2) requires estimation of kidney damage for at least three months as defined by structural or functional abnormalities of the kidney, manifested by either:Pathological abnormalities or Markers of kidney damage (including abnormalities in the composition of the blood or urine or abnormalities in imaging tests). Lab Interpretation Abnormal (test code = 48660-8) [facility] WITH [id number] 12:15:00 Test Item Value Reference Range Interpretation Comments WBC (test code = See_Comment [Automated 6910-2) message] The sy stem which generated this result transmitted reference range : 4.30 - 11.10 10*3/?L. The reference range was not used to interpret this result as normal/abnormal . RBC (test code = See_Comment L [Automated 6998) message] The sy stem which generated this result transmitted reference range : 3.93 - 5.25 10*6/?L. The reference range was not used to interpret this result as normal/abnormal . HGB (test code = 11.6 g/dL 11.6-15 718-7) HCT (test code = 37.5 % 35.7-45.2 4544-3) MCV (test code = 96.2 fL 80.6-95.5 H 787-2) MCH (test code = 29.7 pg 25.9-32.8 785-6) MCHC (test code = 30.9 g/dL 31.6-35.1 L 786-4) RDW-SD (test code = 49.4 fL 39-49.9 05059-1) RDW-CV (test code = 14.1 % 12-15.5 788-0) PLT (test code = See_Comment [Automated 777-3) message] The sy stem which generated this result transmitted reference range : 166 - 358 10*3/ ?L. The reference r olamide was not used to interpret this result as normal/abnormal . MPV (test code = 10.3 fL 9.5-12.9 88520-1) NRBC/100 WBC (test See_Comment [Automat ed code = 8839751592) message] The system which generated this result transmitted reference range : 0.0 - 10.0 /100 WBCs. The refer ence range was not u sed to interpret th is result as normal/abnormal . NRBC x10^3 (test code <0.01 See_Comment [Auto mated = 1512097276) message] The s ystem which generated this result transmitted reference range : 10*3/?L. The reference range was not used to interpret this result as normal/abnormal . GRAN MAT (NEUT) % 58.8 % (test code = 770-8) IMM GRAN % (test code 1.00 % = 3448998442) LYMPH % (test code = 25.1 % 736-9) MONO % (test code = 12.2 % 5905-5) EOS % (test code = 2.3 % 713-8) BASO % (test code = 0.6 % 706-2) GRAN MAT x10^3(ANC) 5.27 10*3/uL 1.88-7.09 (test code = 3837585139) IMM GRAN x10^3 (test 0.09 10*3/uL 0-0.06 H code = 0631885970) LYMPH x10^3 (test code 2.25 10*3/uL 1.32-3.29 = 731-0) MONO x10^3 (test code 1.09 10*3/uL 0.33-0.92 H = 742-7) EOS x10^3 (test code = 0.21 10*3/uL 0.03-0.39 711-2) BASO x10^3 (test code 0.05 10*3/uL 0.01-0.07 = 704-7) Lab Interpretation Abnormal (test code = 94428-9) [facility] GLUCOSE (AUTOMATED)2020-08-03 04:44:00 Test Item Value Reference Range Interpretation Comments POCT GLU (test code = 1334971588) 139 mg/dL 70-110 H Lab Interpretation (test code = Abnormal 47570-1) [facility] GLUCOSE (AUTOMATED)2020-08-03 02:41:00 Test Item Value Reference Range Interpretation Comments POCT GLU (test code = 4325503745) 129 mg/dL 70-110 H Lab Interpretation (test code = Abnormal 10245-1) [facility] GLUCOSE (AUTOMATED)2020-08-02 23:42:00 Test Item Value Reference Range Interpretation Comments POCT GLU (test code = 7505396756) 144 mg/dL 70-110 H Lab Interpretation (test code = Abnormal 69756-7) [facility] GLUCOSE (AUTOMATED)2020-08-02 23:11:00 Test Item Value Reference Range Interpretation Comments POCT GLU (test code = 2192625780) 173 mg/dL 70-110 H Lab Interpretation (test code = Abnormal 00168-9) [facility] CampusVITAMIN D, [id number] 20:49:00 Test Item Value Reference Range Interpretation Comments VIT D 25OH (test code = 39 ng/mL 25-80 49812-3) RACHEL (test code = RACHEL) Deficiency: <20 ng/mLInsufficiency : 20-24 ng/mLOptimal: 25-80 ng/mL Lab Interpretation (test Normal code = 51802-1) [facility] GLUCOSE (AUTOMATED)2020-08-02 17:59:00 Test Item Value Reference Range Interpretation Comments POCT GLU (test code = 0305766649) 166 mg/dL 70-110 H Lab Interpretation (test code = Abnormal 82223-6) [facility]2020-08-02 14:02:00 Test Item Value Reference Range Interpretation Comments POCT GLU (test code = 6307358281) 142 mg/dL 70-110 H Lab Interpretation (test code = Abnormal 49353-9) [facility] WITH [id number] 13:19:00 Test Item Value Reference Range Interpretation Comments WBC (test code = See_Comment [Automated 6690-2) message] The sy stem which generated this result transmitted reference range : 4.30 - 11.10 10*3/?L. The reference range was not used to interpret this result as normal/abnormal . RBC (test code = See_Comment L [Automated 789-8) message] The sy stem which generated this result transmitted reference range : 3.93 - 5.25 10*6/?L. The reference range was not used to interpret this result as normal/abnormal . HGB (test code = 10.2 g/dL 11.6-15 L 718-7) HCT (test code = 33.5 % 35.7-45.2 L 4544-3) MCV (test code = 95.7 fL 80.6-95.5 H 787-2) MCH (test code = 29.1 pg 25.9-32.8 785-6) MCHC (test code = 30.4 g/dL 31.6-35.1 L 786-4) RDW-SD (test code = 49.9 fL 39-49.9 85093-7) RDW-CV (test code = 14.1 % 12-15.5 788-0) PLT (test code = See_Comment [Automated 777-3) message] The sy stem which generated this result transmitted reference range : 166 - 358 10*3/ ?L. The reference r olamide was not used to interpret this result as normal/abnormal . MPV (test code = 10.4 fL 9.5-12.9 56464-0) NRBC/100 WBC (test See_Comment [Automat ed code = 1901099996) message] The system which generated this result transmitted reference range : 0.0 - 10.0 /100 WBCs. The refer ence range was not u sed to interpret th is result as normal/abnormal . NRBC x10^3 (test code <0.01 See_Comment [Auto mated = 3101275740) message] The [facility] which generated this result transmitted reference range : 10*3/?L. The reference range was not used to interpret this result as normal/abnormal . GRAN MAT (NEUT) % 57.2 % (test code = 770-8) IMM GRAN % (test code 0.70 % = 0469338731) LYMPH % (test code = 26.8 % 736-9) MONO % (test code = 12.1 % 5905-5) EOS % (test code = 2.5 % 713-8) BASO % (test code = 0.7 % 706-2) GRAN MAT x10^3(ANC) 4.41 10*3/uL 1.88-7.09 (test code = 7812235276) IMM GRAN x10^3 (test 0.05 10*3/uL 0-0.06 code = 1830175389) LYMPH x10^3 (test code 2.06 10*3/uL 1.32-3.29 = 731-0) MONO x10^3 (test code 0.93 10*3/uL 0.33-0.92 H = 742-7) EOS x10^3 (test code = 0.19 10*3/uL 0.03-0.39 711-2) BASO x10^3 (test code 0.05 10*3/uL 0.01-0.07 = 704-7) Lab Interpretation Abnormal (test code = 13675-0) [facility]MAGNESIUM2021-02-01 12:17:00 Test Item Value Reference Range Interpretation Comments MAGNESIUM (test code = 5698938158) 1.8 mg/dL 1.7-2.4 Lab Interpretation (test code = Normal 16782-6) [facility] CampusCOM. METABOLIC PANEL (21058)2020-08-02 12:16:00 Test Item Value Reference Range Interpretation Comments NA (test code = 138 mmol/L 135-145 8664464037) K (test code = 4.0 mmol/L 3.5-5 5278413011) CL (test code = 100 mmol/L 98-108 8351377310) CO2 TOTAL (test code = 33 mmol/L 23-31 H 3274146583) AGAP (test code = 2-16 5309415183) BUN (test code = 17 mg/dL 7-23 3880863810) GLUCOSE (test code = 125 mg/dL 70-110 H 8388918552) CREATININE (test code = 0.74 mg/dL 0.5-1.04 7520785936) TOTAL BILI (test code = 0.5 mg/dL 0.1-1.5 9955276270) CALCIUM (test code = 8.7 mg/dL 8.6-10.6 3796566654) T PROTEIN (test code = 6.6 g/dL 6.3-8.2 0429467081) ALBUMIN (test code = 3.8 g/dL 3.5-5 1911997766) ALK PHOS (test code = 86 U/L 34-122 1160182983) ALTv (test code = 16 U/L 5-35 1742-6) AST(SGOT) (test code = 22 U/L 13-40 9872507337) eGFR Calculation mL/min/1.73m2 (Non-) (test code = 7037026313) eGFR Calculation mL/min/1.73m2 () (test code = 9610655905) RACHEL (test code = RACHEL) Association of Glomerular Filtration Rate (GFR) and Staging of Kidney Disease* + --+ --+ ------+| GFR (mL/min/1.73 m2) ?| With Kidney Damage ?| ?Without Kidney Damage+ --------+ --------+ +| ?>90 ?| ?Stage one ?| ? Normal ?+ ---+ ---+ -------+| ?60-89 ?| ?Stage two ?| ? Decreased GFR ? + --+ --+ ------+| ?30-59 ?| ?Stage three ?| ? Stage three ? + --+ --+ ------+| ?15-29 ?| ?Stage four ? | ? Stage four ?+ ---+ ---+ -------+| ?<15 (or dialysis) ? ?| ?Stage five ? | ? Stage five ?+ ---+ ---+ -------+ *Each stage assumes the associated GFR level has been in effect for at least three months. ?Stages 1 to 5, with or without kidney disease, indicate chronic kidney disease. Notes: Determination of stages one and two (with eGFR >59mL/min/1.73 m2) requires estimation of kidney damage for at least three months as defined by structural or functional abnormalities of the kidney, manifested by either:Pathological abnormalities or Markers of kidney damage (including abnormalities in the composition of the blood or urine or abnormalities in imaging tests). Lab Interpretation Abnormal (test code = 93234-2) [facility] CampusN-TERMINAL [id number] 12:14:00 Test Item Value Reference Range Interpretation Comments NT-proBNP (test code 331 pg/mL See_Comment H [Autom ated = 3942420770) message] The system which generated this result transmitted reference range : <=125. The reference range was not used to interpret this result as normal/abnormal . RACHEL (test code = RACHEL) Biotin has been reported to cause a negative bias, interpret results relative to patient's use of biotin. Lab Interpretation Abnormal (test code = 71260-4) [facility] Arterial Blood Gas.2020-08-02 00:33:00 Test Item Value Reference Range Interpretation Comments PH (test code = 2) 7.35-7.45 PCO2 (test code = See_Comment H [Automat ed message] 6535856189) The system [employer] generated this result transmitted ref erence range: 35 - 45 mmHg. The reference r olamide was not used to interpret this result as normal/abnor mal. PO2 (test code = See_Comment L [Automated message] 9624384841) The system [employer] generated this result transmitted ref erence range: 80 - 100 mmHg. The reference r olamide was not used to interpret this result as normal/abnor mal. HCO3 (test code = See_Comment H [Automate d message] 2201752344) The system [employer] generated this result transmitted ref erence range: 22 - 26 mEq/L. The reference r olamide was not used to interpret this result as normal/abnor mal. BE (test code = See_Comment H [Automated message] 5728985938) The system [employer] generated this result transmitted ref erence range: -3.0 - 3 .0 mEq/L. The refe rence range was not u sed to interpret this result as normal/abnor mal. Lab Interpretation (test Abnormal code = 81509-5) [facility] CampusTROPONIN [id number] 00:23:00 Test Item Value Reference Range Interpretation Comments TROPONIN I (test <0.012 See_Comment [Automated code = 6460336177) message] The system which generated this result transmitted reference range : <=0.034 ng/mL. The reference range was not used to interpr et this result as normal/abnormal . RACHEL (test code = Equal or Less than RACHEL) 0.034 ng/ml---Normal ?Note: Cardiac troponin begins to rise 3-4 hours after the onset of ischemia. Repeat in 4-6 hours if the sample was drawn within 3-4 hours of the onset of the symptom and found normal. Between 0.035 and 0.120 ng/mL--- Borderline. Questionable myocardial injury or necrosis ? ?Note: Serial measurement may be necessary to confirm or exclude the diagnosis of myocardial injury or necrosis; Clinical correlation (symptoms, EKGs, imaging studies, and others) required; Repeat in 4-6 hours if clinically indicated. ? Equal or Higher than 0.121 ng/mL---Abnormal. Myocardial Injury or Necrosis Likely ? Biotin has been reported to cause a negative bias, interpret results relative to patient's use of biotin. ? Lab Interpretation Normal (test code = 01444-4) [facility] (AUT[facility]ATED)2020-08-01 22:57:00 Test Item Value Reference Range Interpretation Comments POCT GLU (test code = 8840896088) 114 mg/dL 70-110 H Lab Interpretation (test code = Abnormal 68773-7) [facility] CampusXR CHEST 1 [id number] 21:04:31 No acute cardiopulmonary process. Preliminary Report Dictated by Resident: Chris Parish MD., have reviewed this study and agree with the abovereport.EXAM: XR CHEST 1 VW COMPARISON: None. HISTORY: leg swelling ? TECHNIQUE: Frontal view of the chest was obtained. FINDINGS: Lungs/pleura: ?The lungs are clear. No focal consolidation identified. Nopleural effusion or pneumothorax is identified. Heart/Mediastinum: The cardiac silhouette is normal in size. No acute osseous abnormality. Bilateral left greater than rightglenohumeral osteoarthrosis. [facility], Radiant Results Inft User - 08/01/2020 3:05 PM CSTEXAM: XR CHEST 1 VWCOMPARISON: None.HISTORY: leg swelling TECHNIQUE: Frontal view of the chest was obtained.FINDINGS:Lungs/pleura: The lungs are clear. No focal consolidation identified. Nopleural effusion or pneumothorax is identified.Heart/Mediastinum: The cardiac silhouette is normal in size.No acute osseous abnormality. Bilateral left greater than rightglenohumeral osteoarthrosis.IMPRESSIONNo acute cardiopulmonary process.Preliminary Report Dictated by Resident: Chris Mixon MD., have reviewed this study and agree with the abovereport.[facility] CampusVITAMIN B12, [id number] 19:21:00 Test Item Value Reference Range Interpretation Comments VIT B12 (test code = 355 pg/mL 240-930 5539196300) RACHEL (test code = RACHEL) Biotin has been reported to cause a positive bias, interpret results relative to patient's use of biotin. Lab Interpretation (test Normal code = 20917-0) [facility]PO[facility] (AUT[facility]ATED)2020-08-01 17:48:00 Test Item Value Reference Range Interpretation Comments POCT GLU (test code = 5787382693) 110 mg/dL 70-110 Lab Interpretation (test code = Normal 16442-7) [facility] CampusPROCALCITONIN2021-01-31 17:33:00 Test Item Value Reference Range Interpretation Comments Procalcitonin (test 0.03 ng/mL <0.07 code = 3675302604) RACHEL (test code = RACHEL) INTERPRETATION OF PROCALCITONIN RESULTS IN ADULTS >= 18 YEARS OF AGE Initiation and discontinuation of antibiotics on patients with suspected or confirmed Lower Respiratory Tract Infection in Adults >= 18 years of age. + +-------- --------+ + -----+|Procalcitonin |Interpretation ?|Antibiotic ? ? |Considerations ? |ng/mL ? | ?|recommendation | ? + +-------- --------+ + -----+| <0.1 ? | Bacterial ? ? ?| Strongly ? ? ?| ? | ?| infection very | discouraged ? | Overruling: ? | ?| unlikely ? ? ? | ? | ? Clinically unstable ? ? ? + +-------- --------+ + ? High risk for adverse ? ? | <0.25 ?| Bacterial ? ? ?| Discouraged ? | ? outcome ? | ?| infection ? ? ?| ? | ? SEE IMPORTANT NOTE ?| ?| unlikely ? ? ? | ? | ? + +-------- --------+ + -----+| >=0.25 ? ? ? | Bacterial ? ? ?| Encouraged ? ?| ? | ?| infection ? ? ?| ? | ? | ?| likely ? | ? | Consider treatment failure ?+ +------- ---------+ -+ if levels does not decrease | >0.5 ? | Bacterial ? ? ?| Strongly ? ? ?| appropriately ? | ?| infection very | encouraged ? ?| ? | ?| likely ? | ? | ? + +-------- --------+ + -----+ Discontinuation of antibiotics in high-acuity patients with suspected or confirmed sepsis in Adults >= 18 years of age. + +-------- --------+ + -----+|Procalcitonin |Interpretation ?|Antibiotic ? ? |Considerations ? |ng/mL ? | ?|recommendation | ? + +-------- --------+ + -----+| <0.25 ?| Bacterial ? ? ?| Strongly ? ? ?| ? | ?| infection very | discouraged ? | Overruling: ? | ?| unlikely ? ? ? | ? | ? Clinically unstable ? ? ? + +-------- --------+ + ? High risk for adverse ? ? | <0.5 or drop | Bacterial ? ? ?| Discouraged ? | ? outcome ? | >80% from ? ?| infection ? ? ?| ? | ? SEE IMPORTANT NOTE ?| highest PCT ?| unlikely ? ? ? | ? | ? | level ?| ?| ? | ? + +-------- --------+ + -----+| >=0.5 ?| Bacterial ? ? ?| Encouraged ? ?| ? | ?| infection ? ? ?| ? | ? | ?| likely ? | ? | Consider treatment failure ?+ +------- ---------+ -+ if levels does not decrease | >1.0 ? | Bacterial ? ? ?| Strongly ? ? ?| appropriately ? | ?| infection very | encouraged ? ?| ? | ?| likely ? | ? | ? + +-------- --------+ + -----+ Percentage of drop of Procalcitonin calculation for Discontinuation of antibiotics in high-acuity patients with suspected or confirmed sepsis in Adults >= 18 years of age. ? Procalcitonin highest{}-Procalcitonin current{}Delta Procalcitonin = x100% ? Procalcitonin current {} IMPORTANT NOTE: Procalcitonin may be elevated without bacterial infection by physiologic stress related to trauma, guerrero, chronic dialysis, metastatic cancer, surgery in the past seven days, malaria, some fungal infections, and some forms of vasculitis. The interpretation algorithm may not apply to patients with immunosuppression (equivalent of >10 mg of prednisone daily), HIV with CD4 cell count < 350 cells/mm3, active malignancy on systemic chemotherapy, solid organ transplant or hematopoietic stem cell transplantation, or hospital acquired pneumonia. Additionally, some clinical trials of procalcitonin have excluded patients with shock requiring vasopressor use, acute respiratory failure requiring mechanical ventilation, or those with known lung abscess/empyema. For further information please refer to:[email or web address] Lab Interpretation Normal (test code = 72795-1) [facility])2020-08-01 13:48:00 Test Item Value Reference Range Interpretation Comments POCT GLU (test code = [id number]) 135 mg/dL 70-110 H Lab Interpretation (test code = Abnormal 03950-3) [facility] CampusSEDIMENTATION [id number] 12:43:00 Test Item Value Reference Range Interpretation Comments ESR (test code = See_Comment H [Automated message] 5588289925) The system [employer] h generated this result transmitted ref erence range: 0 - 20 m m/HR. The reference r olamide was not used to interpret this result as normal/abnor mal. Lab Interpretation (test Abnormal code = 93557-7) [facility] CampusPROTHROMBIN TIME / [id number] 12:32:00 Test Item Value Reference Range Interpretation Comments PROTIME PATIENT (test See_Comment [Auto mated message] code = 5964-2) The system [employer] generated this result transmitted ref erence range: 12.0 - 1 4.7 Seconds. The re ference range was not u sed to interpret this result as normal/abnor mal. INR (test code = 6301-6) Nor mal INR <1.1; Warfarin Therap eutic range 2.0 to 3. 0 or 2.5 to 3.5, dep ending upon the indica tions. Lab Interpretation (test Normal code = 50041-6) [facility] CampusCOMP. METABOLIC PANEL (35479)2020-08-01 12:20:00 Test Item Value Reference Range Interpretation Comments NA (test code = 141 mmol/L 135-145 8952002586) K (test code = 4.4 mmol/L 3.5-5 9418854068) CL (test code = 101 mmol/L 98-108 6811702355) CO2 TOTAL (test code = 33 mmol/L 23-31 H 7443851608) AGAP (test code = 2-16 4978979665) BUN (test code = 21 mg/dL 7-23 2874219535) GLUCOSE (test code = 115 mg/dL 70-110 H 4988907298) CREATININE (test code = 0.83 mg/dL 0.5-1.04 2761658774) TOTAL BILI (test code = 0.5 mg/dL 0.1-1.0 0755699084) CALCIUM (test code = 9.1 mg/dL 8.6-10.6 6200917763) T PROTEIN (test code = 6.8 g/dL 6.3-8.2 0854630098) ALBUMIN (test code = 4.0 g/dL 3.5-5 2851196460) ALK PHOS (test code = 86 U/L 34-122 7935396056) ALTv (test code = 19 U/L 5-35 1742-6) AST(SGOT) (test code = 24 U/L 13-40 6795888602) eGFR Calculation mL/min/1.73m2 (Non-) (test code = 9685746522) eGFR Calculation mL/min/1.73m2 () (test code = 4686127442) RACHEL (test code = RACHEL) Association of Glomerular Filtration Rate (GFR) and Staging of Kidney Disease* + --+ --+ ------+| GFR (mL/min/1.73 m2) ?| With Kidney Damage ?| ?Without Kidney Damage+ --------+ --------+ +| ?>90 ?| ?Stage one ?| ? Normal ?+ ---+ ---+ -------+| ?60-89 ?| ?Stage two ?| ? Decreased GFR ? + --+ --+ ------+| ?30-59 ?| ?Stage three ?| ? Stage three ? + --+ --+ ------+| ?15-29 ?| ?Stage four ? | ? Stage four ?+ ---+ ---+ -------+| ?<15 (or dialysis) ? ?| ?Stage five ? | ? Stage five ?+ ---+ ---+ -------+ *Each stage assumes the associated GFR level has been in effect for at least three months. ?Stages 1 to 5, with or without kidney disease, indicate chronic kidney disease. Notes: Determination of stages one and two (with eGFR >59mL/min/1.73 m2) requires estimation of kidney damage for at least three months as defined by structural or functional abnormalities of the kidney, manifested by either:Pathological abnormalities or Markers of kidney damage (including abnormalities in the composition of the blood or urine or abnormalities in imaging tests). Lab Interpretation Abnormal (test code = 69205-8) [facility] CampusTRESTEPHANIA [id number] 12:18:00 Test Item Value Reference Range Interpretation Comments TROPONIN I (test <0.012 See_Comment [Automated code = 0069695516) message] The system which generated this result transmitted reference range : <=0.034 ng/mL. The reference range was not used to interpr et this result as normal/abnormal . RACHEL (test code = Equal or Less than RACHEL) 0.034 ng/ml---Normal ?Note: Cardiac troponin begins to rise 3-4 hours after the onset of ischemia. Repeat in 4-6 hours if the sample was drawn within 3-4 hours of the onset of the symptom and found normal. Between 0.035 and 0.120 ng/mL--- Borderline. Questionable myocardial injury or necrosis ? ?Note: Serial measurement may be necessary to confirm or exclude the diagnosis of myocardial injury or necrosis; Clinical correlation (symptoms, EKGs, imaging studies, and others) required; Repeat in 4-6 hours if clinically indicated. ? Equal or Higher than 0.121 ng/mL---Abnormal. Myocardial Injury or Necrosis Likely ? Biotin has been reported to cause a negative bias, interpret results relative to patient's use of biotin. ? Lab Interpretation Normal (test code = 54282-0) [facility] CampusIRO [id number] 12:15:00 Test Item Value Reference Range Interpretation Comments IRON (test code = 7861337482) 35 ug/dL 50-160 L TIBC (test code = 4214703842) 462 ug/dL 250-410 H % FE SAT (test code = 3706191064) 8 % 20-50 L Lab Interpretation (test code = Abnormal 51973-1) [facility] CampusN-TERMINAL [id number] 12:14:00 Test Item Value Reference Range Interpretation Comments NT-proBNP (test code 127 pg/mL See_Comment H [Autom ated = 3916239861) message] The system which generated this result transmitted reference range : <=125. The reference range was not used to interpret this result as normal/abnormal . RACHEL (test code = RACHEL) Biotin has been reported to cause a negative bias, interpret results relative to patient's use of biotin. Lab Interpretation Abnormal (test code = 36655-6) [facility] CampusMAGNESIUM2021-01-31 12:06:00 Test Item Value Reference Range Interpretation Comments MAGNESIUM (test code = 0316617441) 1.9 mg/dL 1.7-2.4 Lab Interpretation (test code = Normal 54145-6) [facility] WITH [id number] 11:52:00 Test Item Value Reference Range Interpretation Comments WBC (test code = See_Comment [Automated 6690-2) message] The sy stem which generated this result transmitted reference range : 4.30 - 11.10 10*3/?L. The reference range was not used to interpret this result as normal/abnormal . RBC (test code = See_Comment L [Automated 789-8) message] The sy stem which generated this result transmitted reference range : 3.93 - 5.25 10*6/?L. The reference range was not used to interpret this result as normal/abnormal . HGB (test code = 10.6 g/dL 11.6-15 L 718-7) HCT (test code = 33.7 % 35.7-45.2 L 4544-3) MCV (test code = 95.7 fL 80.6-95.5 H 787-2) MCH (test code = 30.1 pg 25.9-32.8 785-6) MCHC (test code = 31.5 g/dL 31.6-35.1 L 786-4) RDW-SD (test code = 50.2 fL 39-49.9 H 32469-8) RDW-CV (test code = 14.3 % 12-15.5 788-0) PLT (test code = See_Comment [Automated 777-3) message] The sy stem which generated this result transmitted reference range : 166 - 358 10*3/ ?L. The reference r olamide was not used to interpret this result as normal/abnormal . MPV (test code = 10.4 fL 9.5-12.9 06480-9) NRBC/100 WBC (test See_Comment [Automat ed code = 7484702676) message] The system which generated this result transmitted reference range : 0.0 - 10.0 /100 WBCs. The refer ence range was not u sed to interpret th is result as normal/abnormal . NRBC x10^3 (test code <0.01 See_Comment [Auto mated = 2328590607) message] The s ystem which generated this result transmitted reference range : 10*3/?L. The reference range was not used to interpret this result as normal/abnormal . GRAN MAT (NEUT) % 58.1 % (test code = 770-8) IMM GRAN % (test code 0.80 % = 6893690983) LYMPH % (test code = 26.5 % 736-9) MONO % (test code = 11.0 % 5905-5) EOS % (test code = 3.0 % 713-8) BASO % (test code = 0.6 % 706-2) GRAN MAT x10^3(ANC) 4.92 10*3/uL 1.88-7.09 (test code = 2722972816) IMM GRAN x10^3 (test 0.07 10*3/uL 0-0.06 H code = 5141479669) LYMPH x10^3 (test code 2.24 10*3/uL 1.32-3.29 = 731-0) MONO x10^3 (test code 0.93 10*3/uL 0.33-0.92 H = 742-7) EOS x10^3 (test code = 0.25 10*3/uL 0.03-0.39 711-2) BASO x10^3 (test code 0.05 10*3/uL 0.01-0.07 = 704-7) Lab Interpretation Abnormal (test code = 85725-3) [facility] CampusFERRITIN [id number] 09:23:00 Test Item Value Reference Range Interpretation Comments FERRITIN (test code = 8.9 ng/mL 11-264 L 8820189614) RACHEL (test code = RACHEL) Biotin has been reported to cause a negative bias, interpret results relative to patient's use of biotin. Lab Interpretation (test Abnormal code = 64014-8) [facility] CampusTHYROID STIMULATING [id number] 09:20:00 Test Item Value Reference Range Interpretation Comments TSH (test code = See_Comment [Automated message] 7154908533) The system [employer] generated this result transmitted ref erence range: 0.45 - 4 .70 mIU/L. The refe rence range was not u sed to interpret this result as normal/abnor mal. Lab Interpretation (test Normal code = 99718-4) [facility] CampusGLYCOSYLATED HEMOGLOBIN (A1C)2020-08-01 08:54:00 Test Item Value Reference Range Interpretation Comments HGB A1C (test code = 5.9 % 4-6 4548-4) RACHEL (test code = RACHEL) %A1C (NGSP) Interpretation (ADA)4.8-5.6 ? ? Normal or (Non-Diabetic Range)5.7-6.4 ? ? Increased Risk (Pre-Diabetic)>6.5 ?Diabetes Indicated Lab Interpretation Normal (test code = 84579-0) [facility] CampusURIC [id number] 08:50:00 Test Item Value Reference Range Interpretation Comments URIC ACID (test code = 4139878492) 5.9 mg/dL 2.9-6 Lab Interpretation (test code = Normal 43353-0) [facility] CampusCREATINE [id number] 08:50:00 Test Item Value Reference Range Interpretation Comments CK (test code = 2189871335) 67 U/L 33-194 Lab Interpretation (test code = Normal 67190-4) [facility] CampusPHOSPHORUS2021-01-31 08:50:00 Test Item Value Reference Range Interpretation Comments PHOSPHORUS (test code = 5860957371) 3.8 mg/dL 2.5-5 Lab Interpretation (test code = Normal 95528-4) [facility] CampusLIPID PANEL (66526)(TOTAL CHOLESTEROL, TRIGLYCERIDES, HDL)2020-08-01 08:48:00 Test Item Value Reference Range Interpretation Comments CHOL (test code = 148 mg/dL 120-200 4419375263) HDL (test code = 64 mg/dL >50 6874138263) HDLC RATIO (test code = See_Comment [Au tomated message] 6876161319) The system [employer] generated this result transmit terry reference range : <=4.5. The refe rence range was not u sed to interpret th is result as normal/abnormal . TRIG (test code = 91 mg/dL 30-170 9243273948) LDL CHOL (test code = 66 mg/dL See_Comment [Auto mated message] 86719-7) The system [employer] generated this result transmit terry reference range : <=160. The refe rence range was not u sed to interpret th is result as normal/abnormal . VLDL (test code = 18 mg/dL 5-60 9418287493) Lab Interpretation (test Normal code = 74718-8) [facility] CampusPOCT GLUCOSE (AUTOMATED)2020-08-01 03:35:00 Test Item Value Reference Range Interpretation Comments POCT GLU (test code = 0120095845) 164 mg/dL 70-110 H Lab Interpretation (test code = Abnormal 38588-3) [facility] CampusTROPONIN [id number] 02:02:00 Test Item Value Reference Range Interpretation Comments TROPONIN I (test <0.012 See_Comment [Automated code = 3094619016) message] The system which generated this result transmitted reference range : <=0.034 ng/mL. The reference range was not used to interpr et this result as normal/abnormal . RACHEL (test code = Equal or Less than RACHEL) 0.034 ng/ml---Normal ?Note: Cardiac troponin begins to rise 3-4 hours after the onset of ischemia. Repeat in 4-6 hours if the sample was drawn within 3-4 hours of the onset of the symptom and found normal. Between 0.035 and 0.120 ng/mL--- Borderline. Questionable myocardial injury or necrosis ? ?Note: Serial measurement may be necessary to confirm or exclude the diagnosis of myocardial injury or necrosis; Clinical correlation (symptoms, EKGs, imaging studies, and others) required; Repeat in 4-6 hours if clinically indicated. ? Equal or Higher than 0.121 ng/mL---Abnormal. Myocardial Injury or Necrosis Likely ? Biotin has been reported to cause a negative bias, interpret results relative to patient's use of biotin. ? Lab Interpretation Normal (test code = 17029-2) [facility] CampusCT HEAD WO [id number] 00:58:08 No acute intracranial abnormality. Small right frontal scalp contusion without underlying calvarialfracture.Background uyeq-ub-lkvtvctt ischemic small vessel disease. Preliminary Report Dictated by Resident: Areli Collins I, Sb Torres MD., have reviewed this study and agree with theabove report.CT HEAD WITHOUT CONTRAST HISTORY: Head trauma, minor (Age >= 65y) Possible remote CVA with mentalstatus change. ?Unsure of baseline. Also has frequent falls COMPARISON: ?None. TECHNIQUE: Axial CTof the head was performed and reconstructed at 5 mmintervals. Coronal and sagittal reformatted images were generated. FINDINGS: No intracranial abnormality such as hemorrhage, edema, mass, mass-effect,midline shift, or extra axial fluid collection is appreciated. The ventricles, sulci, and basal cisterns are within normal limits. Nohydrocephalus is seen. The bass-white matter differentiation is preserved. Patchy hypoattenuationin the deep white matter. The calvarium and skull base are intact. Small right frontal scalpcontusion without underlying calvarial fracture. The visualized paranasalsinuses and mastoid air cells are essentially clear with a small retentioncyst in the right sphenoid sinus. [facility], Radiant Results Inft User - 07/31/2020 6:59 PM CSTCT HEAD WITHOUT CONTRASTHISTORY: Head trauma, minor (Age >= 65y) Possible remote CVA with mentalstatus change. Unsure of baseline. Also has frequent fallsCOMPARISON: None.TECHNIQUE: Axial CT of the head was performed and reconstructed at 5 mmintervals. Coronal and sagittal reformatted images were generated.FINDINGS:No intracranial abnormality such as hemorrhage, edema, mass, mass-effect,midline shift, or extra axial fluid collection is appreciated.The ventricles, sulci, and basal cisterns are within normal limits. Nohydrocephalus is seen.The bass-white matter differentiation is preserved. Patchy hypoattenuationin the deep white matter.The calvarium and skull base are intact. Small right frontal scalpcontusion without underlying calvarial fracture. The visualized paranasalsinuses and mastoid air cells are essentially clear with a small retentioncyst in the right sphenoid sinus.IMPRESSIONNo acute intracranial abnormality.Small right frontal scalp contusion without underlying calvarial fracture.Background aedh-jx-fctdplse ischemic small vessel disease.Preliminary Report Dictated by Resident: Areli Delgado, Sb Torres MD., have reviewed this study and agree with theabove report.[facility] CampusCOVID-19 (ID NOW RAPID TESTING)2020-08-01 00:51:00 Test Item Value Reference Range Interpretation Comments SARS-CoV-2 Rapid ID NOW Not Detected Not Detected (test code = 64365-0) RACHEL (test code = RACHEL) ID NOW COVID-19 Assay is an isothermal nucleic acid amplification test intended for the qualitative detection of nucleic acid from SARS-CoV-2 viral RNA in nasopharyngeal (GERIATRICS PHYSICIAN) specimens. It is used under Emergency Use Authorization (EUA) by FDA. The limit of detection (LOD) of the assay is 125 Genome Equivalents/mL. A positive result is indicative of the presence of SARS-CoV-2 RNA. ?Clinical correlation with patient history and other diagnostic information is necessary to determine patient infection status. A negative (Not Detected) result does not preclude SARS-CoV-2 infection. In patients with clinical symptoms and other tests that are consistent with SARS-CoV-2 infection, negative results should be treated as presumptive negative and a new specimen should be tested with alternative PCR molecular test. Invalid: Please collect a new specimen for repeat patient testing if clinically indicated. Lab Interpretation Normal (test code = 32502-8) [facility] CampusURINALYSIS2021-01-31 00:03:00 Test Item Value Reference Range Interpretation Comments APPEARANCE (test code = Clear Clear 8562335056) COLOR (test code = Yellow Yellow 3074386504) PH (test code = 4.8-8.0 9192178273) SP GRAVITY (test code = 1.003-1.030 3289134594) GLU U QUAL (test code = Normal Normal 2415323421) BLOOD (test code = Negative Negative 0458021498) KETONES (test code = Negative Negative 3993190782) PROTEIN (test code = Negative Negative 2887-8) UROBILIN (test code = Normal Normal 4792540275) BILIRUBIN (test code = Negative Negative 4013058984) NITRITE (test code = Negative Negative 1810580664) LEUK MANUEL (test code = Negative Negative 8946117920) RBC/HPF (test code = See_Comment [Autom ated message] 9774662295) The system [employer] generated this result transmitted ref erence range: 0 - 3 HP F. The reference range was not used to int erpret this result as normal/abnormal . WBC/HPF (test code = See_Comment [Autom ated message] 4160676900) The system [employer] generated this result transmitted ref erence range: 0 - 5 HP F. The reference range was not used to int erpret this result as normal/abnormal . BACTERIA (test code = Few Negative A 3134950373) MUCOUS (test code = Slight Negative LPF A 6660567264) SQ EPITH (test code = <1 HPF 8735091937) YEAST BUD (test code = See_Comment H [Aut omated message] 5719130156) The system [employer] generated this result transmitted ref erence range: <=1 HPF. The reference range was not used to int erpret this result as normal/abnormal . HYAL CAST (test code = See_Comment H [Aut omated message] 4430941485) The system [employer] generated this result transmitted ref erence range: <=2 LPF. The reference range was not used to int erpret this result as normal/abnormal . Lab Interpretation (test Abnormal code = 87681-1) [facility] [id number] 22:08:00 Test Item Value Reference Range Interpretation Comments TROPONIN I (test <0.012 See_Comment [Automated code = 8000202209) message] The system which generated this result transmitted reference range : <=0.034 ng/mL. The reference range was not used to interpr et this result as normal/abnormal . RACHEL (test code = Equal or Less than RACHEL) 0.034 ng/ml---Normal ?Note: Cardiac troponin begins to rise 3-4 hours after the onset of ischemia. Repeat in 4-6 hours if the sample was drawn within 3-4 hours of the onset of the symptom and found normal. Between 0.035 and 0.120 ng/mL--- Borderline. Questionable myocardial injury or necrosis ? ?Note: Serial measurement may be necessary to confirm or exclude the diagnosis of myocardial injury or necrosis; Clinical correlation (symptoms, EKGs, imaging studies, and others) required; Repeat in 4-6 hours if clinically indicated. ? Equal or Higher than 0.121 ng/mL---Abnormal. Myocardial Injury or Necrosis Likely ? Biotin has been reported to cause a negative bias, interpret results relative to patient's use of biotin. ? Lab Interpretation Normal (test code = 14815-6) [facility] CampusN-TERMINAL [id number] 22:05:00 Test Item Value Reference Range Interpretation Comments NT-proBNP (test code 89 pg/mL See_Comment [Autom ated = 0203768126) message] The system which generated this result transmitted reference range : <=125. The reference range was not used to interpret this result as normal/abnormal . RACHEL (test code = RACHEL) Biotin has been reported to cause a negative bias, interpret results relative to patient's use of biotin. Lab Interpretation Normal (test code = 19617-0) [facility] CampusCOMP. METABOLIC PANEL (75662)2020-07-31 21:56:00 Test Item Value Reference Range Interpretation Comments NA (test code = 138 mmol/L 135-145 6057917842) K (test code = 4.0 mmol/L 3.5-5 8269819386) CL (test code = 102 mmol/L 98-108 7184240441) CO2 TOTAL (test code = 30 mmol/L 23-31 3744558960) AGAP (test code = 2-16 3664722051) BUN (test code = 24 mg/dL 7-23 H 4287665829) GLUCOSE (test code = 158 mg/dL 70-110 H 0407319308) CREATININE (test code = 0.87 mg/dL 0.5-1.04 2490222567) TOTAL BILI (test code = 0.5 mg/dL 0.1-1.6 1904508707) CALCIUM (test code = 8.9 mg/dL 8.6-10.6 7299831254) T PROTEIN (test code = 6.6 g/dL 6.3-8.2 7916194520) ALBUMIN (test code = 4.0 g/dL 3.5-5 9267619338) ALK PHOS (test code = 80 U/L 34-122 9125172672) ALTv (test code = 19 U/L 5-35 1742-6) AST(SGOT) (test code = 25 U/L 13-40 7905012102) eGFR Calculation mL/min/1.73m2 (Non-) (test code = 5469353642) eGFR Calculation mL/min/1.73m2 () (test code = 6601897155) RACHEL (test code = RACHEL) Association of Glomerular Filtration Rate (GFR) and Staging of Kidney Disease* + --+ --+ ------+| GFR (mL/min/1.73 m2) ?| With Kidney Damage ?| ?Without Kidney Damage+ --------+ --------+ +| ?>90 ?| ?Stage one ?| ? Normal ?+ ---+ ---+ -------+| ?60-89 ?| ?Stage two ?| ? Decreased GFR ? + --+ --+ ------+| ?30-59 ?| ?Stage three ?| ? Stage three ? + --+ --+ ------+| ?15-29 ?| ?Stage four ? | ? Stage four ?+ ---+ ---+ -------+| ?<15 (or dialysis) ? ?| ?Stage five ? | ? Stage five ?+ ---+ ---+ -------+ *Each stage assumes the associated GFR level has been in effect for at least three months. ?Stages 1 to 5, with or without kidney disease, indicate chronic kidney disease. Notes: Determination of stages one and two (with eGFR >59mL/min/1.73 m2) requires estimation of kidney damage for at least three months as defined by structural or functional abnormalities of the kidney, manifested by either:Pathological abnormalities or Markers of kidney damage (including abnormalities in the composition of the blood or urine or abnormalities in imaging tests). Lab Interpretation Abnormal (test code = 25777-4) [facility] CampusLIPASE2021-01-30 21:56:00 Test Item Value Reference Range Interpretation Comments LIPASE (test code = 2875017017) 115 U/L 0-220 Lab Interpretation (test code = Normal 18657-0) [facility] CampusMAGNESIUM2021-01-30 21:56:00 Test Item Value Reference Range Interpretation Comments MAGNESIUM (test code = 1082660194) 1.9 mg/dL 1.7-2.4 Lab Interpretation (test code = Normal 97731-0) [facility] WITH [id number] 21:42:00 Test Item Value Reference Range Interpretation Comments WBC (test code = See_Comment H [Automated 6690-2) message] The sy stem which generated this result transmitted reference range : 4.30 - 11.10 10*3/?L. The reference range was not used to interpret this result as normal/abnormal . RBC (test code = See_Comment L [Automated 789-8) message] The sy stem which generated this result transmitted reference range : 3.93 - 5.25 10*6/?L. The reference range was not used to interpret this result as normal/abnormal . HGB (test code = 9.9 g/dL 11.6-15 L 718-7) HCT (test code = 31.7 % 35.7-45.2 L 4544-3) MCV (test code = 95.2 fL 80.6-95.5 787-2) MCH (test code = 29.7 pg 25.9-32.8 785-6) MCHC (test code = 31.2 g/dL 31.6-35.1 L 786-4) RDW-SD (test code = 49.4 fL 39-49.9 04502-8) RDW-CV (test code = 14.2 % 12-15.5 788-0) PLT (test code = See_Comment [Automated 777-3) message] The sy stem which generated this result transmitted reference range : 166 - 358 10*3/ ?L. The reference r olamide was not used to interpret this result as normal/abnormal . MPV (test code = 10.4 fL 9.5-12.9 17740-9) NRBC/100 WBC (test See_Comment [Automat ed code = 8062903587) message] The system which generated this result transmitted reference range : 0.0 - 10.0 /100 WBCs. The refer ence range was not u sed to interpret th is result as normal/abnormal . NRBC x10^3 (test code <0.01 See_Comment [Auto mated = 4959636324) message] The s ystem which generated this result transmitted reference range : 10*3/?L. The reference range was not used to interpret this result as normal/abnormal . GRAN MAT (NEUT) % 68.9 % (test code = 770-8) IMM GRAN % (test code 0.80 % = 4783134471) LYMPH % (test code = 14.6 % 736-9) MONO % (test code = 13.1 % 5905-5) EOS % (test code = 2.2 % 713-8) BASO % (test code = 0.4 % 706-2) GRAN MAT x10^3(ANC) 7.74 10*3/uL 1.88-7.09 H (test code = 5042753624) IMM GRAN x10^3 (test 0.09 10*3/uL 0-0.06 H code = 1414921591) LYMPH x10^3 (test code 1.64 10*3/uL 1.32-3.29 = 731-0) MONO x10^3 (test code 1.47 10*3/uL 0.33-0.92 H = 742-7) EOS x10^3 (test code = 0.25 10*3/uL 0.03-0.39 711-2) BASO x10^3 (test code 0.05 10*3/uL 0.01-0.07 = 704-7) Lab Interpretation Abnormal (test code = 10572-8) [facility]) 2019-11-20 06:36:00 Test Item Value Reference Range Interpretation Comments SARS-COV2/RT-PCR (test Not Detected Not Detected, Negative code = 9428260) SARS-COV-[address] [facility] (test code = 3681213) Negative results do not preclude SARS-CoV-2 infection and should not be used as the sole basis for patient management decisions. Negative results must be combined with clinical observations, patient history, and epidemiological information. A false negative result may occur if a specimen is improperly collected, transported or handled.The limit of detection for this assay is 250 copies/mL.This SARS CoV-2 test is a rapid, real-time RT-PCR test intended for the qualitative detection of nucleic acid from SARS-CoV-2 in a nasopharyngeal swab specimen collected from individuals suspected of COVID-19 by their healthcare provider.This test has not been Food and Drug Administration (FDA) cleared or approved and has been authorized by FDA under an Emergency Use Authorization (EUA). This EUA will be effective until the declaration that circumstances exist justifying the authorization of the emergency use of in vitro diagnostic tests for detection and/or diagnosis of COVID-19 is terminated under Section 564(b)(2) of the Act or the EUA is revoked under Section 564(g) of the Act.Fact Sheet for Healthcare Pro viders:https://www.[employer]/Documents/Xpert%20Xpress%20SARS%20CoV-2/Fact%20Sh eets/302-3802%44OENB-SNX-9%20HEALTHCARE%20PROVIDERS%20FACT%20SHEET.pdfFact Sheet for Healthcare Patients:https://www.[employer]Documents/Xpert%20Xpress%20SARS%20CoV-2/Fact%20Sheets/302-3801%20SARS-COV -2%20PATIENT%20FACT%20SHEET.pdfPerforming Laboratory:[facility] [place] [address][U] XRAY KNEE 1 OR 2 VWS LEFT [id number] 2019-07-14 13:10:00Images acquired, not reported on this accession number.[facility][U] XRAY KNEE 1 OR 2 VWS LEFT [id number] 10:53:00Images acquired, not reported on this accession number.[facility]iciansSURGICAL [id number] 10:42:00 RUN DATE: 04/15/[address] [facility] - LAB PAGE 1 RUN TIME: 1042 Specimen Inquiry RUN USER: INTERFACE PATIENT: CANDACE DUPREE LOC: [id number] U #: [id number] AGE/SX: 63/F ROOM: RE04/08/19[facility] DR: eLo Bull : 53 BED: DIS: STATUS: REG REF TLOC: SPEC #: [id number] RECD: 04/07/19 STATUS: GLENNA ANGELES #: [id number] SATINDER: 04/07/190000 SUBM DR: Leo Bull MD ENTERED: 04/08/19 SP TYPE: SURG OTHR DR: ORDERED: PATHGM4, DECAL, PATH SPEC, H E STAIN TISSUES: A. BONE NOT FRACTURE - Left knee bone CLINICAL HISTORY Diagnosis/Clinical Data: Left knee osteoarthritis Operative Procedure: Left total knee arthroplasty FINAL DIAGNOSIS Left knee, Bone, total arthroplasty: Degenerative joint dis ease Electronically signed by: Seng Leung MD GROSS DESCRIPTION The laboratoryreceives, in a partially formalin-filled container labeled "left knee bone", multiple pieces of yellow-rueda firm bone and yellow- rueda fibrofatty tissue measuring 8.5 x 7.5 x 4.5 cm in aggregate. The articular surface ranges from yellow-rueda and smooth and glistening to rueda- brown and granular; there are foci of pale, rueda-pink eburnation. Sections show yellow-rueda to firm cut-surfaces with no area or softening. Picture Enlarger decalcified sections are submitted by the PA in cassette A1. 04/08/2019 10:00 AM MICROSCOPIC DESCRIPTION The histologic section includes the articularsurface. Prominent eburnation is present. 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 Underlying intratrabecular fibrosis is noted. Areas of new cartilage and new bone formation are present.Some the intratrabecular bone shows hematopoietic elements. There is no malignancy. Signed SIGNATURE ON FILE [facility] 04/15/19 1042 END OF REPORT [U] XR KNEE 1 OR 2 VWS [id number] 13:50:00 Images acquired, not reported on this accession number.[facility][U] XRAY HIPS BILATERAL MIN 2 VWS AND AP PELVIS [id number] 14:08:00Images acquired, not reported on this accession number.[facility][U] XRAY SHOULDER MIN 2 VWS RIGHT [id number] 10:43:00Images acquired, not reported on this accession number.[facility][U] XRAY SHOULDER MIN 2 VWS LEFT [id number] 10:42:00 Images acquired, not reported on this accession number.[facility][U] XRAY KNEE 1 OR 2 VWS LEFT [id number] 16:26:00Images acquired, not reported on this accession number.[facility] PhysiciansTobacco Use [id number] 15:20:00 Test Item Value Reference Range Interpretation Comments Completed (test code = Completed) DONE [facility]
[2021-11-22] MEDS ORDERED: NA CHLORIDE 0.9% 1,000 ML ONE ×2 (11:46→20:24)
[2021-11-22 12:21] LABS: Absolute Lymphocytes (CBC) 1.7 K/uL (0.7-4.9); Hematocrit 40.7 % (36.0-45.0); Lymphocytes % 12.5 % (15.3-44.8); MPV 8.5 fL (7.6-11.3); RBC Red Blood Cell Count 4.16 M/uL (3.86-4.86)
[2021-11-22 12:26] LABS: Protime INR 1.1
[2021-11-22 12:48] LABS: Potassium 4.4 mmol/L (3.5-5.1)
[2021-11-22 12:56] LABS: Urine Blood Negative (Negative); Urine Glucose Negative (Negative); Urine Protein 1+ (Negative)
[2021-11-22 13:22] LABS: Urine Bacteria <20 /HPF (<20); Urine RBC <5 /HPF (NONE SEEN)
--- NOTE | 2021-11-22 14:06 | RAD REPORT ---
EXAM DESCRIPTION: CT - CTHCSPWOC - 11/22/2021 1:37 pm CLINICAL HISTORY: fall, trauma, possible LOC COMPARISON: Head C Spine Mpr Wo Con dated 07/05/2020 TECHNIQUE: Axial 5 mm thick images of the head were obtained. Axial 2 mm thick images of the cervic al spine were obtained with sagittal and coronal reconstruction images generated and reviewed. All CT scans are performed using dose optimization technique as appropriate and may include automated exposure control or mA/KV adjustment according to patient size. FINDINGS: No intracranial hemorrhage, mass, edema or acute intracranial finding. No acute cortical l evel infarction. No cortical edema or sulcal effacement. Advanced for age chronic ischemic changes ar e seen throughout the cerebral white matter extending into the basal ganglia thalamus tissues. Modera te atrophy is present. Ventricles are in proportion to volume loss. No extra-axial fluid collections. Mastoid air cells and paranasal sinuses are clear. No globe or orbit abnormality seen. Cervical portion examination has motion degradation. Slight wedging of C4-C5 noted and believed to be chronic. No acute compression seen. No destructive bone process or fracture seen. There is degenerat maximo anterior subluxation of 2 mm of C2 on C3. All disc levels show height loss with endplate spurring . Facet joint degenerative change and uncovertebral joint hypertrophy present causing multiple level bony foraminal stenosis. Central canal detail is inherently limited. No paraspinal mass or hematoma. IMPRESSION: No hemorrhage, edema or acute intracranial finding. Patient has moderate atrophy and adv anced for age chronic ischemic change throughout the cerebral white matter, basal ganglia and thalamu s tissues. Motion degraded study showing advanced degenerative change in the cervical spine but no acute finding .
--- NOTE | 2021-11-22 14:17 | RAD REPORT ---
EXAM DESCRIPTION: CT - Abdomen Pelvis W Contrast - 11/22/2021 1:50 pm CLINICAL HISTORY: RLQ abdominal pain COMPARISON: No comparisons TECHNIQUE: Biphasic, helical CT imaging of the abdomen and pelvis was performed following 100 ml non -ionic IV contrast. No oral contrast administered. All CT scans are performed using dose optimization technique as appropriate and may include automated exposure control or mA/KV adjustment according to patient size. FINDINGS: No suspicious findings in the lung bases. The liver, spleen, and pancreas show no suspicious findings. Cholecystectomy clips are present. No ab normal biliary tree dilatation. Symmetric renal function is seen with no hydronephrosis or suspicious renal mass. No pyelonephritis o r acute parenchymal process. No bladder abnormalities. No adrenal abnormalities. A few small benign-a ppearing renal cortical cysts seen. Gastric bypass surgical changes are present with no acute finding. No dilated small bowel loops. Mobi le cecum is present positioned in the right mid abdomen. Appendix is absent by history. No suspicion for appendicitis. No acute colon finding seen. No free air, free fluid or inflammatory stranding. N o mass or bulky lymphadenopathy. Very small fat only umbilical hernia present. Disc and bone degenerative changes are present. Left hip prosthesis is in place. This creates spray a rtifact that limits pelvic floor assessment. No suspicious finding in the subcutaneous fatty tissues. IMPRESSION: Contrast enhanced CT abdomen and pelvis showing no acute or emergent finding. No abnormality seen to explain right lower quadrant pain pattern.
--- NOTE | 2021-11-22 14:39 | ER ---
Nurse's Notes [facility] Name: Guerline Castellanos Age: 66 yrs Sex: Female : 1955 Arrival Date: 11/22/2021 Time: 11:25 Bed 26 Private MD: Diagnosis: Volume depletion, unspecified;Syncope;Muscle weakness (generalized) Presentation: 11/22 11:25 Chief complaint: Patient states: pt presented to ED reporting fall and cant remember narvaez how or when. pt stated that she has been down for about 12 hours. pt stated that she has pain to her right side, unable to recall if she hit her head. pt recent dx with UTI taking antibiotics. Coronavirus screen: Vaccine status: Patient reports receiving the 2nd dose of the covid vaccine. Ebola Screen: Patient denies travel to an Ebola-affected area in the 21 days before illness onset. Initial Sepsis Screen: Does the patient meet any 2 criteria? No. Patient's initial sepsis screen is negative. Does the patient have a suspected source of infection? No. Patient's initial sepsis screen is negative. Risk Assessment: Do you want to hurt yourself or someone else? Patient reports no desire to harm self or others. Onset of symptoms was November 21, 2021. 11:25 Method Of Arrival: EMS: [facility] narvaez 11:25 Acuity: ABIODUN 3 narvaez Triage Assessment: 11:30 General: Appears in no apparent distress. Behavior is calm, cooperative. Pain: narvaez Complains of pain in right side of back Musculoskeletal: Range of motion: limited in all extremities, Reports pain in right side of back Pain is 7 out of 10 on a pain scale. Historical: - Allergies: 11:30 Bactrim; narvaez 11:30 Sulfa (Sulfonamide Antibiotics); narvaez - Home Meds: 16:34 Unable to obtain [Active]; narvaez - PMHx: 11:30 COPD; Diabetes - IDDM; Hypertension; Hyperlipidemia; narvaez - Immunization history:: Adult Immunizations up to date. - Social history:: Smoking status: Patient denies any tobacco usage or history of. - Family history:: not pertinent. - Hospitalizations: : No recent hospitalization is reported. Screenin:32 Abuse screen: Denies threats or abuse. Denies injuries from another. Nutritional narvaez screening: No deficits noted. Tuberculosis screening: No symptoms or risk factors identified. Fall Risk Assessment: 11:32 General: Appears in no apparent distress. Behavior is calm, cooperative. Pain: narvaez Complains of pain in right side of back. Vital Signs: 11:25 BP 137 / 75; Pulse 75; Resp 17; Temp 98.1(O); Pulse Ox 96% on R/A; Weight 136.08 kg; narvaez Height 5 ft. 4 in. (162.56 cm); 14:10 BP 146 / 78; Pulse 74; Resp 18; Pulse Ox 97% on R/A; narvaez 16:33 BP 135 / 53; Pulse 74; Resp 17; Pulse Ox 98% on R/A; narvaez 11:25 Body Mass Index 51.49 (136.08 kg, 162.56 cm) narvaez ED Course: 11:25 Patient arrived in ED. narvaez 11:27 Triage completed. narvaez 11:29 Dominga Thompson, DESMOND is Primary Nurse. narvaez 11:30 Arm band placed on. narvaez 11:32 Zak Holloway MD is Attending Physician. rn 11:32 No provider procedures requiring assistance completed. narvaez 11:33 Patient has correct armband on for positive identification. Bed in low position. narvaez 13:38 Head C Spine Mpr Wo Con In Process Unspecified. EDMS 13:52 Abdomen In Process Unspecified. EDMS 14:36 Jeff Holloway MD is Hospitalizing Provider. rn 15:43 XRAY Chest (1 view) In Process Unspecified. EDMS 11/23 20:30 Patient admitted, IV remains in place. ag7 Administered Medications: 11/22 12:13 Drug: NS 0.9% 1000 ml Route: IV; Rate: 1000 ml; Site: left forearm; narvaez 14:44 Drug: NS 0.9% 500 ml Route: IV; Rate: bolus; Site: left forearm; narvaez 15:24 Follow up: IV Status: Completed infusion narvaez Medication: 11:32 VIS not applicable for this client. narvaez Outcome: 14:38 Decision to Hospitalize by Provider. rn 11/23 20:30 Admitted to Med/surg accompanied by nurse, via wheelchair, room 221, with chart, Report ag7 called to Sarah LOGAN Condition: stable 20:31 Patient left the ED. ag7 Signatures: Dispatcher [employer] EDIA Holloway, Zak, MD MD rn Au-Stager, Dominga, RN RN narvaez Oscar, Liset, RN RN ag7
--- NOTE | 2021-11-22 14:39 | EDPHYS ---
Physician Documentation [facility] Name: Guerline Castellanos Age: 66 yrs Sex: Female : 1955 Arrival Date: 11/22/2021 Time: 11:25 Bed 26 Private MD: ED Physician Zak Holloway HPI: 11/22 14:15 This 66 yrs old Female presents to ER via EMS with complaints of fall, abdominal pain, rn weakness. 14:15 The patient presents with abdominal pain right lower quadrant. Onset: The rn symptoms/episode began/occurred at an unknown time. The symptoms do not radiate. Associated signs and symptoms: Pertinent negatives: nausea and vomiting, diarrhea, fever. The symptoms are described as crampy, intermittent. Modifying factors: The symptoms are alleviated by nothing, the symptoms are aggravated by. 14:20 Severity of pain: At its worst the pain was mild in the emergency department the pain rn is unchanged. It is unknown whether or not the patient has had similar symptoms in the past. Pt reports fall, at home, states unable to get up 2/2 weakness, has been on ground for 12 hours or so according to patient. Does not think hit head but reports mild neck pain. Reports right sided abd pain, but no vomiting/diarrhea. Was being treated for UTI recently, does not recall abx. . Historical: - Allergies: 11:30 Bactrim; narvaez 11:30 Sulfa (Sulfonamide Antibiotics); narvaez - Home Meds: 16:34 Unable to obtain [Active]; narvaez - PMHx: 11:30 COPD; Diabetes - IDDM; Hypertension; Hyperlipidemia; narvaez - Immunization history:: Adult Immunizations up to date. - Social history:: Smoking status: Patient denies any tobacco usage or history of. - Family history:: not pertinent. - Hospitalizations: : No recent hospitalization is reported. ROS: 14:20 Constitutional: Negative for fever, chills, and weight loss, Eyes: Negative for injury, rn pain, redness, and discharge, Neck: Negative for injury, pain, and swelling, Cardiovascular: Negative for chest pain, palpitations, and edema, Respiratory: Negative for shortness of breath, cough, wheezing, and pleuritic chest pain, Abdomen/GI: + right sided abd pain Back: Negative for injury and pain, : Negative for injury, bleeding, discharge, and swelling, MS/Extremity: Negative for injury and deformity, Skin: Negative for injury, rash, and discoloration, Neuro: Negative for headache, numbness, tingling, and seizure. Exam: 14:20 Constitutional: Overweight female, no acute distress Head/Face: Normocephalic, rn atraumatic. Eyes: Periorbital areas with no swelling, redness, or edema. ENT: very dry MM Cardiovascular: Regular rate and rhythm. No pulse deficits. Respiratory: No increased work of breathing, no retractions or nasal flaring. Abdomen/GI: soft, + right sided abd tenderness, no rebound, no masses Skin: Warm, dry MS/ Extremity: Pulses equal, no cyanosis. Neurovascular intact. Full, normal range of motion. Equal circumference. Neuro: Awake and alert, GCS 15, oriented to person, place, not time. Cranial nerves II-XII grossly intact. Motor strength 4-/5 in all extremities. Sensory grossly intact. Vital Signs: 11:25 BP 137 / 75; Pulse 75; Resp 17; Temp 98.1(O); Pulse Ox 96% on R/A; Weight 136.08 kg; narvaez Height 5 ft. 4 in. (162.56 cm); 14:10 BP 146 / 78; Pulse 74; Resp 18; Pulse Ox 97% on R/A; narvaez 16:33 BP 135 / 53; Pulse 74; Resp 17; Pulse Ox 98% on R/A; narvaez 11:25 Body Mass Index 51.49 (136.08 kg, 162.56 cm) MDM: 11:32 Patient medically screened. rn 14:33 Differential diagnosis: appendicitis, bowel obstruction, diverticulitis, non-specific rn abd pain, Peptic Ulcer Disease, Pyelonephritis, Ureterolithiasis, urinary tract infection, syncope, COVID, dehydration, volume depletion. Data reviewed: vital signs, nurses notes, lab test result(s), EKG, radiologic studies. 14:35 Counseling: I had a detailed discussion with the patient and/or guardian regarding: the rn historical points, exam findings, and any diagnostic results supporting the discharge/admit diagnosis, lab results, radiology results, the need for further work-up and treatment in the hospital. Response to treatment: the patient's symptoms have mildly improved after treatment, and as a result, I will admit patient. Admission orders: after a detailed discussion of the patient's condition and case, the admit orders are written by me. ED course: Pt still very weak, still unsure of how she ended up on floor. Possible syncope. + dehydration/volume depletion. Will admit for syncope/weakness/volume depletion.. 11/22 11:37 Order name: CBC with Diff; Complete Time: 14:07 11/22 11:37 Order name: Basic Metabolic Panel; Complete Time: 14:07 11/22 11:37 Order name: Urine Culture rn 11/22 11:37 Order name: Urine Microscopic Only; Complete Time: 14:07 11/22 11:37 Order name: Protime (+inr); Complete Time: 14:07 11/22 11:37 Order name: Ptt, Activated; Complete Time: 14:07 11/22 11:37 Order name: Blood Culture Adult (2) 11/22 12:56 Order name: Urine Dipstick-Ancillary; Complete Time: 14:07 [facility] 11/22 14:17 Order name: COVID-19 SARS RT PCR (Document "Date of Onset" if Symptomatic); Complete rn Time: 16:56 11/22 14:34 Order name: Troponin High Sensitivity; Complete Time: 16:56 11/22 14:34 Order name: BNP; Complete Time: 16:56 11/22 17:23 Order name: T4 Free [facility] 11/22 17:23 Order name: Thyroid Stimulating Hormone [facility] 11/23 03:25 Order name: CBC with Automated Diff [facility] 11/22 11:37 Order name: IV Start; Complete Time: 12:13 11/22 11:37 Order name: Urine Dipstick-Ancillary (obtain specimen); Complete Time: 15:27 11/22 11:37 Order name: CT Head C Spine 11/22 11:37 Order name: CT Abd/Pelvis - IV Contrast Only rn 11/22 11:41 Order name: Head C Spine Mpr Wo Con; Complete Time: 14:27 [facility] 11/22 11:43 Order name: Abdomen ; Complete Time: 14:27 [facility] 11/22 14:34 Order name: EKG; Complete Time: 14:35 rn 11/22 14:34 Order name: EKG - Nurse/Tech; Complete Time: 15:22 11/22 14:34 Order name: XRAY Chest (1 view); Complete Time: 16:56 rn 11/22 17:13 Order name: US EDMS 11/23 03:40 Order name: Basic Metabolic Panel [facility] 11/23 16:05 Order name: Glucose, Ancillary Testing EDMS Administered Medications: 12:13 Drug: NS 0.9% 1000 ml Route: IV; Rate: 1000 ml; Site: left forearm; narvaez 14:44 Drug: NS 0.9% 500 ml Route: IV; Rate: bolus; Site: left forearm; narvaez 15:24 Follow up: IV Status: Completed infusion narvaez Disposition Summary: 11/22/21 14:38 Hospitalization Ordered Hospitalization Status: Observation rn Provider: Jeff Holloway rn Condition: Stable rn Problem: new rn Symptoms: have improved rn Bed/Room Type: Standard rn Location: Telemetry/MedSurg (observation)(11/23/21 19:51) cg [facility](11/23/21 19:51) Diagnosis - Volume depletion, unspecified rn - Syncope rn - Muscle weakness (generalized) rn Forms: - Medication Reconciliation Form rn - SBAR form rn Signatures: Dispatcher [employer] [facility] Adriana Gray RN RN Zak Holloway MD MD rn Garcia, Cindy, RN RN Dominga Thompson RN RN narvaez Corrections: (The following items were deleted from the chart) 19:52 14:38 Telemetry/MedSurg (observation) rn 19:52 14:38 rn 11/23 19:51 11/22 19:52 [facility] ER HOLD mw cg 11/23 19:51 11/22 19:52 ERHOLD- mw cg
[2021-11-22] MEDS ORDERED: NA CHLORIDE 0.9% 500 ML ONE (14:44)
--- NOTE | 2021-11-22 15:56 | RAD REPORT ---
EXAM DESCRIPTION: RAD - Chest Single View - 11/22/2021 3:41 pm CLINICAL HISTORY: SOB COMPARISON: Portable 11/19/2019 TECHNIQUE: AP portable chest image was obtained 11/22/2021 3:41 pm . FINDINGS: Lung volumes low. No acute lung parenchymal process. Interstitial pattern matches comparis on. Heart and vasculature are normal. No measurable pleural effusion and no pneumothorax. No acute bony abnormality seen. No acute aortic findings suspected. IMPRESSION: No acute cardiopulmonary process.
[2021-11-22] MEDS ORDERED: ONDANSETRON 4 MG/2 ML VIAL IV PRN (16:18)
[2021-11-22] MEDS ORDERED: ACETAMINOPHEN 500 MG TAB PO PRN (16:18)
[2021-11-22] MEDS ORDERED: HYDROCODONE/APAP 5/325 MG TAB PO PRN (16:29)
--- NOTE | 2021-11-22 16:32 | P.HP ---
Certification for Inpatient Patient admitted to: Inpatient With expected LOS: >2 Midnights Patient will require the following post-hospital care: None Practitioner: I am a practitioner with admitting privileges, knowledge of patient current condition, hospital course, and medical plan of care. Services: Services provided to patient in accordance with Admission requirements found in Title 42 Section 412.3 of the Code of Federal Regulations Patient History Date of Service: 11/22/21 Reason for admission: Fall, Syncope History of Present Illness: Patient is a 66-year-old female with a past medical history significant for DM 2, hypertension, HLD, Paroxysmal A. fib, hypothyroidism. obesity, who presents with complaint of fall and generalized weakness. Patient is alert and oriented x1 and unable to provide any meaningful history. Patient reports that she was on the floor for about 12 hours and was unable to get up due to weakness. Patient cannot recall how she fell or if she hit her head. Patient reports right sided abdominal pain. Patient unable to quantify severity and quality of pain. No other signs or symptoms reported. Patient was brought to the hospital for medical evaluation Allergies Sulfa (Sulfonamide Antibiotics) Allergy (Verified 11/19/19 23:58) Shortness of breath sulfamethoxazole [From Bactrim] Allergy (Verified 11/19/19 23:58) Shortness of breath trimethoprim [From Bactrim] Allergy (Verified 11/19/19 23:58) Shortness of breath Home Medications: Buspirone HCl [Buspar] 30 mg PO BID 11/20/19 Clopidogrel Bisulfate [Plavix*] 75 mg PO DAILY 11/20/19 Duloxetine HCl 1 tab PO BID 11/20/19 Omeprazole 20 mg PO DAILY 11/20/19 Losartan Potassium [Cozaar*] 50 mg PO DAILY #30 tablet 11/22/19 Furosemide 20 mg PO DAILY 11/22/21 Levothyroxine Sodium [Levothyroxine] 100 mcg PO DAILY 11/22/21 Metformin HCl [Glucophage] 500 mg PO BIDWM 11/22/21 Pravastatin [Pravachol*] 20 mg PO DAILY 11/22/21 - Past Medical/Surgical History Diabetic: No -: COPD -: HTN -: Afib -: bi leg stents -: gastric bypass -: hysterectomy -: L hip and knee replacement -: R foot sx - Family History Family History: Reviewed- Non-Contributory - Social History Smoking Status: Never smoker Alcohol use: No CD- Drugs: No Caffeine use: No Place of Residence: Home Review of Systems is unable to be obtained (Patient consfused) Physical Examination - Physical Exam General: Alert, Oriented x1, Confused HEENT: PERRLA Neck: 2+ carotid pulse no bruit, JVD not distended, Without JVD or thyroid abnormality Respiratory: Clear to auscultation bilaterally Cardiovascular: Normal pulses, Regular rate/rhythm Capillary refill: <2 Seconds Gastrointestinal: Normal bowel sounds, Soft and benign Musculoskeletal: No clubbing Integumentary: No rashes, No breakdown, No tenderness/swelling Neurological: Normal affect Lymphatics: No axilla or inguinal lymphadenopathy - Studies Laboratory Data (last 24 hrs) 11/22/21 12:00: PT 12.1, INR 1.10, APTT 28.0 11/22/21 12:00: Sodium 141, Potassium 4.4, BUN 15, Creatinine 0.83, Glucose 156 H 11/22/21 12:00: WBC 13.8 H, Hgb 13.3, Hct 40.7, Plt Count 226 Assessment and Plan - Plan -- Fall. Likely secondary to syncope. We will get some orthostatic vital signs. Carotid Doppler and echocardiogram pending. Continue supportive care. --DM2. BS monitoring with sliding scale insulin. --Hypertension. Stable. Continue home medications --HLD. Continue statin. --Super obesity. BMI greater than 50. Obesity likely secondary to excess calories intake and sedentary lifestyle. Patient will counselled on weight reduction, diet and exercise therapy when fully alert. --Acute encephalopathy. Unclear Etiology. UDS pending. CT head does not indicate any acute intracranial abnormality. Continue supportive care. --GERD. Continue home medications. --History of CVA\PVD. Old CVA Noted on CT imaging. Continue aspirin and Plavix. --Leukocytosis. Blood cultures pending. Will reassess levels in a.m. --Hypothyroidism. Continue Synthroid. --CKD 2. Baseline functions unknown. Will continue to monitor renal functions --Elevated BNP. Electrocardiogram pending. Continuie Lasix --Paroxysmal atrial fibrillation. Patient not on home medication. Telemetry to monitor for any significant arrhythmia. --Abdominal pain. CT abdomen does not indicate any possible source of abdominal pain. Continue supportive care And current medication regimen --DVT prophylaxis with Lovenox subQ. Discharge Plan: Senior Living Plan to discharge in: Greater than 2 days - Advance Directives Does patient have a Living Will: No Does patient have a Durable POA for Healthcare: No - Code Status/Comfort Care Code Status Assessed: Yes Code Status: Full Code Physician Review: Patient Assessed, Agree with Above Assessment and Plan Critical Care: No
[2021-11-22 16:50] LABS: Troponin High Sensitivity 18.5 pg/mL (<58.9)
--- NOTE | 2021-11-22 17:12 | RAD REPORT ---
EXAM DESCRIPTION: - CP - 11/22/2021 4:58 pm CLINICAL HISTORY: Syncope COMPARISON: No comparisons TECHNIQUE: Real-time sonographic evaluation of bilateral carotid and vertebral systems was performed . Ricci scale and Doppler interrogation were performed with waveform tracing bilaterally. FINDINGS: Normal high resistance waveforms are noted in both external carotid arteries. The common c arotid arteries and internal carotid arteries show normal low resistance waveforms. Minimal right-sided plaquing changes are present with no measurable luminal narrowing. Calcified left -sided plaquing changes at the bulb and ICA are present but do not cause a significant degree of emily nal narrowing on visual inspection. Peak systolic and end diastolic velocity values and the ICA/CCA r atios are in the non-hemodynamically significant range. Antegrade flow seen in both vertebral arteries. Velocity values and ratios were recorded and are retained in the patient's imaging records. IMPRESSION: Calcified and noncalcified plaquing changes are present greater on the left side. On vis ual inspection no significant degree of luminal narrowing. Velocity values and ratios do not indicate significant degrees of stenosis.
[2021-11-22 17:23] LABS: Thyroid Stimulating Hormone 1.01 uIU/mL (0.360-3.740)
[2021-11-22] MEDS: DULOXETINE 30 MG CAP PO SCH ×2 (21:00)
[2021-11-22] MEDS: BUSPIRONE HCL 15 MG TABLET PO SCH (21:00)
[2021-11-22] MEDS: NA CHLORIDE 0.9% 1,000 ML IV SCH (21:00)
[2021-11-22] MEDS ORDERED: DULOXETINE 30 MG CAP PO ONE (21:22)
[2021-11-22 21:29] VITALS: O2SAT 96
[2021-11-23 03:24] LABS: Absolute Lymphocytes (CBC) 1.8 K/uL (0.7-4.9); Lymphocytes % 19.4 % (15.3-44.8); MPV 8.2 fL (7.6-11.3)
[2021-11-23 03:39] LABS: Potassium 3.6 mmol/L (3.5-5.1)
[2021-11-23] MEDS: PANTOPRAZOLE 40MG TABLET PO SCH (06:30)
[2021-11-23] MEDS ORDERED: PANTOPRAZOLE 40MG TABLET PO ONE (06:37)
[2021-11-23] MEDS ORDERED: LOSARTAN POTASSIUM 50 MG TABLET PO SCH (09:00)
[2021-11-23] MEDS ORDERED: FUROSEMIDE 20 MG TABLET PO SCH (09:00)
[2021-11-23] MEDS: ENOXAPARIN 40 MG/0.4 ML SQ SCH (09:37)
[2021-11-23] MEDS: BUSPIRONE HCL 15 MG TABLET PO SCH ×2 (09:37→22:56)
[2021-11-23] MEDS: NA CHLORIDE 0.9% 1,000 ML IV SCH ×2 (09:37→19:40)
[2021-11-23] MEDS: CLOPIDOGREL 75 MG TABLET PO SCH (09:38)
[2021-11-23] MEDS: DULOXETINE 30 MG CAP PO SCH ×2 (09:38→22:56)
[2021-11-23] MEDS: CEFTRIAXONE 1,000 MG in NA CHLORIDE 0.9% 50 ML IVPB SCH (09:38)
[2021-11-23] MEDS ORDERED: DULOXETINE 30 MG CAP PO ONE (09:39)
[2021-11-23] MEDS ORDERED: NA CHLORIDE 0.9% 50 ML ONE (09:40)
[2021-11-23] MEDS ORDERED: CLOPIDOGREL 75 MG TABLET ONE (09:40)
[2021-11-23] MEDS ORDERED: ENOXAPARIN 40 MG/0.4 ML SQ ONE (09:40)
[2021-11-23] MEDS ORDERED: CEFTRIAXONE 1000 MG/VIAL ONE (09:40)
[2021-11-23] MEDS ORDERED: NA CHLORIDE 0.9% 1,000 ML ONE (09:40)
--- NOTE | 2021-11-23 12:34 | EKG ---
Test Date: 2021-11-22 Test Time: 15:14:59 Specialty Plant Supervisor: FRANK MEASUREMENT RESULTS: Intervals: Rate: 71 NC: 154 QRSD: 120 QT: 468 QTc: 508 [place]: P: 65 NC: 154 QRS: -55 T: -48 INTERPRETIVE STATEMENTS: Normal sinus rhythm Left axis deviation Left ventricular hypertrophy with QRS widening ST & T wave abnormality, consider inferior ischemia ST & T wave abnormality, consider anterolateral ischemia Abnormal ECG Compared to ECG 11/22/2021 15:12:37 Left-axis deviation now present Left ventricular hypertrophy now present ST (T wave) deviation now present Possible ischemia now present Electronically Signed On 11-23-21 12:31:39 CDT by Osbaldo Duran
--- NOTE | 2021-11-23 12:34 | EKG ---
Test Date: 2021-11-22 Test Time: 15:12:37 Wild Life Manager: FRANK MEASUREMENT RESULTS: Intervals: Rate: 0 MD: QRSD: 0 QT: 0 QTc: 0 [place]: P: MD: QRS: 0 T: 0 INTERPRETIVE STATEMENTS: No QRS complexes found, no ECG analysis possible Compared to ECG 11/19/2019 17:27:05 Sinus rhythm no longer present Right bundle-branch block no longer present Left anterior fascicular block no longer present Bifascicular block no longer present Left ventricular hypertrophy no longer present T-wave abnormality no longer present Possible ischemia no longer present Electronically Signed On 11-23-21 12:31:40 CDT by Osbaldo Duran
--- NOTE | 2021-11-23 13:00 | ECHO ---
HEIGHT: 5 ft 4 in WEIGHT: 301 lb 9.478 oz DATE OF STUDY: 11/23/[address]: Bernard Apple 2-DIMENSIONAL: YES M.MODE: YES DOPPLER: YES COLOR FLOW: YES TDS: PORTABLE: YES DEFINITY: BUBBLE STUDY: DIAGNOSIS: SYNCOPE CARDIAC HISTORY: CATHERIZATION: NO SURGERY: NO PROSTHETIC VALVE: NO PACEMAKER: NO MEASUREMENTS (cm) DIASTOLIC (NORMALS) SYSTOLIC (NORMALS) IVSd 1.3 (0.6-1.2) LA Diam 3.0 (1.9-4.0) LVEF 63% LVIDd 4.6 (3.5-5.7) LVIDs 3.0 (2.0-3.5) %FS 34% LVPWd 1.3 (0.6-1.2) Ao Diam 2.8 (2.0-3.7) 2 DIMENSIONAL ASSESSMENT: RIGHT ATRIUM: NORMAL LEFT ATRIUM: NORMAL RIGHT VENTRICLE: NORMAL LEFT VENTRICLE: NORMAL TRICUSPID VALVE: NORMAL MITRAL VALVE: NORMAL PULMONIC VALVE: NORMAL AORTIC VALVE: SCLEROSIS PERICARDIAL EFFUSION: NONE AORTIC ROOT: NORMAL LEFT VENTRICULAR WALL MOTION: NORMAL DOPPLER/COLOR FLOW: NORMAL COMMENTS: AORTIC SCLEROSIS - NO STENOSIS. NORMAL LEFT VENTRICULAR SIZE AND FUNCTION. NO WALL MOTION ABNORMALITY. NO EFFUSION. TECHNOLOGIST: PEGGY REID
--- NOTE | 2021-11-23 17:16 | P.PN ---
Date of Service: 11/23/21 Subjective: remains confused, tired, sleeping most of morning ROS: 10 point ROS as noted above, otherwise negative; unable to fully obtain accurately Physical exam GEN: AAOx2, NAD, fatigued appearing HEENT: Normal conjunctiva, sclera anicteric CV: Regular rate and rhythm, no edema Pulm: Non-labored respirations on 4L NC ABD: Soft, nontender, nondistended Integumentary: No rashes Neuro: Normal speech, normal affect, moves all extremities, nonfocal Problem List Fall acute encephalopathy, suspect metabolic secondary to UTI UTI DM2, non-insulin dependent HTN HLD Morbid Obesity hypothyroidism Afib, paroxysmal unclear what lead to fall, patient unsure / doesn't remember mentation improving, still confused workup concerning for UTI patient recently treated for UTI, unable to give further history / what symptoms she was experiencing / if still experiencing empiric coverage for UTI f/u culture leukocytosis resolved possible syncopal episode, echo and carotids ordered. CT head negative check orthostatic vitals PT consult VTE: lovenox Code: full Dispo: 1-2 days Time Spent Managing Pts Care (In Minutes): 35
[2021-11-23] MEDS ORDERED: ATORVASTATIN 40 MG TAB PO SCH (21:00)
[2021-11-23 21:05] VITALS: BMI 51.2
[2021-11-23 23:26] LABS: Barbiturates NEGATIVE (NEGATIVE); Benzodiazepines NEGATIVE (NEGATIVE); Cocaine NEGATIVE (NEGATIVE); METHAMPHETAM NEGATIVE (NEGATIVE); Methadone NEGATIVE (NEGATIVE); Opiates NEGATIVE (NEGATIVE); Phencyclidine NEGATIVE (NEGATIVE); THC Cannibis NEGATIVE (NEGATIVE)
[2021-11-24] MEDS: NA CHLORIDE 0.9% 1,000 ML IV SCH ×2 (02:44→09:00)
[2021-11-24 04:16] LABS: Absolute Lymphocytes (CBC) 1.7 K/uL (0.7-4.9); Hematocrit 33.8 % (36.0-45.0); Lymphocytes % 21.9 % (15.3-44.8); MPV 8.4 fL (7.6-11.3); RBC Red Blood Cell Count 3.43 M/uL (3.86-4.86)
[2021-11-24 04:26] LABS: Potassium 3.6 mmol/L (3.5-5.1)
[2021-11-24 04:28] LABS: Magnesium 1.8 mg/dL (1.8-2.4); Phosphorus 2.2 mg/dL (2.5-4.9)
[2021-11-24] MEDS: PANTOPRAZOLE 40MG TABLET PO SCH (06:14)
[2021-11-24] MEDS ORDERED: MAGNESIUM SULFATE 1 gm IVPB 1 GM/100 ML BAG IV ONE (07:30)
[2021-11-24] MEDS ORDERED: POTASSIUM CL SA 10 MEQ TAB PO ONE (08:00)
[2021-11-24] MEDS ORDERED: POTASS/SODIUM PHOSPHATE 1 PKT POWD.PACK PO SCH (08:00)
[2021-11-24 08:03] VITALS: BP 148/64; TEMP 97.5
[2021-11-24] MEDS: BUSPIRONE HCL 15 MG TABLET PO SCH (09:00)
[2021-11-24] MEDS: ENOXAPARIN 40 MG/0.4 ML SQ SCH (09:00)
--- NOTE | 2021-11-24 09:01 | P.DS ---
Admission Date: 11/22/21 Discharge Date: 11/24/21 Disposition: ROUTINE DISCHARGE Discharge Condition: GOOD Reason for Admission: Fall, Syncope Procedures: Problem List Fall acute encephalopathy, suspect metabolic secondary to UTI UTI DM2, non-insulin dependent HTN HLD Morbid Obesity hypothyroidism Afib, paroxysmal Brief History of Present Illness: 66yo F, PMH: DM2, HTN, HLD, Paroxysmal Afib, hypothyroidism, obesity, who presents to ED after fall, generalized weakness, and was on her floor for ~12 hours and unable to get up due to weakness. Patient is confused, oriented to self only, unable to provide more meaningful history. She cannot recall how she fell or what happened preceding the event. Patient was noted to have leukocytosis with left shift. Hospital Course: Patient was evaluated by CT head, Echocardiogram, carotid dopplers, bloodwork, heart monitoring which were all negative. Only notable for mild leukocytosis, which resolved overnight, with empiric antibiotic treatment. She did report recent UTI ~2 weeks prior and was treated with Augmentin. Review of culture results show intermediate resistance. She reported ongoing urinary frequency. UA on admission was unfortunately not the most accurate sample and subsequent culture was negative. Results could be skewed due to patient taking antibiotics. Patient's acute metabolic encephalopathy and leukocytosis with left shift were felt to be due to partially treated UTI. Patient did appear dehydrated on admission and improved with IV hydration as well. On hospital day 2, patient still remained confused and could not give much history. She was continued on IV fluids and antibiotics. On day of discharge she had much improvement of her mentation, and was feeling better. She remained afebrile and leukocytosis resolved. She worked with physical therapy and did well without concerns. She requested discharge home. Discharged home with 5 days of cefpodoxime for UTI. Follow up with PCP within 1 week. She did report reccurrent UTIs, and has a recent referral to Urology. Vital Signs/Physical Exam: Temp Pulse Resp BP Pulse Ox 97.5 F 69 18 148/64 H 96 11/24/21 08:00 11/24/21 08:00 11/24/21 08:00 11/24/21 08:00 11/24/21 08:00 Physical exam GEN: AAOx3, NAD HEENT: Normal conjunctiva, sclera anicteric CV: Regular rate and rhythm, no edema Pulm: Non-labored respirations on room air ABD: Soft, nontender, nondistended Integumentary: No rashes Neuro: Normal speech, normal affect, moves all extremities, nonfocal Laboratory Data at Discharge: WBC 7.8 K/uL (4.3-10.9) D 11/24/21 03:44 Hgb 11.0 g/dL (12.0-15.0) L 11/24/21 03:44 Hct 33.8 % (36.0-45.0) L 11/24/21 03:44 Plt Count 182 K/uL (152-406) 11/24/21 03:44 PT 12.1 SECONDS (9.5-12.5) 11/22/21 12:00 INR 1.10 11/22/21 12:00 APTT 28.0 SECONDS (24.3-36.9) 11/22/21 12:00 Sodium 143 mmol/L (136-145) 11/24/21 03:44 Potassium 3.6 mmol/L (3.5-5.1) 11/24/21 03:44 BUN 10 mg/dL (7-18) 11/24/21 03:44 Creatinine 0.67 mg/dL (0.55-1.3) 11/24/21 03:44 Glucose 127 mg/dL (74-106) H 11/24/21 03:44 Phosphorus 2.2 mg/dL (2.5-4.9) L 11/24/21 03:44 Magnesium 1.8 mg/dL (1.8-2.4) 11/24/21 03:44 Home Medications: Buspirone HCl [Buspar] 30 mg PO BID 11/20/19 Clopidogrel Bisulfate [Plavix*] 75 mg PO DAILY 11/20/19 Duloxetine HCl 1 tab PO BID 11/20/19 Omeprazole 20 mg PO DAILY 11/20/19 Losartan Potassium [Cozaar*] 50 mg PO DAILY #30 tablet 11/22/19 Furosemide 20 mg PO DAILY 11/22/21 Levothyroxine Sodium [Levothyroxine] 100 mcg PO DAILY 11/22/21 Metformin HCl [Glucophage*] 500 mg PO BIDWM 11/22/21 Pravastatin [Pravachol*] 20 mg PO DAILY 11/22/21 Cefpodoxime Proxetil 100 mg PO BID 5 Days #10 tablet 11/24/21 New Medications: Cefpodoxime Proxetil 100 mg PO BID 5 Days #10 tablet Followup: NONE,NONE [Primary Care Provider] - Time spent managing pt's care (in minutes): 45
[2021-11-24] MEDS: CLOPIDOGREL 75 MG TABLET PO SCH (10:13)
[2021-11-24] MEDS: DULOXETINE 30 MG CAP PO SCH (10:13)
[2021-11-24] MEDS: CEFTRIAXONE 1,000 MG in NA CHLORIDE 0.9% 50 ML IVPB SCH (10:15)
== END 2021-11-24 11:35 | disposition home or self-care (01) | DRG 689 ==
LOC: ER 11:18 → ERHOLD 16:14 → 2ND 11-23 20:25
PROVIDERS: ADMIT Hospitalist; ATTEND Hospitalist
DX: N39.0 Urinary tract infection, site not specified (principal); G93.41 Metabolic encephalopathy; Z68.43 Body mass index [BMI] 50.0-59.9, adult; E11.9 Type 2 diabetes mellitus without complications; I10 Essential (primary) hypertension; I48.0 Paroxysmal atrial fibrillation; E03.9 Hypothyroidism, unspecified; E78.5 Hyperlipidemia, unspecified; E66.01 Morbid (severe) obesity due to excess calories; E86.0 Dehydration; Z96.642 Presence of left artificial hip joint; Z96.652 Presence of left artificial knee joint; Z98.84 Bariatric surgery status; Z88.2 Allergy status to sulfonamides; Z20.822 Contact with and (suspected) exposure to COVID-19
CPT/HCPCS: 36415; 70450; 71045; 72125; 74177; 80048; 80307; 81003; 81015; 82947; 83735; 83880; 84100; 84439; 84443; 84484; 85025; 85610; 85730; 87040; 87086; 87088; 93005; 93306; 93880; 96360; 97116; 97161; 99285; J1650; J3475; J7030; J7040; Q9967; U0003

== ENCOUNTER 2021-12-08 11:52 | Inpatient (IN) | payer OTHER ==
--- OUTSIDE RECORDS SUMMARY | 2021-12-08 12:11 | XMS REPORT | Continuity of Care Document ---
:1955 Author Organization [facility] t Address [address] [place] [address] Care Team Providers Name Role Phone PCP, [...] y of e heart e heart 00:00: [place] failure), failure), [facility] NYHA class NYHA class Br anch I, acute I, acute on on chronic, chronic, combined combined Obesity Obesity Disease Active Univers (BMI (BMI 1-31 ity of 30-39.9) 30-39.9) 00:00: [place] 00 Medical Branch Acute Acute Disease Active Univers diastolic diastolic 1-31 ity of congestive congestive [place] heart heart Medical failure failure Branch Snores Snores Disease Active Univers 1-31 ity of 00:00: [place] 00 Medical Branch Essential Essential Disease Active Uni vers hypertensi hypertensi 1-31 it y of on on 00:00: [place] 00 Medical Branch Type 2 Type 2 Disease Active Univers diabetes diabetes 1-31 ity of mellitus mellitus 00:00: [place] without without 00 Medical complicati complicati Br anch on, with on, with long-term long-term current current use of use of insulin insulin NERY NERY Disease Active Univers (obstructi (obstructi 08-01 it y of ve sleep ve sleep 00:00: [place] apnea) apnea) 00 Medical Branch Morbid Morbid Disease Active Univers obesity obesity 1 ity of 00:00: [place] 00 Medical Branch Leg edema Leg edema Disease Active Uni vers 1-30 ity of 00:00: [place] 00 Medical Branch History of History of [...] Quantity Comments Source Exposure to Not sure [place] of SARS-CoV-2 [place] Medical (event) Branch History SDOH 2020-08-01 2020-08-01 2 University o f Financial 00:00:00 00:00:00 [place] [facility] History SDOH Food 2020-08-01 2020-08-01 3 Univers ity of Worry 00:00:00 00:00:00 [place] [facility] History SDOH Food 2020-08-01 2020-08-01 3 Univers ity of Scarcity 00:00:00 00:00:00 [place] [facility] History SDOH 2020-08-01 2020-08-01 1 University o f Transport Med 00:00:00 00:00:00 [place] Medic al Branch History SDOH 2020-08-01 2020-08-01 1 University o f Transport Non-Med 00:00:00 [facility] [place] Tobacco use and 2020-08-01 2020-08-01 Never used Universit y of exposure 00:00:00 00:00:00 [facility] Branch Alcohol intake 2020-08-01 2020-08-01 Ex-drinker University 00:00:00 00:00:00 (finding) [facility] Sex Ass[birth year] At [birth year] Universit y of 00:00:00 00:00:00 [facility] Smoking Status Start Date Stop Date Source Former smoker 2020-08-01 00:00:00 2020-08-01 00:00:00 Universi ty of [facility] Medications Ordered Filled Start Stop Current Ordering Indication Dosage Frequency Signature Comments Components Source Medication Medication Date Date Medication? Clinician (SIG) Name Name furosemide Yes 40mg 40 mg, Unive rs (LASIX) 2-06 Slow IV ity of injection 02:00: Push, [place] 40 mg 00 Q12H, Medical First dose Branch on Sun08/06/20 at 2000, Until Discontinu ed, Routine furosemide Yes [id number] 40mg Take 1 U nivers 40 mg 2-06 tablet by ity of tablet 00:00: mouth [place] 00 daily. Medical Branch furosemide Yes [id number] 40mg Take 1 U nivers 40 mg 2-06 tablet by ity of tablet 00:00: mouth [place] 00 daily. Medical Branch furosemide Yes [id number] 40mg Take 1 U nivers 40 mg 2-06 tablet by ity of tablet 00:00: mouth [place] 00 daily. Medical Branch furosemide Yes [id number] 40mg Take 1 U nivers 40 mg 2-06 tablet by ity of tablet 00:00: mouth [place] 00 daily. Medical Branch furosemide Yes [id number] 40mg Take 1 U nivers 40 mg 2-06 tablet by ity of tablet 00:00: mouth [place] 00 daily. Medical Branch furosemide Yes [id number] 40mg Take 1 U nivers 40 mg [...] by mouth ity of (ALLERGY 23:09: daily. [place] RELIEF,DIPH 30 Medical ENHYDRAMIN, Branch ) 25 [...] Me dical mg chewable Branch tablet thyroid (RIDE ASSEMBLY SUPERVISOR 0 Yes 60mg Take 60 mg Univers THYROID) 60 2-05 by mouth ity of mg tablet 23:09: every [place] 30 morning. Medical Branch pravastatin 0 Yes 20mg Take 20 mg Univers 20 mg 2-05 by mouth ity of tablet 23:09: at [place] 30 bedtime. Medical Branch lisinopriL 0 Yes [...] Me dical mg chewable Branch tablet thyroid (RIDE ASSEMBLY SUPERVISOR Yes 60mg Take 60 mg Univers THYROID) [...] by mouth ity of tablet 23:09: weekly. [place] 30 Every Medical Sunday Branch clopidogreL Yes 75mg Take 75 mg Univers 75 mg 2-05 by mouth ity of tablet 23:09: daily. [place] 30 Medical Branch insulin Yes 35U inject [...] by mouth ity of (ALLERGY 23:09: daily. [place] RELIEF,DIPH 30 Medical ENHYDRAMIN, Branch ) 25 [...] Me dical mg chewable Branch tablet thyroid (RIDE ASSEMBLY SUPERVISOR Yes 60mg Take 60 mg Univers THYROID) 60 2-05 by mouth ity of mg tablet 23:09: every [place] 30 morning. Medical Branch pravastatin Yes 20mg Take 20 mg Univers 20 mg 2-05 by mouth ity of tablet 23:09: at [place] 30 bedtime. Medical Branch lisinopriL Yes 20mg Take 20 mg U nivers 20 mg 2-05 by mouth 2 ity of tablet 23:09: (two) [place] 30 times Medical daily. Branch alendronate Yes 70mg Take 70 mg Univers 70 mg 2-05 by mouth ity of tablet 23:09: weekly. [place] [id number] Every Medical Sunday Branch clopidogreL Yes 75mg Take 75 mg Univers 75 mg 2-05 by mouth ity of tablet 23:09: daily. [place] [address] Medical Branch insulin Yes 35U inject 35 [...] by mouth ity of (ALLERGY 23:09: daily. [place] RELIEF,DIPH 30 Medical ENHYDRAMIN, Branch ) 25 [...] Me dical mg chewable Branch tablet thyroid (RIDE ASSEMBLY SUPERVISOR Yes 60mg Take 60 mg Univers THYROID) 60 2-05 by mouth ity of mg tablet 23:09: every [place] 30 morning. Medical Branch pravastatin Yes 20mg Take 20 mg Univers 20 mg 2-05 by mouth ity of tablet 23:09: at [place] 30 bedtime. Medical Branch lisinopriL Yes 20mg Take 20 mg U nivers 20 mg 2-05 by mouth 2 ity of tablet 23:09: (two) [place] 30 times Medical daily. Branch alendronate Yes [...] by mouth ity of (ALLERGY 23:09: daily. [place] RELIEF,DIPH 30 Medical ENHYDRAMIN, [place] ) 25 mg tablet Cholecalcif Yes 2{tbl} [...] Me dical mg chewable Branch tablet thyroid (RIDE ASSEMBLY SUPERVISOR Yes 60mg Take 60 mg Univers THYROID) [...] by mouth ity of tablet 23:09: weekly. [place] 30 Every Medical Sunday Branch clopidogreL Yes [...] by mouth ity of (ALLERGY 23:09: daily. [place] RELIEF,DIPH 30 Medical ENHYDRAMIN, Branch ) 25 [...] Me dical mg chewable Branch tablet thyroid (RIDE ASSEMBLY SUPERVISOR 0 Yes 60mg Take 60 mg Univers [...] without house MD being notified. Polyethylen Yes [id number] 17g Take 1 Univers e Glycol 2-05 Packet by ity of 3350 17 00:00: mouth 2 [place] gram powder 00 (two) Medical times Branch daily. Polyethylen 2020-0 Yes [id number] 17g Take 1 Univers e Glycol 2-05 Packet by ity of 3350 17 00:00: mouth 2 [place] gram powder 00 (two) Medical times Branch daily. Polyethylen 2020-0 Yes [id number] 17g Take 1 Univers e Glycol 2-05 Packet by ity of 3350 17 00:00: mouth 2 [place] gram powder 00 (two) Medical times Branch daily. Polyethylen 2020-0 Yes [id number] 17g Take 1 Univers e Glycol 2-05 Packet by ity of 3350 17 00:00: mouth 2 [place] gram powder 00 (two) Medical times Branch daily. Polyethylen 2020- Yes [id number] 17g Take 1 Univers e Glycol 2-05 Packet by ity of 3350 17 00:00: mouth 2 [place] gram powder 00 (two) Medical times Branch daily. Polyethylen 2020- Yes [id number] 17g Take 1 Univers e Glycol 2-05 [...] 05:20: BIDPRN, [place] mg 48 Starting Medical [facility] 08/01/20 at 2320, Until Discontinu ed, Routine, Pain (scale 4-6) pravastatin Yes 20mg 20 mg, [facility] ers (PRAVACHOL) 08-02 Oral, QHS, it y of tablet 20 03:00: First dose [place] mg 00 on [facility] 08/01/20 at Branch 2100, Until Discontinu ed, Routine enoxaparin No 40mg 40 mg, [facility] ers (LOVENOX) 08-01 0203 Subcutaneo ity of injection 23:00: 16:29 [place], DAILY, [place] 40 mg 00 :54 First dose Medical on [facility] 08/01/20 at 1700, Until Discontinu ed, Routine Polyethylen Yes 17g 17 g, [facility] rs e Glycol 08-01 Oral, ity of 3350 15:00: DAILY, [place] (MIRALAX) 00 First dose Medi pooja powder 17 g on [facility] 08/01/20 at 0900, Until Discontinu ed, Routine clopidogreL Yes 75mg 75 mg, [facility] ers (PLAVIX) 08-01 Oral, ity of tablet 75 15:00: DAILY, [place] mg 00 First dose Medical on [facility] 08/01/20 at 0900, Until Discontinu ed, Routine budesonide- Yes 2{puff} 2 Puff, Univers formoteroL 08-01 Inhalation ity of (SYMBICORT) 15:00: , [place]ILY, [place] 80-4.5 00 First dose Medical mcg/actuati on [facility] on inhaler 08/01/20 at 2 Puff 0900, Until Discontinu ed, Routine insulin Yes 35U 35 Units, [facility] rs detemir 08-01 Subcutaneo ity of U-100 14:00: us, BID, [place] (LEVEMIR 00 First dose Medic al U-100 on [facility] INSULIN) 08/01/20 at injection 0800, 35 Units Until Discontinu ed, Routine Sliding Yes Subcutaneo Univ ers Scale 08-01 us, TID ity of Insulin - 14:00: MEALS+HS, Andrés as Lispro 00 First dose Medical (HumaLOG) + on [place] Branch [facility] 08/01/20 at Testing 0800, Until Discontinu ed, Routine furosemide 2020- No 40mg 40 mg, IV U nivers (LASIX) 08-01 0202 Push, BID, ity o f injection 14:00: 16:42 First dose [place] 40 mg 00 :14 (after Medical last Branch reorder) on [place] 08/01/20 at 0800, Until Discontinu ed, Routine thyroid Yes 60mg 60 mg, Univers (ARMOUR 08-01 Oral, ity of THYROID) 12:00: QAM-0600, [place] tablet 60 00 First dose Medi pooja mg on [place] Branch 08/01/20 at 0600, Until Discontinu ed, Routine sennosides Yes 8.6mg 8.6 mg, Uni vers (SENOKOT) 08-01 Oral, BID, ity of tablet 8.6 08:45: First dose [place] mg 00 on [facility] 08/01/20 at Branch 0245, Until Discontinu ed, Routine aspirin Yes 81mg 81 mg, Univers chewable 08-01 Oral, QAM ity of tablet 81 08:45: WITH [place] mg 00 BREAKFAST, Medical First dose Branch on [place] 08/01/20 at 0245, Until Discontinu ed, Routine docusate Yes 100mg 100 mg, Unive rs (COLACE) 08-01 Oral, BID, ity o f capsule 100 08:45: First dose [place] mg 00 on [facility] 08/01/20 at Branch 0245, Until Discontinu ed, Routine ALPRAZolam 2020- No .5mg Take 0.5 Un daniel (XANAX) 0.5 08-01 mg by ity of mg tablet 08:38: 00:00 mouth 4 [place] 26 :00 (four) Medical times Branch daily. ondansetron Yes 4mg 4 mg, Slow Univers (ZOFRAN 08-01 IV Push, ity of (PF)) 08:33: Q6HPRN, [place] injection 4 47 Starting Medi pooja mg [facility] 08/01/20 at 0233, Until Discontinu ed, Routine, [...] IV ity of (D50W) 08:30: Push, PRN, [place] injection 22 Starting Medica l 25 mL [facility] 08/01/20 at 0230, Until Discontinu ed, JENNIFER, [...] Completed Unive rsity of PFIZER VACCINE 00:00:00 [facility] SARS-COV-2 COVID-19 2020-10-14 Completed Unive rsity of PFIZER VACCINE 00:00:00 [facility] SARS-COV-2 COVID-19 2020-10-14 Completed Unive rsity of PFIZER VACCINE 00:00:00 [facility] SARS-COV-2 COVID-19 2020-10-14 Completed Unive rsity of PFIZER VACCINE 00:00:00 [facility] SARS-COV-2 COVID-19 2020-10-14 Completed Unive rsity of PFIZER VACCINE 00:00:00 [facility] SARS-COV-2 COVID-19 2020-09-23 Completed Unive rsity of PFIZER VACCINE 00:00:00 [facility] SARS-COV-2 COVID-19 2020-09-23 Completed Unive rsity of PFIZER VACCINE 00:00:00 [facility] SARS-COV-2 COVID-19 2020-09-23 Completed Unive rsity of PFIZER VACCINE 00:00:00 [facility] SARS-COV-2 COVID-19 2020-09-23 Completed Unive rsity of PFIZER VACCINE 00:00:00 [facility] SARS-COV-2 COVID-19 2020-09-23 Completed Unive rsity of PFIZER VACCINE 00:00:00 [facility] Vital Signs Vital Name Observation Time Observation Value Comments Source Systolic blood 2020-08-06 17:38:00 117 mm[Hg] Univer sity of pressure [facility] Diastolic blood 2020-08-06 17:38:00 70 mm[Hg] Unive rsity of pressure [facility] Heart rate 2020-08-06 17:38:00 88 /min [facility] Body temperature 2020-08-06 17:38:00 37.11 Marjorie [facility] [place] [facility] Respiratory rate 2020-08-06 17:38:00 20 /min [facility] [place] [facility] Oxygen saturation in 2020-08-06 17:38:00 94 /min [facility] Arterial blood by [facility] Pulse oximetry [place] Body weight 2020-08-06 10:45:00 115.214 kg [facility] BMI 2020-08-06 10:45:00 46.46 kg/m2 [facility] Body height 2020-08-02 05:38:00 157.5 cm [facility] Height 2018-02-06 14:07:00 64 [in_us] [place] [...] OF BENEFITS 2021-02-13 22:28:58 Doctor Unassigned, Un [facility] POCT GLUCOSE (AUTOMATED) 2020-08-06 22:06:00 Karena Degroot [facility] POCT GLUCOSE (AUTOMATED) 2020-08-06 17:36:00 Karena Degroot Uni vers[facility] POCT GLUCOSE (AUTOMATED) 2020-08-06 13:37:00 Karena Degroot Uni versity of [facility] POCT GLUCOSE (AUTOMATED) 2020-08-06 03:24:00 Karena Degroot Uni vers[facility] POCT GLUCOSE (AUTOMATED) 2020 22:44:00 Karena Degroot Uni versity of [facility] POCT GLUCOSE (AUTOMATED) 2020 17:58:00 Karena Degroot Uni [facility] POCT GLUCOSE (AUTOMATED) 2020 13:55:00 Karena Degroot versity of [facility] CBC WITH DIFF 2020 10:45:00 Karena Degroot University o f [facility] POCT GLUCOSE (AUTOMATED) 2020 02:57:00 Karena Degroot Uni vers[facility] POCT GLUCOSE (AUTOMATED) 2020-08-04 22:41:00 Kaerna Degroot [facility] POCT GLUCOSE (AUTOMATED) 2020-08-04 17:57:00 Karena Degroot Uni versity of [facility] POCT GLUCOSE (AUTOMATED) 2020-08-04 14:07:00 Karena Degroot [facility] CBC WITH DIFF 2020-08-04 09:46:00 Karena Degroot [facility] POCT GLUCOSE (AUTOMATED) 2020-08-04 02:13:00 Karena Degroot [facility] POCT GLUCOSE (AUTOMATED) 2020-08-03 23:32:00 Karena Degroot [facility] POCT GLUCOSE (AUTOMATED) 2020-08-03 17:39:00 Karena Degroot [facility] POCT GLUCOSE (AUTOMATED) 2020-08-03 13:52:00 Som Reyes [facility] COMP. METABOLIC PANEL 2020-08-03 11:11:00 Karean Degroot [facility] ([id number]) [facility] CBC WITH DIFF 2020-08-03 11:11:00 Karena Degroot [facility] N-TERMINAL PRO-BNP 2020-08-03 11:11:00 Karena Degroot [facility] POCT GLUCOSE (AUTOMATED) 2020-08-03 01:42:00 Som Reyes [facility] POCT GLUCOSE (AUTOMATED) 2020-08-02 23:38:00 Som Reyes [facility] POCT GLUCOSE (AUTOMATED) 2020-08-02 22:49:00 Som Reyes [facility] POCT GLUCOSE (AUTOMATED) 2020-08-02 17:56:00 Som Reyes [facility] ECHO ROUTINE W/DOPPLER 2020-08-02 16:03:10 Karena Degroot [facility] POCT GLUCOSE (AUTOMATED) 2020-08-02 13:41:00 Som Reyes [facility] MAGNESIUM 2020-08-02 11:02:00 Karena Degroot [facility] acute hospital COMP. METABOLIC PANEL 2020-08-02 11:02:00 Karena Degroot [facility] ([id number]) [facility] CBC WITH DIFF 2020-08-02 11:02:00 Karena Degroot [facility] acute hospital N-TERMINAL PRO-BNP 2020-08-02 11:02:00 Zane ella [facility] POCT GLUCOSE (AUTOMATED) 2020-08-02 01:47:00 Som Reyes [facility] ACUTE CARE ARTERIAL BLOOD 2020-08-02 00:27:00 eJramy Caldwell [facility] acute hospital TROPONIN I 2020-08-01 23:39:00 Zane ella [facility] acute hospital POCT GLUCOSE (AUTOMATED) 2020-08-01 22:41:00 Som Reyes [facility] POCT GLUCOSE (AUTOMATED) 2020-08-01 17:30:00 Som Reyes [facility] POCT GLUCOSE (AUTOMATED) 2020-08-01 13:45:00 Som Reyes [facility] MAGNESIUM 2020-08-01 10:29:00 Karena Degroot [facility] acute hospital VITAMIN B12, LEVEL 2020-08-01 10:29:00 Zane ella [facility] TROPONIN I 2020-08-01 10:29:00 Zane ella General acute hospital COMP. METABOLIC PANEL 2020-08-01 10:29:00 Karena Degroot [facility] ([id number]) [facility] IRON PANEL 2020-08-01 10:29:00 Karena Degroot [facility] acute hospital SEDIMENTATION RATE 2020-08-01 10:29:00 Karena Degroot [facility] CBC WITH DIFF 2020-08-01 10:29:00 Zane ella General acute hospital PROTHROMBIN TIME / INR 2020-08-01 10:29:00 Karena Degroot [facility] N-TERMINAL PRO-BNP 2020-08-01 10:29:00 Zane ella [facility] VITAMIN D, 25-OH 2020-08-01 10:29:00 Karena Degroot [facility] PROCALCITONIN 2020-08-01 10:29:00 Zane ella General acute hospital POCT GLUCOSE (AUTOMATED) 2020-08-01 03:33:00 Som Reyes [facility] PHOSPHORUS 2020-08-01 01:06:00 Zane [facility] CREATINE KINASE 2020-08-01 01:06:00 Zane [facility] URIC ACID 2020-08-01 01:06:00 Zane [facility] FERRITIN SERUM 2020-08-01 01:06:00 Zane [facility] TROPONIN I 2020-08-01 01:06:00 Som Reyes [facility] acute hospital THYROID STIMULATING 2020-08-01 01:06:00 Zane [facility] HORMONE [facility] LIPID PANEL ([id number])(TOTAL 2020-08-01 01:06:00 Karena Degroot [facility] CHOLESTEROL, [facility] Branch TRIGLYCERIDES, HDL) COVID-19 (ID NOW RAPID 2020-08-01 00:30:00 Som Reyes [facility] TESTING) Medical Branch LAB ONLY COVID 2020-08-01 00:30:00 Som Reyes [facility] HEAD WO CONTRAST 2020-08-01 00:09:57 Som Reyes [facility] XR CHEST 1 VW 2020-08-01 00:02:17 Som Reyes [facility] acute hospital URINALYSIS 2020-07-31 23:33:00 Som Reyes [facility] acute hospital HB ECG ROUTINE & RHYTHM 2020-07-31 21:34:20 Som Reyes [facility] STRIP [facility] Branch LIPASE 2020-07-31 21:32:00 Som Reyes [facility] MAGNESIUM 2020-07-31 21:32:00 Som Reyes General acute hospital TROPONIN I 2020-07-31 21:32:00 Som Reyes [place] [facility] COMP. METABOLIC PANEL 2020-07-31 21:32:00 Som Reyes [facility] ([id number]) [facility] CBC WITH DIFF 2020-07-31 21:32:00 Som Reyes [place] [facility] GLYCOSYLATED HEMOGLOBIN 2020-07-31 21:32:00 Karena Degroot [facility] (A1C) [facility] N-TERMINAL PRO-BNP 2020-07-31 21:32:00 Som Reyes [facility] EMERGENCY DEPARTMENT 2020-07-31 06:01:00 Doctor Unassigned, [facility] DOCUMENTS [facility] Post Op Promis 29 Survey 2019-04-11 00:00:00 [facility] [U] XR KNEE 1 OR 2 VWS 2018-05-15 00:00:00 [facility] BILATERAL [U] XRAY SHOULDER MIN 2 2018-01-11 00:00:00 [facility] VWS RIGHT [id number] [U] XRAY KNEE 1 OR 2 VWS 2017-09-13 00:00:00 [facility] RIGHT [id number] History of no history of [facility] surgery Encounters Start End Encounter Admission Attending Care Care Encounter Source Date/Time Date/Time Type Type Clinicians Facility Department ID 2021-07-04 2021-07-04 Outpatient ORQUIDEA GUNN [id number] Orquidea 16:30:00 16:30:00 CALVIN faustin 2021-02-13 2021-02-13 Laboratory Lab, Adc Fam Pob I [facility] 1.2. [id number] Univers 17:31:25 17:51:25 Only Carsabi [id number] [facility] [id number] Andrés as Profteio [id number] [place] [id number] Branch Office [address] 2021-02-13 2021-02-13 Outpatient R [facility] [id number] Univers 17:20:00 17:20:00 [facility] 2021-02-13 2021-02-13 Orders Doctor BASURTO [id number] Univers 00:00:00 00:00:00 Only Unassigned, OFE [id number] ity of [facility] [id number] Andrés as [id number] [facility] 009 Branch 2021-02-13 2021-02-13 Letter Doctor SB 1.2.840.114 [id number] Univers 00:00:00 00:00:00 (Out) Unassigned, OFE [id number] ity of [facility] [id number] Andrés as [id number] [facility] 044 Branch 2021-02-13 2021-02-13 Letter Doctor SB 1.2.840.114 [id number] Univers 00:00:00 00:00:00 (Out) Unassigned, OFE [id number] ity of [facility] [id number] Andrés as [id number] [facility] 044 [place] 2020-10-14 2020-10-14 Outpatient Chuy [facility] [id number] Univers 15:00:00 11:14:36 KAL [facility]y [facility] 2020-09-23 2020-09-23 Outpatient Chuy [facility] [id number] Univers 15:30:00 15:00:05 KAL ity [facility] 2020-07-31 2020-08-06 [facility] Som Reyes [facility] [id number] Univers 14:36:00 17:08:00 Encounter Karena Degroot [id number] ity of [place] [id number] [facility] [id number] [facility] 081 [place] 2020-07-31 2020-07-31 Emergency X Som REYES [facility] ERT [id number] Univers 14:36:00 14:36:00 ity of [facility] 2019-07-14 2019-07-14 [facility] [id number] [place] 13:25:00 13:25:00 tYarely MENDEZ M.D. [place] Brewer M.D. 2019-05-27 2019-05-27 [facility] [id number] [place] 10:50:00 10:50:00 t; Tamir MENDEZ - Monique Wang M.D. 2019-05-12 2019-05-12 [facility] [id number] [place] 15:05:00 15:05:00 t; Tamir MENDEZ - elizabeth Sánchez M.D. 2019-05-12 2019-05-12 [id number] [place] 13:50:00 13:50:00 t; Tamir MENDEZ Ph elizabeth Willoughby M.D. 2019-04-14 2019-04-14 [facility] [id number] [place] 14:10:00 14:10:00 t; Tamir MENDEZ - [facility] Ph Mark Anthony Willoughby M.D. 2019-04-07 2019-04-07 [facility] [id number] [place] 08:00:00 08:00:00 t; Tamir MENDEZ - elizabeth Sánchez M.D. 2019-03-13 2019-03-13 [facility] [id number] [place] 15:30:00 15:30:00 t; Tamir MENDEZ - elizabeth Sánchez M.D. 2019-01-20 2019-01-20 [facility] [id number] [place] 15:55:00 15:55:00 t; Tamir MENDEZ - Monique Wang M.D. 2018-12-11 2018-12-11 [facility] [id number] [place] 14:45:00 14:45:00 t; Tamir MENDEZ ans [...] [place] 10:50:00 10:50:00 t; Tamir MENDEZ Orthopedic Physicelanie [facility] Surgery - ans Papo MENDEZ M.D. [...] Comme nts POCT GLU (test code = 5033689588) 116 mg/dL 70-110 H Lab Interpretation (test code = 85786-3) Abnormal [facility] GLUCOSE (AUTOMATED)2020-08-06 17:45:00 Test Item Value Reference Range Interpretation Comments POCT GLU (test code = [id number]) 126 mg/dL 70-110 H Lab Interpretation (test code = Abnormal 59464-0) [facility] GLUCOSE (AUTOMATED)2020-08-06 13:52:00 Test Item Value Reference Range Interpretation Comments POCT GLU (test code = [id number]) 124 mg/dL 70-110 H Lab Interpretation (test code = Abnormal 07114-4) [facility] GLUCOSE (AUTOMATED)2020-08-06 03:31:00 Test Item Value Reference Range Interpretation Comments POCT GLU (test code = 5604925065) 106 mg/dL 70-110 Lab Interpretation (test code = Normal 84127-7) [facility] GLUCOSE (AUTOMATED)2020 22:56:00 Test Item Value Reference Range Interpretation Comments POCT GLU (test code = 1637707317) 128 mg/dL 70-110 H Lab Interpretation (test code = Abnormal 59142-2) [facility] GLUCOSE (AUTOMATED)2020 18:27:00 Test Item Value Reference Range Interpretation Comments POCT GLU (test code = 5200726251) 136 mg/dL 70-110 H Lab Interpretation (test code = Abnormal 51080-5) [facility] GLUCOSE (AUTOMATED)2020 14:14:00 Test Item Value Reference Range Interpretation Comments POCT GLU (test code = 8499878662) 142 mg/dL 70-110 H Lab Interpretation (test code = Abnormal 17359-6) [facility] WITH [id number] 12:26:00 Test Item Value Reference Range Interpretation [...] RDW-SD (test code = 47.7 fL 39-49.9 98340-4) RDW-CV (test code = 14.0 % 12-15.5 788-0) PLT (test code = See_Comment [Automated 777-3) message] The sy stem which generated this result transmitted reference range : 166 - 358 10*3/ ?L. The reference r olamide was not used to interpret this result as normal/abnormal . MPV (test code = 10.5 fL 9.5-12.9 43230-2) NRBC/100 WBC (test See_Comment [Automat ed code = 6696941020) message] The system which generated this result transmitted reference range : 0.0 - 10.0 /100 WBCs. The refer ence range was not u sed to interpret th is result as normal/abnormal . NRBC x10^3 (test code <0.01 See_Comment [Auto mated = 3531547517) message] The s ystem which generated this result transmitted reference range : 10*3/?L. The reference range was not used to interpret this result as normal/abnormal . GRAN MAT (NEUT) % 62.0 % (test code = 770-8) IMM GRAN % (test code 0.60 % = 0136432450) LYMPH % (test code = 22.5 % 736-9) MONO % (test code = 11.7 % 5905-5) EOS % (test code = 2.8 % 713-8) BASO % (test code = 0.4 % 706-2) GRAN MAT x10^3(ANC) 6.26 10*3/uL 1.88-7.09 (test code = 2245471857) IMM GRAN x10^3 (test 0.06 10*3/uL 0-0.06 code = 7646604394) LYMPH x10^3 (test code 2.27 10*3/uL 1.32-3.29 = 731-0) MONO x10^3 (test code 1.18 10*3/uL 0.33-0.92 H = 742-7) EOS x10^3 (test code = 0.28 10*3/uL 0.03-0.39 711-2) BASO x10^3 (test code 0.04 10*3/uL 0.01-0.07 = 704-7) Lab Interpretation Abnormal (test code = 01790-5) [facility] GLUCOSE (AUTOMATED)2020 03:04:00 Test Item Value Reference Range Interpretation Comments POCT GLU (test code = 9570699652) 127 mg/dL 70-110 H Lab Interpretation (test code = Abnormal 77618-5) [facility] GLUCOSE (AUTOMATED)2020-08-04 22:49:00 Test Item Value Reference Range Interpretation Comments POCT GLU (test code = 6058405888) 122 mg/dL 70-110 H Lab Interpretation (test code = Abnormal 00799-7) [facility] GLUCOSE (AUTOMATED)2020-08-04 18:00:00 Test Item Value Reference Range Interpretation Comments POCT GLU (test code = 5410890388) 131 mg/dL 70-110 H Lab Interpretation (test code = Abnormal 94462-1) [facility] GLUCOSE (AUTOMATED)2020-08-04 14:12:00 Test Item Value Reference Range Interpretation Comments POCT GLU (test code = 8903880715) 124 mg/dL 70-110 H Lab Interpretation (test code = Abnormal 42149-5) [facility] WITH [id number] 10:09:00 Test Item Value Reference Range Interpretation [...] RDW-SD (test code = 47.0 fL 39-49.9 07877-5) RDW-CV (test code = 13.8 % 12-15.5 788-0) PLT (test code = See_Comment [Automated 777-3) message] The sy stem which generated this result transmitted reference range : 166 - 358 10*3/ ?L. The reference r olamide was not used to interpret this result as normal/abnormal . MPV (test code = 10.1 fL 9.5-12.9 92104-6) NRBC/100 WBC (test See_Comment [Automat ed code = 1912641075) message] The system which generated this result transmitted reference range : 0.0 - 10.0 /100 WBCs. The refer ence range was not u sed to interpret th is result as normal/abnormal . NRBC x10^3 (test code <0.01 See_Comment [Auto mated = 2768200486) message] The s ystem which generated this result transmitted reference range : 10*3/?L. The reference range was not used to interpret this result as normal/abnormal . GRAN MAT (NEUT) % 62.1 % (test code = 770-8) IMM GRAN % (test code 0.40 % = 0655498737) LYMPH % (test code = 22.8 % 736-9) MONO % (test code = 11.8 % 5905-5) EOS % (test code = 2.4 % 713-8) BASO % (test code = 0.5 % 706-2) GRAN MAT x10^3(ANC) 6.06 10*3/uL 1.88-7.09 (test code = 3438470006) IMM GRAN x10^3 (test 0.04 10*3/uL 0-0.06 code = 8986463036) LYMPH x10^3 (test code 2.23 10*3/uL 1.32-3.29 = 731-0) MONO x10^3 (test code 1.15 10*3/uL 0.33-0.92 H = 742-7) EOS x10^3 (test code = 0.23 10*3/uL 0.03-0.39 711-2) BASO x10^3 (test code 0.05 10*3/uL 0.01-0.07 = 704-7) Lab Interpretation Abnormal (test code = 15035-9) [facility] [id number] 02:44:00COVID DMT InterpretationInterpretation/Recommendations: Molecular NAAT Tests for [...] COVID-19 testing the patient has had at [facility], including molecular NAAT testing (more commonly known as PCR testing and Rapid ID Now testing) and antibody testing. It does not take into account any testing that a patient has had outside of the [facility] medical record. [facility] LABORATORY SERVICESCOVID [id number]-[id number]-7 Rapid ID NOW (no units) ? ? Date ? Value ? 07/31/2020 ? Not Detected ? [facility]-08-04 02:21:00 Test Item Value Reference Range Interpretation Comments POCT GLU (test code = 5043990193) 128 mg/dL 70-110 H Lab Interpretation (test code = Abnormal 21056-7) [facility] GLUCOSE (AUTOMATED)2020-08-03 23:35:00 Test Item Value Reference Range Interpretation Comments POCT GLU (test code = 7646976887) 121 mg/dL 70-110 H Lab Interpretation (test code = Abnormal 74083-0) [facility] GLUCOSE (AUTOMATED)2020-08-03 17:42:00 Test Item Value Reference Range Interpretation Comments POCT GLU (test code = 8101269788) 154 mg/dL 70-110 H Lab Interpretation (test code = Abnormal 09727-7) [facility] GLUCOSE (AUTOMATED)2020-08-03 13:54:00 Test Item Value Reference Range Interpretation Comments POCT GLU (test code = 3593706184) 138 mg/dL 70-110 H Lab Interpretation (test code = Abnormal 90241-2) [facility] [id number] 13:09:00 Test Item Value Reference Range Interpretation Comments NT-proBNP (test code 197 pg/mL See_Comment H [Autom ated = 7259567959) message] The system which generated this result transmitted reference range : <=125. The reference range was not used to interpret this result as normal/abnormal . RACHEL (test code = RACHEL) Biotin has been reported to cause a negative bias, interpret results relative to patient's use of biotin. Lab Interpretation Abnormal (test code = 47676-7) [facility]OL[facility] (39182)2020-08-03 13:00:00 Test Item Value Reference Range Interpretation Comments NA (test code = 139 mmol/L 135-145 8537162907) K (test code = 3.8 mmol/L 3.5-5 6529009318) CL (test code = 96 mmol/L 98-108 L 0712614545) CO2 TOTAL (test code = 36 mmol/L 23-31 H 0305638887) AGAP (test code = 2-16 6213235336) BUN (test code = 22 mg/dL 7-23 0588685587) GLUCOSE (test code = 129 mg/dL 70-110 H 8777763917) CREATININE (test code = 0.78 mg/dL 0.5-1.04 3812371497) TOTAL BILI (test code = 0.6 mg/dL 0.1-1.6 3699059708) CALCIUM (test code = 8.9 mg/dL 8.6-10.6 2714379643) T PROTEIN (test code = 7.3 g/dL 6.3-8.2 1289410270) ALBUMIN (test code = 4.2 g/dL 3.5-5 0338016458) ALK PHOS (test code = 91 U/L 34-122 8908901892) ALTv (test code = 16 U/L 5-35 1742-6) AST(SGOT) (test code = 23 U/L 13-40 1459176489) eGFR Calculation mL/min/1.73m2 (Non-) (test code = 7868082810) eGFR Calculation mL/min/1.73m2 () (test code = 3859014604) RACHEL (test code = RACHEL) Association of [...] tests). Lab Interpretation Abnormal (test code = 16959-2) [facility] WITH [id number] 12:15:00 Test Item Value Reference Range Interpretation Comments WBC (test code = See_Comment [Automated 0909-2) message] The sy stem which generated this result transmitted reference range : 4.30 - 11.10 10*3/?L. The reference range was not used to interpret this result as normal/abnormal . RBC (test code = See_Comment L [Automated 6398) message] The sy stem which generated this [...] RDW-SD (test code = 49.4 fL 39-49.9 68608-1) RDW-CV (test code = 14.1 % 12-15.5 788-0) PLT (test code = See_Comment [Automated 777-3) message] The sy stem which generated this result transmitted reference range : 166 - 358 10*3/ ?L. The reference r olamide was not used to interpret this result as normal/abnormal . MPV (test code = 10.3 fL 9.5-12.9 75444-5) NRBC/100 WBC (test See_Comment [Automat ed code = 9727486486) message] The system which generated this result transmitted reference range : 0.0 - 10.0 /100 WBCs. The refer ence range was not u sed to interpret th is result as normal/abnormal . NRBC x10^3 (test code <0.01 See_Comment [Auto mated = 6697859517) message] The s ystem which generated this result transmitted reference range : 10*3/?L. The reference range was not used to interpret this result as normal/abnormal . GRAN MAT (NEUT) % 58.8 % (test code = 770-8) IMM GRAN % (test code 1.00 % = 0872682118) LYMPH % (test code = 25.1 % 736-9) MONO % (test code = 12.2 % 5905-5) EOS % (test code = 2.3 % 713-8) BASO % (test code = 0.6 % 706-2) GRAN MAT x10^3(ANC) 5.27 10*3/uL 1.88-7.09 (test code = 4594753412) IMM GRAN x10^3 (test 0.09 10*3/uL 0-0.06 H code = 0562761762) LYMPH x10^3 (test code 2.25 10*3/uL 1.32-3.29 = 731-0) MONO x10^3 (test code 1.09 10*3/uL 0.33-0.92 H = 742-7) EOS x10^3 (test code = 0.21 10*3/uL 0.03-0.39 711-2) BASO x10^3 (test code 0.05 10*3/uL 0.01-0.07 = 704-7) Lab Interpretation Abnormal (test code = 07200-5) [facility] GLUCOSE (AUTOMATED)2020-08-03 04:44:00 Test Item Value Reference Range Interpretation Comments POCT GLU (test code = 3936805566) 139 mg/dL 70-110 H Lab Interpretation (test code = Abnormal 54086-7) [facility] GLUCOSE (AUTOMATED)2020-08-03 02:41:00 Test Item Value Reference Range Interpretation Comments POCT GLU (test code = 3005261773) 129 mg/dL 70-110 H Lab Interpretation (test code = Abnormal 77355-3) [facility] GLUCOSE (AUTOMATED)2020-08-02 23:42:00 Test Item Value Reference Range Interpretation Comments POCT GLU (test code = 2884632430) 144 mg/dL 70-110 H Lab Interpretation (test code = Abnormal 33844-4) [facility] GLUCOSE (AUTOMATED)2020-08-02 23:11:00 Test Item Value Reference Range Interpretation Comments POCT GLU (test code = 9947763044) 173 mg/dL 70-110 H Lab Interpretation (test code = Abnormal 27170-6) [facility], [id number] 20:49:00 Test Item Value Reference Range Interpretation Comments VIT D 25OH (test code = 39 ng/mL 25-80 48015-2) RACHEL (test code = RACHEL) Deficiency: <20 ng/mLInsufficiency : 20-24 ng/mLOptimal: 25-80 ng/mL Lab Interpretation (test Normal code = 30391-6) [facility] GLUCOSE (AUTOMATED)2020-08-02 17:59:00 Test Item Value Reference Range Interpretation Comments POCT GLU (test code = 3229135567) 166 mg/dL 70-110 H Lab Interpretation (test code = Abnormal 47703-0) [facility]2020-08-02 14:02:00 Test Item Value Reference Range Interpretation Comments POCT GLU (test code = 6737461000) 142 mg/dL 70-110 H Lab Interpretation (test code = Abnormal 15601-5) [facility] WITH [id number] 13:19:00 Test Item Value Reference Range Interpretation [...] RDW-SD (test code = 49.9 fL 39-49.9 06592-6) RDW-CV (test code = 14.1 % 12-15.5 788-0) PLT (test code = See_Comment [Automated 777-3) message] The sy stem which generated this result transmitted reference range : 166 - 358 10*3/ ?L. The reference r olamide was not used to interpret this result as normal/abnormal . MPV (test code = 10.4 fL 9.5-12.9 55862-6) NRBC/100 WBC (test See_Comment [Automat ed code = 7020787721) message] The system which generated this result transmitted reference range : 0.0 - 10.0 /100 WBCs. The refer ence range was not u sed to interpret th is result as normal/abnormal . NRBC x10^3 (test code <0.01 See_Comment [Auto mated = 1907857768) message] The s [employer] which generated this result transmitted reference range : 10*3/?L. The reference range was not used to interpret this result as normal/abnormal . GRAN MAT (NEUT) % 57.2 % (test code = 770-8) IMM GRAN % (test code 0.70 % = 7764889452) LYMPH % (test code = 26.8 % 736-9) MONO % (test code = 12.1 % 5905-5) EOS % (test code = 2.5 % 713-8) BASO % (test code = 0.7 % 706-2) GRAN MAT x10^3(ANC) 4.41 10*3/uL 1.88-7.09 (test code = 4347544378) IMM GRAN x10^3 (test 0.05 10*3/uL 0-0.06 code = 9121411987) LYMPH x10^3 (test code 2.06 10*3/uL 1.32-3.29 = 731-0) MONO x10^3 (test code 0.93 10*3/uL 0.33-0.92 H = 742-7) EOS x10^3 (test code = 0.19 10*3/uL 0.03-0.39 711-2) BASO x10^3 (test code 0.05 10*3/uL 0.01-0.07 = 704-7) Lab Interpretation Abnormal (test code = 20713-1) [facility]20[facility] 12:17:00 Test Item Value Reference Range Interpretation Comments MAGNESIUM (test code = 8973630083) 1.8 mg/dL 1.7-2.4 Lab Interpretation (test code = Normal 58458-6) [facility]COM. METABOLIC PANEL (69513)2020-08-02 12:16:00 Test Item Value Reference Range Interpretation Comments NA (test code = 138 mmol/L 135-145 7501617110) K (test code = 4.0 mmol/L 3.5-5 1179519183) CL (test code = 100 mmol/L 98-108 7223635950) CO2 TOTAL (test code = 33 mmol/L 23-31 H 9947980478) AGAP (test code = 2-16 0009169959) BUN (test code = 17 mg/dL 7-23 1047841438) GLUCOSE (test code = 125 mg/dL 70-110 H 8301426219) CREATININE (test code = 0.74 mg/dL 0.5-1.04 4860676620) TOTAL BILI (test code = 0.5 mg/dL 0.1-1.3 8652310605) CALCIUM (test code = 8.7 mg/dL 8.6-10.6 5195302359) T PROTEIN (test code = 6.6 g/dL 6.3-8.2 9530400509) ALBUMIN (test code = 3.8 g/dL 3.5-5 4015601532) ALK PHOS (test code = 86 U/L 34-122 7566227752) ALTv (test code = 16 U/L 5-35 1742-6) AST(SGOT) (test code = 22 U/L 13-40 2083600831) eGFR Calculation mL/min/1.73m2 (Non-) (test code = 2536723205) eGFR Calculation mL/min/1.73m2 () (test code = 3057544816) RACHEL (test code = RACHEL) Association of [...] tests). Lab Interpretation Abnormal (test code = 09075-9) [facility] [id number] 12:14:00 Test Item Value Reference Range Interpretation Comments NT-proBNP (test code 331 pg/mL See_Comment H [Autom ated = 6626523954) message] The system which generated this result transmitted reference range : <=125. The reference range was not used to interpret this result as normal/abnormal . RACHEL (test code = RACHEL) Biotin has been reported to cause a negative bias, interpret results relative to patient's use of biotin. Lab Interpretation Abnormal (test code = 73412-4) [facility] Arterial Blood Gas.2020-08-02 00:33:00 Test Item Value Reference Range Interpretation Comments PH (test code = 2) 7.35-7.45 PCO2 (test code = See_Comment H [Automat ed message] 9884150308) The system [employer] generated this result transmitted ref erence range: 35 - 45 mmHg. The reference r olamide was not used to interpret this result as normal/abnor mal. PO2 (test code = See_Comment L [Automated message] 5785143358) The system [employer] generated this result transmitted ref erence range: 80 - 100 mmHg. The reference r olamide was not used to interpret this result as normal/abnor mal. HCO3 (test code = See_Comment H [Automate d message] 3798115226) The system [employer] generated this result transmitted ref erence range: 22 - 26 mEq/L. The reference r olamide was not used to interpret this result as normal/abnor mal. BE (test code = See_Comment H [Automated message] 6864002837) The system [employer] generated this result transmitted ref erence range: -3.0 - 3 .0 mEq/L. The refe rence range was not u sed to interpret this result as normal/abnor mal. Lab Interpretation (test Abnormal code = 20798-2) [facility] CampusTROPONIN [id number] 00:23:00 Test Item Value Reference Range Interpretation Comments TROPONIN I (test <0.012 See_Comment [Automated code = 4488062845) message] The system which generated this result [...] ? Lab Interpretation Normal (test code = 64108-9) [facility]2020-08-01 22:57:00 Test Item Value Reference Range Interpretation Comments POCT GLU (test code = 6752141293) 114 mg/dL 70-110 H Lab Interpretation (test code = Abnormal 10367-4) [facility] CampusXR CHEST 1 [id number] 21:04:31 No acute cardiopulmonary process. Preliminary Report [...] this study and agree with the abovereport.[facility] CampusVIT[facility]IN B12, [id number] 19:21:00 Test Item Value Reference Range Interpretation Comments VIT B12 (test code = 355 pg/mL 240-930 3456674393) RACHEL (test code = RACHEL) Biotin has been reported to cause a positive bias, interpret results relative to patient's use of biotin. Lab Interpretation (test Normal code = 56968-2) [facility]2020-08-01 17:48:00 Test Item Value Reference Range Interpretation Comments POCT GLU (test code = 7662786167) 110 mg/dL 70-110 Lab Interpretation (test code = Normal 45724-2) [facility] CampusPROCALCITONIN2021-01-31 17:33:00 Test Item Value Reference Range Interpretation Comments Procalcitonin (test 0.03 ng/mL <0.07 code = 7836909110) RACHEL (test code = RACHEL) INTERPRETATION OF [...] lung abscess/empyema. For further information please refer to:[email or web address] Lab Interpretation Normal (test code = 49165-9) [facility]2020-08-01 13:48:00 Test Item Value Reference Range Interpretation Comments POCT GLU (test code = 7130014263) 135 mg/dL 70-110 H Lab Interpretation (test code = Abnormal 44479-9) [facility] CampusSEDIMENTATION [id number] 12:43:00 Test Item Value Reference Range Interpretation Comments ESR (test code = See_Comment H [Automated message] 5200369751) The system [employer] generated this result transmitted ref erence range: 0 - 20 m m/HR. The reference r olamide was not used to interpret this result as normal/abnor mal. Lab Interpretation (test Abnormal code = 35584-9) [facility] CampusPROTHROMBIN TIME / [id number] 12:32:00 Test Item Value Reference Range Interpretation Comments PROTIME PATIENT (test See_Comment [Auto mated message] code = 5964-2) The system [employer] generated this result transmitted ref erence range: 12.0 - 1 4.7 Seconds. The re ference range was not u sed to interpret this result as normal/abnor mal. INR (test code = 6301-6) Nor mal INR <1.1; Warfarin Therap eutic range 2.0 to 3. 0 or 2.5 to 3.5, dep ending upon the indica tions. Lab Interpretation (test Normal code = 48637-5) [facility] MET[facility]OLIC PANEL (35280)2020-08-01 12:20:00 Test Item Value Reference Range Interpretation Comments NA (test code = 141 mmol/L 135-145 7887454172) K (test code = 4.4 mmol/L 3.5-5 9987686800) CL (test code = 101 mmol/L 98-108 0406230349) CO2 TOTAL (test code = 33 mmol/L 23-31 H 3698017971) AGAP (test code = 2-16 2528732032) BUN (test code = 21 mg/dL 7-23 1285771949) GLUCOSE (test code = 115 mg/dL 70-110 H 3245886393) CREATININE (test code = 0.83 mg/dL 0.5-1.04 1097419534) TOTAL BILI (test code = 0.5 mg/dL 0.1-1.3 3042402214) CALCIUM (test code = 9.1 mg/dL 8.6-10.6 8829074995) T PROTEIN (test code = 6.8 g/dL 6.3-8.2 7427446057) ALBUMIN (test code = 4.0 g/dL 3.5-5 8280327431) ALK PHOS (test code = 86 U/L 34-122 7030761964) ALTv (test code = 19 U/L 5-35 1742-6) AST(SGOT) (test code = 24 U/L 13-40 5862408303) eGFR Calculation mL/min/1.73m2 (Non-) (test code = 9628633650) eGFR Calculation mL/min/1.73m2 () (test code = 4878464728) RACHEL (test code = RACHEL) Association of [...] tests). Lab Interpretation Abnormal (test code = 96208-8) [facility] CampusTRESTEPHANIA [id number] 12:18:00 Test Item Value Reference Range Interpretation Comments TROPONIN I (test <0.012 See_Comment [Automated code = 2615888397) message] The system which generated this result [...] ? Lab Interpretation Normal (test code = 83203-1) [facility] CampusIRO [id number] 12:15:00 Test Item Value Reference Range Interpretation Comments IRON (test code = 8476181272) 35 ug/dL 50-160 L TIBC (test code = 9981297387) 462 ug/dL 250-410 H % FE SAT (test code = 5597116429) 8 % 20-50 L Lab Interpretation (test code = Abnormal 78216-4) [facility]N-[facility]MINAL [id number] 12:14:00 Test Item Value Reference Range Interpretation Comments NT-proBNP (test code 127 pg/mL See_Comment H [Autom ated = 5866233494) message] The system which generated this result transmitted reference range : <=125. The reference range was not used to interpret this result as normal/abnormal . RACHEL (test code = RACHEL) Biotin has been reported to cause a negative bias, interpret results relative to patient's use of biotin. Lab Interpretation Abnormal (test code = 45216-0) [facility]MAGNES[facility]UM2021-01-31 12:06:00 Test Item Value Reference Range Interpretation Comments MAGNESIUM (test code = 3953823408) 1.9 mg/dL 1.7-2.4 Lab Interpretation (test code = Normal 44382-7) [facility] WITH [id number] 11:52:00 Test Item Value Reference Range Interpretation [...] (test code = 50.2 fL 39-49.9 H 31959-0) RDW-CV (test code = 14.3 % 12-15.5 788-0) PLT (test code = See_Comment [Automated 777-3) message] The sy stem which generated this result transmitted reference range : 166 - 358 10*3/ ?L. The reference r olamide was not used to interpret this result as normal/abnormal . MPV (test code = 10.4 fL 9.5-12.9 19916-2) NRBC/100 WBC (test See_Comment [Automat ed code = 0183258822) message] The system which generated this result transmitted reference range : 0.0 - 10.0 /100 WBCs. The refer ence range was not u sed to interpret th is result as normal/abnormal . NRBC x10^3 (test code <0.01 See_Comment [Auto mated = 6097385382) message] The s ystem which generated this result transmitted reference range : 10*3/?L. The reference range was not used to interpret this result as normal/abnormal . GRAN MAT (NEUT) % 58.1 % (test code = 770-8) IMM GRAN % (test code 0.80 % = 9344858049) LYMPH % (test code = 26.5 % 736-9) MONO % (test code = 11.0 % 5905-5) EOS % (test code = 3.0 % 713-8) BASO % (test code = 0.6 % 706-2) GRAN MAT x10^3(ANC) 4.92 10*3/uL 1.88-7.09 (test code = 2751442975) IMM GRAN x10^3 (test 0.07 10*3/uL 0-0.06 H code = 0377031223) LYMPH x10^3 (test code 2.24 10*3/uL 1.32-3.29 = 731-0) MONO x10^3 (test code 0.93 10*3/uL 0.33-0.92 H = 742-7) EOS x10^3 (test code = 0.25 10*3/uL 0.03-0.39 711-2) BASO x10^3 (test code 0.05 10*3/uL 0.01-0.07 = 704-7) Lab Interpretation Abnormal (test code = 98771-6) [facility] CampusFERRITIN [id number] 09:23:00 Test Item Value Reference Range Interpretation Comments FERRITIN (test code = 8.9 ng/mL 11-264 L 2341204751) RACHEL (test code = RACHEL) Biotin has been reported to cause a negative bias, interpret results relative to patient's use of biotin. Lab Interpretation (test Abnormal code = 05798-6) [facility] CampusTHYROID STIMULATING [id number] 09:20:00 Test Item Value Reference Range Interpretation Comments TSH (test code = See_Comment [Automated message] 7463285582) The system [employer] generated this result transmitted ref erence range: 0.45 - 4 .70 mIU/L. The refe rence range was not u sed to interpret this result as normal/abnor mal. Lab Interpretation (test Normal code = 93762-7) [facility] (A1C)2020-08-01 08:54:00 Test Item Value Reference Range Interpretation Comments HGB A1C (test code = 5.9 % 4-6 4548-4) RACHEL (test code = RACHEL) %A1C (NGSP) Interpretation (ADA)4.8-5.6 ? ? Normal or (Non-Diabetic Range)5.7-6.4 ? ? Increased Risk (Pre-Diabetic)>6.5 ?Diabetes Indicated Lab Interpretation Normal (test code = 28444-0) [facility] [id number] 08:50:00 Test Item Value Reference Range Interpretation Comments URIC ACID (test code = 3041470038) 5.9 mg/dL 2.9-6 Lab Interpretation (test code = Normal 50635-6) [facility]CREAT[facility] [id number] 08:50:00 Test Item Value Reference Range Interpretation Comments CK (test code = 9845937950) 67 U/L 33-194 Lab Interpretation (test code = Normal 98109-8) [facility]OSPHORUS2021-01-31 08:50:00 Test Item Value Reference Range Interpretation Comments PHOSPHORUS (test code = 0326090198) 3.8 mg/dL 2.5-5 Lab Interpretation (test code = Normal 23346-9) [facility] CampusLIPID PANEL (76063)(TOTAL CHOLESTEROL, TRIGLYCERIDES, HDL)2020-08-01 08:48:00 Test Item Value Reference Range Interpretation Comments CHOL (test code = 148 mg/dL 120-200 4684014659) HDL (test code = 64 mg/dL >50 1307507256) HDLC RATIO (test code = See_Comment [Au tomated message] 5394944860) The system [employer] generated this result transmit terry reference range : <=4.5. The refe rence range was not u sed to interpret th is result as normal/abnormal . TRIG (test code = 91 mg/dL 30-170 3219199175) LDL CHOL (test code = 66 mg/dL See_Comment [Auto mated message] 80182-9) The system [employer] generated this result transmit terry reference range : <=160. The refe rence range was not u sed to interpret th is result as normal/abnormal . VLDL (test code = 18 mg/dL 5-60 7810488603) Lab Interpretation (test Normal code = 72618-4) [facility] GLUCOSE (AUTOMATED)2020-08-01 03:35:00 Test Item Value Reference Range Interpretation Comments POCT GLU (test code = 4311372736) 164 mg/dL 70-110 H Lab Interpretation (test code = Abnormal 50643-6) [facility]TROPONIN [id number] 02:02:00 Test Item Value Reference Range Interpretation Comments TROPONIN I (test <0.012 See_Comment [Automated code = 9748200995) message] The system which generated this result [...] ? Lab Interpretation Normal (test code = 64810-0) [facility]CT HEAD WO [id number] 00:58:08 No acute intracranial abnormality. Small right frontal scalp contusion without underlying calvarialfracture.Background ywin-ew-fqgcannn ischemic small vessel disease. Preliminary Report Dictated [...] small retentioncyst in the right sphenoid sinus. [facility], Radiant Results Inft User - 07/31/2020 [...] frontal scalp contusion without underlying calvarial fracture.Background cyyf-hi-ekthmjfa ischemic small vessel disease.Preliminary Report Dictated by Resident: Areli Delgado, Sb Torres MD., have reviewed this study and agree with theabove report.[facility]COVID-19 (ID NOW RAPID TESTING)2020-08-01 00:51:00 Test Item Value Reference Range Interpretation Comments SARS-CoV-2 Rapid ID NOW Not Detected Not Detected (test code = 98633-1) RACHEL (test code = RACHEL) ID NOW COVID-19 Assay is an isothermal nucleic acid amplification test intended for the qualitative detection of nucleic acid from SARS-CoV-2 viral RNA in nasopharyngeal ([employer]PER[employer]) specimens. It is used under Emergency Use [...] indicated. Lab Interpretation Normal (test code = 07586-7) [facility]URINALYSIS2021-01-31 00:03:00 Test Item Value Reference Range Interpretation Comments APPEARANCE (test code = Clear Clear 0238158336) COLOR (test code = Yellow Yellow 7187989326) PH (test code = 4.8-8.0 7084710865) SP GRAVITY (test code = 1.003-1.030 6530453942) GLU U QUAL (test code = Normal Normal 6953324591) BLOOD (test code = Negative Negative 9185711352) KETONES (test code = Negative Negative 7102070553) PROTEIN (test code = Negative Negative 2887-8) UROBILIN (test code = Normal Normal 2508412696) BILIRUBIN (test code = Negative Negative 1488744105) NITRITE (test code = Negative Negative 8782467802) LEUK MANUEL (test code = Negative Negative 3343514491) RBC/HPF (test code = See_Comment [Autom ated message] 2036362306) The system [employer] generated this result transmitted ref erence range: 0 - 3 HP F. The reference range was not used to int erpret this result as normal/abnormal . WBC/HPF (test code = See_Comment [Autom ated message] 7060532614) The system [employer] generated this result transmitted ref erence range: 0 - 5 HP F. The reference range was not used to int erpret this result as normal/abnormal . BACTERIA (test code = Few Negative A 8013958776) MUCOUS (test code = Slight Negative LPF A 2918974015) SQ EPITH (test code = <1 HPF 5752315376) YEAST BUD (test code = See_Comment H [Aut omated message] 8881200187) The system [employer] generated this result transmitted ref erence range: <=1 HPF. The reference range was not used to int erpret this result as normal/abnormal . HYAL CAST (test code = See_Comment H [Aut omated message] 4697484549) The system [employer] generated this result transmitted ref erence range: <=2 LPF. The reference range was not used to int erpret this result as normal/abnormal . Lab Interpretation (test Abnormal code = 27119-8) [facility] [id number] 22:08:00 Test Item Value Reference Range Interpretation Comments TROPONIN I (test <0.012 See_Comment [Automated code = 3497018750) message] The system which generated this result [...] ? Lab Interpretation Normal (test code = 03199-4) [facility] CampusN-TERMINAL [id number] 22:05:00 Test Item Value Reference Range Interpretation Comments NT-proBNP (test code 89 pg/mL See_Comment [Autom ated = 6255067963) message] The system which generated this result transmitted reference range : <=125. The reference range was not used to interpret this result as normal/abnormal . RACHEL (test code = RACHEL) Biotin has been reported to cause a negative bias, interpret results relative to patient's use of biotin. Lab Interpretation Normal (test code = 84503-5) [facility] CampusCOMP. METABOLIC PANEL (62419)2020-07-31 21:56:00 Test Item Value Reference Range Interpretation Comments NA (test code = 138 mmol/L 135-145 8922160309) K (test code = 4.0 mmol/L 3.5-5 2167947656) CL (test code = 102 mmol/L 98-108 4375714164) CO2 TOTAL (test code = 30 mmol/L 23-31 7378567807) AGAP (test code = 2-16 2504677684) BUN (test code = 24 mg/dL 7-23 H 4210663142) GLUCOSE (test code = 158 mg/dL 70-110 H 4968507001) CREATININE (test code = 0.87 mg/dL 0.5-1.04 2575654873) TOTAL BILI (test code = 0.5 mg/dL 0.1-1.9 9129215311) CALCIUM (test code = 8.9 mg/dL 8.6-10.6 7339665584) T PROTEIN (test code = 6.6 g/dL 6.3-8.2 9888220308) ALBUMIN (test code = 4.0 g/dL 3.5-5 1050882282) ALK PHOS (test code = 80 U/L 34-122 5149016890) ALTv (test code = 19 U/L 5-35 1742-6) AST(SGOT) (test code = 25 U/L 13-40 2459753022) eGFR Calculation mL/min/1.73m2 (Non-) (test code = 5593864809) eGFR Calculation mL/min/1.73m2 () (test code = 6137024706) RACHEL (test code = RACHEL) Association of [...] tests). Lab Interpretation Abnormal (test code = 47635-1) [facility]LIPASE2021-01-30 21:56:00 Test Item Value Reference Range Interpretation Comments LIPASE (test code = 4556468729) 115 U/L 0-220 Lab Interpretation (test code = Normal 47369-4) [facility] CampusMAGNESIUM2021-01-30 21:56:00 Test Item Value Reference Range Interpretation Comments MAGNESIUM (test code = 9792406536) 1.9 mg/dL 1.7-2.4 Lab Interpretation (test code = Normal 28128-2) [facility] WITH [id number] 21:42:00 Test Item Value Reference Range Interpretation [...] RDW-SD (test code = 49.4 fL 39-49.9 46195-0) RDW-CV (test code = 14.2 % 12-15.5 788-0) PLT (test code = See_Comment [Automated 777-3) message] The sy stem which generated this result transmitted reference range : 166 - 358 10*3/ ?L. The reference r olamide was not used to interpret this result as normal/abnormal . MPV (test code = 10.4 fL 9.5-12.9 52513-8) NRBC/100 WBC (test See_Comment [Automat ed code = 5463025586) message] The system which generated this result transmitted reference range : 0.0 - 10.0 /100 WBCs. The refer ence range was not u sed to interpret th is result as normal/abnormal . NRBC x10^3 (test code <0.01 See_Comment [Auto mated = 4523046933) message] The s ystem which generated this result transmitted reference range : 10*3/?L. The reference range was not used to interpret this result as normal/abnormal . GRAN MAT (NEUT) % 68.9 % (test code = 770-8) IMM GRAN % (test code 0.80 % = 9712935081) LYMPH % (test code = 14.6 % 736-9) MONO % (test code = 13.1 % 5905-5) EOS % (test code = 2.2 % 713-8) BASO % (test code = 0.4 % 706-2) GRAN MAT x10^3(ANC) 7.74 10*3/uL 1.88-7.09 H (test code = 2569486036) IMM GRAN x10^3 (test 0.09 10*3/uL 0-0.06 H code = 4912181097) LYMPH x10^3 (test code 1.64 10*3/uL 1.32-3.29 = 731-0) MONO x10^3 (test code 1.47 10*3/uL 0.33-0.92 H = 742-7) EOS x10^3 (test code = 0.25 10*3/uL 0.03-0.39 711-2) BASO x10^3 (test code 0.05 10*3/uL 0.01-0.07 = 704-7) Lab Interpretation Abnormal (test code = 54032-2) [facility]ARS-COV2/RT-PCR ([facility]) 2019-11-20 06:36:00 Test Item Value Reference Range Interpretation Comments SARS-COV2/RT-PCR (test Not Detected Not Detected, Negative code = 5513086) SARS-COV-2 PERFORMING LAB [facility] (test code = 8358987) Negative results do not preclude SARS-CoV-2 infection [...] of the Act.Fact Sheet for Healthcare Pro viders:https://www.[employer]/Documents/Xpert%20Xpress%20SARS%20CoV-2/Fact%20Sh eets/302-3802%08FHKG-ZAQ-4%20HEALTHCARE%20PROVIDERS%20FACT%20SHEET.pdfFact Sheet for Healthcare Patients:https://www.dateIITians/Documents/Xpert%20Xpress%20SARS%20CoV-2/Fact%20Sheets/302-3801%20SARS-COV -2%20PATIENT%20FACT%20SHEET.pdfPerforming Laboratory:[facility] [place] [address][U] XRAY KNEE 1 OR 2 VWS LEFT [id number] 2019-07-14 13:10:00Images acquired, not reported on this accession number.[facility][U] XRAY KNEE 1 OR 2 VWS LEFT [id number] 10:53:00Images acquired, not reported on this accession number.[facility]iciansSURGICAL [id number] 10:42:00 RUN DATE: 04/15/19 [facility] - LAB PAGE 1 RUN TIME: 1042 Specimen Inquiry RUN USER: INTERFACE PATIENT: CANDACE DUPREE LOC: ZN.MHSHKNG U #: [id number] AGE/SX: 63/F ROOM: RE04/08/19[facility] DR: Leo Bull : 53 BED: DIS: STATUS: REG REF TLOC: SPEC #: [id number] RECD: 04/07/19 STATUS: GLENNA ANGELES #: [id number] SATINDER: 04/07/190000 SUBM DR: Leo Bull MD [...] firm cut-surfaces with no area or softening. Utilization Coordinator decalcified sections are submitted by the PA in cassette A1. 04/08/2019 10:00 AM MICROSCOPIC DESCRIPTION The histologic section includes the articularsurface. Prominent eburnation is present. 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 Underlying intratrabecular fibrosis is noted. Areas of new cartilage and new bone formation are present.Some the intratrabecular bone shows hematopoietic elements. There is no malignancy. Signed SIGNATURE ON FILE [facility] 04/15/19 1042 END OF REPORT [U] XR KNEE 1 OR 2 VWS [id number] 13:50:00 Images acquired, not reported on this accession number.[facility][U] XRAY HIPS BILATERAL MIN 2 VWS AND AP PELVIS [id number] 14:08:00Images acquired, not reported on this accession number.[facility][U] XRAY SHOULDER MIN 2 VWS RIGHT [id number] 10:43:00Images acquired, not reported on this accession number.[facility][U] XRAY SHOULDER MIN 2 VWS LEFT [id number] 10:42:00 Images acquired, not reported on this accession number.[facility][U] XRAY KNEE 1 OR 2 VWS LEFT [id number] 16:26:00Images acquired, not reported on this accession number.[facility] PhysiciansTobacco Use [id number] 15:20:00 Test Item Value Reference Range Interpretation Comments Completed (test code = Completed) DONE [facility]
--- NOTE | 2021-12-08 12:58 | RAD REPORT ---
EXAM DESCRIPTION: CT - Head C Spine Cap Manuel Con - 12/08/2021 12:41 pm CLINICAL HISTORY: Head and neck injury with chest and abdominal pain status post fall TECHNIQUE: Computed axial tomography of head, neck, chest, abdomen and pelvis obtained. IV and oral contrast not requested. Coronal and sagittal reconstruction performed. All CT scans are performed using dose optimization technique as appropriate and may include automated exposure control or mA/KV adjustment according to patient size. COMPARISON: October 2021 FINDINGS: An intracranial bleed is not seen. Moderate low-density areas within periventricular, deep and subcor tical white matter presumably ischemic changes secondary to small vessel disease. The ventricles are normal in caliber. An extra-axial fluid collection is not noted. . Fluid within the sinuses/mastoids is not seen. A cervical fracture is not seen. No dislocation is noted. Mild chronic subluxation anteriorly C2 on C 3. Moderate diffuse cervical spondylosis. The evaluation of mediastinum, abril, vessels, solid organs and bowel are limited secondary to the lac k of contrast administration. A mediastinal hematoma is not noted. A pleural effusion is not seen. A lung contusion is not present. The liver,spleen, pancreas, adrenals,kidneys and bladder do not demonstrate a traumatic injury Left hip arthroplasty. Artifact from the prosthesis limits adjacent surrounding detail. Filter within the IVC. Post surgical changes involve the stomach. Small umbilical hernia IMPRESSION: No acute intracranial abnormality is seen. A cervical fracture is not visualized. If the patient continues have symptoms to suggest intracrania l/spinal cord pathology MRI be recommended No traumatic abnormality involving the chest/abdomen/pelvis.
--- NOTE | 2021-12-08 13:42 | RAD REPORT ---
EXAM DESCRIPTION: USExtrem Venous W Compress Bil12/08/2021 1:16 pm CLINICAL HISTORY: Leg pain COMPARISON: none FINDINGS: Examination is somewhat limited secondary to body habitus and the patient being in pain. The common femoral, superficial femoral, popliteal and posterior tibial veins bilaterally are fani sible and demonstrate augmentation. Doppler demonstrates good flow. 2 centimeter left Eugene's cyst Grayscale, color and spectral analysis performed on all vessels IMPRESSION: No evidence of deep venous thrombosis involving either lower extremity. 2 centimeter left Eugene's cyst
--- NOTE | 2021-12-08 14:00 | RAD REPORT ---
EXAM DESCRIPTION: Rey Single View12/08/2021 1:25 pm CLINICAL HISTORY: Chest pain COMPARISON: October 2021 FINDINGS: The lungs appear clear of acute infiltrate. The heart is mildly enlarged IMPRESSION: No acute abnormalities displayed
[2021-12-08 14:05] LABS: Absolute Lymphocytes (CBC) 1.9 K/uL (0.7-4.9); Hematocrit 42.1 % (36.0-45.0); MPV 9.3 fL (7.6-11.3); RBC Red Blood Cell Count 4.27 M/uL (3.86-4.86)
[2021-12-08 14:27] LABS: Urine Blood Negative (Negative); Urine Glucose Negative (Negative); Urine Protein 1+ (Negative); Urine Specific Gravity 1.025 (1.005-1.030); Urine pH 6.5 (5.0-7.0)
[2021-12-08 14:34] LABS: Protime INR 1.04
[2021-12-08 14:45] LABS: Albumin 3.6 g/dL (3.4-5.0); Bilirubin Direct 0.1 mg/dL (0-0.2); Bilirubin Total 0.5 mg/dL (0.2-1.0); Potassium 4.4 mmol/L (3.5-5.1); Protein, Total 7.7 g/dL (6.4-8.2); Troponin High Sensitivity 9.2 pg/mL (<58.9)
[2021-12-08 15:09] LABS: Urine Bacteria >50 /HPF (<20); Urine RBC NONE SEEN /HPF (NONE SEEN)
[2021-12-08] MEDS ORDERED: CEFTRIAXONE 2000 MG/VIAL ONE (15:38)
[2021-12-08] MEDS ORDERED: NA CHLORIDE 0.9% 1,000 ML ONE ×2 (15:38→20:40)
--- NOTE | 2021-12-08 15:54 | ER ---
Nurse's Notes [facility] Name: Guerline Castellanos Age: 66 yrs Sex: Female : 1955 Arrival Date: 12/08/2021 Time: 11:55 Bed 17 Private MD: Diagnosis: UTI/ Urinary tract infection, site not specified Presentation: 12/08 11:55 Chief complaint: EMS states: pt lives alone at [facility], fell last night c/o pain tw2 in her buttocks. she has been having increased falls. she says she is sitting when she falls. today she came d/t pain in her buttocks area and on the back of head. denies lloc, no laceration or hematoma noted. Coronavirus screen: At this time, the client does not indicate any symptoms associated with coronavirus-19. Ebola Screen: Patient denies travel to an Ebola-affected area in the 21 days before illness onset. Initial Sepsis Screen: Does the patient meet any 2 criteria? No. Patient's initial sepsis screen is negative. Does the patient have a suspected source of infection? No. Patient's initial sepsis screen is negative. Risk Assessment: Do you want to hurt yourself or someone else? Patient reports no desire to harm self or others. Onset of symptoms was December 08, 2021. 11:55 Method Of Arrival: EMS: [facility] tw2 11:55 Acuity: ABIODUN 3 tw2 Triage Assessment: 11:59 General: Appears in no apparent distress. obese, Behavior is calm, cooperative, tw2 appropriate for age. Pain: Complains of pain in scalp and buttocks. Neuro: Level of Consciousness is awake, alert, obeys commands, Oriented to person, place, time, situation. Respiratory: Airway is patent Respiratory effort is even, unlabored, Respiratory pattern is regular, symmetrical. Derm: Skin is intact, is healthy with good turgor. Historical: - Allergies: 11:59 Bactrim; tw2 11:59 Sulfa (Sulfonamide Antibiotics); tw2 - PMHx: 11:59 COPD; Diabetes - IDDM; Hyperlipidemia; Hypertension; tw2 - Immunization history:: Adult Immunizations. - Social history:: Smoking status: . Screenin:00 Abuse screen: Denies threats or abuse. Nutritional screening: No deficits noted. tw2 Tuberculosis screening: No symptoms or risk factors identified. Fall Risk Fall in past 12 months (25 points). Secondary diagnosis (15 points) impaired mobility. Assessment: 12:15 General: Appears in no apparent distress. Pain: Complains of pain in scalp and narvaez buttocks. Musculoskeletal: Reports weakness in generlized weakness Pain is 6 out of 10 on a pain scale. Vital Signs: 11:55 BP 135 / 89; Pulse 84; Resp 17; Temp 99(O); Pulse Ox 95% on R/A; Weight 136.08 kg (R); tw2 Height 5 ft. 4 in. (162.56 cm); 15:00 BP 148 / 179; Pulse 77; Resp 18; Pulse Ox 95% on R/A; narvaez 19:32 Pulse 77; Resp 18; Pulse Ox 96% on R/A; sm5 11:55 Body Mass Index 51.49 (136.08 kg, 162.56 cm) tw2 ED Course: 11:55 Patient arrived in ED. eb 11:55 Bed in low position. Call light in reach. Side rails up X2. Pulse ox on. NIBP on. tw2 11:57 Triage completed. tw2 12:00 Arm band placed on. tw2 12:05 Dominga Thompson, DESMOND is Primary Nurse. narvaez 12:05 Heath Shi PA is PHCP. cp 12:05 Aneesh Moreno MD is Attending Physician. cp 12:18 No provider procedures requiring assistance completed. narvaez 12:43 CT Traumagram (Head C Spine CAP wo con) In Process Unspecified. EDMS 13:02 US Extremity Venous W Compression Jaspreet In Process Unspecified. EDMS 13:27 XRAY Chest (1 view) In Process Unspecified. EDMS 14:05 Lab(s) recollected, by me, sent to lab. Missed attempt(s): 20 gauge in right dh3 antecubital area. Bleeding controlled, band aid applied, catheter tip intact. 14:45 Inserted saline lock: 20 gauge in left forearm, using aseptic technique. 3 15:53 Jeff Holloway MD is Hospitalizing Provider. cp Administered Medications: 15:55 Drug: Rocephin - (cefTRIAXone) 2 grams Route: IVPB; Infused Over: 30 mins; Site: left narvaez forearm; 18:52 Follow up: IV Status: Completed infusion narvaez 15:55 Drug: NS 0.9% 500 ml Route: IV; Rate: 125 ml/hr; Site: right antecubital; narvaez 18:52 Follow up: IV Status: Completed infusion narvaez Medication: 12:15 VIS not applicable for this client. narvaez Outcome: 15:53 Decision to Hospitalize by Provider. mckenzie 12/09 18:04 Patient left the ED. jd3 Signatures: Dispatcher [employer] EDMS Heath Shi PA PA cp Wise, Tara RN RN 2 Alexa Khan [facility] Theron Whitaker RN RN jd3 Sagrario Rodriguez Sarah, RN RN sm5 Dominga Thompson RN RN narvaez
--- NOTE | 2021-12-08 15:54 | EDPHYS ---
Physician Documentation [facility] Name: Guerline Castellanos Age: 66 yrs Sex: Female : 1955 Arrival Date: 12/08/2021 Time: 11:55 Bed 17 Private MD: ED Physician Aneesh Moreno HPI: 12/08 12:25 This 66 yrs old Female presents to ER via EMS with complaints of Fall. cp 12:25 Details of fall: The patient fell. Onset: The symptoms/episode began/occurred today. cp Associated injuries: The patient sustained no obvious injury. 12:25 The patient has experienced similar episodes in the past, multiple times. cp 12:25 Unable to obtain HPI due to altered mental status. cp Historical: - Allergies: 11:59 Bactrim; tw2 11:59 Sulfa (Sulfonamide Antibiotics); tw2 - PMHx: 11:59 COPD; Diabetes - IDDM; Hyperlipidemia; Hypertension; tw2 - Immunization history:: Adult Immunizations. - Social history:: Smoking status: . ROS: 12:30 Constitutional: Negative for body aches, chills, fever, poor PO intake. cp 12:30 Neck: Negative for pain with movement, pain at rest, stiffness. cp 12:30 Cardiovascular: Negative for chest pain. 12:30 Respiratory: Negative for cough, shortness of breath, wheezing. 12:30 Abdomen/GI: Negative for abdominal pain, vomiting, diarrhea, constipation. 12:30 MS/extremity: Negative for injury or acute deformity, decreased range of motion. 12:30 Neuro: Positive for altered mental status. 12:30 All other systems are negative. Exam: 12:35 Constitutional: The patient appears in no acute distress, alert, awake, cp non-diaphoretic, non-toxic, well developed, well nourished, obese. 12:35 Head/Face: Normocephalic, atraumatic. cp 12:35 Eyes: Periorbital structures: appear normal, Pupils: equal, round, and reactive to light and accomodation, Extraocular movements: intact throughout, Conjunctiva: normal, no exudate, no injection, Sclera: no appreciated abnormality, Lids and lashes: appear normal, bilaterally. 12:35 ENT: External ear(s): are unremarkable, Nose: is normal, Mouth: Lips: moist, Oral mucosa: moist, Posterior pharynx: Airway: no evidence of obstruction, patent. 12:35 Neck: C-spine: vertebral tenderness, that is mild, appreciated at C6 and C7, crepitus, is not appreciated, ROM/movement: is normal, is supple, no range of motions limitations, no meningismus, no nuchal rigidity. 12:35 Chest/axilla: Inspection: normal, Palpation: is normal, no crepitus, no tenderness. 12:35 Cardiovascular: Rate: normal, Rhythm: regular, Edema: ankle edema, that is moderate, JVD: is not appreciated. 12:35 Respiratory: the patient does not display signs of respiratory distress, Respirations: normal, no use of accessory muscles, no retractions, labored breathing, is not present, Breath sounds: are clear throughout, no decreased breath sounds, no stridor, no wheezing. 12:35 Abdomen/GI: Inspection: obese Bowel sounds: active, all quadrants, Palpation: abdomen is soft and non-tender, in all quadrants. 12:35 Back: pain, that is mild, of the low back area, ROM is normal. 12:35 Musculoskeletal/extremity: Extremities: grossly normal except: noted in the right hip and left hip: pain, tenderness, There is no evidence of decreased ROM, deformity. 12:35 Skin: cellulitis, is not appreciated, no rash present. 12:35 Neuro: Orientation: to person, situation, Not oriented to place, time, Mentation: able to follow commands, Motor: moves all fours, strength is normal, Sensation: is normal. 13:25 ECG was reviewed by the Attending Physician. cp Vital Signs: 11:55 BP 135 / 89; Pulse 84; Resp 17; Temp 99(O); Pulse Ox 95% on R/A; Weight 136.08 kg (R); tw2 Height 5 ft. 4 in. (162.56 cm); 15:00 BP 148 / 179; Pulse 77; Resp 18; Pulse Ox 95% on R/A; narvaez 19:32 Pulse 77; Resp 18; Pulse Ox 96% on R/A; sm5 11:55 Body Mass Index 51.49 (136.08 kg, 162.56 cm) tw2 MDM: 12:09 Patient medically screened. cp 13:00 Differential diagnosis: closed head injury, contusion, fracture, multiple trauma. cp 15:15 Data reviewed: vital signs, nurses notes, lab test result(s), EKG, radiologic studies, cp CT scan. 15:15 Test interpretation: by ED physician or midlevel provider: ECG. Response to treatment: the patient's symptoms have mildly improved after treatment. 15:50 Physician consultation: Jeff Holloway MD was called at 15:50, was contacted at 15:50, cp regarding admission, to the medical/surgical unit. patient's condition. 12/08 12:20 Order name: Basic Metabolic Panel; Complete Time: 15:12 12/08 12:20 Order name: CBC with Diff 12/08 14:43 Interpretation: Normal except: WBC 11.5; NEUT A 8.1. 12/08 12:20 Order name: LFT's; Complete Time: 15:12 12/08 12:20 Order name: Magnesium; Complete Time: 15:12 12/08 12:20 Order name: NT PRO-BNP; Complete Time: 15:12 12/08 12:20 Order name: PT-INR; Complete Time: 14:43 12/08 12:20 Order name: Troponin HS; Complete Time: 15:12 12/08 12:20 Order name: Urine Microscopic Only; Complete Time: 15:12 12/08 12:20 Order name: Lactate; Complete Time: 14:43 12/08 12:20 Order name: CK; Complete Time: 15:12 12/08 14:28 Order name: Urine Dipstick-Ancillary; Complete Time: 14:43 [facility] 12/08 14:43 Interpretation: Normal except: UKET Trace; UPROT 1+; U NIT Positive; UESTR 1+. 12/08 15:12 Order name: Urine Culture EDAZ 12/08 15:25 Order name: SARS-COV-2 RT PCR (Document "Date of Onset" if Symptomatic) 12/08 20:55 Order name: CBC Smear Scan EDAZ 12/08 12:20 Order name: XRAY Chest (1 view); Complete Time: 14:03 12/08 14:03 Interpretation: Report review. 12/08 12:20 Order name: EKG; Complete Time: 12:20 12/08 12:20 Order name: Cardiac monitoring; Complete Time: 14:35 12/08 12:20 Order name: EKG - Nurse/Tech; Complete Time: 14:35 cp 12/08 12:20 Order name: IV Saline Lock; Complete Time: 14:35 12/08 12:20 Order name: Labs collected and sent; Complete Time: 14:49 cp 12/08 12:20 Order name: CT Traumagram (Head C Spine CAP wo con); Complete Time: 13:01 12/08 13:02 Interpretation: Report reviewed. 12/08 12:20 Order name: US Extremity Venous W Compression Jaspreet; Complete Time: 14:03 cp 12/08 14:03 Interpretation: Report reviewed. 12/09 04:34 Order name: CBC with Automated Diff EDMS 12/09 04:46 Order name: Comprehensive Metabolic Panel EDAZ 12/09 04:46 Order name: Magnesium EDMS 12/09 14:21 Order name: Blood Culture EDAZ 12/09 14:21 Order name: Gram Stain--Aerobic Bottle EDMS 12/09 14:22 Order name: Gram Stain--Aerobic Bottle EDAZ 12/08 12:20 Order name: O2 Per Protocol; Complete Time: 14:35 12/08 12:20 Order name: O2 Sat Monitoring; Complete Time: 14:35 12/08 12:20 Order name: Urine Dipstick-Ancillary (obtain specimen); Complete Time: 14:35 12/08 14:10 Order name: Labs - recollect needed: recollect all the blood; Complete Time: 14:47 eb EC:25 Rate is 71 beats/min. Rhythm is regular. CA interval is normal. QRS interval is cp prolonged at 122 msec. QT interval is normal. Interpreted by me. Reviewed by me. Administered Medications: 15:55 Drug: Rocephin - (cefTRIAXone) 2 grams Route: IVPB; Infused Over: 30 mins; Site: left narvaez forearm; 18:52 Follow up: IV Status: Completed infusion 15:55 Drug: NS 0.9% 500 ml Route: IV; Rate: 125 ml/hr; Site: right antecubital; narvaez 18:52 Follow up: IV Status: Completed infusion Disposition: 17:15 Attestation: The patient's history, exam findings, diagnostics, and a summary of any [facility] interventions or procedures was reviewed in detail with Heath HARTLEY. Disposition Summary: 12/08/21 15:53 Hospitalization Ordered Hospitalization Status: Inpatient Admission cp Provider: Jeff Holloway cp Condition: Stable cp Problem: new cp Symptoms: have improved cp Bed/Room Type: Standard cp Location: Telemetry/MedSurg (Inpatient)(12/09/21 15:18) eb Room Assignment: 212(12/09/21 15:18) eb Diagnosis - UTI/ Urinary tract infection, site not specified cp Forms: - Medication Reconciliation Form cp - SBAR form cp Signatures: Dispatcher [employer] EDMS Heath Shi PA PA cp Sia Donald, RN RN tw2 Sagrario Rodriguez Heather RN RN narvaez Aneesh Moreno MD MD [id number] Corrections: (The following items were deleted from the chart) 14:35 12:20 Chan ordered. cp narvaez 15:42 15:39 This 66 yrs old Female presents to ER via EMS with complaints of Fall. cp cp 15:58 15:53 Telemetry/MedSurg (Inpatient) cp eb 15:58 15:53 cp eb 15:58 15:58 eb eb 12/09 14:27 12/08 15:58 [facility] ER HOLD eb eb 12/09 14:27 12/08 15:58 ERHOLD- eb eb 12/09 14:27 14:27 Telemetry/MedSurg (Inpatient) eb eb 14:27 14:27 407 eb eb 15:18 14:27 [facility] ER HOLD eb eb 15:18 14:27 ERHOLD- eb eb
[2021-12-08] MEDS ORDERED: ACETAMINOPHEN 500 MG TAB PO PRN (16:36)
[2021-12-08] MEDS ORDERED: ONDANSETRON 4 MG/2 ML VIAL IV PRN (16:36)
--- NOTE | 2021-12-08 16:45 | P.HP ---
Certification for Inpatient Patient admitted to: Inpatient With expected LOS: >2 Midnights Practitioner: I am a practitioner with admitting privileges, knowledge of patient current condition, hospital course, and medical plan of care. Services: Services provided to patient in accordance with Admission requirements found in Title 42 Section 412.3 of the Code of Federal Regulations Patient History Date of Service: 12/08/21 History of Present Illness: 66yo F, PMH: DM2, HTN, HLD, Pafib, hypothyroidism, obesity, recurrent utis Presents to ED after fall at home. Patient does not recall all events. Currently reports she feels confused, generalized weakness, and foul smelling urine. States she did take her antibiotics after recent discharge, but appears uncertain. Son is not sure either. Son reports patientn has multiple episodes like this, she gets recurrent UTIs shortly after recovering. + for risk factors: incontinence, limited mobility, less than ideal hygiene. In the ED, patient noted to have pyuria/bacteruria, No other evidence of sepsis. She was noted to have confusion as well. Allergies Sulfa (Sulfonamide Antibiotics) Allergy (Verified 11/19/19 23:58) Shortness of breath sulfamethoxazole [From Bactrim] Allergy (Verified 11/19/19 23:58) Shortness of breath trimethoprim [From Bactrim] Allergy (Verified 11/19/19 23:58) Shortness of breath Home Medications: Buspirone HCl [Buspar] 30 mg PO BID 11/20/19 Clopidogrel Bisulfate [Plavix*] 75 mg PO DAILY 11/20/19 Duloxetine HCl 1 tab PO BID 11/20/19 Omeprazole 20 mg PO DAILY 11/20/19 Losartan Potassium [Cozaar*] 50 mg PO DAILY #30 tablet 11/22/19 Furosemide 20 mg PO DAILY 11/22/21 Levothyroxine Sodium [Levothyroxine] 100 mcg PO DAILY 11/22/21 Metformin HCl [Glucophage*] 500 mg PO BIDWM 11/22/21 Pravastatin [Pravachol*] 20 mg PO DAILY 11/22/21 Cefpodoxime Proxetil 100 mg PO BID 5 Days #10 tablet 11/24/21 - Past Medical/Surgical History Diabetic: No -: COPD -: HTN -: Afib -: bi leg stents -: gastric bypass -: hysterectomy -: L hip and knee replacement -: R foot sx - Family History Family History: Reviewed- Non-Contributory - Social History Smoking Status: Never smoker Alcohol use: No CD- Drugs: No Caffeine use: No Place of Residence: Home (alone, has caregiver come ~24hrs / week) Review of Systems 10-point ROS is otherwise unremarkable Physical Examination - Physical Exam General: Alert, In no apparent distress, Oriented x2 HEENT: Sclerae nonicteric Neck: Supple, No LAD Respiratory: Clear to auscultation bilaterally, Normal air movement Cardiovascular: Regular rate/rhythm, Edema (trace bilateral to knees) Gastrointestinal: Soft and benign, Non-distended, No tenderness Musculoskeletal: No contractures Integumentary: No rashes, No significant lesion Neurological: Normal speech, Normal strength at 5/5 x4 extr, Sensation intact, Normal affect - Studies Laboratory Data (last 24 hrs) 12/08/21 14:05: PT 11.4, INR 1.04 12/08/21 14:05: Sodium 138, Potassium 4.4, BUN 21 H, Creatinine 0.92, Glucose 160 H, Magnesium 2.0, Total Bilirubin 0.5, AST 24, ALT 33, Alkaline Phosphatase 91 12/08/21 13:45: WBC 11.5 H, Hgb 13.6, Hct 42.1, Plt Count 177 Assessment and Plan - Advance Directives Does patient have a Living Will: No Does patient have a Durable POA for Healthcare: No Physician Review Additional Text: Problem List acute metabolic encephalopathy secondary to UTI fall HTN HLD obese GERD h/o CVA h/o hypothyroidism CKD2 Paroxysmal afib, not on anticoagulation recently discharged for similar presentation. UA concerning for UTI, cultures without growth, possibly from recent antibiotic use confused. spoke with son over phone, he checks in occasionally but was out of town. He saw patient yesterday and was in usual state of health fall likely secondary to encephalopathy / UTI, BP ok h/o recurrent UTIs h/o resistant UTIs, ESBL, enterobacter treat with merrem for now ID consult given recurrence son states has seen urology recently, and was told nothing to do/offer beyond treatment for UTI confirm home meds, restart patient does not appear septic VTE: lovenox Code: full Dispo: home, ~3 days Time Spent Managing Pts Care (In Minutes): 75
[2021-12-08] MEDS: ENOXAPARIN 40 MG/0.4 ML SQ SCH (20:39)
[2021-12-08] MEDS: NA CHLORIDE 0.9% 1,000 ML IV SCH (20:40)
[2021-12-08] MEDS ORDERED: ENOXAPARIN 40 MG/0.4 ML SQ ONE (20:40)
[2021-12-08 20:54] LABS: Platelet Estimate ADEQ; White Blood Cell Scan OK (OK)
[2021-12-08 20:55] LABS: Blood Morphology Comment NOT SEEN (NOT SEEN)
[2021-12-08] MEDS: BUSPIRONE HCL 15 MG TABLET PO SCH (21:00)
[2021-12-08] MEDS ORDERED: HOME MED 1 EA UNK (Duloxetine Hcl [Duloxetine Hcl] 60 MG Capsule.Dr) PO SCH (21:00)
[2021-12-08] MEDS ORDERED: DULOXETINE 30 MG CAP PO SCH (21:00)
[2021-12-09] MEDS ORDERED: Meropenem 1000 MG/VIAL IV ONE ×2 (00:34→09:17)
[2021-12-09] MEDS ORDERED: DULOXETINE 30 MG CAP PO ONE (00:34)
[2021-12-09] MEDS ORDERED: NA CHLORIDE 0.9% 100 ML ONE ×2 (00:36→09:18)
[2021-12-09] MEDS ORDERED: BUSPIRONE HCL 15 MG TABLET ONE (00:48)
[2021-12-09] MEDS: Meropenem 1,000 MG in NA CHLORIDE 0.9% 100 ML IV SCH ×2 (01:05→10:20)
[2021-12-09 04:33] LABS: Absolute Lymphocytes (CBC) 1.7 K/uL (0.7-4.9); Hematocrit 36.4 % (36.0-45.0); Lymphocytes % 21.6 % (15.3-44.8); MPV 8.4 fL (7.6-11.3); RBC Red Blood Cell Count 3.72 M/uL (3.86-4.86)
[2021-12-09 04:40] LABS: Bilirubin Total 0.3 mg/dL (0.2-1.0); Magnesium 1.9 mg/dL (1.8-2.4); Potassium 4.1 mmol/L (3.5-5.1); Protein, Total 6.5 g/dL (6.4-8.2)
--- NOTE | 2021-12-09 06:18 | EKG ---
Test Date: 2021-12-08 Test Time: 13:20:26 [employer]wains Mate: JUN MEASUREMENT RESULTS: Intervals: Rate: 71 UT: 158 QRSD: 122 QT: 416 QTc: 452 [place]: P: 75 UT: 158 QRS: -66 T: 2 INTERPRETIVE STATEMENTS: Normal sinus rhythm Left axis deviation Cannot rule out Anterior infarct, age undetermined Abnormal ECG Compared to ECG 11/22/2021 15:14:59 Myocardial infarct finding now present Left ventricular hypertrophy no longer present ST (T wave) deviation no longer present Possible ischemia no longer present Electronically Signed On 12-09-21 06:16:16 CDT by Osbaldo Duran
[2021-12-09] MEDS ORDERED: LEVOTHYROXINE SOD 0.1 MG TAB PO SCH (06:30)
--- NOTE | 2021-12-09 07:12 | P.PN ---
Date of Service: 12/09/21 Subjective: feels ok, no significant change, didn't sleep well confused ROS: 10 point ROS as noted above, otherwise negative Physical exam GEN: oriented to self/place, confused, NAD HEENT: Normal conjunctiva, sclera anicteric CV: Regular rate and rhythm, no edema Pulm: Nonlabored respirations on room air ABD: Soft, nontender, nondistended Neuro: moves extremities, no focal deficit Problem List acute metabolic encephalopathy secondary to UTI fall HTN HLD obese GERD h/o CVA h/o hypothyroidism CKD2 Paroxysmal afib, not on anticoagulation recently discharged for similar presentation. UA concerning for UTI, cultures without growth, possibly from recent antibiotic use confused. spoke with son over phone, he checks in occasionally but was out of town. He saw patient yesterday and was in usual state of health fall likely secondary to encephalopathy / UTI, BP ok h/o recurrent UTIs h/o resistant UTIs, ESBL, enterobacter continue merrem for now ID consult given recurrence son states has seen urology recently, and was told nothing to do/offer beyond treatment for UTI confirm home meds, restart patient does not appear septic VTE: lovenox Code: full Dispo: home, ~2 days Time Spent Managing Pts Care (In Minutes): 35
[2021-12-09] MEDS ORDERED: PANTOPRAZOLE 40MG TABLET PO SCH (09:00)
[2021-12-09] MEDS ORDERED: HOME MED 1 EA UNK (Levothyroxine Sodium [Levothyroxine] 100 MCG Capsule) PO SCH (09:00)
[2021-12-09] MEDS ORDERED: HOME MED 1 EA UNK (Omeprazole [Omeprazole] 20 MG Capsule.Dr) PO SCH (09:00)
[2021-12-09] MEDS ORDERED: HOME MED 1 EA UNK (Pravastatin [Pravachol*] 40 MG/TAB Tab) PO SCH (09:00)
[2021-12-09] MEDS ORDERED: ATORVASTATIN 10 MG TAB PO SCH (09:00)
[2021-12-09] MEDS ORDERED: CLOPIDOGREL 75 MG TABLET ONE (09:17)
[2021-12-09] MEDS ORDERED: ENOXAPARIN 40 MG/0.4 ML SQ ONE (09:18)
[2021-12-09] MEDS: BUSPIRONE HCL 15 MG TABLET PO SCH ×2 (10:27→21:38)
[2021-12-09] MEDS: ENOXAPARIN 40 MG/0.4 ML SQ SCH (10:27)
[2021-12-09] MEDS: CLOPIDOGREL 75 MG TABLET PO SCH (10:28)
[2021-12-09] MEDS: NA CHLORIDE 0.9% 1,000 ML IV SCH ×3 (10:36→23:02)
[2021-12-09] MEDS ORDERED: NA CHLORIDE 0.9% 1,000 ML ONE (10:41)
--- NOTE | 2021-12-09 16:55 | CON ---
History Of Present Illness: This is a 66-year-old female with longstanding history of diabetes johni tus, hypertension, hyperlipidemia, sleep apnea, atrial fibrillation, hypothyroidism, morbid obesity w ith recurrent urinary tract infection, coming in with urosepsis, currently being treated with meropen em. The patient denies any headache, nausea, vomiting, chest pain, abdominal pain, constipation, or diarrhea. Past Medical History: As per HPI. Social History: Tobacco positive. Alcohol negative. Family History: Noncontributory. Medications: Meropenem. See MAR for other medications. Allergies: SULFA DRUGS. Review of Systems: A 10-point review was performed. Physical Examination: General: This is a 66-year-old female, seen in the emergency room holding room 17, lying in the stre tcher, not in any acute distress except currently on oxygen. Vital Signs: Temperature 97.1, respirations 18, blood pressure 140/76, and oxygen sats 97% on 4 L. HEENT: Unremarkable. Neck: Supple. Lungs: Basal crackles. Heart: S1, S2. Regular. Abdomen: Soft and nontender. Bowel sounds present. Extremities: Trace edema. Laboratory Data: Shows WBC 8 down from 11.5, hemoglobin 12, and platelets are 188. Chemistry shows sodium 144, potassium 4.1, chloride 108, bicarb 33, BUN 17, creatinine 0.8, glucose 144, and albumin is 3. Assessment And Plan: This is a 66-year-old female with recurrent urinary tract infection and diabete s mellitus, coming in with urosepsis, currently being treated with meropenem. The patient also has c hronic obstructive pulmonary disease with sleep apnea, moderate protein-calorie malnourishment and mo rbid obesity. We will continue antibiotic for at least 5 days. Pending culture results. Urine cult ure shows more than 100,000 bacteria with 4+ gram-negative rods, most likely Escherichia coli or Pseu domonas. The patient is on proper antibiotic at this time and will be addressed accordingly. Thank you, Dr. Holloway for consult. NF/MODL Voice ID: [id number] Report ID: [id number]
[2021-12-09] MEDS: VANCOMYCIN 2 GM in NA CHLORIDE 0.9% 500 ML IVPB SCH (18:41)
[2021-12-10 06:09] LABS: Hematocrit 34.4 % (36.0-45.0); MPV 8.1 fL (7.6-11.3); RBC Red Blood Cell Count 3.56 M/uL (3.86-4.86)
[2021-12-10 06:36] LABS: Bilirubin Total 0.4 mg/dL (0.2-1.0); Magnesium 1.9 mg/dL (1.8-2.4); Protein, Total 6.5 g/dL (6.4-8.2)
--- NOTE | 2021-12-10 06:43 | P.PN ---
Date of Service: 12/10/21 Subjective: feels better mild confusion ROS: 10 point ROS as noted above, otherwise negative Physical exam GEN: oriented to self/place, mildly confused, NAD HEENT: Normal conjunctiva, sclera anicteric CV: Regular rate and rhythm, no edema Pulm: Nonlabored respirations on room air ABD: Soft, nontender, nondistended Neuro: moves extremities, no focal deficit Problem List acute metabolic encephalopathy secondary to UTI fall HTN HLD obese GERD h/o CVA h/o hypothyroidism CKD2 Paroxysmal afib, not on anticoagulation recently discharged for similar presentation. UA concerning for UTI, cultures without growth on last admission fall likely secondary to encephalopathy / UTI, BP ok h/o recurrent UTIs; h/o resistant UTIs, ESBL, enterobacter continue merrem for now ID consult given recurrence; blood cultures: CONS; suspect contamination repeat blood cultures son states has seen urology recently, and was told nothing to do/offer beyond treatment for UTI confirm home meds VTE: lovenox Code: full Dispo: home, ~2 days pending culture results / repeat blood Time Spent Managing Pts Care (In Minutes): 35
[2021-12-10] MEDS: CLOPIDOGREL 75 MG TABLET PO SCH (08:04)
[2021-12-10] MEDS: ENOXAPARIN 40 MG/0.4 ML SQ SCH (08:04)
[2021-12-10] MEDS: BUSPIRONE HCL 15 MG TABLET PO SCH ×2 (08:04→21:13)
[2021-12-10] MEDS: NA CHLORIDE 0.9% 1,000 ML IV SCH (08:12)
[2021-12-10] MEDS: VANCOMYCIN 2 GM in NA CHLORIDE 0.9% 500 ML IVPB SCH (13:14)
[2021-12-10] MEDS: Meropenem 1,000 MG in NA CHLORIDE 0.9% 100 ML IV SCH (18:16)
[2021-12-10 20:10] VITALS: BMI 52.9
[2021-12-11] MEDS: Meropenem 1,000 MG in NA CHLORIDE 0.9% 100 ML IV SCH ×3 (01:59→17:39)
[2021-12-11] MEDS: VANCOMYCIN 2 GM in NA CHLORIDE 0.9% 500 ML IVPB SCH (06:00)
--- NOTE | 2021-12-11 06:20 | P.PN ---
Date of Service: 12/11/21 Subjective: improving, no new complaints ROS: 10 point ROS as noted above, otherwise negative Physical exam GEN: Alert, oriented, NAD HEENT: Normal conjunctiva, sclera anicteric CV: Regular rate and rhythm, no edema Pulm: Nonlabored respirations on room air ABD: Soft, nontender, nondistended Neuro: moves extremities, no focal deficit Problem List acute metabolic encephalopathy secondary to UTI Recent fall HTN HLD obese GERD h/o CVA h/o hypothyroidism CKD2 Paroxysmal afib, not on anticoagulation recently discharged for similar presentation. At that time UA concerning for UTI, however cultures were without growth. Discharged with Cefdinir fall likely secondary to encephalopathy / UTI. h/o recurrent UTIs; h/o resistant UTIs, ESBL, enterobacter continue merrem for now to cover for above ID consult given recurrence; blood cultures: CONS; suspect contamination Ur Cx pending, suspect results to be back today, 4+ GNR repeat blood cultures ordered son states has seen urology recently, and was told nothing to do/offer beyond treatment for UTI confirm home meds VTE: lovenox Code: full Dispo: home, likely tomorrow pending culture results / repeat blood Time Spent Managing Pts Care (In Minutes): 35
[2021-12-11 07:05] LABS: Potassium 3.8 mmol/L (3.5-5.1)
[2021-12-11] MEDS ORDERED: POTASSIUM CL SA 10 MEQ TAB PO ONE (09:00)
[2021-12-11] MEDS: ENOXAPARIN 40 MG/0.4 ML SQ SCH (09:10)
[2021-12-11] MEDS: CLOPIDOGREL 75 MG TABLET PO SCH (09:18)
[2021-12-11] MEDS: BUSPIRONE HCL 15 MG TABLET PO SCH ×2 (09:18→20:15)
[2021-12-11] MEDS ORDERED: Meropenem 1000 MG/VIAL IV ONE (09:21)
[2021-12-11] MEDS ORDERED: NA CHLORIDE 0.9% 100 ML ONE (09:23)
[2021-12-12] MEDS: VANCOMYCIN 2 GM in NA CHLORIDE 0.9% 500 ML IVPB SCH (00:38)
[2021-12-12] MEDS: Meropenem 1,000 MG in NA CHLORIDE 0.9% 100 ML IV SCH ×3 (00:39→17:00)
[2021-12-12 04:25] LABS: Potassium 3.9 mmol/L (3.5-5.1)
[2021-12-12] MEDS ORDERED: HYDRALAZINE HCL 20 MG/ML VIAL IV PRN (05:00)
--- NOTE | 2021-12-12 06:24 | P.PN ---
Date of Service: 12/12/21 Subjective: improving, no new complaints slight confusion ROS: 10 point ROS as noted above, otherwise negative Physical exam GEN: Alert, oriented, mild confusion; NAD HEENT: Normal conjunctiva, sclera anicteric CV: Regular rate and rhythm, no edema Pulm: Nonlabored respirations on room air ABD: Soft, nontender, nondistended Neuro: moves extremities, no focal deficit Problem List acute metabolic encephalopathy secondary to UTI acute cystitis, recurrent, with recent antibiotic usage / failed outpatient treatment Recent fall HTN HLD obese GERD h/o CVA h/o hypothyroidism CKD2 Paroxysmal afib, not on anticoagulation recently discharged for similar presentation. At that time UA concerning for UTI, however cultures were without growth. Discharged with Cefdinir fall likely secondary to encephalopathy / UTI. h/o recurrent UTIs; h/o resistant UTIs, ESBL, enterobacter continue merrem for now to cover for above. vanc added 12/11 for bacteremia ID consult given recurrence; blood cultures: CONS; suspect contamination Ur Cx eneterobacter. Blood: GPC repeat blood cultures ordered son states has seen urology recently, and was told nothing to do/offer beyond treatment for UTI confirm home meds PT recommend SNF, pt with signifiacnt fall history lately. SS/CM consulted will need 2 weeks total IV abx for bacteremia VTE: lovenox Code: full Dispo: SNF pending culture results / repeat blood Time Spent Managing Pts Care (In Minutes): 35
[2021-12-12] MEDS: ENOXAPARIN 40 MG/0.4 ML SQ SCH (09:00)
[2021-12-12] MEDS: FUROSEMIDE 20 MG TABLET PO SCH (09:00)
[2021-12-12] MEDS: BUSPIRONE HCL 15 MG TABLET PO SCH ×2 (09:00→21:00)
[2021-12-12] MEDS ORDERED: POTASSIUM 25 MEQ EFFERV TAB PO ONE (09:00)
[2021-12-12] MEDS: CLOPIDOGREL 75 MG TABLET PO SCH (09:00)
[2021-12-12] MEDS: LOSARTAN POTASSIUM 50 MG TABLET PO SCH (09:00)
[2021-12-12] MEDS ORDERED: Meropenem 1000 MG/VIAL IV ONE (09:59)
[2021-12-12] MEDS ORDERED: NA CHLORIDE 0.9% 100 ML ONE (10:02)
--- NOTE | 2021-12-12 16:30 | P.PN ---
Subjective Date of Service: 12/12/21 Patient seen and examined at bedside, states she still having some burning with urination/lower back pain. Patient afebrile and hemodynamically stable. WBC within normal range. Review of Systems 10-point ROS is otherwise unremarkable Physical Examination - Vital Signs Temperature: 98.5 F Blood Pressure: 128/88 Pulse: 89 Respirations: 18 Pulse Ox (%): 96 - Physical Exam General: Alert, Oriented x3, Obese HEENT: Normocephalic Neck: Supple Respiratory: Clear to auscultation bilaterally, Normal air movement Cardiovascular: Regular rate/rhythm, Normal S1 S2, Abnormal S3 Gastrointestinal: Normal bowel sounds, Non-distended Musculoskeletal: No clubbing, No swelling, No contractures Assessment And Plan - Plan Antibiotics: Vancomycin: 12/09current Meropenem: urrent Assessment/plan Recurrent urinary tract infection -Urine culture growing Enterobacter Colace, sensitive to fluoroquinolones and meropenem. Avoid fluoroquinolones as patient has history of atrial fibrillation. Recommend continuing meropenem for [address] abdomen pelvis with no acute abnormalities Bacteremia Blood cultures obtained on 12/08 grew staph hominis in 4 out of 4 bottles oxacillin resistant. Recommend continuing vancomycin for 2 weeks. Negative blood cultures obtained on 12/10. Patient will need PICC line. Recommend transfer to LTAC/custodial facility for continuation of antibiotics. Hypothyroidism Continue levothyroxine Diabetes Strict glucose monitoring needed for proper infection control Plan of care discussed with Dr. Zaragoza Thank you for consultation
[2021-12-12] MEDS ORDERED: VANCOMYCIN 1.75 GM in NA CHLORIDE 0.9% 500 ML IVPB SCH (18:00)
[2021-12-12] MEDS ORDERED: VANCOMYCIN 2 GM in NA CHLORIDE 0.9% 500 ML IVPB SCH (23:00)
[2021-12-13] MEDS: Meropenem 1,000 MG in NA CHLORIDE 0.9% 100 ML IV SCH ×2 (02:34→09:46)
[2021-12-13 06:16] LABS: Potassium 4.1 mmol/L (3.5-5.1)
[2021-12-13] MEDS: CLOPIDOGREL 75 MG TABLET PO SCH (09:45)
[2021-12-13] MEDS: ENOXAPARIN 40 MG/0.4 ML SQ SCH (09:45)
[2021-12-13] MEDS: FUROSEMIDE 20 MG TABLET PO SCH (09:45)
[2021-12-13] MEDS: LOSARTAN POTASSIUM 50 MG TABLET PO SCH (09:46)
[2021-12-13] MEDS ORDERED: NA CHLORIDE 0.9% 100 ML ONE (09:46)
[2021-12-13] MEDS: BUSPIRONE HCL 15 MG TABLET PO SCH ×2 (09:46→20:21)
[2021-12-13] MEDS ORDERED: levoFLOXacin 750 MG TAB PO SCH (13:00)
--- NOTE | 2021-12-13 15:00 | P.PN ---
Subjective Date of Service: 12/13/21 Patient has no new complaints. No recorded fever. Physical Examination - Vital Signs Temperature: 98.3 F Blood Pressure: 136/84 Pulse: 72 Respirations: 18 Pulse Ox (%): 95 Assessment And Plan - Plan Physical exam GEN: Alert, oriented, NAD HEENT: Normal conjunctiva, sclera anicteric CV: Regular rate and rhythm, no edema Pulm: Nonlabored respirations on room air ABD: Soft, nontender, nondistended Neuro: moves extremities, no focal deficit Problem List acute metabolic encephalopathy secondary to UTI acute cystitis, recurrent, with recent antibiotic usage / failed outpatient treatment Recent fall HTN HLD obese GERD h/o CVA h/o hypothyroidism CKD2 Paroxysmal afib, not on anticoagulation Plan: Fall likely secondary to encephalopathy / UTI. h/o recurrent UTIs; h/o resistant UTIs, ESBL, enterobacter. Urine culture is growing Enterobacter sensitive to fluoroquinolones. Change IV meropenem to Levaquin ID consult given recurrence; blood cultures: CONS; suspect contamination. No need for treatment per ID-Dr. Zaragoza. Repeat blood cultures: No growth son states has seen urology recently, and was told nothing to do/offer beyond treatment for UTI confirm home meds PT recommend SNF, pt with signifiacnt fall history lately. SS/CM consulted VTE: lovenox Code: full Dispo: SNF
--- NOTE | 2021-12-13 15:06 | P.PN ---
Subjective Date of Service: 12/13/21 Patient seen and examined at bedside, no acute events. Review of Systems 10-point ROS is otherwise unremarkable Physical Examination - Vital Signs Temperature: 98.3 F Blood Pressure: 136/84 Pulse: 72 Respirations: 18 Pulse Ox (%): 95 - Studies Laboratory Last Values WBC 11.5 K/uL (4.3-10.9) H 12/08/21 13:45 RBC 4.27 M/uL (3.86-4.86) 12/08/21 13:45 Hgb 13.6 g/dL (12.0-15.0) 12/08/21 13:45 Hct 42.1 % (36.0-45.0) 12/08/21 13:45 MCV 98.5 fL (80-100) 12/08/21 13:45 MCH 31.9 pg (27.0-35.0) 12/08/21 13:45 MCHC 32.4 g/dL (32.0-36.0) 12/08/21 13:45 RDW 13.8 % (12.1-15.2) 12/08/21 13:45 Plt Count 177 K/uL (152-406) 12/08/21 13:45 MPV 9.3 fL (7.6-11.3) 12/08/21 13:45 Neutrophils % 70.4 % (41.7-73.7) 12/08/21 13:45 Lymphocytes % 17.0 % (15.3-44.8) 12/08/21 13:45 Monocytes % 10.2 % (3.3-12.3) 12/08/21 13:45 Eosinophils % 1.7 % (0-4.4) 12/08/21 13:45 Basophils % 0.7 % (0-1.3) 12/08/21 13:45 Absolute Neutrophils 8.1 K/uL (1.8-8.0) H 12/08/21 13:45 Absolute Lymphocytes 1.9 K/uL (0.7-4.9) 12/08/21 13:45 Absolute Monocytes 1.2 K/uL (0.1-1.3) 12/08/21 13:45 Absolute Eosinophils 0.2 K/uL (0-0.5) 12/08/21 13:45 Absolute Basophils 0.1 K/uL (0-0.5) 12/08/21 13:45 Platelet Estimate Adeq 12/08/21 13:45 Morphology Comment Not seen (NOT SEEN) 12/08/21 13:45 PT 11.4 SECONDS (9.5-12.5) 12/08/21 14:05 INR 1.04 12/08/21 14:05 Sodium 138 mmol/L (136-145) 12/08/21 14:05 Potassium 4.4 mmol/L (3.5-5.1) 12/08/21 14:05 Chloride 99 mmol/L (98-107) 12/08/21 14:05 Carbon Dioxide 35 mmol/L (21-32) H 12/08/21 14:05 Anion Gap 8.4 mEq/L (5.0-15.0) 12/08/21 14:05 BUN 21 mg/dL (7-18) H 12/08/21 14:05 Creatinine 0.92 mg/dL (0.55-1.3) 12/08/21 14:05 Est GFR (CKD-EPI) 68 ml/min (=/>90) L 12/08/21 14:05 Glucose 160 mg/dL (74-106) H 12/08/21 14:05 Lactic Acid 1.4 mmol/L (0.4-2.0) 12/08/21 13:45 Calcium 9.6 mg/dL (8.5-10.1) 12/08/21 14:05 Magnesium 2.0 mg/dL (1.8-2.4) 12/08/21 14:05 Total Bilirubin 0.5 mg/dL (0.2-1.0) 12/08/21 14:05 Direct Bilirubin 0.1 mg/dL (0-0.2) 12/08/21 14:05 AST 24 U/L (15-37) 12/08/21 14:05 ALT 33 U/L (12-78) 12/08/21 14:05 Alkaline Phosphatase 91 U/L (45-117) 12/08/21 14:05 Creatine Kinase 46 U/L (26-192) 12/08/21 14:05 Troponin I High Sens 9.2 pg/mL (<58.9) 12/08/21 14:05 NT-Pro-B Natriuret Pep 169 pg/mL (<125) H 12/08/21 14:05 Serum Total Protein 7.7 g/dL (6.4-8.2) 12/08/21 14:05 Albumin 3.6 g/dL (3.4-5.0) 12/08/21 14:05 Globulin 4.1 g/dL (2.3-3.5) H 12/08/21 14:05 Albumin/Globulin Ratio 0.9 (1.1-1.8) L 12/08/21 14:05 Urine pH 6.5 (5.0-7.0) 12/08/21 14:25 Ur Specific Jakin 1.025 (1.005-1.030) 12/08/21 14:25 Glucose (UA)(Auto) Negative (Negative) 12/08/21 14:25 Urine Ketones Trace (Negative) H 12/08/21 14:25 Urine Blood Negative (Negative) 12/08/21 14:25 Urine Nitrite Positive (Negative) H 12/08/21 14:25 Ur Leukocyte Esterase 1+ (Negative) H 12/08/21 14:25 Urine RBC None seen /HPF (NONE SEEN) 12/08/21 14:20 Urine WBC 20-50 /HPF (<5) H 12/08/21 14:20 Ur Squamous Epith Cells <5 /HPF (NONE SEEN) 12/08/21 14:20 Urine Bacteria >50 /HPF (<20) H 12/08/21 14:20 Urine Culture Reflexed Reflexed 12/08/21 14:20 Urine Total Protein 1+ (Negative) H 12/08/21 14:25 SARS-CoV-2 Rap RNA(RT-PCR) Negative (NEGATIVE) 12/08/21 15:28 Smear Scan Ok (OK) 12/08/21 13:45 Assessment And Plan - Plan Antibiotics: Levaquin: urrent Vancomycin: Meropenem: / Assessment/plan Recurrent urinary tract infection -Urine culture growing Enterobacter Colace, sensitive to fluoroquinolones and meropenem. QTC normal, 452. Continue Levaquin for [address] abdomen pelvis with no acute abnormalities Bacteremia Blood cultures obtained on 12/08 grew staph hominis in 4 out of 4 bottles oxacillin resistant. Repeat cultures obtained on 611 showed no growth. Original blood cultures likely contaminated. Hypothyroidism Continue levothyroxine Diabetes Strict glucose monitoring needed for proper infection control Plan of care discussed with Dr. Zaragoza Thank you for consultation
--- NOTE | 2021-12-13 18:10 | P.DS ---
Admission Date: 12/08/21 Discharge Date: 12/13/21 Disposition: TRANSFER TO SNF - REHAB Discharge Condition: FAIR Brief History of Present Illness: 66yo F, PMH: DM2, HTN, HLD, Pafib, hypothyroidism, obesity, recurrent uti presented to ED after fall at home. Patient did not recall all events but felt confused. She endorsed generalized weakness, and foul smelling urine. States she did take her antibiotics after recent discharge, but appears uncertain. Son was not sure either. Son reports patient have had multiple similar episodes, and has a history of recurrent UTIs. She has a history of incontinence and limited mobility. In the ED, patient noted to have pyuria/bacteruria, No other evidence of sepsis. She was noted to have confusion as well. Patient was admitted for further management. Hospital Course: Diagnosis acute metabolic encephalopathy secondary to UTI acute cystitis, recurrent, with recent antibiotic usage / failed outpatient treatment Recent fall HTN HLD obese GERD h/o CVA h/o hypothyroidism CKD2 Paroxysmal afib, not on anticoagulation Plan: Fall likely secondary to encephalopathy / UTI. h/o recurrent UTIs; h/o resistant UTIs, ESBL, enterobacter. Patient admitted to the medical floor and started on IV antibiotics. Urine culture grew Enterobacter sensitive to fluoroquinolones. She was treated with meropenem for several days. ID consulted given UTI recurrence; blood cultures grew CONS; suspected contamination. No need for treatment per ID-Dr. Zaragoza. Repeat blood cultures: No growth son states patient has seen urology recently, and was told nothing to offer beyond treatment for UTI IV meropenem changed to oral Levaquin according to antibiotic sensitivity. Patient evaluated by PT and SNF recommended. She has been accepted to SNF for rehab. She is clinically stable for discharge. Vital Signs/Physical Exam: Temp Pulse Resp BP Pulse Ox 98.5 F 77 18 113/63 95 12/13/21 16:00 12/13/21 16:00 12/13/21 16:00 12/13/21 16:00 12/13/21 16:00 General: Alert, In no apparent distress, Oriented x3 HEENT: Mucous membr. moist/pink Neck: JVD not distended Respiratory: Clear to auscultation bilaterally, Normal air movement Cardiovascular: No edema, Regular rate/rhythm, Normal S1 S2 Gastrointestinal: Normal bowel sounds, Soft and benign, Non-distended Musculoskeletal: No swelling Integumentary: No rashes Neurological: Normal strength at 5/5 x4 extr Laboratory Data at Discharge: WBC 7.8 K/uL (4.3-10.9) 12/10/21 04:59 Hgb 11.8 g/dL (12.0-15.0) L 12/10/21 04:59 Hct 34.4 % (36.0-45.0) L 12/10/21 04:59 Plt Count 187 K/uL (152-406) 12/10/21 04:59 PT 11.4 SECONDS (9.5-12.5) 12/08/21 14:05 INR 1.04 12/08/21 14:05 Sodium 142 mmol/L (136-145) 12/13/21 05:36 Potassium 4.1 mmol/L (3.5-5.1) 12/13/21 05:36 BUN 11 mg/dL (7-18) 12/13/21 05:36 Creatinine 0.68 mg/dL (0.55-1.3) 12/13/21 05:36 Glucose 165 mg/dL (74-106) H 12/13/21 05:36 Magnesium 1.9 mg/dL (1.8-2.4) 12/10/21 04:59 Total Bilirubin 0.4 mg/dL (0.2-1.0) 12/10/21 04:59 AST 19 U/L (15-37) 12/10/21 04:59 ALT 25 U/L (12-78) 12/10/21 04:59 Alkaline Phosphatase 79 U/L (45-117) 12/10/21 04:59 Home Medications: Buspirone HCl [Buspar] 30 mg PO BID 11/20/19 Clopidogrel Bisulfate [Plavix*] 75 mg PO DAILY 11/20/19 Duloxetine HCl 1 tab PO BID 11/20/19 Omeprazole 20 mg PO DAILY 11/20/19 Losartan Potassium [Cozaar*] 50 mg PO DAILY #30 tablet 11/22/19 Furosemide 20 mg PO DAILY 11/22/21 Levothyroxine Sodium [Levothyroxine] 100 mcg PO DAILY 11/22/21 Metformin HCl [Glucophage*] 500 mg PO BIDWM 11/22/21 Pravastatin [Pravachol*] 20 mg PO DAILY 11/22/21 levoFLOXacin [Levaquin*] 750 mg PO DAILY #5 tab 12/13/21 Diet: ADA Activity: Fall precautions Followup: NONE,NONE [Primary Care Provider] - 1-2 Weeks Time spent managing pt's care (in minutes): 38
[2021-12-13 20:24] VITALS: BP 107/76; TEMP 99.8
[2021-12-13 20:26] VITALS: O2SAT 96
== END 2021-12-13 23:20 | DRG 689 ==
LOC: ER 11:52 → ERHOLD 16:35 → 2ND 12-09 17:04
PROVIDERS: ADMIT Hospitalist; ATTEND Internal Medicine
DX: N39.0 Urinary tract infection, site not specified (principal); G93.41 Metabolic encephalopathy; Z68.43 Body mass index [BMI] 50.0-59.9, adult; B96.89 Other specified bacterial agents as the cause of diseases classified elsewhere; J44.9 Chronic obstructive pulmonary disease, unspecified; E66.01 Morbid (severe) obesity due to excess calories; E11.22 Type 2 diabetes mellitus with diabetic chronic kidney disease; I12.9 Hypertensive chronic kidney disease with stage 1 through stage 4 chronic kidney disease, or unspecified chronic kidney disease; N18.2 Chronic kidney disease, stage 2 (mild); Z79.4 Long term (current) use of insulin; E78.5 Hyperlipidemia, unspecified; I48.0 Paroxysmal atrial fibrillation; E03.9 Hypothyroidism, unspecified; Z98.84 Bariatric surgery status; Z86.73 Personal history of transient ischemic attack (TIA), and cerebral infarction without residual deficits
CPT/HCPCS: 36415; 70450; 71045; 71250; 72125; 80048; 80053; 80076; 80202; 81003; 81015; 82550; 83605; 83735; 83880; 84145; 84484; 85025; 85027; 85610; 87040; 87077; 87086; 87088; 87186; 87205; 93005; 93970; 94760; 96365; 96366; 97110; 97116; 97161; 97530; 99284; J0360; J0696; J1650; J2185; J3370; J7030; J7040; U0003